=== PATIENT | female | born 1945 | race African-American/Black ===

== ENCOUNTER 2020-05-10 11:53 | Inpatient (IN) | payer MEDICARE, BC, SELFPAY ==
[2020-05-10] VITALS (18 sets, daily range): BP systolic 115–166; BP diastolic 51–76; PULSE 86–103; RESP 18–26; TEMP 36.4–36.8; O2SAT 92–100
--- NOTE | ~2020-05-10 | US_ITS ---
EXAMINATION: US abdomen complete DATE: 05/12/2020 16:05 INDICATION: Liver pathology. Ascites. TECHNIQUE: Multiple grayscale and Doppler ultrasound images of the abdomen were obtained. COMPARISON: None FINDINGS: The visualized portions of the head, body, and tail of the pancreas are normal. The liver i s normal without focal lesion. There is normal flow in main portal vein. The gallbladder is normal in size and contains gallstones. No gallbladder wall thickening or sonographic Urbina sign. The common duct is normal and measures 4 mm. The spleen is normal in size. The kidneys are normal in size. The i nferior vena cava is normal. Abdominal aorta is normal in caliber proximally. There is no ascites. Th ere is a right pleural effusion. IMPRESSION: 1. Cholelithiasis. No evidence of acute cholecystitis. 2. Right pleural effusion. Reviewed, dictated and finalized at location A. ULTING SALES EXECUTIVE
--- NOTE | ~2020-05-10 | XR_ITS ---
EXAMINATION: [id number] DATE: 05/13/2020 14:10 INDICATION: Right pleural effusion status post thoracentesis. TECHNIQUE: Frontal and lateral views of the chest were obtained. COMPARISON: Chest 2 views 05/11/2020 FINDINGS: There is a small right pleural effusion. There are airspace opacities in the lower lung zon es. No pneumothorax. There is mild scarring at left lung apex. Cardiomegaly is noted. IMPRESSION: 1. Small right pleural effusion with interval improvement. 2. Airspace opacities in the lower lung zones, consistent with atelectasis versus pneumonia. 3. Cardiomegaly. Reviewed, dictated and finalized at location A. OR ANALYTIC CONSULTANT IMPRESSION: 1. Small right pleural effusion with interval improvement. 2. Airspace opacities in the lower lung zones, consistent with atelectasis vers us pneumonia. 3. Cardiomegaly.
--- NOTE | ~2020-05-10 | US_ITS ---
EXAMINATION: US venous doppler [facility] DATE: 05/11/2020 11:11 INDICATION: Lower limb swelling TECHNIQUE: Grayscale ultrasound images without and with compression and Doppler ultrasound images of the bilateral lower extremity veins were obtained. COMPARISON: None. FINDINGS: The visualized portions of right common femoral vein, profunda (deep) femoral vein, femoral vein, pop liteal vein, posterior tibial veins, peroneal veins, gastrocnemius vein and greater saphenous vein ou tflow are patent. The visualized portions of left common femoral vein, profunda femoral vein, femoral vein, popliteal v ein, posterior tibial veins, peroneal veins, gastrocnemius vein and greater saphenous vein outflow ar e patent. IMPRESSION: 1. No deep venous thrombosis in either lower limb. Reviewed, dictated and finalized at location A. SORTER
--- NOTE | ~2020-05-10 | XR_ITS ---
EXAMINATION: XR chest 2V DATE: 05/11/2020 12:18 INDICATION: Cough, shortness of breath and wheezing TECHNIQUE: frontal and lateral views of the chest were obtained. COMPARISON: Chest radiograph dated 04/30/2018 FINDINGS: Opacity in the right mid to lower lung zone consistent with moderate sized pleural effusion and right basilar atelectasis and/or pneumonia. More subtle airspace opacity at the left lung base with obscur ation of the apex of the heart and left costophrenic angle. No pulmonary edema or pneumothorax. Cardi omegaly. Atherosclerotic aorta. Moderate degenerative skeletal changes in the spine and at both shoul ders. Surgical clips in the central abdomen. IMPRESSION: 1. Moderate-sized right pleural effusion with right basilar atelectasis and/or pneumonia. 2. Mild opacities at the lateral left lung base which could represent atelectasis, pneumonia, small l eft pleural effusion or some combination thereof. 3. Cardiomegaly. Reviewed, dictated and finalized at location A. HEALTH LPN IMPRESSION: 1. Moderate-sized right pleural effusion with right basilar atelectasis and/or pneumonia. 2. Mild opacities at the lateral left lung base which could represent atelectas is, pneumonia, small left pleural effusion or some combination thereof. 3. Cardiomegaly.
--- NOTE | ~2020-05-10 | US_ITS ---
EXAMINATION: US thoracentesis DATE: 05/13/2020 14:18 INDICATION: pleural effusion TECHNIQUE: The procedure and its risks, benefits, and alternatives were discussed with the patient. P otential risks discussed included bleeding, infection, and pneumothorax. The patient understood the r isks and agreed to proceed. The skin was prepped and draped in sterile fashion. 1% lidocaine was used for local anesthesia. Under ultrasound guidance, a 5 Fr catheter with trochar was advanced into the right pleural effusion. Fluid was aspirated. The catheter was removed, and a dressing was applied. Th ere were no immediate complications. FINDINGS: Ultrasound images demonstrate a right pleural effusion and the catheter within the fluid. IMPRESSION: 1. Successful ultrasound-guided thoracentesis yielding 850 mL of clear, yellow fluid. Reviewed, dictated and finalized at location A. BOILER OPERATOR
--- NOTE | ~2020-05-10 | CT_ITS ---
EXAMINATION: CT brain wo con DATE: 05/13/2020 10:28 INDICATION: Altered mental status. TECHNIQUE: Computed tomography (CT) of the head was performed without intravenous contrast. The mA wa s adjusted according to patient size. Iterative reconstruction technique was employed. The dose-lengt h product was 605.33 mGy-cm. COMPARISON: Head CT 01/23/2013 FINDINGS: There are scattered areas of low attenuation in the cerebral white matter. There is no intr acranial hemorrhage, acute infarction, or abnormal intracranial mass lesion. The ventricles are tae l in size. There are likely changes of at least right-sided ocular lens replacement surgery. There is mild mucosal thickening in right maxillary sinus. The mastoid air cells are normal. IMPRESSION: 1. Worsened mild nonspecific cerebral white matter disease, which likely represents chronic small ves janak ischemic disease. Reviewed, dictated and finalized at location A. TY SHERIFF LIEUTENANT IMPRESSION: 1. Worsened mild nonspecific cerebral white matter disease, which likely repres ents chronic small vessel ischemic disease.
--- NOTE | 2020-05-10 13:07 | PC.NURSE ---
Patient is a difficult stick, phlebotomy notified to come and obtain lab tests.
[2020-05-10 13:30] LABS: Mean Corpuscular HGB Conc 30.2 g/dl (32-36); Mean Corpuscular Hemoglobin 18.1 pg (26-34); Mean Corpuscular Volume 59.8 fl (80-100); Mean Platelet Volume 9.9 fl (7.4-10.4); Platelet Count Result 221 k/mm3 (150-375); Red Blood Count 2.49 M/mm3 (4.2-5.4); Red Cell Distribution Width 21.8 % (11.5-14.5); White Blood Count 5.3 K/mm3 (4.5-10.0)
[2020-05-10 13:31] LABS: Hematocrit 14.9 % (37.0-47.0); Hemoglobin 4.5 g/dL (12.0-15.0)
[2020-05-10 13:37] LABS: Alanine Aminotransferase 12 U/L (4-35); Albumin Level 3.2 g/dL (3.5-5.1); Alkaline Phosphatase 74 U/L (38-126); Anion Gap 5 mmol/L (8-16); Aspartate Amino Transferase 26 U/L (14-36); Bilirubin,Total 0.6 mg/dL (0.2-1.3); Blood Urea Nitrogen 45 mg/dL (7-17); Carbon Dioxide 19 mmol/L (22-30); Chloride 112 mmol/L (98-107); Estimated CRCL calculation 17 ml/min; Estimated Glomerular Filt Rate 28; Glucose 84 mg/dL (65-105); Sodium 136 mmol/L (137-145)
[2020-05-10 13:40] LABS: Immature Reticulocyte Fraction 22.5 % (3.0-15.9); Reticulocyte Hemoglobin Conten 15.7 pg (28.2-35.7); Reticulocyte Percent 2.09 % (0.7-4.3); Reticulocytes Absolute 0.05 B/L (32.2-175.7)
[2020-05-10 13:49] LABS: Lymphocytes Absolute Manual 0.79 K/mm3 (1.1-4.5); Monocytes Absolute Manual 0.15 K/mm3 (0.1-0.90); Monocytes Percent Manual 3 % (3-9); Neutrophils Percent Manual 82 % (46-73); Platelet Estimate Adequate (Adequate); Total Cells Counted 100
[2020-05-10 13:50] LABS: Anisocytosis 1+ (NORMAL); Hypochromasia 2+ (NORMAL); Microcytosis 1+ (NORMAL); Target Cells 2+ (NORMAL); Tear Drop Cells 1+ (NORMAL)
[2020-05-10 13:51] LABS: Macrocytosis 1+ (NORMAL); Ovalocytes 1+ (NORMAL)
--- NOTE | 2020-05-10 14:10 | ED.RECABL ---
HPI - Recheck/Abnormal Lab/Rx General Chief Complaint: Recheck/Abnormal Lab/Rx Stated Complaint: Needs Blood Transfusion Time Seen by Provider: 05/10/20 12:19 Source: patient and family Mode of arrival: ambulatory Limitations: no limitations History of Present Illness HPI narrative: 74-year-old female Presents to the ER stating that she had labs done by her primary care doctor last week and was called today and told to go to the hospital because she might need a blood transfusion She reports a long history of anemia She thinks she had a colonoscopy by Dr. Moreno a couple years ago which was not illuminating Current symptoms are generalized weakness which has been present for many weeks, a lot of diarrhea about 2 weeks ago which is now stopped but was never bloody or melanotic, easy fatigue and exertional dyspnea, and swelling in her feet Related Data Home Medications Medication Instructions Recorded Confirmed lisinopril-hydrochlorothiazide tablet 05/10/20 zolpidem 05/10/20 Allergies Allergy/AdvReac Type Severity Reaction Status Date / Time Penicillins Allergy Unknown Unknown Verified 05/10/20 12:04 Review of Systems Review of Systems: All systems reviewed & are unremarkable except as noted in HPI and below Constitutional: Constitutional: Denies chills, Reports fatigue, Denies fever(s), Denies headache(s) and Reports weakness Eyes: Eyes: Reports no additional eye complaints and Denies change in vision ENT: Denies headache(s), Denies epistaxis, Denies nasal congestion and Denies sore throat Cardiovascular: Cardiovascular: Denies chest pain, Denies leg edema, Denies palpitations and Denies dyspnea Respiratory: Respiratory: Denies cough, Reports dyspnea and Denies wheezing Gastrointestinal: Gastrointestinal: Denies abdominal pain, Reports diarrhea, Denies nausea and Denies vomiting Comments: No melena or hematochezia Genitourinary: Genitourinary: Denies hematuria, Denies urinary frequency and Denies dysuria Musculoskeletal: Musculoskeletal: Denies deformity, Denies arthralgias, Denies joint swelling, Denies muscle weakness and Denies numbness Integumentary/Breasts: Skin/Breast: Denies rash and Denies wounds Neurologic: Denies headache(s), Denies focal weakness, Denies numbness and Denies weakness Psychiatric: Psychiatric: Reports no additional psychiatric complaints Endocrine: Endocrine: Denies fatigue and Denies palpitations Hematologic/Lymphatic: Hematologic/Lymphatic: Denies easy bleeding and Denies easy bruising Allergic/Immunologic: Allergic/Immunologic: Denies wheezing PMFSH Social History Social History Second hand tobacco smoke exposure: No Alcohol intake: current Gender identity (if verbalized by the patient): Female Exam Const: General: no acute distress, well developed, alert and awake Orientation/consciousness: patient oriented x3 (alert) Other: Elderly, frail HENMT: Head: normocephalic and atraumatic Ears: external ears normal General nose exam: No nasal discharge present and no epistaxis Face and sinus: face symmetric Eyes: Conjunctivae: abnormal conjunctivae (Pale) Sclera: sclerae normal EOM: EOMs intact bilaterally Neck: Neck: normal visual inspection, supple and no JVD Chest: Chest palpation & inspection: deferred Resp: Effort & Inspection: normal respiratory effort Auscultation: clear to auscultation bilaterally, no rales, no rhonchi, no wheezes and other (BS =) Cardio: Rate: regular rate Rhythm: regular rhythm Heart sounds: no gallops and no murmurs GI: Inspection: normal to inspection GI Palp: Yes Soft to palpation and No Tenderness to palpation present (GI) Other: Soft, nontender, no masses Back/Spine/Pelvis: Thoracic/Lumbar Spine: thoracic and lumbar spine normal to inspection Skin: General skin exam: normal color and no rashes or lesions noted Neuro: General: patient oriented x3 (alert), moves all extremities and no focal motor deficits 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
--- NOTE | 2020-05-10 14:15 | PC.NURSE ---
Consent for blood transfusion form signed at this time.
[2020-05-10] MEDS: SODIUM CHLORIDE 0.9% IV 250 ML 30 ML IV CONT (14:42)
[2020-05-10] MEDS: TUBING, BLOOD PLUM PUMP TUBING 1 EACH XX (14:42)
--- NOTE | 2020-05-10 15:25 | ADMGEN ---
This patient, Alina Allen, was admitted to Medical Room 251-01. Patient/family oriented to hospital policies and general routines including ID bracelet, bed and alarms, visiting hours, pain management, procedures, bathroom and other care routines, personal items, smoking policy, room service/diet, and visiting hours. Information on how to activate the Rapid Response Team has been discussed. Patient/Family are encouraged to report perceived risks to care and to ask questions if they do not understand what they are told or what they should do.
[2020-05-10 16:19] LABS: Iron 12 ug/dL (37-170)
[2020-05-10 16:32] LABS: Percent Iron Saturation 3 % (20-50)
--- NOTE | 2020-05-10 16:57 | PM.IMHP ---
H&P: HPI History of Present Illness Date/Time: 05/10/20 16:57 Chief Complaint: low blood counts Narrative: Alina Allen is a 74 year old female who I have seen in the past. I saw her back in April 2018 when she was here with influenza pneumonia and anemia. The patient had a hemoglobin of 6.7 at that time and received a blood transfusion. The patient stated that she has chronic anemia for many years. She is also said that she has seen Dr. majano several times and that she was never told that she had a GI bleed. She does take a daily aspirin. She has quit taking naproxen since the last time that she was here. The patient has not noticed any dark stools or any blood in her stool. She is not vomiting. She is not nauseated. Patient has been feeling weak that is been going on for a while. She had diarrhea for about 2 weeks and it stopped recently but has not noticed any blood in her stool. She is easily fatigued and has exertional dyspnea and she has swelling in her feet. The patient stated that she recently went to her primary care doctor's office . She recently had some lab work. The patient was notified today from her primary care doctor's office that she needed to go to the emergency room and get a blood transfusion as her blood counts are low. She is hemodynamically stable. Her pulse ox was 94% respirations 24 pulse rate was 100 blood pressure 150/69. Her H&H was noted to be 4.5 and 14.9. Creatinine 2.1 she does have some edema to her lower extremities. She has seen Dr. stanley for peripheral vascular surgery in the past and has had procedures performed on both legs. Possibly bypass surgeries to her lower extremities. Blood transfusion has been ordered. Patient is being admitted for observation on the date of service of 05/10/2020 Review of Systems Review of Systems: All systems reviewed & are unremarkable except as noted in HPI and below Constitutional: Constitutional: Reports as per HPI and Reports no additional constitutional complaints Eyes: Eyes: Reports as per HPI and Reports no additional eye complaints ENT: Reports system reviewed and no additional complaints, except as documented and Reports Normal hearing present Cardiovascular: Cardiovascular: Reports no additional cardiovascular complaints Respiratory: Respiratory: Reports no additional respiratory complaints and Reports no additional respiratory complaints Gastrointestinal: Gastrointestinal: Reports as per HPI and Reports no additional gastrointestinal complaints Musculoskeletal: Musculoskeletal: Reports no additional musculoskeletal complaints Integumentary/Breasts: Skin/Breast: Reports system reviewed and no additional complaints, except as docu and Reports as per HPI Neurologic: Reports system reviewed and no additional complaints, except as documented, Reports as per HPI and Reports Normal hearing present Psychiatric: Psychiatric: Reports no additional psychiatric complaints and Reports as per HPI Endocrine: Endocrine: Reports no additional endocrine complaints Hematologic/Lymphatic: Hematologic/Lymphatic: Reports no additional hematologic/lymphatic complaints Allergic/Immunologic: Allergic/Immunologic: Reports no additional allergic/immunologic complaints [facility] Past Medical History Medical History (Updated 05/10/20 @ 17:11 by Valerie Katz NP) HTN (hypertension), malignant PVD (peripheral vascular disease) Surgical History Surgical History (Updated 05/10/20 @ 17:11 by Valerie Katz NP) H/O endovascular stent graft for abdominal aortic aneurysm Hx of aorto-femoral bypass Family History Family History Other Unknown family medical history Social History Social History (Updated 05/10/20 @ 17:12 by Valerie Katz NP) Social History: Patient is . She lives with her son. 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
[2020-05-10] MEDS: SODIUM CHLORIDE 0.9% IV 100 ML 30 ML (18:27)
[2020-05-10 19:15] LABS: Iron 12 ug/dL (37-170)
[2020-05-10 19:21] LABS: Lactate Dehydrogenase 470 U/L (313-618)
[2020-05-10 19:24] LABS: Percent Iron Saturation 3 % (20-50)
[2020-05-10 20:13] LABS: Vitamin B12 > 1000.0 pg/mL (239-931)
[2020-05-10] MEDS: SODIUM CHLORIDE 0.9% IV 1,000 ML 30 ML IV CONT (21:12)
[2020-05-10] MEDS: FAMOTIDINE 20 MG/2 ML VIAL IV PUSH (21:13)
[2020-05-10] MEDS: ZOLPIDEM TARTRATE (*CRX) 5 MG TABLET PO (21:13)
[2020-05-10] MEDS: ACETAMINOPHEN 325 MG TABLET 650 MG PO (21:13)
[2020-05-10] MEDS: FUROSEMIDE INJ 40 MG/4 ML VIAL 20 MG IV PUSH (21:37)
--- NOTE | 2020-05-10 21:59 | PC.NURSE ---
At 2125 Pt lying in bed with increased respirations. Resp rate is 32. Auscultated exp. wheezes. Pulse ox is 98% but pt is complaining of feeling very short of breath laying in bed. Pt is also complaining of flank pain. Notified Valerie Katz BUCKLE SORTER new orders received and being followed through. Will monitor pt closely. Bed exit alarm activated call light in reach.
[2020-05-10 23:38] LABS: Add Urine Microscopic? YES; Appearance Urine Clear (Clear); Bacteria Urine Trace /hpf; Bilirubin Urine Negative (Negative); Blood Urine Negative (Negative); Color Urine Yellow (Yellow); Glucose Urine UA Negative (Negative); Ketones Urine Negative (Negative); Leukocyte Esterase Ur Trace LEU/UL (Negative); Mucus Urine Rare /lpf; Nitrate Urine Negative (Negative); Protein Urine 1+ mg/dL (Negative); RBC Urine 0-2 /hpf (0-2); Specific Grav Ur 1.012 (1.001-1.035); Squamous Epithelial Cell Urine Many /hpf (Few); Urobilinogen Urine Negative mg/dL (<2.0)
[2020-05-10 23:49] LABS: Hematocrit 27.9 % (37.0-47.0); Hemoglobin 9.1 g/dL (12.0-15.0)
[2020-05-11] VITALS (9 sets, daily range): BP systolic 137–153; BP diastolic 53–65; PULSE 82–92; RESP 16–21; TEMP 36.4–36.7; O2SAT 94–100; BMI 23.1
[2020-05-11 06:27] LABS: Hematocrit 29.7 % (37.0-47.0); Hemoglobin 9.4 g/dL (12.0-15.0)
[2020-05-11 06:42] LABS: Lactate Dehydrogenase 520 U/L (313-618)
[2020-05-11 06:49] LABS: Transferrin 350 mg/dL (206-381)
[2020-05-11 07:36] LABS: Iron 27 ug/dL (37-170)
[2020-05-11 07:45] LABS: Percent Iron Saturation 7 % (20-50)
[2020-05-11 07:52] LABS: Folic Acid > 20.0 ng/mL (2.76->20); Vitamin B12 > 1000.0 pg/mL (239-931)
[2020-05-11] MEDS: hydroCHLOROthiazide 12.5 MG CAPSULE PO (08:10)
[2020-05-11] MEDS: FAMOTIDINE 20 MG/2 ML VIAL IV PUSH ×2 (08:10→22:02)
[2020-05-11] MEDS: lisinopriL 20 MG TABLET PO (08:10)
[2020-05-11 08:13] LABS: Ferritin 6.51 ng/mL (11.1-264)
[2020-05-11] MEDS: IRON SUCROSE COMPLEX 200 MG in SODIUM CHLORIDE 0.9% IV 50 ML 120 MG IVPB (09:20)
--- NOTE | 2020-05-11 11:17 | PCOTNOTE ---
Attempted OT evaluation [[id number]]. Patient refused any/all activity at this time due to being too comfortable in bed . Explained to the patient the importance of activity and therapy while she's here in the hospital. Patient continued to decline. Will continue to attempt as able.
--- NOTE | 2020-05-11 11:23 | PM.IMPN ---
Progress Note: A&P Assessment and Plan (1) Severe anemia: Code(s): D64.9 - Anemia, unspecified Status: Acute Assessment and Plan: Patient presents from PCP office due to low Hgb on outpatient labs. Hgb 4.5 on arrival. She received 2 units packed RBC 05/10. Hgb remains low but stable at 9.4 this morning. No evidence of acute bleeding at this time, obtain stool occult blood. Iron panel suggestive of iron deficiency anemia. Start IV Venofer today. Hematology consulted by ED provider, appreciate recommendations. Continue to monitor CBC daily and consider transfusion for Hgb less than 7. (2) PVD (peripheral vascular disease): Code(s): I73.9 - Peripheral vascular disease, unspecified Status: Chronic Assessment and Plan: Patient follows with Dr Carrillo for peripheral vascular surgeries. Per patient, last vascular stent placement in CANDE legs was October 2019, and she believes she saw him in the office last week. Feet and lower extremities with pitting edema. Venous dopplers this AM are negative for DVT in CANDE lower extremities. (3) Shortness of breath: Code(s): R06.02 - Shortness of breath Status: Chronic Assessment and Plan: Patient notes feeling short of breath for nearly 6 months, unchanged. Given her wheezing, shortness of breath - ordered chest XR. Given her concomitant leg swelling - ordered echocardiogram. She denies history of heart disease. Albuterol MDI as needed. (4) Hypertension: Qualifiers: Hypertension type: essential hypertension Qualified Code(s): I10 - Essential (primary) hypertension Code(s): I10 - Essential (primary) hypertension Status: Chronic Assessment and Plan: Continue lisinopril. Hold HCTZ due to renal function. BPs slightly elevated last 153/65 this AM. Monitor BP and adjust treatment as needed. (5) CKD (chronic kidney disease): Code(s): N18.9 - Chronic kidney disease, unspecified Status: Chronic Assessment and Plan: Cr is 2.1 on arrival. Her baseline renal function recently is unclear although she has a documented Cr 1.3 in 2019. Monitor renal function. Continue lisinopril for now. Hold HCTZ. Monitor renal function in AM. Subjective Date/time seen: 05/11/20 0900 Interval history: Ms. Allen is a 74yo F sent from PCP office for low H&H, admitted for profound anemia. She reports feeling weak and tired for months . She describes having one vascular stent put in each leg in October 2019, and around December 2019 began to feel short of breath. She describes feeling short of breath daily since December and her SOB today is at her baseline, not any better or any worse than her normal. She denies chest pain. When asked if she sleeps flat or propped on pillows, she replies I don't sleep . She reports CANDE leg swelling since her vascular procedure last year (several months), also not worse than her normal per patient. She reports using a cane and walker at home but is not able to get around well. She reports having diarrhea on and off for a couple weeks recently but this has stopped, last BM yesterday was normal per patient. She denies red or black appearing blood in stool. Denies nausea or vomiting. Denies rash or bruises. Review of Systems Review of Systems: All systems reviewed & are unremarkable except as noted in HPI and below Exam Narrative: Exam Narrative: General: Female resting comfortably semi-douglas's position in bed in no acute distress. HEENT: Normocephalic, EOMI, oral mucosa tacky. Cardiovascular: Rate and rhythm are regular. Respiratory: Diminished breath sounds and faint expiratory wheeze throughout all fleming. Respirations even and mildly labored. Tolerating room air. Abdomen: S
[2020-05-11] MEDS: ACETAMINOPHEN 325 MG TABLET 650 MG PO (11:43)
[2020-05-11] MEDS: ONDANSETRON INJ 4 MG/2 ML VIAL IV PUSH (11:49)
[2020-05-11] MEDS: polyethylene glycoL 3350 17 GM POWD.PACK PO (11:49)
--- NOTE | 2020-05-11 13:50 | PCPTNOTE ---
Orders received...patient refused OT this morning...this afternoon, patient declined multiple invitations to walk and/or sit in a chair...will see tomorrow as able
[2020-05-11] MEDS: FUROSEMIDE INJ 40 MG/4 ML VIAL 20 MG IV PUSH (17:34)
[2020-05-11 20:33] LABS: Anion Gap 6 mmol/L (8-16); Blood Urea Nitrogen 41 mg/dL (7-17); Calcium 7.7 mg/dL (8.4-10.2); Carbon Dioxide 22 mmol/L (22-30); Chloride 110 mmol/L (98-107); Estimated CRCL calculation 18 ml/min; Estimated Glomerular Filt Rate 31; Glucose 93 mg/dL (65-105); Magnesium 2.2 mg/dL (1.6-2.3); Potassium 4.1 mmol/L (3.4-5.0); Sodium 138 mmol/L (137-145)
[2020-05-11] MEDS: ZOLPIDEM TARTRATE (*CRX) 5 MG TABLET PO (22:02)
[2020-05-12] VITALS (9 sets, daily range): BP systolic 112–136; BP diastolic 47–64; PULSE 81–92; RESP 16–20; TEMP 36.4–36.9; O2SAT 92–98; BMI 23.1
--- NOTE | 2020-05-12 | ECHO_ITS ---
Patient Info Name: Alina Allen Age: 74 years : 1945 Gender: Female Ht: 62 in Wt: 126 lbs BSA: 1.59 m2 HR: 85 bpm BP: 113 / 53 mmHg Heart Rhythm: Sinus Rhythm Technical Quality: Good Exam Date: 05/12/2020 10:41 AM Exam Location: [facility] Patient Status: Inpatient Admit Date: 05/10/2020 Staff Ordering Physician: Samuel Chan MD Gun Examiner: Saurabh Alcantar RDCS Attending Provider: Asya Saini PA-C Referring Physician: Dustin FLOYD; Exam Type: CA echo doppler color flow Study Info Indications R06.02 - Shortness of breath Complete two-dimensional, color flow and Doppler transthoracic echocardiogram is performed. Strain analysis performed. History/Risk Factors Shortness of breath; HTN, anemia, CKD. Summary 1. Complete two-dimensional, color flow and Doppler transthoracic echocardiogram is performed. 2. Left ventricular chamber dimension is mildly enlarged. 3. Left ventricular systolic function is moderately reduced, estimated at 35-40%. 4. The left ventricular diastolic function is grade I diastolic dysfunction. 5. Biatrial dilation. 6. Mild Mitral, tricuspid and pulmonic regurgitation. Left Ventricle Left ventricular chamber dimension is mildly enlarged. Left ventricular systolic function is moderately reduced, estimated at 35-40%. There is moderate concentric increased left ventricular wall thickness. The left ventricular diastolic function is grade I diastolic dysfunction. Right Ventricle Right ventricular chamber dimension is normal. Left Atria Left atrial chamber dimension is moderately enlarged. Right Atria Right atrial chamber dimension is moderately enlarged. Aortic Valve The aortic valve is normal. Pulmonic Valve The pulmonic valve is normal. There is mild pulmonic regurgitation. Mitral Valve The mitral valve has normal leaflets. There is mild mitral valve regurgitation. Tricuspid Valve The tricuspid valve leaflets are normal. There is mild tricuspid valve regurgitation. Pericardium/Pleural The pericardium appears normal. Aorta The aortic root size at the sinus of Valsalva is normal. Left Ventricular Outflow Tract Name Value Normal LVOT 2D LVOT Diameter 1.7 cm LVOT Doppler LVOT Peak Gradient 4 mmHg LVOT Mean Gradient 2 mmHg LVOT VTI 16 cm LVOT VTI/AV VTI Ratio 0.7 LVOT Stroke Volume 38 ml LVOT CO 3.3 l/min LVOT CI 2.1 l/min/m2 Mitral Valve Name Value Normal MV Doppler MV Decel [place] 444 cm/s2 MV PHT 53 ms MV Area (PHT) 4.1 cm2 4.0-5.0 MV Diasto
[2020-05-12 05:59] LABS: Basophils Absolute Auto 0.1 K/mm3 (0.0-0.1); Basophils Percent Auto 0.8 % (0.2-1.2); Eosinophils Absolute Auto 0.5 K/mm3 (0-0.3); Eosinophils Percent Auto 4.9 % (0-4.4); Hematocrit 27.3 % (37.0-47.0); Hemoglobin 8.5 g/dL (12.0-15.0); Immature Granulocyte Absolute 0.13 K/mm3 (0.00-0.031); Immature Granulocyte Percent A 1.4 % (0-0.5); Immature Platelet Fraction Pct 3.8 % (0.9-11.2); Lymphocytes Absolute Auto 0.67 K/mm3 (0.9-3.2); Lymphocytes Percent Auto 7.3 % (18.3-44.2); Mean Corpuscular HGB Conc 31.1 g/dl (32-36); Mean Corpuscular Hemoglobin 21.9 pg (26-34); Mean Corpuscular Volume 70.4 fl (80-100); Mean Platelet Volume 9.4 fl (7.4-10.4); Monocytes Percent Auto 10.7 % (2.6-8.5); Neutrophils Absolute Auto 6.9 K/mm3 (1.3-6.7); Neutrophils Percent Auto 74.9 % (45.5-73.1); Nucleated Red Blood Cells Absolute Auto 0.1 K/mm3 (0.0-0.012); Platelet Count Result 233 k/mm3 (150-375); Red Blood Count 3.88 M/mm3 (4.2-5.4); Red Cell Distribution Width 27.9 % (11.5-14.5); White Blood Count 9.2 K/mm3 (4.5-10.0)
[2020-05-12 06:02] LABS: Alanine Aminotransferase 10 U/L (4-35); Albumin Level 2.7 g/dL (3.5-5.1); Alkaline Phosphatase 65 U/L (38-126); Anion Gap 3 mmol/L (8-16); Aspartate Amino Transferase 24 U/L (14-36); Bilirubin,Total 0.9 mg/dL (0.2-1.3); Blood Urea Nitrogen 40 mg/dL (7-17); Calcium 7.7 mg/dL (8.4-10.2); Carbon Dioxide 24 mmol/L (22-30); Chloride 110 mmol/L (98-107); Estimated CRCL calculation 18 ml/min; Estimated Glomerular Filt Rate 29; Glucose 71 mg/dL (65-105); Magnesium 2.2 mg/dL (1.6-2.3); Potassium 4.5 mmol/L (3.4-5.0); Sodium 137 mmol/L (137-145)
[2020-05-12] MEDS: FAMOTIDINE 20 MG/2 ML VIAL IV PUSH ×2 (08:44→20:53)
[2020-05-12] MEDS: lisinopriL 20 MG TABLET PO (08:44)
[2020-05-12] MEDS: IRON SUCROSE COMPLEX 200 MG in SODIUM CHLORIDE 0.9% IV 50 ML 120 MG IVPB (08:44)
--- NOTE | 2020-05-12 10:50 | P.PNIM_ITS ---
Progress Note: A&P Assessment and Plan (1) Severe anemia: Code(s): D64.9 - Anemia, unspecified Status: Acute Assessment and Plan: * Patient presents from PCP office due to low Hgb on outpatient labs. Hgb 4.5 on arrival. She received 2 units packed RBC 05/10. * Hgb remains low but stable at 8.5 this morning. No evidence of acute bleeding at this time, obtain stool occult blood. * Iron panel suggestive of iron deficiency anemia. 200mg IV venofer yesterday and today. Hematology consulted by ED provider, appreciate recommendations. * Continue to monitor CBC. (2) PVD (peripheral vascular disease): Code(s): I73.9 - Peripheral vascular disease, unspecified Status: Chronic Assessment and Plan: * Patient follows with Dr Carrillo for peripheral vascular surgeries. Per patient, last vascular stent placement in CANDE legs was October 2019, and she believes she saw him in the office last week. * Feet and lower extremities with pitting edema she reports have been like this x6 months. Venous dopplers this AM are negative for DVT in CANDE lower extremities. (3) Pleural effusion: Code(s): J90 - Pleural effusion, not elsewhere classified Status: Acute Assessment and Plan: * I suspect this is the likely cause for her shortness of breath. Chronicity is unclear since she has been short of breath x 6 months. Stable, not hypoxic. * CXR with moderate right pleural effusion, cardiomegaly. * Obtain echocardiogram today. Differential includes transudative from heart failure (no documented history of HF - awaiting echo), cirrhosis or other liver disease (obtain abdominal ultrasound today), or malignancy. Other po ssible differentials that seem less likely are trauma/hemothorax (no injury or trauma to suggest this), or infectious process (no fever, leukocytosis, cough). * Obtain abdominal ultrasound today to assess for any possible hepatic pathology, if unremarkable may consider diagnostic+therapeutic thoracentesis. * Has gotten 20mg IV Lasix x 2, monitor renal function closely. (4) Hypertension: Qualifiers: Hypertension type: essential hypertension Qualified Code(s): I10 - Essential (primary) hypertension Code(s): I10 - Essential (primary) hypertension Status: Chronic Assessment and Plan: * BPs stable last 113/53. Continue lisinopril. Hold HCTZ due to renal function. Monitor BP and adjust treatment as needed. (5) CKD (chronic kidney disease): Qualifiers: Chronic kidney disease stage 3 subtype: stage 3b (GFR 30-44) Chronic kidney disease stage: stage 3 (moderate) Qualified Code(s): N18.32 - Chronic kidney disease, stage 3b Code(s): N18.9 - Chronic kidney disease, unspecified Status: Chronic Assessment and Plan: * Cr is 2.1 on arrival. Her baseline renal function recently is unclear although she has a documented Cr 1.3 in 2019. * Monitor renal function. Continue lisinopril for now. Hold HCTZ. Monitor renal function in AM. (6) NSVT (nonsustained ventricular tachycardia): Code(s): I47.2 - Ventricular tachycardia Status: Acute Assessment and Plan: * Isolated event of 12-beat run of nonsustained arrhythmia on telemetry [facility] around 1830 yesterday. Patient was asymptomatic. * Covering attending consulted cardiology - appreciate recommendations. Echocardiogram pending.
--- NOTE | 2020-05-12 10:50 | PM.IMPN ---
Progress Note: A&P Assessment and Plan (1) Severe anemia: Code(s): D64.9 - Anemia, unspecified Status: Acute Assessment and Plan: Patient presents from PCP office due to low Hgb on outpatient labs. Hgb 4.5 on arrival. She received 2 units packed RBC 05/10. Hgb remains low but stable at 8.5 this morning. No evidence of acute bleeding at this time, obtain stool occult blood. Iron panel suggestive of iron deficiency anemia. 200mg IV venofer yesterday and today. Hematology consulted by ED provider, appreciate recommendations. Continue to monitor CBC. (2) PVD (peripheral vascular disease): Code(s): I73.9 - Peripheral vascular disease, unspecified Status: Chronic Assessment and Plan: Patient follows with Dr Carrillo for peripheral vascular surgeries. Per patient, last vascular stent placement in CANDE legs was October 2019, and she believes she saw him in the office last week. Feet and lower extremities with pitting edema she reports have been like this x6 months. Venous dopplers this AM are negative for DVT in CANDE lower extremities. (3) Pleural effusion: Code(s): J90 - Pleural effusion, not elsewhere classified Status: Acute Assessment and Plan: I suspect this is the likely cause for her shortness of breath. Chronicity is unclear since she has been short of breath x 6 months. Stable, not hypoxic. CXR with moderate right pleural effusion, cardiomegaly. Obtain echocardiogram today. Differential includes transudative from heart failure (no documented history of HF - awaiting echo), cirrhosis or other liver disease (obtain abdominal ultrasound today), or malignancy. Other possible differentials that seem less likely are trauma/hemothorax (no injury or trauma to suggest this), or infectious process (no fever, leukocytosis, cough). Obtain abdominal ultrasound today to assess for any possible hepatic pathology, if unremarkable may consider diagnostic+therapeutic thoracentesis. Has gotten 20mg IV Lasix x 2, monitor renal function closely. (4) Hypertension: Qualifiers: Hypertension type: essential hypertension Qualified Code(s): I10 - Essential (primary) hypertension Code(s): I10 - Essential (primary) hypertension Status: Chronic Assessment and Plan: BPs stable last 113/53. Continue lisinopril. Hold HCTZ due to renal function. Monitor BP and adjust treatment as needed. (5) CKD (chronic kidney disease): Qualifiers: Chronic kidney disease stage 3 subtype: stage 3b (GFR 30-44) Chronic kidney disease stage: stage 3 (moderate) Qualified Code(s): N18.32 - Chronic kidney disease, stage 3b Code(s): N18.9 - Chronic kidney disease, unspecified Status: Chronic Assessment and Plan: Cr is 2.1 on arrival. Her baseline renal function recently is unclear although she has a documented Cr 1.3 in 2019. Monitor renal function. Continue lisinopril for now. Hold HCTZ. Monitor renal function in AM. (6) NSVT (nonsustained ventricular tachycardia): Code(s): I47.2 - Ventricular tachycardia Status: Acute Assessment and Plan: Isolated event of 12-beat run of nonsustained arrhythmia on telemetry monitoring around 1830 yesterday. Patient was asymptomatic. Covering attending consulted cardiology - appreciate recommendations. Echocardiogram pending. Subjective Date/time seen: 05/12/20 10:00 Interval history: Ms. Allen is a 74yo F sent from PCP office for low H&H, admitted for profound anemia. She reports feeling weak and tired for months . She describes having one vascular stent put in each leg in October 2019, and around December 2019 began to feel short of breath. She describes feeling s
--- NOTE | 2020-05-12 13:21 | PCNSR ---
On 05/12/20, the student, Lesvia Dahl, provided care and completed [facility] documentation on this patient. I have reviewed the student's documentation and agree with the findings.
--- NOTE | 2020-05-12 13:59 | ECG_ITS ---
Measurements Intervals [place] Rate: 83 P: 58 HI: 120 QRS: 90 QRSD: 88 T: 89 QT: 346 QTc: 408 Interpretive Statements SINUS RHYTHM LOW QRS VOLTAGE IN LIMB LEADS ANTEROSEPTAL INFARCT, AGE INDETERMINATE BORDERLINE ST-T WAVE ABNORMALITY- INF/LAT LEADS BASELINE ARTIFACT- AVL, AVF ABNORMAL ECG Electronically Signed On 05-12-2020 14:25:55 [employer] TECHNICIAN by Gael Steward D.O.
--- NOTE | 2020-05-12 14:00 | PM.CNCAR ---
Assessment and Plan Additional Plan This is a 74-year-old lady with: Severe symptomatic microcytic anemia no overt evidence of bleeding and previous GI evaluation seems to have been unrevealing in this evaluation. In this setting she was placed on telemetry in the hospital and there was self-limited episode of a wide complex tachycardia noted yesterday afternoon. There does appear to be retrograde atrial activation on the telemetry strip indicating this is probably not ventricular tachycardia. She has never had a syncopal episode and has no other significant cardiac history. An echocardiogram has been ordered but has yet to be performed. At this point I will review the echocardiogram and provide further recommendations if necessary but I there is no need to initiate treatment of this asymptomatic arrhythmia at this time. Of course the principal efforts should be to try to identify the reason for this patient's profound anemia. Nico Leblanc MD [facility] History of Present Illness History of Present Illness Consult date/time: 05/12/20 14:00 Reason For Visit: severe anemia Narrative: This is a 74-year-old lady am seeing today at the request of the hospitalist for evaluation of arrhythmias noted on telemetry. She was admitted to the hospital on Tuesday after seeing her PCP in the office because of severe anemia. She apparently was there on a Tuesday for an appointment or least got lab test done and was found to be profoundly anemic and was directed to the emergency room. She has complaints of generalized weakness and some shortness of breath and had a hemoglobin of 4.5 with markedly microcytic indices. Apparently she is known to be chronic anemic with a hemoglobin that is in between 8 and 9 g and microcytic indices for a long time. She has had GI evaluations done according to the chart with no pathology that explains this being identified. I do not see that event marketing representative has seen her previously but they have been consulted during this hospitalization. The patient well upon the floor has been placed on telemetry, the reason that she is on telemetry is not specified in the chart. Yesterday at about 4:30 p.m. she while in sinus rhythm had a self-limited episode where there was a wide complex tachycardia identified persisted for about 2 seconds. There appears to be evidence of retrograde atrial activation although a 12 lead ECG of this was of course not performed as there is not a resting 12 lead in the chart for my review. She denies any history of cardiac problems in the past. She does have a longstanding history of cigarette smoking and has peripheral vascular disease on having undergone lower extremity revascularization last summer. This was performed at another hospital I do not have any of those details but she states that since then she feels like she is going downhill . The patient is on low-dose aspirin at home she is on no other anti-platelet or anticoagulation medications. She has noticed no bleeding no melena hematochezia hemoptysis hematemesis. She has denies any complaints of chest pain orthopnea PND edema or syncope. Review of Systems Constitutional: Constitutional: Reports lethargy and Reports weakness Eyes: Eyes: Reports no additional eye complaints ENT: Reports system reviewed and no additional complaints, except as documented Cardiovascular: Cardiovascular: Reports no additional cardiovascular complaints Respiratory: Respiratory: Reports dyspnea on exertion Gastrointestinal: Gastrointestinal: Reports no additional gastrointestinal complaints Musculoskeletal: Musculoskeletal: Reports no additional musculoskeletal complaints Neurologic: Reports system reviewed and no additional complaints, except as documented Hematologic/Lymphatic: Hematologic/Lymphatic: Reports no additional hematologic/lymphatic complaints Allergic/Immunologic: Allergic/Immunologic: Reports no additional allergic/immunologic complaints [facility]
--- NOTE | 2020-05-12 15:54 | WPDGICN ---
Assessment and Plan Assessment and plan (1) LINNETTE (iron deficiency anemia): Code(s): D50.9 - Iron deficiency anemia, unspecified Status: Acute Assessment and Plan: Patient with profound anemia. Is to have iron deficient indices. Patient has had recurrent GI evaluations in the past. Currently denies any obvious GI blood loss. I have offered to repeat colonoscopy an EGD however she refuses to pursue this at the present time. Agree with checking stool Hemoccult. Hematology consult would be of some benefit. Ultimately iron replacement as necessary as she has not been on iron replacement for quite some time. Would also recommend a small bowel capsule endoscopy to exclude any small bowel lesions. Previous small-bowel series has identified small bowel diverticular disease but no evidence of bleeding has been identified in this area. (2) Pleural effusion: Code(s): J90 - Pleural effusion, not elsewhere classified Status: Acute Assessment and Plan: Pleural effusion identified by scanning suggest that this may contribute to her current weakness. Will need to be followed with follow-up chest x-rays. (3) CKD (chronic kidney disease): Qualifiers: Chronic kidney disease stage: stage 3 (moderate) Chronic kidney disease stage 3 subtype: stage 3b (GFR 30-44) Qualified Code(s): N18.32 - Chronic kidney disease, stage 3b Code(s): N18.9 - Chronic kidney disease, unspecified Status: Chronic (4) PVD (peripheral vascular disease): Code(s): I73.9 - Peripheral vascular disease, unspecified Status: Chronic (5) History of colon polyps: Code(s): Z86.010 - Personal history of colonic polyps Status: Acute Assessment and Plan: Patient does have a history of colon polyps. Most recent colonoscopy 2019 did not see any recurrent polyps at that time. GI Consult Note Consult date/time: 05/12/20 15:54 HPI: Alina Allen is a 74 year old female I am asked to see for iron deficiency anemia. Patient presented to the hospital on referral from primary care service with profound anemia. Patient was found to have iron deficiency indices. Patient has had recurring iron deficiency since prior to 2013. She has undergone GI evaluation on numerous occasions. In the past has been found to have colon polyps although none were identified on last exam in 2019. A small gastric erosion was identified by EGD in 2019. Patient has had a small-bowel follow-through in the past which confirms small-bowel diverticula as well as colonic diverticulosis. In 2019 stool was Hemoccult positive. At the present time patient denies any obvious GI blood loss. Stool Hemoccult is pending at this time. Patient denies abdominal pain. She states her appetite is normal. Patient has had difficulties with peripheral vascular disease and has undergone vascular stenting recently. She feels somewhat weaker after this has been accomplished. She has had some cardiac dysrhythmias currently followed by cardiology service. Patient denies any as stated patient denies any obvious GI blood loss but also denies nose bleeds bruises or blood in her urine. Review of Systems Review of Systems: All systems reviewed & are unremarkable except as noted in HPI and below PMFSH Past Medical History Medical History Hypertension PVD (peripheral vascular disease) Surgical History Surgical History (Updated 05/10/20 @ 17:11 by Valerie Katz NP) H/O endovascular stent graft for abdominal aortic aneurysm Hx of aorto-femoral bypass Family History Family History Other Unknown family medical history Social History Social History (Updated 05/10/20 @ 17:12 by Valerie Katz NP) Social History: Patient is . She lives with her son. 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
--- NOTE | 2020-05-12 17:10 | PM.CNNEP ---
Assessment and Plan Assessment and plan (1) CKD (chronic kidney disease): Qualifiers: Chronic kidney disease stage: stage 3 (moderate) Chronic kidney disease stage 3 subtype: stage 3b (GFR 30-44) Qualified Code(s): N18.32 - Chronic kidney disease, stage 3b Code(s): N18.9 - Chronic kidney disease, unspecified Status: Chronic Assessment and Plan: Diogo has chronic kidney disease. Her creatinine was 1.3 2 years ago. This is probably related to her hypertension and probably vascular disease as well. She continues to smoke so it is not surprising that she might have progressed over the 2 years from a creatinine of 1.3 to a creatinine of 2.1 So this might just be chronic progression of her kidney disease or it could be acute kidney injury Will check serology immunofixation and a renal ultrasound (2) Acute kidney injury: Code(s): N17.9 - Acute kidney failure, unspecified Status: Acute Assessment and Plan: It is possible she has acute kidney injury. The patient does have severe anemia and so could have a prerenal component. It is unlikely that she has a glomerulonephritis. Interstitial nephritis is also unlikely because she has not been on any medicines as an outpatient. Will check urine electrolytes and eosinophils and a renal ultrasound (3) Severe anemia: Code(s): D64.9 - Anemia, unspecified Status: Acute Assessment and Plan: Hemoglobin is very low. GI has been consulted. The patient received blood transfusions. She is on a PPI (4) PVD (peripheral vascular disease): Code(s): I73.9 - Peripheral vascular disease, unspecified Status: Chronic Assessment and Plan: Patient has peripheral vascular disease documented in her lower extremities. She continues to smoke (5) Hypertension: Qualifiers: Hypertension type: essential hypertension Qualified Code(s): I10 - Essential (primary) hypertension Code(s): I10 - Essential (primary) hypertension Status: Chronic Assessment and Plan: Blood pressure has been somewhat variable with a systolic ranging from 113-166 She has not had any extremely low or extremely high measurements while here. (6) LINNETTE (iron deficiency anemia): Code(s): D50.9 - Iron deficiency anemia, unspecified Status: Acute Assessment and Plan: She has anemia. This is most likely due to GI blood loss. It is possible that renal insufficiency may be playing a role in decreased manufacture of red cells as well. Will check iron levels. She is getting iron supplements. History of Present Illness Reason for Consult Consult date: 05/12/20 Chief Complaint Chief complaint: severe anemia History of Present Illness Narrative: Diogo is a very pleasant 74-year-old lady who has hypertension, peripheral vascular disease status post stents in her femoral arteries twice in the last couple of years, GI bleeding, who came to the hospital because of low blood counts. She went to see Dr. Trejo she had weakness, exertional dyspnea, and swelling in her feet. There she had some blood work which showed that her creatinine was elevated and hemoglobin was low. The office called her and told her to go straight to the emergency room. Here the hemoglobin was only 4 and creatinine was 2.1. She was admitted and given IV fluids and transfusions. Her hemoglobin is better but her creatinine did not improve so renal consultation was requested. She said that she has never had any kidney problems before. No or the is that in April of 2018 her creatinine was 1.3. She does not have any bloody urine, foamy urine, kidney stones, or bladder infections. She does not have pain with urination. She does not take any nonsteroidal anti-inflammatory agents. She used to take those but in the last hospital stay she was told to stop them and she has not started taking them again. The patient is on the same medi
--- NOTE | 2020-05-12 17:37 | PDONCCN ---
HPI - Date of Consult Date/Time: 05/12/20 17:37 Requesting Physician: EDGAR Guerin Primary Care Provider: Tricia Trejo, - Consult Narrative Reason for consult: Severe anemia Narrative: Alina Allen is a 74 year old female with history of peripheral vascular disease status post stent placement came into the hospital with extreme tiredness and fatigue. According to the patient she has history of chronic anemia and had seen Dr. Moreno in the past. Her labs showed hemoglobin of 4.5 and creatinine of 2.1. She denies any previous history of Uy[place] disease. She denies any melena hematochezia. She denies any recent weight loss. He was complaining of bilateral lower extremity swelling. Patient also complain of dyspnea on exertion. Review of Systems - Review of Systems All systems reviewed & are unremarkable except as noted in HPI and bel - Neurologic Reports system reviewed and no additional complaints, except as documented, Reports hearing normal, Reports weakness, Denies headache(s), Denies focal weakness, Denies numbness [facility] Medical History: Medical History (Last Updated 05/12/20 @ 17:17 by Joshua Motley MD) Acute kidney injury Hypertension PVD (peripheral vascular disease) Surgical History: Surgical History (Last Reviewed 05/12/20 @ 17:16 by Joshua Motley MD) H/O endovascular stent graft for abdominal aortic aneurysm Hx of aorto-femoral bypass Family History: Family History (Last Reviewed 05/12/20 @ 17:16 by Joshua Motley MD) Other Unknown family medical history - Social History Social History: Social History (Last Reviewed 05/12/20 @ 17:16 by Joshua Motley MD) Gender Identity: Gender identity (if verbalized by the patient): Female Sexual Orientation: Sexual Orientation (if Verbalized by the Patient): Straight or Heterosexual Alcohol Use: Alcohol intake: former Drinks per week: 2 Substance Use: Substance use: never Substance use type: does not use Others: Spiritual care concerns: No Smoking Status: Smoking status: Current every day smoker Tobacco type: cigarettes Second hand tobacco smoke exposure: No Smoking Pack-years: Smoking packs per day: 0.5 Smoking cigarettes per day: 10.0 Years smoked: 60 Smoking pack-years: 30.00 Meds Home Medications Medication Instructions Recorded Confirmed Type aspirin [Adult Aspirin] 81 mg PO DAILY 05/10/20 05/10/20 History lisinopril-hydrochlorothiazide 1 tablet PO DAILY 05/10/20 05/10/20 History zolpidem 5 mg PO HS PRN 05/10/20 05/10/20 History Allergies Allergy/AdvReac Type Severity Reaction Status Date / Time Penicillins Allergy Unknown Unknown Verified 05/10/20 16:07 Results - Labs CBC & Chem 7: 05/12/20 05:03 05/12/20 05:03 Labs: Short CBC 05/12/20 Range/Units 05:03 WBC 9.2 (4.5-10.0) K/mm3 Hgb 8.5 L (12.0-15.0) g/dL Hct 27.3 L (37.0-47.0) % Plt Count 233 (150-375) k/mm3 BMP 05/11/20 05/12/20 20:12 05:03 Sodium 138 137 Potassium 4.1 4.5 Chloride 110 H 110 H Carbon Dioxide 22 24 BUN 41 H 40 H Creatinine 1.90 H 2.00 H Glucose 93 71 Calcium 7.7 L 7.7 L Liver Function 05/12/20 Range/Units 05:03 Total Bilirubin 0.9 (0.2-1.3) mg/dL AST 24 (14-36) U/L ALT 10 (4-35) U/L Alkaline Phosphatase 65 (38-126) U/L Albumin 2.7 L (3.5-5.1) g/dL Assessment and Plan - Additional Plan Microcytic anemia with normal WBC and platelet count. Patient denies any bleeding including melena hematochezia. She has seen Dr. Cross in Gastroenterology consultation the past. Other labs also shows renal insufficiency. She denies any previous history of kidney disease. Patient does have bilateral lower extremity edema. She has history of peripheral vascular disease. Labs reviewed that showed iron deficiency. Reticulocyte% is normal with normal LDH. C
[2020-05-12] MEDS: EPOETIN ALFA-EPBX 10,000 UNITS/ML VIAL 10000 UNITS SUB-Q (20:15)
[2020-05-13] VITALS (11 sets, daily range): BP systolic 130–169; BP diastolic 47–86; PULSE 84–100; RESP 18–20; TEMP 36.3–36.7; O2SAT 93–99
[2020-05-13 01:41] LABS: Total Protein Urine Random 22 mg/dL; Ur Ttl Prot Creatinine Ratio 0.12 mg/mg (0-0.20)
[2020-05-13 02:18] LABS: Sodium Urine Random 11 meq/L
[2020-05-13 03:21] LABS: IFOB Positive Control Positive; Immunochemical Fecal Occult Bl Positive (N)
[2020-05-13 08:21] LABS: Basophils Absolute Auto 0.1 K/mm3 (0.0-0.1); Basophils Percent Auto 0.7 % (0.2-1.2); Eosinophils Absolute Auto 0.4 K/mm3 (0-0.3); Eosinophils Percent Auto 4.4 % (0-4.4); Hematocrit 29.8 % (37.0-47.0); Immature Granulocyte Percent A 1.1 % (0-0.5); Immature Platelet Fraction Pct 3.4 % (0.9-11.2); Lymphocytes Absolute Auto 0.65 K/mm3 (0.9-3.2); Lymphocytes Percent Auto 7.1 % (18.3-44.2); Mean Corpuscular HGB Conc 30.2 g/dl (32-36); Mean Corpuscular Hemoglobin 21.8 pg (26-34); Mean Corpuscular Volume 72.3 fl (80-100); Mean Platelet Volume 8.8 fl (7.4-10.4); Monocytes Absolute Auto 0.9 K/mm3 (0.1-0.6); Monocytes Percent Auto 10.3 % (2.6-8.5); Neutrophils Percent Auto 76.4 % (45.5-73.1); Nucleated Red Blood Cells Absolute Auto 0.1 K/mm3 (0.0-0.012); Nucleated Red Blood Cells Perc 1.1 % (0.0-0.2); Platelet Count Result 257 k/mm3 (150-375); Red Blood Count 4.12 M/mm3 (4.2-5.4); Red Cell Distribution Width 28.9 % (11.5-14.5); White Blood Count 9.2 K/mm3 (4.5-10.0)
[2020-05-13 08:34] LABS: Alanine Aminotransferase 12 U/L (4-35); Albumin Level 3.4 g/dL (3.5-5.1); Alkaline Phosphatase 80 U/L (38-126); Amylase 63 U/L (30-110); Anion Gap 5 mmol/L (8-16); Anion Gap 6 mmol/L (8-16); Aspartate Amino Transferase 26 U/L (14-36); Bilirubin,Total 0.9 mg/dL (0.2-1.3); Blood Urea Nitrogen 38 mg/dL (7-17); Blood Urea Nitrogen 39 mg/dL (7-17); Calcium 8.3 mg/dL (8.4-10.2); Calcium 8.6 mg/dL (8.4-10.2); Carbon Dioxide 25 mmol/L (22-30); Carbon Dioxide 26 mmol/L (22-30); Chloride 109 mmol/L (98-107); Chloride 110 mmol/L (98-107); Creatine Kinase 61 U/L (30-135); Estimated CRCL calculation 15 ml/min; Estimated Glomerular Filt Rate 25; Glucose 79 mg/dL (65-105); Glucose 81 mg/dL (65-105); Magnesium 2.2 mg/dL (1.6-2.3); Sodium 140 mmol/L (137-145); Sodium 141 mmol/L (137-145)
--- NOTE | 2020-05-13 08:34 | PM.PNNEP ---
Progress Note: A&P Assessment and Plan (1) CKD (chronic kidney disease): Qualifiers: Chronic kidney disease stage: stage 3 (moderate) Chronic kidney disease stage 3 subtype: stage 3b (GFR 30-44) Qualified Code(s): N18.32 - Chronic kidney disease, stage 3b Code(s): N18.9 - Chronic kidney disease, unspecified Status: Chronic Assessment and Plan: Alina has chronic kidney disease. Her creatinine was 1.3 2 years ago. Renal ultrasound was done as part of an abdominal ultrasound and she has normal size kidneys. I asked them to comment on size cysts and hydro. I looked at the ultrasound itself at does not look like she had any major problems. Her urine shows some protein. The urinalysis is bland Serology and immunofixation are pending This is probably related to her hypertension and probably vascular disease as well. She continues to smoke so it is not surprising that she might have progressed over the 2 years from a creatinine of 1.3 to a creatinine of 2.1 So this might just be chronic progression of her kidney disease or it could be acute kidney injury (2) Acute kidney injury: Code(s): N17.9 - Acute kidney failure, unspecified Status: Acute Assessment and Plan: It is possible she has acute kidney injury. No acute changes on the ultrasound that I could see. Urine electrolytes show pre renal azotemia Echocardiogram looks okay. No heavy drinking history and liver enzymes are okay Perhaps she has high output heart failure due to her severe anemia UA is bland Urine eosinophils pending The patient does have severe anemia and so could have a prerenal component. It is unlikely that she has a glomerulonephritis. Interstitial nephritis is also unlikely because she has not been on any medicines as an outpatient. She refused blood draw this morning. She just let them draw the blood so her labs are pending. (3) Severe anemia: Code(s): D64.9 - Anemia, unspecified Status: Acute Assessment and Plan: Hemoglobin is very low. GI has been consulted. Colonoscopy scheduled for tomorrow per patient The patient received blood transfusions. She is on a PPI (4) PVD (peripheral vascular disease): Code(s): I73.9 - Peripheral vascular disease, unspecified Status: Chronic Assessment and Plan: Patient has peripheral vascular disease documented in her lower extremities. She continues to smoke She is hoping to quit (5) Hypertension: Qualifiers: Hypertension type: essential hypertension Qualified Code(s): I10 - Essential (primary) hypertension Code(s): I10 - Essential (primary) hypertension Status: Chronic Assessment and Plan: Blood pressure has been somewhat variable with a systolic ranging from 110 to 136 (6) LINNETTE (iron deficiency anemia): Code(s): D50.9 - Iron deficiency anemia, unspecified Status: Acute Assessment and Plan: She has anemia. This is most likely due to GI blood loss. It is possible that renal insufficiency may be playing a role in decreased manufacture of red cells as well. Iron levels are pending. She is getting iron supplements. Subjective Date/time seen: 05/13/20 08:34 Interval history: Alina feels better today. She is less wheezy. No chest pain or shortness of breath. Still some swelling Review of Systems Cardiovascular: Cardiovascular: Reports no additional cardiovascular complaints Respiratory: Respiratory: Reports no additional respiratory complaints Gastrointestinal: Gastrointestinal: Reports no additional gastrointestinal complaints Genitourinary: Genitourinary: Reports no additional female genitourinary complaints Exam Narrative: Exam Narrative: WDWN in NAD skin no rash head ncat lungs clear cor reg no rub abd BS+ nontender and soft ext 1+ bilateral edema. Objective Data Vital Signs Vital Signs: Vital Signs - 24 hr 05/12/20 12:
[2020-05-13 08:43] LABS: Complement C3 76 mg/dL (88-165); Partial Thromboplastin Time 36.3 SECONDS (22.3-36.8)
[2020-05-13 08:44] LABS: Iron 93 ug/dL (37-170)
[2020-05-13 08:46] LABS: Parathyroid Intact 111.3 pg/mL (7.5-53.5)
[2020-05-13] MEDS: lisinopriL 20 MG TABLET PO (08:50)
[2020-05-13] MEDS: FAMOTIDINE 20 MG/2 ML VIAL IV PUSH ×2 (08:50→21:00)
[2020-05-13] MEDS: IRON SUCROSE COMPLEX 200 MG in SODIUM CHLORIDE 0.9% IV 50 ML 120 MG IVPB (08:50)
[2020-05-13 08:56] LABS: Percent Iron Saturation 23 % (20-50)
--- NOTE | 2020-05-13 10:15 | PC.NURSE ---
Call to Dr. Hdz to add additional information to the abdominal ultrasound, measurement of the kidneys, status of hydronephrosis and if there are any masses or cysts. Per Dr. Hdz he will evaluate and add to the report.
--- NOTE | 2020-05-13 10:55 | WPDGIPROGNO ---
Progress Note: A&P Assessment and Plan (1) LINNETTE (iron deficiency anemia): Code(s): D50.9 - Iron deficiency anemia, unspecified Status: Acute Assessment and Plan: Patient with recurrent profound anemia. She continues to have occult blood in stool. Plan to repeat GI endoscopy. After this a small-bowel capsule study is encouraged. An agree with hematology evaluation. Patient does have a prior history of colon polyps. Had a small gastric erosion by endoscopy 2 years ago. Further recommendations will be given after endoscopy tomorrow. (2) Occult blood in stools: Code(s): R19.5 - Other fecal abnormalities Status: Acute (3) History of colon polyps: Code(s): Z86.010 - Personal history of colonic polyps Status: Acute Subjective Date/time seen: 05/13/20 10:55 Patient denies any obvious blood in her stools. Has had no bruising. No nose bleeds. No other source of blood loss. Patient feeling somewhat better after blood transfusion. Review of Systems Review of Systems: All systems reviewed & are unremarkable except as noted in HPI and below Exam Narrative: Exam Narrative: Physical exam reveals her to be alert. Vital signs stable. She is anicteric. Lungs are clear. Heart without murmur. Abdomen bowel sounds present soft nontender with no organomegaly. Objective Data Vital Signs Vital Signs: Vital Signs - 24 hr 05/12/20 12:00 05/12/20 14:00 05/12/20 16:00 Temperature 97.6 F Pulse Rate 81 86 84 Respiratory Rate 20 Blood Pressure 136/64 Pulse Oximetry 96 05/12/20 20:00 05/12/20 22:00 05/13/20 00:00 Temperature 98.5 F Pulse Rate 86 86 91 Respiratory Rate 20 Blood Pressure 112/47 L Pulse Oximetry 98 05/13/20 04:00 05/13/20 05:56 05/13/20 06:00 Temperature 98.0 F Pulse Rate 87 86 86 Respiratory Rate 20 Blood Pressure 130/47 L Pulse Oximetry 99 Intake/Output Intake/Output: Intake & Output 05/10/20 05/11/20 05/12/20 05/13/20 23:59 23:59 23:59 23:59 Intake Total 1070 2100 1220 60 Output Total 1250 900 470 Balance 1070 850 320 -410 Meds/Results Medications: Active Medications Generic Name Dose Route Start Last Admin Trade Name Freq PRN Reason Stop Dose Admin Acetaminophen 650 mg 05/11/20 11:22 05/11/20 11:43 Acetaminophen 325 Mg Tablet PO 650 mg Q4H PRN Administration Pain or Fever Albuterol 2 puff 05/11/20 11:22 Albuterol Sulfate (*Sp) Aerosol 1 Puff INHALATION Q6HRT PRN Shortness Of Breath Or Wheezing Epoetin Nathan-epbx 10,000 units 05/13/20 17:34 Epoetin Nathan-Epbx 10,000 Units/Ml Vial IV PUSH TUTHSA BRANDON Famotidine 20 mg 05/10/20 21:00 05/13/20 08:50 Famotidine 20 Mg/2 Ml Vial IV PUSH 20 mg Q12HR BRANDON Administration Hydrochlorothiazide 12.5 mg 05/11/20 09:00 05/11/20 08:10 Hydrochlorothiazide 12.5 Mg Capsule PO 12.5 mg QAM BRANDON Administration Iron Sucrose 200 mg/ Sodium 60 mls @ 120 mls/hr 05/11/20 09:00 05/13/20 09:20 Chloride IVPB Infused QAM BRANDON Infusion Lisinopril 20 mg 05/11/20 09:00 05/13/20 08:50 Lisinopril 20 Mg Tablet PO 20 mg QAM BRANDON Administration Ondansetron HCl 4 mg 05/11/20 11:23 05/11/20 11:49 Ondansetron Inj 4 Mg/2 Ml Vial IV PUSH 4 mg Q6H PRN Administration Nausea And Vomiting Polyethylene Glycol 17 gm 05/11/20 11:41 05/11/20 11:49 Polyethylene Glycol 3350 17 Gm Powd.Pack PO 17 gm QAM PRN Administration Constipation Zolpidem Tartrate 5 mg 05/10/20 16:50 05/11/20 22:02 Zolpidem Tartrate (*Crx) 5 Mg Tablet PO 5 mg HS PRN Administration Insomnia Radiology Results: ITS Impressions Venous Doppler Study 05/11/20 11:28 IMPRESSION: 1. No deep venous thrombosis in either lower limb. Chest X-Ray 05/11/20 12:19 IMPRESSION: 1. Moderate-sized right pleural effusion with right basilar atelectasis and/or pneumonia. 2. Mild opacities at the lateral left antoinette
--- NOTE | 2020-05-13 11:02 | PM.IMPN ---
Progress Note: A&P Assessment and Plan (1) Acute systolic heart failure: Code(s): I50.21 - Acute systolic (congestive) heart failure Status: Acute Assessment and Plan: Patient's echo shows an EF of 35-40% with significant leg swelling -I do believe a portion of her symptoms is CHF causing her leg swelling and possibly pleural effusion -her kidney dysfunction could be due to CHF? I am wondering if she would benefit from a trial of diuretics -her anemia likely worsened her heart failure -nephrology and cardiology on board, will await their recommendations -she is currently on lisinopril -she continues to have occasional PVCs and small runs of nonsustained V-tach. Consider beta-blockade, again deferred to cardiology since they are on board -may need ischemia evaluation the future if patient would want this worked up -could be the cause of her pleural effusion, await thoracentesis results (2) Severe anemia: Code(s): D64.9 - Anemia, unspecified Status: Acute Assessment and Plan: Patient presents from PCP office due to low Hgb on outpatient labs. Hgb 4.5 on arrival. She received 2 units packed RBC 05/10. -Hgb remains low but stable at 9.0 this morning. No evidence of acute bleeding at this time but stool Hemoccult is positive -Iron panel suggestive of iron deficiency anemia. Patient is receiving Venofer and small arms repairer has been consulted -consider GI evaluation (3) Acute on chronic renal failure: Code(s): N17.9 - Acute kidney failure, unspecified; N18.9 - Chronic kidney disease, unspecified Status: Acute Assessment and Plan: Cr on admission was 2.1 -Cr in 2019 was 1.3 -Pt on lisinopril -Home HCTZ has been held -Kidneys on u/s look okay, addendum has been added for further renal details -No infection on UA -Received lasix: 20mg 05/10/20 and 20mg 05/11/20 -Kidney function could be worsened due to CHF and anemia? -Nephrology on board, 24 hour urine has been ordered -PTH intact elevated (4) PVD (peripheral vascular disease): Code(s): I73.9 - Peripheral vascular disease, unspecified Status: Chronic Assessment and Plan: Patient follows with Dr Carrillo for peripheral vascular surgeries. Per patient, last vascular stent placement in CANDE legs was October 2019, and she believes she saw him in the office last week. -consider restarting aspirin after GI evaluation which may be tomorrow (5) Pleural effusion: Code(s): J90 - Pleural effusion, not elsewhere classified Status: Acute Assessment and Plan: Likely partially the cause of her shortness of breath. -Chronicity is unclear since she has been short of breath x 6 months. Stable, not hypoxic. -CXR with moderate right pleural effusion, cardiomegaly. -echo shows systolic dysfunction, see above -no ascites noted on the abdominal ultrasound -obtained thoracentesis, likely due to CHF? Occult cancer cannot be ruled out. Cytology will be evaluated as well (6) Hypertension: Qualifiers: Hypertension type: essential hypertension Qualified Code(s): I10 - Essential (primary) hypertension Code(s): I10 - Essential (primary) hypertension Status: Chronic Assessment and Plan: Last bp 130/47 -Continue lisinopril -Hold HCTZ due to renal function - Monitor BP and adjust treatment as needed. (7) NSVT (nonsustained ventricular tachycardia): Code(s): I47.2 - Ventricular tachycardia Status: Acute Assessment and Plan: Intermittent during her stay -See above -Consider BB since she has systolic HF -Isolated event of 12-beat run of nonsustained arrhythmia on telemetry monitoring around 1830 05/11/20. Patient was asymptomatic. -Cardiology consulted (8) Increased PTH level: Code(s): E34.9 - Endocrine disorder, unspecified Status: Acute Assessment and Plan: Corrected calcium 8.8 (normal) today -Will check Vit D levels -Could
--- NOTE | 2020-05-13 12:37 | PM.PNCARD ---
Progress Note: A&P Assessment and Plan (1) Cardiomyopathy: Code(s): I42.9 - Cardiomyopathy, unspecified Status: Acute Assessment and Plan: Add Toprol XL 25mg daily. Continue LILLIAN-I. discussed goals for optimizing medical therapy for support of her new diagnosis cardiomyopathy. Etiology unknown, EF 35-40% by echocardiogram personally reviewed and discussed with the patient. I explained the concern gross to ventricular arrhythmias, CHF, recommended medical therapy an additional evaluation to clarify etiology. (2) CHF (congestive heart failure): Code(s): I50.9 - Heart failure, unspecified Status: Acute Assessment and Plan: at least mild component of CHF given edema, chest x-ray in light of moderate LV dysfunction EF 35-40%. Etiology of cardiomyopathy is unknown at this time. Workup as above but patient is not in agreement with further testing At this time. Caution with diuresis given renal failure. I would favor discontinuation of hydrochlorothiazide for furosemide for volume control, however. Reassess renal function in a.m.. Patient is clearly quite ill with a rather complex clinical picture. prognosis is guarded. (3) NSVT (nonsustained ventricular tachycardia): Code(s): I47.2 - Ventricular tachycardia Status: Acute Assessment and Plan: Add Toprol XL 25mg daily. Discussed benefit with regards to reduction in ventricular arrhythmia risk and supportive cardiomyopathy. Monitor electrolytes and renal function closely. (4) Severe anemia: Code(s): D64.9 - Anemia, unspecified Status: Acute Assessment and Plan: Per primary service, GI. Agree with Hematology. This is the primary concern in needs to be addressed, clarified prior to additional ischemic workup particularly invasive if pursued. Patient was not in agreement to proceed with any further workup given her current state of mind and clinical status. We would not want to subject her to clinical scenario where she would require discontinuation of antiplatelet or anticoagulant therapy which may pose grave risk of or injury if ongoing or new concern for anemia/bleed. (5) Acute on chronic renal failure: Code(s): N17.9 - Acute kidney failure, unspecified; N18.9 - Chronic kidney disease, unspecified Status: Acute Assessment and Plan: Progressive since admission. need to minimize nephrotoxic agents. Given LV dysfunction LILLIAN-inhibitor therapy would be advised, however, caution given rising creatinine. (6) Hypertension: Qualifiers: Hypertension type: essential hypertension Qualified Code(s): I10 - Essential (primary) hypertension Code(s): I10 - Essential (primary) hypertension Status: Chronic Assessment and Plan: Remains hypertensive, suboptimally controlled. (7) Pleural effusion: Code(s): J90 - Pleural effusion, not elsewhere classified Status: Acute Assessment and Plan: planned thoracentesis today. Subjective Date/time seen: Date of service: 05/13/20 12:37 Follow-up for nonsustained VT, new diagnosis cardiomyopathy Patient very upset. She is not sure how she got into her current room, she states she does not know with the plan is, she is hungry and has need in 2 days she claims. She denies shortness of breath or chest pain. She states she wants to go home. She claims no is telling her anything. Patient very skeptical of any clarification at 0 provided particularly as to why I was there speaking with her despite careful clarification regarding her abnormal echocardiogram, heart function, and heart rhythm changes on monitor tech. She denies ongoing bleeding. She states she is tired and just wants to go home. She is apparently scheduled for thoracentesis today. Review of Systems Review of Systems: All systems reviewed & are unremarkable except as noted in HPI and below Constitutional: Constitutional: Reports as per
--- NOTE | 2020-05-13 13:34 | PCPTNOTE ---
The PT treatment was unable to be completed today. Patient is out of room for procedure. Will continue per Plan of Care frequency and duration.
--- NOTE | 2020-05-13 14:18 | PC.NURSE ---
Patient had a thoracentesis performed today and per ultrasound patient needs to remain NPO for another 2 hours. Bowel prep can't be started until 1400 due to patients NPO status.
[2020-05-13 14:40] LABS: pH Pleural Fluid 7.401 (7.210-7.500)
--- NOTE | 2020-05-13 14:59 | PC.NURSE ---
On 05/13/20, the student, [FAISAL DOLL ], provided care and completed [facility] documentation on this patient. I have reviewed the student's documentation and agree with the findings.
[2020-05-13 15:28] LABS: Appearance Pleural Fluid Hazy (Clear); Color Pleural Fluid Yellow (Colorless); Pleural fluid source Pleural fluid
[2020-05-13 15:29] LABS: Lymphocytes Pleural Fluid 55 %; Neutrophils Pleural Fluid 20 % (0-25)
[2020-05-13 15:30] LABS: Macrophages Pleural Fluid 17 %; Mesothelial Cells Pleural Flui 8 %
--- NOTE | 2020-05-13 15:38 | PC.NURSE ---
Call to RANJEET Hinton to inform her that lab called with the stat gram stain results from the thoracentesis. Per lab few/light WBC and no organisms seen.
[2020-05-13] MEDS: PEG (High)/E-LYTE SOLN 4,000 ML BTL 4000 ML PO (16:00)
[2020-05-14] VITALS (14 sets, daily range): BP systolic 135–174; BP diastolic 55–75; PULSE 74–93; RESP 13–21; TEMP 36.3–36.9; O2SAT 91–100
[2020-05-14 06:42] LABS: Hematocrit 33.1 % (37.0-47.0); Hemoglobin 9.8 g/dL (12.0-15.0); Immature Platelet Fraction Pct 2.9 % (0.9-11.2); Mean Corpuscular HGB Conc 29.6 g/dl (32-36); Mean Corpuscular Hemoglobin 21.7 pg (26-34); Mean Corpuscular Volume 73.2 fl (80-100); Mean Platelet Volume 8.9 fl (7.4-10.4); Platelet Count Result 189 k/mm3 (150-375); Red Blood Count 4.52 M/mm3 (4.2-5.4); Red Cell Distribution Width 30.3 % (11.5-14.5); White Blood Count 9.9 K/mm3 (4.5-10.0)
[2020-05-14 06:53] LABS: Albumin Level 3.1 g/dL (3.5-5.1); Anion Gap 6 mmol/L (8-16); Blood Urea Nitrogen 36 mg/dL (7-17); Calcium 8.4 mg/dL (8.4-10.2); Carbon Dioxide 21 mmol/L (22-30); Chloride 112 mmol/L (98-107); Estimated CRCL calculation 18 ml/min; Estimated Glomerular Filt Rate 31; Glucose 69 mg/dL (65-105); Magnesium 2.2 mg/dL (1.6-2.3); Phosphorus 3.8 mg/dL (2.5-4.5); Potassium 4.1 mmol/L (3.4-5.0); Sodium 139 mmol/L (137-145)
--- NOTE | 2020-05-14 07:38 | WPDANESEPPF ---
Anes - Initial Pre Proc Eval Procedure: Operation Date: 05/14/20 08:30 Proposed Procedures p Esophagogastroduodenoscopy & Colonoscopy - Maykel Moreno MD Date/Time: 05/14/20 07:38 Surgeon: Darlene Sommers PA-C Pre Op Diagnosis: severe anemia Patient Data Age: 74 Gender: F Height: 1.57 m Weight: 57.2 kg Last Vital Signs Temp 36.3 C L 05/14/20 07:26 Pulse 74 05/14/20 07:26 Resp 18 05/14/20 07:26 BP 173/74 H 05/14/20 07:26 Pulse Ox 100 05/14/20 07:26 Allergies Allergy/AdvReac Type Severity Reaction Status Date / Time Penicillins Allergy Unknown Unknown Verified 05/10/20 16:07 Home Medications Medication Instructions Recorded Confirmed Type aspirin [Adult Aspirin] 81 mg PO DAILY 05/10/20 05/10/20 History lisinopril-hydrochlorothiazide 1 tablet PO DAILY 05/10/20 05/10/20 History zolpidem 5 mg PO HS PRN 05/10/20 05/10/20 History Laboratory Tests 05/13/20 05/13/20 05/13/20 08:04 08:04 08:04 WBC RBC Hgb Hct MCV MCH MCHC RDW Plt Count MPV Immature Gran % (Auto) Neut % (Auto) Lymph % (Auto) [place] % (Auto) Eos % (Auto) Baso % (Auto) Lymph # (Auto) [place] # (Auto) Eos # (Auto) Baso # (Auto) Abs Immat Gran (auto) Absolute Neuts (auto) Absolute Nucleated RBC Nucleated RBC % % Immature Plt Fraction PT INR APTT Sodium Potassium Chloride Carbon Dioxide Anion Gap BUN Creatinine Estim Creat Clear Calc Estimated GFR Glucose Calcium Phosphorus Magnesium Iron 93 ug/dL ug/dL (37-170) TIBC 403 ug/dL ug/dL (261-462) % Saturation 23 % % (20-50) Total Bilirubin AST ALT Alkaline Phosphatase Total Creatine Kinase Total Protein Albumin Amylase Vitamin D 25-Hydroxy TSH (Reflex) 1.850 uIU/mL uIU/mL (0.465-4.68) PTH Intact Pleural Fluid Source Pleural Color Pleural Appearance Pleural pH Pleural RBC Pleural Nuc Cells Pleural Neutrophils Pleural Lymphocytes Pleural Macrophages Pleural Mesothelial Pleural Total Protein Pleural Albumin Pleural LDH Pleural Glucose Serum Immunofixation Pending KEISHA Screen Pending Complement C3 Complement C4 Tot Complement (CH50) Pending [place]/Lambda Ratio Free [place] Light Chains Free Lambda Light Chain 05/13/20 05/13/20 05/13/20 08:04 08:04 08:04 WBC RBC Hgb Hct MCV MCH MCHC RDW Plt Count MPV Immature Gran % (Auto) Neut % (Auto) Lymph % (Auto) [place] % (Auto) Eos % (Auto) Baso % (Auto) Lymph # (Auto) [place] # (Auto) Eos # (Auto) Baso # (Auto) Abs Immat Gran (auto) Absolute Neuts (auto) Absolute Nucleated RBC Nucleated RBC % % Immature Plt Fraction PT INR APTT Sodium Potassium Chloride Carbon Dioxide Anion Gap BUN Creatinine
[2020-05-14] MEDS: LACTATED RINGERS 1,000 ML 150 ML IV CONT (07:53)
[2020-05-14 08:05] LABS: Vitamin D 25 Hydroxy 62.1 ng/mL
[2020-05-14] MEDS: BENZOCAINE (*SP) 60 ML SPRAY CAN (HURRICAINE) 1 SPRAY MUCOUS MEM (08:53)
--- NOTE | 2020-05-14 10:12 | PCOTNOTE ---
Attempted to see Patient at this time this morning, Per RN , Patient just returned from having a colonoscopy, very drowsy right now. RN requested therapy attempt again at a later time. Will try back at a later time.
--- NOTE | 2020-05-14 10:42 | PM.PNCARD ---
Progress Note: A&P Additional Plan 74-year-old woman with: Profound microcytic anemia with hematology recommendation including iron supplementation and erythropoietin and endoscopic findings demonstrating multiple gastric AVMs according to the anesthesia notes. Patient with asymptomatic wide complex tachycardia prompting consultation couple of days ago. Started on beta-denae because left ventricular ejection fraction is [id number] reduced. At this point cardiac evaluation is planned at least during this hospitalization. The principal reason for her admission of course was profound anemia. Discharge any time is fine with Cardiology. I will direct my office to make appointments for her for follow-up of her reduced ejection fraction. Given her anemia she may or may not eventually be a candidate for invasive procedures. Nico Leblanc MD [facility] Subjective Date/time seen: 05/14/20 10:42 Interval history: Pt is a 74-year-old female here for anemia and kidney disease . Patient was found by echo to have somewhat reduced left ventricular systolic function and has been placed on beta-denae therapy as well as LILLIAN-inhibitor has been continued. She has no symptomatic evidence of decompensated heart failure. Patient underwent upper and lower endoscopy today. Final reports are pending on the chart. Looks like multiple gastric AVMs were identified. Not sure if this is the etiology of her anemia. Exam Narrative: Exam Narrative: General: Elderly Afro-[place] female, upset alert and orient x2 (name, at a hospital) well developed, no apparent distress, cooperative. Tearful at times, annoyed and quite defensive Head: atraumatic, normocephalic Eyes: EOM intact, sclerae anicteric, conjunctivae unremarkable Ears/Nose: external inspection of ears and nose were grossly normal Mouth/Throat: oral mucosa pink and moist Neck: supple, normal range of motion, no jugular venous distention or carotid bruits, thyroid nonpalpable, trachea midline. Cardiac: Regular rate and rhythm, normal S1-S2, no murmurs Lungs: Diminished breath sounds namrata R base no obvious rales or wheezes, or rhonchi. Abdomen: Soft, nontender, nondistended, positive bowel sounds throughout. No appreciable hepatosplenomegaly, no rebound guarding or rigidity noted. Abdominal aorta nonpalpable, no appreciable bruits. Extremities: 1+ pitting equal bilateral LE edema, no clubbing, and or cyanosis. Extremities warm and well perfused. Skin: Warm and dry without ecchymoses, rashes, and/or petechiae. Musculoskeletal: Muscle strength and tone intact throughout without obvious deformities. Vascular: Carotid upstrokes 2+ bilaterally, radial pulses 2+ bilaterally Neurologic: Cranial nerves 2-12 grossly intact, examination grossly nonfocal Pscyhiatric: As above, upset, defensive, dismissive/annoyed Const: General: confusion Orientation/consciousness: confusion Neuro: General: confusion Objective Data Vital Signs Vital Signs: Vital Signs - 24 hr 05/13/20 12:00 05/13/20 14:15 05/13/20 16:00 Temperature Pulse Rate 84 89 88 Respiratory Rate 18 Blood Pressure 169/86 H Pulse Oximetry 99 05/13/20 18:00 05/13/20 20:00 05/13/20 22:00 Temperature 36.7 C 36.3 C L Pulse Rate 92 90 88 Respiratory Rate 18 20 Blood Pressure 153/68 H 156/81 H Pulse Oximetry 93 99 05/14/20 00:00 05/14/20 04:00 05/14/20 06:00 Temperature 36.4 C Pulse Rate 91 85 82 Respiratory Rate 21 H Blood Pressure 146/55 H Pulse Oximetry 100 05/14/20 07:26 05/14/20 09:36 05/14/20 09:46 Temperature 36.3 C L Pulse Rate 74 83 83 Respiratory Rate 18 19 17 Blood Pressure 173/74 H 139/62 154/62 H Pulse Oximetry 100 100 91 05/14/20 09:56 Temperature Pulse Rate 88 Respiratory Rate 13 Blood Pressure 174/75 H Pulse Oximetry 96 Intake/Output Intake/Output: Intake & Output 05/11/20 05/12/20 05/13/20 05/14/20
--- NOTE | 2020-05-14 11:32 | PM.IMPN ---
Progress Note: A&P Assessment and Plan (1) Acute systolic heart failure: Code(s): I50.21 - Acute systolic (congestive) heart failure Status: Acute Assessment and Plan: Patient's echo shows an EF of 35-40% with significant leg swelling -I do believe a portion of her symptoms is CHF causing her leg swelling and possibly pleural effusion -her kidney dysfunction could be due to CHF? I am wondering if she would benefit from a trial of lasix but she looks better today so will defer to nephrology -her anemia likely worsened her heart failure -nephrology and cardiology on board -she is currently on lisinopril and metoprolol -may need ischemia evaluation outpatient in the future if patient would want this worked up. Cardiology is going to f/u with her outpt -could be the cause of her pleural effusion, await thoracentesis results (will take many days) (2) Severe anemia: Code(s): D64.9 - Anemia, unspecified Status: Acute Assessment and Plan: Patient presents from PCP office due to low Hgb on outpatient labs. Hgb 4.5 on arrival. She received 2 units packed RBC 05/10. -Hgb remains low but stable at 9.8 this morning. 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 They were cauterized -Iron panel suggestive of iron deficiency anemia. Patient received Venofer and now on oral iron (3) Acute on chronic renal failure: Code(s): N17.9 - Acute kidney failure, unspecified; N18.9 - Chronic kidney disease, unspecified Status: Acute Assessment and Plan: Cr on admission was 2.1 -Cr in 2019 was 1.3 -Pt on lisinopril -Home HCTZ has been held -Kidneys on u/s look okay, addendum has been added for further renal details -No infection on UA -Received lasix: 20mg 05/10/20 and 20mg 05/11/20 -Kidney function could be worsened due to CHF and anemia? -Nephrology on board, 24 hour urine has been ordered -PTH intact elevated (4) PVD (peripheral vascular disease): Code(s): I73.9 - Peripheral vascular disease, unspecified Status: Chronic Assessment and Plan: Patient follows with Dr Carrillo for peripheral vascular surgeries. Per patient, last vascular stent placement in [facility] was October 2019, and she believes she saw him in the office last week. -will restart aspirin once okay with nephrology and GI (5) Pleural effusion: Code(s): J90 - Pleural effusion, not elsewhere classified Status: Acute Assessment and Plan: Likely partially the cause of her shortness of breath. -Chronicity is unclear since she has been short of breath x 6 months. Stable, not hypoxic. -CXR with moderate right pleural effusion, cardiomegaly. -echo shows systolic dysfunction, see above -no ascites noted on the abdominal ultrasound -thoracentesis done and chest x-ray looks better. The specimen was clotted but shows yellow fluid. Cytology is negative for cancer and Gram stain is negative for organisms. Will await studies to do light's criteria. Likely will be due to heart failure (6) Hypertension: Qualifiers: Hypertension type: essential hypertension Qualified Code(s): I10 - Essential (primary) hypertension Code(s): I10 - Essential (primary) hypertension Status: Chronic Assessment and Plan: Last bp 174/75 which is higher than her normal and likely due to anesthesia -Continue lisinopril and metoprolol -Hold HCTZ due to renal function - Monitor BP and adjust treatment as needed. (7) NSVT (nonsustained ventricular tachycardia): Code(s): I47.2 - Ventricular tachycardia Status: Acute Assessment and Plan: Intermittent during her stay -See above -better on metoprolol -Isolated event of 12-beat run of nonsustained arrhythmia on telemetry monitoring around 1830 05/11/20. Patient was asymptomatic. -Cardiology consulted (8) Increased PTH level: Code(s): E34.9 - Endocrine disorder, unspecified Status:
[2020-05-14] MEDS: FAMOTIDINE 20 MG/2 ML VIAL IV PUSH (11:49)
[2020-05-14] MEDS: lisinopriL 20 MG TABLET PO (11:49)
[2020-05-14] MEDS: METOPROLOL SUCCINATE EXT REL 25 MG TABCR PO (11:50)
--- NOTE | 2020-05-14 12:27 | PC.NURSE ---
This nurse called Dr. Isaacs in regards to the patients IV Iron at this time. Per Dr. Isaacs okay to discontinue the IV Iron due to the patient continue losing IV access.
--- NOTE | 2020-05-14 17:19 | PM.PNNEP ---
Progress Note: A&P Assessment and Plan (1) CKD (chronic kidney disease): Qualifiers: Chronic kidney disease stage: stage 3 (moderate) Chronic kidney disease stage 3 subtype: stage 3b (GFR 30-44) Qualified Code(s): N18.32 - Chronic kidney disease, stage 3b Code(s): N18.9 - Chronic kidney disease, unspecified Status: Chronic Assessment and Plan: Alina has chronic kidney disease. Her creatinine was 1.3 2 years ago. Renal ultrasound shows no hydronephrosis, borderline kidney size, and 1 simple cyst. Her urine shows some protein. The urinalysis is bland Serology and immunofixation are pending This is probably related to her hypertension and probably vascular disease as well. She continues to smoke so it is not surprising that she might have progressed over the 2 years. Unclear how much of this is acute and how much is chronic. Her creatinine is down a little bit to 1.9. (2) Acute kidney injury: Code(s): N17.9 - Acute kidney failure, unspecified Status: Acute Assessment and Plan: It is possible she has acute kidney injury. No acute changes on the ultrasound that I could see. Urine electrolytes show pre renal azotemia Echocardiogram looks okay. No heavy drinking history and liver enzymes are okay Perhaps she has high output heart failure due to her severe anemia UA is bland Urine eosinophils pending The patient does have severe anemia and so could have a prerenal component. It is unlikely that she has a glomerulonephritis. Interstitial nephritis is also unlikely because she has not been on any medicines as an outpatient. Creatinine has improved a bit to 1.9 (3) Severe anemia: Code(s): D64.9 - Anemia, unspecified Status: Acute Assessment and Plan: Hemoglobin is very low. GI has been consulted. Colonoscopy scheduled for tomorrow per patient The patient received blood transfusions. She is on a PPI Hemoglobin 9.8 today. Patient is refusing EPO (4) PVD (peripheral vascular disease): Code(s): I73.9 - Peripheral vascular disease, unspecified Status: Chronic Assessment and Plan: Patient has peripheral vascular disease documented in her lower extremities. She continues to smoke She is hoping to quit (5) Hypertension: Qualifiers: Hypertension type: essential hypertension Qualified Code(s): I10 - Essential (primary) hypertension Code(s): I10 - Essential (primary) hypertension Status: Chronic Assessment and Plan: Blood pressure has been somewhat variable with a systolic ranging from 110 to 136 (6) LINNETTE (iron deficiency anemia): Code(s): D50.9 - Iron deficiency anemia, unspecified Status: Acute Assessment and Plan: She has anemia. This is most likely due to GI blood loss. It is possible that renal insufficiency may be playing a role in decreased manufacture of red cells as well. Iron levels show adequate stores. She is getting iron supplements. Subjective Date/time seen: 05/14/20 17:19 Interval history: Alina feels better today. She is less wheezy. No chest pain or shortness of breath. Still some swelling Exam Narrative: Exam Narrative: WDWN in NAD skin no rash or subcu nodules head ncat lungs clear bilaterally cor reg no rub abd BS+ nontender and soft ext 1+ bilateral edema. Objective Data Vital Signs Vital Signs: Vital Signs - 24 hr 05/13/20 18:00 05/13/20 20:00 05/13/20 22:00 Temperature 36.7 C 36.3 C L Pulse Rate 92 90 88 Respiratory Rate 18 20 Blood Pressure 153/68 H 156/81 H Pulse Oximetry 93 99 05/14/20 00:00 05/14/20 04:00 05/14/20 06:00 Temperature 36.4 C Pulse Rate 91 85 82 Respiratory Rate 21 H Blood Pressure 146/55 H Pulse Oximetry 100 05/14/20 07:26 05/14/20 09:36 05/14/20 09:46 Temperature 36.3 C L Pulse Rate 74 83 83 Respiratory Rate 18 19 17 Blood Pressure 173/74 H 139/62 154/62 H Pulse O
[2020-05-14] MEDS: FERROUS SULFATE 324 MG TABLET PO (17:24)
[2020-05-15] VITALS (13 sets, daily range): BP systolic 132–154; BP diastolic 52–93; PULSE 76–93; RESP 16–20; TEMP 36.4–37.1; O2SAT 98–100
--- NOTE | 2020-05-15 03:56 | PC.NURSE ---
24 hour urine collection start at 2/04 0000 with pt first urination.
[2020-05-15 05:54] LABS: Alanine Aminotransferase 11 U/L (4-35); Albumin Level 2.9 g/dL (3.5-5.1); Alkaline Phosphatase 70 U/L (38-126); Anion Gap 5 mmol/L (8-16); Aspartate Amino Transferase 25 U/L (14-36); Bilirubin,Total 0.8 mg/dL (0.2-1.3); Blood Urea Nitrogen 33 mg/dL (7-17); CRP 1.7 mg/dL (<1.0); Calcium 8.4 mg/dL (8.4-10.2); Carbon Dioxide 23 mmol/L (22-30); Chloride 111 mmol/L (98-107); Estimated CRCL calculation 18 ml/min; Estimated Glomerular Filt Rate 31; Glucose 90 mg/dL (65-105); Magnesium 2.2 mg/dL (1.6-2.3); Potassium 3.9 mmol/L (3.4-5.0); Sodium 139 mmol/L (137-145)
[2020-05-15 06:10] LABS: Hematocrit 29.4 % (37.0-47.0); Hemoglobin 8.9 g/dL (12.0-15.0); Immature Platelet Fraction Pct 3.2 % (0.9-11.2); Mean Corpuscular HGB Conc 30.3 g/dl (32-36); Mean Corpuscular Volume 72.6 fl (80-100); Mean Platelet Volume 9.3 fl (7.4-10.4); Platelet Count Result 185 k/mm3 (150-375); Red Blood Count 4.05 M/mm3 (4.2-5.4); Red Cell Distribution Width 31.2 % (11.5-14.5)
--- NOTE | 2020-05-15 08:42 | WPDGIPROGNO ---
Progress Note: A&P Assessment and Plan (1) Gastric AVM: Code(s): K31.819 - Angiodysplasia of stomach and duodenum without bleeding Status: Acute Assessment and Plan: Gastric and duodenal AVMs noted by endoscopy. This appears to be the etiology of recent GI blood loss and iron deficiency anemia. It is likely she may have additional AVMs in the distal small bowel. Continued iron replacement frequent monitoring of hemoglobin as an outpatient is encourage. Continued slow GI blood loss is not unusual with this condition. Follow-up EGD depending on follow-up labs in blood loss. (2) LINNETTE (iron deficiency anemia): Code(s): D50.9 - Iron deficiency anemia, unspecified Status: Acute Assessment and Plan: Iron replacement encourage. Initial oral iron advised. Follow-up CBC at intervals after discharge. (3) Occult blood in stools: Code(s): R19.5 - Other fecal abnormalities Status: Acute (4) History of colon polyps: Code(s): Z86.010 - Personal history of colonic polyps Status: Acute Assessment and Plan: No polyps identified by endoscopy yesterday. Follow-up colonoscopy in 5 years if medical condition allows. (5) PVD (peripheral vascular disease): Code(s): I73.9 - Peripheral vascular disease, unspecified Status: Chronic Subjective Date/time seen: 05/15/20 08:42 patient alert and comfortable this morning. Anxious to go home. She reports no abdominal pain. No obvious bleeding described. Review of Systems Review of Systems: All systems reviewed & are unremarkable except as noted in HPI and below Exam Narrative: Exam Narrative: Physical exam reveals patient to be alert. She is anicteric. Abdomen is soft bowel sounds are present nontender. No organomegaly evident. Objective Data Vital Signs Vital Signs: Vital Signs - 24 hr 05/14/20 09:36 05/14/20 09:46 05/14/20 09:56 Temperature Pulse Rate 83 83 88 Respiratory Rate 19 17 13 Blood Pressure 139/62 154/62 H 174/75 H Pulse Oximetry 100 91 96 05/14/20 11:50 05/14/20 12:00 05/14/20 14:00 Temperature 97.6 F Pulse Rate 87 93 76 Respiratory Rate 18 Blood Pressure 135/64 Pulse Oximetry 100 05/14/20 16:00 05/14/20 18:00 05/14/20 20:00 Temperature 98.2 F Pulse Rate 80 88 78 Respiratory Rate 16 Blood Pressure 161/66 H Pulse Oximetry 100 05/14/20 21:07 05/15/20 00:00 05/15/20 01:58 Temperature 98.4 F 98.6 F Pulse Rate 82 84 80 Respiratory Rate 16 16 Blood Pressure 156/61 H 148/60 H Pulse Oximetry 100 98 05/15/20 04:00 05/15/20 05:35 Temperature 98.5 F Pulse Rate 76 87 Respiratory Rate 16 Blood Pressure 132/52 L Pulse Oximetry 98 Intake/Output Intake/Output: Intake & Output 05/12/20 05/13/20 05/14/20 05/15/20 23:59 23:59 23:59 23:59 Intake Total 1220 460 600 100 Output Total 900 1720 450 300 Balance 320 -1260 150 -200 Meds/Results Medications: Active Medications Generic Name Dose Route Start Last Admin Trade Name Freq PRN Reason Stop Dose Admin Acetaminophen 650 mg 05/11/20 11:22 05/11/20 11:43 Acetaminophen 325 Mg Tablet PO 650 mg Q4H PRN Administration Pain or Fever Albuterol 2 puff 05/11/20 11:22 Albuterol Sulfate (*Sp) Aerosol 1 Puff INHALATION Q6HRT PRN Shortness Of Breath Or Wheezing Epoetin Nathan-epbx 10,000 units 05/13/20 14:15 05/13/20 17:08 Epoetin Nathan-Epbx 10,000 Units/Ml Vial SUB-Q Not Given [facility] [email or web address] [facility] Ferrous Sulfate 324 mg 05/14/20 17:00 05/14/20 17:24 Ferrous Sulfate 324 Mg Tablet PO 324 mg BIDWM BRANDON Administration Hydrochlorothiazide 12.5 mg 05/11/20 09:00 05/11/20 08:10 Hydrochlorothiazide 12.5 Mg Capsule PO 12.5 mg QAM BRANDON Administration Lisinopril 20 mg 05/11/20 09:00 05/14/20 11:49 Lisinopril 20 Mg Tablet PO 20 mg QAM BRANDON Administration Metoprolol Succinate 25 mg 05/14/20 09:00 05/14/20 11:50 Metoprolol Suc
[2020-05-15 08:51] LABS: Kappa\\Lambda Light Chains 1.33 (0.26-1.65); Lambda Light Chain 51.5 mg/L (5.7-26.3)
[2020-05-15] MEDS: lisinopriL 20 MG TABLET PO (09:26)
[2020-05-15] MEDS: EPOETIN ALFA-EPBX 10,000 UNITS/ML VIAL 10000 UNITS SUB-Q (09:26)
[2020-05-15] MEDS: METOPROLOL SUCCINATE EXT REL 25 MG TABCR PO (09:26)
[2020-05-15] MEDS: FERROUS SULFATE 324 MG TABLET PO ×2 (09:26→18:34)
[2020-05-15 11:38] LABS: Glucose Pleural Fluid 88 mg/dL; LDH Pleural Fluid 42 U/L; Total Protein Pleural Fluid <3.0 g/dL
--- NOTE | 2020-05-15 12:28 | PM.PNNEP ---
Progress Note: A&P Assessment and Plan (1) CKD (chronic kidney disease): Qualifiers: Chronic kidney disease stage: stage 3 (moderate) Chronic kidney disease stage 3 subtype: stage 3b (GFR 30-44) Qualified Code(s): N18.32 - Chronic kidney disease, stage 3b Code(s): N18.9 - Chronic kidney disease, unspecified Status: Chronic Assessment and Plan: Alina has chronic kidney disease. Her creatinine was 1.3 2 years ago. Renal ultrasound shows no hydronephrosis, borderline kidney size, and 1 simple cyst. Her urine shows some protein. The urinalysis is bland Serology and immunofixation are pending This is probably related to her hypertension and probably vascular disease as well. she seems to be settling in with a creatinine of 1.9. this may be her ckd baseline. (2) Acute kidney injury: Code(s): N17.9 - Acute kidney failure, unspecified Status: Acute Assessment and Plan: It is possible she has acute kidney injury. No acute changes on the ultrasound that I could see. Urine electrolytes show pre renal azotemia Echocardiogram looks okay. No heavy drinking history and liver enzymes are okay Perhaps she has high output heart failure due to her severe anemia UA is bland Urine eosinophils pending most likely due to high output chf and prerenal azotemia. this seems to have resolved. (3) Severe anemia: Code(s): D64.9 - Anemia, unspecified Status: Acute Assessment and Plan: Hemoglobin is very low. GI has been consulted. scopes done. EGD shoes AVMs. Colonoscopy shows no polyps. The patient received blood transfusions. She is on a PPI Hemoglobin 9.8 today. Patient is refusing EPO (4) PVD (peripheral vascular disease): Code(s): I73.9 - Peripheral vascular disease, unspecified Status: Chronic Assessment and Plan: Patient has peripheral vascular disease documented in her lower extremities. She continues to smoke She is hoping to quit (5) Hypertension: Qualifiers: Hypertension type: essential hypertension Qualified Code(s): I10 - Essential (primary) hypertension Code(s): I10 - Essential (primary) hypertension Status: Chronic Assessment and Plan: Blood pressure ranging 130 to 160. inc metoprolol (6) LINNETTE (iron deficiency anemia): Code(s): D50.9 - Iron deficiency anemia, unspecified Status: Acute Assessment and Plan: She has anemia. This is most likely due to GI blood loss. It is possible that renal insufficiency may be playing a role in decreased manufacture of red cells as well. Iron levels show adequate stores. She is getting iron supplements. Subjective Date/time seen: 05/15/20 12:28 Interval history: Alina feels better today. no sob or cp swelling is about the same. Exam Narrative: Exam Narrative: WDWN in NAD skin no rash or subcu nodules head ncat lungs clear bilaterally cor reg no rub abd BS+ nontender and soft ext 1+ bilateral edema. Objective Data Vital Signs Vital Signs: Vital Signs - 24 hr 05/14/20 14:00 05/14/20 16:00 05/14/20 18:00 Temperature 36.4 C 36.8 C Pulse Rate 76 80 88 Respiratory Rate 18 16 Blood Pressure 135/64 161/66 H Pulse Oximetry 100 100 05/14/20 20:00 05/14/20 21:07 05/15/20 00:00 Temperature 36.9 C Pulse Rate 78 82 84 Respiratory Rate 16 Blood Pressure 156/61 H Pulse Oximetry 100 05/15/20 01:58 05/15/20 04:00 05/15/20 05:35 Temperature 37.0 C 36.9 C Pulse Rate 80 76 87 Respiratory Rate 16 16 Blood Pressure 148/60 H 132/52 L Pulse Oximetry 98 98 05/15/20 09:26 05/15/20 10:00 Temperature 36.8 C Pulse Rate 90 85 Respiratory Rate 16 Blood Pressure 147/58 H Pulse Oximetry 100 Intake/Output Intake/Output: Intake & Output 05/12/20 05/13/20 05/14/20 05/15/20 23:59 23:59 23:59 23:59 Intake Total 1220 460 600 220 Output Total 900 1720 450 300 Balance 320 -126
--- NOTE | 2020-05-15 15:56 | PM.IMPN ---
Progress Note: A&P Assessment and Plan (1) Acute systolic heart failure: Code(s): I50.21 - Acute systolic (congestive) heart failure Status: Acute Assessment and Plan: Patient's echo shows an EF of 35-40% with significant leg swelling -I do believe a portion of her symptoms is CHF causing her leg swelling and possibly pleural effusion -her kidney dysfunction could be due to CHF? I am wondering if she would benefit from a trial of lasix but she looks better today so will defer to nephrology -her anemia likely worsened her heart failure -nephrology and cardiology on board -she is currently on lisinopril and metoprolol -may need ischemia evaluation outpatient in the future if patient would want this worked up. Cardiology is going to f/u with her outpt -could be the cause of her pleural effusion, await thoracentesis results (will take many days) (2) Severe anemia: Code(s): D64.9 - Anemia, unspecified Status: Acute Assessment and Plan: Patient presents from PCP office due to low Hgb on outpatient labs. Hgb 4.5 on arrival. She received 2 units packed RBC 05/10. -Hgb remains low but stable at 8.9 this morning. 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 They were cauterized -Iron panel suggestive of iron deficiency anemia. Patient received Venofer and now on oral iron (3) Acute on chronic renal failure: Code(s): N17.9 - Acute kidney failure, unspecified; N18.9 - Chronic kidney disease, unspecified Status: Acute Assessment and Plan: Cr on admission was 2.1 and now 1.9 -Cr in 2019 was 1.3 -Pt on lisinopril -Home HCTZ has been held -Kidneys on u/s look okay, addendum has been added for further renal details -No infection on UA -Received lasix: 20mg 05/10/20 and 20mg 05/11/20 -Kidney function could be worsened due to CHF and anemia? -Nephrology on board, 24 hour urine has been ordered and should be done around midnight -PTH intact elevated (4) PVD (peripheral vascular disease): Code(s): I73.9 - Peripheral vascular disease, unspecified Status: Chronic Assessment and Plan: Patient follows with Dr Carrillo for peripheral vascular surgeries. Per patient, last vascular stent placement in [facility] was October 2019, and she believes she saw him in the office last week. -will restart aspirin once okay with nephrology and GI (5) Pleural effusion: Code(s): J90 - Pleural effusion, not elsewhere classified Status: Acute Assessment and Plan: Likely partially the cause of her shortness of breath. -Chronicity is unclear since she has been short of breath x 6 months. Stable, not hypoxic. -CXR with moderate right pleural effusion, cardiomegaly. -echo shows systolic dysfunction, see above -no ascites noted on the abdominal ultrasound -thoracentesis done and chest x-ray looks better. The specimen was clotted but shows yellow fluid. Cytology is negative for cancer and Gram stain is negative for organisms. Will await studies to do light's criteria. Likely will be due to heart failure (6) Hypertension: Qualifiers: Hypertension type: essential hypertension Qualified Code(s): I10 - Essential (primary) hypertension Code(s): I10 - Essential (primary) hypertension Status: Chronic Assessment and Plan: Last bp 142/93 which is higher than her normal and likely due to anesthesia -Continue lisinopril and metoprolol -Hold HCTZ due to renal function - Monitor BP and adjust treatment as needed. (7) NSVT (nonsustained ventricular tachycardia): Code(s): I47.2 - Ventricular tachycardia Status: Acute Assessment and Plan: Intermittent during her stay -See above -better on metoprolol -Isolated event of 12-beat run of nonsustained arrhythmia on telemetry monitoring around 1830 05/11/20. Patient was asymptomatic. -Cardiology consulted (8) Increased PTH level: Code(s): E34.9 -
[2020-05-16] VITALS (7 sets, daily range): BP systolic 145–168; BP diastolic 61–70; PULSE 82–99; RESP 16; TEMP 36.5–36.8; O2SAT 98–100
[2020-05-16 05:15] LABS: Haptoglobin 157 mg/dL (43-212)
[2020-05-16] MEDS: METOPROLOL SUCCINATE EXT REL 50 MG TABCR PO (08:12)
[2020-05-16] MEDS: FERROUS SULFATE 324 MG TABLET PO (08:12)
[2020-05-16] MEDS: lisinopriL 20 MG TABLET PO (08:12)
[2020-05-16 08:18] LABS: Hematocrit 34.4 % (37.0-47.0); Immature Platelet Fraction Pct 5.2 % (0.9-11.2); Mean Corpuscular HGB Conc 29.1 g/dl (32-36); Mean Corpuscular Hemoglobin 21.8 pg (26-34); Mean Corpuscular Volume 75.1 fl (80-100); Platelet Count Result 136 k/mm3 (150-375); Red Blood Count 4.58 M/mm3 (4.2-5.4); Red Cell Distribution Width 32.9 % (11.5-14.5); White Blood Count 10.2 K/mm3 (4.5-10.0)
[2020-05-16 08:36] LABS: Anion Gap 7 mmol/L (8-16); Blood Urea Nitrogen 29 mg/dL (7-17); Calcium 8.7 mg/dL (8.4-10.2); Carbon Dioxide 23 mmol/L (22-30); Chloride 110 mmol/L (98-107); Estimated CRCL calculation 20 ml/min; Estimated Glomerular Filt Rate 36; Glucose 77 mg/dL (65-105); Potassium 3.8 mmol/L (3.4-5.0); Sodium 140 mmol/L (137-145)
--- NOTE | 2020-05-16 10:30 | PM.DS ---
DS: Admitting Diagnosis Admitting Diagnosis Admitting Diagnosis: Severe anemia DS: Discharge Diagnosis Discharge Diagnosis (1) Acute systolic heart failure: Code(s): I50.21 - Acute systolic (congestive) heart failure Status: Acute Assessment and Plan: Patient's echo shows an EF of 35-40% with significant leg swelling -pleural effusion appears to be transudative, likely due to CHF -spoke with Nephrology and decided on starting the patient on Lasix 40 mg b.i.d. -she needs a repeat BMP since she has chronic kidney disease. This will be done in 1 week and I have called her primary care physician and let her now. She will follow -her anemia likely worsened her heart failure -nephrology and cardiology saw the patient inpatient and will follow up outpt -she is currently on lisinopril, lasix and metoprolol -may need ischemia evaluation outpatient in the future if patient would want this worked up. Cardiology is going to f/u with her outpt (2) Severe anemia: Code(s): D64.9 - Anemia, unspecified Status: Acute Assessment and Plan: Patient presents from PCP office due to low Hgb on outpatient labs. Hgb 4.5 on arrival. She received 2 units packed RBC 05/10. -Hgb remains low but stable at 10.0 this morning. 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 They were cauterized -GI okay with restarting aspirin. Will check HH in one week -Iron panel suggestive of iron deficiency anemia. Patient received Venofer and now on oral iron (3) Acute on chronic renal failure: Code(s): N17.9 - Acute kidney failure, unspecified; N18.9 - Chronic kidney disease, unspecified Status: Acute Assessment and Plan: Cr on admission was 2.1 and now 1.7 -Cr in 2019 was 1.3 -Pt on lisinopril -Home HCTZ has been held -Kidneys on u/s look okay, addendum has been added for further renal details -No infection on UA -Kidney function could be worsened due to CHF and anemia but still has evidence of CKD -Nephrology on board, will follow outpt -PTH intact elevated (4) PVD (peripheral vascular disease): Code(s): I73.9 - Peripheral vascular disease, unspecified Status: Chronic Assessment and Plan: Patient follows with Dr Carrillo for peripheral vascular surgeries. Per patient, last vascular stent placement in [facility] was October 2019, and she believes she saw him in the office last week. -continue aspirin (5) Pleural effusion: Code(s): J90 - Pleural effusion, not elsewhere classified Status: Acute Assessment and Plan: Likely partially the cause of her shortness of breath. Her SOB has resolved -Chronicity is unclear since she has been short of breath x 6 months. Stable, not hypoxic. -CXR with moderate right pleural effusion, cardiomegaly. -echo shows systolic dysfunction, see above -no ascites noted on the abdominal ultrasound -thoracentesis done and chest x-ray looks better. The specimen was clotted but shows yellow fluid. Cytology is negative for cancer and Gram stain is negative for organisms. lights criteria shows transudate (6) Hypertension: Qualifiers: Hypertension type: essential hypertension Qualified Code(s): I10 - Essential (primary) hypertension Code(s): I10 - Essential (primary) hypertension Status: Chronic Assessment and Plan: Last bp 145/61 -Continue lisinopril, metoprolol and lasix -Hold HCTZ has been discontinued (7) NSVT (nonsustained ventricular tachycardia): Code(s): I47.2 - Ventricular tachycardia Status: Acute Assessment and Plan: Intermittent during her stay -See above -better on metoprolol (8) Increased PTH level: Code(s): E34.9 - Endocrine disorder, unspecified Status: Acute Assessment and Plan: Calcium 8.4 (normal) today -vitamin-D and phosphorus normal -likely due to renal failure, consider primary hyperparathyroidism. [place]
[2020-05-16 14:06] LABS: Complement Total CH50 56 U/mL (31-60)
--- NOTE | 2020-05-16 14:13 | PM.PNNEP ---
Progress Note: A&P Assessment and Plan (1) CKD (chronic kidney disease): Qualifiers: Chronic kidney disease stage: stage 3 (moderate) Chronic kidney disease stage 3 subtype: stage 3b (GFR 30-44) Qualified Code(s): N18.32 - Chronic kidney disease, stage 3b Code(s): N18.9 - Chronic kidney disease, unspecified Status: Chronic Assessment and Plan: Alina has chronic kidney disease. Her creatinine was 1.3 2 years ago. Renal ultrasound shows no hydronephrosis, borderline kidney size, and 1 simple cyst. Her urine shows some protein. The urinalysis is bland Serology and immunofixation are pending This is probably related to her hypertension and probably vascular disease as well. (2) Acute kidney injury: Code(s): N17.9 - Acute kidney failure, unspecified Status: Acute Assessment and Plan: It is possible she has acute kidney injury. No acute changes on the ultrasound that I could see. Urine electrolytes show pre renal azotemia Echocardiogram looks okay. No heavy drinking history and liver enzymes are okay Perhaps she has high output heart failure due to her severe anemia UA is bland Urine eosinophils negative most likely due to high output chf and prerenal azotemia this seems to have resolved. I think this is her new baseline. (3) Severe anemia: Code(s): D64.9 - Anemia, unspecified Status: Acute Assessment and Plan: Hemoglobin is very low. GI has been consulted. scopes done. EGD shoes AVMs. Colonoscopy shows no polyps. The patient received blood transfusions. She is on a PPI Hemoglobin 10 today. slowly improving on its own. I don't think she needs EPO after all. (4) PVD (peripheral vascular disease): Code(s): I73.9 - Peripheral vascular disease, unspecified Status: Chronic Assessment and Plan: Patient has peripheral vascular disease documented in her lower extremities. She continues to smoke She is hoping to quit (5) Hypertension: Qualifiers: Hypertension type: essential hypertension Qualified Code(s): I10 - Essential (primary) hypertension Code(s): I10 - Essential (primary) hypertension Status: Chronic Assessment and Plan: Blood pressure ranging 130 to 160. inc metoprolol (6) LINNETTE (iron deficiency anemia): Code(s): D50.9 - Iron deficiency anemia, unspecified Status: Acute Assessment and Plan: She has anemia. This is most likely due to GI blood loss. getting iron Subjective Date/time seen: 05/16/20 14:13 Interval history: Alina feels better today. no sob or cp swelling is about the same. she feels that it will take a long time to get rid of the swelling and doesn't want to wait on this for dischage. she wants to go home. Exam Narrative: Exam Narrative: WDWN in NAD skin no rash or subcu nodules head ncat lungs clear bilaterally cor reg no rub or gallop abd BS+ nontender and soft ext 1+ bilateral edema. Objective Data Vital Signs Vital Signs: Vital Signs - 24 hr 05/15/20 16:00 05/15/20 18:00 05/15/20 20:00 Temperature 36.4 C Pulse Rate 79 85 84 Respiratory Rate 16 Blood Pressure 148/59 H Pulse Oximetry 99 05/15/20 21:46 05/16/20 00:00 05/16/20 01:08 Temperature 37.1 C 36.7 C Pulse Rate 84 83 88 Respiratory Rate 16 16 Blood Pressure 154/73 H 168/70 H Pulse Oximetry 98 98 05/16/20 04:00 05/16/20 05:56 05/16/20 08:00 Temperature 36.8 C Pulse Rate 90 87 99 Respiratory Rate 16 Blood Pressure 158/70 H Pulse Oximetry 99 05/16/20 08:12 05/16/20 10:25 Temperature 36.5 C Pulse Rate 87 82 Respiratory Rate 16 Blood Pressure 145/61 H Pulse Oximetry 100 Intake/Output Intake/Output: Intake & Output 05/13/20 05/14/20 05/15/20 05/16/20 23:59 23:59 23:59 23:59 Intake Total 460 600 900 440 Output Total 1720 450 750 445 Balance -1260 150 150 -5 Meds/Results Radiology Re
[2020-05-18 19:28] LABS: Albumin Pleural Fluid 1.3 g/dL
[2020-05-21 09:41] LABS: Measured Kappa Chains 1.18
[2020-05-21 09:42] LABS: Measured Lambda Chains 0.51; Total Lambda Chains 2.55
[2020-05-21 09:43] LABS: Albumin Trace; Creat 24 Hr 0.57; Pro/Creat Ratio 274
== END 2020-05-16 11:13 | disposition home health service (06) | DRG 377 ==
LOC: ANHED 14:15 → ANH2MED 15:22
PROVIDERS: Internal Medicine; Internal Medicine Gastroenterology; Internal Medicine Hematology & Oncology; Internal Medicine Nephrology; Nurse Practitioner; Physician Assistant; Admitting Provider Family Medicine; Emergency Provider Emergency Medicine; PCP Family Medicine; Visit Provider Internal Medicine
PROC: 0DJ08ZZ Inspection of Upper Intestinal Tract, Via Natural or Artificial Opening Endoscopic (ICD-10-PCS; CPT 43235; principal; 2020-05-14 08:30)
DX: K31.811 Angiodysplasia of stomach and duodenum with bleeding (principal); I50.21 Acute systolic (congestive) heart failure; I47.2 Ventricular tachycardia; N17.9 Acute kidney failure, unspecified; I13.0 Hypertensive heart and chronic kidney disease with heart failure and stage 1 through stage 4 chronic kidney disease, or unspecified chronic kidney disease; I42.9 Cardiomyopathy, unspecified; J91.8 Pleural effusion in other conditions classified elsewhere; D62 Acute posthemorrhagic anemia; D50.9 Iron deficiency anemia, unspecified; N18.32 Chronic kidney disease, stage 3b; K57.30 Diverticulosis of large intestine without perforation or abscess without bleeding; K64.8 Other hemorrhoids; I73.9 Peripheral vascular disease, unspecified; F17.210 Nicotine dependence, cigarettes, uncomplicated; E34.9 Endocrine disorder, unspecified; Z79.82 Long term (current) use of aspirin; Z79.899 Other long term (current) drug therapy; Z88.0 Allergy status to penicillin; Z86.010 Personal history of colon polyps; Z95.828 Presence of other vascular implants and grafts
CPT/HCPCS: 32555; 36415; 36430; 70450; 71046; 76700; 80048; 80053; 80069; 80076; 81001; 82042; 82150; 82247; 82274; 82306; 82550; 82570; 82607; 82728; 82746; 82945; 83010; 83540; 83550; 83615; 83735; 83883; 83970; 83986; 84156; 84157; 84300; 84443; 84466; 85014; 85018; 85025; 85027; 85046; 85055; 85610; 85730; 85999; 86038; 86140; 86160; 86162; 86334; 86335; 86850; 86880; 86900; 86901; 86920; 87015; 87070; 87075; 87116; 87205; 87206; 88104; 88108; 88184; 88305; 89051; 93005; 93306; 93970; 96360; 96361; 96365; 96366; 96375; 96376; 97110; 97116; 97161; 97165; 97530; 99285; A9270; G0378; J1756; J1940; J2405; J2704; J7030; J7050; J7120; P9016; Q5106

== ENCOUNTER 2020-05-23 10:04 | Outpatient (NON) | payer BC, SELFPAY ==
[2020-05-23 10:52] LABS: Hematocrit 32.2 % (37.0-47.0); Hemoglobin 9.9 g/dL (12.0-15.0)
[2020-05-23 11:02] LABS: Anion Gap 5 mmol/L (8-16); Blood Urea Nitrogen 16 mg/dL (7-17); Calcium 8.1 mg/dL (8.4-10.2); Carbon Dioxide 25 mmol/L (22-30); Chloride 111 mmol/L (98-107); Estimated Glomerular Filt Rate 41; Glucose 61 mg/dL (65-105); Potassium 4.7 mmol/L (3.4-5.0); Sodium 141 mmol/L (137-145)
== END 2020-05-23 10:05 ==
PROVIDERS: PCP Family Medicine; Visit Provider Physician Assistant
DX: K31.819 Angiodysplasia of stomach and duodenum without bleeding (principal); N17.9 Acute kidney failure, unspecified; N18.9 Chronic kidney disease, unspecified
CPT/HCPCS: 80048; 85014; 85018

== ENCOUNTER 2020-06-06 09:39 | Outpatient (NON) | payer BC, SELFPAY ==
[2020-06-06 10:36] LABS: Basophils Absolute Auto 0.1 K/mm3 (0.0-0.1); Basophils Percent Auto 1.5 % (0.2-1.2); Eosinophils Absolute Auto 0.3 K/mm3 (0-0.3); Hematocrit 36.3 % (37.0-47.0); Hemoglobin 12.1 g/dL (12.0-15.0); Immature Granulocyte Absolute 0.01 K/mm3 (0.00-0.031); Immature Granulocyte Percent A 0.2 % (0-0.5); Immature Platelet Fraction Pct 2.7 % (0.9-11.2); Lymphocytes Absolute Auto 0.86 K/mm3 (0.9-3.2); Lymphocytes Percent Auto 18.7 % (18.3-44.2); Mean Corpuscular HGB Conc 33.3 g/dl (32-36); Mean Corpuscular Hemoglobin 24.5 pg (26-34); Mean Corpuscular Volume 73.5 fl (80-100); Monocytes Absolute Auto 0.5 K/mm3 (0.1-0.6); Monocytes Percent Auto 10.9 % (2.6-8.5); Neutrophils Absolute Auto 2.8 K/mm3 (1.3-6.7); Neutrophils Percent Auto 61.7 % (45.5-73.1); Platelet Count Result 168 k/mm3 (150-375); Red Blood Count 4.94 M/mm3 (4.2-5.4); Red Cell Distribution Width 27.5 % (11.5-14.5); White Blood Count 4.6 K/mm3 (4.5-10.0)
[2020-06-06 10:47] LABS: Anion Gap 5 mmol/L (8-16); Blood Urea Nitrogen 13 mg/dL (7-17); Calcium 8.3 mg/dL (8.4-10.2); Carbon Dioxide 26 mmol/L (22-30); Chloride 108 mmol/L (98-107); Estimated Glomerular Filt Rate 48; Glucose 72 mg/dL (65-105); Potassium 3.7 mmol/L (3.4-5.0); Sodium 139 mmol/L (137-145)
== END 2020-06-06 09:40 ==
PROVIDERS: PCP Family Medicine; Visit Provider Family Medicine
DX: K92.89 Other specified diseases of the digestive system (principal); N18.9 Chronic kidney disease, unspecified
CPT/HCPCS: 80048; 85025; 85055

== ENCOUNTER 2020-06-18 10:55 | Outpatient (CLI) | payer BC, SELFPAY | END 2020-06-18 10:56 | disposition home or self-care (01) | LOC: ANHCOVIDVC 10:56 | PROVIDERS: PCP Family Medicine | DX: Z23 Encounter for immunization (principal) | CPT/HCPCS: 0001A; 91300 ==

== ENCOUNTER 2020-07-09 10:54 | Outpatient (CLI) | payer BC, SELFPAY | END 2020-07-09 10:55 | disposition home or self-care (01) | LOC: ANHCOVIDVC 10:54 | PROVIDERS: PCP Family Medicine | DX: Z23 Encounter for immunization (principal) | CPT/HCPCS: 0002A; 91300 ==

== ENCOUNTER 2020-09-09 20:12 | Inpatient (IN) | payer MEDICARE, BC, SELFPAY ==
--- NOTE | ~2020-09-09 | XR_ITS ---
XR abdomen obstructive series DATE: 09/11/2020 17:39 INDICATION: Generalized abdominal pain. Nausea and vomiting. No bowel movement for the past 3 days. TECHNIQUE: Portable supine and upright AP views COMPARISON: 09/11/[address] abdomen pelvis FINDINGS: Extensive thoracic and abdominal aortic and bilateral renal artery and iliac arterial calci fications. Persistent nephrograms of the kidneys following [address] abdomen pelvis examina tion suggests renal failure versus prominent dehydration. Prominent left calcified uterine fibroid. No bowel obstruction or intraperitoneal free air is evident. There are bilateral lower lobe infiltrates and/or atelectasis with air bronchograms, mild right pleur al effusion. IMPRESSION: Persistent bilateral mammogram suggesting renal failure versus severe dehydration No evidence of bowel obstruction Bilateral lower lung infiltrate and/atelectasis with air bronchograms Mild right pleural effusion Reviewed, dictated and finalized at [facility]. Reviewed, dictated and finalized at [facility]. IMPRESSION: Persistent bilateral mammogram suggesting renal failure versus usman re dehydration No evidence of bowel obstruction Bilateral lower lung infiltrate and/atelectasis with air bronchograms Mild right pleural effusion
--- NOTE | ~2020-09-09 | CT_ITS ---
EXAMINATION: CT abdomen pelvis wo con DATE: 09/11/2020 11:19 INDICATION: Constipation. TECHNIQUE: Computed tomography (CT) of the abdomen and pelvis was performed without intravenous contr ast. Automated exposure control and iterative reconstruction technique were employed. The dose-length product was 285.34 mGy-cm. COMPARISON: Chest CT 09/09/2020 FINDINGS: The visualized portions of the lung bases demonstrate emphysema. There are groundglass and airspace opacities in right middle lobe and right lower lobe with volume loss. There is septal thicke swapna bilaterally. There are moderate-sized right and small left pleural effusions. Cardiomegaly is no андрей. There are coronary artery calcifications. No pericardial effusion. Calcifications in the liver a re consistent with old granulomatous disease. The spleen is normal. There are gallstones in the gallb ladder, which is normal in size. The pancreas and adrenal glands are normal. There are persistent con trast nephrograms, consistent with decreased renal function. There are calcified fibroids in the uter us. There is diverticulosis of the colon without evidence of diverticulitis. The appendix is normal. The stomach is distended. There are no pathologically enlarged lymph nodes. There is no free intraper itoneal fluid. There is calcified atherosclerosis of the aorta and many of the other arteries. There is a graft from abdominal aorta to the external iliac arteries. There is diffuse edema of the body wa ll and thighs. There is severe thoracic spondylosis and moderate lumbar spondylosis. IMPRESSION: 1. Diffuse lung disease, likely pulmonary edema superimposed on emphysema. 2. Moderate-sized right and small left pleural effusions. 3. Cardiomegaly. 4. Markedly distended stomach. Reviewed, dictated and finalized at [facility].
--- NOTE | ~2020-09-09 | NM_ITS ---
EXAMINATION: NM abdon stress w perfusion DATE: 09/12/2020 12:03 INDICATION: Cardiomyopathy TECHNIQUE: Rest images were obtained following intravenous administration of 9.51 mCi Tc99m tetrofosm in (Myoview). The patient was infused intravenously with Lexiscan (Regadenoson). Then, 29.8 mCi Tc99m tetrofosmin (Myoview) was administered intravenously, and stress images were obtained were obtained in supine position. Patient was unable to tolerate prone imaging. Data was reconstructed into short a xis and horizontal and vertical long axis SPECT images. Gated SPECT images were also obtained. COMPARISON: None. FINDINGS: Moderate-sized moderate severity reversible perfusion defect consistent with ischemia invol ving the mid inferior, basilar inferior and mid inferolateral segments. Small mild nonreversible perf usion defect consistent with infarct at the mid anterolateral segment. There is normal left ventricu lar chamber size, wall motion and ejection fraction. Left ventricular ejection fraction measures 55% . IMPRESSION: 1. Moderate-sized perfusion defect consistent with ischemia involving primarily the right cerebral ar silvia vascular distribution in the mid and basilar inferior and mid inferolateral segments. 2. Small mild nonreversible infarct in the mid anterolateral segment. 3. Left ventricular ejection fraction measuring 55%. Reviewed, dictated and finalized at [facility]. IMPRESSION: 1. Moderate-sized perfusion defect consistent with ischemia involving primarily the right cerebral artery vascular distribution in the mid and basilar inferio r and mid inferolateral segments. 2. Small mild nonreversible infarct in the mid anterolateral segment. 3. Left ventricular ejection fraction measuring 55%.
--- NOTE | ~2020-09-09 | XR_ITS ---
EXAMINATION: XR chest 1V portable DATE: 09/11/2020 09:16 INDICATION: Right pleural effusion TECHNIQUE: frontal view of the chest was obtained. COMPARISON: Chest radiograph dated 09/10/2020 FINDINGS: Bilateral diffuse lower lung predominant increased interstitial pattern consistent with mild pulmonar y edema. More dense opacities at the bilateral lung bases consistent with small bilateral pleural eff usions and associated atelectasis or pneumonia. No pneumothorax. Cardiomegaly. Atherosclerotic aorta. Surgical clips in the left upper lumbar paraspinal region. IMPRESSION: 1. Likely congestive heart failure with cardiomegaly, diffuse pulmonary edema and small bilateral ple ural effusions. 2. Opacities at the bilateral lung bases most likely associated atelectasis although pneumonia not ex cludable. Reviewed, dictated and finalized at [facility]. IMPRESSION: 1. Likely congestive heart failure with cardiomegaly, diffuse pulmonary edema a nd small bilateral pleural effusions. 2. Opacities at the bilateral lung bases most likely associated atelectasis alt davion pneumonia not excludable.
--- NOTE | ~2020-09-09 | XR_ITS ---
EXAMINATION: [id number]_[id number]_CR DATE: 09/10/2020 12:59 INDICATION: Right pleural effusion postthoracentesis TECHNIQUE: frontal view of the chest was obtained. COMPARISON: Chest radiograph dated 09/09/2020 FINDINGS: Opacities in the right mid to lower lung zone consistent with small to moderate-sized residual right pleural effusion and residual atelectasis in the right middle and lower lobes. Left lung remains missy r. Increased lucency and architectural distortion in the upper lung zones consistent with emphysema. No pneumothorax or left-sided pleural effusion. Cardiomegaly. Atherosclerotic aorta. IMPRESSION: 1. Decreased now small to moderate right pleural effusion post right thoracentesis with residual atel ectasis and/or pneumonia in the right middle and lower lobes. 2. Emphysema. 3. Cardiomegaly. Reviewed, dictated and finalized at [facility]. IMPRESSION: 1. Decreased now small to moderate right pleural effusion post right thoracente sis with residual atelectasis and/or pneumonia in the right middle and lower lo bes. 2. Emphysema. 3. Cardiomegaly.
--- NOTE | ~2020-09-09 | US_ITS ---
EXAMINATION: US thoracentesis DATE: 09/10/2020 13:02 INDICATION: Right pleural effusion TECHNIQUE: The procedure and its risks and benefits were discussed with the patient. Potential risks discussed included bleeding, infection, and pneumothorax. The patient understood the risks and agreed to proceed. The skin was prepped and draped in sterile fashion. 1% lidocaine was used for local anes thesia. Under ultrasound guidance, a 5 Fr catheter with trochar was advanced into the right pleural e ffusion. Fluid was aspirated. The catheter was removed, and a dressing was applied. There were no imm ediate complications. FINDINGS: Ultrasound images demonstrate a large right pleural effusion and the catheter within the fluid. IMPRESSION: 1. Successful ultrasound-guided thoracentesis yielding 1000 mL of clear yellow fluid. Reviewed, dictated and finalized at [facility].
--- NOTE | ~2020-09-09 | XR_ITS ---
XR chest 2V DATE: 09/09/2020 20:47 INDICATION: Shortness of breath. Congestive heart failure. Hypertension. TECHNIQUE: AP and lateral views COMPARISON: 05/11/2020 AP and lateral chest FINDINGS: There is a large right pleural effusion with compressive atelectasis of the right mid and l ower lung. There is minimal infiltrate or atelectasis in the left lower lung. There is cardiomegaly. There is thoracic aortic calcification. IMPRESSION: Increased large right pleural effusion since 05/11/2020 with associated compressive lung a telectasis Reviewed, dictated and finalized at [facility]. IMPRESSION: Increased large right pleural effusion since 05/11/2020 with associa андрей compressive lung atelectasis
--- NOTE | ~2020-09-09 | CT_ITS ---
EXAMINATION: CTA chest PE protocol DATE: 09/09/2020 23:04 INDICATION: Shortness of breath and elevated d-dimer TECHNIQUE: Computed tomography angiography (CTA) of the chest was performed with 100 mL Omnipaque-350 intravenous contrast timed to evaluate the pulmonary arteries. Coronal maximum intensity projection 3D-reconstructions were created by the technologist. Automated exposure control and iterative reconst ruction technique were employed. Exam dose: 163.21 mGy-cm total exam DLP. COMPARISON: 09/09/2020 2 view chest FINDINGS: There is diagnostic contrast enhancement of pulmonary stenosis of pulmonary embolism. No thoracic aortic aneurysm is evident. No hilar or mediastinal mass lesion or lymphadenopathy is jl dent. Cardiomegaly. No pericardial effusion. There is a very large right pleural effusion with prominent compressive right lower lobe and middle l obe atelectasis. There is mild infiltrate or atelectasis in the dependent left lower lobe. Prominent emphysematous changes of the lungs are noted. IMPRESSION: No evidence of pulmonary embolism Cardiomegaly Large right pleural effusion with associated prominent compressive atelectasis of the middle and righ t lower lobe intra-articular COPD Reviewed, dictated and finalized at [facility]. Reviewed, dictated and finalized at [facility]. IMPRESSION: No evidence of pulmonary embolism Cardiomegaly Large right pleural effusion with associated prominent compressive atelectasis of the middle and right lower lobe intra-articular COPD
[2020-09-09 20:17] VITALS: BP 167/97; PULSE 82; RESP 28; O2SAT 96
--- NOTE | 2020-09-09 20:23 | ECG_ITS ---
Measurements Intervals [place] Rate: 80 P: 46 SD: 149 QRS: 118 QRSD: 86 T: 116 QT: 380 QTc: 439 Interpretive Statements SINUS RHYTHM VENTRICULAR PREMATURE COMPLEX POSSIBLE LEFT ATRIAL ENLARGEMENT INCOMPLETE RIGHT BUNDLE BRANCH BLOCK DELAYED PRECORDIAL R/S TRANSITION BORDERLINE T WAVE ABNORMALITY- LAT/HIGH LAT LEADS BASELINE WANDER- II, III, AVR, AVL, AVF, V2 BORDERLINE ECG Electronically Signed On 09-10-2020 6:01:15 CDT by Gael Steward D.O.
[2020-09-09 21:08] VITALS: PULSE 80; O2SAT 96
--- NOTE | 2020-09-09 21:33 | ED.SOB ---
HPI - SOB/Dyspnea General Chief Complaint: Shortness of Breath/Dyspnea Stated Complaint: sob, anxious, nausea Time Seen by Provider: 09/09/20 21:11 Source: patient, EMS and RN notes reviewed Mode of arrival: EMS Limitations: no limitations History of Present Illness HPI Narrative: Patient is 74 years old -[place] female lives alone, brought to the emergency room by ambulance because of increased shortness of breath and weakness. History of shortness of breath but today is worse. Patient denies any fever, chills, nausea, vomiting, chest pain. History of congestive heart failure, anemia, CKD, peripheral vascular disorder, pleural effusion and hypertension. Patient is actively smoking, been vaccinated for COVID-19 months ago. Related Data Home Medications Medication Instructions Recorded Confirmed aspirin 81 mg PO DAILY 05/10/20 05/10/20 zolpidem 5 mg PO HS PRN 05/10/20 05/10/20 Allergies Allergy/AdvReac Type Severity Reaction Status Date / Time Penicillins Allergy Unknown Unknown Verified 05/10/20 16:07 Review of Systems Review of Systems: Narrative: CONSTITUTIONAL: Denies fever, chills, or sweats. EYES: Denies visual changes, redness, or discharge. ENT: Denies rhinorrhea, congestion, sore throat, or otalgia. CARDIOVASCULAR: Denies chest pain, palpitations, or edema. RESPIRATORY: Denies cough or dyspnea. GASTROINTESTINAL: Denies abdominal pain, nausea, vomiting, or diarrhea. GENITOURINARY: Denies dysuria or hematuria. SKIN: Denies rash or itching. MUSCULOSKELETAL: Denies back pain, joint pain, or myalgia. NEUROLOGIC: Denies headache, numbness, or weakness. PSYCHIATRIC: Denies anxiety or depression. [facility] Past Medical History Medical History Acute kidney injury Acute on chronic renal failure Cardiomyopathy CHF (congestive heart failure) 35-40% ef Hypertension Pleural effusion PVD (peripheral vascular disease) Severe anemia Surgical History Surgical History H/O endovascular stent graft for abdominal aortic aneurysm Hx of aorto-femoral bypass Family History Family History Other Unknown family medical history Social History Social History Social History: Patient is . She lives with her son. 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 She occasionally drinks a beer. Her son is a durable power criminal attorney and she is a full code. She does use any marijuana or illicit drugs. She does still continues to smoke about 5 or 6 cigarettes a day and she smoked for over 60 years. Smoking packs per day: 0.5 Smoking cigarettes per day: 10.0 Years smoked: 60 Smoking pack-years: 30.00 Smoking status: Current every day smoker Tobacco type: cigarettes Second hand tobacco smoke exposure: No Alcohol intake: former Drinks per week: 2 Substance use: never Substance use type: does not use Gender identity (if verbalized by the patient): Female Spiritual care concerns: No Exam Narrative: Exam Narrative: General appearance: Well-developed , emphysematous looking, malnourished Skin: 2+ edema lower extremity bilaterally up to the knees Head: Normocephalic, nontraumatic Eyes: Clear conjunctiva ENT: Oropharynx normal, ears normal, nose normal Neck: Supple, nontender Chest and respiratory: Marked diminution of air entry bilaterally, no wheezing or rhonchi Heart: Regular rate/rhythm Abdomen: Soft, nontender, no organomegaly, quiet bowel sounds Vascular: Normal peripheral pulses, normal capillary refill. Musculoskeletal: Normal range of motion, nontender back Neurologic: Alert and oriented ?3, POTTER [employer] CERAMIC ARTIST is normal as tested, no gross motor deficit
[2020-09-09 21:36] LABS: Basophils Percent Auto 0.5 % (0.2-1.2); Eosinophils Absolute Auto 0.1 K/mm3 (0-0.3); Eosinophils Percent Auto 1.9 % (0-4.4); Hematocrit 37.8 % (37.0-47.0); Hemoglobin 13.3 g/dL (12.0-15.0); Immature Granulocyte Absolute 0.03 K/mm3 (0.00-0.031); Immature Granulocyte Percent A 0.5 % (0-0.5); Immature Platelet Fraction Pct 3.5 % (0.9-11.2); Lymphocytes Absolute Auto 0.63 K/mm3 (0.9-3.2); Lymphocytes Percent Auto 10.6 % (18.3-44.2); Mean Corpuscular HGB Conc 35.2 g/dl (32-36); Mean Corpuscular Hemoglobin 28.7 pg (26-34); Mean Corpuscular Volume 81.6 fl (80-100); Mean Platelet Volume 9.4 fl (7.4-10.4); Monocytes Absolute Auto 0.3 K/mm3 (0.1-0.6); Monocytes Percent Auto 4.2 % (2.6-8.5); Neutrophils Absolute Auto 4.9 K/mm3 (1.3-6.7); Neutrophils Percent Auto 82.3 % (45.5-73.1); Platelet Count Result 162 k/mm3 (150-375); Red Blood Count 4.63 M/mm3 (4.2-5.4); Red Cell Distribution Width 16.2 % (11.5-14.5); White Blood Count 5.9 K/mm3 (4.5-10.0)
[2020-09-09 21:53] LABS: Anion Gap 5 mmol/L (8-16); Blood Urea Nitrogen 20 mg/dL (7-17); Calcium 8.7 mg/dL (8.4-10.2); Carbon Dioxide 32 mmol/L (22-30); Chloride 105 mmol/L (98-107); Estimated CRCL calculation 25 ml/min; Estimated Glomerular Filt Rate 44; Glucose 105 mg/dL (65-105); Potassium 4.1 mmol/L (3.4-5.0); Sodium 142 mmol/L (137-145)
[2020-09-09 21:54] LABS: Alveolar/Arterial O2 Gradient 61.7 mmHg; Base Excess ABG 0.8 mEq/l (+/-2.0); Fractional Inspired Oxygen 28 %; HCO3 ABG 28.5 mEq/l (22.0-26.0); Oxygen Content ABG 16.8 %vol (16.0-22.0); Oxygen Saturation ABG 91.4 % (95.0-100.0); PCO2 ABG 59.2 mmHg (35.0-45.0); PO2 ABG 68.1 mmHg (80.0-100.0); PO2 FiO2 Ratio Arterial Blood 2.43 %; Total Hemoglobin 13.4 g/dL (12.0-18.0)
[2020-09-09 21:55] LABS: Device NASAL CANNULA; Site Drawn RIGHT BRACHIAL
[2020-09-09 22:05] VITALS: BP 163/70; PULSE 66; RESP 18; O2SAT 95
[2020-09-09 22:05] LABS: NT Pro B Type Natriuretic Pept > 35000 pg/mL (5-100); Troponin I 0.027 ng/mL (0.000-0.034)
[2020-09-09 22:23] LABS: Prothrombin Time 13.7 Seconds (11.1-14.7)
[2020-09-09 22:24] LABS: Partial Thromboplastin Time 29.7 SECONDS (22.3-36.8)
[2020-09-09 22:40] LABS: D Dimer 4.23 ug/mL (<0.48)
[2020-09-09 23:05] LABS: Add Urine Microscopic? YES; Appearance Urine Cloudy (Clear); Bilirubin Urine Negative (Negative); Blood Urine 1+ (Negative); Color Urine Amber (Yellow); Glucose Urine UA Negative (Negative); Ketones Urine Negative (Negative); Leukocyte Esterase Ur Negative LEU/UL (Negative); Mucus Urine Rare /lpf; Nitrate Urine Negative (Negative); Protein Urine 3+ mg/dL (Negative); Specific Grav Ur 1.018 (1.001-1.035); Squamous Epithelial Cell Urine Few /hpf (Few)
[2020-09-10] VITALS (19 sets, daily range): BP systolic 134–182; BP diastolic 65–99; PULSE 72–93; RESP 16–30; TEMP 36.3–36.9; O2SAT 81–100; BMI 20.9
--- NOTE | 2020-09-10 | ECHO_ITS ---
Patient Info Name: Alina Allen Age: 74 years : 1945 Gender: Female Ht: 63 in Wt: 117 lbs BSA: 1.54 m2 HR: 78 bpm BP: 150 / 69 mmHg Technical Quality: Good Exam Date: 09/10/2020 4:02 PM Exam Location: [facility] Patient Status: Inpatient Admit Date: 09/10/2020 Staff Ordering Physician: Emigdio Grey MD Credit Support Counselor: Nely Barbosa RDCS Attending Provider: Prakash Nelson MD Referring Physician: Que ADHIKARI; Exam Type: CA echo doppler color flow Study Info Indications - chf Complete two-dimensional, color flow and Doppler transthoracic echocardiogram is performed. Summary 1. Complete two-dimensional, color flow and Doppler transthoracic echocardiogram is performed. 2. Left ventricular chamber dimension is moderately enlarged. 3. Left ventricular systolic function is severely reduced, estimated at 20-25%. 4. There is mildly increased left ventricular wall thickness. 5. The left ventricular diastolic function is grade I diastolic dysfunction. 6. E/e' 23.0 is elevated. 7. Right ventricular chamber dimension is normal. 8. Right ventricular systolic function is reduced. 9. Left atrial chamber dimension is severely enlarged. 10. Right atrial chamber dimension is mildly enlarged. 11. There is mild aortic valve sclerosis. 12. There is moderate mitral valve regurgitation. 13. There is moderate tricuspid valve regurgitation. 14. Mild pulmonary hypertension, estimated pulmonary arterial systolic pressure is 44 mmHg. 15. There is mild pulmonic regurgitation. Left Ventricle Left ventricular chamber dimension is moderately enlarged. Left ventricular systolic function is severely reduced, estimated at 20-25%. There is mildly increased left ventricular wall thickness. Left ventricular septal wall motion is normal. The left ventricular diastolic function is grade I diastolic dysfunction. E/e' 23.0 is elevated. Right Ventricle Right ventricular chamber dimension is normal. Right ventricular systolic function is reduced. Left Atria Left atrial chamber dimension is severely enlarged. Right Atria Right atrial chamber dimension is mildly enlarged. Atrial Septum Intact interatrial septum visualized by color flow imaging. Aortic Valve The aortic valve is trileaflet. There is mild aortic valve sclerosis. There is no aortic valve stenosis. There is no aortic valve regurgitation. Pulmonic Valve The pulmonic valve is normal. There is no pulmonic valve stenosis. There is mild pulmonic regurgitation. Mitral Valve The mitral valve has thickened leaflets. There is no mitral valve stenosis. There is moderate mitral valve regurgitation. Tricuspid Valve The tricuspid valve leaflets are normal. There is no significant tricuspid valve stenosis. There is moderate tricuspid valve regurgitation. Mild pulmonary hypertension, estimated pulmonary arterial systolic pressure is 44 mmHg. Pericardium/Pleural The pericardium appears normal. There is no pericardial effusion. Inferior Vena Cava Normal inferior vena cava with <50% collapse upon inspiration consistent with elevated right atrial pressure, 10 mmHg. Aorta The aortic root size at the sinus of Valsalva is normal. The prox ascending aorta size is normal. Left Ventricular Outflow Tract Name Value Normal
--- NOTE | 2020-09-10 01:40 | ADMGEN ---
This patient, Alina Allen, was admitted to [facility] Surg Room 312-01. Patient/family oriented to hospital policies and general routines including ID bracelet, bed and alarms, visiting hours, pain management, procedures, bathroom and other care routines, personal items, smoking policy, room service/diet, and visiting hours. Information on how to activate the Rapid Response Team has been discussed. Patient/Family are encouraged to report perceived risks to care and to ask questions if they do not understand what they are told or what they should do.
[2020-09-10] MEDS: ALBUTEROL SULFATE NEB 2.5 MG/0.5 ML INH 5 MG INHALATION ×4 (02:58→19:37)
[2020-09-10] MEDS: IPRATROPIUM BR 0.02% INH SOLN 0.5 MG/2.5 ML VIAL INHALATION ×4 (02:58→19:37)
[2020-09-10 04:05] LABS: Troponin I 0.018 ng/mL (0.000-0.034)
--- NOTE | 2020-09-10 06:56 | PM.IMHP ---
H&P: HPI History of Present Illness Date/Time: 09/10/20 06:56 Chief Complaint: shortness of breath Narrative: Patient is 74 years old -[place] female lives alone, brought to the emergency room by ambulance because of increased shortness of breath and weakness. History of shortness of breath chronically but today is worse. Patient denies any fever, chills, nausea, vomiting, chest pain. History of congestive heart failure, anemia, CKD, peripheral vascular disorder, pleural effusion and hypertension. Patient is actively smoking, been vaccinated for COVID-19 months ago. she is resistnat on staying in the hospital for further workup. she reports leg swelling bialterally Review of Systems Review of Systems: Narrative: - CONSTITUTIONAL: Denies weight loss, fever and chills. - HEENT: Denies changes in vision and hearing - RESPIRATORY: reprots SOB and cough. - CV: Denies palpitations and CP. - GI: Denies abdominal pain, nausea, vomiting and diarrhea. - : Denies dysuria and urinary frequency. - MSK: Denies myalgia and joint pain. - SKIN: Denies rash and pruritus. - NEUROLOGICAL: Denies headache and syncope. - PSYCHIATRIC: Denies recent changes in mood. Denies anxiety and depression. All systems reviewed & are unremarkable except as noted in HPI and below Constitutional: Constitutional: Reports fatigue and Reports weakness Neurologic: Reports weakness Endocrine: Endocrine: Reports fatigue PMFSH Past Medical History Medical History Acute kidney injury Acute on chronic renal failure Cardiomyopathy CHF (congestive heart failure) 35-40% ef Hypertension Pleural effusion PVD (peripheral vascular disease) Severe anemia Surgical History Surgical History H/O endovascular stent graft for abdominal aortic aneurysm Hx of aorto-femoral bypass Family History Family History Other Unknown family medical history Social History Social History Social History: Patient is . She lives with her son. 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 She occasionally drinks a beer. Her son is a durable power third officer and she is a full code. She does use any marijuana or illicit drugs. She does still continues to smoke about 5 or 6 cigarettes a day and she smoked for over 60 years. Smoking packs per day: 0.5 Smoking cigarettes per day: 10.0 Years smoked: 60 Smoking pack-years: 30.00 Smoking status: Never smoker Tobacco type: cigarettes Second hand tobacco smoke exposure: No Alcohol intake: never Drinks per week: 2 Substance use: never Substance use type: does not use Gender identity (if verbalized by the patient): Female Spiritual care concerns: No Meds Home Medications and Allergies Home Medications Medication Instructions Recorded Confirmed Type aspirin 81 mg PO DAILY 05/10/20 09/10/20 History zolpidem 5 mg PO HS PRN 05/10/20 09/10/20 History furosemide [Lasix] 40 mg PO DAILY #30 tablet 05/16/20 09/10/20 Rx lisinopril 20 mg PO DAILY #30 tablet 05/16/20 09/10/20 Rx metoprolol succinate 50 mg PO QAM #30 tablet 05/16/20 09/10/20 Rx potassium chloride 20 meq PO DAILY #30 tablet 05/16/20 09/10/20 Rx ferrous sulfate 325 mg PO BID 09/10/20 09/10/20 History loratadine [Claritin] 10 mg PO DAILY PRN 09/10/20 09/10/20 History Allergies Allergy/AdvReac Type Severity Reaction Status Date / Time Penicillins Allergy Unknown Unknown Verified 05/10/20 16:07 Vital Signs Vital Signs - 24 hr 09/09/20 20:17 09/09/20 21:08 09/09/20 22:05 Temperature Pulse Rate 82 80 66 Respiratory Rate 28 H 18 Blood Pressure 167/97 H 163/70 H Pulse Oximetry 96 96 95 09/10/20 01:25 09/10/20 01:55 09/10/20 02:02 Temperature 98.3 F 97.
[2020-09-10] MEDS: FERROUS SULFATE 324 MG TABLET PO ×2 (08:37→16:38)
[2020-09-10] MEDS: ASPIRIN 81 MG CHEWABLE TABLET PO (08:37)
[2020-09-10] MEDS: FUROSEMIDE INJ 40 MG/4 ML VIAL IV PUSH ×2 (08:37→16:38)
[2020-09-10] MEDS: lisinopriL 20 MG TABLET PO (08:38)
[2020-09-10] MEDS: METOPROLOL SUCCINATE EXT REL 50 MG TABCR PO (08:38)
[2020-09-10] MEDS: POTASSIUM CHLORIDE 20 MEQ TABLET.ER PO (08:38)
[2020-09-10 08:46] LABS: Hematocrit 38.5 % (37.0-47.0); Hemoglobin 13.1 g/dL (12.0-15.0); Immature Platelet Fraction Pct 2.6 % (0.9-11.2); Mean Corpuscular Hemoglobin 27.9 pg (26-34); Mean Corpuscular Volume 81.9 fl (80-100); Platelet Count Result 158 k/mm3 (150-375); Red Cell Distribution Width 16.3 % (11.5-14.5); White Blood Count 5.3 K/mm3 (4.5-10.0)
[2020-09-10 08:56] LABS: Alanine Aminotransferase 19 U/L (4-35); Albumin Level 3.2 g/dL (3.5-5.1); Alkaline Phosphatase 96 U/L (38-126); Anion Gap 8 mmol/L (8-16); Aspartate Amino Transferase 36 U/L (14-36); Bilirubin,Total 0.5 mg/dL (0.2-1.3); Blood Urea Nitrogen 22 mg/dL (7-17); Calcium 8.5 mg/dL (8.4-10.2); Carbon Dioxide 22 mmol/L (22-30); Chloride 107 mmol/L (98-107); Estimated CRCL calculation 26 ml/min; Estimated Glomerular Filt Rate 44; Glucose 142 mg/dL (65-105); Lactate Dehydrogenase 535 U/L (313-618); Magnesium 1.8 mg/dL (1.6-2.3); Potassium 4.7 mmol/L (3.4-5.0); Sodium 137 mmol/L (137-145)
--- NOTE | 2020-09-10 09:58 | PM.CNPUL ---
Assessment and Plan Assessment and plan (1) Pleural effusion: Code(s): J90 - Pleural effusion, not elsewhere classified Status: Acute Assessment and Plan: Patient with a history of a transudative right pleural effusion by thoracentesis on 05/13/2020. At that time she had and fusion approximately 1/2 way up the right hemithorax with a thoracentesis of 850 mL of clear yellow fluid removed and her chest x-ray showed only a small right pleural effusion post thoracentesis. Patient presents again on 09/09 with a right pleural effusion approximately 1/2 way up the right hemithorax. currently patient is symptomatic and I agree with thoracentesis and repeat studies to evaluate trans date verses exudative pleural effusion. At this time the patient has no infectious complaints and I agree with no antibiotics. I agree with as aggressive diuresis as tolerated by her cardiac and renal systems per the hospitalist and Cardiology teams. (2) COPD (chronic obstructive pulmonary disease): Qualifiers: COPD type: unspecified COPD Qualified Code(s): J44.9 - Chronic obstructive pulmonary disease, unspecified Code(s): J44.9 - Chronic obstructive pulmonary disease, unspecified Status: Acute Assessment and Plan: Patient with a history of moderate to severe apical predominant centrilobular emphysema on her CT scan from 09/09/2020 with a history of tobacco exposure. Patient states that she has quit 2 weeks ago. Patient denies any prior exacerbations and has not been wheezing during this hospitalization. I am not convinced this is a current COPD exacerbation. If patient remains symptomatic after her thoracentesis I will consider treating for an active COPD exacerbation. At this time I will continue albuterol 2.5 mg nebs Q 4 hours while awake and ipratropium 0.5 mg nebs q.4 hours while awake. I do not see need for inhaled corticosteroids or systemic corticosteroids at this time. Goal saturation 90-94% with nasal cannula oxygen. Wean as tolerated. Will follow with you. History of Present Illness History of Present Illness Consult date: 09/10/20 Reason for consult: pleural effusion Chief complaint: Large right pleural effusion, COPD exacerbation Narrative: 09/10 74-year-old woman with a history of cardiomyopathy with an EF of 35-40%, hypertension, PVD s/p stent to both legs on aspirin, COPD on no medications ( moderate to severe apical predominant centrilobular emphysema on CT scan from 09/09/2020) and a right-sided transudative pleural effusion status post thoracentesis on 05/13/2020 of 850 ml clear yellow fluid with negative cultures and gram stain with NOS, pH 7.40, glucose 88, LDH pleural 42/serum 520 with a ratio of 0.8, total protein pleural less than 3 /serum 7.0 with a ratio less than 0.42, white blood cell differential neutrophils 20%, lymphocytes 50%, macrophages 17% mesothelial cells 8% and negative cytology. Currently patient tells me she has 2 weeks of worsening cough, sinus congestion, wheezes and production of white phlegm. Patient states that over the last week she has developed some worsening shortness of breath. Patient denies fever, rigors or hemoptysis but does state that she has had a cold feeling. Patient is COVID vaccinated of couple of months ago and has no recent exposure to COVID. In ED WBC 5.9K, Cr 1.40, BNP > 08534, ABG on 2 L 7.30/59/68. CTA in ED demonstrated no PE, large R effusion, and moderate to severe apical predominant centrilobular emphysema. Treated with lasix 40 IV BID, albuterol anmd ipratroprium nebs. Patient smoked tobacco from age 17-2 weeks ago at 1/2 pack per day for total of 29 pack years. 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 Patient has had no COPD exacerbations in the last year. On a good day patient can walk 30 ft and does not stop for shortness of breath. Revi
[2020-09-10 10:01] LABS: Prothrombin Time 13.6 Seconds (11.1-14.7)
[2020-09-10 10:02] LABS: Partial Thromboplastin Time 28.8 SECONDS (22.3-36.8)
[2020-09-10] MEDS: ONDANSETRON INJ 4 MG/2 ML VIAL IV PUSH (11:17)
--- NOTE | 2020-09-10 12:54 | PM.IMPN ---
Progress Note: A&P Assessment and Plan (1) Pleural effusion: Code(s): J90 - Pleural effusion, not elsewhere classified Status: Acute Assessment and Plan: Patient presents with worsening shortness of breath. Chest XR and CTA chest demonstrated a very large right pleural effusion in the middle and right lower lobe. Underwent a US-guided thoracentesis which yielded 1L clear yellow fluid; pH 7.38. Will be sent for further analysis. She is s/p thoracentesis May 2020 she was felt to be transudative likely from her CHF. Again suspect CHF is the most likely cause. BNP > 35,000. Continue aggressive diuresis with IV Lasix and appreciate Cardiology input. Spironolactone added. Low-sodium diet. (2) COPD (chronic obstructive pulmonary disease): Qualifiers: COPD type: unspecified COPD Qualified Code(s): J44.9 - Chronic obstructive pulmonary disease, unspecified Code(s): J44.9 - Chronic obstructive pulmonary disease, unspecified Status: Chronic Assessment and Plan: Continue bronchodilator therapy with duo nebs. Appreciate pulmonology input. (3) CHF (congestive heart failure): Qualifiers: Heart failure chronicity: acute on chronic Heart failure type: combined systolic and diastolic Qualified Code(s): I50.43 - Acute on chronic combined systolic (congestive) and diastolic (congestive) heart failure Code(s): I50.9 - Heart failure, unspecified Status: Acute Assessment and Plan: Known EF 35-40% back in May 2020, repeat echocardiogram pending. Appreciate cardiology input. Noted Dr Grey's plan for increased diuresis with IV Lasix and added spironolactone, considering Entresto. Lexiscan inpatient v. outpatient follow up. (4) CKD (chronic kidney disease): Qualifiers: Chronic kidney disease stage: stage 3 (moderate) Chronic kidney disease stage 3 subtype: stage 3b (GFR 30-44) Qualified Code(s): N18.32 - Chronic kidney disease, stage 3b Code(s): N18.9 - Chronic kidney disease, unspecified Status: Chronic Assessment and Plan: Cr 1.4 at her baseline today. Monitor renal function and electrolytes daily with diuresis. (5) Hypertension: Qualifiers: Hypertension type: essential hypertension Qualified Code(s): I10 - Essential (primary) hypertension Code(s): I10 - Essential (primary) hypertension Status: Chronic Assessment and Plan: Blood pressures elevated, last 167/99 maintained on her home lisinopril. Cardiology added spironolactone. (6) PVD (peripheral vascular disease): Code(s): I73.9 - Peripheral vascular disease, unspecified Status: Chronic Assessment and Plan: With history of multiple vascular procedures last with lower extremity stent placement October 2019. Follows with Dr. Carrillo. (7) Anemia: Code(s): D64.9 - Anemia, unspecified Status: Resolved Assessment and Plan: History of severe anemia during her recent hospitalization with GI bleeding. No evidence of acute bleeding. Monitor CBC. Subjective Date/time seen: 09/10/20 1100 Interval history: Ms. Allen is a 74yo F admitted with large right pleural effusion. She reports shortness of breath but is in no respiratory distress. Denies chest pain. She is nauseous from being hungry, NPO for procedure. She feels weak. Exam Narrative: Exam Narrative: GENERAL: Female resting comfortably supine in bed in no acute distress. HEENT: Normocephalic, EOMI. Oral mucosa moist. HEART: Rate and rhythm regular. LUNGS: Diminished breath sounds CANDE, respirations even and nonlabored, tolerating room air. ABDOMEN: Soft, non-tender
--- NOTE | 2020-09-10 13:10 | PCOTNOTE ---
Attempted OT evaluation, per RN patient just returned from procedure and cannot get out of bed at this time. will follow and attempt at later time.
--- NOTE | 2020-09-10 13:14 | PM.CNCAR ---
Assessment and Plan Assessment and plan (1) CHF (congestive heart failure): Qualifiers: Heart failure type: combined systolic and diastolic Heart failure chronicity: acute on chronic Qualified Code(s): I50.43 - Acute on chronic combined systolic (congestive) and diastolic (congestive) heart failure Code(s): I50.9 - Heart failure, unspecified Status: Acute Assessment and Plan: Acute on chronic. Possibly ischemic. Will repeat a 2D echocardiogram with Doppler. Diuresis with 40 mg IV Lasix q.12 hours and will add spironolactone 25 mg daily. Will DC further potassium supplementation. Intake and output and daily weights. Continue lisinopril, metoprolol. If cost effective, consider transitioning to Entresto. She will need follow-up and I recommend a Lexiscan myocardial perfusion study either as an outpatient or inpatient (2) Cardiomyopathy: Code(s): I42.9 - Cardiomyopathy, unspecified Status: Acute Assessment and Plan: Possibly ischemic. Will repeat echocardiogram as above. (3) Pleural effusion: Code(s): J90 - Pleural effusion, not elsewhere classified Status: Acute Assessment and Plan: Status post thoracentesis (4) CKD (chronic kidney disease): Qualifiers: Chronic kidney disease stage: stage 3 (moderate) Chronic kidney disease stage 3 subtype: stage 3b (GFR 30-44) Qualified Code(s): N18.32 - Chronic kidney disease, stage 3b Code(s): N18.9 - Chronic kidney disease, unspecified Status: Chronic (5) Hypertension: Qualifiers: Hypertension type: essential hypertension Qualified Code(s): I10 - Essential (primary) hypertension Code(s): I10 - Essential (primary) hypertension Status: Chronic Assessment and Plan: Above goal (6) PVD (peripheral vascular disease): Code(s): I73.9 - Peripheral vascular disease, unspecified Status: Chronic Assessment and Plan: Followed by Dr. Carrillo. Continue anti-platelet agent. History of Present Illness History of Present Illness Consult date/time: 09/10/20 13:14 Requesting physician: Prakash Nelson MD Consult reason: congestive heart failure Reason For Visit: Large right pleural effusion, COPD exacerbation Narrative: Date of service 09/10/2020: History: Patient is a 74-year-old female who does have a history of cardiomyopathy. She has ejection fraction by echocardiogram of 35-40%. She also has chronic kidney disease. She was admitted to the hospital earlier this year because of severe anemia. She came back to the hospital yesterday because of shortness of breath. She has been more short of breath for the past week and she is dyspneic by doing almost any activity. She denies any chest pain. She has had worsening bilateral lower extremity swelling off and on x3 weeks also. She denies any paroxysmal nocturnal dyspnea, syncope, presyncope. No palpitations but does feel like she has to vomit with almost any food intake. She came to the hospital had a BNP of greater than 35,000 as well as large pleural effusions. She is breathing easier at this point and is anxious to go home Review of Systems Review of Systems: All systems reviewed & are unremarkable except as noted in HPI and below Constitutional: Constitutional: Denies weakness Eyes: Eyes: Denies blurry vision ENT: Reports Normal hearing present Cardiovascular: Cardiovascular: Denies chest pain, Reports pedal edema and Reports leg edema Respiratory: Respiratory: Reports dyspnea Gastrointestinal: Gastrointestinal: Denies abdominal pain and Reports vomiting Genitourinary: Genitourinary: Denies flank pain Musculoskeletal: Musculoskeletal: Denies neck pain Integumentary/Breasts: Skin/Breast: Denies dry skin Neurologic: Denies headache(s) and Denies numbness Psychiatric: Psychiatric: Denies anxiety and Denies confusion Endocrine: Endocrine: Denies fatigue and Denies flushing Hematolo
[2020-09-10 13:48] LABS: Appearance Pleural Fluid Clear (Clear); Color Pleural Fluid Yellow (Colorless); Pleural fluid source Pleural fluid
[2020-09-10 13:49] LABS: Lymphocytes Pleural Fluid 49 %; Macrophages Pleural Fluid 2 %; Mesothelial Cells Pleural Flui 3 %; Monocytes Pleural Fluid 10 %; Neutrophils Pleural Fluid 36 % (0-25)
[2020-09-10] MEDS: MORPHINE SULFATE (*CRX) 4 MG/ML INJ IV PUSH (19:53)
[2020-09-11] VITALS (17 sets, daily range): BP systolic 128–146; BP diastolic 42–78; PULSE 68–79; RESP 16–20; TEMP 36.2–36.6; O2SAT 91–100
[2020-09-11] MEDS: ALBUTEROL SULFATE NEB 2.5 MG/0.5 ML INH 5 MG INHALATION ×5 (01:51→20:28)
[2020-09-11] MEDS: IPRATROPIUM BR 0.02% INH SOLN 0.5 MG/2.5 ML VIAL INHALATION ×5 (01:51→20:29)
[2020-09-11] MEDS: MORPHINE SULFATE (*CRX) 4 MG/ML INJ IV PUSH (04:19)
[2020-09-11 06:03] LABS: Basophils Percent Auto 0.2 % (0.2-1.2); Eosinophils Percent Auto 0.3 % (0-4.4); Hematocrit 37.3 % (37.0-47.0); Hemoglobin 12.7 g/dL (12.0-15.0); Immature Granulocyte Absolute 0.03 K/mm3 (0.00-0.031); Immature Granulocyte Percent A 0.3 % (0-0.5); Lymphocytes Absolute Auto 0.58 K/mm3 (0.9-3.2); Mean Corpuscular Hemoglobin 28.1 pg (26-34); Mean Corpuscular Volume 82.5 fl (80-100); Monocytes Absolute Auto 0.9 K/mm3 (0.1-0.6); Monocytes Percent Auto 9.1 % (2.6-8.5); Neutrophils Absolute Auto 8.2 K/mm3 (1.3-6.7); Neutrophils Percent Auto 84.1 % (45.5-73.1); Platelet Count Result 154 k/mm3 (150-375); Red Blood Count 4.52 M/mm3 (4.2-5.4); Red Cell Distribution Width 15.7 % (11.5-14.5); White Blood Count 9.7 K/mm3 (4.5-10.0)
[2020-09-11 06:07] LABS: Alanine Aminotransferase 16 U/L (4-35); Albumin Level 3.1 g/dL (3.5-5.1); Alkaline Phosphatase 78 U/L (38-126); Anion Gap 8 mmol/L (8-16); Aspartate Amino Transferase 24 U/L (14-36); Bilirubin,Total 0.3 mg/dL (0.2-1.3); Blood Urea Nitrogen 28 mg/dL (7-17); Calcium 8.5 mg/dL (8.4-10.2); Carbon Dioxide 29 mmol/L (22-30); Chloride 103 mmol/L (98-107); Estimated CRCL calculation 15 ml/min; Estimated Glomerular Filt Rate 24; Glucose 98 mg/dL (65-105); Magnesium 1.8 mg/dL (1.6-2.3); Potassium 5.3 mmol/L (3.4-5.0); Sodium 140 mmol/L (137-145)
[2020-09-11] MEDS: FERROUS SULFATE 324 MG TABLET PO ×2 (08:20→17:14)
[2020-09-11] MEDS: ASPIRIN 81 MG CHEWABLE TABLET PO (08:20)
[2020-09-11] MEDS: FUROSEMIDE INJ 40 MG/4 ML VIAL IV PUSH (08:20)
[2020-09-11] MEDS: SPIRONOLACTONE 25 MG TABLET PO (08:20)
[2020-09-11] MEDS: lisinopriL 20 MG TABLET PO (08:20)
[2020-09-11] MEDS: METOPROLOL SUCCINATE EXT REL 50 MG TABCR PO (08:20)
--- NOTE | 2020-09-11 08:57 | PCPTNOTE ---
Attempted PT evaluation. Pt refusing at this time due to indigestion and fatigue. Agreeable to evaluation after lunch. Will follow. TOSHA TrianaT
--- NOTE | 2020-09-11 09:20 | PM.PNPUL ---
Progress Note: A&P Assessment and Plan (1) Pleural effusion: Code(s): J90 - Pleural effusion, not elsewhere classified Status: Acute Assessment and Plan: 09/10 Patient with a history of a transudative right pleural effusion by thoracentesis on 05/13/2020. At that time she had and fusion approximately 1/2 way up the right hemithorax with a thoracentesis of 850 mL of clear yellow fluid removed and her chest x-ray showed only a small right pleural effusion post thoracentesis. Patient presents again on 09/09 with a right pleural effusion approximately 1/2 way up the right hemithorax. currently patient is symptomatic and I agree with thoracentesis and repeat studies to evaluate trans date verses exudative pleural effusion. At this time the patient has no infectious complaints and I agree with no antibiotics. S/P 1000 ml clear yellow fluid with pH 7.38, Cell count with differential neutrophils 36%, lymphocytes 49% monocytes 10 macrophages 2% mesothelial cells 3%. G stain with white blood cells and no organisms seen. 09/11 I discussed the cytospin results with the pathologist who said that he noticed a cluster of cells that were suggestive of neoplasm. More definitive data will hopefully result from the cell block which should be back on 09/12/2020. Patient with constipation and will do CT abdomen and pelvis. To hold diuretics. (2) COPD (chronic obstructive pulmonary disease): Qualifiers: COPD type: unspecified COPD Qualified Code(s): J44.9 - Chronic obstructive pulmonary disease, unspecified Code(s): J44.9 - Chronic obstructive pulmonary disease, unspecified Status: Chronic Assessment and Plan: 09/10 Patient with a history of moderate to severe apical predominant centrilobular emphysema on her CT scan from 09/09/2020 with a history of tobacco exposure. Patient states that she has quit 2 weeks ago. Patient denies any prior exacerbations and has not been wheezing during this hospitalization. I am not convinced this is a current COPD exacerbation. If patient remains symptomatic after her thoracentesis I will consider treating for an active COPD exacerbation. At this time I will continue albuterol 2.5 mg nebs Q 4 hours while awake and ipratropium 0.5 mg nebs q.4 hours while awake. I do not see need for inhaled corticosteroids or systemic corticosteroids at this time. 09/11 Continue albuterol and ipratroprium Q4 while awake. Goal saturation 90-94% with nasal cannula oxygen. Wean as tolerated. Will follow with you. Subjective Date/time seen: 09/11/20 09:20 Interval history: 09/10 new consult for Large right pleural effusion, COPD exacerbation 74-year-old woman with a history of cardiomyopathy with an EF of 35-40%, hypertension, PVD s/p stent to both legs on aspirin, COPD on no medications ( moderate to severe apical predominant centrilobular emphysema on CT scan from 09/09/2020) and a right-sided transudative pleural effusion status post thoracentesis on 05/13/2020 of 850 ml clear yellow fluid with negative cultures and gram stain with NOS, pH 7.40, glucose 88, LDH pleural 42/serum 520 with a ratio of 0.8, total protein pleural less than 3 /serum 7.0 with a ratio less than 0.42, white blood cell differential neutrophils 20%, lymphocytes 50%, macrophages 17% mesothelial cells 8% and negative cytology. Currently patient tells me she has 2 weeks of worsening cough, sinus congestion, wheezes and production of white phlegm. Patient states that over the last week she has developed some worsening shortness of breath. Patient denies fever, rigors or hemoptysis but does state that she has had a cold feeling. Patient is COVID vaccinated of couple of months ago and has no recent exposure to COVID. In ED WBC 5.9K, Cr 1.40, BNP > 57587, ABG on 2 L 7.30/59/68. CTA in ED demonstrated no PE, large R effusion, and moderate to severe apical predominant centrilobular emphysema. Treated with lasix 40 IV BID, albuterol a
[2020-09-11] MEDS: MAGNESIUM OXIDE 200 MG TABLET PO (09:22)
--- NOTE | 2020-09-11 10:55 | PM.PNCARD ---
Progress Note: A&P Assessment and Plan (1) CHF (congestive heart failure): Qualifiers: Heart failure type: combined systolic and diastolic Heart failure chronicity: acute on chronic Qualified Code(s): I50.43 - Acute on chronic combined systolic (congestive) and diastolic (congestive) heart failure Code(s): I50.9 - Heart failure, unspecified Status: Acute Assessment and Plan: Acute on chronic. Possibly ischemic. EF has further declined. Unfortunately her renal function and potassium have worsened. Will hold her furosemide and spironolactone today. Lexiscan myocardial perfusion study in the morning. If cost effective, consider transitioning to Entresto. (2) Cardiomyopathy: Code(s): I42.9 - Cardiomyopathy, unspecified Status: Acute Assessment and Plan: Possibly ischemic. (3) Pleural effusion: Code(s): J90 - Pleural effusion, not elsewhere classified Status: Acute Assessment and Plan: Status post thoracentesis (4) CKD (chronic kidney disease): Qualifiers: Chronic kidney disease stage: stage 3 (moderate) Chronic kidney disease stage 3 subtype: stage 3b (GFR 30-44) Qualified Code(s): N18.32 - Chronic kidney disease, stage 3b Code(s): N18.9 - Chronic kidney disease, unspecified Status: Chronic Assessment and Plan: Worsening (5) Hypertension: Qualifiers: Hypertension type: essential hypertension Qualified Code(s): I10 - Essential (primary) hypertension Code(s): I10 - Essential (primary) hypertension Status: Chronic Assessment and Plan: Above goal (6) PVD (peripheral vascular disease): Code(s): I73.9 - Peripheral vascular disease, unspecified Status: Chronic Assessment and Plan: Followed by Dr. Carrillo. Continue anti-platelet agent. Subjective Date/time seen: 09/11/20 10:55 Interval history: 74-year-old woman with a history of cardiomyopathy with an EF of 35-40%, hypertension, PVD s/p stent to both legs on aspirin, COPD on no medications ( moderate to severe apical predominant centrilobular emphysema on CT scan from 09/09/2020) and a right-sided transudative pleural effusion status post thoracentesis on 05/13/2020 of 850 ml clear yellow fluid with negative cultures and gram stain with NOS, pH 7.40, glucose 88, LDH pleural 42/serum 520 with a ratio of 0.8, total protein pleural less than 3 /serum 7.0 with a ratio less than 0.42, white blood cell differential neutrophils 20%, lymphocytes 50%, macrophages 17% mesothelial cells 8% and negative cytology. Date of service 09/11/2020: EF has declined further. She denies any chest pain or shortness of breath. Swelling is still present but better DATA: Echo 09/10/20 Summary 1. Complete two-dimensional, color flow and Doppler transthoracic echocardiogram is performed. 2. Left ventricular chamber dimension is moderately enlarged. 3. Left ventricular systolic function is severely reduced, estimated at 20-25%. 4. There is mildly increased left ventricular wall thickness. 5. The left ventricular diastolic function is grade I diastolic dysfunction. 6. E/e' 23.0 is elevated. 7. Right ventricular chamber dimension is normal. 8. Right ventricular systolic function is reduced. 9. Left atrial chamber dimension is severely enlarged. 10. Right atrial chamber dimension is mildly enlarged. 11. There is mild aortic valve sclerosis. 12. There is moderate mitral valve regurgitation. 13. There is moderate tricuspid valve regurgitation. 14. Mild pulmonary hypertension, estimated pulmonary arterial systolic pressure is 44 mmHg. 15. There is mild pulmonic regurgitation. CTA 09/09/20 COMPARISON: 09/09/2020 2 view chest FINDINGS: There is diagnostic contrast enhancement of pulmonary stenosis of pulmonary embolism. No thoracic aortic
--- NOTE | 2020-09-11 12:00 | PM.IMPN ---
Progress Note: A&P Assessment and Plan (1) Pleural effusion: Code(s): J90 - Pleural effusion, not elsewhere classified Status: Acute Assessment and Plan: Patient presents with worsening shortness of breath. Chest XR and CTA chest demonstrated a very large right pleural effusion in the middle and right lower lobe. Underwent a US-guided thoracentesis 09/10 which yielded 1L clear yellow fluid; pH 7.38. Initial reports with a clump of cells suggestive of possible neoplasm awaiting further testing. Again suspect CHF is the most likely cause while awaiting further pleural fluid studies. BNP > 35,000. She has been getting IV Lasix now held due to renal function. Spironolactone added, held due to hyperkalemia. Low-sodium diet. (2) COPD (chronic obstructive pulmonary disease): Qualifiers: COPD type: unspecified COPD Qualified Code(s): J44.9 - Chronic obstructive pulmonary disease, unspecified Code(s): J44.9 - Chronic obstructive pulmonary disease, unspecified Status: Chronic Assessment and Plan: Continue bronchodilator therapy with duo nebs. Appreciate pulmonology input. (3) CHF (congestive heart failure): Qualifiers: Heart failure type: combined systolic and diastolic Heart failure chronicity: acute on chronic Qualified Code(s): I50.43 - Acute on chronic combined systolic (congestive) and diastolic (congestive) heart failure Code(s): I50.9 - Heart failure, unspecified Status: Acute Assessment and Plan: Known EF 35-40% back in May 2020, repeat echocardiogram now demonstrates further decline EF 20-25% Appreciate cardiology input. Noted Dr Grey's plan for Lexiscan in , considering Entresto. (4) CKD (chronic kidney disease): Qualifiers: Chronic kidney disease stage: stage 3 (moderate) Chronic kidney disease stage 3 subtype: stage 3b (GFR 30-44) Qualified Code(s): N18.32 - Chronic kidney disease, stage 3b Code(s): N18.9 - Chronic kidney disease, unspecified Status: Chronic Assessment and Plan: Cr elevated from 1.4 to 2.4 today with IV Lasix. Lasix and spironolactone held. Monitor renal function and electrolytes daily with diuresis. Mild hyperkalemia I suspect related to renal failure - repeat BMP this afternoon to monitor. (5) Hypertension: Qualifiers: Hypertension type: essential hypertension Qualified Code(s): I10 - Essential (primary) hypertension Code(s): I10 - Essential (primary) hypertension Status: Chronic Assessment and Plan: Blood pressure appropriate this morning. Lisinopril held due to renal failure. Monitor BP and adjust treatment as needed. (6) PVD (peripheral vascular disease): Code(s): I73.9 - Peripheral vascular disease, unspecified Status: Chronic Assessment and Plan: With history of multiple vascular procedures last with lower extremity stent placement October 2019. Follows with Dr. Carrillo. (7) Anemia: Code(s): D64.9 - Anemia, unspecified Status: Resolved Assessment and Plan: History of severe anemia during her recent hospitalization with GI bleeding. No evidence of acute bleeding. Monitor CBC. Subjective Date/time seen: 09/11/20 1145 Interval history: Ms. Allen is a 74yo F admitted with large right pleural effusion s/p thoracentesis yesterday. She reports her shortness of breath is improved after thoracentesis. She denies chest pain or palpitations. She reports she was mildly nauseous earlier without vomiting. Review of Systems Review of Systems: All systems reviewed & are unremarkable except as noted in HPI and below Exam Narr
[2020-09-11 13:28] LABS: Anion Gap 7 mmol/L (8-16); Blood Urea Nitrogen 30 mg/dL (7-17); Calcium 8.5 mg/dL (8.4-10.2); Carbon Dioxide 28 mmol/L (22-30); Chloride 103 mmol/L (98-107); Estimated CRCL calculation 15 ml/min; Estimated Glomerular Filt Rate 23; Glucose 85 mg/dL (65-105); Potassium 5.4 mmol/L (3.4-5.0); Sodium 138 mmol/L (137-145)
--- NOTE | 2020-09-11 14:18 | PCPTNOTE ---
Second attempt at PT evaluation. Pt states agreeable to PM evaluation when attempted this AM, however, up in chair for a few hours with OT and just got back into bed upon PT arrival. Pt states she's too fatigued to get back out of bed at this time. Will follow. Marianela Ogden, DPT
[2020-09-11] MEDS: ONDANSETRON INJ 4 MG/2 ML VIAL IV PUSH (17:10)
[2020-09-11] MEDS: BISACODYL 10 MG SUPPOSITORY RECTAL (18:22)
[2020-09-12] VITALS (14 sets, daily range): BP systolic 121–136; BP diastolic 52–65; PULSE 72–82; RESP 14–20; TEMP 36.1–37; O2SAT 83–100
[2020-09-12 06:36] LABS: Basophils Percent Auto 0.3 % (0.2-1.2); Eosinophils Absolute Auto 0.1 K/mm3 (0-0.3); Eosinophils Percent Auto 1.6 % (0-4.4); Hematocrit 34.8 % (37.0-47.0); Hemoglobin 12.1 g/dL (12.0-15.0); Immature Granulocyte Absolute 0.03 K/mm3 (0.00-0.031); Immature Granulocyte Percent A 0.5 % (0-0.5); Immature Platelet Fraction Pct 2.4 % (0.9-11.2); Lymphocytes Absolute Auto 0.38 K/mm3 (0.9-3.2); Lymphocytes Percent Auto 5.9 % (18.3-44.2); Mean Corpuscular HGB Conc 34.8 g/dl (32-36); Mean Corpuscular Volume 80.6 fl (80-100); Mean Platelet Volume 9.3 fl (7.4-10.4); Monocytes Absolute Auto 0.6 K/mm3 (0.1-0.6); Monocytes Percent Auto 8.6 % (2.6-8.5); Neutrophils Absolute Auto 5.3 K/mm3 (1.3-6.7); Neutrophils Percent Auto 83.1 % (45.5-73.1); Platelet Count Result 129 k/mm3 (150-375); Red Blood Count 4.32 M/mm3 (4.2-5.4); Red Cell Distribution Width 15.5 % (11.5-14.5); White Blood Count 6.4 K/mm3 (4.5-10.0)
[2020-09-12 06:48] LABS: Anion Gap 8 mmol/L (8-16); Blood Urea Nitrogen 36 mg/dL (7-17); Calcium 8.3 mg/dL (8.4-10.2); Carbon Dioxide 26 mmol/L (22-30); Chloride 102 mmol/L (98-107); Estimated CRCL calculation 12 ml/min; Estimated Glomerular Filt Rate 17; Glucose 86 mg/dL (65-105); Magnesium 1.9 mg/dL (1.6-2.3); Potassium 5.6 mmol/L (3.4-5.0); Sodium 136 mmol/L (137-145)
[2020-09-12] MEDS: IPRATROPIUM BR 0.02% INH SOLN 0.5 MG/2.5 ML VIAL INHALATION ×3 (07:19→19:54)
[2020-09-12] MEDS: ALBUTEROL SULFATE NEB 2.5 MG/0.5 ML INH 5 MG INHALATION (07:19)
--- NOTE | 2020-09-12 08:00 | EST_ITS ---
Patient Info Name: Alina Allen Age: 74 years : 1945 Gender: Female Ht: 63 in Wt: 117 lbs BSA: 1.54 m2 Exam Date: 09/12/2020 10:06 AM Exam Location: [facility] Stress Patient Status: Inpatient Admit Date: 09/10/2020 Staff Ordering Physician: Emigdio Grey MD Attending Provider: Asya Saini PA-C Exercise Technologist: Kiah Landis RDCS Exercise Physician: Emigdio Grey MD Exam Type: CA stress abdon w NM Study Info A regadenoson stress test was performed. Summary 1. Please correlate with nuclear medicine images, reported separately. 2. No abnormal ST-T wave changes with lexiscan. Protocol: Lexiscan Stress ECG Details Stage: REST Duration (min): 26 min : 25 sec HR (bpm): 73 SBP (mmHg): 145 DBP (mmHg): 74 Stage: REST Duration (min): 27 min : 49 sec HR (bpm): 74 SBP (mmHg): 145 DBP (mmHg): 74 Stage: STAGE 1 Duration (min): 0 min : 59 sec HR (bpm): 75 SBP (mmHg): 151 DBP (mmHg): 75 Stage: RECOVERY Duration (min): 1 min : 0 sec HR (bpm): 78 SBP (mmHg): 146 DBP (mmHg): 73 Stage: RECOVERY Duration (min): 2 min : 0 sec HR (bpm): 77 SBP (mmHg): 146 DBP (mmHg): 73 Stage: RECOVERY Duration (min): 3 min : 0 sec HR (bpm): 77 SBP (mmHg): 147 DBP (mmHg): 72 Stage: RECOVERY Duration (min): 3 min : 7 sec HR (bpm): 77 SBP (mmHg): 147 DBP (mmHg): 72 Rest HR: 74 bpm Peak HR: 78 bpm Rest Sys BP: 145 mmHg Peak Sys BP: 151 mmHg Max Pred HR: 145 bpm % Max Pred HR: 54 % Target HR: 123 bpm Max RPP: 11,778 bpm*mmHg Target HR Summary: Hemodynamic response to exercise was normal BP Response: Normal blood pressure response Termination Reason: Completed protocol Cardiac Symptoms: None Total Time: 1 min : 0 sec Rest Newton BP: 74 mmHg Peak Newton BP: 75 mmHg Total Dose: 0.4 mg Resting ECG Normal sinus rhythm. Right axis deviation. Low voltage. Nonspecific T-wave abnormality. Stress ECG No abnormal ST/T wave changes with exercise. Arrhythmias None. Report Signatures
[2020-09-12] MEDS: SODIUM CHLORIDE 0.9% IV 500 ML 100 ML IV CONT (08:53)
[2020-09-12] MEDS: METOPROLOL SUCCINATE EXT REL 50 MG TABCR PO (08:57)
--- NOTE | 2020-09-12 08:59 | PM.PNCARD ---
Progress Note: A&P Assessment and Plan (1) CHF (congestive heart failure): Qualifiers: Heart failure type: combined systolic and diastolic Heart failure chronicity: acute on chronic Qualified Code(s): I50.43 - Acute on chronic combined systolic (congestive) and diastolic (congestive) heart failure Code(s): I50.9 - Heart failure, unspecified Status: Acute Assessment and Plan: Acute on chronic. Possibly ischemic. EF has further declined. Unfortunately her renal function and potassium have worsened. Will hold her furosemide and spironolactone today. Lexiscan myocardial perfusion study this morning (2) Cardiomyopathy: Code(s): I42.9 - Cardiomyopathy, unspecified Status: Acute Assessment and Plan: Possibly ischemic. (3) Pleural effusion: Code(s): J90 - Pleural effusion, not elsewhere classified Status: Acute Assessment and Plan: Status post thoracentesis (4) CKD (chronic kidney disease): Qualifiers: Chronic kidney disease stage: stage 3 (moderate) Chronic kidney disease stage 3 subtype: stage 3b (GFR 30-44) Qualified Code(s): N18.32 - Chronic kidney disease, stage 3b Code(s): N18.9 - Chronic kidney disease, unspecified Status: Chronic Assessment and Plan: Acute and worsening: Will consult nephrology, Dr. Motley. Diuretics, spironolactone are on hold. Lisinopril also will be held. (5) Hypertension: Qualifiers: Hypertension type: essential hypertension Qualified Code(s): I10 - Essential (primary) hypertension Code(s): I10 - Essential (primary) hypertension Status: Chronic Assessment and Plan: At goal (6) PVD (peripheral vascular disease): Code(s): I73.9 - Peripheral vascular disease, unspecified Status: Chronic Assessment and Plan: Followed by Dr. Carrillo. Continue anti-platelet agent. Subjective Date/time seen: 09/12/20 08:59 Interval history: 74-year-old woman with a history of cardiomyopathy with an EF of 35-40%, hypertension, PVD s/p stent to both legs on aspirin, COPD on no medications ( moderate to severe apical predominant centrilobular emphysema on CT scan from 09/09/2020) and a right-sided transudative pleural effusion status post thoracentesis on 05/13/2020 of 850 ml clear yellow fluid with negative cultures and gram stain with NOS, pH 7.40, glucose 88, LDH pleural 42/serum 520 with a ratio of 0.8, total protein pleural less than 3 /serum 7.0 with a ratio less than 0.42, white blood cell differential neutrophils 20%, lymphocytes 50%, macrophages 17% mesothelial cells 8% and negative cytology. Date of service 09/12/2020: EF has declined further. Resting in bed without complaint. No chest pain or shortness of breath. Renal function is worse though. DATA: Echo 09/10/20 Summary 1. Complete two-dimensional, color flow and Doppler transthoracic echocardiogram is performed. 2. Left ventricular chamber dimension is moderately enlarged. 3. Left ventricular systolic function is severely reduced, estimated at 20-25%. 4. There is mildly increased left ventricular wall thickness. 5. The left ventricular diastolic function is grade I diastolic dysfunction. 6. E/e' 23.0 is elevated. 7. Right ventricular chamber dimension is normal. 8. Right ventricular systolic function is reduced. 9. Left atrial chamber dimension is severely enlarged. 10. Right atrial chamber dimension is mildly enlarged. 11. There is mild aortic valve sclerosis. 12. There is moderate mitral valve regurgitation. 13. There is moderate tricuspid valve regurgitation. 14. Mild pulmonary hypertension, estimated pulmonary arterial systolic pressure is 44 mmHg. 15. There is mild pulmonic regurgitation. CTA 09/09/20 COMPARISON: 09/09/2020 2 view chest FINDINGS: There is diagnostic contrast enhanc
--- NOTE | 2020-09-12 09:27 | PC.NURSE ---
Patient to [place] for abdon scan per wheelchair.
--- NOTE | 2020-09-12 10:38 | PM.PNPUL ---
Progress Note: A&P Assessment and Plan (1) Pleural effusion: Code(s): J90 - Pleural effusion, not elsewhere classified Status: Acute Assessment and Plan: 09/10 Patient with a history of a transudative right pleural effusion by thoracentesis on 05/13/2020. At that time she had and fusion approximately 1/2 way up the right hemithorax with a thoracentesis of 850 mL of clear yellow fluid removed and her chest x-ray showed only a small right pleural effusion post thoracentesis. Patient presents again on 09/09 with a right pleural effusion approximately 1/2 way up the right hemithorax. currently patient is symptomatic and I agree with thoracentesis and repeat studies to evaluate trans date verses exudative pleural effusion. At this time the patient has no infectious complaints and I agree with no antibiotics. S/P 1000 ml clear yellow fluid with pH 7.38, Cell count with differential neutrophils 36%, lymphocytes 49% monocytes 10 macrophages 2% mesothelial cells 3%. G stain with white blood cells and no organisms seen. 09/11 I discussed the cytospin results with the pathologist who said that he noticed a cluster of cells that were suggestive of neoplasm. More definitive data will hopefully result from the cell block which should be back on 09/12/2020. S/P CT abdomen and pelvis with lung congestion and centrilobular emphysema,moderate right and small left effusion, no obvious cancer. 09/12 Awaiting chemistries to determine transudate vs exudate. Awaiting pathology results on cell block. If cancer diagnosed will need oncology consult. If negative or inconclusive for cancer would perform another thoricentisis and repeat cytology studies. CT abd with lung congestion and bilateral effusions, needs aggressive diuresis but this is challenging as now with REGINA. (2) COPD (chronic obstructive pulmonary disease): Qualifiers: COPD type: unspecified COPD Qualified Code(s): J44.9 - Chronic obstructive pulmonary disease, unspecified Code(s): J44.9 - Chronic obstructive pulmonary disease, unspecified Status: Chronic Assessment and Plan: 09/10 Patient with a history of moderate to severe apical predominant centrilobular emphysema on her CT scan from 09/09/2020 with a history of tobacco exposure. Patient states that she has quit 2 weeks ago. Patient denies any prior exacerbations and has not been wheezing during this hospitalization. I am not convinced this is a current COPD exacerbation. If patient remains symptomatic after her thoracentesis I will consider treating for an active COPD exacerbation. At this time I will continue albuterol 2.5 mg nebs Q 4 hours while awake and ipratropium 0.5 mg nebs q.4 hours while awake. I do not see need for inhaled corticosteroids or systemic corticosteroids at this time. /3 Continue albuterol and ipratroprium Q4 while awake. Goal saturation 90-94% with nasal cannula oxygen. Wean as tolerated. / Stable on albuterol and ipratroprium Q 4 while awake and will decrease to Q 6 while awake. When ready for discharge would discharge on these pulmonary medications: Beta agonist and muscarinic antagonist that insurance will cover (Anoro Ellipta 62.5/25 at 1 puff Q day, stiolto respimat 2.5/2.5 at 1 puff BID, combivent respimat at 2 puffs Q 4 HR or separate albuterol and atrovent inhalers at 2 puffs Q 4 HR) Rescue albuterol 2 puffs Q 4 PRN Daytime oxygen per formal home O2 assessment on day of discharge Nighttime oxygen per an Apnea link prior to discharge. Discussed with Asya Saini. Will follow with you on 09/15, call with questions. Subjective Date/time seen: 09/12/20 10:38 Interval history: 09/10 new consult for Large right pleural effusion, COPD exacerbation 74-year-old woman with a history of cardiomyopathy with an EF of 35-40%, hypertension, PVD s/p stent to both legs on aspirin, COPD on no medications ( moderate to severe apical predominant centrilobular emphysema on CT sc
--- NOTE | 2020-09-12 11:46 | PC.NURSE ---
Patient returned from [place].
[2020-09-12] MEDS: MAGNESIUM OXIDE 200 MG TABLET PO ×2 (11:57→20:46)
[2020-09-12] MEDS: ASPIRIN 81 MG CHEWABLE TABLET PO (11:57)
[2020-09-12] MEDS: ALBUTEROL SULFATE NEB 2.5 MG/0.5 ML INH INHALATION ×2 (13:13→19:54)
--- NOTE | 2020-09-12 14:23 | PM.IMPN ---
Progress Note: A&P Assessment and Plan (1) Pleural effusion: Code(s): J90 - Pleural effusion, not elsewhere classified Status: Acute Assessment and Plan: Patient presents with worsening shortness of breath. Chest XR and CTA chest demonstrated a very large right pleural effusion in the middle and right lower lobe. Underwent a US-guided thoracentesis 09/10 which yielded 1L clear yellow fluid; pH 7.38. Again suspect CHF is the most likely cause while awaiting further pleural fluid studies. No malignant cells noted on cytology. BNP > 35,000. Therapy is limited given her renal function. She had been getting IV lasix and spironolactone, now held with rising Cr. (2) CHF (congestive heart failure): Qualifiers: Heart failure type: combined systolic and diastolic Heart failure chronicity: acute on chronic Qualified Code(s): I50.43 - Acute on chronic combined systolic (congestive) and diastolic (congestive) heart failure Code(s): I50.9 - Heart failure, unspecified Status: Acute Assessment and Plan: Known EF 35-40% back in May 2020, repeat echocardiogram now demonstrates further decline EF 20-2.5% Appreciate cardiology input. [place] with evidence of ischemia. Considering Entresto, lisinopril is held anyway due to renal function. (3) Acute on chronic renal failure: Qualifiers: Acute renal failure type: unspecified Chronic kidney disease stage: unspecified stage Qualified Code(s): N17.9 - Acute kidney failure, unspecified; N18.9 - Chronic kidney disease, unspecified Code(s): N17.9 - Acute kidney failure, unspecified; N18.9 - Chronic kidney disease, unspecified Status: Acute Assessment and Plan: Cr trending up with diuresis, also contrast exposure 09/09. IV Lasix and spironolactone held. Monitor renal function and electrolytes daily with diuresis. Gentle hydration with 500 mL NS today and monitor. Suspect medical renal disease from above. Cardiology consulted nephrology. Mild hyperkalemia I suspect related to renal failure - repeat BMP this afternoon to monitor still waiting on this to be drawn. (4) COPD (chronic obstructive pulmonary disease): Qualifiers: COPD type: unspecified COPD Qualified Code(s): J44.9 - Chronic obstructive pulmonary disease, unspecified Code(s): J44.9 - Chronic obstructive pulmonary disease, unspecified Status: Chronic Assessment and Plan: With prominent centrilobular emphysema noted on imaging. Continue bronchodilator therapy with duo nebs. Appreciate pulmonology input. No respiratory distress today. (5) Hypertension: Qualifiers: Hypertension type: essential hypertension Qualified Code(s): I10 - Essential (primary) hypertension Code(s): I10 - Essential (primary) hypertension Status: Chronic Assessment and Plan: Blood pressures reviewed, stable today last 136/65. Lisinopril held due to renal failure. Monitor BP and adjust treatment as needed. (6) PVD (peripheral vascular disease): Code(s): I73.9 - Peripheral vascular disease, unspecified Status: Chronic Assessment and Plan: With history of multiple vascular procedures last with lower extremity stent placement October 2019. Follows with Dr. Carrillo. (7) Anemia: Qualifiers: Anemia type: unspecified type Qualified Code(s): D64.9 - Anemia, unspecified Code(s): D64.9 - Anemia, unspecified Status: Resolved Assessment and Plan: History of severe anemia during her recent hospitalization with GI bleeding. H&H stable now. No evidence of acute bleeding. Monitor CBC. Subjective D
--- NOTE | 2020-09-12 15:17 | PM.CNNEP ---
Assessment and Plan Assessment and plan (1) REGINA (acute kidney injury): Code(s): N17.9 - Acute kidney failure, unspecified Status: Acute Assessment and Plan: abrupt decline noted on this admission creatinine 1.4 on admission -- up to 2.4/2.5 yesterday, and now 3.2mg/dl this AM suspect multifactorial etiology: - contrast exposure (CT chest PE protocol on 09/09/20 with rise in creatinine 48 hours later) - recent drop in EF/worsening cardiomyopathy - concurrent LILLIAN-I and diuretic use follow trend of labs -- suspect it will worsen before it gets better monitor volume status as she is at risk for volume overload (2) Stage 3b chronic kidney disease: Code(s): N18.32 - Chronic kidney disease, stage 3b Status: Chronic Assessment and Plan: creatinine has fluctuated to extremes but seems run around 1.4 - 1.9mg/dl in last year or so presumably due to HTN, vascular disease, CHF/cardiomyopathy and age (3) Hyperkalemia: Code(s): E87.5 - Hyperkalemia Status: Acute Assessment and Plan: due to #1 and previous LILLIAN-I + spironolactone use treat medically for now follow trend (4) Pleural effusion: Code(s): J90 - Pleural effusion, not elsewhere classified Status: Acute Assessment and Plan: s/p thoracentesis Pulmonary following follow-up on pleural fluid testing (5) Cardiomyopathy: Code(s): I42.9 - Cardiomyopathy, unspecified Status: Chronic Assessment and Plan: worsened by recent Echo (down to 20 - 25%) likely contributing to #1 Cardiology following LILLIAN-I and diuretics on hold due #1 candidate for dobutamine?? -- will defer to Cardiology (6) Hypertension: Qualifiers: Hypertension type: essential hypertension Qualified Code(s): I10 - Essential (primary) hypertension Code(s): I10 - Essential (primary) hypertension Status: Chronic Assessment and Plan: reasonable control at this time follow hemodynamics Long and extensive discussion (> 20 minutes) with patient regarding her worsening/declining kidney function with my concern that she is at risk for possible CUTTING PRESSMAN/dialysis. She appeared to voice understanding but remained more frustrated about issues related to frequent blood draws since she has poor veins. Will continue to follow. History of Present Illness Reason for Consult Consult date: 09/12/20 Reason for consult: acute renal failure (on chronic kidney disease) and hyperkalemia Chief Complaint Chief complaint: Large right pleural effusion, COPD exacerbation History of Present Illness Narrative: The patient is a 74-year-old female with a past medical history as outlined below who presented to [facility] Emergency room due to increased shortness of breath. According to the patient, she has noticed an increase in her shortness of breath over the last week in association with weakness. Initially the shortness of breath was very mild but then continued to worsen to the point where she is short of breath with any type of activity. She denies any complaints of chest pain but does admit that she has noticed worsening bilateral lower extremity swelling that has fluctuated on off for the last 2-3 weeks. She gave no history with regard to dizziness lightheadedness or palpitations but does admit that any type of oral intake seems to maker nauseated. For all these reasons, she presented to the emergency room. Workup and evaluation emergency room demonstrated the patient to be hemodynamically stable with routine blood test demonstrated a BNP greater than 35,000, as well as a CBC demonstrating her chronic anemia and chemistry showing her known chronic kidney disease. She had no critical electrolyte abnormalities and her kidney function was at baseline at that time. Her chest x-ray showed a very large pleural effusion and a subsequent CT scan of th
--- NOTE | 2020-09-12 15:17 | P.CONNP_ITS ---
Assessment and Plan Assessment and plan (1) REGINA (acute kidney injury): Code(s): N17.9 - Acute kidney failure, unspecified Status: Acute Assessment and Plan: * abrupt decline noted on this admission * creatinine 1.4 on admission -- up to 2.4/2.5 yesterday, and now 3.2mg/dl this AM * suspect multifactorial etiology: - contrast exposure (CT chest PE protocol on 09/09/20 with rise in creatinine 48 hours later) - recent drop in EF/worsening cardiomyopathy - concurrent LILLIAN-I and diuretic use * follow trend of labs -- suspect it will worsen before it gets better * monitor volume status as she is at risk for volume overload (2) Stage 3b chronic kidney disease: Code(s): N18.32 - Chronic kidney disease, stage 3b Status: Chronic Assessment and Plan: * creatinine has fluctuated to extremes but seems run around 1.4 - 1.9mg/dl in last year or so * presumably due to HTN, vascular disease, CHF/cardiomyopathy and age (3) Hyperkalemia: Code(s): E87.5 - Hyperkalemia Status: Acute Assessment and Plan: * due to #1 and previous LILLIAN-I + spironolactone use * treat medically for now * follow trend (4) Pleural effusion: Code(s): J90 - Pleural effusion, not elsewhere classified Status: Acute Assessment and Plan: * s/p thoracentesis * Pulmonary following * follow-up on pleural fluid testing (5) Cardiomyopathy: Code(s): I42.9 - Cardiomyopathy, unspecified Status: Chronic Assessment and Plan: * worsened by recent Echo (down to 20 - 25%) * likely contributing to #1 * Cardiology following * LILLIAN-I and diuretics on hold due #1 * candidate for dobutamine?? -- will defer to Cardiology (6) Hypertension: Qualifiers: Hypertension type: essential hypertension Qualified Code(s): I10 - Essential (primary) hypertension Code(s): I10 - Essential (primary) hypertension Status: Chronic Assessment and Plan: * reasonable control at this time * follow hemodynamics Long and extensive discussion (> 20 minutes) with patient regarding her worsening/declining kidney function with my concern that she is at risk for possible LEVER TENDER/dialysis. She appeared to voice understanding but remained more frustrated about issues related to frequent blood draws since she has poor veins. Will continue to follow. History of Present Illness Reason for Consult Consult date: 09/12/20 Reason for consult: acute renal failure (on chronic kidney disease) and hyperkalemia Chief Complaint Chief complaint: Large right pleural effusion, COPD exacerbation History of Present Illness Narrative: The patient is a 74-year-old female with a past medical history as outlined below who presented to [facility] Emergency room due to i ncreased shortness of breath. According to the patient, she has noticed an increase in her shortness of breath over the last week in association with weakness. Initially the shortness of breath was very mild but then continued to worsen to the point where she is short of breath with any type of activity. She denies any complaints of chest pain but does admit that she has noticed worsening bilateral lower extremity swelling that has fluctuated on off for the last 2-3 weeks. She gave no history with regard to dizziness lightheadedness or palpitations but does admit that any type of oral intake seems to maker nauseated. For all these reasons, she presented to the emergency room. Workup and evaluation emergency room demonstra
[2020-09-12] MEDS: FERROUS SULFATE 324 MG TABLET PO (16:57)
--- NOTE | 2020-09-12 17:53 | PC.NURSE ---
BMP ordered for 1300. assistant professor of radiology unable to draw. Nursing staff not notified. Another label remover came up at 1740 to attempt to draw. After a total of 4 sticks they were unable to obtain labs. assistant professor of radiology stated there was nobody else here to draw until 2100 or 2200.
[2020-09-12] MEDS: MELATONIN 3 MG TABLET PO (20:46)
[2020-09-12 21:56] LABS: Anion Gap 7 mmol/L (8-16); Blood Urea Nitrogen 41 mg/dL (7-17); Calcium 7.9 mg/dL (8.4-10.2); Carbon Dioxide 26 mmol/L (22-30); Chloride 102 mmol/L (98-107); Estimated CRCL calculation 10 ml/min; Estimated Glomerular Filt Rate 14; Glucose 104 mg/dL (65-105); Potassium 5.2 mmol/L (3.4-5.0); Sodium 135 mmol/L (137-145)
[2020-09-13] VITALS (12 sets, daily range): BP systolic 90–157; BP diastolic 54–69; PULSE 70–88; RESP 18–24; TEMP 36.5–36.8; O2SAT 90–96
[2020-09-13 00:27] LABS: Albumin Pleural Fluid 0.6 g/dL
[2020-09-13 06:39] LABS: Hematocrit 30.4 % (37.0-47.0); Hemoglobin 10.6 g/dL (12.0-15.0)
[2020-09-13 06:50] LABS: Anion Gap 5 mmol/L (8-16); Blood Urea Nitrogen 45 mg/dL (7-17); Calcium 7.8 mg/dL (8.4-10.2); Carbon Dioxide 29 mmol/L (22-30); Chloride 101 mmol/L (98-107); Estimated CRCL calculation 9 ml/min; Estimated Glomerular Filt Rate 13; Glucose 80 mg/dL (65-105); Magnesium 2.1 mg/dL (1.6-2.3); Potassium 5.6 mmol/L (3.4-5.0); Sodium 135 mmol/L (137-145)
[2020-09-13] MEDS: ALBUTEROL SULFATE NEB 2.5 MG/0.5 ML INH INHALATION ×3 (07:50→20:00)
[2020-09-13] MEDS: IPRATROPIUM BR 0.02% INH SOLN 0.5 MG/2.5 ML VIAL INHALATION ×3 (07:50→20:00)
--- NOTE | 2020-09-13 09:08 | PM.PNCARD ---
Progress Note: A&P Assessment and Plan (1) CHF (congestive heart failure): Qualifiers: Heart failure type: combined systolic and diastolic Heart failure chronicity: acute on chronic Qualified Code(s): I50.43 - Acute on chronic combined systolic (congestive) and diastolic (congestive) heart failure Code(s): I50.9 - Heart failure, unspecified Status: Acute Assessment and Plan: Acute on chronic. Possibly ischemic. EF has further declined. Unfortunately her renal function and potassium have worsened significantly. Cont to hold diuretics. (2) Cardiomyopathy: Code(s): I42.9 - Cardiomyopathy, unspecified Status: Acute Assessment and Plan: EF 20-25% by Echo, 55% by Oliva. Possibly ischemic as pt has reversible ischemia by Oliva. Reviewed with patient. Eventual cardiac catheterization but unable to do so presently because of her acute renal failure. In the meantime, treat for presumed CAD with aspirin, and metoprolol. Add statin, atorva 20 mg qd, check lipids. (3) Pleural effusion: Code(s): J90 - Pleural effusion, not elsewhere classified Status: Acute Assessment and Plan: Status post thoracentesis (4) CKD (chronic kidney disease): Qualifiers: Chronic kidney disease stage: stage 3 (moderate) Chronic kidney disease stage 3 subtype: stage 3b (GFR 30-44) Qualified Code(s): N18.32 - Chronic kidney disease, stage 3b Code(s): N18.9 - Chronic kidney disease, unspecified Status: Chronic Assessment and Plan: Acute and worsening. Diuretics, spironolactone and lisinopril are on hold. Odd to have such as sudden decline with not much diuresis. Dr. Mckeon evaluating. (5) Hypertension: Qualifiers: Hypertension type: essential hypertension Qualified Code(s): I10 - Essential (primary) hypertension Code(s): I10 - Essential (primary) hypertension Status: Chronic Assessment and Plan: At goal, with 1 low blood pressure noted today. (6) PVD (peripheral vascular disease): Code(s): I73.9 - Peripheral vascular disease, unspecified Status: Chronic Assessment and Plan: Followed by Dr. Carrillo. Continue anti-platelet agent. Subjective Date/time seen: 09/13/20 09:08 Interval history: 74-year-old woman with a history of cardiomyopathy with an EF of 35-40%, hypertension, PVD s/p stent to both legs on aspirin, COPD on no medications ( moderate to severe apical predominant centrilobular emphysema on CT scan from 09/09/2020) and a right-sided transudative pleural effusion status post thoracentesis on 05/13/2020 of 850 ml clear yellow fluid with negative cultures and gram stain with NOS, pH 7.40, glucose 88, LDH pleural 42/serum 520 with a ratio of 0.8, total protein pleural less than 3 /serum 7.0 with a ratio less than 0.42, white blood cell differential neutrophils 20%, lymphocytes 50%, macrophages 17% mesothelial cells 8% and negative cytology. 09/12/2020: EF has declined further. Resting in bed without complaint. No chest pain or shortness of breath. Renal function is worse though; diuretics held. Lexiscan ordered. Date of service 09/13/2020: Still on 2 L of oxygen intermittently. Blood pressure generally stable except for this morning went with 90/54. Hematocrit has decreased to 30. Renal function is worse, creatinine up to 4.1, despite having 1400 cc in yesterday, a 500 cc IV fluid bolus and diuretics held. Dr. Mckeon consulted yesterday as well. Abnormal Lexiscan as below showing reversible ischemia. Pt hasn't felt like getting out of bed, not SOB at rest, wants to know when she can go home. DATA: Lexiscan: IMPRESSION: 1. Moderate-sized perfusion defect consistent with ischemia involving primarily the right cerebral artery vascular distribution in the mid and basilar inferior and mid inferolateral segments. 2. Small mild nonreversible infarct
[2020-09-13] MEDS: FERROUS SULFATE 324 MG TABLET PO ×2 (09:46→17:21)
[2020-09-13] MEDS: METOPROLOL SUCCINATE EXT REL 50 MG TABCR PO (09:46)
[2020-09-13] MEDS: ASPIRIN 81 MG CHEWABLE TABLET PO (09:46)
[2020-09-13] MEDS: MAGNESIUM OXIDE 200 MG TABLET PO ×2 (09:46→20:18)
--- NOTE | 2020-09-13 10:21 | P.PNNP_ITS ---
Progress Note: A&P Assessment and Plan (1) REGINA (acute kidney injury): Code(s): N17.9 - Acute kidney failure, unspecified Status: Acute Assessment and Plan: * abrupt decline noted on this admission * creatinine continues to rise/deteriorate * suspect multifactorial etiology: - contrast exposure (CT chest PE protocol on 09/09/20 with rise in creatinine 48 hours later) - recent drop in EF/worsening cardiomyopathy - concurrent LILLIAN-I and diuretic use on admission * follow trend of labs -- suspect it will worsen before it gets better * monitor volume status as she is at risk for volume overload (2) Stage 3b chronic kidney disease: Code(s): N18.32 - Chronic kidney disease, stage 3b Status: Chronic Assessment and Plan: * creatinine has fluctuated to extremes but seems run around 1.4 - 1.9mg/dl in last year or so * presumably due to HTN, vascular disease, CHF/cardiomyopathy and age (3) Hyperkalemia: Code(s): E87.5 - Hyperkalemia Status: Acute Assessment and Plan: * due to #1 and previous LILLIAN-I + spironolactone use * treat medically for now * follow trend (4) Pleural effusion: Code(s): J90 - Pleural effusion, not elsewhere classified Status: Acute Assessment and Plan: * s/p thoracentesis * Pulmonary following * follow-up on pleural fluid testing (5) Cardiomyopathy: Code(s): I42.9 - Cardiomyopathy, unspecified Status: Chronic Assessment and Plan: * worsened by recent Echo (down to 20 - 25%) * likely contributing to #1 * Cardiology following * LILLIAN-I and diuretics on hold due #1 * candidate for dobutamine?? -- will defer to Cardiology (6) Hypertension: Qualifiers: Hypertension type: essential hypertension Qualified Code(s): I10 - Es sential (primary) hypertension Code(s): I10 - Essential (primary) hypertension Status: Chronic Assessment and Plan: * reasonable control at this time * follow hemodynamics Will continue to follow. Subjective Date/time seen: 09/13/20 10:21 No apparent distress on my visit with her; unfortunately, kidney function has continued to deteriorate although she is still making some urine; no complaints of worsening respiratory status/breathing (was on room air when seen); no other complaints voiced. Exam Narrative: Exam Narrative: General: Elderly AA female in NAD Heart: normal S1 and S2; no rub Lungs: bibasilar crackles on left base and decrease at right base Abdomen: soft, nontender, nondistended, positive bowel sounds Extremities: no cyanosis or clubbing; trace edema Skin: warm and dry Objective Data Vital Signs Vital Signs: Vital Signs Temp Pulse Resp BP Pulse Ox 09/13/20 09:46 70 09/13/20 08:05 73 18 09/13/20 08:00 70 18 96 09/13/20 07:53 72 18 96 09/13/20 06:00 36.5 C 88 18 90/54 L 96 09/12/20 22:00 37.0 C 76 18 128/52 L 100 09/12/20 20:13 82 18 09/12/20 20:00 94 09/12/20 19:55 77 18 83 L 09/12/20 14:00 36.2 C L 76 14 136/65 93 09/12/20 13:25 75 16 09/12/20 13:16 75 16 09/12/20 13:15 94 Intake/Output Intake/Output: Intake & Output 09/10/20 09/11/20 09/12/20 09/13/20 23:59 23:59
--- NOTE | 2020-09-13 10:21 | PM.PNNEP ---
Progress Note: A&P Assessment and Plan (1) REGINA (acute kidney injury): Code(s): N17.9 - Acute kidney failure, unspecified Status: Acute Assessment and Plan: abrupt decline noted on this admission creatinine continues to rise/deteriorate suspect multifactorial etiology: - contrast exposure (CT chest PE protocol on 09/09/20 with rise in creatinine 48 hours later) - recent drop in EF/worsening cardiomyopathy - concurrent LILLIAN-I and diuretic use on admission follow trend of labs -- suspect it will worsen before it gets better monitor volume status as she is at risk for volume overload (2) Stage 3b chronic kidney disease: Code(s): N18.32 - Chronic kidney disease, stage 3b Status: Chronic Assessment and Plan: creatinine has fluctuated to extremes but seems run around 1.4 - 1.9mg/dl in last year or so presumably due to HTN, vascular disease, CHF/cardiomyopathy and age (3) Hyperkalemia: Code(s): E87.5 - Hyperkalemia Status: Acute Assessment and Plan: due to #1 and previous LILLIAN-I + spironolactone use treat medically for now follow trend (4) Pleural effusion: Code(s): J90 - Pleural effusion, not elsewhere classified Status: Acute Assessment and Plan: s/p thoracentesis Pulmonary following follow-up on pleural fluid testing (5) Cardiomyopathy: Code(s): I42.9 - Cardiomyopathy, unspecified Status: Chronic Assessment and Plan: worsened by recent Echo (down to 20 - 25%) likely contributing to #1 Cardiology following LILLIAN-I and diuretics on hold due #1 candidate for dobutamine?? -- will defer to Cardiology (6) Hypertension: Qualifiers: Hypertension type: essential hypertension Qualified Code(s): I10 - Essential (primary) hypertension Code(s): I10 - Essential (primary) hypertension Status: Chronic Assessment and Plan: reasonable control at this time follow hemodynamics Will continue to follow. Subjective Date/time seen: 09/13/20 10:21 No apparent distress on my visit with her; unfortunately, kidney function has continued to deteriorate although she is still making some urine; no complaints of worsening respiratory status/breathing (was on room air when seen); no other complaints voiced. Exam Narrative: Exam Narrative: General: Elderly AA female in NAD Heart: normal S1 and S2; no rub Lungs: bibasilar crackles on left base and decrease at right base Abdomen: soft, nontender, nondistended, positive bowel sounds Extremities: no cyanosis or clubbing; trace edema Skin: warm and dry Objective Data Vital Signs Vital Signs: Vital Signs Temp Pulse Resp BP Pulse Ox 09/13/20 09:46 70 09/13/20 08:05 73 18 09/13/20 08:00 70 18 96 09/13/20 07:53 72 18 96 09/13/20 06:00 36.5 C 88 18 90/54 L 96 09/12/20 22:00 37.0 C 76 18 128/52 L 100 09/12/20 20:13 82 18 09/12/20 20:00 94 09/12/20 19:55 77 18 83 L 09/12/20 14:00 36.2 C L 76 14 136/65 93 09/12/20 13:25 75 16 09/12/20 13:16 75 16 09/12/20 13:15 94 Intake/Output Intake/Output: Intake & Output 09/10/20 09/11/20 09/12/20 09/13/20 23:59 23:59 23:59 23:59 Intake Total 3010 396 6145 990 Output Total 1600 400 400 Balance -373 425 9586 990 Meds/Results Medications: Active Medications Generic Name Dose Route Start Last Admin Trade Name Freq PRN Reason Stop Dose Admin Acetaminophen 650 mg 09/11/20 10:29 Acetaminophen 325 Mg Tablet PO Q4H PRN Pain Rated 5 or Less Hydrocodone Bitart/Acetaminophen 1 tab 09/11/20 10:28 Hydrocodone/Acetaminophen (*Crx) 5-325 Mg Tablet PO Q4H PRN Pain Rated 6 or Greater Albuterol 2.5 mg 09/12/20 14:00 09/13/20 07:50 Albuterol Sulfate Neb 2.5 Mg/0.5 Ml Inh INHALATION 2.5 mg TIDRT BRANDON Administration Aspirin 81 mg 09/10/20
--- NOTE | 2020-09-13 11:30 | PM.IMPN ---
Progress Note: A&P Assessment and Plan (1) Pleural effusion: Code(s): J90 - Pleural effusion, not elsewhere classified Status: Acute Assessment and Plan: Patient presents with worsening shortness of breath. Chest XR and CTA chest demonstrated a very large right pleural effusion in the middle and right lower lobe. Underwent a US-guided thoracentesis 09/10 which yielded 1L clear yellow fluid; pH 7.38. Again suspect CHF is the most likely cause while awaiting further pleural fluid studies. No malignant cells noted on cytology. BNP > 35,000. Therapy is limited given her renal function. She had been getting IV lasix and spironolactone, now held with worsening renal failure. (2) CHF (congestive heart failure): Qualifiers: Heart failure type: combined systolic and diastolic Heart failure chronicity: acute on chronic Qualified Code(s): I50.43 - Acute on chronic combined systolic (congestive) and diastolic (congestive) heart failure Code(s): I50.9 - Heart failure, unspecified Status: Acute Assessment and Plan: Known EF 35-40% back in May 2020, repeat echocardiogram now demonstrates further decline EF 20-2.5% Appreciate cardiology input. Lexiscan with evidence of ischemia. Considering Entresto, lisinopril is held anyway due to renal function. (3) Acute on chronic renal failure: Qualifiers: Acute renal failure type: unspecified Chronic kidney disease stage: unspecified stage Qualified Code(s): N17.9 - Acute kidney failure, unspecified; N18.9 - Chronic kidney disease, unspecified Code(s): N17.9 - Acute kidney failure, unspecified; N18.9 - Chronic kidney disease, unspecified Status: Acute Assessment and Plan: Cr trending up after initially treated with diuretics on arrival, also contrast exposure 09/09. IV Lasix and spironolactone held. Monitor renal function and electrolytes daily. Appreciate nephrology input. Hyperkalemia I suspect related to renal failure - monitor. (4) COPD (chronic obstructive pulmonary disease): Qualifiers: COPD type: unspecified COPD Qualified Code(s): J44.9 - Chronic obstructive pulmonary disease, unspecified Code(s): J44.9 - Chronic obstructive pulmonary disease, unspecified Status: Chronic Assessment and Plan: With prominent centrilobular emphysema noted on imaging. Continue bronchodilator therapy with duo nebs. Appreciate pulmonology input. No respiratory distress today. (5) Hypertension: Qualifiers: Hypertension type: essential hypertension Qualified Code(s): I10 - Essential (primary) hypertension Code(s): I10 - Essential (primary) hypertension Status: Chronic Assessment and Plan: Blood pressures reviewed, variable today; low this morning now 146/64. Lisinopril held due to renal failure. Monitor BP and adjust treatment as needed. (6) PVD (peripheral vascular disease): Code(s): I73.9 - Peripheral vascular disease, unspecified Status: Chronic Assessment and Plan: With history of multiple vascular procedures last with lower extremity stent placement October 2019. Follows with Dr. Carrillo. (7) Anemia: Qualifiers: Anemia type: unspecified type Qualified Code(s): D64.9 - Anemia, unspecified Code(s): D64.9 - Anemia, unspecified Status: Resolved Assessment and Plan: History of severe anemia during her recent hospitalization with GI bleeding. H&H trending down today. No evidence of acute bleeding. Monitor CBC. Subjective Date/time seen: 09/13/20 11:15 Interval history: Ms. Allen is a 74yo F admitted with large right pl
[2020-09-13] MEDS: BISACODYL 5 MG TABLET EC PO (12:58)
[2020-09-13] MEDS: polyethylene glycoL 3350 17 GM POWD.PACK PO ×2 (12:58→20:20)
--- NOTE | 2020-09-13 13:51 | PCOTNOTE ---
Attempted to see patient this pm, however patient declined stating, I was up all morning. I don't feel like it now.
[2020-09-13] MEDS: MELATONIN 3 MG TABLET PO (20:18)
--- NOTE | 2020-09-13 20:21 | PC.NURSE ---
gave pt her AM miralax due to the fact that todays got thrown out before she could drink it. She refused dulcolax a second time.
--- NOTE | 2020-09-13 22:06 | PC.NURSE ---
Patient satted 94% on RA when given 2100 meds. When [employer] went to do 2200 vitals patient was satting at 80-82% on RA and had just woken up. Threw pt on 2L to help her catch up and she was up to 94%. Once she was more awake and talking she blamed the machine for being broken and that she was breathing fine. I kept her on 1L and will continue to check in on her to ensure she is still above 90%.
[2020-09-14] VITALS (10 sets, daily range): BP systolic 154–176; BP diastolic 70–71; PULSE 73–100; RESP 18–22; TEMP 36.4–36.7; O2SAT 91–94
[2020-09-14 06:25] LABS: Hematocrit 32.1 % (37.0-47.0); Hemoglobin 11.5 g/dL (12.0-15.0)
[2020-09-14 06:36] LABS: Anion Gap 7 mmol/L (8-16); Blood Urea Nitrogen 51 mg/dL (7-17); Carbon Dioxide 25 mmol/L (22-30); Chloride 102 mmol/L (98-107); Cholesterol 149 mg/dL (0-200); Estimated CRCL calculation 8 ml/min; Estimated Glomerular Filt Rate 10; Glucose 88 mg/dL (65-105); Magnesium 2.3 mg/dL (1.6-2.3); Potassium 5.6 mmol/L (3.4-5.0); Sodium 134 mmol/L (137-145)
--- NOTE | 2020-09-14 08:31 | PCPTNOTE ---
Attempted therapy session, Pt was with OT. Will attempt again.
[2020-09-14] MEDS: FERROUS SULFATE 324 MG TABLET PO ×2 (09:51→17:12)
[2020-09-14] MEDS: METOPROLOL SUCCINATE EXT REL 50 MG TABCR PO (09:51)
[2020-09-14] MEDS: ASPIRIN 81 MG CHEWABLE TABLET PO (09:52)
[2020-09-14] MEDS: MAGNESIUM OXIDE 200 MG TABLET PO ×2 (09:52→21:01)
[2020-09-14] MEDS: ATORVASTATIN 20 MG TABLET PO (09:52)
--- NOTE | 2020-09-14 12:16 | PM.PNCARD ---
Progress Note: A&P Assessment and Plan (1) CHF (congestive heart failure): Qualifiers: Heart failure chronicity: acute on chronic Heart failure type: combined systolic and diastolic Qualified Code(s): I50.43 - Acute on chronic combined systolic (congestive) and diastolic (congestive) heart failure Code(s): I50.9 - Heart failure, unspecified Status: Acute Assessment and Plan: Acute on chronic CHF. EF has further declined. Unfortunately her renal function has worsened significantly. Cont to hold diuretics. Not needing any oxygen, only mildly volume overloaded at this point. Dobutamine if worsens? (2) Cardiomyopathy: Code(s): I42.9 - Cardiomyopathy, unspecified Status: Chronic Assessment and Plan: EF 20-25% by Echo (55% by Oliva). Possibly ischemic as pt has reversible ischemia by Oliva. Eventual cardiac catheterization but unable to do so presently because of her acute renal failure. In the meantime, treat for presumed CAD with aspirin, statin and metoprolol. Add low dose hydralazine plus nitrates for cardiomyopathy and CHF; blood pressure looks stable enough. (3) Pleural effusion: Code(s): J90 - Pleural effusion, not elsewhere classified Status: Acute Assessment and Plan: Status post thoracentesis, transudative, neg cytology. (4) CKD (chronic kidney disease): Qualifiers: Chronic kidney disease stage: stage 3 (moderate) Chronic kidney disease stage 3 subtype: stage 3b (GFR 30-44) Qualified Code(s): N18.32 - Chronic kidney disease, stage 3b Code(s): N18.9 - Chronic kidney disease, unspecified Status: Chronic Assessment and Plan: Acute renal failure, creat cont to rise. Diuretics, spironolactone and lisinopril are on hold. Dr. Mckeon suspect contrast load + diuretics + decreased cardiac output as etiologies. (5) Hypertension: Qualifiers: Hypertension type: essential hypertension Qualified Code(s): I10 - Essential (primary) hypertension Code(s): I10 - Essential (primary) hypertension Status: Chronic Assessment and Plan: Running high. (6) PVD (peripheral vascular disease): Code(s): I73.9 - Peripheral vascular disease, unspecified Status: Chronic Assessment and Plan: Followed by Dr. Carrillo. Continue anti-platelet agent. Subjective Date/time seen: 09/14/20 12:16 Interval history: 74-year-old woman with a history of cardiomyopathy with an EF of 35-40%, hypertension, PVD s/p stent to both legs on aspirin, COPD on no medications ( moderate to severe apical predominant centrilobular emphysema on CT scan from 09/09/2020) and a right-sided transudative pleural effusion status post thoracentesis on 05/13/2020 of 850 ml clear yellow fluid with negative cultures and gram stain. negative cytology. 09/12/2020: EF has declined further, 20-25% by Echo. Resting in bed without complaint. No chest pain or shortness of breath. Renal function is worse though; diuretics held. Lexiscan ordered. 09/13/2020: Still on 2 L of oxygen intermittently. Blood pressure generally stable except for this morning went with 90/54. Hematocrit has decreased to 30. Renal function is worse, creatinine up to 4.1, despite having 1400 cc in yesterday, a 500 cc IV fluid bolus and diuretics held. Dr. Mckeon consulted yesterday as well. Abnormal Lexiscan as below showing reversible inferolateral ischemia, EF 55%. Pt hasn't felt like getting out of bed, not SOB at rest, wants to know when she can go home. Date of service 09/14/2020: Just does not feel good today, no appetite. Tired, had trouble getting to sleep. No shortness of breath. Was up in a chair briefly. Review of Systems Constitutional: Constitutional: Reports fatigue and Reports weakness Eyes: Eyes: Reports no additional eye complaints ENT: Denies epistaxis Cardiovascul
--- NOTE | 2020-09-14 12:42 | PCPTNOTE ---
Patient refused treatment this session due to I'm just too tired. I didn't go to bed until 2:00AM and already worked with OT. I'm just too tired and need to rest. Will attempt therapy again.
--- NOTE | 2020-09-14 13:08 | PM.PNNEP ---
Progress Note: A&P Assessment and Plan (1) REGINA (acute kidney injury): Code(s): N17.9 - Acute kidney failure, unspecified Status: Acute Assessment and Plan: abrupt decline noted on this admission creatinine continues to rise/deteriorate suspect multifactorial etiology: - contrast exposure (CT chest PE protocol on 09/09/20 with rise in creatinine 48 hours later) - recent drop in EF/worsening cardiomyopathy - concurrent LILLIAN-I and diuretic use on admission follow trend of labs -- suspect it will worsen before it gets better monitor volume status as she is at risk for volume overload (2) Stage 3b chronic kidney disease: Code(s): N18.32 - Chronic kidney disease, stage 3b Status: Chronic Assessment and Plan: creatinine has fluctuated to extremes but seems run around 1.4 - 1.9mg/dl in last year or so presumably due to HTN, vascular disease, CHF/cardiomyopathy and age (3) Hyperkalemia: Code(s): E87.5 - Hyperkalemia Status: Acute Assessment and Plan: due to #1 and previous LILLIAN-I + spironolactone use treat medically for now follow trend (4) Pleural effusion: Code(s): J90 - Pleural effusion, not elsewhere classified Status: Acute Assessment and Plan: s/p thoracentesis Pulmonary following follow-up on pleural fluid testing (5) Cardiomyopathy: Code(s): I42.9 - Cardiomyopathy, unspecified Status: Chronic Assessment and Plan: worsened by recent Echo (down to 20 - 25%) likely contributing to #1 Cardiology following LILLIAN-I and diuretics on hold due #1 candidate for dobutamine?? -- will defer to Cardiology - this may help renal function by providing better blood flow to kidneys (6) Hypertension: Qualifiers: Hypertension type: essential hypertension Qualified Code(s): I10 - Essential (primary) hypertension Code(s): I10 - Essential (primary) hypertension Status: Chronic Assessment and Plan: reasonable control at this time follow hemodynamics Will continue to follow. Subjective Date/time seen: 09/14/20 13:08 States that she just does not feel very well today but unable to elaborate other that she notes that her appetite is poor (possible early uremic symptoms??); no other acute issues or complaints voiced; renal function continues to deteriorate as well. Exam Narrative: Exam Narrative: General: Elderly AA female in NAD Heart: normal S1 and S2; no rub Lungs: few crackles on left base and decrease at right base Abdomen: soft, nontender, nondistended, positive bowel sounds Extremities: no cyanosis or clubbing; trace edema Skin: warm and dry Objective Data Vital Signs Vital Signs: Vital Signs Temp Pulse Resp BP Pulse Ox 09/14/20 09:51 100 09/14/20 08:00 100 18 93 09/14/20 06:00 36.4 C 76 18 154/70 H 93 09/13/20 22:00 36.8 C 78 18 157/69 H 91 09/13/20 20:15 74 20 09/13/20 20:01 74 24 H 94 09/13/20 20:00 92 Intake/Output Intake/Output: Intake & Output 09/11/20 09/12/20 09/13/20 09/14/20 23:59 23:59 23:59 23:59 Intake Total 570 1430 1770 300 Output Total 400 400 20 Balance 170 1030 1750 300 Meds/Results Medications: Active Medications Generic Name Dose Route Start Last Admin Trade Name Freq PRN Reason Stop Dose Admin Acetaminophen 650 mg 09/11/20 10:29 Acetaminophen 325 Mg Tablet PO Q4H PRN Pain Rated 5 or Less Hydrocodone Bitart/Acetaminophen 1 tab 09/11/20 10:28 Hydrocodone/Acetaminophen (*Crx) 5-325 Mg Tablet PO Q4H PRN Pain Rated 6 or Greater Albuterol 2.5 mg 09/12/20 14:00 09/14/20 13:53 Albuterol Sulfate Neb 2.5 Mg/0.5 Ml Inh INHALATION 2.5 mg TIDRT BRANDON Administration Aspirin 81 mg 09/10/20 09:00 09/14/20 09:52 Aspirin 81 Mg Chewable Tablet PO 10/10/20 09:01 81 mg DAILY BRANDON Administration
--- NOTE | 2020-09-14 13:08 | P.PNNP_ITS ---
Progress Note: A&P Assessment and Plan (1) REGINA (acute kidney injury): Code(s): N17.9 - Acute kidney failure, unspecified Status: Acute Assessment and Plan: * abrupt decline noted on this admission * creatinine continues to rise/deteriorate * suspect multifactorial etiology: - contrast exposure (CT chest PE protocol on 09/09/20 with rise in creatinine 48 hours later) - recent drop in EF/worsening cardiomyopathy - concurrent LILLIAN-I and diuretic use on admission * follow trend of labs -- suspect it will worsen before it gets better * monitor volume status as she is at risk for volume overload (2) Stage 3b chronic kidney disease: Code(s): N18.32 - Chronic kidney disease, stage 3b Status: Chronic Assessment and Plan: * creatinine has fluctuated to extremes but seems run around 1.4 - 1.9mg/dl in last year or so * presumably due to HTN, vascular disease, CHF/cardiomyopathy and age (3) Hyperkalemia: Code(s): E87.5 - Hyperkalemia Status: Acute Assessment and Plan: * due to #1 and previous LILLIAN-I + spironolactone use * treat medically for now * follow trend (4) Pleural effusion: Code(s): J90 - Pleural effusion, not elsewhere classified Status: Acute Assessment and Plan: * s/p thoracentesis * Pulmonary following * follow-up on pleural fluid testing (5) Cardiomyopathy: Code(s): I42.9 - Cardiomyopathy, unspecified Status: Chronic Assessment and Plan: * worsened by recent Echo (down to 20 - 25%) * likely contributing to #1 * Cardiology following * LILLIAN-I and diuretics on hold due #1 * candidate for dobutamine?? -- will defer to Cardiology - this may help renal function by providing better blood flow to kidneys (6) Hypertension: Qualifiers: Hypertension type: essential hypertension Qualified Code(s): I10 - Essential (primary) hypertension Code(s): I10 - Essential (primary) hypertension Status: Chronic Assessment and Plan: * reasonable control at this time * follow hemodynamics Will continue to follow. Subjective Date/time seen: 09/14/20 13:08 States that she just does not feel very well today but unable to elaborate other that she notes that her appetite is poor (possible early uremic symptoms??); no other acute issues or complaints voiced; renal function continues to deteriorate as well. Exam Narrative: Exam Narrative: General: Elderly AA female in NAD Heart: normal S1 and S2; no rub Lungs: few crackles on left base and decrease at right base Abdomen: soft, nontender, nondistended, positive bowel sounds Extremities: no cyanosis or clubbing; trace edema Skin: warm and dry Objective Data Vital Signs Vital Signs: Vital Signs Temp Pulse Resp BP Pulse Ox 09/14/20 09:51 100 09/14/20 08:00 100 18 93 09/14/20 06:00 36.4 C 76 18 154/70 H 93 09/13/20 22:00 36.8 C 78 18 157/69 H 91 09/13/20 20:15 74 20 09/13/20 20:01 74 24 H 94 09/13/20 20:00 92 Intake/Output Intake/Output: Intake & Output 09/11/20 09/12/20 09/13/20 09/14/20 23:59 23:59 23:59 23:59 Intake Total 570 1430 1770 300 Output Total 400 400 20 Balance 170 1030 1750 300 Meds/Results
[2020-09-14] MEDS: ALBUTEROL SULFATE NEB 2.5 MG/0.5 ML INH INHALATION ×2 (13:53→19:36)
[2020-09-14] MEDS: IPRATROPIUM BR 0.02% INH SOLN 0.5 MG/2.5 ML VIAL INHALATION ×2 (13:53→19:36)
--- NOTE | 2020-09-14 14:09 | PCPTNOTE ---
Patient refused treatment this session due to being too tired today. Upon entering room, Pt stated Basil buckner, I'm just too tired today. I appreciate you coming back to check on me but I just can't this afternoon. Reassured Pt we are her to help improve in strength and endurance for returning home. Pt stated I know dudley, I just can't today. I will tomorrow. Will continue per POC.
--- NOTE | 2020-09-14 14:21 | PM.IMPN ---
Progress Note: A&P Assessment and Plan (1) Pleural effusion: Code(s): J90 - Pleural effusion, not elsewhere classified Status: Acute Assessment and Plan: Patient presents with worsening shortness of breath. Chest XR and CTA chest demonstrated a very large right pleural effusion in the middle and right lower lobe. Underwent a US-guided thoracentesis 09/10 which yielded 1L clear yellow fluid; pH 7.38. Again suspect CHF is the most likely cause while awaiting further pleural fluid studies. No malignant cells noted on cytology. BNP > 35,000. Therapy is limited given her worsening renal function. She initially received a few doses of IV lasix and spironolactone, now held with worsening renal failure. No respiratory distress or SOB. She is intermittently mildly hypoxic. (2) CHF (congestive heart failure): Qualifiers: Heart failure type: combined systolic and diastolic Heart failure chronicity: acute on chronic Qualified Code(s): I50.43 - Acute on chronic combined systolic (congestive) and diastolic (congestive) heart failure Code(s): I50.9 - Heart failure, unspecified Status: Acute Assessment and Plan: Known EF 35-40% back in May 2020, repeat echocardiogram now demonstrates further decline EF 20-25% (55% on Lexiscan). Appreciate cardiology input. Lexiscan with evidence of ischemia. Consideration of coronary disease, will benefit from cardiac cath eventually once renal function improves. Cardiology has initiated statin therapy, hydralazine, Imdur. (3) Acute on chronic renal failure: Qualifiers: Acute renal failure type: unspecified Chronic kidney disease stage: unspecified stage Qualified Code(s): N17.9 - Acute kidney failure, unspecified; N18.9 - Chronic kidney disease, unspecified Code(s): N17.9 - Acute kidney failure, unspecified; N18.9 - Chronic kidney disease, unspecified Status: Acute Assessment and Plan: Cr trending up after initially treated with diuretics on arrival, also contrast exposure 09/09, worsening EF. Diuretics held. Monitor renal function and electrolytes daily. Appreciate nephrology input. Hyperkalemia I suspect related to renal failure - continue to monitor. (4) COPD (chronic obstructive pulmonary disease): Qualifiers: COPD type: unspecified COPD Qualified Code(s): J44.9 - Chronic obstructive pulmonary disease, unspecified Code(s): J44.9 - Chronic obstructive pulmonary disease, unspecified Status: Chronic Assessment and Plan: With prominent centrilobular emphysema noted on imaging. Continue bronchodilator therapy with duo nebs. Appreciate pulmonology input. See Dr Magaña's progress note for plan of discharge medications. Plan for home oxygen evaluation day of discharge and Apnea Link to assess nocturnal O2 needs on the evening prior to discharge. (5) Hypertension: Qualifiers: Hypertension type: essential hypertension Qualified Code(s): I10 - Essential (primary) hypertension Code(s): I10 - Essential (primary) hypertension Status: Chronic Assessment and Plan: Blood pressures reviewed and are variable. Cardiology added hydralazine. Lisinopril and diuretics held. Monitor BP and adjust treatment as needed. (6) PVD (peripheral vascular disease): Code(s): I73.9 - Peripheral vascular disease, unspecified Status: Chronic Assessment and Plan: With history of multiple vascular procedures last with lower extremity stent placement October 2019. Follows with Dr. Carrillo. (7) Anemia: Qualifiers: Anemia type: unspecified type Qualified Code(s): D64.9 - Anemia, unspecified Code(s): D64.9 - Anemia
[2020-09-14] MEDS: hydrALAZINE 12.5 MG TABLET PO ×2 (14:25→21:01)
[2020-09-14] MEDS: MELATONIN 3 MG TABLET PO (21:01)
[2020-09-14] MEDS: HYDROcodone/acetaminophen (*CRX) 5-325 MG TABLET 1 TAB PO (21:05)
[2020-09-14 21:31] LABS: Glucose Pleural Fluid 161 mg/dL; LDH Pleural Fluid 29 U/L; Total Protein Pleural Fluid <3.0 g/dL
[2020-09-15] VITALS (14 sets, daily range): BP systolic 152–172; BP diastolic 62–71; PULSE 66–80; RESP 14–20; TEMP 36.2–36.6; O2SAT 91–98
[2020-09-15] MEDS: hydrALAZINE 12.5 MG TABLET PO ×3 (05:40→21:26)
[2020-09-15 05:58] LABS: Amylase, Pleural Fluid 23 U/L
[2020-09-15 06:24] LABS: Hematocrit 31.5 % (37.0-47.0); Hemoglobin 11.2 g/dL (12.0-15.0); Mean Corpuscular HGB Conc 35.6 g/dl (32-36); Mean Corpuscular Hemoglobin 28.1 pg (26-34); Mean Corpuscular Volume 78.9 fl (80-100); Mean Platelet Volume 9.3 fl (7.4-10.4); Platelet Count Result 137 k/mm3 (150-375); Red Blood Count 3.99 M/mm3 (4.2-5.4); Red Cell Distribution Width 15.3 % (11.5-14.5); White Blood Count 5.1 K/mm3 (4.5-10.0)
[2020-09-15 06:30] LABS: Anion Gap 6 mmol/L (8-16); Blood Urea Nitrogen 60 mg/dL (7-17); Carbon Dioxide 26 mmol/L (22-30); Chloride 101 mmol/L (98-107); Estimated CRCL calculation 8 ml/min; Estimated Glomerular Filt Rate 11; Glucose 74 mg/dL (65-105); Magnesium 2.4 mg/dL (1.6-2.3); Potassium 5.6 mmol/L (3.4-5.0); Sodium 133 mmol/L (137-145)
[2020-09-15] MEDS: IPRATROPIUM BR 0.02% INH SOLN 0.5 MG/2.5 ML VIAL INHALATION ×3 (07:40→20:28)
[2020-09-15] MEDS: ALBUTEROL SULFATE NEB 2.5 MG/0.5 ML INH INHALATION ×3 (07:40→20:28)
--- NOTE | 2020-09-15 08:10 | PM.PNPUL ---
Progress Note: A&P Assessment and Plan (1) Pleural effusion: Code(s): J90 - Pleural effusion, not elsewhere classified Status: Acute Assessment and Plan: 09/10 Patient with a history of a transudative right pleural effusion by thoracentesis on 05/13/2020. At that time she had and fusion approximately 1/2 way up the right hemithorax with a thoracentesis of 850 mL of clear yellow fluid removed and her chest x-ray showed only a small right pleural effusion post thoracentesis. Patient presents again on 09/09 with a right pleural effusion approximately 1/2 way up the right hemithorax. currently patient is symptomatic and I agree with thoracentesis and repeat studies to evaluate trans date verses exudative pleural effusion. At this time the patient has no infectious complaints and I agree with no antibiotics. S/P 1000 ml clear yellow fluid with pH 7.38, Cell count with differential neutrophils 36%, lymphocytes 49% monocytes 10 macrophages 2% mesothelial cells 3%. G stain with white blood cells and no organisms seen. 09/11 I discussed the cytospin results with the pathologist who said that he noticed a cluster of cells that were suggestive of neoplasm. More definitive data will hopefully result from the cell block which should be back on 09/12/2020. S/P CT abdomen and pelvis with lung congestion and centrilobular emphysema,moderate right and small left effusion, no obvious cancer. 09/12 Awaiting chemistries to determine transudate vs exudate. Awaiting pathology results on cell block. If cancer diagnosed will need oncology consult. If negative or inconclusive for cancer would perform another thoricentisis and repeat cytology studies. CT abd with lung congestion and bilateral effusions, needs aggressive diuresis but this is challenging as now with REGINA. 09/15 Breathing without difficulty, on 1 L NC with sats 98%, cell block with no evidence of malignancy. Pleural fluid Is transudative. The LDH is 29 with a serum of 535, ratio 0.05, total protein is less than 3.0 with a serum of 7.0, ratio less than 0.43. Cultures and sstains negative. For transudative pleural effusion needs diuresis, complicated by REGINA. If symptomatic or hypoxia worsens would perform repeat thoricentesis. (2) COPD (chronic obstructive pulmonary disease): Qualifiers: COPD type: unspecified COPD Qualified Code(s): J44.9 - Chronic obstructive pulmonary disease, unspecified Code(s): J44.9 - Chronic obstructive pulmonary disease, unspecified Status: Chronic Assessment and Plan: 09/10 Patient with a history of moderate to severe apical predominant centrilobular emphysema on her CT scan from 09/09/2020 with a history of tobacco exposure. Patient states that she has quit 2 weeks ago. Patient denies any prior exacerbations and has not been wheezing during this hospitalization. I am not convinced this is a current COPD exacerbation. If patient remains symptomatic after her thoracentesis I will consider treating for an active COPD exacerbation. At this time I will continue albuterol 2.5 mg nebs Q 4 hours while awake and ipratropium 0.5 mg nebs q.4 hours while awake. I do not see need for inhaled corticosteroids or systemic corticosteroids at this time. 09/11 Continue albuterol and ipratroprium Q4 while awake. Goal saturation 90-94% with nasal cannula oxygen. Wean as tolerated. 09/12 Stable on albuterol and ipratroprium Q 4 while awake and will decrease to Q 6 while awake. When ready for discharge would discharge on these pulmonary medications: Beta agonist and muscarinic antagonist that insurance will cover (Anoro Ellipta 62.5/25 at 1 puff Q day, stiolto respimat 2.5/2.5 at 1 puff BID, combivent respimat at 2 puffs Q 4 HR or separate albuterol and atrovent inhalers at 2 puffs Q 4 HR) Rescue albuterol 2 puffs Q 4 PRN Daytime oxygen per formal home O2 assessment on day of discharge Nighttime oxygen per an Apnea link prior to discharge. Will sign off
[2020-09-15] MEDS: ATORVASTATIN 20 MG TABLET PO (08:11)
[2020-09-15] MEDS: FERROUS SULFATE 324 MG TABLET PO ×2 (08:11→17:19)
[2020-09-15] MEDS: ASPIRIN 81 MG CHEWABLE TABLET PO (08:11)
[2020-09-15] MEDS: polyethylene glycoL 3350 17 GM POWD.PACK PO (08:12)
[2020-09-15] MEDS: ISOSORBIDE MONONITRATE 15 MG TAB.ER.24H PO (08:12)
[2020-09-15] MEDS: METOPROLOL SUCCINATE EXT REL 50 MG TABCR PO (08:12)
[2020-09-15] MEDS: MAGNESIUM OXIDE 200 MG TABLET PO ×2 (08:12→21:26)
--- NOTE | 2020-09-15 09:47 | PM.PNCARD ---
Progress Note: A&P Assessment and Plan (1) CHF (congestive heart failure): Qualifiers: Heart failure chronicity: acute on chronic Heart failure type: combined systolic and diastolic Qualified Code(s): I50.43 - Acute on chronic combined systolic (congestive) and diastolic (congestive) heart failure <AMBREEN Hickman - Last Filed: 09/15/20 15:56> Code(s): I50.9 - Heart failure, unspecified <AMBREEN Hickman - Last Filed: 09/15/20 15:56> Status: Acute <AMBREEN Hickman - Last Filed: 09/15/20 15:56> Assessment and Plan: Acute on chronic CHF. EF has further declined. Unfortunately her renal function has worsened significantly. Cont to hold diuretics. No oxygen requirement, moderate bilateral pedal edema. Will initiate low dose dobutamine <AMBREEN Hickman - Last Filed: 09/15/20 15:56> (2) Cardiomyopathy: Code(s): I42.9 - Cardiomyopathy, unspecified <AMBREEN Hickman - Last Filed: 09/15/20 15:56> Status: Chronic <AMBREEN Hickman - Last Filed: 09/15/20 15:56> Assessment and Plan: EF 20-25% by Echo (55% by Oliva). Possibly ischemic as pt has reversible ischemia by Oliva. Eventual cardiac catheterization but unable to do so presently because of her acute renal failure. In the meantime, treat for presumed CAD with aspirin, statin and metoprolol. Add low dose hydralazine plus nitrates for cardiomyopathy and CHF; blood pressure looks stable enough. <AMBREEN Hickman - Last Filed: 09/15/20 15:56> (3) Pleural effusion: Code(s): J90 - Pleural effusion, not elsewhere classified <AMBREEN Hickman - Last Filed: 09/15/20 15:56> Status: Acute <AMBREEN Hickman - Last Filed: 09/15/20 15:56> Assessment and Plan: Status post thoracentesis, transudative, neg cytology. <KEVIN HickmanC - Last Filed: 09/15/20 15:56> (4) CKD (chronic kidney disease): Qualifiers: Chronic kidney disease stage: stage 3 (moderate) Chronic kidney disease stage 3 subtype: stage 3b (GFR 30-44) Qualified Code(s): N18.32 - Chronic kidney disease, stage 3b <KEVIN HickmanC - Last Filed: 09/15/20 15:56> Code(s): N18.9 - Chronic kidney disease, unspecified <Aretha Araujo APN-C - Last Filed: 09/15/20 15:56> Status: Chronic <AMBREEN Hickman - Last Filed: 09/15/20 15:56> Assessment and Plan: Acute renal failure, creat cont to rise. Diuretics, spironolactone and lisinopril are on hold. Dr. Mckeon suspect contrast load + diuretics + decreased cardiac output as etiologies. <AMBREEN Hickman - Last Filed: 09/15/20 15:56> (5) Hypertension: Qualifiers: Hypertension type: essential hypertension Qualified Code(s): I10 - Essential (primary) hypertension <AMBREEN Hickman - Last Filed: 09/15/20 15:56> Code(s): I10 - Essential (primary) hypertension <KEVIN HickmanC - Last Filed: 09/15/20 15:56> Status: Chronic <AMBREEN Hickman - Last Filed: 09/15/20 15:56> Assessment and Plan: Running high. <Aretha Araujo APN-C - Last Filed: 09/15/20 15:56> (6) PVD (peripheral vascular disease): Code(s): I73.9 - Peripheral vascular disease, unspecified <Aretha Araujo APN-C - Last Filed: 09/15/20 15:56> Status: Chronic <AMBREEN Hickman - Last Filed: 09/15/20 15:56> Assessment and Plan: Followed by Dr. Carrillo. Continue anti-platelet agent. <Aretha Araujo APN-C - Last Filed: 09/15/20 15:56> Additional Plan Attending Addendum: Patient seen and examined personally at bedside. Agree with above documentation and plan of care as outlined. Patient feels tired, denies chest pain or new shortness of breath. Edema persists, leg sore due to tight swelling. New issues. Renal function appreciably improved. Discussed length initiation d
--- NOTE | 2020-09-15 13:12 | PCPTNOTE ---
Patient declined PT stating my body is just not up to it. I walked yesterday. PT will continue to follow per plan of care.
--- NOTE | 2020-09-15 13:18 | PM.IMPN ---
Progress Note: A&P Assessment and Plan (1) Pleural effusion: Code(s): J90 - Pleural effusion, not elsewhere classified Status: Acute Assessment and Plan: INTERVAL HISTORY Patient presents with worsening shortness of breath. Chest XR and CTA chest demonstrated a very large right pleural effusion in the middle and right lower lobe. Underwent a US-guided thoracentesis 09/10 which yielded 1L clear yellow fluid; pH 7.38. Again suspect CHF is the most likely cause while awaiting further pleural fluid studies. No malignant cells noted on cytology. BNP > 35,000. Therapy is limited given her worsening renal function. She initially received a few doses of IV lasix and spironolactone, now held with worsening renal failure. No respiratory distress or SOB. She is intermittently mildly hypoxic. (2) CHF (congestive heart failure): Qualifiers: Heart failure chronicity: acute on chronic Heart failure type: combined systolic and diastolic Qualified Code(s): I50.43 - Acute on chronic combined systolic (congestive) and diastolic (congestive) heart failure Code(s): I50.9 - Heart failure, unspecified Status: Acute Assessment and Plan: Known EF 35-40% back in May 2020, repeat echocardiogram now demonstrates further decline EF 20-25% (55% on Lexiscan). Appreciate cardiology input. Lexiscan with evidence of ischemia. Consideration of coronary disease, will benefit from cardiac cath eventually once renal function improves. Cardiology has initiated statin therapy, hydralazine, Imdur. (3) Acute on chronic renal failure: Qualifiers: Acute renal failure type: unspecified Chronic kidney disease stage: unspecified stage Qualified Code(s): N17.9 - Acute kidney failure, unspecified; N18.9 - Chronic kidney disease, unspecified Code(s): N17.9 - Acute kidney failure, unspecified; N18.9 - Chronic kidney disease, unspecified Status: Acute Assessment and Plan: Cr trending up after initially treated with diuretics on arrival, also contrast exposure 09/09, worsening EF. Diuretics held. Monitor renal function and electrolytes daily. Appreciate nephrology input. Hyperkalemia I suspect related to renal failure - continue to monitor. (4) COPD (chronic obstructive pulmonary disease): Qualifiers: COPD type: unspecified COPD Qualified Code(s): J44.9 - Chronic obstructive pulmonary disease, unspecified Code(s): J44.9 - Chronic obstructive pulmonary disease, unspecified Status: Chronic Assessment and Plan: With prominent centrilobular emphysema noted on imaging. Continue bronchodilator therapy with duo nebs. Appreciate pulmonology input. See Dr Magaña's progress note for plan of discharge medications. Plan for home oxygen evaluation day of discharge and Apnea Link to assess nocturnal O2 needs on the evening prior to discharge. (5) Hypertension: Qualifiers: Hypertension type: essential hypertension Qualified Code(s): I10 - Essential (primary) hypertension Code(s): I10 - Essential (primary) hypertension Status: Chronic Assessment and Plan: Blood pressures reviewed and are variable. Cardiology added hydralazine. Lisinopril and diuretics held. Monitor BP and adjust treatment as needed. (6) PVD (peripheral vascular disease): Code(s): I73.9 - Peripheral vascular disease, unspecified Status: Chronic Assessment and Plan: With history of multiple vascular procedures last with lower extremity stent placement October 2019. Follows with Dr. Carrillo. (7) Anemia: Qualifiers: Anemia type: unspecified type Qualified Code(s): D64.9 - Anemia, unspecified Code(
--- NOTE | 2020-09-15 16:43 | P.PNNP_ITS ---
Progress Note: A&P Assessment and Plan (1) REGINA (acute kidney injury): Code(s): N17.9 - Acute kidney failure, unspecified Status: Acute Assessment and Plan: * abrupt decline noted on this admission * creatinine continues to rise/deteriorate * suspect multifactorial etiology: - contrast exposure (CT chest PE protocol on 09/09/20 with rise in creatinine 48 hours later) - recent drop in EF/worsening cardiomyopathy - concurrent LILLIAN-I and diuretic use on admission * follow trend of labs -- suspect it will worsen before it gets better * monitor volume status as she is at risk for volume overload * with initiation of dobutamine gtt, this might help improve renal function (2) Stage 3b chronic kidney disease: Code(s): N18.32 - Chronic kidney disease, stage 3b Status: Chronic Assessment and Plan: * creatinine has fluctuated to extremes but seems run around 1.4 - 1.9mg/dl in last year or so * presumably due to HTN, vascular disease, CHF/cardiomyopathy and age (3) Hyperkalemia: Code(s): E87.5 - Hyperkalemia Status: Acute Assessment and Plan: * due to #1 and previous LILLIAN-I + spironolactone use * treat medically for now * follow trend (4) Pleural effusion: Code(s): J90 - Pleural effusion, not elsewhere classified Status: Acute Assessment and Plan: * s/p thoracentesis * Pulmonary following * pleural fluid testing indicative of transudative effusion (5) Cardiomyopathy: Code(s): I42.9 - Cardiomyopathy, unspecified Status: Chronic Assessment and Plan: * worsened by recent Echo (down to 20 - 25%) * likely contributing to #1 * Cardiology following * LILLIAN-I and diuretics on hold due #1 * to start dobutamine gtt (6) Hypertension: Qualifiers: Hypertension type: essential hypertension Qualified Code(s): I10 - Essential (primary) hypertension Code(s): I10 - Essential (primary) hypertension Status: Chronic Assessment and Plan: * reasonable control at this time * follow hemodynamics Will continue to follow. Subjective Date/time seen: 09/15/20 16:43 Given ongoing renal dysfunction with no improvement with conservative therapy, patient to be initiated on dobutamine gtt once appropriate bed availability; major complaint is that of fatigue; more frustrated that she has to stay in the hospital as would prefer to just go home. Exam Narrative: Exam Narrative: General: Elderly AA female in NAD Heart: normal S1 and S2; no rub Lungs: few crackles on left base and decrease at right base Abdomen: soft, nontender, nondistended, positive bowel sounds Extremities: no cyanosis or clubbing; trace edema Skin: warm and intaact Objective Data Vital Signs Vital Signs: Vital Signs Temp Pulse Resp BP Pulse Ox 09/15/20 14:50 76 20 09/15/20 14:38 80 20 09/15/20 13:16 36.5 C 74 14 168/62 H 98 09/15/20 08:12 78 09/15/20 07:50 78 20 09/15/20 07:41 66 20 92 09/15/20 07:30 91 09/15/20 05:36 36.2 C L 66 18 152/62 H 98 09/14/20 22:00 36.7 C 76 18 176/71 H 94 09/14/20 21:00 76 18 94 09/14/20 19:50 78 20 Intake/Output Intake/Output: Intake & Output 09/12/20 09/13/20 09/14/20 09/15/20
--- NOTE | 2020-09-15 16:43 | PM.PNNEP ---
Progress Note: A&P Assessment and Plan (1) REGINA (acute kidney injury): Code(s): N17.9 - Acute kidney failure, unspecified Status: Acute Assessment and Plan: abrupt decline noted on this admission creatinine continues to rise/deteriorate suspect multifactorial etiology: - contrast exposure (CT chest PE protocol on 09/09/20 with rise in creatinine 48 hours later) - recent drop in EF/worsening cardiomyopathy - concurrent LILLIAN-I and diuretic use on admission follow trend of labs -- suspect it will worsen before it gets better monitor volume status as she is at risk for volume overload with initiation of dobutamine gtt, this might help improve renal function (2) Stage 3b chronic kidney disease: Code(s): N18.32 - Chronic kidney disease, stage 3b Status: Chronic Assessment and Plan: creatinine has fluctuated to extremes but seems run around 1.4 - 1.9mg/dl in last year or so presumably due to HTN, vascular disease, CHF/cardiomyopathy and age (3) Hyperkalemia: Code(s): E87.5 - Hyperkalemia Status: Acute Assessment and Plan: due to #1 and previous LILLIAN-I + spironolactone use treat medically for now follow trend (4) Pleural effusion: Code(s): J90 - Pleural effusion, not elsewhere classified Status: Acute Assessment and Plan: s/p thoracentesis Pulmonary following pleural fluid testing indicative of transudative effusion (5) Cardiomyopathy: Code(s): I42.9 - Cardiomyopathy, unspecified Status: Chronic Assessment and Plan: worsened by recent Echo (down to 20 - 25%) likely contributing to #1 Cardiology following LILLIAN-I and diuretics on hold due #1 to start dobutamine gtt (6) Hypertension: Qualifiers: Hypertension type: essential hypertension Qualified Code(s): I10 - Essential (primary) hypertension Code(s): I10 - Essential (primary) hypertension Status: Chronic Assessment and Plan: reasonable control at this time follow hemodynamics Will continue to follow. Subjective Date/time seen: 09/15/20 16:43 Given ongoing renal dysfunction with no improvement with conservative therapy, patient to be initiated on dobutamine gtt once appropriate bed availability; major complaint is that of fatigue; more frustrated that she has to stay in the hospital as would prefer to just go home. Exam Narrative: Exam Narrative: General: Elderly AA female in NAD Heart: normal S1 and S2; no rub Lungs: few crackles on left base and decrease at right base Abdomen: soft, nontender, nondistended, positive bowel sounds Extremities: no cyanosis or clubbing; trace edema Skin: warm and intaact Objective Data Vital Signs Vital Signs: Vital Signs Temp Pulse Resp BP Pulse Ox 09/15/20 14:50 76 20 09/15/20 14:38 80 20 09/15/20 13:16 36.5 C 74 14 168/62 H 98 09/15/20 08:12 78 09/15/20 07:50 78 20 09/15/20 07:41 66 20 92 09/15/20 07:30 91 09/15/20 05:36 36.2 C L 66 18 152/62 H 98 09/14/20 22:00 36.7 C 76 18 176/71 H 94 09/14/20 21:00 76 18 94 09/14/20 19:50 78 20 Intake/Output Intake/Output: Intake & Output 09/12/20 09/13/20 09/14/20 09/15/20 23:59 23:59 23:59 23:59 Intake Total 1430 2503 335 6467 Output Total 400 20 50 75 Balance 1030 0317 080 8979 Meds/Results Medications: Active Medications Generic Name Dose Route Start Last Admin Trade Name Freq PRN Reason Stop Dose Admin Acetaminophen 650 mg 09/11/20 10:29 Acetaminophen 325 Mg Tablet PO Q4H PRN Pain Rated 5 or Less Hydrocodone Bitart/Acetaminophen 1 tab 09/11/20 10:28 09/14/20 21:05 Hydrocodone/Acetaminophen (*Crx) 5-325 Mg Tablet PO 1 tab Q4H PRN Administration Pain Rated 6 or Greater Albuterol 2.5 mg 09/12/20 14:00 09/15/20 14:38 Albuterol Sulfate Neb 2.5 Mg/0.5 Ml Inh INHALA
[2020-09-15] MEDS: MELATONIN 3 MG TABLET PO (21:26)
[2020-09-15] MEDS: DOBUTamine 250 MG/D5W 250 ML 250 MG/250 ML BAG 8.03 MG IV CONT (23:18)
[2020-09-15] MEDS: METOPROLOL SUCCINATE EXT REL 25 MG TABCR PO (23:28)
--- NOTE | 2020-09-15 23:29 | PC.NURSE ---
This patient, Alina Allen, was received from [[id number]] on 09/15/20 at 2255 for initiation of a dobutamine drip. Patient/family oriented to unit policies and routines
[2020-09-16] VITALS (27 sets, daily range): BP systolic 149–167; BP diastolic 56–73; PULSE 65–80; RESP 14–20; TEMP 35.5–36.7; O2SAT 90–98
[2020-09-16 05:33] LABS: Hemoglobin 10.6 g/dL (12.0-15.0); Mean Corpuscular HGB Conc 35.3 g/dl (32-36); Mean Corpuscular Hemoglobin 28.2 pg (26-34); Mean Corpuscular Volume 79.8 fl (80-100); Platelet Count Result 135 k/mm3 (150-375); Red Blood Count 3.76 M/mm3 (4.2-5.4); Red Cell Distribution Width 15.3 % (11.5-14.5); White Blood Count 5.1 K/mm3 (4.5-10.0)
[2020-09-16] MEDS: hydrALAZINE 12.5 MG TABLET PO ×3 (05:34→20:25)
[2020-09-16 05:45] LABS: Anion Gap 6 mmol/L (8-16); Blood Urea Nitrogen 62 mg/dL (7-17); Calcium 7.7 mg/dL (8.4-10.2); Carbon Dioxide 25 mmol/L (22-30); Chloride 102 mmol/L (98-107); Estimated CRCL calculation 8 ml/min; Estimated Glomerular Filt Rate 11; Glucose 72 mg/dL (65-105); Potassium 5.3 mmol/L (3.4-5.0); Sodium 133 mmol/L (137-145)
[2020-09-16] MEDS: ISOSORBIDE MONONITRATE 15 MG TAB.ER.24H PO (08:32)
[2020-09-16] MEDS: ATORVASTATIN 20 MG TABLET PO (08:32)
[2020-09-16] MEDS: MAGNESIUM OXIDE 200 MG TABLET PO ×2 (08:33→20:25)
[2020-09-16] MEDS: METOPROLOL SUCCINATE EXT REL 25 MG TABCR PO (08:33)
[2020-09-16] MEDS: FERROUS SULFATE 324 MG TABLET PO ×2 (08:33→17:12)
[2020-09-16] MEDS: ASPIRIN 81 MG CHEWABLE TABLET PO (08:33)
[2020-09-16] MEDS: EUCERIN CREAM 120 GM JAR 1 APPLIC TOPICAL (08:33)
[2020-09-16] MEDS: polyethylene glycoL 3350 17 GM POWD.PACK PO (08:34)
[2020-09-16] MEDS: ALBUTEROL SULFATE NEB 2.5 MG/0.5 ML INH INHALATION ×3 (10:29→22:34)
[2020-09-16] MEDS: IPRATROPIUM BR 0.02% INH SOLN 0.5 MG/2.5 ML VIAL INHALATION ×3 (10:29→22:35)
--- NOTE | 2020-09-16 10:29 | P.PNNP_ITS ---
Progress Note: A&P Assessment and Plan (1) REGINA (acute kidney injury): Code(s): N17.9 - Acute kidney failure, unspecified Status: Acute Assessment and Plan: * abrupt decline noted on this admission * creatinine about the same * suspect multifactorial etiology: - contrast exposure (CT chest PE protocol on 09/09/20 with rise in creatinine 48 hours later) - recent drop in EF/worsening cardiomyopathy - concurrent LILLIAN-I and diuretic use on admission * follow trend of labs and UOP * monitor volume status as she is at risk for volume overload * hopefully with initiation of dobutamine gtt, this might help improve renal function (just started last yesterday evening) (2) Stage 3b chronic kidney disease: Code(s): N18.32 - Chronic kidney disease, stage 3b Status: Chronic Assessment and Plan: * creatinine has fluctuated to extremes but seems run around 1.4 - 1.9mg/dl in last year or so * presumably due to HTN, vascular disease, CHF/cardiomyopathy and age (3) Hyperkalemia: Code(s): E87.5 - Hyperkalemia Status: Acute Assessment and Plan: * due to #1 and previous LILLIAN-I + spironolactone use * treat medically for now * follow trend (4) Pleural effusion: Code(s): J90 - Pleural effusion, not elsewhere classified Status: Acute Assessment and Plan: * s/p thoracentesis * Pulmonary following * pleural fluid testing indicative of transudative effusion (5) Cardiomyopathy: Code(s): I42.9 - Cardiomyopathy, unspecified Status: Chronic Assessment and Plan: * worsened by recent Echo (down to 20 - 25%) -- EF better on stress test? * likely contributing to #1 * Cardiology following * LILLIAN-I and diuretics on hold due #1 * on dobutamine gtt (6) Hypertension: Qualifiers: Hypertension type: essential hypertension Qualified Code(s): I10 - Essential (primary) hypertension Code(s): I10 - Essential (primary) hypertension Status: Chronic Assessment and Plan: * reasonable control at this time * follow hemodynamics Will continue to follow. Subjective Date/time seen: 09/16/20 10:29 Moved to IMU yesterday afternoon/evening for initiation of dobutamine gtt; feels about the same aand maybe slightly better in genreral; kidney function has not really improved all that much; no new issues or problems overnight or earlier this AM. Exam Narrative: Exam Narrative: General: Elderly AA female in NAD Heart: normal S1 and S2; no rub Lungs: few crackles on left base and decrease at right base Abdomen: soft, nontender, nondistended, positive bowel sounds Extremities: no cyanosis or clubbing; trace edema Skin: no rash or nodules Objective Data Vital Signs Vital Signs: Vital Signs Temp Pulse Resp BP Pulse Ox 09/16/20 08:36 70 09/16/20 08:33 69 09/16/20 08:00 36.6 C 72 14 153/56 H 96 09/16/20 06:00 72 09/16/20 04:00 36.7 C 80 20 167/59 H 97 09/16/20 02:00 73 09/16/20 00:00 76 97 09/15/20 23:28 75 09/15/20 23:18 36.6 C 75 18 172/71 H 97 09/15/20 23:17 172/71 H 09/15/20 22:00 36.6 C 78 20 172/71 H 94 09/15/20 20:40 78 18 09/15/20 20:30 76 20 96 09/15/20 14:50 76 20 09/15/20 14:38 80 20 09/15/20 13:16
--- NOTE | 2020-09-16 10:29 | PM.PNNEP ---
Progress Note: A&P Assessment and Plan (1) REGINA (acute kidney injury): Code(s): N17.9 - Acute kidney failure, unspecified Status: Acute Assessment and Plan: abrupt decline noted on this admission creatinine about the same suspect multifactorial etiology: - contrast exposure (CT chest PE protocol on 09/09/20 with rise in creatinine 48 hours later) - recent drop in EF/worsening cardiomyopathy - concurrent LILLIAN-I and diuretic use on admission follow trend of labs and UOP monitor volume status as she is at risk for volume overload hopefully with initiation of dobutamine gtt, this might help improve renal function (just started last yesterday evening) (2) Stage 3b chronic kidney disease: Code(s): N18.32 - Chronic kidney disease, stage 3b Status: Chronic Assessment and Plan: creatinine has fluctuated to extremes but seems run around 1.4 - 1.9mg/dl in last year or so presumably due to HTN, vascular disease, CHF/cardiomyopathy and age (3) Hyperkalemia: Code(s): E87.5 - Hyperkalemia Status: Acute Assessment and Plan: due to #1 and previous LILLIAN-I + spironolactone use treat medically for now follow trend (4) Pleural effusion: Code(s): J90 - Pleural effusion, not elsewhere classified Status: Acute Assessment and Plan: s/p thoracentesis Pulmonary following pleural fluid testing indicative of transudative effusion (5) Cardiomyopathy: Code(s): I42.9 - Cardiomyopathy, unspecified Status: Chronic Assessment and Plan: worsened by recent Echo (down to 20 - 25%) -- EF better on stress test? likely contributing to #1 Cardiology following LILLIAN-I and diuretics on hold due #1 on dobutamine gtt (6) Hypertension: Qualifiers: Hypertension type: essential hypertension Qualified Code(s): I10 - Essential (primary) hypertension Code(s): I10 - Essential (primary) hypertension Status: Chronic Assessment and Plan: reasonable control at this time follow hemodynamics Will continue to follow. Subjective Date/time seen: 09/16/20 10:29 Moved to IMU yesterday afternoon/evening for initiation of dobutamine gtt; feels about the same aand maybe slightly better in genreral; kidney function has not really improved all that much; no new issues or problems overnight or earlier this AM. Exam Narrative: Exam Narrative: General: Elderly AA female in NAD Heart: normal S1 and S2; no rub Lungs: few crackles on left base and decrease at right base Abdomen: soft, nontender, nondistended, positive bowel sounds Extremities: no cyanosis or clubbing; trace edema Skin: no rash or nodules Objective Data Vital Signs Vital Signs: Vital Signs Temp Pulse Resp BP Pulse Ox 09/16/20 08:36 70 09/16/20 08:33 69 09/16/20 08:00 36.6 C 72 14 153/56 H 96 09/16/20 06:00 72 09/16/20 04:00 36.7 C 80 20 167/59 H 97 09/16/20 02:00 73 09/16/20 00:00 76 97 09/15/20 23:28 75 09/15/20 23:18 36.6 C 75 18 172/71 H 97 09/15/20 23:17 172/71 H 09/15/20 22:00 36.6 C 78 20 172/71 H 94 09/15/20 20:40 78 18 09/15/20 20:30 76 20 96 09/15/20 14:50 76 20 09/15/20 14:38 80 20 09/15/20 13:16 36.5 C 74 14 168/62 H 98 Intake/Output Intake/Output: Intake & Output 09/13/20 09/14/20 09/15/20 09/16/20 23:59 23:59 23:59 23:59 Intake Total 5145 760 2129 340 Output Total 20 50 75 50 Balance 0757 101 7407 290 Meds/Results Medications: Active Medications Generic Name Dose Route Start Last Admin Trade Name Freq PRN Reason Stop Dose Admin Acetaminophen 650 mg 09/11/20 10:29 Acetaminophen 325 Mg Tablet PO Q4H PRN Pain Rated 5 or Less Hydrocodone Bitart/Acetaminophen 1 tab 09/11/20 10:28 09/14/20 21:05 Hydrocodone/Acetaminophen (*Crx) 5-325 Mg Tablet PO 1 tab Q4H P
--- NOTE | 2020-09-16 11:12 | PCPTNOTE ---
Patient refused treatment this session due to fatigue. Attempted to see patient at 11:08 for PT, however patient declined due to fatigue. Patient states that she is too tired and just can't do it today. Patient reports that she did therapy yesterday and wants to rest today. Despite offering supine exercises and educating patient on importance of therapy, patient continues to decline participation. Will attempt to see patient again per plan of care. María Chambers, MEDICAL SPECIALIST
--- NOTE | 2020-09-16 14:20 | P.PNIM_ITS ---
Progress Note: A&P Assessment and Plan (1) Pleural effusion: Code(s): J90 - Pleural effusion, not elsewhere classified Status: Acute Assessment and Plan: INTERVAL HISTORY * Patient presents with worsening shortness of breath. Chest XR and CTA chest demonstrated a very large right pleural effusion in the middle and right lower lobe. * Underwent a US-guided thoracentesis 09/10 which yielded 1L clear yellow fluid; pH 7.38. * Again suspect CHF is the most likely cause while awaiting further pleural fluid studies. No malignant cells noted on cytology. BNP > 35,000. * Therapy is limited given her worsening renal function. She initially received a few doses of IV lasix and spironolactone, now held with worsening renal failure. * No respiratory distress or SOB. She is intermittently mildly hypoxic. * Pt is transferred to IMU now on dobutamine (2) CHF (congestive heart failure): Qualifiers: Heart failure type: combined systolic and diastolic Heart failure chronicity: acute on chronic Qualified Code(s): I50.43 - Acute on chronic combined systolic (congestive) and diastolic (congestive) heart failure Code(s): I50.9 - Heart failure, unspecified Status: Acute Assessment and Plan: * Known EF 35-40% back in May 2020, repeat echocardiogram now demonstrates further decline EF 20-25% (55% on Lexiscan). * Appreciate cardiology input. Lexiscan with evidence of ischemia. Consideration of coronary disease, will benefit from cardiac cath eventually once renal function improves. Cardiology has initiated statin therapy, hydralazine, Imdur. * Pt is transferred to U now on dobutamine (3) Acute on chronic renal failure: Qualifiers: Acute renal failure type: unspecified Chronic kidney disease stage: unspecified stage Qualified Code(s): N17.9 - Acute kidney failure, unspecified; N18.9 - Chronic kidney disease, unspecified Code(s): N17.9 - Acute kidney failure, unspecified; N18.9 - Chronic kidney disease, unspecified Status: Acute Assessment and Plan: * Cr trending up after initially treated with diuretics on arrival, also contrast exposure 09/09, worsening EF. * Diuretics held. Monitor renal function and electrolytes daily. Appreciate nephrology input. * Hyperkalemia I suspect related to renal failure - continue to monitor. * Pt is transferred to IMU now on dobutamine (4) COPD (chronic obstructive pulmonary disease): Qualifiers: COPD type: unspecified COPD Qualified Code(s): J44.9 - Chronic obstructive pulmonary disease, unspecified Code(s): J44.9 - Chronic obstructive pulmonary disease, unspecified Status: Chronic Assessment and Plan: * With prominent centrilobular emphysema noted on imaging. Continue bronchodilator therapy with duo nebs. * Appreciate pulmonology input. See Dr Magaña's progress note for plan of discharge medications. Plan for home oxygen evaluation day of discharge and Apnea Link to assess nocturnal O2 needs on the evening prior to discharge. (5) Hypertension: Qualifiers: Hypertension type: essential hypertension Qualified Code(s): I10 - Essential (primary) hypertension Code(s): I10 - Essential (primary) hypertension Status: Chronic Assessment and Plan: * Blood pressures reviewed and are variable. Cardiology added hydralazine. Lisinopril and diuretics held. * Monitor BP and adjust treatment as needed.
--- NOTE | 2020-09-16 14:47 | PCOTNOTE ---
Attempted OT session with patient, but patient refused, stating she wasn't feeling up to it today.
[2020-09-16] MEDS: SODIUM POLYSTYRENE SULFONONATE 15 GM/60 ML BTL PO (15:38)
--- NOTE | 2020-09-16 16:40 | PM.PNCARD ---
Progress Note: A&P Assessment and Plan (1) CHF (congestive heart failure): Qualifiers: Heart failure chronicity: acute on chronic Heart failure type: combined systolic and diastolic Qualified Code(s): I50.43 - Acute on chronic combined systolic (congestive) and diastolic (congestive) heart failure <AMBREEN Hickman - Last Filed: 09/16/20 16:46> Code(s): I50.9 - Heart failure, unspecified <AMBREEN Hickman - Last Filed: 09/16/20 16:46> Status: Acute <AMBREEN Hickman - Last Filed: 09/16/20 16:46> Assessment and Plan: Acute on chronic CHF. EF has further declined. Unfortunately her renal function has worsened significantly. Cont to hold diuretics. No oxygen requirement, mild bilateral pedal edema. Continue dobutamine 2.5 mcg/kg/min <AMBREEN Hickman - Last Filed: 09/16/20 16:46> (2) Cardiomyopathy: Code(s): I42.9 - Cardiomyopathy, unspecified <AMBREEN Hickman - Last Filed: 09/16/20 16:46> Status: Chronic <AMBREEN Hickman - Last Filed: 09/16/20 16:46> Assessment and Plan: EF 20-25% by Echo (55% by Oliva). Possibly ischemic as pt has reversible ischemia by Oliva. Eventual cardiac catheterization but unable to do so presently because of her acute renal failure. In the meantime, treat for presumed CAD with aspirin, statin and metoprolol. Add low dose hydralazine plus nitrates for cardiomyopathy and CHF; blood pressure looks stable enough. <AMBREEN Hickman - Last Filed: 09/16/20 16:46> (3) Pleural effusion: Code(s): J90 - Pleural effusion, not elsewhere classified <AMBREEN Hickman - Last Filed: 09/16/20 16:46> Status: Acute <AMBREEN Hickman - Last Filed: 09/16/20 16:46> Assessment and Plan: Status post thoracentesis, transudative, neg cytology. <KEVIN HickmanC - Last Filed: 09/16/20 16:46> (4) CKD (chronic kidney disease): Qualifiers: Chronic kidney disease stage: stage 3 (moderate) Chronic kidney disease stage 3 subtype: stage 3b (GFR 30-44) Qualified Code(s): N18.32 - Chronic kidney disease, stage 3b <AMBREEN Hickman - Last Filed: 09/16/20 16:46> Code(s): N18.9 - Chronic kidney disease, unspecified <Aretha Araujo APN-C - Last Filed: 09/16/20 16:46> Status: Chronic <AMBREEN Hickman - Last Filed: 09/16/20 16:46> Assessment and Plan: Acute renal failure, creat cont to rise. Diuretics, spironolactone and lisinopril are on hold. Dr. Mckeon suspect contrast load + diuretics + decreased cardiac output as etiologies. <KEVIN HickmanC - Last Filed: 09/16/20 16:46> (5) Hypertension: Qualifiers: Hypertension type: essential hypertension Qualified Code(s): I10 - Essential (primary) hypertension <AMBREEN Hickman - Last Filed: 09/16/20 16:46> Code(s): I10 - Essential (primary) hypertension <KEVIN HickmanC - Last Filed: 09/16/20 16:46> Status: Chronic <AMBREEN Hickman - Last Filed: 09/16/20 16:46> Assessment and Plan: Running high. <Aretha Araujo APN-C - Last Filed: 09/16/20 16:46> (6) PVD (peripheral vascular disease): Code(s): I73.9 - Peripheral vascular disease, unspecified <KEVIN HickmanC - Last Filed: 09/16/20 16:46> Status: Chronic <AMBREEN Hickman - Last Filed: 09/16/20 16:46> Assessment and Plan: Followed by Dr. Carrillo. Continue anti-platelet agent. <Aretha Araujo, TWYLA-C - Last Filed: 09/16/20 16:46> Additional Plan Attending addendum: I have personally seen and examined patient at bedside. I agree with the above plan of care and documentation as outlined. Patient states she feels somewhat better. Legs are less tight she is no longer in pain. She denies shortness of breath or chest pain. No significant issues overnight, telemetry unremar
[2020-09-16] MEDS: MELATONIN 3 MG TABLET PO (20:25)
[2020-09-17] VITALS (20 sets, daily range): BP systolic 160–185; BP diastolic 54–77; PULSE 67–89; RESP 16–24; TEMP 36.1–36.7; O2SAT 92–99
[2020-09-17] MEDS: DOBUTamine 250 MG/D5W 250 ML 250 MG/250 ML BAG 8.03 MG IV CONT (04:53)
[2020-09-17] MEDS: hydrALAZINE 12.5 MG TABLET PO ×3 (04:54→21:40)
[2020-09-17 05:46] LABS: Anion Gap 5 mmol/L (8-16); Blood Urea Nitrogen 60 mg/dL (7-17); Calcium 8.3 mg/dL (8.4-10.2); Carbon Dioxide 26 mmol/L (22-30); Chloride 102 mmol/L (98-107); Estimated CRCL calculation 8 ml/min; Estimated Glomerular Filt Rate 12; Glucose 71 mg/dL (65-105); Potassium 5.2 mmol/L (3.4-5.0); Sodium 133 mmol/L (137-145)
[2020-09-17] MEDS: ATORVASTATIN 20 MG TABLET PO (08:29)
[2020-09-17] MEDS: MAGNESIUM OXIDE 200 MG TABLET PO ×2 (08:29→21:40)
[2020-09-17] MEDS: METOPROLOL SUCCINATE EXT REL 25 MG TABCR PO (08:29)
[2020-09-17] MEDS: ASPIRIN 81 MG CHEWABLE TABLET PO (08:29)
[2020-09-17] MEDS: polyethylene glycoL 3350 17 GM POWD.PACK PO (08:29)
[2020-09-17] MEDS: FERROUS SULFATE 324 MG TABLET PO ×2 (08:29→17:16)
[2020-09-17] MEDS: ISOSORBIDE MONONITRATE 15 MG TAB.ER.24H PO (08:29)
[2020-09-17] MEDS: IPRATROPIUM BR 0.02% INH SOLN 0.5 MG/2.5 ML VIAL INHALATION ×3 (08:48→19:38)
[2020-09-17] MEDS: ALBUTEROL SULFATE NEB 2.5 MG/0.5 ML INH INHALATION ×3 (08:48→19:38)
--- NOTE | 2020-09-17 10:59 | PCNWS ---
Weekly nutritional screen. Patient is tolerating current diet with adequate intake. No weight loss reported. No nutritional needs at this time.
[2020-09-17] MEDS: ACETAMINOPHEN 325 MG TABLET 650 MG PO (11:10)
--- NOTE | 2020-09-17 12:54 | PCNSR ---
On 09/17/20, the student, Lana Marrero, provided care and completed [facility] documentation on this patient. I have reviewed the student's documentation and agree with the findings.
--- NOTE | 2020-09-17 14:45 | PM.PNCARD ---
Progress Note: A&P Assessment and Plan (1) CHF (congestive heart failure): Qualifiers: Heart failure chronicity: acute on chronic Heart failure type: combined systolic and diastolic Qualified Code(s): I50.43 - Acute on chronic combined systolic (congestive) and diastolic (congestive) heart failure <AMBREEN Hickman - Last Filed: 09/17/20 14:55> Code(s): I50.9 - Heart failure, unspecified <AMBREEN Hickman - Last Filed: 09/17/20 14:55> Status: Acute <AMBREEN Hickman - Last Filed: 09/17/20 14:55> Assessment and Plan: Acute on chronic CHF. EF has further declined. Unfortunately her renal function has worsened significantly. Cont to hold diuretics. No oxygen requirement, mild bilateral pedal edema. Continue dobutamine 2.5 mcg/kg/min <AMBREEN Hickman - Last Filed: 09/17/20 14:55> (2) Cardiomyopathy: Code(s): I42.9 - Cardiomyopathy, unspecified <AMBREEN Hickman - Last Filed: 09/17/20 14:55> Status: Chronic <AMBREEN Hickman - Last Filed: 09/17/20 14:55> Assessment and Plan: EF 20-25% by Echo (55% by Oliva). Possibly ischemic as pt has reversible ischemia by Oliva. Eventual cardiac catheterization but unable to do so presently because of her acute renal failure. In the meantime, treat for presumed CAD with aspirin, statin and metoprolol. Add low dose hydralazine plus nitrates for cardiomyopathy and CHF; blood pressure looks stable enough. <AMBREEN Hickman - Last Filed: 09/17/20 14:55> (3) Pleural effusion: Code(s): J90 - Pleural effusion, not elsewhere classified <AMBREEN Hickman - Last Filed: 09/17/20 14:55> Status: Acute <AMBREEN Hickman - Last Filed: 09/17/20 14:55> Assessment and Plan: Status post thoracentesis, transudative, neg cytology. <AMBREEN Hickman - Last Filed: 09/17/20 14:55> (4) CKD (chronic kidney disease): Qualifiers: Chronic kidney disease stage: stage 3 (moderate) Chronic kidney disease stage 3 subtype: stage 3b (GFR 30-44) Qualified Code(s): N18.32 - Chronic kidney disease, stage 3b <AMBREEN Hickman - Last Filed: 09/17/20 14:55> Code(s): N18.9 - Chronic kidney disease, unspecified <KEVIN HickmanC - Last Filed: 09/17/20 14:55> Status: Chronic <AMBREEN Hickman - Last Filed: 09/17/20 14:55> Assessment and Plan: Acute renal failure, creat cont to rise. Diuretics, spironolactone and lisinopril are on hold. Dr. Mckeon suspect contrast load + diuretics + decreased cardiac output as etiologies. <AMBREEN Hickman - Last Filed: 09/17/20 14:55> (5) Hypertension: Qualifiers: Hypertension type: essential hypertension Qualified Code(s): I10 - Essential (primary) hypertension <AMBREEN Hickman - Last Filed: 09/17/20 14:55> Code(s): I10 - Essential (primary) hypertension <AMBREEN Hickman - Last Filed: 09/17/20 14:55> Status: Chronic <AMBREEN Hickman - Last Filed: 09/17/20 14:55> Assessment and Plan: Running high. <AMBREEN Hickman - Last Filed: 09/17/20 14:55> (6) PVD (peripheral vascular disease): Code(s): I73.9 - Peripheral vascular disease, unspecified <AMBREEN Hickman - Last Filed: 09/17/20 14:55> Status: Chronic <AMBREEN Hickman - Last Filed: 09/17/20 14:55> Assessment and Plan: Followed by Dr. Carrillo. Continue anti-platelet agent. <Aretha Araujo, TWYLA-C - Last Filed: 09/17/20 14:55> Additional Plan Attending addendum: I have personally seen and examined this patient at bedside. Agree with above documentation and plan of care as outlined. Patient feeling better overall. Denies shortness of breath, edema improving slowly. Requesting Vaseline for her legs. The dizziness or chest pain. No new issues overnight. Renal funct
--- NOTE | 2020-09-17 15:08 | PCPTNOTE ---
Patient declined PT this afternoon. Patient states she was up out of bed this morning. PT will continue to follow per plan of care.
--- NOTE | 2020-09-17 15:47 | P.PNNP_ITS ---
Progress Note: A&P Assessment and Plan (1) REGINA (acute kidney injury): Code(s): N17.9 - Acute kidney failure, unspecified Status: Acute Assessment and Plan: * abrupt decline noted on this admission * only marginal improvement in creatinine to date * suspect multifactorial etiology: - contrast exposure (CT chest PE protocol on 09/09/20 with rise in creatinine 48 hours later) - recent drop in EF/worsening cardiomyopathy - concurrent LILLIAN-I and diuretic use on admission * follow trend of labs and UOP * monitor volume status as she is at risk for volume overload * is dobutamine gtt helping??? (2) Stage 3b chronic kidney disease: Code(s): N18.32 - Chronic kidney disease, stage 3b Status: Chronic Assessment and Plan: * creatinine has fluctuated to extremes but seems run around 1.4 - 1.9mg/dl in last year or so * presumably due to HTN, vascular disease, CHF/cardiomyopathy and age (3) Hyperkalemia: Code(s): E87.5 - Hyperkalemia Status: Acute Assessment and Plan: * due to #1 and previous LILLIAN-I + spironolactone use * treat medically for now * follow trend (4) Pleural effusion: Code(s): J90 - Pleural effusion, not elsewhere classified Status: Acute Assessment and Plan: * s/p thoracentesis * Pulmonary following * pleural fluid testing indicative of transudative effusion (5) Cardiomyopathy: Code(s): I42.9 - Cardiomyopathy, unspecified Status: Chronic Assessment and Plan: * worsened by recent Echo (down to 20 - 25%) -- EF better on stress test? * likely contributing to #1 * Cardiology following * LILLIAN-I and diuretics on hold due #1 * on dobutamine gtt (6) Hypertension: Qualifiers: Hypertension type: essential hypertension Qualified Code(s): I10 - Essential (primary) hypertension Code(s): I10 - Essential (primary) hypertension Status: Chronic Assessment and Plan: * reasonable control at this time * follow hemodynamics Will continue to follow. Subjective Date/time seen: 09/17/20 15:47 States that she feels better overall although not much improvement in renal function despite dobutamine gtt; however, she states she have been ambulating more and seems to think she has more energy. Exam Narrative: Exam Narrative: General: Elderly AA female in NAD Heart: normal S1 and S2; no rub Lungs: few crackles on left base and decrease at right base Abdomen: soft, nontender, nondistended, positive bowel sounds Extremities: no cyanosis or clubbing; trace edema Skin: no rash or nodules Objective Data Vital Signs Vital Signs: Vital Signs Temp Pulse Resp BP Pulse Ox 09/17/20 15:03 76 16 09/17/20 14:54 76 16 09/17/20 12:00 36.4 C L 77 18 160/54 H 96 09/17/20 10:00 80 09/17/20 08:57 80 16 09/17/20 08:48 79 16 09/17/20 08:29 83 09/17/20 08:00 36.4 C L 79 24 H 177/74 H 94 09/17/20 06:00 77 09/17/20 04:53 89 09/17/20 04:00 36.6 C 74 20 176/65 H 97 09/17/20 02:00 74 09/17/20 00:43 67 16 09/17/20 00:00 77 98 09/16/20 23:45 36.5 C 77 18 167/68 H 98 09/16/20 22:37 92 09/16/20 22:36 70 16 09/16/20 22:00 75
--- NOTE | 2020-09-17 15:47 | PM.PNNEP ---
Progress Note: A&P Assessment and Plan (1) REGINA (acute kidney injury): Code(s): N17.9 - Acute kidney failure, unspecified Status: Acute Assessment and Plan: abrupt decline noted on this admission only marginal improvement in creatinine to date suspect multifactorial etiology: - contrast exposure (CT chest PE protocol on 09/09/20 with rise in creatinine 48 hours later) - recent drop in EF/worsening cardiomyopathy - concurrent LILLIAN-I and diuretic use on admission follow trend of labs and UOP monitor volume status as she is at risk for volume overload is dobutamine gtt helping??? (2) Stage 3b chronic kidney disease: Code(s): N18.32 - Chronic kidney disease, stage 3b Status: Chronic Assessment and Plan: creatinine has fluctuated to extremes but seems run around 1.4 - 1.9mg/dl in last year or so presumably due to HTN, vascular disease, CHF/cardiomyopathy and age (3) Hyperkalemia: Code(s): E87.5 - Hyperkalemia Status: Acute Assessment and Plan: due to #1 and previous LILLIAN-I + spironolactone use treat medically for now follow trend (4) Pleural effusion: Code(s): J90 - Pleural effusion, not elsewhere classified Status: Acute Assessment and Plan: s/p thoracentesis Pulmonary following pleural fluid testing indicative of transudative effusion (5) Cardiomyopathy: Code(s): I42.9 - Cardiomyopathy, unspecified Status: Chronic Assessment and Plan: worsened by recent Echo (down to 20 - 25%) -- EF better on stress test? likely contributing to #1 Cardiology following LILLIAN-I and diuretics on hold due #1 on dobutamine gtt (6) Hypertension: Qualifiers: Hypertension type: essential hypertension Qualified Code(s): I10 - Essential (primary) hypertension Code(s): I10 - Essential (primary) hypertension Status: Chronic Assessment and Plan: reasonable control at this time follow hemodynamics Will continue to follow. Subjective Date/time seen: 09/17/20 15:47 States that she feels better overall although not much improvement in renal function despite dobutamine gtt; however, she states she have been ambulating more and seems to think she has more energy. Exam Narrative: Exam Narrative: General: Elderly AA female in NAD Heart: normal S1 and S2; no rub Lungs: few crackles on left base and decrease at right base Abdomen: soft, nontender, nondistended, positive bowel sounds Extremities: no cyanosis or clubbing; trace edema Skin: no rash or nodules Objective Data Vital Signs Vital Signs: Vital Signs Temp Pulse Resp BP Pulse Ox 09/17/20 15:03 76 16 09/17/20 14:54 76 16 09/17/20 12:00 36.4 C L 77 18 160/54 H 96 09/17/20 10:00 80 09/17/20 08:57 80 16 09/17/20 08:48 79 16 09/17/20 08:29 83 09/17/20 08:00 36.4 C L 79 24 H 177/74 H 94 09/17/20 06:00 77 09/17/20 04:53 89 09/17/20 04:00 36.6 C 74 20 176/65 H 97 09/17/20 02:00 74 09/17/20 00:43 67 16 09/17/20 00:00 77 98 09/16/20 23:45 36.5 C 77 18 167/68 H 98 09/16/20 22:37 92 09/16/20 22:36 70 16 09/16/20 22:00 75 09/16/20 20:00 36.4 C 77 20 155/73 H 92 09/16/20 18:09 76 09/16/20 18:00 76 Intake/Output Intake/Output: Intake & Output 09/14/20 09/15/20 09/16/20 09/17/20 23:59 23:59 23:59 23:59 Intake Total 830 1490 1276.4 303.6 Output Total 50 75 1050 450 Balance 780 1415 226.4 -146.4 Meds/Results Medications: Active Medications Generic Name Dose Route Start Last Admin Trade Name Freq PRN Reason Stop Dose Admin Acetaminophen 650 mg 09/11/20 10:29 09/17/20 11:10 Acetaminophen 325 Mg Tablet PO 650 mg Q4H PRN Administration Pain Rated 5 or Less Hydrocodone Bitart/Acetaminophen 1 tab 09/11/20 10:28 09/14/20 21:05 Hydrocodone/A
[2020-09-17 16:35] LABS: Anion Gap 8 mmol/L (8-16); Blood Urea Nitrogen 57 mg/dL (7-17); Calcium 8.1 mg/dL (8.4-10.2); Carbon Dioxide 26 mmol/L (22-30); Chloride 101 mmol/L (98-107); Estimated CRCL calculation 9 ml/min; Estimated Glomerular Filt Rate 13; Glucose 81 mg/dL (65-105); Potassium 4.9 mmol/L (3.4-5.0); Sodium 135 mmol/L (137-145)
[2020-09-17] MEDS: MELATONIN 3 MG TABLET PO (21:40)
[2020-09-17] MEDS: DOCUSATE SODIUM 100 MG CAPSULE PO (21:40)
[2020-09-18] VITALS (20 sets, daily range): BP systolic 160–191; BP diastolic 70–79; PULSE 74–95; RESP 16–20; TEMP 36.1–36.6; O2SAT 92–97
[2020-09-18] MEDS: hydrALAZINE HCL 20 MG/ML VIAL 10 MG IV PUSH (00:10)
[2020-09-18 05:36] LABS: Hematocrit 30.3 % (37.0-47.0); Hemoglobin 10.9 g/dL (12.0-15.0); Mean Corpuscular Hemoglobin 28.4 pg (26-34); Mean Corpuscular Volume 78.9 fl (80-100); Mean Platelet Volume 9.7 fl (7.4-10.4); Platelet Count Result 138 k/mm3 (150-375); Red Blood Count 3.84 M/mm3 (4.2-5.4); Red Cell Distribution Width 15.4 % (11.5-14.5); White Blood Count 5.2 K/mm3 (4.5-10.0)
[2020-09-18 05:45] LABS: Anion Gap 6 mmol/L (8-16); Blood Urea Nitrogen 57 mg/dL (7-17); Calcium 8.3 mg/dL (8.4-10.2); Carbon Dioxide 26 mmol/L (22-30); Chloride 102 mmol/L (98-107); Estimated CRCL calculation 9 ml/min; Estimated Glomerular Filt Rate 12; Glucose 71 mg/dL (65-105); Potassium 4.8 mmol/L (3.4-5.0); Sodium 134 mmol/L (137-145)
[2020-09-18] MEDS: hydrALAZINE 12.5 MG TABLET PO (06:15)
[2020-09-18] MEDS: BISACODYL 5 MG TABLET EC PO (08:47)
[2020-09-18] MEDS: DOCUSATE SODIUM 100 MG CAPSULE PO ×2 (08:47→20:41)
[2020-09-18] MEDS: ISOSORBIDE MONONITRATE 15 MG TAB.ER.24H PO (08:48)
[2020-09-18] MEDS: ASPIRIN 81 MG CHEWABLE TABLET PO (08:48)
[2020-09-18] MEDS: ATORVASTATIN 20 MG TABLET PO (08:48)
[2020-09-18] MEDS: METOPROLOL SUCCINATE EXT REL 25 MG TABCR PO (08:48)
[2020-09-18] MEDS: MAGNESIUM OXIDE 200 MG TABLET PO ×2 (08:48→20:41)
[2020-09-18] MEDS: FERROUS SULFATE 324 MG TABLET PO ×2 (08:48→17:48)
[2020-09-18] MEDS: IPRATROPIUM BR 0.02% INH SOLN 0.5 MG/2.5 ML VIAL INHALATION ×3 (09:10→18:02)
[2020-09-18] MEDS: ALBUTEROL SULFATE NEB 2.5 MG/0.5 ML INH INHALATION ×3 (09:10→18:02)
[2020-09-18] MEDS: DOBUTamine 250 MG/D5W 250 ML 250 MG/250 ML BAG 8.03 MG IV CONT (12:35)
--- NOTE | 2020-09-18 14:09 | PM.PNCARD ---
Progress Note: A&P Assessment and Plan (1) CHF (congestive heart failure): Qualifiers: Heart failure chronicity: acute on chronic Heart failure type: combined systolic and diastolic Qualified Code(s): I50.43 - Acute on chronic combined systolic (congestive) and diastolic (congestive) heart failure <AMBREEN Hickman - Last Filed: 09/18/20 15:01> Code(s): I50.9 - Heart failure, unspecified <AMBREEN Hickman - Last Filed: 09/18/20 15:01> Status: Acute <AMBREEN Hickman - Last Filed: 09/18/20 15:01> Assessment and Plan: Acute on chronic CHF. EF has further declined. Unfortunately her renal function has worsened significantly. No oxygen requirement, mild bilateral pedal edema. On HEALTH SCIENCES PROGRAM COORDINATOR 2.5 mcg/kg/min - probably not providing much additional benefit at this point (SCR from 4.9 to 4.3 in 3 days). Nephrology agrees that maximum benefit from inotrope has probably been achieved. Will discontinue HEALTH SCIENCES PROGRAM COORDINATOR. <AMBREEN Hickman - Last Filed: 09/18/20 15:01> (2) Cardiomyopathy: Code(s): I42.9 - Cardiomyopathy, unspecified <AMBREEN Hickman - Last Filed: 09/18/20 15:01> Status: Chronic <AMBREEN Hickman - Last Filed: 09/18/20 15:01> Assessment and Plan: EF 20-25% by Echo (55% by Oliva). Possibly ischemic as pt has reversible ischemia by Oliva. Eventual cardiac catheterization but unable to do so presently because of her acute renal failure. In the meantime, treat for presumed CAD with aspirin, statin and metoprolol. Add low dose hydralazine plus nitrates for cardiomyopathy and CHF. <AMBREEN Hickman - Last Filed: 09/18/20 15:01> (3) Pleural effusion: Code(s): J90 - Pleural effusion, not elsewhere classified <AMBREEN Hickman - Last Filed: 09/18/20 15:01> Status: Acute <AMBREEN Hickman - Last Filed: 09/18/20 15:01> Assessment and Plan: Status post thoracentesis, transudative, neg cytology. <AMBREEN Hickman - Last Filed: 09/18/20 15:01> (4) CKD (chronic kidney disease): Qualifiers: Chronic kidney disease stage: stage 3 (moderate) Chronic kidney disease stage 3 subtype: stage 3b (GFR 30-44) Qualified Code(s): N18.32 - Chronic kidney disease, stage 3b <AMBREEN Hickman - Last Filed: 09/18/20 15:01> Code(s): N18.9 - Chronic kidney disease, unspecified <AMBREEN Hickman - Last Filed: 09/18/20 15:01> Status: Chronic <AMBREEN Hickman - Last Filed: 09/18/20 15:01> Assessment and Plan: Acute renal failure, creat cont to rise. Spironolactone and lisinopril are on hold. Dr. Mckeon suspect contrast load + diuretics + decreased cardiac output as etiologies. Spoke with Dr. Mckeon regarding restarting low dose diuretics at this time - he thought it reasonable to resume low dose furosemide. <AMBREEN Hickman - Last Filed: 09/18/20 15:01> (5) Hypertension: Qualifiers: Hypertension type: essential hypertension Qualified Code(s): I10 - Essential (primary) hypertension <AMBREEN Hickman - Last Filed: 09/18/20 15:01> Code(s): I10 - Essential (primary) hypertension <AMBREEN Hickman - Last Filed: 09/18/20 15:01> Status: Chronic <AMBREEN Hickman - Last Filed: 09/18/20 15:01> Assessment and Plan: Running high. Increase Imdue to 30mg daily, hydralazine 25mg q8 <AMBREEN Hickman - Last Filed: 09/18/20 15:01> (6) PVD (peripheral vascular disease): Code(s): I73.9 - Peripheral vascular disease, unspecified <AMBREEN Hickman - Last Filed: 09/18/20 15:01> Status: Chronic <AMBREEN Hickman - Last Filed: 09/18/20 15:01> Assessment and Plan: Followed by Dr. Carrillo. Continue anti-platelet agent. <AMBREEN Hickman - Last Filed: 09/18/20 15:01> Additional Plan Attending chepe Kumar
[2020-09-18] MEDS: hydrALAZINE HCL 25 MG TABLET PO ×2 (14:12→20:41)
--- NOTE | 2020-09-18 15:27 | PM.PNNEP ---
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/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 which I discussed with her (2) Stage 3b chronic kidney disease: Code(s): N18.32 - Chronic kidney disease, stage 3b Status: Chronic Assessment and Plan: creatinine has fluctuated to extremes but seems run around 1.4 - 1.9mg/dl in last year or so presumably due to HTN, vascular disease, CHF/cardiomyopathy and age (3) Hyperkalemia: Code(s): E87.5 - Hyperkalemia Status: Acute Assessment and Plan: due to #1 and previous LILLIAN-I + spironolactone use treat medically for now follow trend (4) Pleural effusion: Code(s): J90 - Pleural effusion, not elsewhere classified Status: Acute Assessment and Plan: s/p thoracentesis Pulmonary following pleural fluid testing indicative of transudative effusion (5) Cardiomyopathy: Code(s): I42.9 - Cardiomyopathy, unspecified Status: Chronic Assessment and Plan: worsened by recent Echo (down to 20 - 25%) -- EF better on stress test? likely contributing to #1 Cardiology following off dobutamine gtt agree with restart of diuretics and follow response (6) Hypertension: Qualifiers: Hypertension type: essential hypertension Qualified Code(s): I10 - Essential (primary) hypertension Code(s): I10 - Essential (primary) hypertension Status: Chronic Assessment and Plan: elevated at this time follow hemodynamics BP medication changes as noted by Cardiology Will continue to follow. Subjective Date/time seen: 09/18/20 15:27 Overall, she states she feels reasonably well; no complaints of shortness of breath and states she feels like she has more energy today; no real significant improvement in kidney function with dobutamine gtt so was discontinued not to long ago. Exam Narrative: Exam Narrative: General: Elderly AA female in NAD Heart: normal S1 and S2; no rub Lungs: decreased at bases Abdomen: soft, nontender, nondistended, positive bowel sounds Extremities: no cyanosis or clubbing; trace edema Skin: warm and dry Objective Data Vital Signs Vital Signs: Vital Signs Temp Pulse Resp BP Pulse Ox 09/18/20 14:13 87 180/70 H 09/18/20 14:00 78 09/18/20 13:33 78 18 09/18/20 13:24 74 16 09/18/20 12:35 83 09/18/20 12:00 36.2 C L 82 20 180/70 H 92 09/18/20 10:00 83 09/18/20 09:31 84 16 09/18/20 08:48 91 09/18/20 08:00 84 92 09/18/20 06:00 78 09/18/20 04:00 36.6 C 78 20 160/76 H 97 09/18/20 02:00 77 09/18/20 00:00 77 09/17/20 23:51 36.7 C 76 20 184/77 H 97 09/17/20 22:00 75 Intake/Output Intake/Output: Intake & Output 09/15/20 09/16/20 09/17/20 09/18/20 23:59 23:59 23:59 23:59 Intake Total 1490 1276.4 1398.6 1606.8 Output Total 75 3360 023 6736 Balance 1415 226.4 948.6 106.8 Meds/Results Medications: Active Medications Generic Name Dose Route Start Last Admin Trade Name Freq PRN Reason Stop Dose Admin Acetaminophen 650 mg 09/11/20 10:29 09/17/20 11:10 Acetaminophen 325 Mg Tablet PO 650 mg Q4H PRN Administration Pain Rated 5 or Less Hydrocodone Bitart/Acetaminophen 1 tab 09/11/20 10:28 09/14/20 21:05 Hydrocodone/Acetaminophen (*Crx) 5-325 Mg Tablet PO 1 tab Q4H PRN Admini
--- NOTE | 2020-09-18 15:27 | P.PNNP_ITS ---
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 TODDLER 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/dialysis which I discussed with her (2) Stage 3b chronic kidney disease: Code(s): N18.32 - Chronic kidney disease, stage 3b Status: Chronic Assessment and Plan: * creatinine has fluctuated to extremes but seems run around 1.4 - 1.9mg/dl in last year or so * presumably due to HTN, vascular disease, CHF/cardiomyopathy and age (3) Hyperkalemia: Code(s): E87.5 - Hyperkalemia Status: Acute Assessment and Plan: * due to #1 and previous LILLIAN-I + spironolactone use * treat medically for now * follow trend (4) Pleural effusion: Code(s): J90 - Pleural effusion, not elsewhere classified Status: Acute Assessment and Plan: * s/p thoracentesis * Pulmonary following * pleural fluid testing indicative of transudative effusion (5) Cardiomyopathy: Code(s): I42.9 - Cardiomyopathy, unspecified Status: Chronic Assessment and Plan: * worsened by recent Echo (down to 20 - 25%) -- EF better on stress test? * likely contributing to #1 * Cardiology following * off dobutamine gtt * agree with restart of diuretics and follow response (6) Hypertension: Qualifiers: Hypertension type: essential hypertension Qualified Code(s): I10 - Essential (primary) hypertension Code(s): I10 - Essential (primary) hypertension Status: Chronic Assessment and Plan: * elevated at this time * follow hemodynamics * BP medication changes as noted by Cardiology Will continue to follow. Subjective Date/time seen: 09/18/20 15:27 Overall, she states she feels reasonably well; no complaints of shortness of breath and states she feels like she has more energy today; no real significant improvement in kidney function with dobutamine gtt so was discontinued not to long ago. Exam Narrative: Exam Narrative: General: Elderly AA female in NAD Heart: normal S1 and S2; no rub Lungs: decreased at bases Abdomen: soft, nontender, nondistended, positive bowel sounds Extremities: no cyanosis or clubbing; trace edema Skin: warm and dry Objective Data Vital Signs Vital Signs: Vital Signs Temp Pulse Resp BP Pulse Ox 09/18/20 14:13 87 180/70 H 09/18/20 14:00 78 09/18/20 13:33 78 18 09/18/20 13:24 74 16 09/18/20 12:35 83 09/18/20 12:00 36.2 C L 82 20 180/70 H 92 09/18/20 10:00 83 09/18/20 09:31 84 16 09/18/20 08:48 91 09/18/20 08:00 84 92 09/18/20 06:00 78 09/18/20 04:00 36.6 C 78 20 160/76 H 97 09/18/20 02:00 77 09/18/20 00:00 77 09/17/20 23:51 36.7 C 76 20 184/77 H 97 09/17/20 22:00 75
--- NOTE | 2020-09-18 16:31 | PM.IMPN ---
Progress Note: A&P Assessment and Plan (1) Pleural effusion: Code(s): J90 - Pleural effusion, not elsewhere classified Status: Acute Assessment and Plan: INTERVAL HISTORY Patient presents with worsening shortness of breath. Chest XR and CTA chest demonstrated a very large right pleural effusion in the middle and right lower lobe. Underwent a US-guided thoracentesis 09/10 which yielded 1L clear yellow fluid; pH 7.38. Again suspect CHF is the most likely cause while awaiting further pleural fluid studies. No malignant cells noted on cytology. BNP > 35,000. Therapy is limited given her worsening renal function. She initially received a few doses of IV lasix and spironolactone, now held with worsening renal failure. No respiratory distress or SOB. She is intermittently mildly hypoxic. Pt is transferred to IMU now on dobutamine (2) CHF (congestive heart failure): Qualifiers: Heart failure type: combined systolic and diastolic Heart failure chronicity: acute on chronic Qualified Code(s): I50.43 - Acute on chronic combined systolic (congestive) and diastolic (congestive) heart failure Code(s): I50.9 - Heart failure, unspecified Status: Acute Assessment and Plan: Known EF 35-40% back in May 2020, repeat echocardiogram now demonstrates further decline EF 20-25% (55% on Lexiscan). Appreciate cardiology input. Lexiscan with evidence of ischemia. Consideration of coronary disease, will benefit from cardiac cath eventually once renal function improves. Cardiology has initiated statin therapy, hydralazine, Imdur. Pt is transferred to [facility] now on dobutamine (3) Acute on chronic renal failure: Qualifiers: Acute renal failure type: unspecified Chronic kidney disease stage: unspecified stage Qualified Code(s): N17.9 - Acute kidney failure, unspecified; N18.9 - Chronic kidney disease, unspecified Code(s): N17.9 - Acute kidney failure, unspecified; N18.9 - Chronic kidney disease, unspecified Status: Acute Assessment and Plan: Cr trending up after initially treated with diuretics on arrival, also contrast exposure 09/09, worsening EF. Diuretics held. Monitor renal function and electrolytes daily. Appreciate nephrology input. Hyperkalemia I suspect related to renal failure - continue to monitor. Pt is transferred to [facility] now on dobutamine (4) COPD (chronic obstructive pulmonary disease): Qualifiers: COPD type: unspecified COPD Qualified Code(s): J44.9 - Chronic obstructive pulmonary disease, unspecified Code(s): J44.9 - Chronic obstructive pulmonary disease, unspecified Status: Chronic Assessment and Plan: With prominent centrilobular emphysema noted on imaging. Continue bronchodilator therapy with duo nebs. Appreciate pulmonology input. See Dr Magaña's progress note for plan of discharge medications. Plan for home oxygen evaluation day of discharge and Apnea Link to assess nocturnal O2 needs on the evening prior to discharge. (5) Hypertension: Qualifiers: Hypertension type: essential hypertension Qualified Code(s): I10 - Essential (primary) hypertension Code(s): I10 - Essential (primary) hypertension Status: Chronic Assessment and Plan: Blood pressures reviewed and are variable. Cardiology added hydralazine. Lisinopril and diuretics held. Monitor BP and adjust treatment as needed. Pt is transferred to [facility] now on dobutamine (6) PVD (peripheral vascular disease): Code(s): I73.9 - Peripheral vascular disease, unspecified Status: Chronic Assessment and Plan: With history of multiple vascular procedures last with lower extremity stent placement October 2019. Follows with Dr. Bejarano
[2020-09-18] MEDS: MELATONIN 3 MG TABLET PO (20:41)
[2020-09-19] VITALS (19 sets, daily range): BP systolic 143–181; BP diastolic 59–78; PULSE 69–100; RESP 12–20; TEMP 36.1–36.6; O2SAT 92–98
[2020-09-19 05:40] LABS: Anion Gap 4 mmol/L (8-16); Blood Urea Nitrogen 54 mg/dL (7-17); Calcium 8.2 mg/dL (8.4-10.2); Carbon Dioxide 28 mmol/L (22-30); Chloride 102 mmol/L (98-107); Estimated CRCL calculation 10 ml/min; Estimated Glomerular Filt Rate 14; Glucose 68 mg/dL (65-105); Potassium 4.6 mmol/L (3.4-5.0); Sodium 134 mmol/L (137-145)
[2020-09-19] MEDS: hydrALAZINE HCL 25 MG TABLET PO ×3 (07:00→20:39)
[2020-09-19] MEDS: ALBUTEROL SULFATE NEB 2.5 MG/0.5 ML INH INHALATION ×3 (08:37→20:27)
[2020-09-19] MEDS: IPRATROPIUM BR 0.02% INH SOLN 0.5 MG/2.5 ML VIAL INHALATION ×3 (08:37→20:28)
[2020-09-19] MEDS: polyethylene glycoL 3350 17 GM POWD.PACK PO (11:27)
[2020-09-19] MEDS: FERROUS SULFATE 324 MG TABLET PO ×2 (11:28→17:38)
[2020-09-19] MEDS: ISOSORBIDE MONONITRATE 15 MG TAB.ER.24H 30 MG PO (11:28)
[2020-09-19] MEDS: ASPIRIN 81 MG CHEWABLE TABLET PO (11:28)
[2020-09-19] MEDS: DOCUSATE SODIUM 100 MG CAPSULE PO ×2 (11:29→20:39)
[2020-09-19] MEDS: METOPROLOL SUCCINATE EXT REL 25 MG TABCR PO (11:29)
[2020-09-19] MEDS: MAGNESIUM OXIDE 200 MG TABLET PO ×2 (11:29→20:39)
[2020-09-19] MEDS: ATORVASTATIN 20 MG TABLET PO (11:29)
--- NOTE | 2020-09-19 14:13 | P.PNNP_ITS ---
Progress Note: A&P Assessment and Plan (1) REGINA (acute kidney injury): Code(s): N17.9 - Acute kidney failure, unspecified Status: Acute Assessment and Plan: * Acute kidney injury. * She had contrast this admission ruling out pulmonary embolism. A subsequent CT show persistent nephrograms. So this is likely contrast nephropathy. * She also has a low ejection fraction (25%) and a positive Lexiscan which would give her chronic pre renal azotemia. * Her creatinine has started to improve a little bit. * She still has some swelling. (2) Stage 3b chronic kidney disease: Code(s): N18.32 - Chronic kidney disease, stage 3b Status: Chronic Assessment and Plan: * creatinine has fluctuated to extremes but seems run around 1.4 - 1.9mg/dl in last year or so * presumably due to HTN, vascular disease, CHF/cardiomyopathy and age (3) Hyperkalemia: Code(s): E87.5 - Hyperkalemia Status: Acute Assessment and Plan: * due to #1 and previous LILLIAN-I + spironolactone use * Potassium is okay now. * She is on a loop diuretic which helps. * She also was on spironolactone because of her very poor ejection fraction. Hopefully the loop diuretic will balance the spironolactone and keep her from developing hyperkalemia again. * Check another potassium tomorrow (4) Pleural effusion: Code(s): J90 - Pleural effusion, not elsewhere classified Status: Acute Assessment and Plan: * s/p thoracentesis * Pulmonary following * pleural fluid testing indicative of transudative effusion (5) Cardiomyopathy: Code(s): I42.9 - Cardiomyopathy, unspecified Status: Chronic Assessment and Plan: * worsened by recent Echo (down to 20 - 25%) -- EF better on stress test? * likely contributing to #1 * Cardiology following * off dobutamine gtt * agree with restart of diuretics and follow response * Follow creatinine as we gracee (6) Hypertension: Qualifiers: Hypertension type: essential hypertension Qualified Code(s): I10 - Essential (primary) hypertension Code(s): I10 - Essential (primary) hypertension Status: Chronic Assessment and Plan: * elevated at this time * follow hemodynamics * BP medication changes as noted by Cardiology Subjective Date/time seen: 09/19/20 14:13 Exam Narrative: Exam Narrative: General: Elderly AA female in NAD Heart: normal S1 and S2; no rub Lungs: decreased at bases Abdomen: soft, nontender, nondistended, positive bowel sounds Extremities: no cyanosis or clubbing; trace edema Skin: warm and dry Objective Data Vital Signs Vital Signs: Vital Signs - 24 hr 09/18/20 16:00 09/18/20 18:00 09/18/20 18:02 Temperature 36.6 C Pulse Rate 81 83 81 Respiratory Rate 20 16 Blood Pressure 170/76 H Pulse Oximetry 96 09/18/20 18:11 09/18/20 20:00 09/18/20 22:00 Temperature 36.1 C L Pulse Rate 83 95 87 Respiratory Rate 16 20 Blood Pressure 191/79 H Pulse Oximetry 96 09/19/20 00:00 09/19/20 02:00 09/19/20 04:00 Temperature 36.1 C L 36.1 C L Pulse Rate 96 84 86 Respiratory Rate 20 16 Blood Pressure 181/74 H 181/78 H Pulse Oximetry 94 98 09/19/20 06:00 09/19/20 08:00 09/19/20 08:38 T
--- NOTE | 2020-09-19 14:13 | PM.PNNEP ---
Progress Note: A&P Assessment and Plan (1) REGINA (acute kidney injury): Code(s): N17.9 - Acute kidney failure, unspecified Status: Acute Assessment and Plan: Acute kidney injury. She had contrast this admission ruling out pulmonary embolism. A subsequent CT show persistent nephrograms. So this is likely contrast nephropathy. She also has a low ejection fraction (25%) and a positive Lexiscan which would give her chronic pre renal azotemia. Her creatinine has started to improve a little bit. She still has some swelling. (2) Stage 3b chronic kidney disease: Code(s): N18.32 - Chronic kidney disease, stage 3b Status: Chronic Assessment and Plan: creatinine has fluctuated to extremes but seems run around 1.4 - 1.9mg/dl in last year or so presumably due to HTN, vascular disease, CHF/cardiomyopathy and age (3) Hyperkalemia: Code(s): E87.5 - Hyperkalemia Status: Acute Assessment and Plan: due to #1 and previous LILLIAN-I + spironolactone use Potassium is okay now. She is on a loop diuretic which helps. She also was on spironolactone because of her very poor ejection fraction. Hopefully the loop diuretic will balance the spironolactone and keep her from developing hyperkalemia again. Check another potassium tomorrow (4) Pleural effusion: Code(s): J90 - Pleural effusion, not elsewhere classified Status: Acute Assessment and Plan: s/p thoracentesis Pulmonary following pleural fluid testing indicative of transudative effusion (5) Cardiomyopathy: Code(s): I42.9 - Cardiomyopathy, unspecified Status: Chronic Assessment and Plan: worsened by recent Echo (down to 20 - 25%) -- EF better on stress test? likely contributing to #1 Cardiology following off dobutamine gtt agree with restart of diuretics and follow response Follow creatinine as we diurese (6) Hypertension: Qualifiers: Hypertension type: essential hypertension Qualified Code(s): I10 - Essential (primary) hypertension Code(s): I10 - Essential (primary) hypertension Status: Chronic Assessment and Plan: elevated at this time follow hemodynamics BP medication changes as noted by Cardiology Subjective Date/time seen: 09/19/20 14:13 Exam Narrative: Exam Narrative: General: Elderly AA female in NAD Heart: normal S1 and S2; no rub Lungs: decreased at bases Abdomen: soft, nontender, nondistended, positive bowel sounds Extremities: no cyanosis or clubbing; trace edema Skin: warm and dry Objective Data Vital Signs Vital Signs: Vital Signs - 24 hr 09/18/20 16:00 09/18/20 18:00 09/18/20 18:02 Temperature 36.6 C Pulse Rate 81 83 81 Respiratory Rate 20 16 Blood Pressure 170/76 H Pulse Oximetry 96 09/18/20 18:11 09/18/20 20:00 09/18/20 22:00 Temperature 36.1 C L Pulse Rate 83 95 87 Respiratory Rate 16 20 Blood Pressure 191/79 H Pulse Oximetry 96 09/19/20 00:00 09/19/20 02:00 09/19/20 04:00 Temperature 36.1 C L 36.1 C L Pulse Rate 96 84 86 Respiratory Rate 20 16 Blood Pressure 181/74 H 181/78 H Pulse Oximetry 94 98 09/19/20 06:00 09/19/20 08:00 09/19/20 08:38 Temperature 36.6 C Pulse Rate 90 82 80 Respiratory Rate 16 16 Blood Pressure 171/68 H Pulse Oximetry 92 09/19/20 08:46 09/19/20 10:00 09/19/20 11:29 Temperature Pulse Rate 83 91 85 Respiratory Rate 16 Blood Pressure Pulse Oximetry 09/19/20 12:00 09/19/20 14:00 Temperature 36.4 C L Pulse Rate 69 78 Respiratory Rate 18 Blood Pressure 149/65 H Pulse Oximetry 96 Intake/Output Intake/Output: Intake & Output 09/16/20 09/17/20 09/18/20 09/19/20 23:59 23:59 23:59 23:59 Intake Total 1276.4 1398.6 1606.8 740 Output Total 0067 851 3954 1250 Balance 226.4 948.6 106.8 -510 Meds/Results Medications: Active Medications Generic Name Dose Route Start Last Admin Trade Name F
[2020-09-19] MEDS: FUROSEMIDE INJ 40 MG/4 ML VIAL IV PUSH (14:16)
[2020-09-19] MEDS: EUCERIN CREAM 120 GM JAR 1 APPLIC TOPICAL (14:24)
--- NOTE | 2020-09-19 16:24 | P.PNIM_ITS ---
Progress Note: A&P Assessment and Plan (1) Pleural effusion: Code(s): J90 - Pleural effusion, not elsewhere classified Status: Acute Assessment and Plan: INTERVAL HISTORY * Patient presents with worsening shortness of breath. Chest XR and CTA chest demonstrated a very large right pleural effusion in the middle and right lower lobe. * Underwent a US-guided thoracentesis 09/10 which yielded 1L clear yellow fluid; pH 7.38. * Again suspect CHF is the most likely cause while awaiting further pleural fluid studies. No malignant cells noted on cytology. BNP > 35,000. * Therapy is limited given her worsening renal function. She initially received a few doses of IV lasix and spironolactone, now held with worsening renal failure. * No respiratory distress or SOB. She is intermittently mildly hypoxic. * off dobutamine (2) CHF (congestive heart failure): Qualifiers: Heart failure type: combined systolic and diastolic Heart failure chronicity: acute on chronic Qualified Code(s): I50.43 - Acute on chronic combined systolic (congestive) and diastolic (congestive) heart failure Code(s): I50.9 - Heart failure, unspecified Status: Acute Assessment and Plan: * Known EF 35-40% back in May 2020, repeat echocardiogram now demonstrates further decline EF 20-25% (55% on Lexiscan). * Appreciate cardiology input. Lexiscan with evidence of ischemia. Consideration of coronary disease, will benefit from cardiac cath eventually once renal function improves. Cardiology has initiated statin therapy, hydralazine, Imdur. * off dobutamine (3) Acute on chronic renal failure: Qualifiers: Acute renal failure type: unspecified Chronic kidney disease stage: unspecified stage Qualified Code(s): N17.9 - Acute kidney failure, unspecified; N18.9 - Chronic kidney disease, unspecified Code(s): N17.9 - Acute kidney failure, unspecified; N18.9 - Chronic kidney disease, unspecified Status: Acute Assessment and Plan: * Cr trending up after initially treated with diuretics on arrival, also contrast exposure 09/09, worsening EF. * Diuretics held. Monitor renal function and electrolytes daily. Appreciate nephrology input. * off dobutamine (4) COPD (chronic obstructive pulmonary disease): Qualifiers: COPD type: unspecified COPD Qualified Code(s): J44.9 - Chronic obstructive pulmonary disease, unspecified Code(s): J44.9 - Chronic obstructive pulmonary disease, unspecified Status: Chronic Assessment and Plan: * With prominent centrilobular emphysema noted on imaging. Continue bronchodilator therapy with duo nebs. * Appreciate pulmonology input. See Dr Magaña's progress note for plan of discharge medications. Plan for home oxygen evaluation day of discharge and Apnea Link to assess nocturnal O2 needs on the evening prior to discharge. (5) Hypertension: Qualifiers: Hypertension type: essential hypertension Qualified Code(s): I10 - Essential (primary) hypertension Code(s): I10 - Essential (primary) hypertension Status: Chronic Assessment and Plan: * Blood pressures reviewed and are variable. Cardiology added hydralazine. Lisinopril and diuretics held. * Monitor BP and adjust treatment as needed. * Pt is transferred to [facility] now on dobutamine (6) PVD (peripheral vascular disease): Code(
--- NOTE | 2020-09-19 16:24 | PM.IMPN ---
Progress Note: A&P Assessment and Plan (1) Pleural effusion: Code(s): J90 - Pleural effusion, not elsewhere classified Status: Acute Assessment and Plan: INTERVAL HISTORY Patient presents with worsening shortness of breath. Chest XR and CTA chest demonstrated a very large right pleural effusion in the middle and right lower lobe. Underwent a US-guided thoracentesis 09/10 which yielded 1L clear yellow fluid; pH 7.38. Again suspect CHF is the most likely cause while awaiting further pleural fluid studies. No malignant cells noted on cytology. BNP > 35,000. Therapy is limited given her worsening renal function. She initially received a few doses of IV lasix and spironolactone, now held with worsening renal failure. No respiratory distress or SOB. She is intermittently mildly hypoxic. off dobutamine (2) CHF (congestive heart failure): Qualifiers: Heart failure type: combined systolic and diastolic Heart failure chronicity: acute on chronic Qualified Code(s): I50.43 - Acute on chronic combined systolic (congestive) and diastolic (congestive) heart failure Code(s): I50.9 - Heart failure, unspecified Status: Acute Assessment and Plan: Known EF 35-40% back in May 2020, repeat echocardiogram now demonstrates further decline EF 20-25% (55% on Lexiscan). Appreciate cardiology input. Lexiscan with evidence of ischemia. Consideration of coronary disease, will benefit from cardiac cath eventually once renal function improves. Cardiology has initiated statin therapy, hydralazine, Imdur. off dobutamine (3) Acute on chronic renal failure: Qualifiers: Acute renal failure type: unspecified Chronic kidney disease stage: unspecified stage Qualified Code(s): N17.9 - Acute kidney failure, unspecified; N18.9 - Chronic kidney disease, unspecified Code(s): N17.9 - Acute kidney failure, unspecified; N18.9 - Chronic kidney disease, unspecified Status: Acute Assessment and Plan: Cr trending up after initially treated with diuretics on arrival, also contrast exposure 09/09, worsening EF. Diuretics held. Monitor renal function and electrolytes daily. Appreciate nephrology input. off dobutamine (4) COPD (chronic obstructive pulmonary disease): Qualifiers: COPD type: unspecified COPD Qualified Code(s): J44.9 - Chronic obstructive pulmonary disease, unspecified Code(s): J44.9 - Chronic obstructive pulmonary disease, unspecified Status: Chronic Assessment and Plan: With prominent centrilobular emphysema noted on imaging. Continue bronchodilator therapy with duo nebs. Appreciate pulmonology input. See Dr Magaña's progress note for plan of discharge medications. Plan for home oxygen evaluation day of discharge and Apnea Link to assess nocturnal O2 needs on the evening prior to discharge. (5) Hypertension: Qualifiers: Hypertension type: essential hypertension Qualified Code(s): I10 - Essential (primary) hypertension Code(s): I10 - Essential (primary) hypertension Status: Chronic Assessment and Plan: Blood pressures reviewed and are variable. Cardiology added hydralazine. Lisinopril and diuretics held. Monitor BP and adjust treatment as needed. Pt is transferred to [facility] now on dobutamine (6) PVD (peripheral vascular disease): Code(s): I73.9 - Peripheral vascular disease, unspecified Status: Chronic Assessment and Plan: With history of multiple vascular procedures last with lower extremity stent placement October 2019. Follows with Dr. Carrillo. (7) Anemia: Qualifiers: Anemia type: unspecified type Qualified Code(s): D64.9 - Anemia
--- NOTE | 2020-09-19 18:12 | PM.PNCARD ---
Progress Note: A&P Assessment and Plan (1) CHF (congestive heart failure): Qualifiers: Heart failure chronicity: acute on chronic Heart failure type: combined systolic and diastolic Qualified Code(s): I50.43 - Acute on chronic combined systolic (congestive) and diastolic (congestive) heart failure <AMBREEN Hickman - Last Filed: 09/19/20 18:20> Code(s): I50.9 - Heart failure, unspecified <AMBREEN Hickman - Last Filed: 09/19/20 18:20> Status: Acute <AMBREEN Hickman - Last Filed: 09/19/20 18:20> Assessment and Plan: Acute on chronic CHF. EF has further declined. Unfortunately her renal function has worsened significantly. No oxygen requirement, mild bilateral pedal edema. was [employer] 2.5 mcg/kg/min - probably not providing much additional benefit at this point (SCR from 4.9 to 4.3 in 3 days). Nephrology agrees that maximum benefit from inotrope has probably been achieved. Dobutamine discontinued. She remains hemodynamically stable. Life vest ordered. <AMBREEN Hickman - Last Filed: 09/19/20 18:20> (2) Cardiomyopathy: Code(s): I42.9 - Cardiomyopathy, unspecified <AMBREEN Hickman - Last Filed: 09/19/20 18:20> Status: Chronic <AMBREEN Hickman - Last Filed: 09/19/20 18:20> Assessment and Plan: EF 20-25% by Echo (55% by Oliva). Possibly ischemic as pt has reversible ischemia by Oliva. Eventual cardiac catheterization but unable to do so presently because of her acute renal failure. In the meantime, treat for presumed CAD with aspirin, statin and metoprolol. Add low dose hydralazine plus nitrates for cardiomyopathy and CHF. <AMBREEN Hickman - Last Filed: 09/19/20 18:20> (3) Pleural effusion: Code(s): J90 - Pleural effusion, not elsewhere classified <AMBREEN Hickman - Last Filed: 09/19/20 18:20> Status: Acute <AMBREEN Hickman - Last Filed: 09/19/20 18:20> Assessment and Plan: Status post thoracentesis, transudative, neg cytology. <AMBREEN Hickman - Last Filed: 09/19/20 18:20> (4) CKD (chronic kidney disease): Qualifiers: Chronic kidney disease stage: stage 3 (moderate) Chronic kidney disease stage 3 subtype: stage 3b (GFR 30-44) Qualified Code(s): N18.32 - Chronic kidney disease, stage 3b <AMBREEN Hickman - Last Filed: 09/19/20 18:20> Code(s): N18.9 - Chronic kidney disease, unspecified <AMBREEN Hickman - Last Filed: 09/19/20 18:20> Status: Chronic <AMBREEN Hickman - Last Filed: 09/19/20 18:20> Assessment and Plan: Acute renal failure, creat cont to rise. Spironolactone and lisinopril are on hold. Dr. Mckeon suspect contrast load + diuretics + decreased cardiac output as etiologies. Spoke with Dr. Mckeon regarding restarting low dose diuretics at this time - he thought it reasonable to resume low dose furosemide. <AMBREEN Hickman - Last Filed: 09/19/20 18:20> (5) Hypertension: Qualifiers: Hypertension type: essential hypertension Qualified Code(s): I10 - Essential (primary) hypertension <AMBREEN Hickman - Last Filed: 09/19/20 18:20> Code(s): I10 - Essential (primary) hypertension <AMBREEN Hickman - Last Filed: 09/19/20 18:20> Status: Chronic <AMBREEN Hickman - Last Filed: 09/19/20 18:20> Assessment and Plan: Improving. May need to advance hydralazine <AMBREEN Hickman - Last Filed: 09/19/20 18:20> (6) PVD (peripheral vascular disease): Code(s): I73.9 - Peripheral vascular disease, unspecified <AMBREEN Hickman - Last Filed: 09/19/20 18:20> Status: Chronic <AMBREEN Hickman - Last Filed: 09/19/20 18:20> Assessment and Plan: Followed by Dr. Carrillo. Continue anti-platelet agent. <AMBREEN Hickman - Last Filed: 09/19/20 18:20> Addition
[2020-09-19] MEDS: MELATONIN 3 MG TABLET PO (20:40)
[2020-09-20] VITALS (19 sets, daily range): BP systolic 123–189; BP diastolic 57–84; PULSE 77–94; RESP 14–20; TEMP 35.6–36.3; O2SAT 94–97
[2020-09-20] MEDS: hydrALAZINE HCL 25 MG TABLET PO ×2 (05:07→13:43)
[2020-09-20 05:23] LABS: Hematocrit 27.8 % (37.0-47.0); Mean Corpuscular Hemoglobin 28.2 pg (26-34); Mean Corpuscular Volume 78.5 fl (80-100); Mean Platelet Volume 8.6 fl (7.4-10.4); Platelet Count Result 128 k/mm3 (150-375); Red Blood Count 3.54 M/mm3 (4.2-5.4); Red Cell Distribution Width 15.6 % (11.5-14.5); White Blood Count 5.3 K/mm3 (4.5-10.0)
[2020-09-20 05:52] LABS: Albumin Level 2.7 g/dL (3.5-5.1); Anion Gap 4 mmol/L (8-16); Blood Urea Nitrogen 54 mg/dL (7-17); Calcium 8.1 mg/dL (8.4-10.2); Carbon Dioxide 28 mmol/L (22-30); Chloride 102 mmol/L (98-107); Estimated CRCL calculation 10 ml/min; Estimated Glomerular Filt Rate 14; Glucose 66 mg/dL (65-105); Phosphorus 4.5 mg/dL (2.5-4.5); Potassium 4.7 mmol/L (3.4-5.0); Sodium 134 mmol/L (137-145)
[2020-09-20] MEDS: METOPROLOL SUCCINATE EXT REL 25 MG TABCR PO (08:39)
[2020-09-20] MEDS: MAGNESIUM OXIDE 200 MG TABLET PO (08:40)
[2020-09-20] MEDS: FERROUS SULFATE 324 MG TABLET PO (08:40)
[2020-09-20] MEDS: DOCUSATE SODIUM 100 MG CAPSULE PO (08:40)
[2020-09-20] MEDS: ASPIRIN 81 MG CHEWABLE TABLET PO (08:40)
[2020-09-20] MEDS: ISOSORBIDE MONONITRATE 15 MG TAB.ER.24H 30 MG PO (08:40)
[2020-09-20] MEDS: ATORVASTATIN 20 MG TABLET PO (08:40)
[2020-09-20] MEDS: EUCERIN CREAM 120 GM JAR 1 APPLIC TOPICAL (08:41)
[2020-09-20] MEDS: FUROSEMIDE INJ 40 MG/4 ML VIAL IV PUSH (08:58)
[2020-09-20] MEDS: IPRATROPIUM BR 0.02% INH SOLN 0.5 MG/2.5 ML VIAL INHALATION ×2 (09:52→14:27)
[2020-09-20] MEDS: ALBUTEROL SULFATE NEB 2.5 MG/0.5 ML INH INHALATION ×2 (09:52→14:27)
--- NOTE | 2020-09-20 10:17 | PM.IMPN ---
Progress Note: A&P Assessment and Plan (1) Pleural effusion: Code(s): J90 - Pleural effusion, not elsewhere classified Status: Acute Assessment and Plan: Patient presents with worsening shortness of breath. Chest XR and CTA chest demonstrated a very large right pleural effusion in the middle and right lower lobe. Underwent a US-guided thoracentesis 09/10 which yielded 1L clear yellow fluid; pH 7.38. Suspect CHF is the most likely cause and chemistries on effusion are c/w CHF (2) CHF (congestive heart failure): Qualifiers: Heart failure type: combined systolic and diastolic Heart failure chronicity: acute on chronic Qualified Code(s): I50.43 - Acute on chronic combined systolic (congestive) and diastolic (congestive) heart failure Code(s): I50.9 - Heart failure, unspecified Status: Acute Assessment and Plan: Known EF 35-40% in May 2020, repeat echocardiogram now demonstrates further decline EF 20-25% (55% on Lexiscan). Appreciate cardiology input. Lexiscan with evidence of ischemia. Consideration of coronary disease, will benefit from cardiac cath eventually once renal function improves. Cardiology has initiated statin therapy, hydralazine, Imdur. off dobutamine Awaiting Life Vest (cardiology ordered) (3) Acute on chronic renal failure: Qualifiers: Acute renal failure type: unspecified Chronic kidney disease stage: unspecified stage Qualified Code(s): N17.9 - Acute kidney failure, unspecified; N18.9 - Chronic kidney disease, unspecified Code(s): N17.9 - Acute kidney failure, unspecified; N18.9 - Chronic kidney disease, unspecified Status: Acute Assessment and Plan: Cr trending up after initially treated with diuretics on arrival, also contrast exposure 09/09, worsening EF. Diuretics held. Monitor renal function and electrolytes daily. Appreciate nephrology input. off dobutamine 09/20 creatinine 3.7 (4) COPD (chronic obstructive pulmonary disease): Qualifiers: COPD type: unspecified COPD Qualified Code(s): J44.9 - Chronic obstructive pulmonary disease, unspecified Code(s): J44.9 - Chronic obstructive pulmonary disease, unspecified Status: Chronic Assessment and Plan: With prominent centrilobular emphysema noted on imaging. Continue bronchodilator therapy with duo nebs. Appreciate pulmonology input. See Dr Magaña's progress note for plan of discharge medications. Plan for home oxygen evaluation day of discharge and Apnea Link to assess nocturnal O2 needs on the evening prior to discharge. (5) Hypertension: Qualifiers: Hypertension type: essential hypertension Qualified Code(s): I10 - Essential (primary) hypertension Code(s): I10 - Essential (primary) hypertension Status: Chronic Assessment and Plan: Blood pressures reviewed and are variable. Cardiology added hydralazine. Lisinopril and diuretics held. Monitor BP and adjust treatment as needed. Pt is transferred to [facility] now on dobutamine (6) PVD (peripheral vascular disease): Code(s): I73.9 - Peripheral vascular disease, unspecified Status: Chronic Assessment and Plan: With history of multiple vascular procedures last with lower extremity stent placement October 2019. Follows with Dr. Carrillo. (7) Anemia: Qualifiers: Anemia type: unspecified type Qualified Code(s): D64.9 - Anemia, unspecified Code(s): D64.9 - Anemia, unspecified Status: Resolved Assessment and Plan: History of severe anemia during her recent hospitalization with GI bleeding. H&H fluctuating. No evidence of acute bleeding. Monitor CBC.
--- NOTE | 2020-09-20 11:04 | P.PNNP_ITS ---
Progress Note: A&P Assessment and Plan (1) REGINA (acute kidney injury): Code(s): N17.9 - Acute kidney failure, unspecified Status: Acute Assessment and Plan: * Acute kidney injury. * She had contrast this admission ruling out pulmonary embolism. A subsequent CT show persistent nephrograms. So this is likely contrast nephropathy. * She also has a low ejection fraction (25%) and a positive Lexiscan which would give her chronic pre renal azotemia. * Her creatinine has started to improve a little bit. * Her creatinine is down to 3.7. (2) Stage 3b chronic kidney disease: Code(s): N18.32 - Chronic kidney disease, stage 3b Status: Chronic Assessment and Plan: * creatinine has fluctuated to extremes but seems run around 1.4 - 1.9mg/dl in last year or so * presumably due to HTN, vascular disease, CHF/cardiomyopathy and age (3) Hyperkalemia: Code(s): E87.5 - Hyperkalemia Status: Acute Assessment and Plan: * due to #1 and previous LILLIAN-I + spironolactone use * She also was on spironolactone because of her very poor ejection fraction. Hopefully the loop diuretic will balance the spironolactone and keep her from developing hyperkalemia again. * Potassium stable. Will check daily while here (4) Pleural effusion: Code(s): J90 - Pleural effusion, not elsewhere classified Status: Acute Assessment and Plan: * s/p thoracentesis * Pulmonary following * pleural fluid testing indicative of transudative effusion (5) Cardiomyopathy: Code(s): I42.9 - Cardiomyopathy, unspecified Status: Chronic Assessment and Plan: * worsened by recent Echo (down to 20 - 25%) -- EF better on stress test? * likely contributing to #1 * Cardiology following * Follow creatinine as we diurese (6) Hypertension: Qualifiers: Hypertension type: essential hypertension Qualified Code(s): I10 - Essential (primary) hypertension Code(s): I10 - Essential (primary) hypertension Status: Chronic Assessment and Plan: * elevated at this time * follow hemodynamics * BP medication changes as noted by Cardiology Subjective Date/time seen: 09/20/20 11:04 Interval history: Patient is alert. Sitting at the side of the bed. Awaiting life vest. No chest pain or shortness of breath Exam Narrative: Exam Narrative: General: Elderly AA female in NAD Heart: normal S1 and S2; no rub Lungs: Rare crackles Abdomen: soft, nontender, nondistended, positive bowel sounds Extremities: no cyanosis or clubbing; trace edema Skin: No rash or subcu nodules Objective Data Vital Signs Vital Signs: Vital Signs - 24 hr 09/19/20 11:29 09/19/20 12:00 09/19/20 14:00 Temperature 36.4 C L Pulse Rate 85 69 78 Respiratory Rate 18 Blood Pressure 149/65 H Pulse Oximetry 96 09/19/20 14:56 09/19/20 15:04 09/19/20 16:00 Temperature 36.4 C Pulse Rate 84 80 85 Respiratory Rate 20 20 20 Blood Pressure 162/73 H Pulse Oximetry 92 09/19/20 18:00 09/19/20 20:00 09/19/20 20:28 Temperature 36.6 C Pulse Rate 80 86 77 Respiratory Rate 12 20 Blood Pressure 143/59 H Pulse Oximetry 92 09/19/20 20:36 09/19/20 22:00 09/20/20 00:00 Wilsey
--- NOTE | 2020-09-20 11:04 | PM.PNNEP ---
Progress Note: A&P Assessment and Plan (1) REGINA (acute kidney injury): Code(s): N17.9 - Acute kidney failure, unspecified Status: Acute Assessment and Plan: Acute kidney injury. She had contrast this admission ruling out pulmonary embolism. A subsequent CT show persistent nephrograms. So this is likely contrast nephropathy. She also has a low ejection fraction (25%) and a positive Lexiscan which would give her chronic pre renal azotemia. Her creatinine has started to improve a little bit. Her creatinine is down to 3.7. (2) Stage 3b chronic kidney disease: Code(s): N18.32 - Chronic kidney disease, stage 3b Status: Chronic Assessment and Plan: creatinine has fluctuated to extremes but seems run around 1.4 - 1.9mg/dl in last year or so presumably due to HTN, vascular disease, CHF/cardiomyopathy and age (3) Hyperkalemia: Code(s): E87.5 - Hyperkalemia Status: Acute Assessment and Plan: due to #1 and previous LILLIAN-I + spironolactone use She also was on spironolactone because of her very poor ejection fraction. Hopefully the loop diuretic will balance the spironolactone and keep her from developing hyperkalemia again. Potassium stable. Will check daily while here (4) Pleural effusion: Code(s): J90 - Pleural effusion, not elsewhere classified Status: Acute Assessment and Plan: s/p thoracentesis Pulmonary following pleural fluid testing indicative of transudative effusion (5) Cardiomyopathy: Code(s): I42.9 - Cardiomyopathy, unspecified Status: Chronic Assessment and Plan: worsened by recent Echo (down to 20 - 25%) -- EF better on stress test? likely contributing to #1 Cardiology following Follow creatinine as we gracee (6) Hypertension: Qualifiers: Hypertension type: essential hypertension Qualified Code(s): I10 - Essential (primary) hypertension Code(s): I10 - Essential (primary) hypertension Status: Chronic Assessment and Plan: elevated at this time follow hemodynamics BP medication changes as noted by Cardiology Subjective Date/time seen: 09/20/20 11:04 Interval history: Patient is alert. Sitting at the side of the bed. Awaiting life vest. No chest pain or shortness of breath Exam Narrative: Exam Narrative: General: Elderly AA female in NAD Heart: normal S1 and S2; no rub Lungs: Rare crackles Abdomen: soft, nontender, nondistended, positive bowel sounds Extremities: no cyanosis or clubbing; trace edema Skin: No rash or subcu nodules Objective Data Vital Signs Vital Signs: Vital Signs - 24 hr 09/19/20 11:29 09/19/20 12:00 09/19/20 14:00 Temperature 36.4 C L Pulse Rate 85 69 78 Respiratory Rate 18 Blood Pressure 149/65 H Pulse Oximetry 96 09/19/20 14:56 09/19/20 15:04 09/19/20 16:00 Temperature 36.4 C Pulse Rate 84 80 85 Respiratory Rate 20 20 20 Blood Pressure 162/73 H Pulse Oximetry 92 09/19/20 18:00 09/19/20 20:00 09/19/20 20:28 Temperature 36.6 C Pulse Rate 80 86 77 Respiratory Rate 12 20 Blood Pressure 143/59 H Pulse Oximetry 92 09/19/20 20:36 09/19/20 22:00 09/20/20 00:00 Temperature 36.3 C L Pulse Rate 81 78 85 Respiratory Rate 20 16 Blood Pressure 161/57 H Pulse Oximetry 97 09/20/20 02:00 09/20/20 04:00 09/20/20 06:00 Temperature 36.3 C L Pulse Rate 89 94 82 Respiratory Rate 14 Blood Pressure 123/84 Pulse Oximetry 97 09/20/20 08:29 09/20/20 08:39 09/20/20 09:50 Temperature 35.8 C L Pulse Rate 86 89 Respiratory Rate 20 Blood Pressure 189/74 H Pulse Oximetry 96 94 09/20/20 09:53 09/20/20 10:07 Temperature Pulse Rate 84 83 Respiratory Rate 18 18 Blood Pressure Pulse Oximetry Intake/Output Intake/Output: Intake & Output 09/17/20 09/18/20 09/19/20 09/20/20 23:59 23:59 23:59 23:59 Intake Total 1398.6 1606.8 1480 240 Output Tota
--- NOTE | 2020-09-20 11:40 | PC.NURSE ---
Called [employer]. Order is under review after Echo received at 11:15 am on Tuesday09/20/2020 showing updated EF results. Results should be ready by 13:00.
--- NOTE | 2020-09-20 11:51 | PM.PNCARD ---
Progress Note: A&P Assessment and Plan (1) CHF (congestive heart failure): Qualifiers: Heart failure type: combined systolic and diastolic Heart failure chronicity: acute on chronic Qualified Code(s): I50.43 - Acute on chronic combined systolic (congestive) and diastolic (congestive) heart failure Code(s): I50.9 - Heart failure, unspecified Status: Acute Assessment and Plan: Acute on chronic CHF. EF has further declined. Unfortunately her renal function has worsened significantly. No oxygen requirement, mild bilateral pedal edema. was HEEL BUFFER 2.5 mcg/kg/min - probably not providing much additional benefit at this point (SCR from 4.9 to 4.3 in 3 days). Nephrology agrees that maximum benefit from inotrope has probably been achieved. Dobutamine discontinued. She remains hemodynamically stable. Creatinine slightly improving. Life vest ordered. Awaiting LifeVest (2) Cardiomyopathy: Code(s): I42.9 - Cardiomyopathy, unspecified Status: Chronic Assessment and Plan: EF 20-25% by Echo (55% by [facility]). Possibly ischemic as pt has reversible ischemia by Oliva. Eventual cardiac catheterization but unable to do so presently because of her acute renal failure. In the meantime, treat for presumed CAD with aspirin, statin and metoprolol. Continue current heart failure regimen. (3) Pleural effusion: Code(s): J90 - Pleural effusion, not elsewhere classified Status: Acute Assessment and Plan: Status post thoracentesis, transudative, neg cytology. (4) CKD (chronic kidney disease): Qualifiers: Chronic kidney disease stage: stage 3 (moderate) Chronic kidney disease stage 3 subtype: stage 3b (GFR 30-44) Qualified Code(s): N18.32 - Chronic kidney disease, stage 3b Code(s): N18.9 - Chronic kidney disease, unspecified Status: Chronic Assessment and Plan: Acute renal failure, creat cont to rise. Spironolactone and lisinopril are on hold. Dr. Mckeon suspect contrast load + diuretics + decreased cardiac output as etiologies. Spoke with Dr. Mckeon regarding restarting low dose diuretics at this time - he thought it reasonable to resume low dose furosemide. DC IV furosemide since she is going home today. Furosemide 40 mg daily p.o. orally (5) Hypertension: Qualifiers: Hypertension type: essential hypertension Qualified Code(s): I10 - Essential (primary) hypertension Code(s): I10 - Essential (primary) hypertension Status: Chronic Assessment and Plan: Improving. May need to advance hydralazine (6) PVD (peripheral vascular disease): Code(s): I73.9 - Peripheral vascular disease, unspecified Status: Chronic Assessment and Plan: Followed by Dr. Carrillo. Continue anti-platelet agent. Subjective Date/time seen: 09/20/20 11:51 Interval history: Cardiology follow up for CHF Date of service 09/15/2020: Patient states she is feeling fatigued today. She states that she is unable to sleep well in the hospital. She has not been out of bed yet this morning but states that yesterday when she ambulated in her room she felt well and did not experience any shortness of breath with exertion. She denies shortness of breath at rest. She does endorse 2 pillow orthopnea. She is feeling frustrated that she is still in the hospital in wonders when she will be able to go home. Date of service 09/16/2020: Patient continues to feel fatigued. She does not have any cardiovascular complaints today including shortness of breath, chest pain, edema. She expresses that she is frustrated at the length of time she has been in the hospital and is eager to see if addition of the dobutamine will be helpful. Date of service 09/17/2020: Patient is feeling better today. She states that she is still feeling some tightness in her ankles but feels it is better today. She states that she has been up out of bed today and felt well a
--- NOTE | 2020-09-20 13:11 | PCPTNOTE ---
Pt declined PT today upon lengthy attempt to encourage pt to practice her walking since she is planning to go home later today. RN aware of pt's decline.
[2020-09-20] MEDS: FUROSEMIDE 40 MG TABLET PO (13:43)
--- NOTE | 2020-09-20 14:08 | PCOTNOTE ---
Attempted to see patient for OT, patient declined. Patient stated, I don't even know what I'm doing. GUSTAFSON offered assistance to patient to get dressed or cleaned up and ready for discharge. Patient declined all interventions. Will continue plan of care tomorrow if patient is still here.
--- NOTE | 2020-09-20 17:40 | PM.DS ---
DS: Admitting Diagnosis Admitting Diagnosis Admitting Diagnosis: Acute on chronic systolic congestive heart failure DS: Discharge Diagnosis Discharge Diagnosis (1) Pleural effusion: Code(s): J90 - Pleural effusion, not elsewhere classified Status: Acute Assessment and Plan: Patient presents with worsening shortness of breath. Chest XR and CTA chest demonstrated a very large right pleural effusion in the middle and right lower lobe. Underwent a US-guided thoracentesis 09/10 which yielded 1L clear yellow fluid; pH 7.38. Suspect CHF is the most likely cause and chemistries on effusion are c/w CHF (2) CHF (congestive heart failure): Qualifiers: Heart failure chronicity: acute on chronic Heart failure type: combined systolic and diastolic Qualified Code(s): I50.43 - Acute on chronic combined systolic (congestive) and diastolic (congestive) heart failure Code(s): I50.9 - Heart failure, unspecified Status: Acute Assessment and Plan: Known EF 35-40% in May 2020, repeat echocardiogram now demonstrates further decline EF 20-25% (55% on Lexiscan). Appreciate cardiology input. Lexiscan with evidence of ischemia. Consideration of coronary disease, will benefit from cardiac cath eventually once renal function improves. Cardiology has initiated statin therapy, hydralazine, Imdur. off dobutamine Awaiting Life Vest (cardiology ordered) (3) Acute on chronic renal failure: Qualifiers: Acute renal failure type: unspecified Chronic kidney disease stage: unspecified stage Qualified Code(s): N17.9 - Acute kidney failure, unspecified; N18.9 - Chronic kidney disease, unspecified Code(s): N17.9 - Acute kidney failure, unspecified; N18.9 - Chronic kidney disease, unspecified Status: Acute Assessment and Plan: Cr trending up after initially treated with diuretics on arrival, also contrast exposure 09/09, worsening EF. Diuretics held. Monitor renal function and electrolytes daily. Appreciate nephrology input. off dobutamine 09/20 creatinine 3.7 (4) COPD (chronic obstructive pulmonary disease): Qualifiers: COPD type: unspecified COPD Qualified Code(s): J44.9 - Chronic obstructive pulmonary disease, unspecified Code(s): J44.9 - Chronic obstructive pulmonary disease, unspecified Status: Chronic Assessment and Plan: With prominent centrilobular emphysema noted on imaging. Continue bronchodilator therapy with duo nebs. Appreciate pulmonology input. See Dr Magaña's progress note for plan of discharge medications. Plan for home oxygen evaluation day of discharge and Apnea Link to assess nocturnal O2 needs on the evening prior to discharge. (5) Hypertension: Qualifiers: Hypertension type: essential hypertension Qualified Code(s): I10 - Essential (primary) hypertension Code(s): I10 - Essential (primary) hypertension Status: Chronic Assessment and Plan: Blood pressures reviewed and are variable. Cardiology added hydralazine. Lisinopril and diuretics held. Monitor BP and adjust treatment as needed. Pt is transferred to [facility] now on dobutamine (6) PVD (peripheral vascular disease): Code(s): I73.9 - Peripheral vascular disease, unspecified Status: Chronic Assessment and Plan: With history of multiple vascular procedures last with lower extremity stent placement October 2019. Follows with Dr. Carrillo. (7) Anemia: Qualifiers: Anemia type: unspecified type Qualified Code(s): D64.9 - Anemia, unspecified Code(s): D64.9 - Anemia, unspecified Status: Resolved Assessment and Plan: History of severe anemia during her rec
--- NOTE | 2020-09-20 17:52 | PC.NURSE ---
Made multiple calls to Tejas at [employer]. Made sure all paperwork was received and being cleared by insurance. Patient is refusing to stay in the hospital and wanting to leave. Tejas said he will fit the patient with the life vest at her home. Notified Dr. Chan about the patient wanting to sign out AMA. Patient keeps leaving her room and is very anxious about going home. Spoke with patient regarding the importance of doctors advice to get a life vest and she still is refusing to stay in the hospital and called her son to come and pick her up. Son arrived in the unit to pick his mom up.
--- NOTE | 2020-09-20 18:51 | PC.NURSE ---
Spoke to patient and son about the importance of staying in the hospital while waiting for life vest. Patient stated she was not staying in the hospital and she was going home.
== END 2020-09-20 18:51 | disposition home health service (06) | DRG 291 ==
LOC: ANHED 09-10 00:20 → ANH3MEDSUR 09-10 09:01 → ANHIMU 09-22 12:49
PROVIDERS: Family Medicine; Internal Medicine Nephrology; Admitting Provider Internal Medicine; Emergency Provider Emergency Medicine; PCP Family Medicine; Visit Provider Physician Assistant
DX: I13.0 Hypertensive heart and chronic kidney disease with heart failure and stage 1 through stage 4 chronic kidney disease, or unspecified chronic kidney disease (principal); I50.43 Acute on chronic combined systolic (congestive) and diastolic (congestive) heart failure; J91.8 Pleural effusion in other conditions classified elsewhere; N17.9 Acute kidney failure, unspecified; N18.32 Chronic kidney disease, stage 3b; E87.5 Hyperkalemia; I42.9 Cardiomyopathy, unspecified; J43.2 Centrilobular emphysema; D64.9 Anemia, unspecified; I73.9 Peripheral vascular disease, unspecified; F17.210 Nicotine dependence, cigarettes, uncomplicated; Z95.828 Presence of other vascular implants and grafts; Z79.899 Other long term (current) drug therapy
CPT/HCPCS: 32555; 36415; 36600; 71045; 71046; 71275; 74019; 74176; 78452; 80048; 80053; 80069; 81001; 82042; 82150; 82465; 82805; 82945; 83615; 83735; 83880; 83986; 84157; 84311; 84478; 84484; 85014; 85018; 85025; 85027; 85055; 85380; 85610; 85730; 87015; 87070; 87075; 87086; 87102; 87116; 87205; 87206; 88104; 88108; 88305; 89051; 93005; 93017; 93306; 94640; 97110; 97116; 97161; 97165; 97530; 97535; 99285; A9270; A9502; J0360; J1250; J1940; J2270; J2405; J2785; J7040; Q9967

== ENCOUNTER 2021-01-09 12:47 | Inpatient (IN) | payer MEDICARE, BC, SELFPAY ==
[2021-01-09] VITALS (37 sets, daily range): BP systolic 168–212; BP diastolic 66–113; PULSE 78–96; RESP 18–26; TEMP 36.4; O2SAT 86–100; BMI 23.7
--- NOTE | ~2021-01-09 | XR_ITS ---
XR chest 1V portable DATE: 01/14/2021 12:10 INDICATION: Shortness of breath, pleural effusion TECHNIQUE: Portable supine AP view on 01/14/2021 at 1200 hours COMPARISON: 01/10/2021 postthoracentesis AP chest 01/09/2021 2 view chest FINDINGS: Moderately large right pleural effusion has reaccumulated since 01/10/2021 thoracentesis pro cedure. There is associated infiltrate/atelectasis in the right mid to lower lung. No pneumothorax is detected. There is cardiomegaly, pulmonary vascular congestion. There is pulmonary interstitial prominence incl uding Gregory B-lines suggesting pulmonary interstitial edema. No left pleural effusion is noted. There is extensive thoracic aortic calcification. Diffuse osteopenia. IMPRESSION: Moderately large right pleural effusion; no pneumothorax Cardiac megaly, congestive changes Aortic calcification Reviewed, dictated and finalized at location A.
--- NOTE | ~2021-01-09 | US_ITS ---
EXAMINATION: US thoracentesis DATE: 01/10/2021 15:42 INDICATION: Right pleural effusion TECHNIQUE: The procedure and its risks and benefits were discussed with the patient. Potential risks discussed included bleeding, infection, and pneumothorax. The patient understood the risks and agreed to proceed. The skin was prepared and draped in sterile fashion. 1% lidocaine was used for local ane sthesia. Under ultrasound guidance, a 5 Fr catheter with trochar was advanced into the right pleural effusion. Fluid was aspirated. The catheter was removed, and a dressing was applied. There were no im mediate complications. FINDINGS: Ultrasound images demonstrate a right pleural effusion and the catheter within the fluid. IMPRESSION: 1. Successful ultrasound-guided thoracentesis yielding 1000 mL of clear yellow fluid. Reviewed, dictated and finalized at location A.
--- NOTE | ~2021-01-09 | XR_ITS ---
XR chest 2V DATE: 01/09/2021 13:21 INDICATION: Shortness of breath. History of congestive heart failure. . TECHNIQUE: PA and lateral views COMPARISON: 09/11/2020 portable upright AP chest FINDINGS: There is opacification of the lower half of the right hemithorax, likely due to a combinati on of large right pleural effusion and compressive atelectasis. There is cardiomegaly. There is mild pulmonary vascular congestion. There is extensive thoracic and a bdominal aortic calcification. The right upper and the left lung appear clear. No left pleural effusion. No pneumothorax. Surgical clips overlying the upper abdomen. There is mild levoscoliosis and degenerative spurring of the thoracic spine. Diffuse osteopenia. IMPRESSION: Cardiomegaly, mild pulmonary vascular congestion, opacification of the lower half of the right hemithorax, likely due in large part to right pleural effusion, with associated compressive ate lectasis. Findings are consistent with congestive heart failure. The right-sided pneumonia or obstruc ting right endobronchial lesion are not excluded. Reviewed, dictated and finalized at location B. IMPRESSION: Cardiomegaly, mild pulmonary vascular congestion, opacification of the lower half of the right hemithorax, likely due in large part to right pleur al effusion, with associated compressive atelectasis. Findings are consistent w ith congestive heart failure. The right-sided pneumonia or obstructing right en dobronchial lesion are not excluded.
--- NOTE | ~2021-01-09 | XR_ITS ---
EXAMINATION: [id number] INDICATION: Right pleural effusion post thoracentesis TECHNIQUE: AP chest at 1532 hours COMPARISON: 01/09/2021 FINDINGS: There is interval decrease in size of a now small right pleural effusion postthoracentesis. No pneumothorax is identified. Cardiomegaly is noted. There are minimal opacities of the right lung base, likely atelectasis. Epigastric surgical clips are noted. IMPRESSION: 1. Interval decrease in size of now small right pleural effusion postthoracentesis. No pneumothorax. 2. Cardiomegaly. Reviewed, dictated and finalized at location A. IMPRESSION: 1. Interval decrease in size of now small right pleural effusion postthoracente sis. No pneumothorax. 2. Cardiomegaly.
--- NOTE | ~2021-01-09 | US_ITS ---
EXAMINATION: US venous doppler [facility] DATE: 01/10/2021 14:34 INDICATION: Bilateral lower limb edema TECHNIQUE: Cohen scale images without and with compression and Doppler images of the bilateral lower e xtremity veins were obtained. COMPARISON: 05/11/2020 FINDINGS: There is moderate bilateral lower limb edema. The right common femoral vein, profunda femoral vein, femoral vein, popliteal vein, peroneal trunk, p osterior tibial veins, and greater saphenous vein are patent. The left common femoral vein, profunda femoral vein, femoral vein, popliteal vein, peroneal trunk, po sterior tibial veins, and greater saphenous vein are patent. IMPRESSION: 1. Patent bilateral lower extremity veins. No evidence of deep venous thrombosis. Reviewed, dictated and finalized at location A. IMPRESSION: 1. Patent bilateral lower extremity veins. No evidence of deep venous thrombosi s.
--- NOTE | 2021-01-09 12:49 | ECG_ITS ---
Measurements Intervals [place] Rate: 90 P: 50 GA: 131 QRS: 116 QRSD: 91 T: 0 QT: 351 QTc: 430 Interpretive Statements SINUS RHYTHM VENTRICULAR PREMATURE COMPLEXES RIGHT AXIS DEVIATION POSSIBLE LEFT ATRIAL ENLARGEMENT INCOMPLETE RIGHT BUNDLE BRANCH BLOCK BORDERLINE T WAVE ABNORMALITY- ANT/INF LEADS BORDERLINE ECG Electronically Signed On 01-09-2021 13:04:11 CDT by Gael Steward D.O.
[2021-01-09 13:22] LABS: Basophils Percent Auto 0.7 % (0.2-1.2); Eosinophils Absolute Auto 0.2 K/mm3 (0-0.3); Eosinophils Percent Auto 2.5 % (0-4.4); Hematocrit 33.7 % (37.0-47.0); Hemoglobin 10.4 g/dL (12.0-15.0); Immature Granulocyte Absolute 0.05 K/mm3 (0.00-0.031); Immature Granulocyte Percent A 0.8 % (0-0.5); Lymphocytes Absolute Auto 0.42 K/mm3 (0.9-3.2); Mean Corpuscular HGB Conc 30.9 g/dl (32-36); Mean Corpuscular Volume 84.3 fl (80-100); Mean Platelet Volume 9.4 fl (7.4-10.4); Monocytes Absolute Auto 0.4 K/mm3 (0.1-0.6); Monocytes Percent Auto 6.9 % (2.6-8.5); Neutrophils Absolute Auto 4.9 K/mm3 (1.3-6.7); Neutrophils Percent Auto 82.1 % (45.5-73.1); Nucleated Red Blood Cells Perc 0.3 % (0.0-0.2); Platelet Count Result 237 k/mm3 (150-375); Red Cell Distribution Width 20.4 % (11.5-14.5)
[2021-01-09 13:30] LABS: Anion Gap 8 mmol/L (8-16); Blood Urea Nitrogen 30 mg/dL (7-17); Calcium 8.4 mg/dL (8.4-10.2); Carbon Dioxide 21 mmol/L (22-30); Chloride 112 mmol/L (98-107); Estimated CRCL calculation 19 ml/min; Estimated Glomerular Filt Rate 33; Glucose 131 mg/dL (65-110); Potassium 4.6 mmol/L (3.4-5.0); Sodium 141 mmol/L (137-145)
[2021-01-09 13:31] LABS: Prothrombin Time 13.2 Seconds (11.1-14.7)
--- NOTE | 2021-01-09 13:37 | ED.SOB ---
HPI - SOB/Dyspnea General Chief Complaint: Shortness of Breath/Dyspnea Stated Complaint: SHORT OF BREATH, HX CHF Time Seen by Provider: 01/09/21 13:34 Source: patient Mode of arrival: ambulatory Limitations: no limitations History of Present Illness HPI Narrative: Patient is a 75-year-old female who presents for evaluation of shortness of breath. Patient with a history of hypertension, congestive heart failure, estimated ejection fraction 35%, COPD. Patient states she has been feeling unwell over the past 72 hours with increasing shortness of breath. Patient denies any productive cough. No fever, chills, chest pain. Patient states that she has felt short of breath at rest and with exertion. She feels short of breath when she lays flat. She reports chronic bilateral lower extremity swelling which does not seem to improve with her medications. She denies any leg pain or calf pain. No redness or sores. No rash. She has been compliant with her medications. She does state that she often eats salty foods and this does seem to exacerbate her symptoms. Related Data Home Medications Medication Instructions Recorded Confirmed aspirin 81 mg PO DAILY 05/10/20 09/10/20 zolpidem 5 mg PO HS PRN 05/10/20 09/10/20 ferrous sulfate 325 mg PO BID 09/10/20 09/10/20 loratadine [Claritin] 10 mg PO DAILY PRN 09/10/20 09/10/20 Allergies Allergy/AdvReac Type Severity Reaction Status Date / Time Penicillins Allergy Unknown Unknown Verified 01/09/21 14:40 Review of Systems Review of Systems: CONSTITUTIONAL: Denies fever, chills, or sweats. EYES: Denies visual changes, redness, or discharge. ENT: Denies rhinorrhea, congestion, sore throat, or otalgia. CARDIOVASCULAR: Denies chest pain, palpitations, reports bilateral lower extremity edema RESPIRATORY: Denies cough, reports shortness of breath GASTROINTESTINAL: Denies abdominal pain, nausea, vomiting, or diarrhea. GENITOURINARY: Denies dysuria or hematuria. SKIN: Denies rash or itching. MUSCULOSKELETAL: Denies back pain, joint pain, or myalgia. NEUROLOGIC: Denies headache, numbness, or weakness. [facility] Past Medical History Medical History Acute kidney injury Acute on chronic renal failure Cardiomyopathy CHF (congestive heart failure) 35-40% ef Hypertension Pleural effusion PVD (peripheral vascular disease) Severe anemia Surgical History Surgical History H/O endovascular stent graft for abdominal aortic aneurysm Hx of aorto-femoral bypass Family History Family History Other Unknown family medical history Social History Social History Social History: Patient is . She lives with her son. 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 She occasionally drinks a beer. Her son is a durable power traffic law attorney and she is a full code. She does use any marijuana or illicit drugs. She does still continues to smoke about 5 or 6 cigarettes a day and she smoked for over 60 years. Smoking packs per day: 0.5 Smoking cigarettes per day: 10.0 Years smoked: 60 Smoking pack-years: 30.00 Smoking status: Never smoker Tobacco type: cigarettes Second hand tobacco smoke exposure: No Alcohol intake: never Drinks per week: 2 Substance use: never Substance use type: does not use Gender identity (if verbalized by the patient): Female Sexual Orientation (if Verbalized by the Patient): Straight or Heterosexual Spiritual care concerns: No Exam Narrative: GENERAL: Awake, alert, conversant HEAD: Normocephalic, atraumatic. EYES: PERRLA and EOMI. ENT: Nares clear, no rhinorrhea or epistaxis. Mucous membranes moist. NECK: Supple. CHEST: Mild tachypnea at the time of assessment, crackles in the bilateral lung fie
[2021-01-09 14:07] LABS: NT Pro B Type Natriuretic Pept 31300 pg/mL (5-100); Troponin I 0.042 ng/mL (0.000-0.034)
--- NOTE | 2021-01-09 14:30 | PM.IMHP ---
H&P: HPI History of Present Illness Date/Time: 01/09/21 14:30 Chief Complaint: Shortness of breath. Narrative: This is a very pleasant 75-year-old female with combined systolic and diastolic congestive heart failure with an ejection fraction of 20 to 25% on echocardiogram on 09/10/2020, presumed ischemic cardiomyopathy with a moderate sized moderate severity reversible defect and a small mild nonreversible infarct on Lexiscan stress on 09/12/2020, peripheral vascular disease status post aorto bi-iliac bypass graft with history of lower extremity stents, chronic kidney disease stage 3, hypertension, and emphysema who presented to the emergency department earlier today from Dr. Trejo's office for evaluation of shortness of breath. She is known to the hospitalist service with her last admission in September 2020 at which time she was admitted for CHF exacerbation with recurrent transudative right-sided pleural effusion. She was initially diuresed however furosemide was held after only a few doses due to a marked increase in her creatinine level. Ultimately she was on a dobutamine drip for several days with only mild improvement in her renal function though it has since returned to baseline. Repeat echocardiogram at that time showed a further decline in her ejection fraction from 35-40% to 20-25% and she was set up for a Life Vest though she only wore it for a month as it was causing irritation to her skin. It is my understanding that she has not followed up with [facility] since discharge. In any event, she reports increasing dyspnea on lesser and lesser exertion over the past several weeks in addition to marked edema up to the thighs. She has also had a mild non productive cough. Today she had an appoint with Dr. Trejo for evaluation of the above complaints and was referred to the emergency department where she was found to have recurrent right-sided pleural effusion as well as pulmonary vascular congestion on chest x-ray and she is being admitted in this setting. She denies fever, chills, sweats, sinus congestion, rhinorrhea, otalgia, odynophagia, chest pain, pleuritic pain, palpitations, orthopnea, PND, nausea, and vomiting. Review of Systems Review of Systems: Twelve systems were reviewed with pertinent positives and negatives as per HPI. She has had some mild lightheadedness the past couple of days but no syncope or near syncope. She denies sick contacts and exposure to COVID-19. Appetite has been good. No history of venous thromboembolism. She has not noticed a change in urine output. Reports compliance with her home medication. Except as documented, all other systems were reviewed and are negative. [facility] Past Medical History Medical History (Updated 01/09/21 @ 19:38 by Glenny Zamorano PA-C) Cardiomyopathy Presumed ischemic with moderately sized moderately severe reversible defect and small mild non reversible infarct on Lexiscan stress on 09/12/2020. Chronic anemia History of blood transfusion. Chronic kidney disease, stage 3b Baseline creatinine ranges between 1.4 and 1.90. Combined systolic and diastolic congestive heart failure Echocardiogram on 09/10/2020 showed severely reduced LV systolic function with an estimated EF of 20 to 25%, grade 1 diastolic dysfunction, reduced RV systolic function, and mild pulmonary hypertension with an estimated pulmonary arterial systolic pressure of 44 mmHg. COPD with emphysema Hypertension Peripheral arterial disease Severe anemia Surgical History Surgical History (Updated 01/09/21 @ 18:56 by Glenny Zamorano PA-C) History of colonoscopy History of colon polyps, internal hemorrhoids, and diverticulosis. History of esophagogastroduodenoscopy History of gastric erosions, gastric polyps, and duodenal AVMs. History of revascularization procedure of lower extremity (10/2019) Bilateral lower extremity stents per Dr. Carrillo. History of vascular surgery (06/12/13) Aorto bi-iliac bypass graft per Dr. Carrillo.
[2021-01-09] MEDS: FUROSEMIDE INJ 40 MG/4 ML VIAL IV PUSH (16:05)
--- NOTE | 2021-01-09 20:50 | ADMIMU ---
This patient, Alina Allen, was admitted to IMU status, and placed in Intensive Care Unit-8. Patient/family oriented to hospital policies and general routines including ID bracelet, bed and alarms, visiting hours, pain management, procedures, bathroom and other care routines, personal items, smoking policy, room service/diet, and visiting hours. Valuables list has been completed. Information on how to activate the Rapid Response Team has been discussed. Patient/Family are encouraged to report perceived risks to care and to ask questions if they do not understand what they are told or what they should do.
[2021-01-09 23:54] LABS: Troponin I 0.046 ng/mL (0.000-0.034)
[2021-01-10] VITALS (12 sets, daily range): BP systolic 128–197; BP diastolic 51–80; PULSE 72–95; RESP 16–22; TEMP 35.7–36.6; O2SAT 92–100
--- NOTE | 2021-01-10 02:44 | ECG_ITS ---
Measurements Intervals [place] Rate: 81 P: 28 TX: 134 QRS: 62 QRSD: 85 T: 81 QT: 377 QTc: 440 Interpretive Statements SINUS RHYTHM POSSIBLE LEFT ATRIAL ENLARGEMENT ANTEROSEPTAL INFARCT, AGE INDETERMINATE BORDERLINE T WAVE ABNORMALITY- INF/LAT LEADS ABNORMAL ECG Electronically Signed On 01-10-2021 8:42:30 CDT by Gael Steward D.O.
--- NOTE | 2021-01-10 06:08 | PM.CNCAR ---
Assessment and Plan Assessment and plan (1) Combined systolic and diastolic congestive heart failure: Code(s): I50.40 - Unspecified combined systolic (congestive) and diastolic (congestive) heart failure Status: Acute Assessment and Plan: Recurrent CHF; unclear of etiology of recurrence although patient is noncompliant with sodium restriction. States she is compliant with her medications. Overall her chest x-ray looks not as bad as on her previous admission. Furosemide 40 mg IV push b.i.d. Daily BMPs If the patient's renal function declines, as it did last time (after IV contrast) then we will add dobutamine Good blood pressure control is needed as well. Increase hydralazine Encouraged dietary compliance (2) Recurrent right pleural effusion: Code(s): J90 - Pleural effusion, not elsewhere classified Status: Acute Assessment and Plan: Unable to completely eradicate this right pleural effusion; had thoracentesis in May and again in September. Another thoracentesis has been ordered (3) Cardiomyopathy: Code(s): I42.9 - Cardiomyopathy, unspecified Status: Chronic Assessment and Plan: EF 40-46%, improved compared to Phyllis. Probably partly hypertensive cardiomyopathy and perhaps an ischemic cardiomyopathy says she has fixed and reversible defects on her Lexiscan. No angina Have not been able to proceed with cardiac catheterization because of chronic kidney disease and concerns of acute renal failure Continue to treat presumed CAD medically with aspirin and statin therapy. (4) Hypertension: Qualifiers: Hypertension type: essential hypertension Qualified Code(s): I10 - Essential (primary) hypertension Code(s): I10 - Essential (primary) hypertension Status: Chronic Assessment and Plan: Uncontrolled hypertension Increase hydralazine to 50 mg q.8 hours and titrate as blood pressure tolerates (5) Chronic kidney disease, stage 3b: Code(s): N18.32 - Chronic kidney disease, stage 3b Status: Acute Assessment and Plan: CKD stage IIIB Check BMP daily History of Present Illness History of Present Illness Consult date/time: 01/10/21 06:08 Requesting physician: Glenny Zamorano, PAGermaineC Consult reason: congestive heart failure Reason For Visit: CHF exacerbation Narrative: Alina Allen is a 75-year-old female who was admitted through the emergency room with congestive heart failure, for which we were asked for our advice and opinion by the hospitalists, in consultation. Ms. Tiffany was admitted in in May for CHF, severe anemia (Hb 4.5, AVMs cauterized) and CKD; she required thoracentesis for a right pleural effusion. She was again admitted in September for heart failure, and CKD. Her EF had dropped from 40% in May 2020 down to 25%. She had a thoracentesis of her right sided transudative effusion. She had ARF due to IV diuretics, poor cardiac output and IV contrast. She on dobutamine for a few days. A LifeVest placed but later the pt discontinued it as it was uncomfortable. She followed up once in our office in October, and did obtain and repeat echocardiogram in December showing her EF had improved to 40-46% (results below). She canceled her follow-up appointment and declined to reschedule. The patient was sent to the emergency room yesterday by Dr. Trejo with shortness of breath for 2-3 weeks, and mild orthopnea as well as worsening of her chronic lower extremity edema. She states that she has been compliant with medications but not low-sodium diet; she states she does not use excessive salt. No chest pain, pressure or tightness. Occasional lightheadedness while standing. She states she is compliant with her medications. She states she was told that she would only be here for a couple of days and she is not going to go through which she did in September with a lengthy hospital stay.
[2021-01-10 06:46] LABS: Hematocrit 29.9 % (37.0-47.0); Hemoglobin 9.5 g/dL (12.0-15.0); Mean Corpuscular HGB Conc 31.8 g/dl (32-36); Mean Corpuscular Hemoglobin 26.2 pg (26-34); Mean Corpuscular Volume 82.4 fl (80-100); Mean Platelet Volume 9.4 fl (7.4-10.4); Platelet Count Result 197 k/mm3 (150-375); Red Blood Count 3.63 M/mm3 (4.2-5.4); White Blood Count 6.8 K/mm3 (4.5-10.0)
[2021-01-10 07:03] LABS: Alanine Aminotransferase 14 U/L (4-35); Albumin Level 2.9 g/dL (3.5-5.1); Alkaline Phosphatase 95 U/L (38-126); Anion Gap 6 mmol/L (8-16); Aspartate Amino Transferase 25 U/L (14-36); Bilirubin,Total 0.3 mg/dL (0.2-1.3); Blood Urea Nitrogen 30 mg/dL (7-17); Calcium 8.1 mg/dL (8.4-10.2); Carbon Dioxide 23 mmol/L (22-30); Chloride 112 mmol/L (98-107); Estimated CRCL calculation 18 ml/min; Estimated Glomerular Filt Rate 33; Glucose 97 mg/dL (65-110); Phosphorus 5.5 mg/dL (2.5-4.5); Sodium 141 mmol/L (137-145)
[2021-01-10] MEDS: hydrALAZINE HCL 25 MG TABLET PO (08:11)
[2021-01-10] MEDS: FERROUS SULFATE 324 MG TABLET PO ×2 (08:11→17:15)
[2021-01-10] MEDS: ISOSORBIDE MONONITRATE 30 MG TAB.ER.24H PO (08:12)
[2021-01-10] MEDS: METOPROLOL SUCCINATE EXT REL 25 MG TABCR PO (08:12)
[2021-01-10] MEDS: ATORVASTATIN 20 MG TABLET PO (08:12)
[2021-01-10] MEDS: lisinopriL 20 MG TABLET PO (08:12)
[2021-01-10] MEDS: DOCUSATE SODIUM 100 MG CAPSULE PO (08:12)
[2021-01-10] MEDS: LORATADINE 10 MG TABLET PO (08:12)
[2021-01-10] MEDS: FUROSEMIDE INJ 40 MG/4 ML VIAL IV PUSH ×2 (08:13→17:15)
--- NOTE | 2021-01-10 11:28 | PC.NURSE ---
Patient transferred to [facility], report given and all belongings sent with patient
--- NOTE | 2021-01-10 13:42 | PM.IMPN ---
Progress Note: A&P Assessment and Plan (1) Acute exacerbation of congestive heart failure: Code(s): I50.9 - Heart failure, unspecified Status: Acute Assessment and Plan: Acute combined systolic and diastolic heart failure, patient's EF is 20-25% on echocardiogram done in September 2020. -continue Lasix 40 mg IV q.12 hours while monitoring renal function. As patient did have marked increase in creatinine with IV diuresis during her hospitalization in September 2020 ultimately requiring dobutamine for couple of days. -appreciate cardiology evaluation recommendation -control blood pressures -encouraged low-salt diet (2) Recurrent right pleural effusion: Code(s): J90 - Pleural effusion, not elsewhere classified Status: Acute Assessment and Plan: Previous effusions have been transudative, likely due to CHF. Therapeutic thoracentesis scheduled for today on 01/10/2021 (3) Chronic kidney disease, stage 3b: Code(s): N18.32 - Chronic kidney disease, stage 3b Status: Acute Assessment and Plan: Creatinine is back at baseline with creatinine of 1.80 today. Monitor closely while diuresing. -patient currently on diuresis, negative fluid balance since admission as she is diuresing well -monitor renal function closely (4) Chronic anemia: Code(s): D64.9 - Anemia, unspecified Status: Acute Assessment and Plan: Hemoglobin and hematocrit are stable on review of previous labs. (5) Hypertension: Qualifiers: Hypertension type: essential hypertension Qualified Code(s): I10 - Essential (primary) hypertension Code(s): I10 - Essential (primary) hypertension Status: Chronic Assessment and Plan: Blood pressures are not well controlled, as high as 212/84 in the emergency department. She did not take her medications yet today, however. Resume antihypertensives and monitor closely. (6) Cardiomyopathy: Code(s): I42.9 - Cardiomyopathy, unspecified Status: Chronic Assessment and Plan: Presumed ischemic cardiomyopathy with an EF of 20 to 25% on echo in September 2020. Patient stopped wearing her LifeVest after about a month due to skin irritation and back discomfort. -troponins are flat -significant elevation in BNP -to treat coronary artery disease medically -the following the patient (7) Abnormal chest x-ray: Code(s): R93.89 - Abnormal findings on diagnostic imaging of other specified body structures Status: Acute Assessment and Plan: In addition to cardiomegaly, pleural effusion, and pulmonary edema/congestion a right-sided pneumonia or obstructing right endobronchial lesion are not excluded. Her history does not suggest pneumonia, however. Follow-up chest x-ray when condition improves or even chest CT may be prudent for further evaluation. Additional Plan Code status: Full code This dictation may have been done utilizing a voice recognition system. Attempts have been made to correct errors. However, there may be uncorrected grammatical, spelling, and recognition errors present. Due to a high probability of clinically significant, life threatening deterioration, the patient required my highest level of preparedness to intervene emergently and I personally spent this critical care time directly and personally managing the patient. This critical care time included obtaining a history; examining the patient; pulse oximetry; ordering and review of studies; arranging urgent treatment with development of a management plan; evaluation of patient's response to treatment; frequent reassessment; and discussions with other providers. It was exclusive of separately billable procedures and treating other patients and teaching time. Please see Assessment and Plan section and the rest of the note for further information on patient assessment and treatment Subjective Date/time seen: 01/10/21 13:42 Interval history: 75-year-old
[2021-01-10] MEDS: hydrALAZINE HCL 50 MG TABLET PO (17:15)
[2021-01-10] MEDS: MELATONIN 3 MG TABLET PO (22:44)
[2021-01-11] VITALS (9 sets, daily range): BP systolic 120–160; BP diastolic 47–60; PULSE 69–82; RESP 16; TEMP 35.9–36.6; O2SAT 93–100
[2021-01-11 06:01] LABS: Anion Gap 6 mmol/L (8-16); Blood Urea Nitrogen 31 mg/dL (7-17); Calcium 7.8 mg/dL (8.4-10.2); Carbon Dioxide 21 mmol/L (22-30); Chloride 112 mmol/L (98-107); Estimated CRCL calculation 20 ml/min; Estimated Glomerular Filt Rate 38; Glucose 74 mg/dL (65-110); Potassium 4.4 mmol/L (3.4-5.0); Sodium 139 mmol/L (137-145)
[2021-01-11] MEDS: ASPIRIN 81 MG ENTERIC TABLET PO (08:15)
[2021-01-11] MEDS: hydrALAZINE HCL 50 MG TABLET PO ×3 (08:15→16:05)
[2021-01-11] MEDS: FERROUS SULFATE 324 MG TABLET PO ×2 (08:15→16:05)
[2021-01-11] MEDS: METOPROLOL SUCCINATE EXT REL 25 MG TABCR PO (08:16)
[2021-01-11] MEDS: ATORVASTATIN 20 MG TABLET PO (08:16)
[2021-01-11] MEDS: lisinopriL 20 MG TABLET PO (08:16)
[2021-01-11] MEDS: ISOSORBIDE MONONITRATE 30 MG TAB.ER.24H PO (08:16)
[2021-01-11] MEDS: ACETAMINOPHEN 325 MG TABLET 650 MG PO ×2 (08:18→22:03)
[2021-01-11] MEDS: FUROSEMIDE INJ 40 MG/4 ML VIAL IV PUSH ×2 (09:36→16:06)
[2021-01-11] MEDS: ENOXAPARIN 30 MG/0.3 ML SYRINGE SUB-Q (09:39)
--- NOTE | 2021-01-11 11:26 | PM.PNCARD ---
Progress Note: A&P Assessment and Plan (1) Combined systolic and diastolic congestive heart failure: Code(s): I50.40 - Unspecified combined systolic (congestive) and diastolic (congestive) heart failure Status: Acute Assessment and Plan: Recurrent CHF; patient is noncompliant with sodium restriction And her blood pressure is not well controlled. States she is compliant with her medications. Overall her chest x-ray looks not as bad as on her previous admission. Furosemide 40 mg IV push b.i.d. Daily BMPs Increased hydralazine Encouraged dietary compliance Improving. Likely another 1 or 2 days of IV diuretic, and on discharge may need a higher dose. (2) Recurrent right pleural effusion: Code(s): J90 - Pleural effusion, not elsewhere classified Status: Acute Assessment and Plan: Unable to completely eradicate this right pleural effusion; had thoracentesis in May, in September , and again on this admission. No evidence of malignancy. May need higher dose of furosemide on discharge. (3) Cardiomyopathy: Code(s): I42.9 - Cardiomyopathy, unspecified Status: Chronic Assessment and Plan: EF 40-46%, improved compared to September. Probably partly hypertensive cardiomyopathy and perhaps an ischemic cardiomyopathy. On Lexiscan she has fixed and reversible defects on her Lexiscan. No angina Have not been able to proceed with cardiac catheterization because of chronic kidney disease and concerns of acute renal failure Continue to treat presumed CAD medically with aspirin and statin therapy. (4) Hypertension: Qualifiers: Hypertension type: essential hypertension Qualified Code(s): I10 - Essential (primary) hypertension Code(s): I10 - Essential (primary) hypertension Status: Chronic Assessment and Plan: Uncontrolled hypertension Increased hydralazine to 50 mg q.8 hours and titrate as blood pressure tolerates (5) Chronic kidney disease, stage 3b: Code(s): N18.32 - Chronic kidney disease, stage 3b Status: Acute Assessment and Plan: CKD stage IIIB Stable despite IV diuretic Check BMP daily Subjective Date/time seen: 01/11/21 11:26 Interval history: Follow-up for acute on chronic systolic and diastolic heart failure. Recurrent pleural effusion status post thoracentesis 01/10/2021. Cardiomyopathy, presumably ischemic cardiomyopathy, EF 40-46%. Hypertension, and chronic kidney disease. Date of service 01/11/2021: I feel like I have improved a lot. Breathing and swelling are lot better. Underwent thoracentesis with removal of 1000 cc yesterday Good urine output and diuresis yesterday as well.. Review of Systems Constitutional: Constitutional: Denies difficulty sleeping and Denies fatigue Cardiovascular: Cardiovascular: Denies chest pain, Reports pedal edema, Reports leg edema and Denies palpitations Respiratory: Respiratory: Denies chest congestion, Reports dyspnea on exertion and Denies wheezing Gastrointestinal: Gastrointestinal: Denies abdominal pain Genitourinary: Genitourinary: Reports no additional female genitourinary complaints Integumentary/Breasts: Skin/Breast: Reports system reviewed and no additional complaints, except as docu Neurologic: Reports system reviewed and no additional complaints, except as documented Exam Const: General: comfortable and no acute distress HENMT: General nose exam: no epistaxis Eyes: EOM: EOMs intact bilaterally Neck: Neck: supple Resp: Effort & Inspection: normal respiratory effort Auscultation: rales ( Coarse rales about pen[facility] up bilaterally,) and diminished lung sounds ( diminished breath sounds in bases) Cardio: Rate: regular rate Rhythm: regular rhythm Heart sounds: no murmurs Skin: General skin exam: normal color Neuro: Cognition (Neuro): normal cognition Speech: normal speech Extrem: General: edema and pedal edema Other:
--- NOTE | 2021-01-11 13:54 | PM.IMPN ---
Progress Note: A&P Assessment and Plan (1) Acute exacerbation of congestive heart failure: Code(s): I50.9 - Heart failure, unspecified Status: Acute Assessment and Plan: Acute combined systolic and diastolic heart failure, patient's EF is 20-25% on echocardiogram done in September 2020. -continue Lasix 40 mg IV q.12 hours while monitoring renal function. As patient did have marked increase in creatinine with IV diuresis during her hospitalization in September 2020 ultimately requiring dobutamine for couple of days. -appreciate cardiology evaluation recommendation -control blood pressures -encouraged low-salt diet 01/11/21 13:54 01/11 Interval history: patient is 75-year-old female with history combined systolic diastolic dysfunction with ejection fraction of 20-25% presented with emergency depart with complaint of shortness of breath is found to have acute on chronic congestive heart failure patient is seen by remote medical coder and being diuresed Lasix 40 mg IV b.i.d. patient also has REGINA being monitor while diuresis, patient is feeling much better compared to when she arrived and wants to go home, patient has made substantial improvement however still needs diuresing to help with her breathing, will continue present managed will have a PT OT evaluate the patient, patient will benefit going into acute rehab, will continue to monitor and further recommendation to follow. (2) Recurrent right pleural effusion: Code(s): J90 - Pleural effusion, not elsewhere classified Status: Acute Assessment and Plan: Previous effusions have been transudative, likely due to CHF. Therapeutic thoracentesis scheduled for today on 01/10/2021 (3) Chronic kidney disease, stage 3b: Code(s): N18.32 - Chronic kidney disease, stage 3b Status: Acute Assessment and Plan: Creatinine is back at baseline with creatinine of 1.80 today. Monitor closely while diuresing. -patient currently on diuresis, negative fluid balance since admission as she is diuresing well -monitor renal function closely (4) Chronic anemia: Code(s): D64.9 - Anemia, unspecified Status: Acute Assessment and Plan: Hemoglobin and hematocrit are stable on review of previous labs. (5) Hypertension: Qualifiers: Hypertension type: essential hypertension Qualified Code(s): I10 - Essential (primary) hypertension Code(s): I10 - Essential (primary) hypertension Status: Chronic Assessment and Plan: Blood pressures are not well controlled, as high as 212/84 in the emergency department. She did not take her medications yet today, however. Resume antihypertensives and monitor closely. (6) Cardiomyopathy: Code(s): I42.9 - Cardiomyopathy, unspecified Status: Chronic Assessment and Plan: Presumed ischemic cardiomyopathy with an EF of 20 to 25% on echo in September 2020. Patient stopped wearing her LifeVest after about a month due to skin irritation and back discomfort. -troponins are flat -significant elevation in BNP -to treat coronary artery disease medically -the following the patient (7) Abnormal chest x-ray: Code(s): R93.89 - Abnormal findings on diagnostic imaging of other specified body structures Status: Acute Assessment and Plan: In addition to cardiomegaly, pleural effusion, and pulmonary edema/congestion a right-sided pneumonia or obstructing right endobronchial lesion are not excluded. Her history does not suggest pneumonia, however. Follow-up chest x-ray when condition improves or even chest CT may be prudent for further evaluation. Subjective Date/time seen: 01/11/21 13:54 01/11 Interval history:patient is 75-year-old female with history combined systolic diastolic dysfunction with ejection fraction of 20-25% presented with emergency depart with complaint of shortness of breath is found to have acute on chronic congestive hea
--- NOTE | 2021-01-11 14:35 | PCPTNOTE ---
Spent 10 minutes attempting to get pt to cooperate for PT eval without success. States she understands she needs to do it but doesn't feel she can participate right now.
[2021-01-11] MEDS: MELATONIN 3 MG TABLET PO (21:57)
[2021-01-12] VITALS (15 sets, daily range): BP systolic 137–177; BP diastolic 51–80; PULSE 63–91; RESP 16–18; TEMP 36.1–36.6; O2SAT 93–100
[2021-01-12 06:16] LABS: Albumin Level 2.8 g/dL (3.5-5.1); Anion Gap 6 mmol/L (8-16); Blood Urea Nitrogen 33 mg/dL (7-17); Calcium 7.8 mg/dL (8.4-10.2); Carbon Dioxide 24 mmol/L (22-30); Chloride 110 mmol/L (98-107); Estimated CRCL calculation 18 ml/min; Estimated Glomerular Filt Rate 33; Glucose 75 mg/dL (65-110); Magnesium 1.7 mg/dL (1.6-2.3); Phosphorus 5.1 mg/dL (2.5-4.5); Potassium 4.3 mmol/L (3.4-5.0); Sodium 140 mmol/L (137-145)
[2021-01-12] MEDS: hydrALAZINE HCL 50 MG TABLET PO ×3 (09:59→18:16)
[2021-01-12] MEDS: ASPIRIN 81 MG ENTERIC TABLET PO (09:59)
[2021-01-12] MEDS: ATORVASTATIN 20 MG TABLET PO (09:59)
[2021-01-12] MEDS: lisinopriL 20 MG TABLET PO (10:00)
[2021-01-12] MEDS: METOPROLOL SUCCINATE EXT REL 25 MG TABCR PO (10:00)
[2021-01-12] MEDS: ISOSORBIDE MONONITRATE 30 MG TAB.ER.24H PO (10:00)
[2021-01-12] MEDS: FERROUS SULFATE 324 MG TABLET PO ×2 (10:00→18:16)
[2021-01-12] MEDS: FUROSEMIDE INJ 40 MG/4 ML VIAL IV PUSH (10:00)
[2021-01-12] MEDS: ENOXAPARIN 30 MG/0.3 ML SYRINGE SUB-Q (10:01)
--- NOTE | 2021-01-12 10:38 | PM.PNCARD ---
Progress Note: A&P Assessment and Plan (1) Combined systolic and diastolic congestive heart failure: Code(s): I50.40 - Unspecified combined systolic (congestive) and diastolic (congestive) heart failure Status: Acute Assessment and Plan: Recurrent CHF; patient is noncompliant with sodium restriction And her blood pressure is not well controlled. States she is compliant with her medications. Overall her chest x-ray looks not as bad as on her previous admission. Shift from IV furosemide to 80mg p.o. b.i.d. Daily BMPs Increased hydralazine yesterday - BP better controlled Encouraged dietary compliance Improving. Diuresis for another day then perhaps discharge (2) Recurrent right pleural effusion: Code(s): J90 - Pleural effusion, not elsewhere classified Status: Acute Assessment and Plan: Unable to completely eradicate this right pleural effusion; had thoracentesis in May, in September , and again on this admission. No evidence of malignancy. May need higher dose of furosemide on discharge. (3) Cardiomyopathy: Code(s): I42.9 - Cardiomyopathy, unspecified Status: Chronic Assessment and Plan: EF 40-46%, improved compared to September. Probably partly hypertensive cardiomyopathy and perhaps an ischemic cardiomyopathy. On Lexiscan she has fixed and reversible defects. No angina Have not been able to proceed with cardiac catheterization because of chronic kidney disease and concerns of acute renal failure Continue to treat presumed CAD medically with aspirin and statin therapy. (4) Hypertension: Qualifiers: Hypertension type: essential hypertension Qualified Code(s): I10 - Essential (primary) hypertension Code(s): I10 - Essential (primary) hypertension Status: Chronic Assessment and Plan: Uncontrolled hypertension Increased hydralazine to 50 mg q.8 hours and titrate as blood pressure tolerates (5) Chronic kidney disease, stage 3b: Code(s): N18.32 - Chronic kidney disease, stage 3b Status: Acute Assessment and Plan: CKD stage IIIB Stable despite IV diuretic Check BMP daily Subjective Date/time seen: 01/12/21 10:38 Interval history: Follow-up for acute on chronic systolic and diastolic heart failure. Recurrent pleural effusion status post thoracentesis 01/10/2021. Cardiomyopathy, presumably ischemic cardiomyopathy, EF 40-46%. Hypertension, and chronic kidney disease. Date of service 01/11/2021: I feel like I have improved a lot. Breathing and swelling are lot better. Underwent thoracentesis with removal of 1000 cc yesterday Good urine output and diuresis yesterday as well.. Date of service 01/12/2021: Feeling well today. She is breathing comfortably on room air, no dyspnea on exertion. She still has some LE edema but it is mild. Review of Systems Constitutional: Constitutional: Denies difficulty sleeping, Denies fatigue and Denies weakness ENT: Denies epistaxis Cardiovascular: Cardiovascular: Denies chest pain, Reports pedal edema, Reports leg edema, Reports lightheadedness (When getting up she may get dizzy), Denies palpitations, Reports dyspnea and Reports dyspnea on exertion Respiratory: Respiratory: Denies chest congestion, Reports dyspnea, Reports dyspnea on exertion and Denies wheezing Gastrointestinal: Gastrointestinal: Denies abdominal pain, Denies hematochezia and Denies hematemesis Genitourinary: Genitourinary: Reports no additional female genitourinary complaints and Denies hematuria Musculoskeletal: Musculoskeletal: Reports no additional musculoskeletal complaints Integumentary/Breasts: Skin/Breast: Reports system reviewed and no additional complaints, except as docu and Denies rash Neurologic: Reports system reviewed and no additional complaints, except as documented and Denies weakness Psychiatric: Psychiatric: Reports no additional psychiatric complaints Endocrine
--- NOTE | 2021-01-12 14:40 | PM.IMPN ---
Progress Note: A&P Assessment and Plan (1) Acute exacerbation of congestive heart failure: Code(s): I50.9 - Heart failure, unspecified Status: Acute Assessment and Plan: Acute combined systolic and diastolic heart failure, patient's EF is 20-25% on echocardiogram done in September 2020. -continue Lasix 40 mg IV q.12 hours while monitoring renal function. As patient did have marked increase in creatinine with IV diuresis during her hospitalization in September 2020 ultimately requiring dobutamine for couple of days. -appreciate cardiology evaluation recommendation -control blood pressures -encouraged low-salt diet 01/12/21 14:40 01/11 Interval history: patient is 75-year-old female with history combined systolic diastolic dysfunction with ejection fraction of 20-25% presented with emergency depart with complaint of shortness of breath is found to have acute on chronic congestive heart failure patient is seen by database programmer analyst and being diuresed Lasix 40 mg IV b.i.d. patient also has REGINA being monitor while diuresis, patient is feeling much better compared to when she arrived and wants to go home, patient has made substantial improvement however still needs diuresing to help with her breathing, will continue present managed will have a PT OT evaluate the patient, patient will benefit going into acute rehab, will continue to monitor and further recommendation to follow. 01/12 Interval history:Patient with combined systolic diastolic dysfunction patient is being diuresed with IV Lasix 40 mg b.i.d. patient states feeling much better and wants to go home, rest with Cardiology started the patient on Lasix 80 mg p.o. b.i.d. and monitor patient overnight reassess in the morning and possibly discharge the patient home, will continue to monitor patient, will have a PT OT work with the patient further recommendation to follow. (2) Recurrent right pleural effusion: Code(s): J90 - Pleural effusion, not elsewhere classified Status: Acute Assessment and Plan: Previous effusions have been transudative, likely due to CHF. Therapeutic thoracentesis scheduled for today on 01/10/2021 (3) Chronic kidney disease, stage 3b: Code(s): N18.32 - Chronic kidney disease, stage 3b Status: Acute Assessment and Plan: Creatinine is back at baseline with creatinine of 1.80 today. Monitor closely while diuresing. -patient currently on diuresis, negative fluid balance since admission as she is diuresing well -monitor renal function closely (4) Chronic anemia: Code(s): D64.9 - Anemia, unspecified Status: Acute Assessment and Plan: Hemoglobin and hematocrit are stable on review of previous labs. (5) Hypertension: Qualifiers: Hypertension type: essential hypertension Qualified Code(s): I10 - Essential (primary) hypertension Code(s): I10 - Essential (primary) hypertension Status: Chronic Assessment and Plan: Blood pressures are not well controlled, as high as 212/84 in the emergency department. She did not take her medications yet today, however. Resume antihypertensives and monitor closely. (6) Cardiomyopathy: Code(s): I42.9 - Cardiomyopathy, unspecified Status: Chronic Assessment and Plan: Presumed ischemic cardiomyopathy with an EF of 20 to 25% on echo in September 2020. Patient stopped wearing her LifeVest after about a month due to skin irritation and back discomfort. -troponins are flat -significant elevation in BNP -to treat coronary artery disease medically -the following the patient (7) Abnormal chest x-ray: Code(s): R93.89 - Abnormal findings on diagnostic imaging of other specified body structures Status: Acute Assessment and Plan: In addition to cardiomegaly, pleural effusion, and pulmonary edema/congestion a right-sided pneumonia or obstructing right endobronchial lesion are not excluded. Her history does not
[2021-01-12] MEDS: FUROSEMIDE 80 MG TABLET PO (18:16)
[2021-01-12] MEDS: MELATONIN 3 MG TABLET PO (20:00)
[2021-01-12] MEDS: hydrALAZINE HCL 20 MG/ML VIAL 10 MG IV PUSH (20:07)
[2021-01-13] VITALS (11 sets, daily range): BP systolic 149–155; BP diastolic 46–57; PULSE 80–89; RESP 16–18; TEMP 36.4–37.1; O2SAT 92–98
[2021-01-13 05:59] LABS: Hematocrit 29.5 % (37.0-47.0); Hemoglobin 9.4 g/dL (12.0-15.0); Mean Corpuscular HGB Conc 31.9 g/dl (32-36); Mean Corpuscular Hemoglobin 25.8 pg (26-34); Mean Corpuscular Volume 80.8 fl (80-100); Mean Platelet Volume 8.4 fl (7.4-10.4); Platelet Count Result 142 k/mm3 (150-375); Red Blood Count 3.65 M/mm3 (4.2-5.4); Red Cell Distribution Width 17.3 % (11.5-14.5); White Blood Count 8.1 K/mm3 (4.5-10.0)
[2021-01-13 06:16] LABS: Albumin Level 2.8 g/dL (3.5-5.1); Anion Gap 6 mmol/L (8-16); Blood Urea Nitrogen 36 mg/dL (7-17); Carbon Dioxide 23 mmol/L (22-30); Chloride 108 mmol/L (98-107); Estimated CRCL calculation 19 ml/min; Estimated Glomerular Filt Rate 35; Glucose 85 mg/dL (65-110); Magnesium 1.6 mg/dL (1.6-2.3); Phosphorus 4.2 mg/dL (2.5-4.5); Potassium 4.1 mmol/L (3.4-5.0); Sodium 137 mmol/L (137-145)
--- NOTE | 2021-01-13 08:17 | PM.PNCARD ---
Progress Note: A&P Assessment and Plan (1) Combined systolic and diastolic congestive heart failure: Code(s): I50.40 - Unspecified combined systolic (congestive) and diastolic (congestive) heart failure Status: Acute Assessment and Plan: Recurrent CHF; patient is noncompliant with sodium restriction And her blood pressure is not well controlled. States she is compliant with her medications. Overall her chest x-ray looks not as bad as on her previous admission. Transitioned from IV to oral furosemide yesterday. Daily BMPs Increase hydralazine today - BP no ideally controlled currently Encouraged dietary compliance LE edema slightly worse today on exam. Will order LIUDMILA hose. Improving. Continue diuresis with 80 mg furosemide p.o. b.i.d. (2) Recurrent right pleural effusion: Code(s): J90 - Pleural effusion, not elsewhere classified Status: Acute Assessment and Plan: Unable to completely eradicate this right pleural effusion; had thoracentesis in May, in September , and again on this admission. No evidence of malignancy. May need higher dose of furosemide on discharge. (3) Cardiomyopathy: Code(s): I42.9 - Cardiomyopathy, unspecified Status: Chronic Assessment and Plan: EF 40-46%, improved compared to September. Probably partly hypertensive cardiomyopathy and perhaps an ischemic cardiomyopathy. On Lexiscan she has fixed and reversible defects. No angina Have not been able to proceed with cardiac catheterization because of chronic kidney disease and concerns of acute renal failure Continue to treat presumed CAD medically with aspirin and statin therapy. (4) Hypertension: Qualifiers: Hypertension type: essential hypertension Qualified Code(s): I10 - Essential (primary) hypertension Code(s): I10 - Essential (primary) hypertension Status: Chronic Assessment and Plan: Uncontrolled hypertension Increase hydralazine today to 75mg p.o. t.i.d (5) Chronic kidney disease, stage 3b: Code(s): N18.32 - Chronic kidney disease, stage 3b Status: Acute Assessment and Plan: CKD stage IIIB Stable Check BMP daily Subjective Date/time seen: 01/13/21 08:17 Interval history: Follow-up for acute on chronic systolic and diastolic heart failure. Recurrent pleural effusion status post thoracentesis 01/10/2021. Cardiomyopathy, presumably ischemic cardiomyopathy, EF 40-46%. Hypertension, and chronic kidney disease. Date of service 01/11/2021: I feel like I have improved a lot. Breathing and swelling are lot better. Underwent thoracentesis with removal of 1000 cc yesterday Good urine output and diuresis yesterday as well.. Date of service 01/12/2021: Feeling well today. She is breathing comfortably on room air, no dyspnea on exertion. She still has some LE edema but it is mild. Date of service 01/13/2021: Patient is not feeling very well this morning. She states that she thinks she ate something bad yesterday and has had abdominal pain all night. Not had any nausea or vomiting. Still making good urine. No shortness of breath, chest pain. She is very eager to go home but I told her that ideally I would like to keep her another day for diuresis. Review of Systems Constitutional: Constitutional: Denies difficulty sleeping, Denies fatigue and Denies weakness ENT: Denies epistaxis Cardiovascular: Cardiovascular: Denies chest pain, Reports pedal edema, Reports leg edema, Reports lightheadedness (When getting up she may get dizzy), Denies palpitations, Reports dyspnea and Reports dyspnea on exertion Respiratory: Respiratory: Denies chest congestion, Reports dyspnea, Reports dyspnea on exertion and Denies wheezing Gastrointestinal: Gastrointestinal: Denies abdominal pain, Denies hematochezia and Denies hematemesis Genitourinary: Genitourinary: Reports no additional female genitourinary complaints and Denies hematu
[2021-01-13] MEDS: hydrALAZINE HCL 25 MG TABLET 75 MG PO ×3 (09:48→19:11)
[2021-01-13] MEDS: FUROSEMIDE 80 MG TABLET PO ×2 (09:48→19:12)
[2021-01-13] MEDS: ISOSORBIDE MONONITRATE 30 MG TAB.ER.24H PO (09:49)
[2021-01-13] MEDS: FERROUS SULFATE 324 MG TABLET PO ×2 (09:49→19:11)
[2021-01-13] MEDS: ATORVASTATIN 20 MG TABLET PO (09:49)
[2021-01-13] MEDS: ENOXAPARIN 30 MG/0.3 ML SYRINGE SUB-Q (09:49)
[2021-01-13] MEDS: lisinopriL 20 MG TABLET PO (09:49)
[2021-01-13] MEDS: METOPROLOL SUCCINATE EXT REL 25 MG TABCR PO (09:49)
[2021-01-13] MEDS: ASPIRIN 81 MG ENTERIC TABLET PO (09:49)
--- NOTE | 2021-01-13 11:12 | PCPTNOTE ---
Attempted to see this patient 10/5 a.m. - pt stated that she wasn't up to doing PT. She is not feeling well this morning, thinks she ate something last night that isn't agreeing with her. Will try again later - either this pm or tomorrow.
--- NOTE | 2021-01-13 13:15 | PCPTNOTE ---
Tried to perform PT eval this p.m. - pt still not feeling up to it. Will try again tomorrow.
--- NOTE | 2021-01-13 15:03 | P.PNIM_ITS ---
Progress Note: A&P Assessment and Plan (1) Acute exacerbation of congestive heart failure: Code(s): I50.9 - Heart failure, unspecified Status: Acute Assessment and Plan: * Acute combined systolic and diastolic heart failure * EF is 20-25% on echocardiogram done in September 2020. * continue Lasix 40 mg IV q.12 hours, Lasix 80mg PO BID * trend labs, and renal function * appreciate cardiology evaluation recommendation * андрей peres * control blood pressures (2) Recurrent right pleural effusion: Code(s): J90 - Pleural effusion, not elsewhere classified Status: Acute Assessment and Plan: * Previous effusions have been transudative, likely due to CHF. * Therapeutic thoracentesis scheduled for today on 01/10/2021 * removed 1000ml of clear yellow fluid (3) Chronic kidney disease, stage 3b: Code(s): N18.32 - Chronic kidney disease, stage 3b Status: Acute Assessment and Plan: * Creatinine is back at baseline * creatinine of 1.70 today. * Continue to trend labs * negative fluid balance since admission (4) Chronic anemia: Code(s): D64.9 - Anemia, unspecified Status: Acute Assessment and Plan: * Hemoglobin and hematocrit are stable on review of previous labs. (5) Hypertension: Qualifiers: Hypertension type: essential hypertension Qualified Code(s): I10 - Essential (primary) hypertension Code(s): I10 - Essential (primary) hypertension Status: Chronic Assessment and Plan: * Current blood pressure 155/57 * Blood pressures are not well controlled, as high as 212/84 in the emergency department. * Resume home hydralazine 25mg PO Q8hr, lisinopril 20mg PO daily, metoprolol 25mg PO daily, imdur 30mg PO Daily * Trend blood pressures * Adjust medications as needed (6) Cardiomyopathy: Code(s): I42.9 - Cardiomyopathy, unspecified Status: Chronic Assessment and Plan: * Presumed ischemic cardiomyopathy with an EF of 20 to 25% on echo in September 2020. * stopped wearing her LifeVest after about a month due to skin irritation and back discomfort. * troponins are flat * significant elevation in BNP * treat coronary artery disease medically (7) Abnormal chest x-ray: Code(s): R93.89 - Abnormal findings on diagnostic imaging of other specified body structures Status: Acute Assessment and Plan: * cardiomegaly, pleural effusion, and pulmonary edema/congestion a right-sided pneumonia or obstructing right endobronchial lesion are not excluded. * history does not suggest pneumonia * Follow-up chest x-ray when condition improves or even chest CT may be prudent for further evaluation. Time Spent With Patient Time with patient: 25 - 35 minutes Subjective Date/time seen: 01/13/21 10:25 Interval history: Patient is a 75 year old female here for CHF exacerbation. Patient stated that she is doing well today. Her only complaint was that she was up all night with abdominal pain. She stated that she was given a stool softer that seemed to help and she has had two BM since then. She is ready to go home and stated that her son is there to help her when she needs anything. She also stated that she has been having a home health nurse come by as well. She denies chest pain, shortness of breath, weakness, fatigue, abdominal pain, fevers, sweats or chills. Cardiology would like one more day to evaluate further diuresis. She will probably get to go home tomorrow
--- NOTE | 2021-01-13 15:03 | PM.IMPN ---
Progress Note: A&P Assessment and Plan (1) Acute exacerbation of congestive heart failure: Code(s): I50.9 - Heart failure, unspecified Status: Acute Assessment and Plan: Acute combined systolic and diastolic heart failure EF is 20-25% on echocardiogram done in September 2020. continue Lasix 40 mg IV q.12 hours, Lasix 80mg PO BID trend labs, and renal function appreciate cardiology evaluation recommendation андрей hose control blood pressures (2) Recurrent right pleural effusion: Code(s): J90 - Pleural effusion, not elsewhere classified Status: Acute Assessment and Plan: Previous effusions have been transudative, likely due to CHF. Therapeutic thoracentesis scheduled for today on 01/10/2021 removed 1000ml of clear yellow fluid (3) Chronic kidney disease, stage 3b: Code(s): N18.32 - Chronic kidney disease, stage 3b Status: Acute Assessment and Plan: Creatinine is back at baseline creatinine of 1.70 today. Continue to trend labs negative fluid balance since admission (4) Chronic anemia: Code(s): D64.9 - Anemia, unspecified Status: Acute Assessment and Plan: Hemoglobin and hematocrit are stable on review of previous labs. (5) Hypertension: Qualifiers: Hypertension type: essential hypertension Qualified Code(s): I10 - Essential (primary) hypertension Code(s): I10 - Essential (primary) hypertension Status: Chronic Assessment and Plan: Current blood pressure 155/57 Blood pressures are not well controlled, as high as 212/84 in the emergency department. Resume home hydralazine 25mg PO Q8hr, lisinopril 20mg PO daily, metoprolol 25mg PO daily, imdur 30mg PO Daily Trend blood pressures Adjust medications as needed (6) Cardiomyopathy: Code(s): I42.9 - Cardiomyopathy, unspecified Status: Chronic Assessment and Plan: Presumed ischemic cardiomyopathy with an EF of 20 to 25% on echo in September 2020. stopped wearing her LifeVest after about a month due to skin irritation and back discomfort. troponins are flat significant elevation in BNP treat coronary artery disease medically (7) Abnormal chest x-ray: Code(s): R93.89 - Abnormal findings on diagnostic imaging of other specified body structures Status: Acute Assessment and Plan: cardiomegaly, pleural effusion, and pulmonary edema/congestion a right-sided pneumonia or obstructing right endobronchial lesion are not excluded. history does not suggest pneumonia Follow-up chest x-ray when condition improves or even chest CT may be prudent for further evaluation. Time Spent With Patient Time with patient: 25 - 35 minutes Subjective Date/time seen: 01/13/21 10:25 Interval history: Patient is a 75 year old female here for CHF exacerbation. Patient stated that she is doing well today. Her only complaint was that she was up all night with abdominal pain. She stated that she was given a stool softer that seemed to help and she has had two BM since then. She is ready to go home and stated that her son is there to help her when she needs anything. She also stated that she has been having a home health nurse come by as well. She denies chest pain, shortness of breath, weakness, fatigue, abdominal pain, fevers, sweats or chills. Cardiology would like one more day to evaluate further diuresis. She will probably get to go home tomorrow. Review of Systems Review of Systems: All systems reviewed & are unremarkable except as noted in HPI and below Exam Const: General: cooperative, healthy appearing, no acute distress, well developed, alert, awake, ill appearing and tired appearing Nutritional Appearance: well nourished Orientation/consciousness: oriented to person, oriented to place, oriented to time and patient oriented x3 Limitations: no limitations HENMT: Head: normal to inspection E
[2021-01-13] MEDS: MELATONIN 3 MG TABLET PO (21:15)
[2021-01-14] VITALS: PULSE 79
[2021-01-14 04:00] VITALS: PULSE 79
[2021-01-14 04:24] VITALS: BP 148/58; PULSE 80; RESP 17; TEMP 36.6; O2SAT 92
[2021-01-14 05:53] LABS: Hematocrit 26.5 % (37.0-47.0); Hemoglobin 8.7 g/dL (12.0-15.0); Mean Corpuscular HGB Conc 32.8 g/dl (32-36); Mean Corpuscular Volume 79.3 fl (80-100); Mean Platelet Volume 8.8 fl (7.4-10.4); Platelet Count Result 141 k/mm3 (150-375); Red Blood Count 3.34 M/mm3 (4.2-5.4); Red Cell Distribution Width 17.4 % (11.5-14.5); White Blood Count 6.5 K/mm3 (4.5-10.0)
[2021-01-14 06:15] LABS: Alanine Aminotransferase 12 U/L (4-35); Albumin Level 2.6 g/dL (3.5-5.1); Alkaline Phosphatase 73 U/L (38-126); Anion Gap 3 mmol/L (8-16); Aspartate Amino Transferase 25 U/L (14-36); Bilirubin,Total 0.3 mg/dL (0.2-1.3); Blood Urea Nitrogen 34 mg/dL (7-17); Calcium 7.9 mg/dL (8.4-10.2); Carbon Dioxide 27 mmol/L (22-30); Chloride 107 mmol/L (98-107); Estimated CRCL calculation 19 ml/min; Estimated Glomerular Filt Rate 35; Glucose 78 mg/dL (65-110); Magnesium 1.5 mg/dL (1.6-2.3); Phosphorus 4.3 mg/dL (2.5-4.5); Potassium 3.7 mmol/L (3.4-5.0); Sodium 137 mmol/L (137-145)
[2021-01-14] MEDS: hydrALAZINE HCL 25 MG TABLET 75 MG PO (07:59)
[2021-01-14 08:00] VITALS: PULSE 84; PULSE 94
[2021-01-14] MEDS: ISOSORBIDE MONONITRATE 30 MG TAB.ER.24H PO (08:00)
[2021-01-14] MEDS: ASPIRIN 81 MG ENTERIC TABLET PO (08:00)
[2021-01-14] MEDS: ATORVASTATIN 20 MG TABLET PO (08:00)
[2021-01-14] MEDS: FERROUS SULFATE 324 MG TABLET PO (08:00)
[2021-01-14] MEDS: METOPROLOL SUCCINATE EXT REL 25 MG TABCR PO (08:00)
[2021-01-14] MEDS: lisinopriL 20 MG TABLET PO (08:00)
[2021-01-14] MEDS: FUROSEMIDE 80 MG TABLET PO (08:01)
[2021-01-14] MEDS: ENOXAPARIN 30 MG/0.3 ML SYRINGE SUB-Q (08:01)
--- NOTE | 2021-01-14 10:17 | PM.PNCARD ---
Progress Note: A&P Assessment and Plan (1) Combined systolic and diastolic congestive heart failure: Code(s): I50.40 - Unspecified combined systolic (congestive) and diastolic (congestive) heart failure Status: Acute Assessment and Plan: Recurrent CHF; patient is noncompliant with sodium restriction And her blood pressure is not well controlled. States she is compliant with her medications. Overall her chest x-ray looks not as bad as on her previous admission. Transitioned from IV to oral furosemide yesterday. Daily BMPs Increase hydralazine today - BP no ideally controlled currently Encouraged dietary compliance LE edema slightly worse today on exam. Will order LIUDMILA hose. Improving. Continue diuresis with 80 mg furosemide p.o. but will change it to once daily upon discharge (2) Recurrent right pleural effusion: Code(s): J90 - Pleural effusion, not elsewhere classified Status: Acute Assessment and Plan: Unable to completely eradicate this right pleural effusion; had thoracentesis in May, in September , and again on this admission. No evidence of malignancy. May need higher dose of furosemide on discharge. (3) Cardiomyopathy: Code(s): I42.9 - Cardiomyopathy, unspecified Status: Chronic Assessment and Plan: EF 40-46%, improved compared to Phyllis. Probably partly hypertensive cardiomyopathy and perhaps an ischemic cardiomyopathy. On Lexiscan she has fixed and reversible defects. No angina Have not been able to proceed with cardiac catheterization because of chronic kidney disease and concerns of acute renal failure Continue to treat presumed CAD medically with aspirin and statin therapy. (4) Hypertension: Qualifiers: Hypertension type: essential hypertension Qualified Code(s): I10 - Essential (primary) hypertension Code(s): I10 - Essential (primary) hypertension Status: Chronic Assessment and Plan: Uncontrolled hypertension Increase hydralazine today to 75mg p.o. t.i.d (5) Chronic kidney disease, stage 3b: Code(s): N18.32 - Chronic kidney disease, stage 3b Status: Acute Assessment and Plan: CKD stage IIIB Stable Check BMP daily (6) Electrolyte imbalance: Code(s): E87.8 - Other disorders of electrolyte and fluid balance, not elsewhere classified Status: Acute Assessment and Plan: Magnesium is low. Will give 3 g IV magnesium as well as 20 mEq of p.o. potassium Subjective Date/time seen: 01/14/21 10:17 Interval history: Follow-up for acute on chronic systolic and diastolic heart failure. Recurrent pleural effusion status post thoracentesis 01/10/2021. Cardiomyopathy, presumably ischemic cardiomyopathy, EF 40-46%. Hypertension, and chronic kidney disease. Date of service 01/11/2021: I feel like I have improved a lot. Breathing and swelling are lot better. Underwent thoracentesis with removal of 1000 cc yesterday Good urine output and diuresis yesterday as well.. Date of service 01/12/2021: Feeling well today. She is breathing comfortably on room air, no dyspnea on exertion. She still has some LE edema but it is mild. Date of service 01/13/2021: Patient is not feeling very well this morning. She states that she thinks she ate something bad yesterday and has had abdominal pain all night. Not had any nausea or vomiting. Still making good urine. No shortness of breath, chest pain. She is very eager to go home but I told her that ideally I would like to keep her another day for diuresis. Date of service 01/14/2021: She was to go home. She denies any chest pain. Breathing is better. Swelling is better. Review of Systems Constitutional: Constitutional: Denies difficulty sleeping, Denies fatigue and Denies weakness ENT: Denies epistaxis Cardiovascular: Cardiovascular: Denies chest pain, Reports pedal edema, Reports leg edema, Reports lightheadedness (When ge
--- NOTE | 2021-01-14 11:33 | P.DS_ITS ---
DS: Admitting Diagnosis Discharge Date Date of service: 01/14/21 11:20 Admitting Diagnosis Acute exacerbation of CHF DS: Discharge Diagnosis Discharge Diagnosis (1) Acute exacerbation of congestive heart failure: Code(s): I50.9 - Heart failure, unspecified Status: Acute Assessment and Plan: * Acute combined systolic and diastolic heart failure * EF is 20-25% on echocardiogram done in September 2020. * continue Lasix 40 mg IV q.12 hours, Lasix 80mg PO BID * trend labs, and renal function * appreciate cardiology evaluation recommendation * андрей peres * control blood pressures Will discharge patient on 40mg Lasix PO BID (2) Recurrent right pleural effusion: Code(s): J90 - Pleural effusion, not elsewhere classified Status: Acute Assessment and Plan: * Previous effusions have been transudative, likely due to CHF. * Therapeutic thoracentesis scheduled for today on 01/10/2021 * removed 1000ml of clear yellow fluid (3) Chronic kidney disease, stage 3b: Code(s): N18.32 - Chronic kidney disease, stage 3b Status: Acute Assessment and Plan: * Creatinine is back at baseline * creatinine of 1.70 today. * Continue to trend labs * negative fluid balance since admission (4) Chronic anemia: Code(s): D64.9 - Anemia, unspecified Status: Acute Assessment and Plan: * Hemoglobin and hematocrit are stable on review of previous labs. (5) Hypertension: Qualifiers: Hypertension type: essential hypertension Qualified Code(s): I10 - Essential (primary) hypertension Code(s): I10 - Essential (primary) hypertension Status: Chronic Assessment and Plan: * Current blood pressure 148/58 * Blood pressures are not well controlled, as high as 212/84 in the emergency department. * Resume home hydralazine 25mg PO Q8hr, lisinopril 20mg PO daily, metoprolol 25mg PO daily, imdur 30mg PO Daily * Trend blood pressures * Adjust medications as needed (6) Cardiomyopathy: Code(s): I42.9 - Cardiomyopathy, unspecified Status: Chronic Assessment and Plan: * Presumed ischemic cardiomyopathy with an EF of 20 to 25% on echo in September 2020. * stopped wearing her LifeVest after about a month due to skin irritation and back discomfort. * troponins are flat * significant elevation in BNP * treat coronary artery disease medically (7) Abnormal chest x-ray: Code(s): R93.89 - Abnormal findings on diagnostic imaging of other specified body structures Status: Acute Assessment and Plan: * cardiomegaly, pleural effusion, and pulmonary edema/congestion a right-sided p neumonia or obstructing right endobronchial lesion are not excluded. * history does not suggest pneumonia * Follow-up chest x-ray when condition improves or even chest CT may be prudent for further evaluation. DS: Summary Hospital Course Hospital Course: Patient is a 75-year-old female with a past medical history of hypertension, congestive heart failure, COPD, and PAD who presented to the ED for evaluation of shortness of breath. It was noted back in September patient did have an echo done which found that she had a combined systolic and diastolic congestive heart failure with an ejection fraction of 20-25%. Patient was placed on IV Lasix 40 mg q.12 hours then to 80 mg p.o. b.i.d. and patient has been able to diurese a lot of extra fluid. Cardiology is also seen and followed the patient through th
--- NOTE | 2021-01-14 11:33 | PM.DS ---
DS: Admitting Diagnosis Discharge Date Date of service: 01/14/21 11:20 Admitting Diagnosis Acute exacerbation of CHF DS: Discharge Diagnosis Discharge Diagnosis (1) Acute exacerbation of congestive heart failure: Code(s): I50.9 - Heart failure, unspecified Status: Acute Assessment and Plan: Acute combined systolic and diastolic heart failure EF is 20-25% on echocardiogram done in September 2020. continue Lasix 40 mg IV q.12 hours, Lasix 80mg PO BID trend labs, and renal function appreciate cardiology evaluation recommendation андрей peres control blood pressures Will discharge patient on 40mg Lasix PO BID (2) Recurrent right pleural effusion: Code(s): J90 - Pleural effusion, not elsewhere classified Status: Acute Assessment and Plan: Previous effusions have been transudative, likely due to CHF. Therapeutic thoracentesis scheduled for today on 01/10/2021 removed 1000ml of clear yellow fluid (3) Chronic kidney disease, stage 3b: Code(s): N18.32 - Chronic kidney disease, stage 3b Status: Acute Assessment and Plan: Creatinine is back at baseline creatinine of 1.70 today. Continue to trend labs negative fluid balance since admission (4) Chronic anemia: Code(s): D64.9 - Anemia, unspecified Status: Acute Assessment and Plan: Hemoglobin and hematocrit are stable on review of previous labs. (5) Hypertension: Qualifiers: Hypertension type: essential hypertension Qualified Code(s): I10 - Essential (primary) hypertension Code(s): I10 - Essential (primary) hypertension Status: Chronic Assessment and Plan: Current blood pressure 148/58 Blood pressures are not well controlled, as high as 212/84 in the emergency department. Resume home hydralazine 25mg PO Q8hr, lisinopril 20mg PO daily, metoprolol 25mg PO daily, imdur 30mg PO Daily Trend blood pressures Adjust medications as needed (6) Cardiomyopathy: Code(s): I42.9 - Cardiomyopathy, unspecified Status: Chronic Assessment and Plan: Presumed ischemic cardiomyopathy with an EF of 20 to 25% on echo in September 2020. stopped wearing her LifeVest after about a month due to skin irritation and back discomfort. troponins are flat significant elevation in BNP treat coronary artery disease medically (7) Abnormal chest x-ray: Code(s): R93.89 - Abnormal findings on diagnostic imaging of other specified body structures Status: Acute Assessment and Plan: cardiomegaly, pleural effusion, and pulmonary edema/congestion a right-sided pneumonia or obstructing right endobronchial lesion are not excluded. history does not suggest pneumonia Follow-up chest x-ray when condition improves or even chest CT may be prudent for further evaluation. DS: Summary Hospital Course Hospital Course: Patient is a 75-year-old female with a past medical history of hypertension, congestive heart failure, COPD, and PAD who presented to the ED for evaluation of shortness of breath. It was noted back in September patient did have an echo done which found that she had a combined systolic and diastolic congestive heart failure with an ejection fraction of 20-25%. Patient was placed on IV Lasix 40 mg q.12 hours then to 80 mg p.o. b.i.d. and patient has been able to diurese a lot of extra fluid. Cardiology is also seen and followed the patient through this case. Patient was noted in the ED to have a blood pressure that was elevated in the 200 systolically. patient was given medications and her blood pressure returned to baseline. Patient was also noted to have a pleural effusion which was drained on 01/10/2021. They were able to remove a 1000 cc of clear yellow fluid. Patient was also noted to have an elevated creatinine which has returned back to her baseline of 1.7. Hemoglobin hematocrit were also closely follow throughout thi
[2021-01-14 12:00] VITALS: PULSE 79
--- NOTE | 2021-01-14 13:23 | PC.NURSE ---
pt was d/c on 01/14/21. Her IV was taken out so no IV magnesium was given. pt did not want to take other meds due to leaving in an hour or so. discharge papers were gone over in detail with the pt.
== END 2021-01-14 13:40 | disposition home health service (06) | DRG 291 ==
LOC: ANHED 15:28 → ANHIMU 18:17 → ANHICU 20:22 → ANH3MED 01-10 11:22
PROVIDERS: Internal Medicine Cardiovascular Disease; Nurse Practitioner; Physician Assistant; Admitting Provider Family Medicine; Emergency Provider Emergency Medicine; PCP Family Medicine; Visit Provider Internal Medicine
DX: I13.0 Hypertensive heart and chronic kidney disease with heart failure and stage 1 through stage 4 chronic kidney disease, or unspecified chronic kidney disease (principal); I50.43 Acute on chronic combined systolic (congestive) and diastolic (congestive) heart failure; J90 Pleural effusion, not elsewhere classified; N17.9 Acute kidney failure, unspecified; Z23 Encounter for immunization; N18.32 Chronic kidney disease, stage 3b; I43 Cardiomyopathy in diseases classified elsewhere; I25.5 Ischemic cardiomyopathy; I73.9 Peripheral vascular disease, unspecified; D63.1 Anemia in chronic kidney disease; J43.9 Emphysema, unspecified; E87.8 Other disorders of electrolyte and fluid balance, not elsewhere classified; Z87.891 Personal history of nicotine dependence; Z95.820 Peripheral vascular angioplasty status with implants and grafts; Z79.82 Long term (current) use of aspirin; Z91.11 Patient's noncompliance with dietary regimen
CPT/HCPCS: 32555; 36415; 71045; 71046; 80048; 80053; 80069; 83735; 83880; 84100; 84443; 84484; 85025; 85027; 85610; 85730; 90471; 90653; 93005; 93970; 96372; 96374; 96376; 97162; 97165; 99285; A9270; G0008; G0378; J0360; J1650; J1940

== ENCOUNTER 2021-03-25 11:04 | Outpatient (CLI) | payer BC, SELFPAY ==
[2021-03-25 11:48] LABS: Hematocrit 41.4 % (37.0-47.0); Hemoglobin 14.1 g/dL (12.0-15.0); Mean Corpuscular HGB Conc 34.1 g/dl (32-36); Mean Corpuscular Hemoglobin 26.9 pg (26-34); Mean Corpuscular Volume 78.9 fl (80-100); Mean Platelet Volume 8.4 fl (7.4-10.4); Platelet Count Result 181 k/mm3 (150-375); Red Blood Count 5.25 M/mm3 (4.2-5.4); Red Cell Distribution Width 18.3 % (11.5-14.5)
[2021-03-25 12:13] LABS: Albumin Level 3.5 g/dL (3.5-5.1); Anion Gap 11 mmol/L (8-16); Blood Urea Nitrogen 30 mg/dL (7-17); Calcium 8.4 mg/dL (8.4-10.2); Carbon Dioxide 22 mmol/L (22-30); Chloride 105 mmol/L (98-107); Estimated Glomerular Filt Rate 31; Glucose 82 mg/dL (65-110); Phosphorus 4.4 mg/dL (2.5-4.5); Potassium 4.1 mmol/L (3.4-5.0); Sodium 138 mmol/L (137-145)
[2021-03-25 13:22] LABS: Creatinine Urine 80.1 mg/dL
[2021-03-25 14:04] LABS: Total Protein Urine Random > 600 mg/dL
== END 2021-03-25 11:05 | disposition home or self-care (01) ==
LOC: ANHLAB 11:11
PROVIDERS: PCP Family Medicine; Visit Provider Internal Medicine Nephrology
DX: N18.32 Chronic kidney disease, stage 3b (principal); N17.9 Acute kidney failure, unspecified
CPT/HCPCS: 36415; 80069; 82570; 83970; 84156; 85027

== ENCOUNTER 2021-04-23 09:23 | Inpatient (IN) | payer MEDICARE, BC, SELFPAY ==
[2021-04-23] VITALS (41 sets, daily range): BP systolic 149–198; BP diastolic 62–114; PULSE 84–102; RESP 14–28; TEMP 36.4–37.4; O2SAT 70–100; BMI 22.1
--- NOTE | ~2021-04-23 | US_ITS ---
EXAMINATION: US venous doppler [facility] DATE: 04/24/2021 16:01 INDICATION: Lower limb edema. TECHNIQUE: Grayscale ultrasound images without and with compression and Doppler ultrasound images of the bilateral lower extremity veins were obtained. COMPARISON: Ultrasound 01/10/2021 FINDINGS: The visualized portions of right common femoral vein, profunda (deep) femoral vein, femoral vein, pop liteal vein, peroneal veins, posterior tibial veins, and greater saphenous vein outflow are patent. The visualized portions of left common femoral vein, profunda femoral vein, femoral vein, popliteal v ein, peroneal veins, posterior tibial veins, and greater saphenous vein outflow are patent. IMPRESSION: 1. No deep venous thrombosis. Reviewed, dictated and finalized at location B. CTOR OF VITAL STATISTICS
--- NOTE | ~2021-04-23 | XR_ITS ---
EXAMINATION: XR chest 2V EXAM DATE: 04/23/2021 10:54 INDICATION: SOBx2 weeks, cough. TECHNIQUE: Frontal and lateral projections of the chest obtained and reviewed. Comparison is made to prior examination from 01/14/2021. FINDINGS: Again there is moderate sized right pleural effusion with adjacent multisegmental atelecta sis. Indistinct bilateral reticulation, edema or pneumonia. Cardiomegaly. No pneumothorax. There are bony degenerative changes. There is aortic arteriosclerosis. IMPRESSION: 1. Cardiomegaly, bilateral ill-defined edema or pneumonia. 2. Moderate right pleural effusion, adjacent multisegmental atelectasis. Reviewed, dictated and finalized at location A. TRACK BETTING MANAGER
--- NOTE | ~2021-04-23 | XR_ITS ---
EXAMINATION: XR chest 2V EXAM DATE: 04/27/2021 14:55 INDICATION: Effusion . TECHNIQUE: Frontal and lateral projections of the chest obtained and reviewed. Comparison is made to prior examination from 04/23/2021. FINDINGS: There is cardiomegaly and pulmonary vascular congestion. There is moderate to large right pleural effusion with adjacent compressive atelectasis. Bibasilar pneumonia and/or edema. No pneumoth orax. There is aortic arteriosclerosis. There are bony degenerative changes. IMPRESSION: 1. Moderate to large right pleural effusion, adjacent atelectasis. 2. Cardiomegaly, congestion. 3. Moderate amount of bilateral pneumonia or edema. Reviewed, dictated and finalized at location G. GRINDER SET UP OPERATOR GEAR
--- NOTE | ~2021-04-23 | US_ITS ---
EXAMINATION: US thoracentesis DATE: 04/23/2021 15:17 INDICATION: Right pleural effusion TECHNIQUE: The procedure and its risks and benefits were discussed with the patient. Potential risks discussed included bleeding, infection, and pneumothorax. The patient understood the risks and agreed to proceed. The skin was prepped and draped in sterile fashion. 1% lidocaine was used for local anes thesia. Under ultrasound guidance, a 5 Fr catheter with trochar was advanced into the right pleural e ffusion. Fluid was aspirated. The catheter was removed, and a dressing was applied. There were no imm ediate complications. FINDINGS: Ultrasound images demonstrate a moderate-sized right pleural effusion and the catheter within the flu id. IMPRESSION: 1. Successful ultrasound-guided thoracentesis yielding 1000 mL of clear rashad-colored fluid. Reviewed, dictated and finalized at location A. TENANCE DEPARTMENT MANAGER IMPRESSION: 1. Successful ultrasound-guided thoracentesis yielding 1000 mL of clear rashad- colored fluid.
--- NOTE | ~2021-04-23 | XR_ITS ---
EXAMINATION: [id number] DATE: 04/23/2021 15:18 INDICATION: Right pleural effusion status post thoracentesis. TECHNIQUE: Frontal and lateral views of the chest were obtained. COMPARISON: Chest 2 views at 9:34 AM FINDINGS: There is a small right pleural effusion. There is a diffuse interstitial pattern in the maninder gs, consistent with mild pulmonary edema. No pneumothorax. Cardiomegaly is noted. There are surgical clips in the abdomen. IMPRESSION: 1. Small right pleural effusion with improvement status post thoracentesis. 2. Mild pulmonary edema. 3. Cardiomegaly. Reviewed, dictated and finalized at location B. DECKHAND
--- NOTE | 2021-04-23 09:30 | ECG_ITS ---
Measurements Intervals [place] Rate: 100 P: 83 MN: 115 QRS: 129 QRSD: 90 T: 65 QT: 355 QTc: 459 Interpretive Statements SINUS TACHYCARDIA WITH SHORT MN INTERVAL ATRIAL PREMATURE COMPLEX RIGHT AXIS DEVIATION POSSIBLE LEFT ATRIAL ENLARGEMENT ANTEROSEPTAL INFARCT, AGE INDETERMINATE BORDERLINE T WAVE ABNORMALITY- INFERIOR LEADS BASELINE WANDER- I, II, III, AVR, AVL, V2, V6 ABNORMAL ECG Electronically Signed On 04-23-2021 9:46:30 CHROME TANNING DRUM OPERATOR by Gael Steward D.O.
--- NOTE | 2021-04-23 09:53 | ED.SOB ---
HPI - SOB/Dyspnea General Chief Complaint: Shortness of Breath/Dyspnea Stated Complaint: shortness of breath Time Seen by Provider: 04/23/21 09:35 Source: patient Mode of arrival: ambulatory Limitations: no limitations History of Present Illness HPI Narrative: Patient is a 75-year-old female complaining of shortness of breath, worse with exertion accompanied by increasing bilateral lower extremity edema started 1 week ago. Patient's son states that her PCP ordered an x-ray yesterday and found fluid in her lungs and was told to go the emergency room. Patient has history of CHF, has had thoracentesis in the past due to pleural effusion. Related Data Home Medications Medication Instructions Recorded Confirmed aspirin 81 mg PO DAILY 05/10/20 01/09/21 zolpidem 5 mg PO HS PRN 05/10/20 01/09/21 ferrous sulfate 325 mg PO BID 09/10/20 01/09/21 loratadine [Claritin] 10 mg PO DAILY PRN 09/10/20 01/09/21 albuterol sulfate 2 puff INHALATION QID PRN 04/23/21 Allergies Allergy/AdvReac Type Severity Reaction Status Date / Time Penicillins Allergy Unknown Unknown Verified 04/23/21 09:43 Review of Systems Review of Systems: All systems reviewed & are unremarkable except as noted in HPI and below Constitutional: Constitutional: Denies body ache(s), Denies chills, Denies excessive sweating, Denies fatigue, Denies fever(s), Denies headache(s), Denies lethargy, Denies malaise, Denies weakness and Denies weight loss Eyes: Eyes: Denies blurry vision, Denies change in vision and Denies loss of vision ENT: Denies dizziness, Denies ear discharge, Denies headache(s), Denies lip swelling, Denies epistaxis, Denies nasal congestion, Denies neck pain, Denies throat swelling and Denies tongue swelling Cardiovascular: Cardiovascular: Denies chest pain, Denies chest pain at rest, Denies chest pain with activity, Denies diaphoresis, Denies rapid heart rate, Denies edema, Denies irregular heart rhythm, Denies lightheadedness and Denies palpitations Respiratory: Respiratory: Denies chest congestion and Denies hemoptysis Gastrointestinal: Gastrointestinal: Denies abdominal pain, Denies melena, Denies hematochezia, Denies diarrhea, Denies nausea, Denies vomiting and Denies hematemesis Musculoskeletal: Musculoskeletal: Denies abnormal gait, Denies deformity, Denies joint swelling, Denies limited range of motion, Denies neck pain and Denies numbness Neurologic: Denies Abnormal speech present, Denies abnormal gait, Denies confusion, Denies dizziness, Denies headache(s), Denies focal weakness, Denies loss of vision, Denies numbness, Denies Other visual disturbances, Denies Sensory deficit (Neuro) and Denies weakness Psychiatric: Psychiatric: Denies confusion, Denies depression, Denies auditory hallucinations, Denies homicidal ideation and Denies suicidal ideation Endocrine: Endocrine: Denies cold intolerance, Denies excessive sweating, Denies fatigue, Denies heat intolerance and Denies palpitations Hematologic/Lymphatic: Hematologic/Lymphatic: Denies easy bleeding and Denies easy bruising Allergic/Immunologic: Allergic/Immunologic: Denies lip swelling, Denies throat swelling and Denies tongue swelling PMFSH Past Medical History Medical History Cardiomyopathy Presumed ischemic with moderately sized moderately severe reversible defect and small mild non reversible infarct on Lexiscan stress on 09/12/2020. Chronic anemia History of blood transfusion. Chronic kidney disease, stage 3b Baseline creatinine ranges between 1.4 and 1.90. Combined systolic and diastolic congestive heart failure Echocardiogram on 09/10/2020 EF of 20 to 25%, grade 1 diastolic dysfunction, reduced RV systolic function. 12/2020 echo EF 40-46% with segmental wall motion abnormalities COPD with emphysema Hypertension Peripheral arterial disease Severe anemia Surgical History Surgical History (Reviewed 04/23/21 @ 09:56 by Jose Samayoa
[2021-04-23 09:54] LABS: Basophils Percent Auto 0.9 % (0.2-1.2); Eosinophils Absolute Auto 0.2 K/mm3 (0-0.3); Eosinophils Percent Auto 4.7 % (0-4.4); Hematocrit 45.5 % (37.0-47.0); Hemoglobin 15.2 g/dL (12.0-15.0); Immature Granulocyte Absolute 0.01 K/mm3 (0.00-0.031); Immature Granulocyte Percent A 0.2 % (0-0.5); Immature Platelet Fraction Pct 1.9 % (0.9-11.2); Lymphocytes Absolute Auto 0.43 K/mm3 (0.9-3.2); Lymphocytes Percent Auto 9.7 % (18.3-44.2); Mean Corpuscular HGB Conc 33.4 g/dl (32-36); Mean Corpuscular Volume 80.7 fl (80-100); Mean Platelet Volume 8.5 fl (7.4-10.4); Monocytes Absolute Auto 0.6 K/mm3 (0.1-0.6); Monocytes Percent Auto 13.1 % (2.6-8.5); Neutrophils Absolute Auto 3.2 K/mm3 (1.3-6.7); Neutrophils Percent Auto 71.4 % (45.5-73.1); Platelet Count Result 126 k/mm3 (150-375); Red Blood Count 5.64 M/mm3 (4.2-5.4); Red Cell Distribution Width 19.6 % (11.5-14.5); White Blood Count 4.4 K/mm3 (4.5-10.0)
[2021-04-23] MEDS: FUROSEMIDE INJ 40 MG/4 ML VIAL IV PUSH ×2 (09:59→20:33)
[2021-04-23 10:05] LABS: Alanine Aminotransferase 17 U/L (4-35); Albumin Level 3.7 g/dL (3.5-5.1); Alkaline Phosphatase 109 U/L (38-126); Anion Gap 6 mmol/L (8-16); Aspartate Amino Transferase 30 U/L (14-36); Bilirubin,Total 0.9 mg/dL (0.2-1.3); Blood Urea Nitrogen 31 mg/dL (7-17); Calcium 8.6 mg/dL (8.4-10.2); Carbon Dioxide 28 mmol/L (22-30); Chloride 105 mmol/L (98-107); Estimated CRCL calculation 18 ml/min; Estimated Glomerular Filt Rate 31; Glucose 101 mg/dL (65-110); Potassium 4.7 mmol/L (3.4-5.0); Sodium 139 mmol/L (137-145)
[2021-04-23 10:09] LABS: INR 1.1; Partial Thromboplastin Time 32.8 SECONDS (22.3-36.8)
[2021-04-23 10:26] LABS: NT Pro B Type Natriuretic Pept > 35000 pg/mL (5-100); Troponin I 0.047 ng/mL (0.000-0.034)
[2021-04-23] MEDS: ASPIRIN 81 MG CHEWABLE TABLET 324 MG PO (10:31)
[2021-04-23 14:32] LABS: SARS-CoV-2 RNA PCR Negative
[2021-04-23 15:13] LABS: Troponin I 0.039 ng/mL (0.000-0.034)
--- NOTE | 2021-04-23 16:32 | PM.IMHP ---
H&P: HPI History of Present Illness Date/Time: 04/23/21 16:32 this is a 75-year-old female patient who has a history of CHF came to the emergency room complaining of shortness of breath. The patient is currently on oxygen at 5 L per nasal cannula and she states that she typically is not on oxygen. After reviewing her notes the patient was given a life vest however the patient has been intolerant of the life vest and has not worn it. The patient also complained of having increased swelling to her lower extremities bilaterally that started approximately 1 week ago. The patient states that she takes 10 medications a day and does not appear to be helping her. The patient has had a moderate to large pleural effusion in the past and had a thoracentesis her last admission January of 2021. The patient was given IV Lasix in the emergency room as well as aspirin. Chest x-ray was read as cardiomegaly, bilateral ill-defined edema or pneumonia. Moderate right pleural effusion, adjacent multi segmental atelectasis. I did order a thoracentesis for the patient which was performed today annual that a 1000 mL of clear rashad colored fluid. Patient's chest x-ray was read as small right pleural effusion with improvement status post thoracentesis. According to her last echo on 09/10/2020 the patient was noted to have an ejection fraction of 20-25% with a grade 1 diastolic dysfunction. The patient is being admitted to observation status on the date of service of 04/23/2021. Chief Complaint: sob Review of Systems Review of Systems: All systems reviewed & are unremarkable except as noted in HPI and below Constitutional: Constitutional: Reports as per HPI and Reports no additional constitutional complaints Eyes: Eyes: Reports as per HPI and Reports no additional eye complaints ENT: Reports system reviewed and no additional complaints, except as documented and Reports Normal hearing present Cardiovascular: Cardiovascular: Reports no additional cardiovascular complaints Respiratory: Respiratory: Reports no additional respiratory complaints and Reports no additional respiratory complaints Gastrointestinal: Gastrointestinal: Reports as per HPI and Reports no additional gastrointestinal complaints Musculoskeletal: Musculoskeletal: Reports no additional musculoskeletal complaints Integumentary/Breasts: Skin/Breast: Reports system reviewed and no additional complaints, except as docu and Reports as per HPI Neurologic: Reports system reviewed and no additional complaints, except as documented, Reports as per HPI and Reports Normal hearing present Psychiatric: Psychiatric: Reports no additional psychiatric complaints and Reports as per HPI Endocrine: Endocrine: Reports no additional endocrine complaints Hematologic/Lymphatic: Hematologic/Lymphatic: Reports no additional hematologic/lymphatic complaints Allergic/Immunologic: Allergic/Immunologic: Reports no additional allergic/immunologic complaints [facility] Past Medical History Medical History (Updated 04/23/21 @ 16:53 by Valerie Katz NP) Cardiomyopathy Presumed ischemic with moderately sized moderately severe reversible defect and small mild non reversible infarct on Lexiscan stress on 09/12/2020. Chronic anemia History of blood transfusion. Chronic kidney disease, stage 3b Baseline creatinine ranges between 1.4 and 1.90. Combined systolic and diastolic congestive heart failure Echocardiogram on 09/10/2020 EF of 20 to 25%, grade 1 diastolic dysfunction, reduced RV systolic function. 12/2020 echo EF 40-46% with segmental wall motion abnormalities COPD with emphysema Hyperlipidemia Hypertension Peripheral arterial disease Severe anemia Surgical History Surgical History History of colonoscopy History of colon polyps, internal hemorrhoids, and diverticulosis. History of esophagogastroduodenoscopy History of gastric erosions, gastric polyps, and duo
[2021-04-23 16:35] LABS: Troponin I 0.038 ng/mL (0.000-0.034)
[2021-04-23] MEDS: hydrALAZINE HCL 20 MG/ML VIAL 10 MG IV PUSH (21:43)
[2021-04-23] MEDS: ACETAMINOPHEN 325 MG TABLET 650 MG PO (23:17)
[2021-04-24] VITALS (17 sets, daily range): BP systolic 139–179; BP diastolic 65–78; PULSE 72–96; RESP 16–22; TEMP 36.1–37.3; O2SAT 91–98
--- NOTE | 2021-04-24 | ECHO_ITS ---
Patient Info Name: Alina Allen Age: 75 years : 1945 Gender: Female Ht: 62 in Wt: 132 lbs BSA: 1.63 m2 HR: 82 bpm BP: 157 / 70 mmHg Technical Quality: Good Exam Date: 04/24/2021 8:18 AM Exam Location: [facility] Patient Status: Inpatient Admit Date: 04/23/2021 Staff Ordering Physician: Valerie Katz NP [employer] Operator: Nicholas Urbina RDCS, RT Attending Provider: Edita Villalpando M.A., MD Referring Physician: Sterling CAIN; Exam Type: CA echo doppler color flow Study Info Indications I50.9 - Heart failure, unspecified Complete two-dimensional, color flow and Doppler transthoracic echocardiogram is performed. Strain analysis performed. Summary 1. Complete two-dimensional, color flow and Doppler transthoracic echocardiogram is performed. 2. Left ventricular chamber dimension is mildly enlarged. 3. Left ventricular systolic function is severely reduced, estimated at 20-25%. 4. There is moderately increased left ventricular wall thickness. 5. The left ventricular diastolic function is grade I diastolic dysfunction. 6. E/e' 17 is elevated. 7. Global longitudinal strain is abnormal at -6.0%. 8. Right ventricular systolic function is severely reduced and with abnormal TAPSE 0.9 cm. 9. Right ventricular chamber dimension is mildly enlarged. 10. Left atrial chamber dimension is moderately enlarged. 11. Right atrial chamber dimension is moderately enlarged. 12. There is trace aortic valve regurgitation. 13. There is mild mitral valve regurgitation. 14. There is mild to moderate tricuspid valve regurgitation. 15. Mild pulmonary hypertension, estimated pulmonary arterial systolic pressure is 44 mmHg. 16. There is trace pulmonic regurgitation. Left Ventricle E/e' 17 is elevated. Global longitudinal strain is abnormal at -6.0%. Left ventricular chamber dimension is mildly enlarged. Left ventricular systolic function is severely reduced, estimated at 20-25%. There is moderately increased left ventricular wall thickness. The left ventricular diastolic function is grade I diastolic dysfunction. Right Ventricle Right ventricular systolic function is severely reduced and with abnormal TAPSE 0.9 cm. Right ventricular chamber dimension is mildly enlarged. Left Atria Left atrial chamber dimension is moderately enlarged. Right Atria Right atrial chamber dimension is moderately enlarged. Aortic Valve The aortic valve is trileaflet. There is no aortic valve stenosis. There is trace aortic valve regurgitation. Pulmonic Valve There is trace pulmonic regurgitation. Mitral Valve There is no mitral valve stenosis. There is mild mitral valve regurgitation. Tricuspid Valve There is mild to moderate tricuspid valve regurgitation. Mild pulmonary hypertension, estimated pulmonary arterial systolic pressure is 44 mmHg. Pericardium/Pleural There is no pericardial effusion. Inferior Vena Cava Normal inferior vena cava with >50% collapse upon inspiration consistent with normal right atrial pressure, 5 mmHg. Aorta The aortic root size at the sinus of Valsalva is normal. Left Ventricular Outflow Tract Name Value Normal LVOT 2D LVOT Diameter 1.9 cm LV
[2021-04-24] MEDS: MELATONIN 3 MG TABLET PO ×2 (01:18→22:02)
--- NOTE | 2021-04-24 01:47 | ADMGEN ---
This patient, Alina Allen, was admitted to IMU Room 205-02 at 1845. Patient/family oriented to hospital policies and general routines including ID bracelet, bed and alarms, visiting hours, pain management, procedures, bathroom and other care routines, personal items, smoking policy, room service/diet, and visiting hours. Information on how to activate the Rapid Response Team has been discussed. Patient/Family are encouraged to report perceived risks to care and to ask questions if they do not understand what they are told or what they should do.
[2021-04-24 05:29] LABS: Basophils Absolute Auto 0.1 K/mm3 (0.0-0.1); Basophils Percent Auto 1.1 % (0.2-1.2); Eosinophils Absolute Auto 0.3 K/mm3 (0-0.3); Eosinophils Percent Auto 5.3 % (0-4.4); Hematocrit 43.2 % (37.0-47.0); Hemoglobin 14.6 g/dL (12.0-15.0); Immature Granulocyte Absolute 0.02 K/mm3 (0.00-0.031); Immature Granulocyte Percent A 0.4 % (0-0.5); Lymphocytes Absolute Auto 0.48 K/mm3 (0.9-3.2); Lymphocytes Percent Auto 10.3 % (18.3-44.2); Mean Corpuscular HGB Conc 33.8 g/dl (32-36); Mean Corpuscular Hemoglobin 27.2 pg (26-34); Mean Corpuscular Volume 80.4 fl (80-100); Mean Platelet Volume 9.1 fl (7.4-10.4); Monocytes Absolute Auto 0.5 K/mm3 (0.1-0.6); Monocytes Percent Auto 9.8 % (2.6-8.5); Neutrophils Absolute Auto 3.4 K/mm3 (1.3-6.7); Neutrophils Percent Auto 73.1 % (45.5-73.1); Platelet Count Result 92 k/mm3 (150-375); Red Blood Count 5.37 M/mm3 (4.2-5.4); Red Cell Distribution Width 18.7 % (11.5-14.5); White Blood Count 4.7 K/mm3 (4.5-10.0)
[2021-04-24 05:40] LABS: Alanine Aminotransferase 15 U/L (4-35); Alkaline Phosphatase 91 U/L (38-126); Anion Gap 7 mmol/L (8-16); Aspartate Amino Transferase 28 U/L (14-36); Bilirubin,Total 0.7 mg/dL (0.2-1.3); Blood Urea Nitrogen 32 mg/dL (7-17); Calcium 8.2 mg/dL (8.4-10.2); Carbon Dioxide 23 mmol/L (22-30); Chloride 107 mmol/L (98-107); Estimated CRCL calculation 19 ml/min; Estimated Glomerular Filt Rate 33; Glucose 105 mg/dL (65-110); Lactate Dehydrogenase 570 U/L (313-618); Magnesium 1.9 mg/dL (1.6-2.3); Potassium 3.7 mmol/L (3.4-5.0); Sodium 137 mmol/L (137-145)
[2021-04-24 05:45] LABS: Lactic Acid Reflex 1.1 mmol/L (0.7-2.1)
[2021-04-24] MEDS: hydrALAZINE HCL 25 MG TABLET 75 MG PO ×3 (09:04→16:48)
[2021-04-24] MEDS: ASPIRIN 81 MG CHEWABLE TABLET PO (09:04)
[2021-04-24] MEDS: lisinopriL 20 MG TABLET 40 MG PO (09:05)
[2021-04-24] MEDS: ATORVASTATIN 20 MG TABLET PO (09:05)
[2021-04-24] MEDS: FUROSEMIDE INJ 40 MG/4 ML VIAL IV PUSH ×2 (09:05→16:48)
[2021-04-24] MEDS: ISOSORBIDE MONONITRATE 30 MG TAB.ER.24H PO (09:05)
[2021-04-24] MEDS: METOPROLOL SUCCINATE EXT REL 25 MG TABCR PO (09:06)
[2021-04-24] MEDS: ACETAMINOPHEN 325 MG TABLET 650 MG PO ×2 (09:14→22:07)
--- NOTE | 2021-04-24 11:20 | PM.IMPN ---
Progress Note: A&P Assessment and Plan (1) Acute exacerbation of CHF (congestive heart failure): Qualifiers: Heart failure type: unspecified Qualified Code(s): I50.9 - Heart failure, unspecified Code(s): I50.9 - Heart failure, unspecified Status: Acute Assessment and Plan: Associated with acute hypoxemic respiratory failure pulmonary edema and pleural effusion Continue with IV Lasix. Continue with metoprolol. The patient had a moderate pleural effusion. The patient did have a thoracentesis of a 1000 mL. Most likely secondary to her congestive heart failure. Echo showed ejection fraction 20% with pulmonary hypertension (2) Chronic kidney disease, stage 3b: Code(s): N18.32 - Chronic kidney disease, stage 3b Status: Acute Assessment and Plan: Continue to monitor. She is at her baseline. Monitor CMP daily (3) Chronic anemia: Code(s): D64.9 - Anemia, unspecified Status: Acute Assessment and Plan: Resolved (4) COPD with emphysema: Code(s): J43.9 - Emphysema, unspecified Status: Acute Assessment and Plan: Stable Continue with home inhalers. (5) Hypertension: Qualifiers: Hypertension type: essential hypertension Qualified Code(s): I10 - Essential (primary) hypertension Code(s): I10 - Essential (primary) hypertension Status: Chronic Assessment and Plan: Continue with lisinopril, metoprolol and hydralazine (6) Hyperlipidemia: Code(s): E78.5 - Hyperlipidemia, unspecified Status: Acute Assessment and Plan: Continue with atorvastatin (7) LINNETTE (iron deficiency anemia): Code(s): D50.9 - Iron deficiency anemia, unspecified Status: Acute Assessment and Plan: Stable Subjective Date/time seen: 04/24/21 11:20 Interval history: 75 years old female with past medical history of combined CHF COPD hyperlipidemia hypertension severe anemia chronic kidney disease stage 3 presented to the hospital with worsening shortness of breath chest x-ray was done showed pulmonary edema with pleural effusion patient has thoracentesis on 04/23/2021 with removal of 1 L of probably transudative fluid patient also has elevated troponin cardiology was consulted patient has lower extremity swelling Doppler of lower extremity was ordered Patient feels weak short of breath Patient denies fever headache chest pain I am seeing the patient for shortness of breath Exam Narrative: Alert Chest bilateral crackles Abdomen nontender nondistended CVS S1 + S2 Lower positive extremity edema Objective Data Vital Signs Vital Signs: Vital Signs - 24 hr 04/23/21 11:36 04/23/21 11:38 04/23/21 11:45 Temperature Pulse Rate Respiratory Rate Blood Pressure 185/94 H Pulse Oximetry 100 98 97 04/23/21 11:57 04/23/21 12:00 04/23/21 12:01 Temperature Pulse Rate 86 88 87 Respiratory Rate 21 H 20 14 Blood Pressure 181/96 H 162/114 H Pulse Oximetry 98 97 93 04/23/21 12:15 04/23/21 12:31 04/23/21 12:46 Temperature Pulse Rate 85 84 84 Respiratory Rate 15 25 H Blood Pressure Pulse Oximetry 98 99 100 04/23/21 13:02 04/23/21 13:15 04/23/21 13:30 Temperature Pulse Rate 87 85 85 Respiratory Rate 18 19 23 H Blood Pressure Pulse Oximetry 99 98 96 04/23/21 13:31 04/23/21 13:35 04/23/21 13:46 Temperature Pulse Rate 84 93 Respiratory Rate 15 22 H Blood Pressure 184/95 H Pulse Oximetry 96 98 96 04/23/21 14:00 04/23/21 14:01 04/23/21 14:15 Temperature Pulse Rate 87 86 87 Respiratory Rate 18 18 22 H Blood Pressure 189/98 H Pulse Oximetry 97 99 98 04/23/21 14:30 04/23/21 14:50 04/23/21 15:05 Temperature Pulse Rate 92 96 102 H Respiratory Rate 22 H 25 H 25 H Blood Pressure 198/112 H 186/112 H Pulse Oximetry 97 100 04/23/21 15:18 04/23/21 15:30 04/23/21 15:42 Temperature Pulse Rate 89 88 Respiratory Rate 17 25 H Blood P
[2021-04-24] MEDS: HEPARIN SODIUM 5,000 UNITS/ML VIAL 5000 UNITS SUB-Q ×2 (13:45→21:59)
[2021-04-24 14:34] LABS: Hematocrit 44.8 % (37.0-47.0); Hemoglobin 15.3 g/dL (12.0-15.0); Mean Corpuscular HGB Conc 34.2 g/dl (32-36); Mean Corpuscular Hemoglobin 27.3 pg (26-34); Mean Corpuscular Volume 79.9 fl (80-100); Mean Platelet Volume 8.8 fl (7.4-10.4); Platelet Count Result 101 k/mm3 (150-375); Red Blood Count 5.61 M/mm3 (4.2-5.4); White Blood Count 4.8 K/mm3 (4.5-10.0)
[2021-04-24] MEDS: DOCUSATE SODIUM 100 MG CAPSULE PO (23:20)
[2021-04-25] VITALS (16 sets, daily range): BP systolic 140–164; BP diastolic 57–83; PULSE 72–96; RESP 17–20; TEMP 36.3–36.9; O2SAT 83–95
[2021-04-25] MEDS: ISOSORBIDE MONONITRATE 30 MG TAB.ER.24H PO (09:24)
[2021-04-25] MEDS: METOPROLOL SUCCINATE EXT REL 25 MG TABCR PO (09:24)
[2021-04-25] MEDS: ATORVASTATIN 20 MG TABLET PO (09:24)
[2021-04-25] MEDS: FUROSEMIDE INJ 40 MG/4 ML VIAL IV PUSH ×2 (09:24→18:55)
[2021-04-25] MEDS: lisinopriL 20 MG TABLET 40 MG PO (09:25)
[2021-04-25] MEDS: hydrALAZINE HCL 25 MG TABLET 75 MG PO ×3 (09:25→18:55)
[2021-04-25] MEDS: ASPIRIN 81 MG CHEWABLE TABLET PO (09:25)
--- NOTE | 2021-04-25 09:41 | PM.IMPN ---
Progress Note: A&P Assessment and Plan (1) Acute exacerbation of CHF (congestive heart failure): Qualifiers: Heart failure type: unspecified Qualified Code(s): I50.9 - Heart failure, unspecified Code(s): I50.9 - Heart failure, unspecified Status: Acute Assessment and Plan: Associated with acute hypoxemic respiratory failure pulmonary edema and pleural effusion Continue with IV Lasix. Continue with metoprolol. The patient had a moderate pleural effusion. The patient did have a thoracentesis with removal of a 1000 mL. Most likely secondary to her congestive heart failure. Echo showed ejection fraction 20% with pulmonary hypertension Improved (2) Chronic kidney disease, stage 3b: Code(s): N18.32 - Chronic kidney disease, stage 3b Status: Acute Assessment and Plan: Continue to monitor. She is at her baseline. Monitor CMP daily (3) Chronic anemia: Code(s): D64.9 - Anemia, unspecified Status: Acute Assessment and Plan: Resolved (4) COPD with emphysema: Code(s): J43.9 - Emphysema, unspecified Status: Acute Assessment and Plan: Stable Continue with home inhalers. (5) Hypertension: Qualifiers: Hypertension type: essential hypertension Qualified Code(s): I10 - Essential (primary) hypertension Code(s): I10 - Essential (primary) hypertension Status: Chronic Assessment and Plan: Continue with lisinopril, metoprolol and hydralazine (6) Hyperlipidemia: Code(s): E78.5 - Hyperlipidemia, unspecified Status: Acute Assessment and Plan: Continue with atorvastatin (7) LINNETTE (iron deficiency anemia): Code(s): D50.9 - Iron deficiency anemia, unspecified Status: Acute Assessment and Plan: Stable Subjective Date/time seen: 04/25/21 09:41 Interval history: 75 years old female with past medical history of combined CHF COPD hyperlipidemia hypertension severe anemia chronic kidney disease stage 3 presented to the hospital with worsening shortness of breath chest x-ray was done showed pulmonary edema with pleural effusion patient has thoracentesis on 04/23/2021 with removal of 1 L of probably transudative fluid patient also has elevated troponin cardiology was consulted patient has lower extremity swelling Doppler of lower extremity was ordered was negative for DVT Patient feels weak short of breath still has lower extremity edema Patient denies fever headache chest pain I am seeing the patient for shortness of breath Exam Narrative: Alert Chest bilateral crackles Abdomen nontender nondistended CVS S1 + S2 Lower positive extremity edema Objective Data Vital Signs Vital Signs: Vital Signs - 24 hr 04/24/21 10:00 04/24/21 12:00 04/24/21 14:00 Temperature 96.9 F L Pulse Rate 92 77 79 Respiratory Rate 22 H Blood Pressure 139/69 Pulse Oximetry 94 04/24/21 16:00 04/24/21 18:00 04/24/21 20:00 Temperature 96.9 F L Pulse Rate 80 77 76 Respiratory Rate 20 Blood Pressure 153/76 H Pulse Oximetry 96 04/24/21 20:05 04/24/21 22:00 04/24/21 23:57 Temperature 97.4 F L 98.2 F Pulse Rate 80 72 73 Respiratory Rate 21 H 20 Blood Pressure 142/70 H 158/65 H Pulse Oximetry 91 94 04/25/21 00:00 04/25/21 02:00 04/25/21 03:52 Temperature 98.3 F Pulse Rate 74 73 76 Respiratory Rate 20 Blood Pressure 147/72 H Pulse Oximetry 95 04/25/21 04:00 04/25/21 06:00 04/25/21 08:00 Temperature 97.7 F Pulse Rate 76 82 79 Respiratory Rate 20 Blood Pressure 164/62 H Pulse Oximetry 83 L 04/25/21 09:24 Temperature Pulse Rate 80 Respiratory Rate Blood Pressure Pulse Oximetry Intake/Output Intake/Output: Intake & Output 04/22/21 04/23/21 04/24/21 04/25/21 23:59 23:59 23:59 23:59 Intake Total 1145 300 Output Total 1000 1450 550 Balance -1000 -305 -250 Meds/Results Medications: Active Medications Generic Name Dos
[2021-04-25 10:01] LABS: Eosinophils Absolute Auto 0.2 K/mm3 (0-0.3); Eosinophils Percent Auto 5.5 % (0-4.4); Hematocrit 49.4 % (37.0-47.0); Hemoglobin 16.5 g/dL (12.0-15.0); Immature Granulocyte Absolute 0.01 K/mm3 (0.00-0.031); Immature Granulocyte Percent A 0.2 % (0-0.5); Immature Platelet Fraction Pct 2.1 % (0.9-11.2); Lymphocytes Absolute Auto 0.67 K/mm3 (0.9-3.2); Lymphocytes Percent Auto 16.1 % (18.3-44.2); Mean Corpuscular HGB Conc 33.4 g/dl (32-36); Mean Corpuscular Hemoglobin 26.9 pg (26-34); Mean Corpuscular Volume 80.5 fl (80-100); Mean Platelet Volume 8.3 fl (7.4-10.4); Monocytes Absolute Auto 0.5 K/mm3 (0.1-0.6); Monocytes Percent Auto 10.8 % (2.6-8.5); Neutrophils Absolute Auto 2.8 K/mm3 (1.3-6.7); Neutrophils Percent Auto 66.4 % (45.5-73.1); Platelet Count Result 117 k/mm3 (150-375); Red Blood Count 6.14 M/mm3 (4.2-5.4); Red Cell Distribution Width 19.5 % (11.5-14.5); White Blood Count 4.2 K/mm3 (4.5-10.0)
[2021-04-25 10:13] LABS: Alanine Aminotransferase 16 U/L (4-35); Albumin Level 3.7 g/dL (3.5-5.1); Alkaline Phosphatase 104 U/L (38-126); Anion Gap 9 mmol/L (8-16); Aspartate Amino Transferase 31 U/L (14-36); Blood Urea Nitrogen 37 mg/dL (7-17); Calcium 8.6 mg/dL (8.4-10.2); Carbon Dioxide 26 mmol/L (22-30); Chloride 103 mmol/L (98-107); Estimated CRCL calculation 19 ml/min; Estimated Glomerular Filt Rate 33; Glucose 77 mg/dL (65-110); Potassium 4.3 mmol/L (3.4-5.0); Sodium 138 mmol/L (137-145)
[2021-04-25] MEDS: HEPARIN SODIUM 5,000 UNITS/ML VIAL 5000 UNITS SUB-Q ×2 (12:56→18:55)
--- NOTE | 2021-04-25 18:08 | PM.CNCAR ---
Assessment and Plan Assessment and plan (1) Acute on chronic combined systolic and diastolic CHF (congestive heart failure): Code(s): I50.43 - Acute on chronic combined systolic (congestive) and diastolic (congestive) heart failure Status: Acute Assessment and Plan: Admitted again with acute on chronic CHF. Patient recognizes symptoms but did not call for outpatient treatment. Apparently compliant with medications but is unhappy that she has to take so many medications. Blood pressure was poorly controlled on admission and has improved but still not at goal. She is diuresing and hopes to go home tomorrow but still has volume overload. Likely would benefit from another day or 2 of IV diuretics but the patient strongly desires to be discharged tomorrow. She does have room for improvement on her blood pressure and CHF medications; her hydralazine can be increased as can her isosorbide. We can switch her lisinopril to Entresto (if her insurance covers this). Jardiance or Farxiga (if covered by insurance) would be of benefit as well. Spironolactone can be an option as well if her renal function and potassium a followed closely. She likely will need a higher dose of diuretic on discharge.(She did have hyperkalemia when she had acute renal failure in September; her creatinine went up to 4.9 at the time.) However it is difficult to talk to Mrs. Allen about increasing medications as she is very unhappy with them. (2) Cardiomyopathy: Code(s): I42.9 - Cardiomyopathy, unspecified Status: Acute Assessment and Plan: Patient's ejection fraction has been up and down. She is at risk for sudden cardiac . She did wear LifeVest last summer but found it very uncomfortable. However she is aware that she is at risk for sudden cardiac . I have discussed the LifeVest and ICD implant to prevent sudden cardiac . She desires to have a LifeVest again. However she states that she, at this time, does not want an ICD. I have explained that the LifeVest is a bridge to ICD implant and she can not wear the LifeVest forever but she tells me ?1 step at a time. ? Thus I will order a Life Vest for her and we will discuss ICD implant in the outpatient setting. (3) Abnormal stress test: Code(s): R94.39 - Abnormal result of other cardiovascular function study Status: Acute Assessment and Plan: History of an abnormal stress test showing inferior wall ischemia. Suspected CAD. Never has had a cardiac catheterization because of concern she may develop acute renal failure with contrast exposure. No angina. Does take aspirin and atorvastatin for primary prevention. (4) Chronic kidney disease, stage 3b: Code(s): N18.32 - Chronic kidney disease, stage 3b Status: Acute Assessment and Plan: Stable despite IV diuresis. (5) Pleural effusion on right: Code(s): J90 - Pleural effusion, not elsewhere classified Status: Acute Assessment and Plan: Patient has recurrent right pleural effusion and has required 3 thoracenteses over the past year. Negative cytology in September. (6) Hypertension: Qualifiers: Hypertension type: essential hypertension Qualified Code(s): I10 - Essential (primary) hypertension Code(s): I10 - Essential (primary) hypertension Status: Chronic Assessment and Plan: Poorly controlled blood pressure. She is resigned to having high blood pressure since she has had her whole life. History of Present Illness History of Present Illness Consult date/time: 04/25/21 18:08 Requesting physician: Edita Villalpando M.A., MD Consult reason: congestive heart failure Reason For Visit: chf exacerbation,hypertensive urgency Narrative: Alina Allen is a 75-year-old female whom I was asked to see at the request of Dr. Villalpando for my advice and opinion
[2021-04-25] MEDS: MELATONIN 3 MG TABLET PO (21:48)
[2021-04-26] VITALS (19 sets, daily range): BP systolic 154–176; BP diastolic 68–85; PULSE 73–89; RESP 18–20; TEMP 35.9–36.9; O2SAT 83–99
--- NOTE | 2021-04-26 09:26 | PM.IMPN ---
Progress Note: A&P Assessment and Plan (1) Acute exacerbation of CHF (congestive heart failure): Qualifiers: Heart failure type: unspecified Qualified Code(s): I50.9 - Heart failure, unspecified Code(s): I50.9 - Heart failure, unspecified Status: Acute Assessment and Plan: Associated with acute hypoxemic respiratory failure pulmonary edema and pleural effusion DC IV Lasix started IV Bumex on 04/26/21. Continue with metoprolol. The patient had a moderate pleural effusion. The patient did have a thoracentesis with removal of a 1000 mL. Most likely secondary to her congestive heart failure. Echo showed ejection fraction 20% with pulmonary hypertension Plan for LifeVest on discharge possible AICD as outpatient and further ischemic workup as outpatient (2) Chronic kidney disease, stage 3b: Code(s): N18.32 - Chronic kidney disease, stage 3b Status: Acute Assessment and Plan: Continue to monitor. She is at her baseline. Monitor CMP daily (3) Chronic anemia: Code(s): D64.9 - Anemia, unspecified Status: Acute Assessment and Plan: Resolved (4) COPD with emphysema: Code(s): J43.9 - Emphysema, unspecified Status: Acute Assessment and Plan: Stable Continue with home inhalers. (5) Hypertension: Qualifiers: Hypertension type: essential hypertension Qualified Code(s): I10 - Essential (primary) hypertension Code(s): I10 - Essential (primary) hypertension Status: Chronic Assessment and Plan: Continue with lisinopril, metoprolol and hydralazine (6) Hyperlipidemia: Code(s): E78.5 - Hyperlipidemia, unspecified Status: Acute Assessment and Plan: Continue with atorvastatin (7) LINNETTE (iron deficiency anemia): Code(s): D50.9 - Iron deficiency anemia, unspecified Status: Acute Assessment and Plan: Stable Anticipate discharge in 2 days Subjective Date/time seen: 04/26/21 09:26 Interval history: 75 years old female with past medical history of combined CHF COPD hyperlipidemia hypertension severe anemia chronic kidney disease stage 3 presented to the hospital with worsening shortness of breath chest x-ray was done showed pulmonary edema with pleural effusion patient has thoracentesis on 04/23/2021 with removal of 1 L of probably transudative fluid patient also has elevated troponin cardiology was consulted patient has lower extremity swelling Doppler of lower extremity was ordered was negative for DVT Patient feels weak short of breath still has lower extremity edema DC Lasix started Bumex on 04/26/2021 Cardiology recommendation appreciated plan for cardiac MRI to rule out amyloidosis as outpatient Plan for LifeVest on discharge Patient need ischemic workup probably as outpatient Patient is noncompliant and she would like her blood pressure to be kept on the higher side Patient denies fever headache chest pain I am seeing the patient for shortness of breath Exam Narrative: Alert Chest bilateral crackles Abdomen nontender nondistended CVS S1 + S2 Lower positive extremity edema Objective Data Vital Signs Vital Signs: Vital Signs - 24 hr 04/25/21 10:00 04/25/21 12:00 04/25/21 14:00 Temperature 97.7 F Pulse Rate 82 73 77 Respiratory Rate 18 Blood Pressure 153/57 H Pulse Oximetry 87 L 04/25/21 16:00 04/25/21 18:00 04/25/21 20:00 Temperature 97.4 F L Pulse Rate 79 79 79 Respiratory Rate 18 Blood Pressure 140/71 Pulse Oximetry 91 04/25/21 20:10 04/25/21 22:00 04/25/21 23:05 Temperature 98.2 F 98.4 F Pulse Rate 76 73 76 Respiratory Rate 17 18 Blood Pressure 156/83 H 154/58 H Pulse Oximetry 91 91 04/26/21 00:00 04/26/21 02:00 04/26/21 03:05 Temperature 96.7 F L Pulse Rate 73 74 76 Respiratory Rate 20 Blood Pressure 174/68 H Pulse Oximetry 83 L 04/26/21 03:07 04/26/21 04:00 04/26/21 06:00 Temperature Pulse Rate 7
[2021-04-26] MEDS: ISOSORBIDE MONONITRATE 30 MG TAB.ER.24H PO (09:59)
[2021-04-26] MEDS: lisinopriL 20 MG TABLET 40 MG PO (09:59)
[2021-04-26] MEDS: hydrALAZINE HCL 25 MG TABLET 75 MG PO ×3 (10:00→17:24)
[2021-04-26] MEDS: ASPIRIN 81 MG CHEWABLE TABLET PO (10:00)
[2021-04-26] MEDS: METOPROLOL SUCCINATE EXT REL 25 MG TABCR PO (10:01)
[2021-04-26] MEDS: ATORVASTATIN 20 MG TABLET PO (10:02)
[2021-04-26] MEDS: HEPARIN SODIUM 5,000 UNITS/ML VIAL 5000 UNITS SUB-Q ×2 (10:02→17:24)
--- NOTE | 2021-04-26 11:50 | PM.PNCARD ---
Progress Note: A&P Assessment and Plan (1) Acute on chronic combined systolic and diastolic CHF (congestive heart failure): Code(s): I50.43 - Acute on chronic combined systolic (congestive) and diastolic (congestive) heart failure Status: Acute Assessment and Plan: Admitted again with acute on chronic CHF. Patient recognizes symptoms but did not call for outpatient treatment. Apparently compliant with medications but is unhappy that she has to take so many medications. Blood pressure was poorly controlled on admission and has improved but still not at goal. However it is difficult to talk to Mrs. Allen about increasing medications as she is very unhappy with them. She does have room for improvement on her blood pressure and CHF medications; her hydralazine can be increased as can her isosorbide. We can switch her lisinopril to Entresto (if her insurance covers this). Jardiance or Farxiga (if covered by insurance) would be of benefit as well. Spironolactone can be an option as well if her renal function and potassium a followed closely. She likely will need a higher dose of diuretic on discharge. (She did have hyperkalemia when she had acute renal failure in September; her creatinine went up to 4.9 at the time.) Pt receeptive to changing lisinopril to Entresto Pt receptive to adding Farxiga/Jardiance Diuretic changed to Bumex Hopes to be discharged tmr Reviewed signs and symptoms of CHF relapse and strongly encouraged patient to call when she gains weight, develops edema etc.. (2) Cardiomyopathy: Code(s): I42.9 - Cardiomyopathy, unspecified Status: Acute Assessment and Plan: Patient's ejection fraction has been up and down. She is at risk for sudden cardiac . She did wear LifeVest last summer but found it very uncomfortable. She desires to have a LifeVest again. I have reviewed that the LifeVest is a bridge to ICD implant and she is interested in pursuing an elective ICD implant. Thus I will order a Life Vest for her and pursue ICD implant in the outpatient setting. (3) Abnormal stress test: Code(s): R94.39 - Abnormal result of other cardiovascular function study Status: Acute Assessment and Plan: History of an abnormal stress test showing inferior wall ischemia. Suspected CAD. Never has had a cardiac catheterization because of concern she may develop acute renal failure with contrast exposure. No angina. Does take aspirin and atorvastatin for primary prevention. (4) Chronic kidney disease, stage 3b: Code(s): N18.32 - Chronic kidney disease, stage 3b Status: Acute Assessment and Plan: Stable despite IV diuresis. BMP in a.m. (5) Pleural effusion on right: Code(s): J90 - Pleural effusion, not elsewhere classified Status: Acute Assessment and Plan: Patient has recurrent right pleural effusion and has required 3 thoracenteses over the past year. Negative cytology in September. Increase diuretic therapy as OPT. (6) Hypertension: Qualifiers: Hypertension type: essential hypertension Qualified Code(s): I10 - Essential (primary) hypertension Code(s): I10 - Essential (primary) hypertension Status: Chronic Assessment and Plan: Poorly controlled blood pressure. She is resigned to having high blood pressure since she has had her whole life. Subjective Date/time seen: 04/26/21 11:50 Interval history: Follow-up for CHF and cardiomyopathy. EF 20-25%. Uncontrolled HTN. This is the patient's 3rd admission this year for CHF and recurrent left pleural effusion. Her blood pressures been poorly controlled and she is reluctant to increase her medications, feeling like she is taking too many already. Date of service 04/26/2021: Breathing is good. Legs still swollen. Urinating more than usual. Pt
[2021-04-26] MEDS: BUMETANIDE INJ 1 MG/4 ML VIAL IV PUSH (17:24)
[2021-04-26] MEDS: MELATONIN 3 MG TABLET PO (21:35)
[2021-04-27] VITALS (13 sets, daily range): BP systolic 152–169; BP diastolic 61–81; PULSE 74–83; RESP 18–22; TEMP 36.4–37.1; O2SAT 92–95
[2021-04-27 05:19] LABS: Anion Gap 7 mmol/L (8-16); Blood Urea Nitrogen 35 mg/dL (7-17); Calcium 8.3 mg/dL (8.4-10.2); Carbon Dioxide 28 mmol/L (22-30); Chloride 101 mmol/L (98-107); Estimated CRCL calculation 20 ml/min; Estimated Glomerular Filt Rate 35; Glucose 78 mg/dL (65-110); Potassium 3.9 mmol/L (3.4-5.0); Sodium 136 mmol/L (137-145)
[2021-04-27] MEDS: ATORVASTATIN 20 MG TABLET PO (08:54)
[2021-04-27] MEDS: ASPIRIN 81 MG CHEWABLE TABLET PO (08:54)
[2021-04-27] MEDS: EMPAGLIFLOZIN 10 MG TABLET PO (08:54)
[2021-04-27] MEDS: DOCUSATE SODIUM 100 MG CAPSULE PO (08:54)
[2021-04-27] MEDS: METOPROLOL SUCCINATE EXT REL 25 MG TABCR PO (08:54)
[2021-04-27] MEDS: HEPARIN SODIUM 5,000 UNITS/ML VIAL 5000 UNITS SUB-Q ×2 (08:55→16:59)
[2021-04-27] MEDS: hydrALAZINE HCL 25 MG TABLET 75 MG PO ×3 (08:55→16:58)
[2021-04-27] MEDS: ISOSORBIDE MONONITRATE 30 MG TAB.ER.24H PO (08:55)
[2021-04-27] MEDS: BUMETANIDE INJ 1 MG/4 ML VIAL IV PUSH ×3 (08:55→16:59)
--- NOTE | 2021-04-27 10:17 | PM.PNCARD ---
Progress Note: A&P Assessment and Plan (1) Acute on chronic combined systolic and diastolic CHF (congestive heart failure): Code(s): I50.43 - Acute on chronic combined systolic (congestive) and diastolic (congestive) heart failure Status: Acute Assessment and Plan: Admitted again with acute on chronic CHF. Patient recognizes symptoms but did not call for outpatient treatment. Apparently compliant with medications but is unhappy that she has to take so many medications. Blood pressure was poorly controlled on admission and has improved but still not at goal. However it is difficult to talk to Mrs. Allen about increasing medications as she is very unhappy with them. She does have room for improvement on her blood pressure and CHF medications; her hydralazine can be increased as can her isosorbide. We can switch her lisinopril to Entresto (if her insurance covers this). Jardiance or Farxiga (if covered by insurance) would be of benefit as well. Spironolactone can be an option as well if her renal function and potassium a followed closely. She likely will need a higher dose of diuretic on discharge. (She did have hyperkalemia when she had acute renal failure in September; her creatinine went up to 4.9 at the time.) Pt receptive to changing lisinopril to Entresto Pt receptive to adding Farxiga/Jardiance Diuretic changed to Bumex Will increase her metoprolol succinate to 50 mg daily Reviewed signs and symptoms of CHF relapse and strongly encouraged patient to call when she gains weight, develops edema etc.. Will repeat a chest x-ray today as her effusion is likely worse Will give her an extra dose of bumetanide 1 mg IV times 1 (2) Cardiomyopathy: Code(s): I42.9 - Cardiomyopathy, unspecified Status: Acute Assessment and Plan: Patient's ejection fraction has been up and down. She is at risk for sudden cardiac . She did wear LifeVest last summer but found it very uncomfortable. She desires to have a LifeVest again. I have reviewed that the LifeVest is a bridge to ICD implant and she is interested in pursuing an elective ICD implant. Anchors her to have further ischemic workup. Suspect will more ischemia but she does not want a catheterization (3) Abnormal stress test: Code(s): R94.39 - Abnormal result of other cardiovascular function study Status: Acute Assessment and Plan: History of an abnormal stress test showing inferior wall ischemia. Suspected CAD. Never has had a cardiac catheterization because of concern she may develop acute renal failure with contrast exposure. No angina. Does take aspirin and atorvastatin for primary prevention. (4) Chronic kidney disease, stage 3b: Code(s): N18.32 - Chronic kidney disease, stage 3b Status: Acute Assessment and Plan: Stable despite IV diuresis. BMP in a.m. (5) Pleural effusion on right: Code(s): J90 - Pleural effusion, not elsewhere classified Status: Acute Assessment and Plan: Patient has recurrent right pleural effusion and has required 3 thoracenteses over the past year. Negative cytology in September. Increase diuretic therapy as OPT. (6) Hypertension: Qualifiers: Hypertension type: essential hypertension Qualified Code(s): I10 - Essential (primary) hypertension Code(s): I10 - Essential (primary) hypertension Status: Chronic Assessment and Plan: Poorly controlled blood pressure. She is resigned to having high blood pressure since she has had her whole life. Subjective Date/time seen: 04/27/21 10:17 Interval history: Follow-up for CHF and cardiomyopathy. EF 20-25%. Uncontrolled HTN. This is the patient's 3rd admission this year for CHF and recurrent left pleural effusion. Her blood pressures been poorly controlled and she is reluctant t
--- NOTE | 2021-04-27 11:19 | PM.IMPN ---
Progress Note: A&P Assessment and Plan (1) Acute exacerbation of CHF (congestive heart failure): Qualifiers: Heart failure type: unspecified Qualified Code(s): I50.9 - Heart failure, unspecified Code(s): I50.9 - Heart failure, unspecified Status: Acute Assessment and Plan: Associated with acute hypoxemic respiratory failure pulmonary edema and pleural effusion DC IV Lasix started IV Bumex on 04/26/21 cardiology recommendation appreciated extra dose of Bumex on 04/27/2021 and repeat chest x-ray. Continue with metoprolol. The patient had a moderate pleural effusion. The patient did have a thoracentesis with removal of a 1000 mL. Most likely secondary to her congestive heart failure. Echo showed ejection fraction 20% with pulmonary hypertension Plan for LifeVest on discharge possible AICD as outpatient and further ischemic workup as outpatient (2) Chronic kidney disease, stage 3b: Code(s): N18.32 - Chronic kidney disease, stage 3b Status: Acute Assessment and Plan: Continue to monitor. She is at her baseline. Monitor CMP daily (3) Chronic anemia: Code(s): D64.9 - Anemia, unspecified Status: Acute Assessment and Plan: Resolved (4) COPD with emphysema: Code(s): J43.9 - Emphysema, unspecified Status: Acute Assessment and Plan: Stable Continue with home inhalers. (5) Hypertension: Qualifiers: Hypertension type: essential hypertension Qualified Code(s): I10 - Essential (primary) hypertension Code(s): I10 - Essential (primary) hypertension Status: Chronic Assessment and Plan: Continue with lisinopril, metoprolol and hydralazine (6) Hyperlipidemia: Code(s): E78.5 - Hyperlipidemia, unspecified Status: Acute Assessment and Plan: Continue with atorvastatin (7) LINNETTE (iron deficiency anemia): Code(s): D50.9 - Iron deficiency anemia, unspecified Status: Acute Assessment and Plan: Stable Anticipate discharge in 2 days Subjective Date/time seen: 04/27/21 11:19 Interval history: 75 years old female with past medical history of combined CHF COPD hyperlipidemia hypertension severe anemia chronic kidney disease stage 3 presented to the hospital with worsening shortness of breath chest x-ray was done showed pulmonary edema with pleural effusion patient has thoracentesis on 04/23/2021 with removal of 1 L of probably transudative fluid patient also has elevated troponin cardiology was consulted patient has lower extremity swelling Doppler of lower extremity was ordered was negative for DVT Patient feels weak short of breath still has lower extremity edema DC Lasix started Bumex on 04/26/2021 was given extra dose of Bumex on 04/27/2021 Cardiology recommendation appreciated plan for cardiac MRI to rule out amyloidosis as outpatient Plan for LifeVest on discharge Patient need ischemic workup probably as outpatient patient has concern over renal failure due to contrast exposure high she have history of chronic renal failure Patient is noncompliant and she would like her blood pressure to be kept on the higher side Plan to repeat chest x-ray today Patient denies fever headache chest pain I am seeing the patient for shortness of breath Exam Narrative: Alert Chest bilateral crackles better Abdomen nontender nondistended CVS S1 + S2 Lower positive extremity edema still have significant lower extremity edema Objective Data Vital Signs Vital Signs: Vital Signs - 24 hr 04/26/21 12:00 04/26/21 13:22 04/26/21 14:00 Temperature 97.7 F Pulse Rate 74 75 74 Respiratory Rate 20 Blood Pressure 160/73 H Pulse Oximetry 94 94 04/26/21 16:00 04/26/21 17:12 04/26/21 18:00 Temperature 98.2 F Pulse Rate 79 81 89 Respiratory Rate 20 Blood Pressure 159/68 H Pulse Oximetry 94 94 04/26/21 20:00 04/26/21 22:00 04/26/21 23:44 Temperature 98.4 F Pulse Rate 81 82 Resp
[2021-04-27] MEDS: ALBUMIN HUMAN 25% 25 GM/100 ML 100 ML IVPB (14:38)
--- NOTE | 2021-04-27 18:19 | PC.NURSE ---
Patient signed out AMA. Hospitalist notified. Patient departed per wheelchair with lifevest on. Respirations easy on room air. IV catheter removed intact. Lifevest education provided per Lifevest provider today. Patient denies questions on Lifevest use. Patient encouraged to stay until discharged. Notified that leaving AMA at this time may result in . Patient acknowledges the risks. Encouraged to follow up with primary care as soon as possible and encouraged to keep goodwill ambassador appointment. Patient denies questions/concerns.
--- NOTE | 2021-04-27 23:03 | PM.DS ---
DS: Admitting Diagnosis Discharge Date 04/27/21 Admitting Diagnosis Shortness of breath DS: Discharge Diagnosis Discharge Diagnosis (1) Acute exacerbation of CHF (congestive heart failure): Qualifiers: Heart failure type: unspecified Qualified Code(s): I50.9 - Heart failure, unspecified Code(s): I50.9 - Heart failure, unspecified Status: Acute Assessment and Plan: Associated with acute hypoxemic respiratory failure pulmonary edema and pleural effusion DC IV Lasix started IV Bumex on 04/26/21 cardiology recommendation appreciated extra dose of Bumex on 04/27/2021 and repeat chest x-ray. Continue with metoprolol. The patient had a moderate pleural effusion. The patient did have a thoracentesis with removal of a 1000 mL. Most likely secondary to her congestive heart failure. Echo showed ejection fraction 20% with pulmonary hypertension Plan for LifeVest on discharge possible AICD as outpatient and further ischemic workup as outpatient (2) Chronic kidney disease, stage 3b: Code(s): N18.32 - Chronic kidney disease, stage 3b Status: Acute Assessment and Plan: Continue to monitor. She is at her baseline. Monitor CMP daily (3) Chronic anemia: Code(s): D64.9 - Anemia, unspecified Status: Acute Assessment and Plan: Resolved (4) COPD with emphysema: Code(s): J43.9 - Emphysema, unspecified Status: Acute Assessment and Plan: Stable Continue with home inhalers. (5) Hypertension: Qualifiers: Hypertension type: essential hypertension Qualified Code(s): I10 - Essential (primary) hypertension Code(s): I10 - Essential (primary) hypertension Status: Chronic Assessment and Plan: Continue with lisinopril, metoprolol and hydralazine (6) Hyperlipidemia: Code(s): E78.5 - Hyperlipidemia, unspecified Status: Acute Assessment and Plan: Continue with atorvastatin (7) LINNETTE (iron deficiency anemia): Code(s): D50.9 - Iron deficiency anemia, unspecified Status: Acute Assessment and Plan: Stable Anticipate discharge in 2 days DS: Summary Hospital Course Hospital Course: Patient left AMA C discharge diagnosis for details Time Spent with Patient Time attestation: Total time spent providing and/or coordinating discharge services: Exam Narrative: Alert Chest bilateral crackles better Abdomen nontender nondistended CVS S1 + S2 Lower positive extremity edema still have significant lower extremity edema Discharge Plan Discharge Consulting providers: Jacquelin Yanes ; Valerie Katz ; Radu Nolen ; Emigdio Grey ; Jorge Cornejo ; Gael Steward ; Aníbal Hdz V. Patient Disposition: Left Against Medical Advice Discharge Instructions: Per Care Coordination. Patient to have [facility] RN for CHF teaching and PT/OT eval and treat. P: [phone] RN please fax discharge instructions to F: [phone] Patient Instructions: Antibiotic Form Stand Alone Forms: General Discharge Information Follow-up/Referrals: Aretha Araujo APN-C [Advanced Practice Nurse] - (Your appointment is on 05/27/21 at 11:00. Please arrive at 10:45. ) Discharge Medications: No Action zolpidem 5 mg tablet 5 mg PO HS PRN (Reason: Insomnia) RF: 0 aspirin 81 mg Tablet 81 mg PO DAILY RF: 0 atorvastatin 20 mg Tablet 20 mg PO DAILY Qty: 30 RF: 0 melatonin 3 mg Tablet 3 mg PO 2300 Qty: 30 RF: 0 metoprolol succinate [Toprol XL] 25 mg Tablet Extended Release 24 Hr 25 mg PO QAM Qty: 30 RF: 0 isosorbide mononitrate 30 mg tablet extended release 24 hr 30 mg PO DAILY Qty: 30 RF: 0 furosemide 40 mg Tablet 40 mg PO BID Qty: 60 RF: 0 hydralazine 25 mg Tablet 75 mg PO TIDWM Qty: 90 RF: 0 albuterol sulfate 90 mcg/actuation Hfa Aerosol Inhaler 2 puff INHALATION QID PRN (Reason: Dyspnea) RF: 0 lisinopril 20 mg tablet 40 mg PO DAILY
== END 2021-04-27 17:00 | disposition left against medical advice (07) | DRG 291 ==
LOC: ANHED 11:52 → ANHIMU 15:17
PROVIDERS: Internal Medicine Cardiovascular Disease; Nurse Practitioner; Admitting Provider Internal Medicine; Emergency Provider Emergency Medicine; PCP Family Medicine; Visit Provider Internal Medicine
DX: I13.0 Hypertensive heart and chronic kidney disease with heart failure and stage 1 through stage 4 chronic kidney disease, or unspecified chronic kidney disease (principal); I50.43 Acute on chronic combined systolic (congestive) and diastolic (congestive) heart failure; J90 Pleural effusion, not elsewhere classified; I16.0 Hypertensive urgency; N18.32 Chronic kidney disease, stage 3b; E78.5 Hyperlipidemia, unspecified; D50.9 Iron deficiency anemia, unspecified; J43.9 Emphysema, unspecified; I73.9 Peripheral vascular disease, unspecified; I25.10 Atherosclerotic heart disease of native coronary artery without angina pectoris; I25.5 Ischemic cardiomyopathy; Z87.891 Personal history of nicotine dependence; Z20.822 Contact with and (suspected) exposure to COVID-19
CPT/HCPCS: 32555; 36415; 71046; 80048; 80053; 82728; 83605; 83615; 83735; 83880; 84443; 84484; 85025; 85027; 85055; 85610; 85730; 93005; 93306; 93970; 96374; 96375; 96376; 99285; A9270; C9803; G0378; J0360; J1644; J1940; P9047; U0003; U0005

== ENCOUNTER 2022-05-16 13:47 | Emergency (ER) | payer BC, SELFPAY ==
--- NOTE | ~2022-05-16 | CT_ITS ---
Non-contrast CT scan of the Abdomen and Pelvis Clinical indication: Abdominal pain Technique: 5 mm axial scans were obtained through the abdomen and pelvis without intravenous or oral contrast. Dose reduction technique was used on this scan by utilizing automated exposure control and iterative reconstruction technique. The dose-length product (DLP) was 194.14 mGy-cm. COMPARISON: 09/11/2020 Findings: Images through the lung bases reveal [id number] right pleural effusion. There is pr obable moderate emphysema. Questionable nonobstructing renal stones versus renal vascular calcifications. The liver, spleen, pancreas, and adrenals appear normal. Calcified gallstones are present, with suspe cted mild gallbladder wall thickening. There is extensive atherosclerotic calcification of the upper abdominal aorta, the SMA, proximal renal arteries. Probable aortoiliac graft present. There is no evidence of bowel obstruction. Images through the pelvis were performed. There is small amount of pelvic ascites, nonspecific. Urina ry bladder unremarkable. Calcified fibroids are present. Impression: Cholelithiasis and suspected gallbladder wall thickening. Correlate for acute cholecystitis. Consider HIDA scan as indicated. [id number] right pleural effusion. Moderate emphysema. Extensive atherosclerotic calcification with probable aortoiliac graft present. Correlate with surgic al history. Small amount of pelvic ascites, nonspecific. Probable renal vascular calcifications versus nonobstructing renal stones. Reviewed, dictated and finalized at [facility]. 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 Correlate for acute c holecystitis. Consider HIDA scan as indicated. Livxg-bz-pulyqioh right pleural effusion. Moderate emphysema. Extensive atherosclerotic calcification with probable aortoiliac graft present. Correlate with surgical history. Small amount of pelvic ascites, nonspecific. Probable renal vascular calcifications versus nonobstructing renal stones.
[2022-05-16 14:12] VITALS: BP 161/46; PULSE 78; RESP 16; TEMP 36.6; O2SAT 100
[2022-05-16 16:52] LABS: Basophils Percent Auto 0.8 % (0.2-1.2); Eosinophils Absolute Auto 0.2 K/mm3 (0-0.3); Eosinophils Percent Auto 3.1 % (0-4.4); Hemoglobin 11.6 g/dL (12.0-15.0); Immature Granulocyte Absolute 0.05 K/mm3 (0.00-0.031); Lymphocytes Absolute Auto 0.53 K/mm3 (0.9-3.2); Lymphocytes Percent Auto 10.2 % (18.3-44.2); Mean Corpuscular HGB Conc 36.3 g/dl (32-36); Mean Corpuscular Hemoglobin 29.4 pg (26-34); Monocytes Absolute Auto 0.4 K/mm3 (0.1-0.6); Monocytes Percent Auto 8.4 % (2.6-8.5); Neutrophils Percent Auto 76.5 % (45.5-73.1); Platelet Count Result 133 k/mm3 (150-375); Red Blood Count 3.95 M/mm3 (4.2-5.4); Red Cell Distribution Width 15.8 % (11.5-14.5); White Blood Count 5.2 K/mm3 (4.5-10.0)
[2022-05-16 16:53] LABS: Appearance Urine Clear (Clear); Bilirubin Urine Negative (Negative); Blood Urine Trace-intact (Negative); Color Urine Yellow (Yellow); Glucose Urine UA Negative (Negative); Ketones Urine Negative (Negative); Leukocyte Esterase Ur Negative LEU/UL (Negative); Nitrate Urine Negative (Negative); Protein Urine 3+ mg/dL (Negative); pH Urine 8.5 (5.0-9.0)
[2022-05-16 16:58] LABS: Bacteria Urine Trace /hpf; Mucus Urine Rare /lpf; Squamous Epithelial Cell Urine Occasional /hpf (Few)
[2022-05-16 16:59] LABS: Add Urine Microscopic? YES
--- NOTE | 2022-05-16 17:03 | ED.NAVMDI ---
HPI - Nausea/Vomiting/Diarrhea General Chief complaint: Nausea/Vomiting/Diarrhea Stated complaint: vomiting x 2 hours Time Seen by Provider: 05/16/22 15:59 Source: patient, RN notes reviewed and old records reviewed Mode of arrival: wheelchair Limitations: no limitations History of Present Illness HPI Narrative: This is a 76 year old female with history of ESRD on dialysis, hypertension, and hyperlipidemia who presents for evaluation of vomiting and diarrhea. Patient states that she felt fine when she got up this morning. She was able to go do her daily shopping. She later developed nausea and vomiting. She also reports having lower abdominal pain. This pain was constant and it gradually worsened through out the day. She also reports having brown diarrhea. Her pain resolved on her arrival to ER. She denies fever or chills. She denies any urinary complaints. Her last dialysis was on Tuesday. [employer] Tender is Dr. Motley. Related Data Home Medications Medication Instructions Recorded Confirmed aspirin 81 mg tablet 81 mg PO DAILY 05/10/20 04/23/21 zolpidem 5 mg tablet 5 mg PO HS PRN Insomnia 05/10/20 04/23/21 albuterol sulfate 90 mcg/actuation 2 puff inhalation QID PRN Dyspnea 04/23/21 aerosol inhaler lisinopril 20 mg tablet 40 mg PO DAILY 04/23/21 04/23/21 Allergies Allergy/AdvReac Type Severity Reaction Status Date / Time Penicillins Allergy Unknown Unknown Verified 05/16/22 16:43 Review of Systems Constitutional: Constitutional: Denies weakness Cardiovascular: Cardiovascular: Denies syncope, Denies rapid heart rate, Denies irregular heart rhythm, Denies leg edema and Denies dyspnea Respiratory: Respiratory: Denies chest congestion, Denies hemoptysis, Denies excessive phlegm production and Denies dyspnea Gastrointestinal: Gastrointestinal: Reports abdominal pain, Denies hematochezia, Reports diarrhea, Reports nausea and Reports vomiting Genitourinary: Genitourinary: Denies hematuria and Denies dysuria Musculoskeletal: Musculoskeletal: Denies joint swelling, Denies loss of height and Denies muscle weakness Neurologic: Denies syncope, Denies focal weakness and Denies weakness PMFSH Past Medical History Medical History Cardiomyopathy Presumed ischemic with moderately sized moderately severe reversible defect and small mild non reversible infarct on Lexiscan stress on 09/12/2020. Chronic anemia History of blood transfusion. Chronic kidney disease, stage 3b Baseline creatinine ranges between 1.4 and 1.90. Combined systolic and diastolic congestive heart failure Echocardiogram on 09/10/2020 EF of 20 to 25%, grade 1 diastolic dysfunction, reduced RV systolic function. 12/2020 echo EF 40-46% with segmental wall motion abnormalities COPD with emphysema Hyperlipidemia Hypertension Peripheral arterial disease Severe anemia Surgical History Surgical History History of colonoscopy History of colon polyps, internal hemorrhoids, and diverticulosis. History of esophagogastroduodenoscopy History of gastric erosions, gastric polyps, and duodenal AVMs. History of revascularization procedure of lower extremity (10/2019) Bilateral lower extremity stents per Dr. Carrillo. History of vascular surgery (06/12/13) Aorto bi-iliac bypass graft per Dr. Carrillo. Family History Family History Mother Alzheimer disease Father Emphysema of lung Social History Social History Social History: and lives with her son. 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 Smoked up to a pack of cigarettes a day for nearly 60 years and quit in September 2020. Drinks a beer or two on social occasions. No illicit drug use. She designates her son, Dhaval Allen, as her surrogate dec
[2022-05-16 17:05] LABS: Anion Gap 5 mmol/L (8-16); Blood Urea Nitrogen 14 mg/dL (7-17); Carbon Dioxide 30 mmol/L (22-30); Chloride 102 mmol/L (98-107); Estimated CRCL calculation 12 ml/min; Potassium 3.7 mmol/L (3.4-5.0); Sodium 137 mmol/L (137-145)
[2022-05-16 17:06] LABS: Alanine Aminotransferase 32 U/L (6-35); Albumin Level 3.6 g/dL (3.5-5.1); Alkaline Phosphatase 170 U/L (38-126); Aspartate Amino Transferase 33 U/L (14-36); Calcium 8.3 mg/dL (8.4-10.2); Estimated Glomerular Filt Rate 21; Glucose 85 mg/dL (65-110); Lipase 158 U/L (23-300)
== END 2022-05-16 18:46 | disposition home or self-care (01) ==
PROVIDERS: Emergency Medicine; Emergency Provider General Practice; PCP Family Medicine
DX: K52.9 Noninfective gastroenteritis and colitis, unspecified (principal); I13.2 Hypertensive heart and chronic kidney disease with heart failure and with stage 5 chronic kidney disease, or end stage renal disease; N18.6 End stage renal disease; I50.40 Unspecified combined systolic (congestive) and diastolic (congestive) heart failure; D64.9 Anemia, unspecified; E78.5 Hyperlipidemia, unspecified; I42.9 Cardiomyopathy, unspecified; I73.9 Peripheral vascular disease, unspecified; J43.9 Emphysema, unspecified; Z99.2 Dependence on renal dialysis; Z87.891 Personal history of nicotine dependence; K80.20 Calculus of gallbladder without cholecystitis without obstruction
CPT/HCPCS: 36415; 74176; 80053; 81001; 83690; 85025; 99284

== ENCOUNTER 2022-12-07 16:56 | Observation (INO) | payer BC, SELFPAY ==
[2022-12-07] VITALS (7 sets, daily range): BP systolic 147–174; BP diastolic 50–94; PULSE 70–77; RESP 14–22; TEMP 36.6; O2SAT 94–100
--- NOTE | ~2022-12-07 | XR_ITS ---
EXAMINATION: XR chest 2V Exam Date/Time: 12/07/2022 17:50 CDT HISTORY: SHORT OF BREATH, COUGH Comparison: 04/27/2021. RESULT: Lines, tubes, and devices: Surgical clips over the mid upper abdomen. Coronary artery stents. Lungs and pleura: Trace left and mild right costophrenic angle blunting. Patchy subsegmental bibasil ar opacities Diffuse reticular opacities. No focal consolidation. Cardiomediastinal silhouette: Stable. Other: No acute osseous or upper abdominal finding. IMPRESSION: Mild interstitial edema. Small right and trace left pleural effusions. Bibasilar atelectasis. Infecti on is not excluded. Reviewed, dictated and finalized at location [facility]. IMPRESSION: Mild interstitial edema. Small right and trace left pleural effusions. Bibasila r atelectasis. Infection is not excluded.
--- NOTE | 2022-12-07 17:12 | ECG_ITS ---
Measurements Intervals [place] Rate: 62 P: 64 TX: 163 QRS: 59 QRSD: 76 T: 29 QT: 371 QTc: 380 Interpretive Statements SINUS RHYTHM WITH OCCASIONAL SUPRAVENTRICULAR PREMATURE COMPLEXES LOW QRS VOLTAGE IN PRECORDIAL LEADS [QRS DEFLECTION < 1.0 mV IN CHEST LEADS] ANTEROSEPTAL MYOCARDIAL INFARCTION , OF INDETERMINATE AGE [40+ ms Q WAVE IN V1-V4] NONSPECIFIC ST AND T-WAVE ABNORMALITY ABNORMAL ECG COMPARED TO ECG 04/23/2021 09:35:03 SINUS RHYTHM NOW PRESENT Electronically Signed On 12-08-2022 9:15:45 CDT by Emigdio Grey M.D.
[2022-12-07 17:59] LABS: Basophils Percent Auto 0.3 % (0.2-1.2); Eosinophils Absolute Auto 0.2 K/mm3 (0-0.3); Eosinophils Percent Auto 3.3 % (0-4.4); Hematocrit 23.5 % (37.0-47.0); Hemoglobin 8.6 g/dL (12.0-15.0); Immature Granulocyte Absolute 0.02 K/mm3 (0.00-0.031); Immature Granulocyte Percent A 0.3 % (0-0.5); Lymphocytes Absolute Auto 0.55 K/mm3 (0.9-3.2); Lymphocytes Percent Auto 8.6 % (18.3-44.2); Mean Corpuscular HGB Conc 36.6 g/dl (32-36); Mean Corpuscular Hemoglobin 29.4 pg (26-34); Mean Corpuscular Volume 80.2 fl (80-100); Mean Platelet Volume 9.4 fl (7.4-10.4); Monocytes Absolute Auto 0.4 K/mm3 (0.1-0.6); Monocytes Percent Auto 6.4 % (2.6-8.5); Neutrophils Absolute Auto 5.2 K/mm3 (1.3-6.7); Neutrophils Percent Auto 81.1 % (45.5-73.1); Platelet Count Result 132 k/mm3 (150-375); Red Blood Count 2.93 M/mm3 (4.2-5.4); Red Cell Distribution Width 16.9 % (11.5-14.5); White Blood Count 6.4 K/mm3 (4.5-10.0)
--- NOTE | 2022-12-07 18:00 | ED.SOB ---
HPI - SOB/Dyspnea General Chief Complaint: Shortness of Breath/Dyspnea Stated Complaint: SOB, missed dialysis Time Seen by Provider: 12/07/22 17:18 Source: patient and old records reviewed Mode of arrival: EMS Limitations: no limitations History of Present Illness HPI Narrative: Patient is a 76-year-old female, with PMH of ESRD, who presents to the ED via EMS with report of shortness of breath. Patient reports she has been increasingly short of breath over the last 2 days, worse today. She states shortness of breath is worse with laying flat and with exertion. She also reports feeling increasingly weak and having a cough, congestion, increased mucus over the last couple of days. She denies any known sick contacts. Denies any fever or sore throat. Denies chest pain. Denies lower extremity swelling. She did miss her dialysis appointment this morning due to feeling weak and short of breath. She receives dialysis Tuesdays, , Saturdays. Her department helper is Dr. Motley. Patient does also mention having abdominal discomfort and gas pains today. She ate chicken gizzards from [facility] today. Denies diarrhea, constipation, nausea, vomiting. Related Data Home Medications Medication Instructions Recorded Confirmed aspirin 81 mg tablet 81 mg PO DAILY 05/10/20 04/23/21 zolpidem 5 mg tablet 5 mg PO HS PRN Insomnia 05/10/20 04/23/21 albuterol sulfate 90 mcg/actuation 2 puff inhalation QID PRN Dyspnea 04/23/21 aerosol inhaler lisinopril 20 mg tablet 40 mg PO DAILY 04/23/21 04/23/21 Allergies Allergy/AdvReac Type Severity Reaction Status Date / Time Penicillins Allergy Unknown Unknown Verified 12/07/22 17:10 Review of Systems Review of Systems: CONSTITUTIONAL: Reports generalized weakness. Denies fever, chills, or sweats. ENT: See HPI. CARDIOVASCULAR: Denies chest pain, palpitations, or edema. RESPIRATORY: See HPI. GASTROINTESTINAL: See HPI. GENITOURINARY: Denies dysuria or hematuria. MUSCULOSKELETAL: Denies back pain, joint pain, or myalgia. All systems reviewed & are unremarkable except as noted in HPI and below PMFSH Past Medical History Medical History Cardiomyopathy Presumed ischemic with moderately sized moderately severe reversible defect and small mild non reversible infarct on Lexiscan stress on 09/12/2020. Chronic anemia History of blood transfusion. Chronic kidney disease, stage 3b Baseline creatinine ranges between 1.4 and 1.90. Combined systolic and diastolic congestive heart failure Echocardiogram on 09/10/2020 EF of 20 to 25%, grade 1 diastolic dysfunction, reduced RV systolic function. 12/2020 echo EF 40-46% with segmental wall motion abnormalities COPD with emphysema Hyperlipidemia Hypertension Peripheral arterial disease Severe anemia Surgical History Surgical History History of colonoscopy History of colon polyps, internal hemorrhoids, and diverticulosis. History of esophagogastroduodenoscopy History of gastric erosions, gastric polyps, and duodenal AVMs. History of revascularization procedure of lower extremity (10/2019) Bilateral lower extremity stents per Dr. Carrillo. History of vascular surgery (06/12/13) Aorto bi-iliac bypass graft per Dr. Carrillo. Family History Family History Mother Alzheimer disease Father Emphysema of lung Social History Social History Social History: and lives with her son. 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 Smoked up to a pack of cigarettes a day for nearly 60 years and quit in September 2020. Drinks a beer or two on social occasions. No illicit drug use. She designates her son, Dhaval Allen, as her surrogate decision maker. Code status: Full code. Smoking pa
[2022-12-07 18:08] LABS: Alanine Aminotransferase 30 U/L (6-35); Alkaline Phosphatase 90 U/L (38-126); Anion Gap 7 mmol/L (8-16); Aspartate Amino Transferase 65 U/L (14-36); Bilirubin,Total 0.9 mg/dL (0.2-1.3); Blood Urea Nitrogen 26 mg/dL (7-17); Calcium 7.5 mg/dL (8.4-10.2); Carbon Dioxide 25 mmol/L (22-30); Chloride 102 mmol/L (98-107); Estimated CRCL calculation 9 ml/min; Estimated Glomerular Filt Rate 15; Glucose 97 mg/dL (65-110); Potassium 3.3 mmol/L (3.4-5.0); Sodium 134 mmol/L (137-145)
[2022-12-07 18:13] LABS: INR 1.1; Partial Thromboplastin Time 35.4 SECONDS (22.3-36.8); Prothrombin Time 14.4 Seconds (11.1-14.7)
[2022-12-07 18:20] LABS: NT Pro B Type Natriuretic Pept 16100 pg/mL (19.9-100); Troponin I 0.033 ng/mL (0.000-0.034)
[2022-12-07 20:31] LABS: Influenza A QL RT-PCR Negative (Negative); Influenza B QL RT-PCR Negative (Negative); SARS-CoV-2 RNA PCR Negative (Negative)
[2022-12-08] VITALS (26 sets, daily range): BP systolic 100–161; BP diastolic 40–86; PULSE 56–81; RESP 12–20; TEMP 35.8–36.8; O2SAT 92–100; BMI 16.3
--- NOTE | 2022-12-08 00:20 | PM.IMHP ---
H&P: HPI History of Present Illness Date/Time: 12/07/22 23:47 Chief Complaint: Patient came to ER for evaluation due to shortness of breath Narrative: She is a very unfortunate lady with the CKD on hemodialysis. She does hemodialysis on Tuesdays and Saturdays. She was feeling weak and tired and so she did not go to hemodialysis today, her condition worsened and she came to the ER for evaluation. Workup were done which showed hypoxia with O2 sats in mid 80s and fluid overload. She was given oxygen which helped with her symptoms. Nephrology was consulted who recommended admission under observation status for close management and hemodialysis am. Review of Systems Review of Systems: All systems reviewed & are unremarkable except as noted in HPI and below PMFSH Past Medical History Medical History Cardiomyopathy Presumed ischemic with moderately sized moderately severe reversible defect and small mild non reversible infarct on Lexiscan stress on 09/12/2020. Chronic anemia History of blood transfusion. Chronic kidney disease, stage 3b Baseline creatinine ranges between 1.4 and 1.90. Combined systolic and diastolic congestive heart failure Echocardiogram on 09/10/2020 EF of 20 to 25%, grade 1 diastolic dysfunction, reduced RV systolic function. 12/2020 echo EF 40-46% with segmental wall motion abnormalities COPD with emphysema Hyperlipidemia Hypertension Peripheral arterial disease Severe anemia Surgical History Surgical History History of colonoscopy History of colon polyps, internal hemorrhoids, and diverticulosis. History of esophagogastroduodenoscopy History of gastric erosions, gastric polyps, and duodenal AVMs. History of revascularization procedure of lower extremity (10/2019) Bilateral lower extremity stents per Dr. Carrillo. History of vascular surgery (06/12/13) Aorto bi-iliac bypass graft per Dr. Carrillo. Family History Family History Mother Alzheimer disease Father Emphysema of lung Social History Social History Social History: and lives with her son. 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 Smoked up to a pack of cigarettes a day for nearly 60 years and quit in September 2020. Drinks a beer or two on social occasions. No illicit drug use. She designates her son, Dhaval Allen, as her surrogate decision maker. Code status: Full code. Smoking packs per day: 1 Smoking cigarettes per day: 20.0 Years smoked: 55 Smoking pack-years: 55.00 Smoking status: Never smoker Tobacco type: cigarettes Second hand tobacco smoke exposure: Yes Smoking end date: 09/09/20 Alcohol intake: never Substance use: never Substance use type: does not use Lack of Transportation: No Lack of Food: Never True Current Housing: I Have Housing Concerned About Future Housing: No Difficulty Paying Gas/Electric Bills: No Difficulty Paying for Meds: No Currently Unemployed: No Education: Bachelor's Degree Difficulty w/ Childcare or Family Care: No Spiritual care concerns: No Meds Home Medications and Allergies Home Medications Medication Instructions Recorded Confirmed Type aspirin 81 mg tablet 81 mg PO DAILY 05/10/20 12/08/22 History isosorbide mononitrate 30 mg 30 mg PO DAILY #30 tabs 09/20/20 12/08/22 Rx tablet,extended release 24 hr furosemide 40 mg tablet 40 mg PO BID #60 tabs 01/14/21 12/08/22 Rx acetaminophen 325 mg tablet 600 mg Q6-8H PRN Pain 12/08/22 12/08/22 History atorvastatin 20 mg tablet 80 mg PO HS 12/08/22 12/08/22 History carvedilol 12.5 mg tablet 12.5 mg PO BIDWM 12/08/22 12/08/22 History ergocalciferol (vitamin D2) 1,250 50,000 unit PO WEEKLY 12/08/22 12/08/22 Hist
--- NOTE | 2022-12-08 03:07 | ADMGEN ---
This patient, Alina Allen, was admitted to Medical Room 344-01. Patient/family oriented to hospital policies and general routines including ID bracelet, bed and alarms, visiting hours, pain management, procedures, bathroom and other care routines, personal items, smoking policy, room service/diet, and visiting hours. Information on how to activate the Rapid Response Team has been discussed. Patient/Family are encouraged to report perceived risks to care and to ask questions if they do not understand what they are told or what they should do.
[2022-12-08 07:16] LABS: Albumin Level 3.1 g/dL (3.5-5.1); Anion Gap 10 mmol/L (8-16); Blood Urea Nitrogen 30 mg/dL (7-17); Calcium 7.8 mg/dL (8.4-10.2); Carbon Dioxide 25 mmol/L (22-30); Chloride 102 mmol/L (98-107); Estimated CRCL calculation 8 ml/min; Estimated Glomerular Filt Rate 14; Glucose 100 mg/dL (65-110); Phosphorus 5.4 mg/dL (2.5-4.5); Potassium 3.4 mmol/L (3.4-5.0); Sodium 137 mmol/L (137-145)
[2022-12-08 08:01] LABS: Hepatitis B Surface Antigen Negative (Negative)
[2022-12-08 08:19] LABS: Hepatitis B Surface Anti Res Negative
[2022-12-08] MEDS: EPOETIN ALFA 10,000 UNITS/ML VIAL 10000 UNITS IV PUSH (10:30)
--- NOTE | 2022-12-08 12:20 | PM.CNNEP ---
Assessment and Plan Assessment and plan (1) End stage renal disease: Code(s): N18.6 - End stage renal disease Status: Chronic Assessment and Plan: HD today (since missed her treatment yesterday) HD tomorrow to get back on T/T/S dialysis schedule follow electrolytes, volume status, and clearance (2) Acute respiratory failure with hypoxia: Code(s): J96.01 - Acute respiratory failure with hypoxia Status: Acute Assessment and Plan: multifactorial etiology: mild fluid overload CHF COPD relative anemia deconditioning fluid removal with HD today and tomorrow wean supplemental oxygen as tolerated (3) Hypertension: Qualifiers: Hypertension type: essential hypertension Qualified Code(s): I10 - Essential (primary) hypertension Code(s): I10 - Essential (primary) hypertension Status: Chronic Assessment and Plan: reasonable control at this time continue home medications follow trend of hemoynics (4) Anemia: Qualifiers: Anemia type: unspecified type Qualified Code(s): D64.9 - Anemia, unspecified Code(s): D64.9 - Anemia, unspecified Status: Chronic Assessment and Plan: related to ESRD Epogen with HD follow trend of H/H (5) Hypokalemia: Code(s): E87.6 - Hypokalemia Status: Acute Assessment and Plan: likely related to diminished oral intake follow trend of K+ I am not opposed to discharge after dialysis if the patient is otherwise medically stable and her hypoxia has resolved. I will continue to follow patient with you while she remains hospitalized and make further recommendations as deemed necessary Thank you for allowing me to participate in the care of this patient. History of Present Illness Reason for Consult Consult date: 12/08/22 Reason for consult: end stage renal disease Chief Complaint Chief complaint: Acute Resp Failure with Hypoxia, ESRD on Dialysis History of Present Illness Narrative: The patient is a 76-year-old female with a past medical history as outlined below who presented to [facility] Emergency room due to complaints of shortness of breath. The patient reports that her shortness of breath seems to have occurred over the last few days and seems to be somewhat worse yesterday on the day of admission. She reports her shortness of breath seems to be worse when laying flat as well as with exertional activities. She also reports some generalized weakness in association with a cough, congestion, and increased mucus production. She denies any overt fevers, chills, nausea, vomiting or worsening lower extremity edema. She denies any chest pain, palpitations, dizziness, or lightheadedness as well as constipation or diarrhea. Given these constellation of symptoms, she presented to the emergency room for further assessment. Workup and evaluation emergency room demonstrated the patient to be hemodynamically stable and in no acute distress. Routine blood tests were done which demonstrated labs consistent with her known history of end-stage renal disease but without any critical electrolyte abnormalities as well as a CBC which was consistent with her previous baseline. Her EKG did not show any evidence of acute ischemia or ST changes and her baseline troponins were within the normal range. Her BNP was elevated but not to be unexpected given her known history of end-stage renal disease. She tested negative for coping 19 and influenza and her chest x-ray demonstrated mild interstitial edema, pleural effusions, and bibasilar atelectasis without any evidence of acute infiltrates. on arrival to the ER, she was already on 2 L of oxygen but I am unclear if she was hypoxic before this was applied by EMS. However, despite numerous attempts in the ER, the patient was persistently hypoxic whenever her oxygen was removed And particularly with ambulation. For
[2022-12-08] MEDS: TICAGRELOR 90 MG TABLET PO (13:15)
[2022-12-08] MEDS: FUROSEMIDE 40 MG TABLET PO (13:15)
[2022-12-08] MEDS: hydrALAZINE HCL 25 MG TABLET PO (13:16)
[2022-12-08] MEDS: ASPIRIN 81 MG ENTERIC TABLET PO (13:16)
[2022-12-08] MEDS: SACUBITRIL/VALSARTAN 24-26 MG TABLET 1 TAB PO (13:16)
[2022-12-08] MEDS: PANTOPRAZOLE 40 MG TABLET PO (13:16)
[2022-12-08] MEDS: carvediloL 12.5 MG TABLET PO (13:16)
[2022-12-08] MEDS: ISOSORBIDE MONONITRATE 30 MG TAB.ER.24H PO (13:16)
[2022-12-08] MEDS: NIFEdipine 30 MG TAB.ER.24 60 MG PO (13:16)
--- NOTE | 2022-12-08 14:45 | PM.DS ---
DS: Admitting Diagnosis Discharge Date 12/08/22 Admitting Diagnosis Missed dialysis, fluid overload, hypoxic DS: Discharge Diagnosis Discharge Diagnosis (1) ESRD on dialysis: Code(s): N18.6 - End stage renal disease; Z99.2 - Dependence on renal dialysis Status: Acute (2) Acute respiratory failure with hypoxia: Code(s): J96.01 - Acute respiratory failure with hypoxia Status: Acute (3) Hypokalemia: Code(s): E87.6 - Hypokalemia Status: Acute (4) Cardiomyopathy: Code(s): I42.9 - Cardiomyopathy, unspecified Status: Acute (5) Acute on chronic combined systolic and diastolic CHF (congestive heart failure): Code(s): I50.43 - Acute on chronic combined systolic (congestive) and diastolic (congestive) heart failure Status: Acute (6) Electrolyte imbalance: Code(s): E87.8 - Other disorders of electrolyte and fluid balance, not elsewhere classified Status: Acute (7) Anemia: Qualifiers: Anemia type: unspecified type Qualified Code(s): D64.9 - Anemia, unspecified Code(s): D64.9 - Anemia, unspecified Status: Resolved (8) COPD (chronic obstructive pulmonary disease): Qualifiers: COPD type: unspecified COPD Qualified Code(s): J44.9 - Chronic obstructive pulmonary disease, unspecified Code(s): J44.9 - Chronic obstructive pulmonary disease, unspecified Status: Chronic (9) Missed dialysis: Status: Acute DS: Summary Hospital Course Hospital Course: This is a 76-year-old female with a past medical history of end-stage renal disease on hemodialysis on Tuesday and Saturdays. She presents to the ED on 12/07/2022 due to feeling progressively weak and short of breath. She was found to have O2 saturations in the mid 80s as well as fluid overload. She was put on 1 L of O2. Chest x-ray showing mild interstitial edema with small right and trace left pleural effusions without sign of infection. Nephrology consulted and pt underwent dialysis and after dialysis is completed she was able to be weaned off oxygen. Patient feeling significantly better. Nephrology okay to discharge and patient's respiratory status is stable. Labs and vital signs are stable and she is medically cleared for discharge at this time. Recommend continuing regularly scheduled dialysis appointments at discharge. Time Spent with Patient Time attestation: Total time spent providing and/or coordinating discharge services: Exam Narrative: GENERAL: Comfortable, no acute distress HENMT: moist mucous membranes EYES: EOM intact b/l NECK: no lymphadenopathy RESPIRATORY: clear to auscultation CARDIO: RRR GI: soft, nontender, bowel sounds present SKIN: no rashes EXTREMITIES: no edema, redness or tenderness DS: Data Data Completed and Pending Labs on day of discharge: Labs from last 24 hours 12/08/22 12/07/22 12/07/22 06:56 19:34 17:53 WBC 6.4 RBC 2.93 L Hgb 8.6 L D Hct 23.5 L MCV 80.2 MCH 29.4 MCHC 36.6 H RDW 16.9 H Plt Count 132 L MPV 9.4 Immature Gran % (Auto) 0.3 Neut % (Auto) 81.1 H Lymph % (Auto) 8.6 L [place] % (Auto) 6.4 Eos % (Auto) 3.3 Baso % (Auto) 0.3 Lymph # (Auto) 0.55 L [place] # (Auto) 0.4 Eos # (Auto) 0.2 Baso # (Auto) 0.0 Abs Immat Gran (auto) 0.02 Absolute Neuts (auto) 5.2 Absolute Nucleated RBC 0.0 Nucleated RBC % 0.0 PT 14.4 INR 1.1 APTT 35.4 Sodium 137 134 L Potassium 3.4 3.3 L Chloride 102 102 Carbon Dioxide 25 25 Anion Gap 10 7 L BUN 30 H 26 H D Creatinine 3.70 H 3.50 H Estim Creat Clear Calc 8 9 Estimated GFR 14 L 15 L Glucose 100 97 Calcium 7.8 L 7.5 L Phosphorus 5.4 H Total Bilirubin 0.9 AST 65 H ALT 30 Alkaline Phosphatase 90 Troponin I 0.033 NT-Pro-B Natriuret Pep 32850 H Total Protein 6.0 L Albumin 3.1 L 3.0 L Hep Bs Antigen Negative H
== END 2022-12-08 16:30 | disposition home or self-care (01) ==
LOC: ANHED 17:24 → ANH3MED 12-08 03:08
PROVIDERS: Internal Medicine Nephrology; Student in an Organized Health Care Education/Training Program; Admitting Provider Family Medicine; Emergency Provider Physician Assistant; Visit Provider Hospitalist
DX: J96.01 Acute respiratory failure with hypoxia (principal); I12.0 Hypertensive chronic kidney disease with stage 5 chronic kidney disease or end stage renal disease; N18.6 End stage renal disease; Z99.2 Dependence on renal dialysis; D63.8 Anemia in other chronic diseases classified elsewhere; E87.6 Hypokalemia; Z20.822 Contact with and (suspected) exposure to COVID-19; I11.0 Hypertensive heart disease with heart failure; I50.43 Acute on chronic combined systolic (congestive) and diastolic (congestive) heart failure; I42.9 Cardiomyopathy, unspecified; E87.8 Other disorders of electrolyte and fluid balance, not elsewhere classified; J43.9 Emphysema, unspecified; R91.8 Other nonspecific abnormal finding of lung field; E78.5 Hyperlipidemia, unspecified; R94.31 Abnormal electrocardiogram [ECG] [EKG]; R79.89 Other specified abnormal findings of blood chemistry; I73.9 Peripheral vascular disease, unspecified; Z87.891 Personal history of nicotine dependence; Z79.82 Long term (current) use of aspirin; Z79.1 Long term (current) use of non-steroidal anti-inflammatories (NSAID); Z79.899 Other long term (current) drug therapy
CPT/HCPCS: 36415; 71046; 80053; 80069; 83880; 84484; 85025; 85610; 85730; 86706; 87340; 87636; 93005; 96374; 99285; A9270; G0257; G0378; Q4081

== ENCOUNTER 2023-04-07 07:06 | Emergency (ER) | payer BC, SELFPAY ==
--- NOTE | ~2023-04-07 | XR_ITS ---
EXAMINATION: XR chest 1V portable DATE: 04/07/2023 08:34 INDICATION: Syncope TECHNIQUE: frontal view of the chest was obtained. COMPARISON: Chest radiograph dated 12/07/[address] dated 09/09/2020 FINDINGS: Mild hyperexpansion of lungs consistent with mild emphysema better appreciated on prior CT. There is increased interstitial pattern in the lower lung zones suggesting mild pulmonary edema. Tiny right pl eural effusion. No pneumothorax. Cardiac likely with coronary artery stenting. Atherosclerotic aorta. IMPRESSION: 1. Likely congestive heart failure with cardiomegaly, mild pulmonary edema at the lung bases and tiny right pleural effusion. 2. Mild emphysema. Reviewed, dictated and finalized at location A. LE ROUNDER OPERATOR IMPRESSION: 1. Likely congestive heart failure with cardiomegaly, mild pulmonary edema at t he lung bases and tiny right pleural effusion. 2. Mild emphysema.
--- NOTE | ~2023-04-07 | XR_ITS ---
EXAMINATION: XR abdomen/kub 1V DATE: 04/07/2023 08:01 INDICATION: Syncope. TECHNIQUE: A supine view of the abdomen on 2 radiographs was obtained. COMPARISON: CT abdomen and pelvis 05/16/2022 FINDINGS: There are no dilated loops of bowel. There are surgical clips in the abdomen. Calcified js rine fibroids are noted. Cardiomegaly is noted. IMPRESSION: 1. Normal bowel gas pattern. 2. Cardiomegaly. Reviewed, dictated and finalized at location E. IUM CARD CANCELLATION CLERK
[2023-04-07 07:02] VITALS: BP 183/66; PULSE 65; RESP 15; TEMP 36.4; O2SAT 95
--- NOTE | 2023-04-07 07:11 | ECG_ITS ---
Measurements Intervals [place] Rate: 61 P: 71 NH: 165 QRS: 32 QRSD: 74 T: 21 QT: 401 QTc: 406 Interpretive Statements SINUS RHYTHM WITH SINUS ARRHYTHMIA LOW QRS VOLTAGE IN PRECORDIAL LEADS [QRS DEFLECTION < 1.0 mV IN CHEST LEADS] ANTEROSEPTAL MYOCARDIAL INFARCTION , OF INDETERMINATE AGE [40+ ms Q WAVE IN V1-V4] COMPARED TO ECG 12/07/2022 18:30:02 SINUS ARRHYTHMIA NOW PRESENT Electronically Signed On 04-07-2023 9:17:27 WAREHOUSE SHIFT SUPERVISOR by Pippa Espinoza M.D.
--- NOTE | 2023-04-07 07:25 | ED.DIZZY ---
HPI - Dizziness General Chief Complaint: Syncope Stated Complaint: syncope History of Present Illness HPI Narrative: 77-year-old female presenting to the emergency department from dialysis after having a syncopal episode. Patient states she is getting dialysis she had onset of nausea vomiting and diarrhea. Upon arrival to the emergency department patient denies any current complaints. Patient suspects that she got approximately 2 hours of dialysis completed prior to having to stop. Related Data Home Medications Medication Instructions Recorded Confirmed aspirin 81 mg tablet 81 mg PO DAILY 05/10/20 12/08/22 acetaminophen 325 mg tablet 600 mg Q6-8H PRN Pain 12/08/22 12/08/22 atorvastatin 20 mg tablet 80 mg PO HS 12/08/22 12/08/22 carvedilol 12.5 mg tablet 12.5 mg PO BIDWM 12/08/22 12/08/22 ergocalciferol (vitamin D2) 1,250 50,000 unit PO WEEKLY 12/08/22 12/08/22 mcg (50,000 unit) capsule hydralazine 25 mg tablet 25 mg PO TIDWM 12/08/22 12/08/22 melatonin 3 mg tablet 3 mg PO HS 12/08/22 12/08/22 nifedipine 60 mg tablet,extended 60 mg PO DAILY 12/08/22 12/08/22 release 24 hr omeprazole 40 mg capsule,delayed 40 mg PO DAILY 12/08/22 12/08/22 release oxybutynin chloride 5 mg tablet 5 mg PO HS 12/08/22 12/08/22 sacubitril 24 mg-valsartan 26 mg 1 tablet PO BID 12/08/22 12/08/22 tablet (Entresto) ticagrelor 90 mg tablet (Brilinta) 90 mg PO BID 12/08/22 12/08/22 trazodone 50 mg tablet 50 mg PO HS 12/08/22 12/08/22 Allergies Allergy/AdvReac Type Severity Reaction Status Date / Time Penicillins Allergy Unknown Unknown Verified 12/07/22 17:10 Review of Systems Review of Systems: All systems reviewed & are unremarkable except as noted in HPI and below PMFSH Past Medical History Medical History Cardiomyopathy Presumed ischemic with moderately sized moderately severe reversible defect and small mild non reversible infarct on Lexiscan stress on 09/12/2020. Chronic anemia History of blood transfusion. Chronic kidney disease, stage 3b Baseline creatinine ranges between 1.4 and 1.90. Combined systolic and diastolic congestive heart failure Echocardiogram on 09/10/2020 EF of 20 to 25%, grade 1 diastolic dysfunction, reduced RV systolic function. 12/2020 echo EF 40-46% with segmental wall motion abnormalities COPD with emphysema Hyperlipidemia Hypertension Peripheral arterial disease Severe anemia Surgical History Surgical History History of colonoscopy History of colon polyps, internal hemorrhoids, and diverticulosis. History of esophagogastroduodenoscopy History of gastric erosions, gastric polyps, and duodenal AVMs. History of revascularization procedure of lower extremity (10/2019) Bilateral lower extremity stents per Dr. Carrillo. History of vascular surgery (06/12/13) Aorto bi-iliac bypass graft per Dr. Carrillo. Family History Family History Mother Alzheimer disease Father Emphysema of lung Social History Social History Social History: and lives with her son. 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 Smoked up to a pack of cigarettes a day for nearly 60 years and quit in September 2020. Drinks a beer or two on social occasions. No illicit drug use. She designates her son, Dhaval Allen, as her surrogate decision maker. Code status: Full code. Smoking packs per day: 1 Smoking cigarettes per day: 20.0 Years smoked: 55 Smoking pack-years: 55.00 Smoking status: Never smoker Tobacco type: cigarettes Second hand tobacco smoke exposure: Yes Smoking end date: 09/09/20 Alcohol intake: never Substance use: never Substance use type: does not use Lack of Transportation: No Lack of Food: Never True Cur
[2023-04-07 07:53] LABS: Basophils Percent Auto 0.7 % (0.2-1.2); Eosinophils Absolute Auto 0.2 K/mm3 (0-0.3); Eosinophils Percent Auto 4.5 % (0-4.4); Hematocrit 24.4 % (37.0-47.0); Hemoglobin 8.8 g/dL (12.0-15.0); Immature Granulocyte Absolute 0.03 K/mm3 (0.00-0.031); Immature Granulocyte Percent A 0.7 % (0-0.5); Immature Platelet Fraction Pct 2.1 % (0.9-11.2); Lymphocytes Absolute Auto 0.61 K/mm3 (0.9-3.2); Lymphocytes Percent Auto 14.3 % (18.3-44.2); Mean Corpuscular HGB Conc 36.1 g/dl (32-36); Mean Corpuscular Hemoglobin 27.9 pg (26-34); Mean Corpuscular Volume 77.5 fl (80-100); Mean Platelet Volume 9.9 fl (7.4-10.4); Monocytes Absolute Auto 0.5 K/mm3 (0.1-0.6); Neutrophils Absolute Auto 2.9 K/mm3 (1.3-6.7); Neutrophils Percent Auto 67.8 % (45.5-73.1); Platelet Count Result 131 k/mm3 (150-375); Red Blood Count 3.15 M/mm3 (4.2-5.4); White Blood Count 4.3 K/mm3 (4.5-10.0)
[2023-04-07 08:04] LABS: Alanine Aminotransferase 25 U/L (6-35); Albumin Level 2.9 g/dL (3.5-5.1); Alkaline Phosphatase 81 U/L (38-126); Anion Gap 5 mmol/L (8-16); Aspartate Amino Transferase 28 U/L (14-36); Bilirubin,Total 0.7 mg/dL (0.2-1.3); Blood Urea Nitrogen 16 mg/dL (7-17); Calcium 7.8 mg/dL (8.4-10.2); Carbon Dioxide 29 mmol/L (22-30); Chloride 103 mmol/L (98-107); Estimated CRCL calculation 14 ml/min; Estimated Glomerular Filt Rate 28; Glucose 83 mg/dL (65-110); Magnesium 1.6 mg/dL (1.6-2.3); Potassium 3.6 mmol/L (3.4-5.0); Sodium 137 mmol/L (137-145)
[2023-04-07 08:26] VITALS: BP 186/64; PULSE 72; RESP 15; O2SAT 93
[2023-04-07 08:27] LABS: Influenza A QL RT-PCR Negative (Negative); Influenza B QL RT-PCR Negative (Negative); RSV RNA, RT-PCR Negative (Negative); SARS-CoV-2 RNA PCR Negative (Negative)
--- NOTE | 2023-04-07 09:23 | PC.NURSE ---
Pts son contacted by this RN. Pt requested son to be updated on plan of care.
[2023-04-07 10:00] VITALS: BP 208/71; PULSE 70; RESP 15; O2SAT 98
[2023-04-07 10:14] VITALS: BP 216/71; PULSE 67
[2023-04-07 10:16] VITALS: BP 203/84; PULSE 75
[2023-04-07 10:18] VITALS: BP 183/56; PULSE 67
== END 2023-04-07 10:47 | disposition home or self-care (01) ==
PROVIDERS: Emergency Provider Emergency Medicine
DX: R55 Syncope and collapse (principal); Z20.822 Contact with and (suspected) exposure to COVID-19; I13.0 Hypertensive heart and chronic kidney disease with heart failure and stage 1 through stage 4 chronic kidney disease, or unspecified chronic kidney disease; N18.32 Chronic kidney disease, stage 3b; I50.40 Unspecified combined systolic (congestive) and diastolic (congestive) heart failure; D64.9 Anemia, unspecified; I42.9 Cardiomyopathy, unspecified; I73.9 Peripheral vascular disease, unspecified; J43.9 Emphysema, unspecified; E78.5 Hyperlipidemia, unspecified; Z87.891 Personal history of nicotine dependence; Z79.82 Long term (current) use of aspirin; I51.7 Cardiomegaly; R94.31 Abnormal electrocardiogram [ECG] [EKG]
CPT/HCPCS: 36415; 71045; 74018; 80053; 83735; 84443; 85025; 85055; 85610; 85730; 87637; 93005; 99283

== ENCOUNTER 2023-05-04 07:39 | Outpatient (CLI) | payer BC, SELFPAY ==
--- NOTE | 2023-05-04 | ECHO_ITS ---
Patient Info Name: Alina Allen Age: 77 years : 1945 Gender: Female Ht: 62 in Wt: 102 lbs BSA: 1.42 m2 HR: 73 bpm BP: 160 / 80 mmHg Heart Rhythm: Sinus Rhythm Technical Quality: Good Exam Date: 05/04/2023 7:51 AM Exam Location: Echo Lab Patient Status: Outpatient Admit Date: 05/04/2023 Staff Ordering Physician: Se, Addie ESTES Attending Provider: Ana*Addie Referring Physician: Se RUBIN; Exam Type: CA echo doppler color flow Study Info Indications I50.9 - Heart failure, unspecified Complete two-dimensional, color flow and Doppler transthoracic echocardiogram is performed. Summary 1. Complete two-dimensional, color flow and Doppler transthoracic echocardiogram is performed. 2. Left ventricular chamber dimension is normal. 3. Left ventricular systolic function is hyperdynamic, estimated at >70%. 4. There is moderately increased left ventricular wall thickness. 5. The left ventricular diastolic function is grade I diastolic dysfunction. 6. The basal inferior wall, and basal inferoseptal are akinetic. 7. Left atrial chamber dimension is mildly enlarged. 8. The mitral valve has thickened leaflets. 9. There is mild to moderate mitral valve regurgitation. 10. There is mild to moderate tricuspid valve regurgitation. 11. Moderate pulmonary hypertension, estimated pulmonary arterial systolic pressure is 49 mmHg. Left Ventricle Left ventricular chamber dimension is normal. Left ventricular systolic function is hyperdynamic, estimated at >70%. There is moderately increased left ventricular wall thickness. The left ventricular diastolic function is grade I diastolic dysfunction. The basal inferior wall, and basal inferoseptal are akinetic. All other potts appear normal. Right Ventricle Right ventricular chamber dimension is normal. Right ventricular systolic function is normal. Left Atria Left atrial chamber dimension is mildly enlarged. Right Atria Right atrial chamber dimension is normal. Atrial Septum Intact interatrial septum visualized by color flow imaging. Aortic Valve The aortic valve is trileaflet. There is mild aortic valve sclerosis. There is no aortic valve stenosis. There is trace aortic valve regurgitation. Pulmonic Valve The pulmonic valve is normal. There is no pulmonic valve stenosis. There is trace pulmonic regurgitation. Mitral Valve The mitral valve has thickened leaflets. There is no mitral valve stenosis. There is mild to moderate mitral valve regurgitation. Tricuspid Valve The tricuspid valve leaflets are normal. There is no significant tricuspid valve stenosis. There is mild to moderate tricuspid valve regurgitation. Moderate pulmonary hypertension, estimated pulmonary arterial systolic pressure is 49 mmHg. Pericardium/Pleural The pericardium appears normal. There is no pericardial effusion. Inferior Vena Cava Normal inferior vena cava with >50% collapse upon inspiration consistent with normal right atrial pressure, 5 mmHg. Aorta The aortic root size at the sinus of Valsalva is normal. The prox ascending aorta size is normal. Left Ventricular Outflow Tract Name Value Normal LVOT 2D LVOT Diameter 1.9 cm LVOT Doppler
== END 2023-05-04 07:40 | disposition home or self-care (01) ==
LOC: ANHCARD 07:39
PROVIDERS: Visit Provider Nurse Practitioner Family
DX: I50.42 Chronic combined systolic (congestive) and diastolic (congestive) heart failure (principal); I25.5 Ischemic cardiomyopathy; I27.20 Pulmonary hypertension, unspecified; I07.1 Rheumatic tricuspid insufficiency; I34.0 Nonrheumatic mitral (valve) insufficiency
CPT/HCPCS: 93306

== ENCOUNTER 2023-09-04 07:46 | Inpatient (IN) | payer MEDICARE, BC, SELFPAY ==
[2023-09-04] VITALS (29 sets, daily range): BP systolic 166–236; BP diastolic 57–98; PULSE 70–91; RESP 18–25; TEMP 36.3–36.5; O2SAT 90–97; BMI 17.3
--- NOTE | ~2023-09-04 | XR_ITS ---
EXAMINATION: XR chest 2V DATE: 09/04/2023 08:10 INDICATION: Shortness of breath. TECHNIQUE: Frontal and lateral views of the chest were obtained. COMPARISON: Chest single view 04/07/2023 FINDINGS: There is a small right pleural effusion. There is a diffuse interstitial pattern, consisten t with mild pulmonary edema. There are airspace opacities at right lung base. No pneumothorax. Cardio megaly is noted. There are surgical clips in the abdomen. IMPRESSION: 1. Mild pulmonary edema. 2. Small right pleural effusion. 3. Airspace opacities at right lung base, consistent with atelectasis versus pneumonia. 4. Cardiomegaly. Reviewed, dictated and finalized at location E. IMPRESSION: 1. Mild pulmonary edema. 2. Small right pleural effusion. 3. Airspace opacities at right lung base, consistent with atelectasis versus pn eumonia. 4. Cardiomegaly.
--- NOTE | 2023-09-04 08:02 | ECG_ITS ---
SEE SCANNED COPY FOR CONFIRMED REPORT MTDD
[2023-09-04 08:19] LABS: Basophils Percent Auto 0.4 % (0.2-1.2); Eosinophils Absolute Auto 0.2 K/mm3 (0-0.3); Eosinophils Percent Auto 3.5 % (0-4.4); Hematocrit 29.6 % (37.0-47.0); Hemoglobin 10.4 g/dL (12.0-15.0); Immature Granulocyte Absolute 0.03 K/mm3 (0.00-0.031); Immature Granulocyte Percent A 0.4 % (0-0.5); Lymphocytes Absolute Auto 0.48 K/mm3 (0.9-3.2); Lymphocytes Percent Auto 6.9 % (18.3-44.2); Mean Corpuscular HGB Conc 35.1 g/dl (32-36); Mean Corpuscular Hemoglobin 28.4 pg (26-34); Mean Corpuscular Volume 80.9 fl (80-100); Mean Platelet Volume 9.3 fl (7.4-10.4); Monocytes Absolute Auto 0.5 K/mm3 (0.1-0.6); Monocytes Percent Auto 7.5 % (2.6-8.5); Neutrophils Absolute Auto 5.6 K/mm3 (1.3-6.7); Neutrophils Percent Auto 81.3 % (45.5-73.1); Platelet Count Result 149 k/mm3 (150-375); Red Blood Count 3.66 M/mm3 (4.2-5.4); Red Cell Distribution Width 17.5 % (11.5-14.5); White Blood Count 6.9 K/mm3 (4.5-10.0)
[2023-09-04 08:28] LABS: Alanine Aminotransferase 11 U/L (6-35); Albumin Level 3.3 g/dL (3.5-5.1); Alkaline Phosphatase 101 U/L (38-126); Anion Gap 4 mmol/L (4-12); Aspartate Amino Transferase 29 U/L (14-36); Bilirubin,Total 0.9 mg/dL (0.2-1.3); Blood Urea Nitrogen 22 mg/dL (7-17); Calcium 7.9 mg/dL (8.4-10.2); Carbon Dioxide 29 mmol/L (22-30); Chloride 105 mmol/L (98-107); Estimated CRCL calculation 9 ml/min; Estimated Glomerular Filt Rate 17; Glucose 86 mg/dL (65-110); Potassium 3.7 mmol/L (3.4-5.0); Sodium 138 mmol/L (137-145)
[2023-09-04 08:42] LABS: NT Pro B Type Natriuretic Pept 19200 pg/mL (19.9-100)
[2023-09-04 08:54] LABS: Influenza A QL RT-PCR Negative (Negative); Influenza B QL RT-PCR Negative (Negative); RSV RNA, RT-PCR Negative (Negative); SARS-CoV-2 RNA PCR Negative (Negative)
[2023-09-04] MEDS: FUROSEMIDE INJ 40 MG/4 ML VIAL IV PUSH (09:14)
--- NOTE | 2023-09-04 09:39 | ED.GENADULT ---
HPI - General Adult General Chief complaint: Shortness of Breath/Dyspnea Stated complaint: SOB Time Seen by Provider: 09/04/23 07:49 History of Present Illness HPI narrative: Patient is a 77-year-old female who presents to the emergency department this morning complaining of shortness of breath. Patient admits that she missed her hemodialysis session today, she normally goes every Tuesday, and Tuesday. Patient states that the nurse who was trying to access her dialysis site both her too hard and cause her a lot of pain so patient refused her dialysis session. Patient also admits that she did not take her blood pressure medication this morning. She is currently denying any sharp chest pain, denies any abdominal pain, any nausea or vomiting, and any fevers or chills. Patient admits to a cough productive of sputum within the last week. Denies any additional symptoms or concerns at this time. Related Data Home Medications Medication Instructions Recorded Confirmed aspirin 81 mg tablet 81 mg PO DAILY 05/10/20 12/08/22 acetaminophen 325 mg tablet 600 mg Q6-8H PRN Pain 12/08/22 12/08/22 atorvastatin 20 mg tablet 80 mg PO HS 12/08/22 12/08/22 carvedilol 12.5 mg tablet 12.5 mg PO BIDWM 12/08/22 12/08/22 ergocalciferol (vitamin D2) 1,250 50,000 unit PO WEEKLY 12/08/22 12/08/22 mcg (50,000 unit) capsule hydralazine 25 mg tablet 25 mg PO TIDWM 12/08/22 12/08/22 melatonin 3 mg tablet 3 mg PO HS 12/08/22 12/08/22 nifedipine 60 mg tablet,extended 60 mg PO DAILY 12/08/22 12/08/22 release 24 hr omeprazole 40 mg capsule,delayed 40 mg PO DAILY 12/08/22 12/08/22 release oxybutynin chloride 5 mg tablet 5 mg PO HS 12/08/22 12/08/22 sacubitril 24 mg-valsartan 26 mg 1 tablet PO BID 12/08/22 12/08/22 tablet (Entresto) ticagrelor 90 mg tablet (Brilinta) 90 mg PO BID 12/08/22 12/08/22 trazodone 50 mg tablet 50 mg PO HS 12/08/22 12/08/22 Allergies Allergy/AdvReac Type Severity Reaction Status Date / Time Penicillins Allergy Unknown Unknown Verified 09/04/23 09:15 Review of Systems Review of Systems: All systems are reviewed and are negative unless stated otherwise in the HPI. [facility] Past Medical History Medical History Cardiomyopathy Presumed ischemic with moderately sized moderately severe reversible defect and small mild non reversible infarct on Lexiscan stress on 09/12/2020. Chronic anemia History of blood transfusion. Chronic kidney disease, stage 3b Baseline creatinine ranges between 1.4 and 1.90. Combined systolic and diastolic congestive heart failure Echocardiogram on 09/10/2020 EF of 20 to 25%, grade 1 diastolic dysfunction, reduced RV systolic function. 12/2020 echo EF 40-46% with segmental wall motion abnormalities COPD with emphysema Hyperlipidemia Hypertension Peripheral arterial disease Severe anemia Surgical History Surgical History History of colonoscopy History of colon polyps, internal hemorrhoids, and diverticulosis. History of esophagogastroduodenoscopy History of gastric erosions, gastric polyps, and duodenal AVMs. History of revascularization procedure of lower extremity (10/2019) Bilateral lower extremity stents per Dr. Carrillo. History of vascular surgery (06/12/13) Aorto bi-iliac bypass graft per Dr. Carrillo. Family History Family History Mother Alzheimer disease Father Emphysema of lung Social History Social History Social History: and lives with her son. 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 Smoked up to a pack of cigarettes a day for nearly 60 years and quit in September 2020. Drinks a beer or two on social occasions. No illicit drug use. She designates her son, Dhaval Allen, as her surrogate decision ma
--- NOTE | 2023-09-04 09:40 | PC.NURSE ---
external catheter placed on patient
[2023-09-04] MEDS: LABETALOL HCL INJ 100 MG/20 ML VIAL 20 MG IV PUSH (09:49)
[2023-09-04] MEDS: LABETALOL HCL INJ 100 MG/20 ML VIAL 40 MG IV PUSH (10:13)
--- NOTE | 2023-09-04 10:17 | PM.CNNEP ---
Assessment and Plan Assessment and plan (1) End stage renal disease: Code(s): N18.6 - End stage renal disease Status: Chronic Assessment and Plan: patient was due for dialysis yesterday. Unfortunately unable to access the arm yesterday. Today the patient is short of breath. Likely she is not unstable. She is on low-flow oxygen by nasal cannula. however she is very hypertensive. Most likely the hypertension is driving her Pulmonary infiltrates because of the high afterload. She also has some rhonchi and increased expiratory phase which may be contributing to her shortness of breath. HD tomorrow . Restart the blood pressure medications to bring the blood pressure down (2) Hypertension: Qualifiers: Hypertension type: essential hypertension Qualified Code(s): I10 - Essential (primary) hypertension Code(s): I10 - Essential (primary) hypertension Status: Chronic Assessment and Plan: blood pressure is high in the emergency room. Restart home medications (3) Anemia: Qualifiers: Anemia type: unspecified type Qualified Code(s): D64.9 - Anemia, unspecified Code(s): D64.9 - Anemia, unspecified Status: Chronic Assessment and Plan: related to ESRD Epogen with HD as long as her blood pressure is okay hemoglobin 10.4 (4) CHF (congestive heart failure): Qualifiers: Heart failure chronicity: acute on chronic Heart failure type: combined systolic and diastolic Qualified Code(s): I50.43 - Acute on chronic combined systolic (congestive) and diastolic (congestive) heart failure Code(s): I50.9 - Heart failure, unspecified Status: Acute Assessment and Plan: will check an echocardiogram. Also check troponins and an EKG. (5) Shortness of breath: Code(s): R06.02 - Shortness of breath Status: Chronic Assessment and Plan: The patient has multiple reasons for being short of breath. Just skipping her dialysis alone would not be enough. She has done this frequently in the past because she travels to [place] some weekends and does not get her treatment on those says Saturdays. Today the patient's blood pressure is very high, increasing afterload and so probably contributing to some shortness of breath. The patient does have heart disease. We should check troponins and EKG. I ordered these. The patient has COPD and so could have an exacerbation as well. It seemed that the shortness of breath came after nausea and vomiting. Perhaps she did aspirate a little bit but just did not realize it. It would not take much to trigger a an exacerbation of her COPD. I asked the emergency room doctor to give her some inhalers. Volume could be an issue as well but I do not think is the major player. At this point will treat with inhalers, check an EKG and troponins and address that as needed. Will get the blood pressure down. Will do her dialysis tomorrow History of Present Illness Reason for Consult Consult date: 09/04/23 Chief Complaint Chief complaint: SOB History of Present Illness Narrative: Alina is a very pleasant 76-year-old lady who has multiple medical problems including end-stage renal disease on dialysis 3 times a week, severe hypertension requiring multiple medications, cardiomyopathy, anemia, renal osteodystrophy, COPD with emphysema, hyperlipidemia, peripheral arterial disease. The patient was in her usual state of health until Yesterday when she went in for dialysis. Apparently the nurse had trouble sticking her and so she left without dialysis. She went home the patient developed nausea and vomiting. She says that she did not aspirate anything. Then she developed shortness of breath later yesterday afternoon and was worse this morning. so she came to the ER. She did not take her blood pressure medications. In the ER her blood pressure was very high at 200. Her
[2023-09-04] MEDS: IPRATROPIUM 0.5 MG/ALBUTEROL SULFATE 2.5 MG AMPUL.NEB 3 ML INHALATION (10:47)
[2023-09-04 11:20] LABS: Troponin I 0.038 ng/mL (0.000-0.034)
--- NOTE | 2023-09-04 12:26 | WPDCNINT ---
Assessment and Plan Assessment and plan (1) Hypertensive emergency: Code(s): I16.1 - Hypertensive emergency Status: Acute Assessment and Plan: Patient presented with systolic blood pressure above 200. Likely secondary to missing her dialysis yesterday and not taking her medications today. Despite several IV pushes in the ER patient blood pressure remains high Start nicardipine infusion Resume meds in the form of Imdur hydralazine Coreg nifedipine Entresto Lasix IV given in the ER Patient will be dialyzed tomorrow morning as per Nephrology (2) Acute on chronic combined systolic and diastolic CHF (congestive heart failure): Code(s): I50.43 - Acute on chronic combined systolic (congestive) and diastolic (congestive) heart failure Status: Acute Assessment and Plan: Continue Imdur Entresto aspirin statin (3) Hypoxia: Code(s): R09.02 - Hypoxemia Status: Acute Assessment and Plan: Patient slightly hypoxic requiring 2 L nasal cannula. Chest x-ray shows pulmonary edema and small right pleural effusion She also has airspace opacity in right lung base which could be atelectasis versus pneumonia. She has normal WBC and is afebrile Blood cultures have been sent and she was given a dose of Levaquin I will check procalcitonin level. If low will hold further antibiotics PCR for COVID influenza and RSV was negative (4) Pulmonary edema: Code(s): J81.1 - Chronic pulmonary edema Status: Acute Assessment and Plan: See above (5) ESRD (end stage renal disease) on dialysis: Code(s): N18.6 - End stage renal disease; Z99.2 - Dependence on renal dialysis Status: Acute Assessment and Plan: Print Binding And Finishing Worker saw the patient and plan to dialyze tomorrow morning Plan DVT prophylaxis -SCDs Stress ulcer prophylaxis - Nutrition -renal diet Code Status - Full Code Case discussed with assistant professor of communication Dr. Motley Total Critical Care Time - 35 minutes Due to a high probability of clinically significant, life threatening deterioration, the patient required my highest level of preparedness to intervene emergently and I personally spent this critical care time directly and personally managing the patient. This critical care time included obtaining a history; examining the patient; pulse oximetry; ordering and review of studies; arranging urgent treatment with development of a management plan; evaluation of patient's response to treatment; frequent reassessment; and discussions with other providers. It was exclusive of separately billable procedures and treating other patients and teaching time. Please see Assessment and Plan section and the rest of the note for further information on patient assessment and treatment [employer] Consult Note Consult date: 09/04/23 Reason for consult: Uncontrolled hypertension HPI: Alina Allen is a 77 year old female with past medical history of multiple medical problems including end-stage renal disease on dialysis 3 times a week Tuesday, severe hypertension requiring multiple medications, cardiomyopathy, congestive heart failure, anemia, renal osteodystrophy, COPD with emphysema, hyperlipidemia, peripheral arterial disease presented to ER today with chief complaint of weakness. Patient missed her dialysis yesterday. She states she went to dialysis center but was having too much pain with a needle stick and requested nurse to stop and went home. Later in the evening she started feeling weak and short of breath. She had some cough which was associated with clear mucus which was not new for her. She also had 3 episodes of loose bowel movements also not new. She denies any fever chest pain abdominal pain nausea vomiting or diarrhea. She did feel dizzy but denies any blurring of vision headaches apart from that she denies any other complaints and all other systems were reviewed and were negative. Workup in the ER showed hemoglobin 1
--- NOTE | 2023-09-04 12:49 | PM.IMHP ---
H&P: HPI History of Present Illness Date/Time: 09/04/23 13:00 Chief Complaint: Shortness of breath. Narrative: This is a 77-year-old female with end stage renal disease on hemodialysis, hypertension, combined systolic and diastolic congestive heart failure (EF as low as 20-25% in 04/2021 with an EF of > 70% on echocardiogram in April 2023), peripheral vascular disease, chronic obstructive pulmonary disease, and anemia related to chronic kidney disease who presented to the emergency department for evaluation of shortness of breath. The patient provides the following history. She has dialysis on Tuesday, , and Tuesday and yesterday the nurse had difficulties accessing her so she left without treatment. When she got home she started to feel nauseated and reports having 1 episode of emesis. Later on in the day she felt short of breath which was worse this morning so she came in for evaluation. She had a bit of a cough last week but that has resolved. She denies fever, cold and flu symptoms, chest pain, pleuritic pain, syncope, near syncope, edema, calf pain, and headache. Of note, she did not take her medications this morning. In the ED: Blood pressure has been as high as 229/66. Labs were significant for a hemoglobin of 10.4, BUN 22, creatinine 3.20, potassium 3.7, proBNP 24888, troponin 0.038. Chest x-ray showed mild pulmonary edema and small right pleural effusion. She was given 40 mg IV furosemide and several doses of IV labetalol. Her blood pressures have remained over 200 systolic and she is being admitted to the ICU in this setting on a nicardipine drip. Review of Systems Review of Systems: 12 systems were reviewed and are negative except for as per HPI. [facility] Past Medical History Medical History (Updated 09/04/23 @ 13:25 by Glenny Zamorano PA-C) Cardiomyopathy Presumed ischemic with moderately sized moderately severe reversible defect and small mild non reversible infarct on Lexiscan stress on 09/12/2020. Chronic anemia History of blood transfusion. Combined systolic and diastolic congestive heart failure Echocardiogram on 09/10/2020 EF of 20 to 25%, grade 1 diastolic dysfunction, reduced RV systolic function. 12/2020 echo EF 40-46% with segmental wall motion abnormalities COPD with emphysema End-stage renal disease on hemodialysis Hyperlipidemia Hypertension Peripheral arterial disease Surgical History Surgical History History of colonoscopy History of colon polyps, internal hemorrhoids, and diverticulosis. History of esophagogastroduodenoscopy History of gastric erosions, gastric polyps, and duodenal AVMs. History of revascularization procedure of lower extremity (10/2019) Bilateral lower extremity stents per Dr. Carrillo. History of vascular surgery (06/12/13) Aorto bi-iliac bypass graft per Dr. Carrillo. Family History Family History Mother Alzheimer disease Father Emphysema of lung Social History Social History (Updated 09/04/23 @ 12:58 by Glenny Zamorano PA-C) Social History: Surrogate medical decision maker: Dhaval Allen, hay. Code status: Full code. Smoking packs per day: 1 Smoking cigarettes per day: 20.0 Years smoked: 55 Smoking pack-years: 55.00 Smoking status: Never smoker Tobacco type: cigarettes Second hand tobacco smoke exposure: Yes Smoking end date: 09/09/20 Alcohol intake: current Drinks per week: 1 Substance use: never Substance use type: does not use Do You Feel Safe in your Home?: Yes Lack of Transportation: No Lack of Food: Never True Current Housing: I Have Housing Concerned About Future Housing: No Difficulty Paying Gas/Electric Bills: No Difficulty Paying for Meds: No Currently Unemployed: No Education: Bachelor's Degree Difficulty w/ Childcare or Family Care: No Additional living arrangements comments: .
--- NOTE | 2023-09-04 12:59 | ADMGEN ---
This patient, Alina Allen, was admitted to Intensive Care Unit-5. Patient/family oriented to hospital policies and general routines including ID bracelet, bed and alarms, visiting hours, pain management, procedures, bathroom and other care routines, personal items, smoking policy, room service/diet, and visiting hours. Information on how to activate the Rapid Response Team has been discussed. Patient/Family are encouraged to report perceived risks to care and to ask questions if they do not understand what they are told or what they should do.
[2023-09-04 13:09] LABS: Procalcitonin 0.1 ng/mL
[2023-09-04] MEDS: levoFLOXacin 750 MG/D5W 150 ML 750 MG/150 ML BAG 100 MG IVPB (13:22)
[2023-09-04] MEDS: carvediloL 12.5 MG TABLET PO ×2 (13:33→20:22)
[2023-09-04] MEDS: NIFEdipine 30 MG TAB.ER.24 PO (13:33)
[2023-09-04] MEDS: ISOSORBIDE MONONITRATE 30 MG TAB.ER.24H PO (13:33)
[2023-09-04] MEDS: SACUBITRIL/VALSARTAN 24-26 MG TABLET 1 TAB PO ×2 (13:35→20:21)
[2023-09-04] MEDS: hydrALAZINE HCL 25 MG TABLET PO ×2 (13:35→17:01)
[2023-09-04] MEDS: niCARdipine 20 MG/200 ML 20 MG/200 ML BAG 50 MG IV CONT (13:49)
[2023-09-04] MEDS: diphenhydrAMINE HCl INJ 50 MG/ML VIAL 25 MG IV PUSH (14:07)
[2023-09-04 14:49] LABS: Troponin I 0.048 ng/mL (0.000-0.034)
[2023-09-04 15:05] LABS: MRSA (PCR) NOT DETECTED (NOT DETECTE)
[2023-09-04] MEDS: MELATONIN 3 MG TABLET PO (20:21)
[2023-09-04] MEDS: traZODone HCL 50 MG TABLET PO (20:21)
[2023-09-04] MEDS: ACETAMINOPHEN 325 MG TABLET 650 MG PO (20:21)
[2023-09-04] MEDS: TICAGRELOR 90 MG TABLET PO (20:21)
[2023-09-04] MEDS: SIMETHICONE 80 MG TAB.CHEW PO (23:25)
[2023-09-05] VITALS (24 sets, daily range): BP systolic 93–181; BP diastolic 50–89; PULSE 71–111; RESP 18–28; TEMP 36.3–37; O2SAT 23–100
[2023-09-05 05:10] LABS: Albumin Level 2.7 g/dL (3.5-5.1); Anion Gap 6 mmol/L (4-12); Blood Urea Nitrogen 25 mg/dL (7-17); Calcium 7.8 mg/dL (8.4-10.2); Carbon Dioxide 19 mmol/L (22-30); Chloride 109 mmol/L (98-107); Estimated CRCL calculation 11 ml/min; Estimated Glomerular Filt Rate 18; Glucose 80 mg/dL (65-110); Phosphorus 4.5 mg/dL (2.5-4.5); Potassium 3.7 mmol/L (3.4-5.0); Sodium 134 mmol/L (137-145)
[2023-09-05 05:22] LABS: Basophils Percent Auto 0.6 % (0.2-1.2); Eosinophils Absolute Auto 0.3 K/mm3 (0-0.3); Eosinophils Percent Auto 3.8 % (0-4.4); Hematocrit 31.1 % (37.0-47.0); Immature Granulocyte Absolute 0.03 K/mm3 (0.00-0.031); Immature Granulocyte Percent A 0.4 % (0-0.5); Lymphocytes Absolute Auto 0.74 K/mm3 (0.9-3.2); Lymphocytes Percent Auto 10.5 % (18.3-44.2); Mean Corpuscular HGB Conc 35.4 g/dl (32-36); Mean Corpuscular Hemoglobin 28.5 pg (26-34); Mean Corpuscular Volume 80.6 fl (80-100); Mean Platelet Volume 9.2 fl (7.4-10.4); Monocytes Absolute Auto 0.6 K/mm3 (0.1-0.6); Monocytes Percent Auto 8.6 % (2.6-8.5); Neutrophils Absolute Auto 5.4 K/mm3 (1.3-6.7); Neutrophils Percent Auto 76.1 % (45.5-73.1); Platelet Count Result 152 k/mm3 (150-375); Red Blood Count 3.86 M/mm3 (4.2-5.4); Red Cell Distribution Width 17.4 % (11.5-14.5); White Blood Count 7.1 K/mm3 (4.5-10.0)
[2023-09-05 05:30] LABS: Hepatitis B Surface Antigen Negative (Negative)
[2023-09-05 05:47] LABS: Hepatitis B Surface Anti Res Negative
--- NOTE | 2023-09-05 08:14 | WPDINTPN ---
Progress Note: A&P Assessment and Plan (1) Hypertensive emergency: Code(s): I16.1 - Hypertensive emergency Status: Acute Assessment and Plan: Patient presented with systolic blood pressure above 200. Likely secondary to missing her dialysis yesterday and not taking her medications today. Despite several IV pushes in the ER patient blood pressure remains high Patient was started on nicardipine infusion and home medication Imdur hydralazine Coreg nifedipine Entresto Lasix IV given in the ER Blood pressure has now improved and patient is off of nicardipine infusion She is also getting dialyzed this morning Monitor (2) Acute on chronic combined systolic and diastolic CHF (congestive heart failure): Code(s): I50.43 - Acute on chronic combined systolic (congestive) and diastolic (congestive) heart failure Status: Acute Assessment and Plan: Continue Imdur Entresto aspirin statin (3) Hypoxia: Code(s): R09.02 - Hypoxemia Status: Acute Assessment and Plan: Patient slightly hypoxic on presentation requiring 2 L nasal cannula. Chest x-ray shows pulmonary edema and small right pleural effusion She also had a airspace opacity in right lung base which is likely atelectasis versus pneumonia. She was given 1 dose of Levaquin empirically in the ER. She has normal WBC and is afebrile. Blood cultures have been sent Her procalcitonin level was low. Will hold further antibiotics PCR for COVID influenza and RSV was negative She is getting dialysis this morning to remove fluid and she is now on room air (4) Pulmonary edema: Code(s): J81.1 - Chronic pulmonary edema Status: Acute Assessment and Plan: See above (5) ESRD (end stage renal disease) on dialysis: Code(s): N18.6 - End stage renal disease; Z99.2 - Dependence on renal dialysis Status: Acute Assessment and Plan: Getting dialyzed this morning Plan DVT prophylaxis -SCDs Nutrition -renal diet Code Status - Full Code Case discussed with community development planner Dr. Motley Total Critical Care Time - 30 minutes Due to a high probability of clinically significant, life threatening deterioration, the patient required my highest level of preparedness to intervene emergently and I personally spent this critical care time directly and personally managing the patient. This critical care time included obtaining a history; examining the patient; pulse oximetry; ordering and review of studies; arranging urgent treatment with development of a management plan; evaluation of patient's response to treatment; frequent reassessment; and discussions with other providers. It was exclusive of separately billable procedures and treating other patients and teaching time. Please see Assessment and Plan section and the rest of the note for further information on patient assessment and treatment Subjective Date/time seen: 09/05/23 Overnight events reviewed. Afebrile Off nicardipine infusion. On room air She denies any complaints this morning and is currently on hemodialysis. She states she is ready to go home and would like to be discharged after dialysis. Patient denies fever, chest pain, shortness of breath, cough, nausea vomiting, abdominal pain,, diarrhea, headache or constipation. All other systems were reviewed and were negative Other Vitals acceptable Review of Systems Review of Systems: All systems reviewed & are unremarkable except as noted in HPI and below (HPI) Exam Narrative: General: Pt is alert awake and in NAD. Or frail female Lungs/Chest: Trachea central Clear BS B/L, bibasilar crackles Cardiac: RRR. Normal S1 S2. No murmurs Circulation: Pedal pulses are intact and symmetrical. Abdomen: Normal bowel sounds. Soft. NT. ND. Extremities: No clubbing, cyanosis or edema. Warm. AV graft in left forearm : Escobar in place Neurologic: Follows commands. Moves all 4 extremities PERRL AO x3 Skin: No Rash Objective
--- NOTE | 2023-09-05 11:00 | P.PNNP_ITS ---
Progress Note: A&P Assessment and Plan (1) End stage renal disease: Code(s): N18.6 - End stage renal disease Status: Chronic Assessment and Plan: * HD today * plan next HD tomorrow versus * respiratory status better at this time * follow electrolytes, volume status, and clearance (2) Hypertension: Qualifiers: Hypertension type: essential hypertension Qualified Code(s): I10 - Essential (primary) hypertension Code(s): I10 - Essential (primary) hypertension Status: Chronic Assessment and Plan: * weaned off nicardipine gtt * BP under reasonable control * back on home medications * follow trend of hemodynamics (3) Shortness of breath: Code(s): R06.02 - Shortness of breath Status: Chronic Assessment and Plan: * clinical improvement noted * multifactorial etiology: * missed HD session on Tuesday * HTN urgency * component of flash pulmonary edema * underlying COPD * fluid * continue current therapy (4) CHF (congestive heart failure): Qualifiers: Heart failure chronicity: acute on chronic Heart failure type: combined systolic and diastolic Qualified Code(s): I50.43 - Acute on chronic combined systolic (congestive) and diastolic (congestive) heart failure Code(s): I50.9 - Heart failure, unspecified Status: Acute Assessment and Plan: * trend of troponins noted * suspect partly related to pulmonary edema from severe HTN on presentation * Echo earlier this year noted * follow volume status (5) Anemia: Qualifiers: Anemia type: unspecified type Qualified Code(s): D64.9 - Anemia, unspecified Code(s): D64.9 - Anemia, unspecified Status: Chronic Assessment and Plan: * related to ESRD * Epogen with HD since BP doing better * follow trend of H/H Not opposed to discharge from renal perspective if otherwise medically stable -- she can go to her outpatient dialysis center tomorrow for her regularly scheduled dialysis treatment Will continue to follow. Subjective Date/time seen: 09/05/23 11:00 Interval history: Follow-up for end stage renal disease on hemodialysis. Chart reviewed -- assuming care from Dr. Motley; tolerating dialysis treatment at the time of my visit and almost done with session (seen on HD at 10:50AM); has been weaned off nicardipine gtt with relative stability in blood pressure; she is hoping to be discharged later today after dialysis; no other acute issues/complaints voiced. Exam Narrative: General: thin and somewhat frail female in NAD Heart: normal S1 and S2; no rub Lungs: clear anteriorly, decreased at bases Abdomen: soft, nontender, nondistended, positive bowel sounds Extremities: no cyanosis or clubbing; no edema Skin: warm and dry Objective Data Vital Signs Vital Signs: Vital Signs Temp Pulse Resp BP Pulse Ox O2 Del Method 09/05/23 10:56 71 93/58 L 09/05/23 10:45 96 111/56 L 09/05/23 10:30 88 143/62 H 09/05/23 10:15 88 113/60 09/05/23 10:00 85 122/62 09/05/23 09:45 93 117/89 09/05/23 09:30 94 136/61 09/05/23 09:15 91 145/61 H 09/05/23 09:00 77 136/68 09/05/23 08:45 97 113/64 09/05/23 08:00 97 18 97 Room Air
--- NOTE | 2023-09-05 11:00 | PM.PNNEP ---
Progress Note: A&P Assessment and Plan (1) End stage renal disease: Code(s): N18.6 - End stage renal disease Status: Chronic Assessment and Plan: HD today plan next HD tomorrow versus respiratory status better at this time follow electrolytes, volume status, and clearance (2) Hypertension: Qualifiers: Hypertension type: essential hypertension Qualified Code(s): I10 - Essential (primary) hypertension Code(s): I10 - Essential (primary) hypertension Status: Chronic Assessment and Plan: weaned off nicardipine gtt BP under reasonable control back on home medications follow trend of hemodynamics (3) Shortness of breath: Code(s): R06.02 - Shortness of breath Status: Chronic Assessment and Plan: clinical improvement noted multifactorial etiology: missed HD session on Tuesday HTN urgency component of flash pulmonary edema underlying COPD fluid continue current therapy (4) CHF (congestive heart failure): Qualifiers: Heart failure chronicity: acute on chronic Heart failure type: combined systolic and diastolic Qualified Code(s): I50.43 - Acute on chronic combined systolic (congestive) and diastolic (congestive) heart failure Code(s): I50.9 - Heart failure, unspecified Status: Acute Assessment and Plan: trend of troponins noted suspect partly related to pulmonary edema from severe HTN on presentation Echo earlier this year noted follow volume status (5) Anemia: Qualifiers: Anemia type: unspecified type Qualified Code(s): D64.9 - Anemia, unspecified Code(s): D64.9 - Anemia, unspecified Status: Chronic Assessment and Plan: related to ESRD Epogen with HD since BP doing better follow trend of H/H Not opposed to discharge from renal perspective if otherwise medically stable -- she can go to her outpatient dialysis center tomorrow for her regularly scheduled dialysis treatment Will continue to follow. Subjective Date/time seen: 09/05/23 11:00 Interval history: Follow-up for end stage renal disease on hemodialysis. Chart reviewed -- assuming care from Dr. Motley; tolerating dialysis treatment at the time of my visit and almost done with session (seen on HD at 10:50AM); has been weaned off nicardipine gtt with relative stability in blood pressure; she is hoping to be discharged later today after dialysis; no other acute issues/complaints voiced. Exam Narrative: General: thin and somewhat frail female in NAD Heart: normal S1 and S2; no rub Lungs: clear anteriorly, decreased at bases Abdomen: soft, nontender, nondistended, positive bowel sounds Extremities: no cyanosis or clubbing; no edema Skin: warm and dry Objective Data Vital Signs Vital Signs: Vital Signs Temp Pulse Resp BP Pulse Ox O2 Del Method 09/05/23 10:56 71 93/58 L 09/05/23 10:45 96 111/56 L 09/05/23 10:30 88 143/62 H 09/05/23 10:15 88 113/60 09/05/23 10:00 85 122/62 09/05/23 09:45 93 117/89 09/05/23 09:30 94 136/61 09/05/23 09:15 91 145/61 H 09/05/23 09:00 77 136/68 09/05/23 08:45 97 113/64 09/05/23 08:00 97 18 97 Room Air 09/05/23 08:00 86 18 144/64 H 23 L 09/05/23 08:00 86 09/05/23 08:06 97 Room Air 09/05/23 07:45 102 H 127/73 09/05/23 07:30 88 156/53 H 09/05/23 08:30 111 H 108/50 L 09/05/23 08:15 97 127/74 09/05/23 08:00 87 144/64 H 09/05/23 07:10 97.7 F 72 24 H 153/64 H 98 09/05/23 07:24 90 164/56 H 09/05/23 06:00 80 24 H 148/58 H 95 09/05/23 06:00 80 09/05/23 04:00 85 09/05/23 04:00 97.9 F 85 18 151/60 H 95 09/05/23 04:00 Room Air 09/05/23 02:00 82 23 H 159/77 H 93 09/05/23 02:00 82 09/05/23 00:00 97.7 F 78 21 H 181/62 H 94 09/05/23
[2023-09-05] MEDS: SACUBITRIL/VALSARTAN 24-26 MG TABLET 1 TAB PO (11:40)
[2023-09-05] MEDS: ATORVASTATIN 40 MG TABLET 80 MG PO (11:40)
[2023-09-05] MEDS: ASPIRIN 81 MG ENTERIC TABLET PO (11:40)
[2023-09-05] MEDS: ISOSORBIDE MONONITRATE 30 MG TAB.ER.24H PO (11:40)
[2023-09-05] MEDS: carvediloL 12.5 MG TABLET PO (11:41)
[2023-09-05] MEDS: hydrALAZINE HCL 25 MG TABLET PO (11:41)
[2023-09-05] MEDS: NIFEdipine 30 MG TAB.ER.24 PO (11:41)
[2023-09-05] MEDS: PANTOPRAZOLE 40 MG TABLET PO (11:41)
[2023-09-05] MEDS: TICAGRELOR 90 MG TABLET PO (11:41)
--- NOTE | 2023-09-05 12:49 | PM.DS ---
DS: Admitting Diagnosis Discharge Date 09/05/2023: Admitting Diagnosis (1) Hypertensive urgency: ?Code(s): I16.0 - Hypertensive urgency ?Status:?Acute (2) Elevated troponin: ?Code(s): R79.89 - Other specified abnormal findings of blood chemistry ?Status:?Acute (3) Combined systolic and diastolic congestive heart failure: ?Code(s): I50.40 - Unspecified combined systolic (congestive) and diastolic (congestive) heart failure ?Status:?Acute (4) Hypoxia: ?Code(s): R09.02 - Hypoxemia ?Status:?Acute (5) End-stage renal disease on hemodialysis: ?Code(s): N18.6 - End stage renal disease; Z99.2 - Dependence on renal dialysis ?Status:?Acute (6) Chronic anemia: ?Code(s): D64.9 - Anemia, unspecified ?Status:?Acute DS: Discharge Diagnosis Discharge Diagnosis (1) End-stage renal disease on hemodialysis: Code(s): N18.6 - End stage renal disease; Z99.2 - Dependence on renal dialysis Status: Acute (2) Elevated troponin: Code(s): R79.89 - Other specified abnormal findings of blood chemistry Status: Acute (3) Hypoxia: Code(s): R09.02 - Hypoxemia Status: Acute (4) Severe anemia: Code(s): D64.9 - Anemia, unspecified Status: Acute (5) PVD (peripheral vascular disease): Code(s): I73.9 - Peripheral vascular disease, unspecified Status: Chronic (6) Hypertension: Qualifiers: Hypertension type: essential hypertension Qualified Code(s): I10 - Essential (primary) hypertension Code(s): I10 - Essential (primary) hypertension Status: Chronic (7) NSVT (nonsustained ventricular tachycardia): Code(s): I47.2 - Ventricular tachycardia Status: Acute (8) LINNETTE (iron deficiency anemia): Code(s): D50.9 - Iron deficiency anemia, unspecified Status: Acute (9) Cardiomyopathy: Code(s): I42.9 - Cardiomyopathy, unspecified Status: Chronic (10) CHF (congestive heart failure): Qualifiers: Heart failure type: combined systolic and diastolic Heart failure chronicity: acute on chronic Qualified Code(s): I50.43 - Acute on chronic combined systolic (congestive) and diastolic (congestive) heart failure Code(s): I50.9 - Heart failure, unspecified Status: Acute (11) Gastric AVM: Code(s): K31.819 - Angiodysplasia of stomach and duodenum without bleeding Status: Acute (12) COPD (chronic obstructive pulmonary disease): Qualifiers: COPD type: unspecified COPD Qualified Code(s): J44.9 - Chronic obstructive pulmonary disease, unspecified Code(s): J44.9 - Chronic obstructive pulmonary disease, unspecified Status: Chronic (13) Anemia: Qualifiers: Anemia type: unspecified type Qualified Code(s): D64.9 - Anemia, unspecified Code(s): D64.9 - Anemia, unspecified Status: Chronic (14) Peripheral arterial disease: Code(s): I73.9 - Peripheral vascular disease, unspecified Status: Acute (15) Chronic anemia: Code(s): D64.9 - Anemia, unspecified Status: Acute (16) Hypertensive urgency: Code(s): I16.0 - Hypertensive urgency Status: Acute (17) Hyperlipidemia: Code(s): E78.5 - Hyperlipidemia, unspecified Status: Acute (18) Missed dialysis: Status: Acute (19) Acute hypoxic respiratory failure: Code(s): J96.01 - Acute respiratory failure with hypoxia Status: Acute DS: Summary Hospital Course Reason for hospitalization: Patient admitted for shortness of breath and uncontrolled blood pressure Hospital Course: H&P: HPI History of Present Illness Date/Time: 09/04/23? 13:00 Chief Complaint: Shortness of breath. Narrative: This is a 77-year-old female with end stage renal disease on hemodialysis, hypertension, combined systolic and diastolic congestive heart failure (EF as low as 20-25% in 04/2021 with an EF of > 70% on echoc
== END 2023-09-05 13:50 | disposition home or self-care (01) | DRG 291 ==
LOC: ANHED 10:19 → ANHICU 12:12
PROVIDERS: Internal Medicine; Internal Medicine Nephrology; Physician Assistant; Admitting Provider Internal Medicine; Emergency Provider Emergency Medicine; PCP Nurse Practitioner Family; Visit Provider Family Medicine
DX: I13.2 Hypertensive heart and chronic kidney disease with heart failure and with stage 5 chronic kidney disease, or end stage renal disease (principal); I50.43 Acute on chronic combined systolic (congestive) and diastolic (congestive) heart failure; N18.6 End stage renal disease; I16.1 Hypertensive emergency; J81.1 Chronic pulmonary edema; Z99.2 Dependence on renal dialysis; D63.1 Anemia in chronic kidney disease; E78.5 Hyperlipidemia, unspecified; I73.9 Peripheral vascular disease, unspecified; J43.9 Emphysema, unspecified; Z91.199 Patient's noncompliance with other medical treatment and regimen due to unspecified reason; Z20.822 Contact with and (suspected) exposure to COVID-19; Z79.82 Long term (current) use of aspirin
CPT/HCPCS: 36415; 71046; 80053; 80069; 83880; 84145; 84484; 85025; 86706; 87040; 87340; 87637; 87641; 93005; 94640; 96374; 96375; 96376; 99291; A9270; G0257; J1200; J1940; J1956; J2404; J7030

== ENCOUNTER 2023-09-29 20:24 | Emergency (ER) | payer MEDICARE, BC, SELFPAY ==
--- NOTE | ~2023-09-29 | XR_ITS ---
EXAMINATION: XR abdomen/kub 1V DATE: 09/29/2023 20:42 INDICATION: 2 days of constipation TECHNIQUE: A supine view of the abdomen on 2 radiographs was obtained. COMPARISON: 04/07/2023 FINDINGS: Large amount of stool in the descending and sigmoid colon with 7 cm ball of stool at the rectum. No d ilated gas-filled bowel to suggest obstruction. There is however prominent gaseous distention of the stomach. Couple calcified gallstones in the right abdomen. Calcified uterine fibroid in the left pelv is. Scattered atherosclerotic calcifications at aorta, iliac and bilateral renal arteries. Small righ t pleural effusion. Lumbar dextro scoliosis with mild spondylosis. IMPRESSION: 1. Large amount of distal colonic stool with 7 cm ball of stool at rectum consistent with constipatio n or fecal impaction. 2. Cholelithiasis. 2. Small right pleural effusion. Reviewed, dictated and finalized at location A. IMPRESSION: 1. Large amount of distal colonic stool with 7 cm ball of stool at rectum consi stent with constipation or fecal impaction. 2. Cholelithiasis. 2. Small right pleural effusion.
[2023-09-29 20:30] VITALS: BP 180/66; PULSE 87; RESP 20; TEMP 36.9; O2SAT 98
--- NOTE | 2023-09-29 20:50 | PC.NURSE ---
Pt wheeled to restroom in the waiting room . Pt verbalized I need to shit, I am shitting. Pt actively having BM with stool almeida in her underware.
--- NOTE | 2023-09-29 21:36 | PC.NURSE ---
Pt verbalized that she has had 2 bm while here so she is calling her son to come get her.
--- NOTE | 2023-09-29 22:14 | PC.NURSE ---
pt wheeled to intake desk and stated thank you very much, I am going home now.
== END 2023-09-29 22:41 | disposition left against medical advice (07) ==
LOC: ANHED 22:34
PROVIDERS: Emergency Provider Emergency Medicine; PCP Nurse Practitioner Family
DX: K59.00 Constipation, unspecified (principal)
CPT/HCPCS: 74018; 99199

== ENCOUNTER 2023-10-11 05:47 | Inpatient (IN) | payer MEDICARE, BC, SELFPAY ==
[2023-10-11] VITALS (37 sets, daily range): BP systolic 90–197; BP diastolic 35–76; PULSE 66–90; RESP 15–26; TEMP 36.3–37; O2SAT 94–100; BMI 20.4
--- NOTE | ~2023-10-11 | XR_ITS ---
Portable chest x-ray Comparison: 09/04/2023 Clinical History: Shortness of breath Findings: Small right pleural effusion present. There is extensive hazy bibasilar and perihilar airs pace disease. Cardiomediastinal silhouette is stable. Bones and soft tissues are unremarkable. Impression: Hazy bibasilar perihilar airspace disease, most likely presenting mild to moderate pulmonary edema. C orrelate clinically for infection. Small right pleural effusion. Reviewed, dictated and finalized at location . Impression: Hazy bibasilar perihilar airspace disease, most likely presenting mild to moder ate pulmonary edema. Correlate clinically for infection. Small right pleural effusion.
--- NOTE | ~2023-10-11 | XR_ITS ---
EXAMINATION: XR lumbar spine 2-3V DATE: 10/11/2023 16:01 INDICATION: Low back pain. TECHNIQUE: 3 views of lumbar spine were obtained. COMPARISON: Lumbar spine radiographs 02/01/2013 FINDINGS: There is 15 degrees dextroscoliosis of lumbar spine. There is 3 mm in anterolisthesis of L4 on L5. There is mildly decreased disc height at L3-L4 and L4-L5. There is multilevel facet joint ost eoarthritis, severe in the lower lumbar spine. There are surgical clips in the abdomen. There are gal lstones in the gallbladder. Calcified uterine fibroids are noted. IMPRESSION: 1. Mild lumbar spondylosis. 2. Lumbar dextroscoliosis. Reviewed, dictated and finalized at location A.
--- NOTE | ~2023-10-11 | XR_ITS ---
EXAMINATION: XR sacrum coccyx min 2V DATE: 10/11/2023 16:01 INDICATION: Sacrococcygeal pain. TECHNIQUE: 3 views of the sacrum and coccyx were obtained. COMPARISON: CT abdomen and pelvis 05/16/2022. FINDINGS: Bone alignment is normal. No fracture. There is mild osteoarthritis of the hips. There is m ild lumbar spondylosis. There are surgical clips in the abdomen. Calcified uterine fibroids are noted . IMPRESSION: 1. No fracture. Reviewed, dictated and finalized at location A. IMPRESSION: 1. No fracture.
--- NOTE | 2023-10-11 05:54 | ED.SOB ---
HPI - SOB/Dyspnea General Chief Complaint: Shortness of Breath/Dyspnea Stated Complaint: SOB, COUGH Time Seen by Provider: 10/11/23 05:52 History of Present Illness HPI Narrative: Patient is 77-year-old female history of ESRD on hemodialysis, CHF, cardiomyopathy, hypertension, CAD, COPD here with shortness of breath and cough. Patient states that this morning she got up to go to dialysis and started noticing an increased cough and shortness of breath. patient notes that the symptoms began this morning and she felt fairly normal when she went to bed last night. She denies history of COPD however it is documented in her chart. She denies any sick contacts, does not believe she has had a fever. She notes that she does dialysis Tuesday, , Tuesday, last dialysis run was Tuesday, this was a full dialysis run without any complications per patient. She denies chest pain. She does not normally use home oxygen but does note she required oxygen during a hospitalization about 1 month ago. Her applications specialist is Dr. Motley, she gets dialysis at [facility]. Related Data Home Medications Medication Instructions Recorded Confirmed aspirin 81 mg tablet 81 mg PO DAILY 05/10/20 10/11/23 atorvastatin 20 mg tablet 80 mg PO HS 12/08/22 10/11/23 carvedilol 12.5 mg tablet 12.5 mg PO BIDWM 12/08/22 10/11/23 hydralazine 25 mg tablet 25 mg PO BID 12/08/22 10/11/23 melatonin 3 mg tablet 3 mg PO HS 12/08/22 10/11/23 omeprazole 40 mg capsule,delayed 40 mg PO DAILY 12/08/22 10/11/23 release oxybutynin chloride 5 mg tablet 5 mg PO HS 12/08/22 10/11/23 trazodone 50 mg tablet 50 mg PO HS 12/08/22 10/11/23 lisinopril 20 mg tablet 20 mg PO DAILY 09/04/23 10/11/23 ergocalciferol (vitamin D2) 1,250 50,000 unit PO BID 10/11/23 10/11/23 mcg (50,000 unit) capsule nifedipine 30 mg tablet,extended 30 mg PO QTUTHSA 10/11/23 10/11/23 release ticagrelor 90 mg tablet (Brilinta) 90 mg PO BID 10/11/23 10/11/23 Allergies Allergy/AdvReac Type Severity Reaction Status Date / Time Penicillins Allergy Unknown Rash Verified 10/11/23 12:47 Review of Systems Review of Systems: All systems reviewed & are unremarkable except as noted in HPI and below [facility] Past Medical History Medical History (System 10/11/23 @ 08:34 by Jann Deng) Cardiomyopathy Presumed ischemic with moderately sized moderately severe reversible defect and small mild non reversible infarct on Lexiscan stress on 09/12/2020. Chronic anemia History of blood transfusion. Combined systolic and diastolic congestive heart failure Echocardiogram on 09/10/2020 EF of 20 to 25%, grade 1 diastolic dysfunction, reduced RV systolic function. 12/2020 echo EF 40-46% with segmental wall motion abnormalities COPD with emphysema End-stage renal disease on hemodialysis Hyperlipidemia Hypertension Peripheral arterial disease Surgical History Surgical History History of colonoscopy History of colon polyps, internal hemorrhoids, and diverticulosis. History of esophagogastroduodenoscopy History of gastric erosions, gastric polyps, and duodenal AVMs. History of revascularization procedure of lower extremity (10/2019) Bilateral lower extremity stents per Dr. Carrillo. History of vascular surgery (06/12/13) Aorto bi-iliac bypass graft per Dr. Carrillo. Family History Family History Mother Alzheimer disease Father Emphysema of lung Social History Social History (System 10/11/23 @ 08:34 by Jann Deng) Social History: Surrogate medical decision maker: Dhaval Allen, hay. Code status: Full code. Smoking packs per day: 1 Smoking cigarettes per day: 20.0 Years smoked: 55 Smoking pack-years: 55.00 Smoking status: Never smoker Second hand tobacco smoke exposure: Yes Alcohol intake: never Substance use: never Substance use type: does not use Do You Feel Safe in your Home?: Yes [place]
--- NOTE | 2023-10-11 05:59 | ECG_ITS ---
Test Date: 2023-10-11 05:55:32 Measurements Intervals [place] Rate: 75 P: 64 UT: 144 QRS: 79 QRSD: 81 T: 44 QT: 383 QTc: 430 Interpretive Statements SINUS RHYTHM WITH OCCASIONAL SUPRAVENTRICULAR PREMATURE COMPLEXES POSSIBLE LEFT ATRIAL ENLARGEMENT POSSIBLE LEFT VENTRICULAR HYPERTROPHY POSSIBLE SEPTAL MYOCARDIAL INFARCTION , OF INDETERMINATE AGE BORDERLINE ST-T WAVE ABNORMALITY- INFERIOR LEADS BASELINE ARTIFACT- II, III, AVL, AVF, V4-V6 ABNORMAL ECG No previous ECG available for comparison Electronically Signed On 10-11-2023 06:31:40 CDT by Gael Steward D.O.
[2023-10-11] MEDS: IPRATROPIUM 0.5 MG/ALBUTEROL SULFATE 2.5 MG AMPUL.NEB 3 ML (06:07)
[2023-10-11 06:08] LABS: Basophils Percent Auto 0.5 % (0.2-1.2); Eosinophils Absolute Auto 0.3 K/mm3 (0-0.3); Eosinophils Percent Auto 3.7 % (0-4.4); Hematocrit 28.1 % (37.0-47.0); Hemoglobin 9.7 g/dL (12.0-15.0); Immature Granulocyte Absolute 0.04 K/mm3 (0.00-0.031); Immature Granulocyte Percent A 0.5 % (0-0.5); Lymphocytes Absolute Auto 0.68 K/mm3 (0.9-3.2); Lymphocytes Percent Auto 8.4 % (18.3-44.2); Mean Corpuscular HGB Conc 34.5 g/dl (32-36); Mean Corpuscular Hemoglobin 29.4 pg (26-34); Mean Corpuscular Volume 85.2 fl (80-100); Mean Platelet Volume 9.1 fl (7.4-10.4); Monocytes Absolute Auto 0.5 K/mm3 (0.1-0.6); Monocytes Percent Auto 6.6 % (2.6-8.5); Neutrophils Absolute Auto 6.5 K/mm3 (1.3-6.7); Neutrophils Percent Auto 80.3 % (45.5-73.1); Platelet Count Result 135 k/mm3 (150-375); Red Cell Distribution Width 17.1 % (11.5-14.5); White Blood Count 8.1 K/mm3 (4.5-10.0)
[2023-10-11 06:14] LABS: Lactic Acid Reflex 1.1 mmol/L (0.7-2.0)
[2023-10-11 06:18] LABS: INR 1.1; Prothrombin Time 14.2 Seconds (11.1-14.7)
[2023-10-11 06:19] LABS: Partial Thromboplastin Time 28.5 Seconds (22.3-36.8)
[2023-10-11 06:27] LABS: Troponin I 0.032 ng/mL (0.000-0.034)
[2023-10-11] MEDS: methylPREDNISolone SOD SUCC 125 MG VIAL IV PUSH (06:27)
--- NOTE | 2023-10-11 06:31 | PC.NURSE ---
Informed pt of needing to give urine sample. This RN stated that if she is unable to give one, we would need to do a straight cath. Pt refused, stating that she is not going to let us do that. Pt given call light and advised to reach out when she feels the urge to urinate.
[2023-10-11] MEDS: ALBUTEROL SULFATE NEB 2.5 MG/3 ML INH 15 MG INHALATION (06:36)
[2023-10-11] MEDS: IPRATROPIUM BR 0.02% INH SOLN 0.5 MG/2.5 ML VIAL 1.5 MG INHALATION (06:37)
[2023-10-11 06:45] LABS: Alanine Aminotransferase 10 U/L (6-35); Albumin Level 3.3 g/dL (3.5-5.1); Alkaline Phosphatase 85 U/L (38-126); Anion Gap 7 mmol/L (4-12); Aspartate Amino Transferase 25 U/L (14-36); Blood Urea Nitrogen 23 mg/dL (7-17); CRP < 0.5 mg/dL (<1.0); Carbon Dioxide 27 mmol/L (22-30); Chloride 105 mmol/L (98-107); Estimated Glomerular Filt Rate 18; Glucose 143 mg/dL (65-110); Potassium 3.6 mmol/L (3.4-5.0); Sodium 139 mmol/L (137-145)
[2023-10-11 06:47] LABS: Influenza A QL RT-PCR Negative (Negative); Influenza B QL RT-PCR Negative (Negative); RSV RNA, RT-PCR Negative (Negative); SARS-CoV-2 RNA PCR Negative (Negative)
[2023-10-11] MEDS: levoFLOXacin 750 MG/D5W 150 ML 750 MG/150 ML BAG 100 MG IVPB (07:35)
[2023-10-11] MEDS: FUROSEMIDE INJ 40 MG/4 ML VIAL IV PUSH (07:35)
--- NOTE | 2023-10-11 07:52 | PC.NURSE ---
pt still unable to give urine sample, refuses cath.
--- NOTE | 2023-10-11 08:27 | PC.NURSE ---
Pt taken to dialysis at this time
[2023-10-11 08:33] LABS: Appearance Urine Clear (Clear); Bacteria Urine None Seen /hpf; Bilirubin Urine Negative (Negative); Blood Urine Negative (Negative); Color Urine Yellow (Yellow); Glucose Urine UA Negative (Negative); Ketones Urine Negative (Negative); Leukocyte Esterase Ur Negative LEU/UL (Negative); Need Manual Microscopic Reviewed; Nitrate Urine Negative (Negative); Non Pathogenic Casts 0-2; Protein Urine 3+ mg/dL (Negative); Specific Grav Ur 1.013 (1.001-1.035); Squamous Epithelial Cell Urine Occasional /hpf (Few); WBC Urine 0-5 /hpf (0-3)
[2023-10-11 08:36] LABS: Add Urine Microscopic? YES
[2023-10-11 08:58] LABS: Hepatitis B Surface Antigen Negative (Negative)
[2023-10-11 09:16] LABS: Hepatitis B Surface Anti Res Negative
--- NOTE | 2023-10-11 09:38 | PC.NURSE ---
Pt currently in dialysis, no 3 hr EKG obtained
--- NOTE | 2023-10-11 09:40 | PM.CNNEP ---
Assessment and Plan Assessment and plan (1) End stage renal disease: Code(s): N18.6 - End stage renal disease Status: Chronic Assessment and Plan: HD today continue T/T/S dialysis schedule while hospitalized follow electrolytes, volume status, and clearance (2) Acute respiratory failure with hypoxia: Code(s): J96.01 - Acute respiratory failure with hypoxia Status: Acute Assessment and Plan: multifactorial etiology: mild fluid overload/pulmonary edema CHF COPD exacerbation relative anemia pneumonia(?) deconditioning fluid removal with HD as tolerated COVID/RSV/influenza ruled out on antibiotics nebulizer treatments and steroids supplemental oxygen - wean as tolerated follow respirator status (3) Hypertension: Qualifiers: Hypertension type: essential hypertension Qualified Code(s): I10 - Essential (primary) hypertension Code(s): I10 - Essential (primary) hypertension Status: Chronic Assessment and Plan: better control at this element of hypertensive urgency (with flash pulmonary edema?) on admission continue home medications follow trend of hemodynaics (4) Anemia: Qualifiers: Anemia type: unspecified type Qualified Code(s): D64.9 - Anemia, unspecified Code(s): D64.9 - Anemia, unspecified Status: Chronic Assessment and Plan: related to ESRD Epogen with HD follow trend of H/H I will continue follow the patient with you while she remains hospitalized make further recommendations as deemed necessary. Thank you for allowing me to participate in the care this patient. Plan History of Present Illness Reason for Consult Consult date: 10/11/23 Reason for consult: end stage renal disease Chief Complaint Chief complaint: copd exacerbation,acute hypoxic respiratory failur History of Present Illness Narrative: The patient is a 77-year-old female with a past medical history as outlined below who presented to [facility] Emergency room due to complaints of shortness of breath or cough. The patient stated that she got up this morning to go to her scheduled dialysis treatment and noticed that she felt more short of breath at that time in association with increased cough. She reports that yesterday evening before she went to bed she felt fairly well from a respiratory perspective. He denies any fevers, chills, or any sick contacts as well. She denies any chest pain either. Given these constellation of symptoms, she presented to the emergency room for further assessment. Workup and evaluation emergency room demonstrated she was quite hypertensive on presentation in association with tachypnea and increased work of breathing. She was initiated on nebulizer treatments as well as IV steroids to the concerns for a possible COPD exacerbation given her history. Following her breathing treatment, she was less tachypneic and felt somewhat better and was able to converse more with the ER staff. Her chest x-ray demonstrated hazy bibasilar disease consistent with moderate pulmonary edema and routine blood work demonstrated a CBC with some worsening anemia but no evidence of her leukocytosis, normal troponin, and renal function consistent with her known history of end-stage renal disease without any critical electrolyte abnormalities. COVID, influenza, and RSV viral studies were negative. Given her suspected COPD exacerbation in conjunction with mild fluid overload, appropriate cultures were obtained and she was initiated on IV antibiotics and subsequently admitted to the hospital for further evaluation and therapy. Renal consultation was requested due to her end-stage renal disease. The patient normally dialyzes on a Tuesday, , Tuesday schedule under the care of Dr. Joshua Motley at [facility]. From a dialysis perspective, she usually does fairly well with relati
[2023-10-11 09:49] LABS: Troponin I 0.031 ng/mL (0.000-0.034)
--- NOTE | 2023-10-11 10:59 | PC.NURSE ---
dialysis nurse called down and states that pt is 10/10 pain and requesting pain medication. Called hospitalist and orders were placed for meds
[2023-10-11] MEDS: MORPHINE SULFATE (*CRX) 2 MG/ML INJ IV PUSH (11:19)
--- NOTE | 2023-10-11 12:39 | ADMGEN ---
This patient, Alina Allen, was admitted to 3 [facility] Surg Room 315-01. Patient/family oriented to hospital policies and general routines including ID bracelet, bed and alarms, visiting hours, pain management, procedures, bathroom and other care routines, personal items, smoking policy, room service/diet, and visiting hours. Information on how to activate the Rapid Response Team has been discussed. Patient/Family are encouraged to report perceived risks to care and to ask questions if they do not understand what they are told or what they should do.
[2023-10-11 13:50] LABS: Troponin I 0.022 ng/mL (0.000-0.034)
--- NOTE | 2023-10-11 14:59 | PM.IMHP ---
H&P: HPI History of Present Illness Date/Time: 10/11/23 14:59 Chief Complaint: shortness of breath Narrative: This is a 77-year-old female with end stage renal disease on hemodialysis, hypertension, combined systolic and diastolic congestive heart failure (EF as low as 20-25% in 04/2021 with an EF of > 70% on echocardiogram in April 2023), peripheral vascular disease, chronic obstructive pulmonary disease, and anemia related to chronic kidney disease who presented to the emergency department for evaluation of shortness of breath. The patient provides the following history. She felt fine when she went to bed last night however when she woke up to get ready for dialysis she was extremely short of breath and called 911. On EMS arrival the patient was reportedly grunting and had an SpO2 of 85% on room air. In the ED: She was afebrile on arrival with a blood pressure of 190/61 and an SpO2 of 100% on 2 L. labs were significant for a WBC count of 8.1, hemoglobin 9.7, BUN 23, creatinine 3.10, potassium 3.6. Respiratory panel was negative. Chest x-ray showed findings of [id number] pulmonary edema and small right pleural effusion. She received an hour long nebulizer and Solu-Medrol and reports feeling better thereafter. She is being admitted in this setting for further treatment and dialysis. since admission she complained of low back pain with no recent injury. Her breathing has improved significantly and was seen during dialysis. Review of Systems Review of Systems: - CONSTITUTIONAL: Denies weight loss, fever and chills. - HEENT: Denies changes in vision and hearing - RESPIRATORY: Reports SOB and cough. - CV: Denies palpitations and CP. - GI: Denies abdominal pain, nausea, vomiting and diarrhea. - : Denies dysuria and urinary frequency. - MSK: Denies myalgia and joint pain. complains of low back pain - SKIN: Denies rash and pruritus. - NEUROLOGICAL: Denies headache and syncope. - PSYCHIATRIC: Denies recent changes in mood. Denies anxiety and depression. [facility] Past Medical History Medical History (System 10/11/23 @ 08:34 by Jann Deng) Cardiomyopathy Presumed ischemic with moderately sized moderately severe reversible defect and small mild non reversible infarct on Lexiscan stress on 09/12/2020. Chronic anemia History of blood transfusion. Combined systolic and diastolic congestive heart failure Echocardiogram on 09/10/2020 EF of 20 to 25%, grade 1 diastolic dysfunction, reduced RV systolic function. 12/2020 echo EF 40-46% with segmental wall motion abnormalities COPD with emphysema End-stage renal disease on hemodialysis Hyperlipidemia Hypertension Peripheral arterial disease Surgical History Surgical History History of colonoscopy History of colon polyps, internal hemorrhoids, and diverticulosis. History of esophagogastroduodenoscopy History of gastric erosions, gastric polyps, and duodenal AVMs. History of revascularization procedure of lower extremity (10/2019) Bilateral lower extremity stents per Dr. Carrillo. History of vascular surgery (06/12/13) Aorto bi-iliac bypass graft per Dr. Carrillo. Family History Family History Mother Alzheimer disease Father Emphysema of lung Social History Social History (System 10/11/23 @ 08:34 by Jann Deng) Social History: Surrogate medical decision maker: Dhaval Allen, son. Code status: Full code. Smoking packs per day: 1 Smoking cigarettes per day: 20.0 Years smoked: 55 Smoking pack-years: 55.00 Smoking status: Never smoker Second hand tobacco smoke exposure: Yes Alcohol intake: current Drinks per week: 1 Substance use: never Substance use type: does not use Do You Feel Safe in your Home?: Yes Lack of Transportation: No Lack of Food: Never True Current Housing: I Have Housing Concerned About Future Housing:
[2023-10-11] MEDS: carvediloL 12.5 MG TABLET PO (17:28)
[2023-10-11] MEDS: methylPREDNISolone SOD SUCC 40 MG VIAL IV PUSH ×2 (17:28→22:52)
[2023-10-11] MEDS: hydrALAZINE HCL 25 MG TABLET PO ×2 (17:29→22:52)
[2023-10-11] MEDS: IPRATROPIUM 0.5 MG/ALBUTEROL SULFATE 2.5 MG AMPUL.NEB 3 ML INHALATION (20:20)
[2023-10-11] MEDS: MELATONIN 3 MG TABLET PO (21:13)
[2023-10-11] MEDS: TICAGRELOR 90 MG TABLET PO (21:14)
[2023-10-11] MEDS: ATORVASTATIN 40 MG TABLET 80 MG PO (21:14)
[2023-10-11] MEDS: HEPARIN SODIUM 5,000 UNITS/ML VIAL 5000 UNITS SUB-Q (21:14)
[2023-10-11] MEDS: traZODone HCL 50 MG TABLET PO (21:14)
[2023-10-11] MEDS: oxyBUTYnin CHLORIDE 5 MG TABLET PO (21:14)
[2023-10-12] VITALS (26 sets, daily range): BP systolic 164–242; BP diastolic 44–82; PULSE 73–95; RESP 16–24; TEMP 36.4–36.8; O2SAT 92–100; BMI 20.3
[2023-10-12] MEDS: MORPHINE SULFATE (*CRX) 2 MG/ML INJ IV PUSH (02:02)
[2023-10-12] MEDS: IPRATROPIUM 0.5 MG/ALBUTEROL SULFATE 2.5 MG AMPUL.NEB 3 ML INHALATION ×4 (02:22→19:42)
[2023-10-12] MEDS: hydrALAZINE HCL 20 MG/ML VIAL 10 MG IV PUSH (05:47)
[2023-10-12 06:26] LABS: Hematocrit 26.1 % (37.0-47.0); Hemoglobin 9.4 g/dL (12.0-15.0); Immature Granulocyte Absolute 0.03 K/mm3 (0.00-0.031); Immature Granulocyte Percent A 0.4 % (0-0.5); Lymphocytes Absolute Auto 0.34 K/mm3 (0.9-3.2); Lymphocytes Percent Auto 4.4 % (18.3-44.2); Mean Corpuscular Hemoglobin 29.7 pg (26-34); Mean Corpuscular Volume 82.6 fl (80-100); Mean Platelet Volume 9.9 fl (7.4-10.4); Monocytes Absolute Auto 0.3 K/mm3 (0.1-0.6); Monocytes Percent Auto 3.5 % (2.6-8.5); Neutrophils Percent Auto 91.7 % (45.5-73.1); Platelet Count Result 138 k/mm3 (150-375); Red Blood Count 3.16 M/mm3 (4.2-5.4); Red Cell Distribution Width 16.5 % (11.5-14.5); White Blood Count 7.7 K/mm3 (4.5-10.0)
[2023-10-12 06:42] LABS: Sodium 135 mmol/L (137-145)
[2023-10-12 06:43] LABS: Alanine Aminotransferase 10 U/L (6-35); Albumin Level 3.4 g/dL (3.5-5.1); Alkaline Phosphatase 89 U/L (38-126); Anion Gap 7 mmol/L (4-12); Aspartate Amino Transferase 22 U/L (14-36); Bilirubin,Total 0.7 mg/dL (0.2-1.3); Blood Urea Nitrogen 24 mg/dL (7-17); Calcium 8.6 mg/dL (8.4-10.2); Carbon Dioxide 23 mmol/L (22-30); Chloride 105 mmol/L (98-107); Estimated Glomerular Filt Rate 25; Glucose 129 mg/dL (65-110); Magnesium 1.8 mg/dL (1.6-2.3); Phosphorus 4.2 mg/dL (2.5-4.5); Potassium 3.9 mmol/L (3.4-5.0)
[2023-10-12] MEDS: hydrALAZINE HCL 20 MG/ML VIAL 5 MG IV PUSH ×2 (06:47→21:31)
[2023-10-12] MEDS: ISOSORBIDE MONONITRATE 30 MG TAB.ER.24H PO (08:03)
[2023-10-12] MEDS: HEPARIN SODIUM 5,000 UNITS/ML VIAL 5000 UNITS SUB-Q ×2 (08:04→20:33)
[2023-10-12] MEDS: TICAGRELOR 90 MG TABLET PO ×2 (08:04→20:33)
[2023-10-12] MEDS: hydrALAZINE HCL 25 MG TABLET PO ×2 (08:04→16:51)
[2023-10-12] MEDS: methylPREDNISolone SOD SUCC 40 MG VIAL IV PUSH ×2 (08:04→16:51)
[2023-10-12] MEDS: lisinopriL 20 MG TABLET PO (08:04)
[2023-10-12] MEDS: carvediloL 12.5 MG TABLET PO ×2 (08:04→16:51)
[2023-10-12] MEDS: PANTOPRAZOLE 40 MG TABLET PO (08:05)
[2023-10-12] MEDS: ASPIRIN 81 MG ENTERIC TABLET PO (08:05)
--- NOTE | 2023-10-12 12:38 | PM.PNNEP ---
Progress Note: A&P Assessment and Plan (1) End stage renal disease: Code(s): N18.6 - End stage renal disease Status: Chronic Assessment and Plan: HD tomorrow continue T/T/S dialysis schedule while hospitalized follow electrolytes, volume status, and clearance (2) Acute respiratory failure with hypoxia: Code(s): J96.01 - Acute respiratory failure with hypoxia Status: Acute Assessment and Plan: multifactorial etiology: mild fluid overload/pulmonary edema CHF COPD exacerbation relative anemia pneumonia(?) deconditioning fluid removal with HD as tolerated COVID/RSV/influenza ruled out on antibiotics nebulizer treatments and steroids supplemental oxygen - wean as tolerated follow respirator status (3) Hypertension: Qualifiers: Hypertension type: essential hypertension Qualified Code(s): I10 - Essential (primary) hypertension Code(s): I10 - Essential (primary) hypertension Status: Chronic Assessment and Plan: better control at this element of hypertensive urgency (with flash pulmonary edema?) on admission continue home medications follow trend of hemodynaics (4) Anemia: Qualifiers: Anemia type: unspecified type Qualified Code(s): D64.9 - Anemia, unspecified Code(s): D64.9 - Anemia, unspecified Status: Chronic Assessment and Plan: related to ESRD Epogen with HD follow trend of H/H Will continue to follow. Plan Subjective Date/time seen: 10/12/23 12:38 Interval history: Follow-up for end stage renal disease on hemodialysis. Tolerated dialysis treatment yesterday without any issues or problems; breathing/respiratory status seems to be doing better but still reports some shortness of breath, upper airway congestion, and intermittent wheezing; no apparent issues/events overnight or earlier this AM. Objective Data Vital Signs Vital Signs: Vital Signs Temp Pulse Resp BP Pulse Ox O2 Del Method O2 Flow Rate 10/12/23 12:02 79 10/12/23 09:35 167/44 H 10/12/23 08:45 73 20 10/12/23 08:27 78 20 10/12/23 08:27 92 Room Air 10/12/23 08:04 84 10/12/23 07:35 189/58 H 10/12/23 06:00 98.2 F 84 18 210/78 H 95 10/12/23 04:00 77 10/12/23 00:00 80 10/12/23 02:30 73 22 H 10/12/23 02:22 74 94 Room Air 10/11/23 22:05 94 Room Air 10/12/23 02:22 74 24 H 10/11/23 20:00 73 10/11/23 22:00 98.0 F 76 18 192/62 H 94 10/11/23 20:00 Room Air 10/11/23 20:34 74 20 10/11/23 20:34 72 99 Nasal Cannula 2 10/11/23 20:20 72 22 H 10/11/23 18:07 76 16 96 Nasal Cannula 2 Intake/Output Intake/Output: Intake & Output 10/09/23 10/10/23 10/11/23 10/12/23 23:59 23:59 23:59 23:59 Intake Total 630 500 Output Total 1322 Balance -692 500 Meds/Results Medications: Active Medications Generic Name Dose Route Start Last Admin Trade Name Freq PRN Reason Stop Dose Admin Albuterol/Ipratropium 3 ml 10/12/23 20:00 Ipratropium 0.5 Mg/Albuterol Sulfate 2.5 Mg Ampul.Neb 3 Ml INHALATION Q6HRT [facility] Aspirin 81 mg 10/12/23 09:00 10/12/23 08:05 Aspirin 81 Mg Enteric Tablet PO 81 mg QAM [facility] Administration Atorvastatin Calcium 80 mg 10/11/23 21:00 10/11/23 21:14 Atorvastatin 40 Mg Tablet PO 80 mg HS [facility] Administration Carvedilol 12.5 mg 10/11/23 17:00 10/12/23 16:51 Carvedilol 12.5 Mg Tablet PO 12.5 mg BIDWM [facility] Administration Ergocalciferol 50,000 units 10/15/23 09:00 Ergocalciferol 50,000 Units Capsule PO Sa@0900 [facility] Heparin Sodium (Porcine) 5,000 units 10/11/23 21:00 10/12/23 08:04 Heparin Sodium 5,000 Units/Ml Vial SUB-Q 5,000 units Q12HR [facility] Administration Hydralazine HCl 25 mg 10/11/23 17:00 10/12/23 16:51 Hydralazine Hcl 25 Mg Tablet PO 25 mg BI
--- NOTE | 2023-10-12 12:38 | P.PNNP_ITS ---
Progress Note: A&P Assessment and Plan (1) End stage renal disease: Code(s): N18.6 - End stage renal disease Status: Chronic Assessment and Plan: * HD tomorrow * continue T/T/S dialysis schedule while hospitalized * follow electrolytes, volume status, and clearance (2) Acute respiratory failure with hypoxia: Code(s): J96.01 - Acute respiratory failure with hypoxia Status: Acute Assessment and Plan: * multifactorial etiology: * mild fluid overload/pulmonary edema * CHF * COPD exacerbation * relative anemia * pneumonia(?) * deconditioning * fluid removal with HD as tolerated * COVID/RSV/influenza ruled out * on antibiotics * nebulizer treatments and steroids * supplemental oxygen - wean as tolerated * follow respirator status (3) Hypertension: Qualifiers: Hypertension type: essential hypertension Qualified Code(s): I10 - Essential (primary) hypertension Code(s): I10 - Essential (primary) hypertension Status: Chronic Assessment and Plan: * better control at this * element of hypertensive urgency (with flash pulmonary edema?) on admission * continue home medications * follow trend of hemodynaics (4) Anemia: Qualifiers: Anemia type: unspecified type Qualified Code(s): D64.9 - Anemia, unspecified Code(s): D64.9 - Anemia, unspecified Status: Chronic Assessment and Plan: * related to ESRD * Epogen with HD * follow trend of H/H Will continue to follow. Plan Subjective Date/time seen: 10/12/23 12:38 Interval history: Follow-up for end stage renal disease on hemodialysis. Tolerated dialysis treatment yesterday without any issues or problems; coleen athing/respiratory status seems to be doing better but still reports some shortness of breath, upper airway congestion, and intermittent wheezing; no apparent issues/events overnight or earlier this AM. Objective Data Vital Signs Vital Signs: Vital Signs Temp Pulse Resp BP Pulse Ox O2 Del Method O2 Flow Rate 10/12/23 12:02 79 10/12/23 09:35 167/44 H 10/12/23 08:45 73 20 10/12/23 08:27 78 20 10/12/23 08:27 92 Room Air 10/12/23 08:04 84 10/12/23 07:35 189/58 H 10/12/23 06:00 98.2 F 84 18 210/78 H 95 10/12/23 04:00 77 10/12/23 00:00 80 10/12/23 02:30 73 22 H 10/12/23 02:22 74 94 Room Air 10/11/23 22:05 94 Room Air 10/12/23 02:22 74 24 H 10/11/23 20:00 73 10/11/23 22:00 98.0 F 76 18 192/62 H 94 10/11/23 20:00 Room Air 10/11/23 20:34 74 20 10/11/23 20:34 72 99 Nasal Cannula 2 10/11/23 20:20 72 22 H 10/11/23 18:07 76 16 96 Nasal Cannula 2 Intake/Output Intake/Output: Intake & Output 10/09/23 10/10/23 10/11/23 10/12/23 23:59 23:59 23:59 23:59 Intake Total 630 500 Output Total 1322 Balance -692 500 Meds/Results Medications: Active Medications Generic Name Dose Route Start Last Admin Trade Name Freq PRN Reason Stop Dose Admin
--- NOTE | 2023-10-12 14:03 | PM.IMPN ---
Progress Note: A&P Assessment and Plan (1) Acute exacerbation of chronic obstructive pulmonary disease: Code(s): J44.1 - Chronic obstructive pulmonary disease with (acute) exacerbation Status: Acute (2) Acute hypoxic respiratory failure: Code(s): J96.01 - Acute respiratory failure with hypoxia Status: Acute Assessment and Plan: Shortness of breath likely combination pulmonary edema in COPD exacerbation. Improved with Solu Medrol and DuoNeb treatment which will be continued. Continue on Levaquin for antibiotic for COPD exacerbation Respiratory panel was negative. Chest x-ray showed findings of [id number] pulmonary edema and small right pleural effusion. She received an hour long nebulizer and Solu-Medrol and reports feeling better thereafter. continue breathing treatments and iv solumedrol today Order walk study today Plan Dc izabella after dialysis (3) ESRD (end stage renal disease) on dialysis: Code(s): N18.6 - End stage renal disease; Z99.2 - Dependence on renal dialysis Status: Acute Assessment and Plan: She is being admitted in this setting for further treatment and dialysis. Pt to have dialysis izabella AM amd Dc (4) PVD (peripheral vascular disease): Code(s): I73.9 - Peripheral vascular disease, unspecified Status: Chronic Assessment and Plan: ex smoker (5) Hypertension: Qualifiers: Hypertension type: essential hypertension Qualified Code(s): I10 - Essential (primary) hypertension Code(s): I10 - Essential (primary) hypertension Status: Chronic Assessment and Plan: chronic and stable (6) Cardiomyopathy: Code(s): I42.9 - Cardiomyopathy, unspecified Status: Chronic Assessment and Plan: stable (7) CHF (congestive heart failure): Qualifiers: Heart failure type: combined systolic and diastolic Heart failure chronicity: acute on chronic Qualified Code(s): I50.43 - Acute on chronic combined systolic (congestive) and diastolic (congestive) heart failure Code(s): I50.9 - Heart failure, unspecified Status: Acute Assessment and Plan: stable (8) Combined systolic and diastolic congestive heart failure: Code(s): I50.40 - Unspecified combined systolic (congestive) and diastolic (congestive) heart failure Status: Acute Assessment and Plan: stable (9) Hyperlipidemia: Code(s): E78.5 - Hyperlipidemia, unspecified Status: Acute Assessment and Plan: stable Plan Subjective Date/time seen: 10/12/23 14:03 Interval history: Pt feeling better mildly SOB and wheezy Review of Systems Review of Systems: SOB and wheezy Exam Narrative: GENERAL: Cachectic, well-nourished HEAD: Normocephalic, atraumatic. EYES: PERRLA and EOMI. ENT: Nares clear. Mucous membranes moist. NECK: Supple. CHEST: No respiratory distress coarse breath sound bilaterally diminished breath sound the basis HEART: Regular rate and rhythm. Normal peripheral pulses. ABDOMEN: Soft, nontender, nondistended. EXTREMITIES: Normal range of motion. No edema. Fistula present on LUE, strong thrill palpated. lower extremity edema 1+ SKIN: Warm, dry, no rash. NEURO: No focal deficits. Alert and oriented x3. PSYCH: Normal mood and affect. Objective Data Vital Signs Vital Signs: Vital Signs - 24 hr 10/11/23 17:28 10/11/23 16:00 10/11/23 18:07 Temperature Pulse Rate 76 81 76 Respiratory Rate 16 Blood Pressure Pulse Oximetry 96 Oxygen Delivery Nasal Cannula Oxygen Flow Rate 2 10/11/23 20:20 10/11/23 20:34 10/11/23 20:34 Temperature Pulse Rate 72 72 74 Respiratory Rate 22 H 20 Blood Pressure Pulse Oximetry 99 Oxygen Delivery Nasal Cannula Oxygen Flow Rate 2 10/11/23 20:00 10/11/23 22:00 10/11/23 20:00 Temperature 36.7 C Pulse Rate 76 73 Respiratory Rate 18 Blood Pressure 192/62 H Pulse
--- NOTE | 2023-10-12 14:45 | PCRCNOTE ---
HOME O2 EVAL COMPLETER. PATIENT DOES NOT REQUIRE HOME O2 AT THIS TIME. RN NOTIFIED.
[2023-10-12] MEDS: MELATONIN 3 MG TABLET PO (20:32)
[2023-10-12] MEDS: ATORVASTATIN 40 MG TABLET 80 MG PO (20:32)
[2023-10-12] MEDS: traZODone HCL 50 MG TABLET PO (20:33)
[2023-10-12] MEDS: oxyBUTYnin CHLORIDE 5 MG TABLET PO (20:33)
[2023-10-13] VITALS (30 sets, daily range): BP systolic 130–213; BP diastolic 58–92; PULSE 62–107; RESP 16–20; TEMP 36.1–37.1; O2SAT 91–96
[2023-10-13] MEDS: methylPREDNISolone SOD SUCC 40 MG VIAL IV PUSH ×2 (01:10→08:28)
[2023-10-13] MEDS: hydrALAZINE HCL 20 MG/ML VIAL 5 MG IV PUSH (01:41)
[2023-10-13] MEDS: IPRATROPIUM 0.5 MG/ALBUTEROL SULFATE 2.5 MG AMPUL.NEB 3 ML INHALATION ×2 (01:57→07:57)
[2023-10-13 06:55] LABS: Basophils Percent Auto 0.1 % (0.2-1.2); Hematocrit 27.1 % (37.0-47.0); Hemoglobin 9.5 g/dL (12.0-15.0); Immature Granulocyte Absolute 0.14 K/mm3 (0.00-0.031); Immature Granulocyte Percent A 1.1 % (0-0.5); Lymphocytes Absolute Auto 0.25 K/mm3 (0.9-3.2); Lymphocytes Percent Auto 1.9 % (18.3-44.2); Mean Corpuscular HGB Conc 35.1 g/dl (32-36); Mean Corpuscular Hemoglobin 29.1 pg (26-34); Mean Corpuscular Volume 82.9 fl (80-100); Mean Platelet Volume 9.5 fl (7.4-10.4); Monocytes Absolute Auto 0.3 K/mm3 (0.1-0.6); Monocytes Percent Auto 2.1 % (2.6-8.5); Neutrophils Absolute Auto 12.5 K/mm3 (1.3-6.7); Neutrophils Percent Auto 94.8 % (45.5-73.1); Platelet Count Result 153 k/mm3 (150-375); Red Blood Count 3.27 M/mm3 (4.2-5.4); Red Cell Distribution Width 16.5 % (11.5-14.5); White Blood Count 13.1 K/mm3 (4.5-10.0)
[2023-10-13 07:09] LABS: Alanine Aminotransferase 10 U/L (6-35); Albumin Level 3.4 g/dL (3.5-5.1); Alkaline Phosphatase 79 U/L (38-126); Anion Gap 9 mmol/L (4-12); Aspartate Amino Transferase 23 U/L (14-36); Bilirubin,Total 0.7 mg/dL (0.2-1.3); Blood Urea Nitrogen 45 mg/dL (7-17); Calcium 8.1 mg/dL (8.4-10.2); Carbon Dioxide 22 mmol/L (22-30); Chloride 105 mmol/L (98-107); Estimated Glomerular Filt Rate 18; Glucose 123 mg/dL (65-110); Magnesium 1.9 mg/dL (1.6-2.3); Phosphorus 4.8 mg/dL (2.5-4.5); Sodium 136 mmol/L (137-145)
--- NOTE | 2023-10-13 08:30 | PC.NURSE ---
Discussed with patient about her BP meds because dialysis is at 1300. Patient refused to take BP meds now,says see will take after dialysis.
[2023-10-13] MEDS: NIFEdipine 30 MG TAB.ER.24 PO (08:32)
--- NOTE | 2023-10-13 14:25 | P.PNNP_ITS ---
Progress Note: A&P Assessment and Plan (1) End stage renal disease: Code(s): N18.6 - End stage renal disease Status: Chronic Assessment and Plan: * HD today * continue T/T/S dialysis schedule while hospitalized * follow electrolytes, volume status, and clearance (2) Acute respiratory failure with hypoxia: Code(s): J96.01 - Acute respiratory failure with hypoxia Status: Acute Assessment and Plan: * multifactorial etiology: * mild fluid overload/pulmonary edema * CHF * COPD exacerbation * relative anemia * pneumonia(?) * deconditioning * fluid removal with HD as tolerated * COVID/RSV/influenza ruled out * on antibiotics * nebulizer treatments and steroids * supplemental oxygen - weaned off * follow respirator status (3) Hypertension: Qualifiers: Hypertension type: essential hypertension Qualified Code(s): I10 - Essential (primary) hypertension Code(s): I10 - Essential (primary) hypertension Status: Chronic Assessment and Plan: * better control at this * element of hypertensive urgency (with flash pulmonary edema?) on admission * continue home medications * follow trend of hemodynaics (4) Anemia: Qualifiers: Anemia type: unspecified type Qualified Code(s): D64.9 - Anemia, unspecified Code(s): D64.9 - Anemia, unspecified Status: Chronic Assessment and Plan: * related to ESRD * Epogen with HD * follow trend of H/H Will continue to follow. Plan Subjective Date/time seen: 10/13/23 14:25 Interval history: Follow-up for end stage renal disease on hemodialysis. Tolerating dialysis treatment at the time of my visit (seen on HD on 2:15PM); breathing/respiratory status has improved if not stabilized; off supplemental oxygen currently; no apparent distress noted; no other issues/events overnight or earlier this AM. Objective Data Vital Signs Vital Signs: Vital Signs Temp Pulse Resp BP Pulse Ox O2 Del Method 10/13/23 14:15 82 191/84 H 10/13/23 14:04 101 H 213/91 H 10/13/23 13:52 97.9 F 85 16 200/88 H 10/13/23 12:00 87 10/13/23 08:00 95 10/13/23 08:00 Room Air 10/13/23 08:07 81 18 10/13/23 07:57 91 Room Air 10/13/23 07:57 98 18 07/04/24 04:00 95 10/13/23 00:00 89 10/12/23 20:00 82 10/13/23 05:10 96.9 F L 97 20 174/92 H 96 10/13/23 02:08 80 18 10/13/23 01:58 79 18 10/12/23 19:54 87 20 10/13/23 01:45 196/80 H 10/12/23 22:20 224/72 H 10/12/23 20:30 98 F 80 16 242/74 H 97 10/12/23 22:40 190/82 H 10/12/23 19:44 85 20 10/12/23 19:44 94 Room Air 10/12/23 16:00 89 10/12/23 16:03 77 10/12/23 16:51 86 10/12/23 15:52 164/72 H Intake/Output Intake/Output: Intake & Output 10/10/23 10/11/23 10/12/23 10/13/23 23:59 23:59 23:59 23:59 Intake Total 630 500 640 Output Total 1322 Balance -692 500 640 Meds/Results Medications: Active Medications
--- NOTE | 2023-10-13 14:25 | PM.PNNEP ---
Progress Note: A&P Assessment and Plan (1) End stage renal disease: Code(s): N18.6 - End stage renal disease Status: Chronic Assessment and Plan: HD today continue T/T/S dialysis schedule while hospitalized follow electrolytes, volume status, and clearance (2) Acute respiratory failure with hypoxia: Code(s): J96.01 - Acute respiratory failure with hypoxia Status: Acute Assessment and Plan: multifactorial etiology: mild fluid overload/pulmonary edema CHF COPD exacerbation relative anemia pneumonia(?) deconditioning fluid removal with HD as tolerated COVID/RSV/influenza ruled out on antibiotics nebulizer treatments and steroids supplemental oxygen - weaned off follow respirator status (3) Hypertension: Qualifiers: Hypertension type: essential hypertension Qualified Code(s): I10 - Essential (primary) hypertension Code(s): I10 - Essential (primary) hypertension Status: Chronic Assessment and Plan: better control at this element of hypertensive urgency (with flash pulmonary edema?) on admission continue home medications follow trend of hemodynaics (4) Anemia: Qualifiers: Anemia type: unspecified type Qualified Code(s): D64.9 - Anemia, unspecified Code(s): D64.9 - Anemia, unspecified Status: Chronic Assessment and Plan: related to ESRD Epogen with HD follow trend of H/H Will continue to follow. Plan Subjective Date/time seen: 10/13/23 14:25 Interval history: Follow-up for end stage renal disease on hemodialysis. Tolerating dialysis treatment at the time of my visit (seen on HD on 2:15PM); breathing/respiratory status has improved if not stabilized; off supplemental oxygen currently; no apparent distress noted; no other issues/events overnight or earlier this AM. Objective Data Vital Signs Vital Signs: Vital Signs Temp Pulse Resp BP Pulse Ox O2 Del Method 10/13/23 14:15 82 191/84 H 10/13/23 14:04 101 H 213/91 H 10/13/23 13:52 97.9 F 85 16 200/88 H 10/13/23 12:00 87 10/13/23 08:00 95 10/13/23 08:00 Room Air 10/13/23 08:07 81 18 10/13/23 07:57 91 Room Air 10/13/23 07:57 98 18 10/13/23 04:00 95 10/13/23 00:00 89 10/12/23 20:00 82 10/13/23 05:10 96.9 F L 97 20 174/92 H 96 10/13/23 02:08 80 18 10/13/23 01:58 79 18 10/12/23 19:54 87 20 10/13/23 01:45 196/80 H 10/12/23 22:20 224/72 H 10/12/23 20:30 98 F 80 16 242/74 H 97 10/12/23 22:40 190/82 H 10/12/23 19:44 85 20 10/12/23 19:44 94 Room Air 10/12/23 16:00 89 10/12/23 16:03 77 10/12/23 16:51 86 10/12/23 15:52 164/72 H Intake/Output Intake/Output: Intake & Output 10/10/23 10/11/23 10/12/23 10/13/23 23:59 23:59 23:59 23:59 Intake Total 630 500 640 Output Total 1322 Balance -692 500 640 Meds/Results Medications: Active Medications Generic Name Dose Route Start Last Admin Trade Name Freq PRN Reason Stop Dose Admin Albuterol/Ipratropium 3 ml 10/12/23 20:00 10/13/23 13:35 Ipratropium 0.5 Mg/Albuterol Sulfate 2.5 Mg Ampul.Neb 3 Ml INHALATION Not Given Q6HRT [facility] Aspirin 81 mg 10/12/23 09:00 10/12/23 08:05 Aspirin 81 Mg Enteric Tablet PO 81 mg QAM [facility] Administration Atorvastatin Calcium 80 mg 10/11/23 21:00 10/12/23 20:32 Atorvastatin 40 Mg Tablet PO 80 mg HS [facility] Administration Carvedilol 12.5 mg 10/11/23 17:00 10/12/23 16:51 Carvedilol 12.5 Mg Tablet PO 12.5 mg BIDWM [facility] Administration Epoetin Nathan-epbx 10,000 units 10/13/23 20:00 Epoetin Nathan-Epbx 10,000 Units/Ml Vial IV PUSH 10/13/23 20:01 ONCE ONE Ergocalciferol 50,000 units 10/15/23 09:00 Ergocalciferol 50,000 Units Capsule PO Sa@0900 [facility] Heparin Sodium (Porcine) 5,000 units
--- NOTE | 2023-10-13 14:44 | PM.DS ---
DS: Admitting Diagnosis Discharge Date 10/13/2023 Admitting Diagnosis Acute on chronic respiratory failure with hypoxia/COPD/CHF/ESRD DS: Discharge Diagnosis Discharge Diagnosis (1) Acute exacerbation of chronic obstructive pulmonary disease: Code(s): J44.1 - Chronic obstructive pulmonary disease with (acute) exacerbation Status: Acute (2) Acute hypoxic respiratory failure: Code(s): J96.01 - Acute respiratory failure with hypoxia Status: Acute Assessment and Plan: Shortness of breath likely combination pulmonary edema in COPD exacerbation. Improved with Solu Medrol and DuoNeb treatment which will be continued. Continue on Levaquin for antibiotic for COPD exacerbation Respiratory panel was negative. Chest x-ray showed findings of [id number] pulmonary edema and small right pleural effusion. She received an hour long nebulizer and Solu-Medrol and reports feeling better thereafter. continue breathing treatments and iv solumedrol today Order walk study today Plan Dc izabella after dialysis (3) ESRD (end stage renal disease) on dialysis: Code(s): N18.6 - End stage renal disease; Z99.2 - Dependence on renal dialysis Status: Acute Assessment and Plan: She is being admitted in this setting for further treatment and dialysis. Pt to have dialysis izabella AM amd Dc (4) PVD (peripheral vascular disease): Code(s): I73.9 - Peripheral vascular disease, unspecified Status: Chronic Assessment and Plan: ex smoker (5) Hypertension: Qualifiers: Hypertension type: essential hypertension Qualified Code(s): I10 - Essential (primary) hypertension Code(s): I10 - Essential (primary) hypertension Status: Chronic Assessment and Plan: chronic and stable (6) Cardiomyopathy: Code(s): I42.9 - Cardiomyopathy, unspecified Status: Chronic Assessment and Plan: stable (7) CHF (congestive heart failure): Qualifiers: Heart failure chronicity: acute on chronic Heart failure type: combined systolic and diastolic Qualified Code(s): I50.43 - Acute on chronic combined systolic (congestive) and diastolic (congestive) heart failure Code(s): I50.9 - Heart failure, unspecified Status: Acute Assessment and Plan: stable (8) Combined systolic and diastolic congestive heart failure: Code(s): I50.40 - Unspecified combined systolic (congestive) and diastolic (congestive) heart failure Status: Acute Assessment and Plan: stable (9) Hyperlipidemia: Code(s): E78.5 - Hyperlipidemia, unspecified Status: Acute Assessment and Plan: stable Plan DS: Summary Hospital Course Reason for hospitalization: Acute on chronic respiratory failure with hypoxia/COPD/CHF/ESRD Hospital Course: Patient was a 77 year old female who had presented to the ED with complaints of SOB. Patient has a history of ESRD with hemodialysis, CHF, COPD, HTN, Combined HF. Patient reported she had woke the morning of admission with increased SOB when getting ready for her dialysis appointment and came to the ED. Upon arrival to the ED her SPo2 was reported 85% on room air after being placed on 2L supplemental oxygen she recovered with a SPO2 of 100%. Labs were unremarkable CXR showed mild-moderate pulmonary edema and small pleural effusion. Nephrology was consulted and patient was treated for mutifocal acute respiratory failure with hypoxia secondary to ESRD, COPD and chf. Patient was dialyzed x 2 during admission and started on prednisone, Levaquin, and Dounebs with overall improvement. 10/14/2023: DISCHARGED Patient with no complaints with no SOB and on RA. Patient was dialysis with no events and discharged back to home will have next hemodialysis Tuesday. Patient with overall improvement following fluid removal and therapy for COPD. Walk study completed no need for supplemental oxygen
[2023-10-13] MEDS: EPOETIN ALFA-EPBX 10,000 UNITS/ML VIAL 10000 UNITS IV PUSH (16:01)
[2023-10-13] MEDS: ONDANSETRON INJ 4 MG/2 ML VIAL IV PUSH (16:25)
[2023-10-13] MEDS: levoFLOXacin 500 MG TABLET PO (17:47)
[2023-10-13] MEDS: ASPIRIN 81 MG ENTERIC TABLET PO (17:47)
[2023-10-13] MEDS: TICAGRELOR 90 MG TABLET PO (17:47)
[2023-10-13] MEDS: PANTOPRAZOLE 40 MG TABLET PO (17:47)
[2023-10-13] MEDS: carvediloL 12.5 MG TABLET PO (17:48)
[2023-10-13] MEDS: ISOSORBIDE MONONITRATE 30 MG TAB.ER.24H PO (17:49)
[2023-10-13] MEDS: lisinopriL 20 MG TABLET PO (17:49)
[2023-10-13] MEDS: hydrALAZINE HCL 25 MG TABLET PO (17:49)
== END 2023-10-13 18:35 | disposition home health service (06) | DRG 190 ==
LOC: ANHED 07:26 → ANH3MEDSUR 08:09
PROVIDERS: Internal Medicine Nephrology; Admitting Provider Internal Medicine; Emergency Provider Student in an Organized Health Care Education/Training Program; PCP Nurse Practitioner Family; Visit Provider Nurse Practitioner Family
DX: J44.1 Chronic obstructive pulmonary disease with (acute) exacerbation (principal); I50.43 Acute on chronic combined systolic (congestive) and diastolic (congestive) heart failure; J96.01 Acute respiratory failure with hypoxia; N18.6 End stage renal disease; I13.2 Hypertensive heart and chronic kidney disease with heart failure and with stage 5 chronic kidney disease, or end stage renal disease; I42.9 Cardiomyopathy, unspecified; I25.10 Atherosclerotic heart disease of native coronary artery without angina pectoris; I73.9 Peripheral vascular disease, unspecified; J43.9 Emphysema, unspecified; D63.1 Anemia in chronic kidney disease; E78.5 Hyperlipidemia, unspecified; Z20.822 Contact with and (suspected) exposure to COVID-19; Z99.2 Dependence on renal dialysis; Z86.010 Personal history of colon polyps; Z79.82 Long term (current) use of aspirin
CPT/HCPCS: 36415; 71045; 72100; 72220; 80053; 81001; 83605; 83735; 84100; 84484; 85025; 85610; 85730; 86140; 86706; 87040; 87340; 87637; 93005; 94618; 94640; 96374; 97161; 97165; 99291; A9270; G0257; J0360; J1644; J1940; J1956; J2270; J2405; J2919; J7030; Q5105

== ENCOUNTER 2023-12-14 15:31 | Inpatient (IN) | payer MEDICARE, BC, SELFPAY ==
[2023-12-14] VITALS (61 sets, daily range): BP systolic 162–244; BP diastolic 63–99; PULSE 71–93; RESP 14–44; TEMP 36.4–36.8; O2SAT 93–100; BMI 19.1
--- NOTE | ~2023-12-14 | CT_ITS ---
EXAMINATION: CTA chest PE protocol DATE: 12/14/2023 18:20 INDICATION: Hypoxia. TECHNIQUE: Computed tomography angiography (CTA) of the chest was performed with 100 mL Omnipaque-350 intravenous contrast timed to evaluate the pulmonary arteries. Coronal maximum intensity projection 3D-reconstructions were created by the technologist. Automated exposure control and iterative reconst ruction technique were employed. The dose-length product was 151.07 mGy-cm. COMPARISON: Chest CT 09/09/2020 FINDINGS: There is moderate emphysema. There are moderate-sized right and small left pleural effusion s. There is dependent atelectasis bilaterally. There is septal thickening in the lungs, consistent wi th mild pulmonary edema. There is an aberrant right subclavian artery. There is calcified atheroscler osis of the aorta and many of the other arteries. Cardiomegaly is noted. No pericardial effusion. The re are coronary artery calcifications. The central pulmonary arteries are enlarged, consistent with p ulmonary arterial hypertension. There is no pulmonary embolus. There is severe thoracic spondylosis. IMPRESSION: 1. No pulmonary embolus. 2. Moderate emphysema. 3. Mild pulmonary edema. 4. Moderate-sized right and small left pleural effusions. Reviewed, dictated and finalized at location A.
--- NOTE | ~2023-12-14 | CT_ITS ---
EXAMINATION: CT brain wo con DATE: 12/14/2023 18:20 INDICATION: Headache. TECHNIQUE: Computed tomography (CT) of the head was performed without intravenous contrast. The mA wa s adjusted according to patient size. Iterative reconstruction technique was employed. The dose-lengt h product was 605.33 mGy-cm. COMPARISON: Head CT 05/13/2020 FINDINGS: There are scattered areas of low attenuation in the cerebral white matter. There is no intr acranial hemorrhage, acute infarction, or abnormal intracranial mass lesion. The ventricles are tae l in size. There is mild mucosal thickening in the paranasal sinuses. The mastoid air cells are tae l. There are likely changes of ocular lens replacement surgeries. IMPRESSION: 1. Worsened moderate nonspecific cerebral white matter disease, which likely represents chronic small vessel ischemic disease. Reviewed, dictated and finalized at location A. IMPRESSION: 1. Worsened moderate nonspecific cerebral white matter disease, which likely re presents chronic small vessel ischemic disease.
--- NOTE | ~2023-12-14 | XR_ITS ---
EXAMINATION: XR chest 1V portable DATE: 12/14/2023 16:24 INDICATION: Dyspnea. TECHNIQUE: A single frontal view of the chest was obtained. COMPARISON: Chest single view 10/11/2023 FINDINGS: There is a diffuse interstitial pattern in the lungs. There are airspace opacities at the l daniel bases. There are moderate-sized right and small left pleural effusions. No pneumothorax. Cardiome sunni is noted. There are surgical clips in the abdomen. IMPRESSION: 1. Diffuse lung disease with worsening at left lung base, likely mild pulmonary edema and basilar ate lectasis versus pneumonia. 2. Stable moderate-sized right and small left pleural effusions. 3. Cardiomegaly. Reviewed, dictated and finalized at location A. IMPRESSION: 1. Diffuse lung disease with worsening at left lung base, likely mild pulmonary edema and basilar atelectasis versus pneumonia. 2. Stable moderate-sized right and small left pleural effusions. 3. Cardiomegaly.
--- NOTE | 2023-12-14 15:52 | ECG_ITS ---
Test Date: 2023-12-14 16:50:20 Measurements Intervals [facility] Rate: 73 P: 53 MI: 125 QRS: 52 QRSD: 81 T: 46 QT: 411 QTc: 454 Interpretive Statements SINUS RHYTHM POSSIBLE LEFT ATRIAL ENLARGEMENT ANTEROSEPTAL INFARCT, AGE INDETERMINATE BORDERLINE ST-T WAVE ABNORMALITY- INFERIOR LEADS BASELINE ARTIFACT- I, II, III, AVR, AVL, AVF, V2, V4-V6 ABNORMAL ECG Compared to ECG 10/11/2023 05:55:32 No significant changes Electronically Signed On 12-14-2023 20:11:08 CDT by Gael Steward D.O.
--- NOTE | 2023-12-14 16:48 | ED.SOB ---
HPI - SOB/Dyspnea General Chief Complaint: Shortness of Breath/Dyspnea <Nica Edward PA-C - Last Filed: 12/14/23 19:41> Stated Complaint: SOB <Nica Edward PA-C - Last Filed: 12/14/23 19:41> Time Seen by Provider: 12/14/23 16:19 <Nica Edward PA-C - Last Filed: 12/14/23 19:41> History of Present Illness HPI Narrative: 77-year-old female with history of ESRD on Tuesday, , Tuesday dialysis schedule, CKD, LINNETTE, CHF, COPD , ischemic cardiomyopathy presents to the emergency department via EMS from home for shortness of breath. Patient states she has been feeling short of breath for approximately 1 week. She reports a productive cough. States she contacted EMS of shortness breath worsened. Upon EMS arrival she was found to be hypoxic and was started on 15 L non-rebreather. Upon her arrival to the ED she was weaned off of the non-rebreather and is now on 5 L nasal cannula. States she normally is not on O2. She reports lower extremity edema which has worsened over the past couple months. She states that she missed her dialysis appointment yesterday. Last run of dialysis was 4 days ago. She denies fever, chest pain, abdominal pain, N/ V/D. She is also reporting a headache. Denies vision changes, focal numbness or weakness. 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 Motley, she gets dialysis at [facility]. <Nica Edward PA-C - Last Filed: 12/14/23 19:41> Related Data Home Medications: Home Medications Medication Instructions Recorded Confirmed aspirin 81 mg tablet 81 mg PO DAILY 05/10/20 10/11/23 atorvastatin 20 mg tablet 80 mg PO HS 12/08/22 10/11/23 carvedilol 12.5 mg tablet 12.5 mg PO BIDWM 12/08/22 10/11/23 hydralazine 25 mg tablet 25 mg PO BID 12/08/22 10/11/23 melatonin 3 mg tablet 3 mg PO HS 12/08/22 10/11/23 omeprazole 40 mg capsule,delayed 40 mg PO DAILY 12/08/22 10/11/23 release oxybutynin chloride 5 mg tablet 5 mg PO HS 12/08/22 10/11/23 trazodone 50 mg tablet 50 mg PO HS 12/08/22 10/11/23 lisinopril 20 mg tablet 20 mg PO DAILY 09/04/23 10/11/23 ergocalciferol (vitamin D2) 1,250 50,000 unit PO BID 10/11/23 10/11/23 mcg (50,000 unit) capsule nifedipine 30 mg tablet,extended 30 mg PO QTUTHSA 10/11/23 10/11/23 release ticagrelor 90 mg tablet (Brilinta) 90 mg PO BID 10/11/23 10/11/23 <Nica Edward PA-C - Last Filed: 12/14/23 19:41> Allergies/Adverse Reactions: Allergies Allergy/AdvReac Type Severity Reaction Status Date / Time Penicillins Allergy Unknown Unknown,Ham Verified 12/14/23 16:56 h <Nica Edward PA-C - Last Filed: 12/14/23 19:41> Review of Systems Review of Systems: All systems reviewed & are unremarkable except as noted in HPI and below <Nica Edward PA-C - Last Filed: 12/14/23 19:41> [facility] Past Medical History Medical History: Medical History Cardiomyopathy Presumed ischemic with moderately sized moderately severe reversible defect and small mild non reversible infarct on Lexiscan stress on 09/12/2020. Chronic anemia History of blood transfusion. Combined systolic and diastolic congestive heart failure Echocardiogram on 09/10/2020 EF of 20 to 25%, grade 1 diastolic dysfunction, reduced RV systolic function. 12/2020 echo EF 40-46% with segmental wall motion abnormalities COPD with emphysema End-stage renal disease on hemodialysis Hyperlipidemia Hypertension Peripheral arterial disease <Nica Edward PA-C - Last Filed: 12/14/23 19:41> Surgical History Surgical History: Surgical History History of colonoscopy History of colon polyps, internal hemorrhoids, and diverticulosis. History of esophagogastroduodenoscopy History of gastric erosions, gastric polyps, and duodenal AVMs. History of revascularization procedure of lower extremity (10/2019) Bilateral lower extremity stents per Dr. Holman
[2023-12-14 16:51] LABS: Alveolar/Arterial O2 Gradient 160.2 mmHg; Fractional Inspired Oxygen 40 %; HCO3 ABG 24.5 mEq/l (22.0-26.0); Oxyhemoglobin 93.3 % THb (90.0-100.0); PCO2 ABG 39.1 mmHg (35.0-45.0); Total Hemoglobin 10.6 g/dL (12.0-18.0); pH ABG 7.414 (7.350-7.450)
[2023-12-14 16:52] LABS: Device NASAL CANNULA; Modified Allen's Test Pass; Site Drawn RIGHT RADIAL
[2023-12-14] MEDS: IPRATROPIUM 0.5 MG/ALBUTEROL SULFATE 2.5 MG AMPUL.NEB 3 ML INHALATION ×3 (16:52)
[2023-12-14 17:05] LABS: Basophils Percent Auto 0.4 % (0.2-1.2); Eosinophils Absolute Auto 0.2 K/mm3 (0-0.3); Eosinophils Percent Auto 2.1 % (0-4.4); Hematocrit 29.9 % (37.0-47.0); Hemoglobin 10.6 g/dL (12.0-15.0); Immature Granulocyte Absolute 0.04 K/mm3 (0.00-0.031); Immature Granulocyte Percent A 0.6 % (0-0.5); Lymphocytes Absolute Auto 0.28 K/mm3 (0.9-3.2); Lymphocytes Percent Auto 3.9 % (18.3-44.2); Mean Corpuscular HGB Conc 35.5 g/dl (32-36); Mean Corpuscular Hemoglobin 28.5 pg (26-34); Mean Corpuscular Volume 80.4 fl (80-100); Mean Platelet Volume 9.1 fl (7.4-10.4); Monocytes Absolute Auto 0.4 K/mm3 (0.1-0.6); Monocytes Percent Auto 5.9 % (2.6-8.5); Neutrophils Absolute Auto 6.3 K/mm3 (1.3-6.7); Neutrophils Percent Auto 87.1 % (45.5-73.1); Platelet Count Result 128 k/mm3 (150-375); Red Blood Count 3.72 M/mm3 (4.2-5.4); Red Cell Distribution Width 16.7 % (11.5-14.5); White Blood Count 7.3 K/mm3 (4.5-10.0)
[2023-12-14] MEDS: methylPREDNISolone SOD SUCC 125 MG VIAL IV PUSH (17:07)
[2023-12-14] MEDS: ACETAMINOPHEN 500 MG TABLET 1000 MG PO (17:12)
[2023-12-14] MEDS: NITROGLYCERIN OINTMENT 1 INCH DOSE TRANSDERM (17:12)
[2023-12-14 17:16] LABS: INR 1.2; Prothrombin Time 15.4 Seconds (11.1-14.7)
[2023-12-14 17:17] LABS: Partial Thromboplastin Time 25.2 Seconds (22.3-36.8)
[2023-12-14 17:21] LABS: Alanine Aminotransferase 12 U/L (6-35); Albumin Level 3.4 g/dL (3.5-5.1); Alkaline Phosphatase 90 U/L (38-126); Anion Gap 12 mmol/L (4-12); Aspartate Amino Transferase 40 U/L (14-36); Bilirubin,Total 1.2 mg/dL (0.2-1.3); Blood Urea Nitrogen 32 mg/dL (7-17); Calcium 7.7 mg/dL (8.4-10.2); Carbon Dioxide 22 mmol/L (22-30); Chloride 101 mmol/L (98-107); Estimated CRCL calculation 8 ml/min; Estimated Glomerular Filt Rate 14; Glucose 87 mg/dL (65-110); Magnesium 1.6 mg/dL (1.6-2.3); Sodium 135 mmol/L (137-145)
[2023-12-14 17:32] LABS: Troponin I 0.037 ng/mL (0.000-0.034)
[2023-12-14 17:41] LABS: Influenza A QL RT-PCR Negative (Negative); Influenza B QL RT-PCR Negative (Negative); RSV RNA, RT-PCR Negative (Negative); SARS-CoV-2 RNA PCR Negative (Negative)
[2023-12-14 17:47] LABS: NT Pro B Type Natriuretic Pept > 30000 pg/mL (19.9-100)
[2023-12-14] MEDS: hydrALAZINE HCL 20 MG/ML VIAL 10 MG IV PUSH (18:56)
[2023-12-14 19:03] LABS: Phosphorus 5.3 mg/dL (2.5-4.5)
[2023-12-14] MEDS: ONDANSETRON INJ 4 MG/2 ML VIAL IV PUSH (19:31)
[2023-12-14] MEDS: LORazepam INJ (*CRX) 2 MG/ML VIAL 0.5 MG IV PUSH (19:31)
--- NOTE | 2023-12-14 20:23 | PC.NURSE ---
this RN and phleb tech have made multiple attempts at blood cultures, patient has a fistula to the right arm making lab draws difficult. will start antibiotics as soon as cultures are obtained
[2023-12-14] MEDS: VANCOMYCIN 1,000 MG/NS 250 ML 1,000 MG/250 ML BAG 250 MG IVPB (21:34)
[2023-12-14 21:40] LABS: Lactic Acid Reflex 1.2 mmol/L (0.7-2.0)
--- NOTE | 2023-12-14 22:09 | ADMGEN ---
This patient, Alina Allen, was admitted to IMU Room 202-01. Patient/family oriented to hospital policies and general routines including ID bracelet, bed and alarms, visiting hours, pain management, procedures, bathroom and other care routines, personal items, smoking policy, room service/diet, and visiting hours. Information on how to activate the Rapid Response Team has been discussed. Patient/Family are encouraged to report perceived risks to care and to ask questions if they do not understand what they are told or what they should do.
[2023-12-14 22:37] LABS: MRSA (PCR) NOT DETECTED (NOT DETECTE)
[2023-12-14] MEDS: levoFLOXacin 750 MG/D5W 150 ML 750 MG/150 ML BAG 100 MG IVPB (22:46)
[2023-12-15] VITALS (47 sets, daily range): BP systolic 121–229; BP diastolic 53–107; PULSE 74–86; RESP 16–32; TEMP 36.2–37.1; O2SAT 91–99
--- NOTE | 2023-12-15 02:25 | PM.IMHP ---
H&P: HPI History of Present Illness Date/Time: 12/15/23 02:25 Chief Complaint: Shortness of breath Narrative: 77-year-old female with past medical history of end-stage renal disease on hemodialysis, essential hypertension, combined systolic and diastolic heart failure with EF, peripheral vascular disease, COPD and anemia who presented to the ER from home via EMS due to shortness of breath. The patient reports she did not feel well on Tuesday so did not goes to hemodialysis. Her last dialysis session was 4 days ago. She reports that she had been feeling short of breath for about a week and had a productive cough which is why she did not feel well enough to go to dialysis. EMS arrival at her home found her to be hypoxic on room air and she was placed on a non-rebreather. She usually does not wear home O2. In the ER she was weaned down to 5 L nasal cannula. She has been having increasing lower extremity swelling over the last couple of months. She has been having headache but denies any vision changes or localized weakness. Patient has chronically uncontrolled hypertension. Her baseline systolic blood pressures usually run in the 150s to 160s. When she arrived to the ER her blood pressures were in the 220s to 230s systolic. She received 1 in of nitro paste and IV hydralazine. Her blood pressures improved down to the 160s to 180s. After patient arrived to blood pressures gradually escalated back up into the 200s. Patient was not complaining of any headache g poor historian. She is adamant that no one had been in the room with her. That no in had saw her when she got to the floor. However the patient had 5 nurses in the room with her when she arrived to the floor. She is insistent that she has missing dialysis in the past but the patient is well known to the hospitalist service for readmissions for the exact same presentation and pattern. She reports that she still produces urine ?all the time? it is unclear when she had her last bowel movement. She denies any his difficult to get review of systems from the patient as she% is uncertain elements were facts. . She follows with Dr. Joshua Motley and goes to dialysis Tuesday at [facility]. Review of Systems Review of Systems: 12 systems were reviewed with pertinent positives and negatives per HPI. Except as documented in the HPI, all other systems were reviewed and are negative. [facility] Past Medical History Medical History (Updated 12/16/23 @ 11:37 by Kimberly Rodriguez DO) Cardiomyopathy Presumed ischemic with moderately sized moderately severe reversible defect and small mild non reversible infarct on Lexiscan stress on 09/12/2020. Chronic anemia History of blood transfusion. Combined systolic and diastolic congestive heart failure Echocardiogram on 09/10/2020 EF of 20 to 25%, grade 1 diastolic dysfunction, reduced RV systolic function. 12/2020 echo EF 40-46% with segmental wall motion abnormalities COPD with emphysema End-stage renal disease on hemodialysis Tuesday. Dialysis managed by Dr. Joshua Motley Gastric AVM Hyperlipidemia Hyperparathyroidism due to ESRD on dialysis Hypertension Peripheral arterial disease Surgical History Surgical History (Updated 12/16/23 @ 11:35 by Kimberly Rodriguez DO) History of colonoscopy History of colon polyps, internal hemorrhoids, and diverticulosis. History of esophagogastroduodenoscopy History of gastric erosions, gastric polyps, and duodenal AVMs. History of revascularization procedure of lower extremity (10/2019) Bilateral lower extremity stents per Dr. Carrillo. History of vascular surgery (06/12/13) Aorto bi-iliac bypass graft per Dr. Carrillo. Surgically constructed arteriovenous fistula Left upper arm Family History Family History Mother Alzheimer disease Father Emphysema of lung Social History Social History (Updated 12/16/23 @ 11:24 by
[2023-12-15] MEDS: NITROGLYCERIN OINTMENT 1 INCH DOSE TRANSDERM ×4 (02:58→18:24)
[2023-12-15] MEDS: hydrALAZINE HCL 20 MG/ML VIAL 10 MG IV PUSH (03:00)
[2023-12-15 05:15] LABS: Hematocrit 32.2 % (37.0-47.0); Mean Corpuscular HGB Conc 34.2 g/dl (32-36); Mean Corpuscular Hemoglobin 28.2 pg (26-34); Mean Corpuscular Volume 82.6 fl (80-100); Mean Platelet Volume 9.6 fl (7.4-10.4); Platelet Count Result 134 k/mm3 (150-375); Red Cell Distribution Width 16.6 % (11.5-14.5)
[2023-12-15 05:28] LABS: Estimated CRCL calculation 8 ml/min; Estimated Glomerular Filt Rate 14
[2023-12-15 05:29] LABS: Alanine Aminotransferase 11 U/L (6-35); Albumin Level 3.3 g/dL (3.5-5.1); Alkaline Phosphatase 88 U/L (38-126); Anion Gap 16 mmol/L (4-12); Aspartate Amino Transferase 29 U/L (14-36); Blood Urea Nitrogen 38 mg/dL (7-17); Calcium 7.6 mg/dL (8.4-10.2); Carbon Dioxide 19 mmol/L (22-30); Chloride 100 mmol/L (98-107); Estimated CRCL calculation 8 ml/min; Estimated Glomerular Filt Rate 14; Glucose 96 mg/dL (65-110); Potassium 4.6 mmol/L (3.4-5.0); Sodium 135 mmol/L (137-145)
[2023-12-15 05:50] LABS: Vancomycin Random < 5.0 ug/mL (10-20)
[2023-12-15 07:59] LABS: Hepatitis B Surface Antigen Negative (Negative)
[2023-12-15 08:17] LABS: Hepatitis B Surface Anti Res Negative
[2023-12-15] MEDS: hydrALAZINE HCL 25 MG TABLET PO ×2 (08:21→20:19)
[2023-12-15] MEDS: carvediloL 12.5 MG TABLET PO ×2 (08:21→18:23)
[2023-12-15] MEDS: PANTOPRAZOLE 40 MG TABLET PO ×2 (08:22→18:24)
[2023-12-15] MEDS: TICAGRELOR 90 MG TABLET PO ×2 (08:22→20:20)
[2023-12-15] MEDS: ASPIRIN 81 MG ENTERIC TABLET PO (08:22)
[2023-12-15] MEDS: ISOSORBIDE MONONITRATE 30 MG TAB.ER.24H PO (08:22)
--- NOTE | 2023-12-15 12:43 | PM.IMPN ---
Progress Note: A&P Assessment and Plan (1) Pulmonary edema: Qualifiers: Chronicity: acute Qualified Code(s): J81.0 - Acute pulmonary edema Code(s): J81.1 - Chronic pulmonary edema Status: Acute (2) ESRD on hemodialysis: Code(s): N18.6 - End stage renal disease; Z99.2 - Dependence on renal dialysis Status: Acute (3) Acute hypoxic respiratory failure: Code(s): J96.01 - Acute respiratory failure with hypoxia Status: Acute Plan Fluid overload with pulm edema ESRD needing dialysis Patient going on dialysis today nephrology on board Acute hypoxemic respiratory failure on 2 liters no oxygen at baseline continue monitor, continue dialysis hypertension Continue home meds and titrate with clinical course Combined systolic and diastolic CHF continue dialysis HLD continue home meds DVT prophylaxis on Sq heparin PT/OT patient requests home health services but staed she will decline placement Subjective Date/time seen: 12/15/23 12:43 Interval history: Comfortable at bedside Noted marked improvement since admission Exam Narrative: General: alert and comfortable Eyes: EOMI, PERRLA ENNT External ears normal, Neck is supple, no masses, Respiratory systems: Clear to auscultation Cardiovascular S1, S2, normal rhythm, no murmur, rub, or gallop; no thrill or palpable murmurs on palpation. Gastrointestinal: soft, non-tender, and non-distended abdomen with no masses; BS present Skin: no rash, lesions, ulcerations, subcutaneous nodules or induration Musculoskeletal: no abnormality and no tenderness, normal ROM Neurologic: Alert and oriented x3, non focal Mental Status Exam: normal affect Objective Data Vital Signs Vital Signs: Vital Signs - 24 hr 12/14/23 15:37 12/14/23 16:18 12/14/23 16:56 Temperature 98.2 F Pulse Rate 83 76 Respiratory Rate 14 20 Blood Pressure 225/77 H Pulse Oximetry 100 100 Oxygen Delivery Non-Rebreather Mask High Flow Nasal Cannula Oxygen Flow Rate 15 5 Fraction of Inspired Oxygen 12/14/23 17:37 12/14/23 18:40 12/14/23 18:47 Temperature Pulse Rate 71 84 86 Respiratory Rate 22 H 26 H Blood Pressure 162/94 H Pulse Oximetry 98 100 Oxygen Delivery BiPAP Oxygen Flow Rate Fraction of Inspired Oxygen 12/14/23 20:11 12/14/23 15:42 12/14/23 15:43 Temperature Pulse Rate 82 Respiratory Rate 18 Blood Pressure 224/78 H Pulse Oximetry 100 100 100 Oxygen Delivery BiPAP Oxygen Flow Rate Fraction of Inspired Oxygen 30 12/14/23 15:44 12/14/23 15:45 12/14/23 15:46 Temperature Pulse Rate 79 76 75 Respiratory Rate 21 H 20 23 H Blood Pressure 215/77 H 225/77 H Pulse Oximetry 100 100 Oxygen Delivery Oxygen Flow Rate Fraction of Inspired Oxygen 12/14/23 16:00 12/14/23 16:01 12/14/23 16:15 Temperature Pulse Rate 74 76 74 Respiratory Rate 22 H 24 H 21 H Blood Pressure 225/79 H Pulse Oximetry 100 100 98 Oxygen Delivery Oxygen Flow Rate Fraction of Inspired Oxygen 12/14/23 16:16 12/14/23 16:30 12/14/23 16:31 Temperature Pulse Rate 74 77 74 Respiratory Rate 17 25 H 23 H Blood Pressure 223/78 H 223/75 H Pulse Oximetry 100 100 Oxygen Delivery Oxygen Flow Rate Fraction of Inspired Oxygen 12/14/23 16:45 12/14/23 16:46 12/14/23 17:00 Temperature Pulse Rate 74 77 74 Respiratory Rate 21 H 24 H 21 H Blood Pressure 221/85 H Pulse Oximetry 99 100 Oxygen Delivery Oxygen Flow Rate Fraction of Inspired Oxygen 12/14/23 17:01 12/14/23 17:15 12/14/23 17:16 Temperature Pulse Rate 76 75 76 Respiratory Rate 23 H 21 H 21 H Blood Pressure 228/72 H 225/74 H Pulse Oximetry 100 100 100 Oxygen Delivery Oxygen Flow Rate Fraction of Inspired Oxygen 12/14/23 17:30 12/14/23 17:31 12/14/23 17:45 Temperature Pulse Rate 76 75 78 Respiratory Rate 23 H 23 H 23 H Blood Pressure
--- NOTE | 2023-12-15 14:20 | PM.CNNEP ---
Assessment and Plan Assessment and plan (1) End stage renal disease: Code(s): N18.6 - End stage renal disease Status: Chronic Assessment and Plan: HD today continue T/T/S dialysis schedule while hospitalized follow electrolytes, volume status, and clearance (2) Acute respiratory failure with hypoxia: Code(s): J96.01 - Acute respiratory failure with hypoxia Status: Acute Assessment and Plan: multifactorial etiology: fluid overload/pulmonary edema CHF COPD relative anemia deconditioning fluid removal with HD as tolerated COVID/RSV/influenza ruled out supplemental oxygen - wean as tolerated follow respirator status (3) Hypertension: Qualifiers: Hypertension type: essential hypertension Qualified Code(s): I10 - Essential (primary) hypertension Code(s): I10 - Essential (primary) hypertension Status: Chronic Assessment and Plan: better control at this element of hypertensive urgency (with flash pulmonary edema?) on admission continue home medications follow trend of hemodynaics (4) Anemia: Qualifiers: Anemia type: unspecified type Qualified Code(s): D64.9 - Anemia, unspecified Code(s): D64.9 - Anemia, unspecified Status: Chronic Assessment and Plan: related to ESRD Epogen with HD follow trend of H/H I will continue follow the patient with you while she remains hospitalized make further recommendations as deemed necessary. Thank you for allowing me to participate in the care this patient. History of Present Illness Reason for Consult Consult date: 12/15/23 Reason for consult: end stage renal disease Chief Complaint Chief complaint: Acute Hypoxic Respiratory Failure History of Present Illness Narrative: The patient is a 77-year-old female with a past medical history as outlined below who presented to [facility] Emergency room via EMS for complaints of shortness of breath. The patient has apparently not been feeling very well in general and missed her scheduled dialysis treatment on Tuesday , hence, her last dialysis treatment was approximately four days ago. She states that she has been feeling short of breath for about the last week in association with a productive cough and because of these ongoing symptoms, that is why she did not feel well enough to go to dialysis on Tuesday. As her shortness of breath progressively worsened, EMS was called for further assistance. On EMS arrival, she was found to be hypoxic on room air and had to be placed on a non-rebreather. She was subsequently transferred to the emergency room for further assessment. By the time of her arrival to the emergency room, she was able to be weaned down to 5 L of supplemental oxygen with relative stability in her oxygen saturations. She reported other symptoms including headaches and increased lower extremity swelling / edema. Her blood pressure was quite elevated in the emergency room at around 2:20 a.m. to 230 systolic and required an inch of nitro paste and IV hydralazine to get her blood pressure down to the 160s to 180 systolic. However, her blood pressure slowly increased back up to 200 systolic. Workup and evaluation demonstrated labs consistent with her known history of end-stage renal disease and a chest x-ray was significant for volume overload/pulmonary edema along with COPD changes. She was initiated on nebulizer treatments and ongoing oxygen support and was subsequently admitted to the hospital for further evaluation therapy. Renal consultation was requested due to her end-stage renal disease. The patient normally dialyzes on a Tuesday, , Tuesday schedule under the care of Dr. Joshua Motley at [facility]. From a dialysis perspective, she usually does fairly well with relative stability in her monthly labs and fluid/volume status. She reports compliance with dialysi
[2023-12-15] MEDS: AZITHROMYCIN 250 MG TABLET 500 MG PO (20:19)
[2023-12-15] MEDS: traZODone HCL 50 MG TABLET PO (20:20)
[2023-12-15] MEDS: ATORVASTATIN 40 MG TABLET PO (20:20)
[2023-12-15] MEDS: oxyBUTYnin CHLORIDE 5 MG TABLET PO (20:22)
[2023-12-15 20:53] LABS: Glucose Point of Care 141 mg/dl (65-105)
[2023-12-16] VITALS (17 sets, daily range): BP systolic 153–175; BP diastolic 45–57; PULSE 67–95; RESP 18–20; TEMP 36.3–36.6; O2SAT 92–100
[2023-12-16] MEDS: NITROGLYCERIN OINTMENT 1 INCH DOSE TRANSDERM ×3 (00:17→13:12)
[2023-12-16 05:55] LABS: Alanine Aminotransferase 9 U/L (6-35); Albumin Level 2.7 g/dL (3.5-5.1); Alkaline Phosphatase 71 U/L (38-126); Anion Gap 10 mmol/L (4-12); Aspartate Amino Transferase 22 U/L (14-36); Bilirubin,Total 0.7 mg/dL (0.2-1.3); Blood Urea Nitrogen 30 mg/dL (7-17); Calcium 6.8 mg/dL (8.4-10.2); Carbon Dioxide 21 mmol/L (22-30); Chloride 99 mmol/L (98-107); Estimated CRCL calculation 10 ml/min; Estimated Glomerular Filt Rate 17; Glucose 80 mg/dL (65-110); Magnesium 2.1 mg/dL (1.6-2.3); Potassium 4.2 mmol/L (3.4-5.0); Sodium 130 mmol/L (137-145)
[2023-12-16] MEDS: hydrALAZINE HCL 25 MG TABLET PO (06:29)
[2023-12-16 07:18] LABS: Basophils Percent Auto 0.1 % (0.2-1.2); Eosinophils Percent Auto 0.3 % (0-4.4); Hematocrit 30.3 % (37.0-47.0); Hemoglobin 10.6 g/dL (12.0-15.0); Immature Granulocyte Absolute 0.03 K/mm3 (0.00-0.031); Immature Granulocyte Percent A 0.3 % (0-0.5); Lymphocytes Absolute Auto 0.38 K/mm3 (0.9-3.2); Lymphocytes Percent Auto 4.2 % (18.3-44.2); Mean Corpuscular Hemoglobin 27.7 pg (26-34); Mean Corpuscular Volume 79.3 fl (80-100); Monocytes Absolute Auto 0.7 K/mm3 (0.1-0.6); Monocytes Percent Auto 7.4 % (2.6-8.5); Neutrophils Absolute Auto 7.9 K/mm3 (1.3-6.7); Neutrophils Percent Auto 87.7 % (45.5-73.1); Platelet Count Result 118 k/mm3 (150-375); Red Blood Count 3.82 M/mm3 (4.2-5.4); Red Cell Distribution Width 16.4 % (11.5-14.5)
[2023-12-16] MEDS: carvediloL 12.5 MG TABLET PO ×2 (09:44→16:57)
[2023-12-16] MEDS: PANTOPRAZOLE 40 MG TABLET PO ×2 (09:44→16:57)
[2023-12-16] MEDS: ASPIRIN 81 MG ENTERIC TABLET PO (09:44)
[2023-12-16] MEDS: ISOSORBIDE MONONITRATE 30 MG TAB.ER.24H PO (09:44)
[2023-12-16] MEDS: TICAGRELOR 90 MG TABLET PO (09:44)
[2023-12-16] MEDS: ACETAMINOPHEN 500 MG TABLET PO (09:45)
--- NOTE | 2023-12-16 10:45 | PM.PNNEP ---
Progress Note: A&P Assessment and Plan (1) End stage renal disease: Code(s): N18.6 - End stage renal disease Status: Chronic Assessment and Plan: HD tomorrow continue T/T/S dialysis schedule while hospitalized follow electrolytes, volume status, and clearance (2) Acute respiratory failure with hypoxia: Code(s): J96.01 - Acute respiratory failure with hypoxia Status: Acute Assessment and Plan: multifactorial etiology: fluid overload/pulmonary edema CHF COPD relative anemia deconditioning fluid removal with HD as tolerated COVID/RSV/influenza ruled out supplemental oxygen - weaning as tolerated follow respirator status (3) Hypertension: Qualifiers: Hypertension type: essential hypertension Qualified Code(s): I10 - Essential (primary) hypertension Code(s): I10 - Essential (primary) hypertension Status: Chronic Assessment and Plan: better control at this element of hypertensive urgency (with flash pulmonary edema?) on admission continue home medications follow trend of hemodynaics (4) Anemia: Qualifiers: Anemia type: unspecified type Qualified Code(s): D64.9 - Anemia, unspecified Code(s): D64.9 - Anemia, unspecified Status: Chronic Assessment and Plan: related to ESRD Epogen with HD follow trend of H/H Will continue to follow. Subjective Date/time seen: 12/16/23 10:45 Interval history: Folow-up for end stage renal disease on hemodialysis. Tolerated dialysis treatment yesterday afternoon without any issues or problems; her respiratory status has significantly improved at the time of my visit and supplemental oxygen is slowly being weaned by nursing; blood pressure readings are back to her baseline as well; no apparent distress noted. Exam Narrative: General: thin and somewhat frail female in NAD Heart: normal S1 and S2; no rub Lungs: clear anteriorly, decreased and coarse at bases Abdomen: soft, nontender, nondistended, positive bowel sounds Extremities: no cyanosis or clubbing; no edema Skin: warm and dry Objective Data Vital Signs Vital Signs: Vital Signs Temp Pulse Resp BP Pulse Ox O2 Del Method O2 Flow Rate 12/16/23 10:00 71 12/16/23 08:00 72 12/16/23 12:20 97.5 F L 67 20 153/45 H 100 12/16/23 09:44 74 12/16/23 09:04 92 Nasal Cannula 1 09/06/24 07:49 97.4 F L 73 18 156/46 H 96 12/16/23 06:00 70 12/16/23 04:00 67 18 97 Nasal Cannula 2 12/16/23 04:00 67 12/16/23 04:24 97.8 F 67 18 170/48 H 97 12/16/23 02:00 76 12/16/23 00:00 74 18 99 Nasal Cannula 2 12/16/23 00:00 74 12/16/23 00:14 97.7 F 74 18 175/57 H 99 12/15/23 22:00 78 12/15/23 20:00 78 18 94 Nasal Cannula 2 12/15/23 20:00 78 12/15/23 20:56 94 Nasal Cannula 2 12/15/23 20:15 97.9 F 80 18 197/62 H 97 12/15/23 18:16 98.5 F 83 18 179/107 H 95 12/15/23 18:23 83 12/15/23 18:00 80 12/15/23 17:30 76 158/73 H 12/15/23 17:15 82 153/67 H 12/15/23 17:38 97.5 F L 80 16 190/80 H 12/15/23 17:00 74 162/67 H 12/15/23 16:45 76 163/73 H 12/15/23 16:30 78 134/61 Intake/Output Intake/Output: Intake & Output 12/13/23 12/14/23 12/15/23 12/16/23 23:59 23:59 23:59 23:59 Intake Total 250 970 582 Output Total 2700 Balance 250 -1730 582 Meds/Results Medications: Active Medications Generic Name Dose Route Start Last Admin Trade Name Freq PRN Reason Stop Dose Admin Acetaminophen 500 mg 12/16/23 09:42 12/16/23 09:45 Acetaminophen 500 Mg Tablet PO 500 mg Q6H PRN Administration Mild Pain (1-3) or Fever Aspirin 81 mg 12/15/23 09:00 12/16/23 09:44 Aspirin 81 Mg Enteric Tablet PO 81 mg QAM BRANDON Administration Atorvastatin Calcium 40 mg
[2023-12-16] MEDS: lisinopriL 20 MG TABLET PO (13:12)
--- NOTE | 2023-12-16 15:00 | PM.DS ---
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 The patient reports she did not feel well on Tuesday so did not goes to hemodialysis. Her last dialysis session was 4 days ago. She reports that she had been feeling short of breath for about a week and had a productive cough which is why she did not feel well enough to go to dialysis. EMS arrival at her home found her to be hypoxic on room air and she was placed on a non-rebreather. She usually does not wear home O2. In the ER she was weaned down to 5 L nasal cannula. She has been having increasing lower extremity swelling over the last couple of months. She has been having headache but denies any vision changes or localized weakness. Patient has chronically uncontrolled hypertension. Her baseline systolic blood pressures usually run in the 150s to 160s. When she arrived to the ER her blood pressures were in the 220s to 230s systolic. She received 1 in of nitro paste and IV hydralazine. Her blood pressures improved down to the 160s to 180s. After patient arrived to blood pressures gradually escalated back up into the 200s. Patient was not complaining of any headache g poor historian. She is adamant that no one had been in the room with her. That no in had saw her when she got to the floor. However the patient had 5 nurses in the room with her when she arrived to the floor. She is insistent that she has missing dialysis in the past but the patient is well known to the hospitalist service for readmissions for the exact same presentation and pattern. She reports that she still produces urine ?all the time? it is unclear when she had her last bowel movement. She denies any his difficult to get review of systems from the patient as she% is uncertain elements were facts. patient underwent dialysis yesterday and symptoms has resolved, she is currently on room air. she is scheduled to continue her regular dialysis tomorrow. Assessment and Plan (1) Pulmonary edema: Qualifiers: Chronicity: acute Qualified Code(s): J81.0 - Acute pulmonary edema Code(s): J81.1 - Chronic pulmonary edema Status: Acute (2) ESRD on hemodialysis: Code(s): N18.6 - End stage renal disease; Z99.2 - Dependence on renal dialysis Status: Acute (3) Acute hypoxic respiratory failure: Code(s): J96.01 - Acute respiratory failure with hypoxia Status: Acute Plan Fluid overload with pulm edema ESRD needing dialysis Patient going on dialysis today nephrology on board Acute hypoxemic respiratory failure, resolved off oxygen no oxygen at baseline continue monitor, continue dialysis hypertension Continue home meds and titrate with clinical course Combined systolic and diastolic CHF continue dialysis and home meds HLD continue home meds F/u with PCP in 3-5 days F/u with nephrology as instructed Time Spent with Patient Time attestation: Total time spent providing and/or coordinating discharge services: DS: Data Data Completed and Pending Labs on day of discharge: Labs from last 24 hours 12/16/23 12/16/23 12/15/23 07:11 04:50 20:43 WBC 9.0 RBC 3.82 L Hgb 10.6 L Hct 30.3 L MCV 79.3 L MCH 27.7 MCHC 35.
--- NOTE | 2023-12-16 16:03 | PCRCNOTE ---
HOME O2 EVAL COMPLETE, NO REQUIREMENTS
== END 2023-12-16 17:30 | disposition home or self-care (01) | DRG 640 ==
LOC: ANHED 20:36 → ANHIMU 20:44
PROVIDERS: Emergency Medicine; Internal Medicine Nephrology; Admitting Provider Internal Medicine; Emergency Provider Physician Assistant; Visit Provider Internal Medicine
DX: E87.79 Other fluid overload (principal); J81.0 Acute pulmonary edema; J96.01 Acute respiratory failure with hypoxia; N18.6 End stage renal disease; I16.1 Hypertensive emergency; J44.1 Chronic obstructive pulmonary disease with (acute) exacerbation; I50.42 Chronic combined systolic (congestive) and diastolic (congestive) heart failure; I11.0 Hypertensive heart disease with heart failure; Z99.2 Dependence on renal dialysis; Z91.158 Patient's noncompliance with renal dialysis for other reason; R79.89 Other specified abnormal findings of blood chemistry; R41.3 Other amnesia; E78.5 Hyperlipidemia, unspecified; I73.9 Peripheral vascular disease, unspecified
CPT/HCPCS: 36415; 36600; 70450; 71045; 71275; 80053; 80202; 82565; 82805; 82948; 83605; 83735; 83880; 84100; 84484; 85025; 85027; 85610; 85730; 86706; 87040; 87077; 87340; 87637; 87641; 93005; 94002; 94618; 94640; 96365; 96367; 96374; 96375; 96376; 99285; A9270; G0257; G0378; J0360; J1956; J2060; J2405; J2919; J3370; J7030; Q9967

== ENCOUNTER 2024-02-11 10:34 | Emergency (ER) | payer MEDICARE, BC, SELFPAY ==
[2024-02-11] VITALS (15 sets, daily range): BP systolic 160–252; BP diastolic 44–88; PULSE 57–76; RESP 14–25; TEMP 36.4–36.6; O2SAT 98–100
--- NOTE | 2024-02-11 11:04 | ED_ITS ---
HPI - General Adult General Chief complaint: Recheck/Abnormal Lab/Rx Stated complaint: htn Time Seen by Provider: 02/11/24 11:04 Source: patient Mode of arrival: ambulatory Limitations: no limitations History of Present Illness HPI narrative: 78 years old female came to the ED by ambulance with elevated blood pressure above 200. Patient is telling me that at the dialysis center could not manage it. Patient is asymptomatic. Related Data Home Medications Medication Instructions Recorded Confirmed aspirin 81 mg tablet 81 mg PO DAILY 05/10/20 12/14/23 atorvastatin 20 mg tablet 40 mg PO HS 12/08/22 12/14/23 carvedilol 12.5 mg tablet 12.5 mg PO BIDWM 12/08/22 12/14/23 melatonin 3 mg tablet 3 mg PO HS PRN Sleep 12/08/22 12/14/23 omeprazole 40 mg capsule,delayed 40 mg PO DAILY 12/08/22 12/14/23 release oxybutynin chloride 5 mg tablet 5 mg PO HS 12/08/22 12/14/23 trazodone 50 mg tablet 50 mg PO HS 12/08/22 12/14/23 ergocalciferol (vitamin D2) 1,250 50,000 unit PO BID 10/11/23 12/14/23 mcg (50,000 unit) capsule ticagrelor 90 mg tablet (Brilinta) 90 mg PO BID 10/11/23 12/14/23 albuterol sulfate 90 mcg/actuation 2 puff inhalation Q6H PRN 12/14/23 12/14/23 aerosol inhaler Shortness Of Breath lisinopril 20 mg tablet 20 mg PO DAILY 12/15/23 12/15/23 nifedipine 30 mg tablet,extended 30 mg PO DIRECTED 12/15/23 12/15/23 release Allergies Allergy/AdvReac Type Severity Reaction Status Date / Time Penicillins Allergy Unknown Unknown,Ham Verified 12/14/23 16:56 h Review of Systems Review of Systems: All systems reviewed & are unremarkable except as noted in HPI and below PMFSH Past Medical History Medical History Cardiomyopathy Presumed ischemic with moderately sized moderately severe reversible defect and small mild non reversible infarct on Lexiscan stress on 09/12/2020. Chronic anemia History of blood transfusion. Combined systolic and diastolic congestive heart failure Echocardiogram on 09/10/2020 EF of 20 to 25%, grade 1 diastolic dysfunction, reduced RV systolic function. 12/2020 echo EF 40-46% with segmental wall motion abnormalities COPD with emphysema End-stage renal disease on hemodialysis Tuesday. Dialysis managed by Dr. Joshua Motley Gastric AVM Hyperlipidemia Hyperparathyroidism due to ESRD on dialysis Hypertension Peripheral arterial disease Surgical History Surgical History History of colonoscopy History of colon polyps, internal hemorrhoids, and diverticulosis. History of esophagogastroduodenoscopy History of gastric erosions, gastric polyps, and duodenal AVMs. History of revascularization procedure of lower extremity (10/2019) Bilateral lower extremity stents per Dr. Carrillo. History of vascular surgery (06/12/13) Aorto bi-iliac bypass graft per Dr. Carrillo. Surgically constructed arteriovenous fistula Left upper arm Family History Family History Mother Alzheimer disease Father Emphysema of lung Social History Social History Social History: Surrogate medical decision maker: Dhaval Allen, hay. Code status: Full code. Smoking packs per day: 1 Smoking cigarettes per day: 20.0 Years smoked: 55 Smoking pack-years: 55.00 Smoking status: Former smoker Second hand tobacco smoke exposure: Yes Alcohol intake: former Substance use: never Substance use type: does not use Do You Feel Safe in your Home?: Yes Lack of Transportation: No Lack of Food: Never True Current Housing: I Have Housing Concerned About Future Housing: No Difficulty Paying Gas/Electric Bills: No Difficulty Paying for Meds: No Currently Unemployed: No Education: Decline to Answer Difficulty w/ Childcare or Family Care: No Additional living arrangements comments: . Lives with her only son in [place]. Additional occupation/education comments: Retired from the [employer]. Spiritual care concerns: No Exam 2 Narrative: General appearance: Well-developed, well-nourished Skin: Normal color Head: Normocephalic, nontraumatic Eyes: Clear conjunctiva ENT: Oropharynx normal, ears normal, nose normal Neck: Supple, nontender Chest and respiratory: Airway patent, no respiratory distress, no accessory muscle use Heart: Regular rate/rhythm Abdomen: Soft, nontender, no organomegaly, quiet bowel sounds Vascular: Normal peripheral pulses, normal capillary refill. Neurologic: Alert and oriented ?3, Course Vital Signs Vital signs: Vital Signs Temperature 36.4 C 02/11/24 10:38 Pulse Rate 68 02/11/24 10:38 Respiratory Rate 18 02/11/24 10:38 Blood Pressure 219/70 H 02/11/24 10:38 Pulse Oximetry 100 02/11/24 10:38 Temperature 36.4 C 02/11/24 10:38 Pulse Rate 76 02/11/24 12:16 Respiratory Rate 25 H 02/11/24 12:16 Blood Pressure 186/88 H 02/11/24 13:10 Pulse Oximetry 100 02/11/24 12:16 Medical Decision Making MDM Narrative Medical decision making narrative: PATIENT CAME AFTER DIALYSIS WITH ELEVATED BLOOD PRESSURE AND ASYMPTOMATIC. ON ARRIVAL BLOOD PRESSURE WAS 219/70 HYDRALAZINE 20 MG IV ORDERED FOLLOWED BY 10 MG, CURRENT BLOOD PRESSURE AT THE TIME OF DISCHARGE 188 OVER 44 PATIENT TELL ME THAT NUMBER IS HER BASELINE. PATIENT WAS ADVISED TO CALL HER RN URGENT CARE FOR FURTHER EVALUATION Differential Diagnosis Differential Diagnosis: UNCONTROLLED HYPERTENSION Vital Signs Vital Signs: Vital Signs Temperature 36.4 C 02/11/24 10:38 Pulse Rate 68 02/11/24 10:38 Respiratory Rate 18 02/11/24 10:38 Blood Pressure 219/70 H 02/11/24 10:38 Pulse Oximetry 100 02/11/24 10:38 Temperature 36.4 C 02/11/24 10:38 Pulse Rate 76 02/11/24 12:16 Respiratory Rate 25 H 02/11/24 12:16 Blood Pressure 186/88 H 02/11/24 13:10 Pulse Oximetry 100 02/11/24 12:16 Critical Care Time Critical Care Time Critical Care Time: No Discharge Plan Discharge Clinical Impression: Hypertension, uncontrolled Patient Disposition: Home, Self-Care Condition: Improved Instructions: Chronic Hypertension (ED) Additional Instructions: RETURN IF SYMPTOMS ARE WORSENING , CALL YOUR RN URGENT CARE FOR APPOINTMENT, TAKE TYLENOL NEEDED FOR ACHES AND PAIN, CONTINUE HOME MEDICATIONS. Prescriptions: No Action aspirin 81 mg Tablet 81 mg PO DAILY isosorbide mononitrate 30 mg tablet extended release 24 hr 30 mg PO DAILY Qty: 30 0RF carvedilol 12.5 mg tablet 12.5 mg PO BIDWM trazodone 50 mg tablet 50 mg PO HS omeprazole 40 mg capsule,delayed release(DR/EC) 40 mg PO DAILY oxybutynin chloride 5 mg tablet 5 mg PO HS atorvastatin 20 mg tablet 40 mg PO HS melatonin 3 mg tablet 3 mg PO HS PRN (Reason: Sleep) ergocalciferol (vitamin D2) 1,250 mcg (50,000 unit) capsule 50,000 unit PO BID Brilinta 90 mg tablet 90 mg PO BID albuterol sulfate 90 mcg/actuation HFA aerosol inhaler 2 puff INHALATION Q6H PRN (Reason: Shortness Of Breath) lisinopril 20 mg tablet 20 mg PO DAILY nifedipine 30 mg tablet extended release 30 mg PO DIRECTED Follow-up/Referrals: UNKNOWN,DOCTOR [Primary Care Provider] -
[2024-02-11] MEDS: hydrALAZINE HCL 20 MG/ML VIAL IV PUSH (11:51)
[2024-02-11] MEDS: hydrALAZINE HCL 20 MG/ML VIAL 10 MG IV PUSH (13:03)
[2024-02-11] MEDS: ONDANSETRON INJ 4 MG/2 ML VIAL 8 MG IV PUSH (13:04)
== END 2024-02-11 14:30 | disposition home or self-care (01) ==
PROVIDERS: Emergency Provider Emergency Medicine
DX: I13.2 Hypertensive heart and chronic kidney disease with heart failure and with stage 5 chronic kidney disease, or end stage renal disease (principal); N18.6 End stage renal disease; I50.40 Unspecified combined systolic (congestive) and diastolic (congestive) heart failure; N25.81 Secondary hyperparathyroidism of renal origin; Z99.2 Dependence on renal dialysis; J43.9 Emphysema, unspecified; I73.9 Peripheral vascular disease, unspecified; I42.9 Cardiomyopathy, unspecified; E78.5 Hyperlipidemia, unspecified; D64.9 Anemia, unspecified; Z86.0100 Personal history of colon polyps, unspecified; Z87.891 Personal history of nicotine dependence; Z79.899 Other long term (current) drug therapy; Z79.82 Long term (current) use of aspirin
CPT/HCPCS: 96374; 96375; 96376; 99284; J0360; J2405

== ENCOUNTER 2024-03-10 06:48 | Observation (INO) | payer MEDICARE, BC, SELFPAY ==
[2024-03-10] VITALS (41 sets, daily range): BP systolic 117–231; BP diastolic 45–83; PULSE 35–84; RESP 11–22; TEMP 36.3–37; O2SAT 92–100; BMI 17.4
--- NOTE | ~2024-03-10 | XR_ITS ---
XR chest 1V portable DATE: 03/10/2024 08:22 INDICATION: Hypertension. Missed dialysis. TECHNIQUE: Portable upright AP chest on 03/10/2024 at 0820 hours COMPARISON: 12/14/2023 CTA chest 12/14/2023 portable AP chest FINDINGS: Cardiomegaly. There is extensive calcification of the aortic arch and descending thoracic a sue and the included proximal abdominal aorta. Mild bilateral pleural effusions, right greater than left. There is infiltrate and/or atelectasis at the lung bases, primarily on the right. The lungs are mildly hyperinflated consistent with COPD. Osteopenia. IMPRESSION: Cardiomegaly, mild pleural effusions, right greater than left Bilateral lower lung infiltrate and/or atelectasis, primarily on the right Reviewed, dictated and finalized at location A. [employer] MA[employer]GER
--- NOTE | 2024-03-10 08:08 | ECG_ITS ---
Test Date: 2024-03-10 08:55:37 Measurements Intervals [place] Rate: 60 P: 76 MD: 154 QRS: 82 QRSD: 87 T: 14 QT: 434 QTc: 436 Interpretive Statements SINUS RHYTHM POSSIBLE LEFT ATRIAL ENLARGEMENT CANNOT R/O SEPTAL INFARCT, AGE INDETERMINATE BORDERLINE ST-T WAVE ABNORMALITY- INF/LAT LEADS ABNORMAL ECG Compared to ECG 12/14/2023 16:50:20 NO SIGNIFICANT CHANGE Electronically Signed On 03-10-2024 13:59:19 POLYSOM TECH by Gael Steward D.O.
[2024-03-10] MEDS: lisinopriL 20 MG TABLET PO (08:29)
[2024-03-10] MEDS: hydrALAZINE HCL 20 MG/ML VIAL 10 MG IV PUSH ×2 (08:35→18:35)
[2024-03-10] MEDS: NIFEdipine 30 MG TAB.ER.24 PO (08:37)
[2024-03-10 08:46] LABS: Basophils Absolute Auto 0.1 K/mm3 (0.0-0.1); Basophils Percent Auto 1.1 % (0.2-1.2); Eosinophils Absolute Auto 0.5 K/mm3 (0-0.3); Eosinophils Percent Auto 9.5 % (0-4.4); Hemoglobin 10.7 g/dL (12.0-15.0); Immature Granulocyte Absolute 0.02 K/mm3 (0.00-0.031); Immature Granulocyte Percent A 0.4 % (0-0.5); Immature Platelet Fraction Pct 1.8 % (0.9-11.2); Lymphocytes Absolute Auto 0.61 K/mm3 (0.9-3.2); Lymphocytes Percent Auto 11.1 % (18.3-44.2); Mean Corpuscular HGB Conc 34.5 g/dl (32-36); Mean Corpuscular Volume 81.2 fl (80-100); Mean Platelet Volume 9.4 fl (7.4-10.4); Monocytes Absolute Auto 0.6 K/mm3 (0.1-0.6); Monocytes Percent Auto 10.7 % (2.6-8.5); Neutrophils Absolute Auto 3.7 K/mm3 (1.3-6.7); Neutrophils Percent Auto 67.2 % (45.5-73.1); Platelet Count Result 117 k/mm3 (150-375); Red Blood Count 3.82 M/mm3 (4.2-5.4); Red Cell Distribution Width 17.5 % (11.5-14.5); White Blood Count 5.5 K/mm3 (4.5-10.0)
[2024-03-10 09:00] LABS: Alanine Aminotransferase 21 U/L (6-35); Albumin Level 3.3 g/dL (3.5-5.1); Alkaline Phosphatase 83 U/L (38-126); Anion Gap 6 mmol/L (4-12); Aspartate Amino Transferase 47 U/L (14-36); Bilirubin,Total 0.6 mg/dL (0.2-1.3); Blood Urea Nitrogen 34 mg/dL (7-17); Calcium 8.1 mg/dL (8.4-10.2); Carbon Dioxide 25 mmol/L (22-30); Chloride 106 mmol/L (98-107); Estimated CRCL calculation 7 ml/min; Estimated Glomerular Filt Rate 14; Glucose 80 mg/dL (65-110); Potassium 4.2 mmol/L (3.4-5.0); Sodium 137 mmol/L (137-145)
[2024-03-10] MEDS: ISOSORBIDE MONONITRATE 20 MG TABLET PO (09:56)
[2024-03-10] MEDS: ISOSORBIDE MONONITRATE 10 MG TABLET PO (09:57)
[2024-03-10] MEDS: hydrALAZINE HCL 25 MG TABLET PO (09:57)
--- NOTE | 2024-03-10 10:49 | ED.GENADULT ---
HPI - General Adult General Chief complaint: Recheck/Abnormal Lab/Rx Stated complaint: htn per [facility] Time Seen by Provider: 03/10/24 06:54 History of Present Illness HPI narrative: This is a 78-year-old female sent her dialysis appointment for elevated blood pressures. patient typically does dialysis Tuesday, but with the holiday she last underwent dialysis on Tuesday. She went to dialysis this morning however her blood pressure was elevated with a systolic in the 260s. She received 2 doses of clonidine with no improvement. She was then sent to the ED by Dr. Motley. the patient has no physical complaints such as headache chest pain difficulty breathing or abdominal pain. She is quite irate about being sent to the ED. Related Data Home Medications Medication Instructions Recorded Confirmed aspirin 81 mg tablet 81 mg PO DAILY 05/10/20 12/14/23 atorvastatin 20 mg tablet 40 mg PO HS 12/08/22 12/14/23 carvedilol 12.5 mg tablet 12.5 mg PO BIDWM 12/08/22 12/14/23 melatonin 3 mg tablet 3 mg PO HS PRN Sleep 12/08/22 12/14/23 omeprazole 40 mg capsule,delayed 40 mg PO DAILY 12/08/22 12/14/23 release oxybutynin chloride 5 mg tablet 5 mg PO HS 12/08/22 12/14/23 trazodone 50 mg tablet 50 mg PO HS 12/08/22 12/14/23 ergocalciferol (vitamin D2) 1,250 50,000 unit PO BID 10/11/23 12/14/23 mcg (50,000 unit) capsule ticagrelor 90 mg tablet (Brilinta) 90 mg PO BID 10/11/23 12/14/23 albuterol sulfate 90 mcg/actuation 2 puff inhalation Q6H PRN 12/14/23 12/14/23 aerosol inhaler Shortness Of Breath lisinopril 20 mg tablet 20 mg PO DAILY 12/15/23 12/15/23 nifedipine 30 mg tablet,extended 30 mg PO DIRECTED 12/15/23 12/15/23 release Allergies Allergy/AdvReac Type Severity Reaction Status Date / Time Penicillins Allergy Unknown Unknown,Ham Verified 12/14/23 16:56 h [facility] Past Medical History Medical History Cardiomyopathy Presumed ischemic with moderately sized moderately severe reversible defect and small mild non reversible infarct on Lexiscan stress on 09/12/2020. Chronic anemia History of blood transfusion. Combined systolic and diastolic congestive heart failure Echocardiogram on 09/10/2020 EF of 20 to 25%, grade 1 diastolic dysfunction, reduced RV systolic function. 12/2020 echo EF 40-46% with segmental wall motion abnormalities COPD with emphysema End-stage renal disease on hemodialysis Tuesday. Dialysis managed by Dr. Joshua Motley Gastric AVM Hyperlipidemia Hyperparathyroidism due to ESRD on dialysis Hypertension Peripheral arterial disease Surgical History Surgical History History of colonoscopy History of colon polyps, internal hemorrhoids, and diverticulosis. History of esophagogastroduodenoscopy History of gastric erosions, gastric polyps, and duodenal AVMs. History of revascularization procedure of lower extremity (10/2019) Bilateral lower extremity stents per Dr. Carrillo. History of vascular surgery (06/12/13) Aorto bi-iliac bypass graft per Dr. Carrillo. Surgically constructed arteriovenous fistula Left upper arm Family History Family History Mother Alzheimer disease Father Emphysema of lung Social History Social History Social History: Surrogate medical decision maker: hay Lang. Code status: Full code. Smoking packs per day: 1 Smoking cigarettes per day: 20.0 Years smoked: 55 Smoking pack-years: 55.00 Smoking status: Former smoker Second hand tobacco smoke exposure: Yes Alcohol intake: former Substance use: never Substance use type: does not use Do You Feel Safe in your Home?: Yes Lack of Transportation: No Lack of Food: Never True Current Housing: I Have Housing Concerned About Future Housing: No Difficulty Paying Gas/Electric Bills: No Difficulty Paying for Meds: No Currently Unemployed: No Education: Decline to Answer Difficulty w/ Childcare or Family Care: No Additional living arrangements comments: . Lives with her only son in [place]. Additional occupation/education comments: Retired from the [employer]. Spiritual care concerns: No Exam Narrative: APPEARANCE: No apparent distress. Head: atraumatic. EYES: EOMI, NOSE: Atraumatic NECK: Trachea midline RESPIRATORY: No increased rate of breathing Clear to auscultation CARDIOVASCULAR: RRR, +2 pitting edema lower extremities ABDOMINAL: Non-distended soft nontender MUSCULOSKELETAl: No obvious deformities NEURO: Alert. Moving 4/4 extremities SKIN:: Warm, dry. Normal color PSYCHIATRIC: Normal affect Course Vital Signs Vital signs: Vital Signs Temperature 98.4 F 03/10/24 06:54 Pulse Rate 68 03/10/24 06:54 Respiratory Rate 18 03/10/24 06:54 Blood Pressure 159/83 H 03/10/24 06:54 Pulse Oximetry 99 03/10/24 06:54 Oxygen Delivery Room Air 03/10/24 06:54 Temperature 98.4 F 03/10/24 06:54 Pulse Rate 66 03/10/24 10:01 Respiratory Rate 12 03/10/24 10:01 Blood Pressure 208/69 H 03/10/24 10:01 Pulse Oximetry 96 03/10/24 10:01 Oxygen Delivery Room Air 03/10/24 06:54 Medical Decision Making MDM Narrative Medical decision making narrative: -Course: 78-year-old female sent from dialysis for elevated blood pressures. No other complaints like CP/INA. Patient has only taken her carvedilol this morning. She was given the rest of her home antihypertensive meds as well as IV hydralazine. Blood pressure did drop to around 200/60. This was discussed with Dr. Motley. Patient will be admitted to the hospital and he will dialyze her in-house. -DDX includes but is not limited to: Hypertension, malignant hypertension, medication noncompliance -Co-morbidities complicating care: hypertension, end-stage renal disease -Independent interpretation of studies: labs and imaging reviewed Independent EKG interpretation: Rhythm [sinus], Rate 60, [place] -[normal], NV -[normal], QRS [narrow], QTC [normal], T waves -[negative for concerning inversions], ST Segments - [Negative for concerning elevations] Final interpretations: [Normal Sinus Rhythm] -Discussion of Management/Consultants:Omar Motley -Shared decision making / Disposition:admitted. Vital Signs Vital Signs: Vital Signs Temperature 98.4 F 03/10/24 06:54 Pulse Rate 68 03/10/24 06:54 Respiratory Rate 18 03/10/24 06:54 Blood Pressure 159/83 H 03/10/24 06:54 Pulse Oximetry 99 03/10/24 06:54 Oxygen Delivery Room Air 03/10/24 06:54 Temperature 98.4 F 03/10/24 06:54 Pulse Rate 66 03/10/24 10:01 Respiratory Rate 12 03/10/24 10:01 Blood Pressure 208/69 H 03/10/24 10:01 Pulse Oximetry 96 03/10/24 10:01 Oxygen Delivery Room Air 03/10/24 06:54 Lab Data 03/10/24 08:37 03/10/24 08:37 Labs: Lab Results 03/10/24 Range/Units 08:37 WBC 5.5 (4.5-10.0) K/mm3 RBC 3.82 L (4.2-5.4) M/mm3 Hgb 10.7 L (12.0-15.0) g/dL Hct 31.0 L (37.0-47.0) % MCV 81.2 (80-100) fl MCH 28.0 (26-34) pg MCHC 34.5 (32-36) g/dl RDW 17.5 H (11.5-14.5) % Plt Count 117 L (150-375) k/mm3 MPV 9.4 (7.4-10.4) fl Immature Gran % (Auto) 0.4 (0-0.5) % Neut % (Auto) 67.2 (45.5-73.1) % Lymph % (Auto) 11.1 L (18.3-44.2) % [place] % (Auto) 10.7 H (2.6-8.5) % Eos % (Auto) 9.5 H (0-4.4) % Baso % (Auto) 1.1 (0.2-1.2) % Lymph # (Auto) 0.61 L (0.9-3.2) K/mm3 [place] # (Auto) 0.6 (0.1-0.6) K/mm3 Eos # (Auto) 0.5 H (0-0.3) K/mm3 Baso # (Auto) 0.1 (0.0-0.1) K/mm3 Abs Immat Gran (auto) 0.02 (0.00-0.031) K/mm3 Absolute Neuts (auto) 3.7 (1.3-6.7) K/mm3 Absolute Nucleated RBC 0.000 (0.0-0.012) K/mm3 Nucleated RBC % 0.0 (0.0-0.2) % % Immature Plt Fraction 1.8 (0.9-11.2) % Sodium 137 (137-145) mmol/L Potassium 4.2 (3.4-5.0) mmol/L Chloride 106 (98-107) mmol/L Carbon Dioxide 25 (22-30) mmol/L Anion Gap 6 (4-12) mmol/L BUN 34 H (7-17) mg/dL Creatinine 3.80 H (0.7-1.0) mg/dL Estim Creat Clear Calc 7 ml/min Estimated GFR 14 L (59 - ) Glucose 80 (65-110) mg/dL Calcium 8.1 L (8.4-10.2) mg/dL Total Bilirubin 0.6 (0.2-1.3) mg/dL AST 47 H (14-36) U/L ALT 21 (6-35) U/L Alkaline Phosphatase 83 (38-126) U/L Total Protein 6.0 L (6.3-8.2) g/dL Albumin 3.3 L (3.5-5.1) g/dL Discharge Plan Discharge Clinical Impression: Hypertension, Anemia in ESRD (end-stage renal disease) Patient Disposition: Still a Patient Condition: Stable Prescriptions: No Action aspirin 81 mg Tablet 81 mg PO DAILY isosorbide mononitrate 30 mg tablet extended release 24 hr 30 mg PO DAILY Qty: 30 0RF carvedilol 12.5 mg tablet 12.5 mg PO BIDWM trazodone 50 mg tablet 50 mg PO HS omeprazole 40 mg capsule,delayed release(DR/EC) 40 mg PO DAILY oxybutynin chloride 5 mg tablet 5 mg PO HS atorvastatin 20 mg tablet 40 mg PO HS melatonin 3 mg tablet 3 mg PO HS PRN (Reason: Sleep) ergocalciferol (vitamin D2) 1,250 mcg (50,000 unit) capsule 50,000 unit PO BID Brilinta 90 mg tablet 90 mg PO BID albuterol sulfate 90 mcg/actuation HFA aerosol inhaler 2 puff INHALATION Q6H PRN (Reason: Shortness Of Breath) lisinopril 20 mg tablet 20 mg PO DAILY nifedipine 30 mg tablet extended release 30 mg PO DIRECTED Follow-up/Referrals: UNKNOWN,DOCTOR [Primary Care Provider] -
--- NOTE | 2024-03-10 12:10 | P.HP_ITS ---
H&P: HPI History of Present Illness Date/Time: 03/10/24 12:10 Chief Complaint: Elevated blood pressure Narrative: This is a 78-year-old female sent by her dialysis unit due to elevated blood pressures. patient typically does dialysis Tuesday, but with the holiday she last underwent dialysis on Tuesday. She went to dialysis this morning however her blood pressure was elevated with a systolic in the 260s. She received 2 doses of clonidine with no improvement. She was then sent to the ED by Dr. Motley. Patient is annoyed that she is here and has not had dialysis yet. She is planned to be dialyzed later today as an inpatient. She denied any complaints of chest pain shortness of breath abdominal pain nausea vomiting weakness blurriness of her vision. Review of Systems Review of Systems: - CONSTITUTIONAL: Denies weight loss, fe goran and chills. - HEENT: Denies changes in vision and he aring - RESPIRATORY: Denies SOB and cough. - CV: Denies palpitations and CP. - GI: Denies abdominal pain, nausea, vom iting and diarrhea. - : Denies dysuria and urinary frequen cy. - MSK: Denies myalgia and joint pain. - SKIN: Denies rash and pruritus. - NEUROLOGICAL: Denies headache and sync ope. - PSYCHIATRIC: Denies recent changes in mood. Denies anxiety and depression. [facility] Past Medical History Medical History Cardiomyopathy Presumed ischemic with moderately sized moderately severe reversible defect and small mild non reversible infarct on Lexiscan stress on 09/12/2020. Chronic anemia History of blood transfusion. Combined systolic and diastolic congestive heart failure Echocardiogram on 09/10/2020 EF of 20 to 25%, grade 1 diastolic dysfunction, reduced RV systolic function. 12/2020 echo EF 40-46% with segmental wall motion abnormalities COPD with emphysema End-stage renal disease on hemodialysis Tuesday. Dialysis managed by Dr. Joshua Motley Gastric AVM Hyperlipidemia Hyperparathyroidism due to ESRD on dialysis Hypertension Peripheral arterial disease Surgical History Surgical History History of colonoscopy History of colon polyps, internal hemorrhoids, and diverticulosis. History of esophagogastroduodenoscopy History of gastric erosions, gastric polyps, and duodenal AVMs. History of revascularization procedure of lower extremity (10/2019) Bilateral lower extremity stents per Dr. Carrillo. History of vascular surgery (06/12/13) Aorto bi-iliac bypass graft per Dr. Carrillo. Surgically constructed arteriovenous fistula Left upper arm Family History Family History Mother Alzheimer disease Father Emphysema of lung Social History Social History Social History: Surrogate medical decision maker: Dhaval Allen, hay. Code status: Full code. Smoking packs per day: 1 Smoking cigarettes per day: 20.0 Years smoked: 55 Smoking pack-years: 55.00 Smoking status: Former smoker Second hand tobacco smoke exposure: Yes Alcohol intake: former Substance use: never Substance use type: does not use Do You Feel Safe in your Home?: Yes Lack of Transportation: No Lack of Food: Never True Current Housing: I Have Housing Concerned About Future Housing: No Difficulty Paying Gas/Electric Bills: No Difficulty Paying for Meds: No Currently Unemployed: No Education: Decline to Answer Difficulty w/ Childcare or Family Care: No Additional living arrangements comments: . Lives with her only son in [place]. Additional occupation/education comments: Retired from the [employer]. Spiritual care concerns: No Meds Home Medications and Allergies Home Medications Medication Instructions Recorded Confirmed Type aspirin 81 mg tablet 81 mg PO DAILY 05/10/20 12/14/23 History isosorbide mononitrate 30 mg 30 mg PO DAILY #30 tabs 09/20/20 12/14/23 Rx tablet,extended release 24 hr atorvastatin 20 mg tablet 40 mg PO HS 12/08/22 12/14/23 History carvedilol 12.5 mg tablet 12.5 mg PO BIDWM 12/08/22 12/14/23 History melatonin 3 mg tablet 3 mg PO HS PRN Sleep 12/08/22 12/14/23 History omeprazole 40 mg capsule,delayed 40 mg PO DAILY 12/08/22 12/14/23 History release oxybutynin chloride 5 mg tablet 5 mg PO HS 12/08/22 12/14/23 History trazodone 50 mg tablet 50 mg PO HS 12/08/22 12/14/23 History ergocalciferol (vitamin D2) 1,250 50,000 unit PO BID 10/11/23 12/14/23 History mcg (50,000 unit) capsule ticagrelor 90 mg tablet (Brilinta) 90 mg PO BID 10/11/23 12/14/23 History albuterol sulfate 90 mcg/actuation 2 puff inhalation Q6H PRN 12/14/23 12/14/23 History aerosol inhaler Shortness Of Breath lisinopril 20 mg tablet 20 mg PO DAILY 12/15/23 12/15/23 History nifedipine 30 mg tablet,extended 30 mg PO DIRECTED 12/15/23 12/15/23 History release Allergies Allergy/AdvReac Type Severity Reaction Status Date / Time Penicillins Allergy Unknown Unknown,Ham Verified 12/14/23 16:56 h Vital Signs Vital Signs - 24 hr 03/10/24 06:54 03/10/24 07:11 03/10/24 07:15 Temperature 98.4 F Pulse Rate 68 70 68 Respiratory Rate 18 18 19 Blood Pressure 159/83 H 228/70 H Pulse Oximetry 99 100 99 Oxygen Delivery Room Air 03/10/24 07:21 03/10/24 07:31 03/10/24 07:41 Temperature Pulse Rate 71 68 68 Respiratory Rate 14 13 12 Blood Pressure 231/72 H 226/69 H 225/69 H Pulse Oximetry 99 96 96 Oxygen Delivery 03/10/24 07:51 03/10/24 08:01 03/10/24 08:32 Temperature Pulse Rate 68 74 71 Respiratory Rate 13 13 18 Blood Pressure 225/64 H 227/78 H 213/78 H Pulse Oximetry 96 98 94 Oxygen Delivery 03/10/24 08:45 03/10/24 09:00 03/10/24 09:31 Temperature Pulse Rate 70 70 68 Respiratory Rate 22 H 17 17 Blood Pressure 219/61 H 222/61 H Pulse Oximetry 100 100 100 Oxygen Delivery 03/10/24 09:41 03/10/24 10:00 03/10/24 10:01 Temperature Pulse Rate 65 70 66 Respiratory Rate 17 11 L 12 Blood Pressure 213/65 H 208/69 H Pulse Oximetry 100 96 96 Oxygen Delivery 03/10/24 10:31 03/10/24 11:01 03/10/24 11:31 Temperature Pulse Rate 69 76 75 Respiratory Rate 15 18 16 Blood Pressure 204/64 H 192/59 H 186/65 H Pulse Oximetry 92 95 98 Oxygen Delivery Exam Narrative: APPEARANCE: No apparent distress. Head: atraumatic. Normal calf Filemon EYES: EOMI, NECK: Trachea midline RESPIRATORY: No increased rate of breathing Clear to auscultation CARDIOVASCULAR: RRR, +2 pitting edema lower extremities ABDOMINAL: Non-distended soft nontender MUSCULOSKELETAL: No obvious deformities NEURO: Alert. Moving 4/4 extremities SKIN:: Warm, dry. Normal color PSYCHIATRIC: Normal affect H&P: Results Labs Labs: Short CBC 03/10/24 Range/Units 08:37 WBC 5.5 (4.5-10.0) K/mm3 Hgb 10.7 L (12.0-15.0) g/dL Hct 31.0 L (37.0-47.0) % Plt Count 117 L (150-375) k/mm3 BMP 03/10/24 08:37 Sodium 137 Potassium 4.2 Chloride 106 Carbon Dioxide 25 BUN 34 H Creatinine 3.80 H Glucose 80 Calcium 8.1 L Liver Function 03/10/24 Range/Units 08:37 Total Bilirubin 0.6 (0.2-1.3) mg/dL AST 47 H (14-36) U/L ALT 21 (6-35) U/L Alkaline Phosphatase 83 (38-126) U/L Albumin 3.3 L (3.5-5.1) g/dL Assessment and Plan Assessment and plan (1) Hypertension: Qualifiers: Hypertension type: essential hypertension Qualified Code(s): I10 - Essential (primary) hypertension Code(s): I10 - Essential (primary) hypertension Status: Chronic (2) Cardiomyopathy: Code(s): I42.9 - Cardiomyopathy, unspecified Status: Chronic (3) CHF (congestive heart failure): Qualifiers: Heart failure type: combined systolic and diastolic Heart failure chronicity: acute on chronic Qualified Code(s): I50.43 - Acute on chronic combined systolic (congestive) and diastolic (congestive) heart failure Code(s): I50.9 - Heart failure, unspecified Status: Acute (4) COPD (chronic obstructive pulmonary disease): Qualifiers: COPD type: unspecified COPD Qualified Code(s): J44.9 - Chronic obstructive pulmonary disease, unspecified Code(s): J44.9 - Chronic obstructive pulmonary disease, unspecified Status: Chronic (5) Combined systolic and diastolic congestive heart failure: Code(s): I50.40 - Unspecified combined systolic (congestive) and diastolic (congestive) heart failure Status: Acute (6) Peripheral arterial disease: Code(s): I73.9 - Peripheral vascular disease, unspecified Status: Acute (7) COPD with emphysema: Code(s): J43.9 - Emphysema, unspecified Status: Acute (8) Chronic anemia: Code(s): D64.9 - Anemia, unspecified Status: Acute (9) Hyperlipidemia: Code(s): E78.5 - Hyperlipidemia, unspecified Status: Acute (10) Hypertensive urgency: Code(s): I16.0 - Hypertensive urgency Status: Acute (11) End-stage renal disease on hemodialysis: Code(s): N18.6 - End stage renal disease; Z99.2 - Dependence on renal dialysis Status: Acute Plan This is a 78-year-old female who was sent from dialysis for elevated blood pressure. She denied any other complaints likes chest pain or weakness or shortness of breath. Patient has only taken her carvedilol this morning. States she received rest of her home medications as well as IV hydralazine and clonidine. Patient's blood pressure did improve some however decision was made to admit to the hospital for control of her blood pressure. On arrival to the ED blood pressure was elevated with systolic in 200s. Laboratory workup revealed normal WBC of 5.5 hemoglobin of 10.7 creatinine of 3.8 electrolytes were unremarkable. EKG showed sinus rhythm with nonspecific ST-T changes. Chest x-ray showed cardiomegaly with mild pleural effusions right greater than left bilateral lower lung infiltrate and/or atelectasis primary on the right. Patient intermittently admitted for similar issue. Accelerated hypertension resume home medication which includes Imdur carvedilol 12.5 b.i.d. lisinopril 20 mg and nifedipine 30 mg. Will resume these medications and place on IV hydralazine p.r.n.. End-stage renal disease on hemodialysis Combined systolic and diastolic heart failure with EF as low as 20 25% in April 2021 with improvement more than 70% in April 2023 Peripheral vascular disease COPD Chronic anemia Hyperlipidemia DVT prophylaxis Code status full code Hospitalist MIPS Advance Care Plan I have confirmed that the patient's Advanced Care Plan is present, code status is documented, or surrogate decision maker is listed in patient medical record.: Yes Medication Reconciliation I have utilized all available resources to obtain, update and review the patients current medications (includes all prescriptions, OTC, herbals, cannabis, and nutritional supplements).: Yes
--- NOTE | 2024-03-10 12:15 | PC.NURSE ---
This patient, Alina Allen, was admitted to Medical Room 260-01. Patient/family oriented to hospital policies and general routines including ID bracelet, bed and alarms, visiting hours, pain management, procedures, bathroom and other care routines, personal items, smoking policy, room service/diet, and visiting hours. Information on how to activate the Rapid Response Team has been discussed. Patient/Family are encouraged to report perceived risks to care and to ask questions if they do not understand what they are told or what they should do.
--- NOTE | 2024-03-10 12:46 | P.CONNP_ITS ---
Assessment and Plan Assessment and plan (1) End-stage renal disease on hemodialysis: Code(s): N18.6 - End stage renal disease; Z99.2 - Dependence on renal dialysis Status: Acute Assessment and Plan: the patient has end-stage renal disease. She is on dialysis 3 times a week. She usually does show up. Her labs have been okay she says that she is eating well but she has been losing some weight. Some of this is because she has swelling in were taking this but some of this is that she is not eating very well. Her albumin level is a little bit low. We have been encouraging her to eat more food , especially protein. (2) Hypertension: Code(s): I10 - Essential (primary) hypertension Status: Acute Assessment and Plan: blood pressure is very high. She says that she has a list at home of what she is supposed to take. I am going to make up a for her that agrees with what BERT has and with what Tonja has. I told her nurse care stim that I was going to fax it up to them for her to take home. I did reiterate to the patient that she should take her nifedipine and her carvedilol before treatments on dialysis days. She knows that lisinopril should be given every day at the same time in the evening because this dialyzes off. Long discussion with the patient, [facility], and pharmacy. Discussions took more than 25minutes apart from clinical activity (3) Anemia in ESRD (end-stage renal disease): Code(s): N18.6 - End stage renal disease; D63.1 - Anemia in chronic kidney disease Status: Acute Assessment and Plan: hemoglobin is target. Cannot give MAXINE today because of her blood pressure (4) Volume overload: Code(s): E87.70 - Fluid overload, unspecified Status: Acute Assessment and Plan: the patient does have some fluid on. I will take extra fluid off today. (5) Renal osteodystrophy: Code(s): N25.0 - Renal osteodystrophy Status: Acute Assessment and Plan: Will check a renal panel tomorrow if she is still here. She keeps insisting that she is going to sign out AMA after dialysis today. I did talk her into at least staying for her dialysis today. History of Present Illness Reason for Consult Consult date: 03/10/24 Chief Complaint Chief complaint: HTN History of Present Illness Narrative: Alina is a very pleasant 78-year-old lady who has multiple medical problems including end-stage renal disease on dialysis 3 times a week, hypertension, ischemic cardiomyopathy although last echo showed normal LV function, anemia, CKD MBD, peripheral arterial disease, hyperlipidemia, gastric AVM, COPD with reversible airways disease. The patient has had troubles with her blood pressure lately. She was in the hospital last month with very high blood pressure. She was discharged on nifedipine. Over the last few weeks her blood pressures have intermittently been high however she was not taking her nifedipine before treatment. Finally a week or 2 ago the patient started taking nifedipine before treatments and her blood pressure came down and was acceptable. Today she came to dialysis and her blood pressure was 260. She did not take her nifedipine. The patient had 2 doses of clonidine but the blood pressure did not drop so they called 911 and had her brought over to the emergency room at [place]. Here the blood pressure was high still at 240. She was given her home medication and her blood pressure started to improve but still was over 200 so she was admitted to the floor. Her last blood pressure was 186. The patient is not having any chest pain or shortness of breath. she still does have some swelling. The patient is upset because she feels like she is not getting her medications. She says that she was never told that she was supposed to take her nifedipine before dialysis. However at the dialysis unit her blood pressure was high in till she started taking her nifedipine or at least that is what she said a week ago when her blood pressure was finally better. She also says that her pharmacy has been trying to get hold of me for 2 weeks and has been unable to do so. She told me that she was out of 2 or 3 medications she should not sure how many. With all that in mind I talked to the dialysis unit to reconcile what medicines they thought she was on. I also talked with the pharmacy to find out what that patient has been feeling. It turns out that the pharmacy said her last prescription for nifedipine was 30 once a day. So I changed this to 60 twice a day which is what she is supposed to be taking. the pharmacist said that she was feeling everything else that is on her list at [facility] except for Brilinta. She last filled this in January. This has been managed by Dr. Hong and they are going to call that doctor to see if she should still be on this. I asked the pharmacy to put on the nifedipine bottle that she should take this before dialysis. Review of Systems Constitutional: Constitutional: Reports no additional constitutional complaints Eyes: Eyes: Reports no additional eye complaints ENT: Reports system reviewed and no additional complaints, except as documented Cardiovascular: Cardiovascular: Reports no additional cardiovascular complaints Respiratory: Respiratory: Reports no additional respiratory complaints Gastrointestinal: Gastrointestinal: Reports no additional gastrointestinal complaints Genitourinary: Genitourinary: Reports no additional female genitourinary complaints Musculoskeletal: Musculoskeletal: Reports no additional musculoskeletal co mplaints Integumentary/Breasts: Skin/Breast: Reports system reviewed and no additional complaints, except as docu Neurologic: Reports system reviewed and no additional complaints, except as documented Psychiatric: Psychiatric: Reports no additional psychiatric complaints Endocrine: Endocrine: Reports no additional endocrine complaints [facility] Past Medical History Medical History Cardiomyopathy Presumed ischemic with moderately sized moderately severe reversible defect and small mild non reversible infarct on Lexiscan stress on 09/12/2020. Chronic anemia History of blood transfusion. Combined systolic and diastolic congestive heart failure Echocardiogram on 09/10/2020 EF of 20 to 25%, grade 1 diastolic dysfunction, reduced RV systolic function. 12/2020 echo EF 40-46% with segmental wall motion abnormalities COPD with emphysema End-stage renal disease on hemodialysis Tuesday. Dialysis managed by Dr. Joshua Motley Gastric AVM Hyperlipidemia Hyperparathyroidism due to ESRD on dialysis Hypertension Peripheral arterial disease Surgical History Surgical History History of colonoscopy History of colon polyps, internal hemorrhoids, and diverticulosis. History of esophagogastroduodenoscopy History of gastric erosions, gastric polyps, and duodenal AVMs. History of revascularization procedure of lower extremity (10/2019) Bilateral lower extremity stents per Dr. Carrillo. History of vascular surgery (06/12/13) Aorto bi-iliac bypass graft per Dr. Carrillo. Surgically constructed arteriovenous fistula Left upper arm Family History Family History Mother Alzheimer disease Father Emphysema of lung Social History Social History Social History: Surrogate medical decision maker: hay Lang. Code status: Full code. Smoking packs per day: 1 Smoking cigarettes per day: 20.0 Years smoked: 55 Smoking pack-years: 55.00 Smoking status: Former smoker Second hand tobacco smoke exposure: Yes Alcohol intake: never Substance use: never Substance use type: does not use Do You Feel Safe in your Home?: Yes Lack of Transportation: No Lack of Food: Never True Current Housing: I Have Housing Concerned About Future Housing: No Difficulty Paying Gas/Electric Bills: No Difficulty Paying for Meds: No Currently Unemployed: No Education: Associate Degree Difficulty w/ Childcare or Family Care: No Additional living arrangements comments: . Lives with her only son in [place]. Additional occupation/education comments: Retired from the [employer]. Spiritual care concerns: No Meds Home Medications and Allergies Home Medications Medication Instructions Recorded Confirmed Type aspirin 81 mg tablet 81 mg PO DAILY 05/10/20 03/10/24 History isosorbide mononitrate 30 mg 30 mg PO DAILY #30 tabs 09/20/20 03/10/24 Rx tablet,extended release 24 hr carvedilol 12.5 mg tablet 25 mg PO BIDWM 12/08/22 03/10/24 History melatonin 3 mg tablet 3 mg PO HS PRN Sleep 12/08/22 03/10/24 History omeprazole 40 mg capsule,delayed 40 mg PO DAILY 12/08/22 03/10/24 History release oxybutynin chloride 5 mg tablet 5 mg PO HS 12/08/22 03/10/24 History trazodone 50 mg tablet 50 mg PO HS 12/08/22 03/10/24 History ergocalciferol (vitamin D2) 1,250 50,000 unit PO BID 10/11/23 03/10/24 History mcg (50,000 unit) capsule ticagrelor 90 mg tablet (Brilinta) 90 mg PO BID 10/11/23 03/10/24 History albuterol sulfate 90 mcg/actuation 2 puff inhalation Q6H PRN 12/14/23 03/10/24 History aerosol inhaler Shortness Of Breath lisinopril 20 mg tablet 20 mg PO DAILY 12/15/23 03/10/24 History nifedipine 30 mg tablet,extended 30 mg PO DIRECTED 12/15/23 03/10/24 History release atorvastatin 80 mg tablet 80 mg PO HS 03/10/24 03/10/24 History Allergies Allergy/AdvReac Type Severity Reaction Status Date / Time Penicillins Allergy Unknown Unknown,Ham Verified 12/14/23 16:56 h Vital Signs Vital Signs - 24 hr 03/10/24 06:54 03/10/24 07:11 03/10/24 07:15 Temperature 98.4 F Pulse Rate 68 70 68 Respiratory Rate 18 18 19 Blood Pressure 159/83 H 228/70 H Pulse Oximetry 99 100 99 Oxygen Delivery Room Air 03/10/24 07:21 03/10/24 07:31 03/10/24 07:41 Temperature Pulse Rate 71 68 68 Respiratory Rate 14 13 12 Blood Pressure 231/72 H 226/69 H 225/69 H Pulse Oximetry 99 96 96 Oxygen Delivery 03/10/24 07:51 03/10/24 08:01 03/10/24 08:32 Temperature Pulse Rate 68 74 71 Respiratory Rate 13 13 18 Blood Pressure 225/64 H 227/78 H 213/78 H Pulse Oximetry 96 98 94 Oxygen Delivery 03/10/24 08:45 03/10/24 09:00 03/10/24 09:31 Temperature Pulse Rate 70 70 68 Respiratory Rate 22 H 17 17 Blood Pressure 219/61 H 222/61 H Pulse Oximetry 100 100 100 Oxygen Delivery 03/10/24 09:41 03/10/24 10:00 03/10/24 10:01 Temperature Pulse Rate 65 70 66 Respiratory Rate 17 11 L 12 Blood Pressure 213/65 H 208/69 H Pulse Oximetry 100 96 96 Oxygen Delivery 03/10/24 10:31 03/10/24 11:01 03/10/24 11:31 Temperature Pulse Rate 69 76 75 Respiratory Rate 15 18 16 Blood Pressure 204/64 H 192/59 H 186/65 H Pulse Oximetry 92 95 98 Oxygen Delivery Exam Narrative: Exam Narrative: Well developed well-nourished female in no acute distress Skin is warm and dry without rash Head normocephalic atraumatic Eyes normal sclerae and conjunctivae Mouth normal lips teeth and gums Neck no nodes no thyromegaly no carotid bruits Axillae no nodes Back no CVA tenderness Lungs symmetric and clear to auscultation and percussion Heart regular rate and rhythm without rub or gallop Abdomen bowel sounds positive soft nontender, no HSM, masses, or bruits. Extremities no cyanosis, clubbing, or edema Pulses 2+ equal in radial arteries Psychological not anxious or depressed Neuro alert and oriented x3 motor 5/5 cranial nerves 2-12 intact reflexes 2+ and equal in the biceps and patellar tendons cerebellar normal rapid alternating movements Results Lab Results 03/10/24 08:37 03/10/24 08:37 Lab results: Most recent lab results Calcium 8.1 mg/dL (8.4-10.2) L 03/10/24 08:37
[2024-03-10 14:51] LABS: Hepatitis B Surface Antigen Negative (Negative)
--- NOTE | 2024-03-10 15:00 | PC.NURSE ---
This RN noted patient's telemetry to be sinus kong in the 20s/30s and called food preparation supervisor. Patient currently in dialysis room. This RN went upstairs to evaluate patient and obtain vitals. production line operator stated that the patient had become very dizzy and nauseous. Dr. Motley called and notified of event and orders obtained. Hospitalist Dr. Nelson also notified and orders obtained. Patient currently running NSR in 70s.
[2024-03-10 15:09] LABS: Hepatitis B Surface Anti Res Negative
--- NOTE | 2024-03-10 18:44 | PC.NURSE ---
Patient requesting information regarding home health and [facility] to help with transportation to dialysis. Will speak with care coordination when they are back in AM.
[2024-03-10] MEDS: HEPARIN SODIUM 5,000 UNITS/ML VIAL 5000 UNITS SUB-Q (21:08)
[2024-03-10] MEDS: MELATONIN 3 MG TABLET PO (21:09)
[2024-03-10] MEDS: oxyBUTYnin CHLORIDE 5 MG TABLET PO (21:09)
[2024-03-10] MEDS: ATORVASTATIN 40 MG TABLET 80 MG PO (21:09)
[2024-03-10] MEDS: traZODone HCL 50 MG TABLET PO (21:09)
[2024-03-10] MEDS: ACETAMINOPHEN 325 MG TABLET 650 MG PO (23:08)
[2024-03-11] VITALS: PULSE 77
[2024-03-11 04:00] VITALS: PULSE 79; PULSE 82; RESP 18; TEMP 36.7; O2SAT 96
[2024-03-11 04:32] VITALS: BP 162/66; PULSE 79
[2024-03-11 05:51] LABS: Basophils Percent Auto 0.7 % (0.2-1.2); Eosinophils Absolute Auto 0.4 K/mm3 (0-0.3); Eosinophils Percent Auto 7.3 % (0-4.4); Hematocrit 28.2 % (37.0-47.0); Hemoglobin 10.4 g/dL (12.0-15.0); Immature Granulocyte Absolute 0.02 K/mm3 (0.00-0.031); Immature Granulocyte Percent A 0.4 % (0-0.5); Immature Platelet Fraction Pct 2.2 % (0.9-11.2); Lymphocytes Absolute Auto 0.53 K/mm3 (0.9-3.2); Lymphocytes Percent Auto 9.5 % (18.3-44.2); Mean Corpuscular HGB Conc 36.9 g/dl (32-36); Mean Corpuscular Hemoglobin 28.7 pg (26-34); Mean Corpuscular Volume 77.9 fl (80-100); Mean Platelet Volume 9.4 fl (7.4-10.4); Monocytes Absolute Auto 0.7 K/mm3 (0.1-0.6); Monocytes Percent Auto 13.1 % (2.6-8.5); Neutrophils Absolute Auto 3.9 K/mm3 (1.3-6.7); Platelet Count Result 123 k/mm3 (150-375); Red Blood Count 3.62 M/mm3 (4.2-5.4); Red Cell Distribution Width 17.3 % (11.5-14.5); White Blood Count 5.6 K/mm3 (4.5-10.0)
[2024-03-11 08:00] VITALS: PULSE 82
--- NOTE | 2024-03-11 08:22 | P.PNNP_ITS ---
Progress Note: A&P Assessment and Plan (1) End-stage renal disease on hemodialysis: Code(s): N18.6 - End stage renal disease; Z99.2 - Dependence on renal dialysis Status: Acute Assessment and Plan: the patient has end-stage renal disease. She is on dialysis 3 times a week. She usually does show up. Her labs have been okay yesterday patient had a bradycardic spell. Cardiology consult. Carvedilol st opped. Patient still has a little bit of swelling. This will need to come off as an outpatient. (2) Hypertension: Code(s): I10 - Essential (primary) hypertension Status: Acute Assessment and Plan: blood pressure Was very high on admission. It is unclear medicines she was actually all. She was getting nifedipine 30mg capsules from the pharmacy but was instructed to take 2 of them twice a day. She was doing this for a while may have forgotten that she needed to take it late as her blood pressure was much higher on Tuesday. She has a blood pressure cuff at home but does not use it. Yesterday the pharmacy change the nifedipine from 60 twice a day to 30 once a day because this is what she was getting as an outpatient. I wish the pharmacist had just called me so I could explain that but all that happened without me knowing. So currently she is listed at lisinopril 20 once a day and nifedipine 30 once a day and her blood pressure is probably going to skyrocket on this regimen. So I will increase the nifedipine to 60. The lisinopril has to be taken in the evening not in the morning because on dialysis days she has to take it after dialysis so we might as well have her take it every day at the same time because she is already having trouble following the directions so I am trying to simplify it as much as possible. She will get 60mg of nifedipine today at 9:00 a.m.. We can watch the blood pressure for the day. The patient still insists on going home today. She may sign out AMA but at least we will know whether the 60 of nifedipine is enough to control her blood pressure for today. She also says that she has 3 empty bottles at home. She says that she called the pharmacist about these however the pharmacist says that she is up-to-date with all of her medications. I asked her to bring these empty bottles to the dialysis unit on Tuesday to clarify this. I have written out a list of medications for her to take. long discussion with Dr. Nelson and with the patient. Time spent in discussions was 25minutes apart from clinical active (3) Anemia in ESRD (end-stage renal disease): Code(s): N18.6 - End stage renal disease; D63.1 - Anemia in chronic kidney disease Status: Acute Assessment and Plan: hemoglobin is target. Cannot give MAXINE today because of her blood pressure (4) Volume overload: Code(s): E87.70 - Fluid overload, unspecified Status: Acute Assessment and Plan: the patient does have some fluid on. I will take Fluid off in dialysis on dialysis days. (5) Renal osteodystrophy: Code(s): N25.0 - Renal osteodystrophy Status: Acute Assessment and Plan: Will follow this as an outpatient Subjective Date/time seen: 03/11/24 08:22 Interval history: Yesterday patient was in dialysis and developed low blood pressure and bradycardia. She also developed nausea and vomiting. It is not clear which came 1st because there was no monitor in the dialysis unit and the nurse on the floor note the bradycardia and ran upstairs found her to be nauseated already. Apparently she became dizzy 1st then became nauseated so I assume the low blood pressure caused all. patient is feeling much better today. she has not had bradycardia dialysis before this. Cardiology consult request Review of Systems Cardiovascular: Cardiovascular: Reports no additional cardiovascular complain ts Respiratory: Respiratory: Reports no additional respiratory complaints Gastrointestinal: Gastrointestinal: Reports no additional gastrointestinal complaints Genitourinary: Genitourinary: Reports no additional female genitourinary compl aints Exam Narrative: WDWN in NAD skin no rash head ncat lungs clear cor reg no rub abd BS+ nontender and soft ext 1+ bilateral edema. Objective Data Vital Signs Vital Signs: Vital Signs - 24 hr 03/10/24 08:32 03/10/24 08:45 03/10/24 09:00 Temperature Pulse Rate 71 70 70 Respiratory Rate 18 22 H 17 Blood Pressure 213/78 H 219/61 H Pulse Oximetry 94 100 100 Oxygen Delivery 03/10/24 09:31 03/10/24 09:41 03/10/24 10:00 Temperature Pulse Rate 68 65 70 Respiratory Rate 17 17 11 L Blood Pressure 222/61 H 213/65 H Pulse Oximetry 100 100 96 Oxygen Delivery 03/10/24 10:01 03/10/24 10:31 03/10/24 11:01 Temperature Pulse Rate 66 69 76 Respiratory Rate 12 15 18 Blood Pressure 208/69 H 204/64 H 192/59 H Pulse Oximetry 96 92 95 Oxygen Delivery 03/10/24 11:31 03/10/24 13:33 03/10/24 13:47 Temperature Pulse Rate 75 66 66 Respiratory Rate 16 18 Blood Pressure 186/65 H 181/60 H 173/65 H Pulse Oximetry 98 97 Oxygen Delivery 03/10/24 12:45 03/10/24 14:00 03/10/24 14:15 Temperature 97.3 F L Pulse Rate 67 68 84 Respiratory Rate 16 Blood Pressure 178/45 H 166/65 H 147/59 H Pulse Oximetry 94 Oxygen Delivery 03/10/24 14:30 03/10/24 14:45 03/10/24 15:15 Temperature Pulse Rate 81 69 76 Respiratory Rate Blood Pressure 117/54 L 164/66 H 139/60 Pulse Oximetry Oxygen Delivery 03/10/24 14:41 03/10/24 15:00 03/10/24 14:37 Temperature Pulse Rate 65 68 35 L Respiratory Rate Blood Pressure 125/57 L 155/62 H Pulse Oximetry Oxygen Delivery 03/10/24 12:45 03/10/24 15:30 03/10/24 15:45 Temperature Pulse Rate 75 76 Respiratory Rate Blood Pressure 154/59 H 149/69 H Pulse Oximetry Oxygen Delivery Room Air 03/10/24 16:00 03/10/24 16:15 03/10/24 16:00 Temperature Pulse Rate 73 77 78 Respiratory Rate Blood Pressure 136/57 L 123/58 L Pulse Oximetry Oxygen Delivery 03/10/24 16:30 03/10/24 17:36 03/10/24 16:45 Temperature Pulse Rate 72 75 76 Respiratory Rate 18 Blood Pressure 128/57 L 196/80 H 159/59 H Pulse Oximetry 100 Oxygen Delivery 03/10/24 16:50 03/10/24 18:11 03/10/24 19:58 Temperature 97.7 F 97.7 F Pulse Rate 68 83 75 Respiratory Rate 16 16 Blood Pressure 189/72 H 208/51 H 118/45 L Pulse Oximetry 94 92 Oxygen Delivery 03/10/24 20:00 03/10/24 20:00 03/10/24 23:33 Temperature 97.7 F Pulse Rate 75 78 77 Respiratory Rate 16 18 Blood Pressure 144/45 H Pulse Oximetry 92 92 Oxygen Delivery Room Air 03/11/24 00:00 03/11/24 04:00 03/11/24 04:32 Temperature 98.1 F Pulse Rate 77 82 79 Respiratory Rate 18 Blood Pressure 162/66 H Pulse Oximetry 96 Oxygen Delivery 03/11/24 04:00 Temperature Pulse Rate 79 Respiratory Rate Blood Pressure Pulse Oximetry Oxygen Delivery Intake/Output Intake/Output: Intake & Output 03/08/24 03/09/24 03/10/24 03/11/24 23:59 23:59 23:59 23:59 Intake Total 170 150 Output Total 1301 Balance -1131 150 Meds/Results Medications: Active Medications Generic Name Dose Route Start Last Admin Trade Name Freq PRN Reason Stop Dose Admin Acetaminophen 650 mg 03/10/24 22:44 03/10/24 23:08 Acetaminophen 325 Mg Tablet PO 650 mg Q6H PRN Administration Mild Pain (1-3) or Fever Albuterol 2 puff 03/10/24 12:38 Albuterol Sulfate (*Sp) Aerosol 1 Puff INHALATION Q6HRT PRN Shortness Of Breath Aspirin 81 mg 03/11/24 08:00 Aspirin 81 Mg Chewable Tablet PO DAILY@0800 [facility] Atorvastatin Calcium 80 mg 03/10/24 21:00 03/10/24 21:09 Atorvastatin 40 Mg Tablet PO 80 mg QHS [facility] Administration Carvedilol 25 mg 03/10/24 21:00 Carvedilol 25 Mg Tablet PO Q12HR [facility] Ergocalciferol 50,000 units 03/11/24 09:00 Ergocalciferol 50,000 Units Capsule PO WEEKLY [facility] Heparin Sodium (Porcine) 5,000 units 03/10/24 14:00 03/11/24 05:48 Heparin Sodium 5,000 Units/Ml Vial SUB-Q Not Given Q8HR [facility] Hydralazine HCl 10 mg 03/10/24 18:16 03/10/24 18:35 Hydralazine Hcl 20 Mg/Ml Vial IV PUSH 10 mg Q6HR PRN Administration For SBP > 160 Albumin Human 50 mls @ 999 mls/hr 03/10/24 11:13 Albutein IVPB 03/11/24 11:12 Q10M PRN HYPOTENSION Isosorbide Mononitrate 30 mg 03/11/24 09:00 Isosorbide Mononitrate 30 Mg Tab.Er.24h PO QAM [facility] Lidocaine/Prilocaine 1 each 03/10/24 12:45 03/10/24 17:55 Lidocaine/Prilocaine Cream 2.5-2.5% Tube TOPICAL Not Given TuThSa@0900 [facility] Lisinopril 20 mg 03/11/24 18:00 Lisinopril 20 Mg Tablet PO Q24H [facility] Melatonin 3 mg 03/10/24 12:43 03/10/24 21:09 Melatonin 3 Mg Tablet PO 3 mg HS PRN Administration insomnia Nifedipine 60 mg 03/11/24 09:00 Nifedipine 30 Mg Tab.Er.24 PO DAILY [facility] Oxybutynin Chloride 5 mg 03/10/24 21:00 03/10/24 21:09 Oxybutynin Chloride 5 Mg Tablet PO 5 mg HS [facility] Administration Pantoprazole Sodium 40 mg 03/11/24 09:00 Pantoprazole 40 Mg Tablet PO QAM [facility] Trazodone HCl 50 mg 03/10/24 21:00 03/10/24 21:09 Trazodone Hcl 50 Mg Tablet PO 50 mg HS [facility] Administration Radiology Results: ITS Impressions Chest X-Ray 03/10/24 08:22 IMPRESSION: Cardiomegaly, mild pleural effusions, right greater than left Bilateral lower lung infiltrate and/or atelectasis, primarily on the right Labs Labs: Laboratory Results - last 24 hr 03/10/24 03/10/24 03/10/24 08:37 13:40 13:42 WBC 5.5 RBC 3.82 L Hgb 10.7 L Hct 31.0 L MCV 81.2 MCH 28.0 MCHC 34.5 RDW 17.5 H Plt Count 117 L MPV 9.4 Immature Gran % (Auto) 0.4 Neut % (Auto) 67.2 Lymph % (Auto) 11.1 L [place] % (Auto) 10.7 H Eos % (Auto) 9.5 H Baso % (Auto) 1.1 Lymph # (Auto) 0.61 L [place] # (Auto) 0.6 Eos # (Auto) 0.5 H Baso # (Auto) 0.1 Abs Immat Gran (auto) 0.02 Absolute Neuts (auto) 3.7 Absolute Nucleated RBC 0.000 Nucleated RBC % 0.0 % Immature Plt Fraction 1.8 Sodium 137 Potassium 4.2 Chloride 106 Carbon Dioxide 25 Anion Gap 6 BUN 34 H Creatinine 3.80 H Estim Creat Clear Calc 7 Estimated GFR 14 L Glucose 80 Calcium 8.1 L Total Bilirubin 0.6 AST 47 H ALT 21 Alkaline Phosphatase 83 Total Protein 6.0 L Albumin 3.3 L TSH (Reflex) 2.390 Hep Bs Antigen Negative Hep Bs Antibody 03/10/24 03/11/24 13:43 05:28 WBC 5.6 RBC 3.62 L Hgb 10.4 L Hct 28.2 L MCV 77.9 L MCH 28.7 MCHC 36.9 H RDW 17.3 H Plt Count 123 L MPV 9.4 Immature Gran % (Auto) 0.4 Neut % (Auto) 69.0 Lymph % (Auto) 9.5 L [place] % (Auto) 13.1 H Eos % (Auto) 7.3 H Baso % (Auto) 0.7 Lymph # (Auto) 0.53 L [place] # (Auto) 0.7 H Eos # (Auto) 0.4 H Baso # (Auto) 0.0 Abs Immat Gran (auto) 0.02 Absolute Neuts (auto) 3.9 Absolute Nucleated RBC 0.000 Nucleated RBC % 0.0 % Immature Plt Fraction 2.2 Sodium Potassium Chloride Carbon Dioxide Anion Gap BUN Creatinine Estim Creat Clear Calc Estimated GFR Glucose Calcium Total Bilirubin AST ALT Alkaline Phosphatase Total Protein Albumin TSH (Reflex) Hep Bs Antigen Hep Bs Antibody Negative
--- NOTE | 2024-03-11 08:35 | PM.IMPN ---
Progress Note: A&P Assessment and Plan (1) Hypertensive urgency: Code(s): I16.0 - Hypertensive urgency Status: Acute Assessment and Plan: Was noted to have systolic blood pressure of 260 at her dialysis center and blood pressure did not improve with 2 doses of clonidine. She was sent to the hospital by Dr. Motley for further evaluation and inpatient dialysis. Blood pressures ranging 118/45 to 208/51 Continue hydralazine isosorbide, lisinopril, nifedipine (2) Hypertension: Qualifiers: Hypertension type: essential hypertension Qualified Code(s): I10 - Essential (primary) hypertension Code(s): I10 - Essential (primary) hypertension Status: Chronic Assessment and Plan: See above (3) CHF (congestive heart failure): Qualifiers: Heart failure type: combined systolic and diastolic Heart failure chronicity: acute on chronic Qualified Code(s): I50.43 - Acute on chronic combined systolic (congestive) and diastolic (congestive) heart failure Code(s): I50.9 - Heart failure, unspecified Status: Acute Assessment and Plan: Echo reviewed from 05/04/2023 showed normal LV systolic function with an estimated EF of greater than 70%, grade 1 diastolic dysfunction, moderate pulmonary hypertension. Moderate mitral and tricuspid regurgitation noted. She was noted to have a low ejection fraction back in 2020 and 2021 of 20-25%, since recovered. Cardiology consulted due to bradycardic and hypotensive episode in dialysis yesterday EKG on 03/10/2024 shown sinus rhythm with a heart rate of 60, QTC 436. (4) COPD (chronic obstructive pulmonary disease): Qualifiers: COPD type: unspecified COPD Qualified Code(s): J44.9 - Chronic obstructive pulmonary disease, unspecified Code(s): J44.9 - Chronic obstructive pulmonary disease, unspecified Status: Chronic Assessment and Plan: Continue albuterol rescue inhaler p.r.n. Former 1 pack per day smoker times 55 years (5) Chronic anemia: Code(s): D64.9 - Anemia, unspecified Status: Acute Assessment and Plan: Likely secondary to end-stage renal disease on dialysis Hemoglobin 10.4 Continue to trend (6) Hyperlipidemia: Code(s): E78.5 - Hyperlipidemia, unspecified Status: Acute Assessment and Plan: Continue aspirin and atorvastatin (7) End-stage renal disease on hemodialysis: Code(s): N18.6 - End stage renal disease; Z99.2 - Dependence on renal dialysis Status: Acute Assessment and Plan: Patient of Dr. Motley. She gets dialysis at [facility] on Tuesday Initial creatinine 3.80, EGFR 14, potassium 4.2 Avoid nephrotoxic medications Time Spent With Patient Time with patient: Greater than 35 minutes Subjective Date/time seen: 03/11/24 08:35 Interval history: Interval history: This is a 78-year-old female who presented to the hospital on 03/10/2024 from her dialysis center for elevated blood pressure readings per Dr. Motley. Patient was noted to have systolic blood pressure of 260 and received 2 doses of clonidine with no improvement at the dialysis center. Workup in the hospital included a chest x-ray which showed cardiomegaly with mild pleural effusion right greater than left, bilateral lower lung infiltrate and/or atelectasis mainly on the right side. Initial labs showed a normal white blood cell count of 5.5, hemoglobin 10.7, platelet count 117, creatinine 3.80, EGFR 14, potassium was 4.2, AST 47, TSH 2.390. Hepatitis-B antigen and antibody was negative. EKG showed sinus rhythm with left atrial enlargement with a rate of 60, QTC 436. Nephrology was consulted and patient was taken to dialysis. During dialysis she was noted to have low blood pressure and symptomatic bradycardia with nausea and vomiting. Last echo was reviewed from 05/04/2023 which shown a normal LV systolic function with an estimated EF of greater than 70%, grade 1 diastolic dysfunction, moderate pulmonary hypertension. Due to the bradycardia, cardiology was consulted. Subjective: Patient denies. Patient endorses. Labs and imaging reviewed. Review of Systems Review of Systems: All systems reviewed & are unremarkable except as noted in HPI and below Constitutional: Constitutional: Reports as per HPI and Reports no additional constitutional complaints Eyes: Eyes: Reports as per HPI and Reports no additional eye complaints ENT: Reports system reviewed and no additional complaints, except as documented and Reports as per HPI Cardiovascular: Cardiovascular: Reports as per HPI and Reports no additional cardiovascular complaints Respiratory: Respiratory: Reports as per HPI and Reports no additional respiratory complaints Gastrointestinal: Gastrointestinal: Reports as per HPI and Reports no additional gastrointestinal complaints Genitourinary: Genitourinary: Reports no additional female genitourinary complaints and Reports as per HPI Musculoskeletal: Musculoskeletal: Reports no additional musculoskeletal complaints and Reports as per HPI Integumentary/Breasts: Skin/Breast: Reports system reviewed and no additional complaints, except as docu and Reports as per HPI Neurologic: Reports system reviewed and no additional complaints, except as documented and Reports as per HPI Psychiatric: Psychiatric: Reports no additional psychiatric complaints and Reports as per HPI Exam Narrative: General: In no acute distress, well nourished Head: atraumatic, no encephalopathy Eyes: EOMI, PERRLA, sclera clear ENT: moist mucous membranes, nasal passages clear Neck: supple, no JVD, no adenopathy, trachea midline Cardiac: Normal S1 and S2. No murmur, gallops or friction rubs, peripheral pulses intact. Respiratory: Lungs clear to auscultation, no adventitious lung sounds Gastrointestinal: soft, non-distended, non-tender, normoactive bowel sounds. : voiding without difficulty. Extremities: moves all extremities well, no edema, good ROM, strength 5/5 Skin: clean, dry, intact. No wounds or lesions. Neuro: Alert and oriented x4, cranial nerves intact, no neuro deficits. Psych: normal mood, normal affect, interactive Objective Data Vital Signs Vital Signs: Vital Signs - 24 hr 03/10/24 08:45 03/10/24 09:00 03/10/24 09:31 Temperature Pulse Rate 70 70 68 Respiratory Rate 22 H 17 17 Blood Pressure 219/61 H 222/61 H Pulse Oximetry 100 100 100 Oxygen Delivery 03/10/24 09:41 03/10/24 10:00 03/10/24 10:01 Temperature Pulse Rate 65 70 66 Respiratory Rate 17 11 L 12 Blood Pressure 213/65 H 208/69 H Pulse Oximetry 100 96 96 Oxygen Delivery 03/10/24 10:31 03/10/24 11:01 03/10/24 11:31 Temperature Pulse Rate 69 76 75 Respiratory Rate 15 18 16 Blood Pressure 204/64 H 192/59 H 186/65 H Pulse Oximetry 92 95 98 Oxygen Delivery 03/10/24 13:33 03/10/24 13:47 03/10/24 12:45 Temperature 97.3 F L Pulse Rate 66 66 67 Respiratory Rate 18 16 Blood Pressure 181/60 H 173/65 H 178/45 H Pulse Oximetry 97 94 Oxygen Delivery 03/10/24 14:00 03/10/24 14:15 03/10/24 14:30 Temperature Pulse Rate 68 84 81 Respiratory Rate Blood Pressure 166/65 H 147/59 H 117/54 L Pulse Oximetry Oxygen Delivery 03/10/24 14:45 03/10/24 15:15 03/10/24 14:41 Temperature Pulse Rate 69 76 65 Respiratory Rate Blood Pressure 164/66 H 139/60 125/57 L Pulse Oximetry Oxygen Delivery 03/10/24 15:00 03/10/24 14:37 03/10/24 12:45 Temperature Pulse Rate 68 35 L Respiratory Rate Blood Pressure 155/62 H Pulse Oximetry Oxygen Delivery Room Air 03/10/24 15:30 03/10/24 15:45 03/10/24 16:00 Temperature Pulse Rate 75 76 73 Respiratory Rate Blood Pressure 154/59 H 149/69 H 136/57 L Pulse Oximetry Oxygen Delivery 03/10/24 16:15 03/10/24 16:00 03/10/24 16:30 Temperature Pulse Rate 77 78 72 Respiratory Rate Blood Pressure 123/58 L 128/57 L Pulse Oximetry Oxygen Delivery 03/10/24 17:36 03/10/24 16:45 03/10/24 16:50 Temperature Pulse Rate 75 76 68 Respiratory Rate 18 Blood Pressure 196/80 H 159/59 H 189/72 H Pulse Oximetry 100 Oxygen Delivery 03/10/24 18:11 03/10/24 19:58 03/10/24 20:00 Temperature 97.7 F 97.7 F Pulse Rate 83 75 75 Respiratory Rate 16 16 16 Blood Pressure 208/51 H 118/45 L Pulse Oximetry 94 92 92 Oxygen Delivery Room Air 03/10/24 20:00 03/10/24 23:33 03/11/24 00:00 Temperature 97.7 F Pulse Rate 78 77 77 Respiratory Rate 18 Blood Pressure 144/45 H Pulse Oximetry 92 Oxygen Delivery 03/11/24 04:00 03/11/24 04:32 03/11/24 04:00 Temperature 98.1 F Pulse Rate 82 79 79 Respiratory Rate 18 Blood Pressure 162/66 H Pulse Oximetry 96 Oxygen Delivery Intake/Output Intake/Output: Intake & Output 03/08/24 03/09/24 03/10/24 03/11/24 23:59 23:59 23:59 23:59 Intake Total 170 150 Output Total 1301 Balance -1131 150 Meds/Results Medications: Active Medications Generic Name Dose Route Start Last Admin Trade Name Freq PRN Reason Stop Dose Admin Acetaminophen 650 mg 03/10/24 22:44 03/10/24 23:08 Acetaminophen 325 Mg Tablet PO 650 mg Q6H PRN Administration Mild Pain (1-3) or Fever Albuterol 2 puff 03/10/24 12:38 Albuterol Sulfate (*Sp) Aerosol 1 Puff INHALATION Q6HRT PRN Shortness Of Breath Aspirin 81 mg 03/11/24 08:00 Aspirin 81 Mg Chewable Tablet PO DAILY@0800 [facility] Atorvastatin Calcium 80 mg 03/10/24 21:00 03/10/24 21:09 Atorvastatin 40 Mg Tablet PO 80 mg QHS BRANDON Administration Carvedilol 25 mg 03/10/24 21:00 Carvedilol 25 Mg Tablet PO Q12HR [facility] Ergocalciferol 50,000 units 03/11/24 09:00 Ergocalciferol 50,000 Units Capsule PO WEEKLY [facility] Heparin Sodium (Porcine) 5,000 units 03/10/24 14:00 03/11/24 05:48 Heparin Sodium 5,000 Units/Ml Vial SUB-Q Not Given Q8HR [facility] Hydralazine HCl 10 mg 03/10/24 18:16 03/10/24 18:35 Hydralazine Hcl 20 Mg/Ml Vial IV PUSH 10 mg Q6HR PRN Administration For SBP > 160 Albumin Human 50 mls @ 999 mls/hr 03/10/24 11:13 Albutein IVPB 03/11/24 11:12 Q10M PRN HYPOTENSION Isosorbide Mononitrate 30 mg 03/11/24 09:00 Isosorbide Mononitrate 30 Mg Tab.Er.24h PO QAM [facility] Lidocaine/Prilocaine 1 each 03/10/24 12:45 03/10/24 17:55 Lidocaine/Prilocaine Cream 2.5-2.5% Tube TOPICAL Not Given TuThSa@0900 [facility] Lisinopril 20 mg 03/11/24 18:00 Lisinopril 20 Mg Tablet PO Q24H [facility] Melatonin 3 mg 03/10/24 12:43 03/10/24 21:09 Melatonin 3 Mg Tablet PO 3 mg HS PRN Administration insomnia Nifedipine 60 mg 03/11/24 09:00 Nifedipine 30 Mg Tab.Er.24 PO DAILY [facility] Oxybutynin Chloride 5 mg 03/10/24 21:00 03/10/24 21:09 Oxybutynin Chloride 5 Mg Tablet PO 5 mg HS [facility] Administration Pantoprazole Sodium 40 mg 03/11/24 09:00 Pantoprazole 40 Mg Tablet PO QAM [facility] Trazodone HCl 50 mg 03/10/24 21:00 03/10/24 21:09 Trazodone Hcl 50 Mg Tablet PO 50 mg HS [facility] Administration Radiology Results: ITS Impressions Chest X-Ray 03/10/24 08:22 IMPRESSION: Cardiomegaly, mild pleural effusions, right greater than left Bilateral lower lung infiltrate and/or atelectasis, primarily on the right Labs Labs: Laboratory Results - last 24 hr 03/10/24 03/10/24 03/10/24 08:37 13:40 13:42 WBC 5.5 RBC 3.82 L Hgb 10.7 L Hct 31.0 L MCV 81.2 MCH 28.0 MCHC 34.5 RDW 17.5 H Plt Count 117 L MPV 9.4 Immature Gran % (Auto) 0.4 Neut % (Auto) 67.2 Lymph % (Auto) 11.1 L [place] % (Auto) 10.7 H Eos % (Auto) 9.5 H Baso % (Auto) 1.1 Lymph # (Auto) 0.61 L [place] # (Auto) 0.6 Eos # (Auto) 0.5 H Baso # (Auto) 0.1 Abs Immat Gran (auto) 0.02 Absolute Neuts (auto) 3.7 Absolute Nucleated RBC 0.000 Nucleated RBC % 0.0 % Immature Plt Fraction 1.8 Sodium 137 Potassium 4.2 Chloride 106 Carbon Dioxide 25 Anion Gap 6 BUN 34 H Creatinine 3.80 H Estim Creat Clear Calc 7 Estimated GFR 14 L Glucose 80 Calcium 8.1 L Total Bilirubin 0.6 AST 47 H ALT 21 Alkaline Phosphatase 83 Total Protein 6.0 L Albumin 3.3 L TSH (Reflex) 2.390 Hep Bs Antigen Negative Hep Bs Antibody 03/10/24 03/11/24 13:43 05:28 WBC 5.6 RBC 3.62 L Hgb 10.4 L Hct 28.2 L MCV 77.9 L MCH 28.7 MCHC 36.9 H RDW 17.3 H Plt Count 123 L MPV 9.4 Immature Gran % (Auto) 0.4 Neut % (Auto) 69.0 Lymph % (Auto) 9.5 L [place] % (Auto) 13.1 H Eos % (Auto) 7.3 H Baso % (Auto) 0.7 Lymph # (Auto) 0.53 L [place] # (Auto) 0.7 H Eos # (Auto) 0.4 H Baso # (Auto) 0.0 Abs Immat Gran (auto) 0.02 Absolute Neuts (auto) 3.9 Absolute Nucleated RBC 0.000 Nucleated RBC % 0.0 % Immature Plt Fraction 2.2 Sodium Potassium Chloride Carbon Dioxide Anion Gap BUN Creatinine Estim Creat Clear Calc Estimated GFR Glucose Calcium Total Bilirubin AST ALT Alkaline Phosphatase Total Protein Albumin TSH (Reflex) Hep Bs Antigen Hep Bs Antibody Negative Quality VTE Prophylaxis VTE prophylaxis: mechanical ordered
[2024-03-11 08:42] VITALS: BP 196/60; PULSE 90
[2024-03-11] MEDS: ASPIRIN 81 MG CHEWABLE TABLET PO (08:44)
[2024-03-11] MEDS: ISOSORBIDE MONONITRATE 30 MG TAB.ER.24H PO (08:45)
[2024-03-11] MEDS: NIFEdipine 30 MG TAB.ER.24 60 MG PO (08:46)
[2024-03-11] MEDS: PANTOPRAZOLE 40 MG TABLET PO (08:49)
[2024-03-11] MEDS: ERGOCALCIFEROL 50,000 UNITS CAPSULE 50000 UNITS PO (08:49)
[2024-03-11 09:34] LABS: Alanine Aminotransferase 21 U/L (6-35); Albumin Level 3.1 g/dL (3.5-5.1); Alkaline Phosphatase 90 U/L (38-126); Anion Gap 3 mmol/L (4-12); Aspartate Amino Transferase 39 U/L (14-36); Bilirubin,Total 0.6 mg/dL (0.2-1.3); Blood Urea Nitrogen 22 mg/dL (7-17); Calcium 8.3 mg/dL (8.4-10.2); Carbon Dioxide 36 mmol/L (22-30); Chloride 99 mmol/L (98-107); Estimated CRCL calculation 7 ml/min; Estimated Glomerular Filt Rate 19; Glucose 73 mg/dL (65-110); Potassium 4.2 mmol/L (3.4-5.0); Sodium 138 mmol/L (137-145)
--- NOTE | 2024-03-11 10:27 | P.DS_ITS ---
DS: Admitting Diagnosis Discharge Date 03/11/24 Admitting Diagnosis Hypertension CHF Cardiomyopathy Heart failure COPD Combined systolic and diastolic CHF PAD COPD with emphysema chronic anemia hyperlipidemia hypertensive urgency ESRD on HD DS: Summary Hospital Course Reason for hospitalization: Hypertension CHF Cardiomyopathy Heart failure COPD Combined systolic and diastolic CHF PAD COPD with emphysema chronic anemia hyperlipidemia hypertensive urgency ESRD on HD Hospital Course: This is a 78-year-old female who presented to the hospital on 03/10/2024 from her dialysis center for elevated blood pressure readings per Dr. Motley. Patient was noted to have systolic blood pressure of 260 and received 2 doses of clonidine with no improvement at the dialysis center. Workup in the hospital included a chest x-ray which showed cardiomegaly with mild pleural effusion right greater than left, bilateral lower lung infiltrate and/or atelectasis mainly on the right side. Initial labs showed a normal white blood cell count of 5.5, hemoglobin 10.7, platelet count 117, creatinine 3.80, EGFR 14, potassium was 4.2, AST 47, TSH 2.390. Hepatitis-B antigen and antibody was negative. EKG showed sinus rhythm with left atrial enlargement with a rate of 60, QTC 436. Nephrology was consulted and patient was taken to dialysis. During dialysis she was noted to have low blood pressure and symptomatic bradycardia with nausea and vomiting. Last echo was reviewed from 05/04/2023 which shown a normal LV systolic function with an estimated EF of greater than 70%, grade 1 diastolic dysfunction, moderate pulmonary hypertension. Due to the bradycardia, cardiology was consulted. Patient denies any fever, chills, nausea, vomiting, diarrhea, abdominal pain, chest pain, or shortness of breath. She appears upset and agitated to even be admitted. She states that she would not even be in this situation if they didn't put her on the wrong medication for her blood pressure. She states that no matter what she is leaving today. She will not stay an additional night. I called Dr. Motley and explained what the patient's wishes are and he agrees that she is stable for discharge at this time with a cardiology follow up at discharge alone with an Echo that can be done on an outpatient basis. I also spoke to Dr. El ( cardiology) who is recommending a heart monitor upon discharge which she can receive when she sees cardiology. Labs and imaging reviewed. VSS, she is afebrile, currently on room air. She will continue on Imdur, Lisinopril and nifedipine daily.. She will hold Coreg until she is seen and evaluated by manager primary for her symptomatic bradycardia while receiving HD. Patient is agreeable to plan and she is stable for discharge at this time. Final diagnosis: uncontrolled hypertension, symptomatic bradycardia, ESRD on dialysis Status at Discharge Cognitive/behavioral status at discharge: Alert and oriented x3 Functional status at discharge: independent ambulation Overall status at discharge: patient is progressing back to baseline Time Spent with Patient Time attestation: Total time spent providing and/or coordinating discharge services: Time spent: Greater than 30 minutes Exam Narrative: General: In no acute distress, malnourished Head: atraumatic, no encephalopathy Eyes: PERRLA, sclera clear ENT: moist mucous membranes, nasal passages clear Neck: supple, no JVD, no adenopathy, trachea midline Cardiac: Normal S1 and S2. NSR in the 80's No murmur, gallops or friction rubs, peripheral pulses intact. Respiratory: Lungs clear to auscultation, no adventitious lung sounds, currently on room air Gastrointestinal: soft, non-distended, non-tender, normoactive bowel sounds. : ESRD on HD -Sat at [facility] with dressing in place Extremities: moves all extremities well, no edema, good ROM, strength 5/5 Skin: clean, dry, intact. No wounds or lesions. Neuro: Alert and oriented x4, cranial nerves intact, no neuro deficits. Psych: agitated with having to be here at hospital DS: Data Data Completed and Pending Completed studies during hospitalization: Chest x-ray Pending studies at discharge: None Labs on day of discharge: Labs from last 24 hours 03/11/24 03/11/24 03/10/24 05:28 05:24 13:43 WBC 5.6 RBC 3.62 L Hgb 10.4 L Hct 28.2 L MCV 77.9 L MCH 28.7 MCHC 36.9 H RDW 17.3 H Plt Count 123 L MPV 9.4 Immature Gran % (Auto) 0.4 Neut % (Auto) 69.0 Lymph % (Auto) 9.5 L [place] % (Auto) 13.1 H Eos % (Auto) 7.3 H Baso % (Auto) 0.7 Lymph # (Auto) 0.53 L [place] # (Auto) 0.7 H Eos # (Auto) 0.4 H Baso # (Auto) 0.0 Abs Immat Gran (auto) 0.02 Absolute Neuts (auto) 3.9 Absolute Nucleated RBC 0.000 Nucleated RBC % 0.0 % Immature Plt Fraction 2.2 Sodium 138 Potassium 4.2 Chloride 99 Carbon Dioxide 36 H Anion Gap 3 L BUN 22 H D Creatinine 2.90 H Estim Creat Clear Calc 7 Estimated GFR 19 L Glucose 73 Calcium 8.3 L Total Bilirubin 0.6 AST 39 H ALT 21 Alkaline Phosphatase 90 Total Protein 6.0 L Albumin 3.1 L Renin Aldosterone Pending Vitamin B12 Pending Folate Pending TSH (Reflex) Hep Bs Antigen Hep Bs Antibody Negative 03/10/24 03/10/24 13:42 13:40 WBC RBC Hgb Hct MCV MCH MCHC RDW Plt Count MPV Immature Gran % (Auto) Neut % (Auto) Lymph % (Auto) Cors[place] % (Auto) Eos % (Auto) Baso % (Auto) Lymph # (Auto) [place] # (Auto) Eos # (Auto) Baso # (Auto) Abs Immat Gran (auto) Absolute Neuts (auto) Absolute Nucleated RBC Nucleated RBC % % Immature Plt Fraction Sodium Potassium Chloride Carbon Dioxide Anion Gap BUN Creatinine Estim Creat Clear Calc Estimated GFR Glucose Calcium Total Bilirubin AST ALT Alkaline Phosphatase Total Protein Albumin Renin Pending Aldosterone Vitamin B12 Folate TSH (Reflex) 2.390 Hep Bs Antigen Negative Hep Bs Antibody Procedures/Treatments: None Discharge Plan Discharge Attending physician on discharge: Prakash Nelson Consulting providers: Joshua Motley; Yevgeniy El Discharging Clinician: Rosita Disla Anticipated Discharge Date/Time: 03/11/24 10:12 Patient Disposition: Home, Self-Care Activity: as tolerated Diet: as tolerated and renal Discharge Instructions: * Get echocardiogram as an outpatient for your symptomatic bradycardia with dialysis yesterday. You can come back to [place] outpatient for this test. * Follow up with Dr. Espinoza ( Mechanical Test Engineer) in 2 weeks or after you have your echo. * Cardiology is recommending a heart monitor for outpatient. Call the office to have monitor set up outpatient. * Continue taking you Lisinopril, Isosorbide, and Nifedipine as previous * Hold Coreg until evaluated by Mechanical Test Engineer considering your symptomatic bradycardia (low heart rate) Patient Instructions: Antibiotic Form Patient Language: Slovak Stand Alone Forms: General Discharge Information Follow-up/Referrals: Pippa Espinoza MD [Physician] - 2 Weeks Discharge Medications: New nifedipine [Procardia XL] 30 mg Tablet Extended Release 24hr 60 mg PO DAILY Qty: 60 0RF Continued aspirin 81 mg Tablet 81 mg PO DAILY isosorbide mononitrate 30 mg tablet extended release 24 hr 30 mg PO DAILY Qty: 30 0RF trazodone 50 mg tablet 50 mg PO HS omeprazole 40 mg capsule,delayed release(DR/EC) 40 mg PO DAILY oxybutynin chloride 5 mg tablet 5 mg PO HS melatonin 3 mg tablet 3 mg PO HS PRN (Reason: Sleep) ergocalciferol (vitamin D2) 1,250 mcg (50,000 unit) capsule 50,000 unit PO BID Brilinta 90 mg tablet 90 mg PO BID Patient Comments: Patient stated that it is not re-fillable. albuterol sulfate 90 mcg/actuation HFA aerosol inhaler 2 puff INHALATION Q6H PRN (Reason: Shortness Of Breath) lisinopril 20 mg tablet 20 mg PO DAILY atorvastatin 80 mg tablet 80 mg PO HS Held carvedilol 25 mg tablet 25 mg PO BIDWM Hold Instructions: Resume on 04/11/24. Until evaluated by Mechanical Test Engineer. They will let you know if you need to restart this medication. Discontinued nifedipine 30 mg tablet extended release 30 mg PO DAILY Other Ambulatory Orders: [place] echo doppler color flow (Routine) Timeframe: 1 Week Location: Determined by Patient Ordered By: Rosita Disla Date of admission: 03/10/24 11:16 Primary Care Provider: Myron Moore Admitting Provider: Prakash Nelson Attending physician on admission: Rosita Disla Condition: Improved
[2024-03-11 10:40] LABS: Folic Acid 5.5 ng/mL (2.76->20)
== END 2024-03-11 13:00 | disposition home or self-care (01) ==
LOC: ANHED 10:58 → ANH2MED 11:48
PROVIDERS: Internal Medicine Nephrology; Admitting Provider Internal Medicine; Emergency Provider Emergency Medicine; Visit Provider Nurse Practitioner Acute Care
DX: I16.0 Hypertensive urgency (principal); E87.70 Fluid overload, unspecified; N25.0 Renal osteodystrophy; I13.2 Hypertensive heart and chronic kidney disease with heart failure and with stage 5 chronic kidney disease, or end stage renal disease; I42.9 Cardiomyopathy, unspecified; I50.40 Unspecified combined systolic (congestive) and diastolic (congestive) heart failure; D63.1 Anemia in chronic kidney disease; N18.6 End stage renal disease; Z99.2 Dependence on renal dialysis; J43.9 Emphysema, unspecified; E78.5 Hyperlipidemia, unspecified; K31.819 Angiodysplasia of stomach and duodenum without bleeding; N25.81 Secondary hyperparathyroidism of renal origin; I73.9 Peripheral vascular disease, unspecified; Z79.82 Long term (current) use of aspirin; Z79.01 Long term (current) use of anticoagulants; Z79.51 Long term (current) use of inhaled steroids; Z95.820 Peripheral vascular angioplasty status with implants and grafts; Z87.891 Personal history of nicotine dependence
CPT/HCPCS: 36415; 71045; 80053; 82088; 82607; 82746; 84244; 84443; 85025; 85055; 86706; 87340; 93005; 96374; 99285; A9270; G0257; G0378; J0360; J1644; J7030

== ENCOUNTER 2024-03-22 18:11 | Emergency (ER) | payer MEDICARE, BC, SELFPAY ==
[2024-03-22 18:19] VITALS: BP 221/73; PULSE 98; RESP 18; TEMP 37.1; O2SAT 97
[2024-03-22 19:42] VITALS: BP 206/87; PULSE 93; RESP 16; TEMP 36.6; O2SAT 94
[2024-03-22 21:18] VITALS: BP 233/102; PULSE 94; RESP 18; TEMP 36.6; O2SAT 96
[2024-03-22 23:12] VITALS: BP 240/102; PULSE 94; RESP 18; TEMP 37; O2SAT 94
[2024-03-23 00:16] VITALS: BP 244/82; PULSE 88; RESP 14; O2SAT 100
--- NOTE | 2024-03-23 00:19 | ED.RECABL ---
HPI - Recheck/Abnormal Lab/Rx General Chief Complaint: Recheck/Abnormal Lab/Rx <Elissa Garcia APRN - Last Filed: 03/23/24 17:09> Stated Complaint: HTN <Elissa Garcia APRN - Last Filed: 03/23/24 17:09> Time Seen by Provider: 03/23/24 00:03 <Elissa Garcia APRN - Last Filed: 03/23/24 17:09> History of Present Illness HPI narrative: Patient is a 78-year-old female who presents to the ER with elevated blood pressure. She denies any signs and symptoms associated with her elevated BP. Patient is well-known to this healthcare provider as she has come in and been treated for this same condition before. She reports she has been taking her medications as prescribed and would not even come into the ER had she not known her blood pressure reading. Patient just had blood work performed here on March 11 and gets her blood work checked at dialysis on Tuesdays, , Sundays. She reports my son thinks this is because of what I eat, but I am almost 79 years old and I am going to eat what I want. Patient reports her son made her come in today because he took her blood pressure at home and noticed it was elevated. She denies any headache, dizziness, weakness, one-sided with numbness /tingling. Patient reports Please do not poke me! I do not wanna have an IV again. She reports she had dialysis today and says my blood pressure was low but was so high that they refused to dialyze me today. They have done that to me before. <Elissa Garcia APRN - Last Filed: 03/23/24 17:09> Related Data Home Medications: Home Medications ?Medication ?Instructions ?Recorded ?Confirmed ?Last Taken ?Type aspirin 81 mg tablet 81 mg PO DAILY 05/10/20 03/10/24 09/03/23 History melatonin 3 mg tablet 3 mg PO HS PRN Sleep 12/08/22 03/10/24 09/03/23 History omeprazole 40 mg capsule,delayed 40 mg PO DAILY 12/08/22 03/10/24 1 Day Ago History release ~09/03/23 oxybutynin chloride 5 mg tablet 5 mg PO HS 12/08/22 03/10/24 09/03/23 History trazodone 50 mg tablet 50 mg PO HS 12/08/22 03/10/24 09/03/23 History ergocalciferol (vitamin D2) 1,250 50,000 unit PO BID 10/11/23 03/10/24 Unknown History mcg (50,000 unit) capsule ticagrelor 90 mg tablet (Brilinta) 90 mg PO BID 10/11/23 03/10/24 Unknown History albuterol sulfate 90 mcg/actuation 2 puff inhalation Q6H PRN 12/14/23 03/10/24 Unknown History aerosol inhaler Shortness Of Breath lisinopril 20 mg tablet 20 mg PO DAILY 12/15/23 03/10/24 12/14/23 History atorvastatin 80 mg tablet 80 mg PO HS 03/10/24 03/10/24 Unknown History carvedilol 25 mg tablet 25 mg PO BIDWM 03/10/24 03/10/24 Unknown History <Elissa Garcia APRN - Last Filed: 03/23/24 17:09> Allergies/Adverse Reactions: Allergies Allergy/AdvReac Type Severity Reaction Status Date / Time Penicillins Allergy Unknown Unknown,Ham Verified 12/14/23 16:56 h <Elissa Garcia APRN - Last Filed: 03/23/24 17:09> Review of Systems Review of Systems: All systems reviewed & are unremarkable except as noted in HPI and below <Elissa Garcia APRN - Last Filed: 03/23/24 17:09> [facility] Past Medical History Medical History: Medical History Hyperparathyroidism due to ESRD on dialysis End-stage renal disease on hemodialysis Tuesday. Dialysis managed by Dr. Joshua Motley Hyperlipidemia Chronic anemia History of blood transfusion. COPD with emphysema Peripheral arterial disease Combined systolic and diastolic congestive heart failure Echocardiogram on 09/10/2020 EF of 20 to 25%, grade 1 diastolic dysfunction, reduced RV systolic function. 12/2020 echo EF 40-46% with segmental wall motion abnormalities Gastric AVM Cardiomyopathy Presumed ischemic with moderately sized moderately severe reversible defect and small mild non reversible infarct on Lexiscan stress on 09/12/2020. Hypertension <Elissa Garcia APRN - Last Filed: 03/23/24 17:09> Surgical History Surgical History: Surgical History Surgically constructed arteriovenous fistula Left upper arm History of colonoscopy History of colon polyps, internal hemorrhoids, and diverticulosis. History of esophagogastroduodenoscopy History of gastric erosions, gastric polyps, and duodenal AVMs. History of revascularization procedure of lower extremity (10/2019) Bilateral lower extremity stents per Dr. Carrillo. History of vascular surgery (06/12/13) Aorto bi-iliac bypass graft per Dr. Carrillo. <Elissa Garcia APRN - Last Filed: 03/23/24 17:09> Family History Family History: Family History Mother Alzheimer disease Father Emphysema of lung <Elissa Garcia APRN - Last Filed: 03/23/24 17:09> Social History Social History: Social History Social History: Surrogate medical decision maker: Dhaval Allen, hay. Code status: Full code. Smoking packs per day: 1 Smoking cigarettes per day: 20.0 Years smoked: 55 Smoking pack-years: 55.00 Smoking status: Former smoker Second hand tobacco smoke exposure: Yes Alcohol intake: never Substance use: never Substance use type: does not use Do You Feel Safe in your Home?: Yes Lack of Transportation: No Lack of Food: Never True Current Housing: I Have Housing Concerned About Future Housing: No Difficulty Paying Gas/Electric Bills: No Difficulty Paying for Meds: No Currently Unemployed: No Education: Associate Degree Difficulty w/ Childcare or Family Care: No Additional living arrangements comments: . Lives with her only son in [place]. Additional occupation/education comments: Retired from the [employer]. Spiritual care concerns: No <Elissa Garcia APRN - Last Filed: 03/23/24 17:09> Exam Narrative: GENERAL: Well appearing, well-nourished, non-toxic, in no acute distress. HEAD: Normocephalic, atraumatic. NECK: Supple. No adenopathy, no masses. RESPIRATORY: Airway patent, respirations nonlabored. Clear to auscultation bilaterally, no rales, rhonchi, wheezing. CARDIOVASCULAR: Regular rate and rhythm without murmurs, rubs, or gallops. Peripheral pulses 2+ and equal bilaterally. ABDOMINAL: Soft, nontender, nondistended, no hepatosplenomegaly. Normoactive BS. MUSCULOSKELETAL: Moves all extremities. Strength/ROM intact without gross deformities. SKIN: Warm, dry, normal color. No rashes. NEURO: A&O X3. Speech clear. Cranial nerves II-XII grossly intact. No ataxic movements. PSYCHIATRIC: Appropriate mood and affect. Normal interaction. <Elissa Garcia APRN - Last Filed: 03/23/24 17:09> Course INSEMINATOR/PA Physician Supervision Patient's HPI, Exam, and MDM were reviewed and I agreed with the workup and disposition done in the emergency department by the MLP. I was available for consultation, but was not directly involved with patient's care nor did I evaluate the patient. <Bro Flores MD - Last Filed: 03/23/24 22:08> Vital Signs Vital signs: Vital Signs Temperature 37.1 C 03/22/24 18:19 Pulse Rate 98 03/22/24 18:19 Respiratory Rate 18 03/22/24 18:19 Blood Pressure 221/73 H 03/22/24 18:19 Pulse Oximetry 97 03/22/24 18:19 Temperature 37.0 C 03/22/24 23:12 Pulse Rate 78 03/23/24 03:38 Respiratory Rate 14 03/23/24 03:38 Blood Pressure 222/76 H 03/23/24 03:38 Pulse Oximetry 100 03/23/24 03:38 <Elissa Garcia APRN - Last Filed: 03/23/24 17:09> Vital Signs Temperature 37.1 C 03/22/24 18:19 Pulse Rate 98 03/22/24 18:19 Respiratory Rate 18 03/22/24 18:19 Blood Pressure 221/73 H 03/22/24 18:19 Pulse Oximetry 97 03/22/24 18:19 Temperature 37.0 C 03/22/24 23:12 Pulse Rate 78 03/23/24 03:38 Respiratory Rate 14 03/23/24 03:38 Blood Pressure 222/76 H 03/23/24 03:38 Pulse Oximetry 100 03/23/24 03:38 <Bro Flores MD - Last Filed: 03/23/24 22:08> MDM - Recheck/Abnormal Lab/Rx MDM Narrative Medical decision making narrative: Patient is a 78-year-old female who presents to the ER with elevated blood pressure. She denies any signs and symptoms associated with her elevated BP. Patient is well-known to this healthcare provider as she has come in and been treated for this same condition before. She reports she has been taking her medications as prescribed and would not even come into the ER had she not known her blood pressure reading. Patient just had blood work performed here on March 11 and gets her blood work checked at dialysis on Tuesdays, , Sundays. She reports my son thinks this is because of what I eat, but I am almost 79 years old and I am going to eat what I want. Patient reports her son made her come in today because he took her blood pressure at home and noticed it was elevated. She denies any headache, dizziness, weakness, one-sided with numbness /tingling. Patient reports Please do not poke me! I do not wanna have an IV again. She reports she had dialysis today and says my blood pressure was low but was so high that they refused to dialyze me today. They have done that to me before. Labs Ordered: Patient requesting none be ordered. Imaging Ordered: None necessary. Diagnosis: uncontrolled hypertension, asymptomatic hypertensive urgency Risks: HEART score 7 Patient Education/Shared MDM: Although patient's heart score is a 7, that number is unchanged from previous ER visits. 0120- Pt's blood pressure has not decreased since Hydralazine administration, so will give pt her regular BP home medications. Disposition/Plan: Patient's blood pressure continues to remain elevated in the 230s/70s, even after her home medication administration, along with hydralazine p.o. administration. She continues to be asymptomatic. Pt verbalizes understanding of her continued high blood pressure, but would like to be discharged home instead of being admitted to the hospital. She was advised to continue taking her home blood pressure medication regimen and follow-up with her laboratory development technician as soon as possible. Patient verbalized understanding and is in agreement for plan to discharge home. <Elissa Garcia APRN - Last Filed: 03/23/24 17:09> Differential Diagnosis Differential diagnosis: Likely other (asymptomatic hypertensive urgency, uncontrolled hypertension) <Elissa Garcia APRN - Last Filed: 03/23/24 17:09> Discharge Plan Discharge Clinical Impression: Asymptomatic hypertensive urgency, Uncontrolled hypertension <Elissa Garcia APRN - Last Filed: 03/23/24 17:09> Patient Disposition: Home, Self-Care <Elissa Garcia APRN - Last Filed: 03/23/24 17:09> Condition: Stable <Elissa Garcia APRN - Last Filed: 03/23/24 17:09> Instructions: Antibiotic Form <Elissa Garcia APRN - Last Filed: 03/23/24 17:09> Additional Instructions: Please return to the ER if you develop symptoms related to your high blood pressure including, headache, dizziness, mental status changes. Follow-up with primary care provider and your laboratory development technician in the next 1-2 days. Take all medications as prescribed. <Elissa Garcia APRN - Last Filed: 03/23/24 17:09> Patient Language: Maori <Elissa Garcia APRN - Last Filed: 03/23/24 17:09> Prescriptions: No Action aspirin 81 mg Tablet 81 mg PO DAILY isosorbide mononitrate 30 mg tablet extended release 24 hr 30 mg PO DAILY Qty: 30 0RF trazodone 50 mg tablet 50 mg PO HS omeprazole 40 mg capsule,delayed release(DR/EC) 40 mg PO DAILY oxybutynin chloride 5 mg tablet 5 mg PO HS melatonin 3 mg tablet 3 mg PO HS PRN (Reason: Sleep) ergocalciferol (vitamin D2) 1,250 mcg (50,000 unit) capsule 50,000 unit PO BID Brilinta 90 mg tablet 90 mg PO BID Patient Comments: Patient stated that it is not re-fillable. albuterol sulfate 90 mcg/actuation HFA aerosol inhaler 2 puff INHALATION Q6H PRN (Reason: Shortness Of Breath) lisinopril 20 mg tablet 20 mg PO DAILY atorvastatin 80 mg tablet 80 mg PO HS carvedilol 25 mg tablet 25 mg PO BIDWM nifedipine [Procardia XL] 30 mg Tablet Extended Release 24hr 60 mg PO DAILY Qty: 60 0RF <Elissa Garcia APRN - Last Filed: 03/23/24 17:09> Follow-up/Referrals: UNKNOWN,DOCTOR [Primary Care Provider] - <Elissa Garcia APRN - Last Filed: 03/23/24 17:09> Time of Disposition: 03:12 <Elissa Garcia APRN - Last Filed: 03/23/24 17:09> 03:12 <Bro Flores MD - Last Filed: 03/23/24 22:08>
--- NOTE | 2024-03-23 00:31 | ECG_ITS ---
Test Date: 2024-03-23 00:55:17 Measurements Intervals [place] Rate: 86 P: 71 CO: 154 QRS: 82 QRSD: 75 T: 63 QT: 379 QTc: 455 Interpretive Statements SINUS RHYTHM LEFT ATRIAL ENLARGEMENT [-0.15mV P-WAVE IN V1/V2] SEPTAL MYOCARDIAL INFARCTION , OF INDETERMINATE AGE [40+ ms Q WAVE IN V1/V2] MODERATE T-WAVE ABNORMALITY, CONSIDER LATERAL ISCHEMIA [-0.1+ mV T-WAVE IN I/aVL/V5/V6] Compared to ECG 03/10/2024 08:55:37 T-wave abnormality now present Myocardial infarct finding still present Electronically Signed On 03-23-2024 18:39:14 MATERIALS TECH by Minerva Chatman M.D.
[2024-03-23] MEDS: hydrALAZINE HCL 25 MG TABLET PO (00:54)
[2024-03-23 01:14] VITALS: BP 256/92; PULSE 102; RESP 20; O2SAT 93
[2024-03-23 01:16] VITALS: BP 249/86; PULSE 100; RESP 19; O2SAT 94
[2024-03-23 01:19] VITALS: BP 241/87; PULSE 100; RESP 15; O2SAT 91
[2024-03-23] MEDS: lisinopriL 20 MG TABLET PO (01:44)
[2024-03-23] MEDS: NIFEdipine 30 MG TAB.ER.24 60 MG PO (01:44)
[2024-03-23 03:38] VITALS: BP 222/76; PULSE 78; RESP 14; O2SAT 100
== END 2024-03-23 03:40 | disposition home or self-care (01) ==
PROVIDERS: Emergency Provider Registered Nurse
DX: I16.0 Hypertensive urgency (principal); I13.2 Hypertensive heart and chronic kidney disease with heart failure and with stage 5 chronic kidney disease, or end stage renal disease; N18.6 End stage renal disease; I50.40 Unspecified combined systolic (congestive) and diastolic (congestive) heart failure; Z99.2 Dependence on renal dialysis; I42.9 Cardiomyopathy, unspecified; J43.9 Emphysema, unspecified; D64.9 Anemia, unspecified; Z87.891 Personal history of nicotine dependence; R94.31 Abnormal electrocardiogram [ECG] [EKG]
CPT/HCPCS: 93005; 99283; A9270

== ENCOUNTER 2024-08-12 18:11 | Emergency (ER) | payer MEDICARE, BC, SELFPAY ==
--- NOTE | ~2024-08-12 | XR_ITS ---
EXAMINATION: XR chest 2V Exam Date/Time: 08/12/2024 19:58 CDT HISTORY: R arm pain, chest pain w/u Comparison: 03/10/2024. RESULT: Lines, tubes, and devices: Surgical clips over the upper abdomen. Lungs and pleura: Hyperinflation and diaphragm flattening. Streaky bibasilar opacities. Mild bilater al costophrenic angle blunting. Cardiomediastinal silhouette: Stable. Other: No acute osseous or upper abdominal finding. IMPRESSION: Small bilateral pleural effusions versus chronic pleural blunting. Streaky bibasilar opacities likely representing scar/atelectasis. Severe emphysematous change. Reviewed, dictated and finalized at location K. IMPRESSION: Small bilateral pleural effusions versus chronic pleural blunting. Streaky biba silar opacities likely representing scar/atelectasis. Severe emphysematous [place] ge.
[2024-08-12 18:10] VITALS: BP 150/65; PULSE 94; RESP 16; TEMP 36.8; O2SAT 100
[2024-08-12 18:47] VITALS: BP 169/65; PULSE 84; RESP 16; O2SAT 92
--- OUTSIDE RECORDS SUMMARY | 2024-08-12 19:04 | XMS_ITS | Encounter Summary ---
Author Organization [facility] Healthcare Address [address] [place] [address] Care Team Providers Care Airport Screener Name Role Phone Louisa Anderson MD Unavailable [phone] Juan Luis Fritz MD Unavailable [phone] Joshua Motley MD Unavailable [phone] Addie Moore NP Primary Care Provider [phone] Wily Tolbert RN Unavailable [phone] Encounter Details Date Type Department Care Team (Late st Contact Info) Description 08/01/2024 Results Follow-Up [facility] Primary Care at [address] [address] Addie Moore NP [address] [place] [address] [address] [place] [address] Social History Tobacco Use Types Packs/Day Years Used Date Smoking Tobacco: Former Cigarettes Q uit: 10/01/2020 Smokeless Tobacco: Never Alcohol Use Standard Drinks/Week Comments Yes 0 (1 standard drink = 0.6 oz pur e alcohol) [facility] Utilities Answer Date Recorded In the past 12 months has e electric, gas, oil, or water company threatened to shut off services in your home? No 04/20/2024 Social Connection and Isolat ion Panel [NHANES] Answer Date Recorded In a typical week, how many times do you talk on the phone with family, friends, or neighbors? More than three times a week 04/20/2024 How often do you get togethe r with friends or relatives? More than three times a week 04/20/2024 How often do you attend chur ch or sikhism services? Never 04/20/2024 Do you belong to any clubs o r organizations such as latter-day groups, unions, fraternal or athletic groups, or school groups? No 04/20/2024 How often do you attend meet ings of the clubs or organizations you belong to? Never 04/20/2024 Are you , , di vorced, , never , or living with a partner? 04/20/2024 AUDIT-C Answer Date Recorded Q1: How often do you have a drink containing alcohol? Never 05/19/2022 Q2: How many drinks containi ng alcohol do you have on a typical day when you are drinking? Patient does not drink Q3: How often do you have si x or more drinks on one occasion? Never 05/19/2022 Overall Financial Resource Strain (CARDIA) Answe r Date Recorded How hard is it for you to pa y for the very basics like food, housing, medical care, and heating? Not hard at all 04/20/2024 PHQ-2 Answer Date Recorded PHQ-2 Total Score (If total score is 3 or more points, staff should administer the PHQ-9) 0 05/02/2024 Hunger Vital Sign Answer Date Recorded Within the past 12 months, y ou worried that your food would run out before you got the money to buy more. Never true 04/20/19 25 Within the past 12 months, t he food you bought just didn't last and you didn't have money to get more. Never true 04/20/2024 PRAPARE - Transportation Answer Date Re corded In the past 12 months, has l ack of transportation kept you from medical appointments or from getting medications? No 04/11 In the past 12 months, has l ack of transportation kept you from meetings, work, or from getting things needed for daily living? No 04/20/2024 Housing Stability Vital Sign Answer Naif e Recorded In the last 12 months, was t here a time when you were not able to pay the mortgage or rent on time? No 04/20/2024 In the past 12 months, how m any times have you moved where you were living? 0 04/20/2024 At any time in the past 12 m [facility], were you homeless or living in a fdc (including now)? No 04/20/2024 Personal Safety Answer Date Recorded Getting School Help Needed Denies 04/13 Comments No Sex and Gender Information Value Date Recorded Sex Assigned at Not on file Legal Sex Female 8:21 AM CDT Gender Identity Not on file Sexual Orientation Not on file documented as of this encounter Miscellaneous Notes * Result Encounter Note - Bri Jacobo MA - 08/02/2024 3:46 PM CDT Faxed over to Dr. Motley documented in this encounter Plan of Treatment Not on file documented as of this encounter Visit Diagnoses Not on filedocumented in this encounter Care Teams Airport Screener Relationship Specialty Start Date End Date Addie Moore NP [address] [place] [address] PCP - General Family Medicine 04/14/23 Louisa Anderson MD [address] [place] [address] Consulting Physician Cardiovascular Disease 09/09/21 Juan Luis Fritz MD [address] [place] [address] Consulting Physician Nephrology 09/09/21 Joshua Motley MD [address] [place] [address] Referring Physician Nephrology 02/15/22 Wily Tolbert RN [address] [place] [address] [place] [address] Janitor Head 1/20/25 documented as of this encounter
--- OUTSIDE RECORDS SUMMARY | 2024-08-12 19:04 | XMS_ITS | Continuity of Care Document ---
Author Organization [facility] Address [address] [place] [address] [address] [place] [address] Phone Care Team Providers Care Career Development Facilitator Name Role Phone Zuniga OD, Maykel Unavailable Unavailable Procedures Procedure Date Eye Exam & Treatment Refraction Advance Directives Directive Yes / No Effective Date File Name No Information Encounters Encounter Description Practice Location Reason(s) For Visit Diagnoses Date Provider Providers Copied on Encounter [facility], [address] [place] [address] [address], [place], [place], [id number], [place] tel:[phone] [facility] No Information 6-200 7 Zuniga OD Maykel. [address] , [address], [place], [address], [place]. tel:[phone] Family History Family Member Type Diagnosis Age At Onset No Information Payers Payer name Insurance type Covered democrat ID Authoriza tion(s) BCBS [place] FEP BL [id number] Social History Type Description Quantity Date Captured [...]
--- OUTSIDE RECORDS SUMMARY | 2024-08-12 19:04 | XMS_ITS | CONTINUITY OF CARE DOCUMENT ---
Author Name jeremy luna Address Unknown Organization [facility] Address [address] [place] [address] Phone [phone] Care Team Providers Care Silviculture Teacher Name Role Phone Justin CABRERA, Louisa Menendez Unavailable DALJIT CABRERA, RUNDA Unavailable DALJIT CABRERA, RUNDA Unavailable PROBLEMS Condition Status Date Provider Notes Cardiology examination active Louisa chapa MD CHF - systolic active Louisa Anderson MD HTN essential active Louisa Anderson MD Leg edema active Louisa Anderson MD SARS-associated coronavirus active Louisa Anderson MD SNORING active Louisa Anderson MD End stage renal disease -on dialysis active Louisa Anderson MD CAD active Louisa Anderson MD ENCOUNTERS Date Type Provider Location Encounter Diag nosis - In-person encounter Office Visit Louisa Anderson MD [facility] CAD - In-person encounter Office Visit Louisa Anderson MD [facility] End stage renal disease -on dialysis - In-person encounter Office Visit Louisa Anderson MD [facility] Cardiology examinationCHF - systolicHTN essentialLeg edemaSARS-associated coronavirusSNORING VITAL SIGNS Date Observation Value Provider Body Mass Index (Ratio) 19.08 kg/m2 Jian Anderson MD blood pressure, diastolic 61 mm[Hg] Li nkLogic blood pressure, systolic 154 mm[Hg] Lucy kLogic blood pressure, diastolic 61 mm[Hg] Sa ra Mcmahan blood pressure, systolic 154 mm[Hg] Gay a Mcmahan respiratory rate E&M 16 /min Bettina Si ms oxygen saturation, oximetry 93 % Bettina Mcmahan pulse rate 69 /min Bettina Mcmahan weight E&M 101 [lb_av] Bettina Mcmahan blood pressure, cuff size regular Sa ra Mcmahan height E&M 61 [in_i] Bettina Mcmahan Body Mass Index (Ratio) 19.06 kg/m2 Jian Anderson MD blood pressure, cuff size regular Tr acy Lively blood pressure, diastolic 48 mm[Hg] Tr acy Lively blood pressure, systolic 101 mm[Hg] Tra cy Lively pulse rate 69 /min Morena Lively weight E&M 100.9 [lb_av] Morena Lively height E&M 61 [in_i] Morena Lively oxygen saturation, oximetry 97 % Morena Lively Body Mass Index (Ratio) 20.78 kg/m2 Andr ia Leah blood pressure, cuff size regular Ke rri Gruenenfelder blood pressure, diastolic 77 mm[Hg] Ke rri Gruenenfelder blood pressure, systolic 156 mm[Hg] Ker ri Gruenenfelder oxygen saturation, oximetry 85 % Nimo Kokinfelder respiratory rate E&M 14 /min Nimo G valentinaenenfelder pulse rate 88 /min Nimo Ashu marser weight E&M 110 [lb_av] Nimo Ashu er height E&M 61 [in_i] Nimo Tripathishaq marser ALLERGIES Allergy Name Onset Date Reaction Criticality Status PCN High Criticality active HISTORY OF MEDICATION USE Medication Status Instructions Dates Provider Indications Com ments Brilinta 90 mg tablet active Take 1 tablet by mouth twice a day LAST FILL TILL SEEN IN OFFICE Nimo Margaret Brilinta 90 mg tablet completed TAKE 1 TABLET BY MOUTH TWICE A DAY - Nimo Robles carvedilol 12.5 mg tablet active TAKE 1 TABLET BY MOUTH TWICE A DAY WITH MEALS Sheryl Louis atorvastatin 80 mg tablet active TAKE 1 TABLET BY MOUTH EVERY DAY AT NIGHT [facility] amlodipine 10 mg tablet active TAKE 1 TABLET BY MOUTH EVERY DAY Sheryl Louis pantoprazole 40 mg tablet,delayed release (DR/EC) active TAKE 1 TABLET BY MOUTH EVERY DAY Claudio Nelson MD Brilinta 90 mg tablet completed Take 1 tablet by mouth twice a day - [facility] Plavix 75 mg tablet completed TAKE 1 TABLET BY MOUTH EVERY DAY - Claudio Nelson MD Percocet 5-325 mg tablet active Take 1 tablet by mouth every eight hours as needed for pain Louisa Anderson MD melatonin 3 mg tablet active TAKE 1 TABLET BY MOUTH EVERYDAY AT BEDTIME Casandra Riggs Aspirin Low Dose 81 mg tablet,delayed release (DR/EC) active Take 1 tablet by mouth once a day Casandra Boyer'Rodney atorvastatin 20 mg tablet completed Take 1 tablet by mouth once a day - Sheryl Louis zolpidem 5 mg tablet active Take 1 tablet by mouth at bedtime Casandra Boyer'Rodney hydralazine 25 mg tablet active Take 1 tablet by mouth three times a day Casandra Boyer'Rodney calcitriol 0.25 mcg capsule active Take 1 capsule by mouth once a day Casandra O'Rodney ergocalciferol (vitamin D2) 1,250 mcg (50,000 unit) capsule active Take 1 capsule by mouth once a week Casandra O'Rodney losartan 25 mg tablet completed Take 1 tablet by mouth once a day - Casandra O'Rodney isosorbide mononitrate 30 mg tablet extended release 24 hr active Take 1 tablet by mouth once a day Casandra O'Rodney furosemide 40 mg tablet active Take 1 tablet by mouth twice a day Casandra O'Rodney Entresto 24-26 mg tablet active Take 1 tablet by mouth twice a day Marina Payne RN SOCIAL HISTORY Date Observation Value Provider social history reviewed E&M revi ewed - no changes required Louisa Anderson MD social history E&M S moking History: Senthil gilliland is a former smoker. Louisa Anderson MD smoking status Former smoker Louisa reina MD number of grandchildren Louisa Anderson MD social history reviewed E&M revjyoti ewed - no changes required Louisa Anderson MD social history E&M S moking History: Senthil gilliland is a former smoker. Louisa Anderson MD number of years as a smoker 50 a Nimo Robles smoking history, tot al pack/day 3/4 ppd Nimo Robles smoking, year quit 2020 Nimo olivarez cigarette use yes Nimo Velasco [facility] smoking status Former smoker Nimo bell INSURANCE PROVIDERS Payer name Policy type / Coverage type Dennard red republican ID [facility] Blue [facility] [id number] ADVANCE DIRECTIVES Name Date DISCUSSED - NO DECISION MADE TREATMENT PLAN Date Name Performer [id number],C, B P today: 154/61 P rior BP: 101/48 (09/23/2021) Her updated medication list for this problem includes: Aspirin Low Dose 81 Mg Tablet,delayed Release (/ec) (Aspirin) ..... Take 1 tablet by mouth once a day Hydralazine 25 Mg Tablet (Hydralazine) ..... Take 1 tablet by mouth three times a day Furosemide 40 Mg Tablet (Furosemide) ..... Take 1 tablet by mouth twice a day Louisa Anderson MD [id number],S,U nderwent complex PCI or RCA with Omar Sargent at [facility]. O n aspirin brillinta. Louisa Anderson MD [id number],S,E lectrolytes from dialysis report look good. K 3.5. Sees Dr. Tiesha Anderson MD [id number],C,C ONCLUSIONS: 1 . Normal left ventricular systolic function. Normal left ventricular size. Mild concentric left ventricular hypertrophy. There is E to A wave reversal consistent with impaired LV relaxation. E/E': 8.2 Left ventricular ejection fraction is measured at 55 %. 2 . Normal right ventricular size. Normal right ventricular systolic function. 3 . There is non-specific thickening of the mitral valve leaflets. Mild mitral valve regurgitation. 4 . Mildly thickened aortic valve leaflets. There is trace physiologic aortic valve regurgitation. 5 . There is mild tricuspid regurgitation. IVC is normal in size with normal respiratory response. Estimated peak pulmonary a rtery systolic pressure is 37.0 mmHg. 6 . Normal pulmonic valve velocities by Doppler. There is mild pulmonic regurgitation. Louisa Anderson MD [id number],C, L FEV was 50% on echo on 08/29/21 at [facility]. Will recheck echo since revascularzation H er updated medication list for this problem includes: B rilllinta 90 BID November 20, 2021 E cho most recent shows EF is up to 55%. Louisa Anderson MD [id number],C, S odium restriction and dialysis Louisa Anderson MD [id number],C, H as had multiple admissions has abnormal EKG consistent with prior anterior wall [place] will arrange for lexiscan stress R EMAINS ON DAPT WITH ASA BRILINTA FOR THE ALYSE STENTS WHICH WERE PLACED IN THE RCA 09/02/21 Louisa Anderson MD [id number],C,switched to a Dr Motley for HD Louisa Anderson MD [id number],C, Continue BP med rx currently on entresto, hydralyzine. W ill stop Losartan since she is currently on Entresto BP today: 101/48 P rior BP: 156/77 (05/05/2021) J une 2021 t olerating ientresto and has done well with her BP will contine Louisa Anderson MD [id number],S,See JOVANY Fritz on October 09 Louisa Anderson MD [id number],S, Continue BP med rx currently on entresto, hydralyzine. W ill stop Losartan since she is currently on Entresto BP today: 101/48 P rior BP: 156/77 (05/05/2021) Louisa Anderson MD [id number],S,L FEV was 50% on echo on 08/29/21 at [facility]. Will recheck echo since revascularzation H er updated medication list for this problem includes: B rilllinta 90 BID Aspirin Low Dose 81 Mg Tablet,delayed Release (dr/ec) (Aspirin) ..... Take 1 tablet by mouth once a day Isosorbide Mononitrate 30 Mg Tablet Extended Release 24 Hr (Isosorbide mononitrate) ..... Take 1 tablet by mouth once a day Furosemide 40 Mg Tablet (Furosemide) ..... Take 1 tablet by mouth twice a day Entresto 24-26 Mg Tablet (Sacubitril-valsartan) ..... Take 1 tablet by mouth twice a day Louisa Anderson MD [id number],C,H as had multiple admissions has abnormal EKG consistent with prior anterior wall [place] will arrange for lexiscan stress Louisa Anderson MD [id number],S,Sodium restri ction and diuretics Louisa Anderson MD [id number],C,Vaccinated Sa oscar Anderson MD [id number],C,E F 24% according to her son has a LifeVest. Sodium restriction reviewed. BPs need to be checked at home. She will need to have a cath done if not done already.. Will check echo for EF since she has been on meds will likely need a right and left heart cath prior to getting a defibrillator. Will use lifevest in the meantime. Louisa Anderson MD [id number],C, B P today: 156/77 C ontinue BP med rx currently on entresto, hydralyzine Louisa Anderson MD Cardiology: B P today: 154/61 P rior BP: 101/48 (09/23/2021) Her updated medication list for this problem includes: Aspirin Low Dose 81 Mg Tablet,delayed Release (/ec) (Aspirin) ..... Take 1 tablet by mouth once a day Hydralazine 25 Mg Tablet (Hydralazine) ..... Take 1 tablet by mouth three times a day Furosemide 40 Mg Tablet (Furosemide) ..... Take 1 tablet by mouth twice a day Louisa Anderson MD Cardiology:Underwent complex PCI or RCA with Omar Sargent at [facility]. O n aspirin brillinta. Louisa Anderson MD Cardiology:Electroly ingrid from dialysis report look good. K 3.5. Sees Dr. Tiesha Anderson MD Cardiology:CONCLUSIO NS: 1 . Normal left ventricular systolic function. Normal left ventricular size. Mild concentric left ventricular hypertrophy. There is E to A wave reversal consistent with impaired LV relaxation. E/E': 8.2 Left ventricular ejection fraction is measured at 55 %. 2 . Normal right ventricular size. Normal right ventricular systolic function. 3 . There is non-specific thickening of the mitral valve leaflets. Mild mitral valve regurgitation. 4 . Mildly thickened aortic valve leaflets. There is trace physiologic aortic valve regurgitation. 5 . There is mild tricuspid regurgitation. IVC is normal in size with normal respiratory response. Estimated peak pulmonary a rtery systolic pressure is 37.0 mmHg. 6 . Normal pulmonic valve velocities by Doppler. There is mild pulmonic regurgitation. Louisa Anderson MD Cardiology: L FEV was 50% on echo on 08/29/21 at [facility]. Will recheck echo since revascularzation H er updated medication list for this problem includes: B rilllinta 90 BID November 20, 2021 E cho most recent shows EF is up to 55%. Louisa Anderson MD Telehealth: S odium restriction and dialysis Louisa Anderson MD Telehealth: H as had multiple admissions has abnormal EKG consistent with prior anterior wall [place] will arrange for lexiscan stress R EMAINS ON DAPT WITH ASA BRILINTA FOR THE ALYSE STENTS WHICH WERE PLACED IN THE RCA 09/02/21 Louisa Anderson MD Telehealth:switched to a Dr Elisa fischer for HD Louisa Anderson MD Telehealth: Continue BP med rx currently on entresto, hydralyzine. W ill stop Losartan since she is currently on Entresto BP today: 101/48 P rior BP: 156/77 (05/05/2021) J [facility] 2021 t olerating ientresto and has done well with her BP will contine Louisa Anderson MD Cardiology:See JOVANY Fritz on October 09 Louisa Anderson MD Cardiology: Continue BP med rx currently on entresto, hydralyzine. W ill stop Losartan since she is currently on Entresto BP today: 101/48 P rior BP: 156/77 (05/05/2021) Louisa Anderson MD Cardiology:LFEV was 50% on echo on 08/29/21 at [facility]. Will recheck echo since revascularzation H er updated medication list for this problem includes: B rilllinta 90 BID Aspirin Low Dose 81 Mg Tablet,delayed Release (dr/ec) (Aspirin) ..... Take 1 tablet by mouth once a day Isosorbide Mononitrate 30 Mg Tablet Extended Release 24 Hr (Isosorbide mononitrate) ..... Take 1 tablet by mouth once a day Furosemide 40 Mg Tablet (Furosemide) ..... Take 1 tablet by mouth twice a day Entresto 24-26 Mg Tablet (Sacubitril-valsartan) ..... Take 1 tablet by mouth twice a day Louisa Anderson MD Cardiology:Has had m leticiale admissions has abnormal EKG consistent with prior anterior wall [place] will arrange for lexiscan stress Louisa Anderson MD Cardiology:Sodium restriction an d diuretics Louisa Anderson MD Cardiology:Vaccinated Louisa Anderson MD Cardiology:EF 24% ac cording to her son has a LifeVest. Sodium restriction reviewed. BPs need to be checked at home. She will need to have a cath done if not done already.. Will check echo for EF since she has been on meds will likely need a right and left heart cath prior to getting a defibrillator. Will use lifevest in the meantime. Louisa Anderson MD Cardiology: B P today: 156/77 C ontinue BP med rx currently on entresto, hydralyzine Louisa Anderson MD Date Name Complete Echo Cardiac Cath - L/R- [facility] IRON AND TOTAL IRON BINDING CAPACITY CBC (INCLUDES DIFF/P LT) HEMOGLOBIN A1c PROBNP, N TERMINAL TSH, free T4, total T3 LIPID PANEL COMPREHENSIVE METABO LIC PANEL, W/EGFR Sleep Study Home Stress Regadenoson Complete Echo HISTORY OF PROCEDURES Procedure Date Procedure Name Provider Procedure Notes S tatus EKG Louisa Anderson MD compl eted EKG Louisa Anderson MD compl eted
--- OUTSIDE RECORDS SUMMARY | 2024-08-12 19:04 | XMS_ITS ---
Author Organization [facility] [address] Address [address] [place] [address] Care Team Providers Care Toll Bridge Attendant Name Role Phone Louisa Anderson MD Unavailable Juan Luis Fritz MD Unavailable [phone] Joshua Motley MD Unavailable [phone] Addie Moore NP Primary Care Provider Wily Tolbert RN Unavailable [phone] Dialysis Access Sites Type Status Location Placement Date Removal Da te AV graft Active Left Forearm - Anterior 03/03/2022 Hemodialysis Cath Double 09/04/21 Tunneled catheter Right Internal Jugular Inactive Right Neck (side) - Anterior 09/04/2021 05/19/2022 Hemodialysis Cath Double Inactive Right N alex (side) - Anterior 08/28/2021 09/04/2021 Procedures Procedure Name Priority Date/Time Associated Diagnosis Comments XR CHEST PA LATERAL 2 VIEWS Schedule Routine, Read Routine (OP Routine) 07/30/2024 4:15 PM CDT Acute cough DIFFERENTIAL AUTO Routine 07/30/2024 4:0 3 PM CDT Acute cough CBC WITH AUTO DIFFERENTIAL Routine 07/30/2024 4:03 PM CDT Acute cough PRO B-TYPE NATRIURETIC PEPTIDE Routine 07/30/2024 4:03 PM CDT Chronic combined systolic and diastolic heart failure (HCC) HEPATITIS PANEL, ACUTE STAT 08/29/2021 2:30 PM CDT from Last 3 Months or Most Recently Relevant to Health Maintenance Allergies Active Allergy Reactions Criticality Noted Date Comments Penicillins Rash Medium 11/12/2018 Medications aspirin 81 mg enteric coated tabletIndicatio ns:prevention of thrombosis Take 1 tablet (81 mg total) by mouth daily before breakfast Active ergocalciferol (VITAMIN D) 50,000 unit capsuleIndicati ons:Vitamin D Deficiency Take 1 capsule (50,000 Units total) by mouth once a week Saturdays08/08/19 22 Active oxyBUTYnin (DITROPAN) 5 mg tablet Take 1 tablet (5 mg total) by mouth nightly 04/14/19 24 Active furosemide (LASIX) 40 mg tablet Take 1 tablet (40 mg total) by mouth 2 (two) times a day as needed (swelling) 04/14/19 24 Active lisinopriL (PRINIVIL,ZESTR IL) 20 mg tabletIndicatio ns:started by field appraiser Dr. Motley - 06/01. off entresto Take 1 tablet (20 mg total) by mouth daily 90 tablet 3 06/02/19 24 Active Additional Information Patient taking differently: 40 mgoral Daily, Indications: started by field appraiser Dr. Motley - 06/01. off entresto, Reported on 05/02/2024 ticagrelor (BRILINTA) 90 mg tablet Take 1 tablet (90 mg total) by mouth 2 (two) times a day 60 tablet 11 06/02/19 24 Active atorvastatin (LIPITOR) 80 mg tablet Take 1 tablet (80 mg total) by mouth nightly 90 tablet 3 07/13/19 24 Active isosorbide mononitrate ER (IMDUR) 30 mg 24 hr tabletIndicatio ns:prevention of anginal pain in coronary artery disease Take 1 tablet (30 mg total) by mouth daily before breakfast 90 tablet 3 07/13/19 24 Active NIFEdipine (NIFEdipine CC) 30 mg 24 hr tablet Daily prior to dialysis 90 tablet 1 07/13/19 24 Active Additional Information Patient taking differently: 60 mg, Daily prior to dialysis, Reported on 07/30/2024 carvediloL (COREG) 25 mg tablet Take 1 tablet (25 mg total) by mouth 2 (two) times a day with meals 11/11/19 24 Active inhalational spacing device spacer Use with albuterol inhaler every 4 hours as needed for shortness of breath 1 each 11/16/19 24 Active Additional Information Patient not taking.Reported on 07/30/2024 melatonin tablet TAKE 1 TABLET BY MOUTH NIGHTLY NEEDED FOR SLEEP 90 tablet 2 02/16/20 24 Active albuterol HFA (PROVENTIL HFA,VENTOLIN HFA,PROAIR HFA) 90 mcg/actuation inhaler INHALE 2 PUFFS BY MOUTH EVERY 6 HOURS NEEDED FOR SHORTNESS OF BREATH 8.5 each 1 05/12/19 25 Active traZODone (DESYREL) 50 mg tablet TAKE 1 TABLET BY MOUTH NIGHTLY AT BEDTIME 100 tablet 1 05/27/19 25 Active omeprazole (PriLOSEC) 40 mg capsule TAKE 1 CAPSULE BY MOUTH DAILY BEFORE BREAKFAST 100 capsule 1 05/27/19 25 Active losartan (COZAAR) 25 mg tablet Take 25 mg by mouth daily 2021 Discontinued Active Problems Problem Noted Date Diagnosed Date Medicare annual wellness visit, subsequent 05/02 Assessment & Plan (05/02/2024 9:21 AM REPRODUCER): -Recommended: Healthy diet. Avoiding junk food/fast food. -30 minutes of exercise most days of the week. Increase to 45 minutes for weight loss. Health Maintenance reviewed - updated pneumovax plan today. -Influenza vaccine every year- utd Recommend: - Topic Date Due DTaP/Tdap/Td Vaccine (1 - Tdap) Never done -F/u in 1 year for Annual PE or sooner if needed Assessment & Plan (05/02/2023 10:59 AM REPRODUCER): Patient Counseling: --Nutrition: Stressed importance of moderation in sodium/caffeine intake, saturated fat and cholesterol, caloric balance, sufficient intake of fresh fruits, vegetables, --Exercise: Stressed the importance of regular exercise. --Continue routine dental and vision visits --Immunizations reviewed and offered patient declines at this time -- Discussed benefits of screening colonoscopy.- starting at age 45-50: not indicated -- (females- mammograms offered if applicable/ needed., starting at age 40: not needed today) -Routine labs/ screenings I have reviewed the patient's labs. She brought limited lab results with her from her dialysis. Asked her to bring all lab results with her. I then ordered a lipid panel which I told her they would not do during dialysis.Significant abnormals are Kidney function abnormalities. Centrilobular emphysema 04/14/2023 Overview (04/14/2023): Stopped smoking 2 years ago. Seen on Ct 08/2021 Assessment & Plan (05/02/2024 9:29 AM REPRODUCER): Has albuterol inhaler to use prn. She doesn't use it. Assessment & Plan (11/16/2023 8:38 PM CDT): She was given an inhaler. I added an aerochamber to help her use it prn. I'm not sure if this would have helped her shortness of breath at the time, but she can keep it on hand. Assessment & Plan (10/31/2023 10:02 AM CDT): Stable today. She has not on any current inhalers. She would some sort of episode or exacerbation earlier this month where she ended up in [facility] for 2 days with a COPD exacerbation. She was treated with IV Solu-Medrol and nebulizers. She was given prednisone and Levaquin upon discharge but states that she read side effects and threw away 1 of the prescriptions. I think it was the prednisone but I am not sure. Assessment & Plan (04/14/2023 8:31 PM REPRODUCER): Not currently on any medications. Denies any difficulty with shortness of breath. Not currently a smoker. ESRD on dialysis 02/18/2022 Assessment & Plan (05/02/2024 9:26 AM REPRODUCER): Stable. Continues on dialysis 3 times weekly. Doing well today. States she has some bad days, but doing well Assessment & Plan (10/31/2023 10:01 AM CDT): Stable. Continues on dialysis 3 times weekly. I encouraged her to talk to her field appraiser about the increased swelling in her ankles as well. Assessment & Plan (05/02/2023 11:02 AM REPRODUCER): Continues on dialysis 3 times week. Patient is considering moving to [place]. She is aware she has to set up health care before moving. She is considering moving into assisted living up there. She is currently on a waiting list Assessment & Plan (04/14/2023 8:30 PM REPRODUCER): Currently on dialysis. Dr. Motley. 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 Stable. Blood pressure within normal limits today Assessment & Plan (10/31/2023 10:01 AM CDT): Blood pressure is well controlled today. Condition is stable at this time. She is having more edema in her lower ankles. We talked about the chronic condition of end-stage renal disease and heart failure. Assessment & Plan (07/13/2023 2:46 PM CDT): Blood pressure is looking well today. Confirmed that she needs to stay on all of her medications in order to keep her blood pressure down. I gave her a fresh list of her current blood pressure medications which include carvedilol 12.5 mg furosemide 40 mg b.i.d. p.r.n., hydralazine, isosorbide and lisinopril. Nifedipine prior to dialysis. I will see her back in October Assessment & Plan (06/05/2023 6:05 PM REPRODUCER): Continue all medications. Start lisinopril 20 mg once daily Assessment & Plan (05/02/2023 11:04 AM REPRODUCER): Blood pressure is improved today and is not hypotensive. Will continue current medication and continue to monitor. Assessment & Plan (04/14/2023 8:25 PM REPRODUCER): Apparently long history of hypertension. ON multiple antihypertensive medications and now on dialysis. However, she is also on entresto. Blood pressure is low today. Asymptomatic. Will try discontinuing nifedipine for the hypotension and keep her on all other medication, which we spend a considerable amount of time on reconciling and discussing. I asked her to also run this change by her field appraiser. Will be referring to cardiology as well Chronic combined systolic and diastolic heart fa ilure 10/15/2020 Assessment & Plan (05/02/2024 9:28 AM REPRODUCER): Improved. No signs of acute heart failure. Last echo 04/2023 with EF 72% Assessment & Plan (11/16/2023 8:38 PM CDT): I think she had some fluid overload which may have improved with dialysis, and thus her shortness of breath improved. Her field appraiser also increased her coreg to 25mg bid. I will see her back in April. She may call if any problems/concerns Assessment & Plan (10/31/2023 10:00 AM CDT): We discontinued Entresto in May due to hypotension and intolerance. And after an updated echocardiogram. She is currently on lisinopril 20 mg once daily. We will refer back to Cardiology for evaluation. I would place referral to [facility] back in April but did not see any follow-up or scheduling for that referral Assessment & Plan (06/05/2023 6:05 PM REPRODUCER): Improved. Discontinue Entresto. Start lisinopril 20 mg once daily. We discussed this with her in detail and why we are starting lisinopril and why it is important to stay on all of her other medications. Assessment & Plan (04/14/2023 8:27 PM REPRODUCER): Reviewed last heart cath and last echo done in 08/2021. Echo 08/30: Conclusions: LIMITED STUDY FOR ASSESSMENT OF LV FUNCTION. Normal left ventricular systolic function with no focal wall motion abnormalities. Mild concentric left ventricular hypertrophy. Reduced left ventricular cavity size. Ejection fraction is measured at 50-60 %. Will order repeat echo and refer to cardiology. Currently on entresto. Peripheral vascular disease 10/15/2020 Immunizations Immunization Administration Dates Next Due Covaxin Sars-cov-2 Vaccination 01/20/2021,2020,06/18/2020 Influenza, Quadrivalent, Hig h Dose, Preservative Free, Intrr 01/05/2023,12/23/2021 Influenza, Quadrivalent, Spl it, Intramuscular 01/13/2021 Influenza, Quadrivalent, Spl it, Preservative Free, Intramuscular 01/13/2021 Influenza, Trivalent, High D ose, Split, Preservative Free, Intramuscular 12/18/2023 Influenza, Unspecified 11/14/2012,11/07/2012 Pfizer SARS-CoV-2 Monovalent Vaccination (12+ Yrs) PURPLE 07/09/2020,06/18/2020 Pneumococcal Conjugate Pcv20 05/02/2024 Social History Tobacco Use Types Packs/Day Years Used Date Smoking Tobacco: Former Cigarettes Q uit: 10/01/2020 Smokeless Tobacco: Never Tobacco Cessation:Counseling Given: Not Answered Alcohol Use Standard Drinks/Week Comments Yes 0 (1 standard drink = 0.6 oz pur e alcohol) [employer] Utilities Answer Date Recorded In the past 12 months has [place], gas, oil, or water [employer] threatened to shut off services in your [...] often do you attend chur ch or jewish services? Never 04/20/2024 Do you belong to [...] any time in the past 12 m [facility], were you homeless or living in a prison (including now)? No 04/20/2024 Personal Safety Answer Date Recorded Getting School Help Needed Denies 04/13 Comments No Sex and Gender Information Value Date Recorded Sex Assigned at Not on file Legal Sex Female 8:21 AM CDT Gender Identity Not on file Sexual Orientation Not on file Last Filed Vital Signs Vital Sign Reading Time Taken Comments Blood Pressure 168/74 07/30/2024 3:38 PM CDT Pulse 105 07/30/2024 3:38 PM CDT Temperature 36.5 C (97.7 F) 07/30/2024 3:38 PM CDT Respiratory Rate 18 07/30/2024 3:38 PM CDT Oxygen Saturation 91% 07/30/2024 3:38 PM CDT Inhaled Oxygen Concentration - - Weight 44 kg (96 lb 14.4 oz) 07/30/2024 3:38 PM CDT Height 157.5 cm (5' 2 ) 07/30/2024 3:38 PM CDT Body Mass Index 17.72 07/30/2024 3:38 PM CDT Results * XR Chest Pa Lateral 2 Views (07/30/2024 4:15 PM CDT) Anatomical Region Laterality Modality Body, Chest N/A Digital Radiogra phy 07/31/2024 8:01 PM CDT Narrative 07/31/2024 8:08 PM CDT EXAM DESCRIPTION: XR CHEST PA LATERAL 2 VIEWS REASON FOR STUDY: Pt complains of cough x 1 week. No hx asthma,copd,cancer,heart disease. Former smoker, quit 4 years ago, smoked for 60 years 1 ppd TECHNIQUE: There are 2 radiographic view(s) of the chest. COMPARISON: X-rays 01/24/[address] 08/27/2021 FINDINGS: LUNGS: There is a background of moderate to severe emphysematous change similar to prior exams. Left lung is clear. Again seen is blunting of the right costophrenic angle favoring a mild right pleural effusion. There is adjacent hazy airspace opacity, increased in the interval, atelectasis or infiltrate. HEART/MEDIASTINUM: Senescent change of the aorta. Atherosclerotic change. Stable cardiomegaly. Surgical clips upper abdomen. Sutures. LINES/TUBES: None. BONES: Moderate spondylosis thoracic spine. IMPRESSION: Again seen is a mild right pleural effusion with adjacent airspace opacity, atelectasis or infiltrate. This has increased in the interval. Moderate to severe emphysematous change. Stable cardiomegaly. THIS IS AN ELECTRONICALLY VERIFIED FINAL REPORT 07/31/2024 8:08 PM - Electronically signed by Nico NEGRON T: Report ID: [id number] Reading Location: [id number] Procedure Note Nico Leyva MD - 07/31/2024 EXAM DESCRIPTION: XR CHEST PA LATERAL 2 VIEWS REASON FOR STUDY: Pt complains of cough x 1 week. No hx asthma,copd,cancer,heart disease.Former smoker, quit 4 years ago, smoked for 60 years 1 ppd TECHNIQUE: There are 2 radiographic view(s) of the chest. COMPARISON: X-rays 01/24/[address] 08/27/2021 FINDINGS: LUNGS: There is a background of moderate to severeemphysematous change similar to prior exams. Left lung is clear. Again seen isblunting of the right costophrenic angle favoring a mild right pleural effusion.There is adjacent hazy airspace opacity, increased in the interval, atelectasis or infiltrate. HEART/MEDIASTINUM: Senescent change of the aorta. Atheroscleroticchange. Stable cardiomegaly. Surgical clips upper abdomen. Sutures. LINES/TUBES: None. BONES: Moderate spondylosis thoracic spine. IMPRESSION: Again seen is a mild right pleural effusion with adjacent airspaceopacity, atelectasis or infiltrate. This has increased in the interval. Moderate to severe emphysematous change. Stable cardiomegaly. THIS IS AN ELECTRONICALLY VERIFIED FINAL REPORT 07/31/2024 8:08 PM - Electronically signed by Nico NEGRON T: Report ID: [id number] Reading Location: [place] [address] Addie Moore NP IMG XR PROCEDURES Final Resul t * Differential, auto (07/30/2024 4:03 PM CDT) Neutrophil abs 5.11 1.50 - 6.50 K/cumm Imm gran abs 0.03 0.00 - 0.10 K/cumm [facility] Lymphocyte abs 0.92 0.80 - 3.30 K/cumm [facility] Monocyte abs 0.69 0.20 - 0.80 K/cumm [facility] Eosinophil abs 0.43 0.00 - 0.50 K/cumm [facility] Basophil abs 0.06 0.00 - 0.10 K/cumm [facility] Neutrophil pct 70.7 % [facility] Comment: Interpretive Data Percent cell count reference ranges are not reported, since discordance with absolute values may lead to misinterpretation of CBC data. Current Interpretive Data was last revised on 2017. Imm gran pct 0.4 % [facility] Comment: Interpretive Data Percent cell count reference ranges are not reported, since discordance with absolute values may lead to misinterpretation of CBC data. Current Interpretive Data was last revised on 2017. Lymphocyte pct 12.7 % [facility] Comment: Interpretive Data Percent cell count reference ranges are not reported, since discordance with absolute values may lead to misinterpretation of CBC data. Current Interpretive Data was last revised on 2017. Monocyte pct 9.5 % [facility] Comment: Interpretive Data Percent cell count reference ranges are not reported, since discordance with absolute values may lead to misinterpretation of CBC data. Current Interpretive Data was last revised on 2017. Eosinophil pct 5.9 % [facility] Comment: Interpretive Data Percent cell count reference ranges are not reported, since discordance with absolute values may lead to misinterpretation of CBC data. Current Interpretive Data was last revised on 2017. Basophil pct 0.8 % [facility] Comment: Interpretive Data Percent cell count reference ranges are not reported, since discordance with absolute values may lead to misinterpretation of CBC data. Current Interpretive Data was last revised on 2017. Blood 07/30/2024 4:03 PM CDT 07/30/2024 9:13 PM CDT us Addie Moore NP LAB BLOOD ORDERABLES Final Re sult [facility] [id number] Department [place] [address] * (ABNORMAL) Pro B-type natriuretic peptide (07/30/2024 4:03 PM CDT) NT-proBNP 15,526(H) <=450 pg/mL Comment: Interpretive Comments: A. Dyspnea in Acute Care Setting All Ages: < 300 pg/ml, acute heart failure unlikely. < 50 yrs: 300 - 450 pg/ml, further investigation warranted. > 450 pg/ml, acute heart failure likely. 50 - 74 yrs: 300 - 900 pg/ml, further investigation warranted. > 900 pg/ml, acute heart failure likely . > or = 75 yrs: 450 - 1800 pg/ml, further investigation warranted. > 1800 pg/ml, acute heart failure likely. B. Non-acute Setting < 75 yrs < 125 pg/ml, rules out heart failure. > or = 125 pg/ml, further investigation warranted. > or = 75 yrs < 450 pg/ml, rules out heart failure. > or = 450 pg/ml, further investigation warranted. - Knowledge of each individual patient's NT-proBNP range may be more useful than using similar cut-points for every patient. Please note that marked elevations in NT-proBNP levels may be observed in state other than Left Ventricular Congestive Failure, including: acute coronary syndromes, right heart strain/failure (including pulmonary embolism and cor pulmonale), critical illness, renal failure, as well as advanced age. - References: 1. Tyrone MCINTYRE et.al. Eur Heart J. 2006:27:330-337. 2. Daisha RW, Jami AM. J. AM Darnell Cardiol: Cardiovasc Imag. 2009;2: 216- 225. Interpretive Data Last Revised Date: 2017. Blood 07/30/2024 4:03 PM CDT 07/30/2024 9:13 PM CDT Addie Moore NP LAB BLOOD ORDERABLES Final Re sult [facility] [id number] Department [place] [address] * (ABNORMAL) CBC with auto differential (07/30/2024 4:03 PM CDT) Pathologist [facility] WBC 7.24 3.80 - 9.90 K/cumm Hgb 13.9 11.9 - 15.5 g/dL [facility] Hct 40.6 35.6 - 45.5 % [facility] Plt 196 150 - 400 K/cumm [facility] MPV 9.3 9.1 - 12.3 fL [facility] RBC 5.01 3.90 - 5.20 M/cumm [facility] MCV 81.0(L) 81.3 - 96.4 fL [facility] MCH 27.7 27.1 - 33.3 pg [facility] MCHC 34.2 32.3 - 35.7 g/dL [facility] RDW CV 17.5(H) 11.1 - 14.9 % [facility] RDW SD 51.3(H) 35.7 - 48.1 fL [facility] NRBC abs 0.00 0.00 - 0.01 K/cumm [facility] Blood 07/30/2024 4:03 PM CDT 07/30/2024 9:13 PM CDT Addie Moore NP LAB BLOOD ORDERABLES Final Re sult [facility] [id number] [address] Department [place] [address] * Hepatitis panel, acute (08/29/2021 2:30 PM CDT) Hep A IgM Nonreactive Nonreactive [facility] Comment: Interpretive Data: If Hep A IgM Ab is reported as Equivocal, a new sample should be drawn in two weeks for testing. Current interpretive data was last revised on 19. Hep B core IgM Nonreactive Nonreactive [facility] Comment: Interpretive Data If HepB Core IgM Ab is reported as Equivocal, a new sample should be drawn in two weeks for testing. Current interpretive data was last revised on 19. Hep C Ab Nonreactive Nonreactive [facility] Comment: Interpretive Data Nonreactive: Antibodies to HCV not detected. Does NOT exclude the possibility of recent exposure to HCV. Equivocal: Equivocal for HCV antibodies. Supplemental molecular testing will be automatically performed to determine infection status in accordance with current CDC screening recommendations. Reactive: Positive for HCV antibodies. This may represent current or past HCV infection. Supplemental molecular testing will be automatically performed to determine current infection status in accordance with current CDC screening recommendations. Interpretive data was last revised on 2019. HepBsAg Nonreactive Nonreactive [facility] Blood 08/29/2021 2:30 PM CDT 08/29/2021 2:36 PM CDT us Juan Luis Fritz MD LAB MICROBIOLOGY - GENERAL ORD ERABLES Final Result [facility] [id number] [address] Department [place] [address] from Last 3 Months or Most Recently Relevant to Health Maintenance
--- OUTSIDE RECORDS SUMMARY | 2024-08-12 19:04 | XMS_ITS | Referral Summary ---
Author Organization [facility] [address] Address [address] [place] [address] Care Team Providers Care Newscast Director Name Role Phone Louisa Anderson MD Unavailable Juan Luis Fritz MD Unavailable Joshua Motley MD Unavailable [phone] Addie Moore [employer] Primary Care Provider Wily Tolbert RN Unavailable [phone] Encounters Date Type Department Care Team Description 08/01/2024 Results Follow-Up [facility] Primary Care at [address] [phone] Addie Moore NP 07/31/2024 Results Follow-Up [facility] Primary Care at [address] [phone] Addie Moore NP 07/30/2024 4:03 PM CDT - 07/30/2024 11:59 PM CDT Hospital Encounter [address] [address] Chronic combined systolic and diastolic heart failure (HCC); Acute cough Discharge Disposition: Discharge to home or self care 07/30/2024 4:20 PM CDT Ancillary Procedure [facility] Imaging at [address] [phone] Acute cough 07/30/2024 4:00 PM CDT Lab [facility] Outpatient Lab at [address] [phone] 07/30/2024 3:30 PM CDT Office Visit 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 Motley - 06/01. off entresto Take 1 tablet (20 mg total) by mouth daily 90 tablet 3 06/02/19 24 Active Additional Information Patient taking differently: 40 mgoral Daily, Indications: started by deicer tester Dr. Motley - 06/01. off entresto, Reported [...] 05/02 Assessment & Plan (05/02/2024 9:21 AM SENIOR DATASTAGE DEVELOPER): -Recommended: Healthy diet. Avoiding junk food/fast food. [...] needed Assessment & Plan (05/02/2023 10:59 AM SENIOR DATASTAGE DEVELOPER): Patient Counseling: --Nutrition: Stressed importance of moderation [...] 08/2021 Assessment & Plan (05/02/2024 9:29 AM SENIOR DATASTAGE DEVELOPER): Has albuterol inhaler to use prn. She [...] this month where she ended up in [facility] for 2 days with a COPD exacerbation. She was treated with IV Solu-Medrol and nebulizers. She was given prednisone and Levaquin upon discharge but states that she read side effects and threw away 1 of the prescriptions. I think it was the prednisone but I am not sure. Assessment & Plan (04/14/2023 8:31 PM SENIOR DATASTAGE DEVELOPER): Not currently on any medications. Denies any difficulty with shortness of breath. Not currently a smoker. ESRD on dialysis 02/18/2022 Assessment & Plan (05/02/2024 9:26 AM SENIOR DATASTAGE DEVELOPER): Stable. Continues on dialysis 3 times weekly. Doing well today. States she has some bad days, but doing well Assessment & Plan (10/31/2023 10:01 AM CDT): Stable. Continues on dialysis 3 times weekly. I encouraged her to talk to her deicer tester about the increased swelling in her ankles as well. Assessment & Plan (05/02/2023 11:02 AM SENIOR DATASTAGE DEVELOPER): Continues on dialysis 3 times week. Patient is considering moving to [place]. She is aware she has to set up health care before moving. She is considering moving into assisted living up there. She is currently on a waiting list Assessment & Plan (04/14/2023 8:30 PM SENIOR DATASTAGE DEVELOPER): Currently on dialysis. Dr. Motley. Hypertension due to end stage renal disease on d ialysis 02/11/2021 Assessment & Plan (05/02/2024 9:29 AM SENIOR DATASTAGE DEVELOPER): Managed by nephrology. Stable. Blood pressure within [...] October Assessment & Plan (06/05/2023 6:05 PM SENIOR DATASTAGE DEVELOPER): Continue all medications. Start lisinopril 20 mg once daily Assessment & Plan (05/02/2023 11:04 AM SENIOR DATASTAGE DEVELOPER): Blood pressure is improved today and is not hypotensive. Will continue current medication and continue to monitor. Assessment & Plan (04/14/2023 8:25 PM SENIOR DATASTAGE DEVELOPER): Apparently long history of hypertension. ON multiple antihypertensive medications and now on dialysis. However, she is also on entresto. Blood pressure is low today. Asymptomatic. Will try discontinuing nifedipine for the hypotension and keep her on all other medication, which we spend a considerable amount of time on reconciling and discussing. I asked her to also run this change by her deicer tester. Will be referring to cardiology as well Chronic combined systolic and diastolic heart fa ilure 10/15/2020 Assessment & Plan (05/02/2024 9:28 AM SENIOR DATASTAGE DEVELOPER): Improved. No signs of acute heart failure. Last echo 04/2023 with EF 72% Assessment & Plan (11/16/2023 8:38 PM CDT): I think she had some fluid overload which may have improved with dialysis, and thus her shortness of breath improved. Her deicer tester also increased her coreg to 25mg bid. [...] for evaluation. I would place referral to [facility] back in April but did not see any follow-up or scheduling for that referral Assessment & Plan (06/05/2023 6:05 PM SENIOR DATASTAGE DEVELOPER): Improved. Discontinue Entresto. Start lisinopril 20 mg once daily. We discussed this with her in detail and why we are starting lisinopril and why it is important to stay on all of her other medications. Assessment & Plan (04/14/2023 8:27 PM SENIOR DATASTAGE DEVELOPER): Reviewed last heart cath and last echo done in 08/2021. Echo 08/30: Conclusions: LIMITED STUDY FOR ASSESSMENT OF LV FUNCTION. Normal left ventricular systolic function with no focal wall motion abnormalities. Mild concentric left ventricular hypertrophy. Reduced left ventricular cavity size. Ejection fraction is measured at 50-60 %. Will order repeat echo and refer to cardiology. Currently on entresto. Peripheral vascular disease 10/15/2020 Resolved Problems Problem Noted Date Diagnosed Date Resolved Date Hospital discharge follow-up 03/20/2024 05/02/2024 Assessment & Plan (03/20/2024 7:31 AM SENIOR DATASTAGE DEVELOPER): Medication review done. Patient discharge instructions from [place] show her still on atorvastatin 80mg and brilinta 90mg. However, patient has a plain list printed from nephrology that do not include the atorvastatin and brilinta and she states she has been following that list and has not been taking the atrovastatin or the brilinta and she has been feeling well and doesn't want to change her medications. She asks me to reach out to Dr. Motley before she will add any more medications. Will try to reach Dr. Motley or his office , nephrology at [facility] to discuss med rec. Headache 04/27/2023 05/02/2024 Moderate malnutrition 09/03/20212023 Leg edema 05/05/2021 05/02/2024 Recurrent pleural effusion on right 02/11/2021 04/14/2023 Ischemic cardiomyopathy 10/15/202005/13 Assessment & Plan (05/02/2023 11:05 AM SENIOR DATASTAGE DEVELOPER): History of ischeic cardiomyopathy. We had ordered a repeat echocardiography at last office visit. She now has it scheduled at [place] Cardiovascular stress test abnormal 10/15/2020 05/02/2024 Chronic kidney disease 10/15/202004/14 Immunizations Immunization Administration Dates Next Due Covaxin [...] drink = 0.6 oz pur e alcohol) [facility] Informed Tradesities Answer Date Recorded In the past 12 months has [employer], [address], oil, or water [employer] threatened to shut off services in your [...] 04/20/2024 How often do you attend chur or quaker services? Never 04/20/2024 Do you belong to any clubs o r organizations such as lutheran groups, unions, fraternal or athletic groups, or [...] any time in the past 12 [facility], were you homeless or living in a jail (including now)? No 04/20/2024 Personal Safety Answer [...] Mass Index 17.72 07/30/2024 3:38 PM CDT Plan of Treatment Not on file Medical Devices Implanted Type Area Clerical Aide Teacher Device Identifier Shelf Expiration Date Model / Serial / Lot [employer] Exeter Intering 4-7mm 45cm 38cm Radial Support Stretch Line [id number] - [id number] - [id number] Implanted:Qty: 1 on 03/03/2022 by David Drummond MD at [facility] Graft Left: Arm Wl [employer] [id number] 05/11/2026 [id number] / [id number] / Description:AV fistula graft [employer] Synergy Xd Monorail 3mm 12mm 144cm Delivery System 1 Access Port [id number] - [id number] Implanted:Qty: 1 on 09/02/2021 by Claudio Nelson MD at [facility] Stent [employer] [id number] / / [employer] Synergy Xd 3.5mm 48mm System Coronary Stent Everolimus [id number] - [id number] Implanted:Qty: 1 on 09/02/2021 by Claudio Nelson MD at [facility] Stent [employer] [id number] / / Description:Mid RCA [employer] Synergy Xd Monorail 3mm 38mm 144cm Delivery System 1 Access Port [id number] - [id number] Implanted:Qty: 1 on 09/02/2021 by Claudio Nelson MD at [facility] Stent [employer] [id number] / / Description:Distal RCA betwe en stents [employer] Synergy Xd Monorail 3.5mm 12mm 144cm Delivery System 1 Access [id number] - [id number] Implanted:Qty: 1 on 09/02/2021 by Claudio Nelson MD at [facility] Stent [employer] [id number] / / [employer] Duramax Vascpak Safesheath D-Pro 15.5fr 24cm Kit Catheter [id number] - [id number] Implanted:Qty: 1 on 09/04/2021 at [facility] [employer] 09/09/2023 [id number] / / [id number] Procedures Procedure Name Priority Date/Time Associated Diagnosis [...] or Most Recently Relevant to Health Maintenance Results * XR Chest Pa Lateral 2 [...] signed by Nico NEGRON T: Report ID: [id number] Reading Location: [id number] Procedure Note Nico Leyva MD - 07/31/2024 [...] signed by Nico NEGRON T: Report ID: [id number] Reading Location: [id number] Addie Moore NP IMG XR PROCEDURES Final Resul t * Differential, auto (07/30/2024 4:03 PM CDT) Neutrophil abs 5.11 1.50 - 6.50 K/cumm Imm gran abs 0.03 0.00 - 0.10 K/cumm [facility] Lymphocyte abs 0.92 0.80 - 3.30 K[facility]cumm [facility] Monocyte abs 0.69 0.20 - 0.80 K/cumm [facility] Eosinophil abs 0.43 0.00 - 0.50 K/cumm [facility] Basophil abs 0.06 0.00 - 0.10 K/cumm [facility] Neutrophil pct 70.7 % [facility] Comment: Interpretive Data Percent cell count reference ranges are not reported, since discordance with absolute values may lead to misinterpretation of CBC data. Current Interpretive Data was last revised on 2017. Imm gran pct 0.4 % [facility] Comment: Interpretive Data Percent cell count reference ranges are not reported, since discordance with absolute values may lead to misinterpretation of CBC data. Current Interpretive Data was last revised on 2017. Lymphocyte pct 12.7 % [facility] Comment: Interpretive Data Percent cell count reference ranges are not reported, since discordance with absolute values may lead to misinterpretation of CBC data. Current Interpretive Data was last revised on 2017. Monocyte pct 9.5 % [facility] Comment: Interpretive Data Percent cell count reference ranges are not reported, since discordance with absolute values may lead to misinterpretation of CBC data. Current Interpretive Data was last revised on 2017. Eosinophil pct 5.9 % [facility] Comment: Interpretive Data Percent cell count reference ranges are not reported, since discordance with absolute values may lead to misinterpretation of CBC data. Current Interpretive Data was last revised on 2017. Basophil pct 0.8 % [facility] Comment: Interpretive Data Percent cell count reference ranges are not reported, since discordance with absolute values may lead to misinterpretation of CBC data. Current Interpretive Data was last revised on 2017. Blood 07/30/2024 4:03 PM CDT 07/30/2024 9:13 PM CDT Addie Moore NP LAB BLOOD ORDERABLES Final Re sult Performing Organization Address [facility] de Phone Number DOLORES BETH [phone] [address] Department [place] [address] * (ABNORMAL) Pro B-type natriuretic peptide (07/30/2024 [...] Heart J. 2006:27:330-337. 2. Daisha RW, Jami HARRISON. J. AM Darnell Cardiol: Cardiovasc Imag. 2009;2: 216- 225. Interpretive Data Last Revised Date: 2017. Blood 07/30/2024 4:03 PM CDT 07/30/2024 9:13 PM CDT Addie Moore NP LAB BLOOD ORDERABLES Final Re sult Performing Organization Address [facility] Co de Phone Number DOLORES BETH [phone] [address] Department [place] [address] * (ABNORMAL) CBC with auto differential (07/30/2024 4:03 PM CDT) [facility] WBC 7.24 3.80 - 9.90 K/cumm Hgb 13.9 11.9 - 15.5 g/dL [facility] Hct 40.6 35.6 - 45.5 % [facility] Plt 196 150 - 400 K/cumm [facility] MPV 9.3 9.1 - 12.3 fL [facility] RBC 5.01 3.90 - 5.20 M/cumm [facility] MCV 81.0(L) 81.3 - 96.4 fL [facility] MCH 27.7 27.1 - 33.3 pg [facility] MCHC 34.2 32.3 - 35.7 g/dL [facility] RDW CV 17.5(H) 11.1 - 14.9 % [facility] RDW SD 51.3(H) 35.7 - 48.1 fL [facility] NRBC abs 0.00 0.00 - 0.01 K/cumm [facility] Blood 07/30/2024 4:03 PM CDT 07/30/2024 9:13 PM CDT Addie Moore NP LAB BLOOD ORDERABLES Final Re sult DOLORES BETH [address] [address] Department of Laboratories [place], [place] [id number] * Hepatitis panel, acute (08/29/2021 2:30 PM CDT) [facility] Hep A IgM Nonreactive Nonreactive [facility] Comment: Interpretive Data: If Hep A IgM Ab is reported as Equivocal, a new sample should be drawn in two weeks for testing. Current interpretive data was last revised on 19. Hep B core IgM Nonreactive Nonreactive [facility] Comment: Interpretive Data If HepB Core IgM Ab is reported as Equivocal, a new sample should be drawn in two weeks for testing. Current interpretive data was last revised on 20. Hep C Ab Nonreactive Nonreactive [facility] Comment: Interpretive Data Nonreactive: Antibodies to HCV [...] revised on 2019. HepBsAg Nonreactive Nonreactive DOLORES Blood 08/29/2021 2:30 PM CDT 08/29/2021 2:36 PM CDT Juan Luis Fritz MD LAB MICROBIOLOGY - GENERAL ORD ERABLES Final Result DOLORES [phone] [address] Department [place] [address] from Last 3 Months or Most Recently Relevant to Health Maintenance Insurance [facility] [employer] MEDICARE [facility] [employer] Advance Directives For more information, please contact: [phone] * Full Code (Latest Code Status on File) Date Activated Date Inactivated Comments 05/19/2022 9:36 AM 05/20/2022 5:19 AM * Full Code Date Activated Date Inactivated Comments 08/25/2021 9:12 PM 09/09/2021 6:36 PM Healthcare Agents on File Name Relationship Healthcare Agent Relationshi p Communication Al Tiffany Mckeon Health Care Agent Care Teams Newscast Director Relationship Specialty Start Date End Date Addie Moore NP [address] [place] [address] PCP - General Family Medicine 04/14/23 Louisa Anderson MD [address] [place] [address] Consulting Physician Cardiovascular Disease 09/09/21 Juan Luis Fritz MD [address] [place] [address] Consulting Physician Nephrology 09/09/21 Joshua Motley MD [address] [place] [address] Referring Physician Nephrology 02/15/22 Wily Tolbert RN [address] [place] [address] [place] [address] Director Of Group Counseling Program 04/30/24
--- OUTSIDE RECORDS SUMMARY | 2024-08-12 19:04 | XMS_ITS | Clinical Summary ---
Author Organization [facility] [place] [address] Address [address] [place] [address] Care Team Providers Care Condenser Operator Name Role Phone Louisa Anderson MD Unavailable Juan Luis Fritz MD Unavailable [phone] Joshua Motley MD Unavailable [phone] Addie Moore NP Primary Care Provider [phone] Wily Tolbert RN Unavailable [phone] Allergies Active Allergy Reactions Criticality Noted Date [...] (PRINIVIL,ZESTR IL) 20 mg tabletIndicatio ns:started by workers compensation coordinator Dr. Motley - 06/01. off entresto Take 1 tablet (20 mg total) by mouth daily 90 tablet 3 06/02/19 24 Active Additional Information Patient taking differently: 40 mgoral Daily, Indications: started by workers compensation coordinator Dr. Motley - 06/01. off entresto, Reported [...] NEEDED FOR SHORTNESS OF BREATH 8.5 each 05/12/19 25 Active traZODone (DESYREL) 50 mg tablet TAKE 1 TABLET BY MOUTH NIGHTLY AT BEDTIME 100 tablet 05/27/19 25 Active omeprazole (PriLOSEC) 40 mg capsule TAKE 1 CAPSULE BY MOUTH DAILY BEFORE BREAKFAST 100 capsule 05/27/19 25 Active losartan (COZAAR) 25 mg tablet Take 25 mg by mouth daily 2021 Discontinued Active Problems Problem Noted Date Diagnosed Date Medicare annual wellness visit, subsequent 05/02 Assessment & Plan (05/02/2024 9:21 AM CIGARETTE MACHINE OPERATOR): -Recommended: Healthy diet. Avoiding junk food/fast food. [...] needed Assessment & Plan (05/02/2023 10:59 AM CIGARETTE MACHINE OPERATOR): Patient Counseling: --Nutrition: Stressed importance of moderation [...] 08/2021 Assessment & Plan (05/02/2024 9:29 AM CIGARETTE MACHINE OPERATOR): Has albuterol inhaler to use prn. She [...] this month where she ended up in [facility] for 2 days with a COPD exacerbation. She was treated with IV Solu-Medrol and nebulizers. She was given prednisone and Levaquin upon discharge but states that she read side effects and threw away 1 of the prescriptions. I think it was the prednisone but I am not sure. Assessment & Plan (04/14/2023 8:31 PM CIGARETTE MACHINE OPERATOR): Not currently on any medications. Denies any difficulty with shortness of breath. Not currently a smoker. ESRD on dialysis 02/18/2022 Assessment & Plan (05/02/2024 9:26 AM CIGARETTE MACHINE OPERATOR): Stable. Continues on dialysis 3 times weekly. Doing well today. States she has some bad days, but doing well Assessment & Plan (10/31/2023 10:01 AM CDT): Stable. Continues on dialysis 3 times weekly. I encouraged her to talk to her workers compensation coordinator about the increased swelling in her ankles as well. Assessment & Plan (05/02/2023 11:02 AM CIGARETTE MACHINE OPERATOR): Continues on dialysis 3 times week. Patient is considering moving to [place]. She is aware she has to set up health care before moving. She is considering moving into assisted living up there. She is currently on a waiting list Assessment & Plan (04/14/2023 8:30 PM CIGARETTE MACHINE OPERATOR): Currently on dialysis. Dr. Motley. 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 Stable. Blood pressure within [...] October Assessment & Plan (06/05/2023 6:05 PM CIGARETTE MACHINE OPERATOR): Continue all medications. Start lisinopril 20 mg once daily Assessment & Plan (05/02/2023 11:04 AM CIGARETTE MACHINE OPERATOR): Blood pressure is improved today and is not hypotensive. Will continue current medication and continue to monitor. Assessment & Plan (04/14/2023 8:25 PM CIGARETTE MACHINE OPERATOR): Apparently long history of hypertension. ON multiple antihypertensive medications and now on dialysis. However, she is also on entresto. Blood pressure is low today. Asymptomatic. Will try discontinuing nifedipine for the hypotension and keep her on all other medication, which we spend a considerable amount of time on reconciling and discussing. I asked her to also run this change by her workers compensation coordinator. 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 No signs of acute heart failure. Last echo 04/2023 with EF 72% Assessment & Plan (11/16/2023 8:38 PM CDT): I think she had some fluid overload which may have improved with dialysis, and thus her shortness of breath improved. Her workers compensation coordinator also increased her coreg to 25mg bid. [...] for evaluation. I would place referral to [facility] back in April but did not see any follow-up or scheduling for that referral Assessment & Plan (06/05/2023 6:05 PM CIGARETTE MACHINE OPERATOR): Improved. Discontinue Entresto. Start lisinopril 20 mg once daily. We discussed this with her in detail and why we are starting lisinopril and why it is important to stay on all of her other medications. Assessment & Plan (04/14/2023 8:27 PM CIGARETTE MACHINE OPERATOR): Reviewed last heart cath and last echo [...] 05/02/2024 Assessment & Plan (03/20/2024 7:31 AM CIGARETTE MACHINE OPERATOR): Medication review done. Patient discharge instructions from [facility] show her still on atorvastatin 80mg and [...] Motley or his office , nephrology at [facility] to discuss med rec. Headache 04/27/2023 05/02/2024 Moderate malnutrition 09/03/20212023 Leg edema 05/05/2021 05/02/2024 Recurrent pleural effusion on right 02/11/2021 04/14/2023 Ischemic cardiomyopathy 10/15/2020 02/2 05/2023 Assessment & Plan (05/02/2023 11:05 AM CIGARETTE MACHINE OPERATOR): History of ischeic cardiomyopathy. We had ordered a repeat echocardiography at last office visit. She now has it scheduled at [facility] Cardiovascular stress test abnormal 10/15/2020 05/02/2024 Chronic kidney disease 10/15/202004/14 Encounters Date Type Department Care Team Description 08/01/2024 Results Follow-Up [facility] Primary Care at [address] [address] Addie Moore NP 07/31/2024 Results Follow-Up [facility] Primary Care at [address] [address] Addie Moore NP 07/30/2024 4:20 PM CDT Ancillary Procedure [facility] Imaging at [address] [address] Acute cough 07/30/2024 4:03 PM CDT - 07/30/2024 11:59 PM CDT Hospital Encounter [place] [id number] Chronic combined systolic and diastolic heart failure (HCC); Acute cough Discharge Disposition: Discharge to home or self care 07/30/2024 4:00 PM CDT Lab [facility] Outpatient Lab at [address] [address] 07/30/2024 3:30 PM CDT Office Visit [facility] Primary Care at [address] [address] Addie Moore NP ESRD on dialysis (HCC) (Primary Dx); Hypertension due to end stage renal disease on dialysis (HCC); Chronic combined systolic and diastolic heart failure (HCC); Acute cough from Last 3 Months Immunizations Immunization Administration Dates Next Due Covaxin Sars-cov-2 Vaccination 01/20/2021,2020,06/18/2020 Influenza, Quadrivalent, Hig h Dose, Preservative Free, Intrr 01/05/2023,12/23/2021 Influenza, Quadrivalent, Spl it, Intramuscular 01/13/2021 Influenza, Quadrivalent, Spl it, Preservative Free, Intramuscular 01/13/2021 Influenza, Trivalent, High D ose, Split, Preservative Free, Intramuscular 12/18/2023 Influenza, Unspecified 11/14/2012,11/07/2012 Pfizer SARS-CoV-2 Monovalent Vaccination (12+ Yrs) PURPLE 07/09/2020,06/18/2020 Pneumococcal Conjugate Pcv20 05/02/2024 Surgical History Surgery Date Site/Laterality Comments ABDOMINAL AORTA STENT CENTRAL LINE PLACEMENT > 5 YEARS 08/28/2021 N/A TUNNELED LINE PLACEMENT > 5 YEARS 09/04/2021 N/A CARDIAC STENT PLACEMENT 08/09/2021 - 09/08/2021 REMOVE TUNNELED LINE 05/19/2022 Left Medical History Medical History Date Comments HTN (hypertension) Acute renal failure (ARF) COPD (chronic obstructive pulmonary disease) (HC C) CHF (congestive heart failure) (HCC) Hemodialysis patient stacey, zac , sat Recurrent pleural effusion on right 02/11/2021 Family History Medical History Relation Name Comments Alzheimer's disease Mother Relation Name Status Comments Father (Age 70's) Mother (Age 80's) Social History Tobacco Use Types Packs/Day Years Used Date Smoking Tobacco: Former Cigarettes Q uit: 10/01/2020 Smokeless Tobacco: Never Tobacco Cessation:Counseling Given: Not Answered Alcohol Use Standard Drinks/Week Comments Yes 0 (1 standard drink = 0.6 oz pur e alcohol) [facility] Utilities Answer Date Recorded In the past 12 months has th e [employer], oil, or water [employer] threatened to shut off services in your [...] week 04/20/2024 How often do you attend [facility] or christian services? Never 04/20/2024 Do you belong to any clubs o r organizations such as christian groups, unions, fraternal or athletic groups, or [...] any time in the past [address] [facility], were you homeless or living in a senior living (including now)? No 04/20/2024 Personal Safety Answer Date Recorded Getting School Help Needed Denies 04/13 Comments No Sex and Gender Information Value Date Recorded Sex Assigned at Not on file Legal Sex Female 8:21 AM CDT Gender Identity Not on file Sexual Orientation Not on file Obstetrics History Last Filed Vital Signs Vital Sign Reading [...] 07/30/2024 3:38 PM CDT Plan of Treatment Health Maintenance Due Date Last Done Comments DTaP/Tdap/Td Vaccine (1 - Tdap) 01/01/1957 Zoster Vaccine (1 of 2) 1994 Covid-19 Vaccine ( season) 2024 12/18/2023, 01/05/2023, 12/23/2021, Additional history exists Depression Screening 05/02/2025 05/02/2024, 11/16/2023, 10/31/2023, Additional history exists Fall Risk Assessment 05/02/2025 05/02/2024, 11/16/2023, 10/31/2023, Additional history exists Osteoporosis Screening-Bone Density Scan 05/02/2025 Postponed from 1944 (Patient declined, but will receive in the future) Well Visit 65+ 05/02/2025 05/02/2024, 04/27/2023 Hepatitis C Screening Completed 08/29/2021 Hepatitis B Screening Completed 09/04/2021 Influenza Vaccine Completed 12/18/2023, , 12/23/2021, Additional history exists Pneumococcal vaccine 65+ Completed 05/02/2024 Medical Devices Implanted Type Area Slicing Machine Operator Device Identifier Shelf Expiration Date Model / Serial / Lot Wl [employer] [place] Intering 4-7mm 45cm 38cm Radial Support Stretch Line [id number] - [id number] - [id number] Implanted:Qty: 1 on 03/03/2022 by David Drummond MD at [facility] Graft Left: Arm [employer] [id number] 05/11/2026 [id number] / [id number] / Description:AV fistula graft Register Scientific Indra Synergy Xd Monorail 3mm 12mm 144cm Delivery System 1 Access Port [id number] - [id number] Implanted:Qty: 1 on 09/02/2021 by Claudio Nelson MD at [facility] Stent Register [employer] Indra [id number] / / Register [employer] Indra Synergy Xd 3.5mm 48mm System Coronary Stent Everolimus [id number] - [id number] Implanted:Qty: 1 on 09/02/2021 by Claudoi Nelson MD at [facility] Stent [employer] Indra [id number] / / Description:Mid RCA Register [employer] Indra Synergy Xd Monorail 3mm 38mm 144cm Delivery System 1 Access Port [id number] - [id number] Implanted:Qty: 1 on 09/02/2021 by Claudio Nelson MD at [facility] Stent [employer] Indra [id number] / / Description:Distal RCA betwe en stents Register [employer] Indra Synergy Xd Monorail 3.5mm 12mm 144cm Delivery System 1 Access [id number] - [id number] Implanted:Qty: 1 on 09/02/2021 by Claudio Nelson MD at [facility] Stent Register [employer] Indra [id number] / / Angio Dynamics Duramax Vascpak Safesheath D-Pro 15.5fr 24cm Kit Catheter [id number] - [id number] Implanted:Qty: 1 on 09/04/2021 at [facility] Angio Dynamics 09/09/2023 [id number] / / [id number] Procedures Procedure Name Priority Date/Time Associated Diagnosis [...] signed by Nico NEGRON T: Report ID: [id number] Reading Location: [id number] Procedure Note Nico Leyva MD - 07/31/2024 [...] signed by Nico NEGRON T: Report ID: [id number] Reading Location: [id number] Addie Moore NP IMG XR PROCEDURES Final Resul t * Differential, auto (07/30/2024 4:03 PM CDT) Neutrophil abs 5.11 1.50 - 6.50 K/cumm Imm gran abs 0.03 0.00 - 0.10 K/cumm [facility] Lymphocyte abs 0.92 0.80 - 3.30 K/cumm [facility] Monocyte abs 0.69 0.20 - 0.80 K/cumm [facility] Eosinophil abs 0.43 0.00 - 0.50 K/cumm [facility] Basophil abs 0.06 0.00 - 0.10 K/cumm [facility] Neutrophil pct 70.7 % [facility] Comment: Interpretive Data Percent cell count reference ranges are not reported, since discordance with absolute values may lead to misinterpretation of CBC data. Current Interpretive Data was last revised on 2017. Imm gran pct 0.4 % [facility] Comment: Interpretive Data Percent cell count reference ranges are not reported, since discordance with absolute values may lead to misinterpretation of CBC data. Current Interpretive Data was last revised on 2017. Lymphocyte pct 12.7 % [facility] Comment: Interpretive Data Percent cell count reference ranges are not reported, since discordance with absolute values may lead to misinterpretation of CBC data. Current Interpretive Data was last revised on 2017. Monocyte pct 9.5 % [facility] Comment: Interpretive Data Percent cell count reference ranges are not reported, since discordance with absolute values may lead to misinterpretation of CBC data. Current Interpretive Data was last revised on 2017. Eosinophil pct 5.9 % [facility] Comment: Interpretive Data Percent cell count reference ranges are not reported, since discordance with absolute values may lead to misinterpretation of CBC data. Current Interpretive Data was last revised on 2017. Basophil pct 0.8 % [facility] Comment: Interpretive Data Percent cell count reference ranges are not reported, since discordance with absolute values may lead to misinterpretation of CBC data. Current Interpretive Data was last revised on 2017. Blood 07/30/2024 4:03 PM CDT 07/30/2024 9:13 PM CDT us Addie Moore NP LAB BLOOD ORDERABLES Final Re sult [facility] [address] Department [place] [address] * (ABNORMAL) Pro B-type natriuretic peptide (07/30/2024 [...] as advanced age. - References: 1. Tyrone JL et.al. Eur Heart J. 2006:27:330-337. 2. Daisha RW, Jami HARRISON. J. AM Darnell Cardiol: Cardiovasc Imag. 2009;2: 216- 225. Interpretive Data Last Revised Date: 2017. Blood 07/30/2024 4:03 PM CDT 07/30/2024 9:13 PM CDT us Addie Moore NP LAB BLOOD ORDERABLES Final Re sult [facility] [address] [address] [place] [address] * (ABNORMAL) CBC with auto differential (07/30/2024 4:03 PM CDT) Pathologist [facility] WBC 7.24 3.80 - 9.90 K/cumm Hgb 13.9 11.9 - 15.5 g/dL [facility] Hct 40.6 35.6 - 45.5 % [facility] Plt 196 150 - 400 K/cumm [facility] MPV 9.3 9.1 - 12.3 fL [facility] RBC 5.01 3.90 - 5.20 M/cumm [facility] MCV 81.0(L) 81.3 - 96.4 fL [facility] MCH 27.7 27.1 - 33.3 pg [facility] MCHC 34.2 32.3 - 35.7 g/dL [facility] RDW CV 17.5(H) 11.1 - 14.9 % [facility] RDW SD 51.3(H) 35.7 - 48.1 fL [facility] NRBC abs 0.00 0.00 - 0.01 K/cumm [facility] Blood 07/30/2024 4:03 PM CDT 07/30/2024 9:13 PM CDT Addie Moore NP LAB BLOOD ORDERABLES Final Re sult [facility] [address] [address] [place] [address] * Hepatitis panel, acute (08/29/2021 2:30 PM CDT) Hep A IgM Nonreactive Nonreactive [facility] Comment: Interpretive Data: If Hep A IgM Ab is reported as Equivocal, a new sample should be drawn in two weeks for testing. Current interpretive data was last revised on 19. Hep B core IgM Nonreactive Nonreactive [facility] Comment: Interpretive Data If HepB Core IgM Ab is reported as Equivocal, a new sample should be drawn in two weeks for testing. Current interpretive data was last revised on 19. Hep C Ab Nonreactive Nonreactive [facility] Comment: Interpretive Data Nonreactive: Antibodies to HCV [...] GENERAL ORD ERABLES Final Result [facility] [address] [address] [place] [address] from Last 3 Months or Most Recently Relevant to Health Maintenance Insurance [facility] MEDICARE MEDICARE [facility] FEDERAL MEDICARE [facility] FEDERAL MEDICARE Advance Directives For more information, please contact: [phone] * Full Code (Latest Code Status on File) Date Activated Date Inactivated Comments 05/19/2022 9:36 AM 05/20/2022 5:19 AM * Full Code Date Activated Date Inactivated Comments 08/25/2021 9:12 PM 09/09/2021 6:36 PM Healthcare Agents on File Name Relationship Healthcare Agent Relationsoh p Communication Al Tiffany Mckeon Health Care Agent Care Teams Condenser Operator Relationship Specialty Start Date End Date Addie Moore NP [address] [place] [address] PCP - General Family Medicine 04/14/23 Louisa Anderson MD [address] [place] [address] Consulting Physician Cardiovascular Disease 09/09/21 Juan Luis Fritz MD [address] [place] [address] Consulting Physician Nephrology 09/09/21 Joshua Motley MD [address] [place] [address] Referring Physician Nephrology 02/15/22 Wily Tolbert RN [address] [place] [address] [place] [address] It Network Architect 04/30/24
--- OUTSIDE RECORDS SUMMARY | 2024-08-12 19:04 | XMS_ITS | Encounter Summary ---
Author Organization [facility] Healthcare Address [address] [place] [address] Care Team Providers Care Helper Metal Hanging Name Role Phone Louisa Anderson MD Unavailable [phone] Juan Luis Fritz MD Unavailable [phone] Joshua Motley MD Unavailable [phone] Addie Moore NP Primary Care Provider [phone] Wily Tolbert RN Unavailable [phone] Encounter Details Date Type Department Care Team (Late st Contact Info) Description 07/31/2024 Results Follow-Up [facility] Primary Care at [address] [address] Addie Moore NP [address] [place] [address] [address] [place] [address] Social History Tobacco Use Types Packs/Day Years Used Date Smoking Tobacco: Former Cigarettes Q uit: 10/01/2020 Smokeless Tobacco: Never Alcohol Use Standard Drinks/Week Comments Yes 0 (1 standard drink = 0.6 oz pur e alcohol) [facility] Utilities Answer Date Recorded In the past [...] often do you attend chur ch or jain services? Never 04/20/2024 Do you belong to any clubs o r organizations such as sikh groups, unions, fraternal or athletic groups, or [...] any time in the past [address] [facility], were you homeless or living in a [facility]p (including now)? No 04/20/2024 Personal Safety Answer Date Recorded Getting School Help Needed Denies 04/13 Comments No Sex and Gender Information Value Date Recorded Sex Assigned at Not on file Legal Sex Female 8:21 AM CDT Gender Identity Not on file Sexual Orientation Not on file documented as of this encounter Plan of Treatment Not on file documented as of this encounter Visit Diagnoses Not on filedocumented in this encounter Care Teams Helper Metal Hanging Relationship Specialty Start Date End Date Addie Moore NP [address] [place] [address] PCP - General Family Medicine 04/14/23 Louisa Anderson MD [address] [place] [address] Consulting Physician Cardiovascular Disease 09/09/21 Juan Luis Fritz MD [address] [place] [address] Consulting Physician Nephrology 09/09/21 Joshua Motley MD [address] [place] [address] Referring Physician Nephrology 02/15/22 Wily Tolbert RN [address] [place] [address] [place] [address] Hide And Skin Classer 04/30/24 documented as of this encounter
--- OUTSIDE RECORDS SUMMARY | 2024-08-12 19:06 | XMS_ITS | Clinical Summary ---
Author Organization [facility] Address [facility] [place] [address] Care Team Providers Care Box Covering Machine Operator Name Role Phone None, Provider MD Primary Care Provider Unavaila ble Allergies No known active allergies Medications lisinopril 20 MG tablet Take 20 mg by mouth daily. Active Social History Tobacco Use Types Packs/Day Years Used Date Smoking Tobacco: Never Assessed Comments Unknown Sex and Gender Information Value Date Recorded Sex Assigned at Not on file Legal Sex Female 11:16 AM CDT Gender Identity Not on file Sexual Orientation Not on file Last Filed Vital Signs Vital Sign Reading Time Taken Comments Blood Pressure 128/50 11/03/2019 5:00 AM CDT Pulse 89 11/03/2019 5:00 AM CDT Temperature 36.8 C (98.3 F) 11/03/2019 5:00 AM CDT Respiratory Rate 18 11/03/2019 5:00 AM CDT Oxygen Saturation 100% 11/03/2019 5:00 AM CDT Inhaled Oxygen Concentration - - Weight 48.3 kg (106 lb 7.7 oz) 11/02/2019 10:12 AM CDT Height 157.5 cm (5' 2 ) 11/02/2019 10:12 AM CDT Body Mass Index 19.48 11/02/2019 10:12 AM CDT Plan of Treatment Health Maintenance Due Date Last Done Comments Hepatitis C 1963 DTaP, Tdap and Td Vaccines ( 1 - Tdap) 01[birth year]01/1965 Pneumococcal Vaccine: 50+ Ye ars (1 of 1 - PCV) 1994 Zoster Vaccines (1 of 2) 1994 Dexa Scan (General) 2009 RSV Immunization or 60+ Years (1 - 1-dose 75+ series) 01/01/2020 COVID-19 Vaccine (1 - 2024-2 5 season) 2023 Meningococcal B Vaccine Aged Out No l onger eligible based on patient's age to complete this topic Meningococcal Vaccine Aged Out No terri luann eligible based on patient's age to complete this topic RSV Immunizations Under 20 Months Aged Out No longer eligible based on patient's age to complete this topic Insurance [facility] Advance Directives * Full Code (Latest Code Status on File) Date Activated Date Inactivated Comments 11/02/2019 2:38 PM 11/03/2019 12:18 PM Care Teams Box Covering Machine Operator Relationship Specialty Start Date End Date None, Provider, PCP - General 11/02/19
--- OUTSIDE RECORDS SUMMARY | 2024-08-12 19:06 | XMS_ITS ---
Author Organization [facility] Lauri farias ([facility]) Address [facility]– [place] [address] [address] Care Team Providers Care Human Ge[employer] Faculty Member Name Role Phone Unavailable Unavailable Unavailable Allergies, Adverse Reactions, Alerts Allergy Name Allergy Type Status Severity Reaction(s) Onset Date Inactive Date Treating Clinician Comments Penicillins Allergy Active Moderate Allergy 2021-04 0 05:00: 00 Medications Ordered Medication Name Filled Medication Name Start Date Stop Date Current Medication? Ordering Clinician Indication Dosage Frequency Signature (SIG) Comments Components calcitriol 18 14:53: 06 Yes [id number] Number of Repeats Allowed: Frequency: Three times a week Mircera 17 14:56: 50 Yes [id number] Number of Repeats Allowed: Frequency: MAXINE dosing, every four weeks NIFEdipine ER 1- 14:14: 34 Yes Number of Repeats Allowed: Frequency: Two times a day Albuterol Sulfate HFA 2023-04 0-24 10:14: 11 Yes Number of Repeats Allowed: Frequency: Every six hours Acetaminoph en 530 18:42: 54 Yes Number of Repeats Allowed: Frequency: As needed Venofer 5- 19:48: 49 Yes [id number] Number of Repeats Allowed: Frequency: One time a weekDosesO rdered: Maintenanc e Dose 50 Milligram Route: Intravenou s Atorvastati n Calcium 4-03 05:00: 00 Yes Number of Repeats Allowed: Frequency: Once a day, at bedtime Brilinta 2- 11:44: 06 Yes Number of Repeats Allowed: Frequency: Two times a day Ergocalcife rol 1-06 13:00: 32 Yes Number of Repeats Allowed: Frequency: Every Tuesday Aspirin 81 1-06 12:58: 43 Yes Number of Repeats Allowed: Frequency: Every morning ONS [facility] Formulary 2022-04 06:00: 00 Yes [id number] Number of Repeats Allowed: Frequency: Every Dialysis Treatment traZODone HCl 10-30 13:14: 39 Yes Number of Repeats Allowed: Frequency: Once a day, at bedtime Oxybutynin Chloride 10-30 13:13: 40 Yes Number of Repeats Allowed: Frequency: Once a day, at bedtime Oxygen 10-28 12:34: 26 Yes [id number] Number of Repeats Allowed: Frequency: As needed ondansetron hydrochlori de 10-28 12:34: 14 Yes [id number] Number of Repeats Allowed: Frequency: Every 4 hours as needed Normal Saline Solution 0.9% NaCl 10-28 12:34: 03 Yes [id number] Number of Repeats Allowed: Frequency: As needed EpiPen 2-Karlos 10-28 12:33: 49 Yes [id number] Number of Repeats Allowed: Frequency: Every 4 hours as needed diphenhydra mine hydrochlori de 10-28 12:33: 37 Yes [id number] Number of Repeats Allowed: Frequency: Every 4 hours as needed diphenhydra mine hydrochlori de 10-28 12:33: 26 Yes [id number] Number of Repeats Allowed: Frequency: Every 4 hours as needed clonidine 10-28 12:33: 12 Yes [id number] Number of Repeats Allowed: Frequency: Every 4 hours as needed acetaminoph en 10-28 12:32: 54 Yes [id number] Number of Repeats Allowed: Frequency: Every 4 hours as needed Omeprazole 15 05:00: 00 Yes Number of Repeats Allowed: Frequency: One time a day Melatonin 09-12 05:00: 00 Yes Number of Repeats Allowed: Frequency: Once a day, at bedtime Isosorbide Mononitrate ER 09-12 05:00: 00 Yes Number of Repeats Allowed: Frequency: One time a day Problems This patient has no known problems. Procedures Procedure Date / Time Performed Performing Clinician Kathia kimber Details AV Graft 2022-03-01 06:00:00 Access Site Forearm (Left) Central Venous Catheter (CVC)2021-09-10 05:00:00 Access Site Chest (Right) Access Use End Date 2022-05-19 06:00:00 DIALYSIS TREATMENT INFORMATION Conventional Hemodialysis Date Type Treatment Start Date Treatment End Date Pre-Treatment Vitals Post-Treatment Vitals Weight Gain BFR DFR Actual UF Dialysis Access August 11, 2024 In-Ce nter Hemod ialys is Treat ment 2024-08-11 T10:22:49. 000Z 2024-08-11 T13:20:19. 000Z BP Sitting (Pre-Dialysis) 166/91 mmHg BP Sitting (Post-D ialysis ) 206/ 104 mmHg BP Standing (Pre-Dialysis) 180/88 mmHg BP Standing (P ost-Dialysis) 185/85 mmHg Sitting Heart Rate Pre-Dialysis 106 BPM Sitting Heart Rate Post-Dialysis 100 BPM Standing Heart Rate Pre-Dialysis 112 BPM Standing Heart Rate Post-Dialysis 98 BPM Temperature Pre-Dialysis 98 degF Temperature Post -Dialysis 96 degF August 09, 2024 In-Center Hemodialysis Treatment 2228-03-09D97:17:33.000Z 9803-56-83A43:18:23.000Z BP Sitting (Pre-Dialysis) 151/98 mmHg BP Sitting (Post-Dialysis) 150/61 mmHg Concurrent Access: falseAV Graft Forearm (Left) Arterial BP Standing (Pre-Dialysis) 162/67 mmHg BP Standing (P ost-Dialysis) 154/80 mmHg Sitting Heart Rate Pre-Dialysis 92 BPM Sitting Heart Rate Post-Dialysis 92 BPM Standing Heart Rate Pre-Dialysis 112 BPM Standing Heart Rate Post-Dialysis 103 BPM Temperature Pre-Dialysis 97.7 degF Temperature Post -Dialysis 98.1 degF August 07, 2024 In-Center Hemodialysis Treatment 7198-61-98K91:26:51.000Z 6611-75-56N14:20:36.000Z BP Sitting (Pre-Dialysis) 180/66 mmHg BP Sitting (Post-Dialysis) 164/71 mmHg Concurrent Access: falseAV Graft Forearm (Left) Arterial BP Standing (Pre-Dialysis) 166/70 mmHg Sitti ng Heart Rate Post-Dialysis 95 BPM Sitting Heart Rate Pre-Dialysis 85 BPM Temperatu re Post-Dialysis 98.2 degF Standing Heart Rate Pre-Dialysis 85 BPM Temperature Pre-Dialysis 98.1 degF August 04, 2024 In-Center Hemodialysis Treatment 3444-35-60U32:34:44.000Z 6855-24-89R55:20:59.000Z BP Sitting (Pre-Dialysis) 154/73 mmHg BP Sitting (Post-Dialysis) 150/71 mmHg Concurrent Access: falseAV Graft Forearm (Left) Arterial Sitting Heart Rate Pre-Dialysis 98 BPM BP Standing (Post-Dialysis) 141/68 mmHg Temperature Pre-Dialysis 98.1 degF Sitting Heart Ra te Post-Dialysis 97 BPM Standing Heart Rate Post-Rosalba lysis 95 BPM Temperature Post-Dialysis 98 degF August 02, 2024 In-Center Hemodialysis Treatment 0747-64-95D33:18:04.000Z 0132-18-62O65:18:29.000Z BP Sitting (Pre-Dialysis) 158/74 mmHg BP Sitting (Post-Dialysis) 165/75 mmHg Concurrent Access: falseAV Graft Forearm (Left) Arterial BP Standing (Pre-Dialysis) 170/76 mmHg BP Standing (P ost-Dialysis) 176/87 mmHg Sitting Heart Rate Pre-Dialysis 101 BPM Sitting Heart Rate Post-Dialysis 95 BPM Standing Heart Rate Pre-Dialysis 107 BPM Standing Heart Rate Post-Dialysis 96 BPM Temperature Pre-Dialysis 98.3 degF Temperature Post -Dialysis 97.9 degF July 31, 2024 In-Center Hemodialysis Treatment 9246-19-32C96:18:50.000Z 7859-71-46W56:18:50.000Z BP Sitting (Pre-Dialysis) 157/80 mmHg BP Sitting (Post-Dialysis) 173/69 mmHg Concurrent Access: falseAV Graft Forearm (Left) Arterial BP Standing (Pre-Dialysis) 155/76 mmHg BP Standing (P ost-Dialysis) 160/78 mmHg Sitting Heart Rate Pre-Dialysis 114 BPM Sitting Heart Rate Post-Dialysis 104 BPM Standing Heart Rate Pre-Dialysis 117 BPM Standing Heart Rate Post-Dialysis 103 BPM Temperature Pre-Dialysis 98.2 degF Temperature Post -Dialysis 97.8 degF July 28, 2024 In-Center Hemodialysis Treatment 9316-50-76T33:23:55.000Z 2582-10-04H97:19:45.000Z BP Sitting (Pre-Dialysis) 151/73 mmHg BP Sitting (Post-Dialysis) 165/71 mmHg Concurrent Access: falseAV Graft Forearm (Left) Arterial BP Standing (Pre-Dialysis) 144/61 mmHg Sitti ng Heart Rate Post-Dialysis 103 BPM Sitting Heart Rate Pre-Dialysis 96 BPM Temperatu re Post-Dialysis 97.3 degF Standing Heart Rate Pre-Dialysis 102 BPM Temperature Pre-Dialysis 98 degF July 26, 2024 In-Center Hemodialysis Treatment 9143-85-63A83:17:14.000Z 8128-16-82Z22:17:14.000Z BP Sitting (Pre-Dialysis) 155/74 mmHg BP Sitting (Post-Dialysis) 161/78 mmHg Concurrent Access: falseAV Graft Forearm (Left) Arterial BP Standing (Pre-Dialysis) 147/76 mmHg BP Standing (P ost-Dialysis) 149/77 mmHg Sitting Heart Rate Pre-Dialysis 108 BPM Sitting Heart Rate Post-Dialysis 98 BPM Standing Heart Rate Pre-Dialysis 109 BPM Standing Heart Rate Post-Dialysis 103 BPM Temperature Pre-Dialysis 97.9 degF Temperature Post -Dialysis 98 degF July 24, 2024 In-Center Hemodialysis Treatment 1858-36-69E60:19:20.000Z 3528-71-82W22:22:15.000Z BP Sitting (Pre-Dialysis) 159/75 mmHg BP Sitting (Post-Dialysis) 183/89 mmHg Concurrent Access: falseAV Graft Forearm (Left) Arterial BP Standing (Pre-Dialysis) 161/65 mmHg Sitti ng Heart Rate Post-Dialysis 98 BPM Sitting Heart Rate Pre-Dialysis 107 BPM Temperatu re Post-Dialysis 97.6 degF Standing Heart Rate Pre-Dialysis 111 BPM Temperature Pre-Dialysis 98.2 degF July 21, 2024 In-Center Hemodialysis Treatment 2708-16-35N22:24:00.000Z 9316-99-75G74:25:45.000Z BP Sitting (Pre-Dialysis) 177/87 mmHg Concurrent Access: falseAV Graft Forearm (Left) Arterial BP Standing (Pre-Dialysis) 173/77 mmHg Sitting Heart Rate Pre-Dialysis 101 BPM Standing Heart Rate Pre-Dialysis 107 BPM Temperature Pre-Dialysis 97.8 degF July 19, 2024 In-Center Hemodialysis Treatment 5682-92-94S01:19:48.000Z 1557-86-19C20:15:38.000Z BP Sitting (Pre-Dialysis) 161/70 mmHg BP Sitting (Post-Dialysis) 172/82 mmHg Concurrent Access: falseAV Graft Forearm (Left) Arterial BP Standing (Pre-Dialysis) 171/76 mmHg BP Standing (P ost-Dialysis) 158/77 mmHg Sitting Heart Rate Pre-Dialysis 86 BPM Sitting Heart Rate Post-Dialysis 92 BPM Standing Heart Rate Pre-Dialysis 90 BPM Standing Heart Rate Post-Dialysis 96 BPM Temperature Pre-Dialysis 97.7 degF Temperature Post -Dialysis 98.1 degF July 17, 2024 In-Center Hemodialysis Treatment 9294-35-09K24:24:00.000Z 5612-87-67M44:21:27.000Z BP Sitting (Pre-Dialysis) 145/61 mmHg BP Sitting (Post-Dialysis) 138/71 mmHg Concurrent Access: falseAV Graft Forearm (Left) Arterial BP Standing (Pre-Dialysis) 135/63 mmHg BP Standing (P ost-Dialysis) 147/54 mmHg Sitting Heart Rate Pre-Dialysis 91 BPM Sitting Heart Rate Post-Dialysis 92 BPM Standing Heart Rate Pre-Dialysis 107 BPM Standing Heart Rate Post-Dialysis 95 BPM Temperature Pre-Dialysis 97.6 degF Temperature Post -Dialysis 98.3 degF July 14, 2024 In-Center Hemodialysis Treatment 7825-19-62P99:14:46.000Z 1502-90-10V11:14:21.000Z BP Sitting (Pre-Dialysis) 141/76 mmHg BP Sitting (Post-Dialysis) 167/85 mmHg Concurrent Access: falseAV Graft Forearm (Left) Arterial BP Standing (Pre-Dialysis) 140/74 mmHg Sitti ng Heart Rate Post-Dialysis 88 BPM Sitting Heart Rate Pre-Dialysis 106 BPM Temperatu re Post-Dialysis 98.1 degF Standing Heart Rate Pre-Dialysis 109 BPM Temperature Pre-Dialysis 97.6 degF July 12, 2024 In-Center Hemodialysis Treatment 0473-16-03P55:16:00.000Z 0790-71-96P70:17:03.000Z BP Sitting (Pre-Dialysis) 149/77 mmHg BP Sitting (Post-Dialysis) 174/81 mmHg Concurrent Access: falseAV Graft Forearm (Left) Arterial BP Standing (Pre-Dialysis) 141/76 mmHg BP Standing (P ost-Dialysis) 157/76 mmHg Sitting Heart Rate Pre-Dialysis 102 BPM Sitting Heart Rate Post-Dialysis 94 BPM Standing Heart Rate Pre-Dialysis 108 BPM Standing Heart Rate Post-Dialysis 94 BPM Temperature Pre-Dialysis 97.9 degF Temperature Post -Dialysis 98.4 degF July 10, 2024 In-Center Hemodialysis Treatment 9769-32-13W09:25:00.000Z 8038-12-33Q93:23:41.000Z BP Sitting (Pre-Dialysis) 163/64 mmHg BP Sitting (Post-Dialysis) 159/74 mmHg Concurrent Access: falseAV Graft Forearm (Left) Arterial BP Standing (Pre-Dialysis) 189/95 mmHg BP Standing (P ost-Dialysis) 150/72 mmHg Sitting Heart Rate Pre-Dialysis 106 BPM Sitting Heart Rate Post-Dialysis 96 BPM Standing Heart Rate Pre-Dialysis 115 BPM Standing Heart Rate Post-Dialysis 98 BPM Temperature Pre-Dialysis 97.8 degF Temperature Post -Dialysis 98.2 degF July 07, 2024 In-Center Hemodialysis Treatment 3455-95-71E84:24:38.000Z 1995-52-82T85:16:43.000Z BP Sitting (Pre-Dialysis) 138/72 mmHg BP Sitting (Post-Dialysis) 170/81 mmHg Concurrent Access: falseAV Graft Forearm (Left) Arterial BP Standing (Pre-Dialysis) 141/73 mmHg BP Standing (P ost-Dialysis) 164/102 mmHg Sitting Heart Rate Pre-Dialysis 111 BPM Sitting Heart Rate Post-Dialysis 89 BPM Standing Heart Rate Pre-Dialysis 119 BPM Standing Heart Rate Post-Dialysis 99 BPM Temperature Pre-Dialysis 98.2 degF Temperature Post -Dialysis 98.2 degF July 05, 2024 In-Center Hemodialysis Treatment 1423-73-89K77:25:00.000Z 8786-56-92F94:25:24.000Z BP Sitting (Pre-Dialysis) 163/83 mmHg BP Sitting (Post-Dialysis) 154/90 mmHg Concurrent Access: falseAV Graft Forearm (Left) Arterial BP Standing (Pre-Dialysis) 159/73 mmHg BP Standing (P ost-Dialysis) 162/77 mmHg Sitting Heart Rate Pre-Dialysis 111 BPM Sitting Heart Rate Post-Dialysis 93 BPM Standing Heart Rate Pre-Dialysis 111 BPM Standing Heart Rate Post-Dialysis 98 BPM Temperature Pre-Dialysis 98.2 degF Temperature Post -Dialysis 98.5 degF July 03, 2024 In-Center Hemodialysis Treatment 8342-96-37F79:26:00.000Z 6922-52-85L19:20:42.000Z BP Sitting (Pre-Dialysis) 156/62 mmHg BP Sitting (Post-Dialysis) 145/74 mmHg Concurrent Access: falseAV Graft Forearm (Left) Arterial BP Standing (Pre-Dialysis) 153/76 mmHg Sitti ng Heart Rate Post-Dialysis 98 BPM Sitting Heart Rate Pre-Dialysis 103 BPM Temperatu re Post-Dialysis 98.4 degF Standing Heart Rate Pre-Dialysis 107 BPM Temperature Pre-Dialysis 98 degF June 30, 2024 In-Center Hemodialysis Treatment 2479-65-81A59:16:54.000Z 4231-26-22I64:12:19.000Z BP Sitting (Pre-Dialysis) 152/92 mmHg BP Sitting (Post-Dialysis) 166/78 mmHg Concurrent Access: falseAV Graft Forearm (Left) Arterial BP Standing (Pre-Dialysis) 164/83 mmHg BP Standing (P ost-Dialysis) 171/70 mmHg Sitting Heart Rate Pre-Dialysis 90 BPM Sitting Heart Rate Post-Dialysis 97 BPM Standing Heart Rate Pre-Dialysis 105 BPM Standing Heart Rate Post-Dialysis 93 BPM Temperature Pre-Dialysis 98.2 degF Temperature Post -Dialysis 98.3 degF June 28, 2024 In-Center Hemodialysis Treatment 8899-84-84M23:22:41.000Z 9068-56-12O17:22:16.000Z BP Sitting (Pre-Dialysis) 170/104 mmHg BP Sitting (Post-Dialysis) 177/95 mmHg Concurrent Access: falseAV Graft Forearm (Left) Arterial BP Standing (Pre-Dialysis) 179/80 mmHg BP Standing (P ost-Dialysis) 167/115 mmHg Sitting Heart Rate Pre-Dialysis 104 BPM Sitting Heart Rate Post-Dialysis 93 BPM Standing Heart Rate Pre-Dialysis 114 BPM Standing Heart Rate Post-Dialysis 94 BPM Temperature Pre-Dialysis 98 degF Temperature Post -Dialysis 97.8 degF June 26, 2024 In-Center Hemodialysis Treatment 2765-10-87Y24:18:00.000Z 3478-06-89B68:19:32.000Z BP Sitting (Pre-Dialysis) 136/68 mmHg BP Sitting (Post-Dialysis) 162/78 mmHg Concurrent Access: falseAV Graft Forearm (Left) Arterial BP Standing (Pre-Dialysis) 153/69 mmHg Sitti ng Heart Rate Post-Dialysis 94 BPM Sitting Heart Rate Pre-Dialysis 92 BPM Temperatu re Post-Dialysis 97.7 degF Standing Heart Rate Pre-Dialysis 102 BPM Temperature Pre-Dialysis 97.8 degF June 23, 2024 In-Center Hemodialysis Treatment 3250-30-16S86:28:00.000Z 5480-51-45W05:18:23.000Z BP Sitting (Pre-Dialysis) 142/70 mmHg BP Sitting (Post-Dialysis) 149/73 mmHg Concurrent Access: falseAV Graft Forearm (Left) Arterial BP Standing (Pre-Dialysis) 145/70 mmHg BP Standing (P ost-Dialysis) 158/73 mmHg Sitting Heart Rate Pre-Dialysis 115 BPM Sitting Heart Rate Post-Dialysis 97 BPM Standing Heart Rate Pre-Dialysis 116 BPM Standing Heart Rate Post-Dialysis 100 BPM Temperature Pre-Dialysis 98 degF Temperature Post -Dialysis 97.8 degF June 21, 2024 In-Center Hemodialysis Treatment 8524-20-34W74:19:34.000Z 8918-28-86E69:22:29.000Z BP Sitting (Pre-Dialysis) 156/88 mmHg BP Sitting (Post-Dialysis) 174/79 mmHg Concurrent Access: falseAV Graft Forearm (Left) Arterial BP Standing (Pre-Dialysis) 219/89 mmHg BP Standing (P ost-Dialysis) 186/80 mmHg Sitting Heart Rate Pre-Dialysis 99 BPM Sitting Heart Rate Post-Dialysis 97 BPM Standing Heart Rate Pre-Dialysis 111 BPM Standing Heart Rate Post-Dialysis 104 BPM Temperature Pre-Dialysis 97.2 degF Temperature Post -Dialysis 98.3 degF June 19, 2024 In-Center Hemodialysis Treatment 7379-40-04S57:28:05.000Z 1934-89-69G43:21:50.000Z BP Sitting (Pre-Dialysis) 152/73 mmHg BP Sitting (Post-Dialysis) 150/75 mmHg Concurrent Access: falseAV Graft Forearm (Left) Arterial BP Standing (Pre-Dialysis) 161/71 mmHg BP Standing (P ost-Dialysis) 155/56 mmHg Sitting Heart Rate Pre-Dialysis 112 BPM Sitting Heart Rate Post-Dialysis 99 BPM Standing Heart Rate Pre-Dialysis 119 BPM Standing Heart Rate Post-Dialysis 99 BPM Temperature Pre-Dialysis 97.3 degF Temperature Post -Dialysis 97.8 degF June 16, 2024 In-Center Hemodialysis Treatment 8984-70-85T10:22:00.000Z 4873-28-47G57:18:29.000Z BP Sitting (Pre-Dialysis) 122/65 mmHg BP Sitting (Post-Dialysis) 184/93 mmHg Concurrent Access: falseAV Graft Forearm (Left) Arterial BP Standing (Pre-Dialysis) 171/60 mmHg BP Standing (P ost-Dialysis) 178/73 mmHg Sitting Heart Rate Pre-Dialysis 85 BPM Sitting Heart Rate Post-Dialysis 90 BPM Standing Heart Rate Pre-Dialysis 108 BPM Standing Heart Rate Post-Dialysis 95 BPM Temperature Pre-Dialysis 98.1 degF Temperature Post -Dialysis 98 degF June 14, 2024 In-Center Hemodialysis Treatment 2038-84-17V81:28:00.000Z 8509-06-88W32:25:38.000Z BP Sitting (Pre-Dialysis) 154/81 mmHg BP Sitting (Post-Dialysis) 171/76 mmHg Concurrent Access: falseAV Graft Forearm (Left) Arterial BP Standing (Pre-Dialysis) 167/76 mmHg BP Standing (P ost-Dialysis) 172/89 mmHg Sitting Heart Rate Pre-Dialysis 108 BPM Sitting Heart Rate Post-Dialysis 91 BPM Standing Heart Rate Pre-Dialysis 113 BPM Standing Heart Rate Post-Dialysis 97 BPM Temperature Pre-Dialysis 98.2 degF Temperature Post -Dialysis 98 degF June 12, 2024 In-Center Hemodialysis Treatment 7796-11-20V80:33:27.000Z 7049-18-22S89:25:32.000Z BP Sitting (Pre-Dialysis) 169/90 mmHg BP Sitting (Post-Dialysis) 157/60 mmHg Concurrent Access: falseAV Graft Forearm (Left) Arterial BP Standing (Pre-Dialysis) 174/75 mmHg BP Standing (P ost-Dialysis) 137/64 mmHg Sitting Heart Rate Pre-Dialysis 107 BPM Sitting Heart Rate Post-Dialysis 94 BPM Standing Heart Rate Pre-Dialysis 110 BPM Standing Heart Rate Post-Dialysis 100 BPM Temperature Pre-Dialysis 98.3 degF Temperature Post -Dialysis 98 degF June 09, 2024 In-Center Hemodialysis Treatment 6389-77-45P85:25:00.000Z 3038-72-72V08:15:01.000Z BP Sitting (Pre-Dialysis) 133/100 mmHg BP Sitting (Post-Dialysis) 179/81 mmHg Concurrent Access: falseAV Graft Forearm (Left) Arterial BP Standing (Pre-Dialysis) 195/72 mmHg BP Standing (P ost-Dialysis) 198/85 mmHg Sitting Heart Rate Pre-Dialysis 88 BPM Sitting Heart Rate Post-Dialysis 91 BPM Standing Heart Rate Pre-Dialysis 96 BPM Standing Heart Rate Post-Dialysis 94 BPM Temperature Pre-Dialysis 98.3 degF Temperature Post -Dialysis 98.1 degF June 07, 2024 In-Center Hemodialysis Treatment 7212-97-09T67:15:53.000Z 7245-88-69N51:15:53.000Z BP Sitting (Pre-Dialysis) 176/79 mmHg BP Sitting (Post-Dialysis) 193/90 mmHg Concurrent Access: falseAV Graft Forearm (Left) Arterial BP Standing (Pre-Dialysis) 177/84 mmHg BP Standing (P ost-Dialysis) 188/87 mmHg Sitting Heart Rate Pre-Dialysis 108 BPM Sitting Heart Rate Post-Dialysis 92 BPM Standing Heart Rate Pre-Dialysis 110 BPM Standing Heart Rate Post-Dialysis 91 BPM Temperature Pre-Dialysis 98.3 degF Temperature Post -Dialysis 98 degF June 05, 2024 In-Center Hemodialysis Treatment 6468-93-77Q77:32:41.000Z 9598-48-56Q77:23:31.000Z BP Sitting (Pre-Dialysis) 163/76 mmHg BP Sitting (Post-Dialysis) 159/69 mmHg Concurrent Access: falseAV Graft Forearm (Left) Arterial BP Standing (Pre-Dialysis) 165/72 mmHg BP Standing (P ost-Dialysis) 154/68 mmHg Sitting Heart Rate Pre-Dialysis 109 BPM Sitting Heart Rate Post-Dialysis 97 BPM Standing Heart Rate Pre-Dialysis 112 BPM Standing Heart Rate Post-Dialysis 98 BPM Temperature Pre-Dialysis 97.4 degF Temperature Post -Dialysis 98.7 degF June 02, 2024 In-Center Hemodialysis Treatment 1119-30-76X95:28:00.000Z 1347-34-79C36:14:17.000Z BP Sitting (Pre-Dialysis) 142/53 mmHg BP Sitting (Post-Dialysis) 186/88 mmHg Concurrent Access: falseAV Graft Forearm (Left) Arterial BP Standing (Pre-Dialysis) 165/82 mmHg Sitti ng Heart Rate Post-Dialysis 101 BPM Sitting Heart Rate Pre-Dialysis 111 BPM Temperatu re Post-Dialysis 98.2 degF Standing Heart Rate Pre-Dialysis 115 BPM Temperature Pre-Dialysis 98.2 degF May 31, 2024 In-Center Hemodialysis Treatment 6647-75-30G26:28:32.000Z 0785-38-30Z22:42:17.000Z BP Sitting (Pre-Dialysis) 176/89 mmHg BP Sitting (Post-Dialysis) 134/80 mmHg Concurrent Access: falseAV Graft Forearm (Left) Arterial BP Standing (Pre-Dialysis) 160/78 mmHg BP Standing (P ost-Dialysis) 154/74 mmHg Sitting Heart Rate Pre-Dialysis 108 BPM Sitting Heart Rate Post-Dialysis 100 BPM Standing Heart Rate Pre-Dialysis 120 BPM Standing Heart Rate Post-Dialysis 103 BPM Temperature Pre-Dialysis 97.7 degF Temperature Post -Dialysis 97.9 degF May 29, 2024 In-Center Hemodialysis Treatment 5902-55-80W28:38:27.000Z 3601-24-37M78:22:37.000Z BP Sitting (Pre-Dialysis) 157/74 mmHg BP Sitting (Post-Dialysis) 137/66 mmHg Concurrent Access: falseAV Graft Forearm (Left) Arterial BP Standing (Pre-Dialysis) 161/75 mmHg BP Standing (P ost-Dialysis) 111/74 mmHg Sitting Heart Rate Pre-Dialysis 110 BPM Sitting Heart Rate Post-Dialysis 103 BPM Standing Heart Rate Pre-Dialysis 119 BPM Standing Heart Rate Post-Dialysis 88 BPM Temperature Pre-Dialysis 97.7 degF Temperature Post -Dialysis 97.6 degF May 26, 2024 In-Center Hemodialysis Treatment 6020-96-42Y87:29:58.000Z 5048-53-33H66:14:58.000Z BP Sitting (Pre-Dialysis) 191/93 mmHg BP Sitting (Post-Dialysis) 198/87 mmHg Concurrent Access: falseAV Graft Forearm (Left) Arterial BP Standing (Pre-Dialysis) 173/89 mmHg BP Standing (P ost-Dialysis) 192/88 mmHg Sitting Heart Rate Pre-Dialysis 112 BPM Sitting Heart Rate Post-Dialysis 91 BPM Standing Heart Rate Pre-Dialysis 114 BPM Standing Heart Rate Post-Dialysis 95 BPM Temperature Pre-Dialysis 98 degF Temperature Post -Dialysis 98.4 degF May 24, 2024 In-Center Hemodialysis Treatment 0503-29-96L57:14:00.000Z 1064-06-75S83:25:49.000Z BP Sitting (Pre-Dialysis) 158/71 mmHg BP Sitting (Post-Dialysis) 179/127 mmHg Concurrent Access: falseAV Graft Forearm (Left) Arterial BP Standing (Pre-Dialysis) 157/66 mmHg Sitti ng Heart Rate Post-Dialysis 98 BPM Sitting Heart Rate Pre-Dialysis 100 BPM Temperatu re Post-Dialysis 98.3 degF Standing Heart Rate Pre-Dialysis 103 BPM Temperature Pre-Dialysis 97.7 degF May 22, 2024 In-Center Hemodialysis Treatment 2635-44-65T65:26:00.000Z 3841-90-65F26:26:57.000Z BP Sitting (Pre-Dialysis) 178/85 mmHg BP Sitting (Post-Dialysis) 19/93 mmHg Concurrent Access: falseAV Graft Forearm (Left) Arterial BP Standing (Pre-Dialysis) 195/82 mmHg BP Standing (P ost-Dialysis) 187/84 mmHg Sitting Heart Rate Pre-Dialysis 115 BPM Sitting Heart Rate Post-Dialysis 100 BPM Standing Heart Rate Pre-Dialysis 118 BPM Standing Heart Rate Post-Dialysis 104 BPM Temperature Pre-Dialysis 98.4 degF Temperature Post -Dialysis 97.3 degF May 19, 2024 In-Center Hemodialysis Treatment 6145-99-23I54:20:00.000Z 7300-35-62H31:18:00.000Z BP Sitting (Pre-Dialysis) 145/77 mmHg BP Sitting (Post-Dialysis) 177/86 mmHg Concurrent Access: falseAV Graft Forearm (Left) Arterial BP Standing (Pre-Dialysis) 149/78 mmHg Sitti ng Heart Rate Post-Dialysis 95 BPM Sitting Heart Rate Pre-Dialysis 117 BPM Temperatu re Post-Dialysis 98.2 degF Standing Heart Rate Pre-Dialysis 118 BPM Temperature Pre-Dialysis 98 degF May 17, 2024 In-Center Hemodialysis Treatment 6235-22-51F09:34:00.000Z 6078-76-49O17:36:00.000Z BP Sitting (Pre-Dialysis) 180/78 mmHg BP Sitting (Post-Dialysis) 181/88 mmHg Concurrent Access: falseAV Graft Forearm (Left) Arterial BP Standing (Pre-Dialysis) 195/75 mmHg Sitting Heart Rate Post-Dialysis 101 BPM Sitting Heart Rate Pre-Dialysis 100 BPM Temperatu re Post-Dialysis 98 degF Standing Heart Rate Pre-Dialysis 103 BPM Temperature Pre-Dialysis 98 degF May 15, 2024 In-Center Hemodialysis Treatment 8754-06-10H01:18:00.000Z 5881-54-04T38:18:00.000Z BP Sitting (Pre-Dialysis) 188/74 mmHg BP Sitting (Post-Dialysis) 216/120 mmHg Concurrent Access: falseAV Graft Forearm (Left) Arterial BP Standing (Pre-Dialysis) 189/80 mmHg BP Standing (P ost-Dialysis) 187/62 mmHg Sitting Heart Rate Pre-Dialysis 118 BPM Sitting Heart Rate Post-Dialysis 66 BPM Standing Heart Rate Pre-Dialysis 120 BPM Standing Heart Rate Post-Dialysis 103 BPM Temperature Pre-Dialysis 98.2 degF Temperature Post -Dialysis 97.3 degF May 12, 2024 In-Center Hemodialysis Treatment 1091-72-55U95:32:00.000Z 6521-32-97N49:55:19.000Z BP Sitting (Pre-Dialysis) 152/80 mmHg BP Sitting (Post-Dialysis) 194/80 mmHg Concurrent Access: falseAV Graft Forearm (Left) Arterial BP Standing (Pre-Dialysis) 160/81 mmHg BP Standing (P ost-Dialysis) 183/89 mmHg Sitting Heart Rate Pre-Dialysis 105 BPM Sitting Heart Rate Post-Dialysis 107 BPM Standing Heart Rate Pre-Dialysis 110 BPM Standing Heart Rate Post-Dialysis 107 BPM Temperature Pre-Dialysis 98.2 degF Temperature Post -Dialysis 98 degF May 10, 2024 In-Center Hemodialysis Treatment [id number]:21:00.000Z [id number]:23:46.000Z BP Sitting (Pre-Dialysis) 149/70 mmHg BP Sitting (Post-Dialysis) 157/75 mmHg Concurrent Access: falseAV [employer] (Left) Arterial BP Standing (Pre-Dialysis) 146/70 mmHg Sitti ng Heart Rate Post-Dialysis 98 BPM Sitting Heart Rate Pre-Dialysis 102 BPM Temperatu re Post-Dialysis 98.1 degF Standing Heart Rate Pre-Dialysis 106 BPM Temperature Pre-Dialysis 98.2 degF May 08, 2024 In-Center Hemodialysis Treatment [id number]:15:00.000Z [id number]:22:15.000Z BP Sitting (Pre-Dialysis) 154/67 mmHg BP Sitting (Post-Dialysis) 179/80 mmHg Concurrent Access: falseAV [employer] (Left) Arterial BP Standing (Pre-Dialysis) 173/75 mmHg BP Standing (P ost-Dialysis) 175/80 mmHg Sitting Heart Rate Pre-Dialysis 101 BPM Sitting Heart Rate Post-Dialysis 90 BPM Standing Heart Rate Pre-Dialysis 108 BPM Standing Heart Rate Post-Dialysis 93 BPM Temperature Pre-Dialysis 98 degF Temperature Post -Dialysis 98.2 degF May 05, 2024 In-Center Hemodialysis Treatment [id number]:13:00.000Z [id number]:21:46.000Z BP Sitting (Pre-Dialysis) 135/62 mmHg BP Sitting (Post-Dialysis) 161/72 mmHg Concurrent Access: falseAV [employer] (Left) Arterial BP Standing (Pre-Dialysis) 140/58 mmHg BP Standing (P ost-Dialysis) 146/74 mmHg Sitting Heart Rate Pre-Dialysis 108 BPM Sitting Heart Rate Post-Dialysis 92 BPM Standing Heart Rate Pre-Dialysis 111 BPM Standing Heart Rate Post-Dialysis 96 BPM Temperature Pre-Dialysis 98.4 degF Temperature Post -Dialysis 98.2 degF May 03, 2024 In-Center Hemodialysis Treatment [id number]:21:10.000Z [id number]:21:10.000Z BP Sitting (Pre-Dialysis) 174/62 mmHg BP Sitting (Post-Dialysis) 196/77 mmHg Concurrent Access: falseAV [employer] (Left) Arterial BP Standing (Pre-Dialysis) 181/68 mmHg BP Standing (P ost-Dialysis) 177/73 mmHg Sitting Heart Rate Pre-Dialysis 105 BPM Sitting Heart Rate Post-Dialysis 93 BPM Standing Heart Rate Pre-Dialysis 105 BPM Standing Heart Rate Post-Dialysis 97 BPM Temperature Pre-Dialysis 97.9 degF Temperature Post -Dialysis 98.6 degF May 01, 2024 In-Center Hemodialysis Treatment [id number]:17:00.000Z [id number]:25:12.000Z BP Sitting (Pre-Dialysis) 189/87 mmHg BP Sitting (Post-Dialysis) 205/94 mmHg Concurrent Access: falseAV [employer] (Left) Arterial BP Standing (Pre-Dialysis) 194/84 mmHg BP Standing (P ost-Dialysis) 197/89 mmHg Sitting Heart Rate Pre-Dialysis 106 BPM Sitting Heart Rate Post-Dialysis 90 BPM Standing Heart Rate Pre-Dialysis 107 BPM Standing Heart Rate Post-Dialysis 91 BPM Temperature Pre-Dialysis 98 degF Temperature Post -Dialysis 98 degF April 28, 2024 In-Center Hemodialysis Treatment [id number]:16:49.000Z 8579-36-14L42:16:24.000Z BP Sitting (Pre-Dialysis) 182/79 mmHg BP Sitting (Post-Dialysis) 203/92 mmHg Concurrent Access: falseAV [employer] (Left) Arterial Sitting Heart Rate Pre-Dialysis 107 BPM BP Standi ng (Post-Dialysis) 209/102 mmHg Temperature Pre-Dialysis 98 degF Sitting Heart Ra te Post-Dialysis 92 BPM Standing Heart Rate Post-Rosalba lysis 96 BPM Temperature Post-Dialysis 97 .8 degF April 26, 2024 In-Center Hemodialysis Treatment [id number]:25:00.000Z 2354-68-55Y76:25:24.000Z BP Sitting (Pre-Dialysis) 145/73 mmHg BP Sitting (Post-Dialysis) 208/92 mmHg Concurrent Access: falseAV [employer] (Left) Arterial BP Standing (Pre-Dialysis) 139/77 mmHg Sitting Heart Rate Post-Dialysis 91 BPM Sitting Heart Rate Pre-Dialysis 103 BPM Temperatu re Post-Dialysis 98 degF Standing Heart Rate Pre-Dialysis 105 BPM Temperature Pre-Dialysis 98.2 degF April 24, 2024 In-Center Hemodialysis Treatment [id number]:18:00.000Z [id number]:23:41.000Z BP Sitting (Pre-Dialysis) 173/78 mmHg BP Sitting (Post-Dialysis) 187/85 mmHg Concurrent Access: falseAV [employer] (Left) Arterial BP Standing (Pre-Dialysis) 181/77 mmHg BP Standing (P ost-Dialysis) 172/83 mmHg Sitting Heart Rate Pre-Dialysis 103 BPM Sitting Heart Rate Post-Dialysis 83 BPM Standing Heart Rate Pre-Dialysis 104 BPM Standing Heart Rate Post-Dialysis 87 BPM Temperature Pre-Dialysis 97.9 degF Temperature Post -Dialysis 98.1 degF April 21, 2024 In-Center Hemodialysis Treatment [id number]:18:40.000Z 3429-73-87I83:19:05.000Z BP Sitting (Pre-Dialysis) 164/75 mmHg BP Sitting (Post-Dialysis) 211/89 mmHg Concurrent Access: falseAV [employer] (Left) Arterial BP Standing (Pre-Dialysis) 161/68 mmHg BP Standing (P ost-Dialysis) 204/88 mmHg Sitting Heart Rate Pre-Dialysis 101 BPM Sitting Heart Rate Post-Dialysis 91 BPM Standing Heart Rate Pre-Dialysis 105 BPM Standing Heart Rate Post-Dialysis 94 BPM Temperature Pre-Dialysis 97.8 degF Temperature Post -Dialysis 98 degF April 19, 2024 In-Center Hemodialysis Treatment [id number]:22:00.000Z [id number]:54:33.000Z BP Sitting (Pre-Dialysis) 141/70 mmHg BP Sitting (Post-Dialysis) 198/88 mmHg Concurrent Access: falseAV [employer] (Left) Arterial BP Standing (Pre-Dialysis) 145/69 mmHg Sitting Heart Rate Post-Dialysis 80 BPM Sitting Heart Rate Pre-Dialysis 83 BPM Temperatu re Post-Dialysis 98 degF Standing Heart Rate Pre-Dialysis 90 BPM Temperature Pre-Dialysis 98.1 degF April 17, 2024 In-Center Hemodialysis Treatment 5941-17-30Y13:26:00.000Z 4283-34-45I46:34:15.000Z BP Sitting (Pre-Dialysis) 138/66 mmHg BP Sitting (Post-Dialysis) 159/66 mmHg Concurrent Access: falseAV [employer] (Left) Arterial BP Standing (Pre-Dialysis) 141/60 mmHg BP Standing (P ost-Dialysis) 158/75 mmHg Sitting Heart Rate Pre-Dialysis 90 BPM Sitting Heart Rate Post-Dialysis 85 BPM Standing Heart Rate Pre-Dialysis 91 BPM Standing Heart Rate Post-Dialysis 83 BPM Temperature Pre-Dialysis 98.2 degF Temperature Post -Dialysis 98.2 degF April 14, 2024 In-Center Hemodialysis Treatment [id number]:17:31.000Z 2046-88-42E09:17:20.000Z BP Sitting (Pre-Dialysis) 193/83 mmHg BP Sitting (Post-Dialysis) 201/87 mmHg Concurrent Access: falseAV [employer] (Left) Arterial Sitting Heart Rate Pre-Dialysis 97 BPM Sitting H eart Rate Post-Dialysis 74 BPM Temperature Pre-Dialysis 98 degF Temperature Post -Dialysis 98 degF April 12, 2024 In-Center Hemodialysis Treatment [id number]:18:00.000Z 9225-43-80L70:20:44.000Z BP Sitting (Pre-Dialysis) 164/77 mmHg BP Sitting (Post-Dialysis) 173/75 mmHg Concurrent Access: falseAV [employer] (Left) Arterial Sitting Heart Rate Pre-Dialysis 97 BPM BP Standing (Post-Dialysis) 156/73 mmHg Temperature Pre-Dialysis 97.4 degF Sitting Heart Ra te Post-Dialysis 87 BPM Standing Heart Rate Post-Rosalba lysis 87 BPM Temperature Post-Dialysis 98 .4 degF April 09, 2024 In-Center Hemodialysis Treatment 2886-55-31S11:17:00.000Z [id number]:29:39.000Z BP Sitting (Pre-Dialysis) 121/51 mmHg BP Sitting (Post-Dialysis) 164/76 mmHg Concurrent Access: falseAV [employer] (Left) Arterial BP Standing (Pre-Dialysis) 130/62 mmHg BP Standing (P ost-Dialysis) 162/75 mmHg Sitting Heart Rate Pre-Dialysis 67 BPM Sitting Heart Rate Post-Dialysis 80 BPM Standing Heart Rate Pre-Dialysis 67 BPM Standing Heart Rate Post-Dialysis 78 BPM Temperature Pre-Dialysis 98 degF Temperature Post -Dialysis 98.1 degF April 07, 2024 In-Center Hemodialysis Treatment [id number]:28:00.000Z 1974-78-98I36:20:28.000Z BP Sitting (Pre-Dialysis) 190/85 mmHg BP Sitting (Post-Dialysis) 168/73 mmHg Concurrent Access: falseAV [employer] (Left) Arterial BP Standing (Pre-Dialysis) 190/88 mmHg Sitting Heart Rate Post-Dialysis 93 BPM Sitting Heart Rate Pre-Dialysis 100 BPM Temperatu re Post-Dialysis 98 degF Standing Heart Rate Pre-Dialysis 101 BPM Temperature Pre-Dialysis 97.4 degF April 05, 2024 In-Center Hemodialysis Treatment [id number]:22:54.000Z [id number]:22:29.000Z BP Sitting (Pre-Dialysis) 170/66 mmHg BP Sitting (Post-Dialysis) 198/90 mmHg Concurrent Access: falseAV [employer] (Left) Arterial BP Standing (Pre-Dialysis) 182/76 mmHg Sitti ng Heart Rate Post-Dialysis 90 BPM Sitting Heart Rate Pre-Dialysis 98 BPM Temperatu re Post-Dialysis 98.3 degF Standing Heart Rate Pre-Dialysis 106 BPM Temperature Pre-Dialysis 98.2 degF April 02, 2024 In-Center Hemodialysis Treatment [id number]:19:00.000Z 9836-66-07K91:20:54.000Z BP Sitting (Pre-Dialysis) 131/62 mmHg BP Sitting (Post-Dialysis) 143/63 mmHg Concurrent Access: falseAV [employer] (Left) Arterial BP Standing (Pre-Dialysis) 124/61 mmHg BP Standing (P ost-Dialysis) 145/59 mmHg Sitting Heart Rate Pre-Dialysis 96 BPM Sitting Heart Rate Post-Dialysis 82 BPM Standing Heart Rate Pre-Dialysis 101 BPM Standing Heart Rate Post-Dialysis 87 BPM Temperature Pre-Dialysis 98.1 degF Temperature Post -Dialysis 98.3 degF March 31, 2024 In-Center Hemodialysis Treatment [id number]:24:11.000Z [id number]:36:13.000Z BP Sitting (Pre-Dialysis) 225/94 mmHg BP Sitting (Post-Dialysis) 163/70 mmHg Concurrent Access: falseAV [employer] (Left) Arterial BP Standing (Pre-Dialysis) 213/97 mmHg BP Standing (P ost-Dialysis) 146/69 mmHg Sitting Heart Rate Pre-Dialysis 93 BPM Sitting Heart Rate Post-Dialysis 73 BPM Standing Heart Rate Pre-Dialysis 100 BPM Standing Heart Rate Post-Dialysis 73 BPM Temperature Pre-Dialysis 97.3 degF Temperature Post -Dialysis 98.1 degF March 29, 2024 In-Center Hemodialysis Treatment [id number]:26:12.000Z 5850-00-61C88:17:02.000Z BP Sitting (Pre-Dialysis) 178/72 mmHg BP Sitting (Post-Dialysis) 127/61 mmHg Concurrent Access: falseAV [employer] (Left) Arterial BP Standing (Pre-Dialysis) 177/74 mmHg BP Standing (P ost-Dialysis) 137/61 mmHg Sitting Heart Rate Pre-Dialysis 98 BPM Sitting Heart Rate Post-Dialysis 91 BPM Standing Heart Rate Pre-Dialysis 105 BPM Standing Heart Rate Post-Dialysis 93 BPM Temperature Pre-Dialysis 98.2 degF March 27, 2024 In-Center Hemodialysis Treatment [id number]:25:47.000Z 9719-58-00W49:21:37.000Z BP Sitting (Pre-Dialysis) 186/89 mmHg BP Sitting (Post-Dialysis) 174/78 mmHg Concurrent Access: falseAV G[employer] (Left) Arterial BP Standing (Pre-Dialysis) 186/82 mmHg BP Standing (P ost-Dialysis) 187/74 mmHg Sitting Heart Rate Pre-Dialysis 98 BPM Sitting Heart Rate Post-Dialysis 97 BPM Standing Heart Rate Pre-Dialysis 103 BPM Standing Heart Rate Post-Dialysis 100 BPM Temperature Pre-Dialysis 98.3 degF Temperature Post -Dialysis 97.9 degF March 24, 2024 In-Center Hemodialysis Treatment [id number]:26:22.000Z [id number]:15:00.000Z BP Sitting (Pre-Dialysis) 210/92 mmHg BP Sitting (Post-Dialysis) 208/92 mmHg Concurrent Access: falseAV G[employer] (Left) Arterial BP Standing (Pre-Dialysis) 191/91 mmHg BP Standing (P ost-Dialysis) 206/106 mmHg Sitting Heart Rate Pre-Dialysis 107 BPM Sitting Heart Rate Post-Dialysis 90 BPM Standing Heart Rate Pre-Dialysis 108 BPM Standing Heart Rate Post-Dialysis 90 BPM Temperature Pre-Dialysis 98.1 degF Temperature Post -Dialysis 98.1 degF March 22, 2024 In-Center Hemodialysis Treatment [id number]:26:31.000Z 7516-31-26R88:27:21.000Z BP Sitting (Pre-Dialysis) 192/85 mmHg BP Sitting (Post-Dialysis) 176/78 mmHg Concurrent Access: falseAV G[employer] (Left) Arterial BP Standing (Pre-Dialysis) 191/86 mmHg BP Standing (P ost-Dialysis) 150/73 mmHg Sitting Heart Rate Pre-Dialysis 94 BPM Sitting Heart Rate Post-Dialysis 88 BPM Standing Heart Rate Pre-Dialysis 97 BPM Standing Heart Rate Post-Dialysis 91 BPM Temperature Pre-Dialysis 97.9 degF Temperature Post -Dialysis 97.9 degF March 20, 2024 In-Center Hemodialysis Treatment [id number]:22:23.000Z [id number]:22:23.000Z BP Sitting (Pre-Dialysis) 136/81 mmHg BP Sitting (Post-Dialysis) 170/71 mmHg Concurrent Access: falseAV [employer] (Left) Arterial BP Standing (Pre-Dialysis) 149/62 mmHg Sitti ng Heart Rate Post-Dialysis 90 BPM Sitting Heart Rate Pre-Dialysis 88 BPM Temperatu re Post-Dialysis 97.9 degF Standing Heart Rate Pre-Dialysis 100 BPM Temperature Pre-Dialysis 97.6 degF March 17, 2024 In-Center Hemodialysis Treatment 4504-27-48B23:16:00.000Z [id number]:05:12.000Z BP Sitting (Pre-Dialysis) 169/77 mmHg BP Sitting (Post-Dialysis) 183/76 mmHg Concurrent Access: falseAV [employer] (Left) Arterial BP Standing (Pre-Dialysis) 175/75 mmHg BP Standing (P ost-Dialysis) 164/73 mmHg Sitting Heart Rate Pre-Dialysis 87 BPM Sitting Heart Rate Post-Dialysis 86 BPM Standing Heart Rate Pre-Dialysis 91 BPM Standing Heart Rate Post-Dialysis 81 BPM Temperature Pre-Dialysis 98.1 degF Temperature Post -Dialysis 98 degF March 15, 2024 In-Center Hemodialysis Treatment [id number]:30:00.000Z [id number]:38:39.000Z BP Sitting (Pre-Dialysis) 147/62 mmHg BP Sitting (Post-Dialysis) 153/68 mmHg Concurrent Access: falseAV [employer] (Left) Arterial BP Standing (Pre-Dialysis) 143/60 mmHg BP Standing (P ost-Dialysis) 169/67 mmHg Sitting Heart Rate Pre-Dialysis 82 BPM Sitting Heart Rate Post-Dialysis 78 BPM Standing Heart Rate Pre-Dialysis 87 BPM Standing Heart Rate Post-Dialysis 80 BPM Temperature Pre-Dialysis 98.3 degF Temperature Post -Dialysis 98 degF March 13, 2024 In-Center Hemodialysis Treatment [id number]:30:00.000Z 4625-21-56Z98:31:23.000Z BP Sitting (Pre-Dialysis) 143/71 mmHg BP Sitting (Post-Dialysis) 133/69 mmHg Concurrent Access: falseAV [employer] (Left) Arterial BP Standing (Pre-Dialysis) 137/58 mmHg BP Standing (P ost-Dialysis) 132/57 mmHg Sitting Heart Rate Pre-Dialysis 88 BPM Sitting Heart Rate Post-Dialysis 83 BPM Standing Heart Rate Pre-Dialysis 93 BPM Standing Heart Rate Post-Dialysis 86 BPM Temperature Pre-Dialysis 98.4 degF Temperature Post -Dialysis 98 degF March 10, 2024 In-Center Hemodialysis Treatment BP Sitting (Pre-Dialysis) 241/97 mmHg Concurrent Access: falseAV G[employer] (Left) Arterial Sitting Heart Rate Pre-Dialysis 75 BPM Temperature Pre-Dialysis 98.1 degF March 07, 2024 In-Center Hemodialysis Treatment [id number]:10:55.000Z 7539-08-88C63:11:45.000Z BP Sitting (Pre-Dialysis) 177/74 mmHg BP Sitting (Post-Dialysis) 212/73 mmHg Concurrent Access: falseAV [employer] (Left) Arterial BP Standing (Pre-Dialysis) 170/78 mmHg Sitting Heart Rate Post-Dialysis 72 BPM Sitting Heart Rate Pre-Dialysis 75 BPM Temperatu re Post-Dialysis 98 degF Standing Heart Rate Pre-Dialysis 76 BPM Temperature Pre-Dialysis 97.6 degF March 05, 2024 In-Center Hemodialysis Treatment [id number]:08:00.000Z 5218-72-93Q06:19:06.000Z BP Sitting (Pre-Dialysis) 126/60 mmHg BP Sitting (Post-Dialysis) 165/78 mmHg Concurrent Access: falseAV G[employer] (Left) Arterial BP Standing (Pre-Dialysis) 159/57 mmHg BP Standing (P ost-Dialysis) 161/64 mmHg Sitting Heart Rate Pre-Dialysis 68 BPM Sitting Heart Rate Post-Dialysis 74 BPM Standing Heart Rate Pre-Dialysis 69 BPM Standing Heart Rate Post-Dialysis 77 BPM Temperature Pre-Dialysis 98 degF Temperature Post -Dialysis 97.8 degF March 03, 2024 In-Center Hemodialysis Treatment 0925-17-39H71:00:08.000Z 7672-72-67W77:00:33.000Z BP Sitting (Pre-Dialysis) 155/53 mmHg BP Sitting (Post-Dialysis) 179/107 mmHg Concurrent Access: falseAV G[employer] (Left) Arterial BP Standing (Pre-Dialysis) 145/62 mmHg BP Standing (P ost-Dialysis) 178/81 mmHg Sitting Heart Rate Pre-Dialysis 72 BPM Sitting Heart Rate Post-Dialysis 77 BPM Standing Heart Rate Pre-Dialysis 77 BPM Standing Heart Rate Post-Dialysis 80 BPM Temperature Pre-Dialysis 98 degF Temperature Post -Dialysis 98 degF March 01, 2024 In-Center Hemodialysis Treatment [id number]:14:00.000Z [id number]:15:31.000Z BP Sitting (Pre-Dialysis) 149/70 mmHg BP Sitting (Post-Dialysis) 187/81 mmHg Concurrent Access: falseAV G[employer]arm (Left) Arterial BP Standing (Pre-Dialysis) 146/61 mmHg Sitting Heart Rate Post-Dialysis 76 BPM Sitting Heart Rate Pre-Dialysis 73 BPM Temperatu re Post-Dialysis 97 degF Standing Heart Rate Pre-Dialysis 77 BPM Temperature Pre-Dialysis 98.1 degF February 28, 2024 In-Center Hemodialysis Treatment [id number]:19:00.000Z 7388-93-15F49:20:30.000Z BP Sitting (Pre-Dialysis) 134/74 mmHg BP Sitting (Post-Dialysis) 200/81 mmHg Concurrent Access: falseAV G[employer] (Left) Arterial BP Standing (Pre-Dialysis) 134/61 mmHg Sitti ng Heart Rate Post-Dialysis 77 BPM Sitting Heart Rate Pre-Dialysis 64 BPM Temperatu re Post-Dialysis 97.3 degF Standing Heart Rate Pre-Dialysis 66 BPM Temperature Pre-Dialysis 97.4 degF February 25, 2024 In-Center Hemodialysis Treatment 1478-09-95T11:25:00.000Z 9835-54-64F82:26:23.000Z BP Sitting (Pre-Dialysis) 123/59 mmHg BP Sitting (Post-Dialysis) 164/99 mmHg Concurrent Access: falseAV G[employer] (Left) Arterial BP Standing (Pre-Dialysis) 130/62 mmHg BP Standing (P ost-Dialysis) 155/70 mmHg Sitting Heart Rate Pre-Dialysis 63 BPM Sitting Heart Rate Post-Dialysis 74 BPM Standing Heart Rate Pre-Dialysis 66 BPM Standing Heart Rate Post-Dialysis 75 BPM Temperature Pre-Dialysis 97.9 degF Temperature Post -Dialysis 98.3 degF February 23, 2024 In-Center Hemodialysis Treatment [id number]:14:45.000Z 8482-33-35S70:14:20.000Z BP Sitting (Pre-Dialysis) 143/62 mmHg BP Sitting (Post-Dialysis) 183/77 mmHg Concurrent Access: falseAV G[employer] (Left) Arterial BP Standing (Pre-Dialysis) 123/61 mmHg BP Standing (P ost-Dialysis) 167/73 mmHg Sitting Heart Rate Pre-Dialysis 65 BPM Sitting Heart Rate Post-Dialysis 79 BPM Standing Heart Rate Pre-Dialysis 68 BPM Standing Heart Rate Post-Dialysis 83 BPM Temperature Pre-Dialysis 98.2 degF Temperature Post -Dialysis 98.1 degF February 21, 2024 In-Center Hemodialysis Treatment 4375-01-21W61:04:00.000Z 8341-94-57E07:05:11.000Z BP Sitting (Pre-Dialysis) 174/71 mmHg BP Sitting (Post-Dialysis) 187/95 mmHg Concurrent Access: falseAV G[employer]arm (Left) Arterial BP Standing (Pre-Dialysis) 168/71 mmHg BP Standing (P ost-Dialysis) 192/91 mmHg Sitting Heart Rate Pre-Dialysis 77 BPM Sitting Heart Rate Post-Dialysis 75 BPM Standing Heart Rate Pre-Dialysis 82 BPM Standing Heart Rate Post-Dialysis 84 BPM Temperature Pre-Dialysis 98.2 degF February 18, 2024 In-Center Hemodialysis Treatment [id number]:07:02.000Z 6000-32-54Y00:04:32.000Z BP Sitting (Pre-Dialysis) 198/76 mmHg BP Sitting (Post-Dialysis) 180/88 mmHg Concurrent Access: falseAV G[employer]arm (Left) Arterial BP Standing (Pre-Dialysis) 189/76 mmHg BP Standing (P ost-Dialysis) 176/66 mmHg Sitting Heart Rate Pre-Dialysis 67 BPM Sitting Heart Rate Post-Dialysis 78 BPM Standing Heart Rate Pre-Dialysis 69 BPM Standing Heart Rate Post-Dialysis 70 BPM Temperature Pre-Dialysis 97.6 degF Temperature Post -Dialysis 98 degF February 16, 2024 In-Center Hemodialysis Treatment [id number]:25:07.000Z [id number]:29:17.000Z BP Sitting (Pre-Dialysis) 157/59 mmHg BP Sitting (Post-Dialysis) 195/86 mmHg Concurrent Access: falseAV G[employer] (Left) Arterial BP Standing (Pre-Dialysis) 139/77 mmHg BP Standing (P ost-Dialysis) 199/81 mmHg Sitting Heart Rate Pre-Dialysis 60 BPM Sitting Heart Rate Post-Dialysis 68 BPM Standing Heart Rate Pre-Dialysis 60 BPM Standing Heart Rate Post-Dialysis 70 BPM Temperature Pre-Dialysis 97.3 degF Temperature Post -Dialysis 97.6 degF February 14, 2024 In-Center Hemodialysis Treatment 3880-30-13M78:24:00.000Z 0620-30-06K38:25:47.000Z BP Sitting (Pre-Dialysis) 123/56 mmHg BP Sitting (Post-Dialysis) 168/64 mmHg Concurrent Access: falseAV G[employer]arm (Left) Arterial BP Standing (Pre-Dialysis) 102/41 mmHg BP Standing (P ost-Dialysis) 136/63 mmHg Sitting Heart Rate Pre-Dialysis 64 BPM Sitting Heart Rate Post-Dialysis 69 BPM Standing Heart Rate Pre-Dialysis 67 BPM Standing Heart Rate Post-Dialysis 70 BPM Temperature Pre-Dialysis 97.7 degF Temperature Post -Dialysis 97.9 degF February 11, 2024 In-Center Hemodialysis Treatment [id number]:13:28.000Z 6301-21-89N79:15:08.000Z BP Sitting (Pre-Dialysis) 209/98 mmHg BP Sitting (Post-Dialysis) 224/87 mmHg Concurrent Access: falseAV Graft Forearm (Left) Arterial BP Standing (Pre-Dialysis) 198/83 mmHg Sitting Heart Rate Post-Dialysis 68 BPM Sitting Heart Rate Pre-Dialysis 68 BPM Temperatu re Post-Dialysis 98 degF Standing Heart Rate Pre-Dialysis 72 BPM Temperature Pre-Dialysis 98 degF February 09, 2024 In-Center Hemodialysis Treatment [id number]:14:19.000Z 8292-41-98X12:15:09.000Z BP Sitting (Pre-Dialysis) 187/73 mmHg BP Sitting (Post-Dialysis) 191/79 mmHg Concurrent Access: falseAV Graft Forearm (Left) Arterial BP Standing (Pre-Dialysis) 172/55 mmHg BP Standing (P ost-Dialysis) 167/70 mmHg Sitting Heart Rate Pre-Dialysis 72 BPM Sitting Heart Rate Post-Dialysis 73 BPM Standing Heart Rate Pre-Dialysis 67 BPM Standing Heart Rate Post-Dialysis 70 BPM Temperature Pre-Dialysis 98 degF Temperature Post -Dialysis 97.7 degF February 07, 2024 In-Center Hemodialysis Treatment [id number]:20:00.000Z 9667-12-82M65:22:15.000Z BP Sitting (Pre-Dialysis) 176/61 mmHg BP Sitting (Post-Dialysis) 209/61 mmHg Concurrent Access: falseAV Graft Forearm (Left) Arterial BP Standing (Pre-Dialysis) 175/80 mmHg BP Standing (P ost-Dialysis) 207/73 mmHg Sitting Heart Rate Pre-Dialysis 60 BPM Sitting Heart Rate Post-Dialysis 63 BPM Standing Heart Rate Pre-Dialysis 63 BPM Standing Heart Rate Post-Dialysis 63 BPM Temperature Pre-Dialysis 97.4 degF Temperature Post -Dialysis 98 degF February 04, 2024 In-Center Hemodialysis Treatment 1003-60-60Z10:25:34.000Z 2297-50-48X25:30:59.000Z BP Sitting (Pre-Dialysis) 214/94 mmHg BP Sitting (Post-Dialysis) 184/82 mmHg Concurrent Access: falseAV Graft Forearm (Left) Arterial BP Standing (Pre-Dialysis) 239/85 mmHg BP Standing (P ost-Dialysis) 175/58 mmHg Sitting Heart Rate Pre-Dialysis 69 BPM Sitting Heart Rate Post-Dialysis 66 BPM Standing Heart Rate Pre-Dialysis 72 BPM Standing Heart Rate Post-Dialysis 68 BPM Temperature Pre-Dialysis 97.8 degF Temperature Post -Dialysis 97.9 degF February 02, 2024 In-Center Hemodialysis Treatment [id number]:08:40.000Z 5433-17-25A71:08:15.000Z BP Sitting (Pre-Dialysis) 124/54 mmHg BP Sitting (Post-Dialysis) 170/56 mmHg Concurrent Access: falseAV Graft [employer]arm (Left) Arterial BP Standing (Pre-Dialysis) 137/47 mmHg BP Standing (P ost-Dialysis) 163/67 mmHg Sitting Heart Rate Pre-Dialysis 59 BPM Sitting Heart Rate Post-Dialysis 65 BPM Standing Heart Rate Pre-Dialysis 61 BPM Standing Heart Rate Post-Dialysis 69 BPM Temperature Pre-Dialysis 97.8 degF Temperature Post -Dialysis 97.8 degF January 31, 2024 In-Center Hemodialysis Treatment [id number]:05:26.000Z [id number]:16:16.000Z BP Sitting (Pre-Dialysis) 209/82 mmHg BP Sitting (Post-Dialysis) 239/94 mmHg Concurrent Access: falseAV Graft Forearm (Left) Arterial Sitting Heart Rate Pre-Dialysis 68 BPM Sitting H eart Rate Post-Dialysis 69 BPM Temperature Pre-Dialysis 98.1 degF Temperature Post -Dialysis 98.4 degF January 28, 2024 In-Center Hemodialysis Treatment 1524-31-01G89:06:15.000Z 8734-71-91A13:06:15.000Z BP Sitting (Pre-Dialysis) 148/68 mmHg BP Sitting (Post-Dialysis) 145/53 mmHg Concurrent Access: falseAV Graft Forearm (Left) Arterial BP Standing (Pre-Dialysis) 149/57 mmHg BP Standing (P ost-Dialysis) 147/56 mmHg Sitting Heart Rate Pre-Dialysis 66 BPM Sitting Heart Rate Post-Dialysis 66 BPM Standing Heart Rate Pre-Dialysis 70 BPM Standing Heart Rate Post-Dialysis 64 BPM Temperature Pre-Dialysis 98.2 degF Temperature Post -Dialysis 98.2 degF January 26, 2024 In-Center Hemodialysis Treatment [id number]:23:00.000Z 9485-54-18Z81:21:33.000Z BP Sitting (Pre-Dialysis) 152/70 mmHg BP Sitting (Post-Dialysis) 147/61 mmHg Concurrent Access: falseAV Graft Forearm (Left) Arterial BP Standing (Pre-Dialysis) 161/72 mmHg BP Standing (P ost-Dialysis) 123/53 mmHg Sitting Heart Rate Pre-Dialysis 68 BPM Sitting Heart Rate Post-Dialysis 64 BPM Standing Heart Rate Pre-Dialysis 76 BPM Standing Heart Rate Post-Dialysis 67 BPM Temperature Pre-Dialysis 98.3 degF Temperature Post -Dialysis 97.9 degF January 24, 2024 In-Center Hemodialysis Treatment 1193-28-10A97:31:07.000Z 3783-42-92Y13:31:07.000Z BP Sitting (Pre-Dialysis) 157/63 mmHg BP Sitting (Post-Dialysis) 127/58 mmHg Concurrent Access: falseAV [employer] (Left) Arterial BP Standing (Pre-Dialysis) 148/56 mmHg BP Standing (P ost-Dialysis) 115/53 mmHg Sitting Heart Rate Pre-Dialysis 70 BPM Sitting Heart Rate Post-Dialysis 63 BPM Standing Heart Rate Pre-Dialysis 74 BPM Standing Heart Rate Post-Dialysis 67 BPM Temperature Pre-Dialysis 97.6 degF Temperature Post -Dialysis 97.6 degF January 21, 2024 In-Center Hemodialysis Treatment [id number]:08:37.000Z [id number]:09:02.000Z BP Sitting (Pre-Dialysis) 165/69 mmHg BP Sitting (Post-Dialysis) 134/68 mmHg Concurrent Access: falseAV [employer] (Left) Arterial BP Standing (Pre-Dialysis) 158/51 mmHg Sitting Heart Rate Post-Dialysis 61 BPM Sitting Heart Rate Pre-Dialysis 67 BPM Temperatu re Post-Dialysis 98 degF Standing Heart Rate Pre-Dialysis 72 BPM Temperature Pre-Dialysis 97.4 degF January 19, 2024 In-Center Hemodialysis Treatment [id number]:15:40.000Z 3905-49-12C21:16:05.000Z BP Sitting (Pre-Dialysis) 140/61 mmHg BP Sitting (Post-Dialysis) 141/55 mmHg Concurrent Access: falseAV [employer] (Left) Arterial BP Standing (Pre-Dialysis) 116/72 mmHg BP Standing (P ost-Dialysis) 136/60 mmHg Sitting Heart Rate Pre-Dialysis 61 BPM Sitting Heart Rate Post-Dialysis 61 BPM Standing Heart Rate Pre-Dialysis 64 BPM Standing Heart Rate Post-Dialysis 60 BPM Temperature Pre-Dialysis 97.2 degF Temperature Post -Dialysis 98 degF January 17, 2024 In-Center Hemodialysis Treatment [id number]:15:35.000Z 5726-53-92R14:15:35.000Z BP Sitting (Pre-Dialysis) 135/63 mmHg BP Sitting (Post-Dialysis) 130/66 mmHg Concurrent Access: falseAV [employer] (Left) Arterial BP Standing (Pre-Dialysis) 131/52 mmHg BP Standing (P ost-Dialysis) 118/53 mmHg Sitting Heart Rate Pre-Dialysis 69 BPM Sitting Heart Rate Post-Dialysis 67 BPM Standing Heart Rate Pre-Dialysis 70 BPM Standing Heart Rate Post-Dialysis 66 BPM Temperature Pre-Dialysis 98.6 degF Temperature Post -Dialysis 97.6 degF January 14, 2024 In-Center Hemodialysis Treatment [id number]:16:10.000Z 6982-52-61V88:18:15.000Z BP Sitting (Pre-Dialysis) 110/49 mmHg BP Sitting (Post-Dialysis) 111/51 mmHg Concurrent Access: falseAV [employer] (Left) Arterial Sitting Heart Rate Pre-Dialysis 56 BPM Sitting H eart Rate Post-Dialysis 58 BPM Temperature Pre-Dialysis 97.2 degF Temperature Post -Dialysis 97.6 degF January 12, 2024 In-Center Hemodialysis Treatment [id number]:12:00.000Z 6678-75-40R34:17:28.000Z BP Sitting (Pre-Dialysis) 129/59 mmHg BP Sitting (Post-Dialysis) 116/48 mmHg Concurrent Access: falseAV [employer] (Left) Arterial Sitting Heart Rate Pre-Dialysis 64 BPM Sitting H eart Rate Post-Dialysis 56 BPM Temperature Pre-Dialysis 98.3 degF Temperature Post -Dialysis 98 degF January 10, 2024 In-Center Hemodialysis Treatment [id number]:14:43.000Z 6134-39-88N93:14:18.000Z BP Sitting (Pre-Dialysis) 136/65 mmHg BP Sitting (Post-Dialysis) 109/56 mmHg Concurrent Access: falseAV [employer] (Left) Arterial BP Standing (Pre-Dialysis) 124/59 mmHg BP Standing (P ost-Dialysis) 101/51 mmHg Sitting Heart Rate Pre-Dialysis 63 BPM Sitting Heart Rate Post-Dialysis 57 BPM Standing Heart Rate Pre-Dialysis 69 BPM Standing Heart Rate Post-Dialysis 57 BPM Temperature Pre-Dialysis 98.2 degF Temperature Post -Dialysis 98 degF January 07, 2024 In-Center Hemodialysis Treatment 5492-28-45N50:01:08.000Z 9505-21-75R43:01:33.000Z BP Sitting (Pre-Dialysis) 145/54 mmHg BP Sitting (Post-Dialysis) 119/47 mmHg Concurrent Access: falseAV [employer] (Left) Arterial Sitting Heart Rate Pre-Dialysis 64 BPM Sitting H eart Rate Post-Dialysis 55 BPM Temperature Pre-Dialysis 98.2 degF Temperature Post -Dialysis 97.3 degF January 05, 2024 In-Center Hemodialysis Treatment [id number]:21:33.000Z 5575-49-04H00:21:08.000Z BP Sitting (Pre-Dialysis) 123/52 mmHg BP Sitting (Post-Dialysis) 120/58 mmHg Concurrent Access: falseAV [employer] (Left) Arterial Sitting Heart Rate Pre-Dialysis 64 BPM Sitting H eart Rate Post-Dialysis 56 BPM Temperature Pre-Dialysis 97.5 degF Temperature Post -Dialysis 98 degF January 03, 2024 In-Center Hemodialysis Treatment 0601-81-83M21:08:01.000Z 8970-79-00X07:08:01.000Z BP Sitting (Pre-Dialysis) 107/49 mmHg BP Sitting (Post-Dialysis) 115/59 mmHg Concurrent Access: falseAV [employer] (Left) Arterial BP Standing (Pre-Dialysis) 107/48 mmHg BP Standing (P ost-Dialysis) 116/48 mmHg Sitting Heart Rate Pre-Dialysis 64 BPM Sitting Heart Rate Post-Dialysis 56 BPM Standing Heart Rate Pre-Dialysis 58 BPM Standing Heart Rate Post-Dialysis 57 BPM Temperature Pre-Dialysis 98 degF Temperature Post -Dialysis 97.2 degF December 30, 2023 In-Center Hemodialysis Treatment [id number]:06:32.000Z 2415-04-31H96:09:52.000Z BP Sitting (Pre-Dialysis) 145/75 mmHg BP Sitting (Post-Dialysis) 118/54 mmHg Concurrent Access: falseAV [employer] (Left) Arterial BP Standing (Pre-Dialysis) 138/53 mmHg BP Standing (P ost-Dialysis) 142/45 mmHg Sitting Heart Rate Pre-Dialysis 74 BPM Sitting Heart Rate Post-Dialysis 65 BPM Standing Heart Rate Pre-Dialysis 74 BPM Standing Heart Rate Post-Dialysis 70 BPM Temperature Pre-Dialysis 98.2 degF Temperature Post -Dialysis 98.1 degF December 29, 2023 In-Center Hemodialysis Treatment 6739-21-07B36:21:00.000Z 4664-44-61T74:23:22.000Z BP Sitting (Pre-Dialysis) 136/53 mmHg BP Sitting (Post-Dialysis) 139/78 mmHg Concurrent Access: falseAV [employer] (Left) Arterial Sitting Heart Rate Pre-Dialysis 70 BPM BP Standing (Post-Dialysis) 147/65 mmHg Temperature Pre-Dialysis 97.3 degF Sitting Heart Ra te Post-Dialysis 66 BPM Standing Heart Rate Post-Rosalba lysis 67 BPM Temperature Post-Dialysis 98 .2 degF December 27, 2023 In-Center Hemodialysis Treatment 9301-76-57U05:15:04.000Z 0300-27-03W08:15:04.000Z BP Sitting (Pre-Dialysis) 145/54 mmHg BP Sitting (Post-Dialysis) 110/55 mmHg Concurrent Access: falseAV [employer] (Left) Arterial BP Standing (Pre-Dialysis) 142/65 mmHg BP Standing (P ost-Dialysis) 114/51 mmHg Sitting Heart Rate Pre-Dialysis 72 BPM Sitting Heart Rate Post-Dialysis 66 BPM Standing Heart Rate Pre-Dialysis 79 BPM Standing Heart Rate Post-Dialysis 58 BPM Temperature Pre-Dialysis 98.2 degF Temperature Post -Dialysis 97.6 degF December 24, 2023 In-Center Hemodialysis Treatment [id number]:07:31.000Z 1208-19-66M05:33:46.000Z BP Sitting (Pre-Dialysis) 152/55 mmHg BP Sitting (Post-Dialysis) 155/62 mmHg Concurrent Access: falseAV [employer] (Left) Arterial BP Standing (Pre-Dialysis) 148/62 mmHg BP Standing (P ost-Dialysis) 141/60 mmHg Sitting Heart Rate Pre-Dialysis 70 BPM Sitting Heart Rate Post-Dialysis 60 BPM Standing Heart Rate Pre-Dialysis 72 BPM Standing Heart Rate Post-Dialysis 80 BPM Temperature Pre-Dialysis 98.2 degF Temperature Post -Dialysis 97.6 degF December 22, 2023 In-Center Hemodialysis Treatment 2701-06-69M40:15:23.000Z 0442-90-61V28:15:23.000Z BP Sitting (Pre-Dialysis) 175/79 mmHg BP Sitting (Post-Dialysis) 127/57 mmHg Concurrent Access: falseAV [employer] (Left) Arterial BP Standing (Pre-Dialysis) 168/72 mmHg Sitting Heart Rate Post-Dialysis 59 BPM Sitting Heart Rate Pre-Dialysis 74 BPM Temperatu re Post-Dialysis 98 degF Standing Heart Rate Pre-Dialysis 74 BPM Temperature Pre-Dialysis 97.7 degF December 20, 2023 In-Center Hemodialysis Treatment 0253-90-89G48:28:00.000Z 0924-61-17L04:31:12.000Z BP Sitting (Pre-Dialysis) 196/74 mmHg BP Sitting (Post-Dialysis) 110/44 mmHg Concurrent Access: falseAV [employer] (Left) Arterial BP Standing (Pre-Dialysis) 195/77 mmHg Sitti ng Heart Rate Post-Dialysis 64 BPM Sitting Heart Rate Pre-Dialysis 75 BPM Temperatu re Post-Dialysis 97.8 degF Standing Heart Rate Pre-Dialysis 74 BPM Temperature Pre-Dialysis 97.9 degF December 17, 2023 In-Center Hemodialysis Treatment 6301-10-88V15:18:00.000Z 1773-45-15J12:18:03.000Z BP Sitting (Pre-Dialysis) 137/53 mmHg BP Sitting (Post-Dialysis) 125/64 mmHg Concurrent Access: falseAV [employer] (Left) Arterial BP Standing (Pre-Dialysis) 150/69 mmHg BP Standing (P ost-Dialysis) 121/55 mmHg Sitting Heart Rate Pre-Dialysis 62 BPM Sitting Heart Rate Post-Dialysis 64 BPM Standing Heart Rate Pre-Dialysis 66 BPM Standing Heart Rate Post-Dialysis 66 BPM Temperature Pre-Dialysis 97.9 degF Temperature Post -Dialysis 98 degF December 10, 2023 In-Center Hemodialysis Treatment 3330-06-72D42:24:00.000Z 5765-05-01C48:06:08.000Z BP Sitting (Pre-Dialysis) 238/92 mmHg BP Sitting (Post-Dialysis) 168/62 mmHg Concurrent Access: falseAV [employer] (Left) Arterial Sitting Heart Rate Pre-Dialysis 73 BPM BP Standing (Post-Dialysis) 171/70 mmHg Temperature Pre-Dialysis 98.2 degF Sitting Heart Ra te Post-Dialysis 69 BPM Standing Heart Rate Post-Rosalba lysis 67 BPM Temperature Post-Dialysis 98 .2 degF December 08, 2023 In-Center Hemodialysis Treatment 9935-93-04Z42:19:00.000Z 5473-31-13V63:19:36.000Z BP Sitting (Pre-Dialysis) 141/63 mmHg BP Sitting (Post-Dialysis) 148/60 mmHg Concurrent Access: falseAV [employer] (Left) Arterial BP Standing (Pre-Dialysis) 136/58 mmHg Sitti ng Heart Rate Post-Dialysis 69 BPM Sitting Heart Rate Pre-Dialysis 76 BPM Temperatu re Post-Dialysis 98.3 degF Standing Heart Rate Pre-Dialysis 76 BPM Temperature Pre-Dialysis 97.9 degF December 06, 2023 In-Center Hemodialysis Treatment 5639-37-44O80:19:13.000Z 5922-83-22J43:19:38.000Z BP Sitting (Pre-Dialysis) 151/61 mmHg BP Sitting (Post-Dialysis) 137/55 mmHg Concurrent Access: falseAV [employer] (Left) Arterial BP Standing (Pre-Dialysis) 149/65 mmHg BP Standing (P ost-Dialysis) 133/61 mmHg Sitting Heart Rate Pre-Dialysis 76 BPM Sitting Heart Rate Post-Dialysis 71 BPM Standing Heart Rate Pre-Dialysis 84 BPM Standing Heart Rate Post-Dialysis 70 BPM Temperature Pre-Dialysis 98 degF Temperature Post -Dialysis 97.2 degF December 01, 2023 In-Center Hemodialysis Treatment 3104-09-79G31:23:00.000Z 8614-36-75X58:23:14.000Z BP Sitting (Pre-Dialysis) 128/56 mmHg BP Sitting (Post-Dialysis) 133/56 mmHg Concurrent Access: falseAV [employer] (Left) Arterial BP Standing (Pre-Dialysis) 121/57 mmHg BP Standing (P ost-Dialysis) 135/58 mmHg Sitting Heart Rate Pre-Dialysis 71 BPM Sitting Heart Rate Post-Dialysis 67 BPM Standing Heart Rate Pre-Dialysis 71 BPM Standing Heart Rate Post-Dialysis 70 BPM Temperature Pre-Dialysis 96.5 degF Temperature Post -Dialysis 97.3 degF November 29, 2023 In-Center Hemodialysis Treatment 2670-95-77Y06:11:00.000Z 0787-23-55C45:24:22.000Z BP Sitting (Pre-Dialysis) 102/66 mmHg BP Sitting (Post-Dialysis) 117/53 mmHg Concurrent Access: falseAV [employer] (Left) Arterial BP Standing (Pre-Dialysis) 153/71 mmHg BP Standing (P ost-Dialysis) 114/55 mmHg Sitting Heart Rate Pre-Dialysis 86 BPM Sitting Heart Rate Post-Dialysis 64 BPM Standing Heart Rate Pre-Dialysis 70 BPM Standing Heart Rate Post-Dialysis 58 BPM Temperature Pre-Dialysis 97.4 degF November 26, 2023 In-Center Hemodialysis Treatment 6502-18-49L85:13:00.000Z 2615-25-56Q49:13:01.000Z BP Sitting (Pre-Dialysis) 141/75 mmHg BP Sitting (Post-Dialysis) 158/66 mmHg Concurrent Access: falseAV [employer] (Left) Arterial BP Standing (Pre-Dialysis) 158/113 mmHg BP Standing (P ost-Dialysis) 148/62 mmHg Sitting Heart Rate Pre-Dialysis 74 BPM Sitting Heart Rate Post-Dialysis 69 BPM Standing Heart Rate Pre-Dialysis 70 BPM Standing Heart Rate Post-Dialysis 69 BPM Temperature Pre-Dialysis 98.2 degF Temperature Post -Dialysis 98 degF November 24, 2023 In-Center Hemodialysis Treatment 0613-39-01P95:18:28.000Z 3921-07-65E85:20:08.000Z BP Sitting (Pre-Dialysis) 182/75 mmHg BP Sitting (Post-Dialysis) 148/52 mmHg Concurrent Access: falseAV [employer] (Left) Arterial BP Standing (Pre-Dialysis) 168/61 mmHg BP Standing (P ost-Dialysis) 112/69 mmHg Sitting Heart Rate Pre-Dialysis 67 BPM Sitting Heart Rate Post-Dialysis 57 BPM Standing Heart Rate Pre-Dialysis 66 BPM Standing Heart Rate Post-Dialysis 62 BPM Temperature Pre-Dialysis 97.6 degF Temperature Post -Dialysis 97.9 degF November 22, 2023 In-Center Hemodialysis Treatment [id number]:13:20.000Z 2836-14-06N62:13:20.000Z BP Sitting (Pre-Dialysis) 153/67 mmHg BP Sitting (Post-Dialysis) 117/52 mmHg Concurrent Access: falseAV [employer] (Left) Arterial BP Standing (Pre-Dialysis) 146/70 mmHg Sitti ng Heart Rate Post-Dialysis 70 BPM Sitting Heart Rate Pre-Dialysis 67 BPM Temperatu re Post-Dialysis 97.3 degF Standing Heart Rate Pre-Dialysis 73 BPM Temperature Pre-Dialysis 97.2 degF November 19, 2023 In-Center Hemodialysis Treatment 6882-48-18Q00:09:30.000Z 2764-53-12V18:09:30.000Z BP Sitting (Pre-Dialysis) 158/64 mmHg BP Sitting (Post-Dialysis) 121/49 mmHg Concurrent Access: falseAV [employer] (Left) Arterial BP Standing (Pre-Dialysis) 168/76 mmHg BP Standing (P ost-Dialysis) 133/54 mmHg Sitting Heart Rate Pre-Dialysis 73 BPM Sitting Heart Rate Post-Dialysis 67 BPM Standing Heart Rate Pre-Dialysis 79 BPM Standing Heart Rate Post-Dialysis 64 BPM Temperature Pre-Dialysis 98 degF Temperature Post -Dialysis 98.2 degF November 17, 2023 In-Center Hemodialysis Treatment 2789-04-78O88:18:57.000Z 0651-93-61P80:19:22.000Z BP Sitting (Pre-Dialysis) 132/53 mmHg BP Sitting (Post-Dialysis) 144/85 mmHg Concurrent Access: falseAV [employer] (Left) Arterial BP Standing (Pre-Dialysis) 137/65 mmHg BP Standing (P ost-Dialysis) 133/64 mmHg Sitting Heart Rate Pre-Dialysis 70 BPM Sitting Heart Rate Post-Dialysis 73 BPM Standing Heart Rate Pre-Dialysis 77 BPM Standing Heart Rate Post-Dialysis 70 BPM Temperature Pre-Dialysis 97.2 degF Temperature Post -Dialysis 97.6 degF November 15, 2023 In-Center Hemodialysis Treatment 5540-83-90A58:23:38.000Z 2202-83-08F70:24:03.000Z BP Sitting (Pre-Dialysis) 172/68 mmHg BP Sitting (Post-Dialysis) 130/55 mmHg Concurrent Access: falseAV [employer] (Left) Arterial BP Standing (Pre-Dialysis) 169/74 mmHg BP Standing (P ost-Dialysis) 119/51 mmHg Sitting Heart Rate Pre-Dialysis 69 BPM Sitting Heart Rate Post-Dialysis 66 BPM Standing Heart Rate Pre-Dialysis 72 BPM Standing Heart Rate Post-Dialysis 61 BPM Temperature Pre-Dialysis 97.9 degF Temperature Post -Dialysis 97.3 degF November 12, 2023 In-Center Hemodialysis Treatment [id number]:18:56.000Z 6605-46-54B85:18:56.000Z BP Sitting (Pre-Dialysis) 175/86 mmHg BP Sitting (Post-Dialysis) 146/58 mmHg Concurrent Access: falseAV [employer] (Left) Arterial BP Standing (Pre-Dialysis) 172/79 mmHg BP Standing (P ost-Dialysis) 113/64 mmHg Sitting Heart Rate Pre-Dialysis 74 BPM Sitting Heart Rate Post-Dialysis 67 BPM Standing Heart Rate Pre-Dialysis 74 BPM Standing Heart Rate Post-Dialysis 77 BPM Temperature Pre-Dialysis 98.1 degF Temperature Post -Dialysis 98 degF November 08, 2023 In-Center Hemodialysis Treatment 6960-77-80O21:19:18.000Z 0743-54-71Y13:18:53.000Z BP Sitting (Pre-Dialysis) 110/57 mmHg BP Sitting (Post-Dialysis) 162/56 mmHg Concurrent Access: falseAV [employer] (Left) Arterial BP Standing (Pre-Dialysis) 144/60 mmHg Sitti ng Heart Rate Post-Dialysis 70 BPM Sitting Heart Rate Pre-Dialysis 78 BPM Temperatu re Post-Dialysis 97.8 degF Standing Heart Rate Pre-Dialysis 81 BPM Temperature Pre-Dialysis 98 degF November 05, 2023 In-Center Hemodialysis Treatment 3191-71-18U01:19:00.000Z 3050-58-06P89:19:33.000Z BP Sitting (Pre-Dialysis) 136/93 mmHg BP Sitting (Post-Dialysis) 142/60 mmHg Concurrent Access: falseAV [employer] (Left) Arterial BP Standing (Pre-Dialysis) 140/69 mmHg BP Standing (P ost-Dialysis) 141/55 mmHg Sitting Heart Rate Pre-Dialysis 81 BPM Sitting Heart Rate Post-Dialysis 73 BPM Standing Heart Rate Pre-Dialysis 86 BPM Standing Heart Rate Post-Dialysis 73 BPM Temperature Pre-Dialysis 98 degF Temperature Post -Dialysis 96 degF November 03, 2023 In-Center Hemodialysis Treatment 0426-42-23A75:14:24.000Z 6714-26-19L02:13:59.000Z BP Sitting (Pre-Dialysis) 125/55 mmHg BP Sitting (Post-Dialysis) 149/67 mmHg Concurrent Access: falseAV [employer] (Left) Arterial BP Standing (Pre-Dialysis) 121/62 mmHg BP Standing (P ost-Dialysis) 119/57 mmHg Sitting Heart Rate Pre-Dialysis 75 BPM Sitting Heart Rate Post-Dialysis 77 BPM Standing Heart Rate Pre-Dialysis 80 BPM Standing Heart Rate Post-Dialysis 70 BPM Temperature Pre-Dialysis 97.3 degF Temperature Post -Dialysis 97.7 degF November 01, 2023 In-Center Hemodialysis Treatment 6062-42-56N68:15:00.000Z 0118-33-50Y51:15:15.000Z BP Sitting (Pre-Dialysis) 164/77 mmHg BP Sitting (Post-Dialysis) 124/49 mmHg Concurrent Access: falseAV [employer] (Left) Arterial BP Standing (Pre-Dialysis) 173/58 mmHg BP Standing (P ost-Dialysis) 126/63 mmHg Sitting Heart Rate Pre-Dialysis 76 BPM Sitting Heart Rate Post-Dialysis 68 BPM Standing Heart Rate Pre-Dialysis 78 BPM Standing Heart Rate Post-Dialysis 67 BPM Temperature Pre-Dialysis 97.6 degF Temperature Post -Dialysis 98.2 degF October 29, 2023 In-Center Hemodialysis Treatment 5891-13-15N28:17:32.000Z 2252-18-16U65:17:32.000Z BP Sitting (Pre-Dialysis) 160/61 mmHg BP Sitting (Post-Dialysis) 148/61 mmHg Concurrent Access: falseAV [employer] (Left) Arterial BP Standing (Pre-Dialysis) 145/71 mmHg Sitting Heart Rate Post-Dialysis 69 BPM Sitting Heart Rate Pre-Dialysis 74 BPM Temperatu re Post-Dialysis 97 degF Standing Heart Rate Pre-Dialysis 75 BPM Temperature Pre-Dialysis 98.2 degF October 27, 2023 In-Center Hemodialysis Treatment 5512-06-81E62:05:04.000Z 5506-24-16S65:09:14.000Z BP Sitting (Pre-Dialysis) 141/65 mmHg BP Sitting (Post-Dialysis) 110/49 mmHg Concurrent Access: falseAV [employer] (Left) Arterial BP Standing (Pre-Dialysis) 145/67 mmHg Sitti ng Heart Rate Post-Dialysis 69 BPM Sitting Heart Rate Pre-Dialysis 79 BPM Temperatu re Post-Dialysis 97.3 degF Standing Heart Rate Pre-Dialysis 82 BPM Temperature Pre-Dialysis 98.1 degF October 25, 2023 In-Center Hemodialysis Treatment 6338-42-03O14:12:00.000Z 1910-26-12T39:12:37.000Z BP Sitting (Pre-Dialysis) 175/56 mmHg BP Sitting (Post-Dialysis) 148/58 mmHg Concurrent Access: falseAV [employer] (Left) Arterial BP Standing (Pre-Dialysis) 152/68 mmHg BP Standing (P ost-Dialysis) 140/55 mmHg Sitting Heart Rate Pre-Dialysis 80 BPM Sitting Heart Rate Post-Dialysis 61 BPM Standing Heart Rate Pre-Dialysis 83 BPM Standing Heart Rate Post-Dialysis 71 BPM Temperature Pre-Dialysis 98.2 degF Temperature Post -Dialysis 98.7 degF October 22, 2023 In-Center Hemodialysis Treatment [id number]:23:30.000Z 0387-93-31Y49:28:38.000Z BP Sitting (Pre-Dialysis) 121/61 mmHg BP Sitting (Post-Dialysis) 120/58 mmHg Concurrent Access: falseAV [employer] (Left) Arterial BP Standing (Pre-Dialysis) 124/65 mmHg BP Standing (P ost-Dialysis) 133/53 mmHg Sitting Heart Rate Pre-Dialysis 70 BPM Sitting Heart Rate Post-Dialysis 65 BPM Standing Heart Rate Pre-Dialysis 77 BPM Standing Heart Rate Post-Dialysis 73 BPM Temperature Pre-Dialysis 97.6 degF Temperature Post -Dialysis 97.5 degF October 20, 2023 In-Center Hemodialysis Treatment [id number]:24:18.000Z 6727-78-82Z25:19:18.000Z BP Sitting (Pre-Dialysis) 119/60 mmHg BP Sitting (Post-Dialysis) 121/52 mmHg Concurrent Access: falseAV [employer] (Left) Arterial BP Standing (Pre-Dialysis) 112/55 mmHg BP Standing (P ost-Dialysis) 133/49 mmHg Sitting Heart Rate Pre-Dialysis 81 BPM Sitting Heart Rate Post-Dialysis 66 BPM Standing Heart Rate Pre-Dialysis 83 BPM Standing Heart Rate Post-Dialysis 69 BPM Temperature Pre-Dialysis 98.2 degF Temperature Post -Dialysis 98 degF October 18, 2023 In-Center Hemodialysis Treatment 0590-21-26R06:26:00.000Z 8745-14-33Z30:30:43.000Z BP Sitting (Pre-Dialysis) 137/50 mmHg BP Sitting (Post-Dialysis) 126/55 mmHg Concurrent Access: falseAV [employer] (Left) Arterial BP Standing (Pre-Dialysis) 100/51 mmHg BP Standing (P ost-Dialysis) 129/54 mmHg Sitting Heart Rate Pre-Dialysis 75 BPM Sitting Heart Rate Post-Dialysis 74 BPM Standing Heart Rate Pre-Dialysis 85 BPM Standing Heart Rate Post-Dialysis 71 BPM Temperature Pre-Dialysis 98 degF Temperature Post -Dialysis 96.8 degF October 15, 2023 In-Center Hemodialysis Treatment 5517-85-63O87:19:56.000Z 0687-31-83S49:32:51.000Z BP Sitting (Pre-Dialysis) 157/60 mmHg BP Sitting (Post-Dialysis) 121/70 mmHg Concurrent Access: falseAV [employer] (Left) Arterial Sitting Heart Rate Pre-Dialysis 72 BPM BP Standi ng (Post-Dialysis) 130/70 mmHg Temperature Pre-Dialysis 98 degF Sitting Heart Ra te Post-Dialysis 76 BPM Standing Heart Rate Post-Rosalba lysis 93 BPM Temperature Post-Dialysis 98 .2 degF October 08, 2023 In-Center Hemodialysis Treatment 1790-51-71S71:03:00.000Z 3029-80-23W16:05:12.000Z BP Sitting (Pre-Dialysis) 142/57 mmHg BP Sitting (Post-Dialysis) 131/58 mmHg Concurrent Access: falseAV [employer] (Left) Arterial BP Standing (Pre-Dialysis) 138/55 mmHg Sitti ng Heart Rate Post-Dialysis 62 BPM Sitting Heart Rate Pre-Dialysis 71 BPM Temperatu re Post-Dialysis 98.1 degF Standing Heart Rate Pre-Dialysis 79 BPM Temperature Pre-Dialysis 97.8 degF October 06, 2023 In-Center Hemodialysis Treatment 6844-55-04Y79:21:39.000Z 1334-35-64L63:23:19.000Z BP Sitting (Pre-Dialysis) 174/73 mmHg BP Sitting (Post-Dialysis) 142/77 mmHg Concurrent Access: falseAV [employer] (Left) Arterial BP Standing (Pre-Dialysis) 154/64 mmHg Sitti ng Heart Rate Post-Dialysis 62 BPM Sitting Heart Rate Pre-Dialysis 69 BPM Temperatu re Post-Dialysis 96.3 degF Standing Heart Rate Pre-Dialysis 71 BPM Temperature Pre-Dialysis 97.6 degF October 04, 2023 In-Center Hemodialysis Treatment 1599-70-51Y07:28:18.000Z 9951-10-73U86:28:43.000Z BP Sitting (Pre-Dialysis) 173/67 mmHg BP Sitting (Post-Dialysis) 149/56 mmHg Concurrent Access: falseAV [employer] (Left) Arterial BP Standing (Pre-Dialysis) 162/68 mmHg BP Standing (P ost-Dialysis) 134/65 mmHg Sitting Heart Rate Pre-Dialysis 79 BPM Sitting Heart Rate Post-Dialysis 73 BPM Standing Heart Rate Pre-Dialysis 80 BPM Standing Heart Rate Post-Dialysis 80 BPM Temperature Pre-Dialysis 98.1 degF Temperature Post -Dialysis 98.3 degF October 01, 2023 In-Center Hemodialysis Treatment [id number]:16:35.000Z 3349-50-68Q64:32:00.000Z BP Sitting (Pre-Dialysis) 137/81 mmHg BP Sitting (Post-Dialysis) 163/68 mmHg Concurrent Access: falseAV [employer] (Left) Arterial BP Standing (Pre-Dialysis) 122/53 mmHg BP Standing (P ost-Dialysis) 136/62 mmHg Sitting Heart Rate Pre-Dialysis 78 BPM Sitting Heart Rate Post-Dialysis 75 BPM Standing Heart Rate Pre-Dialysis 76 BPM Standing Heart Rate Post-Dialysis 75 BPM Temperature Pre-Dialysis 98 degF Temperature Post -Dialysis 97.6 degF September 27, 2023 In-Center Hemodialysis Treatment [id number]:22:00.000Z 8381-30-64S05:22:44.000Z BP Sitting (Pre-Dialysis) 149/63 mmHg BP Sitting (Post-Dialysis) 143/49 mmHg Concurrent Access: falseAV [employer] (Left) Arterial BP Standing (Pre-Dialysis) 155/77 mmHg BP Standing (P ost-Dialysis) 131/60 mmHg Sitting Heart Rate Pre-Dialysis 74 BPM Sitting Heart Rate Post-Dialysis 68 BPM Standing Heart Rate Pre-Dialysis 82 BPM Standing Heart Rate Post-Dialysis 68 BPM Temperature Pre-Dialysis 97.9 degF Temperature Post -Dialysis 98 degF September 24, 2023 In-Center Hemodialysis Treatment 2529-26-96L04:15:00.000Z 4408-36-36H11:14:31.000Z BP Sitting (Pre-Dialysis) 101/56 mmHg BP Sitting (Post-Dialysis) 109/62 mmHg Concurrent Access: falseAV G[employer] (Left) Arterial BP Standing (Pre-Dialysis) 120/60 mmHg BP Standing (P ost-Dialysis) 101/53 mmHg Sitting Heart Rate Pre-Dialysis 70 BPM Sitting Heart Rate Post-Dialysis 63 BPM Standing Heart Rate Pre-Dialysis 67 BPM Standing Heart Rate Post-Dialysis 68 BPM Temperature Pre-Dialysis 97.7 degF Temperature Post -Dialysis 98.2 degF September 22, 2023 In-Center Hemodialysis Treatment [id number]:08:00.000Z 2989-07-25I17:11:01.000Z BP Sitting (Pre-Dialysis) 138/63 mmHg BP Sitting (Post-Dialysis) 108/56 mmHg Concurrent Access: falseAV G[employer]arm (Left) Arterial BP Standing (Pre-Dialysis) 132/57 mmHg BP Standing (P ost-Dialysis) 107/49 mmHg Sitting Heart Rate Pre-Dialysis 79 BPM Sitting Heart Rate Post-Dialysis 63 BPM Standing Heart Rate Pre-Dialysis 75 BPM Standing Heart Rate Post-Dialysis 68 BPM Temperature Pre-Dialysis 98.4 degF Temperature Post -Dialysis 97.5 degF September 20, 2023 In-Center Hemodialysis Treatment 6201-12-32H76:18:44.000Z 3941-29-28I90:19:59.000Z BP Sitting (Pre-Dialysis) 132/57 mmHg BP Sitting (Post-Dialysis) 106/54 mmHg Concurrent Access: falseAV G[employer]arm (Left) Arterial BP Standing (Pre-Dialysis) 125/55 mmHg BP Standing (P ost-Dialysis) 99/50 mmHg Sitting Heart Rate Pre-Dialysis 71 BPM Sitting Heart Rate Post-Dialysis 63 BPM Standing Heart Rate Pre-Dialysis 77 BPM Standing Heart Rate Post-Dialysis 66 BPM Temperature Pre-Dialysis 98.4 degF Temperature Post -Dialysis 98.1 degF September 17, 2023 In-Center Hemodialysis Treatment [id number]:12:22.000Z [id number]:12:22.000Z BP Sitting (Pre-Dialysis) 158/63 mmHg BP Sitting (Post-Dialysis) 139/75 mmHg Concurrent Access: falseAV Graft Forearm (Left) Arterial BP Standing (Pre-Dialysis) 123/65 mmHg BP Standing (P ost-Dialysis) 124/62 mmHg Sitting Heart Rate Pre-Dialysis 71 BPM Sitting Heart Rate Post-Dialysis 73 BPM Standing Heart Rate Pre-Dialysis 74 BPM Standing Heart Rate Post-Dialysis 71 BPM Temperature Pre-Dialysis 98.2 degF Temperature Post -Dialysis 97.5 degF September 15, 2023 In-Center Hemodialysis Treatment 350 mL/min 600 mL/min Concurrent Access: false September 13, 2023 In-Center Hemodialysis Treatment 20 24 -0 6- 04 T1 0: 20 :3 8. 00 0Z 20 24 -0 6- 04 T1 3: 23 :0 8. 00 0Z BP Sitting (Pre-Dial ysis) 134/57 mmHg BP Sitting (Post-Rosalba lysis) 121/55 mmHg Concurrent Access: falseAV Graft Forearm (Left) Arterial BP Standing (Pre-Dialysis) 121/52 mmHg BP Standing (P ost-Dialysis) 113/51 mmHg Sitting Heart Rate Pre-Dialysis 82 BPM Sitting Heart Rate Post-Dialysis 72 BPM Standing Heart Rate Pre-Dialysis 82 BPM Standing Heart Rate Post-Dialysis 79 BPM Temperature Pre-Dialysis 98.2 degF Temperature Post -Dialysis 98 degF September 10, 2023 In-Center Hemodialysis Treatment 2048-17-08E56:10:16.000Z 3771-43-27P19:10:41.000Z BP Sitting (Pre-Dialysis) 143/59 mmHg BP Sitting (Post-Dialysis) 126/96 mmHg Concurrent Access: falseAV Graft Forearm (Left) Arterial BP Standing (Pre-Dialysis) 130/69 mmHg BP Standing (P ost-Dialysis) 149/60 mmHg Sitting Heart Rate Pre-Dialysis 74 BPM Sitting Heart Rate Post-Dialysis 80 BPM Standing Heart Rate Pre-Dialysis 82 BPM Standing Heart Rate Post-Dialysis 77 BPM Temperature Pre-Dialysis 98.2 degF Temperature Post -Dialysis 98.2 degF September 08, 2023 In-Center Hemodialysis Treatment [id number]:30:00.000Z 0300-30-70F67:35:49.000Z BP Sitting (Pre-Dialysis) 137/61 mmHg BP Sitting (Post-Dialysis) 113/45 mmHg Concurrent Access: falseAV Graft Forearm (Left) Arterial BP Standing (Pre-Dialysis) 157/72 mmHg Sitti ng Heart Rate Post-Dialysis 75 BPM Sitting Heart Rate Pre-Dialysis 75 BPM Temperatu re Post-Dialysis 97.4 degF Standing Heart Rate Pre-Dialysis 72 BPM Temperature Pre-Dialysis 97.3 degF September 06, 2023 In-Center Hemodialysis Treatment [id number]:11:00.000Z 1862-08-20V07:29:18.000Z BP Sitting (Pre-Dialysis) 131/55 mmHg BP Sitting (Post-Dialysis) 153/60 mmHg Concurrent Access: falseAV Graft Forearm (Left) Arterial BP Standing (Pre-Dialysis) 135/54 mmHg BP Standing (P ost-Dialysis) 138/61 mmHg Sitting Heart Rate Pre-Dialysis 75 BPM Sitting Heart Rate Post-Dialysis 75 BPM Standing Heart Rate Pre-Dialysis 85 BPM Standing Heart Rate Post-Dialysis 89 BPM Temperature Pre-Dialysis 98.3 degF September 01, 2023 In-Center Hemodialysis Treatment [id number]:13:17.000Z 2580-16-38R69:13:17.000Z BP Sitting (Pre-Dialysis) 145/65 mmHg BP Sitting (Post-Dialysis) 147/65 mmHg Concurrent Access: falseAV Graft Forearm (Left) Arterial BP Standing (Pre-Dialysis) 128/68 mmHg BP Standing (P ost-Dialysis) 137/58 mmHg Sitting Heart Rate Pre-Dialysis 73 BPM Sitting Heart Rate Post-Dialysis 72 BPM Standing Heart Rate Pre-Dialysis 83 BPM Standing Heart Rate Post-Dialysis 73 BPM Temperature Pre-Dialysis 98 degF Temperature Post -Dialysis 98.2 degF August 30, 2023 In-Center Hemodialysis Treatment [id number]:19:00.000Z 4902-22-14W85:18:00.000Z BP Sitting (Pre-Dialysis) 165/69 mmHg BP Sitting (Post-Dialysis) 137/55 mmHg Concurrent Access: falseAV Graft Forearm (Left) Arterial BP Standing (Pre-Dialysis) 156/71 mmHg BP Standing (P ost-Dialysis) 123/48 mmHg Sitting Heart Rate Pre-Dialysis 78 BPM Sitting Heart Rate Post-Dialysis 67 BPM Standing Heart Rate Pre-Dialysis 78 BPM Standing Heart Rate Post-Dialysis 69 BPM Temperature Pre-Dialysis 98.2 degF Temperature Post -Dialysis 98.3 degF August 27, 2023 In-Center Hemodialysis Treatment [id number]:14:00.000Z 0679-35-61D25:14:25.000Z BP Sitting (Pre-Dialysis) 160/74 mmHg BP Sitting (Post-Dialysis) 135/49 mmHg Concurrent Access: falseAV Graft Forearm (Left) Arterial BP Standing (Pre-Dialysis) 165/73 mmHg BP Standing (P ost-Dialysis) 134/64 mmHg Sitting Heart Rate Pre-Dialysis 81 BPM Sitting Heart Rate Post-Dialysis 74 BPM Standing Heart Rate Pre-Dialysis 82 BPM Standing Heart Rate Post-Dialysis 76 BPM Temperature Pre-Dialysis 98.3 degF Temperature Post -Dialysis 97.4 degF August 25, 2023 In-Center Hemodialysis Treatment [id number]:18:25.000Z [id number]:18:25.000Z BP Sitting (Pre-Dialysis) 190/79 mmHg BP Sitting (Post-Dialysis) 122/55 mmHg Concurrent Access: falseAV Graft Forearm (Left) Arterial BP Standing (Pre-Dialysis) 178/78 mmHg BP Standing (P ost-Dialysis) 117/53 mmHg Sitting Heart Rate Pre-Dialysis 78 BPM Sitting Heart Rate Post-Dialysis 69 BPM Standing Heart Rate Pre-Dialysis 79 BPM Standing Heart Rate Post-Dialysis 73 BPM Temperature Pre-Dialysis 98.4 degF Temperature Post -Dialysis 98.1 degF August 23, 2023 In-Center Hemodialysis Treatment [id number]:12:52.000Z 6784-58-54D96:12:00.000Z BP Sitting (Pre-Dialysis) 173/64 mmHg BP Sitting (Post-Dialysis) 126/57 mmHg Concurrent Access: falseAV Graft Forearm (Left) Arterial BP Standing (Pre-Dialysis) 188/76 mmHg BP Standing (P ost-Dialysis) 128/53 mmHg Sitting Heart Rate Pre-Dialysis 77 BPM Sitting Heart Rate Post-Dialysis 81 BPM Standing Heart Rate Pre-Dialysis 83 BPM Standing Heart Rate Post-Dialysis 79 BPM Temperature Pre-Dialysis 98.2 degF Temperature Post -Dialysis 98 degF August 18, 2023 In-Center Hemodialysis Treatment [id number]:27:00.000Z [id number]:27:49.000Z BP Sitting (Pre-Dialysis) 142/55 mmHg BP Sitting (Post-Dialysis) 122/48 mmHg Concurrent Access: falseAV Graft Forearm (Left) Arterial BP Standing (Pre-Dialysis) 123/52 mmHg BP Standing (P ost-Dialysis) 122/53 mmHg Sitting Heart Rate Pre-Dialysis 68 BPM Sitting Heart Rate Post-Dialysis 60 BPM Standing Heart Rate Pre-Dialysis 67 BPM Standing Heart Rate Post-Dialysis 67 BPM Temperature Pre-Dialysis 97.7 degF Temperature Post -Dialysis 97.3 degF August 16, 2023 In-Center Hemodialysis Treatment [id number]:17:00.000Z [id number]:17:53.000Z BP Sitting (Pre-Dialysis) 139/60 mmHg BP Sitting (Post-Dialysis) 123/69 mmHg Concurrent Access: falseAV Graft Forearm (Left) Arterial BP Standing (Pre-Dialysis) 136/49 mmHg BP Standing (P ost-Dialysis) 123/53 mmHg Sitting Heart Rate Pre-Dialysis 66 BPM Sitting Heart Rate Post-Dialysis 62 BPM Standing Heart Rate Pre-Dialysis 69 BPM Standing Heart Rate Post-Dialysis 65 BPM Temperature Pre-Dialysis 97.5 degF Temperature Post -Dialysis 97.6 degF August 13, 2023 In-Center Hemodialysis Treatment 8135-45-15V39:21:00.000Z [id number]:21:22.000Z BP Sitting (Pre-Dialysis) 167/94 mmHg BP Sitting (Post-Dialysis) 147/85 mmHg Concurrent Access: falseAV Graft Forearm (Left) Arterial BP Standing (Pre-Dialysis) 162/72 mmHg BP Standing (P ost-Dialysis) 130/59 mmHg Sitting Heart Rate Pre-Dialysis 75 BPM Sitting Heart Rate Post-Dialysis 67 BPM Standing Heart Rate Pre-Dialysis 81 BPM Standing Heart Rate Post-Dialysis 69 BPM Temperature Pre-Dialysis 97.8 degF August 11, 2023 In-Center Hemodialysis Treatment [id number]:13:00.000Z 5513-36-15J78:13:50.000Z BP Sitting (Pre-Dialysis) 126/53 mmHg BP Sitting (Post-Dialysis) 119/66 mmHg Concurrent Access: falseAV Graft Forearm (Left) Arterial BP Standing (Pre-Dialysis) 148/67 mmHg Sitti ng Heart Rate Post-Dialysis 87 BPM Sitting Heart Rate Pre-Dialysis 68 BPM Temperatu re Post-Dialysis 98.5 degF Standing Heart Rate Pre-Dialysis 77 BPM Temperature Pre-Dialysis 97.9 degF August 09, 2023 In-Center Hemodialysis Treatment 9061-08-42Y39:14:00.000Z 0512-57-70F92:15:03.000Z BP Sitting (Pre-Dialysis) 134/62 mmHg BP Sitting (Post-Dialysis) 152/69 mmHg Concurrent Access: falseAV Graft Forearm (Left) Arterial BP Standing (Pre-Dialysis) 125/61 mmHg BP Standing (P ost-Dialysis) 154/60 mmHg Sitting Heart Rate Pre-Dialysis 65 BPM Sitting Heart Rate Post-Dialysis 73 BPM Standing Heart Rate Pre-Dialysis 79 BPM Standing Heart Rate Post-Dialysis 78 BPM Temperature Pre-Dialysis 98 degF Temperature Post -Dialysis 98.3 degF August 04, 2023 In-Center Hemodialysis Treatment 3046-29-22Y55:14:00.000Z 1962-68-04V48:25:56.000Z BP Sitting (Pre-Dialysis) 154/65 mmHg BP Sitting (Post-Dialysis) 170/66 mmHg Concurrent Access: falseAV Graft Forearm (Left) Arterial BP Standing (Pre-Dialysis) 164/69 mmHg BP Standing (P ost-Dialysis) 163/69 mmHg Sitting Heart Rate Pre-Dialysis 80 BPM Sitting Heart Rate Post-Dialysis 74 BPM Standing Heart Rate Pre-Dialysis 87 BPM Standing Heart Rate Post-Dialysis 75 BPM Temperature Pre-Dialysis 97 degF Temperature Post -Dialysis 98.4 degF August 02, 2023 In-Center Hemodialysis Treatment 0337-53-56R12:22:00.000Z 7057-94-76O69:22:33.000Z BP Sitting (Pre-Dialysis) 143/65 mmHg BP Sitting (Post-Dialysis) 148/57 mmHg Concurrent Access: falseAV Graft Forearm (Left) Arterial BP Standing (Pre-Dialysis) 133/64 mmHg BP Standing (P ost-Dialysis) 142/69 mmHg Sitting Heart Rate Pre-Dialysis 76 BPM Sitting Heart Rate Post-Dialysis 65 BPM Standing Heart Rate Pre-Dialysis 75 BPM Standing Heart Rate Post-Dialysis 72 BPM Temperature Pre-Dialysis 97.7 degF Temperature Post -Dialysis 98.2 degF July 30, 2023 In-Center Hemodialysis Treatment [id number]:11:00.000Z 1275-91-43F48:11:49.000Z BP Sitting (Pre-Dialysis) 187/77 mmHg BP Sitting (Post-Dialysis) 163/71 mmHg Concurrent Access: falseAV Graft Forearm (Left) Arterial BP Standing (Pre-Dialysis) 174/81 mmHg BP Standing (P ost-Dialysis) 154/71 mmHg Sitting Heart Rate Pre-Dialysis 75 BPM Sitting Heart Rate Post-Dialysis 77 BPM Standing Heart Rate Pre-Dialysis 79 BPM Standing Heart Rate Post-Dialysis 72 BPM Temperature Pre-Dialysis 98.3 degF Temperature Post -Dialysis 98.5 degF July 28, 2023 In-Center Hemodialysis Treatment [id number]:14:15.000Z 6254-31-28U22:21:20.000Z BP Sitting (Pre-Dialysis) 138/59 mmHg BP Sitting (Post-Dialysis) 170/67 mmHg Concurrent Access: falseAV Graft Forearm (Left) Arterial BP Standing (Pre-Dialysis) 137/63 mmHg Sitti ng Heart Rate Post-Dialysis 73 BPM Sitting Heart Rate Pre-Dialysis 76 BPM Temperatu re Post-Dialysis 97.9 degF Standing Heart Rate Pre-Dialysis 82 BPM Temperature Pre-Dialysis 97.3 degF July 26, 2023 In-Center Hemodialysis Treatment [id number]:16:23.000Z [id number]:18:53.000Z BP Sitting (Pre-Dialysis) 177/76 mmHg BP Sitting (Post-Dialysis) 144/59 mmHg Concurrent Access: falseAV Graft Forearm (Left) Arterial BP Standing (Pre-Dialysis) 184/74 mmHg Sitti ng Heart Rate Post-Dialysis 68 BPM Sitting Heart Rate Pre-Dialysis 77 BPM Temperatu re Post-Dialysis 98.3 degF Standing Heart Rate Pre-Dialysis 86 BPM Temperature Pre-Dialysis 97.7 degF July 23, 2023 In-Center Hemodialysis Treatment 1763-73-63J79:13:13.000Z 9917-33-08C81:21:08.000Z BP Sitting (Pre-Dialysis) 142/64 mmHg BP Sitting (Post-Dialysis) 153/67 mmHg Concurrent Access: falseAV Graft Forearm (Left) Arterial BP Standing (Pre-Dialysis) 142/61 mmHg BP Standing (P ost-Dialysis) 150/70 mmHg Sitting Heart Rate Pre-Dialysis 76 BPM Sitting Heart Rate Post-Dialysis 74 BPM Standing Heart Rate Pre-Dialysis 81 BPM Standing Heart Rate Post-Dialysis 77 BPM Temperature Pre-Dialysis 98.2 degF Temperature Post -Dialysis 98.4 degF July 21, 2023 In-Center Hemodialysis Treatment [id number]:21:30.000Z 8829-55-93D32:21:05.000Z BP Sitting (Pre-Dialysis) 146/67 mmHg BP Sitting (Post-Dialysis) 138/59 mmHg Concurrent Access: falseAV Graft Forearm (Left) Arterial BP Standing (Pre-Dialysis) 135/65 mmHg BP Standing (P ost-Dialysis) 125/58 mmHg Sitting Heart Rate Pre-Dialysis 77 BPM Sitting Heart Rate Post-Dialysis 70 BPM Standing Heart Rate Pre-Dialysis 79 BPM Standing Heart Rate Post-Dialysis 71 BPM Temperature Pre-Dialysis 98.1 degF Temperature Post -Dialysis 97.9 degF July 19, 2023 In-Center Hemodialysis Treatment 0834-74-10D13:21:33.000Z 2771-81-27L18:21:00.000Z BP Sitting (Pre-Dialysis) 184/75 mmHg BP Sitting (Post-Dialysis) 152/73 mmHg Concurrent Access: falseAV Graft Forearm (Left) Arterial BP Standing (Pre-Dialysis) 167/70 mmHg BP Standing (P ost-Dialysis) 131/60 mmHg Sitting Heart Rate Pre-Dialysis 71 BPM Sitting Heart Rate Post-Dialysis 64 BPM Standing Heart Rate Pre-Dialysis 74 BPM Standing Heart Rate Post-Dialysis 71 BPM Temperature Pre-Dialysis 98.5 degF Temperature Post -Dialysis 97.9 degF July 16, 2023 In-Center Hemodialysis Treatment [id number]:18:14.000Z 9940-87-04G86:28:39.000Z BP Sitting (Pre-Dialysis) 116/52 mmHg BP Sitting (Post-Dialysis) 156/67 mmHg Concurrent Access: falseAV Graft Forearm (Left) Arterial BP Standing (Pre-Dialysis) 113/56 mmHg BP Standing (P ost-Dialysis) 148/64 mmHg Sitting Heart Rate Pre-Dialysis 73 BPM Sitting Heart Rate Post-Dialysis 66 BPM Standing Heart Rate Pre-Dialysis 76 BPM Standing Heart Rate Post-Dialysis 68 BPM Temperature Pre-Dialysis 98 degF Temperature Post -Dialysis 98 degF July 14, 2023 In-Center Hemodialysis Treatment [id number]:17:36.000Z [id number]:18:26.000Z BP Sitting (Pre-Dialysis) 156/74 mmHg BP Sitting (Post-Dialysis) 142/68 mmHg Concurrent Access: falseAV Graft Forearm (Left) Arterial BP Standing (Pre-Dialysis) 142/65 mmHg BP Standing (P ost-Dialysis) 129/50 mmHg Sitting Heart Rate Pre-Dialysis 82 BPM Sitting Heart Rate Post-Dialysis 73 BPM Standing Heart Rate Pre-Dialysis 85 BPM Standing Heart Rate Post-Dialysis 78 BPM Temperature Pre-Dialysis 98.1 degF Temperature Post -Dialysis 98.1 degF July 12, 2023 In-Center Hemodialysis Treatment [id number]:20:00.000Z 8405-10-58K26:20:00.000Z BP Sitting (Pre-Dialysis) 115/46 mmHg BP Sitting (Post-Dialysis) 135/67 mmHg Concurrent Access: falseAV Graft Forearm (Left) Arterial BP Standing (Pre-Dialysis) 127/56 mmHg BP Standing (P ost-Dialysis) 127/55 mmHg Sitting Heart Rate Pre-Dialysis 72 BPM Sitting Heart Rate Post-Dialysis 67 BPM Standing Heart Rate Pre-Dialysis 84 BPM Standing Heart Rate Post-Dialysis 70 BPM Temperature Pre-Dialysis 98.1 degF Temperature Post -Dialysis 98.1 degF July 09, 2023 In-Center Hemodialysis Treatment [id number]:18:00.000Z 4081-21-70O11:29:15.000Z BP Sitting (Pre-Dialysis) 149/76 mmHg BP Sitting (Post-Dialysis) 124/53 mmHg Concurrent Access: falseAV Graft Forearm (Left) Arterial BP Standing (Pre-Dialysis) 154/70 mmHg Sitti ng Heart Rate Post-Dialysis 70 BPM Sitting Heart Rate Pre-Dialysis 72 BPM Temperatu re Post-Dialysis 98.2 degF Standing Heart Rate Pre-Dialysis 78 BPM Temperature Pre-Dialysis 97.5 degF July 07, 2023 In-Center Hemodialysis Treatment [id number]:20:00.000Z 1053-69-21Q10:22:14.000Z BP Sitting (Pre-Dialysis) 115/52 mmHg BP Sitting (Post-Dialysis) 139/64 mmHg Concurrent Access: falseAV Graft Forearm (Left) Arterial BP Standing (Pre-Dialysis) 121/58 mmHg Sitti ng Heart Rate Post-Dialysis 72 BPM Sitting Heart Rate Pre-Dialysis 70 BPM Temperatu re Post-Dialysis 97.2 degF Standing Heart Rate Pre-Dialysis 76 BPM Temperature Pre-Dialysis 97.6 degF July 02, 2023 In-Center Hemodialysis Treatment [id number]:15:00.000Z [id number]:21:14.000Z BP Sitting (Pre-Dialysis) 129/63 mmHg BP Sitting (Post-Dialysis) 157/64 mmHg Concurrent Access: falseAV Graft Forearm (Left) Arterial BP Standing (Pre-Dialysis) 109/61 mmHg BP Standing (P ost-Dialysis) 138/59 mmHg Sitting Heart Rate Pre-Dialysis 80 BPM Sitting Heart Rate Post-Dialysis 75 BPM Standing Heart Rate Pre-Dialysis 85 BPM Standing Heart Rate Post-Dialysis 75 BPM Temperature Pre-Dialysis 97.9 degF Temperature Post -Dialysis 97.5 degF June 30, 2023 In-Center Hemodialysis Treatment [id number]:13:00.000Z 3773-70-07P19:13:41.000Z BP Sitting (Pre-Dialysis) 163/78 mmHg BP Sitting (Post-Dialysis) 136/66 mmHg Concurrent Access: falseAV Graft Forearm (Left) Arterial BP Standing (Pre-Dialysis) 152/74 mmHg BP Standing (P ost-Dialysis) 144/63 mmHg Sitting Heart Rate Pre-Dialysis 69 BPM Sitting Heart Rate Post-Dialysis 73 BPM Standing Heart Rate Pre-Dialysis 84 BPM Standing Heart Rate Post-Dialysis 76 BPM Temperature Pre-Dialysis 97.6 degF Temperature Post -Dialysis 98 degF June 28, 2023 In-Center Hemodialysis Treatment [id number]:21:59.000Z 7453-23-01T44:22:24.000Z BP Sitting (Pre-Dialysis) 117/65 mmHg BP Sitting (Post-Dialysis) 137/57 mmHg Concurrent Access: falseAV Graft Forearm (Left) Arterial BP Standing (Pre-Dialysis) 124/56 mmHg BP Standing (P ost-Dialysis) 139/61 mmHg Sitting Heart Rate Pre-Dialysis 76 BPM Sitting Heart Rate Post-Dialysis 70 BPM Standing Heart Rate Pre-Dialysis 75 BPM Standing Heart Rate Post-Dialysis 72 BPM Temperature Pre-Dialysis 98.3 degF Temperature Post -Dialysis 98 degF June 25, 2023 In-Center Hemodialysis Treatment [id number]:14:46.000Z [id number]:14:21.000Z BP Sitting (Pre-Dialysis) 157/70 mmHg BP Sitting (Post-Dialysis) 136/68 mmHg Concurrent Access: falseAV Graft Forearm (Left) Arterial BP Standing (Pre-Dialysis) 140/65 mmHg BP Standing (P ost-Dialysis) 128/54 mmHg Sitting Heart Rate Pre-Dialysis 79 BPM Sitting Heart Rate Post-Dialysis 75 BPM Standing Heart Rate Pre-Dialysis 87 BPM Standing Heart Rate Post-Dialysis 76 BPM Temperature Pre-Dialysis 98.2 degF Temperature Post -Dialysis 97.9 degF June 23, 2023 In-Center Hemodialysis Treatment [id number]:18:23.000Z 2429-02-03K51:20:03.000Z BP Sitting (Pre-Dialysis) 118/64 mmHg BP Sitting (Post-Dialysis) 133/60 mmHg Concurrent Access: falseAV Graft Forearm (Left) Arterial BP Standing (Pre-Dialysis) 110/52 mmHg Sitti ng Heart Rate Post-Dialysis 74 BPM Sitting Heart Rate Pre-Dialysis 81 BPM Temperatu re Post-Dialysis 97.9 degF Standing Heart Rate Pre-Dialysis 86 BPM Temperature Pre-Dialysis 97.9 degF June 21, 2023 In-Center Hemodialysis Treatment [id number]:16:54.000Z 9972-46-28G16:16:54.000Z BP Sitting (Pre-Dialysis) 129/61 mmHg BP Sitting (Post-Dialysis) 146/59 mmHg Concurrent Access: falseAV Graft Forearm (Left) Arterial BP Standing (Pre-Dialysis) 120/55 mmHg BP Standing (P ost-Dialysis) 127/51 mmHg Sitting Heart Rate Pre-Dialysis 85 BPM Sitting Heart Rate Post-Dialysis 77 BPM Standing Heart Rate Pre-Dialysis 91 BPM Standing Heart Rate Post-Dialysis 81 BPM Temperature Pre-Dialysis 98.1 degF Temperature Post -Dialysis 98.7 degF June 18, 2023 In-Center Hemodialysis Treatment [id number]:19:01.000Z [id number]:20:16.000Z BP Sitting (Pre-Dialysis) 130/54 mmHg BP Sitting (Post-Dialysis) 154/64 mmHg Concurrent Access: falseAV Graft Forearm (Left) Arterial BP Standing (Pre-Dialysis) 104/58 mmHg BP Standing (P ost-Dialysis) 133/55 mmHg Sitting Heart Rate Pre-Dialysis 76 BPM Sitting Heart Rate Post-Dialysis 77 BPM Standing Heart Rate Pre-Dialysis 84 BPM Standing Heart Rate Post-Dialysis 75 BPM Temperature Pre-Dialysis 97.3 degF Temperature Post -Dialysis 98.2 degF June 16, 2023 In-Center Hemodialysis Treatment [id number]:15:03.000Z [id number]:14:30.000Z BP Sitting (Pre-Dialysis) 149/83 mmHg BP Sitting (Post-Dialysis) 145/52 mmHg Concurrent Access: falseAV Graft Forearm (Left) Arterial BP Standing (Pre-Dialysis) 150/71 mmHg BP Standing (P ost-Dialysis) 131/67 mmHg Sitting Heart Rate Pre-Dialysis 79 BPM Sitting Heart Rate Post-Dialysis 71 BPM Standing Heart Rate Pre-Dialysis 78 BPM Standing Heart Rate Post-Dialysis 76 BPM Temperature Pre-Dialysis 97.9 degF Temperature Post -Dialysis 98.6 degF June 14, 2023 In-Center Hemodialysis Treatment [id number]:14:00.000Z [id number]:14:32.000Z BP Sitting (Pre-Dialysis) 138/59 mmHg BP Sitting (Post-Dialysis) 133/66 mmHg Concurrent Access: falseAV Graft Forearm (Left) Arterial BP Standing (Pre-Dialysis) 135/62 mmHg BP Standing (P ost-Dialysis) 133/59 mmHg Sitting Heart Rate Pre-Dialysis 81 BPM Sitting Heart Rate Post-Dialysis 67 BPM Standing Heart Rate Pre-Dialysis 81 BPM Standing Heart Rate Post-Dialysis 71 BPM Temperature Pre-Dialysis 97.3 degF Temperature Post -Dialysis 97.9 degF June 11, 2023 In-Center Hemodialysis Treatment [id number]:14:41.000Z [id number]:14:41.000Z BP Sitting (Pre-Dialysis) 202/85 mmHg BP Sitting (Post-Dialysis) 208/89 mmHg Concurrent Access: falseAV Graft Forearm (Left) Arterial BP Standing (Pre-Dialysis) 197/82 mmHg BP Standing (P ost-Dialysis) 196/84 mmHg Sitting Heart Rate Pre-Dialysis 72 BPM Sitting Heart Rate Post-Dialysis 64 BPM Standing Heart Rate Pre-Dialysis 74 BPM Standing Heart Rate Post-Dialysis 70 BPM Temperature Pre-Dialysis 97.2 degF Temperature Post -Dialysis 97.2 degF June 09, 2023 In-Center Hemodialysis Treatment [id number]:16:34.000Z [id number]:46:34.000Z BP Sitting (Pre-Dialysis) 172/81 mmHg BP Sitting (Post-Dialysis) 157/71 mmHg Concurrent Access: falseAV Graft Forearm (Left) Arterial BP Standing (Pre-Dialysis) 191/76 mmHg BP Standing (P ost-Dialysis) 165/71 mmHg Sitting Heart Rate Pre-Dialysis 65 BPM Sitting Heart Rate Post-Dialysis 58 BPM Standing Heart Rate Pre-Dialysis 69 BPM Standing Heart Rate Post-Dialysis 73 BPM Temperature Pre-Dialysis 98 degF Temperature Post -Dialysis 98 degF June 07, 2023 In-Center Hemodialysis Treatment [id number]:16:25.000Z [id number]:17:15.000Z BP Sitting (Pre-Dialysis) 194/89 mmHg BP Sitting (Post-Dialysis) 211/87 mmHg Concurrent Access: falseAV Graft Forearm (Left) Arterial BP Standing (Pre-Dialysis) 197/86 mmHg Sitti ng Heart Rate Post-Dialysis 71 BPM Sitting Heart Rate Pre-Dialysis 69 BPM Temperatu re Post-Dialysis 98.2 degF Standing Heart Rate Pre-Dialysis 75 BPM Temperature Pre-Dialysis 98.2 degF June 04, 2023 In-Center Hemodialysis Treatment 4722-58-07F32:22:15.000Z 3768-80-47C06:28:05.000Z BP Sitting (Pre-Dialysis) 153/74 mmHg BP Sitting (Post-Dialysis) 147/69 mmHg Concurrent Access: falseAV Graft Forearm (Left) Arterial BP Standing (Pre-Dialysis) 150/80 mmHg BP Standing (P ost-Dialysis) 175/74 mmHg Sitting Heart Rate Pre-Dialysis 73 BPM Sitting Heart Rate Post-Dialysis 73 BPM Standing Heart Rate Pre-Dialysis 74 BPM Standing Heart Rate Post-Dialysis 74 BPM Temperature Pre-Dialysis 97.2 degF Temperature Post -Dialysis 97.6 degF June 02, 2023 In-Center Hemodialysis Treatment 5494-00-12J05:11:24.000Z 7606-19-20Q77:14:19.000Z BP Sitting (Pre-Dialysis) 191/78 mmHg BP Sitting (Post-Dialysis) 190/64 mmHg Concurrent Access: falseAV Graft Forearm (Left) Arterial BP Standing (Pre-Dialysis) 177/74 mmHg Sitti ng Heart Rate Post-Dialysis 78 BPM Sitting Heart Rate Pre-Dialysis 82 BPM Temperatu re Post-Dialysis 98.1 degF Standing Heart Rate Pre-Dialysis 85 BPM Temperature Pre-Dialysis 98.4 degF May 31, 2023 In-Center Hemodialysis Treatment [id number]:22:00.000Z 0892-60-55Z38:26:43.000Z BP Sitting (Pre-Dialysis) 208/102 mmHg BP Sitting (Post-Dialysis) 163/85 mmHg Concurrent Access: falseAV Graft Forearm (Left) Arterial BP Standing (Pre-Dialysis) 206/94 mmHg Sitti ng Heart Rate Post-Dialysis 71 BPM Sitting Heart Rate Pre-Dialysis 86 BPM Temperatu re Post-Dialysis 97.6 degF Standing Heart Rate Pre-Dialysis 91 BPM Temperature Pre-Dialysis 98 degF May 26, 2023 In-Center Hemodialysis Treatment [id number]:24:22.000Z 9166-36-10W11:24:22.000Z BP Sitting (Pre-Dialysis) 181/74 mmHg BP Sitting (Post-Dialysis) 200/77 mmHg Concurrent Access: falseAV Graft Forearm (Left) Arterial BP Standing (Pre-Dialysis) 153/68 mmHg BP Standing (P ost-Dialysis) 188/91 mmHg Sitting Heart Rate Pre-Dialysis 70 BPM Sitting Heart Rate Post-Dialysis 71 BPM Standing Heart Rate Pre-Dialysis 74 BPM Standing Heart Rate Post-Dialysis 75 BPM Temperature Pre-Dialysis 98.3 degF Temperature Post -Dialysis 97.3 degF May 24, 2023 In-Center Hemodialysis Treatment [id number]:18:35.000Z [id number]:20:15.000Z BP Sitting (Pre-Dialysis) 162/78 mmHg BP Sitting (Post-Dialysis) 185/80 mmHg Concurrent Access: falseAV Graft Forearm (Left) Arterial BP Standing (Pre-Dialysis) 158/75 mmHg BP Standing (P ost-Dialysis) 153/63 mmHg Sitting Heart Rate Pre-Dialysis 75 BPM Sitting Heart Rate Post-Dialysis 68 BPM Standing Heart Rate Pre-Dialysis 80 BPM Standing Heart Rate Post-Dialysis 74 BPM Temperature Pre-Dialysis 98.1 degF Temperature Post -Dialysis 97.6 degF May 21, 2023 In-Center Hemodialysis Treatment [id number]:15:44.000Z [id number]:15:44.000Z BP Sitting (Pre-Dialysis) 54/61 mmHg BP Sitting (Post-Dialysis) 175/63 mmHg Concurrent Access: falseAV Graft Forearm (Left) Arterial BP Standing (Pre-Dialysis) 136/78 mmHg BP Standing (P ost-Dialysis) 161/66 mmHg Sitting Heart Rate Pre-Dialysis 66 BPM Sitting Heart Rate Post-Dialysis 70 BPM Standing Heart Rate Pre-Dialysis 78 BPM Standing Heart Rate Post-Dialysis 76 BPM Temperature Pre-Dialysis 98 degF Temperature Post -Dialysis 98.4 degF May 19, 2023 In-Center Hemodialysis Treatment 2092-11-06K04:23:07.000Z [id number]:23:32.000Z BP Sitting (Pre-Dialysis) 148/80 mmHg BP Sitting (Post-Dialysis) 189/88 mmHg Concurrent Access: falseAV Graft Forearm (Left) Arterial BP Standing (Pre-Dialysis) 178/86 mmHg BP Standing (P ost-Dialysis) 177/89 mmHg Sitting Heart Rate Pre-Dialysis 71 BPM Sitting Heart Rate Post-Dialysis 79 BPM Standing Heart Rate Pre-Dialysis 85 BPM Standing Heart Rate Post-Dialysis 92 BPM Temperature Pre-Dialysis 97.6 degF Temperature Post -Dialysis 97.7 degF May 17, 2023 Additional Day Of Dialysis Treatment [id number]:22:17.000Z [id number]:22:17.000Z BP Sitting (Pre-Dialysis) 173/79 mmHg BP Sitting (Post-Dialysis) 193/83 mmHg Concurrent Access: falseAV Graft Forearm (Left) Arterial BP Standing (Pre-Dialysis) 164/72 mmHg Sitti ng Heart Rate Post-Dialysis 71 BPM Sitting Heart Rate Pre-Dialysis 78 BPM Temperatu re Post-Dialysis 98.1 degF Standing Heart Rate Pre-Dialysis 86 BPM Temperature Pre-Dialysis 97.7 degF May 16, 2023 In-Center Hemodialysis Treatment [id number]:45:00.000Z 8905-18-55B68:46:36.000Z BP Sitting (Pre-Dialysis) 198/94 mmHg BP Sitting (Post-Dialysis) 195/82 mmHg Concurrent Access: falseAV Graft Forearm (Left) Arterial BP Standing (Pre-Dialysis) 198/88 mmHg Sitti ng Heart Rate Post-Dialysis 76 BPM Sitting Heart Rate Pre-Dialysis 82 BPM Temperatu re Post-Dialysis 97.3 degF Standing Heart Rate Pre-Dialysis 91 BPM Temperature Pre-Dialysis 97.2 degF May 10, 2023 In-Center Hemodialysis Treatment [id number]:12:00.000Z 5083-18-26V46:12:36.000Z BP Sitting (Pre-Dialysis) 181/82 mmHg BP Sitting (Post-Dialysis) 193/76 mmHg Concurrent Access: falseAV Graft Forearm (Left) Arterial BP Standing (Pre-Dialysis) 190/90 mmHg BP Standing (P ost-Dialysis) 158/64 mmHg Sitting Heart Rate Pre-Dialysis 86 BPM Sitting Heart Rate Post-Dialysis 72 BPM Standing Heart Rate Pre-Dialysis 89 BPM Standing Heart Rate Post-Dialysis 72 BPM Temperature Pre-Dialysis 97.3 degF Temperature Post -Dialysis 97.6 degF May 07, 2023 In-Center Hemodialysis Treatment [id number]:08:51.000Z [id number]:08:49.000Z BP Sitting (Pre-Dialysis) 171/72 mmHg BP Sitting (Post-Dialysis) 196/61 mmHg Concurrent Access: falseAV Graft Forearm (Left) Arterial BP Standing (Pre-Dialysis) 185/83 mmHg BP Standing (P ost-Dialysis) 200/83 mmHg Sitting Heart Rate Pre-Dialysis 76 BPM Sitting Heart Rate Post-Dialysis 70 BPM Standing Heart Rate Pre-Dialysis 84 BPM Standing Heart Rate Post-Dialysis 73 BPM Temperature Pre-Dialysis 98 degF Temperature Post -Dialysis 98.1 degF May 05, 2023 In-Center Hemodialysis Treatment [id number]:22:23.000Z [id number]:29:53.000Z BP Sitting (Pre-Dialysis) 173/74 mmHg BP Sitting (Post-Dialysis) 196/74 mmHg Concurrent Access: falseAV Graft Forearm (Left) Arterial BP Standing (Pre-Dialysis) 175/73 mmHg BP Standing (P ost-Dialysis) 178/81 mmHg Sitting Heart Rate Pre-Dialysis 75 BPM Sitting Heart Rate Post-Dialysis 69 BPM Standing Heart Rate Pre-Dialysis 78 BPM Standing Heart Rate Post-Dialysis 69 BPM Temperature Pre-Dialysis 98.3 degF May 03, 2023 In-Center Hemodialysis Treatment [id number]:14:00.000Z 7510-98-06V03:19:22.000Z BP Sitting (Pre-Dialysis) 176/74 mmHg BP Sitting (Post-Dialysis) 196/78 mmHg Concurrent Access: falseAV Graft Forearm (Left) Arterial BP Standing (Pre-Dialysis) 143/72 mmHg BP Standing (P ost-Dialysis) 183/81 mmHg Sitting Heart Rate Pre-Dialysis 73 BPM Sitting Heart Rate Post-Dialysis 74 BPM Standing Heart Rate Pre-Dialysis 73 BPM Standing Heart Rate Post-Dialysis 78 BPM Temperature Pre-Dialysis 98.3 degF Temperature Post -Dialysis 97.3 degF April 30, 2023 In-Center Hemodialysis Treatment [id number]:23:20.000Z [id number]:37:55.000Z BP Sitting (Pre-Dialysis) 182/81 mmHg BP Sitting (Post-Dialysis) 208/83 mmHg Concurrent Access: falseAV Graft Forearm (Left) Arterial BP Standing (Pre-Dialysis) 181/82 mmHg BP Standing (P ost-Dialysis) 197/83 mmHg Sitting Heart Rate Pre-Dialysis 75 BPM Sitting Heart Rate Post-Dialysis 74 BPM Standing Heart Rate Pre-Dialysis 77 BPM Standing Heart Rate Post-Dialysis 77 BPM Temperature Pre-Dialysis 97 degF Temperature Post -Dialysis 97.6 degF April 28, 2023 In-Center Hemodialysis Treatment [id number]:18:31.000Z [id number]:30:11.000Z BP Sitting (Pre-Dialysis) 169/72 mmHg BP Sitting (Post-Dialysis) 175/68 mmHg Concurrent Access: falseAV Graft Forearm (Left) Arterial BP Standing (Pre-Dialysis) 152/45 mmHg BP Standing (P ost-Dialysis) 185/74 mmHg Sitting Heart Rate Pre-Dialysis 80 BPM Sitting Heart Rate Post-Dialysis 74 BPM Standing Heart Rate Pre-Dialysis 81 BPM Standing Heart Rate Post-Dialysis 74 BPM Temperature Pre-Dialysis 97.3 degF Temperature Post -Dialysis 97.6 degF April 26, 2023 In-Center Hemodialysis Treatment [id number]:07:11.000Z [id number]:07:11.000Z BP Sitting (Pre-Dialysis) 168/88 mmHg BP Sitting (Post-Dialysis) 194/67 mmHg Concurrent Access: falseAV Graft Forearm (Left) Arterial BP Standing (Pre-Dialysis) 166/73 mmHg Sitti ng Heart Rate Post-Dialysis 76 BPM Sitting Heart Rate Pre-Dialysis 79 BPM Temperatu re Post-Dialysis 98.1 degF Standing Heart Rate Pre-Dialysis 80 BPM Temperature Pre-Dialysis 97.5 degF April 21, 2023 In-Center Hemodialysis Treatment [id number]:15:05.000Z 1903-94-90B26:27:35.000Z BP Sitting (Pre-Dialysis) 141/56 mmHg BP Sitting (Post-Dialysis) 195/86 mmHg Concurrent Access: falseAV Graft Forearm (Left) Arterial BP Standing (Pre-Dialysis) 120/68 mmHg BP Standing (P ost-Dialysis) 191/74 mmHg Sitting Heart Rate Pre-Dialysis 81 BPM Sitting Heart Rate Post-Dialysis 75 BPM Standing Heart Rate Pre-Dialysis 87 BPM Standing Heart Rate Post-Dialysis 74 BPM Temperature Pre-Dialysis 98.4 degF Temperature Post -Dialysis 98.4 degF April 19, 2023 In-Center Hemodialysis Treatment [id number]:16:14.000Z [id number]:16:14.000Z BP Sitting (Pre-Dialysis) 171/75 mmHg BP Sitting (Post-Dialysis) 213/82 mmHg Concurrent Access: falseAV Graft Forearm (Left) Arterial BP Standing (Pre-Dialysis) 156/69 mmHg BP Standing (P ost-Dialysis) 169/71 mmHg Sitting Heart Rate Pre-Dialysis 78 BPM Sitting Heart Rate Post-Dialysis 76 BPM Standing Heart Rate Pre-Dialysis 84 BPM Standing Heart Rate Post-Dialysis 76 BPM Temperature Pre-Dialysis 98.1 degF Temperature Post -Dialysis 97.5 degF April 16, 2023 In-Center Hemodialysis Treatment [id number]:13:11.000Z [id number]:14:01.000Z BP Sitting (Pre-Dialysis) 172/80 mmHg BP Sitting (Post-Dialysis) 198/62 mmHg Concurrent Access: falseAV Graft Forearm (Left) Arterial BP Standing (Pre-Dialysis) 140/86 mmHg BP Standing (P ost-Dialysis) 183/76 mmHg Sitting Heart Rate Pre-Dialysis 74 BPM Sitting Heart Rate Post-Dialysis 73 BPM Standing Heart Rate Pre-Dialysis 83 BPM Standing Heart Rate Post-Dialysis 75 BPM Temperature Pre-Dialysis 98.2 degF Temperature Post -Dialysis 98.2 degF April 14, 2023 In-Center Hemodialysis Treatment [id number]:15:00.000Z [id number]:15:51.000Z BP Sitting (Pre-Dialysis) 167/77 mmHg BP Sitting (Post-Dialysis) 212/75 mmHg Concurrent Access: falseAV Graft Forearm (Left) Arterial BP Standing (Pre-Dialysis) 150/65 mmHg BP Standing (P ost-Dialysis) 192/82 mmHg Sitting Heart Rate Pre-Dialysis 76 BPM Sitting Heart Rate Post-Dialysis 79 BPM Standing Heart Rate Pre-Dialysis 84 BPM Standing Heart Rate Post-Dialysis 81 BPM Temperature Pre-Dialysis 98 degF Temperature Post -Dialysis 97.9 degF April 12, 2023 In-Center Hemodialysis Treatment [id number]:09:00.000Z [id number]:16:28.000Z BP Sitting (Pre-Dialysis) 137/65 mmHg BP Sitting (Post-Dialysis) 175/70 mmHg Concurrent Access: falseAV Graft Forearm (Left) Arterial BP Standing (Pre-Dialysis) 117/56 mmHg BP Standing (P ost-Dialysis) 173/87 mmHg Sitting Heart Rate Pre-Dialysis 77 BPM Sitting Heart Rate Post-Dialysis 82 BPM Standing Heart Rate Pre-Dialysis 82 BPM Standing Heart Rate Post-Dialysis 98 BPM Temperature Pre-Dialysis 97.4 degF Temperature Post -Dialysis 98.3 degF April 09, 2023 In-Center Hemodialysis Treatment [id number]:15:50.000Z [id number]:16:40.000Z BP Sitting (Pre-Dialysis) 163/78 mmHg BP Sitting (Post-Dialysis) 188/51 mmHg Concurrent Access: falseAV Graft Forearm (Left) Arterial BP Standing (Pre-Dialysis) 158/80 mmHg BP Standing (P ost-Dialysis) 208/85 mmHg Sitting Heart Rate Pre-Dialysis 81 BPM Sitting Heart Rate Post-Dialysis 77 BPM Standing Heart Rate Pre-Dialysis 90 BPM Standing Heart Rate Post-Dialysis 79 BPM Temperature Pre-Dialysis 97.6 degF Temperature Post -Dialysis 97.2 degF April 07, 2023 In-Center Hemodialysis Treatment [id number]:25:32.000Z [id number]:34:17.000Z BP Sitting (Pre-Dialysis) 169/78 mmHg BP Sitting (Post-Dialysis) 192/75 mmHg Concurrent Access: falseAV Graft Forearm (Left) Arterial BP Standing (Pre-Dialysis) 166/72 mmHg Sitti ng Heart Rate Post-Dialysis 69 BPM Sitting Heart Rate Pre-Dialysis 74 BPM Temperatu re Post-Dialysis 97.1 degF Standing Heart Rate Pre-Dialysis 78 BPM Temperature Pre-Dialysis 97.6 degF April 05, 2023 In-Center Hemodialysis Treatment [id number]:16:55.000Z [id number]:19:00.000Z BP Sitting (Pre-Dialysis) 161/74 mmHg BP Sitting (Post-Dialysis) 179/76 mmHg Concurrent Access: falseAV Graft Forearm (Left) Arterial BP Standing (Pre-Dialysis) 146/57 mmHg BP Standing (P ost-Dialysis) 145/65 mmHg Sitting Heart Rate Pre-Dialysis 68 BPM Sitting Heart Rate Post-Dialysis 77 BPM Standing Heart Rate Pre-Dialysis 83 BPM Standing Heart Rate Post-Dialysis 80 BPM Temperature Pre-Dialysis 98.3 degF Temperature Post -Dialysis 98.1 degF April 02, 2023 In-Center Hemodialysis Treatment [id number]:16:27.000Z 5332-41-88Y04:16:52.000Z BP Sitting (Pre-Dialysis) 174/80 mmHg BP Sitting (Post-Dialysis) 184/89 mmHg Concurrent Access: falseAV Graft Forearm (Left) Arterial BP Standing (Pre-Dialysis) 164/77 mmHg BP Standing (P ost-Dialysis) 157/73 mmHg Sitting Heart Rate Pre-Dialysis 79 BPM Sitting Heart Rate Post-Dialysis 77 BPM Standing Heart Rate Pre-Dialysis 91 BPM Standing Heart Rate Post-Dialysis 84 BPM Temperature Pre-Dialysis 98.4 degF Temperature Post -Dialysis 97.6 degF March 31, 2023 In-Center Hemodialysis Treatment [id number]:19:00.000Z 0896-29-82Q49:21:00.000Z BP Sitting (Pre-Dialysis) 115/57 mmHg BP Sitting (Post-Dialysis) 109/47 mmHg Concurrent Access: falseAV Graft Forearm (Left) Arterial BP Standing (Pre-Dialysis) 103/46 mmHg Sitti ng Heart Rate Post-Dialysis 69 BPM Sitting Heart Rate Pre-Dialysis 76 BPM Temperatu re Post-Dialysis 98.4 degF Standing Heart Rate Pre-Dialysis 83 BPM Temperature Pre-Dialysis 97.6 degF March 29, 2023 In-Center Hemodialysis Treatment [id number]:18:16.000Z 7793-10-10U71:18:41.000Z BP Sitting (Pre-Dialysis) 147/70 mmHg BP Sitting (Post-Dialysis) 148/66 mmHg Concurrent Access: falseAV Graft Forearm (Left) Arterial BP Standing (Pre-Dialysis) 139/66 mmHg BP Standing (P ost-Dialysis) 145/58 mmHg Sitting Heart Rate Pre-Dialysis 76 BPM Sitting Heart Rate Post-Dialysis 81 BPM Standing Heart Rate Pre-Dialysis 79 BPM Standing Heart Rate Post-Dialysis 82 BPM Temperature Pre-Dialysis 97.5 degF Temperature Post -Dialysis 98.6 degF March 26, 2023 In-Center Hemodialysis Treatment [id number]:15:29.000Z 6095-40-27P40:15:04.000Z BP Sitting (Pre-Dialysis) 111/52 mmHg BP Sitting (Post-Dialysis) 141/61 mmHg Concurrent Access: falseAV Graft Forearm (Left) Arterial BP Standing (Pre-Dialysis) 97/52 mmHg Sitti ng Heart Rate Post-Dialysis 71 BPM Sitting Heart Rate Pre-Dialysis 64 BPM Temperatu re Post-Dialysis 98.2 degF Standing Heart Rate Pre-Dialysis 73 BPM Temperature Pre-Dialysis 98.6 degF March 24, 2023 In-Center Hemodialysis Treatment [id number]:15:00.000Z [id number]:17:32.000Z BP Sitting (Pre-Dialysis) 125/52 mmHg BP Sitting (Post-Dialysis) 171/72 mmHg Concurrent Access: falseAV Graft Forearm (Left) Arterial BP Standing (Pre-Dialysis) 111/47 mmHg BP Standing (P ost-Dialysis) 144/59 mmHg Sitting Heart Rate Pre-Dialysis 73 BPM Sitting Heart Rate Post-Dialysis 79 BPM Standing Heart Rate Pre-Dialysis 87 BPM Standing Heart Rate Post-Dialysis 78 BPM Temperature Pre-Dialysis 98 degF Temperature Post -Dialysis 97.9 degF March 22, 2023 In-Center Hemodialysis Treatment [id number]:31:00.000Z 3508-27-63H01:30:32.000Z BP Sitting (Pre-Dialysis) 101/77 mmHg BP Sitting (Post-Dialysis) 118/57 mmHg Concurrent Access: falseAV Graft Forearm (Left) Arterial BP Standing (Pre-Dialysis) 100/51 mmHg Sitti ng Heart Rate Post-Dialysis 74 BPM Sitting Heart Rate Pre-Dialysis 58 BPM Temperatu re Post-Dialysis 98.2 degF Standing Heart Rate Pre-Dialysis 80 BPM Temperature Pre-Dialysis 97.9 degF March 19, 2023 In-Center Hemodialysis Treatment [id number]:20:00.000Z [id number]:23:22.000Z BP Sitting (Pre-Dialysis) 111/46 mmHg BP Sitting (Post-Dialysis) 164/69 mmHg Concurrent Access: falseAV Graft Forearm (Left) Arterial BP Standing (Pre-Dialysis) 107/46 mmHg BP Standing (P ost-Dialysis) 147/61 mmHg Sitting Heart Rate Pre-Dialysis 77 BPM Sitting Heart Rate Post-Dialysis 83 BPM Standing Heart Rate Pre-Dialysis 87 BPM Standing Heart Rate Post-Dialysis 86 BPM Temperature Pre-Dialysis 97.4 degF Temperature Post -Dialysis 97.3 degF March 17, 2023 In-Center Hemodialysis Treatment [id number]:13:00.000Z 6066-26-93R75:34:07.000Z BP Sitting (Pre-Dialysis) 117/55 mmHg BP Sitting (Post-Dialysis) 121/59 mmHg Concurrent Access: falseAV Graft Forearm (Left) Arterial BP Standing (Pre-Dialysis) 106/54 mmHg BP Standing (P ost-Dialysis) 123/52 mmHg Sitting Heart Rate Pre-Dialysis 74 BPM Sitting Heart Rate Post-Dialysis 77 BPM Standing Heart Rate Pre-Dialysis 77 BPM Standing Heart Rate Post-Dialysis 78 BPM Temperature Pre-Dialysis 98 degF Temperature Post -Dialysis 97.3 degF March 15, 2023 In-Center Hemodialysis Treatment [id number]:17:55.000Z 7444-87-78Z44:20:00.000Z BP Sitting (Pre-Dialysis) 122/58 mmHg BP Sitting (Post-Dialysis) 143/65 mmHg Concurrent Access: falseAV Graft Forearm (Left) Arterial Sitting Heart Rate Pre-Dialysis 73 BPM BP Standing (Post-Dialysis) 143/72 mmHg Temperature Pre-Dialysis 97.8 degF Sitting Heart Ra te Post-Dialysis 71 BPM Standing Heart Rate Post-Rosalba lysis 76 BPM Temperature Post-Dialysis 97 .3 degF March 12, 2023 In-Center Hemodialysis Treatment [id number]:17:14.000Z 5412-41-97D64:16:49.000Z BP Sitting (Pre-Dialysis) 107/53 mmHg BP Sitting (Post-Dialysis) 118/51 mmHg Concurrent Access: falseAV Graft Forearm (Left) Arterial BP Standing (Pre-Dialysis) 98/48 mmHg BP Standing (P ost-Dialysis) 116/51 mmHg Sitting Heart Rate Pre-Dialysis 78 BPM Sitting Heart Rate Post-Dialysis 79 BPM Standing Heart Rate Pre-Dialysis 83 BPM Standing Heart Rate Post-Dialysis 81 BPM Temperature Pre-Dialysis 98.3 degF Temperature Post -Dialysis 97.7 degF March 10, 2023 In-Center Hemodialysis Treatment [id number]:23:16.000Z 2430-62-91W19:23:41.000Z BP Sitting (Pre-Dialysis) 127/61 mmHg BP Sitting (Post-Dialysis) 153/59 mmHg Concurrent Access: falseAV Graft Forearm (Left) Arterial BP Standing (Pre-Dialysis) 115/49 mmHg Sitti ng Heart Rate Post-Dialysis 81 BPM Sitting Heart Rate Pre-Dialysis 78 BPM Temperatu re Post-Dialysis 98.5 degF Standing Heart Rate Pre-Dialysis 82 BPM Temperature Pre-Dialysis 97.8 degF March 08, 2023 In-Center Hemodialysis Treatment [id number]:30:47.000Z 9791-63-15V67:41:37.000Z BP Sitting (Pre-Dialysis) 142/63 mmHg BP Sitting (Post-Dialysis) 174/75 mmHg Concurrent Access: falseAV Graft Forearm (Left) Arterial BP Standing (Pre-Dialysis) 145/63 mmHg BP Standing (P ost-Dialysis) 149/69 mmHg Sitting Heart Rate Pre-Dialysis 76 BPM Sitting Heart Rate Post-Dialysis 78 BPM Standing Heart Rate Pre-Dialysis 79 BPM Standing Heart Rate Post-Dialysis 81 BPM Temperature Pre-Dialysis 98 degF Temperature Post -Dialysis 98.2 degF March 05, 2023 In-Center Hemodialysis Treatment [id number]:20:00.000Z 1662-35-54V01:24:54.000Z BP Sitting (Pre-Dialysis) 117/47 mmHg BP Sitting (Post-Dialysis) 155/79 mmHg Concurrent Access: falseAV Graft Forearm (Left) Arterial BP Standing (Pre-Dialysis) 100/56 mmHg BP Standing (P ost-Dialysis) 138/63 mmHg Sitting Heart Rate Pre-Dialysis 73 BPM Sitting Heart Rate Post-Dialysis 75 BPM Standing Heart Rate Pre-Dialysis 81 BPM Standing Heart Rate Post-Dialysis 82 BPM Temperature Pre-Dialysis 97.2 degF Temperature Post -Dialysis 98.1 degF March 02, 2023 In-Center Hemodialysis Treatment [id number]:17:00.000Z 6351-48-80R48:25:20.000Z BP Sitting (Pre-Dialysis) 113/43 mmHg BP Sitting (Post-Dialysis) 139/64 mmHg Concurrent Access: falseAV Graft Forearm (Left) Arterial BP Standing (Pre-Dialysis) 108/54 mmHg BP Standing (P ost-Dialysis) 125/59 mmHg Sitting Heart Rate Pre-Dialysis 69 BPM Sitting Heart Rate Post-Dialysis 70 BPM Standing Heart Rate Pre-Dialysis 75 BPM Standing Heart Rate Post-Dialysis 76 BPM Temperature Pre-Dialysis 97.7 degF Temperature Post -Dialysis 97.7 degF February 28, 2023 In-Center Hemodialysis Treatment 6301-05-61T56:19:06.000Z 1244-71-05T76:19:06.000Z BP Sitting (Pre-Dialysis) 11/57 mmHg BP Sitting (Post-Dialysis) 167/68 mmHg Concurrent Access: falseAV Graft Forearm (Left) Arterial BP Standing (Pre-Dialysis) 112/56 mmHg BP Standing (P ost-Dialysis) 131/68 mmHg Sitting Heart Rate Pre-Dialysis 78 BPM Sitting Heart Rate Post-Dialysis 73 BPM Standing Heart Rate Pre-Dialysis 79 BPM Standing Heart Rate Post-Dialysis 72 BPM Temperature Pre-Dialysis 97.9 degF Temperature Post -Dialysis 98.7 degF February 24, 2023 In-Center Hemodialysis Treatment [id number]:15:00.000Z [id number]:14:17.000Z BP Sitting (Pre-Dialysis) 120/61 mmHg BP Sitting (Post-Dialysis) 165/62 mmHg Concurrent Access: falseAV Graft Forearm (Left) Arterial BP Standing (Pre-Dialysis) 121/59 mmHg BP Standing (P ost-Dialysis) 149/60 mmHg Sitting Heart Rate Pre-Dialysis 71 BPM Sitting Heart Rate Post-Dialysis 72 BPM Standing Heart Rate Pre-Dialysis 74 BPM Standing Heart Rate Post-Dialysis 75 BPM Temperature Pre-Dialysis 98.2 degF Temperature Post -Dialysis 98.6 degF February 22, 2023 In-Center Hemodialysis Treatment [id number]:00:00.000Z 3722-65-53G59:02:39.000Z BP Sitting (Pre-Dialysis) 156/70 mmHg BP Sitting (Post-Dialysis) 185/80 mmHg Concurrent Access: falseAV Graft Forearm (Left) Arterial BP Standing (Pre-Dialysis) 152/61 mmHg BP Standing (P ost-Dialysis) 133/61 mmHg Sitting Heart Rate Pre-Dialysis 82 BPM Sitting Heart Rate Post-Dialysis 74 BPM Standing Heart Rate Pre-Dialysis 84 BPM Standing Heart Rate Post-Dialysis 79 BPM Temperature Pre-Dialysis 97.2 degF Temperature Post -Dialysis 98.2 degF February 17, 2023 In-Center Hemodialysis Treatment [id number]:54:00.000Z 6811-42-83P61:13:00.000Z BP Sitting (Pre-Dialysis) 113/48 mmHg BP Sitting (Post-Dialysis) 115/44 mmHg Concurrent Access: falseAV Graft Forearm (Left) Arterial BP Standing (Pre-Dialysis) 96/48 mmHg BP Standing (P ost-Dialysis) 118/52 mmHg Sitting Heart Rate Pre-Dialysis 75 BPM Sitting Heart Rate Post-Dialysis 72 BPM Standing Heart Rate Pre-Dialysis 79 BPM Standing Heart Rate Post-Dialysis 75 BPM Temperature Pre-Dialysis 98.3 degF Temperature Post -Dialysis 97.9 degF February 15, 2023 In-Center Hemodialysis Treatment 4588-75-26E20:14:19.000Z 8672-78-02R96:15:09.000Z BP Sitting (Pre-Dialysis) 171/70 mmHg BP Sitting (Post-Dialysis) 216/86 mmHg Concurrent Access: falseAV Graft Forearm (Left) Arterial BP Standing (Pre-Dialysis) 167/75 mmHg BP Standing (P ost-Dialysis) 204/72 mmHg Sitting Heart Rate Pre-Dialysis 78 BPM Sitting Heart Rate Post-Dialysis 76 BPM Standing Heart Rate Pre-Dialysis 81 BPM Standing Heart Rate Post-Dialysis 80 BPM Temperature Pre-Dialysis 98.2 degF Temperature Post -Dialysis 97.9 degF February 12, 2023 In-Center Hemodialysis Treatment [id number]:11:15.000Z 4415-73-91C31:11:15.000Z BP Sitting (Pre-Dialysis) 122/60 mmHg BP Sitting (Post-Dialysis) 142/67 mmHg Concurrent Access: falseAV Graft Forearm (Left) Arterial BP Standing (Pre-Dialysis) 113/55 mmHg BP Standing (P ost-Dialysis) 135/67 mmHg Sitting Heart Rate Pre-Dialysis 75 BPM Sitting Heart Rate Post-Dialysis 77 BPM Standing Heart Rate Pre-Dialysis 84 BPM Standing Heart Rate Post-Dialysis 80 BPM Temperature Pre-Dialysis 97.8 degF Temperature Post -Dialysis 97.4 degF February 08, 2023 In-Center Hemodialysis Treatment 8076-80-73T75:03:43.000Z 9052-08-12M40:03:43.000Z BP Sitting (Pre-Dialysis) 106/51 mmHg BP Sitting (Post-Dialysis) 137/67 mmHg Concurrent Access: falseAV Graft Forearm (Left) Arterial BP Standing (Pre-Dialysis) 94/55 mmHg BP Standing (P ost-Dialysis) 130/59 mmHg Sitting Heart Rate Pre-Dialysis 64 BPM Sitting Heart Rate Post-Dialysis 73 BPM Standing Heart Rate Pre-Dialysis 71 BPM Standing Heart Rate Post-Dialysis 77 BPM Temperature Pre-Dialysis 97.3 degF Temperature Post -Dialysis 98.2 degF February 05, 2023 In-Center Hemodialysis Treatment 2613-55-05B78:15:00.000Z 3080-13-01C62:00:10.000Z BP Sitting (Pre-Dialysis) 114/59 mmHg BP Sitting (Post-Dialysis) 152/62 mmHg Concurrent Access: falseAV Graft Forearm (Left) Arterial BP Standing (Pre-Dialysis) 123/59 mmHg BP Standing (P ost-Dialysis) 131/64 mmHg Sitting Heart Rate Pre-Dialysis 67 BPM Sitting Heart Rate Post-Dialysis 66 BPM Standing Heart Rate Pre-Dialysis 75 BPM Standing Heart Rate Post-Dialysis 73 BPM Temperature Pre-Dialysis 97.4 degF Temperature Post -Dialysis 98.4 degF February 03, 2023 In-Center Hemodialysis Treatment [id number]:27:00.000Z 1982-51-83F61:26:37.000Z BP Sitting (Pre-Dialysis) 118/61 mmHg BP Sitting (Post-Dialysis) 118/52 mmHg Concurrent Access: falseAV Graft Forearm (Left) Arterial BP Standing (Pre-Dialysis) 130/62 mmHg BP Standing (P ost-Dialysis) 110/55 mmHg Sitting Heart Rate Pre-Dialysis 74 BPM Sitting Heart Rate Post-Dialysis 51 BPM Standing Heart Rate Pre-Dialysis 70 BPM Standing Heart Rate Post-Dialysis 71 BPM Temperature Pre-Dialysis 97.9 degF Temperature Post -Dialysis 97.3 degF February 01, 2023 In-Center Hemodialysis Treatment [id number]:22:00.000Z 6385-65-16C15:25:25.000Z BP Sitting (Pre-Dialysis) 120/64 mmHg BP Sitting (Post-Dialysis) 158/73 mmHg Concurrent Access: falseAV Graft Forearm (Left) Arterial BP Standing (Pre-Dialysis) 115/48 mmHg BP Standing (P ost-Dialysis) 143/67 mmHg Sitting Heart Rate Pre-Dialysis 71 BPM Sitting Heart Rate Post-Dialysis 79 BPM Standing Heart Rate Pre-Dialysis 76 BPM Standing Heart Rate Post-Dialysis 82 BPM Temperature Pre-Dialysis 97.9 degF Temperature Post -Dialysis 97.3 degF January 29, 2023 In-Center Hemodialysis Treatment 5727-89-27A54:06:00.000Z 5113-43-58G81:05:58.000Z BP Sitting (Pre-Dialysis) 99/52 mmHg BP Sitting (Post-Dialysis) 148/61 mmHg Concurrent Access: falseAV Graft Forearm (Left) Arterial BP Standing (Pre-Dialysis) 101/51 mmHg BP Standing (P ost-Dialysis) 153/66 mmHg Sitting Heart Rate Pre-Dialysis 75 BPM Sitting Heart Rate Post-Dialysis 76 BPM Standing Heart Rate Pre-Dialysis 78 BPM Standing Heart Rate Post-Dialysis 77 BPM Temperature Pre-Dialysis 97.5 degF Temperature Post -Dialysis 97.8 degF January 27, 2023 In-Center Hemodialysis Treatment 5790-59-94Y16:12:00.000Z 6182-01-68P49:26:45.000Z BP Sitting (Pre-Dialysis) 129/56 mmHg BP Sitting (Post-Dialysis) 140/57 mmHg Concurrent Access: falseAV Graft Forearm (Left) Arterial BP Standing (Pre-Dialysis) 15/58 mmHg BP Standing (P ost-Dialysis) 124/52 mmHg Sitting Heart Rate Pre-Dialysis 73 BPM Sitting Heart Rate Post-Dialysis 70 BPM Standing Heart Rate Pre-Dialysis 77 BPM Standing Heart Rate Post-Dialysis 71 BPM Temperature Pre-Dialysis 97.7 degF Temperature Post -Dialysis 98 degF January 25, 2023 In-Center Hemodialysis Treatment [id number]:13:48.000Z 6327-47-03C29:13:36.000Z BP Sitting (Pre-Dialysis) 129/55 mmHg BP Sitting (Post-Dialysis) 139/61 mmHg Concurrent Access: falseAV Graft Forearm (Left) Arterial BP Standing (Pre-Dialysis) 111/50 mmHg BP Standing (P ost-Dialysis) 119/58 mmHg Sitting Heart Rate Pre-Dialysis 75 BPM Sitting Heart Rate Post-Dialysis 70 BPM Standing Heart Rate Pre-Dialysis 83 BPM Standing Heart Rate Post-Dialysis 77 BPM Temperature Pre-Dialysis 97.4 degF Temperature Post -Dialysis 98.7 degF January 22, 2023 In-Center Hemodialysis Treatment [id number]:10:00.000Z [id number]:17:55.000Z BP Sitting (Pre-Dialysis) 145/72 mmHg BP Sitting (Post-Dialysis) 195/78 mmHg Concurrent Access: falseAV Graft Forearm (Left) Arterial BP Standing (Pre-Dialysis) 138/73 mmHg BP Standing (P ost-Dialysis) 159/58 mmHg Sitting Heart Rate Pre-Dialysis 76 BPM Sitting Heart Rate Post-Dialysis 77 BPM Standing Heart Rate Pre-Dialysis 80 BPM Standing Heart Rate Post-Dialysis 76 BPM Temperature Pre-Dialysis 98.2 degF Temperature Post -Dialysis 98.4 degF January 20, 2023 In-Center Hemodialysis Treatment [id number]:08:08.000Z [id number]:07:43.000Z BP Sitting (Pre-Dialysis) 108/53 mmHg BP Sitting (Post-Dialysis) 132/54 mmHg Concurrent Access: falseAV Graft Forearm (Left) Arterial BP Standing (Pre-Dialysis) 97/49 mmHg BP Standing (P ost-Dialysis) 122/52 mmHg Sitting Heart Rate Pre-Dialysis 69 BPM Sitting Heart Rate Post-Dialysis 71 BPM Standing Heart Rate Pre-Dialysis 71 BPM Standing Heart Rate Post-Dialysis 66 BPM Temperature Pre-Dialysis 97.9 degF Temperature Post -Dialysis 97.9 degF January 18, 2023 In-Center Hemodialysis Treatment [id number]:14:00.000Z [id number]:12:55.000Z BP Sitting (Pre-Dialysis) 145/58 mmHg BP Sitting (Post-Dialysis) 179/71 mmHg Concurrent Access: falseAV Graft Forearm (Left) Arterial BP Standing (Pre-Dialysis) 131/63 mmHg BP Standing (P ost-Dialysis) 161/96 mmHg Sitting Heart Rate Pre-Dialysis 74 BPM Sitting Heart Rate Post-Dialysis 77 BPM Standing Heart Rate Pre-Dialysis 77 BPM Standing Heart Rate Post-Dialysis 85 BPM Temperature Pre-Dialysis 98.3 degF Temperature Post -Dialysis 97.9 degF January 13, 2023 In-Center Hemodialysis Treatment [id number]:07:46.000Z [id number]:08:36.000Z BP Sitting (Pre-Dialysis) 134/57 mmHg BP Sitting (Post-Dialysis) 138/66 mmHg Concurrent Access: falseAV Graft Forearm (Left) Arterial BP Standing (Pre-Dialysis) 106/59 mmHg BP Standing (P ost-Dialysis) 133/57 mmHg Sitting Heart Rate Pre-Dialysis 80 BPM Sitting Heart Rate Post-Dialysis 72 BPM Standing Heart Rate Pre-Dialysis 85 BPM Standing Heart Rate Post-Dialysis 78 BPM Temperature Pre-Dialysis 98.2 degF Temperature Post -Dialysis 97.6 degF January 11, 2023 In-Center Hemodialysis Treatment [id number]:20:00.000Z [id number]:19:23.000Z BP Sitting (Pre-Dialysis) 137/50 mmHg BP Sitting (Post-Dialysis) 192/73 mmHg Concurrent Access: falseAV Graft [employer]arm (Left) Arterial BP Standing (Pre-Dialysis) 133/50 mmHg BP Standing (P ost-Dialysis) 175/79 mmHg Sitting Heart Rate Pre-Dialysis 72 BPM Sitting Heart Rate Post-Dialysis 67 BPM Standing Heart Rate Pre-Dialysis 74 BPM Standing Heart Rate Post-Dialysis 71 BPM Temperature Pre-Dialysis 98 degF Temperature Post -Dialysis 98.2 degF January 08, 2023 In-Center Hemodialysis Treatment [id number]:10:00.000Z [id number]:10:11.000Z BP Sitting (Pre-Dialysis) 121/61 mmHg BP Sitting (Post-Dialysis) 154/102 mmHg Concurrent Access: falseAV G[employer] (Left) Arterial BP Standing (Pre-Dialysis) 121/60 mmHg Sitti ng Heart Rate Post-Dialysis 61 BPM Sitting Heart Rate Pre-Dialysis 77 BPM Temperatu re Post-Dialysis 98.2 degF Standing Heart Rate Pre-Dialysis 82 BPM Temperature Pre-Dialysis 97.8 degF January 06, 2023 In-Center Hemodialysis Treatment [id number]:24:00.000Z [id number]:23:45.000Z BP Sitting (Pre-Dialysis) 126/70 mmHg BP Sitting (Post-Dialysis) 172/73 mmHg Concurrent Access: falseAV G[employer] (Left) Arterial BP Standing (Pre-Dialysis) 139/62 mmHg Sitti ng Heart Rate Post-Dialysis 65 BPM Sitting Heart Rate Pre-Dialysis 71 BPM Temperatu re Post-Dialysis 97.2 degF Standing Heart Rate Pre-Dialysis 76 BPM Temperature Pre-Dialysis 98.2 degF January 04, 2023 In-Center Hemodialysis Treatment [id number]:22:00.000Z 6399-04-42E28:09:26.000Z BP Sitting (Pre-Dialysis) 150/72 mmHg BP Sitting (Post-Dialysis) 177/73 mmHg Concurrent Access: falseAV G[employer] (Left) Arterial BP Standing (Pre-Dialysis) 145/70 mmHg BP Standing (P ost-Dialysis) 156/74 mmHg Sitting Heart Rate Pre-Dialysis 84 BPM Sitting Heart Rate Post-Dialysis 156 BPM Standing Heart Rate Pre-Dialysis 89 BPM Standing Heart Rate Post-Dialysis 81 BPM Temperature Pre-Dialysis 98.3 degF Temperature Post -Dialysis 97.3 degF January 01, 2023 In-Center Hemodialysis Treatment [id number]:15:00.000Z [id number]:18:06.000Z BP Sitting (Pre-Dialysis) 103/54 mmHg BP Sitting (Post-Dialysis) 129/60 mmHg Concurrent Access: falseAV G[employer]arm (Left) Arterial BP Standing (Pre-Dialysis) 98/53 mmHg BP Standing (P ost-Dialysis) 129/57 mmHg Sitting Heart Rate Pre-Dialysis 75 BPM Sitting Heart Rate Post-Dialysis 76 BPM Standing Heart Rate Pre-Dialysis 78 BPM Standing Heart Rate Post-Dialysis 73 BPM Temperature Pre-Dialysis 98.1 degF Temperature Post -Dialysis 97.3 degF December 30, 2022 In-Center Hemodialysis Treatment [id number]:13:00.000Z [id number]:11:24.000Z BP Sitting (Pre-Dialysis) 131/51 mmHg BP Sitting (Post-Dialysis) 117/57 mmHg Concurrent Access: falseAV G[employer] (Left) Arterial BP Standing (Pre-Dialysis) 123/52 mmHg Sitti ng Heart Rate Post-Dialysis 65 BPM Sitting Heart Rate Pre-Dialysis 73 BPM Temperatu re Post-Dialysis 97.7 degF Standing Heart Rate Pre-Dialysis 80 BPM Temperature Pre-Dialysis 97.9 degF December 28, 2022 In-Center Hemodialysis Treatment [id number]:15:00.000Z [id number]:21:50.000Z BP Sitting (Pre-Dialysis) 144/59 mmHg BP Sitting (Post-Dialysis) 187/71 mmHg Concurrent Access: falseAV G[employer]arm (Left) Arterial BP Standing (Pre-Dialysis) 137/63 mmHg Sitti ng Heart Rate Post-Dialysis 73 BPM Sitting Heart Rate Pre-Dialysis 76 BPM Temperatu re Post-Dialysis 97.1 degF Standing Heart Rate Pre-Dialysis 77 BPM Temperature Pre-Dialysis 97.3 degF December 25, 2022 In-Center Hemodialysis Treatment [id number]:06:00.000Z [id number]:05:35.000Z BP Sitting (Pre-Dialysis) 132/68 mmHg BP Sitting (Post-Dialysis) 155/81 mmHg Concurrent Access: falseAV G[employer] (Left) Arterial BP Standing (Pre-Dialysis) 132/67 mmHg Sitti ng Heart Rate Post-Dialysis 73 BPM Sitting Heart Rate Pre-Dialysis 74 BPM Temperatu re Post-Dialysis 98.2 degF Standing Heart Rate Pre-Dialysis 73 BPM Temperature Pre-Dialysis 98.6 degF December 23, 2022 In-Center Hemodialysis Treatment [id number]:22:00.000Z 1819-76-97P36:24:31.000Z BP Sitting (Pre-Dialysis) 100/55 mmHg BP Sitting (Post-Dialysis) 137/43 mmHg Concurrent Access: falseAV G[employer] (Left) Arterial BP Standing (Pre-Dialysis) 97/47 mmHg BP Standing (P ost-Dialysis) 134/60 mmHg Sitting Heart Rate Pre-Dialysis 63 BPM Sitting Heart Rate Post-Dialysis 64 BPM Standing Heart Rate Pre-Dialysis 71 BPM Standing Heart Rate Post-Dialysis 67 BPM Temperature Pre-Dialysis 97.9 degF Temperature Post -Dialysis 96.2 degF December 21, 2022 In-Center Hemodialysis Treatment [id number]:13:00.000Z [id number]:13:00.000Z BP Sitting (Pre-Dialysis) 111/54 mmHg BP Sitting (Post-Dialysis) 158/53 mmHg Concurrent Access: falseAV G[employer] (Left) Arterial BP Standing (Pre-Dialysis) 113/59 mmHg Sitting Heart Rate Post-Dialysis 64 BPM Sitting Heart Rate Pre-Dialysis 67 BPM Temperatu re Post-Dialysis 98 degF Standing Heart Rate Pre-Dialysis 75 BPM Temperature Pre-Dialysis 97.3 degF December 18, 2022 In-Center Hemodialysis Treatment [id number]:07:38.000Z [id number]:08:28.000Z BP Sitting (Pre-Dialysis) 116/56 mmHg BP Sitting (Post-Dialysis) 138/54 mmHg Concurrent Access: falseAV G[employer] (Left) Arterial BP Standing (Pre-Dialysis) 113/56 mmHg BP Standing (P ost-Dialysis) 134/60 mmHg Sitting Heart Rate Pre-Dialysis 65 BPM Sitting Heart Rate Post-Dialysis 75 BPM Standing Heart Rate Pre-Dialysis 72 BPM Standing Heart Rate Post-Dialysis 83 BPM Temperature Pre-Dialysis 97.4 degF Temperature Post -Dialysis 98.2 degF December 16, 2022 In-Center Hemodialysis Treatment [id number]:08:34.000Z [id number]:08:59.000Z BP Sitting (Pre-Dialysis) 151/59 mmHg BP Sitting (Post-Dialysis) 136/57 mmHg Concurrent Access: falseAV G[employer] (Left) Arterial BP Standing (Pre-Dialysis) 132/56 mmHg BP Standing (P ost-Dialysis) 127/57 mmHg Sitting Heart Rate Pre-Dialysis 78 BPM Sitting Heart Rate Post-Dialysis 63 BPM Standing Heart Rate Pre-Dialysis 83 BPM Standing Heart Rate Post-Dialysis 71 BPM Temperature Pre-Dialysis 98.1 degF Temperature Post -Dialysis 98 degF December 14, 2022 In-Center Hemodialysis Treatment [id number]:07:51.000Z [id number]:07:26.000Z BP Sitting (Pre-Dialysis) 107/49 mmHg BP Sitting (Post-Dialysis) 149/73 mmHg Concurrent Access: falseAV G[employer] (Left) Arterial BP Standing (Pre-Dialysis) 104/60 mmHg BP Standing (P ost-Dialysis) 142/54 mmHg Sitting Heart Rate Pre-Dialysis 65 BPM Sitting Heart Rate Post-Dialysis 58 BPM Standing Heart Rate Pre-Dialysis 74 BPM Standing Heart Rate Post-Dialysis 70 BPM Temperature Pre-Dialysis 98.1 degF Temperature Post -Dialysis 97.9 degF December 11, 2022 In-Center Hemodialysis Treatment [id number]:17:24.000Z [id number]:16:34.000Z BP Sitting (Pre-Dialysis) 135/59 mmHg BP Sitting (Post-Dialysis) 124/76 mmHg Concurrent Access: falseAV Graft [employer]arm (Left) Arterial BP Standing (Pre-Dialysis) 106/57 mmHg BP Standing (P ost-Dialysis) 118/48 mmHg Sitting Heart Rate Pre-Dialysis 66 BPM Sitting Heart Rate Post-Dialysis 60 BPM Standing Heart Rate Pre-Dialysis 64 BPM Standing Heart Rate Post-Dialysis 67 BPM Temperature Pre-Dialysis 97.8 degF Temperature Post -Dialysis 97.8 degF December 09, 2022 In-Center Hemodialysis Treatment [id number]:07:12.000Z [id number]:06:47.000Z BP Sitting (Pre-Dialysis) 118/66 mmHg BP Sitting (Post-Dialysis) 160/52 mmHg Concurrent Access: falseAV Graft Forearm (Left) Arterial BP Standing (Pre-Dialysis) 124/48 mmHg Sitti ng Heart Rate Post-Dialysis 69 BPM Sitting Heart Rate Pre-Dialysis 74 BPM Temperatu re Post-Dialysis 97.4 degF Standing Heart Rate Pre-Dialysis 77 BPM Temperature Pre-Dialysis 98.1 degF December 04, 2022 In-Center Hemodialysis Treatment [id number]:09:05.000Z [id number]:09:05.000Z BP Sitting (Pre-Dialysis) 114/53 mmHg BP Sitting (Post-Dialysis) 138/84 mmHg Concurrent Access: falseAV G[employer] (Left) Arterial BP Standing (Pre-Dialysis) 123/52 mmHg BP Standing (P ost-Dialysis) 143/60 mmHg Sitting Heart Rate Pre-Dialysis 65 BPM Sitting Heart Rate Post-Dialysis 68 BPM Standing Heart Rate Pre-Dialysis 74 BPM Standing Heart Rate Post-Dialysis 70 BPM Temperature Pre-Dialysis 98.4 degF Temperature Post -Dialysis 98.2 degF December 02, 2022 In-Center Hemodialysis Treatment 2609-20-28Y94:05:11.000Z [id number]:06:26.000Z BP Sitting (Pre-Dialysis) 127/51 mmHg BP Sitting (Post-Dialysis) 129/57 mmHg Concurrent Access: falseAV Graft [employer]arm (Left) Arterial BP Standing (Pre-Dialysis) 113/53 mmHg BP Standing (P ost-Dialysis) 110/54 mmHg Sitting Heart Rate Pre-Dialysis 68 BPM Sitting Heart Rate Post-Dialysis 65 BPM Standing Heart Rate Pre-Dialysis 72 BPM Standing Heart Rate Post-Dialysis 75 BPM Temperature Pre-Dialysis 98.3 degF Temperature Post -Dialysis 98 degF November 30, 2022 In-Center Hemodialysis Treatment [id number]:15:00.000Z 3557-09-39N59:13:38.000Z BP Sitting (Pre-Dialysis) 157/58 mmHg BP Sitting (Post-Dialysis) 178/62 mmHg Concurrent Access: falseAV G[employer] (Left) Arterial BP Standing (Pre-Dialysis) 143/47 mmHg BP Standing (P ost-Dialysis) 172/72 mmHg Sitting Heart Rate Pre-Dialysis 80 BPM Sitting Heart Rate Post-Dialysis 77 BPM Standing Heart Rate Pre-Dialysis 85 BPM Standing Heart Rate Post-Dialysis 80 BPM Temperature Pre-Dialysis 98.6 degF Temperature Post -Dialysis 98.4 degF November 27, 2022 In-Center Hemodialysis Treatment [id number]:19:00.000Z [id number]:17:50.000Z BP Sitting (Pre-Dialysis) 134/54 mmHg BP Sitting (Post-Dialysis) 156/67 mmHg Concurrent Access: falseAV Graft [employer] (Left) Arterial BP Standing (Pre-Dialysis) 131/60 mmHg BP Standing (P ost-Dialysis) 144/65 mmHg Sitting Heart Rate Pre-Dialysis 75 BPM Sitting Heart Rate Post-Dialysis 69 BPM Standing Heart Rate Pre-Dialysis 77 BPM Standing Heart Rate Post-Dialysis 71 BPM Temperature Pre-Dialysis 98.4 degF Temperature Post -Dialysis 98.1 degF November 25, 2022 In-Center Hemodialysis Treatment [id number]:24:49.000Z [id number]:24:24.000Z BP Sitting (Pre-Dialysis) 120/56 mmHg BP Sitting (Post-Dialysis) 157/74 mmHg Concurrent Access: falseAV G[employer] (Left) Arterial BP Standing (Pre-Dialysis) 127/54 mmHg BP Standing (P ost-Dialysis) 140/61 mmHg Sitting Heart Rate Pre-Dialysis 65 BPM Sitting Heart Rate Post-Dialysis 67 BPM Standing Heart Rate Pre-Dialysis 71 BPM Standing Heart Rate Post-Dialysis 71 BPM Temperature Pre-Dialysis 98.2 degF Temperature Post -Dialysis 98.2 degF November 23, 2022 In-Center Hemodialysis Treatment [id number]:13:00.000Z [id number]:13:35.000Z BP Sitting (Pre-Dialysis) 135/51 mmHg BP Sitting (Post-Dialysis) 162/64 mmHg Concurrent Access: falseAV G[employer] (Left) Arterial BP Standing (Pre-Dialysis) 118/76 mmHg BP Standing (P ost-Dialysis) 159/64 mmHg Sitting Heart Rate Pre-Dialysis 72 BPM Sitting Heart Rate Post-Dialysis 68 BPM Standing Heart Rate Pre-Dialysis 80 BPM Standing Heart Rate Post-Dialysis 72 BPM Temperature Pre-Dialysis 98 degF Temperature Post -Dialysis 98.1 degF November 20, 2022 In-Center Hemodialysis Treatment [id number]:14:31.000Z [id number]:16:11.000Z BP Sitting (Pre-Dialysis) 124/45 mmHg BP Sitting (Post-Dialysis) 126/45 mmHg Concurrent Access: falseAV G[employer] (Left) Arterial BP Standing (Pre-Dialysis) 111/53 mmHg Sitti ng Heart Rate Post-Dialysis 69 BPM Sitting Heart Rate Pre-Dialysis 69 BPM Temperatu re Post-Dialysis 98.1 degF Standing Heart Rate Pre-Dialysis 71 BPM Temperature Pre-Dialysis 97.7 degF November 18, 2022 In-Center Hemodialysis Treatment 2072-28-26T79:21:00.000Z [id number]:21:15.000Z BP Sitting (Pre-Dialysis) 133/54 mmHg BP Sitting (Post-Dialysis) 164/71 mmHg Concurrent Access: falseAV G[employer] (Left) Arterial BP Standing (Pre-Dialysis) 130/58 mmHg BP Standing (P ost-Dialysis) 160/58 mmHg Sitting Heart Rate Pre-Dialysis 70 BPM Sitting Heart Rate Post-Dialysis 69 BPM Standing Heart Rate Pre-Dialysis 75 BPM Standing Heart Rate Post-Dialysis 76 BPM Temperature Pre-Dialysis 98 degF Temperature Post -Dialysis 98.1 degF November 16, 2022 In-Center Hemodialysis Treatment [id number]:16:35.000Z 8378-30-97S78:16:10.000Z BP Sitting (Pre-Dialysis) 146/64 mmHg BP Sitting (Post-Dialysis) 169/67 mmHg Concurrent Access: falseAV G[employer] (Left) Arterial BP Standing (Pre-Dialysis) 149/65 mmHg BP Standing (P ost-Dialysis) 164/59 mmHg Sitting Heart Rate Pre-Dialysis 79 BPM Sitting Heart Rate Post-Dialysis 78 BPM Standing Heart Rate Pre-Dialysis 83 BPM Standing Heart Rate Post-Dialysis 78 BPM Temperature Pre-Dialysis 97.6 degF Temperature Post -Dialysis 97.9 degF November 13, 2022 In-Center Hemodialysis Treatment [id number]:17:56.000Z [id number]:17:56.000Z BP Sitting (Pre-Dialysis) 122/57 mmHg BP Sitting (Post-Dialysis) 151/67 mmHg Concurrent Access: falseAV Graft Forearm (Left) Arterial BP Standing (Pre-Dialysis) 122/57 mmHg BP Standing (P ost-Dialysis) 135/58 mmHg Sitting Heart Rate Pre-Dialysis 78 BPM Sitting Heart Rate Post-Dialysis 72 BPM Standing Heart Rate Pre-Dialysis 78 BPM Standing Heart Rate Post-Dialysis 68 BPM Temperature Pre-Dialysis 97.6 degF Temperature Post -Dialysis 98 degF November 11, 2022 In-Center Hemodialysis Treatment [id number]:16:27.000Z 5963-52-15Q22:16:52.000Z BP Sitting (Pre-Dialysis) 128/63 mmHg BP Sitting (Post-Dialysis) 158/58 mmHg Concurrent Access: falseAV Graft Forearm (Left) Arterial BP Standing (Pre-Dialysis) 110/57 mmHg BP Standing (P ost-Dialysis) 160/63 mmHg Sitting Heart Rate Pre-Dialysis 73 BPM Sitting Heart Rate Post-Dialysis 74 BPM Standing Heart Rate Pre-Dialysis 76 BPM Standing Heart Rate Post-Dialysis 73 BPM Temperature Pre-Dialysis 98.1 degF Temperature Post -Dialysis 98.2 degF November 09, 2022 In-Center Hemodialysis Treatment 0519-17-28G22:12:12.000Z [id number]:20:57.000Z BP Sitting (Pre-Dialysis) 124/59 mmHg BP Sitting (Post-Dialysis) 156/48 mmHg Concurrent Access: falseAV Graft Forearm (Left) Arterial BP Standing (Pre-Dialysis) 116/55 mmHg BP Standing (P ost-Dialysis) 140/59 mmHg Sitting Heart Rate Pre-Dialysis 71 BPM Sitting Heart Rate Post-Dialysis 70 BPM Standing Heart Rate Pre-Dialysis 72 BPM Standing Heart Rate Post-Dialysis 71 BPM Temperature Pre-Dialysis 98.2 degF Temperature Post -Dialysis 98.6 degF November 06, 2022 In-Center Hemodialysis Treatment [id number]:14:00.000Z 0721-55-01Z53:28:10.000Z BP Sitting (Pre-Dialysis) 122/58 mmHg BP Sitting (Post-Dialysis) 140/62 mmHg Concurrent Access: falseAV Graft Forearm (Left) Arterial BP Standing (Pre-Dialysis) 113/53 mmHg BP Standing (P ost-Dialysis) 146/64 mmHg Sitting Heart Rate Pre-Dialysis 68 BPM Sitting Heart Rate Post-Dialysis 69 BPM Standing Heart Rate Pre-Dialysis 76 BPM Standing Heart Rate Post-Dialysis 72 BPM Temperature Pre-Dialysis 98.3 degF Temperature Post -Dialysis 98.2 degF November 04, 2022 In-Center Hemodialysis Treatment [id number]:15:20.000Z [id number]:15:20.000Z BP Sitting (Pre-Dialysis) 120/58 mmHg BP Sitting (Post-Dialysis) 143/65 mmHg Concurrent Access: falseAV Graft Forearm (Left) Arterial BP Standing (Pre-Dialysis) 122/54 mmHg BP Standing (P ost-Dialysis) 130/65 mmHg Sitting Heart Rate Pre-Dialysis 70 BPM Sitting Heart Rate Post-Dialysis 70 BPM Standing Heart Rate Pre-Dialysis 78 BPM Standing Heart Rate Post-Dialysis 77 BPM Temperature Pre-Dialysis 98 degF Temperature Post -Dialysis 98.4 degF November 02, 2022 In-Center Hemodialysis Treatment [id number]:20:00.000Z [id number]:33:43.000Z BP Sitting (Pre-Dialysis) 137/60 mmHg BP Sitting (Post-Dialysis) 161/85 mmHg Concurrent Access: falseAV Graft Forearm (Left) Arterial BP Standing (Pre-Dialysis) 127/57 mmHg BP Standing (P ost-Dialysis) 161/62 mmHg Sitting Heart Rate Pre-Dialysis 70 BPM Sitting Heart Rate Post-Dialysis 79 BPM Standing Heart Rate Pre-Dialysis 82 BPM Standing Heart Rate Post-Dialysis 73 BPM Temperature Pre-Dialysis 97.8 degF Temperature Post -Dialysis 98.2 degF October 30, 2022 In-Center Hemodialysis Treatment [id number]:20:30.000Z 9973-41-70K19:20:30.000Z BP Sitting (Pre-Dialysis) 120/52 mmHg BP Sitting (Post-Dialysis) 110/45 mmHg Concurrent Access: falseAV Graft Forearm (Left) Arterial BP Standing (Pre-Dialysis) 115/54 mmHg BP Standing (P ost-Dialysis) 112/51 mmHg Sitting Heart Rate Pre-Dialysis 75 BPM Sitting Heart Rate Post-Dialysis 70 BPM Standing Heart Rate Pre-Dialysis 76 BPM Standing Heart Rate Post-Dialysis 73 BPM Temperature Pre-Dialysis 98 degF Temperature Post -Dialysis 97.1 degF October 28, 2022 In-Center Hemodialysis Treatment [id number]:27:00.000Z 2216-07-48H90:03:21.000Z BP Sitting (Pre-Dialysis) 135/54 mmHg BP Sitting (Post-Dialysis) 156/71 mmHg Concurrent Access: falseAV Graft Forearm (Left) Arterial BP Standing (Pre-Dialysis) 115/52 mmHg BP Standing (P ost-Dialysis) 156/71 mmHg Sitting Heart Rate Pre-Dialysis 64 BPM Sitting Heart Rate Post-Dialysis 68 BPM Standing Heart Rate Pre-Dialysis 76 BPM Standing Heart Rate Post-Dialysis 68 BPM Temperature Pre-Dialysis 98 degF Temperature Post -Dialysis 98.1 degF October 26, 2022 In-Center Hemodialysis Treatment [id number]:16:00.000Z [id number]:16:34.000Z BP Sitting (Pre-Dialysis) 126/51 mmHg BP Sitting (Post-Dialysis) 152/59 mmHg Concurrent Access: falseAV Graft Forearm (Left) Arterial BP Standing (Pre-Dialysis) 126/51 mmHg BP Standing (P ost-Dialysis) 152/73 mmHg Sitting Heart Rate Pre-Dialysis 75 BPM Sitting Heart Rate Post-Dialysis 60 BPM Standing Heart Rate Pre-Dialysis 75 BPM Standing Heart Rate Post-Dialysis 63 BPM Temperature Pre-Dialysis 96.5 degF Temperature Post -Dialysis 98.1 degF October 23, 2022 In-Center Hemodialysis Treatment [id number]:25:00.000Z [id number]:23:32.000Z BP Sitting (Pre-Dialysis) 148/62 mmHg BP Sitting (Post-Dialysis) 148/46 mmHg Concurrent Access: falseAV Graft Forearm (Left) Arterial BP Standing (Pre-Dialysis) 152/61 mmHg BP Standing (P ost-Dialysis) 154/66 mmHg Sitting Heart Rate Pre-Dialysis 69 BPM Sitting Heart Rate Post-Dialysis 64 BPM Standing Heart Rate Pre-Dialysis 79 BPM Standing Heart Rate Post-Dialysis 70 BPM Temperature Pre-Dialysis 98.7 degF Temperature Post -Dialysis 98.3 degF October 21, 2022 In-Center Hemodialysis Treatment 4218-19-24B12:20:00.000Z [id number]:22:26.000Z BP Sitting (Pre-Dialysis) 152/86 mmHg BP Sitting (Post-Dialysis) 166/77 mmHg Concurrent Access: falseAV Graft Forearm (Left) Arterial BP Standing (Pre-Dialysis) 144/50 mmHg BP Standing (P ost-Dialysis) 152/71 mmHg Sitting Heart Rate Pre-Dialysis 79 BPM Sitting Heart Rate Post-Dialysis 66 BPM Standing Heart Rate Pre-Dialysis 75 BPM Standing Heart Rate Post-Dialysis 62 BPM Temperature Pre-Dialysis 98.1 degF Temperature Post -Dialysis 98.2 degF October 19, 2022 In-Center Hemodialysis Treatment [id number]:17:00.000Z [id number]:14:43.000Z BP Sitting (Pre-Dialysis) 161/59 mmHg BP Sitting (Post-Dialysis) 181/91 mmHg Concurrent Access: falseAV Graft Forearm (Left) Arterial BP Standing (Pre-Dialysis) 171/68 mmHg BP Standing (P ost-Dialysis) 192/67 mmHg Sitting Heart Rate Pre-Dialysis 72 BPM Sitting Heart Rate Post-Dialysis 63 BPM Standing Heart Rate Pre-Dialysis 74 BPM Standing Heart Rate Post-Dialysis 68 BPM Temperature Pre-Dialysis 98.2 degF October 14, 2022 In-Center Hemodialysis Treatment [id number]:17:00.000Z [id number]:17:47.000Z BP Sitting (Pre-Dialysis) 143/69 mmHg BP Sitting (Post-Dialysis) 174/91 mmHg Concurrent Access: falseAV Graft Forearm (Left) Arterial BP Standing (Pre-Dialysis) 159/75 mmHg BP Standing (P ost-Dialysis) 148/63 mmHg Sitting Heart Rate Pre-Dialysis 71 BPM Sitting Heart Rate Post-Dialysis 67 BPM Standing Heart Rate Pre-Dialysis 80 BPM Standing Heart Rate Post-Dialysis 77 BPM Temperature Pre-Dialysis 97.9 degF Temperature Post -Dialysis 97.3 degF October 12, 2022 In-Center Hemodialysis Treatment [id number]:15:00.000Z [id number]:16:37.000Z BP Sitting (Pre-Dialysis) 158/83 mmHg BP Sitting (Post-Dialysis) 172/69 mmHg Concurrent Access: falseAV Graft Forearm (Left) Arterial BP Standing (Pre-Dialysis) 166/72 mmHg BP Standing (P ost-Dialysis) 161/86 mmHg Sitting Heart Rate Pre-Dialysis 74 BPM Sitting Heart Rate Post-Dialysis 66 BPM Standing Heart Rate Pre-Dialysis 90 BPM Standing Heart Rate Post-Dialysis 72 BPM Temperature Pre-Dialysis 98.2 degF Temperature Post -Dialysis 98.4 degF October 07, 2022 In-Center Hemodialysis Treatment [id number]:18:04.000Z 0570-04-30V43:15:59.000Z BP Sitting (Pre-Dialysis) 157/59 mmHg BP Sitting (Post-Dialysis) 146/56 mmHg Concurrent Access: falseAV Graft Forearm (Left) Arterial BP Standing (Pre-Dialysis) 147/71 mmHg BP Standing (P ost-Dialysis) 132/60 mmHg Sitting Heart Rate Pre-Dialysis 71 BPM Sitting Heart Rate Post-Dialysis 63 BPM Standing Heart Rate Pre-Dialysis 81 BPM Standing Heart Rate Post-Dialysis 73 BPM Temperature Pre-Dialysis 98 degF Temperature Post -Dialysis 98 degF October 05, 2022 In-Center Hemodialysis Treatment 4023-09-71C77:19:00.000Z [id number]:09:59.000Z BP Sitting (Pre-Dialysis) 146/62 mmHg BP Sitting (Post-Dialysis) 177/76 mmHg Concurrent Access: falseAV Graft Forearm (Left) Arterial BP Standing (Pre-Dialysis) 140/61 mmHg BP Standing (P ost-Dialysis) 161/65 mmHg Sitting Heart Rate Pre-Dialysis 70 BPM Sitting Heart Rate Post-Dialysis 67 BPM Standing Heart Rate Pre-Dialysis 76 BPM Standing Heart Rate Post-Dialysis 76 BPM Temperature Pre-Dialysis 97.6 degF Temperature Post -Dialysis 98.2 degF October 02, 2022 In-Center Hemodialysis Treatment [id number]:16:12.000Z [id number]:16:12.000Z BP Sitting (Pre-Dialysis) 150/58 mmHg BP Sitting (Post-Dialysis) 171/77 mmHg Concurrent Access: falseAV Graft Forearm (Left) Arterial BP Standing (Pre-Dialysis) 134/61 mmHg BP Standing (P ost-Dialysis) 179/86 mmHg Sitting Heart Rate Pre-Dialysis 75 BPM Sitting Heart Rate Post-Dialysis 69 BPM Standing Heart Rate Pre-Dialysis 77 BPM Standing Heart Rate Post-Dialysis 76 BPM Temperature Pre-Dialysis 97.8 degF Temperature Post -Dialysis 97 degF September 30, 2022 In-Center Hemodialysis Treatment [id number]:15:00.000Z [id number]:20:51.000Z BP Sitting (Pre-Dialysis) 155/57 mmHg BP Sitting (Post-Dialysis) 173/74 mmHg Concurrent Access: falseAV Graft Forearm (Left) Arterial BP Standing (Pre-Dialysis) 123/63 mmHg BP Standing (P ost-Dialysis) 161/71 mmHg Sitting Heart Rate Pre-Dialysis 70 BPM Sitting Heart Rate Post-Dialysis 71 BPM Standing Heart Rate Pre-Dialysis 75 BPM Standing Heart Rate Post-Dialysis 75 BPM Temperature Pre-Dialysis 98 degF Temperature Post -Dialysis 98 degF September 28, 2022 In-Center Hemodialysis Treatment [id number]:29:04.000Z [id number]:21:34.000Z BP Sitting (Pre-Dialysis) 158/65 mmHg BP Sitting (Post-Dialysis) 165/68 mmHg Concurrent Access: falseAV Graft Forearm (Left) Arterial BP Standing (Pre-Dialysis) 170/73 mmHg BP Standing (P ost-Dialysis) 140/71 mmHg Sitting Heart Rate Pre-Dialysis 71 BPM Sitting Heart Rate Post-Dialysis 67 BPM Standing Heart Rate Pre-Dialysis 75 BPM Standing Heart Rate Post-Dialysis 76 BPM Temperature Pre-Dialysis 97.5 degF Temperature Post -Dialysis 98 degF September 25, 2022 In-Center Hemodialysis Treatment [id number]:17:00.000Z [id number]:21:53.000Z BP Sitting (Pre-Dialysis) 160/63 mmHg BP Sitting (Post-Dialysis) 170/71 mmHg Concurrent Access: falseAV Graft Forearm (Left) Arterial BP Standing (Pre-Dialysis) 159/59 mmHg BP Standing (P ost-Dialysis) 170/71 mmHg Sitting Heart Rate Pre-Dialysis 73 BPM Sitting Heart Rate Post-Dialysis 66 BPM Standing Heart Rate Pre-Dialysis 74 BPM Standing Heart Rate Post-Dialysis 66 BPM Temperature Pre-Dialysis 97.4 degF Temperature Post -Dialysis 98.2 degF September 23, 2022 In-Center Hemodialysis Treatment [id number]:20:48.000Z [id number]:20:48.000Z BP Sitting (Pre-Dialysis) 150/60 mmHg BP Sitting (Post-Dialysis) 157/60 mmHg Concurrent Access: falseAV Graft Forearm (Left) Arterial BP Standing (Pre-Dialysis) 144/61 mmHg BP Standing (P ost-Dialysis) 162/67 mmHg Sitting Heart Rate Pre-Dialysis 68 BPM Sitting Heart Rate Post-Dialysis 73 BPM Standing Heart Rate Pre-Dialysis 73 BPM Standing Heart Rate Post-Dialysis 71 BPM Temperature Pre-Dialysis 97.7 degF Temperature Post -Dialysis 97.6 degF September 21, 2022 In-Center Hemodialysis Treatment [id number]:19:33.000Z [id number]:19:58.000Z BP Sitting (Pre-Dialysis) 128/88 mmHg BP Sitting (Post-Dialysis) 171/66 mmHg Concurrent Access: falseAV Graft Forearm (Left) Arterial BP Standing (Pre-Dialysis) 150/66 mmHg BP Standing (P ost-Dialysis) 162/68 mmHg Sitting Heart Rate Pre-Dialysis 75 BPM Sitting Heart Rate Post-Dialysis 65 BPM Standing Heart Rate Pre-Dialysis 77 BPM Standing Heart Rate Post-Dialysis 74 BPM Temperature Pre-Dialysis 97.4 degF Temperature Post -Dialysis 97.8 degF September 18, 2022 In-Center Hemodialysis Treatment [id number]:13:00.000Z [id number]:13:43.000Z BP Sitting (Pre-Dialysis) 156/67 mmHg BP Sitting (Post-Dialysis) 176/73 mmHg Concurrent Access: falseAV Graft Forearm (Left) Arterial BP Standing (Pre-Dialysis) 126/59 mmHg BP Standing (P ost-Dialysis) 157/68 mmHg Sitting Heart Rate Pre-Dialysis 67 BPM Sitting Heart Rate Post-Dialysis 60 BPM Standing Heart Rate Pre-Dialysis 67 BPM Standing Heart Rate Post-Dialysis 67 BPM Temperature Pre-Dialysis 97.6 degF Temperature Post -Dialysis 97.9 degF September 16, 2022 In-Center Hemodialysis Treatment [id number]:16:00.000Z 6785-41-44O41:23:05.000Z BP Sitting (Pre-Dialysis) 146/63 mmHg BP Sitting (Post-Dialysis) 183/82 mmHg Concurrent Access: falseAV Graft Forearm (Left) Arterial BP Standing (Pre-Dialysis) 134/72 mmHg BP Standing (P ost-Dialysis) 161/70 mmHg Sitting Heart Rate Pre-Dialysis 68 BPM Sitting Heart Rate Post-Dialysis 68 BPM Standing Heart Rate Pre-Dialysis 72 BPM Standing Heart Rate Post-Dialysis 70 BPM Temperature Pre-Dialysis 97.3 degF Temperature Post -Dialysis 97.6 degF September 14, 2022 In-Center Hemodialysis Treatment [id number]:23:00.000Z 5548-08-90U40:32:57.000Z BP Sitting (Pre-Dialysis) 158/66 mmHg BP Sitting (Post-Dialysis) 135/45 mmHg Concurrent Access: falseAV Graft Forearm (Left) Arterial BP Standing (Pre-Dialysis) 142/63 mmHg Sitting Heart Rate Post-Dialysis 64 BPM Sitting Heart Rate Pre-Dialysis 63 BPM Temperatu re Post-Dialysis 98 degF Standing Heart Rate Pre-Dialysis 77 BPM Temperature Pre-Dialysis 98.2 degF September 11, 2022 In-Center Hemodialysis Treatment [id number]:22:44.000Z 1154-25-50E57:22:44.000Z BP Sitting (Pre-Dialysis) 146/61 mmHg BP Sitting (Post-Dialysis) 173/62 mmHg Concurrent Access: falseAV Graft Forearm (Left) Arterial BP Standing (Pre-Dialysis) 138/63 mmHg BP Standing (P ost-Dialysis) 144/70 mmHg Sitting Heart Rate Pre-Dialysis 67 BPM Sitting Heart Rate Post-Dialysis 66 BPM Standing Heart Rate Pre-Dialysis 73 BPM Standing Heart Rate Post-Dialysis 67 BPM Temperature Pre-Dialysis 97.7 degF Temperature Post -Dialysis 98.1 degF September 07, 2022 In-Center Hemodialysis Treatment [id number]:21:00.000Z 5576-28-89V60:22:23.000Z BP Sitting (Pre-Dialysis) 163/65 mmHg BP Sitting (Post-Dialysis) 185/77 mmHg Concurrent Access: falseAV Graft Forearm (Left) Arterial BP Standing (Pre-Dialysis) 161/71 mmHg BP Standing (P ost-Dialysis) 204/90 mmHg Sitting Heart Rate Pre-Dialysis 68 BPM Sitting Heart Rate Post-Dialysis 73 BPM Standing Heart Rate Pre-Dialysis 71 BPM Standing Heart Rate Post-Dialysis 73 BPM Temperature Pre-Dialysis 98.2 degF Temperature Post -Dialysis 98 degF September 04, 2022 In-Center Hemodialysis Treatment [id number]:19:41.000Z 6404-43-86Y33:21:46.000Z BP Sitting (Pre-Dialysis) 157/69 mmHg BP Sitting (Post-Dialysis) 176/70 mmHg Concurrent Access: falseAV Graft Forearm (Left) Arterial BP Standing (Pre-Dialysis) 144/54 mmHg BP Standing (P ost-Dialysis) 158/74 mmHg Sitting Heart Rate Pre-Dialysis 70 BPM Sitting Heart Rate Post-Dialysis 68 BPM Standing Heart Rate Pre-Dialysis 70 BPM Standing Heart Rate Post-Dialysis 71 BPM Temperature Pre-Dialysis 97.6 degF Temperature Post -Dialysis 97.3 degF September 02, 2022 In-Center Hemodialysis Treatment [id number]:22:45.000Z 5559-89-86W47:40:15.000Z BP Sitting (Pre-Dialysis) 158/63 mmHg BP Sitting (Post-Dialysis) 164/67 mmHg Concurrent Access: falseAV Graft Forearm (Left) Arterial BP Standing (Pre-Dialysis) 154/66 mmHg BP Standing (P ost-Dialysis) 163/66 mmHg Sitting Heart Rate Pre-Dialysis 66 BPM Sitting Heart Rate Post-Dialysis 63 BPM Standing Heart Rate Pre-Dialysis 71 BPM Standing Heart Rate Post-Dialysis 66 BPM Temperature Pre-Dialysis 97.9 degF Temperature Post -Dialysis 98.6 degF August 31, 2022 In-Center Hemodialysis Treatment [id number]:25:11.000Z [id number]:23:31.000Z BP Sitting (Pre-Dialysis) 166/57 mmHg BP Sitting (Post-Dialysis) 173/82 mmHg Concurrent Access: falseAV Graft Forearm (Left) Arterial BP Standing (Pre-Dialysis) 176/74 mmHg BP Standing (P ost-Dialysis) 157/67 mmHg Sitting Heart Rate Pre-Dialysis 69 BPM Sitting Heart Rate Post-Dialysis 65 BPM Standing Heart Rate Pre-Dialysis 75 BPM Standing Heart Rate Post-Dialysis 66 BPM Temperature Pre-Dialysis 97.8 degF Temperature Post -Dialysis 98 degF August 28, 2022 In-Center Hemodialysis Treatment [id number]:19:37.000Z 2663-11-43J68:19:37.000Z BP Sitting (Pre-Dialysis) 173/70 mmHg BP Sitting (Post-Dialysis) 175/74 mmHg Concurrent Access: falseAV Graft Forearm (Left) Arterial BP Standing (Pre-Dialysis) 154/70 mmHg BP Standing (P ost-Dialysis) 181/72 mmHg Sitting Heart Rate Pre-Dialysis 69 BPM Sitting Heart Rate Post-Dialysis 67 BPM Standing Heart Rate Pre-Dialysis 70 BPM Standing Heart Rate Post-Dialysis 68 BPM Temperature Pre-Dialysis 98.2 degF Temperature Post -Dialysis 98 degF August 24, 2022 In-Center Hemodialysis Treatment [id number]:24:00.000Z [id number]:25:52.000Z BP Sitting (Pre-Dialysis) 161/74 mmHg BP Sitting (Post-Dialysis) 185/84 mmHg Concurrent Access: falseAV Graft Forearm (Left) Arterial BP Standing (Pre-Dialysis) 164/71 mmHg BP Standing (P ost-Dialysis) 193/86 mmHg Sitting Heart Rate Pre-Dialysis 74 BPM Sitting Heart Rate Post-Dialysis 68 BPM Standing Heart Rate Pre-Dialysis 74 BPM Standing Heart Rate Post-Dialysis 74 BPM Temperature Pre-Dialysis 98.4 degF Temperature Post -Dialysis 97.8 degF August 21, 2022 In-Center Hemodialysis Treatment [id number]:22:00.000Z 5101-54-35K63:24:06.000Z BP Sitting (Pre-Dialysis) 172/75 mmHg BP Sitting (Post-Dialysis) 185/84 mmHg Concurrent Access: falseAV Graft Forearm (Left) Arterial BP Standing (Pre-Dialysis) 174/76 mmHg BP Standing (P ost-Dialysis) 186/97 mmHg Sitting Heart Rate Pre-Dialysis 74 BPM Sitting Heart Rate Post-Dialysis 75 BPM Standing Heart Rate Pre-Dialysis 78 BPM Standing Heart Rate Post-Dialysis 85 BPM Temperature Pre-Dialysis 97.6 degF Temperature Post -Dialysis 97.5 degF August 19, 2022 In-Center Hemodialysis Treatment [id number]:31:00.000Z 2579-37-10C56:23:00.000Z BP Sitting (Pre-Dialysis) 157/55 mmHg BP Sitting (Post-Dialysis) 210/74 mmHg Concurrent Access: falseAV Graft Forearm (Left) Arterial BP Standing (Pre-Dialysis) 160/76 mmHg Sitti ng Heart Rate Post-Dialysis 71 BPM Sitting Heart Rate Pre-Dialysis 72 BPM Temperatu re Post-Dialysis 97.9 degF Standing Heart Rate Pre-Dialysis 70 BPM Temperature Pre-Dialysis 98.4 degF August 17, 2022 In-Center Hemodialysis Treatment [id number]:16:33.000Z [id number]:24:28.000Z BP Sitting (Pre-Dialysis) 180/74 mmHg BP Sitting (Post-Dialysis) 190/74 mmHg Concurrent Access: falseAV Graft Forearm (Left) Arterial BP Standing (Pre-Dialysis) 173/71 mmHg BP Standing (P ost-Dialysis) 176/75 mmHg Sitting Heart Rate Pre-Dialysis 75 BPM Sitting Heart Rate Post-Dialysis 68 BPM Standing Heart Rate Pre-Dialysis 78 BPM Standing Heart Rate Post-Dialysis 73 BPM Temperature Pre-Dialysis 98 degF Temperature Post -Dialysis 98.3 degF August 14, 2022 In-Center Hemodialysis Treatment 2357-53-29U18:31:52.000Z 8441-04-40Z37:31:27.000Z BP Sitting (Pre-Dialysis) 164/67 mmHg BP Sitting (Post-Dialysis) 194/81 mmHg Concurrent Access: falseAV Graft Forearm (Left) Arterial BP Standing (Pre-Dialysis) 155/66 mmHg BP Standing (P ost-Dialysis) 151/71 mmHg Sitting Heart Rate Pre-Dialysis 76 BPM Sitting Heart Rate Post-Dialysis 75 BPM Standing Heart Rate Pre-Dialysis 79 BPM Standing Heart Rate Post-Dialysis 78 BPM Temperature Pre-Dialysis 97.3 degF Temperature Post -Dialysis 98.2 degF August 12, 2022 In-Center Hemodialysis Treatment 8350-03-66C23:43:00.000Z [id number]:43:43.000Z BP Sitting (Pre-Dialysis) 177/77 mmHg BP Sitting (Post-Dialysis) 195/78 mmHg Concurrent Access: falseAV Graft Forearm (Left) Arterial BP Standing (Pre-Dialysis) 166/78 mmHg BP Standing (P ost-Dialysis) 172/73 mmHg Sitting Heart Rate Pre-Dialysis 67 BPM Sitting Heart Rate Post-Dialysis 65 BPM Standing Heart Rate Pre-Dialysis 69 BPM Standing Heart Rate Post-Dialysis 67 BPM Temperature Pre-Dialysis 97.6 degF Temperature Post -Dialysis 97.6 degF August 10, 2022 In-Center Hemodialysis Treatment [id number]:38:17.000Z 5522-24-48T19:39:16.000Z BP Sitting (Pre-Dialysis) 145/70 mmHg BP Sitting (Post-Dialysis) 177/75 mmHg Concurrent Access: falseAV Graft Forearm (Left) Arterial BP Standing (Pre-Dialysis) 157/67 mmHg BP Standing (P ost-Dialysis) 174/72 mmHg Sitting Heart Rate Pre-Dialysis 69 BPM Sitting Heart Rate Post-Dialysis 71 BPM Standing Heart Rate Pre-Dialysis 75 BPM Standing Heart Rate Post-Dialysis 72 BPM Temperature Pre-Dialysis 97.6 degF Temperature Post -Dialysis 97.6 degF August 07, 2022 In-Center Hemodialysis Treatment [id number]:43:54.000Z 3097-45-37G10:57:39.000Z BP Sitting (Pre-Dialysis) 174/69 mmHg BP Sitting (Post-Dialysis) 173/91 mmHg Concurrent Access: falseAV Graft Forearm (Left) Arterial BP Standing (Pre-Dialysis) 166/72 mmHg BP Standing (P ost-Dialysis) 152/78 mmHg Sitting Heart Rate Pre-Dialysis 70 BPM Sitting Heart Rate Post-Dialysis 72 BPM Standing Heart Rate Pre-Dialysis 73 BPM Standing Heart Rate Post-Dialysis 74 BPM Temperature Pre-Dialysis 97.6 degF Temperature Post -Dialysis 97.6 degF August 05, 2022 In-Center Hemodialysis Treatment [id number]:39:00.000Z 4188-71-15W21:30:00.000Z BP Sitting (Pre-Dialysis) 150/63 mmHg BP Sitting (Post-Dialysis) 154/67 mmHg Concurrent Access: falseAV Graft Forearm (Left) Arterial BP Standing (Pre-Dialysis) 151/75 mmHg Sitti ng Heart Rate Post-Dialysis 67 BPM Sitting Heart Rate Pre-Dialysis 72 BPM Temperatu re Post-Dialysis 98.1 degF Standing Heart Rate Pre-Dialysis 78 BPM Temperature Pre-Dialysis 97.8 degF August 03, 2022 In-Center Hemodialysis Treatment [id number]:50:00.000Z 5613-92-99C25:48:00.000Z BP Sitting (Pre-Dialysis) 175/84 mmHg BP Sitting (Post-Dialysis) 174/59 mmHg Concurrent Access: falseAV Graft Forearm (Left) Arterial BP Standing (Pre-Dialysis) 162/69 mmHg Sitti ng Heart Rate Post-Dialysis 66 BPM Sitting Heart Rate Pre-Dialysis 71 BPM Temperatu re Post-Dialysis 98.2 degF Standing Heart Rate Pre-Dialysis 68 BPM Temperature Pre-Dialysis 97.4 degF July 31, 2022 In-Center Hemodialysis Treatment 4276-29-29F64:33:00.000Z [id number]:34:47.000Z BP Sitting (Pre-Dialysis) 142/70 mmHg BP Sitting (Post-Dialysis) 158/71 mmHg Concurrent Access: falseAV Graft Forearm (Left) Arterial BP Standing (Pre-Dialysis) 143/64 mmHg BP Standing (P ost-Dialysis) 159/63 mmHg Sitting Heart Rate Pre-Dialysis 67 BPM Sitting Heart Rate Post-Dialysis 60 BPM Standing Heart Rate Pre-Dialysis 74 BPM Standing Heart Rate Post-Dialysis 73 BPM Temperature Pre-Dialysis 98 degF Temperature Post -Dialysis 97.9 degF July 29, 2022 In-Center Hemodialysis Treatment [id number]:52:08.000Z [id number]:52:08.000Z BP Sitting (Pre-Dialysis) 159/65 mmHg BP Sitting (Post-Dialysis) 156/95 mmHg Concurrent Access: falseAV Graft Forearm (Left) Arterial BP Standing (Pre-Dialysis) 154/71 mmHg BP Standing (P ost-Dialysis) 150/67 mmHg Sitting Heart Rate Pre-Dialysis 63 BPM Sitting Heart Rate Post-Dialysis 73 BPM Standing Heart Rate Pre-Dialysis 68 BPM Standing Heart Rate Post-Dialysis 75 BPM Temperature Pre-Dialysis 97.7 degF Temperature Post -Dialysis 97.2 degF July 27, 2022 In-Center Hemodialysis Treatment 3520-03-29X19:34:00.000Z [id number]:34:00.000Z BP Sitting (Pre-Dialysis) 153/78 mmHg BP Sitting (Post-Dialysis) 157/89 mmHg Concurrent Access: falseAV Graft Forearm (Left) Arterial BP Standing (Pre-Dialysis) 164/75 mmHg Sitti ng Heart Rate Post-Dialysis 75 BPM Sitting Heart Rate Pre-Dialysis 84 BPM Temperatu re Post-Dialysis 98.1 degF Standing Heart Rate Pre-Dialysis 79 BPM Temperature Pre-Dialysis 97.3 degF July 22, 2022 In-Center Hemodialysis Treatment [id number]:32:00.000Z 6957-54-00T91:48:08.000Z BP Sitting (Pre-Dialysis) 171/70 mmHg BP Sitting (Post-Dialysis) 198/83 mmHg Concurrent Access: falseAV Graft Forearm (Left) Arterial BP Standing (Pre-Dialysis) 175/77 mmHg BP Standing (P ost-Dialysis) 195/89 mmHg Sitting Heart Rate Pre-Dialysis 75 BPM Sitting Heart Rate Post-Dialysis 68 BPM Standing Heart Rate Pre-Dialysis 77 BPM Standing Heart Rate Post-Dialysis 73 BPM Temperature Pre-Dialysis 97.3 degF Temperature Post -Dialysis 97.2 degF July 20, 2022 In-Center Hemodialysis Treatment [id number]:33:00.000Z 9258-89-00W88:33:45.000Z BP Sitting (Pre-Dialysis) 177/70 mmHg BP Sitting (Post-Dialysis) 15/91 mmHg Concurrent Access: falseAV Graft Forearm (Left) Arterial BP Standing (Pre-Dialysis) 165/70 mmHg BP Standing (P ost-Dialysis) 160/72 mmHg Sitting Heart Rate Pre-Dialysis 81 BPM Sitting Heart Rate Post-Dialysis 70 BPM Standing Heart Rate Pre-Dialysis 82 BPM Standing Heart Rate Post-Dialysis 75 BPM Temperature Pre-Dialysis 97.5 degF Temperature Post -Dialysis 98 degF July 17, 2022 In-Center Hemodialysis Treatment [id number]:35:45.000Z 0589-13-28A55:35:20.000Z BP Sitting (Pre-Dialysis) 140/65 mmHg BP Sitting (Post-Dialysis) 169/68 mmHg Concurrent Access: falseAV Graft Forearm (Left) Arterial BP Standing (Pre-Dialysis) 149/61 mmHg BP Standing (P ost-Dialysis) 173/82 mmHg Sitting Heart Rate Pre-Dialysis 70 BPM Sitting Heart Rate Post-Dialysis 74 BPM Standing Heart Rate Pre-Dialysis 76 BPM Standing Heart Rate Post-Dialysis 70 BPM Temperature Pre-Dialysis 97.7 degF Temperature Post -Dialysis 98.3 degF July 15, 2022 In-Center Hemodialysis Treatment 1728-03-80V00:51:00.000Z 5370-20-00R53:50:42.000Z BP Sitting (Pre-Dialysis) 167/68 mmHg BP Sitting (Post-Dialysis) 181/73 mmHg Concurrent Access: falseAV Graft Forearm (Left) Arterial BP Standing (Pre-Dialysis) 165/69 mmHg BP Standing (P ost-Dialysis) 161/58 mmHg Sitting Heart Rate Pre-Dialysis 71 BPM Sitting Heart Rate Post-Dialysis 69 BPM Standing Heart Rate Pre-Dialysis 76 BPM Standing Heart Rate Post-Dialysis 72 BPM Temperature Pre-Dialysis 97.9 degF Temperature Post -Dialysis 97.7 degF July 13, 2022 In-Center Hemodialysis Treatment [id number]:49:23.000Z 1146-98-46L63:49:23.000Z BP Sitting (Pre-Dialysis) 167/78 mmHg BP Sitting (Post-Dialysis) 187/78 mmHg Concurrent Access: falseAV Graft Forearm (Left) Arterial BP Standing (Pre-Dialysis) 150/70 mmHg Sitti ng Heart Rate Post-Dialysis 66 BPM Sitting Heart Rate Pre-Dialysis 71 BPM Temperatu re Post-Dialysis 97.7 degF Standing Heart Rate Pre-Dialysis 71 BPM Temperature Pre-Dialysis 97.2 degF July 10, 2022 In-Center Hemodialysis Treatment 7579-20-03Z18:47:00.000Z 5594-78-28A70:48:37.000Z BP Sitting (Pre-Dialysis) 163/72 mmHg BP Sitting (Post-Dialysis) 172/80 mmHg Concurrent Access: falseAV Graft Forearm (Left) Arterial BP Standing (Pre-Dialysis) 155/66 mmHg Sitti ng Heart Rate Post-Dialysis 72 BPM Sitting Heart Rate Pre-Dialysis 73 BPM Temperatu re Post-Dialysis 97.6 degF Standing Heart Rate Pre-Dialysis 76 BPM Temperature Pre-Dialysis 97.6 degF July 08, 2022 In-Center Hemodialysis Treatment 0425-57-44W44:00:00.000Z 1325-16-04Z03:41:06.000Z BP Sitting (Pre-Dialysis) 156/68 mmHg BP Sitting (Post-Dialysis) 176/68 mmHg Concurrent Access: falseAV Graft Forearm (Left) Arterial BP Standing (Pre-Dialysis) 164/66 mmHg BP Standing (P ost-Dialysis) 152/64 mmHg Sitting Heart Rate Pre-Dialysis 67 BPM Sitting Heart Rate Post-Dialysis 71 BPM Standing Heart Rate Pre-Dialysis 74 BPM Standing Heart Rate Post-Dialysis 72 BPM Temperature Pre-Dialysis 97.3 degF Temperature Post -Dialysis 98 degF July 06, 2022 In-Center Hemodialysis Treatment 350 mL/min 600 mL/min Concurrent Access: false July 03, 2022 In-Center Hemodialysis Treatment 20 23 -0 - 25 T1 0: 36 :0 0. 00 0Z 20 23 -0 - 25 T1 3: 49 :2 5. 00 0Z BP Sitting (Pre-Dial ysis) 158/69 mmHg BP Sitting (Post-Rosalba lysis) 173/64 mmHg Concurrent Access: falseAV Graft Forearm (Left) Arterial BP Standing (Pre-Dialysis) 147/69 mmHg BP Standing (P ost-Dialysis) 167/76 mmHg Sitting Heart Rate Pre-Dialysis 75 BPM Sitting Heart Rate Post-Dialysis 71 BPM Standing Heart Rate Pre-Dialysis 74 BPM Standing Heart Rate Post-Dialysis 77 BPM Temperature Pre-Dialysis 97.4 degF Temperature Post -Dialysis 98.3 degF July 01, 2022 In-Center Hemodialysis Treatment 7879-12-12F73:50:00.000Z [id number]:56:56.000Z BP Sitting (Pre-Dialysis) 155/78 mmHg BP Sitting (Post-Dialysis) 167/83 mmHg Concurrent Access: falseAV Graft Forearm (Left) Arterial BP Standing (Pre-Dialysis) 165/74 mmHg BP Standing (P ost-Dialysis) 164/71 mmHg Sitting Heart Rate Pre-Dialysis 70 BPM Sitting Heart Rate Post-Dialysis 69 BPM Standing Heart Rate Pre-Dialysis 65 BPM Standing Heart Rate Post-Dialysis 74 BPM Temperature Pre-Dialysis 97.5 degF Temperature Post -Dialysis 97.8 degF June 29, 2022 In-Center Hemodialysis Treatment 6960-57-57U24:41:00.000Z 9598-97-41K56:37:41.000Z BP Sitting (Pre-Dialysis) 172/68 mmHg BP Sitting (Post-Dialysis) 177/61 mmHg Concurrent Access: falseAV Graft Forearm (Left) Arterial BP Standing (Pre-Dialysis) 152/59 mmHg Sitti ng Heart Rate Post-Dialysis 74 BPM Sitting Heart Rate Pre-Dialysis 72 BPM Temperatu re Post-Dialysis 97.8 degF Standing Heart Rate Pre-Dialysis 78 BPM Temperature Pre-Dialysis 97.3 degF June 26, 2022 In-Center Hemodialysis Treatment [id number]:47:55.000Z 7303-99-75P48:13:45.000Z BP Sitting (Pre-Dialysis) 156/72 mmHg BP Sitting (Post-Dialysis) 154/63 mmHg Concurrent Access: falseAV Graft Forearm (Left) Arterial BP Standing (Pre-Dialysis) 142/68 mmHg BP Standing (P ost-Dialysis) 159/70 mmHg Sitting Heart Rate Pre-Dialysis 75 BPM Sitting Heart Rate Post-Dialysis 69 BPM Standing Heart Rate Pre-Dialysis 79 BPM Standing Heart Rate Post-Dialysis 70 BPM Temperature Pre-Dialysis 97.3 degF Temperature Post -Dialysis 97.3 degF June 24, 2022 In-Center Hemodialysis Treatment [id number]:18:00.000Z 4010-69-81V26:12:00.000Z BP Sitting (Pre-Dialysis) 162/71 mmHg BP Sitting (Post-Dialysis) 145/75 mmHg Concurrent Access: falseAV Graft Forearm (Left) Arterial BP Standing (Pre-Dialysis) 153/70 mmHg BP Standing (P ost-Dialysis) 168/75 mmHg Sitting Heart Rate Pre-Dialysis 67 BPM Sitting Heart Rate Post-Dialysis 70 BPM Standing Heart Rate Pre-Dialysis 76 BPM Standing Heart Rate Post-Dialysis 78 BPM Temperature Pre-Dialysis 97.3 degF Temperature Post -Dialysis 97.6 degF June 22, 2022 In-Center Hemodialysis Treatment 5490-91-01A53:32:00.000Z 4178-41-30X44:33:49.000Z BP Sitting (Pre-Dialysis) 157/72 mmHg BP Sitting (Post-Dialysis) 177/76 mmHg Concurrent Access: falseAV Graft Forearm (Left) Arterial BP Standing (Pre-Dialysis) 166/69 mmHg BP Standing (P ost-Dialysis) 172/72 mmHg Sitting Heart Rate Pre-Dialysis 78 BPM Sitting Heart Rate Post-Dialysis 70 BPM Standing Heart Rate Pre-Dialysis 80 BPM Standing Heart Rate Post-Dialysis 80 BPM Temperature Pre-Dialysis 97.2 degF June 19, 2022 In-Center Hemodialysis Treatment 8627-23-25Q43:46:00.000Z 7166-26-54S05:38:58.000Z BP Sitting (Pre-Dialysis) 164/76 mmHg BP Sitting (Post-Dialysis) 164/78 mmHg Concurrent Access: falseAV Graft Forearm (Left) Arterial BP Standing (Pre-Dialysis) 162/66 mmHg BP Standing (P ost-Dialysis) 167/71 mmHg Sitting Heart Rate Pre-Dialysis 74 BPM Sitting Heart Rate Post-Dialysis 71 BPM Standing Heart Rate Pre-Dialysis 76 BPM Standing Heart Rate Post-Dialysis 74 BPM Temperature Pre-Dialysis 97.6 degF Temperature Post -Dialysis 98 degF June 17, 2022 In-Center Hemodialysis Treatment 5320-24-77T30:44:00.000Z 3118-89-17S20:47:36.000Z BP Sitting (Pre-Dialysis) 156/63 mmHg BP Sitting (Post-Dialysis) 166/70 mmHg Concurrent Access: falseAV Graft Forearm (Left) Arterial BP Standing (Pre-Dialysis) 151/94 mmHg BP Standing (P ost-Dialysis) 167/67 mmHg Sitting Heart Rate Pre-Dialysis 73 BPM Sitting Heart Rate Post-Dialysis 81 BPM Standing Heart Rate Pre-Dialysis 89 BPM Standing Heart Rate Post-Dialysis 76 BPM Temperature Pre-Dialysis 97.4 degF Temperature Post -Dialysis 97.5 degF June 15, 2022 In-Center Hemodialysis Treatment 4250-94-97J40:47:00.000Z 2673-16-46K61:48:08.000Z BP Sitting (Pre-Dialysis) 154/60 mmHg BP Sitting (Post-Dialysis) 167/76 mmHg Concurrent Access: falseAV Graft Forearm (Left) Arterial BP Standing (Pre-Dialysis) 154/68 mmHg BP Standing (P ost-Dialysis) 190/68 mmHg Sitting Heart Rate Pre-Dialysis 71 BPM Sitting Heart Rate Post-Dialysis 70 BPM Standing Heart Rate Pre-Dialysis 75 BPM Standing Heart Rate Post-Dialysis 73 BPM Temperature Pre-Dialysis 97.2 degF Temperature Post -Dialysis 97.9 degF June 12, 2022 In-Center Hemodialysis Treatment 1946-47-08Q51:53:52.000Z 2833-15-91D37:54:42.000Z BP Sitting (Pre-Dialysis) 188/74 mmHg BP Sitting (Post-Dialysis) 163/60 mmHg Concurrent Access: falseAV Graft Forearm (Left) Arterial Sitting Heart Rate Pre-Dialysis 67 BPM BP Standing (Post-Dialysis) 166/66 mmHg Temperature Pre-Dialysis 97.6 degF Sitting Heart Ra te Post-Dialysis 70 BPM Standing Heart Rate Post-Rosalba lysis 76 BPM Temperature Post-Dialysis 97 .9 degF June 10, 2022 In-Center Hemodialysis Treatment [id number]:48:00.000Z 3106-69-80Z56:40:46.000Z BP Sitting (Pre-Dialysis) 149/61 mmHg BP Sitting (Post-Dialysis) 151/88 mmHg Concurrent Access: falseAV Graft Forearm (Left) Arterial BP Standing (Pre-Dialysis) 144/65 mmHg BP Standing (P ost-Dialysis) 165/66 mmHg Sitting Heart Rate Pre-Dialysis 73 BPM Sitting Heart Rate Post-Dialysis 66 BPM Standing Heart Rate Pre-Dialysis 67 BPM Standing Heart Rate Post-Dialysis 78 BPM Temperature Pre-Dialysis 97.6 degF Temperature Post -Dialysis 98.2 degF June 08, 2022 In-Center Hemodialysis Treatment [id number]:44:00.000Z [id number]:47:10.000Z BP Sitting (Pre-Dialysis) 163/61 mmHg BP Sitting (Post-Dialysis) 173/74 mmHg Concurrent Access: falseAV Graft Forearm (Left) Arterial BP Standing (Pre-Dialysis) 162/69 mmHg BP Standing (P ost-Dialysis) 167/77 mmHg Sitting Heart Rate Pre-Dialysis 76 BPM Sitting Heart Rate Post-Dialysis 70 BPM Standing Heart Rate Pre-Dialysis 82 BPM Standing Heart Rate Post-Dialysis 76 BPM Temperature Pre-Dialysis 97.7 degF Temperature Post -Dialysis 98 degF June 05, 2022 In-Center Hemodialysis Treatment [id number]:43:00.000Z [id number]:17:03.000Z BP Sitting (Pre-Dialysis) 159/63 mmHg BP Sitting (Post-Dialysis) 168/59 mmHg Concurrent Access: falseAV Graft Forearm (Left) Arterial BP Standing (Pre-Dialysis) 156/64 mmHg BP Standing (P ost-Dialysis) 170/64 mmHg Sitting Heart Rate Pre-Dialysis 73 BPM Sitting Heart Rate Post-Dialysis 75 BPM Standing Heart Rate Pre-Dialysis 78 BPM Standing Heart Rate Post-Dialysis 74 BPM Temperature Pre-Dialysis 97.6 degF Temperature Post -Dialysis 97.2 degF June 03, 2022 In-Center Hemodialysis Treatment [id number]:55:00.000Z [id number]:58:29.000Z BP Sitting (Pre-Dialysis) 141/64 mmHg BP Sitting (Post-Dialysis) 178/68 mmHg Concurrent Access: falseAV Graft Forearm (Left) Arterial BP Standing (Pre-Dialysis) 157/72 mmHg BP Standing (P ost-Dialysis) 161/53 mmHg Sitting Heart Rate Pre-Dialysis 77 BPM Sitting Heart Rate Post-Dialysis 78 BPM Standing Heart Rate Pre-Dialysis 83 BPM Standing Heart Rate Post-Dialysis 78 BPM Temperature Pre-Dialysis 96.5 degF Temperature Post -Dialysis 98.4 degF June 01, 2022 In-Center Hemodialysis Treatment [id number]:44:00.000Z [id number]:47:42.000Z BP Sitting (Pre-Dialysis) 156/51 mmHg BP Sitting (Post-Dialysis) 161/71 mmHg Concurrent Access: falseAV Graft Forearm (Left) Arterial BP Standing (Pre-Dialysis) 129/60 mmHg BP Standing (P ost-Dialysis) 152/56 mmHg Sitting Heart Rate Pre-Dialysis 69 BPM Sitting Heart Rate Post-Dialysis 68 BPM Standing Heart Rate Pre-Dialysis 71 BPM Standing Heart Rate Post-Dialysis 74 BPM Temperature Pre-Dialysis 97.3 degF Temperature Post -Dialysis 98 degF May 27, 2022 In-Center Hemodialysis Treatment [id number]:50:17.000Z [id number]:50:17.000Z BP Sitting (Pre-Dialysis) 140/63 mmHg BP Sitting (Post-Dialysis) 179/59 mmHg Concurrent Access: falseAV Graft Forearm (Left) Arterial BP Standing (Pre-Dialysis) 145/53 mmHg BP Standing (P ost-Dialysis) 152/56 mmHg Sitting Heart Rate Pre-Dialysis 73 BPM Sitting Heart Rate Post-Dialysis 70 BPM Standing Heart Rate Pre-Dialysis 73 BPM Standing Heart Rate Post-Dialysis 71 BPM Temperature Pre-Dialysis 97.6 degF Temperature Post -Dialysis 98.4 degF May 25, 2022 In-Center Hemodialysis Treatment [id number]:59:00.000Z [id number]:01:32.000Z BP Sitting (Pre-Dialysis) 148/66 mmHg BP Sitting (Post-Dialysis) 162/76 mmHg Concurrent Access: falseAV Graft Forearm (Left) Arterial BP Standing (Pre-Dialysis) 142/58 mmHg BP Standing (P ost-Dialysis) 154/74 mmHg Sitting Heart Rate Pre-Dialysis 68 BPM Sitting Heart Rate Post-Dialysis 66 BPM Standing Heart Rate Pre-Dialysis 73 BPM Standing Heart Rate Post-Dialysis 68 BPM Temperature Pre-Dialysis 97.3 degF Temperature Post -Dialysis 98.6 degF May 22, 2022 In-Center Hemodialysis Treatment [id number]:48:00.000Z [id number]:46:50.000Z BP Sitting (Pre-Dialysis) 141/56 mmHg BP Sitting (Post-Dialysis) 163/69 mmHg Concurrent Access: falseAV Graft Forearm (Left) Arterial BP Standing (Pre-Dialysis) 128/79 mmHg BP Standing (P ost-Dialysis) 150/58 mmHg Sitting Heart Rate Pre-Dialysis 73 BPM Sitting Heart Rate Post-Dialysis 65 BPM Standing Heart Rate Pre-Dialysis 72 BPM Standing Heart Rate Post-Dialysis 70 BPM Temperature Pre-Dialysis 97.8 degF Temperature Post -Dialysis 97.5 degF May 20, 2022 In-Center Hemodialysis Treatment [id number]:47:00.000Z [id number]:46:47.000Z BP Sitting (Pre-Dialysis) 145/54 mmHg BP Sitting (Post-Dialysis) 168/68 mmHg Concurrent Access: falseAV Graft Forearm (Left) Arterial BP Standing (Pre-Dialysis) 136/58 mmHg BP Standing (P ost-Dialysis) 165/69 mmHg Sitting Heart Rate Pre-Dialysis 69 BPM Sitting Heart Rate Post-Dialysis 69 BPM Standing Heart Rate Pre-Dialysis 70 BPM Standing Heart Rate Post-Dialysis 69 BPM Temperature Pre-Dialysis 98 degF Temperature Post -Dialysis 98 degF May 18, 2022 In-Center Hemodialysis Treatment 400 mL/min 600 mL/min Concurrent Access: false May 15, 2022 In-Center Hemodialysis Treatment 20 23 -0 2- 04 T1 1: 56 :0 0. 00 0Z 2 0 2 3 - 0 2 - 0 4 T 1 4 : 5 8 : 2 9 . 0 0 0 Z BP Sitting (Pre-Rosalba lysis) 154/6 4 mmHg BP Sitting (Post-Di alysis) 154/7 2 mmHg Concurrent Access: falseAV Graft Forearm (Left) ArterialCentral Venous Catheter (CVC) Chest (Right) Venous BP Standing (Pre-Dialysis) 154/55 mmHg BP Standing (P ost-Dialysis) 135/63 mmHg Sitting Heart Rate Pre-Dialysis 68 BPM Sitting Heart Rate Post-Dialysis 63 BPM Standing Heart Rate Pre-Dialysis 72 BPM Standing Heart Rate Post-Dialysis 68 BPM Temperature Pre-Dialysis 97.3 degF Temperature Post -Dialysis 97.3 degF May 13, 2022 In-Center Hemodialysis Treatment [id number]:44:00.000Z [id number]:45:38.000Z BP Sitting (Pre-Dialysis) 155/70 mmHg BP Sitting (Post-Dialysis) 162/72 mmHg Concurrent Access: falseAV Graft Forearm (Left) ArterialCentral Venous Catheter (CVC) Chest (Right) Venous BP Standing (Pre-Dialysis) 143/64 mmHg BP Standing (P ost-Dialysis) 152/72 mmHg Sitting Heart Rate Pre-Dialysis 75 BPM Sitting Heart Rate Post-Dialysis 67 BPM Standing Heart Rate Pre-Dialysis 71 BPM Standing Heart Rate Post-Dialysis 69 BPM Temperature Pre-Dialysis 97.3 degF Temperature Post -Dialysis 97.8 degF May 11, 2022 In-Center Hemodialysis Treatment [id number]:47:00.000Z [id number]:26:28.000Z BP Sitting (Pre-Dialysis) 166/60 mmHg BP Sitting (Post-Dialysis) 148/79 mmHg Concurrent Access: falseAV Graft Forearm (Left) ArterialCentral Venous Catheter (CVC) Chest (Right) Venous BP Standing (Pre-Dialysis) 147/63 mmHg BP Standing (P ost-Dialysis) 154/59 mmHg Sitting Heart Rate Pre-Dialysis 68 BPM Sitting Heart Rate Post-Dialysis 71 BPM Standing Heart Rate Pre-Dialysis 73 BPM Standing Heart Rate Post-Dialysis 72 BPM Temperature Pre-Dialysis 97.3 degF Temperature Post -Dialysis 97.8 degF May 08, 2022 In-Center Hemodialysis Treatment 0418-09-55R73:51:53.000Z [id number]:51:53.000Z BP Sitting (Pre-Dialysis) 149/51 mmHg BP Sitting (Post-Dialysis) 169/70 mmHg Concurrent Access: falseAV Graft Forearm (Left) ArterialCentral Venous Catheter (CVC) Chest (Right) Venous BP Standing (Pre-Dialysis) 133/65 mmHg BP Standing (P ost-Dialysis) 157/66 mmHg Sitting Heart Rate Pre-Dialysis 69 BPM Sitting Heart Rate Post-Dialysis 74 BPM Standing Heart Rate Pre-Dialysis 71 BPM Standing Heart Rate Post-Dialysis 75 BPM Temperature Pre-Dialysis 97.2 degF Temperature Post -Dialysis 98.2 degF May 06, 2022 In-Center Hemodialysis Treatment [id number]:50:00.000Z [id number]:58:31.000Z BP Sitting (Pre-Dialysis) 151/69 mmHg BP Sitting (Post-Dialysis) 159/55 mmHg Concurrent Access: falseCentral Venous Catheter (CVC) Chest (Right) ArterialAV Graft Forearm (Left) Venous BP Standing (Pre-Dialysis) 163/62 mmHg BP Standing (P ost-Dialysis) 166/71 mmHg Sitting Heart Rate Pre-Dialysis 83 BPM Sitting Heart Rate Post-Dialysis 76 BPM Standing Heart Rate Pre-Dialysis 82 BPM Standing Heart Rate Post-Dialysis 77 BPM Temperature Pre-Dialysis 97.6 degF Temperature Post -Dialysis 97.6 degF May 04, 2022 In-Center Hemodialysis Treatment [id number]:45:00.000Z [id number]:47:40.000Z BP Sitting (Pre-Dialysis) 155/68 mmHg BP Sitting (Post-Dialysis) 166/65 mmHg Concurrent Access: falseCentral Venous Catheter (CVC) Chest (Right) ArterialAV Graft Forearm (Left) Venous BP Standing (Pre-Dialysis) 139/65 mmHg BP Standing (P ost-Dialysis) 153/66 mmHg Sitting Heart Rate Pre-Dialysis 70 BPM Sitting Heart Rate Post-Dialysis 72 BPM Standing Heart Rate Pre-Dialysis 72 BPM Standing Heart Rate Post-Dialysis 77 BPM Temperature Pre-Dialysis 98.2 degF Temperature Post -Dialysis 97.3 degF May 01, 2022 In-Center Hemodialysis Treatment [id number]:49:00.000Z [id number]:51:14.000Z BP Sitting (Pre-Dialysis) 127/57 mmHg BP Sitting (Post-Dialysis) 156/53 mmHg Concurrent Access: falseCentral Venous Catheter (CVC) Chest (Right) ArterialAV Graft Forearm (Left) Venous BP Standing (Pre-Dialysis) 124/61 mmHg BP Standing (P ost-Dialysis) 140/59 mmHg Sitting Heart Rate Pre-Dialysis 68 BPM Sitting Heart Rate Post-Dialysis 70 BPM Standing Heart Rate Pre-Dialysis 68 BPM Standing Heart Rate Post-Dialysis 71 BPM Temperature Pre-Dialysis 97.3 degF Temperature Post -Dialysis 97.3 degF April 29, 2022 In-Center Hemodialysis Treatment [id number]:42:00.000Z [id number]:45:00.000Z BP Sitting (Pre-Dialysis) 154/69 mmHg BP Sitting (Post-Dialysis) 149/67 mmHg Concurrent Access: falseCentral Venous Catheter (CVC) Chest (Right) ArterialAV Graft Forearm (Left) Venous BP Standing (Pre-Dialysis) 145/67 mmHg BP Standing (P ost-Dialysis) 161/69 mmHg Sitting Heart Rate Pre-Dialysis 76 BPM Sitting Heart Rate Post-Dialysis 70 BPM Standing Heart Rate Pre-Dialysis 72 BPM Standing Heart Rate Post-Dialysis 78 BPM Temperature Pre-Dialysis 97.4 degF Temperature Post -Dialysis 97.6 degF April 27, 2022 In-Center Hemodialysis Treatment [id number]:38:00.000Z [id number]:42:05.000Z BP Sitting (Pre-Dialysis) 154/69 mmHg BP Sitting (Post-Dialysis) 162/60 mmHg Concurrent Access: falseCentral Venous Catheter (CVC) Chest (Right) ArterialAV Graft Forearm (Left) Venous BP Standing (Pre-Dialysis) 141/45 mmHg BP Standing (P ost-Dialysis) 152/53 mmHg Sitting Heart Rate Pre-Dialysis 68 BPM Sitting Heart Rate Post-Dialysis 62 BPM Standing Heart Rate Pre-Dialysis 72 BPM Standing Heart Rate Post-Dialysis 68 BPM Temperature Pre-Dialysis 97.2 degF Temperature Post -Dialysis 98 degF April 24, 2022 In-Center Hemodialysis Treatment [id number]:06:00.000Z [id number]:09:30.000Z BP Sitting (Pre-Dialysis) 156/68 mmHg BP Sitting (Post-Dialysis) 168/80 mmHg Concurrent Access: falseCentral Venous Catheter (CVC) Chest (Right) ArterialAV Graft Forearm (Left) Venous BP Standing (Pre-Dialysis) 145/61 mmHg BP Standing (P ost-Dialysis) 171/82 mmHg Sitting Heart Rate Pre-Dialysis 71 BPM Sitting Heart Rate Post-Dialysis 69 BPM Standing Heart Rate Pre-Dialysis 71 BPM Standing Heart Rate Post-Dialysis 66 BPM Temperature Pre-Dialysis 97.3 degF Temperature Post -Dialysis 98.1 degF April 22, 2022 In-Center Hemodialysis Treatment [id number]:03:00.000Z [id number]:12:58.000Z BP Sitting (Pre-Dialysis) 154/57 mmHg BP Sitting (Post-Dialysis) 151/54 mmHg Concurrent Access: falseCentral Venous Catheter (CVC) Chest (Right) ArterialAV Graft Forearm (Left) Venous BP Standing (Pre-Dialysis) 141/67 mmHg BP Standing (P ost-Dialysis) 145/62 mmHg Sitting Heart Rate Pre-Dialysis 75 BPM Sitting Heart Rate Post-Dialysis 70 BPM Temperature Pre-Dialysis 98.1 degF Standin g Heart Rate Post-Dialysis 72 BPM Temperature Post-Dialysis 97 .2 degF April 20, 2022 In-Center Hemodialysis Treatment [id number]:11:00.000Z [id number]:14:57.000Z BP Sitting (Pre-Dialysis) 156/61 mmHg BP Sitting (Post-Dialysis) 140/72 mmHg Concurrent Access: falseCentral Venous Catheter (CVC) Chest (Right) ArterialAV Graft Forearm (Left) Venous BP Standing (Pre-Dialysis) 147/60 mmHg BP Standing (P ost-Dialysis) 161/63 mmHg Sitting Heart Rate Pre-Dialysis 80 BPM Sitting Heart Rate Post-Dialysis 69 BPM Standing Heart Rate Pre-Dialysis 79 BPM Standing Heart Rate Post-Dialysis 78 BPM Temperature Pre-Dialysis 97.5 degF Temperature Post -Dialysis 97.6 degF April 17, 2022 In-Center Hemodialysis Treatment [id number]:01:36.000Z [id number]:18:41.000Z BP Sitting (Pre-Dialysis) 141/67 mmHg BP Sitting (Post-Dialysis) 166/69 mmHg Concurrent Access: falseCentral Venous Catheter (CVC) Chest (Right) ArterialAV Graft Forearm (Left) Venous BP Standing (Pre-Dialysis) 140/64 mmHg BP Standing (P ost-Dialysis) 161/67 mmHg Sitting Heart Rate Pre-Dialysis 74 BPM Sitting Heart Rate Post-Dialysis 66 BPM Standing Heart Rate Pre-Dialysis 78 BPM Standing Heart Rate Post-Dialysis 71 BPM Temperature Pre-Dialysis 97.6 degF Temperature Post -Dialysis 97.4 degF April 15, 2022 In-Center Hemodialysis Treatment [id number]:04:00.000Z [id number]:04:54.000Z BP Sitting (Pre-Dialysis) 165/64 mmHg BP Sitting (Post-Dialysis) 173/62 mmHg Concurrent Access: falseCentral Venous Catheter (CVC) Chest (Right) ArterialAV Graft Forearm (Left) Venous BP Standing (Pre-Dialysis) 158/68 mmHg BP Standing (P ost-Dialysis) 163/56 mmHg Sitting Heart Rate Pre-Dialysis 73 BPM Sitting Heart Rate Post-Dialysis 71 BPM Standing Heart Rate Pre-Dialysis 79 BPM Standing Heart Rate Post-Dialysis 75 BPM Temperature Pre-Dialysis 97 degF Temperature Post -Dialysis 98.1 degF April 13, 2022 In-Center Hemodialysis Treatment [id number]:07:00.000Z [id number]:10:13.000Z BP Sitting (Pre-Dialysis) 143/67 mmHg BP Sitting (Post-Dialysis) 164/75 mmHg Concurrent Access: falseCentral Venous Catheter (CVC) Chest (Right) ArterialAV Graft Forearm (Left) Venous BP Standing (Pre-Dialysis) 127/57 mmHg BP Standing (P ost-Dialysis) 165/64 mmHg Sitting Heart Rate Pre-Dialysis 76 BPM Sitting Heart Rate Post-Dialysis 76 BPM Standing Heart Rate Pre-Dialysis 79 BPM Standing Heart Rate Post-Dialysis 81 BPM Temperature Pre-Dialysis 97.6 degF Temperature Post -Dialysis 96.3 degF April 10, 2022 In-Center Hemodialysis Treatment [id number]:58:00.000Z [id number]:07:14.000Z BP Sitting (Pre-Dialysis) 148/71 mmHg BP Sitting (Post-Dialysis) 168/62 mmHg Concurrent Access: falseCentral Venous Catheter (CVC) Chest (Right) ArterialAV Graft Forearm (Left) Venous BP Standing (Pre-Dialysis) 139/66 mmHg BP Standing (P ost-Dialysis) 165/74 mmHg Sitting Heart Rate Pre-Dialysis 78 BPM Sitting Heart Rate Post-Dialysis 76 BPM Standing Heart Rate Pre-Dialysis 81 BPM Standing Heart Rate Post-Dialysis 79 BPM Temperature Pre-Dialysis 97.9 degF Temperature Post -Dialysis 97.7 degF April 08, 2022 In-Center Hemodialysis Treatment [id number]:16:00.000Z [id number]:16:39.000Z BP Sitting (Pre-Dialysis) 150/63 mmHg BP Sitting (Post-Dialysis) 164/75 mmHg Concurrent Access: falseCentral Venous Catheter (CVC) Chest (Right) ArterialAV Graft Forearm (Left) Venous Sitting Heart Rate Pre-Dialysis 74 BPM BP Standing (Post-Dialysis) 140/60 mmHg Temperature Pre-Dialysis 98.1 degF Sitting Heart Ra te Post-Dialysis 60 BPM Standing Heart Rate Post-Rosalba lysis 60 BPM Temperature Post-Dialysis 97 .8 degF April 06, 2022 In-Center Hemodialysis Treatment [id number]:08:00.000Z [id number]:08:10.000Z BP Sitting (Pre-Dialysis) 146/88 mmHg BP Sitting (Post-Dialysis) 164/67 mmHg Concurrent Access: falseCentral Venous Catheter (CVC) Chest (Right) ArterialAV Graft Forearm (Left) Venous BP Standing (Pre-Dialysis) 137/67 mmHg BP Standing (P ost-Dialysis) 170/83 mmHg Sitting Heart Rate Pre-Dialysis 70 BPM Sitting Heart Rate Post-Dialysis 69 BPM Standing Heart Rate Pre-Dialysis 71 BPM Standing Heart Rate Post-Dialysis 74 BPM Temperature Pre-Dialysis 96.7 degF Temperature Post -Dialysis 97.3 degF April 01, 2022 In-Center Hemodialysis Treatment [id number]:02:00.000Z [id number]:04:38.000Z BP Sitting (Pre-Dialysis) 150/74 mmHg BP Sitting (Post-Dialysis) 154/53 mmHg Concurrent Access: falseCentral Venous Catheter (CVC) Chest (Right) ArterialAV Graft Forearm (Left) Venous BP Standing (Pre-Dialysis) 147/65 mmHg BP Standing (P ost-Dialysis) 135/51 mmHg Sitting Heart Rate Pre-Dialysis 71 BPM Sitting Heart Rate Post-Dialysis 66 BPM Standing Heart Rate Pre-Dialysis 77 BPM Standing Heart Rate Post-Dialysis 73 BPM Temperature Pre-Dialysis 97.3 degF Temperature Post -Dialysis 97.3 degF March 29, 2022 In-Center Hemodialysis Treatment [id number]:10:00.000Z [id number]:12:44.000Z BP Sitting (Pre-Dialysis) 153/72 mmHg BP Sitting (Post-Dialysis) 166/69 mmHg Concurrent Access: falseCentral Venous Catheter (CVC) Chest (Right) ArterialAV Graft Forearm (Left) Venous BP Standing (Pre-Dialysis) 160/64 mmHg BP Standing (P ost-Dialysis) 162/72 mmHg Sitting Heart Rate Pre-Dialysis 65 BPM Sitting Heart Rate Post-Dialysis 78 BPM Standing Heart Rate Pre-Dialysis 70 BPM Standing Heart Rate Post-Dialysis 82 BPM Temperature Pre-Dialysis 98.2 degF Temperature Post -Dialysis 97.7 degF March 27, 2022 In-Center Hemodialysis Treatment [id number]:50:00.000Z [id number]:51:40.000Z BP Sitting (Pre-Dialysis) 138/77 mmHg BP Sitting (Post-Dialysis) 166/66 mmHg Concurrent Access: falseCentral Venous Catheter (CVC) Chest (Right) ArterialAV Graft Forearm (Left) Venous BP Standing (Pre-Dialysis) 156/66 mmHg BP Standing (P ost-Dialysis) 148/69 mmHg Sitting Heart Rate Pre-Dialysis 80 BPM Sitting Heart Rate Post-Dialysis 69 BPM Standing Heart Rate Pre-Dialysis 81 BPM Standing Heart Rate Post-Dialysis 77 BPM Temperature Pre-Dialysis 97.2 degF Temperature Post -Dialysis 98.2 degF March 25, 2022 In-Center Hemodialysis Treatment [id number]:05:00.000Z [id number]:04:24.000Z BP Sitting (Pre-Dialysis) 158/61 mmHg BP Sitting (Post-Dialysis) 168/70 mmHg Concurrent Access: falseCentral Venous Catheter (CVC) Chest (Right) ArterialAV Graft Forearm (Left) Venous BP Standing (Pre-Dialysis) 163/77 mmHg BP Standing (P ost-Dialysis) 177/75 mmHg Sitting Heart Rate Pre-Dialysis 81 BPM Sitting Heart Rate Post-Dialysis 76 BPM Standing Heart Rate Pre-Dialysis 86 BPM Standing Heart Rate Post-Dialysis 82 BPM Temperature Pre-Dialysis 97.3 degF Temperature Post -Dialysis 97.5 degF March 23, 2022 In-Center Hemodialysis Treatment [id number]:16:00.000Z [id number]:01:00.000Z BP Sitting (Pre-Dialysis) 164/73 mmHg BP Sitting (Post-Dialysis) 156/66 mmHg Concurrent Access: falseCentral Venous Catheter (CVC) Chest (Right) ArterialAV Graft Forearm (Left) Venous BP Standing (Pre-Dialysis) 126/65 mmHg BP Standing (P ost-Dialysis) 157/66 mmHg Sitting Heart Rate Pre-Dialysis 77 BPM Sitting Heart Rate Post-Dialysis 79 BPM Standing Heart Rate Pre-Dialysis 79 BPM Standing Heart Rate Post-Dialysis 79 BPM Temperature Pre-Dialysis 97.3 degF Temperature Post -Dialysis 97.8 degF DIALYSIS ORDER Dialysis Procedure Orders Type of Dialysis Procedure Order Order Date/Time Observations In-Center Hemodialysis Treatment June 102024 Target Weight 43 kg Dialysate Flow Rate 600 mL/min Blood Flow Rate 350 mL/min Treatment Time 180 min(total) Max UF Rate 13 mL/kg/hr Base Sodium Dialysate Base Sodium 138 mE q/L dialysate_temp 37 C BiCarb Dialysate BiCarbonate 38 meq/L Access Concurrent No Arterial Access AV Graft (Forearm (L eft)) Venous Access AV Graft (Forearm (L eft)) Arterial Needle Display YEISON SCOTT, 16 G x 1 , SHARP , TWIN Venous Needle YEISON SCOTT, 16G x 1 , SHARP , TWIN Dialyzer Nipro Elisio 15H 126 4 [email or web address] Dialysate Bath Potassium Potassium 2 mEq /L Dialysate Bath Calcium Calcium 2.5 mEq/L Results Adequacy Description Draw Date Result/Unit Status Ref Range Result Comments Residual kt/v 2024-07-21 00:40:40 F DIALYZER FLOW-QD 2024-07-21 00:40:40 600 mL/min F VT (KT/V TX VOL) 2024-07-21 00:40:40 31.3 L F PATIENT AGE 2024-07-21 00:40:40 78 Years F spKt/V 2024-07-21 00:40:40 1.48 F URR% 2024-07-21 00:40:40 73 % F TBW (Mccoy) 2024-07-21 00:40:40 25.29 Liters F WEIGHT - PRE DAY 1 2024-07-21 00:40:40 43.9 kg F TOTAL HOURS/WEEK DIALYSIS 2024-07-21 00:40:40 8 hrs F stdKt/V (DIAL) 2024-07-21 00:40:40 N/A F stdKT/V Total 2024-07-21 00:40:40 N/A F CURRENT KRU 2024-07-21 00:40:40 F WEIGHT - POST DAY 1 2024-07-21 00:40:40 42.8 kg F AMPUTATE FACTOR 2024-07-21 00:40:40 0 F LENGTH OF DIALYSIS 2024-07-21 00:40:40 177 min F VM (KT/V MEAN VOL) 2024-07-21 00:40:40 29.2 F nPCR 2024-07-21 00:40:40 0.65 G/KG/D F Total Kt/V 2024-07-21 00:40:40 1.48 F eKt/V 2024-07-21 00:40:40 1.23 F WEIGHT (KG) 2024-07-21 00:40:40 43 kg F KT/V PRESCRIBED 2024-07-21 00:40:40 2.18 F BSA TORO 2024-07-21 00:40:40 1.39 sq m F Dialyzer VERONIKA 2024-07-21 00:40:40 1264 Calc F PRESCRIBED DAYS/WEEK 2024-07-21 00:40:40 3 Day/Wk F BLOOD FLOW-QWB 2024-07-21 00:40:40 349 F HEIGHT IN INCHES 2024-07-21 00:40:40 62 Inches F Std Renal KT/V 2024-07-21 00:40:40 N/A F Urea nitrogen [Mass/volume] in Serum or Plasma 2024-07-21 00:39:14 30 mg/dL F 9.0-23.0 Urea nitrogen [Mass/volume] in Serum or Plasma --post dialysis 2024-07-20 19:15:17 8 mg/dL F 9.0-23.0 Creatinine [Mass/volume] in Serum or Plasma 2024-06-29 15:09:18 4.95 mg/dL F 0.5-1.1 URR% 2024-06-15 15:36:23 78 % F TBW (Mccoy) 2024-06-15 15:36:23 25.27 Liters F HEIGHT IN INCHES 2024-06-15 15:36:23 62 Inches F Std Renal KT/V 2024-06-15 15:36:23 N/A F WEIGHT - POST DAY 1 2024-06-15 15:36:23 42.7 kg F Residual kt/v 2024-06-15 15:36:23 F Total Kt/V 2024-06-15 15:36:23 1.73 F spKt/V 2024-06-15 15:36:23 1.73 F VM (KT/V MEAN VOL) 2024-06-15 15:36:23 28.5 F WEIGHT (KG) 2024-06-15 15:36:23 43 kg F PATIENT AGE 2024-06-15 15:36:23 78 Years F stdKT/V Total 2024-06-15 15:36:23 N/A F nPCR 2024-06-15 15:36:23 0.8 G/KG/D F Dialyzer VERONIKA 2024-06-15 15:36:23 1264 Calc F PRESCRIBED DAYS/WEEK 2024-06-15 15:36:23 3 Day/Wk F KT/V PRESCRIBED 2024-06-15 15:36:23 2.14 F BLOOD FLOW-QWB 2024-06-15 15:36:23 328 F CURRENT KRU 2024-06-15 15:36:23 F AMPUTATE FACTOR 2024-06-15 15:36:23 0 F BSA TORO 2024-06-15 15:36:23 1.39 sq m F eKt/V 2024-06-15 15:36:23 1.42 F LENGTH OF DIALYSIS 2024-06-15 15:36:23 173 min F VT (KT/V TX VOL) 2024-06-15 15:36:23 25.3 L F TOTAL HOURS/WEEK DIALYSIS 2024-06-15 15:36:23 8 hrs F stdKt/V (DIAL) 2024-06-15 15:36:23 N/A F DIALYZER FLOW-QD 2024-06-15 15:36:23 600 mL/min F WEIGHT - PRE DAY 1 2024-06-15 15:36:23 44.2 kg F Urea nitrogen [Mass/volume] in Serum or Plasma 2024-06-15 15:34:20 36 mg/dL F 9.0-23.0 Urea nitrogen [Mass/volume] in Serum or Plasma --post dialysis 2024-06-15 15:16:17 8 mg/dL F 9.0-23.0 Creatinine [Mass/volume] in Serum or Plasma 2024-06-01 18:20:15 4.88 mg/dL F 0.5-1.1 TOTAL HOURS/WEEK DIALYSIS 2024-05-18 15:50:30 8 hrs F stdKT/V Total 2024-05-18 15:50:30 N/A F Std Renal KT/V 2024-05-18 15:50:30 N/A F stdKt/V (DIAL) 2024-05-18 15:50:30 N/A F WEIGHT - PRE DAY 1 2024-05-18 15:50:30 43.2 kg F CURRENT KRU 2024-05-18 15:50:30 F BSA TORO 2024-05-18 15:50:30 1.39 sq m F Total Kt/V 2024-05-18 15:50:30 1.34 F HEIGHT IN INCHES 2024-05-18 15:50:30 62 Inches F AMPUTATE FACTOR 2024-05-18 15:50:30 0 F LENGTH OF DIALYSIS 2024-05-18 15:50:30 122 min F WEIGHT - POST DAY 1 2024-05-18 15:50:30 43 kg F KT/V PRESCRIBED 2024-05-18 15:50:30 1.51 F PATIENT AGE 2024-05-18 15:50:30 78 Years F DIALYZER FLOW-QD 2024-05-18 15:50:30 600 mL/min F URR% 2024-05-18 15:50:30 72 % F nPCR 2024-05-18 15:50:30 0.64 G/KG/D F BLOOD FLOW-QWB 2024-05-18 15:50:30 350 F spKt/V 2024-05-18 15:50:30 1.34 F Residual kt/v 2024-05-18 15:50:30 F VT (KT/V TX VOL) 2024-05-18 15:50:30 23.8 L F WEIGHT (KG) 2024-05-18 15:50:30 43 kg F eKt/V 2024-05-18 15:50:30 1.04 F VM (KT/V MEAN VOL) 2024-05-18 15:50:30 29.6 F Dialyzer VERONIKA 2024-05-18 15:50:30 1264 Calc F PRESCRIBED DAYS/WEEK 2024-05-18 15:50:30 3 Day/Wk F TBW (Mccoy) 2024-05-18 15:50:30 25.34 Liters F Urea nitrogen [Mass/volume] in Serum or Plasma --post dialysis 2024-05-18 15:48:25 9 mg/dL F 9.0-23.0 Urea nitrogen [Mass/volume] in Serum or Plasma 2024-05-18 14:55:22 32 mg/dL F 9.0-23.0 Creatinine [Mass/volume] in Serum or Plasma 2024-05-04 18:18:23 3.88 mg/dL F 0.5-1.1 Creatinine [Mass/volume] in Serum or Plasma 2024-03-31 00:17:17 3.91 mg/dL F 0.5-1.1 Creatinine [Mass/volume] in Serum or Plasma 2024-03-02 18:15:16 3.99 mg/dL F 0.5-1.1 Creatinine [Mass/volume] in Serum or Plasma 2024-02-03 15:18:15 3.96 mg/dL F 0.5-1.1 Creatinine [Mass/volume] in Serum or Plasma 2023-12-30 13:00:25 3.43 mg/dL F 0.5-1.1 Creatinine [Mass/volume] in Serum or Plasma 2023-12-02 14:08:14 3.18 mg/dL F 0.5-1.1 Creatinine [Mass/volume] in Serum or Plasma 2023-10-28 17:32:54 2.86 mg/dL F 0.5-1.1 Creatinine [Mass/volume] in Serum or Plasma 2023-09-02 14:38:30 2.67 mg/dL F 0.5-1.1 Creatinine [Mass/volume] in Serum or Plasma 2023-07-29 15:49:50 2.55 mg/dL F 0.5-1.1 Creatinine [Mass/volume] in Serum or Plasma 2023-07-01 15:29:29 2.7 mg/dL F 0.5-1.1 Creatinine [Mass/volume] in Serum or Plasma 2023-06-03 15:06:56 2.71 mg/dL F 0.5-1.1 Creatinine [Mass/volume] in Serum or Plasma 2023-04-29 16:36:15 2.52 mg/dL F 0.5-1.1 Creatinine [Mass/volume] in Serum or Plasma 2023-04-01 15:26:33 3.01 mg/dL F 0.5-1.1 Creatinine [Mass/volume] in Serum or Plasma 2023-02-25 15:29:30 3.49 mg/dL F 0.5-1.1 Creatinine [Mass/volume] in Serum or Plasma 2023-01-28 14:15:31 3.23 mg/dL F 0.5-1.1 Creatinine [Mass/volume] in Serum or Plasma 2022 17:26:37 2.95 mg/dL F 0.5-1.1 Creatinine [Mass/volume] in Serum or Plasma 2022-12-03 13:29:33 3.12 mg/dL F 0.5-1.1 Creatinine [Mass/volume] in Serum or Plasma 2022-10-29 15:38:20 3.53 mg/dL F 0.5-1.1 Creatinine [Mass/volume] in Serum or Plasma 2022-10-01 17:23:13 3.59 mg/dL F 0.5-1.1 Creatinine [Mass/volume] in Serum or Plasma 2022-09-01 17:28:11 3.42 mg/dL F 0.5-1.1 Creatinine [Mass/volume] in Serum or Plasma 2022-07-30 15:10:15 3.04 mg/dL F 0.5-1.1 Creatinine [Mass/volume] in Serum or Plasma 2022-07-02 18:33:16 2.63 mg/dL F 0.5-1.1 Creatinine [Mass/volume] in Serum or Plasma 2022-06-04 15:10:00 2.89 mg/dL F 0.5-1.1 Creatinine [Mass/volume] in Serum or Plasma 2022-04-30 18:55:46 3.46 mg/dL F 0.5-1.1 Creatinine [Mass/volume] in Serum or Plasma 2022-04-06 08:06:05 F Canceled - Specimen not received 5 days past draw date Anemia Description Draw Date Result/Unit Status Ref Range Result Comments HCT CALC HGBX3 2024-07-20 17:20:55 35.1 % F 37.0-47.0 Hemoglobin [Mass/volume] in Blood 2024-07-20 17:20:16 11.7 g/dL F 12.0-16.0 HCT CALC HGBX3 2024-06-29 17:18:11 33.3 % F 37.0-47.0 Erythrocyte distribution width [Ratio] by Automated count 2024-06-29 17:17:18 19.4 % F 11.0-15.0 Hemoglobin [Mass/volume] in Blood 2024-06-29 17:17:18 11.1 g/dL F 12.0-16.0 Platelets [#/volume] in Blood by Automated count 2024-06-29 17:17:18 141 x 10^3 cells/uL F 140.0-450.0 MCH [Entitic mass] by Automated count 2024-06-29 17:17:18 28.8 pg F 25.9-34.2 MCHC [Mass/volume] by Automated count 2024-06-29 17:17:18 35 g/dL F 29.6-35.3 Erythrocytes [#/volume] in Blood by Automated count 2024-06-29 17:17:18 3.86 x 10^6 cells/uL F 3.85-5.2 Hematocrit [Volume Fraction] of Blood by Automated count 2024-06-29 17:17:18 31.8 % F 37.0-47.0 MCV [Entitic volume] by Automated count 2024-06-29 17:17:18 82.4 fL F 80.0-100.0 HCT CALC HGBX3 2024-06-15 15:45:29 34.8 % F 37.0-47.0 Hemoglobin [Mass/volume] in Blood 2024-06-15 15:44:14 11.6 g/dL F 12.0-16.0 HCT CALC HGBX3 2024-06-08 14:37:17 36.3 % F 37.0-47.0 Hemoglobin [Mass/volume] in Blood 2024-06-08 14:36:17 12.1 g/dL F 12.0-16.0 IRON SATURATION 2024-06-02 08:10:17 24 % F 16.0-46.0 TIBC 2024-06-02 08:10:17 199 ug/dL F 250.0-425.0 Iron [Mass/volume] in Serum or Plasma 2024-06-02 07:10:23 47 ug/dL F 50.0-170.0 Iron binding capacity.unsaturated [Mass/volume] in Serum or Plasma 2024-06-02 07:10:23 152 ug/dL F 80.0-375.0 Ferritin [Mass/volume] in Serum or Plasma 2024-06-02 06:35:37 750 ng/mL F 10.0-291.0 HCT CALC HGBX3 2024-06-01 20:30:55 37.2 % F 37.0-47.0 Erythrocyte distribution width [Ratio] by Automated count 2024-06-01 20:30:09 17.2 % F 11.0-15.0 Hemoglobin [Mass/volume] in Blood 2024-06-01 20:30:09 12.4 g/dL F 12.0-16.0 Platelets [#/volume] in Blood by Automated count 2024-06-01 20:30:09 166 x 10^3 cells/uL F 140.0-450.0 MCH [Entitic mass] by Automated count 2024-06-01 20:30:09 28.1 pg F 25.9-34.2 MCHC [Mass/volume] by Automated count 2024-06-01 20:30:09 33.3 g/dL F 29.6-35.3 Hematocrit [Volume Fraction] of Blood by Automated count 2024-06-01 20:30:09 37.3 % F 37.0-47.0 Erythrocytes [#/volume] in Blood by Automated count 2024-06-01 20:30:09 4.42 x 10^6 cells/uL F 3.85-5.2 MCV [Entitic volume] by Automated count 2024-06-01 20:30:09 84.4 fL F 80.0-100.0 HCT CALC HGBX3 2024-05-18 17:23:49 33.3 % F 37.0-47.0 Hemoglobin [Mass/volume] in Blood 2024-05-18 17:18:32 11.1 g/dL F 12.0-16.0 HCT CALC HGBX3 2024-05-04 19:34:16 33.9 % F 37.0-47.0 Hemoglobin [Mass/volume] in Blood 2024-05-04 19:33:14 11.3 g/dL F 12.0-16.0 Erythrocyte distribution width [Ratio] by Automated count 2024-05-04 19:33:14 19.5 % F 11.0-15.0 Platelets [#/volume] in Blood by Automated count 2024-05-04 19:33:14 189 x 10^3 cells/uL F 140.0-450.0 MCH [Entitic mass] by Automated count 2024-05-04 19:33:14 28.2 pg F 25.9-34.2 MCHC [Mass/volume] by Automated count 2024-05-04 19:33:14 33.7 g/dL F 29.6-35.3 Hematocrit [Volume Fraction] of Blood by Automated count 2024-05-04 19:33:14 33.7 % F 37.0-47.0 Erythrocytes [#/volume] in Blood by Automated count 2024-05-04 19:33:14 4.02 x 10^6 cells/uL F 3.85-5.2 MCV [Entitic volume] by Automated count 2024-05-04 19:33:14 83.8 fL F 80.0-100.0 HCT CALC HGBX3 2024-03-30 17:03:22 30.3 % F 37.0-47.0 Platelets [#/volume] in Blood by Automated count 2024-03-30 17:02:16 192 x 10^3 cells/uL F 140.0-450.0 Hematocrit [Volume Fraction] of Blood by Automated count 2024-03-30 17:02:16 30.4 % F 37.0-47.0 Erythrocyte distribution width [Ratio] by Automated count 2024-03-30 17:02:14 18.7 % F 11.0-15.0 Hemoglobin [Mass/volume] in Blood 2024-03-30 17:02:14 10.1 g/dL F 12.0-16.0 MCH [Entitic mass] by Automated count 2024-03-30 17:02:14 28 pg F 25.9-34.2 MCHC [Mass/volume] by Automated count 2024-03-30 17:02:14 33.1 g/dL F 29.6-35.3 Erythrocytes [#/volume] in Blood by Automated count 2024-03-30 17:02:14 3.6 x 10'6 cells/uL F 3.85-5.2 MCV [Entitic volume] by Automated count 2024-03-30 17:02:14 84.6 fL F 80.0-100.0 Ferritin [Mass/volume] in Serum or Plasma 2024-03-03 08:21:53 688 ng/mL F 10.0-291.0 IRON SATURATION 2024-03-03 04:56:27 35 % F 16.0-46.0 TIBC 2024-03-03 04:56:27 189 ug/dL F 250.0-425.0 Iron [Mass/volume] in Serum or Plasma 2024-03-03 04:51:26 66 ug/dL F 50.0-170.0 Iron binding capacity.unsaturated [Mass/volume] in Serum or Plasma 2024-03-03 04:51:26 123 ug/dL F 80.0-375.0 HCT CALC HGBX3 2024-03-02 23:01:58 29.7 % F 37.0-47.0 Erythrocyte distribution width [Ratio] by Automated count 2024-03-02 23:01:16 17.8 % F 11.0-15.0 Hemoglobin [Mass/volume] in Blood 2024-03-02 23:01:14 9.9 g/dL F 12.0-16.0 Platelets [#/volume] in Blood by Automated count 2024-03-02 23:01:14 132 x 10^3 cells/uL F 140.0-450.0 MCH [Entitic mass] by Automated count 2024-03-02 23:01:14 27.1 pg F 25.9-34.2 MCHC [Mass/volume] by Automated count 2024-03-02 23:01:14 33.1 g/dL F 29.6-35.3 Erythrocytes [#/volume] in Blood by Automated count 2024-03-02 23:01:14 3.67 x 10'6 cells/uL F 3.85-5.2 Hematocrit [Volume Fraction] of Blood by Automated count 2024-03-02 23:01:14 30 % F 37.0-47.0 MCV [Entitic volume] by Automated count 2024-03-02 23:01:14 81.9 fL F 80.0-100.0 HCT CALC HGBX3 2024-02-03 23:54:14 30 % F 37.0-47.0 Erythrocyte distribution width [Ratio] by Automated count 2024-02-03 23:53:10 17.8 % F 11.0-15.0 Hemoglobin [Mass/volume] in Blood 2024-02-03 23:53:10 10 g/dL F 12.0-16.0 Platelets [#/volume] in Blood by Automated count 2024-02-03 23:53:10 139 x 10^3 cells/uL F 140.0-450.0 MCH [Entitic mass] by Automated count 2024-02-03 23:53:10 27.8 pg F 25.9-34.2 MCHC [Mass/volume] by Automated count 2024-02-03 23:53:10 32.8 g/dL F 29.6-35.3 Erythrocytes [#/volume] in Blood by Automated count 2024-02-03 23:53:10 3.59 x 10'6 cells/uL F 3.85-5.2 Hematocrit [Volume Fraction] of Blood by Automated count 2024-02-03 23:53:10 30.4 % F 37.0-47.0 MCV [Entitic volume] by Automated count 2024-02-03 23:53:10 84.6 fL F 80.0-100.0 HCT CALC HGBX3 2023-12-30 13:01:02 29.1 % F 37.0-47.0 Erythrocyte distribution width [Ratio] by Automated count 2023-12-30 13:00:23 18.4 % F 11.0-15.0 Platelets [#/volume] in Blood by Automated count 2023-12-30 13:00:23 116 x 10^3 cells/uL F 140.0-450.0 Hemoglobin [Mass/volume] in Blood 2023-12-30 13:00:22 9.7 g/dL F 12.0-16.0 MCH [Entitic mass] by Automated count 2023-12-30 13:00:22 27.7 pg F 25.9-34.2 MCHC [Mass/volume] by Automated count 2023-12-30 13:00:22 33.2 g/dL F 29.6-35.3 Erythrocytes [#/volume] in Blood by Automated count 2023-12-30 13:00:22 3.49 x 10'6 cells/uL F 3.85-5.2 Hematocrit [Volume Fraction] of Blood by Automated count 2023-12-30 13:00:22 29.1 % F 37.0-47.0 MCV [Entitic volume] by Automated count 2023-12-30 13:00:22 83.3 fL F 80.0-100.0 Ferritin [Mass/volume] in Serum or Plasma 2023-12-03 02:17:35 457 ng/mL F 10.0-291.0 IRON SATURATION 2023-12-02 18:23:06 22 % F 16.0-46.0 TIBC 2023-12-02 18:23:06 196 ug/dL F 250.0-425.0 Iron [Mass/volume] in Serum or Plasma 2023-12-02 18:22:53 44 ug/dL F 50.0-170.0 Iron binding capacity.unsaturated [Mass/volume] in Serum or Plasma 2023-12-02 18:22:53 152 ug/dL F 80.0-375.0 HCT CALC HGBX3 2023-12-02 14:12:56 33.3 % F 37.0-47.0 Erythrocyte distribution width [Ratio] by Automated count 2023-12-02 14:12:40 17.5 % F 11.0-15.0 Hemoglobin [Mass/volume] in Blood 2023-12-02 14:12:40 11.1 g/dL F 12.0-16.0 Platelets [#/volume] in Blood by Automated count 2023-12-02 14:12:40 115 x 10^3 cells/uL F 140.0-450.0 MCHC [Mass/volume] by Automated count 2023-12-02 14:12:40 33.5 g/dL F 29.6-35.3 Erythrocytes [#/volume] in Blood by Automated count 2023-12-02 14:12:40 3.88 x 10'6 cells/uL F 3.85-5.2 Hematocrit [Volume Fraction] of Blood by Automated count 2023-12-02 14:12:40 33.1 % F 37.0-47.0 MCV [Entitic volume] by Automated count 2023-12-02 14:12:40 85.4 fL F 80.0-100.0 MCH [Entitic mass] by Automated count 2023-12-02 14:12:39 28.6 pg F 25.9-34.2 HCT CALC HGBX3 2023-10-28 17:55:20 30.9 % F 37.0-47.0 Erythrocyte distribution width [Ratio] by Automated count 2023-10-28 17:55:03 17.6 % F 11.0-15.0 Hemoglobin [Mass/volume] in Blood 2023-10-28 17:55:03 10.3 g/dL F 12.0-16.0 Platelets [#/volume] in Blood by Automated count 2023-10-28 17:55:03 132 x 10^3 cells/uL F 140.0-450.0 MCH [Entitic mass] by Automated count 2023-10-28 17:55:03 29.8 pg F 25.9-34.2 MCHC [Mass/volume] by Automated count 2023-10-28 17:55:03 33.9 g/dL F 29.6-35.3 Erythrocytes [#/volume] in Blood by Automated count 2023-10-28 17:55:03 3.48 x 10'6 cells/uL F 3.85-5.2 Hematocrit [Volume Fraction] of Blood by Automated count 2023-10-28 17:55:03 30.5 % F 37.0-47.0 MCV [Entitic volume] by Automated count 2023-10-28 17:55:03 87.9 fL F 80.0-100.0 IRON SATURATION 2023-09-03 04:19:37 28 % F 16.0-46.0 TIBC 2023-09-03 04:19:37 173 ug/dL F 250.0-425.0 Iron [Mass/volume] in Serum or Plasma 2023-09-03 04:17:36 48 ug/dL F 50.0-170.0 Iron binding capacity.unsaturated [Mass/volume] in Serum or Plasma 2023-09-03 04:17:36 125 ug/dL F 80.0-375.0 HCT CALC HGBX3 2023-09-02 18:15:56 31.8 % F 37.0-47.0 MCV [Entitic volume] by Automated count 2023-09-02 18:15:45 86.7 fL F 80.0-100.0 Erythrocyte distribution width [Ratio] by Automated count 2023-09-02 18:15:43 18.5 % F 11.0-15.0 Hemoglobin [Mass/volume] in Blood 2023-09-02 18:15:43 10.6 g/dL F 12.0-16.0 Platelets [#/volume] in Blood by Automated count 2023-09-02 18:15:43 192 x 10^3 cells/uL F 140.0-450.0 MCH [Entitic mass] by Automated count 2023-09-02 18:15:43 29.5 pg F 25.9-34.2 Erythrocytes [#/volume] in Blood by Automated count 2023-09-02 18:15:43 3.59 x 10'6 cells/uL F 3.85-5.2 Hematocrit [Volume Fraction] of Blood by Automated count 2023-09-02 18:15:43 31.1 % F 37.0-47.0 MCHC [Mass/volume] by Automated count 2023-09-02 18:15:41 34 g/dL F 29.6-35.3 Ferritin [Mass/volume] in Serum or Plasma 2023-09-02 17:30:38 620 ng/mL F 10.0-291.0 HCT CALC HGBX3 2023-07-29 16:15:52 31.8 % F 37.0-47.0 Hemoglobin [Mass/volume] in Blood 2023-07-29 16:15:42 10.6 g/dL F 12.0-16.0 Platelets [#/volume] in Blood by Automated count 2023-07-29 16:15:42 152 x 10^3 cells/uL F 140.0-450.0 MCH [Entitic mass] by Automated count 2023-07-29 16:15:42 29.4 pg F 25.9-34.2 MCHC [Mass/volume] by Automated count 2023-07-29 16:15:42 35.2 g/dL F 29.6-35.3 Erythrocytes [#/volume] in Blood by Automated count 2023-07-29 16:15:42 3.6 x 10'6 cells/uL F 3.85-5.2 Hematocrit [Volume Fraction] of Blood by Automated count 2023-07-29 16:15:42 30.1 % F 37.0-47.0 MCV [Entitic volume] by Automated count 2023-07-29 16:15:42 83.7 fL F 80.0-100.0 Erythrocyte distribution width [Ratio] by Automated count 2023-07-29 16:15:39 16.4 % F 11.0-15.0 HCT CALC HGBX3 2023-07-01 21:26:34 32.1 % F 37.0-47.0 Erythrocyte distribution width [Ratio] by Automated count 2023-07-01 21:26:25 16.1 % F 11.0-15.0 Hemoglobin [Mass/volume] in Blood 2023-07-01 21:26:25 10.7 g/dL F 12.0-16.0 Platelets [#/volume] in Blood by Automated count 2023-07-01 21:26:25 134 x 10^3 cells/uL F 140.0-450.0 MCHC [Mass/volume] by Automated count 2023-07-01 21:26:25 34.7 g/dL F 29.6-35.3 MCH [Entitic mass] by Automated count 2023-07-01 21:26:25 29.6 pg F 25.9-34.2 Erythrocytes [#/volume] in Blood by Automated count 2023-07-01 21:26:25 3.61 x 10'6 cells/uL F 3.85-5.2 Hematocrit [Volume Fraction] of Blood by Automated count 2023-07-01 21:26:25 30.7 % F 37.0-47.0 MCV [Entitic volume] by Automated count 2023-07-01 21:26:25 85.2 fL F 80.0-100.0 IRON SATURATION 2023-06-03 23:39:03 19 % F 16.0-46.0 TIBC 2023-06-03 23:39:03 200 ug/dL F 250.0-425.0 Iron [Mass/volume] in Serum or Plasma 2023-06-03 23:38:56 38 ug/dL F 50.0-170.0 Iron binding capacity.unsaturated [Mass/volume] in Serum or Plasma 2023-06-03 23:38:56 162 ug/dL F 80.0-375.0 Ferritin [Mass/volume] in Serum or Plasma 2023-06-03 20:22:52 584 ng/mL F 10.0-291.0 HCT CALC HGBX3 2023-06-03 15:07:12 32.1 % F 37.0-47.0 Erythrocyte distribution width [Ratio] by Automated count 2023-06-03 15:06:59 17.5 % F 11.0-15.0 Hemoglobin [Mass/volume] in Blood 2023-06-03 15:06:59 10.7 g/dL F 12.0-16.0 Platelets [#/volume] in Blood by Automated count 2023-06-03 15:06:59 164 x 10^3 cells/uL F 140.0-450.0 MCH [Entitic mass] by Automated count 2023-06-03 15:06:59 31.2 pg F 25.9-34.2 MCHC [Mass/volume] by Automated count 2023-06-03 15:06:59 35.9 g/dL F 29.6-35.3 Erythrocytes [#/volume] in Blood by Automated count 2023-06-03 15:06:59 3.42 x 10'6 cells/uL F 3.85-5.2 Hematocrit [Volume Fraction] of Blood by Automated count 2023-06-03 15:06:59 29.8 % F 37.0-47.0 MCV [Entitic volume] by Automated count 2023-06-03 15:06:59 87 fL F 80.0-100.0 HCT CALC HGBX3 2023-04-30 05:58:46 29.7 % F 37.0-47.0 Erythrocyte distribution width [Ratio] by Automated count 2023-04-30 05:58:35 18.6 % F 11.0-15.0 Hemoglobin [Mass/volume] in Blood 2023-04-30 05:58:35 9.9 g/dL F 12.0-16.0 Platelets [#/volume] in Blood by Automated count 2023-04-30 05:58:35 154 x 10^3 cells/uL F 140.0-450.0 MCH [Entitic mass] by Automated count 2023-04-30 05:58:35 30.1 pg F 25.9-34.2 MCHC [Mass/volume] by Automated count 2023-04-30 05:58:35 35.4 g/dL F 29.6-35.3 Erythrocytes [#/volume] in Blood by Automated count 2023-04-30 05:58:35 3.29 x 10'6 cells/uL F 3.85-5.2 Hematocrit [Volume Fraction] of Blood by Automated count 2023-04-30 05:58:35 28 % F 37.0-47.0 MCV [Entitic volume] by Automated count 2023-04-30 05:58:35 85.2 fL F 80.0-100.0 IRON SATURATION 2023-04-29 21:09:48 37 % F 16.0-46.0 TIBC 2023-04-29 21:09:48 184 ug/dL F 250.0-425.0 Iron [Mass/volume] in Serum or Plasma 2023-04-29 21:09:04 68 ug/dL F 50.0-170.0 Iron binding capacity.unsaturated [Mass/volume] in Serum or Plasma 2023-04-29 21:09:04 116 ug/dL F 80.0-375.0 Ferritin [Mass/volume] in Serum or Plasma 2023-04-29 19:49:34 426 ng/mL F 10.0-291.0 IRON SATURATION 2023-04-02 05:42:59 51 % F 16.0-46.0 TIBC 2023-04-02 05:42:59 178 ug/dL F 250.0-425.0 Iron [Mass/volume] in Serum or Plasma 2023-04-02 05:41:25 90 ug/dL F 50.0-170.0 Iron binding capacity.unsaturated [Mass/volume] in Serum or Plasma 2023-04-02 05:41:25 88 ug/dL F 80.0-375.0 HCT CALC HGBX3 2023-04-01 22:01:56 30.6 % F 37.0-47.0 Erythrocyte distribution width [Ratio] by Automated count 2023-04-01 22:01:30 17.9 % F 11.0-15.0 Hemoglobin [Mass/volume] in Blood 2023-04-01 22:01:30 10.2 g/dL F 12.0-16.0 Platelets [#/volume] in Blood by Automated count 2023-04-01 22:01:30 136 x 10^3 cells/uL F 140.0-450.0 MCH [Entitic mass] by Automated count 2023-04-01 22:01:30 28.1 pg F 25.9-34.2 MCHC [Mass/volume] by Automated count 2023-04-01 22:01:30 34.5 g/dL F 29.6-35.3 Erythrocytes [#/volume] in Blood by Automated count 2023-04-01 22:01:30 3.62 x 10'6 cells/uL F 3.85-5.2 Hematocrit [Volume Fraction] of Blood by Automated count 2023-04-01 22:01:30 29.5 % F 37.0-47.0 MCV [Entitic volume] by Automated count 2023-04-01 22:01:30 81.5 fL F 80.0-100.0 Ferritin [Mass/volume] in Serum or Plasma 2023-04-01 15:33:29 518 ng/mL F 10.0-291.0 HCT CALC HGBX3 2023-03-10 16:26:31 31.2 % F 37.0-47.0 Hemoglobin [Mass/volume] in Blood 2023-03-10 16:25:26 10.4 g/dL F 12.0-16.0 Reticulocytes/100 erythrocytes in Blood by Automated count 2023-03-10 16:25:26 1.69 % F 0.7-2.5 IRON SATURATION 2023-02-26 05:19:08 52 % F 16.0-46.0 TIBC 2023-02-26 05:19:08 161 ug/dL F 250.0-425.0 Iron [Mass/volume] in Serum or Plasma 2023-02-26 05:15:04 84 ug/dL F 50.0-170.0 Iron binding capacity.unsaturated [Mass/volume] in Serum or Plasma 2023-02-26 05:15:04 77 ug/dL F 80.0-375.0 Ferritin [Mass/volume] in Serum or Plasma 2023-02-26 03:16:22 568 ng/mL F 10.0-291.0 HCT CALC HGBX3 2023-02-25 19:46:03 33.3 % F 37.0-47.0 Erythrocyte distribution width [Ratio] by Automated count 2023-02-25 19:45:27 17.4 % F 11.0-15.0 Hemoglobin [Mass/volume] in Blood 2023-02-25 19:45:27 11.1 g/dL F 12.0-16.0 Platelets [#/volume] in Blood by Automated count 2023-02-25 19:45:27 141 x 10^3 cells/uL F 140.0-450.0 MCH [Entitic mass] by Automated count 2023-02-25 19:45:27 28.2 pg F 25.9-34.2 MCHC [Mass/volume] by Automated count 2023-02-25 19:45:27 35 g/dL F 29.6-35.3 Erythrocytes [#/volume] in Blood by Automated count 2023-02-25 19:45:27 3.93 x 10'6 cells/uL F 3.85-5.2 Hematocrit [Volume Fraction] of Blood by Automated count 2023-02-25 19:45:27 31.7 % F 37.0-47.0 MCV [Entitic volume] by Automated count 2023-02-25 19:45:27 80.6 fL F 80.0-100.0 HCT CALC HGBX3 2023-01-28 14:06:33 33 % F 37.0-47.0 Hemoglobin [Mass/volume] in Blood 2023-01-28 14:06:31 11 g/dL F 12.0-16.0 Platelets [#/volume] in Blood by Automated count 2023-01-28 14:06:31 134 x 10^3 cells/uL F 140.0-450.0 MCH [Entitic mass] by Automated count 2023-01-28 14:06:31 29 pg F 25.9-34.2 MCHC [Mass/volume] by Automated count 2023-01-28 14:06:31 34.5 g/dL F 29.6-35.3 Erythrocytes [#/volume] in Blood by Automated count 2023-01-28 14:06:31 3.8 x 10'6 cells/uL F 3.85-5.2 Erythrocyte distribution width [Ratio] by Automated count 2023-01-28 14:06:30 16.7 % F 11.0-15.0 Hematocrit [Volume Fraction] of Blood by Automated count 2023-01-28 14:06:30 32 % F 37.0-47.0 MCV [Entitic volume] by Automated count 2023-01-28 14:06:30 84.1 fL F 80.0-100.0 HCT CALC HGBX3 2022 15:11:22 34.2 % F 37.0-47.0 Hemoglobin [Mass/volume] in Blood 2022 15:10:33 11.4 g/dL F 12.0-16.0 MCH [Entitic mass] by Automated count 2022 15:10:33 29.3 pg F 25.9-34.2 MCHC [Mass/volume] by Automated count 2022 15:10:33 34.3 g/dL F 29.6-35.3 Erythrocytes [#/volume] in Blood by Automated count 2022 15:10:33 3.89 x 10'6 cells/uL F 3.85-5.2 Hematocrit [Volume Fraction] of Blood by Automated count 2022 15:10:33 33.2 % F 37.0-47.0 MCV [Entitic volume] by Automated count 2022 15:10:33 85.4 fL F 80.0-100.0 Erythrocyte distribution width [Ratio] by Automated count 2022 15:10:32 18 % F 11.0-15.0 Platelets [#/volume] in Blood by Automated count 2022 15:10:32 159 x 10^3 cells/uL F 140.0-450.0 IRON SATURATION 2022-12-04 04:36:07 32 % F 16.0-46.0 TIBC 2022-12-04 04:36:07 179 ug/dL F 250.0-425.0 Iron [Mass/volume] in Serum or Plasma 2022-12-04 04:35:10 58 ug/dL F 50.0-170.0 Iron binding capacity.unsaturated [Mass/volume] in Serum or Plasma 2022-12-04 04:35:10 121 ug/dL F 80.0-375.0 Ferritin [Mass/volume] in Serum or Plasma 2022-12-03 15:03:08 416 ng/mL F 10.0-291.0 HCT CALC HGBX3 2022-12-03 14:50:57 27 % F 37.0-47.0 Hemoglobin [Mass/volume] in Blood 2022-12-03 14:50:37 9 g/dL F 12.0-16.0 Platelets [#/volume] in Blood by Automated count 2022-12-03 14:50:37 147 x 10^3 cells/uL F 140.0-450.0 Hematocrit [Volume Fraction] of Blood by Automated count 2022-12-03 14:50:37 25.7 % F 37.0-47.0 Erythrocytes [#/volume] in Blood by Automated count 2022-12-03 14:50:36 3.12 x 10'6 cells/uL F 3.85-5.2 MCV [Entitic volume] by Automated count 2022-12-03 14:50:36 82.3 fL F 80.0-100.0 Erythrocyte distribution width [Ratio] by Automated count 2022-12-03 14:50:36 18.6 % F 11.0-15.0 MCH [Entitic mass] by Automated count 2022-12-03 14:50:36 29 pg F 25.9-34.2 MCHC [Mass/volume] by Automated count 2022-12-03 14:50:36 35.2 g/dL F 29.6-35.3 HCT CALC HGBX3 2022-10-29 15:20:21 28.8 % F 37.0-47.0 Erythrocyte distribution width [Ratio] by Automated count 2022-10-29 15:19:18 17.2 % F 11.0-15.0 Hemoglobin [Mass/volume] in Blood 2022-10-29 15:19:18 9.6 g/dL F 12.0-16.0 Platelets [#/volume] in Blood by Automated count 2022-10-29 15:19:18 134 x 10^3 cells/uL F 140.0-450.0 MCHC [Mass/volume] by Automated count 2022-10-29 15:19:18 35 g/dL F 29.6-35.3 MCH [Entitic mass] by Automated count 2022-10-29 15:19:18 27.7 pg F 25.9-34.2 Erythrocytes [#/volume] in Blood by Automated count 2022-10-29 15:19:18 3.47 x 10'6 cells/uL F 3.85-5.2 Hematocrit [Volume Fraction] of Blood by Automated count 2022-10-29 15:19:18 27.5 % F 37.0-47.0 MCV [Entitic volume] by Automated count 2022-10-29 15:19:18 79.2 fL F 80.0-100.0 IRON SATURATION 2022-10-02 01:51:49 50 % F 16.0-46.0 TIBC 2022-10-02 01:51:49 205 ug/dL F 250.0-425.0 Iron [Mass/volume] in Serum or Plasma 2022-10-02 01:46:23 103 ug/dL F 50.0-170.0 Iron binding capacity.unsaturated [Mass/volume] in Serum or Plasma 2022-10-02 01:46:23 102 ug/dL F 80.0-375.0 Ferritin [Mass/volume] in Serum or Plasma 2022-10-01 17:04:20 403 ng/mL F 10.0-291.0 HCT CALC HGBX3 2022-10-01 15:37:09 36.9 % F 37.0-47.0 Erythrocyte distribution width [Ratio] by Automated count 2022-10-01 15:36:17 16.6 % F 11.0-15.0 Platelets [#/volume] in Blood by Automated count 2022-10-01 15:36:17 141 x 10^3 cells/uL F 140.0-450.0 MCH [Entitic mass] by Automated count 2022-10-01 15:36:17 28.7 pg F 25.9-34.2 MCHC [Mass/volume] by Automated count 2022-10-01 15:36:17 34.6 g/dL F 29.6-35.3 Erythrocytes [#/volume] in Blood by Automated count 2022-10-01 15:36:17 4.3 x 10'6 cells/uL F 3.85-5.2 Hematocrit [Volume Fraction] of Blood by Automated count 2022-10-01 15:36:17 35.7 % F 37.0-47.0 MCV [Entitic volume] by Automated count 2022-10-01 15:36:17 83 fL F 80.0-100.0 Hemoglobin [Mass/volume] in Blood 2022-10-01 15:36:15 12.3 g/dL F 12.0-16.0 IRON SATURATION 2022-09-02 03:59:32 52 % F 16.0-46.0 TIBC 2022-09-02 03:59:32 201 ug/dL F 250.0-425.0 Iron [Mass/volume] in Serum or Plasma 2022-09-02 03:57:30 105 ug/dL F 50.0-170.0 Iron binding capacity.unsaturated [Mass/volume] in Serum or Plasma 2022-09-02 03:57:30 96 ug/dL F 80.0-375.0 HCT CALC HGBX3 2022-09-01 17:30:58 35.7 % F 37.0-47.0 Erythrocyte distribution width [Ratio] by Automated count 2022-09-01 17:30:11 16.4 % F 11.0-15.0 Hemoglobin [Mass/volume] in Blood 2022-09-01 17:30:11 11.9 g/dL F 12.0-16.0 Platelets [#/volume] in Blood by Automated count 2022-09-01 17:30:11 163 x 10^3 cells/uL F 150.0-400.0 MCH [Entitic mass] by Automated count 2022-09-01 17:30:11 29 pg F 27.0-31.0 MCHC [Mass/volume] by Automated count 2022-09-01 17:30:11 34.9 g/dL F 32.0-36.0 Hematocrit [Volume Fraction] of Blood by Automated count 2022-09-01 17:30:11 34 % F 37.0-47.0 Erythrocytes [#/volume] in Blood by Automated count 2022-09-01 17:30:11 4.09 x 10'6 cells/uL F 4.2-5.4 MCV [Entitic volume] by Automated count 2022-09-01 17:30:11 83 fL F 80.0-100.0 Ferritin [Mass/volume] in Serum or Plasma 2022-09-01 17:26:12 387 ng/mL F 10.0-291.0 HCT CALC HGBX3 2022-07-30 16:43:35 33.6 % F 37.0-47.0 Erythrocyte distribution width [Ratio] by Automated count 2022-07-30 16:43:22 17.2 % F 11.0-15.0 Hemoglobin [Mass/volume] in Blood 2022-07-30 16:43:22 11.2 g/dL F 12.0-16.0 Platelets [#/volume] in Blood by Automated count 2022-07-30 16:43:22 130 x 10^3 cells/uL F 150.0-400.0 MCH [Entitic mass] by Automated count 2022-07-30 16:43:22 28.4 pg F 27.0-31.0 MCHC [Mass/volume] by Automated count 2022-07-30 16:43:22 34.2 g/dL F 32.0-36.0 Hematocrit [Volume Fraction] of Blood by Automated count 2022-07-30 16:43:22 32.8 % F 37.0-47.0 Erythrocytes [#/volume] in Blood by Automated count 2022-07-30 16:43:22 3.95 x 10'6 cells/uL F 4.2-5.4 MCV [Entitic volume] by Automated count 2022-07-30 16:43:22 83.1 fL F 80.0-100.0 HCT CALC HGBX3 2022-07-02 19:24:23 33 % F 37.0-47.0 Erythrocyte distribution width [Ratio] by Automated count 2022-07-02 19:23:18 16.9 % F 11.0-15.0 Hemoglobin [Mass/volume] in Blood 2022-07-02 19:23:18 11 g/dL F 12.0-16.0 Platelets [#/volume] in Blood by Automated count 2022-07-02 19:23:18 156 x 10^3 cells/uL F 150.0-400.0 MCH [Entitic mass] by Automated count 2022-07-02 19:23:18 29.1 pg F 27.0-31.0 MCHC [Mass/volume] by Automated count 2022-07-02 19:23:18 35.5 g/dL F 32.0-36.0 Hematocrit [Volume Fraction] of Blood by Automated count 2022-07-02 19:23:18 30.9 % F 37.0-47.0 Erythrocytes [#/volume] in Blood by Automated count 2022-07-02 19:23:18 3.77 x 10'6 cells/uL F 4.2-5.4 MCV [Entitic volume] by Automated count 2022-07-02 19:23:18 82 fL F 80.0-100.0 Iron [Mass/volume] in Serum or Plasma 2022-06-05 06:48:47 68 ug/dL F 50.0-170.0 IRON SATURATION 2022-06-05 06:48:36 34 % F 16.0-46.0 TIBC 2022-06-05 06:48:36 198 ug/dL F 250.0-425.0 Iron binding capacity.unsaturated [Mass/volume] in Serum or Plasma 2022-06-05 06:45:54 130 ug/dL F 80.0-375.0 Ferritin [Mass/volume] in Serum or Plasma 2022-06-04 16:16:51 407 ng/mL F 10.0-291.0 HCT CALC HGBX3 2022-06-04 15:55:03 32.7 % F 37.0-47.0 Erythrocyte distribution width [Ratio] by Automated count 2022-06-04 15:54:53 16.5 % F 11.0-15.0 Hemoglobin [Mass/volume] in Blood 2022-06-04 15:54:53 10.9 g/dL F 12.0-16.0 Platelets [#/volume] in Blood by Automated count 2022-06-04 15:54:53 159 x 10^3 cells/uL F 150.0-400.0 MCH [Entitic mass] by Automated count 2022-06-04 15:54:53 28.8 pg F 27.0-31.0 MCHC [Mass/volume] by Automated count 2022-06-04 15:54:53 34.4 g/dL F 32.0-36.0 Hematocrit [Volume Fraction] of Blood by Automated count 2022-06-04 15:54:53 31.7 % F 37.0-47.0 Erythrocytes [#/volume] in Blood by Automated count 2022-06-04 15:54:53 3.78 x 10'6 cells/uL F 4.2-5.4 MCV [Entitic volume] by Automated count 2022-06-04 15:54:53 83.8 fL F 80.0-100.0 HCT CALC HGBX3 2022-04-30 20:38:49 30.9 % F 37.0-47.0 Erythrocyte distribution width [Ratio] by Automated count 2022-04-30 20:38:10 16 % F 11.0-15.0 Hemoglobin [Mass/volume] in Blood 2022-04-30 20:38:10 10.3 g/dL F 12.0-16.0 Platelets [#/volume] in Blood by Automated count 2022-04-30 20:38:10 167 x 10^3 cells/uL F 150.0-400.0 MCH [Entitic mass] by Automated count 2022-04-30 20:38:10 29.8 pg F 27.0-31.0 MCHC [Mass/volume] by Automated count 2022-04-30 20:38:10 35.5 g/dL F 32.0-36.0 Hematocrit [Volume Fraction] of Blood by Automated count 2022-04-30 20:38:10 29.1 % F 37.0-47.0 Erythrocytes [#/volume] in Blood by Automated count 2022-04-30 20:38:10 3.47 x 10'6 cells/uL F 4.2-5.4 MCV [Entitic volume] by Automated count 2022-04-30 20:38:10 83.9 fL F 80.0-100.0 HCT CALC HGBX3 2022-04-06 08:33:47 F Canceled - Specimen not received 5 days past draw date Hemoglobin [Mass/volume] in Blood 2022-04-06 08:06:05 F Canceled - Specimen not received 5 days past draw date Hematocrit [Volume Fraction] of Blood by Automated count 2022-04-06 08:06:05 F Canceled - Specimen not received 5 days past draw date Erythrocyte distribution width [Ratio] by Automated count 2022-04-06 08:06:05 F Canceled - Specimen not received 5 days past draw date Platelets [#/volume] in Blood by Automated count 2022-04-06 08:06:05 F Canceled - Specimen not received 5 days past draw date MCH [Entitic mass] by Automated count 2022-04-06 08:06:05 F Canceled - Specimen not received 5 days past draw date Erythrocytes [#/volume] in Blood by Automated count 2022-04-06 08:06:05 F Canceled - Specimen not received 5 days past draw date MCHC [Mass/volume] by Automated count 2022-04-06 08:06:05 F Canceled - Specimen not received 5 days past draw date MCV [Entitic volume] by Automated count 2022-04-06 08:06:05 F Canceled - Specimen not received 5 days past draw date FluidBP Description Draw Date Result/Unit Status Ref Range Result Comments Sodium [Moles/volume] in Serum or Plasma 2024-06-30 00:03:24 140 mEq/L F 132.0-146.0 Sodium [Moles/volume] in Serum or Plasma 2024-06-02 07:10:07 138 mEq/L F 132.0-146.0 Sodium [Moles/volume] in Serum or Plasma 2024-05-05 06:09:40 138 mEq/L F 132.0-146.0 Sodium [Moles/volume] in Serum or Plasma 2024-03-31 05:32:56 137 mEq/L F 132.0-146.0 Sodium [Moles/volume] in Serum or Plasma 2024-03-03 04:51:24 138 mEq/L F 132.0-146.0 Sodium [Moles/volume] in Serum or Plasma 2024-02-03 20:20:53 137 mEq/L F 132.0-146.0 Sodium [Moles/volume] in Serum or Plasma 2023-12-30 17:48:06 141 mEq/L F 132.0-146.0 Sodium [Moles/volume] in Serum or Plasma 2023-12-02 18:22:53 140 mEq/L F 132.0-146.0 Sodium [Moles/volume] in Serum or Plasma 2023-10-29 05:27:13 139 mEq/L F 132.0-146.0 Sodium [Moles/volume] in Serum or Plasma 2023-09-03 04:17:34 138 mEq/L F 132.0-146.0 Sodium [Moles/volume] in Serum or Plasma 2023-07-30 02:38:28 140 mEq/L F 132.0-146.0 Sodium [Moles/volume] in Serum or Plasma 2023-07-02 02:00:35 138 mEq/L F 132.0-146.0 Sodium [Moles/volume] in Serum or Plasma 2023-06-03 23:38:56 141 mEq/L F 132.0-146.0 Sodium [Moles/volume] in Serum or Plasma 2023-04-29 21:09:04 140 mEq/L F 132.0-146.0 Sodium [Moles/volume] in Serum or Plasma 2023-04-02 05:41:25 136 mEq/L F 132.0-146.0 Sodium [Moles/volume] in Serum or Plasma 2023-02-25 15:29:30 134 mEq/L F 132.0-146.0 Sodium [Moles/volume] in Serum or Plasma 2023-01-28 14:15:31 136 mEq/L F 132.0-146.0 Sodium [Moles/volume] in Serum or Plasma 2022 17:26:37 136 mEq/L F 132.0-146.0 Sodium [Moles/volume] in Serum or Plasma 2022-12-03 13:29:33 136 mEq/L F 132.0-146.0 Sodium [Moles/volume] in Serum or Plasma 2022-10-29 15:38:20 138 mEq/L F 132.0-146.0 Sodium [Moles/volume] in Serum or Plasma 2022-10-01 17:23:13 137 mEq/L F 132.0-146.0 Sodium [Moles/volume] in Serum or Plasma 2022-09-01 17:28:11 137 mEq/L F 132.0-146.0 Sodium [Moles/volume] in Serum or Plasma 2022-07-30 15:10:15 137 mEq/L F 132.0-146.0 Sodium [Moles/volume] in Serum or Plasma 2022-07-02 18:33:16 139 mEq/L F 132.0-146.0 Sodium [Moles/volume] in Serum or Plasma 2022-06-04 15:10:00 137 mEq/L F 132.0-146.0 Sodium [Moles/volume] in Serum or Plasma 2022-04-30 18:55:46 140 mEq/L F 132.0-146.0 Sodium [Moles/volume] in Serum or Plasma 2022-04-06 08:06:05 F Canceled - Specimen not received 5 days past draw date General Description Draw Date Result/Unit Status Ref Range Result Comments Chloride [Moles/volume] in Serum or Plasma 2024-06-30 00:03:24 104 mEq/L F 99.0-109.0 Aspartate aminotransferase [Enzymatic activity/volume] in Serum or Plasma 2024-06-29 15:09:18 21 U/L F 0.0-33.0 Alanine aminotransferase [Enzymatic activity/volume] in Serum or Plasma 2024-06-29 15:09:18 11 U/L F 10.0-49.0 Chloride [Moles/volume] in Serum or Plasma 2024-06-02 07:10:07 101 mEq/L F 99.0-109.0 Aspartate aminotransferase [Enzymatic activity/volume] in Serum or Plasma 2024-06-01 18:20:15 26 U/L F 0.0-33.0 Alanine aminotransferase [Enzymatic activity/volume] in Serum or Plasma 2024-06-01 18:20:15 15 U/L F 10.0-49.0 Chloride [Moles/volume] in Serum or Plasma 2024-05-05 06:09:40 101 mEq/L F 99.0-109.0 Aspartate aminotransferase [Enzymatic activity/volume] in Serum or Plasma 2024-05-04 18:18:23 23 U/L F 0.0-33.0 Alanine aminotransferase [Enzymatic activity/volume] in Serum or Plasma 2024-05-04 18:18:23 11 U/L F 10.0-49.0 Chloride [Moles/volume] in Serum or Plasma 2024-03-31 05:32:56 101 mEq/L F 99.0-109.0 Aspartate aminotransferase [Enzymatic activity/volume] in Serum or Plasma 2024-03-31 00:17:17 24 U/L F 0.0-33.0 Alanine aminotransferase [Enzymatic activity/volume] in Serum or Plasma 2024-03-31 00:17:17 11 U/L F 10.0-49.0 Chloride [Moles/volume] in Serum or Plasma 2024-03-03 04:51:24 103 mEq/L F 99.0-109.0 Aluminum [Mass/volume] in Serum or Plasma 2024-03-02 19:11:06 10 ug/L F 0.0-9.0 Aspartate aminotransferase [Enzymatic activity/volume] in Serum or Plasma 2024-03-02 18:15:16 26 U/L F 0.0-33.0 Alanine aminotransferase [Enzymatic activity/volume] in Serum or Plasma 2024-03-02 18:15:16 10 U/L F 10.0-49.0 Chloride [Moles/volume] in Serum or Plasma 2024-02-03 20:20:53 100 mEq/L F 99.0-109.0 Aspartate aminotransferase [Enzymatic activity/volume] in Serum or Plasma 2024-02-03 15:18:15 17 U/L F 0.0-33.0 Alanine aminotransferase [Enzymatic activity/volume] in Serum or Plasma 2024-02-03 15:18:15 9 U/L F 10.0-49.0 Chloride [Moles/volume] in Serum or Plasma 2023-12-30 17:48:06 105 mEq/L F 99.0-109.0 Aspartate aminotransferase [Enzymatic activity/volume] in Serum or Plasma 2023-12-30 13:00:25 19 U/L F 0.0-33.0 Alanine aminotransferase [Enzymatic activity/volume] in Serum or Plasma 2023-12-30 13:00:25 9 U/L F 10.0-49.0 Chloride [Moles/volume] in Serum or Plasma 2023-12-02 18:22:53 106 mEq/L F 99.0-109.0 Aspartate aminotransferase [Enzymatic activity/volume] in Serum or Plasma 2023-12-02 14:08:14 20 U/L F 0.0-33.0 Alanine aminotransferase [Enzymatic activity/volume] in Serum or Plasma 2023-12-02 14:08:14 11 U/L F 10.0-49.0 Chloride [Moles/volume] in Serum or Plasma 2023-10-29 05:27:13 105 mEq/L F 99.0-109.0 Aspartate aminotransferase [Enzymatic activity/volume] in Serum or Plasma 2023-10-28 17:32:54 19 U/L F 0.0-33.0 Alanine aminotransferase [Enzymatic activity/volume] in Serum or Plasma 2023-10-28 17:32:54 10 U/L F 10.0-49.0 Chloride [Moles/volume] in Serum or Plasma 2023-09-03 04:17:34 105 mEq/L F 99.0-109.0 Aspartate aminotransferase [Enzymatic activity/volume] in Serum or Plasma 2023-09-02 14:38:30 22 U/L F 0.0-33.0 Alanine aminotransferase [Enzymatic activity/volume] in Serum or Plasma 2023-09-02 14:38:30 9 U/L F 10.0-49.0 Chloride [Moles/volume] in Serum or Plasma 2023-07-30 02:38:28 103 mEq/L F 99.0-109.0 Aspartate aminotransferase [Enzymatic activity/volume] in Serum or Plasma 2023-07-29 15:49:50 28 U/L F 0.0-33.0 Alanine aminotransferase [Enzymatic activity/volume] in Serum or Plasma 2023-07-29 15:49:50 15 U/L F 10.0-49.0 Chloride [Moles/volume] in Serum or Plasma 2023-07-02 02:00:35 104 mEq/L F 99.0-109.0 Aspartate aminotransferase [Enzymatic activity/volume] in Serum or Plasma 2023-07-01 15:29:29 22 U/L F 0.0-33.0 Alanine aminotransferase [Enzymatic activity/volume] in Serum or Plasma 2023-07-01 15:29:29 12 U/L F 10.0-49.0 Chloride [Moles/volume] in Serum or Plasma 2023-06-03 23:38:56 109 mEq/L F 99.0-109.0 Aspartate aminotransferase [Enzymatic activity/volume] in Serum or Plasma 2023-06-03 15:06:56 20 U/L F 0.0-33.0 Alanine aminotransferase [Enzymatic activity/volume] in Serum or Plasma 2023-06-03 15:06:56 13 U/L F 10.0-49.0 Chloride [Moles/volume] in Serum or Plasma 2023-04-29 21:09:04 107 mEq/L F 99.0-109.0 Aspartate aminotransferase [Enzymatic activity/volume] in Serum or Plasma 2023-04-29 16:36:15 19 U/L F 0.0-33.0 Alanine aminotransferase [Enzymatic activity/volume] in Serum or Plasma 2023-04-29 16:36:15 9 U/L F 10.0-49.0 Chloride [Moles/volume] in Serum or Plasma 2023-04-02 05:41:25 102 mEq/L F 99.0-109.0 Aspartate aminotransferase [Enzymatic activity/volume] in Serum or Plasma 2023-04-01 15:26:33 41 U/L F 0.0-33.0 Alanine aminotransferase [Enzymatic activity/volume] in Serum or Plasma 2023-04-01 15:26:33 41 U/L F 10.0-49.0 Aluminum [Mass/volume] in Serum or Plasma 2023-02-25 19:29:22 10 ug/L F 0.0-9.0 Aspartate aminotransferase [Enzymatic activity/volume] in Serum or Plasma 2023-02-25 15:29:30 256 U/L F 0.0-33.0 Alanine aminotransferase [Enzymatic activity/volume] in Serum or Plasma 2023-02-25 15:29:30 162 U/L F 10.0-49.0 Chloride [Moles/volume] in Serum or Plasma 2023-02-25 15:29:30 98 mEq/L F 99.0-109.0 Aspartate aminotransferase [Enzymatic activity/volume] in Serum or Plasma 2023-01-28 14:15:31 119 U/L F 0.0-33.0 Alanine aminotransferase [Enzymatic activity/volume] in Serum or Plasma 2023-01-28 14:15:31 83 U/L F 10.0-49.0 Chloride [Moles/volume] in Serum or Plasma 2023-01-28 14:15:31 104 mEq/L F 99.0-109.0 Aspartate aminotransferase [Enzymatic activity/volume] in Serum or Plasma 2022 17:26:37 42 U/L F 0.0-33.0 Alanine aminotransferase [Enzymatic activity/volume] in Serum or Plasma 2022 17:26:37 26 U/L F 10.0-49.0 Chloride [Moles/volume] in Serum or Plasma 2022 17:26:37 101 mEq/L F 99.0-109.0 Chloride [Moles/volume] in Serum or Plasma 2022-12-03 13:29:33 101 mEq/L F 99.0-109.0 Aspartate aminotransferase [Enzymatic activity/volume] in Serum or Plasma 2022-12-03 13:29:33 52 U/L F 0.0-33.0 Alanine aminotransferase [Enzymatic activity/volume] in Serum or Plasma 2022-12-03 13:29:33 25 U/L F 10.0-49.0 Aspartate aminotransferase [Enzymatic activity/volume] in Serum or Plasma 2022-10-29 15:38:20 20 U/L F 0.0-33.0 Alanine aminotransferase [Enzymatic activity/volume] in Serum or Plasma 2022-10-29 15:38:20 12 U/L F 10.0-49.0 Chloride [Moles/volume] in Serum or Plasma 2022-10-29 15:38:20 103 mEq/L F 99.0-109.0 Chloride [Moles/volume] in Serum or Plasma 2022-10-01 17:23:14 102 mEq/L F 99.0-109.0 Aspartate aminotransferase [Enzymatic activity/volume] in Serum or Plasma 2022-10-01 17:23:13 20 U/L F 0.0-33.0 Alanine aminotransferase [Enzymatic activity/volume] in Serum or Plasma 2022-10-01 17:23:13 12 U/L F 10.0-49.0 Aspartate aminotransferase [Enzymatic activity/volume] in Serum or Plasma 2022-09-01 17:28:11 25 U/L F 0.0-33.0 Alanine aminotransferase [Enzymatic activity/volume] in Serum or Plasma 2022-09-01 17:28:11 15 U/L F 10.0-49.0 Chloride [Moles/volume] in Serum or Plasma 2022-09-01 17:28:11 106 mEq/L F 99.0-109.0 Aspartate aminotransferase [Enzymatic activity/volume] in Serum or Plasma 2022-07-30 15:10:15 21 U/L F 0.0-33.0 Alanine aminotransferase [Enzymatic activity/volume] in Serum or Plasma 2022-07-30 15:10:15 10 U/L F 10.0-49.0 Chloride [Moles/volume] in Serum or Plasma 2022-07-30 15:10:15 104 mEq/L F 99.0-109.0 Aspartate aminotransferase [Enzymatic activity/volume] in Serum or Plasma 2022-07-02 18:33:16 23 U/L F 0.0-33.0 Alanine aminotransferase [Enzymatic activity/volume] in Serum or Plasma 2022-07-02 18:33:16 13 U/L F 10.0-49.0 Chloride [Moles/volume] in Serum or Plasma 2022-07-02 18:33:16 105 mEq/L F 99.0-109.0 Aspartate aminotransferase [Enzymatic activity/volume] in Serum or Plasma 2022-06-04 15:10:00 34 U/L F 0.0-33.0 Alanine aminotransferase [Enzymatic activity/volume] in Serum or Plasma 2022-06-04 15:10:00 18 U/L F 10.0-49.0 Chloride [Moles/volume] in Serum or Plasma 2022-06-04 15:10:00 104 mEq/L F 99.0-109.0 Aspartate aminotransferase [Enzymatic activity/volume] in Serum or Plasma 2022-04-30 18:55:46 22 U/L F 0.0-33.0 Alanine aminotransferase [Enzymatic activity/volume] in Serum or Plasma 2022-04-30 18:55:46 10 U/L F 10.0-49.0 Chloride [Moles/volume] in Serum or Plasma 2022-04-30 18:55:46 105 mEq/L F 99.0-109.0 Aspartate aminotransferase [Enzymatic activity/volume] in Serum or Plasma 2022-04-06 08:06:05 F Canceled - Specimen not received 5 days past draw date Alanine aminotransferase [Enzymatic activity/volume] in Serum or Plasma 2022-04-06 08:06:05 F Canceled - Specimen not received 5 days past draw date Chloride [Moles/volume] in Serum or Plasma 2022-04-06 08:06:05 F Canceled - Specimen not received 5 days past draw date InfectionVaccination Description Draw Date Result/Unit Status Ref Range Result Comments Basophils/100 leukocytes in Blood by Automated count 2024-06-29 17:17:18 2 % F Neutrophils/100 leukocytes in Blood by Automated count 2024-06-29 17:17:18 64.3 % F Eosinophils/100 leukocytes in Blood by Automated count 2024-06-29 17:17:18 7.8 % F Monocytes/100 leukocytes in Blood by Automated count 2024-06-29 17:17:18 9.4 % F Monocytes [#/volume] in Blood by Automated count 2024-06-29 17:17:18 448 Cells/uL F 0.0-1100.0 Lymphocytes/100 leukocytes in Blood by Automated count 2024-06-29 17:17:18 16.5 % F Basophils [#/volume] in Blood by Automated count 2024-06-29 17:17:18 95 Cells/uL F 0.0-400.0 Eosinophils [#/volume] in Blood by Automated count 2024-06-29 17:17:18 372 Cells/uL F 0.0-700.0 Neutrophils [#/volume] in Blood by Automated count 2024-06-29 17:17:18 3067 Cells/uL F 2000.0-8800.0 Leukocytes [#/volume] in Blood by Automated count 2024-06-29 17:17:18 4.8 x 10^3 cells/uL F 4.0-11.0 Lymphocytes [#/volume] in Blood by Automated count 2024-06-29 17:17:18 787 Cells/uL F 620.0-3660.0 Eosinophils/100 leukocytes in Blood by Automated count 2024-06-01 20:30:09 8.5 % F Basophils/100 leukocytes in Blood by Automated count 2024-06-01 20:30:09 1.2 % F Monocytes/100 leukocytes in Blood by Automated count 2024-06-01 20:30:09 8.6 % F Neutrophils/100 leukocytes in Blood by Automated count 2024-06-01 20:30:09 69.4 % F Lymphocytes/100 leukocytes in Blood by Automated count 2024-06-01 20:30:09 12.4 % F Monocytes [#/volume] in Blood by Automated count 2024-06-01 20:30:09 588 Cells/uL F 0.0-1100.0 Basophils [#/volume] in Blood by Automated count 2024-06-01 20:30:09 82 Cells/uL F 0.0-400.0 Eosinophils [#/volume] in Blood by Automated count 2024-06-01 20:30:09 581 Cells/uL F 0.0-700.0 Neutrophils [#/volume] in Blood by Automated count 2024-06-01 20:30:09 4747 Cells/uL F 2000.0-8800.0 Leukocytes [#/volume] in Blood by Automated count 2024-06-01 20:30:09 6.8 x 10^3 cells/uL F 4.0-11.0 Lymphocytes [#/volume] in Blood by Automated count 2024-06-01 20:30:09 848 Cells/uL F 620.0-3660.0 Lymphocytes/100 leukocytes in Blood by Automated count 2024-05-04 19:33:14 16 % F Basophils/100 leukocytes in Blood by Automated count 2024-05-04 19:33:14 2.5 % F Eosinophils/100 leukocytes in Blood by Automated count 2024-05-04 19:33:14 11.6 % F Monocytes/100 leukocytes in Blood by Automated count 2024-05-04 19:33:14 11.6 % F Neutrophils/100 leukocytes in Blood by Automated count 2024-05-04 19:33:14 58.4 % F Monocytes [#/volume] in Blood by Automated count 2024-05-04 19:33:14 476 Cells/uL F 0.0-1100.0 Eosinophils [#/volume] in Blood by Automated count 2024-05-04 19:33:14 476 Cells/uL F 0.0-700.0 Basophils [#/volume] in Blood by Automated count 2024-05-04 19:33:14 102 Cells/uL F 0.0-400.0 Neutrophils [#/volume] in Blood by Automated count 2024-05-04 19:33:14 2394 Cells/uL F 2000.0-8800.0 Leukocytes [#/volume] in Blood by Automated count 2024-05-04 19:33:14 4.1 x 10^3 cells/uL F 4.0-11.0 Lymphocytes [#/volume] in Blood by Automated count 2024-05-04 19:33:14 656 Cells/uL F 620.0-3660.0 Monocytes/100 leukocytes in Blood by Automated count 2024-03-30 17:02:16 7.6 % F Eosinophils/100 leukocytes in Blood by Automated count 2024-03-30 17:02:16 10.5 % F Basophils/100 leukocytes in Blood by Automated count 2024-03-30 17:02:16 1.4 % F Neutrophils/100 leukocytes in Blood by Automated count 2024-03-30 17:02:16 70.9 % F Lymphocytes/100 leukocytes in Blood by Automated count 2024-03-30 17:02:14 9.5 % F Monocytes [#/volume] in Blood by Automated count 2024-03-30 17:02:14 483 Cells/uL F 0.0-1100.0 Basophils [#/volume] in Blood by Automated count 2024-03-30 17:02:14 89 Cells/uL F 0.0-400.0 Eosinophils [#/volume] in Blood by Automated count 2024-03-30 17:02:14 667 Cells/uL F 0.0-700.0 Neutrophils [#/volume] in Blood by Automated count 2024-03-30 17:02:14 4502 Cells/uL F 2000.0-8800.0 Leukocytes [#/volume] in Blood by Automated count 2024-03-30 17:02:14 6.4 x 10^3 cells/uL F 4.0-11.0 Lymphocytes [#/volume] in Blood by Automated count 2024-03-30 17:02:14 603 Cells/uL F 620.0-3660.0 Neutrophils/100 leukocytes in Blood by Automated count 2024-03-02 23:01:14 67.6 % F Basophils/100 leukocytes in Blood by Automated count 2024-03-02 23:01:14 1.6 % F Monocytes/100 leukocytes in Blood by Automated count 2024-03-02 23:01:14 8.1 % F Lymphocytes/100 leukocytes in Blood by Automated count 2024-03-02 23:01:14 14.4 % F Eosinophils/100 leukocytes in Blood by Automated count 2024-03-02 23:01:14 8.3 % F Monocytes [#/volume] in Blood by Automated count 2024-03-02 23:01:14 349 Cells/uL F 0.0-1100.0 Basophils [#/volume] in Blood by Automated count 2024-03-02 23:01:14 69 Cells/uL F 0.0-400.0 Eosinophils [#/volume] in Blood by Automated count 2024-03-02 23:01:14 358 Cells/uL F 0.0-700.0 Neutrophils [#/volume] in Blood by Automated count 2024-03-02 23:01:14 2914 Cells/uL F 2000.0-8800.0 Leukocytes [#/volume] in Blood by Automated count 2024-03-02 23:01:14 4.3 x 10^3 cells/uL F 4.0-11.0 Lymphocytes [#/volume] in Blood by Automated count 2024-03-02 23:01:14 621 Cells/uL F 620.0-3660.0 Basophils/100 leukocytes in Blood by Automated count 2024-02-03 23:53:10 1.1 % F Monocytes/100 leukocytes in Blood by Automated count 2024-02-03 23:53:10 9.2 % F Neutrophils/100 leukocytes in Blood by Automated count 2024-02-03 23:53:10 71 % F Eosinophils/100 leukocytes in Blood by Automated count 2024-02-03 23:53:10 6 % F Monocytes [#/volume] in Blood by Automated count 2024-02-03 23:53:10 405 Cells/uL F 0.0-1100.0 Lymphocytes/100 leukocytes in Blood by Automated count 2024-02-03 23:53:10 12.6 % F Basophils [#/volume] in Blood by Automated count 2024-02-03 23:53:10 48 Cells/uL F 0.0-400.0 Eosinophils [#/volume] in Blood by Automated count 2024-02-03 23:53:10 264 Cells/uL F 0.0-700.0 Neutrophils [#/volume] in Blood by Automated count 2024-02-03 23:53:10 3124 Cells/uL F 2000.0-8800.0 Leukocytes [#/volume] in Blood by Automated count 2024-02-03 23:53:10 4.4 x 10^3 cells/uL F 4.0-11.0 Lymphocytes [#/volume] in Blood by Automated count 2024-02-03 23:53:10 554 Cells/uL F 620.0-3660.0 Neutrophils/100 leukocytes in Blood by Automated count 2023-12-30 13:00:23 77.6 % F Monocytes/100 leukocytes in Blood by Automated count 2023-12-30 13:00:23 6.4 % F Lymphocytes/100 leukocytes in Blood by Automated count 2023-12-30 13:00:23 11.3 % F Basophils [#/volume] in Blood by Automated count 2023-12-30 13:00:23 12 Cell/uL F 0.0-400.0 Lymphocytes [#/volume] in Blood by Automated count 2023-12-30 13:00:23 705 Cell/uL F 620.0-3660.0 Eosinophils/100 leukocytes in Blood by Automated count 2023-12-30 13:00:22 4.5 % F Basophils/100 leukocytes in Blood by Automated count 2023-12-30 13:00:22 0.2 % F Monocytes [#/volume] in Blood by Automated count 2023-12-30 13:00:22 399 Cell/uL F 0.0-1100.0 Eosinophils [#/volume] in Blood by Automated count 2023-12-30 13:00:22 281 Cell/uL F 0.0-700.0 Neutrophils [#/volume] in Blood by Automated count 2023-12-30 13:00:22 4842 Cell/uL F 2000.0-8800.0 Leukocytes [#/volume] in Blood by Automated count 2023-12-30 13:00:22 6.2 x 10^3 cells/uL F 4.0-11.0 Lymphocytes/100 leukocytes in Blood by Automated count 2023-12-02 14:12:40 11.7 % F Monocytes [#/volume] in Blood by Automated count 2023-12-02 14:12:40 411 Cell/uL F 0.0-1100.0 Eosinophils [#/volume] in Blood by Automated count 2023-12-02 14:12:40 417 Cell/uL F 0.0-700.0 Leukocytes [#/volume] in Blood by Automated count 2023-12-02 14:12:40 6 x 10^3 cells/uL F 4.0-11.0 Lymphocytes [#/volume] in Blood by Automated count 2023-12-02 14:12:40 708 Cell/uL F 620.0-3660.0 Monocytes/100 leukocytes in Blood by Automated count 2023-12-02 14:12:39 6.8 % F Basophils/100 leukocytes in Blood by Automated count 2023-12-02 14:12:39 0.3 % F Neutrophils/100 leukocytes in Blood by Automated count 2023-12-02 14:12:39 74.3 % F Eosinophils/100 leukocytes in Blood by Automated count 2023-12-02 14:12:39 6.9 % F Basophils [#/volume] in Blood by Automated count 2023-12-02 14:12:39 18 Cell/uL F 0.0-400.0 Neutrophils [#/volume] in Blood by Automated count 2023-12-02 14:12:39 4495 Cell/uL F 2000.0-8800.0 Basophils/100 leukocytes in Blood by Automated count 2023-10-28 17:55:05 0.3 % F Lymphocytes [#/volume] in Blood by Automated count 2023-10-28 17:55:05 736 Cell/uL F 620.0-3660.0 Monocytes/100 leukocytes in Blood by Automated count 2023-10-28 17:55:03 6.2 % F Neutrophils/100 leukocytes in Blood by Automated count 2023-10-28 17:55:03 79.3 % F Eosinophils/100 leukocytes in Blood by Automated count 2023-10-28 17:55:03 3.4 % F Monocytes [#/volume] in Blood by Automated count 2023-10-28 17:55:03 418 Cell/uL F 0.0-1100.0 Lymphocytes/100 leukocytes in Blood by Automated count 2023-10-28 17:55:03 10.9 % F Basophils [#/volume] in Blood by Automated count 2023-10-28 17:55:03 20 Cell/uL F 0.0-400.0 Eosinophils [#/volume] in Blood by Automated count 2023-10-28 17:55:03 230 Cell/uL F 0.0-700.0 Neutrophils [#/volume] in Blood by Automated count 2023-10-28 17:55:03 5353 Cell/uL F 2000.0-8800.0 Leukocytes [#/volume] in Blood by Automated count 2023-10-28 17:55:03 6.8 x 10^3 cells/uL F 4.0-11.0 Monocytes/100 leukocytes in Blood by Automated count 2023-09-02 18:15:43 6 % F Neutrophils/100 leukocytes in Blood by Automated count 2023-09-02 18:15:43 80.8 % F Lymphocytes/100 leukocytes in Blood by Automated count 2023-09-02 18:15:43 8.4 % F Eosinophils/100 leukocytes in Blood by Automated count 2023-09-02 18:15:43 4.2 % F Monocytes [#/volume] in Blood by Automated count 2023-09-02 18:15:43 500 Cell/uL F 0.0-1100.0 Eosinophils [#/volume] in Blood by Automated count 2023-09-02 18:15:43 350 Cell/uL F 0.0-700.0 Basophils [#/volume] in Blood by Automated count 2023-09-02 18:15:43 42 Cell/uL F 0.0-400.0 Neutrophils [#/volume] in Blood by Automated count 2023-09-02 18:15:43 6731 Cell/uL F 2000.0-8800.0 Leukocytes [#/volume] in Blood by Automated count 2023-09-02 18:15:43 8.3 x 10^3 cells/uL F 4.0-11.0 Lymphocytes [#/volume] in Blood by Automated count 2023-09-02 18:15:43 700 Cell/uL F 620.0-3660.0 Basophils/100 leukocytes in Blood by Automated count 2023-09-02 18:15:41 0.5 % F Lymphocytes/100 leukocytes in Blood by Automated count 2023-07-29 16:15:42 13 % F Basophils/100 leukocytes in Blood by Automated count 2023-07-29 16:15:42 0.4 % F Neutrophils/100 leukocytes in Blood by Automated count 2023-07-29 16:15:42 70.7 % F Eosinophils/100 leukocytes in Blood by Automated count 2023-07-29 16:15:42 7.7 % F Monocytes/100 leukocytes in Blood by Automated count 2023-07-29 16:15:42 8.2 % F Monocytes [#/volume] in Blood by Automated count 2023-07-29 16:15:42 519 Cell/uL F 0.0-1100.0 Eosinophils [#/volume] in Blood by Automated count 2023-07-29 16:15:42 487 Cell/uL F 0.0-700.0 Basophils [#/volume] in Blood by Automated count 2023-07-29 16:15:42 25 Cell/uL F 0.0-400.0 Neutrophils [#/volume] in Blood by Automated count 2023-07-29 16:15:42 4475 Cell/uL F 2000.0-8800.0 Leukocytes [#/volume] in Blood by Automated count 2023-07-29 16:15:39 6.3 x 10^3 cells/uL F 4.0-11.0 Lymphocytes [#/volume] in Blood by Automated count 2023-07-29 16:15:39 823 Cell/uL F 620.0-3660.0 Monocytes/100 leukocytes in Blood by Automated count 2023-07-01 21:26:25 5.7 % F Lymphocytes/100 leukocytes in Blood by Automated count 2023-07-01 21:26:25 13.1 % F Eosinophils/100 leukocytes in Blood by Automated count 2023-07-01 21:26:25 5.4 % F Basophils/100 leukocytes in Blood by Automated count 2023-07-01 21:26:25 0.9 % F Neutrophils/100 leukocytes in Blood by Automated count 2023-07-01 21:26:25 75 % F Monocytes [#/volume] in Blood by Automated count 2023-07-01 21:26:25 355 Cell/uL F 0.0-1100.0 Eosinophils [#/volume] in Blood by Automated count 2023-07-01 21:26:25 336 Cell/uL F 0.0-700.0 Basophils [#/volume] in Blood by Automated count 2023-07-01 21:26:25 56 Cell/uL F 0.0-400.0 Neutrophils [#/volume] in Blood by Automated count 2023-07-01 21:26:25 4672 Cell/uL F 2000.0-8800.0 Leukocytes [#/volume] in Blood by Automated count 2023-07-01 21:26:25 6.2 x 10^3 cells/uL F 4.0-11.0 Lymphocytes [#/volume] in Blood by Automated count 2023-07-01 21:26:25 816 Cell/uL F 620.0-3660.0 Eosinophils/100 leukocytes in Blood by Automated count 2023-06-03 15:07:01 5.6 % F Neutrophils/100 leukocytes in Blood by Automated count 2023-06-03 15:06:59 73.2 % F Monocytes/100 leukocytes in Blood by Automated count 2023-06-03 15:06:59 8.7 % F Leukocytes [#/volume] in Blood by Automated count 2023-06-03 15:06:59 5.9 x 10^3 cells/uL F 4.0-11.0 Lymphocytes [#/volume] in Blood by Automated count 2023-06-03 15:06:59 671 Cell/uL F 620.0-3660.0 Basophils/100 leukocytes in Blood by Automated count 2023-06-03 15:06:56 1.1 % F Lymphocytes/100 leukocytes in Blood by Automated count 2023-06-03 15:06:56 11.4 % F Monocytes [#/volume] in Blood by Automated count 2023-06-03 15:06:56 512 Cell/uL F 0.0-1100.0 Basophils [#/volume] in Blood by Automated count 2023-06-03 15:06:56 65 Cell/uL F 0.0-400.0 Eosinophils [#/volume] in Blood by Automated count 2023-06-03 15:06:56 330 Cell/uL F 0.0-700.0 Neutrophils [#/volume] in Blood by Automated count 2023-06-03 15:06:56 4311 Cell/uL F 2000.0-8800.0 Basophils/100 leukocytes in Blood by Automated count 2023-04-30 05:58:35 2.6 % F Monocytes/100 leukocytes in Blood by Automated count 2023-04-30 05:58:35 9.5 % F Eosinophils/100 leukocytes in Blood by Automated count 2023-04-30 05:58:35 10.2 % F Neutrophils/100 leukocytes in Blood by Automated count 2023-04-30 05:58:35 57.3 % F Lymphocytes/100 leukocytes in Blood by Automated count 2023-04-30 05:58:35 20.3 % F Monocytes [#/volume] in Blood by Automated count 2023-04-30 05:58:35 208 Cell/uL F 0.0-1100.0 Basophils [#/volume] in Blood by Automated count 2023-04-30 05:58:35 57 Cell/uL F 0.0-400.0 Eosinophils [#/volume] in Blood by Automated count 2023-04-30 05:58:35 223 Cell/uL F 0.0-700.0 Neutrophils [#/volume] in Blood by Automated count 2023-04-30 05:58:35 1255 Cell/uL F 2000.0-8800.0 Leukocytes [#/volume] in Blood by Automated count 2023-04-30 05:58:35 2.2 x 10^3 cells/uL F 4.0-11.0 Lymphocytes [#/volume] in Blood by Automated count 2023-04-30 05:58:35 445 Cell/uL F 620.0-3660.0 Eosinophils/100 leukocytes in Blood by Automated count 2023-04-01 22:01:30 4.5 % F Monocytes/100 leukocytes in Blood by Automated count 2023-04-01 22:01:30 5.5 % F Neutrophils/100 leukocytes in Blood by Automated count 2023-04-01 22:01:30 75.3 % F Basophils/100 leukocytes in Blood by Automated count 2023-04-01 22:01:30 0.4 % F Lymphocytes/100 leukocytes in Blood by Automated count 2023-04-01 22:01:30 14.3 % F Monocytes [#/volume] in Blood by Automated count 2023-04-01 22:01:30 339 Cell/uL F 0.0-1100.0 Basophils [#/volume] in Blood by Automated count 2023-04-01 22:01:30 25 Cell/uL F 0.0-400.0 Eosinophils [#/volume] in Blood by Automated count 2023-04-01 22:01:30 277 Cell/uL F 0.0-700.0 Neutrophils [#/volume] in Blood by Automated count 2023-04-01 22:01:30 4638 Cell/uL F 2000.0-8800.0 Leukocytes [#/volume] in Blood by Automated count 2023-04-01 22:01:30 6.2 x 10^3 cells/uL F 4.0-11.0 Lymphocytes [#/volume] in Blood by Automated count 2023-04-01 22:01:30 881 Cell/uL F 620.0-3660.0 Monocytes/100 leukocytes in Blood by Automated count 2023-02-25 19:45:27 7.7 % F Basophils/100 leukocytes in Blood by Automated count 2023-02-25 19:45:27 0.4 % F Eosinophils/100 leukocytes in Blood by Automated count 2023-02-25 19:45:27 7.9 % F Neutrophils/100 leukocytes in Blood by Automated count 2023-02-25 19:45:27 68.2 % F Lymphocytes/100 leukocytes in Blood by Automated count 2023-02-25 19:45:27 15.9 % F Monocytes [#/volume] in Blood by Automated count 2023-02-25 19:45:27 374 Cell/uL F 0.0-1100.0 Basophils [#/volume] in Blood by Automated count 2023-02-25 19:45:27 19 Cell/uL F 0.0-400.0 Eosinophils [#/volume] in Blood by Automated count 2023-02-25 19:45:27 384 Cell/uL F 0.0-700.0 Neutrophils [#/volume] in Blood by Automated count 2023-02-25 19:45:27 3315 Cell/uL F 2000.0-8800.0 Leukocytes [#/volume] in Blood by Automated count 2023-02-25 19:45:27 4.9 x 10^3 cells/uL F 4.0-11.0 Lymphocytes [#/volume] in Blood by Automated count 2023-02-25 19:45:27 773 Cell/uL F 620.0-3660.0 Lymphocytes/100 leukocytes in Blood by Automated count 2023-01-28 14:06:31 16.3 % F Eosinophils/100 leukocytes in Blood by Automated count 2023-01-28 14:06:31 9.1 % F Neutrophils/100 leukocytes in Blood by Automated count 2023-01-28 14:06:31 66.9 % F Monocytes/100 leukocytes in Blood by Automated count 2023-01-28 14:06:31 7.4 % F Monocytes [#/volume] in Blood by Automated count 2023-01-28 14:06:31 363 Cell/uL F 0.0-1100.0 Eosinophils [#/volume] in Blood by Automated count 2023-01-28 14:06:31 447 Cell/uL F 0.0-700.0 Basophils [#/volume] in Blood by Automated count 2023-01-28 14:06:31 15 Cell/uL F 0.0-400.0 Neutrophils [#/volume] in Blood by Automated count 2023-01-28 14:06:31 3285 Cell/uL F 2000.0-8800.0 Leukocytes [#/volume] in Blood by Automated count 2023-01-28 14:06:31 4.9 x 10^3 cells/uL F 4.0-11.0 Basophils/100 leukocytes in Blood by Automated count 2023-01-28 14:06:30 0.3 % F Lymphocytes [#/volume] in Blood by Automated count 2023-01-28 14:06:30 800 Cell/uL F 620.0-3660.0 Lymphocytes/100 leukocytes in Blood by Automated count 2022 15:10:33 11.5 % F Basophils/100 leukocytes in Blood by Automated count 2022 15:10:33 0.2 % F Eosinophils/100 leukocytes in Blood by Automated count 2022 15:10:33 6.4 % F Monocytes [#/volume] in Blood by Automated count 2022 15:10:33 407 Cell/uL F 0.0-1100.0 Basophils [#/volume] in Blood by Automated count 2022 15:10:33 12 Cell/uL F 0.0-400.0 Eosinophils [#/volume] in Blood by Automated count 2022 15:10:33 383 Cell/uL F 0.0-700.0 Neutrophils [#/volume] in Blood by Automated count 2022 15:10:33 4504 Cell/uL F 2000.0-8800.0 Lymphocytes [#/volume] in Blood by Automated count 2022 15:10:33 689 Cell/uL F 620.0-3660.0 Neutrophils/100 leukocytes in Blood by Automated count 2022 15:10:32 75.2 % F Monocytes/100 leukocytes in Blood by Automated count 2022 15:10:32 6.8 % F Leukocytes [#/volume] in Blood by Automated count 2022 15:10:32 6 x 10^3 cells/uL F 4.0-11.0 Lymphocytes [#/volume] in Blood by Automated count 2022-12-03 14:50:37 725 Cell/uL F 620.0-3660.0 Eosinophils/100 leukocytes in Blood by Automated count 2022-12-03 14:50:37 6.9 % F Neutrophils/100 leukocytes in Blood by Automated count 2022-12-03 14:50:37 69.8 % F Monocytes/100 leukocytes in Blood by Automated count 2022-12-03 14:50:37 8.8 % F Lymphocytes/100 leukocytes in Blood by Automated count 2022-12-03 14:50:37 14.1 % F Leukocytes [#/volume] in Blood by Automated count 2022-12-03 14:50:36 5.1 x 10^3 cells/uL F 4.0-11.0 Basophils/100 leukocytes in Blood by Automated count 2022-12-03 14:50:36 0.5 % F Monocytes [#/volume] in Blood by Automated count 2022-12-03 14:50:36 452 Cell/uL F 0.0-1100.0 Basophils [#/volume] in Blood by Automated count 2022-12-03 14:50:36 26 Cell/uL F 0.0-400.0 Eosinophils [#/volume] in Blood by Automated count 2022-12-03 14:50:36 355 Cell/uL F 0.0-700.0 Neutrophils [#/volume] in Blood by Automated count 2022-12-03 14:50:36 3588 Cell/uL F 2000.0-8800.0 Neutrophils/100 leukocytes in Blood by Automated count 2022-10-29 15:19:18 69.8 % F Eosinophils/100 leukocytes in Blood by Automated count 2022-10-29 15:19:18 8.1 % F Lymphocytes/100 leukocytes in Blood by Automated count 2022-10-29 15:19:18 12.3 % F Monocytes/100 leukocytes in Blood by Automated count 2022-10-29 15:19:18 8.7 % F Basophils/100 leukocytes in Blood by Automated count 2022-10-29 15:19:18 1.1 % F Monocytes [#/volume] in Blood by Automated count 2022-10-29 15:19:18 499 Cell/uL F 0.0-1100.0 Basophils [#/volume] in Blood by Automated count 2022-10-29 15:19:18 63 Cell/uL F 0.0-400.0 Eosinophils [#/volume] in Blood by Automated count 2022-10-29 15:19:18 464 Cell/uL F 0.0-700.0 Neutrophils [#/volume] in Blood by Automated count 2022-10-29 15:19:18 4000 Cell/uL F 2000.0-8800.0 Leukocytes [#/volume] in Blood by Automated count 2022-10-29 15:19:18 5.7 x 10^3 cells/uL F 4.0-11.0 Lymphocytes [#/volume] in Blood by Automated count 2022-10-29 15:19:18 705 Cell/uL F 620.0-3660.0 Lymphocytes/100 leukocytes in Blood by Automated count 2022-10-01 15:36:17 15.6 % F Leukocytes [#/volume] in Blood by Automated count 2022-10-01 15:36:17 5.5 x 10^3 cells/uL F 4.0-11.0 Lymphocytes [#/volume] in Blood by Automated count 2022-10-01 15:36:17 864 Cell/uL F 620.0-3660.0 Monocytes/100 leukocytes in Blood by Automated count 2022-10-01 15:36:15 8.5 % F Basophils/100 leukocytes in Blood by Automated count 2022-10-01 15:36:15 0.4 % F Neutrophils/100 leukocytes in Blood by Automated count 2022-10-01 15:36:15 67.5 % F Eosinophils/100 leukocytes in Blood by Automated count 2022-10-01 15:36:15 8 % F Monocytes [#/volume] in Blood by Automated count 2022-10-01 15:36:15 471 Cell/uL F 0.0-1100.0 Basophils [#/volume] in Blood by Automated count 2022-10-01 15:36:15 22 Cell/uL F 0.0-400.0 Eosinophils [#/volume] in Blood by Automated count 2022-10-01 15:36:15 443 Cell/uL F 0.0-700.0 Neutrophils [#/volume] in Blood by Automated count 2022-10-01 15:36:15 3740 Cell/uL F 2000.0-8800.0 Monocytes/100 leukocytes in Blood by Automated count 2022-09-01 17:30:11 7.4 % F Basophils/100 leukocytes in Blood by Automated count 2022-09-01 17:30:11 0.8 % F Neutrophils/100 leukocytes in Blood by Automated count 2022-09-01 17:30:11 69.8 % F Eosinophils/100 leukocytes in Blood by Automated count 2022-09-01 17:30:11 7.8 % F Lymphocytes/100 leukocytes in Blood by Automated count 2022-09-01 17:30:11 14.2 % F Monocytes [#/volume] in Blood by Automated count 2022-09-01 17:30:11 485.44 Cell/uL F 0.0-1100.0 Basophils [#/volume] in Blood by Automated count 2022-09-01 17:30:11 52.48 Cell/uL F 0.0-400.0 Eosinophils [#/volume] in Blood by Automated count 2022-09-01 17:30:11 511.68 Cell/uL F 0.0-700.0 Lymphocytes [#/volume] in Blood by Automated count 2022-09-01 17:30:11 931.52 Cell/uL F 1100.0-4800.0 Neutrophils [#/volume] in Blood by Automated count 2022-09-01 17:30:11 4578.88 Cell/uL F 2000.0-8800.0 Leukocytes [#/volume] in Blood by Automated count 2022-09-01 17:30:11 6.6 x 10^3 cells/uL F 4.5-11.0 Monocytes/100 leukocytes in Blood by Automated count 2022-07-30 16:43:22 9.4 % F Eosinophils/100 leukocytes in Blood by Automated count 2022-07-30 16:43:22 8.9 % F Lymphocytes/100 leukocytes in Blood by Automated count 2022-07-30 16:43:22 18.2 % F Basophils/100 leukocytes in Blood by Automated count 2022-07-30 16:43:22 1 % F Neutrophils/100 leukocytes in Blood by Automated count 2022-07-30 16:43:22 62.5 % F Basophils [#/volume] in Blood by Automated count 2022-07-30 16:43:22 52 Cell/uL F 0.0-400.0 Monocytes [#/volume] in Blood by Automated count 2022-07-30 16:43:22 488.8 Cell/uL F 0.0-1100.0 Eosinophils [#/volume] in Blood by Automated count 2022-07-30 16:43:22 462.8 Cell/uL F 0.0-700.0 Lymphocytes [#/volume] in Blood by Automated count 2022-07-30 16:43:22 946.4 Cell/uL F 1100.0-4800.0 Neutrophils [#/volume] in Blood by Automated count 2022-07-30 16:43:22 3250 Cell/uL F 2000.0-8800.0 Leukocytes [#/volume] in Blood by Automated count 2022-07-30 16:43:22 5.2 x 10^3 cells/uL F 4.5-11.0 Neutrophils/100 leukocytes in Blood by Automated count 2022-07-02 19:23:18 67.9 % F Eosinophils/100 leukocytes in Blood by Automated count 2022-07-02 19:23:18 7.2 % F Monocytes/100 leukocytes in Blood by Automated count 2022-07-02 19:23:18 9.4 % F Lymphocytes/100 leukocytes in Blood by Automated count 2022-07-02 19:23:18 15.3 % F Basophils/100 leukocytes in Blood by Automated count 2022-07-02 19:23:18 0.2 % F Monocytes [#/volume] in Blood by Automated count 2022-07-02 19:23:18 494.44 Cell/uL F 0.0-1100.0 Eosinophils [#/volume] in Blood by Automated count 2022-07-02 19:23:18 378.72 Cell/uL F 0.0-700.0 Basophils [#/volume] in Blood by Automated count 2022-07-02 19:23:18 10.52 Cell/uL F 0.0-400.0 Lymphocytes [#/volume] in Blood by Automated count 2022-07-02 19:23:18 804.78 Cell/uL F 1100.0-4800.0 Neutrophils [#/volume] in Blood by Automated count 2022-07-02 19:23:18 3571.54 Cell/uL F 2000.0-8800.0 Leukocytes [#/volume] in Blood by Automated count 2022-07-02 19:23:18 5.3 x 10^3 cells/uL F 4.5-11.0 Neutrophils/100 leukocytes in Blood by Automated count 2022-06-04 15:54:53 75.1 % F Lymphocytes/100 leukocytes in Blood by Automated count 2022-06-04 15:54:53 9.9 % F Basophils/100 leukocytes in Blood by Automated count 2022-06-04 15:54:53 1 % F Eosinophils/100 leukocytes in Blood by Automated count 2022-06-04 15:54:53 6.8 % F Monocytes [#/volume] in Blood by Automated count 2022-06-04 15:54:53 486.18 Cell/uL F 0.0-1100.0 Monocytes/100 leukocytes in Blood by Automated count 2022-06-04 15:54:53 7.3 % F Basophils [#/volume] in Blood by Automated count 2022-06-04 15:54:53 66.6 Cell/uL F 0.0-400.0 Eosinophils [#/volume] in Blood by Automated count 2022-06-04 15:54:53 452.88 Cell/uL F 0.0-700.0 Lymphocytes [#/volume] in Blood by Automated count 2022-06-04 15:54:53 659.34 Cell/uL F 1100.0-4800.0 Neutrophils [#/volume] in Blood by Automated count 2022-06-04 15:54:53 5001.66 Cell/uL F 2000.0-8800.0 Leukocytes [#/volume] in Blood by Automated count 2022-06-04 15:54:53 6.7 x 10^3 cells/uL F 4.5-11.0 Lymphocytes/100 leukocytes in Blood by Automated count 2022-04-30 20:38:10 20 % F Eosinophils/100 leukocytes in Blood by Automated count 2022-04-30 20:38:10 9.2 % F Neutrophils/100 leukocytes in Blood by Automated count 2022-04-30 20:38:10 56 % F Basophils/100 leukocytes in Blood by Automated count 2022-04-30 20:38:10 2.1 % F Monocytes/100 leukocytes in Blood by Automated count 2022-04-30 20:38:10 12.7 % F Basophils [#/volume] in Blood by Automated count 2022-04-30 20:38:10 77.07 Cell/uL F 0.0-400.0 Eosinophils [#/volume] in Blood by Automated count 2022-04-30 20:38:10 337.64 Cell/uL F 0.0-700.0 Monocytes [#/volume] in Blood by Automated count 2022-04-30 20:38:10 466.09 Cell/uL F 0.0-1100.0 Lymphocytes [#/volume] in Blood by Automated count 2022-04-30 20:38:10 734 Cell/uL F 1100.0-4800.0 Neutrophils [#/volume] in Blood by Automated count 2022-04-30 20:38:10 2055.2 Cell/uL F 2000.0-8800.0 Leukocytes [#/volume] in Blood by Automated count 2022-04-30 20:38:10 3.7 x 10^3 cells/uL F 4.5-11.0 Eosinophils/100 leukocytes in Blood by Automated count 2022-04-06 08:06:05 F Canceled - Specimen not received 5 days past draw date Monocytes/100 leukocytes in Blood by Automated count 2022-04-06 08:06:05 F Canceled - Specimen not received 5 days past draw date Neutrophils/100 leukocytes in Blood by Automated count 2022-04-06 08:06:05 F Canceled - Specimen not received 5 days past draw date Monocytes [#/volume] in Blood by Automated count 2022-04-06 08:06:05 F Canceled - Specimen not received 5 days past draw date Basophils/100 leukocytes in Blood by Automated count 2022-04-06 08:06:05 F Canceled - Specimen not received 5 days past draw date Eosinophils [#/volume] in Blood by Automated count 2022-04-06 08:06:05 F Canceled - Specimen not received 5 days past draw date Basophils [#/volume] in Blood by Automated count 2022-04-06 08:06:05 F Canceled - Specimen not received 5 days past draw date Neutrophils [#/volume] in Blood by Automated count 2022-04-06 08:06:05 F Canceled - Specimen not received 5 days past draw date Lymphocytes [#/volume] in Blood by Automated count 2022-04-06 08:06:05 F Canceled - Specimen not received 5 days past draw date Leukocytes [#/volume] in Blood by Automated count 2022-04-06 08:06:05 F Canceled - Specimen not received 5 days past draw date Lymphocytes/100 leukocytes in Blood by Automated count 2022-04-06 08:06:05 F Canceled - Specimen not received 5 days past draw date MineralBone Disorder Description Draw Date Result/Unit Status Ref Range Result Comments Parathyrin.intact [Mass/volume] in Serum or Plasma 2024-08-08 15:59:17 F This test utiliz es Biotin (Vitamin B7) as one of it's reagents. Testing may be interfered with in patients consuming Biotin supplements. Please factor this when reviewing results. METHODOLOGY: SIEMENSReference range changed as of April. CA CORRECTED 2024-07-21 07:11:51 8.3 mg/dL F CA*PO4 CORRCTD 2024-07-21 07:10:16 36.7 Calc F 21.0-53.0 CA/PHOS PRODUCT 2024-07-21 07:10:16 35.6 Calc F 21.0-53.0 Phosphate [Mass/volume] in Serum or Plasma 2024-07-21 06:48:39 4.4 mg/dL F 2.4-5.1 Calcium [Mass/volume] in Serum or Plasma 2024-07-21 06:48:02 8.1 mg/dL F 8.7-10.4 Alkaline phosphatase [Enzymatic activity/volume] in Serum or Plasma 2024-06-29 15:09:18 100 U/L F 46.0-116.0 CA CORRECTED 2024-06-15 20:59:04 8.2 mg/dL F CA/PHOS PRODUCT 2024-06-15 20:57:38 43.2 Calc F 21.0-53.0 CA*PO4 CORRCTD 2024-06-15 20:57:38 44.5 Calc F 21.0-53.0 Phosphate [Mass/volume] in Serum or Plasma 2024-06-15 19:41:50 5.4 mg/dL F 2.4-5.1 Calcium [Mass/volume] in Serum or Plasma 2024-06-15 19:41:50 8 mg/dL F 8.7-10.4 Parathyrin.intact [Mass/volume] in Serum or Plasma 2024-06-15 17:20:26 304 pg/mL F 18.0-80.0 Alkaline phosphatase [Enzymatic activity/volume] in Serum or Plasma 2024-06-01 18:20:15 112 U/L F 46.0-116.0 CA CORRECTED 2024-05-18 23:17:24 8.4 mg/dL F CA*PO4 CORRCTD 2024-05-18 23:15:16 43.6 Calc F 21.0-53.0 CA/PHOS PRODUCT 2024-05-18 23:15:16 41.1 Calc F 21.0-53.0 Phosphate [Mass/volume] in Serum or Plasma 2024-05-18 21:15:47 5.2 mg/dL F 2.4-5.1 Calcium [Mass/volume] in Serum or Plasma 2024-05-18 21:15:47 7.9 mg/dL F 8.7-10.4 Parathyrin.intact [Mass/volume] in Serum or Plasma 2024-05-18 18:01:22 332 pg/mL F 18.0-80.0 Alkaline phosphatase [Enzymatic activity/volume] in Serum or Plasma 2024-05-04 18:18:23 115 U/L F 46.0-116.0 Alkaline phosphatase [Enzymatic activity/volume] in Serum or Plasma 2024-03-31 00:17:17 98 U/L F 46.0-116.0 Alkaline phosphatase [Enzymatic activity/volume] in Serum or Plasma 2024-03-02 18:15:16 91 U/L F 46.0-116.0 Alkaline phosphatase [Enzymatic activity/volume] in Serum or Plasma 2024-02-03 15:18:15 95 U/L F 46.0-116.0 CA CORRECTED 2023-12-30 17:52:40 8.3 mg/dL F Calcium [Mass/volume] in Serum or Plasma 2023-12-30 17:48:06 7.7 mg/dL F 8.7-10.4 Alkaline phosphatase [Enzymatic activity/volume] in Serum or Plasma 2023-12-30 13:00:25 93 U/L F 46.0-116.0 Alkaline phosphatase [Enzymatic activity/volume] in Serum or Plasma 2023-12-02 14:08:14 90 U/L F 46.0-116.0 Alkaline phosphatase [Enzymatic activity/volume] in Serum or Plasma 2023-10-28 17:32:54 100 U/L F 46.0-116.0 Alkaline phosphatase [Enzymatic activity/volume] in Serum or Plasma 2023-09-02 14:38:30 96 U/L F 46.0-116.0 Alkaline phosphatase [Enzymatic activity/volume] in Serum or Plasma 2023-07-29 15:49:50 102 U/L F 46.0-116.0 Alkaline phosphatase [Enzymatic activity/volume] in Serum or Plasma 2023-07-01 15:29:29 112 U/L F 46.0-116.0 Alkaline phosphatase [Enzymatic activity/volume] in Serum or Plasma 2023-06-03 15:06:59 116 U/L F 46.0-116.0 Alkaline phosphatase [Enzymatic activity/volume] in Serum or Plasma 2023-04-29 16:36:15 92 U/L F 46.0-116.0 Alkaline phosphatase [Enzymatic activity/volume] in Serum or Plasma 2023-04-01 15:26:33 74 U/L F 46.0-116.0 CA CORRECTED 2023-03-10 04:59:52 8.5 mg/dL F Calcium [Mass/volume] in Serum or Plasma 2023-03-10 04:55:01 7.5 mg/dL F 8.7-10.4 Parathyrin.intact [Mass/volume] in Serum or Plasma 2023-02-26 03:16:22 260 pg/mL F 18.0-80.0 Alkaline phosphatase [Enzymatic activity/volume] in Serum or Plasma 2023-02-25 15:29:30 99 U/L F 46.0-116.0 Alkaline phosphatase [Enzymatic activity/volume] in Serum or Plasma 2023-01-28 14:15:31 127 U/L F 46.0-116.0 Alkaline phosphatase [Enzymatic activity/volume] in Serum or Plasma 2022 17:26:37 97 U/L F 46.0-116.0 Alkaline phosphatase [Enzymatic activity/volume] in Serum or Plasma 2022-12-03 13:29:33 101 U/L F 46.0-116.0 Alkaline phosphatase [Enzymatic activity/volume] in Serum or Plasma 2022-10-29 15:38:20 115 U/L F 46.0-116.0 Alkaline phosphatase [Enzymatic activity/volume] in Serum or Plasma 2022-10-01 17:23:13 129 U/L F 46.0-116.0 Alkaline phosphatase [Enzymatic activity/volume] in Serum or Plasma 2022-09-01 17:28:11 143 U/L F 46.0-116.0 Alkaline phosphatase [Enzymatic activity/volume] in Serum or Plasma 2022-07-30 15:10:15 124 U/L F 46.0-116.0 Alkaline phosphatase [Enzymatic activity/volume] in Serum or Plasma 2022-07-02 18:33:16 120 U/L F 46.0-116.0 Alkaline phosphatase [Enzymatic activity/volume] in Serum or Plasma 2022-06-04 15:10:00 120 U/L F 46.0-116.0 Alkaline phosphatase [Enzymatic activity/volume] in Serum or Plasma 2022-04-30 18:55:46 113 U/L F 46.0-116.0 Alkaline phosphatase [Enzymatic activity/volume] in Serum or Plasma 2022-04-06 08:06:05 F Canceled - Speci men not received 5 days past draw date Nutrition Description Draw Date Result/Unit Status Ref Range Result Comments Potassium [Moles/volume] in Serum or Plasma 2024-06-30 00:03:24 4.3 mEq/L F 3.5-5.5 A/G RATIO 2024-06-29 15:10:19 1.5 Calc F 1.0-2.5 GLOBULIN 2024-06-29 15:10:19 2.5 g/dL F 0.9-5.0 Lactate dehydrogenase [Enzymatic activity/volume] in Serum or Plasma 2024-06-29 15:09:18 235 U/L F 120.0-246.0 Bicarbonate [Moles/volume] in Serum or Plasma 2024-06-29 15:09:18 26 mEq/L F 20.0-31.0 Albumin [Mass/volume] in Serum or Plasma by Bromocresol green (BCG) dye binding method 2024-06-29 15:09:18 3.7 g/dL F 3.4-4.8 Protein [Mass/volume] in Serum or Plasma 2024-06-29 15:09:18 6.2 g/dL F 5.7-8.2 Glucose [Mass/volume] in Serum or Plasma 2024-06-29 15:09:18 79 mg/dL F 70.0-99.0 Potassium [Moles/volume] in Serum or Plasma 2024-06-02 07:10:07 4.3 mEq/L F 3.5-5.5 GLOBULIN 2024-06-01 18:21:15 2.8 g/dL F 0.9-5.0 A/G RATIO 2024-06-01 18:21:15 1.3 Calc F 1.0-2.5 Lactate dehydrogenase [Enzymatic activity/volume] in Serum or Plasma 2024-06-01 18:20:15 275 U/L F 120.0-246.0 Bicarbonate [Moles/volume] in Serum or Plasma 2024-06-01 18:20:15 26 mEq/L F 20.0-31.0 Albumin [Mass/volume] in Serum or Plasma by Bromocresol green (BCG) dye binding method 2024-06-01 18:20:15 3.7 g/dL F 3.4-4.8 Protein [Mass/volume] in Serum or Plasma 2024-06-01 18:20:15 6.5 g/dL F 5.7-8.2 Glucose [Mass/volume] in Serum or Plasma 2024-06-01 18:20:15 83 mg/dL F 70.0-99.0 Potassium [Moles/volume] in Serum or Plasma 2024-05-05 06:09:40 4.2 mEq/L F 3.5-5.5 A/G RATIO 2024-05-04 18:19:24 1.3 Calc F 1.0-2.5 GLOBULIN 2024-05-04 18:19:24 2.7 g/dL F 0.9-5.0 Lactate dehydrogenase [Enzymatic activity/volume] in Serum or Plasma 2024-05-04 18:18:23 255 U/L F 120.0-246.0 Bicarbonate [Moles/volume] in Serum or Plasma 2024-05-04 18:18:23 27 mEq/L F 20.0-31.0 Albumin [Mass/volume] in Serum or Plasma by Bromocresol green (BCG) dye binding method 2024-05-04 18:18:23 3.4 g/dL F 3.4-4.8 Protein [Mass/volume] in Serum or Plasma 2024-05-04 18:18:23 6.1 g/dL F 5.7-8.2 Glucose [Mass/volume] in Serum or Plasma 2024-05-04 18:18:23 87 mg/dL F 70.0-99.0 Potassium [Moles/volume] in Serum or Plasma 2024-03-31 05:32:56 5 mEq/L F 3.5-5.5 GLOBULIN 2024-03-31 00:18:21 2.5 g/dL F 0.9-5.0 A/G RATIO 2024-03-31 00:18:21 1.4 Calc F 1.0-2.5 Lactate dehydrogenase [Enzymatic activity/volume] in Serum or Plasma 2024-03-31 00:17:17 263 U/L F 120.0-246.0 Bicarbonate [Moles/volume] in Serum or Plasma 2024-03-31 00:17:17 25 mEq/L F 20.0-31.0 Albumin [Mass/volume] in Serum or Plasma by Bromocresol green (BCG) dye binding method 2024-03-31 00:17:17 3.6 g/dL F 3.4-4.8 Protein [Mass/volume] in Serum or Plasma 2024-03-31 00:17:17 6.1 g/dL F 5.7-8.2 Glucose [Mass/volume] in Serum or Plasma 2024-03-31 00:17:17 83 mg/dL F 70.0-99.0 Potassium [Moles/volume] in Serum or Plasma 2024-03-03 04:51:24 3.9 mEq/L F 3.5-5.5 GLOBULIN 2024-03-02 18:15:59 2.3 g/dL F 0.9-5.0 A/G RATIO 2024-03-02 18:15:59 1.4 Calc F 1.0-2.5 Lactate dehydrogenase [Enzymatic activity/volume] in Serum or Plasma 2024-03-02 18:15:16 214 U/L F 120.0-246.0 Bicarbonate [Moles/volume] in Serum or Plasma 2024-03-02 18:15:16 26 mEq/L F 20.0-31.0 Albumin [Mass/volume] in Serum or Plasma by Bromocresol green (BCG) dye binding method 2024-03-02 18:15:16 3.3 g/dL F 3.4-4.8 Protein [Mass/volume] in Serum or Plasma 2024-03-02 18:15:16 5.6 g/dL F 5.7-8.2 Glucose [Mass/volume] in Serum or Plasma 2024-03-02 18:15:16 80 mg/dL F 70.0-99.0 Potassium [Moles/volume] in Serum or Plasma 2024-02-03 20:20:53 3.8 mEq/L F 3.5-5.5 GLOBULIN 2024-02-03 15:19:02 2.4 g/dL F 0.9-5.0 A/G RATIO 2024-02-03 15:19:02 1.4 Calc F 1.0-2.5 Lactate dehydrogenase [Enzymatic activity/volume] in Serum or Plasma 2024-02-03 15:18:15 224 U/L F 120.0-246.0 Bicarbonate [Moles/volume] in Serum or Plasma 2024-02-03 15:18:15 27 mEq/L F 20.0-31.0 Albumin [Mass/volume] in Serum or Plasma by Bromocresol green (BCG) dye binding method 2024-02-03 15:18:15 3.3 g/dL F 3.4-4.8 Protein [Mass/volume] in Serum or Plasma 2024-02-03 15:18:15 5.7 g/dL F 5.7-8.2 Glucose [Mass/volume] in Serum or Plasma 2024-02-03 15:18:15 87 mg/dL F 70.0-99.0 Potassium [Moles/volume] in Serum or Plasma 2023-12-30 17:48:06 3.3 mEq/L F 3.5-5.5 GLOBULIN 2023-12-30 13:01:02 2.4 g/dL F 0.9-5.0 A/G RATIO 2023-12-30 13:01:02 1.4 Calc F 1.0-2.5 Lactate dehydrogenase [Enzymatic activity/volume] in Serum or Plasma 2023-12-30 13:00:25 266 U/L F 120.0-246.0 Bicarbonate [Moles/volume] in Serum or Plasma 2023-12-30 13:00:25 27 mEq/L F 20.0-31.0 Albumin [Mass/volume] in Serum or Plasma by Bromocresol green (BCG) dye binding method 2023-12-30 13:00:25 3.3 g/dL F 3.4-4.8 Protein [Mass/volume] in Serum or Plasma 2023-12-30 13:00:25 5.7 g/dL F 5.7-8.2 Glucose [Mass/volume] in Serum or Plasma 2023-12-30 13:00:25 85 mg/dL F 70.0-99.0 Potassium [Moles/volume] in Serum or Plasma 2023-12-02 18:22:53 3.4 mEq/L F 3.5-5.5 A/G RATIO 2023-12-02 14:08:21 1.5 Calc F 1.0-2.5 GLOBULIN 2023-12-02 14:08:21 2.2 g/dL F 0.9-5.0 Lactate dehydrogenase [Enzymatic activity/volume] in Serum or Plasma 2023-12-02 14:08:17 263 U/L F 120.0-246.0 Bicarbonate [Moles/volume] in Serum or Plasma 2023-12-02 14:08:14 27 mEq/L F 20.0-31.0 Albumin [Mass/volume] in Serum or Plasma by Bromocresol green (BCG) dye binding method 2023-12-02 14:08:14 3.4 g/dL F 3.4-4.8 Protein [Mass/volume] in Serum or Plasma 2023-12-02 14:08:14 5.6 g/dL F 5.7-8.2 Glucose [Mass/volume] in Serum or Plasma 2023-12-02 14:08:14 83 mg/dL F 70.0-99.0 Potassium [Moles/volume] in Serum or Plasma 2023-10-29 05:27:13 3.6 mEq/L F 3.5-5.5 GLOBULIN 2023-10-28 17:33:56 2.2 g/dL F 0.9-5.0 A/G RATIO 2023-10-28 17:33:56 1.4 Calc F 1.0-2.5 Lactate dehydrogenase [Enzymatic activity/volume] in Serum or Plasma 2023-10-28 17:32:54 228 U/L F 120.0-246.0 Bicarbonate [Moles/volume] in Serum or Plasma 2023-10-28 17:32:54 27 mEq/L F 20.0-31.0 Albumin [Mass/volume] in Serum or Plasma by Bromocresol green (BCG) dye binding method 2023-10-28 17:32:54 3.1 g/dL F 3.4-4.8 Protein [Mass/volume] in Serum or Plasma 2023-10-28 17:32:54 5.3 g/dL F 5.7-8.2 Glucose [Mass/volume] in Serum or Plasma 2023-10-28 17:32:54 83 mg/dL F 70.0-99.0 Potassium [Moles/volume] in Serum or Plasma 2023-09-03 04:17:34 3.6 mEq/L F 3.5-5.5 GLOBULIN 2023-09-02 14:38:49 2.4 g/dL F 0.9-5.0 A/G RATIO 2023-09-02 14:38:49 1.3 Calc F 1.0-2.5 Lactate dehydrogenase [Enzymatic activity/volume] in Serum or Plasma 2023-09-02 14:38:30 229 U/L F 120.0-246.0 Bicarbonate [Moles/volume] in Serum or Plasma 2023-09-02 14:38:30 24 mEq/L F 20.0-31.0 Albumin [Mass/volume] in Serum or Plasma by Bromocresol green (BCG) dye binding method 2023-09-02 14:38:30 3.2 g/dL F 3.4-4.8 Protein [Mass/volume] in Serum or Plasma 2023-09-02 14:38:30 5.6 g/dL F 5.7-8.2 Glucose [Mass/volume] in Serum or Plasma 2023-09-02 14:38:30 79 mg/dL F 70.0-99.0 Potassium [Moles/volume] in Serum or Plasma 2023-07-30 02:38:28 3.6 mEq/L F 3.5-5.5 GLOBULIN 2023-07-29 15:50:40 2.6 g/dL F 0.9-5.0 A/G RATIO 2023-07-29 15:50:40 1.3 Calc F 1.0-2.5 Lactate dehydrogenase [Enzymatic activity/volume] in Serum or Plasma 2023-07-29 15:49:50 233 U/L F 120.0-246.0 Bicarbonate [Moles/volume] in Serum or Plasma 2023-07-29 15:49:50 28 mEq/L F 20.0-31.0 Albumin [Mass/volume] in Serum or Plasma by Bromocresol green (BCG) dye binding method 2023-07-29 15:49:50 3.3 g/dL F 3.4-4.8 Protein [Mass/volume] in Serum or Plasma 2023-07-29 15:49:50 5.9 g/dL F 5.7-8.2 Glucose [Mass/volume] in Serum or Plasma 2023-07-29 15:49:50 78 mg/dL F 70.0-99.0 Potassium [Moles/volume] in Serum or Plasma 2023-07-02 02:00:35 3.8 mEq/L F 3.5-5.5 GLOBULIN 2023-07-01 15:29:58 2.6 g/dL F 0.9-5.0 A/G RATIO 2023-07-01 15:29:58 1.3 Calc F 1.0-2.5 Lactate dehydrogenase [Enzymatic activity/volume] in Serum or Plasma 2023-07-01 15:29:29 192 U/L F 120.0-246.0 Bicarbonate [Moles/volume] in Serum or Plasma 2023-07-01 15:29:29 25 mEq/L F 20.0-31.0 Albumin [Mass/volume] in Serum or Plasma by Bromocresol green (BCG) dye binding method 2023-07-01 15:29:29 3.4 g/dL F 3.4-4.8 Protein [Mass/volume] in Serum or Plasma 2023-07-01 15:29:29 6 g/dL F 5.7-8.2 Glucose [Mass/volume] in Serum or Plasma 2023-07-01 15:29:29 92 mg/dL F 70.0-99.0 Potassium [Moles/volume] in Serum or Plasma 2023-06-03 23:38:56 4.8 mEq/L F 3.5-5.5 GLOBULIN 2023-06-03 15:07:12 2.6 g/dL F 0.9-5.0 A/G RATIO 2023-06-03 15:07:12 1.3 Calc F 1.0-2.5 Bicarbonate [Moles/volume] in Serum or Plasma 2023-06-03 15:06:59 24 mEq/L F 20.0-31.0 Glucose [Mass/volume] in Serum or Plasma 2023-06-03 15:06:59 87 mg/dL F 70.0-99.0 Lactate dehydrogenase [Enzymatic activity/volume] in Serum or Plasma 2023-06-03 15:06:56 197 U/L F 120.0-246.0 Albumin [Mass/volume] in Serum or Plasma by Bromocresol green (BCG) dye binding method 2023-06-03 15:06:56 3.3 g/dL F 3.4-4.8 Protein [Mass/volume] in Serum or Plasma 2023-06-03 15:06:56 5.9 g/dL F 5.7-8.2 Potassium [Moles/volume] in Serum or Plasma 2023-04-29 21:09:04 4.2 mEq/L F 3.5-5.5 GLOBULIN 2023-04-29 16:37:05 2.8 g/dL F 0.9-5.0 A/G RATIO 2023-04-29 16:37:05 1.1 Calc F 1.0-2.5 Lactate dehydrogenase [Enzymatic activity/volume] in Serum or Plasma 2023-04-29 16:36:15 198 U/L F 120.0-246.0 Bicarbonate [Moles/volume] in Serum or Plasma 2023-04-29 16:36:15 25 mEq/L F 20.0-31.0 Albumin [Mass/volume] in Serum or Plasma by Bromocresol green (BCG) dye binding method 2023-04-29 16:36:15 3.2 g/dL F 3.4-4.8 Protein [Mass/volume] in Serum or Plasma 2023-04-29 16:36:15 6 g/dL F 5.7-8.2 Glucose [Mass/volume] in Serum or Plasma 2023-04-29 16:36:15 88 mg/dL F 70.0-99.0 Potassium [Moles/volume] in Serum or Plasma 2023-04-02 05:41:25 3.9 mEq/L F 3.5-5.5 GLOBULIN 2023-04-01 15:27:24 2.6 g/dL F 0.9-5.0 A/G RATIO 2023-04-01 15:27:24 1 Calc F 1.0-2.5 Lactate dehydrogenase [Enzymatic activity/volume] in Serum or Plasma 2023-04-01 15:26:33 306 U/L F 120.0-246.0 Bicarbonate [Moles/volume] in Serum or Plasma 2023-04-01 15:26:33 26 mEq/L F 20.0-31.0 Albumin [Mass/volume] in Serum or Plasma by Bromocresol green (BCG) dye binding method 2023-04-01 15:26:33 2.7 g/dL F 3.4-4.8 Protein [Mass/volume] in Serum or Plasma 2023-04-01 15:26:33 5.3 g/dL F 5.7-8.2 Glucose [Mass/volume] in Serum or Plasma 2023-04-01 15:26:33 77 mg/dL F 70.0-99.0 Lactate dehydrogenase [Enzymatic activity/volume] in Serum or Plasma 2023-03-09 17:03:31 477 U/L F 120.0-246.0 GLOBULIN 2023-02-25 15:29:42 2.4 g/dL F 0.9-5.0 A/G RATIO 2023-02-25 15:29:42 1.2 Calc F 1.0-2.5 Lactate dehydrogenase [Enzymatic activity/volume] in Serum or Plasma 2023-02-25 15:29:30 535 U/L F 120.0-246.0 Bicarbonate [Moles/volume] in Serum or Plasma 2023-02-25 15:29:30 29 mEq/L F 20.0-31.0 Albumin [Mass/volume] in Serum or Plasma by Bromocresol green (BCG) dye binding method 2023-02-25 15:29:30 2.8 g/dL F 3.4-4.8 Potassium [Moles/volume] in Serum or Plasma 2023-02-25 15:29:30 3.8 mEq/L F 3.5-5.5 Protein [Mass/volume] in Serum or Plasma 2023-02-25 15:29:30 5.2 g/dL F 5.7-8.2 Glucose [Mass/volume] in Serum or Plasma 2023-02-25 15:29:30 74 mg/dL F 70.0-99.0 GLOBULIN 2023-01-28 14:15:36 2.9 g/dL F 0.9-5.0 A/G RATIO 2023-01-28 14:15:36 1.1 Calc F 1.0-2.5 Lactate dehydrogenase [Enzymatic activity/volume] in Serum or Plasma 2023-01-28 14:15:31 273 U/L F 120.0-246.0 Bicarbonate [Moles/volume] in Serum or Plasma 2023-01-28 14:15:31 24 mEq/L F 20.0-31.0 Albumin [Mass/volume] in Serum or Plasma by Bromocresol green (BCG) dye binding method 2023-01-28 14:15:31 3.2 g/dL F 3.4-4.8 Potassium [Moles/volume] in Serum or Plasma 2023-01-28 14:15:31 4.2 mEq/L F 3.5-5.5 Protein [Mass/volume] in Serum or Plasma 2023-01-28 14:15:31 6.1 g/dL F 5.7-8.2 Glucose [Mass/volume] in Serum or Plasma 2023-01-28 14:15:31 79 mg/dL F 70.0-99.0 GLOBULIN 2022 17:27:16 2.7 g/dL F 0.9-5.0 A/G RATIO 2022 17:27:16 1.2 Calc F 1.0-2.5 Lactate dehydrogenase [Enzymatic activity/volume] in Serum or Plasma 2022 17:26:37 241 U/L F 120.0-246.0 Bicarbonate [Moles/volume] in Serum or Plasma 2022 17:26:37 26 mEq/L F 20.0-31.0 Albumin [Mass/volume] in Serum or Plasma by Bromocresol green (BCG) dye binding method 2022 17:26:37 3.2 g/dL F 3.4-4.8 Potassium [Moles/volume] in Serum or Plasma 2022 17:26:37 3.6 mEq/L F 3.5-5.5 Protein [Mass/volume] in Serum or Plasma 2022 17:26:37 5.9 g/dL F 5.7-8.2 Glucose [Mass/volume] in Serum or Plasma 2022 17:26:37 89 mg/dL F 70.0-99.0 GLOBULIN 2022-12-03 13:29:48 2.5 g/dL F 0.9-5.0 A/G RATIO 2022-12-03 13:29:48 1.3 Calc F 1.0-2.5 Protein [Mass/volume] in Serum or Plasma 2022-12-03 13:29:33 5.8 g/dL F 5.7-8.2 Glucose [Mass/volume] in Serum or Plasma 2022-12-03 13:29:33 90 mg/dL F 70.0-99.0 Lactate dehydrogenase [Enzymatic activity/volume] in Serum or Plasma 2022-12-03 13:29:33 238 U/L F 120.0-246.0 Bicarbonate [Moles/volume] in Serum or Plasma 2022-12-03 13:29:33 26 mEq/L F 20.0-31.0 Albumin [Mass/volume] in Serum or Plasma by Bromocresol green (BCG) dye binding method 2022-12-03 13:29:33 3.3 g/dL F 3.4-4.8 Potassium [Moles/volume] in Serum or Plasma 2022-12-03 13:29:33 3.5 mEq/L F 3.5-5.5 GLOBULIN 2022-10-29 15:38:33 2.5 g/dL F 0.9-5.0 A/G RATIO 2022-10-29 15:38:33 1.4 Calc F 1.0-2.5 Lactate dehydrogenase [Enzymatic activity/volume] in Serum or Plasma 2022-10-29 15:38:20 200 U/L F 120.0-246.0 Bicarbonate [Moles/volume] in Serum or Plasma 2022-10-29 15:38:20 25 mEq/L F 20.0-31.0 Albumin [Mass/volume] in Serum or Plasma by Bromocresol green (BCG) dye binding method 2022-10-29 15:38:20 3.6 g/dL F 3.4-4.8 Potassium [Moles/volume] in Serum or Plasma 2022-10-29 15:38:20 3.7 mEq/L F 3.5-5.5 Protein [Mass/volume] in Serum or Plasma 2022-10-29 15:38:20 6.1 g/dL F 5.7-8.2 Glucose [Mass/volume] in Serum or Plasma 2022-10-29 15:38:20 97 mg/dL F 70.0-99.0 GLOBULIN 2022-10-01 17:24:14 2.6 g/dL F 0.9-5.0 A/G RATIO 2022-10-01 17:24:14 1.4 Calc F 1.0-2.5 Potassium [Moles/volume] in Serum or Plasma 2022-10-01 17:23:14 4.5 mEq/L F 3.5-5.5 Lactate dehydrogenase [Enzymatic activity/volume] in Serum or Plasma 2022-10-01 17:23:13 187 U/L F 120.0-246.0 Bicarbonate [Moles/volume] in Serum or Plasma 2022-10-01 17:23:13 25 mEq/L F 20.0-31.0 Albumin [Mass/volume] in Serum or Plasma by Bromocresol green (BCG) dye binding method 2022-10-01 17:23:13 3.6 g/dL F 3.4-4.8 Protein [Mass/volume] in Serum or Plasma 2022-10-01 17:23:13 6.2 g/dL F 5.7-8.2 Glucose [Mass/volume] in Serum or Plasma 2022-10-01 17:23:13 110 mg/dL F 70.0-99.0 A/G RATIO 2022-09-01 17:28:23 1.4 Calc F 1.0-2.5 GLOBULIN 2022-09-01 17:28:23 2.5 g/dL F 0.9-5.0 Lactate dehydrogenase [Enzymatic activity/volume] in Serum or Plasma 2022-09-01 17:28:11 178 U/L F 120.0-246.0 Bicarbonate [Moles/volume] in Serum or Plasma 2022-09-01 17:28:11 24 mEq/L F 20.0-31.0 Albumin [Mass/volume] in Serum or Plasma by Bromocresol green (BCG) dye binding method 2022-09-01 17:28:11 3.6 g/dL F 3.4-4.8 Potassium [Moles/volume] in Serum or Plasma 2022-09-01 17:28:11 4.4 mEq/L F 3.5-5.5 Protein [Mass/volume] in Serum or Plasma 2022-09-01 17:28:11 6.1 g/dL F 5.7-8.2 Glucose [Mass/volume] in Serum or Plasma 2022-09-01 17:28:11 103 mg/dL F 70.0-99.0 GLOBULIN 2022-07-30 15:10:55 2.7 g/dL F 0.9-5.0 A/G RATIO 2022-07-30 15:10:55 1.3 Calc F 1.0-2.5 Lactate dehydrogenase [Enzymatic activity/volume] in Serum or Plasma 2022-07-30 15:10:15 227 U/L F 120.0-246.0 Bicarbonate [Moles/volume] in Serum or Plasma 2022-07-30 15:10:15 27 mEq/L F 20.0-31.0 Albumin [Mass/volume] in Serum or Plasma by Bromocresol green (BCG) dye binding method 2022-07-30 15:10:15 3.6 g/dL F 3.4-4.8 Potassium [Moles/volume] in Serum or Plasma 2022-07-30 15:10:15 4.2 mEq/L F 3.5-5.5 Protein [Mass/volume] in Serum or Plasma 2022-07-30 15:10:15 6.3 g/dL F 5.7-8.2 Glucose [Mass/volume] in Serum or Plasma 2022-07-30 15:10:15 81 mg/dL F 70.0-99.0 GLOBULIN 2022-07-02 18:34:15 2.6 g/dL F 0.9-5.0 A/G RATIO 2022-07-02 18:34:15 1.3 Calc F 1.0-2.5 Lactate dehydrogenase [Enzymatic activity/volume] in Serum or Plasma 2022-07-02 18:33:16 219 U/L F 120.0-246.0 Bicarbonate [Moles/volume] in Serum or Plasma 2022-07-02 18:33:16 27 mEq/L F 20.0-31.0 Albumin [Mass/volume] in Serum or Plasma by Bromocresol green (BCG) dye binding method 2022-07-02 18:33:16 3.4 g/dL F 3.4-4.8 Potassium [Moles/volume] in Serum or Plasma 2022-07-02 18:33:16 3.7 mEq/L F 3.5-5.5 Protein [Mass/volume] in Serum or Plasma 2022-07-02 18:33:16 6 g/dL F 5.7-8.2 Glucose [Mass/volume] in Serum or Plasma 2022-07-02 18:33:16 79 mg/dL F 70.0-99.0 GLOBULIN 2022-06-04 15:10:30 2.9 g/dL F 0.9-5.0 A/G RATIO 2022-06-04 15:10:30 1.2 Calc F 1.0-2.5 Lactate dehydrogenase [Enzymatic activity/volume] in Serum or Plasma 2022-06-04 15:10:00 255 U/L F 120.0-246.0 Bicarbonate [Moles/volume] in Serum or Plasma 2022-06-04 15:10:00 25 mEq/L F 20.0-31.0 Albumin [Mass/volume] in Serum or Plasma by Bromocresol green (BCG) dye binding method 2022-06-04 15:10:00 3.6 g/dL F 3.4-4.8 Potassium [Moles/volume] in Serum or Plasma 2022-06-04 15:10:00 4 mEq/L F 3.5-5.5 Glucose [Mass/volume] in Serum or Plasma 2022-06-04 15:10:00 96 mg/dL F 70.0-99.0 Protein [Mass/volume] in Serum or Plasma 2022-06-04 15:10:00 6.5 g/dL F 5.7-8.2 GLOBULIN 2022-04-30 18:56:47 2.6 g/dL F 0.9-5.0 A/G RATIO 2022-04-30 18:56:47 1.4 Calc F 1.0-2.5 Lactate dehydrogenase [Enzymatic activity/volume] in Serum or Plasma 2022-04-30 18:55:46 229 U/L F 120.0-246.0 Bicarbonate [Moles/volume] in Serum or Plasma 2022-04-30 18:55:46 27 mEq/L F 20.0-31.0 Albumin [Mass/volume] in Serum or Plasma by Bromocresol green (BCG) dye binding method 2022-04-30 18:55:46 3.6 g/dL F 3.4-4.8 Potassium [Moles/volume] in Serum or Plasma 2022-04-30 18:55:46 3.8 mEq/L F 3.5-5.5 Glucose [Mass/volume] in Serum or Plasma 2022-04-30 18:55:46 80 mg/dL F 70.0-99.0 Protein [Mass/volume] in Serum or Plasma 2022-04-30 18:55:46 6.2 g/dL F 5.7-8.2 GLOBULIN 2022-04-06 08:33:47 F Canceled - Specimen not received 5 days past draw date A/G RATIO 2022-04-06 08:33:47 F Canceled - Specimen not received 5 days past draw date Glucose [Mass/volume] in Serum or Plasma 2022-04-06 08:06:05 F Canceled - Specimen not received 5 days past draw date Bicarbonate [Moles/volume] in Serum or Plasma 2022-04-06 08:06:05 F Canceled - Specimen not received 5 days past draw date Albumin [Mass/volume] in Serum or Plasma by Bromocresol green (BCG) dye binding method 2022-04-06 08:06:05 F Canceled - Specimen not received 5 days past draw date Potassium [Moles/volume] in Serum or Plasma 2022-04-06 08:06:05 F Canceled - Specimen not received 5 days past draw date Protein [Mass/volume] in Serum or Plasma 2022-04-06 08:06:05 F Canceled - Specimen not received 5 days past draw date Lactate dehydrogenase [Enzymatic activity/volume] in Serum or Plasma 2022-04-06 08:06:05 F Canceled - Specimen not received 5 days past draw date Encounters No encounter information to report Immunizations Ordered Immunization Name Filled Immunization Name Date Status Comments Refusal Reason Pneumococcal conjugate PCV20, polysaccharide [id number] conjugate, adjuvant, PF 2024-05-02 06:00:00 Influenza Vaccination 2024-02-07 05:00:00 TST-PPD intradermal 2023-11-29 11:11:28 Covid-19 Vaccination 2023-01-05 05:00:00 Influenza Vaccination 2023-01-05 05:00:00 TST-PPD intradermal 2022-11-16 11:55:00 Influenza Vaccination 2021-12-23 05:00:00 Plan of Treatment Planned Activity Provider Planned Date Details Commen ts Diagnostic Test Pending Joshua Motley 2022-03-21 06:00:00 Sodium [Moles/volume] in Serum or Plasma [code = 2951-2] Diagnostic Test Pending Joshua Motley 2022-03-21 06:00:00 Albumin [Mass/volume] in Serum or Plasma by Bromocresol green (BCG) dye binding method [code = 93181-9] Future Scheduled Test Joshua Motley 2024-08-15 05:00:00 Albumin [Mass/volume] in Serum or Plasma by Bromocresol green (BCG) dye binding method [code = 14734-0] Diagnostic Test Pending Joshua Motley 2023-01-09 05:00:00 Alanine aminotransferase [Enzymatic activity/volume] in Serum or Plasma [code = 1742-6] Diagnostic Test Pending Joshua Motley 2022-03-22 07:32:27 Parathyrin.intact [Mass/volume] in Serum or Plasma [code = 2731-8] Diagnostic Test Pending Joshua Motley 2022-03-21 06:00:00 Glucose [Mass/volume] in Serum or Plasma [code = 2345-7] Diagnostic Test Pending Joshua Motley 2024-06-24 05:00:00 Hemoglobin [Mass/volume] in Blood [code = 718-7] Diagnostic Test Pending Joshua Martínez Tiesha 2022-04-11 06:00:00 Aluminum [Mass/volume] in Serum or Plasma [code = 5574-9] Diagnostic Test Pending Joshua Mauricio Nixon 2022-03-21 06:00:00 Creatinine [Mass/volume] in Serum or Plasma [code = 2160-0] Diagnostic Test Pending Joshua Mauricio Nixon 2023-05-12 07:18:00 Ferritin [Mass/volume] in Serum or Plasma [code = 2276-4] [facility] 14:41:58 In-Center Hemodialysis Treatment [code = XOG663] Diet [facility] 2022 Diet Calorie 30 kcal/kg Fluid Value 1000 mL/d Phosphorus Value 700 mg/d Potassium Value 2000 mg/d Protein Value 1.2 gm/kg Sodium Value 2000 mg/d Calculated Weight 50 kg dietary_diet_modification Calories Incre ased for Weight Gain;
--- OUTSIDE RECORDS SUMMARY | 2024-08-12 19:06 | XMS_ITS | Continuity of Care Document ---
Author Organization [facility] Address [address] [place] [address] Phone Care Team Providers Care Corporate Law Specialist Name Role Phone Kaden Brown MD Unavailable Unavailabl e Allergies, Adverse Reactions, Alerts Substance Reaction Status Criticality PENICILLIN Unknown Active No Information Medications Medication Instructions Dosage Effective Dates (start - stop) Status Comments atorvastatin 40 mg tablet - Active carvedilol 12.5 mg tablet - Active omeprazole 40 mg capsule,delayed release - Active trazodone 50 mg tablet - Act edi oxybutynin chloride 5 mg tablet TAKE 1 TABLET BY MOUTH EVERYDAY AT BEDTIME - Active melatonin 3 mg tablet TAKE 1 TABLET BY MOUTH NIGHTLY NEEDED FOR SLEEP - Active isosorbide mononitrate ER 30 mg tablet,extended release 24 hr - Active lisinopril 20 mg tablet TAKE 1 TABLET BY MOUTH DAILY - Active ergocalciferol (vitamin D2) 1,250 mcg (50,000 unit) capsule - Active lidocaine-prilocaine 2.5 %-2.5 % topical cream APPLY TO ACCESS SITE 30 TO 45 MINUTES BEFORE TREATMENT - Active nifedipine ER 30 mg tablet,extended release TAKE 1 TABLET BY MOUTH DAILY BEFORE DIALYSIS TREATMENT - Active Brilinta 90 mg tablet TAKE 1 TABLET BY MOUTH 2 TIMES A DAY. - Active hydralazine 25 mg tablet TAKE 1 TABLET BY MOUTH THREE TIMES A DAY - Active nifedipine ER 60 mg tablet,extended release 24 hr - Active Procedures Procedure Date To Be Coded MOD SED BY OR SUP BY PHYSICIAN INTRO CATH DIALYSIS CIRCUIT To Be Coded Intro cath dialysis circuit Mod sed same phys/qhp 5/>yrs Intro cath dialysis circuit Mod sed same phys/qhp 5/>yrs Advance Directives Directive Yes / No Effective Date File Name No Information Encounters Encounter Description Practice Location Reason(s) For Visit Diagnoses Date Provider Providers Copied on Encounter [facility], [address], [place], [id number], tel:[phone] [facility] 5 Kevin Alfonso . [address] [place] [address], [id number] , . tel:[phone] Referring Provider: Joshua Rushing, [address] [place] [address], [id number]. tel:[phone] [facility], [address] [place] [address], [id number], tel:[phone] [facility] Compression of VeinEnd stage renal disease 4 Montes Jayshree. [address] [place] [address], [id number] , [place]. tel:[phone] Referring Provider: Joshua Rushing, [address] [place] [address], [id number]. tel:[phone] [facility], [address] [place] [address], [id number], tel:[phone] [facility] End stage renal diseaseCompression of Vein 4 Montes Jayshree. [address] [place] [address], [id number] , [place]. tel:[phone] Referring Provider: Joshua Rushing, [address] [place] [address], [id number]. tel:[phone] [facility], [address] [place] [address], [id number], tel:[phone] [facility] No Information 4 Montes Jayshree. [address] [place] [address], [id number] , [place]. tel:[phone] As per patient privacy policy some of the clinical information may not be visible. Family History Family Member Type Diagnosis Age At Onset No Information Payers Payer name Insurance type Covered alliance party ID Authortere mcknight(s) Medicare [facility] [id number] [employer] [place] Fep BL [id number] Social History Type Description Quantity Date Captured Comments Alcohol Use Details No Caffeine Use Details Unknown Tobacco Use Status No Information Smoking Status Former smoker Sex Female Gender Identity Female Vital Signs Date / Time: Height Weight BMI Pulse Rate Blood Pressure Temperature Respiratory Rate Body Surface Area Head Circumference Head Circ. Percentile Wt./Nii. Percentile BMI percentile Pulse Ox Inhaled Ox 10:50 AM 94 /min 218/85 mm[Hg] 98.80 F 16 /min Chief Complaint And Reason For Visit No Information Reason For Referral Reason For Referral No Information Plan Of Treatment Date Type Action Status Appointment HORACIO PERES// IWONA TAYLOR 12 MON TH F/U BOOKED Future Order: Radiology Order Up per Body Flouroscopy ([id number]), Ordered on: Ordered History Of Present Illness Encounter Date Complaint History Of Prese nt Illness No Information Functional Status Date Functional Assessmen t No Information Instructions Date Instruction Additional Infor mation No Information Assessments Type Assessment Date No Information Patient Care Teams Name Effective Dates (start - stop) Status Members No Information
--- OUTSIDE RECORDS SUMMARY | 2024-08-12 19:06 | XMS_ITS | Clinical Summary ---
Author Organization [facility] Address [address], [place] [address] Phone Care Team Providers Care Chocolate Finisher Name Role Phone Tricia Trejo MD Primary Care Provider [phone] Allergies Active Allergy Reactions Criticality Noted Date Comments Penicillins Rash Medium 11/12/2018 Medications aspirin ([facility]) 81 MG EC tablet aspirin 81 mg tablet,delay ed release Take 1 tablet every day by oral route. 05/28/2020 Active atorvastatin (LIPITOR) 20 MG tablet Take 20 mg by mouth 1 (one) time each day 10/20/2020 Active ferrous sulfate 325 (65 Fe) MG tablet Take 1 tablet by mouth 2 (two) times a day with meals 09/07/2020 Active hydrALAZINE (APRESOLINE) 25 MG tablet TAKE 1 TABLET 3 TIMES A DAY BY ORAL ROUTE. 10/02/2020 Active isosorbide mononitrate (IMDUR) 30 MG 24 hr tablet Take 30 mg by mouth 1 (one) time each day 10/20/2020 Active zolpidem (AMBIEN) 5 MG tablet Take 5 mg by mouth 1 (one) time each day 10/21/2020 Active lisinopril (PRINIVIL) 40 MG tablet Take 1 tablet (40 mg total) by mouth 1 (one) time each day 90 tablet 3 11/24/2020 Active Active Problems Problem Noted Date Diagnosed Date Carotid artery stenosis 11/20/2020 Essential hypertension 11/20/2020 Cardiovascular stress test abnormal 10/15/2020 Chronic kidney disease, Stage V 10/15/2020 Peripheral vascular disease 10/15/2020 Immunizations Immunization Administration Dates Next Due Influenza, Injectable, Quadrivalent 01/13/2021 Social History Tobacco Use Types Packs/Day Years Used Date Smoking Tobacco: Never Assessed Comments Unknown Sex and Gender Information Value Date Recorded Sex Assigned at Not on file Legal Sex Female 8:25 AM MDT Gender Identity Not on file Sexual Orientation Not on file Last Filed Vital Signs Vital Sign Reading Time Taken Comments Blood Pressure 158/80 11/24/2020 11:53 AM CDT Pulse 96 11/24/2020 11:53 AM CDT Temperature 36.4 C (97.6 F) 11/24/2020 11:53 AM CDT Respiratory Rate - - Oxygen Saturation - - Inhaled Oxygen Concentration - - Weight 46.3 kg (102 lb) 11/24/2020 11:53 AM CDT Height 160 cm (5' 3 ) 11/24/2020 11:53 AM CDT Body Mass Index 18.07 11/24/2020 11:53 AM CDT Plan of Treatment Health Maintenance Due Date Last Done Comments Pneumococcal PPSV23/PCV13 65 + Years / Low and Medium Risk (1 of 4 - PCV) 1994 Influenza Vaccine (Season Ended) [address] [place] [address] Care Teams Chocolate Finisher Relationship Specialty Start Date End Date Tricia Trejo MD [address] [place] [address] [address] [place] [address] PCP - General Family Medicine 10/14/20
--- NOTE | 2024-08-12 19:28 | ECG_ITS ---
Test Date: 2024-08-12 19:50:27 Measurements Intervals [place] Rate: 82 P: 21 KS: 96 QRS: 65 QRSD: 79 T: 64 QT: 410 QTc: 480 Interpretive Statements SINUS RHYTHM WITH SHORT [place] INTERVAL NONSPECIFIC T-WAVE ABNORMALITY Electronically Signed On 08-13-2024 06:53:49 CDT by Minerva Chatman M.D.
--- NOTE | 2024-08-12 19:57 | ED_ITS ---
HPI - General Adult General Chief complaint: Unspecified Stated complaint: dizzy, R arm numbness Time Seen by Provider: 08/12/24 18:38 Source: patient Mode of arrival: EMS Limitations: no limitations History of Present Illness HPI narrative: Patient is a 78 y/o female, with PMH of ESRD on HD T//S, COPD, CHF, who presents to the ED via EMS with report of R arm pain. Patient reports she developed pain throughout her right arm last night. States it is an intermittent pain diffusely throughout the arm, feels like an aching/tooth ache. Denies pain being worse with movement. Tried taking aspirin at home without improvement. She states her arm feels somewhat tingly. Denies numbness. Denies chest pain or shortness of breath. Denies any fall or injury. Patient did receive her normal dialysis treatment yesterday. Related Data Home Medications ?Medication ?Instructions ?Recorded ?Confirmed ?Last Taken ?Type aspirin 81 mg tablet 81 mg PO DAILY 05/10/20 03/10/24 09/03/23 History melatonin 3 mg tablet 3 mg PO HS PRN Sleep 12/08/22 03/10/24 09/03/23 History omeprazole 40 mg capsule,delayed 40 mg PO DAILY 12/08/22 03/10/24 1 Day Ago History release ~09/03/23 oxybutynin chloride 5 mg tablet 5 mg PO HS 12/08/22 03/10/24 09/03/23 History trazodone 50 mg tablet 50 mg PO HS 12/08/22 03/10/24 09/03/23 History ergocalciferol (vitamin D2) 1,250 50,000 unit PO BID 10/11/23 03/10/24 Unknown History mcg (50,000 unit) capsule ticagrelor 90 mg tablet (Brilinta) 90 mg PO BID 10/11/23 03/10/24 Unknown History albuterol sulfate 90 mcg/actuation 2 puff inhalation Q6H PRN 12/14/23 03/10/24 Unknown History aerosol inhaler Shortness Of Breath lisinopril 20 mg tablet 20 mg PO DAILY 12/15/23 03/10/24 12/14/23 History atorvastatin 80 mg tablet 80 mg PO HS 03/10/24 03/10/24 Unknown History carvedilol 25 mg tablet 25 mg PO BIDWM 03/10/24 03/10/24 Unknown History Allergies Allergy/AdvReac Type Severity Reaction Status Date / Time Penicillins Allergy Unknown Unknown,[place] Verified 08/12/24 18:25 h Review of Systems 2 Review of Systems: All systems reviewed & are unremarkable except as noted in HPI. All systems reviewed & are unremarkable except as noted in HPI and below [facility] Past Medical History Medical History Hyperparathyroidism due to ESRD on dialysis End-stage renal disease on hemodialysis Tuesday. Dialysis managed by Dr. Joshua Motley Hyperlipidemia Chronic anemia History of blood transfusion. COPD with emphysema Peripheral arterial disease Combined systolic and diastolic congestive heart failure Echocardiogram on 09/10/2020 EF of 20 to 25%, grade 1 diastolic dysfunction, reduced RV systolic function. 12/2020 echo EF 40-46% with segmental wall motion abnormalities Gastric AVM Cardiomyopathy Presumed ischemic with moderately sized moderately severe reversible defect and small mild non reversible infarct on Lexiscan stress on 09/12/2020. Hypertension Surgical History Surgical History Surgically constructed arteriovenous fistula Left upper arm History of colonoscopy History of colon polyps, internal hemorrhoids, and diverticulosis. History of esophagogastroduodenoscopy History of gastric erosions, gastric polyps, and duodenal AVMs. History of revascularization procedure of lower extremity (10/2019) Bilateral lower extremity stents per Dr. Carrillo. History of vascular surgery (06/12/13) Aorto bi-iliac bypass graft per Dr. Carrillo. Family History Family History Mother Alzheimer disease Father Emphysema of lung Social History Social History Social History: Surrogate medical decision maker: Dhaval Allen, hay. Code status: Full code. Smoking packs per day: 1 Smoking cigarettes per day: 20.0 Years smoked: 55 Smoking pack-years: 55.00 Smoking status: Former smoker Second hand tobacco smoke exposure: Yes Alcohol intake: never Substance use: never Substance use type: does not use Do You Feel Safe in your Home?: Yes Lack of Transportation: No Lack of Food: Never True Current Housing: I Have Housing Concerned About Future Housing: No Difficulty Paying Gas/Electric Bills: No Difficulty Paying for Meds: No Currently Unemployed: No Education: Associate Degree Difficulty w/ Childcare or Family Care: No Additional living arrangements comments: . Lives with her only son in [place]. Additional occupation/education comments: Retired from the [employer]. Spiritual care concerns: No Exam 2 Narrative: GENERAL: Elderly, chronically ill-appearing, thin, non-toxic, in no acute distress. HEAD: Normocephalic, atraumatic. RESPIRATORY: Airway patent, respirations nonlabored. Clear to auscultation bilaterally, no rales, rhonchi, wheezing. CARDIOVASCULAR: Regular rate and rhythm without murmurs, rubs, or gallops. Radial pulses intact. MUSCULOSKELETAL: Moves all extremities. No gross deformities. Normal ROM of RUE. No swelling throughout extremity. Sensation intact throughout extremity. No appreciable reproducible bony tenderness throughout RUE. SKIN: Warm, dry, normal color. NEURO: A&O X3. Speech clear. Cranial nerves II-XII grossly intact. Steady gait. No ataxic movements. PSYCHIATRIC: Appropriate mood and affect. Normal interaction. Course Vital Signs Vital signs: Vital Signs Temperature 98.3 F 08/12/24 18:10 Pulse Rate 94 08/12/24 18:10 Respiratory Rate 16 08/12/24 18:10 Blood Pressure 150/65 H 08/12/24 18:10 Pulse Oximetry 100 08/12/24 18:10 Oxygen Delivery Room Air 08/12/24 18:10 Temperature 98.3 F 08/12/24 18:10 Pulse Rate 97 08/12/24 22:16 Respiratory Rate 17 08/12/24 22:16 Blood Pressure 182/68 H 08/12/24 22:16 Pulse Oximetry 97 08/12/24 22:16 Oxygen Delivery Room Air 08/12/24 18:10 Medical Decision Making MDM Narrative Medical decision making narrative: Patient presented to ED with right arm pain/achiness. Began last night, persistent throughout the day today. Did receive full dialysis treatment yesterday. Vital signs are stable upon arrival. Patient is in no acute distress. She appears neurovascularly intact. No reproducible tenderness on exam. No features to suggest DVT on exam. Cardiac workup was obtained. EKG with some nonspecific ST changes, no concerning ischemic changes. Baseline troponin did result elevated at 0.045. Patient has history of end-stage renal disease on hemodialysis. She has had similarly elevated troponin levels in the past, but has also had normal troponin levels. Unclear whether troponin elevation today kidney failure versus atypical presentation of coronary disease with right arm pain. Discussed this with patient. She was given Tylenol and Flexeril in the ED. On re-evaluation, she does report that pain is improved. I discussed admission for further cardiac evaluation, however patient immediately adamantly declined admission. Discussed awaiting for 3 hour troponin to determine if troponin levels are increasing or remaining flat. Patient also declined this. States she would like to be discharged at this time. Advised if she would like to leave the facility, she would need to sign out against medical advice as I am not able to complete the workup. She is agreeable to this. She would like to sign out against medical advice. She does not wish for any further workup. She is alert oriented x4, her own decision maker, of sound mind, capable of making her own decisions. Paperwork was signed. Patient was advised of the risks of leaving AMA, including , disability, [place], cardiac arrest. Patient voiced understanding of risks and would still like to leave the facility. She was given return precautions and advised she can return to the ED at any time to resume evaluation. Patient left the facility in stable condition. Medical Records Medical records reviewed: Yes I reviewed the external patient's medical records. Vital Signs Vital Signs: Vital Signs Temperature 98.3 F 08/12/24 18:10 Pulse Rate 94 08/12/24 18:10 Respiratory Rate 16 08/12/24 18:10 Blood Pressure 150/65 H 08/12/24 18:10 Pulse Oximetry 100 08/12/24 18:10 Oxygen Delivery Room Air 08/12/24 18:10 Temperature 98.3 F 08/12/24 18:10 Pulse Rate 97 08/12/24 22:16 Respiratory Rate 17 08/12/24 22:16 Blood Pressure 182/68 H 08/12/24 22:16 Pulse Oximetry 97 08/12/24 22:16 Oxygen Delivery Room Air 08/12/24 18:10 Lab Data Lab results reviewed: Yes I reviewed the patient's lab results. 08/12/24 20:58 08/12/24 20:58 Labs: Lab Results 05/04/25 Range/Units 20:58 WBC 10.9 H (4.5-10.0) K/mm3 RBC 4.34 (4.2-5.4) M/mm3 Hgb 12.0 (12.0-15.0) g/dL Hct 34.8 L (37.0-47.0) % MCV 80.2 (80-100) fl MCH 27.6 (26-34) pg MCHC 34.5 (32-36) g/dl RDW 17.2 H (11.5-14.5) % Plt Count 175 (150-375) k/mm3 MPV 8.8 (7.4-10.4) fl Immature Gran % (Auto) 0.4 (0-0.5) % Neut % (Auto) 78.7 H (45.5-73.1) % Lymph % (Auto) 7.9 L (18.3-44.2) % [place] % (Auto) 9.9 H (2.6-8.5) % Eos % (Auto) 2.6 (0-4.4) % Baso % (Auto) 0.5 (0.2-1.2) % Lymph # (Auto) 0.86 L (0.9-3.2) K/mm3 [place] # (Auto) 1.1 H (0.1-0.6) K/mm3 Eos # (Auto) 0.3 (0-0.3) K/mm3 Baso # (Auto) 0.1 (0.0-0.1) K/mm3 Abs Immat Gran (auto) 0.04 H (0.00-0.031) K/mm3 Absolute Neuts (auto) 8.6 H (1.3-6.7) K/mm3 Absolute Nucleated RBC 0.000 (0.0-0.012) K/mm3 Nucleated RBC % 0.0 (0.0-0.2) % PT 13.1 (11.1-14.7) Seconds INR 1.0 APTT 30.2 (22.3-36.8) Seconds Sodium 137 (137-145) mmol/L Potassium 3.9 (3.4-5.0) mmol/L Chloride 99 (98-107) mmol/L Carbon Dioxide 26 (22-30) mmol/L Anion Gap 12 (4-12) mmol/L BUN 33 H D (7-17) mg/dL Creatinine 4.53 H (0.7-1.0) mg/dL Estim Creat Clear Calc 7 ml/min Estimated GFR 9 L (59 - ) Glucose 89 (65-110) mg/dL Calcium 8.4 (8.4-10.2) mg/dL Total Bilirubin 0.6 (0.2-1.3) mg/dL AST 25 (14-36) U/L ALT 13 (6-35) U/L Alkaline Phosphatase 145 H (38-126) U/L Troponin I 0.045 H* (0.000-0.034) ng/mL Total Protein 8.0 (6.3-8.2) g/dL Albumin 4.3 (3.5-5.1) g/dL Imaging Data Attestation: I personally reviewed and interpreted this imaging study as follows: Radiologist's impression: ITS Impressions Chest X-Ray 08/12/24 20:31 IMPRESSION: Small bilateral pleural effusions versus chronic pleural blunting. Streaky bibasilar opacities likely representing scar/atelectasis. Severe emphysematous change. ECG Data EKG #1: Attestation: I personally reviewed and interpreted this ECG as follows: ECG completion date: 08/12/24 ECG completion time: 19:50 EKG Interpretation: normal rate (82), sinus rhythm, non-specific ST changes and other (short [place]) Discharge Plan Discharge Clinical Impression: Diffuse pain in right upper extremity, ESRD on hemodialysis, Elevated troponin Patient Disposition: Left Against Medical Advice Condition: Guarded Prognosis Instructions: Chest Pain (ED), High Troponin Levels (ED) Additional Instructions: It was recommended that you stay in the hospital for further cardiac workup. You are leaving against medical advice. Follow-up closely with your primary care doctor. You may return at any time to resume evaluation. Patient Language: Persian Prescriptions: No Action aspirin 81 mg Tablet 81 mg PO DAILY isosorbide mononitrate 30 mg tablet extended release 24 hr 30 mg PO DAILY Qty: 30 0RF trazodone 50 mg tablet 50 mg PO HS omeprazole 40 mg capsule,delayed release(DR/EC) 40 mg PO DAILY oxybutynin chloride 5 mg tablet 5 mg PO HS melatonin 3 mg tablet 3 mg PO HS PRN (Reason: Sleep) ergocalciferol (vitamin D2) 1,250 mcg (50,000 unit) capsule 50,000 unit PO BID Brilinta 90 mg tablet 90 mg PO BID Patient Comments: Patient stated that it is not re-fillable. albuterol sulfate 90 mcg/actuation HFA aerosol inhaler 2 puff INHALATION Q6H PRN (Reason: Shortness Of Breath) lisinopril 20 mg tablet 20 mg PO DAILY atorvastatin 80 mg tablet 80 mg PO HS carvedilol 25 mg tablet 25 mg PO BIDWM nifedipine [Procardia XL] 30 mg Tablet Extended Release 24hr 60 mg PO DAILY Qty: 60 0RF Follow-up/Referrals: Teresa,ENEDELIA BatesP [Primary Care Provider] -
[2024-08-12] MEDS: ACETAMINOPHEN 500 MG TABLET 1000 MG PO (20:06)
[2024-08-12] MEDS: CYCLOBENZAPRINE HCL 5 MG TABLET PO (20:06)
[2024-08-12 21:06] LABS: Basophils Absolute Auto 0.1 K/mm3 (0.0-0.1); Basophils Percent Auto 0.5 % (0.2-1.2); Eosinophils Absolute Auto 0.3 K/mm3 (0-0.3); Eosinophils Percent Auto 2.6 % (0-4.4); Hematocrit 34.8 % (37.0-47.0); Immature Granulocyte Absolute 0.04 K/mm3 (0.00-0.031); Immature Granulocyte Percent A 0.4 % (0-0.5); Lymphocytes Absolute Auto 0.86 K/mm3 (0.9-3.2); Lymphocytes Percent Auto 7.9 % (18.3-44.2); Mean Corpuscular HGB Conc 34.5 g/dl (32-36); Mean Corpuscular Hemoglobin 27.6 pg (26-34); Mean Corpuscular Volume 80.2 fl (80-100); Mean Platelet Volume 8.8 fl (7.4-10.4); Monocytes Absolute Auto 1.1 K/mm3 (0.1-0.6); Monocytes Percent Auto 9.9 % (2.6-8.5); Neutrophils Absolute Auto 8.6 K/mm3 (1.3-6.7); Neutrophils Percent Auto 78.7 % (45.5-73.1); Platelet Count Result 175 k/mm3 (150-375); Red Blood Count 4.34 M/mm3 (4.2-5.4); Red Cell Distribution Width 17.2 % (11.5-14.5); White Blood Count 10.9 K/mm3 (4.5-10.0)
[2024-08-12 21:18] LABS: Alanine Aminotransferase 13 U/L (6-35); Albumin Level 4.3 g/dL (3.5-5.1); Alkaline Phosphatase 145 U/L (38-126); Anion Gap 12 mmol/L (4-12); Aspartate Amino Transferase 25 U/L (14-36); Bilirubin,Total 0.6 mg/dL (0.2-1.3); Blood Urea Nitrogen 33 mg/dL (7-17); Calcium 8.4 mg/dL (8.4-10.2); Carbon Dioxide 26 mmol/L (22-30); Chloride 99 mmol/L (98-107); Estimated CRCL calculation 7 ml/min; Estimated Glomerular Filt Rate 9; Glucose 89 mg/dL (65-110); Potassium 3.9 mmol/L (3.4-5.0); Sodium 137 mmol/L (137-145)
[2024-08-12 21:19] LABS: Partial Thromboplastin Time 30.2 Seconds (22.3-36.8); Prothrombin Time 13.1 Seconds (11.1-14.7)
[2024-08-12 21:32] LABS: Troponin I 0.045 ng/mL (0.000-0.034)
[2024-08-12 21:35] VITALS: BP 194/72; PULSE 97; RESP 16; O2SAT 97
[2024-08-12 22:16] VITALS: BP 182/68; PULSE 97; RESP 17; O2SAT 97
== END 2024-08-12 22:17 | disposition left against medical advice (07) ==
PROVIDERS: Emergency Provider Physician Assistant; PCP Nurse Practitioner Family
DX: M79.601 Pain in right arm (principal); R79.89 Other specified abnormal findings of blood chemistry; I13.2 Hypertensive heart and chronic kidney disease with heart failure and with stage 5 chronic kidney disease, or end stage renal disease; N18.6 End stage renal disease; I50.40 Unspecified combined systolic (congestive) and diastolic (congestive) heart failure; Z87.891 Personal history of nicotine dependence
CPT/HCPCS: 36415; 71046; 80053; 84484; 85025; 85610; 85730; 93005; 99284; A9270

== ENCOUNTER 2024-08-17 02:09 | Emergency (ER) | payer MEDICARE, BC, SELFPAY ==
--- OUTSIDE RECORDS SUMMARY | 2024-08-17 02:11 | XMS_ITS | Continuity of Care Document ---
Author Organization [facility] Address [address] [place] [address] [address] [place] [address] Phone Care Team Providers Care Workers Compensation Administrator Name Role Phone Zuniga OD, Maykel Unavailable Unavailable Procedures Procedure Date Eye Exam & Treatment Refraction Advance Directives Directive Yes / No Effective Date File Name No Information Encounters Encounter Description Practice Location Reason(s) For Visit Diagnoses Date Provider Providers Copied on Encounter [facility], [address] [place] [address] [address], [place], [place], [id number], [place] tel:[phone] [facility] No Information 6-200 7 Zuniga OD Maykel. [address] , [address], [place], [address], [place]. tel:[phone] Family History Family Member Type Diagnosis Age At Onset No Information Payers Payer name Insurance type Covered green party ID Authoriza tion(s) [employer] [place] FEP BL [id number] Social History Type Description Quantity Date Captured [...]
--- OUTSIDE RECORDS SUMMARY | 2024-08-17 02:11 | XMS_ITS | Clinical Summary ---
Author Organization [facility] [address] Address [address] [place] [address] Care Team Providers Care Manager Cardiac Cath Name Role Phone Louisa Anderson MD Unavailable Juan Luis Fritz MD Unavailable [phone] Joshua Motley MD Unavailable [phone] Addie Moore NP Primary Care Provider [phone] Wily Tolbert RN Unavailable [phone] Allergies Active Allergy Reactions Criticality Noted Date [...] (PRINIVIL,ZESTR IL) 20 mg tabletIndicatio ns:started by helper driver Dr. Motley - 06/01. off entresto Take 1 tablet (20 mg total) by mouth daily 90 tablet 3 06/02/19 24 Active Additional Information Patient taking differently: 40 mgoral Daily, Indications: started by helper driver Dr. Motley - 06/01. off entresto, Reported [...] mg, Daily prior to dialysis, Reported on 08/15/2024 carvediloL (COREG) 25 mg tablet Take 1 tablet (25 mg total) by mouth 2 (two) times a day with meals 11/11/19 24 Active inhalational spacing device spacer Use with albuterol inhaler every 4 hours as needed for shortness of breath 1 each 11/16/19 24 Active melatonin tablet TAKE 1 TABLET BY MOUTH [...] Active Problems Problem Noted Date Diagnosed Date Hospital discharge follow-up 08/15/2024 Assessment & Plan (08/15/2024 9:29 AM CDT): Doing well today. No further symptoms. We're calling [place] for ER records. No medication changes. Follow up as scheduled. Medicare annual wellness visit, subsequent 05/02 Assessment & Plan (05/02/2024 9:21 AM AIR VALVE MECHANIC): -Recommended: Healthy diet. Avoiding junk food/fast food. [...] needed Assessment & Plan (05/02/2023 10:59 AM AIR VALVE MECHANIC): Patient Counseling: --Nutrition: Stressed importance of moderation [...] 08/2021 Assessment & Plan (05/02/2024 9:29 AM AIR VALVE MECHANIC): Has albuterol inhaler to use prn. She [...] this month where she ended up in [facility] for 2 days with a COPD exacerbation. She was treated with IV Solu-Medrol and nebulizers. She was given prednisone and Levaquin upon discharge but states that she read side effects and threw away 1 of the prescriptions. I think it was the prednisone but I am not sure. Assessment & Plan (04/14/2023 8:31 PM AIR VALVE MECHANIC): Not currently on any medications. Denies any difficulty with shortness of breath. Not currently a smoker. ESRD on dialysis 02/18/2022 Assessment & Plan (05/02/2024 9:26 AM AIR VALVE MECHANIC): Stable. Continues on dialysis 3 times weekly. Doing well today. States she has some bad days, but doing well Assessment & Plan (10/31/2023 10:01 AM CDT): Stable. Continues on dialysis 3 times weekly. I encouraged her to talk to her helper driver about the increased swelling in her ankles as well. Assessment & Plan (05/02/2023 11:02 AM AIR VALVE MECHANIC): Continues on dialysis 3 times week. Patient is considering moving to [place]. She is aware she has to set up health care before moving. She is considering moving into assisted living up there. She is currently on a waiting list Assessment & Plan (04/14/2023 8:30 PM AIR VALVE MECHANIC): Currently on dialysis. Dr. Motley. 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 Stable. Blood pressure within [...] October Assessment & Plan (06/05/2023 6:05 PM AIR VALVE MECHANIC): Continue all medications. Start lisinopril 20 mg once daily Assessment & Plan (05/02/2023 11:04 AM AIR VALVE MECHANIC): Blood pressure is improved today and is not hypotensive. Will continue current medication and continue to monitor. Assessment & Plan (04/14/2023 8:25 PM AIR VALVE MECHANIC): Apparently long history of hypertension. ON multiple antihypertensive medications and now on dialysis. However, she is also on entresto. Blood pressure is low today. Asymptomatic. Will try discontinuing nifedipine for the hypotension and keep her on all other medication, which we spend a considerable amount of time on reconciling and discussing. I asked her to also run this change by her helper driver. Will be referring to cardiology as well Chronic combined systolic and diastolic heart fa ilure 10/15/2020 Assessment & Plan (05/02/2024 9:28 AM AIR VALVE MECHANIC): Improved. No signs of acute heart failure. Last echo 04/2023 with EF 72% Assessment & Plan (11/16/2023 8:38 PM CDT): I think she had some fluid overload which may have improved with dialysis, and thus her shortness of breath improved. Her helper driver also increased her coreg to 25mg bid. [...] for evaluation. I would place referral to [facility] back in April but did not see any follow-up or scheduling for that referral Assessment & Plan (06/05/2023 6:05 PM AIR VALVE MECHANIC): Improved. Discontinue Entresto. Start lisinopril 20 mg once daily. We discussed this with her in detail and why we are starting lisinopril and why it is important to stay on all of her other medications. Assessment & Plan (04/14/2023 8:27 PM AIR VALVE MECHANIC): Reviewed last heart cath and last echo [...] 05/02/2024 Assessment & Plan (03/20/2024 7:31 AM AIR VALVE MECHANIC): Medication review done. Patient discharge instructions from [place] show her still on atorvastatin 80mg and [...] Motley or his office , nephrology at [facility] to discuss med rec. Headache 04/27/2023 05/02/2024 Moderate malnutrition 09/03/20212023 Leg edema 05/05/2021 05/02/2024 Recurrent pleural effusion on right 02/11/2021 04/14/2023 Ischemic cardiomyopathy 10/15/202005/13 Assessment & Plan (05/02/2023 11:05 AM AIR VALVE MECHANIC): History of ischeic cardiomyopathy. We had ordered a repeat echocardiography at last office visit. She now has it scheduled at [place] Cardiovascular stress test abnormal 10/15/2020 05/02/2024 Chronic kidney disease 10/15/202004/14 Encounters Date Type Department Care Team Description 08/15/2024 9:00 AM CDT Office Visit [facility] at [address] [phone] Addie Moore NP Hospital discharge follow-up (Primary Dx) 08/13/2024 Telephone [facility] at [address] [phone] Addie Moore NP Appointment Request 08/01/2024 Results Follow-Up [facility] at [address] [phone] Addie Moore NP 07/31/2024 Results Follow-Up [facility] at [address] [phone] Addie Moore NP 07/30/2024 4:20 PM CDT Ancillary Procedure [facility] Imaging at [address] [phone] Acute cough 07/30/2024 4:03 PM CDT - 07/30/2024 11:59 PM CDT Hospital Encounter [address] [address] Chronic combined systolic and diastolic heart failure (HCC); Acute cough Discharge Disposition: Discharge to home or self care 07/30/2024 4:00 PM CDT Lab [facility] Outpatient Lab at [address] [phone] 07/30/2024 3:30 PM CDT Office Visit [facility] at [address] [phone] Addie Moore NP ESRD on dialysis (HCC) (Primary Dx); Hypertension due to end stage renal disease on dialysis (HCC); Chronic combined systolic and diastolic heart failure (HCC); Acute cough from Last 3 Months Immunizations Immunization Administration Dates Next Due COVID-19 MRNA (MODERNA) .5 M L (50 MCG) VACCINE (12 YEARS AND UP) 01/05/2023 Covaxin Sars-cov-2 Vaccination 01/20/2021,2020,06/18/2020 Influenza, Quadrivalent, Hig h Dose, Preservative Free, Intrr 01/05/2023,12/23/2021 Influenza, Quadrivalent, Spl it, Intramuscular 01/13/2021 Influenza, Quadrivalent, Spl it, Preservative Free, Intramuscular 01/13/2021 Influenza, Trivalent, High D ose, Split, Preservative Free, Intramuscular 12/18/2023 Influenza, Unspecified 02/07/2024,2022,12/23/2021,11/14,11/07/2012 PPD TEST 11/29/2023,11/16/2022 Pfizer SARS-CoV-2 Monovalent Vaccination (12+ Yrs) PURPLE [...] drink = 0.6 oz pur e alcohol) [facility] Utilities Answer Date Recorded In the past 12 months has e Actions, gas, oil, or water [employer] threatened to shut off services in your [...] often do you attend chur ch or zoroastrianism services? Never 04/20/2024 Do you belong to any clubs o r organizations such as evangelical groups, unions, fraternal or athletic groups, or [...] points, staff should administer the PHQ-9) 0 08/15/2024 Hunger Vital Sign Answer Date Recorded Within [...] any time in the past 12 m ont, were you homeless or living in a [place] health care facility (including now)? No 04/20/2024 Personal Safety Answer Date Recorded Getting School Help Needed Denies 04/13 Comments No Sex and Gender Information Value Date Recorded Sex Assigned at Not on file Legal Sex Female 8:21 AM CDT Gender Identity Not on file Sexual Orientation Not on file Obstetrics History Last Filed Vital Signs Vital Sign Reading Time Taken Comments Blood Pressure 140/76 08/15/2024 9:08 AM CDT Pulse 97 08/15/2024 9:08 AM CDT Temperature 36.7 C (98 F) 08/15/2024 9:08 AM CDT Respiratory Rate 18 08/15/2024 9:08 AM CDT Oxygen Saturation 91% 08/15/2024 9:08 AM CDT Inhaled Oxygen Concentration - - Weight 42.8 kg (94 lb 4.8 oz) 08/15/2024 9:08 AM CDT Height 157.5 cm (5' 2 ) 08/15/2024 9:08 AM CDT Body Mass Index 17.25 08/15/2024 9:08 AM CDT Plan of Treatment Health Maintenance Due Date Last Done Comments DTaP/Tdap/Td Vaccine (1 - Tdap) 01/01/1957 Zoster Vaccine (1 of 2) 1994 Covid-19 Vaccine ( season) 2024 12/18/2023, 01/05/2023, 01/05/2023, Additional history exists Fall Risk Assessment 05/02/2025 05/02/2024, 11/16/2023, 10/31/2023, Additional history exists Osteoporosis Screening-Bone Density Scan 05/02/2025 Postponed from 1944 (Patient declined, but will receive in the future) Well Visit 65+ 05/02/2025 05/02/2024, 04/27/2023 Depression Screening 08/15/2025 08/15/2024, 05/02/2024, 11/16/2023, Additional history exists Hepatitis C Screening Completed 08/29/2021 Hepatitis B Screening Completed 09/04/2021 Influenza Vaccine Completed 02/07/2024, , 01/05/2023, Additional history exists Pneumococcal vaccine 65+ Completed 05/02/2024 Medical Devices Implanted Type Area Motion Picture Commentator Device Identifier Shelf Expiration Date Model / Serial / Lot Wl [employer] Henderson Intering 4-7mm 45cm 38cm Radial Support Stretch Line [id number] - [id number] - [id number] Implanted:Qty: 1 on 03/03/2022 by David Drummond MD at [facility] Graft Left: Arm W[employer] [id number] 05/11/2026 [id number] / [id number] / Description:AV fistula graft [employer] Synergy Xd Monorail 3mm 12mm 144cm Delivery System 1 Access Port [id number] - [id number] Implanted:Qty: 1 on 09/02/2021 by Claudio Nelson MD at [employer] [id number] / / [employer] Synergy Xd 3.5mm 48mm System Coronary Stent Everol[employer] [id number] - [id number] Implanted:Qty: 1 on 09/02/2021 by Claudio Nelson MD at [employer] [id number] / / Description:Mid RCA [employer] Synergy Xd Monorail 3mm 38mm 144cm Delivery System 1 Access Port [id number] - [id number] Implanted:Qty: 1 on 09/02/2021 by Claudio Nelson MD at [employer] [id number] / / Description:Distal RCA betwe en stents [employer] Synergy Xd Monorail 3.5mm 12mm 144cm Delivery System 1 Access [id number] - [id number] Implanted:Qty: 1 on 09/02/2021 by Claudio Nelson MD at [employer] [id number] / / [employer] Dur[employer] Vascpak Safesheath D-Pro 15.5fr 24cm Kit Catheter [id number] - [id number] Implanted:Qty: 1 on 09/04/2021 at [employer] 09/09/2023 [id number] / / [id number] Procedures Procedure Name Priority Date/Time Associated Diagnosis [...] 8:08 PM - Electronically signed by Nico Leyva M.D. MJ T: Report ID: [id number] Reading Location: [place] [address] Procedure Note Nico Leyva MD - 07/31/2024 [...] 8:08 PM - Electronically signed by Nico Leyva M.D. MJ T: Report ID: [id number] Reading Location: [place] [address] Addie Moore LICENSED MARRIAGE AND FAMILY THERAPIST IMG XR PROCEDURES Final Resul t * Differential, auto (07/30/2024 4:03 PM CDT) Neutrophil abs 5.11 1.50 - 6.50 K/cumm Imm gran abs 0.03 0.00 - 0.10 K/cumm [facility] Lymphocyte abs 0.92 0.80 - 3.30 K/cumm [facility] Monocyte abs 0.69 0.20 - 0.80 K/cumm [facility] Eosinophil abs 0.43 0.00 - 0.50 K/cumm [facility] Basophil abs 0.06 0.00 - 0.10 K/cumm [facility] Neutrophil pct 70.7 % [facility] Comment: Interpretive Data Percent cell count reference ranges are not reported, since discordance with absolute values may lead to misinterpretation of CBC data. Current Interpretive Data was last revised on 2017. Imm gran pct 0.4 % [facility] Comment: Interpretive Data Percent cell count reference ranges are not reported, since discordance with absolute values may lead to misinterpretation of CBC data. Current Interpretive Data was last revised on 2017. Lymphocyte pct 12.7 % [facility] Comment: Interpretive Data Percent cell count reference ranges are not reported, since discordance with absolute values may lead to misinterpretation of CBC data. Current Interpretive Data was last revised on 2017. Monocyte pct 9.5 % [facility] Comment: Interpretive Data Percent cell count reference ranges are not reported, since discordance with absolute values may lead to misinterpretation of CBC data. Current Interpretive Data was last revised on 2017. Eosinophil pct 5.9 % [facility] Comment: Interpretive Data Percent cell count reference ranges are not reported, since discordance with absolute values may lead to misinterpretation of CBC data. Current Interpretive Data was last revised on 2017. Basophil pct 0.8 % [facility] Comment: Interpretive Data Percent cell count reference ranges are not reported, since discordance with absolute values may lead to misinterpretation of CBC data. Current Interpretive Data was last revised on 2017. Blood 07/30/2024 4:03 PM CDT 07/30/2024 9:13 PM CDT us Addie Moore NP LAB BLOOD ORDERABLES Final Re sult [facility] [address] Department [place] [address] * (ABNORMAL) Pro B-type natriuretic peptide (07/30/2024 [...] ORDERABLES Final Re sult Performing Organization Address [facility] Co de Phone Number [facility] [address] [place] [address] * (ABNORMAL) CBC with auto differential (07/30/2024 4:03 PM CDT) WBC 7.24 3.80 - 9.90 K/cumm Hgb 13.9 11.9 - 15.5 g/dL [facility] Hct 40.6 35.6 - 45.5 % [facility] Plt 196 150 - 400 K/cumm [facility] MPV 9.3 9.1 - 12.3 fL [facility] RBC 5.01 3.90 - 5.20 M/cumm [facility] MCV 81.0(L) 81.3 - 96.4 fL [facility] MCH 27.7 27.1 - 33.3 pg [facility] MCHC 34.2 32.3 - 35.7 g/dL [facility] RDW CV 17.5(H) 11.1 - 14.9 % [facility] RDW SD 51.3(H) 35.7 - 48.1 fL [facility] NRBC abs 0.00 0.00 - 0.01 K/cumm [facility] Blood 07/30/2024 4:03 PM CDT 07/30/2024 9:13 PM CDT Addie Moore NP LAB BLOOD ORDERABLES Final Re sult Performing Organization Address [facility]/ZIP Co de Phone Number [facility] [address] [place] [address] * Hepatitis panel, acute (08/29/2021 2:30 PM CDT) Hep A IgM Nonreactive Nonreactive [facility] Comment: Interpretive Data: If Hep A IgM Ab is reported as Equivocal, a new sample should be drawn in two weeks for testing. Current interpretive data was last revised on 19. Hep B core IgM Nonreactive Nonreactive [facility] Comment: Interpretive Data If HepB Core IgM Ab is reported as Equivocal, a new sample should be drawn in two weeks for testing. Current interpretive data was last revised on 19. Hep C Ab Nonreactive Nonreactive [facility] Comment: Interpretive Data Nonreactive: Antibodies to [...] last revised on 2019. HepBsAg Nonreactive Nonreactive [facility] Blood 08/29/2021 2:30 PM CDT 08/29/2021 2:36 PM CDT Juan Luis Firtz MD LAB MICROBIOLOGY - GENERAL ORD ERABLES Final Result [facility] [address] Department [place] [address] from Last 3 Months or Most Recently Relevant to Health Maintenance Insurance [facility] FEDERAL MEDICARE MEDICARE [facility] MEDICARE [facility] FEDERAL MEDICARE Advance Directives For more information, please contact: [phone] * Full Code (Latest Code Status on File) Date Activated Date Inactivated Comments 05/19/2022 9:36 AM 05/20/2022 5:19 AM * Full Code Date Activated Date Inactivated Comments 08/25/2021 9:12 PM 09/09/2021 6:36 PM Healthcare Agents on File Name Relationship Healthcare Agent [facility] Communication Al Tiffany [facility] Health Care Agent Care Teams Manager Cardiac Cath Relationship Specialty Start Date End Date Addie Moore NP [address] [place] [address] PCP - General Family Medicine 04/14/23 Louisa Anderson MD [address] [place] [address] Consulting Physician Cardiovascular Disease 09/09/21 Juan Luis Fritz MD [address] [place] [address] Consulting Physician Nephrology 09/09/21 Joshua Motley MD [address] [place] [address] Referring Physician Nephrology 02/15/22 Wily Tolbert RN [address] [place] [address] [address] [place] [address] [employer] 04/30/24
--- OUTSIDE RECORDS SUMMARY | 2024-08-17 02:11 | XMS_ITS | Referral Summary ---
Author Organization [facility] [place] [address] Address [address] [place] [address] Care Team Providers Care Producer Arborist Manager Name Role Phone Louisa Anderson MD Unavailable Juan Luis Fritz MD Unavailable [phone] Joshua Motley MD Unavailable [phone] Addie Moore NP Primary Care Provider Wily Tolbert RN Unavailable [phone] Encounters Date Type Department Care Team Description 08/15/2024 9:00 AM CDT Office Visit [facility] Primary Care at [address] [phone] Addie Moore NP Hospital discharge follow-up (Primary Dx) 08/13/2024 Telephone [facility] Primary Care at [address] [address] Addie Moore NP Appointment Request 08/01/2024 Results Follow-Up [facility] Primary Care at [address] [address] Addie Moore NP 07/31/2024 Results Follow-Up [facility] Primary Care at [address] [address] Addie Moore NP 07/30/2024 4:03 PM CDT - 07/30/2024 11:59 PM [place] [address] Chronic combined systolic and diastolic heart failure (HCC); Acute cough Discharge Disposition: Discharge to home or self care 07/30/2024 4:20 PM CDT Ancillary Procedure [facility] Imaging at [address] [phone] Acute cough 07/30/2024 4:00 PM CDT Lab [facility] Outpatient Lab at [address] [phone] 07/30/2024 3:30 PM CDT Office Visit [facility] Primary Care at [address] [phone] Addie Moore NP ESRD on dialysis ([facility]) (Primary Dx); Hypertension due to end stage [...] (PRINIVIL,ZESTR [place]) 20 mg tabletIndicatio ns:started by bend sorter Dr. Motley 06/01. off entresto Take 1 tablet (20 mg total) by mouth daily 90 tablet 3 06/02/19 24 Active Additional Information Patient taking differently: 40 mgoral Daily, Indications: started by bend sorter Dr. Tiesha Herron 06/01. off entresto, Reported on 05/02/2024 ticagrelor [...] well today. No further symptoms. We're calling [facility] for ER records. No medication changes. Follow up as scheduled. Medicare annual wellness visit, subsequent 05/02 Assessment & Plan (05/02/2024 9:21 AM DEPARTMENTAL BUYER): -Recommended: Healthy diet. Avoiding junk food/fast food. [...] needed Assessment & Plan (05/02/2023 10:59 AM DEPARTMENTAL BUYER): Patient Counseling: --Nutrition: Stressed importance of moderation [...] 08/2021 Assessment & Plan (05/02/2024 9:29 AM DEPARTMENTAL BUYER): Has albuterol inhaler to use prn. She [...] this month where she ended up in [facility] for 2 days with a COPD exacerbation. She was treated with IV Solu-Medrol and nebulizers. She was given prednisone and Levaquin upon discharge but states that she read side effects and threw away 1 of the prescriptions. I think it was the prednisone but I am not sure. Assessment & Plan (04/14/2023 8:31 PM DEPARTMENTAL BUYER): Not currently on any medications. Denies any difficulty with shortness of breath. Not currently a smoker. ESRD on dialysis 02/18/2022 Assessment & Plan (05/02/2024 9:26 AM DEPARTMENTAL BUYER): Stable. Continues on dialysis 3 times weekly. Doing well today. States she has some bad days, but doing well Assessment & Plan (10/31/2023 10:01 AM CDT): Stable. Continues on dialysis 3 times weekly. I encouraged her to talk to her bend sorter about the increased swelling in her ankles as well. Assessment & Plan (05/02/2023 11:02 AM DEPARTMENTAL BUYER): Continues on dialysis 3 times week. Patient is considering moving to [place]. She is aware she has to set up health care before moving. She is considering moving into assisted living up there. She is currently on a waiting list Assessment & Plan (04/14/2023 8:30 PM DEPARTMENTAL BUYER): Currently on dialysis. Dr. Motley. 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 Stable. Blood pressure within [...] October Assessment & Plan (06/05/2023 6:05 PM DEPARTMENTAL BUYER): Continue all medications. Start lisinopril 20 mg once daily Assessment & Plan (05/02/2023 11:04 AM DEPARTMENTAL BUYER): Blood pressure is improved today and is not hypotensive. Will continue current medication and continue to monitor. Assessment & Plan (04/14/2023 8:25 PM DEPARTMENTAL BUYER): Apparently long history of hypertension. ON multiple antihypertensive medications and now on dialysis. However, she is also on entresto. Blood pressure is low today. Asymptomatic. Will try discontinuing nifedipine for the hypotension and keep her on all other medication, which we spend a considerable amount of time on reconciling and discussing. I asked her to also run this change by her bend sorter. Will be referring to cardiology as well Chronic combined systolic and diastolic heart fa ilure 10/15/2020 Assessment & Plan (05/02/2024 9:28 AM DEPARTMENTAL BUYER): Improved. No signs of acute heart failure. Last echo 04/2023 with EF 72% Assessment & Plan (11/16/2023 8:38 PM CDT): I think she had some fluid overload which may have improved with dialysis, and thus her shortness of breath improved. Her bend sorter also increased her coreg to 25mg bid. [...] for evaluation. I would place referral to [facility] back in April but did not see any follow-up or scheduling for that referral Assessment & Plan (06/05/2023 6:05 PM DEPARTMENTAL BUYER): Improved. Discontinue Entresto. Start lisinopril 20 mg once daily. We discussed this with her in detail and why we are starting lisinopril and why it is important to stay on all of her other medications. Assessment & Plan (04/14/2023 8:27 PM DEPARTMENTAL BUYER): Reviewed last heart cath and last echo [...] 05/02/2024 Assessment & Plan (03/20/2024 7:31 AM DEPARTMENTAL BUYER): Medication review done. Patient discharge instructions from [facility] show her still on atorvastatin 80mg and [...] Motley or his office , nephrology at [facility] to discuss med rec. Headache 04/27/2023 05/02/2024 Moderate malnutrition 09/03/20212023 Leg edema 05/05/2021 05/02/2024 Recurrent pleural effusion on right 02/11/2021 04/14/2023 Ischemic cardiomyopathy 10/15/2020 02/05/2023 Assessment & Plan (05/02/2023 11:05 AM DEPARTMENTAL BUYER): History of ischeic cardiomyopathy. We had ordered a repeat echocardiography at last office visit. She now has it scheduled at [facility] Cardiovascular stress test abnormal 10/15/2020 05/02/2024 Chronic kidney disease 10/15/202004/14 Immunizations Immunization Administration Dates Next Due COVID-19 [...] drink = 0.6 oz pur e alcohol) [facility] [email or web address] Answer Date Recorded In the past 12 months has e Sim[employer], gas, oil, or water [employer] threatened to shut off services in your [...] often do you attend chur ch or mandaeism services? Never 04/20/2024 Do you belong to any clubs o r organizations such as denominational groups, unions, fraternal or athletic groups, or [...] any time in the past 12 m [facility], were you homeless or living in a fci (including now)? No 04/20/2024 Personal Safety Answer [...] 08/15/2024 9:08 AM CDT Plan of Treatment Not on file Medical Devices Implanted Type Area Oil Bay Technician Device Identifier Shelf Expiration Date Model / Serial / Lot Wl [employer] [place] Intering 4-7mm 45cm 38cm Radial Support Stretch Line [id number] - [id number] - [id number] Implanted:Qty: 1 on 03/03/2022 by David Drummond MD at [facility] Graft Left: Arm Wl [employer] [id number] 05/11/2026 [id number] / [id number] / Description:AV fistula graft [employer] Indra Synergy Xd Monorail 3mm 12mm 144cm Delivery System 1 Access Port [id number] - [id number] Implanted:Qty: 1 on 09/02/2021 by Claudio eNlson MD at [facility] Stent [employer] Idnra [id number] / / [employer] Indra Synergy Xd 3.5mm 48mm System Coronary Stent Everolimus [id number] - [id number] Implanted:Qty: 1 on 09/02/2021 by Claudio Nelson MD at [facility] Stent [employer] Indra [id number] / / Description:Mid RCA [employer] Indra Synergy Xd Monorail 3mm 38mm 144cm Delivery System 1 Access Port [id number] - [id number] Implanted:Qty: 1 on 09/02/2021 by Claudio Nelson MD at [facility] Stent [employer] Indra [id number] / / Description:Distal RCA betwe en stents [employer] Indra Synergy Xd Monorail 3.5mm 12mm 144cm Delivery System 1 Access [id number] - [id number] Implanted:Qty: 1 on 09/02/2021 by Claudio Nelson MD at [facility] Stent [employer] Indra [id number] / / Angio Dynamics Duramax Vascpak Safesheath D-Pro 15.5fr 24cm Kit Catheter [id number] - [id number] Implanted:Qty: 1 on 09/04/2021 at [facility] Ang[employer] Dynamics 09/09/2023 [id number] / / [id number] Procedures Procedure Name Priority Date/Time Associated Diagnosis [...] Nico Leyva M.D. MJ T: Report ID: [id number] Reading Location: [id number] Procedure Note Nico Leyva MD - 07/31/2024 [...] Nico Leyva M.D. MJ T: Report ID: [id number] Reading Location: [place] [address] Addie Moore NP IMG XR PROCEDURES Final [...] abs 0.06 0.00 - 0.10 K/cumm [facility] Neutrophil pct 70.7 % [facility] Comment: Interpretive [...] revised on 2017. Lymphocyte pct 12.7 % [facility] Comment: Interpretive Data Percent cell count reference ranges are not reported, since discordance with absolute values may lead to misinterpretation of CBC data. Current Interpretive Data was last revised on 2017. Monocyte pct 9.5 % [facility] Comment: Interpretive Data Percent cell count reference ranges are not reported, since discordance with absolute values may lead to misinterpretation of CBC data. Current Interpretive Data was last revised on 2017. Eosinophil pct 5.9 % [facility] Comment: Interpretive Data Percent cell count reference ranges are not reported, since discordance with absolute values may lead to misinterpretation of CBC data. Current Interpretive Data was last revised on 2017. Basophil pct 0.8 % [facility] Comment: Interpretive Data Percent cell count reference ranges are not reported, since discordance with absolute values may lead to misinterpretation of CBC data. Current Interpretive Data was last revised on 2017. Blood 07/30/2024 4:03 PM CDT 07/30/2024 9:13 PM CDT Addie Moore NP LAB BLOOD ORDERABLES Final Re sult [facility] [address] Department of Laboratories [place] [id number] * (ABNORMAL) Pro B-type natriuretic peptide (07/30/2024 [...] et.al. Eur Heart J. 2006:27:330-337. 2. Daisha COLEMAN, Jami HARRISON. J. AM Darnell Cardiol: Cardiovasc Imag. 2009;2: 216- 225. Interpretive Data Last Revised Date: 2017. Blood 07/30/2024 4:03 PM CDT 07/30/2024 9:13 PM CDT Addie Moore NP LAB BLOOD ORDERABLES Final Re sult [facility] [address] [address] Department [place] [address] * (ABNORMAL) CBC with auto differential (07/30/2024 4:03 PM CDT) WBC 7.24 3.80 - 9.90 K/cumm Hgb 13.9 11.9 - 15.5 g/dL [facility] CH Hct 40.6 35.6 - 45.5 % [facility] Plt 196 150 - 400 K/cumm [facility] MPV 9.3 9.1 - 12.3 fL [facility] RBC 5.01 3.90 - 5.20 M/cumm [facility] CH MCV 81.0(L) 81.3 - 96.4 fL [facility] CH MCH 27.7 27.1 - 33.3 pg [facility] MCHC 34.2 32.3 - 35.7 g/dL [facility] CH RDW CV 17.5(H) 11.1 - 14.9 % [facility] CH RDW SD 51.3(H) 35.7 - 48.1 fL [facility] CH NRBC abs 0.00 0.00 - 0.01 K/cumm [facility] CH Blood 07/30/2024 4:03 PM CDT 07/30/2024 9:13 PM CDT Addie Moore NP LAB BLOOD ORDERABLES Final Re sult Performing Organization Address [facility]/ZIP Co de Phone Number [facility] [place] [address] Department [place] [employer] [address] * Hepatitis panel, acute (08/29/2021 2:30 PM CDT) Hep A IgM Nonreactive Nonreactive [facility] Comment: Interpretive Data: If Hep A IgM Ab is reported as Equivocal, a new sample should be drawn in two weeks for testing. Current interpretive data was last revised on 19. Hep B core IgM Nonreactive Nonreactive [facility] Comment: Interpretive Data If HepB Core IgM Ab is reported as Equivocal, a new sample should be drawn in two weeks for testing. Current interpretive data was last revised on 19. Hep C Ab Nonreactive Nonreactive [facility] Comment: Interpretive Data Nonreactive: Antibodies to [...] last revised on 2019. HepBsAg Nonreactive Nonreactive [facility] Blood 08/29/2021 2:30 PM CDT 08/29/2021 2:36 PM CDT Juan Luis Fritz MD LAB MICROBIOLOGY - GENERAL ORD ERABLES Final Result Performing Organization Address City/[facility]/ZIP Co de Phone Number [facility] [place] [address] Department [place] [place] [address] from Last 3 Months or Most Recently Relevant to Health Maintenance Insurance [facility] FEDERAL MEDICARE MEDICARE [facility] FEDERAL MEDICARE [facility] FEDERAL MEDICARE Advance Directives For more information, please contact: [phone] * Full Code (Latest Code Status on File) Date Activated Date Inactivated Comments 05/19/2022 9:36 AM 05/20/2022 5:19 AM * Full Code Date Activated Date Inactivated Comments 08/25/2021 9:12 PM 09/09/2021 6:36 PM Healthcare Agents on File Name Relationship Healthcare Agent Frank ortiz Communication Al Tiffany Mckeon Health Care Agent Care Teams Producer Arborist Manager Relationship Specialty Start Date End Date Addie Moore NP [address] [place] [address] PCP - General Family Medicine 04/14/23 Louisa Anderson MD [address] [place] [address] Consulting Physician Cardiovascular Disease 09/09/21 Juan Luis Fritz MD [address] [place] [address] Consulting Physician Nephrology 09/09/21 Joshua Motley MD [address] [place] [address] Referring Physician Nephrology 02/15/22 Wily Tolbert RN [address] [place] [address] [address]ANGE [address] [place] [id number] Fruit Coordinator 04/30/24
--- OUTSIDE RECORDS SUMMARY | 2024-08-17 02:11 | XMS_ITS | CONTINUITY OF CARE DOCUMENT ---
Author Name jeremy luna Address Unknown Organization [facility] Address [address] [place] [address] Phone [phone] Care Team Providers Care Residential Roofer Helper Name Role Phone Justin CABRERA, Louisa Menendez Unavailable [phone] DALJIT CABRERA, RUNDA Unavailable DALJIT CABRERA, RUNDA Unavailable [phone] PROBLEMS Condition Status Date Provider Notes Cardiology [...] In-person encounter Office Visit Louisa Anderson MD [facility] CAD - In-person encounter Office Visit Louisa Anderson MD [facility] End stage renal disease -on dialysis - In-person encounter Office Visit Louisa Anderson MD [facility] Cardiology examinationCHF - systolicHTN essentialLeg edemaSARS-associated [...] TABLET BY MOUTH EVERY DAY AT NIGHT [facility] amlodipine 10 mg tablet active TAKE 1 TABLET BY MOUTH EVERY DAY Sheryl Louis pantoprazole 40 mg tablet,delayed release (DR/EC) active TAKE 1 TABLET BY MOUTH EVERY DAY Claudio Nelson MD Brilinta 90 mg tablet completed Take 1 tablet by mouth twice a day - [facility] Plavix 75 mg tablet completed TAKE 1 [...] Nimo olivarez cigarette use yes Nimo Velasco [facility] smoking status Former smoker Nimo bell [employer] Payer name Policy type / Coverage type [place] red republican ID [facility] [id number] ADVANCE DIRECTIVES Name Date DISCUSSED - NO DECISION MADE TREATMENT PLAN Date Name Performer [id number],C, B P today: 154/61 P rior BP: [...] mouth twice a day Louisa Anderson MD [id number],S,U nderwent complex PCI or RCA with Omar Sargent at [facility]. O n aspirin brillinta. Louisa Anderson MD [id number],S,E lectrolytes from dialysis report look good. K 3.5. Sees Dr. Tiesha Anderson MD [id number],C,C ONCLUSIONS: 1 . Normal left ventricular systolic [...] is mild pulmonic regurgitation. Louisa Anderson MD [id number],C, L FEV was 50% on echo on 08/29/21 at [facility]. Will recheck echo since revascularzation H er updated medication list for this problem includes: B rilllinta 90 BID November 20, 2021 E cho most recent shows EF is up to 55%. Louisa Anderson MD [id number],C, S odium restriction and dialysis Louisa Anderson MD [id number],C, H as had multiple admissions has abnormal EKG consistent with prior anterior wall [place] will arrange for lexiscan stress R EMAINS ON DAPT WITH ASA BRILINTA FOR THE ALYSE STENTS WHICH WERE PLACED IN THE RCA 09/02/21 Louisa Anderson MD [id number],C,switched to a Dr Motley for HD Louisa Anderson MD [id number],C, Continue BP med rx currently on entresto, hydralyzine. W ill stop Losartan since she is currently on Entresto BP today: 101/48 P rior BP: 156/77 (05/05/2021) J une 2021 t olerating ientresto and has done well with her BP will contine Louisa Andersno MD [id number],S,See JOVANY Fritz on October 09 Louisa Anderson MD [id number],S, Continue BP med rx currently on entresto, hydralyzine. W ill stop Losartan since she is currently on Entresto BP today: 101/48 P rior BP: 156/77 (05/05/2021) Louisa Anderson MD [id number],S,L FEV was 50% on echo on 08/29/21 at [facility]. Will recheck echo since revascularzation H er [...] mouth twice a day Louisa Anderson MD [id number],C,H as had multiple admissions has abnormal EKG consistent with prior anterior wall [place] will arrange for lexiscan stress Louisa Anderson MD [id number],S,Sodium restri ction and diuretics Louisa Anderson MD [id number],C,Vaccinated Sa oscar Anderson MD [id number],C,E F 24% according to her son has [...] lifevest in the meantime. Louisa Anderson MD [id number],C, B P today: 156/77 C ontinue BP [...] PCI or RCA with Omar Sargent at [facility]. O n aspirin brillinta. Louisa Anderson MD [...] abnormal EKG consistent with prior anterior wall [place] will arrange for lexiscan stress R EMAINS [...] 101/48 P rior BP: 156/77 (05/05/2021) J [facility] 2021 t olerating ientresto and has done [...] abnormal EKG consistent with prior anterior wall [place] will arrange for lexiscan stress Louisa Anderson [...]
--- OUTSIDE RECORDS SUMMARY | 2024-08-17 02:11 | XMS_ITS | Encounter Summary ---
Author Organization [facility] Address [address] [place] [address] Care Team Providers Care Phone Engineer Name Role Phone Louisa Anderson MD Unavailable [phone] Juan Luis Fritz MD Unavailable [phone] Joshua Motley MD Unavailable [phone] Addie Moore NP Primary Care Provider [phone] Wily Tolbert RN Unavailable [phone] Encounter Details Date Type Department Care Team (Late st Contact Info) Description 07/31/2024 Results Follow-Up [facility] Primary Care at [address] [address] Addie Moore NP [address] [place] [address] [address] [place] [address] Social History Tobacco Use Types Packs/Day Years Used Date Smoking Tobacco: Former Cigarettes Q uit: 10/01/2020 Smokeless Tobacco: Never Alcohol Use Standard Drinks/Week Comments Yes 0 (1 standard drink = 0.6 oz pur e alcohol) [facility] Utilities Answer Date Recorded In the [...] often do you attend chur ch or presybeterian services? Never 04/20/2024 Do you belong to any clubs o r organizations such as congregation groups, unions, fraternal or athletic groups, or [...] any time in the past 12 m [facility], were you homeless or living in a detention (including now)? No 04/20/2024 Personal Safety Answer [...] on filedocumented in this encounter Care Teams Phone Engineer Relationship Specialty Start Date End Date Addie Moore NP [address] [place] [address] PCP - General Family Medicine 04/14/23 Louisa Anderson MD [address] [place] [address] Consulting Physician Cardiovascular Disease 09/09/21 Juan Luis Fritz MD [address] [place] [address] Consulting Physician Nephrology 09/09/21 Joshua Motley MD [address] [place] [address] Referring Physician Nephrology 02/15/22 Wily Tolbert RN [address] [place] [address] [place] [address] Money Room Supervisor 04/30/24 documented as of this encounter
--- OUTSIDE RECORDS SUMMARY | 2024-08-17 02:11 | XMS_ITS ---
Author Organization [facility] [address] Address [address] [place] [address] Care Team Providers Care Food Counter Attendant Name Role Phone Louisa Anderson MD Unavailable Juan Luis Fritz MD Unavailable [phone] Joshua Motley MD Unavailable [phone] Addie Moore NP Primary Care Provider [phone] Wily Tolbert RN Unavailable Dialysis Access Sites Type Status Location Placement [...] (PRIN[place]) 20 mg tabletIndicatio ns:started by plant maintenance technician Dr. Motley - 06/01. off entresto Take 1 tablet (20 mg total) by mouth daily 90 tablet 3 06/02/19 24 Active Additional Information Patient taking differently: 40 mgoral Daily, Indications: started by plant maintenance technician Dr. Motley - 06/01. off entresto, Reported [...] 05/02 Assessment & Plan (05/02/2024 9:21 AM ADMINISTRATIVE RESIDENT): -Recommended: Healthy diet. Avoiding junk food/fast food. [...] needed Assessment & Plan (05/02/2023 10:59 AM ADMINISTRATIVE RESIDENT): Patient Counseling: --Nutrition: Stressed importance of moderation [...] 08/2021 Assessment & Plan (05/02/2024 9:29 AM ADMINISTRATIVE RESIDENT): Has albuterol inhaler to use prn. She [...] this month where she ended up in [facility] for 2 days with a COPD exacerbation. She was treated with IV Solu-Medrol and nebulizers. She was given prednisone and Levaquin upon discharge but states that she read side effects and threw away 1 of the prescriptions. I think it was the prednisone but I am not sure. Assessment & Plan (04/14/2023 8:31 PM ADMINISTRATIVE RESIDENT): Not currently on any medications. Denies any difficulty with shortness of breath. Not currently a smoker. ESRD on dialysis 02/18/2022 Assessment & Plan (05/02/2024 9:26 AM ADMINISTRATIVE RESIDENT): Stable. Continues on dialysis 3 times weekly. Doing well today. States she has some bad days, but doing well Assessment & Plan (10/31/2023 10:01 AM CDT): Stable. Continues on dialysis 3 times weekly. I encouraged her to talk to her plant maintenance technician about the increased swelling in her ankles as well. Assessment & Plan (05/02/2023 11:02 AM ADMINISTRATIVE RESIDENT): Continues on dialysis 3 times week. Patient is considering moving to [place]. She is aware she has to set up health care before moving. She is considering moving into assisted living up there. She is currently on a waiting list Assessment & Plan (04/14/2023 8:30 PM ADMINISTRATIVE RESIDENT): Currently on dialysis. Dr. Motley. 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 Stable. Blood pressure within [...] October Assessment & Plan (06/05/2023 6:05 PM ADMINISTRATIVE RESIDENT): Continue all medications. Start lisinopril 20 mg once daily Assessment & Plan (05/02/2023 11:04 AM ADMINISTRATIVE RESIDENT): Blood pressure is improved today and is not hypotensive. Will continue current medication and continue to monitor. Assessment & Plan (04/14/2023 8:25 PM ADMINISTRATIVE RESIDENT): Apparently long history of hypertension. ON multiple antihypertensive medications and now on dialysis. However, she is also on entresto. Blood pressure is low today. Asymptomatic. Will try discontinuing nifedipine for the hypotension and keep her on all other medication, which we spend a considerable amount of time on reconciling and discussing. I asked her to also run this change by her plant maintenance technician. Will be referring to cardiology as well Chronic combined systolic and diastolic heart fa ilure 10/15/2020 Assessment & Plan (05/02/2024 9:28 AM ADMINISTRATIVE RESIDENT): Improved. No signs of acute heart failure. Last echo 04/2023 with EF 72% Assessment & Plan (11/16/2023 8:38 PM CDT): I think she had some fluid overload which may have improved with dialysis, and thus her shortness of breath improved. Her plant maintenance technician also increased her coreg to 25mg bid. [...] for evaluation. I would place referral to [facility] back in April but did not see any follow-up or scheduling for that referral Assessment & Plan (06/05/2023 6:05 PM ADMINISTRATIVE RESIDENT): Improved. Discontinue Entresto. Start lisinopril 20 mg once daily. We discussed this with her in detail and why we are starting lisinopril and why it is important to stay on all of her other medications. Assessment & Plan (04/14/2023 8:27 PM ADMINISTRATIVE RESIDENT): Reviewed last heart cath and last echo [...] 10/15/2020 Immunizations Immunization Administration Dates Next Due COVID-19 [...] 0.6 oz pur e alcohol) [facility] [employer] Answer Date Recorded In the past 12 months has [employer], gas, oil, or water [employer] threatened to shut off services in your [...] any clubs o r organizations such as shinto groups, unions, fraternal or athletic groups, or [...] any time in the past 12 m [facility], were you homeless or living in a long term (including now)? No 04/20/2024 Personal Safety Answer [...] Mass Index 17.25 08/15/2024 9:08 AM CDT Results * XR Chest Pa Lateral [...] signed by Nico NEGRON T: Report ID: [id number] Reading Location: [id number] Procedure Note Nico Leyva MD - 07/31/2024 [...] 07/31/2024 8:08 PM - Electronically signed by Ncio NEGRON T: Report ID: [id number] Reading Location: [id number] Addie A. Moore BUSINESS SUPPORT MANAGER IMG XR PROCEDURES Final Resul t * [...] revised on 2017. Basophil pct 0.8 % C[facility]ER Comment: Interpretive Data Percent cell count reference ranges are not reported, since discordance with absolute values may lead to misinterpretation of CBC data. Current Interpretive Data was last revised on 2017. Blood 07/30/2024 4:03 PM CDT 07/30/2024 9:13 PM CDT Addie Moore NP LAB BLOOD ORDERABLES Final Re sult [facility] [address] [address] Department [place] [address] * (ABNORMAL) Pro B-type natriuretic peptide (07/30/2024 [...] ORDERABLES Final Re sult Performing Organization Address [facility] [address] [facility] Co de Phone Number [facility] [address] [address] Department [place] [address] * (ABNORMAL) CBC with auto differential (07/30/2024 4:03 PM CDT) Pathologist [facility] WBC 7.24 3.80 - 9.90 K/cumm Hgb 13.9 11.9 - 15.5 g/dL [facility] Hct 40.6 35.6 - 45.5 % [facility] Plt 196 150 - 400 K/cumm [facility] MPV 9.3 9.1 - 12.3 fL [facility] RBC 5.01 3.90 - 5.20 M/cumm [facility] MCV 81.0(L) 81.3 - 96.4 fL [facility] MCH 27.7 27.1 - 33.3 pg [facility] MCHC 34.2 32.3 - 35.7 g/dL [facility] RDW CV 17.5(H) 11.1 - 14.9 % [facility] RDW SD 51.3(H) 35.7 - 48.1 fL [facility] NRBC abs 0.00 0.00 - 0.01 K/cumm [facility] Blood 07/30/2024 4:03 PM CDT 07/30/2024 9:13 PM CDT Addie Moore NP LAB BLOOD ORDERABLES Final Re sult Performing Organization Address [facility] [address]/[facility] Co de Phone Number [facility]OLORES B[facility] [address] [address] Department [place] [address] * Hepatitis panel, acute (08/29/2021 2:30 PM CDT) Pathologist [facility] Hep A IgM Nonreactive Nonreactive [facility] Comment: Interpretive Data: If Hep A IgM Ab is reported as Equivocal, a new sample should be drawn in two weeks for testing. Current interpretive data was last revised on 19. Hep B core IgM Nonreactive Nonreactive [facility] Comment: Interpretive Data If HepB Core IgM Ab is reported as Equivocal, a new sample should be drawn in two weeks for testing. Current interpretive data was last revised on 19. Hep C Ab Nonreactive Nonreactive [facility] Comment: Interpretive Data Nonreactive: Antibodies to HCV [...] GENERAL ORD ERABLES Final Result [facility] [address] [address] Department of Laboratories [place], [place] [id number] from Last 3 Months or Most Recently Relevant to Health Maintenance
--- OUTSIDE RECORDS SUMMARY | 2024-08-17 02:11 | XMS_ITS | Encounter Summary ---
Author Organization [facility] Healthcare Address [address] [place] [address] Care Team Providers Care Manager In Home Name Role Phone Louisa Anderson MD Unavailable [phone] Juan Luis Fritz MD Unavailable [phone] Joshua Motley MD Unavailable [phone] Adide Moore NP Primary Care Provider [phone] Wily oTlbert RN Unavailable [phone] Encounter Details Date Type Department Care Team (Late st Contact Info) Description 08/01/2024 Results Follow-Up [facility] Medical Group Primary Care at [address] [address] Addie Moore NP [address] [place] [address] [address] [place] [address] Social History Tobacco Use Types Packs/Day Years Used Date Smoking Tobacco: Former Cigarettes Q uit: 10/01/2020 Smokeless Tobacco: Never Alcohol Use Standard Drinks/Week Comments Yes 0 (1 standard drink = 0.6 oz pur e alcohol) [facility] Utilities Answer Date Recorded In the past [...] often do you attend chur ch or congregational services? Never 04/20/2024 Do you belong to any clubs o r organizations such as jew groups, unions, fraternal or athletic groups, or [...] any time in the past 12 m [facility], were you homeless or living in a custodial (including now)? No 04/20/2024 Personal Safety Answer [...] on filedocumented in this encounter Care Teams Manager In Home Relationship Specialty Start Date End Date Addie Moore NP [address] [place] [address] PCP - General Family Medicine 04/14/23 Louisa Anderson MD [address] [place] [address] Consulting Physician Cardiovascular Disease 09/09/21 Juan Luis Fritz MD [address] [place] [address] Consulting Physician Nephrology 09/09/21 Joshua Motley MD [address] [place] [address] Referring Physician Nephrology 02/15/22 Wily Tolbert RN [address] [place] [address] [place] [address] Blacktop Paver Operator 1/20/25 documented as of this encounter
--- OUTSIDE RECORDS SUMMARY | 2024-08-17 02:13 | XMS_ITS | Clinical Summary ---
Author Organization [facility] Address [address] [address] Phone Care Team Providers Care Stone Driller Name Role Phone Tricia Trejo MD Primary Care Provider Allergies Active Allergy Reactions Criticality Noted Date [...] 1994 Influenza Vaccine (Season Ended) [address] [place] [address] [place] [address] Care Teams Stone Driller Relationship Specialty Start Date End Date Tricia Trejo MD [address] [place] [address] [address] [place] [address] PCP - General Family Medicine 10/14/20
--- OUTSIDE RECORDS SUMMARY | 2024-08-17 02:13 | XMS_ITS | Encounter Summary ---
Author Organization [facility] Healthcare Address [address] [place] [address] Care Team Providers Care Professional Architect Name Role Phone Louisa Anderson MD Unavailable [phone] Juan Luis Fritz MD Unavailable [phone] Joshua Motley MD Unavailable [phone] Addie Moore NP Primary Care Provider [phone] Wily Tolbert RN Unavailable [phone] Reason for Visit * Reason Onset Date Comments Appointment Request 08/13/2024 Encounter Details Date Type Department Care Team (Late st Contact Info) Description 08/13/2024 Telephone [facility] Medical Group Primary Care at [address] [address] Addie Moore NP [address] [place] [address] Appointment Request Social History Tobacco Use Types Packs/Day Years Used Date Smoking Tobacco: Former Cigarettes Q uit: 10/01/2020 Smokeless Tobacco: Never Alcohol Use Standard Drinks/Week Comments Yes 0 (1 standard drink = 0.6 oz pur e alcohol) [facility] Utilities Answer Date Recorded In the past 12 months has [employer], gas, oil, or water company [...] often do you attend chur ch or catholic services? Never 04/20/2024 Do you belong to any clubs o r organizations such as quaker groups, unions, fraternal or athletic groups, or [...] any time in the past 12 m [facility], were you homeless or living in a senior care (including now)? No 04/20/2024 Personal Safety Answer Date Recorded Getting School Help Needed Denies 04/13 Comments No Sex and Gender Information Value Date Recorded Sex Assigned at Not on file Legal Sex Female 8:21 AM CDT Gender Identity Not on file Sexual Orientation Not on file documented as of this encounter Miscellaneous Notes * Telephone Encounter - Tara Eckert MA - 08/13/2024 10:23 AM CDT Appointment Request What visit type does the patient need? Visit Type: Established Patient What is the reason for the visit? ER Follow up What is the reason we were unable to schedule the appointment? Current appointment availability didnot meet patient's need. First available is not until August 27 If applicable, were all members of the patient's PCP care team offered (e.g., nurse practioner(s), physician academic affairs assistant(s)) ? Yes Additional Comments: ER Follow up Rt Solis arm pain 08/12/24 Does message need to be routed? Yes-Action Needed documented in this encounter Plan of Treatment Not on file documented as of this encounter Visit Diagnoses Not on filedocumented in this encounter Care Teams Professional Architect Relationship Specialty Start Date End Date Addie Moore NP [address] [place] [address] PCP - General Family Medicine 04/14/23 Louisa Anderson MD [address] [place] [address] Consulting Physician Cardiovascular Disease 09/09/21 Juan Luis Fritz MD [address] [place] [address] Consulting Physician Nephrology 09/09/21 Joshua Motley MD [address] [place] [address] Referring Physician Nephrology 02/15/22 Wily Tolbert RN [address] [place] [address] [address] [place] [address] Publicity Writer 04/30/24 documented as of this encounter
--- OUTSIDE RECORDS SUMMARY | 2024-08-17 02:13 | XMS_ITS | Continuity of Care Document ---
Author Organization [facility] Address [address] [place] [address] Phone Care Team Providers Care Marketing Director Assisted Living Name Role Phone Kaden Brown MD Unavailable [...] 24 hr - Active Procedures Procedure Date E/M NON BILLABLE EVENT To Be Coded E/M NON BILLABLE EVENT MOD SED BY OR SUP BY PHYSICIAN INTRO CATH DIALYSIS CIRCUIT To Be Coded Intro cath dialysis circuit Mod sed same phys/qhp 5/>yrs Intro cath dialysis circuit Mod sed same phys/qhp 5/>yrs Advance Directives Directive Yes / No Effective Date File Name No Information Encounters Encounter Description Practice Location Reason(s) For Visit Diagnoses Date Provider Providers Copied on Encounter [facility], [address] [place] [address], [id number], tel:[phone] [facility] 5 Kevin Alfonso . [address] [place] [address], [id number] , . tel:[phone] Referring Provider: Joshua Rushing, [address] [place] [address], [id number]. tel:[phone] [facility], [address] [place] [address], [id number], tel:[phone] [facility] 5 Kevin Alfonso . [address] [place] [address], [id number] , . tel:[phone] Referring Provider: Joshua Rushing, [address] [place] [address], [id number]. tel:[phone] [facility], [address] [place] [address], [id number], tel:[phone] [facility] Compression of VeinEnd stage renal disease 4 Simon Martell. [address] [place] [address], [id number] , . tel:[phone] Referring Provider: Joshua Rushing, [address] [place] [address], [id number]. tel:[phone] [facility], [address] [place] [address], [id number], tel:[phone] [facility] End stage renal diseaseCompression of Vein 4 Simon Jayshree. [address] [place], [place], [id number] , [place]. tel:[phone] Referring Provider: Joshua Rushing, [address] [facility], [place], [address]. tel:[phone] [facility], [address] [place], [place], [id number], [place] tel:[phone] [facility] No Information 4 Simon Jayshree. [address] [place], [place], [id number] , [place]. tel:[phone] As per patient privacy policy some of the clinical information may not be visible. Family History Family Member Type Diagnosis Age At Onset No Information Payers Payer name Insurance type Covered democrat ID Authoriza tise(s) Medicare [facility] [id number] [employer] [place] Fep BL [id number] Social History Type Description Quantity Date Captured Comments Sex Female Smoking Status No Information Gender Identity Female Chief Complaint And Reason For Visit No Information Reason For Referral Reason For Referral No Information Plan Of Treatment Date Type Action Status Future Order: Radiology Order Up per Body Flouroscopy ([id number]), Ordered on: Ordered History Of Present Illness Encounter Date Complaint History Of Prese nt Illness No Information Functional Status Date Functional Assessmen t No Information Instructions Date Instruction Additional Infor mation No Information Assessments Type Assessment Date No Information Patient Care Teams Name Effective Dates (start - stop) Status Members No Information
--- OUTSIDE RECORDS SUMMARY | 2024-08-17 02:13 | XMS_ITS | Clinical Summary ---
Author Organization [facility] Address [facility] [place] [address] Care Team Providers Care Trademark Affixer Name Role Phone None, Provider MD Primary [...] patient's age to complete this topic Insurance [facility] Advance Directives * Full Code (Latest Code Status on File) Date Activated Date Inactivated Comments 11/02/2019 2:38 PM 11/03/2019 12:18 PM Care Teams Trademark Affixer Relationship Specialty Start Date End Date None, Provider, PCP - General 11/02/19
[2024-08-17 02:24] VITALS: BP 144/102; PULSE 103; RESP 14; TEMP 36.9; O2SAT 96
--- OUTSIDE RECORDS SUMMARY | 2024-08-17 02:33 | XMS_ITS | Referral Summary ---
Author Organization [facility] [address] Address [address] [place] [address] Care Team Providers Care Cage Maker Machine Name Role Phone Louisa Anderson MD Unavailable Juan Luis Fritz MD Unavailable [phone] Joshua Motley MD Unavailable [phone] Addie Moore NP Primary Care Provider [phone] Wily Tolbert RN Unavailable [phone] Encounters Date Type Department Care Team Description 08/15/2024 9:00 AM CDT Office Visit [facility] Medical Group Primary Care at [address] [phone] Addie Moore NP Hospital discharge follow-up (Primary Dx) 08/13/2024 Telephone [facility] Medical Group Primary Care at [address] [address] Addie Moore NP Appointment Request 08/01/2024 Results Follow-Up [facility] Medical Group Primary Care at [address] [address] Addie Moore NP 07/31/2024 Results Follow-Up [facility] Medical Group Primary Care at [address] [address] Addie Moore NP 07/30/2024 4:03 PM CDT - 07/30/2024 11:59 [place] [address] Chronic combined systolic and diastolic heart failure (HCC); Acute cough Discharge Disposition: Discharge to home or self care 07/30/2024 4:20 PM CDT Ancillary Procedure [facility] Imaging at [address] [phone] Acute cough 07/30/2024 4:00 PM CDT Lab [facility] Group Outpatient Lab at [address] [id number] 07/30/2024 3:30 PM CDT Office Visit [facility] Primary Care at [address] [phone] Addie Moore NP ESRD on dialysis ([facility]) (Primary Dx); Hypertension due to end [...] (PRINIVIL,ZESTR [place]) 20 mg tabletIndicatio ns:started by bladder cleaner Dr. Motley 06/01. off entresto Take 1 tablet (20 mg total) by mouth daily 90 tablet 3 06/02/19 24 Active Additional Information Patient taking differently: 40 mgoral Daily, Indications: started by bladder cleaner Dr. Tiesah Herron 06/01. off entresto, Reported on 05/02/2024 [...] 05/02 Assessment & Plan (05/02/2024 9:21 AM PROP ATTENDANT): -Recommended: Healthy diet. Avoiding junk food/fast food. [...] needed Assessment & Plan (05/02/2023 10:59 AM PROP ATTENDANT): Patient Counseling: --Nutrition: Stressed importance of moderation [...] 08/2021 Assessment & Plan (05/02/2024 9:29 AM PROP ATTENDANT): Has albuterol inhaler to use prn. She [...] this month where she ended up in [facility] for 2 days with a COPD exacerbation. She was treated with IV Solu-Medrol and nebulizers. She was given prednisone and Levaquin upon discharge but states that she read side effects and threw away 1 of the prescriptions. I think it was the prednisone but I am not sure. Assessment & Plan (04/14/2023 8:31 PM PROP ATTENDANT): Not currently on any medications. Denies any difficulty with shortness of breath. Not currently a smoker. ESRD on dialysis 02/18/2022 Assessment & Plan (05/02/2024 9:26 AM PROP ATTENDANT): Stable. Continues on dialysis 3 times weekly. Doing well today. States she has some bad days, but doing well Assessment & Plan (10/31/2023 10:01 AM CDT): Stable. Continues on dialysis 3 times weekly. I encouraged her to talk to her bladder cleaner about the increased swelling in her ankles as well. Assessment & Plan (05/02/2023 11:02 AM PROP ATTENDANT): Continues on dialysis 3 times week. Patient is considering moving to [place]. She is aware she has to set up health care before moving. She is considering moving into assisted living up there. She is currently on a waiting list Assessment & Plan (04/14/2023 8:30 PM PROP ATTENDANT): Currently on dialysis. Dr. Motley. 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 Stable. Blood pressure within [...] October Assessment & Plan (06/05/2023 6:05 PM PROP ATTENDANT): Continue all medications. Start lisinopril 20 mg once daily Assessment & Plan (05/02/2023 11:04 AM PROP ATTENDANT): Blood pressure is improved today and is not hypotensive. Will continue current medication and continue to monitor. Assessment & Plan (04/14/2023 8:25 PM PROP ATTENDANT): Apparently long history of hypertension. ON multiple antihypertensive medications and now on dialysis. However, she is also on entresto. Blood pressure is low today. Asymptomatic. Will try discontinuing nifedipine for the hypotension and keep her on all other medication, which we spend a considerable amount of time on reconciling and discussing. I asked her to also run this change by her bladder cleaner. Will be referring to cardiology as well Chronic combined systolic and diastolic heart fa ilure 10/15/2020 Assessment & Plan (05/02/2024 9:28 AM PROP ATTENDANT): Improved. No signs of acute heart failure. Last echo 04/2023 with EF 72% Assessment & Plan (11/16/2023 8:38 PM CDT): I think she had some fluid overload which may have improved with dialysis, and thus her shortness of breath improved. Her bladder cleaner also increased her coreg to 25mg bid. [...] for evaluation. I would place referral to [facility] back in April but did not see any follow-up or scheduling for that referral Assessment & Plan (06/05/2023 6:05 PM PROP ATTENDANT): Improved. Discontinue Entresto. Start lisinopril 20 mg once daily. We discussed this with her in detail and why we are starting lisinopril and why it is important to stay on all of her other medications. Assessment & Plan (04/14/2023 8:27 PM PROP ATTENDANT): Reviewed last heart cath and last echo [...] 05/02/2024 Assessment & Plan (03/20/2024 7:31 AM PROP ATTENDANT): Medication review done. Patient discharge instructions from [facility] show her still on atorvastatin 80mg and [...] Motley or his office , nephrology at [facility] to discuss med rec. Headache 04/27/2023 05/02/2024 Moderate malnutrition 09/03/20212023 Leg edema 05/05/2021 05/02/2024 Recurrent pleural effusion on right 02/11/2021 04/14/2023 Ischemic cardiomyopathy 10/15/2020 02/05/2023 Assessment & Plan (05/02/2023 11:05 AM PROP ATTENDANT): History of ischeic cardiomyopathy. We had ordered a repeat echocardiography at last office visit. She now has it scheduled at [facility] Cardiovascular stress test abnormal 10/15/2020 05/02/2024 Chronic [...] drink = 0.6 oz pur e alcohol) [facility] Parallelsities Answer Date Recorded In the past 12 months has e [employer], gas, oil, or water [employer] threatened to shut off services in your [...] often do you attend chur ch or alevism services? Never 04/20/2024 Do you belong to any clubs o r organizations such as jewish groups, unions, fraternal or athletic groups, or [...] any time in the past 12 m [facility], were you homeless or living [...] on file Medical Devices Implanted Type Area Ironworker Apprentice Device Identifier Shelf Expiration Date Model / Serial / Lot [employer] Intering 4-7mm 45cm 38cm Radial Support Stretch Line [id number] - [id number] - [id number] Implanted:Qty: 1 on 03/03/2022 by Dvaid Drummond MD at [facility] Graft Left: Arm W[employer] [id number] 05/11/2026 [id number] / [id number] / Description:AV fistula graft [employer] Synergy Xd Monorail 3mm 12mm 144cm Delivery System 1 Access Port [id number] - [id number] Implanted:Qty: 1 on 09/02/2021 by Claudio Nelson MD at [facility] Stent [employer]ra [id number] / / [employer] Synergy Xd 3.5mm 48mm System Coronary Stent Everolimus [id number] - [id number] Implanted:Qty: 1 on 09/02/2021 by Claudio Nelson MD at [facility] Stent [employer] [id number] / / Description:Mid RCA [employer] Synergy Xd Monorail 3mm 38mm 144cm Delivery System 1 Access Port [id number] - [id number] Implanted:Qty: 1 on 09/02/2021 by Claudio Nelson MD at [facility] Stent [employer] [id number] / / Description:Distal RCA betwe en stents [employer] Synergy Xd Monorail 3.5mm 12mm 144cm Delivery System 1 Access [id number] - [id number] Implanted:Qty: 1 on 09/02/2021 by Claudio Nelson MD at [facility] Stent [employer] Indra [id number] / / [employer] Dur[employer] Vascpak Safesheath D-Pro 15.5fr 24cm Kit Catheter [id number] - [id number] Implanted:Qty: 1 on 09/04/2021 at [facility] [employer] 09/09/2023 [id number] / / [id number] Procedures Procedure Name Priority Date/Time Associated Diagnosis [...] Nico Leyva M.D. MJ T: Report ID: [id number] Reading Location: [id number] Procedure Note Nico Leyva MD - 07/31/2024 [...] Nico Leyva M.D. MJ T: Report ID: [id number] Reading Location: [place] [address] Addie Moore NP IMG XR PROCEDURES Final [...] revised on 2017. Lymphocyte pct 12.7 % [facility] Comment: Interpretive Data Percent cell count reference [...] LAB BLOOD ORDERABLES Final Re sult DOLORES [address] Perlita Gonzalez Department of Laboratories [place] [id number] * (ABNORMAL) Pro B-type natriuretic peptide (07/30/2024 [...] NP LAB BLOOD ORDERABLES Final Re sult [facility] [address] Perlita Gonzalez Department [place] [address] * (ABNORMAL) CBC with auto differential (07/30/2024 [...] ORDERABLES Final Re sult Performing Organization Address [facility] [place] [facility]/ZIP Co de Phone Number DOLORES BETH [address] [address] Department [place] [address] * Hepatitis panel, acute (08/29/2021 2:30 PM CDT) Hep A IgM Nonreactive Nonreactive [facility] Comment: Interpretive Data: If Hep A IgM Ab is reported as Equivocal, a new sample should be drawn in two weeks for testing. Current interpretive data was last revised on 19. Hep B core IgM Nonreactive Nonreactive [facility] Comment: Interpretive Data If HepB Core IgM Ab is reported as Equivocal, a new sample should be drawn in two weeks for testing. Current interpretive data was last revised on 19. Hep C Ab Nonreactive Nonreactive [facility] Comment: Interpretive Data Nonreactive: Antibodies to [...] last revised on 2019. HepBsAg Nonreactive Nonreactive [facility] Blood 08/29/2021 2:30 PM CDT 08/29/2021 2:36 PM CDT Juan Luis Fritz MD LAB MICROBIOLOGY - GENERAL ORD ERABLES Final Result Performing Organization Address City/[facility] [place] [facility]/ZIP Co de Phone Number [facility]OLORES BETH [address] [address] Department [place] [address] from Last 3 Months or Most Recently Relevant to Health Maintenance Insurance [facility] FEDERAL MEDICARE MEDICARE [facility] FEDERAL MEDICARE [facility] Address: [address] [place] [address] MEDICARE Advance Directives For more information, please contact: [phone] * Full Code (Latest Code Status on File) Date Activated Date Inactivated Comments 05/19/2022 9:36 AM 05/20/2022 5:19 AM * Full Code Date Activated Date Inactivated Comments 08/25/2021 9:12 PM 09/09/2021 6:36 PM Healthcare Agents on File Name Relationship Healthcare Agent Frank ortiz Communication Al Tiffany Mckeon Health Care Agent Care Teams Cage Maker Machine Relationship Specialty Start Date End Date Addie Moore NP [address] [place] [address] PCP - General Family Medicine 04/14/23 Louisa Anderson MD [address] [place] [address] Consulting Physician Cardiovascular Disease 09/09/21 Juan Luis Fritz MD [address] [place] [address] Consulting Physician Nephrology 09/09/21 Joshua Motley MD [address] [place] [address] Referring Physician Nephrology 02/15/22 Wily Tolbert RN [address] [place] [address] [address] [place] [address] Computer Hardware Designer 04/30/24
--- OUTSIDE RECORDS SUMMARY | 2024-08-17 02:33 | XMS_ITS | Encounter Summary ---
Author Organization [facility] Healthcare Address [address] [place] [address] Care Team Providers Care Customer Service Associate Name Role Phone Louisa Anderson MD Unavailable [phone] Juan Luis Fritz MD Unavailable [phone] Joshua Motley MD Unavailable [phone] Addie Moore NP Primary Care Provider [phone] Wily Tolbert RN Unavailable [phone] Encounter Details Date Type Department Care Team (Late st Contact Info) Description 08/01/2024 Results Follow-Up [facility] Medical Group Primary Care at [address] [phone] Addie Moore NP [address] [place] [address] [address] [place] [address] Social History Tobacco Use Types Packs/Day Years Used Date Smoking Tobacco: Former Cigarettes Q uit: 10/01/2020 Smokeless Tobacco: Never Alcohol Use Standard Drinks/Week Comments Yes 0 (1 standard drink = 0.6 oz pur e alcohol) [facility] Utilities Answer Date Recorded In the past [...] often do you attend chur ch or spiritism services? Never 04/20/2024 Do you belong to [...] any time in the past 12 m [facility], were you homeless or living in a long-term (including now)? No 04/20/2024 Personal Safety Answer [...] on filedocumented in this encounter Care Teams Customer Service Associate Relationship Specialty Start Date End Date Addie Moore NP [address] [place] [address] PCP - General Family Medicine 04/14/23 Louisa Anderson MD [address] [place] [address] Consulting Physician Cardiovascular Disease 09/09/21 Juan Luis Fritz MD [address] [place] [address] Consulting Physician Nephrology 09/09/21 Joshua Motley MD [address] [place] [address] Referring Physician Nephrology 02/15/22 Wily Tolbert RN [address] [place] [address] [place] [address] Electrician Third 1/20/25 documented as of this encounter
--- OUTSIDE RECORDS SUMMARY | 2024-08-17 02:33 | XMS_ITS | Encounter Summary ---
Author Organization [facility] Healthcare Address [address] [place] [address] Care Team Providers Care Scorekeeper Name Role Phone Louisa Anderson MD Unavailable [phone] Juan Luis Fritz MD Unavailable [phone] Joshua Motley MD Unavailable [phone] Addie Moore NP Primary Care Provider [phone] Wily Tolbert RN Unavailable [phone] Encounter Details Date Type Department Care Team (Late st Contact Info) Description 07/31/2024 Results Follow-Up [facility] Medical Group Primary Care at [address] [address] Addie Moore NP [address] [place] [address] [address] [place] [address] Social History Tobacco Use Types Packs/Day Years Used Date Smoking Tobacco: Former Cigarettes Q uit: 10/01/2020 Smokeless Tobacco: Never Alcohol Use Standard Drinks/Week Comments Yes 0 (1 standard drink = 0.6 oz pur e alcohol) [facility] Utilities Answer Date Recorded In [...] often do you attend chur ch or druze services? Never 04/20/2024 Do you belong to any clubs o r organizations such as taoist groups, unions, fraternal or athletic groups, or [...] any time in the past 12 m [facility], were you homeless or living in a nursing home (including now)? No 04/20/2024 Personal Safety Answer [...] on filedocumented in this encounter Care Teams Scorekeeper Relationship Specialty Start Date End Date Addie Moore NP [address] [place] [address] PCP - General Family Medicine 04/14/23 Louisa Anderson MD [address] [place] [address] Consulting Physician Cardiovascular Disease 09/09/21 Juan Luis Fritz MD [address] [place] [address] Consulting Physician Nephrology 09/09/21 Joshua Motley MD [address] [place] [address] Referring Physician Nephrology 02/15/22 Wily Tolbert RN [address] [place] [address] [place] [address] Business Systems Lead 04/30/24 documented as of this encounter
--- OUTSIDE RECORDS SUMMARY | 2024-08-17 02:33 | XMS_ITS | Clinical Summary ---
Author Organization [facility] [address] Address [address] [place] [address] Care Team Providers Care Vp Care Management Name Role Phone Louisa Anderson MD Unavailable Juan Luis Fritz MD Unavailable [phone] Joshua Motley MD Unavailable [phone] Addie Moore NP Primary Care Provider Wily Tolbert RN Unavailable [phone] Allergies Active Allergy Reactions Criticality Noted Date [...] (PRINIVIL,ZESTR [place]) 20 mg tabletIndicatio ns:started by university president Dr. Motley - 06/01. off entresto Take 1 tablet (20 mg total) by mouth daily 90 tablet 3 06/02/19 24 Active Additional Information Patient taking differently: 40 mgoral Daily, Indications: started by university president Dr. Motley - 06/01. off entresto, Reported [...] well today. No further symptoms. We're calling [facility] for ER records. No medication changes. Follow up as scheduled. Medicare annual wellness visit, subsequent 05/02 Assessment & Plan (05/02/2024 9:21 AM FELLED SEAM OPERATOR): -Recommended: Healthy diet. Avoiding junk food/fast [...] needed Assessment & Plan (05/02/2023 10:59 AM FELLED SEAM OPERATOR): Patient Counseling: --Nutrition: Stressed importance of [...] 08/2021 Assessment & Plan (05/02/2024 9:29 AM FELLED SEAM OPERATOR): Has albuterol inhaler to use prn. [...] this month where she ended up in [facility] for 2 days with a COPD exacerbation. She was treated with IV Solu-Medrol and nebulizers. She was given prednisone and Levaquin upon discharge but states that she read side effects and threw away 1 of the prescriptions. I think it was the prednisone but I am not sure. Assessment & Plan (04/14/2023 8:31 PM FELLED SEAM OPERATOR): Not currently on any medications. Denies any difficulty with shortness of breath. Not currently a smoker. ESRD on dialysis 02/18/2022 Assessment & Plan (05/02/2024 9:26 AM FELLED SEAM OPERATOR): Stable. Continues on dialysis 3 times weekly. Doing well today. States she has some bad days, but doing well Assessment & Plan (10/31/2023 10:01 AM CDT): Stable. Continues on dialysis 3 times weekly. I encouraged her to talk to her university president about the increased swelling in her ankles as well. Assessment & Plan (05/02/2023 11:02 AM FELLED SEAM OPERATOR): Continues on dialysis 3 times week. Patient is considering moving to [place]. She is aware she has to set up health care before moving. She is considering moving into assisted living up there. She is currently on a waiting list Assessment & Plan (04/14/2023 8:30 PM FELLED SEAM OPERATOR): Currently on dialysis. Dr. Motley. 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 Stable. Blood pressure [...] October Assessment & Plan (06/05/2023 6:05 PM FELLED SEAM OPERATOR): Continue all medications. Start lisinopril 20 mg once daily Assessment & Plan (05/02/2023 11:04 AM FELLED SEAM OPERATOR): Blood pressure is improved today and is not hypotensive. Will continue current medication and continue to monitor. Assessment & Plan (04/14/2023 8:25 PM FELLED SEAM OPERATOR): Apparently long history of hypertension. ON multiple antihypertensive medications and now on dialysis. However, she is also on entresto. Blood pressure is low today. Asymptomatic. Will try discontinuing nifedipine for the hypotension and keep her on all other medication, which we spend a considerable amount of time on reconciling and discussing. I asked her to also run this change by her university president. Will be referring to cardiology as well Chronic combined systolic and diastolic heart fa ilure 10/15/2020 Assessment & Plan (05/02/2024 9:28 AM FELLED SEAM OPERATOR): Improved. No signs of acute heart failure. Last echo 04/2023 with EF 72% Assessment & Plan (11/16/2023 8:38 PM CDT): I think she had some fluid overload which may have improved with dialysis, and thus her shortness of breath improved. Her university president also increased her coreg to 25mg bid. [...] for evaluation. I would place referral to [facility] back in April but did not see any follow-up or scheduling for that referral Assessment & Plan (06/05/2023 6:05 PM FELLED SEAM OPERATOR): Improved. Discontinue Entresto. Start lisinopril 20 mg once daily. We discussed this with her in detail and why we are starting lisinopril and why it is important to stay on all of her other medications. Assessment & Plan (04/14/2023 8:27 PM FELLED SEAM OPERATOR): Reviewed last heart cath and last [...] 05/02/2024 Assessment & Plan (03/20/2024 7:31 AM FELLED SEAM OPERATOR): Medication review done. Patient discharge instructions from [facility] show her still on atorvastatin 80mg and [...] 10/15/202005/13 Assessment & Plan (05/02/2023 11:05 AM FELLED SEAM OPERATOR): History of ischeic cardiomyopathy. We had ordered a repeat echocardiography at last office visit. She now has it scheduled at [facility] Cardiovascular stress test abnormal 10/15/2020 05/02/2024 Chronic kidney disease 10/15/202004/14 Encounters Date Type Department Care Team Description 08/15/2024 9:00 AM CDT Office Visit [facility] Primary Care at [address] [phone] Addie Moore NP Hospital discharge follow-up (Primary Dx) 08/13/2024 Telephone [facility] Primary Care at [address] [phone] Addie Moore NP Appointment Request 08/01/2024 Results Follow-Up [facility] Primary Care at [address] [phone] Addie Moore NP 07/31/2024 Results Follow-Up [facility] Primary Care at [address] [phone] Addie Moore NP 07/30/2024 4:20 PM CDT Ancillary Procedure [facility] Imaging at [address] [phone] Acute cough 07/30/2024 4:03 PM CDT - 07/30/2024 11:59 PM CDT Hospital Encounter [address] [address] Chronic combined systolic and diastolic heart failure (HCC); Acute cough Discharge Disposition: Discharge to home or self care 07/30/2024 4:00 PM CDT Lab [facility] Outpatient Lab at [address] [phone] 07/30/2024 3:30 PM CDT Office Visit [facility] Primary Care at [address] [phone] Addie Moore NP ESRD on dialysis (HCC) [...] drink = 0.6 oz pur e alcohol) [facility] Utilities Answer Date Recorded In the past 12 months has e Talk[employer], gas, oil, or water happin! threatened to shut off services in your [...] often do you attend chur ch or jainism services? Never 04/20/2024 Do you belong to any clubs o r organizations such as muslim groups, unions, fraternal or athletic groups, or [...] were you homeless or living in a half-way (including now)? No 04/20/2024 Personal Safety Answer [...] Completed 05/02/2024 Medical Devices Implanted Type Area Construction Accountant Device Identifier Shelf Expiration Date Model / Serial / Lot [employer]l [employer] Broomfield Intering 4-7mm 45cm 38cm Radial Support Stretch Line [id number] - [id number] - [id number] Implanted:Qty: 1 on 03/03/2022 by David Drummond MD at [facility] Graft Left: Arm [employer] [id number] 05/11/2026 [id number] / [id number] / Description:AV fistula graft [employer] Synergy Xd Monorail 3mm 12mm 144cm Delivery System 1 Access Port [id number] - [id number] Implanted:Qty: 1 on 09/02/2021 by Claudio Nelson MD at [facility] Stent [employer] Indra [id number] / / [employer] Synergy Xd 3.5mm 48mm System Coronary Stent Everolimus [id number] - [id number] Implanted:Qty: 1 on 09/02/2021 by Claudio Nelson MD at [facility] Stent [employer] [id number] / / Description:Mid RCA [employer] Synergy Xd Monorail 3mm 38mm 144cm Delivery System 1 Access Port [id number] - [id number] Implanted:Qty: 1 on 09/02/2021 by Claudio Nelson MD at [facility] Stent [employer]ra [id number] / / Description:Distal RCA betwe en stents [employer] Synergy Xd Monorail 3.5mm 12mm 144cm Delivery System 1 Access [id number] - [id number] Implanted:Qty: 1 on 09/02/2021 by Claudio Nelson MD at [facility] Stent [employer] Indra [id number] / / Ang[employer] Dur[employer] Vascpak Safesheath D-Pro 15.5fr 24cm Kit Catheter [id number] - [id number] Implanted:Qty: 1 on 09/04/2021 at [facility] [employer] 09/09/2023 [id number] / / [id number] Procedures Procedure Name Priority Date/Time Associated Diagnosis [...] Nico Leyva M.D. MJ T: Report ID: [id number] Reading Location: [place] [address] Procedure Note Nico Leyva MD - 07/31/2024 [...] Nico Leyva M.D. MJ T: Report ID: [id number] Reading Location: [place] [address] Addie Moore MASTER CONTROL OPERATOR IMG XR PROCEDURES Final Resul t * [...] BLOOD ORDERABLES Final Re sult DOLORES B[facility] [address] Department [place] [address] * (ABNORMAL) Pro B-type natriuretic peptide (07/30/2024 [...] ORDERABLES Final Re sult Performing Organization Address [facility] Co de Phone Number DOLORES BETH [address] [place] [address] * (ABNORMAL) CBC with auto differential (07/30/2024 4:03 PM CDT) WBC 7.24 3.80 - 9.90 K/cumm Hgb 13.9 11.9 - 15.5 g/dL [facility] Hct 40.6 35.6 - 45.5 % [facility] Plt 196 150 - 400 K/cumm [facility] MPV 9.3 9.1 - 12.3 fL [facility] RBC 5.01 3.90 - 5.20 M/cumm [facility] MCV 81.0(L) 81.3 - 96.4 fL [facility] MCH 27.7 27.1 - 33.3 pg [facility] MCHC 34.2 32.3 - 35.7 g/dL [facility] RDW CV 17.5(H) 11.1 - 14.9 % [facility] RDW SD 51.3(H) 35.7 - 48.1 fL [facility] NRBC abs 0.00 0.00 - 0.01 K/cumm [facility] Blood 07/30/2024 4:03 PM CDT 07/30/2024 9:13 PM CDT Addie Moore NP LAB BLOOD ORDERABLES Final Re sult Performing Organization Address [facility]/ZIP Co de Phone Number DOLORES BETH [address] [place] [address] * Hepatitis panel, acute (08/29/2021 2:30 PM CDT) Hep A IgM Nonreactive Nonreactive [facility] Comment: Interpretive Data: If Hep A IgM Ab is reported as Equivocal, a new sample should be drawn in two weeks for testing. Current interpretive data was last revised on 19. Hep B core IgM Nonreactive Nonreactive [facility] Comment: Interpretive Data If HepB Core IgM Ab is reported as Equivocal, a new sample should be drawn in two weeks for testing. Current interpretive data was last revised on 19. Hep C Ab Nonreactive Nonreactive [facility] Comment: Interpretive Data Nonreactive: Antibodies to HCV [...] last revised on 2019. HepBsAg Nonreactive Nonreactive [facility] Blood 08/29/2021 2:30 PM CDT 08/29/2021 2:36 PM CDT Juan Luis Fritz MD LAB MICROBIOLOGY - GENERAL ORD ERABLES Final Result [facility] [address] Department [place] [address] from Last 3 Months or Most Recently Relevant to Health Maintenance Insurance [facility] FEDERAL MEDICARE MEDICARE [facility] MEDICARE [facility] FEDERAL MEDICARE Advance Directives For more information, please contact: [phone] * Full Code (Latest Code Status on File) Date Activated Date Inactivated Comments 05/19/2022 9:36 AM 05/20/2022 5:19 AM * Full Code Date Activated Date Inactivated Comments 08/25/2021 9:12 PM 09/09/2021 6:36 PM Healthcare Agents on File Name Relationship Healthcare Agent [facility] Communication Al Tiffany [facility] Health Care Agent Care Teams Vp Care Management Relationship Specialty Start Date End Date Addie Moore NP [address] [place] [address] PCP - General Family Medicine 04/14/23 Louisa Anderson MD [address] [place] [address] Consulting Physician Cardiovascular Disease 09/09/21 Juan Luis Fritz MD [address] [facility] [place] [address] Consulting Physician Nephrology 09/09/21 Joshua Motley MD [address] [place] [address] Referring Physician Nephrology 02/15/22 Wily Tolbert RN [address] [place] [address] DR LANGE [address] [place] [id number] District Loss Prevention Manager 04/30/24
--- OUTSIDE RECORDS SUMMARY | 2024-08-17 02:33 | XMS_ITS | CONTINUITY OF CARE DOCUMENT ---
Author Name jeremy luna Address Unknown Organization [facility] Address [address] [place] [address] Phone [phone] Care Team Providers Care Deputy Chief Counsel Name Role Phone Justin CABRERA, Louisa Menendez [...] In-person encounter Office Visit Louisa Anderson MD [facility] CAD - In-person encounter Office Visit Louisa Anderson MD [facility] End stage renal disease -on dialysis - In-person encounter Office Visit Louisa Anderson MD [place] Cardiology examinationCHF - systolicHTN essentialLeg edemaSARS-associated [...] Ashu er height E&M 61 [in_i] Nimo Tripatihshaq marser ALLERGIES Allergy Name Onset Date Reaction [...] TABLET BY MOUTH EVERY DAY AT NIGHT [facility] amlodipine 10 mg tablet active TAKE 1 TABLET BY MOUTH EVERY DAY Sheryl Louis pantoprazole 40 mg tablet,delayed release (DR/EC) active TAKE 1 TABLET BY MOUTH EVERY DAY Claudio Nelson MD Brilinta 90 mg tablet completed Take 1 tablet by mouth twice a day - [facility] Plavix 75 mg tablet completed TAKE 1 [...] by mouth three times a day Casandra Byoer'Rodney calcitriol 0.25 mcg capsule active Take 1 [...] Nimo olivarez cigarette use yes Nimo Velasco [facility] smoking status Former smoker Nimo bell [employer] Payer name Policy type / Coverage type [place] [employer] party ID [facility] Blue [facility] [id number] ADVANCE DIRECTIVES Name Date DISCUSSED - NO DECISION MADE TREATMENT PLAN Date Name Performer [id number],C, B P today: 154/61 P rior BP: [...] mouth twice a day Louisa Anderson MD [id number],S,U nderwent complex PCI or RCA with Omar Sargent at [facility]. O n aspirin brillinta. Louisa Anderson MD [id number],S,E lectrolytes from dialysis report look good. K 3.5. Sees Dr. Tiesha Anderson MD [id number],C,C ONCLUSIONS: 1 . Normal left ventricular systolic [...] is mild pulmonic regurgitation. Louisa Anderson MD [id number],C, L FEV was 50% on echo on 08/29/21 at [facility]. Will recheck echo since revascularzation H er updated medication list for this problem includes: B rilllinta 90 BID November 20, 2021 E cho most recent shows EF is up to 55%. Louisa Anderson MD [id number],C, S odium restriction and dialysis Louisa Anderson MD [id number],C, H as had multiple admissions has abnormal EKG consistent with prior anterior wall MS will arrange for lexiscan stress R EMAINS ON DAPT WITH ASA BRILINTA FOR THE ALYSE STENTS WHICH WERE PLACED IN THE RCA 09/02/21 Louisa Anderson MD [id number],C,switched to a Dr Motley for HD Louisa Anderson MD [id number],C, Continue BP med rx currently on entresto, hydralyzine. W ill stop Losartan since she is currently on Entresto BP today: 101/48 P rior BP: 156/77 (05/05/2021) J une 2021 t olerating ientresto and has done well with her BP will contine Louisa Anderson MD [id number],S,See JOVANY Fritz on October 09 Louisa Anderson MD [id number],S, Continue BP med rx currently on entresto, hydralyzine. W ill stop Losartan since she is currently on Entresto BP today: 101/48 P rior BP: 156/77 (05/05/2021) Louisa Anderson MD [id number],S,L FEV was 50% on echo on 08/29/21 at [facility]. Will recheck echo since revascularzation H er [...] mouth twice a day Louisa Anderson MD [id number],C,H as had multiple admissions has abnormal EKG consistent with prior anterior wall MS will arrange for lexiscan stress Louisa Anderson MD [id number],S,Sodium restri ction and diuretics Louisa Anderson MD [id number],C,Vaccinated Sa oscar Anderson MD [id number],C,E F 24% according to her son has [...] lifevest in the meantime. Louisa Anderson MD [id number],C, B P today: 156/77 C ontinue BP [...] PCI or RCA with Omar Sargent at [facility]. O n aspirin brillinta. Louisa Anderson MD [...] abnormal EKG consistent with prior anterior wall MS will arrange for lexiscan stress R EMAINS [...] P rior BP: 156/77 (05/05/2021) J [facility] 2021 t olerating ientresto and has done [...] abnormal EKG consistent with prior anterior wall MS will arrange for lexiscan stress Louisa Anderson [...]
--- OUTSIDE RECORDS SUMMARY | 2024-08-17 02:33 | XMS_ITS ---
Author Organization [facility] [address] Address [address] [place] [address] Care Team Providers Care Mixer Slagman Name Role Phone Louisa Anderson MD Unavailable [phone] Juan Luis Fritz MD Unavailable [phone] Joshua Motley MD Unavailable [phone] Addie Moore NP Primary Care Provider [phone] Wily Tolbert RN Unavailable [phone] Dialysis Access Sites Type Status Location Placement [...] (PRIN[place]) 20 mg tabletIndicatio ns:started by airport traffic controller Dr. Motley - 06/01. off entresto Take 1 tablet (20 mg total) by mouth daily 90 tablet 3 06/02/19 24 Active Additional Information Patient taking differently: 40 mgoral Daily, Indications: started by airport traffic controller Dr. Motley - 06/01. off entresto, Reported [...] 05/02 Assessment & Plan (05/02/2024 9:21 AM FISCAL ANALYST): -Recommended: Healthy diet. Avoiding junk food/fast food. [...] needed Assessment & Plan (05/02/2023 10:59 AM FISCAL ANALYST): Patient Counseling: --Nutrition: Stressed importance of moderation [...] 08/2021 Assessment & Plan (05/02/2024 9:29 AM FISCAL ANALYST): Has albuterol inhaler to use prn. She [...] this month where she ended up in [facility] for 2 days with a COPD exacerbation. She was treated with IV Solu-Medrol and nebulizers. She was given prednisone and Levaquin upon discharge but states that she read side effects and threw away 1 of the prescriptions. I think it was the prednisone but I am not sure. Assessment & Plan (04/14/2023 8:31 PM FISCAL ANALYST): Not currently on any medications. Denies any difficulty with shortness of breath. Not currently a smoker. ESRD on dialysis 02/18/2022 Assessment & Plan (05/02/2024 9:26 AM FISCAL ANALYST): Stable. Continues on dialysis 3 times weekly. Doing well today. States she has some bad days, but doing well Assessment & Plan (10/31/2023 10:01 AM CDT): Stable. Continues on dialysis 3 times weekly. I encouraged her to talk to her airport traffic controller about the increased swelling in her ankles as well. Assessment & Plan (05/02/2023 11:02 AM FISCAL ANALYST): Continues on dialysis 3 times week. Patient is considering moving to [place]. She is aware she has to set up health care before moving. She is considering moving into assisted living up there. She is currently on a waiting list Assessment & Plan (04/14/2023 8:30 PM FISCAL ANALYST): Currently on dialysis. Dr. Motley. Hypertension due to end stage renal disease on d ialysis 02/11/2021 Assessment & Plan (05/02/2024 9:29 AM FISCAL ANALYST): Managed by nephrology. Stable. Blood pressure within [...] October Assessment & Plan (06/05/2023 6:05 PM FISCAL ANALYST): Continue all medications. Start lisinopril 20 mg once daily Assessment & Plan (05/02/2023 11:04 AM FISCAL ANALYST): Blood pressure is improved today and is not hypotensive. Will continue current medication and continue to monitor. Assessment & Plan (04/14/2023 8:25 PM FISCAL ANALYST): Apparently long history of hypertension. ON multiple antihypertensive medications and now on dialysis. However, she is also on entresto. Blood pressure is low today. Asymptomatic. Will try discontinuing nifedipine for the hypotension and keep her on all other medication, which we spend a considerable amount of time on reconciling and discussing. I asked her to also run this change by her airport traffic controller. Will be referring to cardiology as well Chronic combined systolic and diastolic heart fa ilure 10/15/2020 Assessment & Plan (05/02/2024 9:28 AM FISCAL ANALYST): Improved. No signs of acute heart failure. Last echo 04/2023 with EF 72% Assessment & Plan (11/16/2023 8:38 PM CDT): I think she had some fluid overload which may have improved with dialysis, and thus her shortness of breath improved. Her airport traffic controller also increased her coreg to 25mg bid. [...] for evaluation. I would place referral to [facility] back in April but did not see any follow-up or scheduling for that referral Assessment & Plan (06/05/2023 6:05 PM FISCAL ANALYST): Improved. Discontinue Entresto. Start lisinopril 20 mg once daily. We discussed this with her in detail and why we are starting lisinopril and why it is important to stay on all of her other medications. Assessment & Plan (04/14/2023 8:27 PM FISCAL ANALYST): Reviewed last heart cath and last echo [...] drink = 0.6 oz pur e alcohol) [facility] [employer] Answer Date Recorded In the past 12 months has [employer], gas, oil, or water [employer] threatened to shut off services in your [...] often do you attend chur ch or worship services? Never 04/20/2024 Do you belong to any clubs o r organizations such as zoroastrian groups, unions, fraternal or athletic groups, or [...] any time in the past 12 m [facility], were you homeless or living in a group home (including now)? No 04/20/2024 Personal Safety [...] signed by Nico NEGRON T: Report ID: [id number] Reading Location: [id number] Procedure Note Ncio Leyva MD - 07/31/2024 EXAM DESCRIPTION: XR [...] signed by Nico NEGRON T: Report ID: [id number] Reading Location: [id number] Addie A. Moore MECHANIC FOREMAN IMG XR PROCEDURES Final Resul t * [...] BLOOD ORDERABLES Final Re sult DOLORES BETH [address] Department [place] [address] * (ABNORMAL) Pro B-type natriuretic peptide (07/30/2024 [...] 2. Daisha RW, Jami AM. J. AM Adrnell Cardiol: Cardiovasc Imag. 2009;2: 216- 225. Interpretive Data Last Revised Date: 2017. Blood 07/30/2024 4:03 PM CDT 07/30/2024 9:13 PM CDT Addie Moore NP LAB BLOOD ORDERABLES Final Re sult Performing Organization Address [facility] Co de Phone Number DOLORES BETH [address] Department [place] [address] * (ABNORMAL) CBC with auto differential (07/30/2024 4:03 PM CDT) Pathologist [facility] WBC 7.24 3.80 - 9.90 K/cumm Hgb 13.9 11.9 - 15.5 g/dL [facility] Hct 40.6 35.6 - 45.5 % [facility] Plt 196 150 - 400 K/cumm [facility] MPV 9.3 9.1 - 12.3 fL [facility] RBC 5.01 3.90 - 5.20 M/cumm [facility] MCV 81.0(L) 81.3 - 96.4 fL [facility] MCH 27.7 27.1 - 33.3 pg [facility] MCHC 34.2 32.3 - 35.7 g/dL [facility] RDW CV 17.5(H) 11.1 - 14.9 % [facility] RDW SD 51.3(H) 35.7 - 48.1 fL [facility] NRBC abs 0.00 0.00 - 0.01 K/cumm [facility] Blood 07/30/2024 4:03 PM CDT 07/30/2024 9:13 PM CDT Addie Moore NP LAB BLOOD ORDERABLES Final Re sult Performing Organization Address [facility] Co de Phone Number DOLORES BETH [address] Department [place] [address] * Hepatitis panel, acute (08/29/2021 2:30 PM CDT) Pathologist [facility] Hep A IgM Nonreactive Nonreactive [facility] Comment: Interpretive Data: If Hep A IgM Ab is reported as Equivocal, a new sample should be drawn in two weeks for testing. Current interpretive data was last revised on 19. Hep B core IgM Nonreactive Nonreactive [facility] Comment: Interpretive Data If HepB Core [...] GENERAL ORD ERABLES Final Result [facility]OLOR[facility] BETH [address] [address] Department of Laboratories [place], [place] [id number] from Last 3 Months or Most Recently Relevant to Health Maintenance
--- OUTSIDE RECORDS SUMMARY | 2024-08-17 02:35 | XMS_ITS | Continuity of Care Document ---
Author Organization [facility] Address [address] [place] [address] Phone Care Team Providers Care Computer Support Technician Name Role Phone Kaden Brown MD Unavailable [...] Diagnoses Date Provider Providers Copied on Encounter [facility], [address] [place] [address], [id number], tel:[phone] [facility] 5 Kevin Alfonso . [address] [place] [address], [id number] , . tel:[phone] Referring Provider: Joshua Rushing, [address] [place] [address], [id number]. tel:[phone] [facility], [address] [place] [address], [id number], tel:[phone] [facility] 5 Kevin Alfonso . [address] [place] [address], [id number] , . tel:[phone] Referring Provider: Joshua Rushing, [address] [place] [address], [id number]. tel:[phone] [facility], [address] [place] [address], [id number], tel:[phone] [facility] Compression of VeinEnd stage renal disease 4 Simon Martell. [address] [place] [address], [id number] , . tel:[phone] Referring Provider: Joshua Rushing, [address] [place] [address], [id number]. tel:[phone] [facility], [address] [place] [address], [id number], tel:[phone] [facility] End stage renal diseaseCompression of Vein 4 Simon Jayshree. [address] [place], [place], [id number] , [place]. [phone] Referring Provider: Joshua Rushing, [address] [facility], [place], [address]. tel:[phone] [facility], [address] [place], [place], [id number], [place] tel:[phone] [facility] No Information 4 Simon Jayshree. [address] [place], [place], [id number] , [place]. [phone] As per patient privacy policy some of the clinical information may not be visible. Family History Family Member Type Diagnosis Age At Onset No Information Payers Payer name Insurance type Covered alliance party ID Authoriza tise(s) Medicare [facility] [id number] [employer] [place] Fep BL [id number] Social History Type Description Quantity Date Captured Comments Sex Female Smoking Status No Information Gender Identity Female Chief Complaint And Reason For Visit No Information Reason For Referral Reason For Referral No Information Plan Of Treatment Date Type Action Status Future Order: Radiology Order Up per Body Flouroscopy ([id number]), Ordered on: Ordered History Of Present Illness Encounter Date Complaint History Of Prese nt Illness No Information Functional Status Date Functional Assessmen t No Information Instructions Date Instruction Additional Infor mation No Information Assessments Type Assessment Date No Information Patient Care Teams Name Effective Dates (start - stop) Status Members No Information
--- OUTSIDE RECORDS SUMMARY | 2024-08-17 02:35 | XMS_ITS | Clinical Summary ---
Author Organization [facility] Address [facility] [place] [address] Care Team Providers Care Risk Consulting Treasury Director Name Role Phone None, Provider MD Primary [...] patient's age to complete this topic Insurance [facility] Advance Directives * Full Code (Latest Code Status on File) Date Activated Date Inactivated Comments 11/02/2019 2:38 PM 11/03/2019 12:18 PM Care Teams Risk Consulting Treasury Director Relationship Specialty Start Date End Date None, Provider, PCP - General 11/02/19
--- OUTSIDE RECORDS SUMMARY | 2024-08-17 02:35 | XMS_ITS | Encounter Summary ---
Author Organization [facility] Address [address] [place] [address] Care Team Providers Care Mountain Services Manager Name Role Phone Louisa Anderson MD Unavailable [phone] Juan Luis Fritz MD Unavailable [phone] Joshua Motley MD Unavailable [phone] Addie Moore NP Primary Care Provider [phone] Wily Tolbert RN Unavailable [phone] Reason for Visit * Reason Onset Date Comments Appointment Request 08/13/2024 Encounter Details Date Type Department Care Team (Late st Contact Info) Description 08/13/2024 Telephone [facility] Medical Group Primary Care at [address] [address] Addie Moore NP [address] [place] [address] Appointment Request Social History Tobacco Use Types Packs/Day Years Used Date Smoking Tobacco: Former Cigarettes Q uit: 10/01/2020 Smokeless Tobacco: Never Alcohol Use Standard Drinks/Week Comments Yes 0 (1 standard drink = 0.6 oz pur e alcohol) [facility] Utilities Answer Date Recorded In the past 12 months has [email or web address] e electric, gas, oil, or water company [...] often do you attend chur ch or baptism services? Never 04/20/2024 Do you belong to any clubs o r organizations such as anabaptism groups, unions, fraternal or athletic groups, or [...] any time in the past 12 m [facility], were you homeless or living in [...] care team offered (e.g., nurse practioner(s), physician clinical trial assistant(s)) ? Yes Additional Comments: ER Follow up [facility] arm pain 08/12/24 Does message need to be routed? Yes-Action Needed documented in this encounter Plan of Treatment Not on file documented as of this encounter Visit Diagnoses Not on filedocumented in this encounter Care Teams Mountain Services Manager Relationship Specialty Start Date End Date Addie Moore NP [address] [place] [address] PCP - General Family Medicine 04/14/23 Louisa Anderson MD [address] [place] [address] Consulting Physician Cardiovascular Disease 09/09/21 Juan Luis Fritz MD [address] [place] [address] Consulting Physician Nephrology 09/09/21 Joshua Motley MD [address] [place] [address] Referring Physician Nephrology 02/15/22 Wily Tolbert RN [address] [place] [address] [address] [place] [address] Child Therapist 04/30/24 documented as of this encounter
--- OUTSIDE RECORDS SUMMARY | 2024-08-17 02:35 | XMS_ITS | Continuity of Care Document ---
Author Organization [facility] Address [address] [place] [address] [address] [place] [address] Phone Care Team Providers Care Assistant Cross Country Coach Name Role Phone Zuniga OD, Maykel Unavailable Unavailable Procedures Procedure Date Eye Exam & Treatment Refraction Advance Directives Directive Yes / No Effective Date File Name No Information Encounters Encounter Description Practice Location Reason(s) For Visit Diagnoses Date Provider Providers Copied on Encounter [facility], [address] [place] [address] [address], [place], [place], [id number], [place] tel:[phone] [facility] No Information 6[address] Zuniga OD Maykel. [address] , [address], [place], [address], [place]. tel:[phone] Family History Family Member Type Diagnosis Age At Onset No Information Payers Payer name Insurance type Covered constitution party ID Authoriza tion(s) [place] FEP BL [id number] Social History Type Description Quantity Date Captured [...]
--- OUTSIDE RECORDS SUMMARY | 2024-08-17 02:35 | XMS_ITS | Clinical Summary ---
Author Organization [facility] Address [address], [place] [address] Phone Care Team Providers Care Machinist Name Role Phone Tricia Trejo MD Primary Care Provider [phone] Allergies Active Allergy Reactions Criticality Noted Date [...] 1994 Influenza Vaccine (Season Ended) [address] [place] [address] [place] [address] Care Teams Machinist Relationship Specialty Start Date End Date Tricia Trejo MD [address] [place] [address] [address] [place] [address] PCP - General Family Medicine 10/14/20
[2024-08-17 02:42] VITALS: BP 143/58; PULSE 96; RESP 14; O2SAT 95
[2024-08-17 03:20] LABS: Influenza A QL RT-PCR Negative (Negative); Influenza B QL RT-PCR Negative (Negative); RSV RNA, RT-PCR Negative (Negative); SARS-CoV-2 RNA PCR Negative (Negative)
--- NOTE | 2024-08-17 03:28 | ED.URI ---
HPI - URI/Sore Throat General Chief Complaint: Upper Respiratory Infection Stated Complaint: uri Time Seen by Provider: 08/17/24 02:22 Source: patient Limitations: no limitations History of Present Illness HPI Narrative: 78-year-old with a history of ESRD on hemodialysis here with the complaints cold, congestion for past 3-4 days the patient states that there were several people at the dialysis center over had COVID and she is concerned that she may be having COVID. She denies having any fever or shortness of breath. Related Data Home Medications ?Medication ?Instructions ?Recorded ?Confirmed ?Last Taken ?Type aspirin 81 mg tablet 81 mg PO DAILY 05/10/20 03/10/24 09/03/23 History melatonin 3 mg tablet 3 mg PO HS PRN Sleep 12/08/22 03/10/24 09/03/23 History omeprazole 40 mg capsule,delayed 40 mg PO DAILY 12/08/22 03/10/24 1 Day Ago History release ~09/03/23 oxybutynin chloride 5 mg tablet 5 mg PO HS 12/08/22 03/10/24 09/03/23 History trazodone 50 mg tablet 50 mg PO HS 12/08/22 03/10/24 09/03/23 History ergocalciferol (vitamin D2) 1,250 50,000 unit PO BID 10/11/23 03/10/24 Unknown History mcg (50,000 unit) capsule ticagrelor 90 mg tablet (Brilinta) 90 mg PO BID 10/11/23 03/10/24 Unknown History albuterol sulfate 90 mcg/actuation 2 puff inhalation Q6H PRN 12/14/23 03/10/24 Unknown History aerosol inhaler Shortness Of Breath lisinopril 20 mg tablet 20 mg PO DAILY 12/15/23 03/10/24 12/14/23 History atorvastatin 80 mg tablet 80 mg PO HS 03/10/24 03/10/24 Unknown History carvedilol 25 mg tablet 25 mg PO BIDWM 03/10/24 03/10/24 Unknown History Allergies Allergy/AdvReac Type Severity Reaction Status Date / Time Penicillins Allergy Unknown Unknown,Ham Verified 08/17/24 02:10 h Review of Systems Review of Systems: All systems reviewed & are unremarkable except as noted in HPI and below Constitutional: Constitutional: Reports no additional constitutional complaints Eyes: Eyes: Reports no additional eye complaints ENT: Reports system reviewed and no additional complaints, except as documented Cardiovascular: Cardiovascular: Reports no additional cardiovascular complaints Respiratory: Respiratory: Reports as per HPI Gastrointestinal: Gastrointestinal: Reports no additional gastrointestinal complaints Musculoskeletal: Musculoskeletal: Reports no additional musculoskeletal complaints Neurologic: Reports system reviewed and no additional complaints, except as documented Psychiatric: Psychiatric: Reports no additional psychiatric complaints [facility] Past Medical History Medical History Hyperparathyroidism due to ESRD on dialysis End-stage renal disease on hemodialysis Tuesday. Dialysis managed by Dr. Joshua Motley Hyperlipidemia Chronic anemia History of blood transfusion. COPD with emphysema Peripheral arterial disease Combined systolic and diastolic congestive heart failure Echocardiogram on 09/10/2020 EF of 20 to 25%, grade 1 diastolic dysfunction, reduced RV systolic function. 12/2020 echo EF 40-46% with segmental wall motion abnormalities Gastric AVM Cardiomyopathy Presumed ischemic with moderately sized moderately severe reversible defect and small mild non reversible infarct on Lexiscan stress on 09/12/2020. Hypertension Surgical History Surgical History Surgically constructed arteriovenous fistula Left upper arm History of colonoscopy History of colon polyps, internal hemorrhoids, and diverticulosis. History of esophagogastroduodenoscopy History of gastric erosions, gastric polyps, and duodenal AVMs. History of revascularization procedure of lower extremity (10/2019) Bilateral lower extremity stents per Dr. Carrillo. History of vascular surgery (06/12/13) Aorto bi-iliac bypass graft per Dr. Carrillo. Family History Family History Mother Alzheimer disease Father Emphysema of lung Social History Social History Social History: Surrogate medical decision maker: hay Lang. Code status: Full code. Smoking packs per day: 1 Smoking cigarettes per day: 20.0 Years smoked: 55 Smoking pack-years: 55.00 Smoking status: Former smoker Second hand tobacco smoke exposure: Yes Alcohol intake: never Substance use: never Substance use type: does not use Do You Feel Safe in your Home?: Yes Lack of Transportation: No Lack of Food: Never True Current Housing: I Have Housing Concerned About Future Housing: No Difficulty Paying Gas/Electric Bills: No Difficulty Paying for Meds: No Currently Unemployed: No Education: Associate Degree Difficulty w/ Childcare or Family Care: No Additional living arrangements comments: . Lives with her only son in [place]. Additional occupation/education comments: Retired from the [employer]. Spiritual care concerns: No Exam Narrative: GENERAL: Well-appearing, well-nourished, and in no acute distress. HEAD: Normocephalic, atraumatic. EYES: PERRLA and EOMI. ENT: Nares clear, no rhinorrhea or epistaxis. Mucous membranes moist. NECK: Supple. CHEST: Clear to auscultation. No respiratory distress. HEART: Regular rate and rhythm. No murmur heard. Normal peripheral pulses. ABDOMEN: Soft, nontender, nondistended, normal active bowel sounds. EXTREMITIES: Normal range of motion. No edema. SKIN: Warm, dry, no rash. NEURO: No focal deficits. Alert and oriented x3. PSYCH: Normal mood and affect. Course Vital Signs Vital signs: Vital Signs Temperature 36.9 C 08/17/24 02:24 Pulse Rate 103 H 08/17/24 02:24 Respiratory Rate 14 08/17/24 02:24 Blood Pressure 144/102 H 08/17/24 02:24 Pulse Oximetry 96 08/17/24 02:24 Oxygen Delivery Room Air 08/17/24 02:24 Temperature 36.9 C 08/17/24 02:24 Pulse Rate 96 08/17/24 02:42 Respiratory Rate 14 08/17/24 02:42 Blood Pressure 143/58 H 08/17/24 02:42 Pulse Oximetry 95 08/17/24 02:42 Oxygen Delivery Room Air 08/17/24 02:42 MDM - URI/Sore Throat Medical Records Attestation: I reviewed the patient's medical records. Lab Data Attestation: I reviewed the patient's lab results. Labs: Lab Results 08/17/24 Range/Units 02:40 Influenza A (RT-PCR) Negative (Negative) Influenza B (RT-PCR) Negative (Negative) RSV (RT-PCR) Negative (Negative) SARS-CoV-2 RNA (RT-PCR) Negative (Negative) Discharge Plan Discharge Clinical Impression: Acute viral syndrome Patient Disposition: Home Condition: Stable Instructions: Viral Syndrome (ED) Patient Language: Chilean Prescriptions: No Action aspirin 81 mg Tablet 81 mg PO DAILY isosorbide mononitrate 30 mg tablet extended release 24 hr 30 mg PO DAILY Qty: 30 0RF trazodone 50 mg tablet 50 mg PO HS omeprazole 40 mg capsule,delayed release(DR/EC) 40 mg PO DAILY oxybutynin chloride 5 mg tablet 5 mg PO HS melatonin 3 mg tablet 3 mg PO HS PRN (Reason: Sleep) ergocalciferol (vitamin D2) 1,250 mcg (50,000 unit) capsule 50,000 unit PO BID Brilinta 90 mg tablet 90 mg PO BID Patient Comments: Patient stated that it is not re-fillable. albuterol sulfate 90 mcg/actuation HFA aerosol inhaler 2 puff INHALATION Q6H PRN (Reason: Shortness Of Breath) lisinopril 20 mg tablet 20 mg PO DAILY atorvastatin 80 mg tablet 80 mg PO HS carvedilol 25 mg tablet 25 mg PO BIDWM nifedipine [Procardia XL] 30 mg Tablet Extended Release 24hr 60 mg PO DAILY Qty: 60 0RF Follow-up/Referrals: Teresa,MEERA Bates [Primary Care Provider] - Time of Disposition: 03:30
== END 2024-08-17 04:05 | disposition home or self-care (01) ==
PROVIDERS: Emergency Provider Family Medicine; PCP Nurse Practitioner Family
DX: B34.9 Viral infection, unspecified (principal); N18.6 End stage renal disease; Z99.2 Dependence on renal dialysis; Z79.82 Long term (current) use of aspirin; N25.81 Secondary hyperparathyroidism of renal origin; E78.5 Hyperlipidemia, unspecified; I50.40 Unspecified combined systolic (congestive) and diastolic (congestive) heart failure; I13.2 Hypertensive heart and chronic kidney disease with heart failure and with stage 5 chronic kidney disease, or end stage renal disease; Z87.891 Personal history of nicotine dependence; Z20.822 Contact with and (suspected) exposure to COVID-19
CPT/HCPCS: 87637; 99283

== ENCOUNTER 2024-08-20 21:12 | Inpatient (IN) | payer MEDICARE, BC, SELFPAY ==
--- NOTE | ~2024-08-20 | XR_ITS ---
EXAMINATION: XR chest 1V portable Exam Date/Time: 08/20/2024 22:05 CDT HISTORY: Weakness Comparison: 08/12/2024. RESULT: Lines, tubes, and devices: Upper abdominal surgical clips. Lungs and pleura: No focal consolidation or pneumothorax. Mild right costophrenic angle blunting. Li corin bibasilar scar/atelectasis. Emphysematous change. Cardiomediastinal silhouette: Stable. Other: No acute osseous or upper abdominal finding. IMPRESSION: Persistent small right pleural effusion. Reviewed, dictated and finalized at location K.
--- OUTSIDE RECORDS SUMMARY | 2024-08-20 21:14 | XMS_ITS | CONTINUITY OF CARE DOCUMENT ---
Author Name jeremy luna Address Unknown Organization [facility] Address [address] [address] [place] [address] Phone [phone] Care Team Providers Care Gui Developer Name Role Phone Justin CABRERA, Louisa Menendez [...] In-person encounter Office Visit Louisa Anderson MD [place] [facility] CAD - In-person encounter Office Visit Louisa Anderson MD [place] [facility] End stage renal disease -on dialysis - In-person encounter Office Visit Louisa Anderson MD [place] [facility] Cardiology examinationCHF - systolicHTN essentialLeg edemaSARS-associated [...] Ashu er height E&M 61 [in_i] Nimo Tripathihsaq marser ALLERGIES Allergy Name Onset Date Reaction [...] TABLET BY MOUTH EVERY DAY AT NIGHT [facility] amlodipine 10 mg tablet active TAKE 1 TABLET BY MOUTH EVERY DAY Sheryl Louis pantoprazole 40 mg tablet,delayed release (DR/EC) active TAKE 1 TABLET BY MOUTH EVERY DAY Claudio Nelson MD Brilinta 90 mg tablet completed Take 1 tablet by mouth twice a day - [facility] Plavix 75 mg tablet completed TAKE [...] tablet by mouth once a day Casandra Boyer'Rodnye atorvastatin 20 mg tablet completed Take 1 [...] Nimo olivarez cigarette use yes Nimo Velasco [facility] smoking status Former smoker Nimo bell [employer] Payer name Policy type / Coverage type [place] [employer] party ID [facility] Blue [facility] [id number] ADVANCE DIRECTIVES Name Date DISCUSSED - NO DECISION MADE TREATMENT PLAN Date Name Performer [id number],C, B P today: 154/61 P rior BP: [...] mouth twice a day Louisa Anderson MD [id number],S,U nderwent complex PCI or RCA with Omar Sargent at [facility]. O n aspirin brillinta. Louisa Anderson MD [id number],S,E lectrolytes from dialysis report look good. K 3.5. Sees Dr. Tiesha Anderson MD [id number],C,C ONCLUSIONS: 1 . Normal left ventricular systolic [...] is mild pulmonic regurgitation. Louisa Anderson MD [id number],C, L FEV was 50% on echo on 08/29/21 at [facility]. Will recheck echo since revascularzation H er updated medication list for this problem includes: B rilllinta 90 BID November 20, 2021 E cho most recent shows EF is up to 55%. Louisa Anderson MD [id number],C, S odium restriction and dialysis Louisa Anderson MD [id number],C, H as had multiple admissions has abnormal EKG consistent with prior anterior wall DE will arrange for lexiscan stress R EMAINS ON DAPT WITH ASA BRILINTA FOR THE ALYSE STENTS WHICH WERE PLACED IN THE RCA 09/02/21 Louisa Anderson MD [id number],C,switched to a Dr Motley for HD Louisa Anderson MD [id number],C, Continue BP med rx currently on entresto, hydralyzine. W ill stop Losartan since she is currently on Entresto BP today: 101/48 P rior BP: 156/77 (05/05/2021) J une 2021 t olerating ientresto and has done well with her BP will contine Louisa Anderson MD [id number],S,See JOVANY Fritz on October 09 Louisa Anderson MD [id number],S, Continue BP med rx currently on entresto, hydralyzine. W ill stop Losartan since she is currently on Entresto BP today: 101/48 P rior BP: 156/77 (05/05/2021) Louisa Anderson MD [id number],S,L FEV was 50% on echo on 08/29/21 at [facility]. Will recheck echo since revascularzation H [...] mouth twice a day Louisa Anderson MD [id number],C,H as had multiple admissions has abnormal EKG consistent with prior anterior wall DE will arrange for lexiscan stress Louisa Anderson MD [id number],S,Sodium restri ction and diuretics Louisa Anderson MD [id number],C,Vaccinated Sa oscar Anderson MD [id number],C,E F 24% according to her son has [...] lifevest in the meantime. Louisa Anderson MD [id number],C, B P today: 156/77 C ontinue BP [...] PCI or RCA with Omar Sargent at [facility]. O n aspirin brillinta. Louisa Anderson [...] abnormal EKG consistent with prior anterior wall DE will arrange for lexiscan stress R EMAINS [...] 101/48 P rior BP: 156/77 (05/05/2021) J [facility] 2021 t olerating ientresto and [...] abnormal EKG consistent with prior anterior wall DE will arrange for lexiscan stress Louisa Anderson [...]
--- OUTSIDE RECORDS SUMMARY | 2024-08-20 21:14 | XMS_ITS | Encounter Summary ---
Author Organization [facility] Address [address] [place] [address] Care Team Providers Care Guest Experience Representative Name Role Phone Louisa Anderson MD Unavailable [phone] Juan Luis Fritz MD Unavailable [phone] Joshua Motley MD Unavailable [phone] Addie Moore NP Primary Care Provider [phone] Wily Tolbert RN Unavailable [phone] Encounter Details Date Type Department Care Team (Late st Contact Info) Description 08/01/2024 Results Follow-Up [facility] Primary Care at [address] [address] Addie Moore NP [address] [place] [address] [address] [place] [address] Social History Tobacco Use Types Packs/Day Years Used Date Smoking Tobacco: Former Cigarettes Q uit: 10/01/2020 Smokeless Tobacco: Never Alcohol Use Standard Drinks/Week Comments Yes 0 (1 standard drink = 0.6 oz pur e alcohol) [facility] Utilities Answer Date Recorded In the [...] often do you attend chur ch or christianity services? Never 04/20/2024 Do you belong to any clubs o r organizations such as hinduism groups, unions, fraternal or athletic groups, or [...] any time in the past 12 m [facility], were you homeless or living in a mcfp (including now)? No 04/20/2024 Personal Safety Answer [...] on filedocumented in this encounter Care Teams Guest Experience Representative Relationship Specialty Start Date End Date Addie Moore NP [address] [place] [address] PCP - General Family Medicine 04/14/23 Louisa Anderson MD [address] [place] [address] Consulting Physician Cardiovascular Disease 09/09/21 Juan Luis Fritz MD [address] [place] [address] Consulting Physician Nephrology 09/09/21 Joshua Motley MD [address] [place] [address] Referring Physician Nephrology 02/15/22 Wily Tolbert RN [address] [place] [address] [place] [address] Tar Boiler 1/20/25 documented as of this encounter
--- OUTSIDE RECORDS SUMMARY | 2024-08-20 21:14 | XMS_ITS ---
Author Organization [facility] [address] Address [address] [place] [address] Care Team Providers Care Prop Maker Name Role Phone Louisa Anderson MD Unavailable Juan Luis Fritz MD Unavailable [phone] Joshua Motley MD Unavailable [phone] Addie Moore NP Primary Care Provider [phone] Wily Tolbert RN Unavailable [phone] Dialysis Access Sites Type Status Location Placement [...] (PRINIVIL,[place]) 20 mg tabletIndicatio ns:started by back strip machine operator Dr. Motley - 06/01. off entresto Take 1 tablet (20 mg total) by mouth daily 90 tablet 3 06/02/19 24 Active Additional Information Patient taking differently: 40 mgoral Daily, Indications: started by back strip machine operator Dr. Motley - 06/01. off entresto, Reported [...] 05/02 Assessment & Plan (05/02/2024 9:21 AM SANDER MACHINE): -Recommended: Healthy diet. Avoiding junk food/fast food. [...] needed Assessment & Plan (05/02/2023 10:59 AM SANDER MACHINE): Patient Counseling: --Nutrition: Stressed importance of moderation [...] 08/2021 Assessment & Plan (05/02/2024 9:29 AM SANDER MACHINE): Has albuterol inhaler to use prn. She [...] this month where she ended up in [facility] for 2 days with a COPD exacerbation. She was treated with IV Solu-Medrol and nebulizers. She was given prednisone and Levaquin upon discharge but states that she read side effects and threw away 1 of the prescriptions. I think it was the prednisone but I am not sure. Assessment & Plan (04/14/2023 8:31 PM SANDER MACHINE): Not currently on any medications. Denies any difficulty with shortness of breath. Not currently a smoker. ESRD on dialysis 02/18/2022 Assessment & Plan (05/02/2024 9:26 AM SANDER MACHINE): Stable. Continues on dialysis 3 times weekly. Doing well today. States she has some bad days, but doing well Assessment & Plan (10/31/2023 10:01 AM CDT): Stable. Continues on dialysis 3 times weekly. I encouraged her to talk to her back strip machine operator about the increased swelling in her ankles as well. Assessment & Plan (05/02/2023 11:02 AM SANDER MACHINE): Continues on dialysis 3 times week. Patient is considering moving to [place]. She is aware she has to set up health care before moving. She is considering moving into assisted living up there. She is currently on a waiting list Assessment & Plan (04/14/2023 8:30 PM SANDER MACHINE): Currently on dialysis. Dr. Motley. 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 Stable. Blood pressure within [...] October Assessment & Plan (06/05/2023 6:05 PM SANDER MACHINE): Continue all medications. Start lisinopril 20 mg once daily Assessment & Plan (05/02/2023 11:04 AM SANDER MACHINE): Blood pressure is improved today and is not hypotensive. Will continue current medication and continue to monitor. Assessment & Plan (04/14/2023 8:25 PM SANDER MACHINE): Apparently long history of hypertension. ON multiple antihypertensive medications and now on dialysis. However, she is also on entresto. Blood pressure is low today. Asymptomatic. Will try discontinuing nifedipine for the hypotension and keep her on all other medication, which we spend a considerable amount of time on reconciling and discussing. I asked her to also run this change by her back strip machine operator. Will be referring to cardiology as well Chronic combined systolic and diastolic heart fa ilure 10/15/2020 Assessment & Plan (05/02/2024 9:28 AM SANDER MACHINE): Improved. No signs of acute heart failure. Last echo 04/2023 with EF 72% Assessment & Plan (11/16/2023 8:38 PM CDT): I think she had some fluid overload which may have improved with dialysis, and thus her shortness of breath improved. Her back strip machine operator also increased her coreg to 25mg bid. [...] for evaluation. I would place referral to [facility] back in April but did not see any follow-up or scheduling for that referral Assessment & Plan (06/05/2023 6:05 PM SANDER MACHINE): Improved. Discontinue Entresto. Start lisinopril 20 mg once daily. We discussed this with her in detail and why we are starting lisinopril and why it is important to stay on all of her other medications. Assessment & Plan (04/14/2023 8:27 PM SANDER MACHINE): Reviewed last heart cath and last echo [...] drink = 0.6 oz pur e alcohol) [facility] ARXities Answer Date Recorded In the past 12 months has [employer], gas, oil, or water [employer] threatened to shut off services in your [...] often do you attend chur ch or islam services? Never 04/20/2024 Do you belong to any clubs o r organizations such as hoahaoism groups, unions, fraternal or athletic groups, or [...] any time in the past 12 m [facility], were you homeless or living in a assisted (including now)? No 04/20/2024 Personal Safety Answer [...] signed by Nico NEGRON T: Report ID: [id number] Reading Location: [id number] Procedure Note Nico Leyva MD - 07/31/2024 [...] signed by Nico NEGRON T: Report ID: [id number] Reading Location: [id number] Addie A. Moore BELLPERSON IMG XR PROCEDURES Final Resul t * [...] BLOOD ORDERABLES Final Re sult DOLORES BETH [address] [place] [address] * (ABNORMAL) Pro B-type natriuretic peptide (07/30/2024 [...] ORDERABLES Final Re sult Performing Organization Address [facility] Co de Phone Number DOLORES BETH [address] [place] [address] * (ABNORMAL) CBC with auto differential (07/30/2024 4:03 PM CDT) Pathologist [facility] WBC 7.24 3.80 - 9.90 K/cumm Hgb 13.9 11.9 - 15.5 g/dL [facility] Hct 40.6 35.6 - 45.5 % [facility] Plt 196 150 - 400 K/cumm [facility] MPV 9.3 9.1 - 12.3 fL [facility] RBC 5.01 3.90 - 5.20 M/cumm [facility] MCV 81.0(L) 81.3 - 96.4 fL [facility] MCH 27.7 27.1 - 33.3 pg [facility] MCHC 34.2 32.3 - 35.7 g/dL [facility] RDW CV 17.5(H) 11.1 - 14.9 % [facility] RDW SD 51.3(H) 35.7 - 48.1 fL [facility] NRBC abs 0.00 0.00 - 0.01 K/cumm [facility] Blood 07/30/2024 4:03 PM CDT 07/30/2024 9:13 PM CDT Addie Moore NP LAB BLOOD ORDERABLES Final Re sult Performing Organization Address [facility] Co de Phone Number DOLORES BETH [address] [place] [address] * Hepatitis panel, acute (08/29/2021 2:30 PM CDT) Pathologist [facility] Hep A IgM Nonreactive Nonreactive [facility] Comment: Interpretive Data: If Hep A IgM Ab is reported as Equivocal, a new sample should be drawn in two weeks for testing. Current interpretive data was last revised on 19. Hep B core IgM Nonreactive Nonreactive [facility] Comment: Interpretive Data If HepB Core [...] GENERAL ORD ERABLES Final Result DOLORES BETH [address] Department of Laboratories [place], [place] [id number] from Last 3 Months or Most Recently Relevant to Health Maintenance
--- OUTSIDE RECORDS SUMMARY | 2024-08-20 21:14 | XMS_ITS | Referral Summary ---
Author Organization [facility] [address] Address [address] [place] [address] Care Team Providers Care Shoe Clerk Name Role Phone Louisa Anderson MD Unavailable Juan Luis Fritz MD Unavailable [phone] Joshua Motley MD Unavailable [phone] Addie Moore NP Primary Care Provider [phone] Wily Tolbert RN Unavailable [phone] Encounters Date Type Department Care Team Description 08/20/2024 Nurse Triage [facility] Primary Care at [address] [address] Addie Moore NP 08/15/2024 9:00 AM CDT Office Visit [facility] Primary Care at [address] [address] Addie Moore NP Hospital discharge follow-up (Primary Dx) 08/13/2024 Telephone [facility] Primary Care at [address] [address] Addie Moore NP Appointment Request 08/01/2024 Results Follow-Up [facility] at [address] [address] Addie Moore NP 07/31/2024 Results Follow-Up [facility] at [address] [address] Addie Moore NP 07/30/2024 4:03 PM CDT - 07/30/2024 11:59 PM CDT Hospital Encounter [address] [address] Chronic combined systolic and diastolic heart failure (HCC); Acute cough Discharge Disposition: Discharge to home or self care 07/30/2024 4:20 PM CDT Ancillary Procedure [facility] at [address] [address] Acute cough 07/30/2024 4:00 PM CDT Lab [facility] at [address] [address] 07/30/2024 3:30 PM CDT Office Visit [facility] at [address] [address] Addie Moore NP ESRD on dialysis (HCC) [...] needed (swelling) 04/14/19 24 Active lisinopriL (PRINIVIL,ZESTR WI) 20 mg tabletIndicatio ns:started by velvet steamer Dr. Motley - 06/01. off entresto Take 1 tablet (20 mg total) by mouth daily 90 tablet 3 06/02/19 24 Active Additional Information Patient taking differently: 40 mgoral Daily, Indications: started by velvet steamer Dr. Motley - 06/01. off entresto, Reported [...] 05/02 Assessment & Plan (05/02/2024 9:21 AM SURVEILLANCE AGENT): -Recommended: Healthy diet. Avoiding junk food/fast food. [...] needed Assessment & Plan (05/02/2023 10:59 AM SURVEILLANCE AGENT): Patient Counseling: --Nutrition: Stressed importance of moderation [...] 08/2021 Assessment & Plan (05/02/2024 9:29 AM SURVEILLANCE AGENT): Has albuterol inhaler to use prn. She [...] this month where she ended up in [facility] for 2 days with a COPD exacerbation. She was treated with IV Solu-Medrol and nebulizers. She was given prednisone and Levaquin upon discharge but states that she read side effects and threw away 1 of the prescriptions. I think it was the prednisone but I am not sure. Assessment & Plan (04/14/2023 8:31 PM SURVEILLANCE AGENT): Not currently on any medications. Denies any difficulty with shortness of breath. Not currently a smoker. ESRD on dialysis 02/18/2022 Assessment & Plan (05/02/2024 9:26 AM SURVEILLANCE AGENT): Stable. Continues on dialysis 3 times weekly. Doing well today. States she has some bad days, but doing well Assessment & Plan (10/31/2023 10:01 AM CDT): Stable. Continues on dialysis 3 times weekly. I encouraged her to talk to her velvet steamer about the increased swelling in her ankles as well. Assessment & Plan (05/02/2023 11:02 AM SURVEILLANCE AGENT): Continues on dialysis 3 times week. Patient is considering moving to [place]. She is aware she has to set up health care before moving. She is considering moving into assisted living up there. She is currently on a waiting list Assessment & Plan (04/14/2023 8:30 PM SURVEILLANCE AGENT): Currently on dialysis. Dr. Motley. Hypertension due to end stage renal disease on d ialysis 02/11/2021 Assessment & Plan (05/02/2024 9:29 AM SURVEILLANCE AGENT): Managed by nephrology. Stable. Blood pressure within [...] October Assessment & Plan (06/05/2023 6:05 PM SURVEILLANCE AGENT): Continue all medications. Start lisinopril 20 mg once daily Assessment & Plan (05/02/2023 11:04 AM SURVEILLANCE AGENT): Blood pressure is improved today and is not hypotensive. Will continue current medication and continue to monitor. Assessment & Plan (04/14/2023 8:25 PM SURVEILLANCE AGENT): Apparently long history of hypertension. ON multiple antihypertensive medications and now on dialysis. However, she is also on entresto. Blood pressure is low today. Asymptomatic. Will try discontinuing nifedipine for the hypotension and keep her on all other medication, which we spend a considerable amount of time on reconciling and discussing. I asked her to also run this change by her velvet steamer. Will be referring to cardiology as well Chronic combined systolic and diastolic heart fa ilure 10/15/2020 Assessment & Plan (05/02/2024 9:28 AM SURVEILLANCE AGENT): Improved. No signs of acute heart failure. Last echo 04/2023 with EF 72% Assessment & Plan (11/16/2023 8:38 PM CDT): I think she had some fluid overload which may have improved with dialysis, and thus her shortness of breath improved. Her velvet steamer also increased her coreg to 25mg bid. [...] for evaluation. I would place referral to [facility] back in April but did not see any follow-up or scheduling for that referral Assessment & Plan (06/05/2023 6:05 PM SURVEILLANCE AGENT): Improved. Discontinue Entresto. Start lisinopril 20 mg once daily. We discussed this with her in detail and why we are starting lisinopril and why it is important to stay on all of her other medications. Assessment & Plan (04/14/2023 8:27 PM SURVEILLANCE AGENT): Reviewed last heart cath and last echo [...] 05/02/2024 Assessment & Plan (03/20/2024 7:31 AM SURVEILLANCE AGENT): Medication review done. Patient discharge instructions from [facility] show her still on atorvastatin 80mg and [...] Motley or his office , nephrology at [facility] to discuss med rec. Headache 04/27/2023 05/02/2024 Moderate malnutrition 09/03/20212023 Leg edema 05/05/2021 05/02/2024 Recurrent pleural effusion on right 02/11/2021 04/14/2023 Ischemic cardiomyopathy 10/15/2020 02/2 05/2023 Assessment & Plan (05/02/2023 11:05 AM SURVEILLANCE AGENT): History of ischeic cardiomyopathy. We had ordered a repeat echocardiography at last office visit. She now has it scheduled at [place] [facility] stress test abnormal 10/15/2020 05/02/2024 Chronic [...] drink = 0.6 oz pur e alcohol) [facility] Utilities Answer Date Recorded In the past 12 months has [employer] gas, oil, or water [employer] threatened to shut off services in your [...] often do you attend chur ch or faith services? Never 04/20/2024 Do you belong to any clubs o r organizations such as advent groups, unions, fraternal or athletic groups, or [...] any time in the past 12 m [facility], were you homeless or living in [...] on file Medical Devices Implanted Type Area Poured Pipe Maker Device Identifier Shelf Expiration Date Model / Serial / Lot [employer] [place] Intering 4-7mm 45cm 38cm Radial Support Stretch Line [id number] - [id number] - [id number] Implanted:Qty: 1 on 03/03/2022 by David Drummond MD at [facility] Graft Left: Arm W[employer] [id number] 05/11/2026 [id number] / [id number] / Description:AV fistula graft [employer] Ind[employer] Synergy Xd Monorail 3mm 12mm 144cm Delivery System 1 Access Port [id number] - [id number] Implanted:Qty: 1 on 09/02/2021 by Claudio Nelson MD at [facility] Stent [employer] Indra [id number] / / [employer] Synergy Xd 3.5mm 48mm System Coronary Stent Everol[employer] [id number] - [id number] Implanted:Qty: 1 on 09/02/2021 by Claudio Nelson MD at [facility] Stent [employer] Indra [id number] / / Description:Mid RCA [employer] Ind[employer] Synergy Xd Monorail 3mm 38mm 144cm Delivery System 1 Access Port [id number] - [id number] Implanted:Qty: 1 on 09/02/2021 by Claudio Nelson MD at [facility] Stent [employer] Indra [id number] / / Description:Distal RCA betwe en stents [employer] Synergy Xd Monorail 3.5mm 12mm 144cm Delivery System 1 Access [id number] - [id number] Implanted:Qty: 1 on 09/02/2021 by Claudio Nelson MD at [facility] Stent [employer] Indra [id number] / / [employer] Vascpak Safesheath D-Pro 15.5fr 24cm Kit Catheter [id number] - [id number] Implanted:Qty: 1 on 09/04/2021 at [facility] [employer] 09/09/2023 [id number] / / [id number] Procedures Procedure Name Priority Date/Time Associated Diagnosis [...] signed by Nico NEGRON T: Report ID: [id number] Reading Location: [id number] Procedure Note Nico Leyva MD - 07/31/2024 [...] Nico Leyva M.D. MJ T: Report ID: [id number] Reading Location: [place] [address] Addie Moore PERSONALIZED LIVING MANAGER NURSE IMG XR PROCEDURES Final Resul t * [...] revised on 2017. Lymphocyte pct 12.7 % [facility] Comment: Interpretive Data Percent cell count reference ranges are not reported, since discordance with absolute values may lead to misinterpretation of CBC data. Current Interpretive Data was last revised on 2017. Monocyte pct 9.5 % [facility] Comment: Interpretive Data Percent cell count reference ranges are not reported, since discordance with absolute values may lead to misinterpretation of CBC data. Current Interpretive Data was last revised on 2017. Eosinophil pct 5.9 % [facility] Comment: Interpretive Data Percent cell count reference ranges are not reported, since discordance with absolute values may lead to misinterpretation of CBC data. Current Interpretive Data was last revised on 2017. Basophil pct 0.8 % [facility] Comment: Interpretive Data Percent cell count reference ranges are not reported, since discordance with absolute values may lead to misinterpretation of CBC data. Current Interpretive Data was last revised on 2017. Blood 07/30/2024 4:03 PM CDT 07/30/2024 9:13 PM CDT Addie Moore NP LAB BLOOD ORDERABLES Final Re sult [facility] [address] Department [place] [address] * (ABNORMAL) Pro B-type natriuretic peptide (07/30/2024 [...] NP LAB BLOOD ORDERABLES Final Re sult [facility] [address] [place] [address] * (ABNORMAL) CBC with auto differential (07/30/2024 4:03 PM CDT) WBC 7.24 3.80 - 9.90 K/cumm Hgb 13.9 11.9 - 15.5 g/dL [facility] Hct 40.6 35.6 - 45.5 % [facility] Plt 196 150 - 400 K/cumm [facility] MPV 9.3 9.1 - 12.3 fL [facility] RBC 5.01 3.90 - 5.20 M/cumm [facility] MCV 81.0(L) 81.3 - 96.4 fL [facility] MCH 27.7 27.1 - 33.3 pg [facility] MCHC 34.2 32.3 - 35.7 g/dL [facility] RDW CV 17.5(H) 11.1 - 14.9 % [facility] RDW SD 51.3(H) 35.7 - 48.1 fL [facility] NRBC abs 0.00 0.00 - 0.01 K/cumm [facility] Blood 07/30/2024 4:03 PM CDT 07/30/2024 9:13 PM CDT Addie Moore NP LAB BLOOD ORDERABLES Final Re sult Performing Organization Address City/[facility]/ZIP Co de Phone Number [facility] [address] [address] * Hepatitis panel, acute (08/29/2021 2:30 PM CDT) Hep A IgM Nonreactive Nonreactive [facility] [...] on 19. Hep C Ab Nonreactive Nonreactive [facility] Comment: Interpretive Data Nonreactive: Antibodies to [...] last revised on 2019. HepBsAg Nonreactive Nonreactive [facility] Blood 08/29/2021 2:30 PM CDT 08/29/2021 2:36 PM CDT Juan Luis Fritz MD LAB MICROBIOLOGY - GENERAL ORD ERABLES Final Result Performing Organization Address City/[facility]/ZIP Co de Phone Number [facility] [address] Department [employer] [place], [place] [phone] from Last 3 Months or Most Recently Relevant to Health Maintenance Insurance [facility] FEDERAL MEDICARE MEDICARE [facility] FEDERAL MEDICARE [facility] MEDICARE Advance Directives For more information, please contact: [phone] * Full Code (Latest Code Status on File) Date Activated Date Inactivated Comments 05/19/2022 9:36 AM 05/20/2022 5:19 AM * Full Code Date Activated Date Inactivated Comments 08/25/2021 9:12 PM 09/09/2021 6:36 PM Healthcare Agents on File Name Relationship Healthcare Agent [facility] Communication Al Tiffany Son Health Care Agent Care Teams Shoe Clerk Relationship Specialty Start Date End Date Addie Moore NP [address] [place] [address] PCP - General Family Medicine 04/14/23 [id number]|2024-08-21 02:43:08|2024-08-21 02:43:08|PC.NURSE||||"This RN spoke with pts son and updated about pt POC"
--- OUTSIDE RECORDS SUMMARY | 2024-08-20 21:14 | XMS_ITS | Clinical Summary ---
Author Organization [facility] [address] Address [address] [place] [address] Care Team Providers Care Health Type Technician Name Role Phone Louisa Anderson MD Unavailable Juan Luis Fritz MD Unavailable [phone] Joshua Motley MD Unavailable [phone] Addie Moore NP Primary Care Provider Wily Tolbert RN Unavailable [phone] Allergies Active Allergy Reactions Criticality Noted Date [...] (PRINIVIL,ZESTR [place]) 20 mg tabletIndicatio ns:started by kinesiotherapist Dr. Motley - 06/01. off entresto Take 1 tablet (20 mg total) by mouth daily 90 tablet 3 06/02/19 24 Active Additional Information Patient taking differently: 40 mgoral Daily, Indications: started by kinesiotherapist Dr. Motley - 06/01. off entresto, Reported [...] well today. No further symptoms. We're calling [facility] for ER records. No medication changes. Follow up as scheduled. Medicare annual wellness visit, subsequent 05/02 Assessment & Plan (05/02/2024 9:21 AM SUPERVISOR WATERPROOFING): -Recommended: Healthy diet. Avoiding junk food/fast food. [...] needed Assessment & Plan (05/02/2023 10:59 AM SUPERVISOR WATERPROOFING): Patient Counseling: --Nutrition: Stressed importance of moderation [...] 08/2021 Assessment & Plan (05/02/2024 9:29 AM SUPERVISOR WATERPROOFING): Has albuterol inhaler to use prn. She [...] this month where she ended up in [facility] for 2 days with a COPD exacerbation. She was treated with IV Solu-Medrol and nebulizers. She was given prednisone and Levaquin upon discharge but states that she read side effects and threw away 1 of the prescriptions. I think it was the prednisone but I am not sure. Assessment & Plan (04/14/2023 8:31 PM SUPERVISOR WATERPROOFING): Not currently on any medications. Denies any difficulty with shortness of breath. Not currently a smoker. ESRD on dialysis 02/18/2022 Assessment & Plan (05/02/2024 9:26 AM SUPERVISOR WATERPROOFING): Stable. Continues on dialysis 3 times weekly. Doing well today. States she has some bad days, but doing well Assessment & Plan (10/31/2023 10:01 AM CDT): Stable. Continues on dialysis 3 times weekly. I encouraged her to talk to her kinesiotherapist about the increased swelling in her ankles as well. Assessment & Plan (05/02/2023 11:02 AM SUPERVISOR WATERPROOFING): Continues on dialysis 3 times week. Patient is considering moving to [place]. She is aware she has to set up health care before moving. She is considering moving into assisted living up there. She is currently on a waiting list Assessment & Plan (04/14/2023 8:30 PM SUPERVISOR WATERPROOFING): Currently on dialysis. Dr. Motley. 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 Stable. Blood pressure within [...] October Assessment & Plan (06/05/2023 6:05 PM SUPERVISOR WATERPROOFING): Continue all medications. Start lisinopril 20 mg once daily Assessment & Plan (05/02/2023 11:04 AM SUPERVISOR WATERPROOFING): Blood pressure is improved today and is not hypotensive. Will continue current medication and continue to monitor. Assessment & Plan (04/14/2023 8:25 PM SUPERVISOR WATERPROOFING): Apparently long history of hypertension. ON multiple antihypertensive medications and now on dialysis. However, she is also on entresto. Blood pressure is low today. Asymptomatic. Will try discontinuing nifedipine for the hypotension and keep her on all other medication, which we spend a considerable amount of time on reconciling and discussing. I asked her to also run this change by her kinesiotherapist. Will be referring to cardiology as well Chronic combined systolic and diastolic heart fa ilure 10/15/2020 Assessment & Plan (05/02/2024 9:28 AM SUPERVISOR WATERPROOFING): Improved. No signs of acute heart failure. Last echo 04/2023 with EF 72% Assessment & Plan (11/16/2023 8:38 PM CDT): I think she had some fluid overload which may have improved with dialysis, and thus her shortness of breath improved. Her kinesiotherapist also increased her coreg to 25mg bid. [...] for evaluation. I would place referral to [facility] back in April but did not see any follow-up or scheduling for that referral Assessment & Plan (06/05/2023 6:05 PM SUPERVISOR WATERPROOFING): Improved. Discontinue Entresto. Start lisinopril 20 mg once daily. We discussed this with her in detail and why we are starting lisinopril and why it is important to stay on all of her other medications. Assessment & Plan (04/14/2023 8:27 PM SUPERVISOR WATERPROOFING): Reviewed last heart cath and last echo [...] 05/02/2024 Assessment & Plan (03/20/2024 7:31 AM SUPERVISOR WATERPROOFING): Medication review done. Patient discharge instructions from [facility] show her still on atorvastatin 80mg and [...] Motley or his office , nephrology at [facility] to discuss med rec. Headache 04/27/2023 05/02/2024 Moderate malnutrition 09/03/20212023 Leg edema 05/05/2021 05/02/2024 Recurrent pleural effusion on right 02/11/2021 04/14/2023 Ischemic cardiomyopathy 10/15/202005/13 Assessment & Plan (05/02/2023 11:05 AM SUPERVISOR WATERPROOFING): History of ischeic cardiomyopathy. We had ordered a repeat echocardiography at last office visit. She now has it scheduled at [facility] Cardiovascular stress test abnormal 10/15/2020 05/02/2024 Chronic kidney disease 10/15/202004/14 Encounters Date Type Department Care Team Description 08/20/2024 Nurse Triage [facility] Primary Care at [address] [address] Addie Moore NP 08/15/2024 9:00 AM CDT Office Visit [facility] Primary Care at [address] [address] Addie Moore NP Hospital discharge follow-up (Primary Dx) 08/13/2024 Telephone [facility] Primary Care at [address] [address] Addie Moore NP Appointment Request 08/01/2024 Results Follow-Up [facility] Primary Care at [address] [address] Addie Moore NP 07/31/2024 Results Follow-Up [facility] Primary Care at [address] [address] Addie Moore NP 07/30/2024 4:20 PM CDT Ancillary Procedure [facility] Imaging at [address] [address] Acute cough 07/30/2024 4:03 PM CDT - 07/30/2024 11:59 PM CDT Hospital Encounter [address] [address] Chronic combined systolic and diastolic heart failure (HCC); Acute cough Discharge Disposition: Discharge to home or self care 07/30/2024 4:00 PM CDT Lab [facility] Outpatient Lab at [address] [address] 07/30/2024 3:30 PM CDT Office Visit [facility] Primary Care at [address] [address] Addie Moore NP ESRD on [...] CHF (congestive heart failure) (HCC) Hemodialysis patient zac ibarra sat Recurrent pleural effusion on right 02/11/2021 [...] drink = 0.6 oz pur e alcohol) [facility] Utilities Answer Date Recorded In the past 12 months has th e electric, gas, oil, or water company [...] often do you attend chur ch or temple services? Never 04/20/2024 Do you belong to [...] time in the past 12 m [facility], were you homeless or living in [...] Vaccine (1 of 2) 1994 Covid-19 Vaccine (2023- season) 2024 12/18/2023, 01/05/2023, 01/05/2023, Additional history [...] Completed 05/02/2024 Medical Devices Implanted Type Area Charge Lpn Device Identifier Shelf Expiration Date Model / Serial / Lot [employer] Udall Intering 4-7mm 45cm 38cm Radial Support Stretch Line [id number] - [id number] - [id number] Implanted:Qty: 1 on 03/03/2022 by David Drummond MD at [facility] Graft Left: Arm [employer] [id number] 05/11/2026 [id number] / [id number] / Description:AV fistula graft [employer] Synergy Xd Monorail 3mm 12mm 144cm Delivery System 1 Access Port [id number] - [id number] Implanted:Qty: 1 on 09/02/2021 by Claudio Nelson MD at [facility] Stent [employer] [id number] / / [employer] Synergy Xd 3.5mm 48mm System Coronary Stent Everolimus [id number] - [id number] Implanted:Qty: 1 on 09/02/2021 by Claudio Nelson MD at [facility] Stent [employer] [id number] / / Description:Mid RCA [employer] Synergy Xd Monorail 3mm 38mm 144cm Delivery System 1 Access Port [id number] - [id number] Implanted:Qty: 1 on 09/02/2021 by Claudio Nelson MD at [facility] Stent [employer] [id number] / / Description:Distal RCA betwe en stents [employer] Synergy Xd Monorail 3.5mm 12mm 144cm Delivery System 1 Access [id number] - [id number] Implanted:Qty: 1 on 09/02/2021 by Claudio Nelson MD at [facility] Stent [employer] [id number] / / [employer] Vascpak Safesheath D-Pro 15.5fr 24cm Kit Catheter [id number] - [id number] Implanted:Qty: 1 on 09/04/2021 at [facility] [employer] 09/09/2023 [id number] / / [id number] Procedures Procedure Name Priority Date/Time Associated Diagnosis [...] Nico Leyva M.D. MJ T: Report ID: [id number] Reading Location: [place] [address] Procedure Note Nico Leyva MD - 07/31/2024 [...] Nico Leyva M.D. MJ T: Report ID: [id number] Reading Location: [place] [address] Addie Moore [facility] IM[facility] XR PROCEDURES Final Resul t * Differential, auto (07/30/2024 4:03 PM CDT) Neutrophil abs 5.11 1.50 - 6.50 K/cumm Imm gran abs 0.03 0.00 - 0.10 K/cumm [facility] Lymphocyte abs 0.92 0.80 - 3.30 K/cumm CERNER Monocyte abs 0.69 0.20 - 0.80 K/cumm [facility] Eosinophil abs 0.43 0.00 - 0.50 K/cumm [facility] Basophil abs 0.06 0.00 - 0.10 K/cumm C[facility]ER Neutrophil pct 70.7 % [facility] Comment: Interpretive Data Percent cell count reference ranges are not reported, since discordance with absolute values may lead to misinterpretation of CBC data. Current Interpretive Data was last revised on 2017. Imm gran pct 0.4 % [facility] Comment: Interpretive Data Percent cell [...] revised on 2017. Monocyte pct 9.5 % [facility] Comment: Interpretive Data Percent cell count reference ranges are not reported, since discordance with absolute values may lead to misinterpretation of CBC data. Current Interpretive Data was last revised on 2017. Eosinophil pct 5.9 % [facility] Comment: Interpretive Data Percent [...] LAB BLOOD ORDERABLES Final Re sult [facility] [address] [address] Department [place] [address] * (ABNORMAL) Pro B-type natriuretic peptide (07/30/2024 [...] NP LAB BLOOD ORDERABLES [facility] [address] [address] Department [place] [address] * (ABNORMAL) CBC with auto differential (07/30/2024 4:03 PM CDT) WBC 7.24 3.80 - 9.90 K/cumm Hgb 13.9 11.9 - 15.5 g/dL [facility] Hct 40.6 35.6 - 45.5 % [facility] Plt 196 150 - 400 K/cumm [facility] MPV 9.3 9.1 - 12.3 fL [facility] RBC 5.01 3.90 - 5.20 M/cumm [facility] MCV 81.0(L) 81.3 - 96.4 fL [facility] MCH 27.7 27.1 - 33.3 pg [facility] MCHC 34.2 32.3 - 35.7 g/dL [facility] RDW CV 17.5(H) 11.1 - 14.9 % [facility] RDW SD 51.3(H) 35.7 - 48.1 fL [facility] NRBC abs 0.00 0.00 - 0.01 K/cumm [facility] Blood 07/30/2024 4:03 PM CDT 07/30/2024 9:13 PM CDT Addie Moore NP LAB BLOOD ORDERABLES Final Re sult Performing Organization Address City/[facility]/ZIP Co de Phone Number [facility] [address] [place] [address] * Hepatitis panel, acute (08/29/2021 2:30 PM CDT) Hep A IgM Nonreactive Nonreactive [facility] Comment: Interpretive Data: If Hep A IgM Ab is reported as Equivocal, a new sample should be drawn in two weeks for testing. Current interpretive data was last revised on 19. Hep B core IgM Nonreactive Nonreactive [facility] Comment: Interpretive Data If HepB Core IgM Ab is reported as Equivocal, a new sample should be drawn in two weeks for testing. Current interpretive data was last revised on 19. Hep C Ab Nonreactive Nonreactive [facility] Comment: Interpretive Data Nonreactive: Antibodies [...] last revised on 2019. HepBsAg Nonreactive Nonreactive [facility] Blood 08/29/2021 2:30 PM CDT 08/29/2021 2:36 PM CDT Juan Luis Fritz MD LAB MICROBIOLOGY - GENERAL ORD ERABLES Final Result [facility] [address] [place] [address] from Last 3 Months or Most Recently Relevant to Health Maintenance Insurance BS FEDERAL MEDICARE MEDICARE [facility] Member Subscriber Plan / Payer (Ef fective 2000-Present) Name:Alina Allen Relation to Subscriber:Self Name:Alina Allen Payer ID:[id number] (NAIC) Group ID:[id number] Type:[employer] Address: [address] [facility] [id number]|2024-08-21 00:32:13|2024-08-21 00:32:13|ED.GENADULT||||"HPI - General Adult General Chief complaint: Nausea/Vomiting/Diarrhea Stated complaint: vomiting Time Seen by Provider: 05/12/25 21:32 History of Present Illness HPI narrative: This is an 88-year-old female history of CHF, COPD, ESRD on hemodialysis TTS presenting nausea vomiting x2 days. Associated symptoms include weakness chills and decreased oral intake. Patient seen emergency department 08/17 for URI symptoms was discharged home. At that time her COVID was negative. Denies any fevers chest pain difficulty breathing abdominal pain or urinary symptoms. Last underwent dialysis on Tuesday and went to full session. Publications Manager - Dr. Motley. Related Data Home Medications Medication Instructions Recorded Confirmed Last Taken Type aspirin 81 mg tablet 81 mg PO DAILY 05/10/20 03/10/24 09/03/23 History melatonin 3 mg tablet 3 mg PO HS PRN Sleep 12/08/22 03/10/24 09/03/23 History omeprazole 40 mg capsule,delayed 40 mg PO DAILY 12/08/22 03/10/24 1 Day Ago History release ~09/03/23 oxybutynin chloride 5 mg tablet 5 mg PO HS 12/08/22 03/10/24 09/03/23 History trazodone 50 mg tablet 50 mg PO HS 12/08/22 03/10/24 09/03/23 History ergocalciferol (vitamin D2) 1,250 50,000 unit PO BID 10/11/23 03/10/24 Unknown History mcg (50,000 unit) capsule ticagrelor 90 mg tablet (Brilinta) 90 mg PO BID 10/11/23 03/10/24 Unknown History albuterol sulfate 90 mcg/actuation 2 puff inhalation Q6H PRN 12/14/23 03/10/24 Unknown History aerosol inhaler Shortness Of Breath lisinopril 20 mg tablet 20 mg PO DAILY 12/15/23 03/10/24 12/14/23 History atorvastatin 80 mg tablet 80 mg PO HS 03/10/24 03/10/24 Unknown History carvedilol 25 mg tablet 25 mg PO BIDWM 03/10/24 03/10/24 Unknown History Allergies Allergy/AdvReac Type Severity Reaction Status Date / Time Penicillins Allergy Unknown Unknown,Ham Verified 08/20/24 21:12 h PMFSH Past Medical History Medical History Hyperparathyroidism due to ESRD on dialysis End-stage renal disease on hemodialysis Tuesday. Dialysis managed by Dr. Joshua Motley Hyperlipidemia Chronic anemia History of blood transfusion. COPD with emphysema Peripheral arterial disease Combined systolic and diastolic congestive heart failure Echocardiogram on 09/10/2020 EF of 20 to 25%, grade 1 diastolic dysfunction, reduced RV systolic function. 12/2020 echo EF 40-46% with segmental wall motion abnormalities Gastric AVM Cardiomyopathy Presumed ischemic with moderately sized moderately severe reversible defect and small mild non reversible infarct on Lexiscan stress on 09/12/2020. Hypertension Surgical History Surgical History Surgically constructed arteriovenous fistula Left upper arm History of colonoscopy History of colon polyps, internal hemorrhoids, and diverticulosis. History of esophagogastroduodenoscopy History of gastric erosions, gastric polyps, and duodenal AVMs. History of revascularization procedure of lower extremity (10/2019) Bilateral lower extremity stents per Dr. Carrillo. History of vascular surgery (06/12/13) Aorto bi-iliac bypass graft per Dr. Carrillo. Family History Family History Mother Alzheimer disease Father Emphysema of lung Social History Social History Social History: Surrogate medical decision maker: hay Lang. Code status: Full code. Smoking packs per day: 1 Smoking cigarettes per day: 20.0 Years smoked: 55 Smoking pack-years: 55.00 Smoking status: Former smoker Second hand tobacco smoke exposure: Yes Alcohol intake: never Substance use: never Substance use type: does not use Do You Feel Safe in your Home?: Yes Lack of Transportation: No Lack of Food: Never True Current Housing: I Have Housing Concerned About Future Housing: No Difficulty Paying Gas/Electric Bills: No Difficulty Paying for Meds: No Currently Unemployed: No Education: Associate Degree Difficulty w/ Childcare or Family Care: No Additional living arrangements comments: . Lives with her only son in [place]. Additional occupation/education comments: Retired from the [employer]. Spiritual care concerns: No Exam Narrative: APPEARANCE: No apparent distress. Head: atraumatic. EYES: EOMI, NOSE: Atraumatic NECK: Trachea midline RESPIRATORY: No increased rate of breathing CARDIOVASCULAR: RRR, no peripheral edema ABDOMINAL: Non-distended soft nontender MUSCULOSKELETAl: No obvious deformities NEURO: Alert. Moving 4/4 extremities SKIN:: Warm, dry. Normal color PSYCHIATRIC: Normal affect Course Vital Signs Vital signs: Vital Signs Temperature 98.2 F 08/20/24 21:31 Pulse Rate 90 08/20/24 21:31 Respiratory Rate 16 08/20/24 21:31 Blood Pressure 165/65 H 08/20/24 21:31 Pulse Oximetry 95 08/20/24 21:31 Temperature 98.2 F 08/20/24 21:31 Pulse Rate 90 08/20/24 22:55 Respiratory Rate 20 08/20/24 22:55 Blood Pressure 182/86 H 08/20/24 22:55 Pulse Oximetry 100 08/20/24 22:55 Oxygen Delivery Nasal Cannula 08/20/24 22:55 Oxygen Flow Rate 2 08/20/24 22:55 Medical Decision Making [facility] Narrative Medical decision making narrative: -Course: 78-year-old female presenting with 6 days of viral syndrome. Lungs are clear to auscultation. no evidence of fluid overload. Patient is positive for COVID-19. Chest x-ray shows a persistent right-sided pleural effusion but no focal infiltrate. Laboratory studies redemonstrated her end-stage renal disease but no other significant findings. Patient is maintaining her oxygen saturation at rest but when ambulating dips down into the low 80s. Placed on 2 L supplemental oxygen. Given dexamethasone for hypoxic respiratory failure in the setting COVID-19. URI symptoms have been going on for approximately 6-7 days. Patient will be admitted the hospital for further management for COVID-19 and hypoxic respiratory failure. -DDX includes but is not limited to: COVID 19, pneumonia, sepsis, UTI, dehydration -Co-morbidities complicating care: CHF, COPD, end-stage renal disease Independent EKG interpretation: Rhythm [sinus], Rate 89 [place] -[normal], AL -[76], QRS [narrow], QTC [457], T waves -[negative for concerning inversions], ST Segments - [Negative for concerning elevations] Final interpretations: [Normal Sinus Rhythm] Vital Signs Vital Signs: Vital Signs Temperature 98.2 F 08/20/24 21:31 Pulse Rate 90 08/20/24 21:31 Respiratory Rate 16 08/20/24 21:31 Blood Pressure 165/65 H 08/20/24 21:31 Pulse Oximetry 95 08/20/24 21:31 Temperature 98.2 F 08/20/24 21:31 Pulse Rate 90 08/20/24 22:55 Respiratory Rate 20 08/20/24 22:55 Blood Pressure 182/86 H 08/20/24 22:55 Pulse Oximetry 100 08/20/24 22:55 Oxygen Delivery Nasal Cannula 08/20/24 22:55 Oxygen Flow Rate 2 08/20/24 22:55 Lab Data 08/20/24 22:24 08/20/24 22:24 Labs: Lab Results 08/20/24 Range/Units 22:24 WBC 8.2 (4.5-10.0) K/mm3 RBC 4.48 (4.2-5.4) M/mm3 Hgb 12.0 (12.0-15.0) g/dL Hct 35.3 L (37.0-47.0) % MCV 78.8 L (80-100) fl MCH 26.8 (26-34) pg MCHC 34.0 (32-36) g/dl RDW 16.4 H (11.5-14.5) % Plt Count 201 (150-375) k/mm3 MPV 9.1 (7.4-10.4) fl Immature Gran % (Auto) 0.5 (0-0.5) % Neut % (Auto) 79.3 H (45.5-73.1) % Lymph % (Auto) 6.2 L (18.3-44.2) % [place] % (Auto) 13.8 H (2.6-8.5) % Eos % (Auto) 0.0 (0-4.4) % Baso % (Auto) 0.2 (0.2-1.2) % Lymph # (Auto) 0.51 L (0.9-3.2) K/mm3 [place] # (Auto) 1.1 H (0.1-0.6) K/mm3 Eos # (Auto) 0.0 (0-0.3) K/mm3 Baso # (Auto) 0.0 (0.0-0.1) K/mm3 Abs Immat Gran (auto) 0.04 H (0.00-0.031) K/mm3 Absolute Neuts (auto) 6.5 (1.3-6.7) K/mm3 Absolute Nucleated RBC 0.000 (0.0-0.012) K/mm3 Band Neutrophils % Not Reportable Nucleated RBC % 0.0 (0.0-0.2) % Platelet Estimate Adequate (Adequate) % Immature Plt Fraction 1.4 (0.9-11.2) % Anisocytosis 1+ Target Cells 1+ Schistocytes None seen PT 13.0 (11.1-14.7) Seconds INR 1.0 APTT 31.9 (22.3-36.8) Seconds Sodium 133 L (137-145) mmol/L Potassium 4.3 (3.4-5.0) mmol/L Chloride 96 L (98-107) mmol/L Carbon Dioxide 18 L (22-30) mmol/L Anion Gap 19 H (4-12) mmol/L BUN 64 H D (7-17) mg/dL Creatinine 6.89 H (0.7-1.0) mg/dL Estim Creat Clear Calc 5 ml/min Estimated GFR 6 L (59 - ) Glucose 76 (65-110) mg/dL Lactic Acid 1.1 (0.7-2.0) mmol/L Calcium 7.2 L (8.4-10.2) mg/dL Magnesium 1.7 (1.6-2.3) mg/dL Total Bilirubin 0.8 (0.2-1.3) mg/dL AST 50 H (14-36) U/L ALT 16 (6-35) U/L Alkaline Phosphatase 143 H (38-126) U/L Total Protein 7.0 (6.3-8.2) g/dL Albumin 3.9 (3.5-5.1) g/dL Lipase 305 H (23-300) U/L Influenza A (RT-PCR) Negative (Negative) Influenza B (RT-PCR) Negative (Negative) RSV (RT-PCR) Negative (Negative) SARS-CoV-2 RNA (RT-PCR) Positive A (Negative) Discharge Plan Discharge Clinical Impression: COVID, Hypoxic respiratory failure Patient Disposition: Still a Patient Condition: Stable Patient Language: [place] Prescriptions: No Action aspirin 81 mg Tablet 81 mg PO DAILY isosorbide mononitrate 30 mg tablet extended release 24 hr 30 mg PO DAILY Qty: 30 0RF trazodone 50 mg tablet 50 mg PO HS omeprazole 40 mg capsule,delayed release(DR/EC) 40 mg PO DAILY oxybutynin chloride 5 mg tablet 5 mg PO HS melatonin 3 mg tablet 3 mg PO HS PRN (Reason: Sleep) ergocalciferol (vitamin D2) 1,250 mcg (50,000 unit) capsule 50,000 unit PO BID Brilinta 90 mg tablet 90 mg PO BID Patient Comments: Patient stated that it is not re-fillable. albuterol sulfate 90 mcg/actuation HFA aerosol inhaler 2 puff INHALATION Q6H PRN (Reason: Shortness Of Breath) lisinopril 20 mg tablet 20 mg PO DAILY atorvastatin 80 mg tablet 80 mg PO HS carvedilol 25 mg tablet 25 mg PO BIDWM nifedipine [Procardia XL] 30 mg Tablet Extended Release 24hr 60 mg PO DAILY Qty: 60 0RF Follow-up/Referrals: Se,ENEDELIA BatesP [Primary Care Provider] - "
--- OUTSIDE RECORDS SUMMARY | 2024-08-20 21:14 | XMS_ITS | Encounter Summary ---
Author Organization [facility] Healthcare Address [address] [place] [address] Care Team Providers Care Kettle Loader Name Role Phone Louisa Anderson MD Unavailable [phone] Juan Luis Fritz MD Unavailable [phone] Joshua Motley MD Unavailable [phone] Addie Moore NP Primary Care Provider [phone] Wily Tolbert RN Unavailable [phone] Encounter Details Date Type Department Care Team (Late st Contact Info) Description 07/31/2024 Results Follow-Up [facility] Medical Group Primary Care at [address] [address] Addie Moore NP [address] [place] [address] [address] [place] [address] Social History Tobacco Use Types Packs/Day Years Used Date Smoking Tobacco: Former Cigarettes Q uit: 10/01/2020 Smokeless Tobacco: Never Alcohol Use Standard Drinks/Week Comments Yes 0 (1 standard drink = 0.6 oz pur e alcohol) [facility] Utilities Answer Date Recorded In [...] often do you attend chur ch or oriental orthodox services? Never 04/20/2024 Do you belong to [...] any time in the past 12 m [facility], were you homeless or living in a skilled nursing (including now)? No 04/20/2024 Personal Safety Answer [...] on filedocumented in this encounter Care Teams Kettle Loader Relationship Specialty Start Date End Date Addie Moore NP [address] [place] [address] PCP - General Family Medicine 04/14/23 Louisa Anderson MD [address] [place] [address] Consulting Physician Cardiovascular Disease 09/09/21 Juan Luis Fritz MD [address] [place] [address] Consulting Physician Nephrology 09/09/21 Joshua Motley MD [address] [place] [address] Referring Physician Nephrology 02/15/22 Wily Tolbert RN [address] [place] [address] [place] [address] Healthcare Applications Analyst 04/30/24 documented as of this encounter
--- OUTSIDE RECORDS SUMMARY | 2024-08-20 21:16 | XMS_ITS | Encounter Summary ---
Author Organization [facility] Healthcare Address [address] [place] [address] Care Team Providers Care Search Lead Name Role Phone Louisa Anderson MD Unavailable [phone] Juan Luis Fritz MD Unavailable [phone] Joshua Motley MD Unavailable [phone] Addie Moore NP Primary Care Provider [phone] Wily Tolbert RN Unavailable [phone] Reason for Visit * Reason Onset Date Comments Appointment Request 08/13/2024 Encounter Details Date Type Department Care Team (Late st Contact Info) Description 08/13/2024 Telephone [facility] Medical Group Primary Care at [address] [address] Addie Moore NP [address] [address] Appointment Request Social History Tobacco Use Types Packs/Day Years Used Date Smoking Tobacco: Former Cigarettes Q uit: 10/01/2020 Smokeless Tobacco: Never Alcohol Use Standard Drinks/Week Comments Yes 0 (1 standard drink = 0.6 oz pur e alcohol) [facility] Utilities Answer Date Recorded In the past 12 months has [employer] electric, gas, oil, or water company [...] time in the past 12 m [facility], were you homeless or living [...] care team offered (e.g., nurse practioner(s), physician research program assistant(s)) ? Yes Additional Comments: ER Follow up [facility] arm pain 08/12/24 Does message need to be routed? Yes-Action Needed documented in this encounter Plan of Treatment Not on file documented as of this encounter Visit Diagnoses Not on filedocumented in this encounter Care Teams Search Lead Relationship Specialty Start Date End Date Addie Moore NP [address] [place] [address] PCP - General Family Medicine 04/14/23 Louisa Anderson MD [address] [place] [address] Consulting Physician Cardiovascular Disease 09/09/21 Juan Luis Fritz MD [address] [place] [address] Consulting Physician Nephrology 09/09/21 Joshua Motley MD [address] [place] [address] Referring Physician Nephrology 02/15/22 Wily Tolbert RN [address] [place] [address] [address] [place] [address] Political Aide 04/30/24 documented as of this encounter
--- OUTSIDE RECORDS SUMMARY | 2024-08-20 21:16 | XMS_ITS | Encounter Summary ---
Author Organization [facility] Healthcare Address [address] [place] [address] Care Team Providers Care Straightening Press Operator Helper Name Role Phone Louisa Anderson MD Unavailable [phone] Juan Luis Fritz MD Unavailable [phone] oJshua Motley MD Unavailable [phone] Addie Moore NP Primary Care Provider [phone] Wily Tolbert RN Unavailable [phone] Reason for Visit * Reason Onset Date Comments Cough 08/20/2024 Encounter Details Date Type Department Care Team (Late st Contact Info) Description 08/20/2024 Nurse Triage [facility] Medical Group Primary Care at [address] [address] Addie Moore NP [address] [place] [address] Social History Tobacco Use Types Packs/Day Years Used Date Smoking Tobacco: Former Cigarettes Q uit: 10/01/2020 Smokeless Tobacco: Never Alcohol Use Standard Drinks/Week Comments Yes 0 (1 standard drink = 0.6 oz pur e alcohol) [facility] Utilities Answer Date Recorded In the [...] often do you attend chur ch or shinto services? Never 04/20/2024 Do you belong to any clubs o r organizations such as scientologist groups, unions, fraternal or athletic groups, or [...] any time in the past 12 m [facility], were you homeless or living in [...] encounter Miscellaneous Notes * Telephone Encounter - Chelsey Cruz RN - 08/20/2024 1:53 PM CDT Patient called with C/O cough for the past 4 days. Denies fever, chest pain or SOB. She is alert and speaking in complete sentences. Denies headache, dizziness or sinus congestion. Appt scheduled tomorrow with CATHY Moore. Care Advice Given: Sip on warm fluids, suck on cough drops Educated patient to call back if worsens, new symptoms develop or has further questions/concerns Reason for Disposition Patient wants to be seen Protocols used: [id number] * Telephone Encounter - Chelsey Cruz RN - 08/20/2024 1:49 PM CDT Regarding: cough ----- Message from Jocelyn Snell sent at 08/20/2024 1:30 PM CDT ----- Symptom Based Call Chief Complaint(s): cough Duration: 4 days What type of symptom(s) is the patient experiencing? Non-Emergent. Is this a new or reoccurring symptom(s)? new What have you tried to help your symptom(s)? unknown Why was appointment not scheduled? Appointment availability did not meet the patient's need. Additional Comments: Patient wanted to schedule with Addie Moore only. Her only symptom she noted is a cough with some mucous. Does message need to be routed? Yes-Action Needed documented in this encounter Plan of Treatment Not on file documented as of this encounter Visit Diagnoses Not on filedocumented in this encounter Care Teams Straightening Press Operator Helper Relationship Specialty Start Date End Date Addie Moore NP [address] [place] [address] PCP - General Family Medicine 04/14/23 Louisa Anderson MD [address] [place] [address] Consulting Physician Cardiovascular Disease 09/09/21 Juan Luis Fritz MD [address] [place] [address] Consulting Physician Nephrology 09/09/21 Joshua Motley MD [address] [place] [address] Referring Physician Nephrology 02/15/22 Wily Tolbert RN [address] [place] [address] [place] [address] Enrollment Coordinator 04/30/24 documented as of this encounter
--- OUTSIDE RECORDS SUMMARY | 2024-08-20 21:16 | XMS_ITS | Clinical Summary ---
Author Organization [facility] Address [facility] [place] [address] Care Team Providers Care Pediatric Physician Assistant Name Role Phone None, Provider MD Primary [...] patient's age to complete this topic Insurance [facility] Advance Directives * Full Code (Latest Code Status on File) Date Activated Date Inactivated Comments 11/02/2019 2:38 PM 11/03/2019 12:18 PM Care Teams Pediatric Physician Assistant Relationship Specialty Start Date End Date None, Provider, PCP - General 11/02/19
--- OUTSIDE RECORDS SUMMARY | 2024-08-20 21:16 | XMS_ITS | Clinical Summary ---
Author Organization [facility] Address [address], [place] [address] Phone Care Team Providers Care Field Consultant Name Role Phone Tricia Trejo MD Primary Care Provider [phone] Allergies Active Allergy Reactions Criticality Noted Date [...] 1994 Influenza Vaccine (Season Ended) [address] [place] [address] [address] Care Teams Field Consultant Relationship Specialty Start Date End Date Tricia Trejo MD [address] [place] [address] [address] [place] [address] PCP - General Family Medicine 10/14/20
[2024-08-20 21:31] VITALS: BP 165/65; PULSE 90; RESP 16; TEMP 36.8; O2SAT 95
--- OUTSIDE RECORDS SUMMARY | 2024-08-20 21:40 | XMS_ITS | Encounter Summary ---
Author Organization [facility] Healthcare Address [address] [place] [address] Care Team Providers Care Automobile Engine Assembler Name Role Phone Louisa Anderson MD Unavailable [phone] Juan Luis Fritz MD Unavailable [phone] Joshua Motley MD Unavailable [phone] Addie Moore NP Primary Care Provider [phone] Wily Tolbert RN Unavailable [phone] Encounter Details Date Type Department Care Team (Late st Contact Info) Description 08/01/2024 Results Follow-Up [facility] Medical Group Primary Care at [address] [address] Addie Moore NP [address] [place] [address] [address] [place] [address] Social History Tobacco Use Types Packs/Day Years Used Date Smoking Tobacco: Former Cigarettes Q uit: 10/01/2020 Smokeless Tobacco: Never Alcohol Use Standard Drinks/Week Comments Yes 0 (1 standard drink = 0.6 oz pur e alcohol) [facility] Utilities Answer Date Recorded In the [...] often do you attend chur ch or cheondoism services? Never 04/20/2024 Do you belong to [...] any time in the past 12 m [facility], were you homeless or living [...] on filedocumented in this encounter Care Teams Automobile Engine Assembler Relationship Specialty Start Date End Date Addie Moore NP [address] [place] [address] PCP - General Family Medicine 04/14/23 Louisa Anderson MD [address] [place] [address] Consulting Physician Cardiovascular Disease 09/09/21 Juan Luis Fritz MD [address] [place] [address] Consulting Physician Nephrology 09/09/21 Joshua Motley MD [address] [place] [address] Referring Physician Nephrology 02/15/22 Wily Tolbert RN [address] [place] [address] [place] [address] Shoe Packer 1/20/25 documented as of this encounter
--- OUTSIDE RECORDS SUMMARY | 2024-08-20 21:40 | XMS_ITS | Referral Summary ---
Author Organization [facility] [address] Address [address] [place] [address] Care Team Providers Care Powder Line Repairer Name Role Phone Louisa Anderson MD Unavailable Juan Luis Fritz MD Unavailable [phone] Joshua Motley MD Unavailable [phone] Addie Moore NP Primary Care Provider [phone] Wily Tolbert RN Unavailable [phone] Encounters Date Type Department Care Team Description 08/20/2024 Nurse Triage [facility] Primary Care at [address] [address] Addie Moore NP 08/15/2024 9:00 AM CDT Office Visit [facility] Primary Care at [address] [phone] Addie Moore NP Hospital discharge follow-up (Primary Dx) 08/13/2024 Telephone [facility] Primary Care at [address] [address] Addie Moore NP Appointment Request 08/01/2024 Results Follow-Up [facility] Primary Care at [address] [phone] Addie Moore NP 07/31/2024 Results Follow-Up [facility] Primary Care at [address] [address] Addie Moore NP 07/30/2024 4:03 PM CDT - 07/30/2024 11:59 PM CDT Hospital Encounter [address] [address] Chronic combined systolic and diastolic heart failure (HCC); Acute cough Discharge Disposition: Discharge to home or self care 07/30/2024 4:20 PM CDT Ancillary Procedure [facility] Imaging at [address] [address] Acute cough 07/30/2024 4:00 PM CDT Lab [facility] at [address] [address] 07/30/2024 3:30 PM CDT Office Visit [facility] Primary Care at [address] [address] Addie Moore NP ESRD on dialysis (HCC) [...] needed (swelling) 04/14/19 24 Active lisinopriL (PRINIVIL,ZESTR NH) 20 mg tabletIndicatio ns:started by jitterbug operator Dr. Motley - 06/01. off entresto Take 1 tablet (20 mg total) by mouth daily 90 tablet 3 06/02/19 24 Active Additional Information Patient taking differently: 40 mgoral Daily, Indications: started by jitterbug operator Dr. Motley - 06/01. off entresto, [...] 05/02 Assessment & Plan (05/02/2024 9:21 AM DIRECTOR OF PHARMACY): -Recommended: Healthy diet. Avoiding junk food/fast food. [...] needed Assessment & Plan (05/02/2023 10:59 AM DIRECTOR OF PHARMACY): Patient Counseling: --Nutrition: Stressed importance of moderation [...] 08/2021 Assessment & Plan (05/02/2024 9:29 AM DIRECTOR OF PHARMACY): Has albuterol inhaler to use prn. She [...] this month where she ended up in [facility] for 2 days with a COPD exacerbation. She was treated with IV Solu-Medrol and nebulizers. She was given prednisone and Levaquin upon discharge but states that she read side effects and threw away 1 of the prescriptions. I think it was the prednisone but I am not sure. Assessment & Plan (04/14/2023 8:31 PM DIRECTOR OF PHARMACY): Not currently on any medications. Denies any difficulty with shortness of breath. Not currently a smoker. ESRD on dialysis 02/18/2022 Assessment & Plan (05/02/2024 9:26 AM DIRECTOR OF PHARMACY): Stable. Continues on dialysis 3 times weekly. Doing well today. States she has some bad days, but doing well Assessment & Plan (10/31/2023 10:01 AM CDT): Stable. Continues on dialysis 3 times weekly. I encouraged her to talk to her jitterbug operator about the increased swelling in her ankles as well. Assessment & Plan (05/02/2023 11:02 AM DIRECTOR OF PHARMACY): Continues on dialysis 3 times week. Patient is considering moving to [place]. She is aware she has to set up health care before moving. She is considering moving into assisted living up there. She is currently on a waiting list Assessment & Plan (04/14/2023 8:30 PM DIRECTOR OF PHARMACY): Currently on dialysis. Dr. Motley. 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 Stable. Blood pressure within [...] October Assessment & Plan (06/05/2023 6:05 PM DIRECTOR OF PHARMACY): Continue all medications. Start lisinopril 20 mg once daily Assessment & Plan (05/02/2023 11:04 AM DIRECTOR OF PHARMACY): Blood pressure is improved today and is not hypotensive. Will continue current medication and continue to monitor. Assessment & Plan (04/14/2023 8:25 PM DIRECTOR OF PHARMACY): Apparently long history of hypertension. ON multiple antihypertensive medications and now on dialysis. However, she is also on entresto. Blood pressure is low today. Asymptomatic. Will try discontinuing nifedipine for the hypotension and keep her on all other medication, which we spend a considerable amount of time on reconciling and discussing. I asked her to also run this change by her jitterbug operator. Will be referring to cardiology as well Chronic combined systolic and diastolic heart fa ilure 10/15/2020 Assessment & Plan (05/02/2024 9:28 AM DIRECTOR OF PHARMACY): Improved. No signs of acute heart failure. Last echo 04/2023 with EF 72% Assessment & Plan (11/16/2023 8:38 PM CDT): I think she had some fluid overload which may have improved with dialysis, and thus her shortness of breath improved. Her jitterbug operator also increased her coreg to 25mg [...] for evaluation. I would place referral to [facility] back in April but did not see any follow-up or scheduling for that referral Assessment & Plan (06/05/2023 6:05 PM DIRECTOR OF PHARMACY): Improved. Discontinue Entresto. Start lisinopril 20 mg once daily. We discussed this with her in detail and why we are starting lisinopril and why it is important to stay on all of her other medications. Assessment & Plan (04/14/2023 8:27 PM DIRECTOR OF PHARMACY): Reviewed last heart cath and last echo [...] 05/02/2024 Assessment & Plan (03/20/2024 7:31 AM DIRECTOR OF PHARMACY): Medication review done. Patient discharge instructions from [...] Motley or his office , nephrology at [facility] to discuss med rec. Headache 04/27/2023 05/02/2024 Moderate malnutrition 09/03/20212023 Leg edema 05/05/2021 05/02/2024 Recurrent pleural effusion on right 02/11/2021 04/14/2023 Ischemic cardiomyopathy 10/15/2020 02/2 05/2023 Assessment & Plan (05/02/2023 11:05 AM DIRECTOR OF PHARMACY): History of ischeic cardiomyopathy. We had ordered a repeat echocardiography at last office visit. She now has it scheduled at [facility] Cardiovascular stress test abnormal 10/15/2020 05/02/2024 Chronic [...] = 0.6 oz pur e alcohol) [facility] Utilities Answer Date Recorded In the past 12 months has [employer] gas, oil, or water [employer] threatened to shut off services in your [...] often do you attend chur ch or advent services? Never 04/20/2024 Do you belong to [...] time in the past 12 m [facility], were you homeless or living in a [...] on file Medical Devices Implanted Type Area Network Cabler Device Identifier Shelf Expiration Date Model / Serial / Lot Wl [employer] Winthrop Intering 4-7mm 45cm 38cm Radial Support Stretch Line [id number] - [id number] - [id number] Implanted:Qty: 1 on 03/03/2022 by David Drummond MD at [facility] Graft Left: Arm [employer] [id number] 05/11/2026 [id number] / [id number] / Description:AV fistula graft [employer] Indra Synergy Xd Monorail 3mm 12mm 144cm Delivery System 1 Access Port [id number] - [id number] Implanted:Qty: 1 on 09/02/2021 by Claudio Nelson MD at [facility] Stent [employer] Indra [id number] / / [employer] Synergy Xd 3.5mm 48mm System Coronary Stent Everolimus [id number] - [id number] Implanted:Qty: 1 on 09/02/2021 by Claudio Nelson MD at [facility] Stent [employer] Ind[employer] [id number] / / Description:Mid RCA [employer] Ind[employer] Synergy Xd Monorail 3mm 38mm 144cm Delivery System 1 Access Port [id number] - [id number] Implanted:Qty: 1 on 09/02/2021 by Claudio Nelson MD at [facility] Stent [employer] Ind[employer] [id number] / / Description:Distal RCA betwe en stents [employer] Synergy Xd Monorail 3.5mm 12mm 144cm Delivery System 1 Access [id number] - [id number] Implanted:Qty: 1 on 09/02/2021 by Claudio Nelson MD at [facility] Stent [employer] Indra [id number] / / Ang[employer] Duramax Vascpak Safesheath D-Pro 15.5fr 24cm Kit Catheter [id number] - [id number] Implanted:Qty: 1 on 09/04/2021 at [facility] [employer] 09/09/2023 [id number] / / [id number] Procedures Procedure Name Priority Date/Time Associated Diagnosis [...] signed by Nico NEGRON T: Report ID: [id number] Reading Location: [id number] Procedure Note Nico Leyva MD - 07/31/2024 [...] Nico Leyva M.D. MJ T: Report ID: [id number] Reading Location: [place] [address] Addie Moore MANAGER PRACTICE IMG XR PROCEDURES Final Resul t * [...] revised on 2017. Lymphocyte pct 12.7 % [facility] Comment: Interpretive Data Percent cell count [...] revised on 2017. Eosinophil pct 5.9 % [facility] Comment: Interpretive Data Percent cell count reference ranges are not reported, since discordance with absolute values may lead to misinterpretation of CBC data. Current Interpretive Data was last revised on 2017. Basophil pct 0.8 % [facility] Comment: Interpretive Data Percent cell count reference ranges are not reported, since discordance with absolute values may lead to misinterpretation of CBC data. Current Interpretive Data was last revised on 2017. Blood 07/30/2024 4:03 PM CDT 07/30/2024 9:13 PM CDT Addie Moore NP LAB BLOOD ORDERABLES Final Re sult [facility] [address] Department [place] [address] * (ABNORMAL) Pro B-type natriuretic peptide (07/30/2024 [...] NP LAB BLOOD ORDERABLES Final Re sult [facility] [address] [place] [address] * (ABNORMAL) CBC with auto [...] RDW SD 51.3(H) 35.7 - 48.[address] [facility] NRBC abs 0.00 0.00 - 0.01 K/cumm [facility] Blood 07/30/2024 4:03 PM CDT 07/30/2024 9:13 PM CDT Addie Moore NP LAB BLOOD ORDERABLES Final Re sult Performing Organization Address City/[facility]/ZIP Co de Phone Number [facility] [address] [address] * Hepatitis panel, acute (08/29/2021 2:30 PM CDT) Hep A IgM Nonreactive Nonreactive [facility] Comment: Interpretive Data: If Hep A IgM Ab is reported as Equivocal, a new sample should be drawn in two weeks for testing. Current interpretive data was last revised on 19. Hep B core IgM Nonreactive Nonreactive [facility] Comment: Interpretive Data If HepB Core IgM Ab is reported as Equivocal, a new sample should be drawn in two weeks for testing. Current interpretive data was last revised on 19. Hep C Ab Nonreactive Nonreactive [facility] Comment: Interpretive Data Nonreactive: Antibodies [...] last revised on 2019. HepBsAg Nonreactive Nonreactive [facility] Blood 08/29/2021 2:30 PM CDT 08/29/2021 2:36 PM CDT Juan Luis Fritz MD LAB MICROBIOLOGY - GENERAL ORD ERABLES Final Result Performing Organization Address City/[facility]/ZIP Co de Phone Number [facility] [address] Department [employer] [place], [place] [id number] from Last 3 Months or Most Recently Relevant to Health Maintenance Insurance [facility] FEDERAL MEDICARE MEDICARE [facility] FEDERAL MEDICARE [facility] MEDICARE Advance Directives For more information, please contact: [phone] * Full Code (Latest Code Status on File) Date Activated Date Inactivated Comments 05/19/2022 9:36 AM 05/20/2022 5:19 AM * Full Code Date Activated Date Inactivated Comments 08/25/2021 9:12 PM 09/09/2021 6:36 PM Healthcare Agents on File Name Relationship Healthcare Agent [facility] Communication Al Tiffany Son Health Care Agent Care Teams Powder Line Repairer Relationship Specialty Start Date End Date Addie Moore NP [address] [place] [address] PCP - General Family Medicine 04/14/23 [id number]|2024-08-20 21:40:00|2024-08-20 21:40:00|XMS_ITS|ALEJANDRO LUNA|External Medical Summaries|[phone]|" Clinical Summary Created on: August 20, 2024 Alina Allen : 1945 Sex: Female Author Organization [facility] [address] [facility] [address] Address [address] [place] [address] Care Team Providers Care Powder Line Repairer Name Role Phone Louisa Anderson MD Unavailable Juan Luis Fritz MD Unavailable [phone] Joshua Motley MD Unavailable [phone] Addie Moore NP Primary Care Provider [phone] Wily Tolbert RN Unavailable Allergies Active Allergy Reactions Criticality Noted Date [...] (PRINIVIL,ZESTR [place]) 20 mg tabletIndicatio ns:started by jitterbug operator Dr. Motley - 06/01. off entresto Take 1 tablet (20 mg total) by mouth daily 90 tablet 3 06/02/19 24 Active Additional Information Patient taking differently: 40 mgoral Daily, Indications: started by jitterbug operator Dr. Motley - 06/01. off entresto, [...] well today. No further symptoms. We're calling [facility] for ER records. No medication changes. Follow up as scheduled. Medicare annual wellness visit, subsequent 05/02 Assessment & Plan (05/02/2024 9:21 AM DIRECTOR OF PHARMACY): -Recommended: Healthy diet. Avoiding junk food/fast food. [...] needed Assessment & Plan (05/02/2023 10:59 AM DIRECTOR OF PHARMACY): Patient Counseling: --Nutrition: Stressed importance of moderation [...] 08/2021 Assessment & Plan (05/02/2024 9:29 AM DIRECTOR OF PHARMACY): Has albuterol inhaler to use prn. She [...] this month where she ended up in [facility] for 2 days with a COPD exacerbation. She was treated with IV Solu-Medrol and nebulizers. She was given prednisone and Levaquin upon discharge but states that she read side effects and threw away 1 of the prescriptions. I think it was the prednisone but I am not sure. Assessment & Plan (04/14/2023 8:31 PM DIRECTOR OF PHARMACY): Not currently on any medications. Denies any difficulty with shortness of breath. Not currently a smoker. ESRD on dialysis 02/18/2022 Assessment & Plan (05/02/2024 9:26 AM DIRECTOR OF PHARMACY): Stable. Continues on dialysis 3 times weekly. Doing well today. States she has some bad days, but doing well Assessment & Plan (10/31/2023 10:01 AM CDT): Stable. Continues on dialysis 3 times weekly. I encouraged her to talk to her jitterbug operator about the increased swelling in her ankles as well. Assessment & Plan (05/02/2023 11:02 AM DIRECTOR OF PHARMACY): Continues on dialysis 3 times week. Patient is considering moving to [place]. She is aware she has to set up health care before moving. She is considering moving into assisted living up there. She is currently on a waiting list Assessment & Plan (04/14/2023 8:30 PM DIRECTOR OF PHARMACY): Currently on dialysis. Dr. Motley. 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 Stable. Blood pressure within [...] October Assessment & Plan (06/05/2023 6:05 PM DIRECTOR OF PHARMACY): Continue all medications. Start lisinopril 20 mg once daily Assessment & Plan (05/02/2023 11:04 AM DIRECTOR OF PHARMACY): Blood pressure is improved today and is not hypotensive. Will continue current medication and continue to monitor. Assessment & Plan (04/14/2023 8:25 PM DIRECTOR OF PHARMACY): Apparently long history of hypertension. ON multiple antihypertensive medications and now on dialysis. However, she is also on entresto. Blood pressure is low today. Asymptomatic. Will try discontinuing nifedipine for the hypotension and keep her on all other medication, which we spend a considerable amount of time on reconciling and discussing. I asked her to also run this change by her jitterbug operator. Will be referring to cardiology as well Chronic combined systolic and diastolic heart fa ilure 10/15/2020 Assessment & Plan (05/02/2024 9:28 AM DIRECTOR OF PHARMACY): Improved. No signs of acute heart failure. Last echo 04/2023 with EF 72% Assessment & Plan (11/16/2023 8:38 PM CDT): I think she had some fluid overload which may have improved with dialysis, and thus her shortness of breath improved. Her jitterbug operator also increased her coreg to 25mg [...] for evaluation. I would place referral to [facility] back in April but did not see any follow-up or scheduling for that referral Assessment & Plan (06/05/2023 6:05 PM DIRECTOR OF PHARMACY): Improved. Discontinue Entresto. Start lisinopril 20 mg once daily. We discussed this with her in detail and why we are starting lisinopril and why it is important to stay on all of her other medications. Assessment & Plan (04/14/2023 8:27 PM DIRECTOR OF PHARMACY): Reviewed last heart cath and last echo [...] 05/02/2024 Assessment & Plan (03/20/2024 7:31 AM DIRECTOR OF PHARMACY): Medication review done. Patient discharge instructions from [facility] show her still on atorvastatin 80mg and [...] Motley or his office , nephrology at [facility] to discuss med rec. Headache 04/27/2023 05/02/2024 Moderate malnutrition 09/03/20212023 Leg edema 05/05/2021 05/02/2024 Recurrent pleural effusion on right 02/11/2021 04/14/2023 Ischemic cardiomyopathy 10/15/202005/13 Assessment & Plan (05/02/2023 11:05 AM DIRECTOR OF PHARMACY): History of ischeic cardiomyopathy. We had ordered a repeat echocardiography at last office visit. She now has it scheduled at [facility] Cardiovascular stress test abnormal 10/15/2020 05/02/2024 Chronic kidney disease 10/15/202004/14 Encounters Date Type Department Care Team Description 08/20/2024 Nurse Triage [facility] Primary Care at [address] [phone] Addie Moore NP 08/15/2024 9:00 AM CDT Office Visit [facility] at [address] [phone] Addie Moore NP Hospital discharge follow-up (Primary Dx) 08/13/2024 Telephone [facility] Primary Care at [address] [phone] Addie Moore NP Appointment Request 08/01/2024 Results Follow-Up [facility] Primary Care at [address] [phone] Addie Moore NP 07/31/2024 Results Follow-Up [facility] Primary Care at [address] [phone] Addie Moore NP 07/30/2024 4:20 PM CDT Ancillary Procedure [facility] at [address] [phone] Acute cough 07/30/2024 4:03 PM CDT - 07/30/2024 11:59 PM CDT Hospital Encounter [address] [address] Chronic combined systolic and diastolic heart failure (HCC); Acute cough Discharge Disposition: Discharge to home or self care 07/30/2024 4:00 PM CDT Lab [facility] at [address] [phone] 07/30/2024 3:30 PM CDT Office Visit [facility] Primary Care at [address] [phone] Addie Moore NP ESRD on dialysis (HCC) [...] = 0.6 oz pur e alcohol) [facility] Utilities Answer Date Recorded In the past [...] often do you attend chur ch or advent services? Never 04/20/2024 Do you belong to [...] time in the past 12 m [facility], were you homeless or living in a [...] Completed 05/02/2024 Medical Devices Implanted Type Area Network Cabler Device Identifier Shelf Expiration Date Model / Serial / Lot [employer] Intering 4-7mm 45cm 38cm Radial Support Stretch Line [id number] - [id number] - [id number] Implanted:Qty: 1 on 03/03/2022 by David Drummond MD at [facility] Graft Left: Arm [employer] [id number] 05/11/2026 [id number] / Description:AV fistula graft [employer] Ind[employer] Synergy Xd Monorail 3mm 12mm 144cm Delivery System 1 Access Port [id number] - [id number] Implanted:Qty: 1 on 09/02/2021 by Claudio Nelson MD at [facility] Stent [employer] [id number] / / [employer] Synergy Xd 3.5mm 48mm System Coronary Stent Everolimus [id number] - [id number] Implanted:Qty: 1 on 09/02/2021 by Claudio Nelson MD at [facility] Stent [employer] [id number] / / Description:Mid RCA [employer] Synergy Xd Monorail 3mm 38mm 144cm Delivery System 1 Access Port [id number] - [id number] Implanted:Qty: 1 on 09/02/2021 by Claudio Nelson MD at [facility] Stent [employer] [id number] / / Description:Distal RCA betwe en stents [employer] Synergy Xd Monorail 3.5mm 12mm 144cm Delivery System 1 Access [id number] - [id number] Implanted:Qty: 1 on 09/02/2021 by Claudio Nelson MD at [facility] Stent [employer] [id number] / / [employer] Dur[employer] Vascpak Safesheath D-Pro 15.5fr 24cm Kit Catheter [id number] - [id number] Implanted:Qty: 1 on 09/04/2021 at [facility] [employer] 09/09/2023 [id number] / / [id number] Procedures Procedure Name Priority Date/Time Associated Diagnosis [...] signed by Nico NEGRON T: Report ID: [id number] Reading Location: [id number] Procedure Note Nico Leyva MD - 07/31/2024 [...] Nico Leyva M.D. MJ T: Report ID: [id number] Reading Location: [place] [address] Addie Moore NP IMG XR PROCEDURES Final [...] [facility] Neutrophil pct 70.7 % [facility] Comment: Interpretive Data Percent cell count reference ranges are not reported, since discordance with absolute values may lead to misinterpretation of CBC data. Current Interpretive Data was last revised on 2017. Imm gran pct 0.4 % [facility] Comment: Interpretive Data Percent cell count [...] revised on 2017. Monocyte pct 9.5 % [facility] Comment: Interpretive Data Percent cell count [...] revised on 2017. Basophil pct 0.8 % [facility] Comment: Interpretive Data Percent cell count reference ranges are not reported, since discordance with absolute values may lead to misinterpretation of CBC data. Current Interpretive Data was last revised on 2017. Blood 07/30/2024 4:03 PM CDT 07/30/2024 9:13 PM CDT Addie Moore NP LAB BLOOD ORDERABLES Final Re sult [facility] [address] Department [place] [address] * (ABNORMAL) Pro B-type natriuretic peptide (07/30/2024 [...] NP LAB BLOOD ORDERABLES Final Re sult [facility] [address] [place] [address] * (ABNORMAL) CBC with auto differential (07/30/2024 4:03 PM CDT) Pathologist [facility] WBC 7.24 3.80 - 9.90 K/cumm Hgb 13.9 11.9 - 15.5 g/dL [facility] Hct 40.6 35.6 - 45.5 % [facility] Plt 196 150 - 400 K/cumm [facility] MPV 9.3 9.1 - 12.[address] [facility] RBC 5.01 3.90 - 5.20 M/cumm [facility] MCV 81.0(L) 81.3 - 96.4 fL [facility] MCH 27.7 27.1 - 33.3 pg [facility] MCHC 34.2 32.3 - 35.7 g/dL [facility] RDW CV 17.5(H) 11.1 - 14.9 % [facility] RDW SD 51.3(H) 35.7 - 48.1 fL [facility] NRBC abs 0.00 0.00 - 0.01 K/cumm [facility] Blood 07/30/2024 4:03 PM CDT 07/30/2024 9:13 PM CDT Addie Moore NP LAB BLOOD ORDERABLES Final Re sult [facility] [address] Department [place] [address] * Hepatitis panel, acute (08/29/2021 2:30 PM CDT) Hep A IgM Nonreactive Nonreactive [facility] Comment: Interpretive Data: If Hep A IgM Ab is reported as Equivocal, a new sample should be drawn in two weeks for testing. Current interpretive data was last revised on 19. Hep B core IgM Nonreactive Nonreactive [facility] Comment: Interpretive Data If HepB Core IgM Ab is reported as Equivocal, a new sample should be drawn in two weeks for testing. Current interpretive data was last revised on 19. Hep C Ab Nonreactive Nonreactive [facility] [facility] Comment: Interpretive Data Nonreactive: Antibodies [...] last revised on 2019. HepBsAg Nonreactive Nonreactive [facility] Blood 08/29/2021 2:30 PM CDT 08/29/2021 2:36 PM CDT Juan Luis Fritz MD LAB MICROBIOLOGY - GENERAL ORD ERABLES Final Result DOLORES [id number] [facility] Department [place] [address] from Last 3 Months or Most Recently Relevant to Health Maintenance Insurance [facility] FED[facility]AL MEDICARE MEDICARE [facility] Member Subscriber Plan / Payer (Ef fective 2000-Present) Name:Alina Allen Relation to Subscriber:Self Name:Alina Allen Payer ID:[id number] ([facility]) Group ID:[id number] Type:CHRISTIANO COX Address: [facility] [address] Belen Moreira
--- OUTSIDE RECORDS SUMMARY | 2024-08-20 21:40 | XMS_ITS | CONTINUITY OF CARE DOCUMENT ---
Author Name jeremy luna Address Unknown Organization [facility] Address [address] [facility] [address] [place] [address] Phone [phone] Care Team Providers Care Beef Cattle Specialist Name Role Phone Justin CABRERA, Louisa Menendez [...] In-person encounter Office Visit Louisa Anderson MD [facility] CAD - In-person encounter Office Visit Louisa Anderson MD [facility] End stage renal disease -on dialysis - In-person encounter Office Visit Louisa Anderson MD [facility] Cardiology examinationCHF - systolicHTN essentialLeg edemaSARS-associated [...] Body Mass Index (Ratio) 19.06 kg/m2 Jian nAderson MD blood pressure, cuff size regular Tr acy Lively blood pressure, diastolic 48 mm[Hg] Tr acy Lively blood pressure, systolic 101 mm[Hg] Tra cy Lively pulse rate 69 /min Morena Lively weight E&M 100.9 [lb_av] Morena Lively height E&M 61 [in_i] Morena Lively oxygen saturation, oximetry 97 % Mornea Lively Body Mass Index (Ratio) 20.78 kg/m2 [...] TABLET BY MOUTH EVERY DAY AT NIGHT [facility] amlodipine 10 mg tablet active TAKE 1 TABLET BY MOUTH EVERY DAY Sheryl Louis pantoprazole 40 mg tablet,delayed release (DR/EC) active TAKE 1 TABLET BY MOUTH EVERY DAY Claudio Nelson MD Brilinta 90 mg tablet completed Take 1 tablet by mouth twice a day - [facility] Plavix 75 mg tablet completed TAKE 1 [...] ppd Nimo Robles smoking, year quit 2020 iNmo olivarez cigarette use yes Nimo Velasco [facility] smoking status Former smoker Nimo bell INSURANCE PROVIDERS Payer name Policy type / Coverage type Clyde red republican ID [facility] [id number] ADVANCE DIRECTIVES Name Date DISCUSSED - NO DECISION MADE TREATMENT PLAN Date Name Performer [id number],C, B P today: 154/61 P rior BP: [...] mouth twice a day Louisa Anderson MD [id number],S,U nderwent complex PCI or RCA with Omar Sargent at [facility]. O n aspirin brillinta. Louisa Anderson MD [id number],S,E lectrolytes from dialysis report look good. K 3.5. Sees Dr. Tiesha Anderson MD [id number],C,C ONCLUSIONS: 1 . Normal left ventricular systolic [...] is mild pulmonic regurgitation. Louisa Anderson MD [id number],C, L FEV was 50% on echo on 08/29/21 at [facility]. Will recheck echo since revascularzation H er updated medication list for this problem includes: B rilllinta 90 BID November 20, 2021 E cho most recent shows EF is up to 55%. Louisa Anderson MD [id number],C, S odium restriction and dialysis Louisa Anderson MD [id number],C, H as had multiple admissions has abnormal EKG consistent with prior anterior wall TX will arrange for lexiscan stress R EMAINS ON DAPT WITH ASA BRILINTA FOR THE ALYSE STENTS WHICH WERE PLACED IN THE RCA 09/02/21 Louisa Anderson MD [id number],C,switched to a Dr Motley for HD Louisa Anderson MD [id number],C, Continue BP med rx currently on entresto, hydralyzine. W ill stop Losartan since she is currently on Entresto BP today: 101/48 P rior BP: 156/77 (05/05/2021) J une 2021 t olerating ientresto and has done well with her BP will contine Louisa Anderson MD [id number],S,See JOVANY Fritz on October 09 Louisa Anderson MD [id number],S, Continue BP med rx currently on entresto, hydralyzine. W ill stop Losartan since she is currently on Entresto BP today: 101/48 P rior BP: 156/77 (05/05/2021) Louisa Anderson MD [id number],S,L FEV was 50% on echo on 08/29/21 at [facility]. Will recheck echo since revascularzation H [...] mouth twice a day Louisa Anderson MD [id number],C,H as had multiple admissions has abnormal EKG consistent with prior anterior wall TX will arrange for lexiscan stress Louisa Anderson MD [id number],S,Sodium restri ction and diuretics Louisa Anderson MD [id number],C,Vaccinated Sa oscar Adnerson MD [id number],C,E F 24% according to her son has [...] lifevest in the meantime. Louisa Anderson MD [id number],C, B P today: 156/77 C ontinue BP [...] PCI or RCA with Omar Sargent at [facility]. O n aspirin brillinta. Louisa Anderson [...] abnormal EKG consistent with prior anterior wall TX will arrange for lexiscan stress R EMAINS [...] 101/48 P rior BP: 156/77 (05/05/2021) J [facility] 2021 t olerating ientresto and has done [...] abnormal EKG consistent with prior anterior wall TX will arrange for lexiscan stress Louisa Anderson [...]
--- OUTSIDE RECORDS SUMMARY | 2024-08-20 21:40 | XMS_ITS | Encounter Summary ---
Author Organization [facility] Healthcare Address [address] [place] [address] Care Team Providers Care Outside Property Agent Name Role Phone Louisa Anderson MD Unavailable [phone] Juan Luis Fritz MD Unavailable [phone] Joshua Motley MD Unavailable [phone] Addie Moore NP Primary Care Provider [phone] Wily Tolbert RN Unavailable [phone] Encounter Details Date Type Department Care Team (Late st Contact Info) Description 07/31/2024 Results Follow-Up [facility] Medical Group Primary Care at [address] [address] Addie Moore NP [address] [place] [address] [address] [place] [address] Social History Tobacco Use Types Packs/Day Years Used Date Smoking Tobacco: Former Cigarettes Q uit: 10/01/2020 Smokeless Tobacco: Never Alcohol Use Standard Drinks/Week Comments Yes 0 (1 standard drink = 0.6 oz pur e alcohol) [facility] Utilities Answer Date Recorded In the [...] often do you attend chur ch or buddhism services? Never 04/20/2024 Do you belong to any clubs o r organizations such as amish groups, unions, fraternal or athletic groups, or [...] any time in the past 12 m [facility], were you homeless or living in a [...] on filedocumented in this encounter Care Teams Outside Property Agent Relationship Specialty Start Date End Date Addie Moore NP [address] [place] [address] PCP - General Family Medicine 04/14/23 Louisa Anderson MD [address] [place] [address] Consulting Physician Cardiovascular Disease 09/09/21 Juan Luis Fritz MD [address] [place] [address] Consulting Physician Nephrology 09/09/21 Joshua Motley MD [address] [place] [address] Referring Physician Nephrology 02/15/22 Wily Tolbert RN [address] [place] [address] [place] [address] Maintenance Controller 04/30/24 documented as of this encounter
--- OUTSIDE RECORDS SUMMARY | 2024-08-20 21:40 | XMS_ITS ---
Author Organization [facility] [address] Address [address] [place] [address] Care Team Providers Care Title I Math Tutor Name Role Phone Louisa Anderson MD Unavailable Juan Luis Fritz MD Unavailable Joshua Motley MD Unavailable [phone] Addie Moore NP Primary Care Provider Wily Tolbert RN Unavailable [phone] Dialysis Access Sites Type Status Location Placement [...] (PRINIV[place]) 20 mg tabletIndicatio ns:started by can repairer Dr. Motley - 06/01. off entresto Take 1 tablet (20 mg total) by mouth daily 90 tablet 3 06/02/19 24 Active Additional Information Patient taking differently: 40 mgoral Daily, Indications: started by can repairer Dr. Motley - 06/01. off entresto, Reported [...] 05/02 Assessment & Plan (05/02/2024 9:21 AM MASH PREPARATORY OPERATOR): -Recommended: Healthy diet. Avoiding junk food/fast [...] needed Assessment & Plan (05/02/2023 10:59 AM MASH PREPARATORY OPERATOR): Patient Counseling: --Nutrition: Stressed importance of [...] 08/2021 Assessment & Plan (05/02/2024 9:29 AM MASH PREPARATORY OPERATOR): Has albuterol inhaler to use prn. [...] this month where she ended up in [facility] for 2 days with a COPD exacerbation. She was treated with IV Solu-Medrol and nebulizers. She was given prednisone and Levaquin upon discharge but states that she read side effects and threw away 1 of the prescriptions. I think it was the prednisone but I am not sure. Assessment & Plan (04/14/2023 8:31 PM MASH PREPARATORY OPERATOR): Not currently on any medications. Denies any difficulty with shortness of breath. Not currently a smoker. ESRD on dialysis 02/18/2022 Assessment & Plan (05/02/2024 9:26 AM MASH PREPARATORY OPERATOR): Stable. Continues on dialysis 3 times weekly. Doing well today. States she has some bad days, but doing well Assessment & Plan (10/31/2023 10:01 AM CDT): Stable. Continues on dialysis 3 times weekly. I encouraged her to talk to her can repairer about the increased swelling in her ankles as well. Assessment & Plan (05/02/2023 11:02 AM MASH PREPARATORY OPERATOR): Continues on dialysis 3 times week. Patient is considering moving to [place]. She is aware she has to set up health care before moving. She is considering moving into assisted living up there. She is currently on a waiting list Assessment & Plan (04/14/2023 8:30 PM MASH PREPARATORY OPERATOR): Currently on dialysis. Dr. Motley. 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 Stable. Blood pressure [...] October Assessment & Plan (06/05/2023 6:05 PM MASH PREPARATORY OPERATOR): Continue all medications. Start lisinopril 20 mg once daily Assessment & Plan (05/02/2023 11:04 AM MASH PREPARATORY OPERATOR): Blood pressure is improved today and is not hypotensive. Will continue current medication and continue to monitor. Assessment & Plan (04/14/2023 8:25 PM MASH PREPARATORY OPERATOR): Apparently long history of hypertension. ON multiple antihypertensive medications and now on dialysis. However, she is also on entresto. Blood pressure is low today. Asymptomatic. Will try discontinuing nifedipine for the hypotension and keep her on all other medication, which we spend a considerable amount of time on reconciling and discussing. I asked her to also run this change by her can repairer. Will be referring to cardiology as well Chronic combined systolic and diastolic heart fa ilure 10/15/2020 Assessment & Plan (05/02/2024 9:28 AM MASH PREPARATORY OPERATOR): Improved. No signs of acute heart failure. Last echo 04/2023 with EF 72% Assessment & Plan (11/16/2023 8:38 PM CDT): I think she had some fluid overload which may have improved with dialysis, and thus her shortness of breath improved. Her can repairer also increased her coreg to 25mg bid. [...] for evaluation. I would place referral to [facility] back in April but did not see any follow-up or scheduling for that referral Assessment & Plan (06/05/2023 6:05 PM MASH PREPARATORY OPERATOR): Improved. Discontinue Entresto. Start lisinopril 20 mg once daily. We discussed this with her in detail and why we are starting lisinopril and why it is important to stay on all of her other medications. Assessment & Plan (04/14/2023 8:27 PM MASH PREPARATORY OPERATOR): Reviewed last heart cath and last [...] drink = 0.6 oz pur e alcohol) [facility] [employer] Answer Date Recorded In the past 12 months has [employer], gas, oil, or water [employer] threatened to shut off services in your [...] any clubs o r organizations such as adventism groups, unions, fraternal or athletic groups, or [...] any time in the past 12 m [facility], were you homeless or living in a halfway (including now)? No 04/20/2024 Personal Safety Answer [...] signed by Nico NEGRON T: Report ID: [id number] Reading Location: [id number] Procedure Note Nico Leyva MD - 07/31/2024 [...] signed by Nico NEGRON T: Report ID: [id number] Reading Location: [id number] Addie A. Moore INTERLACER IMG XR PROCEDURES Final Resul t * [...] BLOOD ORDERABLES Final Re sult DOLORES BETH [address] [place] [address] * (ABNORMAL) Pro B-type natriuretic peptide (07/30/2024 [...] ORDERABLES Final Re sult Performing Organization Address [facility] Co de Phone Number DOLORES BETH [address] [place] [address] * (ABNORMAL) CBC with auto differential (07/30/2024 [...] ORDERABLES Final Re sult Performing Organization Address [facility] Co de Phone Number DOLORES BETH [address] [place] [address] * Hepatitis panel, acute (08/29/2021 2:30 PM CDT) Pathologist [facility] Hep A IgM Nonreactive Nonreactive [place] [...] GENERAL ORD ERABLES Final Result DOLORES BETH [address] Department of Laboratories [place], [place] [id number] from Last 3 Months or Most Recently Relevant to Health Maintenance
--- OUTSIDE RECORDS SUMMARY | 2024-08-20 21:42 | XMS_ITS | Clinical Summary ---
Author Organization [facility] Address [address], [place] [address] Phone Care Team Providers Care Cloth Presser Name Role Phone Tricia Trejo MD Primary Care Provider [phone] Allergies Active Allergy Reactions Criticality Noted Date [...] 1994 Influenza Vaccine (Season Ended) [address] [place] [place] [address] Care Teams Cloth Presser Relationship Specialty Start Date End Date Tricia Trejo MD [address] [place] [address] [address] [place] [address] PCP - General Family Medicine 10/14/20
--- OUTSIDE RECORDS SUMMARY | 2024-08-20 21:42 | XMS_ITS | Encounter Summary ---
Author Organization [facility] Healthcare Address [address] [place] [address] Care Team Providers Care Finished Metal Repairer Name Role Phone Louisa Anderson MD Unavailable [phone] Juan Luis Fritz MD Unavailable [phone] Joshua Motley MD Unavailable [phone] Addie Moore NP Primary Care Provider [phone] Wily oTlbert RN Unavailable [phone] Reason for Visit * Reason Onset Date Comments Cough 08/20/2024 Encounter Details Date Type Department Care Team (Late st Contact Info) Description 08/20/2024 Nurse Triage [facility] Medical Group Primary Care at [address] [address] Addie Moore NP [address] [place] [address] Social History Tobacco Use Types Packs/Day Years Used Date Smoking Tobacco: Former Cigarettes Q uit: 10/01/2020 Smokeless Tobacco: Never Alcohol Use Standard Drinks/Week Comments Yes 0 (1 standard drink = 0.6 oz pur e alcohol) [facility] Utilities Answer Date Recorded In the [...] often do you attend chur ch or congregation services? Never 04/20/2024 Do you belong to any clubs o r organizations such as holiness groups, unions, fraternal or athletic groups, or [...] any time in the past 12 m [facility], were you homeless or [...] Patient wants to be seen Protocols used: [id number] * Telephone Encounter - Chelsey Cruz RN [...] on filedocumented in this encounter Care Teams Finished Metal Repairer Relationship Specialty Start Date End Date Addie Moore NP [address] [place] [address] PCP - General Family Medicine 04/14/23 Louisa Anderson MD [address] [place] [address] Consulting Physician Cardiovascular Disease 09/09/21 Juan Luis Fritz MD [address] [place] [address] Consulting Physician Nephrology 09/09/21 Joshua Motley MD [address] [place] [address] Referring Physician Nephrology 02/15/22 Wily Tolbert RN [address] [place] [address] [place] [address] Associate Programmer Analyst 04/30/24 documented as of this encounter
--- OUTSIDE RECORDS SUMMARY | 2024-08-20 21:42 | XMS_ITS | Clinical Summary ---
Author Organization [facility] Address [facility] [place] [address] Care Team Providers Care Casino Beverage Server Name Role Phone None, Provider MD Primary [...] patient's age to complete this topic Insurance [facility] Advance Directives * Full Code (Latest Code Status on File) Date Activated Date Inactivated Comments 11/02/2019 2:38 PM 11/03/2019 12:18 PM Care Teams Casino Beverage Server Relationship Specialty Start Date End Date None, Provider, PCP - General 11/02/19
--- OUTSIDE RECORDS SUMMARY | 2024-08-20 21:42 | XMS_ITS | Encounter Summary ---
Author Organization [facility] Healthcare Address [address] [place] [address] Care Team Providers Care Forensic Psychiatrist Name Role Phone Louisa Anderson MD Unavailable [phone] Juan Luis Fritz MD Unavailable [phone] Joshua Motley MD Unavailable [phone] Addie Moore NP Primary Care Provider [phone] Wily Tolbert RN Unavailable [phone] Reason for Visit * Reason Onset Date Comments Appointment Request 08/13/2024 Encounter Details Date Type Department Care Team (Late st Contact Info) Description 08/13/2024 Telephone [facility] Medical Group Primary Care at [address] [address] Addie Moore NP [address] [place] [address] Appointment Request Social History Tobacco Use Types Packs/Day Years Used Date Smoking Tobacco: Former Cigarettes Q uit: 10/01/2020 Smokeless Tobacco: Never Alcohol Use Standard Drinks/Week Comments Yes 0 (1 standard drink = 0.6 oz pur e alcohol) [facility] Utilities Answer Date Recorded In the past 12 months has [employer] electric, gas, oil, or water company [...] often do you attend chur ch or restorationism services? Never 04/20/2024 Do you belong to [...] any time in the past 12 m [facility], were you homeless or living in a retirement (including now)? No 04/20/2024 Personal Safety Answer [...] care team offered (e.g., nurse practioner(s), physician registered nurse first assistant(s)) ? Yes Additional Comments: ER Follow up [facility] arm pain 08/12/24 Does message need to be routed? Yes-Action Needed documented in this encounter Plan of Treatment Not on file documented as of this encounter Visit Diagnoses Not on filedocumented in this encounter Care Teams Forensic Psychiatrist Relationship Specialty Start Date End Date Addie Moore NP [address] [place] [address] PCP - General Family Medicine 04/14/23 Louisa Anderson MD [address] [place] [address] Consulting Physician Cardiovascular Disease 09/09/21 Juan Luis Fritz MD [address] [place] [address] Consulting Physician Nephrology 09/09/21 Joshua Motley MD [address] [place] [address] Referring Physician Nephrology 02/15/22 Wily Tolbert RN [address] [place] [address] [address] [place] [address] Gleason Operator 04/30/24 documented as of this encounter
[2024-08-20 21:43] VITALS: O2SAT 90
--- NOTE | 2024-08-20 21:47 | ECG_ITS ---
Test Date: 2024-08-20 22:22:14 Measurements Intervals Mcconnell Rate: 89 P: 19 MD: 76 QRS: 4 QRSD: 81 T: -4 QT: 375 QTc: 457 Interpretive Statements SINUS RHYTHM WITH SHORT MD INTERVAL POSSIBLE ANTERIOR MYOCARDIAL INFARCTION , OF INDETERMINATE AGE [30 ms Q WAVE IN V3/V4, OR R < 0.2 mV IN V4] Compared to ECG 08/12/2024 19:50:27 NO SIGNIFICANT CHANGES Electronically Signed On 08-21-2024 14:56:33 CDT by Pippa Espinoza M.D.
[2024-08-20 22:35] LABS: Basophils Percent Auto 0.2 % (0.2-1.2); Hematocrit 35.3 % (37.0-47.0); Immature Granulocyte Absolute 0.04 K/mm3 (0.00-0.031); Immature Granulocyte Percent A 0.5 % (0-0.5); Immature Platelet Fraction Pct 1.4 % (0.9-11.2); Lymphocytes Absolute Auto 0.51 K/mm3 (0.9-3.2); Lymphocytes Percent Auto 6.2 % (18.3-44.2); Mean Corpuscular Hemoglobin 26.8 pg (26-34); Mean Corpuscular Volume 78.8 fl (80-100); Mean Platelet Volume 9.1 fl (7.4-10.4); Monocytes Absolute Auto 1.1 K/mm3 (0.1-0.6); Monocytes Percent Auto 13.8 % (2.6-8.5); Neutrophils Absolute Auto 6.5 K/mm3 (1.3-6.7); Neutrophils Percent Auto 79.3 % (45.5-73.1); Platelet Count Result 201 k/mm3 (150-375); Red Blood Count 4.48 M/mm3 (4.2-5.4); Red Cell Distribution Width 16.4 % (11.5-14.5); White Blood Count 8.2 K/mm3 (4.5-10.0)
[2024-08-20 22:44] LABS: Partial Thromboplastin Time 31.9 Seconds (22.3-36.8)
[2024-08-20 22:45] LABS: Lactic Acid Reflex 1.1 mmol/L (0.7-2.0)
[2024-08-20 22:46] LABS: Alanine Aminotransferase 16 U/L (6-35); Albumin Level 3.9 g/dL (3.5-5.1); Alkaline Phosphatase 143 U/L (38-126); Anion Gap 19 mmol/L (4-12); Aspartate Amino Transferase 50 U/L (14-36); Bilirubin,Total 0.8 mg/dL (0.2-1.3); Blood Urea Nitrogen 64 mg/dL (7-17); Calcium 7.2 mg/dL (8.4-10.2); Carbon Dioxide 18 mmol/L (22-30); Chloride 96 mmol/L (98-107); Estimated CRCL calculation 5 ml/min; Estimated Glomerular Filt Rate 6; Glucose 76 mg/dL (65-110); Lipase 305 U/L (23-300); Magnesium 1.7 mg/dL (1.6-2.3); Potassium 4.3 mmol/L (3.4-5.0); Sodium 133 mmol/L (137-145)
[2024-08-20 22:50] VITALS: O2SAT 85
[2024-08-20 22:55] VITALS: BP 182/86; PULSE 90; RESP 20; O2SAT 100
[2024-08-20 23:09] LABS: Anisocytosis 1+; Platelet Estimate Adequate (Adequate); Schistocytes None Seen; Target Cells 1+
--- NOTE | 2024-08-20 23:20 | PC.NURSE ---
This tech assisted pt to restroom by wheelchair and when pt laid down in stretcher, the pulse ox was reapplied to pt. Pt's pulse ox dropped to 86% on RA. ED physician notified and pt was put on 2L via nasal cannula.
[2024-08-20 23:29] LABS: Influenza A QL RT-PCR Negative (Negative); Influenza B QL RT-PCR Negative (Negative); RSV RNA, RT-PCR Negative (Negative); SARS-CoV-2 RNA PCR Positive (Negative)
[2024-08-21] VITALS (30 sets, daily range): BP systolic 167–239; BP diastolic 68–107; PULSE 80–109; RESP 16–24; TEMP 36.8–39.3; O2SAT 92–100; BMI 17.4
--- NOTE | 2024-08-21 00:32 | ED_ITS ---
HPI - General Adult General Chief complaint: Nausea/Vomiting/Diarrhea Stated complaint: vomiting Time Seen by Provider: 08/20/24 21:32 History of Present Illness HPI narrative: This is an 88-year-old female history of CHF, COPD, ESRD on hemodialysis TTS presenting nausea vomiting x2 days. Associated symptoms include weakness chills and decreased oral intake. Patient seen emergency department 08/17 for URI symptoms was discharged home. At that time her COVID was negative. Denies any fevers chest pain difficulty breathing abdominal pain or urinary symptoms. Last underwent dialysis on Tuesday and went to full session. [employer] - Dr. Motley. Related Data Home Medications Medication Instructions Recorded Confirmed Last Taken Type aspirin 81 mg tablet 81 mg PO DAILY 05/10/20 03/10/24 09/03/23 History melatonin 3 mg tablet 3 mg PO HS PRN Sleep 12/08/22 03/10/24 09/03/23 History omeprazole 40 mg capsule,delayed 40 mg PO DAILY 12/08/22 03/10/24 1 Day Ago History release ~09/03/23 oxybutynin chloride 5 mg tablet 5 mg PO HS 12/08/22 03/10/24 09/03/23 History trazodone 50 mg tablet 50 mg PO HS 12/08/22 03/10/24 09/03/23 History ergocalciferol (vitamin D2) 1,250 50,000 unit PO BID 10/11/23 03/10/24 Unknown History mcg (50,000 unit) capsule ticagrelor 90 mg tablet (Brilinta) 90 mg PO BID 10/11/23 03/10/24 Unknown History albuterol sulfate 90 mcg/actuation 2 puff inhalation Q6H PRN 12/14/23 03/10/24 Unknown History aerosol inhaler Shortness Of Breath lisinopril 20 mg tablet 20 mg PO DAILY 12/15/23 03/10/24 12/14/23 History atorvastatin 80 mg tablet 80 mg PO HS 03/10/24 03/10/24 Unknown History carvedilol 25 mg tablet 25 mg PO BIDWM 03/10/24 03/10/24 Unknown History Allergies Allergy/AdvReac Type Severity Reaction Status Date / Time Penicillins Allergy Unknown Unknown,Ham Verified 08/20/24 21:12 h [facility] Past Medical History Medical History Hyperparathyroidism due to ESRD on dialysis End-stage renal disease on hemodialysis Tuesday. Dialysis managed by Dr. Joshua Motley Hyperlipidemia Chronic anemia History of blood transfusion. COPD with emphysema Peripheral arterial disease Combined systolic and diastolic congestive heart failure Echocardiogram on 09/10/2020 EF of 20 to 25%, grade 1 diastolic dysfunction, reduced RV systolic function. 12/2020 echo EF 40-46% with segmental wall motion abnormalities Gastric AVM Cardiomyopathy Presumed ischemic with moderately sized moderately severe reversible defect and small mild non reversible infarct on Lexiscan stress on 09/12/2020. Hypertension Surgical History Surgical History Surgically constructed arteriovenous fistula Left upper arm History of colonoscopy History of colon polyps, internal hemorrhoids, and diverticulosis. History of esophagogastroduodenoscopy History of gastric erosions, gastric polyps, and duodenal AVMs. History of revascularization procedure of lower extremity (10/2019) Bilateral lower extremity stents per Dr. Carrillo. History of vascular surgery (06/12/13) Aorto bi-iliac bypass graft per Dr. Carrillo. Family History Family History Mother Alzheimer disease Father Emphysema of lung Social History Social History Social History: Surrogate medical decision maker: Dhaval Allen, hay. Code status: Full code. Smoking packs per day: 1 Smoking cigarettes per day: 20.0 Years smoked: 55 Smoking pack-years: 55.00 Smoking status: Former smoker Second hand tobacco smoke exposure: Yes Alcohol intake: never Substance use: never Substance use type: does not use Do You Feel Safe in your Home?: Yes Lack of Transportation: No Lack of Food: Never True Current Housing: I Have Housing Concerned About Future Housing: No Difficulty Paying Gas/Electric Bills: No Difficulty Paying for Meds: No Currently Unemployed: No Education: Associate Degree Difficulty w/ Childcare or Family Care: No Additional living arrangements comments: . Lives with her only son in [place]. Additional occupation/education comments: Retired from the [employer]. Spiritual care concerns: No Exam 2 Narrative: APPEARANCE: No apparent distress. Head: atraumatic. EYES: EOMI, NOSE: Atraumatic NECK: Trachea midline RESPIRATORY: No increased rate of breathing CARDIOVASCULAR: RRR, no peripheral edema ABDOMINAL: Non-distended soft nontender MUSCULOSKELETAl: No obvious deformities NEURO: Alert. Moving 4/4 extremities SKIN:: Warm, dry. Normal color PSYCHIATRIC: Normal affect Course Vital Signs Vital signs: Vital Signs Temperature 98.2 F 08/20/24 21:31 Pulse Rate 90 08/20/24 21:31 Respiratory Rate 16 08/20/24 21:31 Blood Pressure 165/65 H 08/20/24 21:31 Pulse Oximetry 95 08/20/24 21:31 Temperature 98.2 F 08/20/24 21:31 Pulse Rate 90 08/20/24 22:55 Respiratory Rate 20 08/20/24 22:55 Blood Pressure 182/86 H 08/20/24 22:55 Pulse Oximetry 100 08/20/24 22:55 Oxygen Delivery Nasal Cannula 08/20/24 22:55 Oxygen Flow Rate 2 08/20/24 22:55 Medical Decision Making [facility] Narrative Medical decision making narrative: -Course: 78-year-old female presenting with 6 days of viral syndrome. Lungs are clear to auscultation. no evidence of fluid overload. Patient is positive for COVID-19. Chest x-ray shows a persistent right-sided pleural effusion but no focal infiltrate. Laboratory studies redemonstrated her end-stage renal disease but no other significant findings. Patient is maintaining her oxygen saturation at rest but when ambulating dips down into the low 80s. Placed on 2 L supplemental oxygen. Given dexamethasone for hypoxic respiratory failure in the setting COVID-19. URI symptoms have been going on for approximately 6-7 days. Patient will be admitted the hospital for further management for COVID-19 and hypoxic respiratory failure. -DDX includes but is not limited to: COVID 19, pneumonia, sepsis, UTI, dehydration -Co-morbidities complicating care: CHF, COPD, end-stage renal disease Independent EKG interpretation: Rhythm [sinus], Rate 89 [place] -[normal], SD -[76], QRS [narrow], QTC [457], T waves -[negative for concerning inversions], ST Segments - [Negative for concerning elevations] Final interpretations: [Normal Sinus Rhythm] Vital Signs Vital Signs: Vital Signs Temperature 98.2 F 08/20/24 21:31 Pulse Rate 90 08/20/24 21:31 Respiratory Rate 16 08/20/24 21:31 Blood Pressure 165/65 H 08/20/24 21:31 Pulse Oximetry 95 08/20/24 21:31 Temperature 98.2 F 08/20/24 21:31 Pulse Rate 90 08/20/24 22:55 Respiratory Rate 20 08/20/24 22:55 Blood Pressure 182/86 H 08/20/24 22:55 Pulse Oximetry 100 08/20/24 22:55 Oxygen Delivery Nasal Cannula 08/20/24 22:55 Oxygen Flow Rate 2 08/20/24 22:55 Lab Data 08/20/24 22:24 08/20/24 22:24 Labs: Lab Results 08/20/24 Range/Units 22:24 WBC 8.2 (4.5-10.0) K/mm3 RBC 4.48 (4.2-5.4) M/mm3 Hgb 12.0 (12.0-15.0) g/dL Hct 35.3 L (37.0-47.0) % MCV 78.8 L (80-100) fl MCH 26.8 (26-34) pg MCHC 34.0 (32-36) g/dl RDW 16.4 H (11.5-14.5) % Plt Count 201 (150-375) k/mm3 MPV 9.1 (7.4-10.4) fl Immature Gran % (Auto) 0.5 (0-0.5) % Neut % (Auto) 79.3 H (45.5-73.1) % Lymph % (Auto) 6.2 L (18.3-44.2) % [place] % (Auto) 13.8 H (2.6-8.5) % Eos % (Auto) 0.0 (0-4.4) % Baso % (Auto) 0.2 (0.2-1.2) % Lymph # (Auto) 0.51 L (0.9-3.2) K/mm3 [place] # (Auto) 1.1 H (0.1-0.6) K/mm3 Eos # (Auto) 0.0 (0-0.3) K/mm3 Baso # (Auto) 0.0 (0.0-0.1) K/mm3 Abs Immat Gran (auto) 0.04 H (0.00-0.031) K/mm3 Absolute Neuts (auto) 6.5 (1.3-6.7) K/mm3 Absolute Nucleated RBC 0.000 (0.0-0.012) K/mm3 Band Neutrophils % Not Reportable Nucleated RBC % 0.0 (0.0-0.2) % Platelet Estimate Adequate (Adequate) % Immature Plt Fraction 1.4 (0.9-11.2) % Anisocytosis 1+ Target Cells 1+ Schistocytes None seen PT 13.0 (11.1-14.7) Seconds INR 1.0 APTT 31.9 (22.3-36.8) Seconds Sodium 133 L (137-145) mmol/L Potassium 4.3 (3.4-5.0) mmol/L Chloride 96 L (98-107) mmol/L Carbon Dioxide 18 L (22-30) mmol/L Anion Gap 19 H (4-12) mmol/L BUN 64 H D (7-17) mg/dL Creatinine 6.89 H (0.7-1.0) mg/dL Estim Creat Clear Calc 5 ml/min Estimated GFR 6 L (59 - ) Glucose 76 (65-110) mg/dL Lactic Acid 1.1 (0.7-2.0) mmol/L Calcium 7.2 L (8.4-10.2) mg/dL Magnesium 1.7 (1.6-2.3) mg/dL Total Bilirubin 0.8 (0.2-1.3) mg/dL AST 50 H (14-36) U/L ALT 16 (6-35) U/L Alkaline Phosphatase 143 H (38-126) U/L Total Protein 7.0 (6.3-8.2) g/dL Albumin 3.9 (3.5-5.1) g/dL Lipase 305 H (23-300) U/L Influenza A (RT-PCR) Negative (Negative) Influenza B (RT-PCR) Negative (Negative) RSV (RT-PCR) Negative (Negative) SARS-CoV-2 RNA (RT-PCR) Positive A (Negative) Discharge Plan Discharge Clinical Impression: COVID, Hypoxic respiratory failure Patient Disposition: Still a Patient Condition: Stable Patient Language: Pashto Prescriptions: No Action aspirin 81 mg Tablet 81 mg PO DAILY isosorbide mononitrate 30 mg tablet extended release 24 hr 30 mg PO DAILY Qty: 30 0RF trazodone 50 mg tablet 50 mg PO HS omeprazole 40 mg capsule,delayed release(DR/EC) 40 mg PO DAILY oxybutynin chloride 5 mg tablet 5 mg PO HS melatonin 3 mg tablet 3 mg PO HS PRN (Reason: Sleep) ergocalciferol (vitamin D2) 1,250 mcg (50,000 unit) capsule 50,000 unit PO BID Brilinta 90 mg tablet 90 mg PO BID Patient Comments: Patient stated that it is not re-fillable. albuterol sulfate 90 mcg/actuation HFA aerosol inhaler 2 puff INHALATION Q6H PRN (Reason: Shortness Of Breath) lisinopril 20 mg tablet 20 mg PO DAILY atorvastatin 80 mg tablet 80 mg PO HS carvedilol 25 mg tablet 25 mg PO BIDWM nifedipine [Procardia XL] 30 mg Tablet Extended Release 24hr 60 mg PO DAILY Qty: 60 0RF Follow-up/Referrals: Teresa,Addie Flanagan [employer] [Primary Care Provider] -
--- NOTE | 2024-08-21 00:56 | P.HP_ITS ---
H&P: HPI History of Present Illness Date/Time: 08/21/24 00:56 Chief Complaint: Shortness of breath Narrative: An 88-year-old female with a past medical history of CHF, COPD, and end-stage renal disease on hemodialysis (Tuesday, , Tuesday) presented with mainly cough associated with nausea and vomiting for 2 days. Patient reports her son was ill 2 days ago and visited the ED and was positive for COVID. Pertinent ED labs: WBC 8.2, hemoglobin 12, hematocrit 35.3, platelet 201, sodium 133, potassium 4.3, BUN 64, creatinine 6.8 UA pending Chest x-ray: Persistent small right pleural effusion. The patient is admitted due to COVID. The patient is currently on a 2 L nasal cannula. The patient does not use oxygen at baseline. Started on remdesivir and dexamethasone. Patient reports she follows up with Dr. Motley. Denies any diabetes and reports an unknown reason for dialysis. Review of Systems Review of Systems: All systems reviewed & are unremarkable except as noted in HPI and below PMFSH Past Medical History Medical History Hyperparathyroidism due to ESRD on dialysis End-stage renal disease on hemodialysis Tuesday. Dialysis managed by Dr. Joshua Motley Hyperlipidemia Chronic anemia History of blood transfusion. COPD with emphysema Peripheral arterial disease Combined systolic and diastolic congestive heart failure Echocardiogram on 09/10/2020 EF of 20 to 25%, grade 1 diastolic dysfunction, reduced RV systolic function. 12/2020 echo EF 40-46% with segmental wall motion abnormalities Gastric AVM Cardiomyopathy Presumed ischemic with moderately sized moderately severe reversible defect and small mild non reversible infarct on Lexiscan stress on 09/12/2020. Hypertension Surgical History Surgical History Surgically constructed arteriovenous fistula Left upper arm History of colonoscopy History of colon polyps, internal hemorrhoids, and diverticulosis. History of esophagogastroduodenoscopy History of gastric erosions, gastric polyps, and duodenal AVMs. History of revascularization procedure of lower extremity (10/2019) Bilateral lower extremity stents per Dr. Carrillo. History of vascular surgery (06/12/13) Aorto bi-iliac bypass graft per Dr. Carrillo. Family History Family History Mother Alzheimer disease Father Emphysema of lung Social History Social History Social History: Surrogate medical decision maker: hay Lang. Code status: Full code. Smoking packs per day: 1 Smoking cigarettes per day: 20.0 Years smoked: 55 Smoking pack-years: 55.00 Smoking status: Former smoker Second hand tobacco smoke exposure: Yes Alcohol intake: former Substance use: never Substance use type: does not use Do You Feel Safe in your Home?: Yes Lack of Transportation: No Lack of Food: Never True Current Housing: I Have Housing Concerned About Future Housing: No Difficulty Paying Gas/Electric Bills: No Difficulty Paying for Meds: No Currently Unemployed: No Education: Bachelor's Degree Difficulty w/ Childcare or Family Care: No Additional living arrangements comments: . Lives with her only son in [place]. Additional occupation/education comments: Retired from the [employer]. Spiritual care concerns: No Meds Home Medications and Allergies Home Medications Medication Instructions Recorded Confirmed Type aspirin 81 mg tablet 81 mg PO DAILY 05/10/20 08/21/24 History isosorbide mononitrate 30 mg 30 mg PO DAILY #30 tabs 09/20/20 08/21/24 Rx tablet,extended release 24 hr melatonin 3 mg tablet 3 mg PO HS PRN Sleep 12/08/22 08/21/24 History omeprazole 40 mg capsule,delayed 40 mg PO DAILY 12/08/22 08/21/24 History release oxybutynin chloride 5 mg tablet 5 mg PO HS 12/08/22 08/21/24 History trazodone 50 mg tablet 50 mg PO HS 12/08/22 08/21/24 History ergocalciferol (vitamin D2) 1,250 50,000 unit PO BID 10/11/23 08/21/24 History mcg (50,000 unit) capsule atorvastatin 80 mg tablet 80 mg PO HS 03/10/24 08/21/24 History carvedilol 25 mg tablet 25 mg PO BIDWM 03/10/24 08/21/24 History lisinopril 40 mg tablet 40 mg PO DAILY 08/21/24 08/21/24 History nifedipine 60 mg tablet,extended 60 mg PO Q12H 08/21/24 08/21/24 History release Allergies Allergy/AdvReac Type Severity Reaction Status Date / Time Penicillins Allergy Unknown Unknown,Ham Verified 08/20/24 21:12 h Vital Signs Vital Signs - 24 hr 08/20/24 21:31 08/20/24 21:43 08/20/24 22:50 Temperature 98.2 F Pulse Rate 90 Respiratory Rate 16 Blood Pressure 165/65 H Pulse Oximetry 95 90 85 L Oxygen Delivery Room Air Room Air Oxygen Flow Rate 08/20/24 22:55 08/20/24 22:55 Temperature Pulse Rate 90 Respiratory Rate 20 Blood Pressure 182/86 H Pulse Oximetry 100 100 Oxygen Delivery Nasal Cannula Oxygen Flow Rate 2 Exam Narrative: APPEARANCE: No apparent distress. Head: atraumatic. EYES: EOMI, NOSE: Atraumatic NECK: Trachea midline RESPIRATORY: No increased rate of breathing CARDIOVASCULAR: RRR, no peripheral edema ABDOMINAL: Non-distended soft nontender MUSCULOSKELETAl: No obvious deformities NEURO: Alert. Moving 4/4 extremities SKIN:: Warm, dry. Normal color PSYCHIATRIC: Normal affect H&P: Results Labs Labs: Short CBC 08/20/24 Range/Units 22:24 WBC 8.2 (4.5-10.0) K/mm3 Hgb 12.0 (12.0-15.0) g/dL Hct 35.3 L (37.0-47.0) % Plt Count 201 (150-375) k/mm3 BMP 08/20/24 22:24 Sodium 133 L Potassium 4.3 Chloride 96 L Carbon Dioxide 18 L BUN 64 H D Creatinine 6.89 H Glucose 76 Calcium 7.2 L Liver Function 08/20/24 Range/Units 22:24 Total Bilirubin 0.8 (0.2-1.3) mg/dL AST 50 H (14-36) U/L ALT 16 (6-35) U/L Alkaline Phosphatase 143 H (38-126) U/L Albumin 3.9 (3.5-5.1) g/dL Assessment and Plan Assessment and plan (1) Hypertension: Code(s): I10 - Essential (primary) hypertension Status: Acute (2) End stage renal disease: Code(s): N18.6 - End stage renal disease Status: Chronic (3) ESRD on dialysis: Code(s): N18.6 - End stage renal disease; Z99.2 - Dependence on renal dialysis Status: Acute Plan COVID positive on admission Patient was started on remdesivir given new oxygen requirement, added Decadron Contact, droplet precautions DuoNeb scheduled q.6 Tylenol as needed for fever, body aches Incentive spirometer NVD Started Zofran Stool studies C diff ordered ESRD on dialysis Consulted nephrology Dialysis Tuesday, and Tuesday DVT prophylaxis: Heparin 5000 units subQ GI prophylaxis: Protonix 40 mg IV q.d. Hospitalist [facility] Advance Care Plan I have confirmed that the patient's Advanced Care Plan is present, code status is documented, or surrogate decision maker is listed in patient medical record.: Yes Medication Reconciliation I have utilized all available resources to obtain, update and review the patients current medications (includes all prescriptions, OTC, herbals, c annabis, and nutritional supplements).: Yes
[2024-08-21 02:09] LABS: Add Urine Microscopic? YES; Appearance Urine Cloudy (Clear); Bacteria Urine 2+ /hpf; Bilirubin Urine Negative (Negative); Blood Urine Trace (Negative); Budding Yeast Urine Present /hpf; Color Urine Dark Yellow (Yellow); Glucose Urine UA Negative (Negative); Ketones Urine Trace mg/dL (Negative); Leukocyte Esterase Ur 1+ LEU/UL (Negative); Mucus Urine Present /lpf; Need Manual Microscopic Reviewed; Nitrate Urine Negative (Negative); Non Pathogenic Casts 0-2; Protein Urine 3+ mg/dL (Negative); RBC Urine 0-2 /hpf (0-2); Specific Grav Ur 1.017 (1.001-1.035); Squamous Epithelial Cell Urine Moderate /hpf (Few); Urobilinogen Urine 0.2 mg/dL (<2.0)
[2024-08-21] MEDS: IPRATROPIUM 0.5 MG/ALBUTEROL SULFATE 2.5 MG AMPUL.NEB 3 ML INHALATION ×2 (02:48→09:25)
[2024-08-21] MEDS: dexAMETHasone SOD PHOS INJ 10 MG/ML 1 ML VIAL IV PUSH (03:05)
[2024-08-21] MEDS: REMDESIVIR 200 MG/NS 250 ML 200 MG/250 ML BAG 250 MG IVPB (03:05)
[2024-08-21] MEDS: LACTATED RINGERS 1,000 ML 100 ML IV CONT (05:30)
[2024-08-21 05:34] LABS: MRSA (PCR) NOT DETECTED (NOT DETECTE)
[2024-08-21] MEDS: PANTOPRAZOLE SODIUM IV 40 MG VIAL IV PUSH (08:25)
[2024-08-21] MEDS: guaiFENesin 12 HR 600 MG TABCR 1200 MG PO (08:27)
[2024-08-21] MEDS: HEPARIN SODIUM 5,000 UNITS/ML VIAL 5000 UNITS SUB-Q (08:32)
--- NOTE | 2024-08-21 09:43 | PM.EVENT ---
Event Note Event Note Event Note: Patient is a 78-year-old female who was admitted earlier this evening for acute respiratory failure with hypoxia secondary to COVID-19 infection. she was seen and assessed by previous provider followed up with patient today nephrology consulted plan for dialysis as patient has end-stage renal disease and scheduled Tuesday, Tuesday, Fridays. Patient had been started on remdesivir as well as dexamethasone due to acute respiratory failure with hypoxia. I also initiated patient on IV Rocephin UA was suspicious for possible urinary tract infection. after reviewing over patient's medications I did discontinue her home lisinopril due to her renal disease and added hydralazine t.i.d. 50 mg patient was hypertensive present on arrival with BP as high as 191/71. Patient was evaluated while in Dialysis still hypertensive with BP 237/107 noted ordered now dose of 20mg IV hydralazine. I explained to the patient about discontinuing her Lisinopril with her ESRD and continued her Procardia 6o mg Q12 adn PO hydralazine she stated she will just return to taking what she was at home. Patient was also made aware of temperature of 102 likely secondary to COVID gave acetomorphine. Patient continues to state she is going home after dialysis I have mad her her aware of the potential outcomes of living AMA including stroke, heart attack, respiratory failure, and even she states she still plans to sign herself out AMA.
[2024-08-21 10:01] LABS: Hematocrit 31.4 % (37.0-47.0); Hemoglobin 11.1 g/dL (12.0-15.0); Mean Corpuscular HGB Conc 35.4 g/dl (32-36); Mean Corpuscular Hemoglobin 27.2 pg (26-34); Mean Platelet Volume 8.9 fl (7.4-10.4); Platelet Count Result 178 k/mm3 (150-375); Red Blood Count 4.08 M/mm3 (4.2-5.4); Red Cell Distribution Width 16.2 % (11.5-14.5); White Blood Count 7.1 K/mm3 (4.5-10.0)
[2024-08-21 10:18] LABS: Alanine Aminotransferase 15 U/L (6-35); Albumin Level 3.4 g/dL (3.5-5.1); Alkaline Phosphatase 115 U/L (38-126); Anion Gap 18 mmol/L (4-12); Aspartate Amino Transferase 42 U/L (14-36); Bilirubin,Total 0.5 mg/dL (0.2-1.3); Blood Urea Nitrogen 70 mg/dL (7-17); Calcium 6.5 mg/dL (8.4-10.2); Carbon Dioxide 15 mmol/L (22-30); Chloride 99 mmol/L (98-107); Estimated CRCL calculation 4 ml/min; Estimated Glomerular Filt Rate 6; Glucose 220 mg/dL (65-110); Potassium 4.2 mmol/L (3.4-5.0); Sodium 132 mmol/L (137-145)
[2024-08-21 10:29] LABS: Hepatitis B Surface Antigen Negative (Negative)
[2024-08-21] MEDS: NIFEdipine 30 MG TAB.ER.24 60 MG PO (10:44)
[2024-08-21] MEDS: dexAMETHasone 2 MG TABLET 6 MG PO (10:45)
[2024-08-21] MEDS: ASPIRIN 81 MG ENTERIC TABLET PO (10:45)
[2024-08-21] MEDS: ISOSORBIDE MONONITRATE 30 MG TAB.ER.24H PO (10:45)
[2024-08-21 10:47] LABS: Hepatitis B Surface Anti Res Negative
--- NOTE | 2024-08-21 13:40 | P.CONNP_ITS ---
Assessment and Plan Assessment and plan (1) End stage renal disease: Code(s): N18.6 - End stage renal disease Status: Chronic Assessment and Plan: * HD today * continue T/T/S dialysis schedule while hospitalized * follow electrolytes, volume status, and clearance (2) Acute respiratory failure with hypoxia: Code(s): J96.01 - Acute respiratory failure with hypoxia Status: Acute Assessment and Plan: * presumably secondary to COVID infection * no evidence of:fluid overload/pulmonary edema/CHF * COPD could be playing a role as well * supplemental oxygen - wean as tolerated * follow respirator status (3) COVID: Code(s): U07.1 - COVID-19 Status: Acute Assessment and Plan: * positivity noted in ER/admission * initiated on remdesivir and steroids * contact and droplet precautions * nebulizer treatments as scheduled * Tylenol as needed for fever, body aches * follow respiratory status (4) Nausea & vomiting: Code(s): R11.2 - Nausea with vomiting, unspecified Status: Acute Assessment and Plan: * noted on presentation * on anti-emetics * follow clinical symptoms (5) Hypertension: Qualifiers: Hypertension type: essential hypertension Qualified Code(s): I10 - Essential (primary) hypertension Code(s): I10 - Essential (primary) hypertension Status: Chronic Assessment and Plan: * poor control at baseline * continue home medications * add PRN IV hydralazine * follow trend of hemodynamics (6) Anemia: Qualifiers: Anemia type: unspecified type Qualified Code(s): D64.9 - Anemia, unspecified Code(s): D64.9 - Anemia, unspecified Status: Chronic Assessment and Plan: * related to ESRD * Epogen with HD - hold since Hgb > 10 * follow trend of H/H I will continue follow the patient with you while she remains hospitalized make further recommendations as deemed necessary. Thank you for allowing me to participate in the care this patient. L History of Present Illness Reason for Consult Consult date: 08/21/24 Reason for consult: end stage renal disease Chief Complaint Chief complaint: COVID History of Present Illness Narrative: The patient is a 78-year-old female with a past medical history as outlined below who presented to [facility] Emergency room for nausea and vomiting. She states the nausea and vomiting has been going on for the past few days if not longer and has been associated with poor oral intake as well as generalized weakness and subjective chills. It should be noted the patient was seen in the ER at [facility] few days ago for upper respiratory infection symptoms and testing at that time was unremarkable and she was subsequently discharged home with supportive therapy. However, given the symptoms as mentioned, she presented to the ER for further assessment. Workup and evaluation emergency room demonstrated the patient be hemodynamically stable if not hypertensive. Her oxygen saturations were stable at rest but with ambulation dropped into low 80s percentile range she was placed on 2 L of supplemental oxygen due to this finding. Her chest x-ray showed a persistent right-sided pleural effusion but no focal infiltrates in her laboratory findings were unremarkable other than the fact they did represent her known history of end-stage renal disease. Viral testing for influenza and RSV were negative however she was found to be COVID positive. Given her hypoxia, she was initiated on steroids as well as remdesivir. Her urinalysis was somewhat suggestive of a urinary tract infection as well. Given these constellation of symptoms and findings, she was admitted to the hospital for further evaluation and therapy. Renal consultation was requested due to her end-stage renal disease. The patient normally dialyzes on a Tuesday, , Tuesday schedule under the care of Dr. Joshua Motley at [facility]. From a dialysis perspective, she usually does fairly well with relative stability in her monthly labs and fluid/volume status. She reports compliance with dialysis treatments for the most part and her last dialysis treatment was on Tuesday (08/18/2024) although she did and her treatment about half an hour early. She is due for dialysis today. Currently, at the time my evaluation, she is receiving dialysis and appears to be in no acute distress (she was seen on dialysis at 1:30PM). Review of Systems 2 Review of Systems: As per HPI. [facility] Past Medical History Medical History (Updated 08/22/24 @ 08:50 by Cristine Grajeda, MORENA) Hypertensive cardiomegaly Hyperparathyroidism due to ESRD on dialysis End-stage renal disease on hemodialysis Tuesday. Dialysis managed by Dr. Joshua Motley Hyperlipidemia Chronic anemia History of blood transfusion. COPD with emphysema Peripheral arterial disease Combined systolic and diastolic congestive heart failure Echocardiogram on 09/10/2020 EF of 20 to 25%, grade 1 diastolic dysfunction, reduced RV systolic function. 12/2020 echo EF 40-46% with segmental wall motion abnormalities Gastric AVM Cardiomyopathy Presumed ischemic with moderately sized moderately severe reversible defect and small mild non reversible infarct on Lexiscan stress on 09/12/2020. Hypertension Surgical History Surgical History Surgically constructed arteriovenous fistula Left upper arm History of colonoscopy History of colon polyps, internal hemorrhoids, and diverticulosis. History of esophagogastroduodenoscopy History of gastric erosions, gastric polyps, and duodenal AVMs. History of revascularization procedure of lower extremity (10/2019) Bilateral lower extremity stents per Dr. Carrillo. History of vascular surgery (06/12/13) Aorto bi-iliac bypass graft per Dr. Carrillo. Family History Family History Mother Alzheimer disease Father Emphysema of lung Social History Social History Social History: Surrogate medical decision maker: Dhaval Allen, hay. Code status: Full code. Smoking packs per day: 1 Smoking cigarettes per day: 20.0 Years smoked: 55 Smoking pack-years: 55.00 Smoking status: Former smoker Second hand tobacco smoke exposure: Yes Alcohol intake: former Substance use: never Substance use type: does not use Do You Feel Safe in your Home?: Yes Lack of Transportation: No Lack of Food: Never True Current Housing: I Have Housing Concerned About Future Housing: No Difficulty Paying Gas/Electric Bills: No Difficulty Paying for Meds: No Currently Unemployed: No Education: Bachelor's Degree Difficulty w/ Childcare or Family Care: No Additional living arrangements comments: . Lives with her only son in [place]. Additional occupation/education comments: Retired from the [employer]. Spiritual care concerns: No Meds Home Medications and Allergies Home Medications Medication Instructions Recorded Confirmed Type aspirin 81 mg tablet 81 mg PO DAILY 05/10/20 08/21/24 History isosorbide mononitrate 30 mg 30 mg PO DAILY #30 tabs 09/20/20 08/21/24 Rx tablet,extended release 24 hr melatonin 3 mg tablet 3 mg PO HS PRN Sleep 12/08/22 08/21/24 History omeprazole 40 mg capsule,delayed 40 mg PO DAILY 12/08/22 08/21/24 History release oxybutynin chloride 5 mg tablet 5 mg PO HS 12/08/22 08/21/24 History trazodone 50 mg tablet 50 mg PO HS 12/08/22 08/21/24 History ergocalciferol (vitamin D2) 1,250 50,000 unit PO BID 10/11/23 08/21/24 History mcg (50,000 unit) capsule atorvastatin 80 mg tablet 80 mg PO HS 03/10/24 08/21/24 History carvedilol 25 mg tablet 25 mg PO BIDWM 03/10/24 08/21/24 History lisinopril 40 mg tablet 40 mg PO DAILY 08/21/24 08/21/24 History nifedipine 60 mg tablet,extended 60 mg PO Q12H 08/21/24 08/21/24 History release Allergies Allergy/AdvReac Type Severity Reaction Status Date / Time Penicillins Allergy Unknown Unknown,Ham Verified 08/20/24 21:12 h Vital Signs Vital Signs Temp Pulse Resp BP Pulse Ox O2 Del Method O2 Flow Rate 08/21/24 13:30 98 236/107 H 08/21/24 13:15 94 227/90 H 08/21/24 13:12 95 224/93 H 08/21/24 13:05 102.7 F H 95 22 H 224/92 H 98 08/21/24 12:00 107 H 08/21/24 09:26 83 20 08/21/24 09:10 84 16 95 Nasal Cannula 1 08/21/24 08:32 88 08/21/24 08:32 88 18 100 Nasal Cannula 1 08/21/24 08:27 98.7 F 86 18 184/104 H 100 08/21/24 04:44 Nasal Cannula 2 08/21/24 04:00 99 08/21/24 02:57 80 20 08/21/24 02:49 98.2 F 96 18 190/85 H 100 08/21/24 02:43 99 22 H 167/88 H 92 08/21/24 02:30 99 22 H 167/88 H 92 08/21/24 00:55 90 22 H 191/71 H 100 08/20/24 22:55 100 Nasal Cannula 2 08/20/24 22:55 90 20 182/86 H 100 08/20/24 22:50 85 L Room Air 08/20/24 21:43 90 Room Air 08/20/24 21:31 98.2 F 90 16 165/65 H 95 Exam 2 Narrative: GENERAL APPEARANCE: elderly female in no acute distress HEENT: normocephalic, atraumatic, normal conjunctiva and sclera, nares patient NECK: no lymphadenopathy, thyromegaly, or JVD MOUTH: normal lips, teeth, and gums CARDIOVASCULAR: RRR, normal S1 and S2, no rub RESPIRATORY: clear anteriorly, decreased at bases ABDOMEN: soft, nontender, nondistended, positive bowel sounds present EXTREMITIES: no evidence of cyanosis, clubbing, or edema NEUROLOGICAL: alert and oriented x 3; CN II - XII intact bilaterally; no focal deficits noted Results Lab Results 08/21/24 09:50 08/21/24 09:50 Lab results: Most recent lab results Calcium 6.5 mg/dL (8.4-10.2) L 08/21/24 09:50 Magnesium 1.7 mg/dL (1.6-2.3) 08/20/24 22:24
--- NOTE | 2024-08-21 13:45 | PCPTNOTE ---
Attempted PT evaluation, pt at dialysis. Will follow.
[2024-08-21] MEDS: ACETAMINOPHEN 325 MG TABLET 650 MG PO (13:58)
[2024-08-21] MEDS: hydrALAZINE HCL 20 MG/ML VIAL IV PUSH (14:00)
--- NOTE | 2024-08-21 15:55 | PCRCNOTE ---
Window of time for administration has passed. See next scheduled administration.
--- NOTE | 2024-08-22 08:49 | P.DS_ITS ---
DS: Admitting Diagnosis Discharge Date 08/21/24 Admitting Diagnosis Acute respiratory failure with hypoxia secondary to COVID-19/ ESRD/ hypertensive urgency DS: Discharge Diagnosis Discharge Diagnosis (1) Hypertension: Code(s): I10 - Essential (primary) hypertension Status: Acute (2) End stage renal disease: Code(s): N18.6 - End stage renal disease Status: Chronic (3) ESRD on dialysis: Code(s): N18.6 - End stage renal disease; Z99.2 - Dependence on renal dialysis Status: Acute (4) Hypertensive emergency: Code(s): I16.1 - Hypertensive emergency Status: Acute Plan COVID positive on admission Patient was started on remdesivir given new oxygen requirement, added Decadron Contact, droplet precautions DuoNeb scheduled q.6 Tylenol as needed for fever, body aches Incentive spirometer NVD Started Zofran Stool studies C diff ordered ESRD on dialysis Consulted nephrology Dialysis Tuesday, and Tuesday hypertensive urgency: IV hydralazine resume patient's Procardia DS: Summary Hospital Course Reason for hospitalization: acute respiratory failure with hypoxia secondary to COVID-19/ ESRD/ hypertensive emergency Hospital Course: Admission: An 88-year-old female with a past medical history of CHF, COPD, and end-stage renal disease on hemodialysis (Tuesday, , Tuesday) presented with mainly cough associated with nausea and vomiting for 2 days. Patient reports her son was ill 2 days ago and visited the ED and was positive for COVID. Pertinent ED labs: WBC 8.2, hemoglobin 12, hematocrit 35.3, platelet 201, sodium 133, potassium 4.3, BUN 64, creatinine 6.8 UA pending Chest x-ray: Persistent small right pleural effusion. The patient is admitted due to COVID. The patient is currently on a 2 L nasal cannula. The patient does not use oxygen at baseline. Started on remdesivir and dexamethasone. Patient reports she follows up with Dr. Motley. Denies any diabetes and reports an unknown reason for dialysis. Hospital course: Patient is a 78-year-old female who was admitted earlier this evening for acute respiratory failure with hypoxia secondary to COVID-19 infection. she was seen and assessed by previous provider followed up with patient today nephrology consulted plan for dialysis as patient has end-stage renal disease and scheduled Tuesday, Tuesday, Fridays. Patient had been started on remdesivir as well as dexamethasone due to acute respiratory failure with hypoxia. I also initiated patient on IV Rocephin UA was suspicious for possible urinary tract infection. after reviewing over patient's medications I did discontinue her home lisinopril due to her renal disease and added hydralazine t.i.d. 50 mg patient was hypertensive present on arrival with BP as high as 191/71. Patient was evaluated while in Dialysis still hypertensive with BP 237/107 noted ordered now dose of 20mg IV hydralazine. I explained to the patient about discontinuing her Lisinopril with her ESRD and continued her Procardia 6o mg Q12 adn PO hydralazine she stated she will just return to taking what she was at home. Patient was also made aware of temperature of 102 likely secondary to COVID gave acetomorphine. Patient continues to state she is going home after dialysis I have mad her her aware of the potential outcomes of leaving AMA including stroke, heart attack, respiratory failure, and even she states she still plans to sign herself out AMA. following the completion of her dialysis patient signed herself out AMA continued to be educated on the concerns of her blood pressure and hypertensive emergency urged her to take her medications as prescribed at home. Status at Discharge Functional status at discharge: uses cane/walker Overall status at discharge: other Time Spent with Patient Time attestation: Total time spent providing and/or coordinating discharge services: Time spent: Greater than 30 minutes Exam Narrative: APPEARANCE: No apparent distress. Head: atraumatic. EYES: EOMI, NOSE: Atraumatic NECK: Trachea midline RESPIRATORY: No increased rate of breathing CARDIOVASCULAR: RRR, no peripheral edema ABDOMINAL: Non-distended soft nontender MUSCULOSKELETAl: No obvious deformities NEURO: Alert. Moving 4/4 extremities SKIN:: Warm, dry. Normal color PSYCHIATRIC: Normal affect DS: Data Data Completed and Pending Labs on day of discharge: Labs from last 24 hours 08/21/24 08/20/24 09:50 22:24 WBC 7.1 RBC 4.08 L Hgb 11.1 L Hct 31.4 L MCV 77.0 L MCH 27.2 MCHC 35.4 RDW 16.2 H Plt Count 178 MPV 8.9 Sodium 132 L Potassium 4.2 Chloride 99 Carbon Dioxide 15 L Anion Gap 18 H BUN 70 H Creatinine 6.54 H Estim Creat Clear Calc 4 Estimated GFR 6 L Glucose 220 H Calcium 6.5 L Total Bilirubin 0.5 AST 42 H ALT 15 Alkaline Phosphatase 115 Total Protein 6.0 L Albumin 3.4 L Hep Bs Antigen Negative Hep Bs Antibody Negative Discharge Plan Discharge Attending physician on discharge: Angie Merrill Consulting providers: Cristine Grajeda; Rodolfo Mckeon Discharging Clinician: Cristine Grajeda Patient Disposition: Left Against Medical Advice Patient Language: Serbian Discharge Medications: No Action aspirin 81 mg Tablet 81 mg PO DAILY isosorbide mononitrate 30 mg tablet extended release 24 hr 30 mg PO DAILY Qty: 30 0RF trazodone 50 mg tablet 50 mg PO HS omeprazole 40 mg capsule,delayed release(DR/EC) 40 mg PO DAILY oxybutynin chloride 5 mg tablet 5 mg PO HS melatonin 3 mg tablet 3 mg PO HS PRN (Reason: Sleep) ergocalciferol (vitamin D2) 1,250 mcg (50,000 unit) capsule 50,000 unit PO BID atorvastatin 80 mg tablet 80 mg PO HS carvedilol 25 mg tablet 25 mg PO BIDWM lisinopril 40 mg tablet 40 mg PO DAILY nifedipine 60 mg tablet extended release 60 mg PO Q12H Date of admission: 08/21/24 00:57 Primary Care Provider: SeAddie Admitting Provider: Giorgio Zhou Attending physician on admission: Giorgio Zhou Condition: Unstable Hospitalist MIPS Heart Failure (Exclusion) Patient has history of Heart Transplant or Left Ventricular Assistive Device?: No IF YES, STOP HERE Heart Failure (Qualifier) Patient has current or prior documentation of LVEF less than or equal to 40%, or mod/servere depressed LVSF?: No IF NO, STOP HERE
== END 2024-08-21 17:55 | disposition left against medical advice (07) | DRG 177 ==
LOC: ANHED 08-21 00:55 → ANH2MED 08-21 08:23
PROVIDERS: Internal Medicine Nephrology; Admitting Provider General Practice; Emergency Provider Emergency Medicine; PCP Nurse Practitioner Family; Visit Provider Nurse Practitioner Family
DX: U07.1 COVID-19 (principal); J96.01 Acute respiratory failure with hypoxia; N18.6 End stage renal disease; I13.2 Hypertensive heart and chronic kidney disease with heart failure and with stage 5 chronic kidney disease, or end stage renal disease; I50.42 Chronic combined systolic (congestive) and diastolic (congestive) heart failure; I16.0 Hypertensive urgency; D63.1 Anemia in chronic kidney disease; E78.5 Hyperlipidemia, unspecified; I73.9 Peripheral vascular disease, unspecified; J44.9 Chronic obstructive pulmonary disease, unspecified; J43.9 Emphysema, unspecified; R30.0 Dysuria; Z79.82 Long term (current) use of aspirin; Z88.0 Allergy status to penicillin; Z99.2 Dependence on renal dialysis; Z87.891 Personal history of nicotine dependence
CPT/HCPCS: 36415; 71045; 80053; 81001; 83605; 83690; 83735; 85025; 85027; 85055; 85610; 85730; 86706; 87086; 87340; 87637; 87641; 93005; 94640; 96374; 99285; A9270; G0257; J0248; J0360; J0696; J1100; J1644; J2470; J7030; J7120; J8540

== ENCOUNTER 2024-10-02 01:15 | Inpatient (IN) | payer MEDICARE, BC, SELFPAY ==
[2024-10-02] VITALS (42 sets, daily range): BP systolic 130–254; BP diastolic 51–94; PULSE 75–106; RESP 13–35; TEMP 36.3–37; O2SAT 80–100; BMI 19.5
--- NOTE | 2024-10-02 | ECHO_ITS ---
Patient Info Name: Alina Allen Age: 78 years : 1945 Gender: Female Ht: 60 in Wt: 100 lbs BSA: 1.38 m2 HR: 86 bpm BP: 135 / 52 mmHg Technical Quality: Good Exam Date: 10/02/2024 3:15 PM Patient Status: I Admit Date: 10/02/2024 Exam Type: CA echo doppler color flow Complete two-dimensional, color flow and Doppler transthoracic echocardiogram is performed. Staff Referring Physician: Rodolfo Mckeon Inclusion Special Educator: Sherry Chua Attending Provider: Kimberly Rodriguez DO Summary 1. Complete two-dimensional, color flow and Doppler transthoracic echocardiogram is performed. 2. There is normal biventricular size and systolic function. 3. 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 4. There is severe concentric left ventricular hypertrophy. Consider outpatient evaluation for amyloidosis. Left Ventricle The left ventricle is normal in size and systolic function. There is severe concentric left ventricular hypertrophy. The left ventricular ejection fraction is visually estimated to be 60-65%. Right Ventricle The right ventricle is normal in size and systolic function. Left Atria The left atrium is dilated. Right Atria The right atrium is dilated. Atrial Septum The atrial septum visually appears intact. Aortic Valve The aortic valve is trileaflet and opens well. There is no aortic regurgitation. Pulmonic Valve The pulmonic valve is grossly normal. There is trace pulmonic valve regurgitation. Mitral Valve The mitral valve leaflets are restricted and sclerotic with features suggestive of rheumatic heart disease. There is no mitral stenosis. There is mild mitral regurgitation. Tricuspid Valve The tricuspid valve is normal. There is mild tricuspid regurgitation. Pericardium/Pleural Pericardium is normal in appearance with no evidence for significant pericardial effusion. Inferior Vena Cava Normal inferior vena cava with >50% collapse upon inspiration consistent with normal right atrial pressure, 3 mmHg. Aorta The aortic root at the level of the sinus of Valsalva measures 2.7 cm in diameter. Left Ventricular Outflow Tract Name Value Normal LVOT 2D LVOT Diameter 1.7 cm LVOT Doppler LVOT Peak Velocity 150 cm/s LVOT Peak Gradient 9 mmHg LVOT Mean Gradient 4 mmHg LVOT VTI 29 cm LVOT Stroke Volume 63 ml LVOT CO 5.4 l/min LVOT CI 3.9 l/min/m2 Pulmonic Valve Name Value Normal RVOT Doppler RVOT Peak Velocity 81 cm/s RVOT Peak Gradient 3 mmHg PV Doppler PV Peak Velocity 110 cm/s PV Peak Gradient 5 mmHg Mitral Valve Name Value Normal MV Diastolic Function MV E Peak Velocity 70 cm/s MV A Peak Velocity 118 cm/s MV E/A 0.6 MV Decel Time (PW) 279 ms MV Annular TDI MV E/e' (Septal) 11.9 MV E/e' (Lateral) 10.1 MV E/e' (Average) 11.0 Tricuspid Valve Name Value Normal TV Regurgitation Doppler TR Peak Velocity 379 cm/s TR Peak Gradient 56 mmHg Estimated PAP/RSVP RA Pressure 3 mmHg <=5 PA Systolic Pressure 61 mmHg <36 RV Systolic Pressure 61 mmHg <36 Aortic Valve Name Value Normal AV Doppler AV Peak Velocity 151 cm/s AV Peak Gradient 9 mmHg AV Area (Cont Eq Tavon) 2.1 cm2 AV DI (Tavon) 0.99 AV Regurgitation 2D LVOT Area 2.2 cm2 Ventricles Name Value Normal LV Dimensions 2D/MM IVS Diastolic Thickness (2D) 1.8 cm 0.6-1.0 LVID Diastole (2D) 3.1 cm 3.8-5.2 LVIW Diastolic Thickness (2D) 1.8 cm 0.6-0.9 LVID Systole (2D) 2.1 cm 2.2-3.5 LVOT Diameter 1.7 cm LV Mass (2D Cubed) 224.53 g 67.00-162.00 LV Mass Index (2D Cubed) 162 g/m2 43-95 Relative Wall Thickness (2D) 1.16 <=0.42 LV Fractional Shortening/Ejection Fraction 2D/MM LV Fractional Shortening (2D) 33 % 27-45 LV EF (2D Teichholz) 63 % LV Diastolic Volume (4C MOD) 85 ml LV EF (4C MOD) 64 % LV Diastolic Volume (2C MOD) 84 ml LV EF (2C MOD) 57 % LV Diastolic Volume (BP MOD) 87 ml 46-106 LV Diastolic Volume Index (BP MOD) 63 ml/m2 29-61 LV Systolic Volume (BP MOD) 36 ml 14-42 LV Systolic Volume Index (BP MOD) 26 ml/m2 8-24 LV EF (BP MOD) 59 % 54-74 LV Diastolic Length (4C) 8.3 cm LV Systolic Length (4C) 7.2 cm LV Stroke Volume (4C MOD) 54 ml Atria Name Value Normal LA Dimensions LA Volume (4C A-L) 57 ml RA Dimensions RA Systolic Major [place] Length (4C) 4.9 cm 2.2-2.8 RA Area (4C) 14.5 cm2 <=18.0 Report Signatures
--- NOTE | ~2024-10-02 | XR_ITS ---
CHEST RADIOGRAPH CLINICAL HISTORY: SOB . COMPARISON: 10/02/2024 (approximately 20 hours earlier) and dating back to 08/20/2024 TECHNIQUE: Single portable view of the chest. FINDINGS Cardiomediastinal silhouette remains enlarged with interval development of prominence of the bilatera l pulmonary arteries.. Increased bilateral pleural effusions, left greater than right compared with most recent examination. Increased interstitial markings are identified bilaterally, findings suggesting moderate pulmonary va scular congestion. No focal infiltrate is appreciated. IMPRESSION: Findings suggesting worsening congestive failure, an interval change from previous examination perfor med 20 hours earlier. Reviewed, dictated and finalized at location A. IMPRESSION: Findings suggesting worsening congestive failure, an interval change from previ ous examination performed 20 hours earlier.
--- NOTE | ~2024-10-02 | XR_ITS ---
Portable chest x-ray Comparison: 08/20/2024 Clinical History: Shortness of breath Findings: Small right pleural effusion and minimal left pleural effusion are present. There is minim al bibasilar pulmonary edema/atelectasis. Probable underlying COPD. Cardiomediastinal silhouette is stable. Bones and soft tissues are unremarkable. Impression: Small right pleural effusion and minimal left pleural effusion. Minimal bibasilar pulmonary edema. Underlying COPD. Stable cardiomegaly. Reviewed, dictated and finalized at location M. Impression: Small right pleural effusion and minimal left pleural effusion. Minimal bibasilar pulmonary edema. Underlying COPD. Stable cardiomegaly.
--- NOTE | 2024-10-02 01:21 | ECG_ITS ---
Test Date: 2024-10-02 01:23:05 Measurements Intervals Hanna Rate: 109 P: 62 [place]: 160 QRS: 83 QRSD: 78 T: 20 QT: 341 QTc: 461 Interpretive Statements SINUS TACHYCARDIA LEFT ATRIAL ENLARGEMENT CANNOT R/O SEPTAL INFARCT, AGE INDETERMINATE BORDERLINE ST-T WAVE ABNORMALITY- INFERIOR LEADS BASELINE WANDER- V4-V6 ABNORMAL ECG Compared to ECG 08/20/2024 22:22:14 HEART RATE HAS INCREASED Electronically Signed On 10-02-2024 06:23:14 CDT by Gael Steward D.O.
--- NOTE | 2024-10-02 01:24 | ED.GENADULT ---
HPI - General Adult General Chief complaint: Shortness of Breath/Dyspnea Stated complaint: DIFFICULTY IN BREATHING/MISSED DIALYSIS Time Seen by Provider: 10/02/24 01:22 History of Present Illness HPI narrative: 78-year-old female with chronic kidney disease on dialysis presents to the emergency department for evaluation for worsening lower extremity swelling and increased shortness of breath. Patient states that she does dialysis on Tuesdays and Saturdays and reports she missed dialysis on Tuesday. Patient called EMS due to worsening shortness of breath and patient was found to be 80% on room air. Related Data Home Medications ?Medication ?Instructions ?Recorded ?Confirmed ?Last Taken ?Type aspirin 81 mg tablet 81 mg PO DAILY 05/10/20 08/21/24 09/03/23 History melatonin 3 mg tablet 3 mg PO HS PRN Sleep 12/08/22 08/21/24 09/03/23 History omeprazole 40 mg capsule,delayed 40 mg PO DAILY 12/08/22 08/21/24 1 Day Ago History release ~09/03/23 oxybutynin chloride 5 mg tablet 5 mg PO HS 12/08/22 08/21/24 09/03/23 History trazodone 50 mg tablet 50 mg PO HS 12/08/22 08/21/24 09/03/23 History ergocalciferol (vitamin D2) 1,250 50,000 unit PO BID 10/11/23 08/21/24 Unknown History mcg (50,000 unit) capsule atorvastatin 80 mg tablet 80 mg PO HS 03/10/24 08/21/24 Unknown History carvedilol 25 mg tablet 25 mg PO BIDWM 03/10/24 08/21/24 Unknown History lisinopril 40 mg tablet 40 mg PO DAILY 08/21/24 08/21/24 Unknown History nifedipine 60 mg tablet,extended 60 mg PO Q12H 08/21/24 08/21/24 Unknown History release Allergies Allergy/AdvReac Type Severity Reaction Status Date / Time Penicillins Allergy Unknown Unknown,Ham Verified 10/02/24 01:27 h Review of Systems Review of Systems: All systems reviewed & are unremarkable except as noted in HPI and below PMFSH Past Medical History Medical History (Updated 10/02/24 @ 03:21 by Richard Bailey MD) Hypertensive cardiomegaly Hyperparathyroidism due to ESRD on dialysis End-stage renal disease on hemodialysis Tuesday. Dialysis managed by Dr. Joshua Motley Hyperlipidemia Chronic anemia History of blood transfusion. COPD with emphysema Peripheral arterial disease Combined systolic and diastolic congestive heart failure Echocardiogram on 09/10/2020 EF of 20 to 25%, grade 1 diastolic dysfunction, reduced RV systolic function. 12/2020 echo EF 40-46% with segmental wall motion abnormalities Gastric AVM Cardiomyopathy Presumed ischemic with moderately sized moderately severe reversible defect and small mild non reversible infarct on Lexiscan stress on 09/12/2020. Hypertension Surgical History Surgical History Surgically constructed arteriovenous fistula Left upper arm History of colonoscopy History of colon polyps, internal hemorrhoids, and diverticulosis. History of esophagogastroduodenoscopy History of gastric erosions, gastric polyps, and duodenal AVMs. History of revascularization procedure of lower extremity (10/2019) Bilateral lower extremity stents per Dr. Carrillo. History of vascular surgery (06/12/13) Aorto bi-iliac bypass graft per Dr. Carrillo. Family History Family History Mother Alzheimer disease Father Emphysema of lung Social History Social History Social History: Surrogate medical decision maker: Dhaval Allen, hay. Code status: Full code. Smoking packs per day: 1 Smoking cigarettes per day: 20.0 Years smoked: 55 Smoking pack-years: 55.00 Smoking status: Former smoker Second hand tobacco smoke exposure: Yes Alcohol intake: former Substance use: never Substance use type: does not use Do You Feel Safe in your Home?: Yes Lack of Transportation: No Lack of Food: Never True Current Housing: I Have Housing Concerned About Future Housing: No Difficulty Paying Gas/Electric Bills: No Difficulty Paying for Meds: No Currently Unemployed: No Education: Bachelor's Degree Difficulty w/ Childcare or Family Care: No Additional living arrangements comments: . Lives with her only son in [place]. Additional occupation/education comments: Retired from the [employer]. Spiritual care concerns: No Exam Narrative: APPEARANCE: Well appearing, no pain, no distress, well-nourished. HEAD: normocephalic, atraumatic. EYES: PERRLA/EOMI, conjunctivae clear. NOSE: Normal no drainage EARS:TMS clear with good light reflex. THROAT: Pharynx clear, no exudate. NECK: Supple. No adenopathy, no masses. RESPIRATORY: Airway patent, respirations nonlabored. Clear to auscultation bilaterally, no rales, rhonchi, wheezing. CARDIOVASCULAR: Regular rate and rhythm without murmurs rubs or gallops. ABDOMINAL: Soft, nontender, nondistended, normal bowel sounds MUSCULOSKELETAL: +3 pitting NEURO: Alert. Cranial nerves II through XII intact. Good gait. Good coordination SKIN: Warm, dry. Normal Color Course Vital Signs Vital signs: Vital Signs Temperature 97.8 F 10/02/24 01:20 Pulse Rate 106 H 10/02/24 01:20 Respiratory Rate 25 H 10/02/24 01:20 Blood Pressure 223/85 H 10/02/24 01:20 Pulse Oximetry 100 10/02/24 01:20 Oxygen Delivery Room Air 10/02/24 01:20 Temperature 97.8 F 10/02/24 01:20 Pulse Rate 102 H 10/02/24 03:16 Respiratory Rate 20 10/02/24 03:16 Blood Pressure 212/82 H 10/02/24 03:16 Pulse Oximetry 100 10/02/24 03:16 Oxygen Delivery Nasal Cannula 10/02/24 02:32 Oxygen Flow Rate 2 10/02/24 02:32 Fraction of Inspired Oxygen 28 10/02/24 02:32 Medical Decision Making [facility] Narrative Medical decision making narrative: 78-year-old female presents emergency department for evaluation for hypertension and hypoxia. Patient was initially trialed on BiPAP and patient prefer to be on nasal cannula. Patient had initially been on 6 L of oxygen when she 1st arrived we did do approximately 1 hour of BiPAP and she was treated with IV Lasix. Patient was also treated with 10 mg of hydralazine, patient did tolerate 2 L of oxygen by nasal cannula after stopping the BiPAP. Patient was started on p.o. clonidine in addition to 1 in of nitropaste. Case was discussed with hospitalist patient was accepted for admission for dialysis. Nephrology was paged Differential Diagnosis Differential Diagnosis: Hyperkalemia, hypomagnesemia, fluid overload, pneumonia, CHF, noncompliance Vital Signs Vital Signs: Vital Signs Temperature 97.8 F 10/02/24 01:20 Pulse Rate 106 H 10/02/24 01:20 Respiratory Rate 25 H 10/02/24 01:20 Blood Pressure 223/85 H 10/02/24 01:20 Pulse Oximetry 100 10/02/24 01:20 Oxygen Delivery Room Air 10/02/24 01:20 Temperature 97.8 F 10/02/24 01:20 Pulse Rate 102 H 10/02/24 03:16 Respiratory Rate 20 10/02/24 03:16 Blood Pressure 212/82 H 10/02/24 03:16 Pulse Oximetry 100 10/02/24 03:16 Oxygen Delivery Nasal Cannula 10/02/24 02:32 Oxygen Flow Rate 2 10/02/24 02:32 Fraction of Inspired Oxygen 28 10/02/24 02:32 Lab Data Lab results reviewed: Yes I reviewed the patient's lab results. 10/02/24 01:45 10/02/24 01:45 Labs: Lab Results 10/02/24 10/02/24 Range/Units 01:32 01:45 WBC 8.9 (4.5-10.0) K/mm3 RBC 3.63 L (4.2-5.4) M/mm3 Hgb 9.9 L (12.0-15.0) g/dL Hct 28.8 L (37.0-47.0) % MCV 79.3 L (80-100) fl MCH 27.3 (26-34) pg MCHC 34.4 (32-36) g/dl RDW 18.9 H (11.5-14.5) % Plt Count 123 L (150-375) k/mm3 MPV 8.3 (7.4-10.4) fl Immature Gran % (Auto) 0.9 H (0-0.5) % Neut % (Auto) 77.8 H (45.5-73.1) % Lymph % (Auto) 10.0 L (18.3-44.2) % [place] % (Auto) 7.8 (2.6-8.5) % Eos % (Auto) 2.9 (0-4.4) % Baso % (Auto) 0.6 (0.2-1.2) % Lymph # (Auto) 0.89 L (0.9-3.2) K/mm3 [place] # (Auto) 0.7 H (0.1-0.6) K/mm3 Eos # (Auto) 0.3 (0-0.3) K/mm3 Baso # (Auto) 0.1 (0.0-0.1) K/mm3 Abs Immat Gran (auto) 0.08 H (0.00-0.031) K/mm3 Absolute Neuts (auto) 6.9 H (1.3-6.7) K/mm3 Absolute Nucleated RBC 0.000 (0.0-0.012) K/mm3 Nucleated RBC % 0.0 (0.0-0.2) % Methemoglobin 0.2 (0-1.5) %THb Expiratory Pressure Pending Inspiratory Pressure Pending Sodium 139 (137-145) mmol/L Potassium 4.4 (3.4-5.0) mmol/L Chloride 106 (98-107) mmol/L Carbon Dioxide 21 L (22-30) mmol/L Anion Gap 12 (4-12) mmol/L BUN 55 H D (7-17) mg/dL Creatinine 5.68 H (0.7-1.0) mg/dL Estim Creat Clear Calc 6 ml/min Estimated GFR 7 L (59 - ) Glucose 84 (65-110) mg/dL Calcium 8.1 L (8.4-10.2) mg/dL Magnesium 1.4 L (1.6-2.3) mg/dL Total Bilirubin 0.4 (0.2-1.3) mg/dL AST 85 H (14-36) U/L ALT 29 (6-35) U/L Alkaline Phosphatase 132 H (38-126) U/L Total Protein 7.1 (6.3-8.2) g/dL Albumin 3.7 (3.5-5.1) g/dL ABG Data ABG results: 10/02/24 01:32 Puncture Site Right radial ABG pH 7.361 ABG pCO2 33.9 L ABG pO2 113.3 H ABG PO2/FiO2 Ratio 3.78 ABG HCO3 18.8 L ABG O2 Saturation 98.0 ABG O2 Content 14.0 L ABG Base Excess -5.9 A-a Gradient 60.8 Oxyhemoglobin 95.6 Carboxyhemoglobin 1.6 Reduced Hemoglobin 2.6 Total Hemoglobin 10.3 L O2 Delivery Device Bipap O2 Liters/Min Not Reportable FiO2 30 Discharge Plan Discharge Clinical Impression: Fluid overload, Hypoxia Patient Disposition: Still a Patient Condition: Serious
[2024-10-02 01:38] LABS: Alveolar/Arterial O2 Gradient 60.8 mmHg; Base Excess ABG -5.9 mEq/l (+/-2.0); Carboxyhemoglobin 1.6 % THb (0-2.0); Fractional Inspired Oxygen 30 %; HCO3 ABG 18.8 mEq/l (22.0-26.0); Methemoglobin ABG 0.2 %THb (0-1.5); Oxyhemoglobin 95.6 % THb (90.0-100.0); PCO2 ABG 33.9 mmHg (35.0-45.0); PO2 ABG 113.3 mmHg (80.0-100.0); PO2 FiO2 Ratio Arterial Blood 3.78 %; Reduced Hemoglobin 2.6 %THb (0-5.0); Total Hemoglobin 10.3 g/dL (12.0-18.0); pH ABG 7.361 (7.350-7.450)
[2024-10-02 01:39] LABS: Modified Allen's Test Pass; Site Drawn RIGHT RADIAL
[2024-10-02 01:40] LABS: Device BIPAP
[2024-10-02 01:41] LABS: Expiratory Pressure 6 cmH2O; Inspiratory Pressure 12 cmH2O
[2024-10-02 01:56] LABS: Basophils Absolute Auto 0.1 K/mm3 (0.0-0.1); Basophils Percent Auto 0.6 % (0.2-1.2); Eosinophils Absolute Auto 0.3 K/mm3 (0-0.3); Eosinophils Percent Auto 2.9 % (0-4.4); Hematocrit 28.8 % (37.0-47.0); Hemoglobin 9.9 g/dL (12.0-15.0); Immature Granulocyte Absolute 0.08 K/mm3 (0.00-0.031); Immature Granulocyte Percent A 0.9 % (0-0.5); Lymphocytes Absolute Auto 0.89 K/mm3 (0.9-3.2); Mean Corpuscular HGB Conc 34.4 g/dl (32-36); Mean Corpuscular Hemoglobin 27.3 pg (26-34); Mean Corpuscular Volume 79.3 fl (80-100); Mean Platelet Volume 8.3 fl (7.4-10.4); Monocytes Absolute Auto 0.7 K/mm3 (0.1-0.6); Monocytes Percent Auto 7.8 % (2.6-8.5); Neutrophils Absolute Auto 6.9 K/mm3 (1.3-6.7); Neutrophils Percent Auto 77.8 % (45.5-73.1); Platelet Count Result 123 k/mm3 (150-375); Red Blood Count 3.63 M/mm3 (4.2-5.4); Red Cell Distribution Width 18.9 % (11.5-14.5); White Blood Count 8.9 K/mm3 (4.5-10.0)
[2024-10-02] MEDS: hydrALAZINE HCL 20 MG/ML VIAL 10 MG IV PUSH (01:57)
[2024-10-02] MEDS: FUROSEMIDE INJ 40 MG/4 ML VIAL IV PUSH (01:57)
[2024-10-02 02:00] LABS: Alanine Aminotransferase 29 U/L (6-35); Albumin Level 3.7 g/dL (3.5-5.1); Alkaline Phosphatase 132 U/L (38-126); Anion Gap 12 mmol/L (4-12); Aspartate Amino Transferase 85 U/L (14-36); Bilirubin,Total 0.4 mg/dL (0.2-1.3); Blood Urea Nitrogen 55 mg/dL (7-17); Calcium 8.1 mg/dL (8.4-10.2); Carbon Dioxide 21 mmol/L (22-30); Chloride 106 mmol/L (98-107); Estimated CRCL calculation 6 ml/min; Estimated Glomerular Filt Rate 7; Glucose 84 mg/dL (65-110); Magnesium 1.4 mg/dL (1.6-2.3); Potassium 4.4 mmol/L (3.4-5.0); Sodium 139 mmol/L (137-145); Total Protein 7.1 g/dL (6.3-8.2)
[2024-10-02] MEDS: NITROGLYCERIN OINTMENT 1 INCH DOSE TRANSDERM (03:03)
[2024-10-02] MEDS: cloNIDine HCL 0.1 MG TABLET PO (03:03)
--- NOTE | 2024-10-02 03:57 | ADMGEN ---
This patient, Alina Allen, was admitted to IMU Room 213-01. Patient/family oriented to hospital policies and general routines including ID bracelet, bed and alarms, visiting hours, pain management, procedures, bathroom and other care routines, personal items, smoking policy, room service/diet, and visiting hours. Information on how to activate the Rapid Response Team has been discussed. Patient/Family are encouraged to report perceived risks to care and to ask questions if they do not understand what they are told or what they should do.
[2024-10-02] MEDS: LABETALOL HCL INJ 100 MG/20 ML VIAL 20 MG IV PUSH (05:33)
[2024-10-02 05:44] LABS: MRSA (PCR) NOT DETECTED (NOT DETECTE)
[2024-10-02 07:03] LABS: Hepatitis B Surface Antigen Negative (Negative)
[2024-10-02 07:20] LABS: Hepatitis B Surface Anti Res Negative
--- NOTE | 2024-10-02 08:52 | PC.NURSE ---
Call light alarm going off as patient took off BIPAP herself. States Get this damn thing off of me to transfill technician. This RN went into the room to assess the patient. She is perfectly pleasant with a funny sense of humor. She is refusing to wear BIPAP at this time. 2L/NC placed on patient at this time. Tolerates well. No acute distress noted. Heart rate remains with in normal rate at this time.
--- NOTE | 2024-10-02 09:10 | PC.NURSE ---
Unable to reach hospitalist (Dr Merrill) at this time related to patient high blood pressure. Dialysis nurse states that blood pressure is 226 systolic. This RN called residential collections for blood pressure medications. Order received at this time (see eMAR). Dr Mckeon suggests restarting home medications at this time as well.
[2024-10-02] MEDS: hydrALAZINE HCL 20 MG/ML VIAL IV PUSH (09:19)
[2024-10-02] MEDS: lisinopriL 20 MG TABLET 40 MG PO (10:19)
[2024-10-02] MEDS: NIFEdipine 30 MG TAB.ER.24 60 MG PO ×2 (10:19→20:04)
[2024-10-02] MEDS: ISOSORBIDE MONONITRATE 30 MG TAB.ER.24H PO (10:19)
--- NOTE | 2024-10-02 10:30 | P.CONNP_ITS ---
Assessment and Plan Assessment and plan (1) End stage renal disease: Code(s): N18.6 - End stage renal disease Status: Chronic Assessment and Plan: * HD today * continue T/T/S dialysis schedule while hospitalized * follow electrolytes, volume status, and clearance (2) Acute hypoxic respiratory failure: Code(s): J96.01 - Acute respiratory failure with hypoxia Status: Acute Assessment and Plan: * suspect multifactorial: * hypertensive urgency * mild pulmonary edema (CXR with small right pleural effusion and minimal left pleural effusion + minimal bibasilar pulmonary edema) * COPD * CHF * noncompliance (missed HD treatment on Tuesday) * check viral testing for influenza/RSV/COVID * BiPAP PRN (weaned off currently) * supplemental oxygen - wean as tolerated (3) Hypertension: Code(s): I10 - Essential (primary) hypertension Status: Chronic Assessment and Plan: * poor BP control at baseline * extremely elevated on admission and at this time * restarted on home medications * PRN IV hydralazine as needed * follow trend of hemodynamics (4) Volume overload: Code(s): E87.70 - Fluid overload, unspecified Status: Acute Assessment and Plan: * as noted by presentation: * fluid/edema on CXR * increased lower extremity edema * missed HD treatment on Tuesday * fluid removal as tolerated to achieve euvolemia * may need to consider dry ultrafiltration session tomorrow... (5) Anemia: Qualifiers: Anemia type: unspecified type Qualified Code(s): D64.9 - Anemia, unspecified Code(s): D64.9 - Anemia, unspecified Status: Chronic Assessment and Plan: * related to ESRD * Epogen with HD - hold given issues with hypertension * follow trend of H/H (6) COPD (chronic obstructive pulmonary disease): Qualifiers: COPD type: unspecified COPD Qualified Code(s): J44.9 - Chronic obstructive pulmonary disease, unspecified Code(s): J44.9 - Chronic obstructive pulmonary disease, unspecified Status: Chronic Assessment and Plan: * nebulizer treatments PRN I will continue follow the patient with you while she remains hospitalized make further recommendations as deemed necessary. Thank you for allowing me to participate in the care this patient. L History of Present Illness Reason for Consult Consult date: 10/02/24 Reason for consult: end stage renal disease Chief Complaint Chief complaint: Fluid overload, Hypertensive urgency, Hypoxia History of Present Illness Narrative: The patient is a 78-year-old female with a past medical history as outlined below who presented to [facility] Emergency room for shortness of breath. She states that she woke up earlier this morning with worsening shortness of breath. Unfortunately, her shortness of breath rapidly deteriorated to the point where she called 911 and EMS was summoned to her home. Per EMS, she was found to be hypoxic with oxygen saturations of 80% on room air in association with increased lower extremity swelling/edema. Supplemental oxygen was applied and she was subsequently transported to the emergency room for further assessment. Workup and evaluation emergency room demonstrated the patient be quite hypertensive in the greater than 200 systolic range in association with hypoxia. She was initially on 6 L of oxygen when she 1st arrived and she was transitioned to BiPAP due to her hypoxia and respiratory distress. She was given a combination of IV hydralazine and IV Lasix which improved her respiratory status to the point of being weaned off BiPAP and placed on supplemental oxygen down to 2 L. her blood pressure remained elevated and so she received 1 in of nitro paste as well as oral clonidine as well. Laboratory testing demonstrated labs consistent with her known history of end-stage renal disease with relative stability in her electrolytes and a H&H close to goal. Her chest x-ray demonstrated minimal bibasilar pulmonary edema and small bilateral pleural effusions. Upon further questioning, she admitted that she missed her last dialysis treatment on Tuesday. She was subsequently admitted to the hospital for further evaluation and therapy. Renal consultation was requested due to her end-stage renal disease. The patient normally dialyzes on a Tuesday, , Tuesday schedule under the care of Dr. Joshua Motley at [facility]. From a dialysis perspective, she usually does fairly well with relative stability in her monthly labs and fluid/volume status. However, she admits that she missed her scheduled dialysis treatment on Tuesday as she was at a town traveling to [place] to visit with friends. Her last dialysis treatment was on September. She is due for dialysis today. Currently, at the time my evaluation, she is receiving dialysis and appears to be in no acute distress (she was seen on dialysis at 10:20AM). Review of Systems 2 Review of Systems: As per HPI. [facility] Past Medical History Medical History (Updated 10/03/24 @ 01:24 by Rodolfo Mckeon MD) Hypertensive cardiomegaly Hyperparathyroidism due to ESRD on dialysis End-stage renal disease on hemodialysis Tuesday. Dialysis managed by Dr. oJshua Motley Hyperlipidemia Chronic anemia History of blood transfusion. COPD with emphysema Peripheral arterial disease Combined systolic and diastolic congestive heart failure Echocardiogram on 09/10/2020 EF of 20 to 25%, grade 1 diastolic dysfunction, reduced RV systolic function. 12/2020 echo EF 40-46% with segmental wall motion abnormalities Gastric AVM Cardiomyopathy Presumed ischemic with moderately sized moderately severe reversible defect and small mild non reversible infarct on Lexiscan stress on 09/12/2020. Hypertension Surgical History Surgical History Surgically constructed arteriovenous fistula Left upper arm History of colonoscopy History of colon polyps, internal hemorrhoids, and diverticulosis. History of esophagogastroduodenoscopy History of gastric erosions, gastric polyps, and duodenal AVMs. History of revascularization procedure of lower extremity (10/2019) Bilateral lower extremity stents per Dr. Carrillo. History of vascular surgery (06/12/13) Aorto bi-iliac bypass graft per Dr. Carrillo. Family History Family History Mother Alzheimer disease Father Emphysema of lung Social History Social History Social History: Surrogate medical decision maker: Dhaval Allen, hay. Code status: Full code. Smoking packs per day: 1 Smoking cigarettes per day: 20.0 Years smoked: 53 Smoking pack-years: 53.00 Smoking status: Former smoker Tobacco type: cigarettes Second hand tobacco smoke exposure: Yes Alcohol intake: never Substance use: never Substance use type: does not use Do You Feel Safe in your Home?: Yes Lack of Transportation: No Lack of Food: Never True Current Housing: I Have Housing Concerned About Future Housing: No Difficulty Paying Gas/Electric Bills: No Difficulty Paying for Meds: No Currently Unemployed: No Education: Associate Degree Difficulty w/ Childcare or Family Care: No Additional living arrangements comments: . Lives with her only son in [place]. Additional occupation/education comments: Retired from the [employer]. Spiritual care concerns: No Meds Home Medications and Allergies Home Medications ?Medication ?Instructions ?Recorded ?Confirmed ?Type aspirin 81 mg tablet 81 mg PO DAILY 05/10/20 10/02/24 History isosorbide mononitrate 30 mg 30 mg PO DAILY #30 tabs 09/20/20 10/02/24 Rx tablet,extended release 24 hr melatonin 3 mg tablet 3 mg PO HS PRN Sleep 12/08/22 10/02/24 History omeprazole 40 mg capsule,delayed 40 mg PO DAILY 12/08/22 10/02/24 History release oxybutynin chloride 5 mg tablet 5 mg PO HS 12/08/22 10/02/24 History trazodone 50 mg tablet 50 mg PO HS 12/08/22 10/02/24 History ergocalciferol (vitamin D2) 1,250 50,000 unit PO BID 10/11/23 10/02/24 History mcg (50,000 unit) capsule atorvastatin 80 mg tablet 80 mg PO HS 03/10/24 10/02/24 History carvedilol 25 mg tablet 25 mg PO BIDWM 03/10/24 10/02/24 History lisinopril 40 mg tablet 40 mg PO DAILY 08/21/24 10/02/24 History nifedipine 60 mg tablet,extended 60 mg PO Q12H 08/21/24 10/02/24 History release Allergies Allergy/AdvReac Type Severity Reaction Status Date / Time Penicillins Allergy Unknown Unknown,Ham Verified 10/02/24 04:25 h Vital Signs Vital Signs Temp Pulse Resp BP Pulse Ox O2 Del Method O2 Flow Rate 10/02/24 10:30 90 199/77 H 10/02/24 10:15 89 207/76 H 10/02/24 10:00 94 208/67 H 10/02/24 09:45 95 192/73 H 10/02/24 09:30 97 202/75 H 10/02/24 09:15 93 223/88 H 10/02/24 09:00 90 226/87 H 10/02/24 08:45 92 218/91 H 10/02/24 08:30 91 231/94 H 10/02/24 08:15 90 227/91 H 10/02/24 08:00 97.8 F 88 16 205/68 H 100 10/02/24 08:00 90 16 100 Nasal Cannula 2 10/02/24 08:00 90 10/02/24 07:57 2 10/02/24 07:57 88 202/81 H 10/02/24 07:41 97.5 F L 88 16 211/85 H 100 10/02/24 06:00 89 10/02/24 05:41 102 H 35 H 99 BiPAP 10/02/24 05:33 101 H 10/02/24 05:30 211/67 H 10/02/24 05:16 254/86 H 10/02/24 04:00 98 10/02/24 04:00 100 Nasal Cannula 2 10/02/24 03:45 97.8 F 97 17 216/76 H 100 10/02/24 03:16 102 H 20 212/82 H 100 10/02/24 02:32 100 Nasal Cannula 2 10/02/24 02:22 100 BiPAP 10/02/24 02:22 80 L Room Air 10/02/24 01:26 30 H 100 BiPAP 10/02/24 01:20 97.8 F 106 H 25 H 223/85 H 100 Room Air Exam 2 Narrative: GENERAL APPEARANCE: elderly female in no acute distress HEENT: normocephalic, atraumatic, normal conjunctiva and sclera, nares patient NECK: no lymphadenopathy, thyromegaly, or JVD MOUTH: normal lips, teeth, and gums CARDIOVASCULAR: RRR, normal S1 and S2, no rub RESPIRATORY: coarse breath sounds noted; decreased at bases ABDOMEN: soft, nontender, nondistended, positive bowel sounds present EXTREMITIES: no evidence of cyanosis, clubbing, 1 - 2+ edema NEUROLOGICAL: alert and oriented x 3; CN II - XII intact bilaterally; no focal deficits noted Results Lab Results 10/02/24 01:45 10/02/24 01:45 Lab results: Most recent lab results ABG pH 7.361 (7.350-7.450) 10/02/24 01:32 ABG pCO2 33.9 mmHg (35.0-45.0) L 10/02/24 01:32 ABG pO2 113.3 mmHg (80.0-100.0) H 10/02/24 01:32 ABG HCO3 18.8 mEq/l (22.0-26.0) L 10/02/24 01:32 ABG O2 Saturation 98.0 % (95.0-100.0) 10/02/24 01:32 Calcium 8.1 mg/dL (8.4-10.2) L 10/02/24 01:45 Magnesium 1.4 mg/dL (1.6-2.3) L 10/02/24 01:45
[2024-10-02 12:58] LABS: Influenza A QL RT-PCR Negative (Negative); Influenza B QL RT-PCR Negative (Negative); RSV RNA, RT-PCR Negative (Negative); SARS-CoV-2 RNA PCR Negative (Negative)
--- NOTE | 2024-10-02 16:22 | PM.IMHP ---
H&P: HPI History of Present Illness Date/Time: 10/02/24 16:22 Chief Complaint: SOB and leg swelling Narrative: 78-year-old female past medical history of CHF, COPD, end-stage renal disease on dialysis, presented to the account of shortness of breath and leg swelling. Patient reported she missed her dialysis on Tuesday and distension O2 sat leg swelling try which check ago when she came back he states yesterday having shortness of breath which prompted her to present to the ER for proper positioning care. Denies any chest pain no vomiting, no diarrhea, no abdominal focal symptoms no headaches. Reported otherwise she is adherent to her medications. Your evaluation notable for pulse rate 106, respiratory 25, blood pressure 223/85, saturating % on room air. Review of Systems Review of Systems: All other systems reviewed and negative except as noted in the history above. [facility], LAT[facility] Past Medical History Medical History (Updated 10/02/24 @ 11:20 by Rodolfo Mckeon MD) Hypertensive cardiomegaly Hyperparathyroidism due to ESRD on dialysis End-stage renal disease on hemodialysis Tuesday. Dialysis managed by Dr. Joshua Motley Hyperlipidemia Chronic anemia History of blood transfusion. COPD with emphysema Peripheral arterial disease Combined systolic and diastolic congestive heart failure Echocardiogram on 09/10/2020 EF of 20 to 25%, grade 1 diastolic dysfunction, reduced RV systolic function. 12/2020 echo EF 40-46% with segmental wall motion abnormalities Gastric AVM Cardiomyopathy Presumed ischemic with moderately sized moderately severe reversible defect and small mild non reversible infarct on Lexiscan stress on 09/12/2020. Hypertension Surgical History Surgical History Surgically constructed arteriovenous fistula Left upper arm History of colonoscopy History of colon polyps, internal hemorrhoids, and diverticulosis. History of esophagogastroduodenoscopy History of gastric erosions, gastric polyps, and duodenal AVMs. History of revascularization procedure of lower extremity (10/2019) Bilateral lower extremity stents per Dr. Carrillo. History of vascular surgery (06/12/13) Aorto bi-iliac bypass graft per Dr. Carrillo. Family History Family History Mother Alzheimer disease Father Emphysema of lung Social History Social History Social History: Surrogate medical decision maker: hay Lang. Code status: Full code. Smoking packs per day: 1 Smoking cigarettes per day: 20.0 Years smoked: 53 Smoking pack-years: 53.00 Smoking status: Former smoker Tobacco type: cigarettes Second hand tobacco smoke exposure: Yes Alcohol intake: never Substance use: never Substance use type: does not use Do You Feel Safe in your Home?: Yes Lack of Transportation: No Lack of Food: Never True Current Housing: I Have Housing Concerned About Future Housing: No Difficulty Paying Gas/Electric Bills: No Difficulty Paying for Meds: No Currently Unemployed: No Education: Associate Degree Difficulty w/ Childcare or Family Care: No Additional living arrangements comments: . Lives with her only son in [place]. Additional occupation/education comments: Retired from the [employer]. Spiritual care concerns: No Meds Home Medications and Allergies Home Medications ?Medication ?Instructions ?Recorded ?Confirmed ?Type aspirin 81 mg tablet 81 mg PO DAILY 05/10/20 10/02/24 History isosorbide mononitrate 30 mg 30 mg PO DAILY #30 tabs 09/20/20 10/02/24 Rx tablet,extended release 24 hr melatonin 3 mg tablet 3 mg PO HS PRN Sleep 12/08/22 10/02/24 History omeprazole 40 mg capsule,delayed 40 mg PO DAILY 12/08/22 10/02/24 History release oxybutynin chloride 5 mg tablet 5 mg PO HS 12/08/22 10/02/24 History trazodone 50 mg tablet 50 mg PO HS 12/08/22 10/02/24 History ergocalciferol (vitamin D2) 1,250 50,000 unit PO BID 10/11/23 10/02/24 History mcg (50,000 unit) capsule atorvastatin 80 mg tablet 80 mg PO HS 03/10/24 10/02/24 History carvedilol 25 mg tablet 25 mg PO BIDWM 03/10/24 10/02/24 History lisinopril 40 mg tablet 40 mg PO DAILY 08/21/24 10/02/24 History nifedipine 60 mg tablet,extended 60 mg PO Q12H 08/21/24 10/02/24 History release Allergies Allergy/AdvReac Type Severity Reaction Status Date / Time Penicillins Allergy Unknown Unknown,Ham Verified 10/02/24 04:25 h Vital Signs Vital Signs - 24 hr 10/02/24 01:20 10/02/24 01:26 10/02/24 02:22 Temperature 97.8 F Pulse Rate 106 H Respiratory Rate 25 H 30 H Blood Pressure 223/85 H Pulse Oximetry 100 100 80 L Oxygen Delivery Room Air BiPAP Room Air Oxygen Flow Rate Fraction of Inspired Oxygen 10/02/24 02:22 10/02/24 02:32 10/02/24 03:16 Temperature Pulse Rate 102 H Respiratory Rate 20 Blood Pressure 212/82 H Pulse Oximetry 100 100 100 Oxygen Delivery BiPAP Nasal Cannula Oxygen Flow Rate 2 Fraction of Inspired Oxygen 10/02/24 03:45 10/02/24 04:00 10/02/24 04:00 Temperature 97.8 F Pulse Rate 97 98 Respiratory Rate 17 Blood Pressure 216/76 H Pulse Oximetry 100 100 Oxygen Delivery Nasal Cannula Oxygen Flow Rate 2 Fraction of Inspired Oxygen 10/02/24 05:16 10/02/24 05:30 10/02/24 05:33 Temperature Pulse Rate 101 H Respiratory Rate Blood Pressure 254/86 H 211/67 H Pulse Oximetry Oxygen Delivery Oxygen Flow Rate Fraction of Inspired Oxygen 10/02/24 05:41 10/02/24 06:00 10/02/24 07:41 Temperature 97.5 F L Pulse Rate 102 H 89 88 Respiratory Rate 35 H 16 Blood Pressure 211/85 H Pulse Oximetry 99 100 Oxygen Delivery BiPAP Oxygen Flow Rate Fraction of Inspired Oxygen 10/02/24 07:57 10/02/24 07:57 10/02/24 08:00 Temperature Pulse Rate 88 90 Respiratory Rate Blood Pressure 202/81 H Pulse Oximetry Oxygen Delivery Oxygen Flow Rate 3 Fraction of Inspired Oxygen 10/02/24 08:00 10/02/24 08:00 10/02/24 08:15 Temperature 97.8 F Pulse Rate 90 88 90 Respiratory Rate 16 16 Blood Pressure 205/68 H 227/91 H Pulse Oximetry 100 100 Oxygen Delivery Nasal Cannula Oxygen Flow Rate 2 Fraction of Inspired Oxygen 10/02/24 08:30 10/02/24 08:45 10/02/24 09:00 Temperature Pulse Rate 91 92 90 Respiratory Rate Blood Pressure 231/94 H 218/91 H 226/87 H Pulse Oximetry Oxygen Delivery Oxygen Flow Rate Fraction of Inspired Oxygen 10/02/24 09:15 10/02/24 09:30 10/02/24 09:45 Temperature Pulse Rate 93 97 95 Respiratory Rate Blood Pressure 223/88 H 202/75 H 192/73 H Pulse Oximetry Oxygen Delivery Oxygen Flow Rate Fraction of Inspired Oxygen 10/02/24 10:00 10/02/24 10:15 10/02/24 10:30 Temperature Pulse Rate 94 89 90 Respiratory Rate Blood Pressure 208/67 H 207/76 H 199/77 H Pulse Oximetry Oxygen Delivery Oxygen Flow Rate Fraction of Inspired Oxygen 10/02/24 10:45 10/02/24 11:00 10/02/24 11:15 Temperature Pulse Rate 86 86 84 Respiratory Rate Blood Pressure 216/80 H 213/72 H 202/73 H Pulse Oximetry Oxygen Delivery Oxygen Flow Rate Fraction of Inspired Oxygen 10/02/24 11:28 10/02/24 11:34 10/02/24 12:00 Temperature 97.3 F L 97.4 F L Pulse Rate 93 95 91 Respiratory Rate 20 16 Blood Pressure 191/77 H 208/81 H 179/51 H Pulse Oximetry 100 100 Oxygen Delivery Oxygen Flow Rate Fraction of Inspired Oxygen 10/02/24 12:00 10/02/24 12:00 10/02/24 14:22 Temperature Pulse Rate 93 93 95 Respiratory Rate 17 17 Blood Pressure 135/52 L Pulse Oximetry 97 97 Oxygen Delivery Nasal Cannula Oxygen Flow Rate 2 Fraction of Inspired Oxygen 28 Exam Narrative: General: alert and comfortable Eyes: EOMI, PERRLA ENNT External ears normal, Neck is supple, no masses, Respiratory systems: Clear to auscultation Cardiovascular S1, S2, normal rhythm, no murmur, rub, or gallop; no thrill or palpable murmurs on palpation. Gastrointestinal: soft, non-tender, and non-distended abdomen with no masses; BS present Skin: no rash, lesions, ulcerations, subcutaneous nodules or induration Musculoskeletal: no abnormality and no tenderness, normal ROM Neurologic: Alert and oriented x3, non focal Mental Status Exam: normal affect H&P: Results Labs Labs: Short CBC 10/02/24 Range/Units 01:45 WBC 8.9 (4.5-10.0) K/mm3 Hgb 9.9 L (12.0-15.0) g/dL Hct 28.8 L (37.0-47.0) % Plt Count 123 L (150-375) k/mm3 BMP 10/02/24 01:45 Sodium 139 Potassium 4.4 Chloride 106 Carbon Dioxide 21 L BUN 55 H D Creatinine 5.68 H Glucose 84 Calcium 8.1 L Liver Function 10/02/24 Range/Units 01:45 Total Bilirubin 0.4 (0.2-1.3) mg/dL AST 85 H (14-36) U/L ALT 29 (6-35) U/L Alkaline Phosphatase 132 H (38-126) U/L Albumin 3.7 (3.5-5.1) g/dL Assessment and Plan Assessment and plan (1) Acute exacerbation of CHF (congestive heart failure): Code(s): I50.9 - Heart failure, unspecified Status: Acute Plan Fluid overload from CHF and missing dialysis. Continue dialysis, Nephrology following. Hypertensive urgency Blood pressure on admission was 223/85 On nitro patch, continue home medications. Blood pressure improved to 135/52 monitor COPD Continue bronchodilator ERSD on dialysis as above DVT prophylaxis subQ Lovenox Full code Surrogate decision maker is hay varner Hospitalist [facility] Advance Care Plan I have confirmed that the patient's Advanced Care Plan is present, code status is documented, or surrogate decision maker is listed in patient medical record.: Yes Medication Reconciliation I have utilized all available resources to obtain, update and review the patients current medications (includes all prescriptions, OTC, herbals, cannabis, and nutritional supplements).: Yes
[2024-10-02] MEDS: carvediloL 25 MG TABLET PO (17:50)
[2024-10-02] MEDS: traZODone HCL 50 MG TABLET PO (20:04)
[2024-10-02] MEDS: oxyBUTYnin CHLORIDE 5 MG TABLET PO (20:04)
[2024-10-02] MEDS: ATORVASTATIN 40 MG TABLET 80 MG PO (20:04)
[2024-10-02] MEDS: MELATONIN 3 MG TABLET PO (20:04)
[2024-10-03] VITALS (23 sets, daily range): BP systolic 117–152; BP diastolic 47–102; PULSE 64–86; RESP 14–20; TEMP 36.2–36.8; O2SAT 94–96
[2024-10-03 04:34] LABS: Basophils Percent Auto 0.7 % (0.2-1.2); Eosinophils Absolute Auto 0.3 K/mm3 (0-0.3); Eosinophils Percent Auto 5.1 % (0-4.4); Hematocrit 26.1 % (37.0-47.0); Immature Granulocyte Absolute 0.04 K/mm3 (0.00-0.031); Immature Granulocyte Percent A 0.7 % (0-0.5); Lymphocytes Absolute Auto 0.74 K/mm3 (0.9-3.2); Lymphocytes Percent Auto 13.9 % (18.3-44.2); Mean Corpuscular HGB Conc 34.5 g/dl (32-36); Mean Corpuscular Hemoglobin 27.5 pg (26-34); Mean Corpuscular Volume 79.8 fl (80-100); Mean Platelet Volume 8.6 fl (7.4-10.4); Monocytes Absolute Auto 0.5 K/mm3 (0.1-0.6); Monocytes Percent Auto 9.7 % (2.6-8.5); Neutrophils Absolute Auto 3.7 K/mm3 (1.3-6.7); Neutrophils Percent Auto 69.9 % (45.5-73.1); Platelet Count Result 106 k/mm3 (150-375); Red Blood Count 3.27 M/mm3 (4.2-5.4); Red Cell Distribution Width 19.2 % (11.5-14.5); White Blood Count 5.3 K/mm3 (4.5-10.0)
[2024-10-03 05:12] LABS: Alanine Aminotransferase 18 U/L (6-35); Alkaline Phosphatase 92 U/L (38-126); Anion Gap 5 mmol/L (4-12); Aspartate Amino Transferase 31 U/L (14-36); Bilirubin,Total 0.4 mg/dL (0.2-1.3); Blood Urea Nitrogen 33 mg/dL (7-17); Calcium 7.9 mg/dL (8.4-10.2); Carbon Dioxide 30 mmol/L (22-30); Chloride 102 mmol/L (98-107); Estimated CRCL calculation 8 ml/min; Estimated Glomerular Filt Rate 12; Glucose 80 mg/dL (65-110); Magnesium 1.6 mg/dL (1.6-2.3); Phosphorus 3.3 mg/dL (2.5-4.5); Potassium 4.1 mmol/L (3.4-5.0); Sodium 137 mmol/L (137-145); Total Protein 5.9 g/dL (6.3-8.2)
[2024-10-03] MEDS: lisinopriL 20 MG TABLET 40 MG PO (09:31)
[2024-10-03] MEDS: PANTOPRAZOLE 40 MG TABLET PO (09:31)
[2024-10-03] MEDS: ASPIRIN 81 MG CHEWABLE TABLET PO (09:31)
[2024-10-03] MEDS: NIFEdipine 30 MG TAB.ER.24 60 MG PO (09:31)
[2024-10-03] MEDS: carvediloL 25 MG TABLET PO (09:32)
[2024-10-03] MEDS: ISOSORBIDE MONONITRATE 30 MG TAB.ER.24H PO (09:32)
[2024-10-03] MEDS: EPOETIN ALFA-EPBX 10,000 UNITS/ML VIAL 10000 UNITS IV PUSH (10:36)
--- NOTE | 2024-10-03 11:23 | P.PNNP_ITS ---
Progress Note: A&P Assessment and Plan (1) End stage renal disease: Code(s): N18.6 - End stage renal disease Status: Chronic Assessment and Plan: * HD tomorrow * continue T/T/S dialysis schedule while hospitalized * follow electrolytes, volume status, and clearance (2) Acute hypoxic respiratory failure: Code(s): J96.01 - Acute respiratory failure with hypoxia Status: Acute Assessment and Plan: * resolved * suspect multifactorial: * hypertensive urgency * mild pulmonary edema (CXR with small right pleural effusion and minimal left pleural effusion + minimal bibasilar pulmonary edema) * COPD * CHF * noncompliance (missed HD treatment on Tuesday) * viral testing for influenza/RSV/COVID negative * BiPAP PRN (weaned off currently) * supplemental oxygen - weaned off (3) Hypertension: Code(s): I10 - Essential (primary) hypertension Status: Chronic Assessment and Plan: * significant improvement * poor BP control at baseline * extremely elevated on admission * restarted on home medications * PRN IV hydralazine as needed * follow trend of hemodynamics (4) Volume overload: Code(s): E87.70 - Fluid overload, unspecified Status: Acute Assessment and Plan: * clinically better * as noted by presentation: * fluid/edema on CXR * increased lower extremity edema * missed HD treatment on Tuesday * fluid removal as tolerated to achieve euvolemia * dry ultrafiltration session today for further fluid removal based on recent CXR (5) Anemia: Qualifiers: Anemia type: unspecified type Qualified Code(s): D64.9 - Anemia, unspecified Code(s): D64.9 - Anemia, unspecified Status: Chronic Assessment and Plan: * related to ESRD * Epogen with HD * follow trend of H/H (6) COPD (chronic obstructive pulmonary disease): Qualifiers: COPD type: unspecified COPD Qualified Code(s): J44.9 - Chronic obstructive pulmonary disease, unspecified Code(s): J44.9 - Chronic obstructive pulmonary disease, unspecified Status: Chronic Assessment and Plan: * nebulizer treatments PRN Not opposed to discharge from renal perspective if otherwise medically stable. Will continue to follow. L Subjective Date/time seen: 10/03/24 11:23 Interval history: Follow-up for end stage renal disease on hemodialysis. Transferred to ICU yesterday afternoon due to concerns for possible need of IV drip/medication to control blood pressure but by the time of her arrival to the ICU, her blood pressure had stabilized with oral medications; tolerated dialysis yesterday without issue but fluid removal was limited due to cramping; tolerating dry ultrafiltration at the time of my visit (seen on DUF at 11:10AM); asking me about possible discharge today. Exam 2 Narrative: General: thin and somewhat frail female in NAD Heart: normal S1 and S2; no rub Lungs: clear anteriorly, decreased and coarse at bases Abdomen: soft, nontender, nondistended, positive bowel sounds Extremities: no cyanosis or clubbing; no edema Skin: warm and dry Objective Data Vital Signs Vital Signs: Vital Signs Temp Pulse Resp BP Pulse Ox O2 Del Method O2 Flow Rate 10/03/24 11:15 68 138/59 L 10/03/24 11:00 69 133/56 L 10/03/24 10:45 73 146/57 H 10/03/24 10:30 75 147/60 H 10/03/24 10:15 81 146/63 H 10/03/24 10:10 77 135/102 H 10/03/24 09:48 97.9 F 81 18 152/58 H 10/03/24 09:33 86 146/83 H 10/03/24 09:32 84 10/03/24 08:50 95 Nasal Cannula 1 10/03/24 08:00 80 10/03/24 08:00 97.4 F L 81 20 146/47 H 10/03/24 06:00 75 10/03/24 05:22 72 20 94 Nasal Cannula 1 10/03/24 04:00 98.2 F 73 20 130/50 L 10/03/24 04:00 72 10/03/24 04:00 72 14 94 Nasal Cannula 2 10/03/24 01:25 76 20 96 Nasal Cannula 1 10/03/24 00:00 76 10/03/24 00:00 75 20 143/71 H 10/02/24 23:37 75 14 94 Nasal Cannula 2 10/02/24 22:00 79 10/02/24 20:00 88 10/02/24 20:00 97.8 F 82 20 143/56 H 10/02/24 19:59 88 22 H 94 Nasal Cannula 2 10/02/24 19:58 88 20 97 Nasal Cannula 1 10/02/24 18:00 96 10/02/24 17:50 103 H 10/02/24 16:00 94 Nasal Cannula 2 10/02/24 16:00 95 10/02/24 16:00 97 13 94 Nasal Cannula 2 10/02/24 16:00 96 20 130/61 98 10/02/24 14:22 95 17 135/52 L 97 10/02/24 14:00 80 Intake/Output Intake/Output: Intake & Output 09/30/24 10/01/24 10/02/24 10/03/24 23:59 23:59 23:59 23:59 Intake Total 840 656 Output Total 1400 1500 Balance -560 -844 Meds/Results Medications: Active Medications Generic Name Dose Route Start Last Admin Trade Name Freq PRN Reason Stop Dose Admin Aspirin 81 mg 10/03/24 08:00 10/03/24 09:31 Aspirin 81 Mg Chewable Tablet PO 81 mg DAILY@0800 [facility] Administration Atorvastatin Calcium 80 mg 10/02/24 21:00 10/02/24 20:04 Atorvastatin 40 Mg Tablet PO 80 mg HS BRANDON Administration Carvedilol 25 mg 10/02/24 17:00 10/03/24 09:32 Carvedilol 25 Mg Tablet PO 25 mg BIDWM BRANDON Administration Epoetin Nathan-epbx 10,000 units 10/03/24 18:18 10/03/24 10:36 Epoetin Nathan-Epbx 10,000 Units/Ml Vial IV PUSH 10/03/24 18:19 10,000 units ONCE ONE Administration Ergocalciferol 1,250 mcg 10/02/24 17:00 Ergocalciferol (Vitamin D2) 1,250 Mcg (50,000 Units) Capsule PO BID [facility] Heparin Sodium (Porcine) 5,000 units 10/03/24 09:00 10/03/24 09:32 Heparin Sodium 5,000 Units/Ml Vial SUB-Q Not Given Q12HR [facility] Albumin Human 50 mls @ 999 mls/hr 10/02/24 05:57 Albutein IVPB 11/01/24 05:56 Q10M PRN HYPOTENSION Isosorbide Mononitrate 30 mg 10/02/24 09:40 10/03/24 09:32 Isosorbide Mononitrate 30 Mg Tab.Er.24h PO 30 mg DAILY BRANDON Administration Lisinopril 40 mg 10/02/24 09:35 10/03/24 09:31 Lisinopril 20 Mg Tablet PO 40 mg QAM BRANDON Administration Melatonin 3 mg 10/02/24 09:37 10/02/24 20:04 Melatonin 3 Mg Tablet PO 3 mg HS PRN Administration Sleep Miscellaneous Information 0 each 10/02/24 00:01 Ergocalciferol (Vitamin D2) 1,250 Mcg (50,000 Units) Capsule- Please Clarify Bid Direction XX 11/01/24 00:00 CLARIFY BRANDON Nifedipine 60 mg 10/02/24 09:40 10/03/24 09:31 Nifedipine 30 Mg Tab.Er.24 PO 60 mg Q12HR BRANDON Administration Oxybutynin Chloride 5 mg 10/02/24 21:00 10/02/24 20:04 Oxybutynin Chloride 5 Mg Tablet PO 5 mg HS BRANDON Administration Pantoprazole Sodium 40 mg 10/03/24 10:10 10/03/24 09:31 Pantoprazole 40 Mg Tablet PO 40 mg Q12HR BRANDON Administration Perflutren Lipid Microsphere 0 ml 10/02/24 14:12 Perflutren Lipid Microspheres 1.5 Ml Vial Diluted To 10 Ml Total Volume IV PUSH 10/05/24 14:12 ONCE PRN adequate visualization Protocol Trazodone HCl 50 mg 10/02/24 21:00 10/02/24 20:04 Trazodone Hcl 50 Mg Tablet PO 50 mg HS BRANDON Administration Radiology Results: ITS Impressions Chest X-Ray 10/02/24 22:34 IMPRESSION: Findings suggesting worsening congestive failure, an interval change from previous examination performed 20 hours earlier. Labs Labs: Laboratory Tests 10/03/24 04:27 10/03/24 04:27 Calcium 7.9 L Phosphorus 3.3 Magnesium 1.6 Total Bilirubin 0.4 AST 31 ALT 18 Alkaline Phosphatase 92 Total Protein 5.9 L Albumin 3.0 L Microbiology 10/02/24 04:25 Blood Blood Culture - Preliminary 10/02/24 04:25 Blood Blood Culture - Preliminary
--- NOTE | 2024-10-03 11:24 | P.CDI_ITS ---
CDI Query Clarification Request 1) Please clarify if the fluid overload was noncardiogenic in nature and type of CHF. The medical chart reflects the followin-year-old female with chronic kidney disease on dialysis presents to the emergency department for evaluation for worsening lower extremity swelling and increased shortness of breath. Patient states that she does dialysis on Tuesdays and Saturdays and reports she missed dialysis on Tuesday. Patient called EMS due to worsening shortness of breath and patient was found to be 80% on room air. (1) Acute exacerbation of CHF (congestive heart failure): Code(s): I50.9 - Heart failure, unspecified Status: Acute Plan Fluid overload from CHF and missing dialysis. Continue dialysis, Nephrology following. Nephrology documented: (1) End stage renal disease: Code(s): N18.6 - End stage renal disease Status: Chronic Assessment and Plan: * HD today * continue T/T/S dialysis schedule while hospitalized * follow electrolytes, volume status, and clearance (2) Acute hypoxic respiratory failure: Code(s): J96.01 - Acute respiratory failure with hypoxia Status: Acute Assessment and Plan: * suspect multifactorial: * hypertensive urgency * mild pulmonary edema (CXR with small right pleural effusion and minimal left pleural effusion + minimal bibasilar pulmonary edema) * COPD * CHF * noncompliance (missed HD treatment on Tuesday) * check viral testing for influenza/RSV/COVID * BiPAP PRN (weaned off currently) * supplemental oxygen - wean as tolerated (3) Hypertension: Code(s): I10 - Essential (primary) hypertension Status: Chronic Assessment and Plan: * poor BP control at baseline * extremely elevated on admission and at this time * restarted on home medications * PRN IV hydralazine as needed * follow trend of hemodynamics (4) Volume overload: Code(s): E87.70 - Fluid overload, unspecified Status: Acute Assessment and Plan: * as noted by presentation: * fluid/edema on CXR * increased lower extremity edema * missed HD treatment on Tuesday * fluid removal as tolerated to achieve euvolemia * may need to consider dry ultrafiltration session tomorrow... (5) Anemia: Qualifiers: Anemia type: unspecified type Qualified Code(s): D64.9 - Anemia, unspecified Code(s): D64.9 - Anemia, unspecified Status: Chronic Assessment and Plan: * related to ESRD * Epogen with HD - hold given issues with hypertension * follow trend of H/H (6) COPD (chronic obstructive pulmonary disease): Qualifiers: COPD type: unspecified COPD Qualified Code(s): J44.9 - Chronic obstructive pulmonary disease, unspecified Code(s): J44.9 - Chronic obstructive pulmonary disease, unspecified Status: Chronic Assessment and Plan: * nebulizer treatments PRN 10/02 CXR: Impression: Small right pleural effusion and minimal left pleural effusion. Minimal bibasilar pulmonary edema. Underlying COPD. Stable cardiomegaly 10/02 CXR: IMPRESSION: Findings suggesting worsening congestive failure, an interval change from previous examination performed 20 hours earlier. <Lana Zhu RN - Last Filed: 10/03/24 11:41> Clarified Diagnosis Clarified Diagnosis: Fluid overload non cardiogenic in nature <Angie Merrill MD - Last Filed: 10/03/24 12:56>
--- NOTE | 2024-10-03 11:24 | WPDCDIQUERY2 ---
CDI Query Clarification Request 1) Please clarify if the fluid overload was noncardiogenic in nature and type of CHF. The medical chart reflects the followin-year-old female with chronic kidney disease on dialysis presents to the emergency department for evaluation for worsening lower extremity swelling and increased shortness of breath. Patient states that she does dialysis on Tuesdays and Saturdays and reports she missed dialysis on Tuesday. Patient called EMS due to worsening shortness of breath and patient was found to be 80% on room air. (1) Acute exacerbation of CHF (congestive heart failure): Code(s): I50.9 - Heart failure, unspecified Status: Acute Plan Fluid overload from CHF and missing dialysis. Continue dialysis, Nephrology following. Nephrology documented: (1) End stage renal disease: Code(s): N18.6 - End stage renal disease Status: Chronic Assessment and Plan: HD today continue T/T/S dialysis schedule while hospitalized follow electrolytes, volume status, and clearance (2) Acute hypoxic respiratory failure: Code(s): J96.01 - Acute respiratory failure with hypoxia Status: Acute Assessment and Plan: suspect multifactorial: hypertensive urgency mild pulmonary edema (CXR with small right pleural effusion and minimal left pleural effusion + minimal bibasilar pulmonary edema) COPD CHF noncompliance (missed HD treatment on Tuesday) check viral testing for influenza/RSV/COVID BiPAP PRN (weaned off currently) supplemental oxygen - wean as tolerated (3) Hypertension: Code(s): I10 - Essential (primary) hypertension Status: Chronic Assessment and Plan: poor BP control at baseline extremely elevated on admission and at this time restarted on home medications PRN IV hydralazine as needed follow trend of hemodynamics (4) Volume overload: Code(s): E87.70 - Fluid overload, unspecified Status: Acute Assessment and Plan: as noted by presentation: fluid/edema on CXR increased lower extremity edema missed HD treatment on Tuesday fluid removal as tolerated to achieve euvolemia may need to consider dry ultrafiltration session tomorrow... (5) Anemia: Qualifiers: Anemia type: unspecified type Qualified Code(s): D64.9 - Anemia, unspecified Code(s): D64.9 - Anemia, unspecified Status: Chronic Assessment and Plan: related to ESRD Epogen with HD - hold given issues with hypertension follow trend of H/H (6) COPD (chronic obstructive pulmonary disease): Qualifiers: COPD type: unspecified COPD Qualified Code(s): J44.9 - Chronic obstructive pulmonary disease, unspecified Code(s): J44.9 - Chronic obstructive pulmonary disease, unspecified Status: Chronic Assessment and Plan: nebulizer treatments PRN 10/02 CXR: Impression: Small right pleural effusion and minimal left pleural effusion. Minimal bibasilar pulmonary edema. Underlying COPD. Stable cardiomegaly 10/02 CXR: IMPRESSION: Findings suggesting worsening congestive failure, an interval change from previous examination performed 20 hours earlier. <Lana Zhu RN - Last Filed: 10/03/24 11:41> Clarified Diagnosis Clarified Diagnosis: Fluid overload non cardiogenic in nature <Angie Merrill MD - Last Filed: 10/03/24 12:56>
--- NOTE | 2024-10-03 12:39 | PM.IMPN ---
Progress Note: A&P Assessment and Plan (1) End-stage renal disease on hemodialysis: Code(s): N18.6 - End stage renal disease; Z99.2 - Dependence on renal dialysis Status: Acute Assessment and Plan: ESRD on HD (Opal,Eliezer, Sat) Missed HD on 09/27 and presented to the ED on 10/02 with SOB, HTN Received HD on 10/02 with improvement in symptoms Dialysis again today 10/03 (2) Hypertensive urgency: Code(s): I16.0 - Hypertensive urgency Status: Acute Assessment and Plan: Hypertensive HTN due to missed dialysis pt started on home meds and with dialysis blood pressures much improved (3) Fluid overload: Code(s): E87.70 - Fluid overload, unspecified Status: Acute Assessment and Plan: likely secondary to above much improved (4) Hypoxic respiratory failure: Code(s): J96.91 - Respiratory failure, unspecified with hypoxia Status: Acute Assessment and Plan: due to volume overload, due to missed HD improved after dialysis now on 1 L O2 via NC Plan on dialysis as above DVT prophylaxis subQ Heparin Full code Surrogate decision maker is hay varner Subjective Date/time seen: 10/03/24 12:39 Interval history: Chief complaint fluid overload, hypertensive urgency, hypoxia Patient being seen hospitalist group 09/02: Patient is an IMU patient in the ICU, being seen for the hospitalist group. Hemodynamically stable, on 1 L oxygen via nasal cannula with adequate O2 sats. Patient denies any shortness of breath, chest pain, abdominal pain, nausea vomiting at this time. States she feels much better. Guarded dialysis done yesterday. Blood pressure is much stable and improved Review of Systems Review of Systems: All other systems reviewed and negative except as noted in the history above. Exam Narrative: General: alert and comfortable Eyes: EOMI, PERRLA ENNT External ears normal, Neck is supple, no masses, Respiratory systems: Clear to auscultation Cardiovascular S1, S2, normal rhythm, no murmur, rub, or gallop; no thrill or palpable murmurs on palpation. Gastrointestinal: soft, non-tender, and non-distended abdomen with no masses; BS present Skin: no rash, lesions, ulcerations, subcutaneous nodules or induration Musculoskeletal: no abnormality and no tenderness, normal ROM Neurologic: Alert and oriented x3, non focal Mental Status Exam: normal affect Objective Data Vital Signs Vital Signs: Vital Signs - 24 hr 10/02/24 14:00 10/02/24 14:22 10/02/24 16:00 Temperature Pulse Rate 80 95 96 Respiratory Rate 17 20 Blood Pressure 135/52 L 130/61 Pulse Oximetry 97 98 Oxygen Delivery Oxygen Flow Rate Fraction of Inspired Oxygen 10/02/24 16:00 10/02/24 16:00 10/02/24 16:00 Temperature Pulse Rate 97 95 Respiratory Rate 13 Blood Pressure Pulse Oximetry 94 94 Oxygen Delivery Nasal Cannula Nasal Cannula Oxygen Flow Rate 2 2 Fraction of Inspired Oxygen 10/02/24 17:50 10/02/24 18:00 10/02/24 19:58 Temperature Pulse Rate 103 H 96 88 Respiratory Rate 20 Blood Pressure Pulse Oximetry 97 Oxygen Delivery Nasal Cannula Oxygen Flow Rate 1 Fraction of Inspired Oxygen 10/02/24 19:59 10/02/24 20:00 10/02/24 20:00 Temperature 97.8 F Pulse Rate 88 82 88 Respiratory Rate 22 H 20 Blood Pressure 143/56 H Pulse Oximetry 94 Oxygen Delivery Nasal Cannula Oxygen Flow Rate 2 Fraction of Inspired Oxygen 10/02/24 22:00 10/02/24 23:37 10/03/24 00:00 Temperature Pulse Rate 79 75 75 Respiratory Rate 14 20 Blood Pressure 143/71 H Pulse Oximetry 94 Oxygen Delivery Nasal Cannula Oxygen Flow Rate 2 Fraction of Inspired Oxygen 10/03/24 00:00 10/03/24 01:25 10/03/24 04:00 Temperature Pulse Rate 76 76 72 Respiratory Rate 20 14 Blood Pressure Pulse Oximetry 96 94 Oxygen Delivery Nasal Cannula Nasal Cannula Oxygen Flow Rate 1 2 Fraction of Inspired Oxygen 10/03/24 04:00 10/03/24 04:00 10/03/24 05:22 Temperature 98.2 F Pulse Rate 72 73 72 Respiratory Rate 20 20 Blood Pressure 130/50 L Pulse Oximetry 94 Oxygen Delivery Nasal Cannula Oxygen Flow Rate 1 Fraction of Inspired Oxygen 10/03/24 06:00 10/03/24 08:00 10/03/24 08:00 Temperature 97.4 F L Pulse Rate 75 81 80 Respiratory Rate 20 Blood Pressure 146/47 H Pulse Oximetry Oxygen Delivery Oxygen Flow Rate Fraction of Inspired Oxygen 10/03/24 08:50 10/03/24 09:32 10/03/24 09:33 Temperature Pulse Rate 84 86 Respiratory Rate Blood Pressure 146/83 H Pulse Oximetry 95 Oxygen Delivery Nasal Cannula Oxygen Flow Rate 1 Fraction of Inspired Oxygen 10/03/24 09:48 10/03/24 10:10 10/03/24 10:15 Temperature 97.9 F Pulse Rate 81 77 81 Respiratory Rate 18 Blood Pressure 152/58 H 135/102 H 146/63 H Pulse Oximetry Oxygen Delivery Oxygen Flow Rate Fraction of Inspired Oxygen Intake/Output Intake/Output: Intake & Output 09/30/24 10/01/24 10/02/24 10/03/24 23:59 23:59 23:59 23:59 Intake Total 840 656 Output Total 1400 Balance -560 656 Meds/Results Medications: Active Medications Generic Name Dose Route Start Last Admin Trade Name Freq PRN Reason Stop Dose Admin Aspirin 81 mg 10/03/24 08:00 10/03/24 09:31 Aspirin 81 Mg Chewable Tablet PO 81 mg DAILY@0800 [facility] Administration Atorvastatin Calcium 80 mg 10/02/24 21:00 10/02/24 20:04 Atorvastatin 40 Mg Tablet PO 80 mg HS [facility] Administration Carvedilol 25 mg 10/02/24 17:00 10/03/24 09:32 Carvedilol 25 Mg Tablet PO 25 mg BIDWM BRANDON Administration Epoetin Nathan-epbx 10,000 units 10/03/24 18:18 10/03/24 10:36 Epoetin Nathan-Epbx 10,000 Units/Ml Vial IV PUSH 10/03/24 18:19 10,000 units ONCE ONE Administration Ergocalciferol 1,250 mcg 10/02/24 17:00 Ergocalciferol (Vitamin D2) 1,250 Mcg (50,000 Units) Capsule PO BID [facility] Heparin Sodium (Porcine) 5,000 units 10/03/24 09:00 10/03/24 09:32 Heparin Sodium 5,000 Units/Ml Vial SUB-Q Not Given Q12HR [facility] Albumin Human 50 mls @ 999 mls/hr 10/02/24 05:57 Albutein IVPB 11/01/24 05:56 Q10M PRN HYPOTENSION Isosorbide Mononitrate 30 mg 10/02/24 09:40 10/03/24 09:32 Isosorbide Mononitrate 30 Mg Tab.Er.24h PO 30 mg DAILY [facility] Administration Lisinopril 40 mg 06/24/25 09:35 10/03/24 09:31 Lisinopril 20 Mg Tablet PO 40 mg QAM [facility] Administration Melatonin 3 mg 10/02/24 09:37 10/02/24 20:04 Melatonin 3 Mg Tablet PO 3 mg HS PRN Administration Sleep Miscellaneous Information 0 each 10/02/24 00:01 Ergocalciferol (Vitamin D2) 1,250 Mcg (50,000 Units) Capsule- Please Clarify Bid Direction XX 11/01/24 00:00 CLARIFY [facility] Nifedipine 60 mg 10/02/24 09:40 10/03/24 09:31 Nifedipine 30 Mg Tab.Er.24 PO 60 mg Q12HR [facility] Administration Oxybutynin Chloride 5 mg 10/02/24 21:00 10/02/24 20:04 Oxybutynin Chloride 5 Mg Tablet PO 5 mg HS [facility] Administration Pantoprazole Sodium 40 mg 10/03/24 10:10 10/03/24 09:31 Pantoprazole 40 Mg Tablet PO 40 mg Q12HR [facility] Administration Perflutren Lipid Microsphere 0 ml 10/02/24 14:12 Perflutren Lipid Microspheres 1.5 Ml Vial Diluted To 10 Ml Total Volume IV PUSH 10/05/24 14:12 ONCE PRN adequate visualization Protocol Trazodone HCl 50 mg 10/02/24 21:00 10/02/24 20:04 Trazodone Hcl 50 Mg Tablet PO 50 mg HS [facility] Administration Radiology Results: ITS Impressions Chest X-Ray 10/02/24 22:34 IMPRESSION: Findings suggesting worsening congestive failure, an interval change from previous examination performed 20 hours earlier. Labs Labs: Laboratory Results - last 24 hr 10/02/24 10/02/24 10/03/24 01:32 12:16 04:27 WBC 5.3 RBC 3.27 L Hgb 9.0 L Hct 26.1 L MCV 79.8 L MCH 27.5 MCHC 34.5 RDW 19.2 H Plt Count 106 L MPV 8.6 Immature Gran % (Auto) 0.7 H Neut % (Auto) 69.9 Lymph % (Auto) 13.9 L [place] % (Auto) 9.7 H Eos % (Auto) 5.1 H Baso % (Auto) 0.7 Lymph # (Auto) 0.74 L [place] # (Auto) 0.5 Eos # (Auto) 0.3 Baso # (Auto) 0.0 Abs Immat Gran (auto) 0.04 H Absolute Neuts (auto) 3.7 Absolute Nucleated RBC 0.000 Nucleated RBC % 0.0 Expiratory Pressure 6 Inspiratory Pressure 12 Sodium 137 Potassium 4.1 Chloride 102 Carbon Dioxide 30 Anion Gap 5 BUN 33 H D Creatinine 3.60 H Estim Creat Clear Calc 8 Estimated GFR 12 L Glucose 80 Calcium 7.9 L Phosphorus 3.3 Magnesium 1.6 Total Bilirubin 0.4 AST 31 ALT 18 Alkaline Phosphatase 92 Total Protein 5.9 L Albumin 3.0 L Influenza A (RT-PCR) Negative Influenza B (RT-PCR) Negative RSV (RT-PCR) Negative SARS-CoV-2 RNA (RT-PCR) Negative
--- NOTE | 2024-10-03 14:07 | P.DS_ITS ---
DS: Admitting Diagnosis Discharge Date 10/03/24 Admitting Diagnosis SOB DS: Discharge Diagnosis Discharge Diagnosis (1) Missed dialysis: Status: Acute (2) Acute hypoxic respiratory failure: Code(s): J96.01 - Acute respiratory failure with hypoxia Status: Acute DS: Summary Hospital Course Hospital Course: 78-year-old female past medical history of CHF, COPD, end-stage renal disease on dialysis, presented to the account of shortness of breath and leg swelling. Patient reported she missed her dialysis on Tuesday and distension O2 sat leg swelling try which check ago when she came back he states yesterday having shortness of breath which prompted her to present to the ER for proper positioning care. Denies any chest pain no vomiting, no diarrhea, no abdominal focal symptoms no headaches. Reported otherwise she is adherent to her medications. Your evaluation notable for pulse rate 106, respiratory 25, blood pressure 223/85, saturating % on room air. Patient was initially on oxygen, nephrology was consulted and she underwent dialysis and eventually transitioned to room air. Blood pressure downtrended to normal on her home medication regimen. Even after dialysis today blood pressure continued to be within normal range. BP 133/57. Continue home medications F/u with PCP in 3-5 days F/u with Nephrology as instructed Patient encouraged not to miss her dialysis Time Spent with Patient Time attestation: Total time spent providing and/or coordinating discharge services: DS: Data Data Completed and Pending Labs on day of discharge: Labs from last 24 hours 10/03/24 10/02/24 04:27 01:32 WBC 5.3 RBC 3.27 L Hgb 9.0 L Hct 26.1 L MCV 79.8 L MCH 27.5 MCHC 34.5 RDW 19.2 H Plt Count 106 L MPV 8.6 Immature Gran % (Auto) 0.7 H Neut % (Auto) 69.9 Lymph % (Auto) 13.9 L [place] % (Auto) 9.7 H Eos % (Auto) 5.1 H Baso % (Auto) 0.7 Lymph # (Auto) 0.74 L [place] # (Auto) 0.5 Eos # (Auto) 0.3 Baso # (Auto) 0.0 Abs Immat Gran (auto) 0.04 H Absolute Neuts (auto) 3.7 Absolute Nucleated RBC 0.000 Nucleated RBC % 0.0 Expiratory Pressure 6 Inspiratory Pressure 12 Sodium 137 Potassium 4.1 Chloride 102 Carbon Dioxide 30 Anion Gap 5 BUN 33 H D Creatinine 3.60 H Estim Creat Clear Calc 8 Estimated GFR 12 L Glucose 80 Calcium 7.9 L Phosphorus 3.3 Magnesium 1.6 Total Bilirubin 0.4 AST 31 ALT 18 Alkaline Phosphatase 92 Total Protein 5.9 L Albumin 3.0 L Preliminary micro results at discharge 10/02/24 04:25 Blood Culture - Preliminary Blood 10/02/24 04:25 Blood Culture - Preliminary Blood Discharge Plan Discharge Attending physician on discharge: Angie Merrill Consulting providers: Rodolfo Mckeon Discharging Clinician: Angie Merrill Anticipated Discharge Date/Time: 10/03/24 14:05 Patient Disposition: Home Activity: as tolerated Diet: as tolerated and heart healthy Patient Instructions: Antibiotic Form, Heart Failure (DC) Patient Language: Malaysian Stand Alone Forms: General Discharge Information Follow-up/Referrals: Rodolfo Mckeon MD [Physician] - (F/u with nephrology as instructed) Se,MEERA Bates [Primary Care Provider] - (F/u with PCP in 3-5 days ) Discharge Medications: Continued aspirin 81 mg Tablet 81 mg PO DAILY isosorbide mononitrate 30 mg tablet extended release 24 hr 30 mg PO DAILY Qty: 30 0RF trazodone 50 mg tablet 50 mg PO HS omeprazole 40 mg capsule,delayed release(DR/EC) 40 mg PO DAILY oxybutynin chloride 5 mg tablet 5 mg PO HS melatonin 3 mg tablet 3 mg PO HS PRN (Reason: Sleep) ergocalciferol (vitamin D2) 1,250 mcg (50,000 unit) capsule 50,000 unit PO BID atorvastatin 80 mg tablet 80 mg PO HS carvedilol 25 mg tablet 25 mg PO BIDWM lisinopril 40 mg tablet 40 mg PO DAILY nifedipine 60 mg tablet extended release 60 mg PO Q12H Date of admission: 10/02/24 10:53 Primary Care Provider: TeresaAddie Admitting Provider: Kimberly Rodriguez Attending physician on admission: Kimberly Rodriguez Condition: Serious
== END 2024-10-03 17:28 | disposition home or self-care (01) | DRG 640 ==
LOC: ANHED 03:05 → ANHIMU 03:13 → ANHICU 10-03 14:06 → ANHIMU 10-04 13:54
PROVIDERS: Internal Medicine Nephrology; Admitting Provider Internal Medicine; Emergency Provider Emergency Medicine; PCP Nurse Practitioner Family; Visit Provider Internal Medicine
DX: E87.79 Other fluid overload (principal); J96.01 Acute respiratory failure with hypoxia; N18.6 End stage renal disease; I50.42 Chronic combined systolic (congestive) and diastolic (congestive) heart failure; I13.2 Hypertensive heart and chronic kidney disease with heart failure and with stage 5 chronic kidney disease, or end stage renal disease; I42.9 Cardiomyopathy, unspecified; I16.0 Hypertensive urgency; Z91.158 Patient's noncompliance with renal dialysis for other reason; E78.5 Hyperlipidemia, unspecified; D63.1 Anemia in chronic kidney disease; I73.9 Peripheral vascular disease, unspecified; J44.9 Chronic obstructive pulmonary disease, unspecified; E21.3 Hyperparathyroidism, unspecified; K55.20 Angiodysplasia of colon without hemorrhage; Z99.2 Dependence on renal dialysis; Z87.891 Personal history of nicotine dependence
CPT/HCPCS: 36415; 36600; 71045; 80053; 82375; 82805; 83050; 83735; 84100; 85018; 85025; 86706; 87040; 87340; 87637; 87641; 93005; 93306; 94002; 96374; 96375; 96376; 99285; A9270; G0257; G0378; J0360; J1938; J7030; Q5105

== ENCOUNTER 2025-01-23 19:30 | Inpatient (IN) | payer MEDICARE, BC, SELFPAY ==
[2025-01-23] VITALS (18 sets, daily range): BP systolic 113–143; BP diastolic 45–58; PULSE 74–88; RESP 12–30; TEMP 36.5; O2SAT 85–97
--- NOTE | ~2025-01-23 | XR_ITS ---
EXAMINATION: XR abdomen/kub 1V, 01/24/2025 16:14 CDT HISTORY: severe abdominal pain COMPARISON: No comparisons available. Technique: 3 view. Findings: Bowel gas pattern unremarkable. No obstruction. No free air. No abnormal calcifications No acute osseous abnormality. Impression: 1. No acute abnormality. Reviewed, dictated and finalized at location P. Impression: 1. No acute abnormality.
--- NOTE | ~2025-01-23 | US_ITS ---
EXAMINATION: US thoracentesis DATE: 01/24/2025 12:43 INDICATION: Moderate-sized right pleural effusion. TECHNIQUE: The procedure and its risks and benefits were discussed with the patient. Potential risks discussed included bleeding, infection, and pneumothorax. The patient understood the risks and agreed to proceed. The skin was prepped and draped in sterile fashion. 1% lidocaine was used for local anes thesia. Under ultrasound guidance, a 5 Fr catheter with trochar was advanced into the right pleural effusion. Fluid was aspirated. The catheter was removed, and a dressing was applied. There were no immediate complications. FINDINGS: Ultrasound images demonstrate a small right pleural effusion and the catheter within the fluid. IMPRESSION: 1. Successful ultrasound-guided thoracentesis yielding 1000 mL of clear rashad- colored fluid. Reviewed, dictated and finalized at location A.
--- NOTE | ~2025-01-23 | XR_ITS ---
Examination: XR chest 1V portable Clinical History: Shortness of breath Comparison: 10/02/2024 Technique: Portable AP Findings: Cardiomegaly. Hyperinflation. Right pleural effusion and basilar opacity. No acute bony abnormality. IMPRESSION: 1. Right pleural effusion with basilar atelectasis and/or airspace disease. 2. Emphysema with probable COPD. Reviewed, dictated and finalized at location R.
--- NOTE | ~2025-01-23 | CT_ITS ---
EXAMINATION: CT abdomen pelvis wo con DATE: 01/26/2025 04:34 INDICATION: Anemia. TECHNIQUE: Computed tomography (CT) of the abdomen and pelvis was performed without intravenous contrast. Automated exposure control and iterative reconstruction technique were employed. The dose-length product was 179.67 mGy-cm. COMPARISON: CT abdomen and pelvis 05/16/2022 FINDINGS: The visualized portions of the lung bases demonstrate emphysema and mild atelectasis. There is a small right pleural effusion. Cardiomegaly is noted. There are coronary artery calcifications. No pericardial effusion. There is periportal edema in the liver. The spleen is normal. There are gallstones in the gallbladder, which is normal in size. Gallbladder wall thickening is noted. There are widespread arterial calcifications. 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 The pancreas, adrenal glands, and kidneys are normal. There are calcified fibroids in the uterus. There are no dilated loops of bowel. The appendix is normal. There are no pathologically enlarged lymph nodes. There is no free int raperitoneal fluid. There is edema of the intra-abdominal fat and body wall fat. There is mild lumbar spondylosis and severe thoracic spondylosis. IMPRESSION: 1. Small right pleural effusion. 2. Emphysema. 3. Cholelithiasis. Gallbladder wall thickening may be secondary to interstitial edema. Reviewed, dictated and finalized at location E.
--- NOTE | ~2025-01-23 | CT_ITS ---
EXAMINATION:CT diagnostic chest wo con DATE: 01/24/2025 00:35 INDICATION: Shortness of breath. TECHNIQUE: Computed tomography (CT) of the chest was performed without intravenous contrast. Automated exposure control and iterative reconstruction technique were employed. The dose-length product (DLP) was 135.74 mGy-cm. COMPARISON: Chest CT 12/14/2023 FINDINGS: There is moderate emphysema. There are moderate-sized right and small left pleural effusions. There is dependent atelectasis bilaterally. There is an aberrant right subclavian artery. There are widespread arterial calcifications. Cardiomegaly is noted. There are coronary artery calcifications. No pericardial effusion. There is severe cervical and thoracic spondylosis. IMPRESSION: 1. Moderate-sized right and small left pleural effusions. 2. Moderate emphysema. Reviewed, dictated and finalized at location E.
--- NOTE | ~2025-01-23 | XR_ITS ---
Examination: XR chest 1V portable Clinical History: COPD/pleural effusions Comparison: X-ray 01/24/2025 Technique: Portable AP Findings: Cardiomegaly. Small right pleural effusion. Diffusely increased interstitial markings. Hyperinflation. No pneumothorax. No acute bony abnormality. IMPRESSION: 1. No significant change. 2. Possible interstitial pulmonary edema or pneumonitis. 3. Emphysema. 4. Small right pleural effusion. Reviewed, dictated and finalized at location R.
--- NOTE | ~2025-01-23 | XR_ITS ---
EXAMINATION: [id number] DATE: 01/24/2025 12:28 INDICATION: Status post right thoracentesis TECHNIQUE: frontal view of the chest was obtained. COMPARISON: Chest radiograph dated 01/23/2025 FINDINGS: Interval decrease in size of a now very small right pleural effusion with persistent blunting at the right costophrenic angle. There is also a small left pleural effusion similar with blunting at the costophrenic angle. Hyperexpansion lungs consistent with emphysema better appreciated on prior CT. Again seen is diffuse mild increased interstitial pattern which can be seen with mild pulmonary edema. Cardiomegaly. Atherosclerotic aorta. Surgical clips in the left epigastric region. IMPRESSION: 1. Very small bilateral pleural effusions decreased on the right post right thoracentesis. No pneumothorax. 2. Hyperexpansion lungs with persistent mild diffuse increased initial pattern consistent with emphysema superimposed mild pulmonary edema. 3. Cardiomegaly. Reviewed, dictated and finalized at location A. IMPRESSION: 1. Very small bilateral pleural effusions decreased on the right post right tho racentesis. No pneumothorax. 2. Hyperexpansion lungs with persistent mild diffuse increased initial pattern consistent with emphysema superimposed mild pulmonary edema. 3. Cardiomegaly.
[2025-01-24] VITALS (49 sets, daily range): BP systolic 103–230; BP diastolic 40–93; PULSE 77–113; RESP 15–24; TEMP 36–37.6; O2SAT 86–100; BMI 14.4
[2025-01-24 01:00] LABS: Immature Granulocyte Percent A 0.7 % (0-0.5); Lymphocytes Absolute Auto 0.59 K/mm3 (0.9-3.2); Mean Corpuscular HGB Conc 34.6 g/dl (32-36); Mean Corpuscular Hemoglobin 29.1 pg (26-34); Mean Corpuscular Volume 84.1 fl (80-100); Nucleated Red Blood Cells Absolute Auto 0.000 K/mm3 (0.0-0.012); Nucleated Red Blood Cells Perc 0.0 % (0.0-0.2); Platelet Count Result 115 k/mm3 (150-375); Red Blood Count 2.20 M/mm3 (4.2-5.4); White Blood Count 6.0 K/mm3 (4.5-10.0)
[2025-01-24 01:01] LABS: Hematocrit 18.5 % (37.0-47.0); Hemoglobin 6.4 g/dL (12.0-15.0)
--- NOTE | 2025-01-24 01:06 | ED.GENADULT ---
HPI - General Adult General Chief complaint: Shortness of Breath/Dyspnea Stated complaint: resolved SOB Time Seen by Provider: 01/23/25 23:15 History of Present Illness HPI narrative: Patient 79-year-old female who presents emergency department with chief complaint of shortness of breath. Patient reports she has end-stage renal disease on dialysis Tuesday reports that this evening she started getting short of breath used her inhaler and reports that her breathing is doing much better at this time the patient does report that she has felt kind of weak and run down Related Data Home Medications ?Medication ?Instructions ?Recorded ?Confirmed ?Last Taken ?Type aspirin 81 mg tablet 81 mg PO DAILY 05/10/20 10/02/24 10/01/24 History melatonin 3 mg tablet 3 mg PO HS PRN Sleep 12/08/22 10/02/24 10/01/24 History omeprazole 40 mg capsule,delayed 40 mg PO DAILY 12/08/22 10/02/24 10/01/24 History release oxybutynin chloride 5 mg tablet 5 mg PO HS 12/08/22 10/02/24 10/01/24 History trazodone 50 mg tablet 50 mg PO HS 12/08/22 10/02/24 10/01/24 History ergocalciferol (vitamin D2) 1,250 50,000 unit PO BID 10/11/23 10/02/24 10/01/24 History mcg (50,000 unit) capsule atorvastatin 80 mg tablet 80 mg PO HS 03/10/24 10/02/24 10/01/24 History carvedilol 25 mg tablet 25 mg PO BIDWM 03/10/24 10/02/24 Unknown History lisinopril 40 mg tablet 40 mg PO DAILY 08/21/24 10/02/24 10/01/24 History nifedipine 60 mg tablet,extended 60 mg PO Q12H 08/21/24 10/02/24 10/01/24 History release Allergies Allergy/AdvReac Type Severity Reaction Status Date / Time Penicillins Allergy Unknown Unknown,Ham Verified 10/02/24 04:25 h Review of Systems Review of Systems: A 10 system review of systems was completed on the patient and is negative except for what is stated in the HPI. Nursing and ancillary documentation was reviewed. [facility] Past Medical History Medical History Hypertensive cardiomegaly Hyperparathyroidism due to ESRD on dialysis End-stage renal disease on hemodialysis Tuesday. Dialysis managed by Dr. Joshua Motley Hyperlipidemia Chronic anemia History of blood transfusion. COPD with emphysema Peripheral arterial disease Combined systolic and diastolic congestive heart failure Echocardiogram on 09/10/2020 EF of 20 to 25%, grade 1 diastolic dysfunction, reduced RV systolic function. 12/2020 echo EF 40-46% with segmental wall motion abnormalities Gastric AVM Cardiomyopathy Presumed ischemic with moderately sized moderately severe reversible defect and small mild non reversible infarct on Lexiscan stress on 09/12/2020. Hypertension Surgical History Surgical History Surgically constructed arteriovenous fistula Left upper arm History of colonoscopy History of colon polyps, internal hemorrhoids, and diverticulosis. History of esophagogastroduodenoscopy History of gastric erosions, gastric polyps, and duodenal AVMs. History of revascularization procedure of lower extremity (10/2019) Bilateral lower extremity stents per Dr. Carrillo. History of vascular surgery (06/12/13) Aorto bi-iliac bypass graft per Dr. Carrillo. Family History Family History Mother Alzheimer disease Father Emphysema of lung Social History Social History Social History: Surrogate medical decision maker: hay Lang. Code status: Full code. Smoking packs per day: 1 Smoking cigarettes per day: 20.0 Years smoked: 53 Smoking pack-years: 53.00 Smoking status: Former smoker Tobacco type: cigarettes Second hand tobacco smoke exposure: Yes Alcohol intake: never Substance use: never Substance use type: does not use Do You Feel Safe in your Home?: Yes Lack of Transportation: No Lack of Food: Never True Current Housing: I Have Housing Concerned About Future Housing: No Difficulty Paying Gas/Electric Bills: No Difficulty Paying for Meds: No Currently Unemployed: No Education: Associate Degree Difficulty w/ Childcare or Family Care: No Additional living arrangements comments: . Lives with her only son in [place]. Additional occupation/education comments: Retired from the [employer]. Spiritual care concerns: No Exam Narrative: GENERAL: Well-appearing, well-nourished, and in no acute distress. HEAD: Normocephalic, atraumatic. EYES: PERRLA and EOMI. ENT: Nares clear, no rhinorrhea or epistaxis. Mucous membranes moist. NECK: Supple. CHEST: Clear to auscultation. No respiratory distress. HEART: Regular rate and rhythm. No murmur heard. Normal peripheral pulses. ABDOMEN: Soft, nontender, nondistended, normal active bowel sounds. EXTREMITIES: Normal range of motion. No edema. Av graft present in left forearm with palpable thrill SKIN: Warm, dry, no rash. NEURO: No focal deficits. Alert and oriented x3. PSYCH: Normal mood and affect. Course Vital Signs Vital signs: Vital Signs Temperature 36.5 C 01/23/25 20:07 Pulse Rate 87 01/23/25 20:07 Respiratory Rate 20 01/23/25 20:07 Blood Pressure 113/46 L 01/23/25 20:07 Pulse Oximetry 97 01/23/25 20:07 Oxygen Delivery Room Air 01/23/25 20:07 Temperature 36.5 C 01/23/25 20:07 Pulse Rate 81 01/24/25 02:01 Respiratory Rate 16 01/24/25 01:31 Blood Pressure 149/52 H 01/24/25 01:31 Pulse Oximetry 100 01/24/25 01:42 Oxygen Delivery Nasal Cannula 01/24/25 01:42 Oxygen Flow Rate 2 01/24/25 01:42 Medical Decision Making [facility] Narrative Medical decision making narrative: Chest x-ray showed evidence of pleural effusion laboratory studies were obtained that showed hemoglobin of 6.4 Due to this the patient will be admitted for observation will be given a unit of packed red blood cells and also thoracentesis will be ordered Vital Signs Vital Signs: Vital Signs Temperature 36.5 C 01/23/25 20:07 Pulse Rate 87 01/23/25 20:07 Respiratory Rate 20 01/23/25 20:07 Blood Pressure 113/46 L 01/23/25 20:07 Pulse Oximetry 97 01/23/25 20:07 Oxygen Delivery Room Air 01/23/25 20:07 Temperature 36.5 C 01/23/25 20:07 Pulse Rate 81 01/24/25 02:01 Respiratory Rate 16 01/24/25 01:31 Blood Pressure 149/52 H 01/24/25 01:31 Pulse Oximetry 100 01/24/25 01:42 Oxygen Delivery Nasal Cannula 01/24/25 01:42 Oxygen Flow Rate 2 01/24/25 01:42 Lab Data 01/24/25 00:54 01/24/25 00:54 Labs: Lab Results 01/24/25 01/24/25 Range/Units 00:54 01:59 WBC 6.0 (4.5-10.0) K/mm3 RBC 2.20 L (4.2-5.4) M/mm3 Hgb 6.4 L* (12.0-15.0) g/dL Hct 18.5 L* (37.0-47.0) % MCV 84.1 (80-100) fl MCH 29.1 (26-34) pg MCHC 34.6 (32-36) g/dl RDW 18.2 H (11.5-14.5) % Plt Count 115 L (150-375) k/mm3 MPV 8.5 (7.4-10.4) fl Immature Gran % (Auto) 0.7 H (0-0.5) % Neut % (Auto) 77.1 H (45.5-73.1) % Lymph % (Auto) 9.8 L (18.3-44.2) % Vance % (Auto) 9.6 H (2.6-8.5) % Eos % (Auto) 1.8 (0-4.4) % Baso % (Auto) 1.0 (0.2-1.2) % Lymph # (Auto) 0.59 L (0.9-3.2) K/mm3 Vance # (Auto) 0.6 (0.1-0.6) K/mm3 Eos # (Auto) 0.1 (0-0.3) K/mm3 Baso # (Auto) 0.1 (0.0-0.1) K/mm3 Abs Immat Gran (auto) 0.04 H (0.00-0.031) K/mm3 Absolute Neuts (auto) 4.7 (1.3-6.7) K/mm3 Absolute Nucleated RBC 0.000 (0.0-0.012) K/mm3 Nucleated RBC % 0.0 (0.0-0.2) % Sodium 132 L (137-145) mmol/L Potassium 3.7 (3.4-5.0) mmol/L Chloride 96 L (98-107) mmol/L Carbon Dioxide 29 (22-30) mmol/L Anion Gap 7 (4-12) mmol/L BUN 63 H D (7-17) mg/dL Creatinine 4.12 H (0.7-1.0) mg/dL Estim Creat Clear Calc 6 ml/min Estimated GFR 10 L (59 - ) Glucose 79 (65-110) mg/dL Calcium 8.1 L (8.4-10.2) mg/dL Total Bilirubin 0.2 (0.2-1.3) mg/dL AST 24 (14-36) U/L ALT 9 (6-35) U/L Alkaline Phosphatase 80 (38-126) U/L Troponin I 0.049 H* (0.000-0.034) ng/mL Total Protein 6.3 (6.3-8.2) g/dL Albumin 3.2 L (3.5-5.1) g/dL Blood Type Pending Antibody Screen Pending Discharge Plan Discharge Clinical Impression: Shortness of breath, Pleural effusion, Acute anemia, End stage renal disease Patient Disposition: Still a Patient Condition: Stable Patient Language: Bruneian Prescriptions: No Action aspirin 81 mg Tablet 81 mg PO DAILY isosorbide mononitrate 30 mg tablet extended release 24 hr 30 mg PO DAILY Qty: 30 0RF trazodone 50 mg tablet 50 mg PO HS omeprazole 40 mg capsule,delayed release(DR/EC) 40 mg PO DAILY oxybutynin chloride 5 mg tablet 5 mg PO HS melatonin 3 mg tablet 3 mg PO HS PRN (Reason: Sleep) ergocalciferol (vitamin D2) 1,250 mcg (50,000 unit) capsule 50,000 unit PO BID atorvastatin 80 mg tablet 80 mg PO HS carvedilol 25 mg tablet 25 mg PO BIDWM lisinopril 40 mg tablet 40 mg PO DAILY nifedipine 60 mg tablet extended release 60 mg PO Q12H Follow-up/Referrals: Teresa,MEERA Bates [Primary Care Provider, Unknown] Time of Disposition: 02:31
[2025-01-24 01:12] LABS: Alanine Aminotransferase 9 U/L (6-35); Albumin Level 3.2 g/dL (3.5-5.1); Alkaline Phosphatase 80 U/L (38-126); Anion Gap 7 mmol/L (4-12); Aspartate Amino Transferase 24 U/L (14-36); Bilirubin,Total 0.2 mg/dL (0.2-1.3); Blood Urea Nitrogen 63 mg/dL (7-17); Calcium 8.1 mg/dL (8.4-10.2); Carbon Dioxide 29 mmol/L (22-30); Chloride 96 mmol/L (98-107); Estimated CRCL calculation 6 ml/min; Estimated Glomerular Filt Rate 10; Glucose 79 mg/dL (65-110); Potassium 3.7 mmol/L (3.4-5.0); Sodium 132 mmol/L (137-145); Total Protein 6.3 g/dL (6.3-8.2)
[2025-01-24 01:41] LABS: Troponin I 0.049 ng/mL (0.000-0.034)
--- NOTE | 2025-01-24 02:00 | ECG_ITS ---
Test Date: 2025-01-24 02:08:36 Measurements Intervals [place] Rate: 80 P: 0 MT: 0 QRS: 24 QRSD: 80 T: 78 QT: 406 QTc: 469 Interpretive Statements SINUS RHYTHM WITH ATRIAL AND VENTRICULAR PREMATURE COMPLEXES CONSIDER ANTERIOR INFARCT, AGE INDETERMINATE NONSPECIFIC ST-T WAVE ABNORMALITY- ANTEROLAT/HIGH LAT LEADS ABNORMAL ECG Compared to ECG 10/02/2024 01:23:05 HEART RATE HAS DECREASED Electronically Signed On 01-24-2025 07:52:21 CDT by Gael Steward D.O.
[2025-01-24] MEDS: TUBING, BLOOD SET 1 EACH XX (05:04)
[2025-01-24] MEDS: SODIUM CHLORIDE 0.9% IV 250 ML 30 ML IV CONT (05:04)
--- NOTE | 2025-01-24 05:17 | PC.NURSE ---
This RN spoke with pts Dialysis facility and updated about pts admission
[2025-01-24 06:33] LABS: Hematocrit 24.9 % (37.0-47.0); Hemoglobin 8.4 g/dL (12.0-15.0)
--- NOTE | 2025-01-24 07:31 | PC.NURSE ---
BSR completed with Trisha ORNELAS
[2025-01-24 08:19] LABS: Platelet Count Result 125 k/mm3 (150-375)
[2025-01-24 08:24] LABS: INR 1.0; Partial Thromboplastin Time 32.5 Seconds (22.3-36.8); Prothrombin Time 13.2 Seconds (11.1-14.7)
--- NOTE | 2025-01-24 12:45 | ADMGEN ---
This patient, Alina Allen, was admitted to [facility] Surg Room 330-02. Patient/family oriented to hospital policies and general routines including ID bracelet, bed and alarms, visiting hours, pain management, procedures, bathroom and other care routines, personal items, smoking policy, room service/diet, and visiting hours. Information on how to activate the Rapid Response Team has been discussed. Patient/Family are encouraged to report perceived risks to care and to ask questions if they do not understand what they are told or what they should do.
[2025-01-24] MEDS: LIDOCAINE/PRILOCAINE CREAM 2.5-2.5% TUBE 1 EACH TOPICAL (13:18)
[2025-01-24 13:44] LABS: Appearance Pleural Fluid Hazy (Clear); Color Pleural Fluid Yellow (Colorless); Lymphocytes Pleural Fluid 34 %; Macrophages Pleural Fluid 8 %; Mesothelial Cells Pleural Flui 36 %; Monocytes Pleural Fluid 19 %; Neutrophils Pleural Fluid 2 % (0-25); Nucleated Cell Pleural Fluid 401 /uL (0-1000); Other Cells Pleural Fluid 1 %
--- NOTE | 2025-01-24 14:10 | P.CONNP_ITS ---
Assessment and Plan Assessment and plan (1) End stage renal disease: Code(s): N18.6 - End stage renal disease Status: Chronic Assessment and Plan: * HD today * continue T/T/S dialysis schedule while hospitalized * follow electrolytes, volume status, and clearance (2) Acute hypoxic respiratory failure: Code(s): J96.01 - Acute respiratory failure with hypoxia Status: Acute Assessment and Plan: * as noted on presentation * suspect multifactorial: * hypertensive urgency * pleural effusions * anemia * COPD * CHF * supplemental oxygen as needed * continue therapy as outlined (3) Anemia: Qualifiers: Anemia type: unspecified type Qualified Code(s): D64.9 - Anemia, unspecified Code(s): D64.9 - Anemia, unspecified Status: Chronic Assessment and Plan: * partly related to ESRD * anemia studies noted * adequate iron stores * Epogen with HD * PRBC transfusion per protocol * 1 unit on admission (01/24) * follow trend of H/H (4) Volume overload: Code(s): E87.70 - Fluid overload, unspecified Status: Acute Assessment and Plan: * improvement noted * as noted by presentation: * fluid/pleural effusion on CXR and CT scan * hypoxia * s/p right thoracentesis earlier today (01/24) * 1000cc removed * last Echo (10/02/24) noted: * left ventricular ejection fraction is visually estimated to be 60 - 65% * severe concentric left ventricular hypertrophy * right ventricle is normal in size and systolic function * no aortic regurgitation * mild mitral regurgitation * mild tricuspid regurgitation * continue fluid removal with HD as tolerated in an effort to achieve euvolemia * follow volume status (5) Hypertension: Code(s): I10 - Essential (primary) hypertension Status: Chronic Assessment and Plan: * quite elevated at this time * poor BP control at baseline * restart home medications * PRN IV medications if needed * follow trend of hemodynamics (6) COPD (chronic obstructive pulmonary disease): Qualifiers: COPD type: unspecified COPD Qualified Code(s): J44.9 - Chronic obstructive pulmonary disease, unspecified Code(s): J44.9 - Chronic obstructive pulmonary disease, unspecified Status: Chronic Assessment and Plan: * no evidence of exacerbation * use nebulizer treatments PRN * supplemental oxygen - wean as tolerated I will continue to follow the patient with you while she remains hospitalized and make further recommendations as deemed necessary. Thank you for allowing me to participate in the care of this patient. L History of Present Illness Reason for Consult Consult date: 01/24/25 Reason for consult: end stage renal disease Chief Complaint Chief complaint: Shorntess of breath, Anemia end-stage renal diseas History of Present Illness Narrative: The patient is a 79-year-old female with a past medical history as outlined below who presented to [facility] Emergency room for shortness of breath. Apparently, yesterday evening prior to presentation to the ER, the patient had acute worsening of her baseline shortness of breath. The patient used her home inhalers with some improvement in her shortness of breath but given her known and complex history of COPD and issues related to volume overload, her son called 911 for further assessment. On arrival by EMS, her shortness of breath had improved significantly but she is was feeling quite fatigued and weak and run down. She was subsequently transferred to the emergency room for further assessment. Workup and evaluation emergency room demonstrated the patient to be hemodynamically stable but still having complaints of shortness of breath. Supplemental oxygen was applied for comfort although her oxygen saturations appear to be relatively stable on presentation to the ER. Routine blood work demonstrated white blood cell count of 6.0, hemoglobin 6.4, hematocrit 18.5, platelet count of 115, sodium 132, potassium 3.7, bicarb 29, BUN 63, creatinine 4.12, glucose 79, calcium 8.1, normal LFTs, mildly elevated troponin 0.049, and albumin of 3.2. Her chest x-ray showed a right pleural effusion with by a basilar atelectasis and/or airspace disease as well as emphysema with probable COPD. A subsequent CT scan of the chest demonstrated moderate sized right and small left pleural effusions in association with moderate emphysema. Given these constellation of symptoms, laboratory findings, and imaging studies, the patient was subsequently admitted to the hospital for further evaluation and therapy. Since her admission, she tolerated a packed red blood cell transfusion and just recently had a right-sided thoracentesis with approximately 1 L of fluid removed with this procedure. She appears to have tolerated these interventions reasonably well. Renal consultation was requested due to her end-stage renal disease. The patient normally dialyzes on a Tuesday, , Tuesday schedule under the care of Dr. Joshua Motley at [place]. From a dialysis perspective, she usually does fairly well with relative stability in her monthly labs and fluid/volume status. her respiratory status is sometimes complicated by her known history of emphysema/COPD in association with development of pleural effusions and mild volume overload much as on this presentation to the hospital as well. Her last dialysis treatment was on 01/22/2025. Currently, at the time my evaluation, she is receiving dialysis and appears to be in no acute distress (she was seen on dialysis at 2:00PM). Review of Systems 2 Review of Systems: As per HPI. [facility] Past Medical History Medical History Hypertensive cardiomegaly Hyperparathyroidism due to ESRD on dialysis End-stage renal disease on hemodialysis Tuesday. Dialysis managed by Dr. Joshua Motley Hyperlipidemia Chronic anemia History of blood transfusion. COPD with emphysema Peripheral arterial disease Combined systolic and diastolic congestive heart failure Echocardiogram on 09/10/2020 EF of 20 to 25%, grade 1 diastolic dysfunction, reduced RV systolic function. 12/2020 echo EF 40-46% with segmental wall motion abnormalities Gastric AVM Cardiomyopathy Presumed ischemic with moderately sized moderately severe reversible defect and small mild non reversible infarct on Lexiscan stress on 09/12/2020. Hypertension Surgical History Surgical History Surgically constructed arteriovenous fistula Left upper arm History of colonoscopy History of colon polyps, internal hemorrhoids, and diverticulosis. History of esophagogastroduodenoscopy History of gastric erosions, gastric polyps, and duodenal AVMs. History of revascularization procedure of lower extremity (10/2019) Bilateral lower extremity stents per Dr. Carrillo. History of vascular surgery (06/12/13) Aorto bi-iliac bypass graft per Dr. Carrillo. Family History Family History Mother Alzheimer disease Father Emphysema of lung Social History Social History Social History: Surrogate medical decision maker: hay Lang. Code status: Full code. Smoking packs per day: 0.5 Smoking cigarettes per day: 10.0 Years smoked: 53 Smoking pack-years: 26.50 Smoking status: Former smoker Tobacco type: cigarettes Second hand tobacco smoke exposure: Yes Smoking end date: 09/20/74 Alcohol intake: never Substance use: never Substance use type: does not use Do You Feel Safe in your Home?: Yes Lack of Transportation: No Lack of Food: Never True Current Housing: I Have Housing Concerned About Future Housing: No Difficulty Paying Gas/Electric Bills: No Difficulty Paying for Meds: No Currently Unemployed: No Education: Associate Degree Difficulty w/ Childcare or Family Care: No Additional living arrangements comments: . Lives with her only son in [place]. Additional occupation/education comments: Retired from the [employer]. Spiritual care concerns: No Meds Home Medications and Allergies Home Medications ?Medication ?Instructions ?Recorded ?Confirmed ?Type aspirin 81 mg tablet 81 mg PO DAILY 05/10/2001/09 History isosorbide mononitrate 30 mg 30 mg PO DAILY #30 tabs 0 09/20/20 01/24/25 Rx tablet,extended release 24 hr melatonin 3 mg tablet 3 mg PO HS PRN Sleep 3 01/24/25 History omeprazole 40 mg capsule,delayed 40 mg PO DAILY 01/24/25 History release oxybutynin chloride 5 mg tablet 5 mg PO HS 12/08/22 History trazodone 50 mg tablet 50 mg PO HS 12/08/22 5 History ergocalciferol (vitamin D2) 1,250 50,000 unit PO BID 0 10/11/23 01/24/25 History mcg (50,000 unit) capsule atorvastatin 80 mg tablet 80 mg PO HS 03/10/24 5 History carvedilol 25 mg tablet 25 mg PO BIDWM 03/10/2401/09 History lisinopril 40 mg tablet 40 mg PO DAILY 08/21/2401/09 History nifedipine 60 mg tablet,extended 60 mg PO Q12H 5 01/24/25 History release Allergies Allergy/AdvReac Type Severity Reaction Status Date / Time Penicillins Allergy Unknown Unknown,Ham Verified 01/24/25 13:12 h Vital Signs Vital Signs Temp Pulse Resp BP Pulse Ox O2 Del Method O2 Flow Rate 01/24/25 14:15 86 230/80 H 01/24/25 14:00 87 225/80 H 01/24/25 13:38 83 216/72 H 01/24/25 13:30 2 01/24/25 13:30 98.3 F 81 18 215/71 H 95 01/24/25 10:45 78 17 99 01/24/25 10:01 80 18 219/76 H 01/24/25 09:01 82 15 229/68 H 01/24/25 08:01 80 16 210/77 H 98 01/24/25 08:00 80 17 100 01/24/25 07:30 82 18 100 01/24/25 07:15 81 18 99 01/24/25 06:45 80 16 194/63 H 98 01/24/25 06:02 98.3 F 83 21 H 194/63 H 98 01/24/25 06:01 81 22 H 194/63 H 01/24/25 06:00 81 16 01/24/25 05:45 80 18 01/24/25 05:40 79 18 01/24/25 05:02 98.2 F 83 20 177/55 H 99 01/24/25 04:44 82 15 162/60 H 98 01/24/25 04:44 98.3 F 83 17 162/60 H 99 01/24/25 04:00 85 18 170/61 H 98 01/24/25 03:30 82 16 167/63 H 99 01/24/25 03:00 82 20 165/64 H 100 01/24/25 02:45 83 20 99 01/24/25 02:39 80 17 170/75 H 97 01/24/25 02:18 81 22 H 164/79 H 98 01/24/25 02:01 81 01/24/25 01:42 100 Nasal Cannula 2 01/24/25 01:42 86 L Room Air 01/24/25 01:31 81 16 149/52 H 100 01/24/25 01:30 81 18 100 01/24/25 01:16 77 16 152/52 H 100 01/24/25 01:15 80 15 100 01/24/25 01:10 80 18 144/57 H 99 01/24/25 01:00 78 17 89 L 01/24/25 00:45 83 23 H 01/24/25 00:18 84 24 H 93 01/24/25 00:00 84 21 H 93 01/23/25 23:46 86 19 133/54 L 92 01/23/25 23:45 12 01/23/25 23:31 87 18 128/58 L 93 01/23/25 23:30 86 22 H 96 01/23/25 23:18 88 21 H 94 01/23/25 23:09 86 23 H 88 L 01/23/25 22:55 22 H 96 01/23/25 22:32 80 20 143/51 H 93 01/23/25 22:30 78 24 H 93 01/23/25 22:04 81 20 94 01/23/25 21:52 75 22 H 135/54 L 93 Room Air 01/23/25 21:48 81 21 H 97 01/23/25 21:47 74 30 H 135/54 L 95 01/23/25 21:32 75 20 136/45 L 01/23/25 21:30 77 26 H 93 01/23/25 21:26 75 23 H 126/49 L 85 L 01/23/25 21:24 96 01/23/25 20:07 97.7 F 87 20 113/46 L 97 Room Air Exam 2 Narrative: GENERAL APPEARANCE: thin, frail, and elderly female in no acute distress HEENT: normocephalic, atraumatic, normal conjunctiva and sclera, nares patient NECK: no lymphadenopathy, thyromegaly, or JVD MOUTH: normal lips, teeth, and gums CARDIOVASCULAR: RRR, normal S1 and S2, no rub RESPIRATORY: coarse breath sounds noted; decreased at bases ABDOMEN: soft, nontender, nondistended, positive bowel sounds present EXTREMITIES: no evidence of cyanosis, clubbing, trace edema NEUROLOGICAL: alert and oriented x 3; CN II - XII intact bilaterally; no focal deficits noted Results Lab Results 01/26/25 06:23 01/26/25 06:23 Lab results: Most recent lab results Calcium 8.1 mg/dL (8.4-10.2) L 01/24/25 00:54
[2025-01-24 14:17] LABS: Hepatitis B Surface Antigen Negative (Negative)
--- NOTE | 2025-01-24 14:26 | PM.IMHP ---
H&P: HPI History of Present Illness Date/Time: 01/24/25 14:26 Chief Complaint: Shortness of Breath/Dyspnea Narrative: ER-HPI narrative: Patient 79-year-old female who presents emergency department with chief complaint of shortness of breath. Patient reports she has end-stage renal disease on dialysis Tuesday reports that this evening she started getting short of breath used her inhaler and reports that her breathing is doing much better at this time the patient does report that she has felt kind of weak and run down Patient did have dialysis on Tuesday as scheduled and on Tuesday evening developed shortness of breath she denies any associate symptoms of cough or URI symptoms, to further evaluate patient had Ct scan of the chest which showed b/l pleural effusions, and ER has ordered thoracentesis, will follow up, patient will be seen by her legal arbitrator, will have dialysis. upon arrival to ER patient hgb was low and patient was given 1 unit PRBD, there is no complaints of any bleeding, most likely 2/2 to ESRD and possible cause of her shortness of breatth, will follow up and monitor, will have PT/OT evaluate the patient and further recommendation to follow. Review of Systems Review of Systems: A 10 system review of systems was completed on the patient and is negative except for what is stated in the HPI. Nursing and ancillary documentation was reviewed. [facility] Past Medical History Medical History Hypertensive cardiomegaly Hyperparathyroidism due to ESRD on dialysis End-stage renal disease on hemodialysis Tuesday. Dialysis managed by Dr. Joshua Motley Hyperlipidemia Chronic anemia History of blood transfusion. COPD with emphysema Peripheral arterial disease Combined systolic and diastolic congestive heart failure Echocardiogram on 09/10/2020 EF of 20 to 25%, grade 1 diastolic dysfunction, reduced RV systolic function. 12/2020 echo EF 40-46% with segmental wall motion abnormalities Gastric AVM Cardiomyopathy Presumed ischemic with moderately sized moderately severe reversible defect and small mild non reversible infarct on Lexiscan stress on 09/12/2020. Hypertension Surgical History Surgical History Surgically constructed arteriovenous fistula Left upper arm History of colonoscopy History of colon polyps, internal hemorrhoids, and diverticulosis. History of esophagogastroduodenoscopy History of gastric erosions, gastric polyps, and duodenal AVMs. History of revascularization procedure of lower extremity (10/2019) Bilateral lower extremity stents per Dr. Carrillo. History of vascular surgery (06/12/13) Aorto bi-iliac bypass graft per Dr. Carrillo. Family History Family History Mother Alzheimer disease Father Emphysema of lung Social History Social History Social History: Surrogate medical decision maker: Dhaval Allen, hay. Code status: Full code. Smoking packs per day: 0.5 Smoking cigarettes per day: 10.0 Years smoked: 53 Smoking pack-years: 26.50 Smoking status: Former smoker Tobacco type: cigarettes Second hand tobacco smoke exposure: Yes Smoking end date: 09/20/74 Alcohol intake: never Substance use: never Substance use type: does not use Do You Feel Safe in your Home?: Yes Lack of Transportation: No Lack of Food: Never True Current Housing: I Have Housing Concerned About Future Housing: No Difficulty Paying Gas/Electric Bills: No Difficulty Paying for Meds: No Currently Unemployed: No Education: Associate Degree Difficulty w/ Childcare or Family Care: No Additional living arrangements comments: . Lives with her only son in [place]. Additional occupation/education comments: Retired from the [employer]. Spiritual care concerns: No Meds Home Medications and Allergies Home Medications ?Medication ?Instructions ?Recorded ?Confirmed ?Type aspirin 81 mg tablet 81 mg PO DAILY 05/10/20 01/24/25 History isosorbide mononitrate 30 mg 30 mg PO DAILY #30 tabs 09/20/20 01/24/25 Rx tablet,extended release 24 hr melatonin 3 mg tablet 3 mg PO HS PRN Sleep 12/08/22 01/24/25 History omeprazole 40 mg capsule,delayed 40 mg PO DAILY 12/08/22 01/24/25 History release oxybutynin chloride 5 mg tablet 5 mg PO HS 12/08/22 01/24/25 History trazodone 50 mg tablet 50 mg PO HS 12/08/22 01/24/25 History ergocalciferol (vitamin D2) 1,250 50,000 unit PO BID 10/11/23 01/24/25 History mcg (50,000 unit) capsule atorvastatin 80 mg tablet 80 mg PO HS 03/10/24 01/24/25 History carvedilol 25 mg tablet 25 mg PO BIDWM 03/10/24 01/24/25 History lisinopril 40 mg tablet 40 mg PO DAILY 08/21/24 01/24/25 History nifedipine 60 mg tablet,extended 60 mg PO Q12H 08/21/24 01/24/25 History release Allergies Allergy/AdvReac Type Severity Reaction Status Date / Time Penicillins Allergy Unknown Unknown,Ham Verified 01/24/25 13:12 h Vital Signs Vital Signs - 24 hr 01/23/25 20:07 01/23/25 21:24 01/23/25 21:26 Temperature 36.5 C Pulse Rate 87 75 Respiratory Rate 20 23 H Blood Pressure 113/46 L 126/49 L Pulse Oximetry 97 96 85 L Oxygen Delivery Room Air Oxygen Flow Rate 01/23/25 21:30 01/23/25 21:32 01/23/25 21:47 Temperature Pulse Rate 77 75 74 Respiratory Rate 26 H 20 30 H Blood Pressure 136/45 L 135/54 L Pulse Oximetry 93 95 Oxygen Delivery Oxygen Flow Rate 01/23/25 21:48 01/23/25 21:52 01/23/25 22:04 Temperature Pulse Rate 81 75 81 Respiratory Rate 21 H 22 H 20 Blood Pressure 135/54 L Pulse Oximetry 97 93 94 Oxygen Delivery Room Air Oxygen Flow Rate 01/23/25 22:30 01/23/25 22:32 01/23/25 22:55 Temperature Pulse Rate 78 80 Respiratory Rate 24 H 20 22 H Blood Pressure 143/51 H Pulse Oximetry 93 93 96 Oxygen Delivery Oxygen Flow Rate 01/23/25 23:09 01/23/25 23:18 01/23/25 23:30 Temperature Pulse Rate 86 88 86 Respiratory Rate 23 H 21 H 22 H Blood Pressure Pulse Oximetry 88 L 94 96 Oxygen Delivery Oxygen Flow Rate 01/23/25 23:31 01/23/25 23:45 01/23/25 23:46 Temperature Pulse Rate 87 86 Respiratory Rate 18 12 19 Blood Pressure 128/58 L 133/54 L Pulse Oximetry 93 92 Oxygen Delivery Oxygen Flow Rate 01/24/25 00:00 01/24/25 00:18 01/24/25 00:45 Temperature Pulse Rate 84 84 83 Respiratory Rate 21 H 24 H 23 H Blood Pressure Pulse Oximetry 93 93 Oxygen Delivery Oxygen Flow Rate 01/24/25 01:00 01/24/25 01:10 01/24/25 01:15 Temperature Pulse Rate 78 80 80 Respiratory Rate 17 18 15 Blood Pressure 144/57 H Pulse Oximetry 89 L 99 100 Oxygen Delivery Oxygen Flow Rate 01/24/25 01:16 01/24/25 01:30 01/24/25 01:31 Temperature Pulse Rate 77 81 81 Respiratory Rate 16 18 16 Blood Pressure 152/52 H 149/52 H Pulse Oximetry 100 100 100 Oxygen Delivery Oxygen Flow Rate 01/24/25 01:42 01/24/25 01:42 01/24/25 02:01 Temperature Pulse Rate 81 Respiratory Rate Blood Pressure Pulse Oximetry 86 L 100 Oxygen Delivery Room Air Nasal Cannula Oxygen Flow Rate 2 01/24/25 02:18 01/24/25 02:39 01/24/25 02:45 Temperature Pulse Rate 81 80 83 Respiratory Rate 22 H 17 20 Blood Pressure 164/79 H 170/75 H Pulse Oximetry 98 97 99 Oxygen Delivery Oxygen Flow Rate 01/24/25 03:00 01/24/25 03:30 01/24/25 04:00 Temperature Pulse Rate 82 82 85 Respiratory Rate 20 16 18 Blood Pressure 165/64 H 167/63 H 170/61 H Pulse Oximetry 100 99 98 Oxygen Delivery Oxygen Flow Rate 01/24/25 04:44 01/24/25 04:44 01/24/25 05:02 Temperature 36.8 C 36.8 C Pulse Rate 83 82 83 Respiratory Rate 17 15 20 Blood Pressure 162/60 H 162/60 H 177/55 H Pulse Oximetry 99 98 99 Oxygen Delivery Oxygen Flow Rate 01/24/25 05:40 01/24/25 05:45 01/24/25 06:00 Temperature Pulse Rate 79 80 81 Respiratory Rate 18 18 16 Blood Pressure Pulse Oximetry Oxygen Delivery Oxygen Flow Rate 01/24/25 06:01 01/24/25 06:02 01/24/25 06:45 Temperature 36.8 C Pulse Rate 81 83 80 Respiratory Rate 22 H 21 H 16 Blood Pressure 194/63 H 194/63 H 194/63 H Pulse Oximetry 98 98 Oxygen Delivery Oxygen Flow Rate 01/24/25 07:15 01/24/25 07:30 01/24/25 08:00 Temperature Pulse Rate 81 82 80 Respiratory Rate 18 18 17 Blood Pressure Pulse Oximetry 99 100 100 Oxygen Delivery Oxygen Flow Rate 01/24/25 08:01 01/24/25 09:01 01/24/25 10:01 Temperature Pulse Rate 80 82 80 Respiratory Rate 16 15 18 Blood Pressure 210/77 H 229/68 H 219/76 H Pulse Oximetry 98 Oxygen Delivery Oxygen Flow Rate 01/24/25 10:45 01/24/25 13:30 01/24/25 13:30 Temperature 36.8 C Pulse Rate 78 81 Respiratory Rate 17 18 Blood Pressure 215/71 H Pulse Oximetry 99 95 Oxygen Delivery Oxygen Flow Rate 2 01/24/25 13:38 01/24/25 14:00 01/24/25 14:15 Temperature Pulse Rate 83 87 86 Respiratory Rate Blood Pressure 216/72 H 225/80 H 230/80 H Pulse Oximetry Oxygen Delivery Oxygen Flow Rate Exam Narrative: Patient is comfortable, NAD HEENT: eyes are clear and none icteric LUNGS:CTA HEART: RR S1S2 ABD: BS+, Soft and nontender Lower extremities: no edema SKIN: nonjaundiced Neuro: grossly intact. H&P: Results Labs Labs: Short CBC 01/24/25 01/24/25 01/24/25 Range/Units 00:54 06:26 06:28 WBC 6.0 (4.5-10.0) K/mm3 Hgb 6.4 L* 8.4 L (12.0-15.0) g/dL Hct 18.5 L* 24.9 L (37.0-47.0) % Plt Count 115 L 125 L (150-375) k/mm3 BMP 01/24/25 00:54 Sodium 132 L Potassium 3.7 Chloride 96 L Carbon Dioxide 29 BUN 63 H D Creatinine 4.12 H Glucose 79 Calcium 8.1 L Cardiac Enzymes 01/24/25 Range/Units 00:54 Troponin I 0.049 H* (0.000-0.034) ng/mL Liver Function 01/24/25 Range/Units 00:54 Total Bilirubin 0.2 (0.2-1.3) mg/dL AST 24 (14-36) U/L ALT 9 (6-35) U/L Alkaline Phosphatase 80 (38-126) U/L Albumin 3.2 L (3.5-5.1) g/dL Assessment and Plan Assessment and plan (1) Hypertension: Code(s): I10 - Essential (primary) hypertension Status: Chronic (2) ESRD on hemodialysis: Code(s): N18.6 - End stage renal disease; Z99.2 - Dependence on renal dialysis Status: Acute (3) ESRD (end stage renal disease) on dialysis: Code(s): N18.6 - End stage renal disease; Z99.2 - Dependence on renal dialysis Status: Acute (4) Volume overload: Code(s): E87.70 - Fluid overload, unspecified Status: Acute (5) Anemia in ESRD (end-stage renal disease): Code(s): N18.6 - End stage renal disease; D63.1 - Anemia in chronic kidney disease Status: Acute Plan Patient did have dialysis on Tuesday as scheduled and on Tuesday evening developed shortness of breath she denies any associate symptoms of cough or URI symptoms, to further evaluate patient had Ct scan of the chest which showed b/l pleural effusions, and ER has ordered thoracentesis, will follow up, patient will be seen by her legal arbitrator, will have dialysis. upon arrival to ER patient hgb was low and patient was given 1 unit PRBD, there is no complaints of any bleeding, most likely 2/2 to ESRD and possible cause of her shortness of breatth, will follow up and monitor, will have PT/OT evaluate the patient and further recommendation to follow. Quality VTE Prophylaxis VTE prophylaxis: mechanical ordered Hospitalist MIPS Advance Care Plan The patient's Advanced Care plan is not present because:: Patient doesn't want to name surrogate or provider advance care plan Medication Reconciliation The patient is not eligible for med reconciliation; the patient is in a emergent medical situation where delaying treatment would jeopardize the patients health.: Yes
[2025-01-24 14:34] LABS: Hepatitis B Surface Anti Res Negative
[2025-01-24] MEDS: EPOETIN ALFA-EPBX 10,000 UNITS/ML VIAL 10000 UNITS IV PUSH (15:24)
[2025-01-24] MEDS: SODIUM CHLORIDE 0.9% IV 1,000 ML 999 ML IV CONT (15:26)
[2025-01-24] MEDS: ONDANSETRON INJ 4 MG/2 ML VIAL IV PUSH (16:03)
[2025-01-24] MEDS: PANTOPRAZOLE 40 MG TABLET PO (20:23)
[2025-01-24] MEDS: ATORVASTATIN 40 MG TABLET 80 MG PO (20:23)
[2025-01-24] MEDS: ACETAMINOPHEN 325 MG TABLET 650 MG PO (20:23)
[2025-01-24 23:48] LABS: Hematocrit 21.6 % (37.0-47.0); Hemoglobin 7.5 g/dL (12.0-15.0)
[2025-01-25] VITALS (16 sets, daily range): BP systolic 100–184; BP diastolic 34–64; PULSE 51–95; RESP 16–18; TEMP 36–37.3; O2SAT 94–100; BMI 13.4
--- NOTE | 2025-01-25 00:20 | PC.NURSE ---
Called Valerie Katz [facility] regarding pts BP 184/64 and HGB result of 7.5 New orders for Q6H H&H and 12.5 mg Coreg PO NOW.
[2025-01-25 07:43] LABS: Hematocrit 19.6 % (37.0-47.0); Hemoglobin 6.6 g/dL (12.0-15.0)
--- NOTE | 2025-01-25 08:36 | PC.NURSE ---
Critical lab result called to provider. Orders received.
[2025-01-25] MEDS: HYDROcodone/acetaminophen (*CRX) 5-325 MG TABLET 1 TAB PO (09:28)
[2025-01-25] MEDS: SODIUM CHLORIDE 0.9% IV 250 ML 30 ML IV CONT (09:28)
[2025-01-25] MEDS: PANTOPRAZOLE 40 MG TABLET PO ×2 (09:29→20:28)
[2025-01-25] MEDS: ISOSORBIDE MONONITRATE 30 MG TAB.ER.24H PO (09:29)
[2025-01-25] MEDS: ASPIRIN 81 MG ENTERIC TABLET PO (09:29)
[2025-01-25 10:35] LABS: MRSA (PCR) NOT DETECTED (NOT DETECTE)
--- NOTE | 2025-01-25 12:39 | P.PNNP_ITS ---
Progress Note: A&P Assessment and Plan (1) End stage renal disease: Code(s): N18.6 - End stage renal disease Status: Chronic Assessment and Plan: * HD tomorrow * continue T/T/S dialysis schedule while hospitalized * follow electrolytes, volume status, and clearance (2) Acute hypoxic respiratory failure: Code(s): J96.01 - Acute respiratory failure with hypoxia Status: Acute Assessment and Plan: * slow improvement * suspect multifactorial: * hypertensive urgency * pleural effusions * anemia * COPD * CHF * supplemental oxygen as needed * continue therapy as outlined (3) Anemia: Qualifiers: Anemia type: unspecified type Qualified Code(s): D64.9 - Anemia, unspecified Code(s): D64.9 - Anemia, unspecified Status: Chronic Assessment and Plan: * partly related to ESRD * anemia studies noted * adequate iron stores * Epogen with HD * PRBC transfusion per protocol * 1 unit on admission (01/24) * 1 unit today (01/25) * follow trend of H/H (4) Volume overload: Code(s): E87.70 - Fluid overload, unspecified Status: Acute Assessment and Plan: * clinically better * as noted by presentation: * fluid/pleural effusiuobs on CXR * hypoxia * s/p right thoracentesis today (01/24) * 1000cc removed * last Echo (10/02/24) noted: * left ventricular ejection fraction is visually estimated to be 60 - 65% * severe concentric left ventricular hypertrophy * right ventricle is normal in size and systolic function * no aortic regurgitation * mild mitral regurgitation * mild tricuspid regurgitation * continue fluid removal with HD as tolerated in an effort to achieve euvolemia * follow volume status (5) Hypertension: Code(s): I10 - Essential (primary) hypertension Status: Chronic Assessment and Plan: * significant improvement * poor BP control at baseline * extremely elevated on admission * restarted on home medications * PRN IV medications if needed * follow trend of hemodynamics (6) COPD (chronic obstructive pulmonary disease): Qualifiers: COPD type: unspecified COPD Qualified Code(s): J44.9 - Chronic obstructive pulmonary disease, unspecified Code(s): J44.9 - Chronic obstructive pulmonary disease, unspecified Status: Chronic Assessment and Plan: * use nebulizer treatments PRN * supplemental oxygen - wean as tolerated Will continue to follow. Subjective Date/time seen: 01/25/25 12:39 Interval history: Follow-up for end stage renal disease on hemodialysis. Dialysis treatment ended about an hour early as patient inadvertently dislodged her dialysis needles from her AV access due to pain; PRBC transfusion today again due to low H/H by AM labs; respiratory status/breathing seems to be doing better at the time of my visit. Exam Narrative: General: thin and somewhat frail female in NAD Heart: normal S1 and S2; no rub Lungs: coarse breath sounds; decreased at bases Abdomen: soft, nontender, nondistended, positive bowel sounds Extremities: no cyanosis or clubbing; no edema Skin: warm and dry Objective Data Vital Signs Vital Signs: Vital Signs Temp Pulse Resp BP Pulse Ox O2 Del Method O2 Flow Rate 01/25/25 12:31 96.8 F L 55 L 16 107/35 L 100 01/25/25 12:00 56 L 01/25/25 11:31 98 F 58 L 18 108/34 L 96 01/25/25 11:16 98.3 F 60 18 114/40 L 100 01/25/25 11:09 98.3 F 61 18 114/40 L 100 01/25/25 08:00 56 L 01/25/25 08:00 99 Nasal Cannula 2 01/25/25 06:00 99.2 F 75 18 128/50 L 100 01/25/25 04:00 77 01/25/25 00:50 95 01/25/25 00:43 184/64 H 01/25/25 00:35 95 16 184/64 H 100 01/25/25 00:00 92 01/24/25 20:00 84 01/24/25 20:00 95 Nasal Cannula 2 Intake/Output Intake/Output: Intake & Output 01/22/25 01/23/25 01/24/25 01/25/25 23:59 23:59 23:59 23:59 Intake Total 550 1580 Output Total 1779 150 Balance -1229 1430 Meds/Results Medications: Active Medications Generic Name Dose Route Start Last Admin Trade Name Freq PRN Reason Stop Dose Admin Acetaminophen 650 mg 01/24/25 02:28 01/24/25 20:23 Acetaminophen 325 Mg Tablet PO 650 mg Q4H PRN Administration Mild Pain (1-3) or Fever Hydrocodone Bitart/Acetaminophen 1 tab 01/24/25 15:33 01/25/25 09:28 Hydrocodone/Acetaminophen (*Crx) 5-325 Mg Tablet PO 1 tab Q8H PRN Administration Pain Rated 4-6 Aspirin 81 mg 01/24/25 09:00 01/25/25 09:29 Aspirin 81 Mg Enteric Tablet PO 81 mg DAILY BRANDON Administration Atorvastatin Calcium 80 mg 01/24/25 21:00 01/24/25 20:23 Atorvastatin 40 Mg Tablet PO 80 mg HS BRANDON Administration Carvedilol 25 mg 01/24/25 08:00 01/25/25 17:32 Carvedilol 25 Mg Tablet PO Not Given BIDWM BRANDON Ergocalciferol 1,250 mcg 01/24/25 17:00 Ergocalciferol (Vitamin D2) 1,250 Mcg (50,000 Units) Capsule PO BID BRANDON Isosorbide Mononitrate 30 mg 01/24/25 09:00 01/25/25 09:29 Isosorbide Mononitrate 30 Mg Tab.Er.24h PO 30 mg DAILY BRANDON Administration Lidocaine/Prilocaine 1 each 01/24/25 12:56 Lidocaine/Prilocaine Cream 2.5-2.5% Tube TOPICAL WITH DIALYSIS PRN for dialysis Protocol Lisinopril 40 mg 01/24/25 09:00 01/25/25 09:29 Lisinopril 20 Mg Tablet PO 40 mg DAILY BRANDON Administration Melatonin 3 mg 01/24/25 09:23 Melatonin 3 Mg Tablet PO HS PRN Sleep Miscellaneous Information 0 each 01/24/25 00:01 01/25/25 00:08 Please Clarify Vitamin D Dose/Frequency- This Dose Is Given Once Weekly. XX 02/23/25 00:00 Not Given CLARIFY BRANDON Nifedipine 60 mg 01/24/25 09:00 01/25/25 09:29 Nifedipine 30 Mg Tab.Er.24 PO 60 mg Q12HR BRANDON Administration Ondansetron HCl 4 mg 01/24/25 15:33 01/24/25 16:03 Ondansetron Inj 4 Mg/2 Ml Vial IV PUSH 4 mg Q6H PRN Administration Nausea And Vomiting Oxybutynin Chloride 5 mg 01/24/25 21:00 01/24/25 20:23 Oxybutynin Chloride 5 Mg Tablet PO 5 mg HS BRANDON Administration Pantoprazole Sodium 40 mg 01/24/25 09:00 01/25/25 09:29 Pantoprazole 40 Mg Tablet PO 40 mg Q12HR BRANDON Administration Trazodone HCl 50 mg 01/24/25 21:00 01/24/25 20:24 Trazodone Hcl 50 Mg Tablet PO 50 mg HS BRANDON Administration Radiology Results: ITS Impressions Chest CT 01/24/25 08:11 IMPRESSION: 1. Moderate-sized right and small left pleural effusions. 2. Moderate emphysema. Chest X-Ray 01/24/25 12:39 IMPRESSION: 1. Very small bilateral pleural effusions decreased on the right post right thoracentesis. No pneumothorax. 2. Hyperexpansion lungs with persistent mild diffuse increased initial pattern consistent with emphysema superimposed mild pulmonary edema. 3. Cardiomegaly. Thoracentesis Ultrasound 01/24/25 13:02 IMPRESSION: 1. Successful ultrasound-guided thoracentesis yielding 1000 mL of clear rashad- colored fluid. Abdomen X-Ray 01/24/25 16:39 Impression: 1. No acute abnormality. Labs Labs: Laboratory Tests 01/24/25 01/25/25 00:54 07:22 Hgb 6.6 L* Hct 19.6 L* Sodium 132 L Potassium 3.7 Chloride 96 L Carbon Dioxide 29 BUN 63 H D Creatinine 4.12 H Estimated GFR 10 L Glucose 79 Calcium 8.1 L Total Bilirubin 0.2 AST 24 ALT 9 Alkaline Phosphatase 80 Total Protein 6.3 Albumin 3.2 L Microbiology 01/24/25 12:10 Pleural Fluid AFB Specimen Processing - Final 01/24/25 12:10 Pleural Fluid Acid Fast Bacilli Smear - Final 01/24/25 12:10 Pleural Fluid Acid Fast Bacilli Culture - Preliminary
[2025-01-25 13:09] LABS: Albumin, Body Fluid 1.5 g/dL (Not Estab.); Glucose, Body Fluid 75 mg/dL (.)
--- NOTE | 2025-01-25 15:34 | P.PNIM_ITS ---
Progress Note: A&P Assessment and Plan (1) Hypertension: Code(s): I10 - Essential (primary) hypertension Status: Chronic (2) ESRD on hemodialysis: Code(s): N18.6 - End stage renal disease; Z99.2 - Dependence on renal dialysis Status: Acute (3) ESRD (end stage renal disease) on dialysis: Code(s): N18.6 - End stage renal disease; Z99.2 - Dependence on renal dialysis Status: Acute (4) Volume overload: Code(s): E87.70 - Fluid overload, unspecified Status: Acute (5) Anemia in ESRD (end-stage renal disease): Code(s): N18.6 - End stage renal disease; D63.1 - Anemia in chronic kidney disease Status: Acute Plan 79-year-old female who presented to the ED with shortness of breath. Associated generalized weakness. On ED evaluation her vitals were stable. Laboratory studies showed WBC of 6 hemoglobin of 6.4 platelet count a 115. Chem panel showed sodium 132 potassium 3.7 chloride 96 bicarbonate 29 BUN 63 creatinine 4.1 blood glucose of 79. Troponin was 0.049 LFTs were normal. Patient received 1 unit of packed red blood cells with improvement in her hemoglobin. She has underlying end-stage renal disease on dialysis Tuesday. CT scan of the chest showed bilateral pleural effusion. She underwent thoracentesis on 01/24/2025 with removal of 1000 mL of clear rashda colored fluid Nephrology has been consulted for inpatient hemodialysis and underwent hemodialysis 01/24/2025. Hemoglobin drops down to 6.6 again. Transfuse 1 unit of PRBC. Already on Protonix b.i.d. No signs of bleeding noted. 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 Patient feels better. Getting transfusion today. No dark stool. No Abdominal pain. Breathing has improved. Review of Systems Review of Systems: All systems reviewed & are unremarkable except as noted in HPI and below Exam Narrative: Patient is comfortable, NAD HEENT: eyes are clear and none icteric LUNGS:CTA HEART: RR S1S2 ABD: BS+, Soft and nontender Lower extremities: no edema SKIN: nonjaundiced Neuro: grossly intact. Objective Data Vital Signs Vital Signs: Vital Signs - 24 hr 01/24/25 15:39 01/24/25 16:09 01/24/25 16:33 Temperature 98.2 F Pulse Rate 91 87 Respiratory Rate 22 H Blood Pressure 126/84 103/81 Pulse Oximetry 94 94 Oxygen Delivery Nasal Cannula Oxygen Flow Rate 2 01/24/25 17:30 01/24/25 18:00 01/24/25 19:47 Temperature 96.8 F L 97.1 F L Pulse Rate 82 82 87 Respiratory Rate 18 16 Blood Pressure 123/40 L 170/60 H Pulse Oximetry 100 100 Oxygen Delivery Oxygen Flow Rate 01/24/25 20:00 01/24/25 20:00 01/25/25 00:00 Temperature Pulse Rate 84 92 Respiratory Rate Blood Pressure Pulse Oximetry 95 Oxygen Delivery Nasal Cannula Oxygen Flow Rate 2 01/25/25 00:35 01/25/25 00:43 01/25/25 00:50 Temperature Pulse Rate 95 95 Respiratory Rate 16 Blood Pressure 184/64 H 184/64 H Pulse Oximetry 100 Oxygen Delivery Oxygen Flow Rate 01/25/25 04:00 01/25/25 06:00 01/25/25 08:00 Temperature 99.2 F Pulse Rate 77 75 Respiratory Rate 18 Blood Pressure 128/50 L Pulse Oximetry 100 99 Oxygen Delivery Nasal Cannula Oxygen Flow Rate 2 01/25/25 08:00 01/25/25 11:09 01/25/25 11:16 Temperature 98.3 F 98.3 F Pulse Rate 56 L 61 60 Respiratory Rate 18 18 Blood Pressure 114/40 L 114/40 L Pulse Oximetry 100 100 Oxygen Delivery Oxygen Flow Rate 01/25/25 11:31 01/25/25 12:31 01/25/25 12:31 Temperature 98 F 98.2 F 96.8 F L Pulse Rate 58 L 56 L 55 L Respiratory Rate 18 18 16 Blood Pressure 108/34 L 110/38 L 107/35 L Pulse Oximetry 96 99 100 Oxygen Delivery Oxygen Flow Rate 01/25/25 13:31 01/25/25 14:31 Temperature 97.3 F L 97.0 F L Pulse Rate 58 L 51 L Respiratory Rate 16 16 Blood Pressure 109/35 L 100/43 L Pulse Oximetry 100 100 Oxygen Delivery Oxygen Flow Rate Intake/Output Intake/Output: Intake & Output 01/22/25 01/23/25 01/24/25 01/25/25 23:59 23:59 23:59 23:59 Intake Total 550 1180 Output Total 1779 150 Balance -1229 1030 Meds/Results Medications: Active Medications Generic Name Dose Route Start Last Admin Trade Name Freq PRN Reason Stop Dose Admin Acetaminophen 650 mg 01/24/25 02:28 01/24/25 20:23 Acetaminophen 325 Mg Tablet PO 650 mg Q4H PRN Administration Mild Pain (1-3) or Fever Hydrocodone Bitart/Acetaminophen 1 tab 01/24/25 15:33 01/25/25 09:28 Hydrocodone/Acetaminophen (*Crx) 5-325 Mg Tablet PO 1 tab Q8H PRN Administration Pain Rated 4-6 Aspirin 81 mg 01/24/25 09:00 01/25/25 09:29 Aspirin 81 Mg Enteric Tablet PO 81 mg DAILY BRANDON Administration Atorvastatin Calcium 80 mg 01/24/25 21:00 01/24/25 20:23 Atorvastatin 40 Mg Tablet PO 80 mg HS BRANDON Administration Carvedilol 25 mg 01/24/25 08:00 01/25/25 09:30 Carvedilol 25 Mg Tablet PO 25 mg BIDWM BRANDON Administration Ergocalciferol 1,250 mcg 01/24/25 17:00 Ergocalciferol (Vitamin D2) 1,250 Mcg (50,000 Units) Capsule PO BID BRANDON Sodium Chloride 250 mls @ 30 mls/hr 01/25/25 07:56 01/25/25 09:28 Normal Saline Iv IV CONT 01/25/25 16:15 30 mls/hr .Q8H20M STA Administration Isosorbide Mononitrate 30 mg 01/24/25 09:00 01/25/25 09:29 Isosorbide Mononitrate 30 Mg Tab.Er.24h PO 30 mg DAILY BRANDON Administration Lidocaine/Prilocaine 1 each 01/24/25 12:56 Lidocaine/Prilocaine Cream 2.5-2.5% Tube TOPICAL WITH DIALYSIS PRN for dialysis Protocol Lisinopril 40 mg 01/24/25 09:00 01/25/25 09:29 Lisinopril 20 Mg Tablet PO 40 mg DAILY BRANDON Administration Melatonin 3 mg 01/24/25 09:23 Melatonin 3 Mg Tablet PO HS PRN Sleep Miscellaneous Information 0 each 01/24/25 00:01 01/25/25 00:08 Please Clarify Vitamin D Dose/Frequency- This Dose Is Given Once Weekly. XX 02/23/25 00:00 Not Given CLARIFY BRANDON Nifedipine 60 mg 01/24/25 09:00 01/25/25 09:29 Nifedipine 30 Mg Tab.Er.24 PO 60 mg Q12HR BRANDON Administration Ondansetron HCl 4 mg 01/24/25 15:33 01/24/25 16:03 Ondansetron Inj 4 Mg/2 Ml Vial IV PUSH 4 mg Q6H PRN Administration Nausea And Vomiting Oxybutynin Chloride 5 mg 01/24/25 21:00 01/24/25 20:23 Oxybutynin Chloride 5 Mg Tablet PO 5 mg HS BRANDON Administration Pantoprazole Sodium 40 mg 01/24/25 09:00 01/25/25 09:29 Pantoprazole 40 Mg Tablet PO 40 mg Q12HR BRANDON Administration Trazodone HCl 50 mg 01/24/25 21:00 01/24/25 20:24 Trazodone Hcl 50 Mg Tablet PO 50 mg HS BRANDON Administration Radiology Results: ITS Impressions Chest CT 01/24/25 08:11 IMPRESSION: 1. Moderate-sized right and small left pleural effusions. 2. Moderate emphysema. Chest X-Ray 01/24/25 12:39 IMPRESSION: 1. Very small bilateral pleural effusions decreased on the right post right th oracentesis. No pneumothorax. 2. Hyperexpansion lungs with persistent mild diffuse increased initial pattern consistent with emphysema superimposed mild pulmonary edema. 3. Cardiomegaly. Thoracentesis Ultrasound 01/24/25 13:02 IMPRESSION: 1. Successful ultrasound-guided thoracentesis yielding 1000 mL of clear rashad- colored fluid. Abdomen X-Ray 01/24/25 16:39 Impression: 1. No acute abnormality. Labs Labs: Laboratory Results - last 24 hr 01/24/25 01/24/25 01/24/25 01:59 12:10 23:41 Hgb 7.5 L Hct 21.6 L Fluid Glucose 75 Fluid Total Protein 2.4 Fluid Albumin 1.5 Fluid Amylase 34 Nasal MRSA (PCR) Blood Type A Positive Antibody Screen Negative Crossmatch See Detail 01/25/25 01/25/25 07:22 08:10 Hgb 6.6 L* Hct 19.6 L* Fluid Glucose Fluid Total Protein Fluid Albumin Fluid Amylase Nasal MRSA (PCR) Not detected Blood Type Antibody Screen Crossmatch
[2025-01-25 17:34] LABS: Hematocrit 26.0 % (37.0-47.0); Hemoglobin 9.0 g/dL (12.0-15.0)
[2025-01-25 17:39] LABS: Immature Reticulocyte Fraction 22.5 % (3.0-15.9); Reticulocyte Hemoglobin Conten 28.4 pg (28.2-36.6); Reticulocytes Absolute 0.10 10^6/uL (0.02-0.10)
[2025-01-25 18:18] LABS: Iron 46 ug/dL (37-170)
[2025-01-25 18:27] LABS: Percent Iron Saturation 25 % (20-50)
[2025-01-25 18:49] LABS: Vitamin B12 834.0 pg/mL (239-931)
[2025-01-25] MEDS: ATORVASTATIN 40 MG TABLET 80 MG PO (20:27)
[2025-01-25 20:32] LABS: Ferritin 1120.00 ng/mL (11.1-264)
[2025-01-25 23:30] LABS: Hematocrit 23.9 % (37.0-47.0); Hemoglobin 8.5 g/dL (12.0-15.0)
[2025-01-26] VITALS (29 sets, daily range): BP systolic 79–121; BP diastolic 36–54; PULSE 50–666; RESP 16; TEMP 36.3–37; O2SAT 96–100
[2025-01-26 06:38] LABS: Hematocrit 24.5 % (37.0-47.0); Hemoglobin 8.5 g/dL (12.0-15.0)
[2025-01-26] MEDS: LIDOCAINE/PRILOCAINE CREAM 2.5-2.5% TUBE 1 EACH TOPICAL (07:51)
[2025-01-26 08:55] LABS: Albumin Level 2.9 g/dL (3.5-5.1); Blood Urea Nitrogen 54 mg/dL (7-17); Calcium 7.2 mg/dL (8.4-10.2); Carbon Dioxide 30 mmol/L (22-30); Chloride 93 mmol/L (98-107); Estimated CRCL calculation 5 ml/min; Estimated Glomerular Filt Rate 9; Glucose 122 mg/dL (65-110); Potassium 4.5 mmol/L (3.4-5.0)
[2025-01-26 09:04] LABS: Anion Gap 7 mmol/L (4-12); Sodium 130 mmol/L (137-145)
[2025-01-26] MEDS: EPOETIN ALFA-EPBX 20,000 UNITS/ML VIAL 20000 UNITS IV PUSH (09:42)
--- NOTE | 2025-01-26 10:01 | P.PNNP_ITS ---
Progress Note: A&P Assessment and Plan (1) End stage renal disease: Code(s): N18.6 - End stage renal disease Status: Chronic Assessment and Plan: * HD today * continue T/T/S dialysis schedule while hospitalized * follow electrolytes, volume status, and clearance (2) Acute hypoxic respiratory failure: Code(s): J96.01 - Acute respiratory failure with hypoxia Status: Acute Assessment and Plan: * slow improvement * suspect multifactorial: * hypertensive urgency * pleural effusions * anemia * COPD * CHF * supplemental oxygen as needed * continue therapy as outlined (3) Anemia: Qualifiers: Anemia type: unspecified type Qualified Code(s): D64.9 - Anemia, unspecified Code(s): D64.9 - Anemia, unspecified Status: Chronic Assessment and Plan: * partly related to ESRD * anemia studies noted * adequate iron stores * Epogen with HD * PRBC transfusion per protocol * 1 unit on admission (01/24) * 1 unit on 01/25 * r/o GI loss * follow trend of H/H (4) Volume overload: Code(s): E87.70 - Fluid overload, unspecified Status: Acute Assessment and Plan: * clinically better * as noted by presentation: * fluid/pleural effusiuobs on CXR * hypoxia * s/p right thoracentesis today (01/24) * 1000cc removed * last Echo (10/02/24) noted: * left ventricular ejection fraction is visually estimated to be 60 - 65% * severe concentric left ventricular hypertrophy * right ventricle is normal in size and systolic function * no aortic regurgitation * mild mitral regurgitation * mild tricuspid regurgitation * continue fluid removal with HD as tolerated in an effort to achieve euvolemia * follow volume status (5) Hypertension: Code(s): I10 - Essential (primary) hypertension Status: Chronic Assessment and Plan: * significant improvement * poor BP control at baseline * extremely elevated on admission * restarted on home medications * PRN IV medications if needed * follow trend of hemodynamics (6) COPD (chronic obstructive pulmonary disease): Qualifiers: COPD type: unspecified COPD Qualified Code(s): J44.9 - Chronic obstructive pulmonary disease, unspecified Code(s): J44.9 - Chronic obstructive pulmonary disease, unspecified Status: Chronic Assessment and Plan: * use nebulizer treatments PRN * supplemental oxygen - wean as tolerated Will continue to follow. L Subjective Date/time seen: 01/26/25 10:01 Interval history: Follow-up for end stage renal disease on hemodialysis. Tolerating dialysis treatment at the time of my visit (seen on HD at 9:50am) although relative hypotension noted limiting fluid removal; tolerated PRBC transfusion yesterday with improvement/appropriate incrementation in H/H; major complaint is that of fatigue/weakness when seen; no other events overnight. Exam 2 Narrative: General: thin and somewhat frail female in NAD Heart: normal S1 and S2; no rub Lungs: coarse breath sounds; decreased at bases Abdomen: soft, nontender, nondistended, positive bowel sounds Extremities: no cyanosis or clubbing; no edema Skin: no rash Objective Data Vital Signs Vital Signs: Vital Signs Temp Pulse Resp BP Pulse Ox O2 Del Method O2 Flow Rate 01/26/25 10:00 55 L 98/42 L 01/26/25 09:45 55 L 93/42 L 01/26/25 09:30 54 L 93/43 L 01/26/25 09:15 54 L 87/40 L 01/26/25 09:00 52 L 90/40 L 01/26/25 08:45 53 L 90/41 L 01/26/25 08:33 50 L 79/38 L 01/26/25 08:20 2 01/26/25 08:20 97.8 F 50 L 16 84/43 L 96 01/26/25 08:00 54 L 01/26/25 04:46 97.8 F 51 L 16 97 01/26/25 04:45 98/42 L 01/26/25 04:00 51 L 01/26/25 00:00 51 L 01/25/25 20:00 54 L 01/25/25 20:00 98.2 F 52 L 18 102/48 L 96 01/25/25 20:00 94 Nasal Cannula 2 01/25/25 16:00 52 L 01/25/25 14:31 97.0 F L 51 L 16 100/43 L 100 Intake/Output Intake/Output: Intake & Output 01/23/25 01/24/25 01/25/25 01/26/25 23:59 23:59 23:59 23:59 Intake Total 550 1580 240 Output Total 3611 786 0128 Balance -1229 1430 -760 Meds/Results Medications: Active Medications Generic Name Dose Route Start Last Admin Trade Name Freq PRN Reason Stop Dose Admin Acetaminophen 650 mg 01/24/25 02:28 01/24/25 20:23 Acetaminophen 325 Mg Tablet PO 650 mg Q4H PRN Administration Mild Pain (1-3) or Fever Hydrocodone Bitart/Acetaminophen 1 tab 01/24/25 15:33 01/25/25 09:28 Hydrocodone/Acetaminophen (*Crx) 5-325 Mg Tablet PO 1 tab Q8H PRN Administration Pain Rated 4-6 Aspirin 81 mg 01/24/25 09:00 01/25/25 09:29 Aspirin 81 Mg Enteric Tablet PO 81 mg DAILY BRANDON Administration Atorvastatin Calcium 80 mg 01/24/25 21:00 01/25/25 20:27 Atorvastatin 40 Mg Tablet PO 80 mg HS BRANDON Administration Carvedilol 25 mg 01/24/25 08:00 01/25/25 17:32 Carvedilol 25 Mg Tablet PO Not Given BIDWM [facility]ENDING [facility] TO [facility] Ergocalciferol 1,250 mcg 01/24/25 17:00 Ergocalciferol (Vitamin D2) 1,250 Mcg (50,000 Units) Capsule PO BID BRANDON Folic Acid 1 mg 01/27/25 09:00 Folic Acid 1 Mg Tablet PO DAILY PENDING SALE TO [facility] Isosorbide Mononitrate 30 mg 01/24/25 09:00 01/25/25 09:29 Isosorbide Mononitrate 30 Mg Tab.Er.24h PO 30 mg DAILY BRANDON Administration Lidocaine/Prilocaine 1 each 01/24/25 12:56 01/26/25 07:51 Lidocaine/Prilocaine Cream 2.5-2.5% Tube TOPICAL 1 each WITH DIALYSIS PRN Administration for dialysis Protocol Lisinopril 40 mg 01/24/25 09:00 01/25/25 09:29 Lisinopril 20 Mg Tablet PO 40 mg DAILY BRANDON Administration Melatonin 3 mg 01/24/25 09:23 Melatonin 3 Mg Tablet PO HS PRN Sleep Miscellaneous Information 0 each 01/24/25 00:01 01/26/25 03:38 Please Clarify Vitamin D Dose/Frequency- This Dose Is Given Once Weekly. XX 02/23/25 00:00 Not Given CLARIFY BRANDON Nifedipine 60 mg 01/24/25 09:00 01/25/25 20:28 Nifedipine 30 Mg Tab.Er.24 PO 60 mg Q12HR BRANDON Administration Ondansetron HCl 4 mg 01/24/25 15:33 01/24/25 16:03 Ondansetron Inj 4 Mg/2 Ml Vial IV PUSH 4 mg Q6H PRN Administration Nausea And Vomiting Oxybutynin Chloride 5 mg 01/24/25 21:00 01/25/25 20:28 Oxybutynin Chloride 5 Mg Tablet PO 5 mg HS BRANDON Administration Pantoprazole Sodium 40 mg 01/24/25 09:00 01/25/25 20:28 Pantoprazole 40 Mg Tablet PO 40 mg Q12HR BRANDON Administration Trazodone HCl 50 mg 01/24/25 21:00 01/25/25 20:28 Trazodone Hcl 50 Mg Tablet PO 50 mg HS BRANDON Administration Radiology Results: ITS Impressions Chest CT 01/24/25 08:11 IMPRESSION: 1. Moderate-sized right and small left pleural effusions. 2. Moderate emphysema. Thoracentesis Ultrasound 01/24/25 13:02 IMPRESSION: 1. Successful ultrasound-guided thoracentesis yielding 1000 mL of clear rashad- colored fluid. Abdomen X-Ray 01/24/25 16:39 Impression: 1. No acute abnormality. Abdomen/Pelvis CT 01/26/25 07:13 IMPRESSION: 1. Small right pleural effusion. 2. Emphysema. 3. Cholelithiasis. Gallbladder wall thickening may be secondary to interstitial edema. Chest X-Ray 01/26/25 09:33 IMPRESSION: 1. No significant change. 2. Possible interstitial pulmonary edema or pneumonitis. 3. Emphysema. 4. Small right pleural effusion. Labs Labs: Laboratory Tests 01/26/25 06:23 01/26/25 06:23 Calcium 7.2 L Phosphorus 5.5 H Albumin 2.9 L Microbiology 01/24/25 12:10 Pleural Fluid AFB Specimen Processing - Final 01/24/25 12:10 Pleural Fluid Acid Fast Bacilli Smear - Final 01/24/25 12:10 Pleural Fluid Acid Fast Bacilli Culture - Preliminary
--- NOTE | 2025-01-26 12:43 | PC.NURSE ---
Pt returned from dialyisis and wants to sleep. Refused meds and lunch.
--- NOTE | 2025-01-26 13:25 | P.PNIM_ITS ---
Progress Note: A&P Assessment and Plan (1) Hypertension: Code(s): I10 - Essential (primary) hypertension Status: Chronic (2) ESRD on hemodialysis: Code(s): N18.6 - End stage renal disease; Z99.2 - Dependence on renal dialysis Status: Acute (3) ESRD (end stage renal disease) on dialysis: Code(s): N18.6 - End stage renal disease; Z99.2 - Dependence on renal dialysis Status: Acute (4) Volume overload: Code(s): E87.70 - Fluid overload, unspecified Status: Acute (5) Anemia in ESRD (end-stage renal disease): Code(s): N18.6 - End stage renal disease; D63.1 - Anemia in chronic kidney disease Status: Acute Plan 79-year-old female who presented to the ED with shortness of breath. Associated generalized weakness. On ED evaluation her vitals were stable. Laboratory studies showed WBC of 6 hemoglobin of 6.4 platelet count a 115. Chem panel showed sodium 132 potassium 3.7 chloride 96 bicarbonate 29 BUN 63 creatinine 4.1 blood glucose of 79. Troponin was 0.049 LFTs were normal. Patient received 1 unit of packed red blood cells with improvement in her hemoglobin. She has underlying end-stage renal disease on dialysis Tuesday. CT scan of the chest showed bilateral pleural effusion. She underwent thoracentesis on 01/24/2025 with removal of 1000 mL of clear rashad colored fluid Nephrology has been consulted for inpatient hemodialysis and underwent hemodialysis 01/24/2025. Hemoglobin drops down to 6.6 again 01/25/2025 status post another transfusion of 1 unit of PRBC. Already on Protonix b.i.d. No signs of bleeding noted. She did have of bleed during dialysis through her dialysis access which could contribute to some anemia. Will continue to monitor for now. 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 Stool occult blood has been ordered pending collection. If test positive will consult GI. Continue on Protonix. Iron profile the obtained is after transfusion so likely unreliable. Will check Solu goal transferrin receptor to rule out iron deficiency anemia. 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 Seen during dialysis. Feels tired. Labs reviewed. No new complaints. Review of Systems Review of Systems: All systems reviewed & are unremarkable except as noted in HPI and below Exam Narrative: Patient is comfortable, NAD HEENT: eyes are clear and none icteric LUNGS:CTA HEART: RR S1S2 ABD: BS+, Soft and nontender Lower extremities: no edema SKIN: nonjaundiced Neuro: grossly intact. Objective Data Vital Signs Vital Signs: Vital Signs - 24 hr 01/25/25 13:31 01/25/25 14:31 01/25/25 16:00 Temperature 97.3 F L 97.0 F L Pulse Rate 58 L 51 L 52 L Respiratory Rate 16 16 Blood Pressure 109/35 L 100/43 L Pulse Oximetry 100 100 Oxygen Delivery Oxygen Flow Rate 01/25/25 20:00 01/25/25 20:00 01/25/25 20:00 Temperature 98.2 F Pulse Rate 52 L 54 L Respiratory Rate 18 Blood Pressure 102/48 L Pulse Oximetry 94 96 Oxygen Delivery Nasal Cannula Oxygen Flow Rate 2 01/26/25 00:00 01/26/25 04:00 01/26/25 04:45 Temperature Pulse Rate 51 L 51 L Respiratory Rate Blood Pressure 98/42 L Pulse Oximetry Oxygen Delivery Oxygen Flow Rate 01/26/25 04:46 01/26/25 08:00 01/26/25 08:20 Temperature 97.8 F 97.8 F Pulse Rate 51 L 54 L 50 L Respiratory Rate 16 16 Blood Pressure 84/43 L Pulse Oximetry 97 96 Oxygen Delivery Oxygen Flow Rate 01/26/25 08:20 01/26/25 08:33 01/26/25 08:45 Temperature Pulse Rate 50 L 53 L Respiratory Rate Blood Pressure 79/38 L 90/41 L Pulse Oximetry Oxygen Delivery Oxygen Flow Rate 2 01/26/25 09:00 01/26/25 09:15 01/26/25 09:30 Temperature Pulse Rate 52 L 54 L 54 L Respiratory Rate Blood Pressure 90/40 L 87/40 L 93/43 L Pulse Oximetry Oxygen Delivery Oxygen Flow Rate 01/26/25 09:45 01/26/25 10:00 01/26/25 10:15 Temperature Pulse Rate 55 L 55 L 57 L Respiratory Rate Blood Pressure 93/42 L 98/42 L 97/47 L Pulse Oximetry Oxygen Delivery Oxygen Flow Rate 01/26/25 10:36 01/26/25 10:45 01/26/25 11:00 Temperature Pulse Rate 60 60 59 L Respiratory Rate Blood Pressure 105/36 L 110/44 L 101/41 L Pulse Oximetry Oxygen Delivery Oxygen Flow Rate 01/26/25 11:15 01/26/25 11:30 01/26/25 11:45 Temperature Pulse Rate 59 L 60 59 L Respiratory Rate Blood Pressure 100/42 L 98/40 L 100/41 L Pulse Oximetry Oxygen Delivery Oxygen Flow Rate 01/26/25 12:00 01/26/25 12:04 01/26/25 12:10 Temperature 97.4 F L Pulse Rate 666 H 67 67 Respiratory Rate 16 Blood Pressure 105/40 L 121/47 L Pulse Oximetry 98 Oxygen Delivery Oxygen Flow Rate 01/26/25 12:33 Temperature Pulse Rate Respiratory Rate Blood Pressure Pulse Oximetry 97 Oxygen Delivery Nasal Cannula Oxygen Flow Rate 2 Intake/Output Intake/Output: Intake & Output 01/23/25 01/24/25 01/25/25 01/26/25 23:59 23:59 23:59 23:59 Intake Total 550 1580 240 Output Total 2591 182 7110 Balance -1229 1430 -760 Meds/Results Medications: Active Medications Generic Name Dose Route Start Last Admin Trade Name Freq PRN Reason Stop Dose Admin Acetaminophen 650 mg 01/24/25 02:28 01/24/25 20:23 Acetaminophen 325 Mg Tablet PO 650 mg Q4H PRN Administration Mild Pain (1-3) or Fever Hydrocodone Bitart/Acetaminophen 1 tab 01/24/25 15:33 01/25/25 09:28 Hydrocodone/Acetaminophen (*Crx) 5-325 Mg Tablet PO 1 tab Q8H PRN Administration Pain Rated 4-6 Aspirin 81 mg 01/24/25 09:00 01/25/25 09:29 Aspirin 81 Mg Enteric Tablet PO 81 mg DAILY BRANDON Administration Atorvastatin Calcium 80 mg 01/24/25 21:00 01/25/25 20:27 Atorvastatin 40 Mg Tablet PO 80 mg HS BRANDON Administration Carvedilol 25 mg 01/24/25 08:00 01/25/25 17:32 Carvedilol 25 Mg Tablet PO Not Given BIDWM BRANDON Ergocalciferol 1,250 mcg 01/24/25 17:00 Ergocalciferol (Vitamin D2) 1,250 Mcg (50,000 Units) Capsule PO BID BRANDON Isosorbide Mononitrate 30 mg 01/24/25 09:00 01/25/25 09:29 Isosorbide Mononitrate 30 Mg Tab.Er.24h PO 30 mg DAILY BRANDON Administration Lidocaine/Prilocaine 1 each 01/24/25 12:56 01/26/25 07:51 Lidocaine/Prilocaine Cream 2.5-2.5% Tube TOPICAL 1 each WITH DIALYSIS PRN Administration for dialysis Protocol Lisinopril 40 mg 01/24/25 09:00 01/25/25 09:29 Lisinopril 20 Mg Tablet PO 40 mg DAILY BRANDON Administration Melatonin 3 mg 01/24/25 09:23 Melatonin 3 Mg Tablet PO HS PRN Sleep Miscellaneous Information 0 each 01/24/25 00:01 01/26/25 03:38 Please Clarify Vitamin D Dose/Frequency- This Dose Is Given Once Weekly. XX 02/23/25 00:00 Not Given CLARIFY BRANDON Nifedipine 60 mg 01/24/25 09:00 01/25/25 20:28 Nifedipine 30 Mg Tab.Er.24 PO 60 mg Q12HR BRANDON Administration Ondansetron HCl 4 mg 01/24/25 15:33 01/24/25 16:03 Ondansetron Inj 4 Mg/2 Ml Vial IV PUSH 4 mg Q6H PRN Administration Nausea And Vomiting Oxybutynin Chloride 5 mg 01/24/25 21:00 01/25/25 20:28 Oxybutynin Chloride 5 Mg Tablet PO 5 mg HS BRANDON Administration Pantoprazole Sodium 40 mg 01/24/25 09:00 01/25/25 20:28 Pantoprazole 40 Mg Tablet PO 40 mg Q12HR BRANDON Administration Trazodone HCl 50 mg 01/24/25 21:00 01/25/25 20:28 Trazodone Hcl 50 Mg Tablet PO 50 mg HS BRANDON Administration Radiology Results: ITS Impressions Chest CT 01/24/25 08:11 IMPRESSION: 1. Moderate-sized right and small left pleural effusions. 2. Moderate emphysema. Thoracentesis Ultrasound 01/24/25 13:02 IMPRESSION: 1. Successful ultrasound-guided thoracentesis yielding 1000 mL of clear rashad- colored fluid. Abdomen X-Ray 01/24/25 16:39 Impression: 1. No acute abnormality. Abdomen/Pelvis CT 01/26/25 07:13 IMPRESSION: 1. Small right pleural effusion. 2. Emphysema. 3. Cholelithiasis. Gallbladder wall thickening may be secondary to interstitial edema. Chest X-Ray 01/26/25 09:33 IMPRESSION: 1. No significant change. 2. Possible interstitial pulmonary edema or pneumonitis. 3. Emphysema. 4. Small right pleural effusion. Labs Labs: Laboratory Results - last 24 hr 01/24/25 01/25/25 01/25/25 01:59 16:59 23:23 Hgb 9.0 L 8.5 L Hct 26.0 L 23.9 L Absolute Retic 0.10 Percent Retic 3.23 Immature Retic Fraction 22.5 H Retic Hgb Content 28.4 Sodium Potassium Chloride Carbon Dioxide Anion Gap BUN Creatinine Estim Creat Clear Calc Estimated GFR Glucose Calcium Phosphorus Iron 46 TIBC 182 L % Saturation 25 Ferritin 1120.00 H Lactate Dehydrogenase 250 H Albumin Vitamin B12 834.0 Folate 2.7 L Crossmatch See Detail 01/26/25 06:23 Hgb 8.5 L Hct 24.5 L Absolute Retic Percent Retic Immature Retic Fraction Retic Hgb Content Sodium 130 L Potassium 4.5 Chloride 93 L Carbon Dioxide 30 Anion Gap 7 BUN 54 H Creatinine 4.58 H Estim Creat Clear Calc 5 Estimated GFR 9 L Glucose 122 H Calcium 7.2 L Phosphorus 5.5 H Iron TIBC % Saturation Ferritin Lactate Dehydrogenase Albumin 2.9 L Vitamin B12 Folate Crossmatch
[2025-01-26] MEDS: ATORVASTATIN 40 MG TABLET 80 MG PO (21:35)
[2025-01-26] MEDS: ACETAMINOPHEN 325 MG TABLET 650 MG PO (21:36)
[2025-01-26] MEDS: PANTOPRAZOLE 40 MG TABLET PO (21:36)
[2025-01-27] VITALS: PULSE 69
[2025-01-27 04:00] VITALS: PULSE 72
[2025-01-27 05:19] VITALS: BP 118/40; PULSE 67; RESP 16; TEMP 36.6; O2SAT 100
[2025-01-27 08:00] VITALS: PULSE 68
[2025-01-27 08:15] LABS: Hematocrit 24.8 % (37.0-47.0); Hemoglobin 8.4 g/dL (12.0-15.0); Immature Granulocyte Percent A 0.7 % (0-0.5); Lymphocytes Absolute Auto 0.51 K/mm3 (0.9-3.2); Mean Corpuscular HGB Conc 33.9 g/dl (32-36); Mean Corpuscular Hemoglobin 29.1 pg (26-34); Mean Corpuscular Volume 85.8 fl (80-100); Nucleated Red Blood Cells Absolute Auto 0.020 K/mm3 (0.0-0.012); Nucleated Red Blood Cells Perc 0.2 % (0.0-0.2); Platelet Count Result 135 k/mm3 (150-375); Red Blood Count 2.89 M/mm3 (4.2-5.4); White Blood Count 8.5 K/mm3 (4.5-10.0)
[2025-01-27 08:40] LABS: Alanine Aminotransferase 14 U/L (6-35); Albumin Level 2.8 g/dL (3.5-5.1); Alkaline Phosphatase 70 U/L (38-126); Anion Gap 4 mmol/L (4-12); Aspartate Amino Transferase 33 U/L (14-36); Bilirubin,Total 0.4 mg/dL (0.2-1.3); Blood Urea Nitrogen 21 mg/dL (7-17); Calcium 7.4 mg/dL (8.4-10.2); Carbon Dioxide 36 mmol/L (22-30); Chloride 92 mmol/L (98-107); Estimated CRCL calculation 8 ml/min; Estimated Glomerular Filt Rate 16; Glucose 82 mg/dL (65-110); Magnesium 1.7 mg/dL (1.6-2.3); Potassium 4.0 mmol/L (3.4-5.0); Sodium 132 mmol/L (137-145); Total Protein 5.5 g/dL (6.3-8.2)
[2025-01-27] MEDS: FOLIC ACID 1 MG TABLET PO (09:33)
[2025-01-27 09:34] VITALS: PULSE 67
[2025-01-27] MEDS: ISOSORBIDE MONONITRATE 30 MG TAB.ER.24H PO (09:34)
[2025-01-27] MEDS: PANTOPRAZOLE 40 MG TABLET PO (09:34)
[2025-01-27] MEDS: ASPIRIN 81 MG ENTERIC TABLET PO (09:34)
[2025-01-27 12:00] VITALS: PULSE 62
--- NOTE | 2025-01-27 12:18 | PM.DS ---
DS: Admitting Diagnosis Discharge Date 01/27/2025 Admitting Diagnosis Shortness of breath DS: Discharge Diagnosis Discharge Diagnosis (1) Hypertension: Code(s): I10 - Essential (primary) hypertension Status: Chronic (2) ESRD on hemodialysis: Code(s): N18.6 - End stage renal disease; Z99.2 - Dependence on renal dialysis Status: Acute (3) ESRD (end stage renal disease) on dialysis: Code(s): N18.6 - End stage renal disease; Z99.2 - Dependence on renal dialysis Status: Acute (4) Volume overload: Code(s): E87.70 - Fluid overload, unspecified Status: Acute (5) Anemia in ESRD (end-stage renal disease): Code(s): N18.6 - End stage renal disease; D63.1 - Anemia in chronic kidney disease Status: Acute DS: Summary Hospital Course Hospital Course: 79-year-old female who presented to the ED with shortness of breath. Associated generalized weakness. On ED evaluation her vitals were stable. Laboratory studies showed WBC of 6 hemoglobin of 6.4 platelet count a 115. Chem panel showed sodium 132 potassium 3.7 chloride 96 bicarbonate 29 BUN 63 creatinine 4.1 blood glucose of 79. Troponin was 0.049 LFTs were normal. Patient received 1 unit of packed red blood cells with improvement in her hemoglobin. She has underlying end-stage renal disease on dialysis Tuesday. CT scan of the chest showed bilateral pleural effusion. She underwent thoracentesis on 01/24/2025 with removal of 1000 mL of clear rashad colored fluid Nephrology has been consulted for inpatient hemodialysis and underwent hemodialysis 01/24/2025. Hemoglobin drops down to 6.6 again 01/25/2025 status post another transfusion of 1 unit of PRBC. Already on Protonix b.i.d. No signs of bleeding noted. She did have of bleed during dialysis through her dialysis access which could contribute to some anemia. Will continue to monitor for now and remains stable. 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 Stool occult blood has been ordered pending collection. If test positive need to follow-up with GI. Will Continue on Protonix. Iron profile the obtained is after transfusion so likely unreliable. Will check Soluble transferrin receptor to rule out iron deficiency anemia. Low folate to which will be replaced LDH mildly elevated at 250 reticulocyte count is to abnormally normal indicating marrow hypo proliferation. Her hemoglobin remains stable with no further drop and hence will be discharged to home to follow-up with GI as an outpatient basis. 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 DS: Data Data Completed and Pending Labs on day of discharge: Labs from last 24 hours 01/27/25 01/26/25 08:03 06:19 WBC 8.5 RBC 2.89 L Hgb 8.4 L Hct 24.8 L MCV 85.8 MCH 29.1 MCHC 33.9 RDW 16.0 H Plt Count 135 L MPV 9.3 Immature Gran % (Auto) 0.7 H Neut % (Auto) 81.7 H Lymph % (Auto) 6.0 L [place] % (Auto) 8.5 Eos % (Auto) 2.7 Baso % (Auto) 0.4 Lymph # (Auto) 0.51 L [place] # (Auto) 0.7 H Eos # (Auto) 0.2 Baso # (Auto) 0.0 Abs Immat Gran (auto) 0.06 H Absolute Neuts (auto) 7.0 H Absolute Nucleated RBC 0.020 H Nucleated RBC % 0.2 Sodium 132 L Potassium 4.0 Chloride 92 L Carbon Dioxide 36 H Anion Gap 4 BUN 21 H D Creatinine 2.87 H Estim Creat Clear Calc 8 Estimated GFR 16 L Glucose 82 Calcium 7.4 L Magnesium 1.7 Deandra Transferrin Receptr Pending Total Bilirubin 0.4 AST 33 ALT 14 Alkaline Phosphatase 70 Total Protein 5.5 L Albumin 2.8 L Preliminary micro results at discharge 01/24/25 12:10 Acid Fast Bacilli Culture - Preliminary Pleural Fluid Imaging Radiologist's impression: ITS Impressions Chest X-Ray 01/24/25 05:18 IMPRESSION: 1. Right pleural effusion with basilar atelectasis and/or airspace disease. 2. Emphysema with probable COPD. Chest CT 01/24/25 08:11 IMPRESSION: 1. Moderate-sized right and small left pleural effusions. 2. Moderate emphysema. Chest X-Ray 01/24/25 12:39 IMPRESSION: 1. Very small bilateral pleural effusions decreased on the right post right thoracentesis. No pneumothorax. 2. Hyperexpansion lungs with persistent mild diffuse increased initial pattern consistent with emphysema superimposed mild pulmonary edema. 3. Cardiomegaly. Thoracentesis Ultrasound 01/24/25 13:02 IMPRESSION: 1. Successful ultrasound-guided thoracentesis yielding 1000 mL of clear rashad-colored fluid. Abdomen X-Ray 01/24/25 16:39 Impression: 1. No acute abnormality. Abdomen/Pelvis CT 01/26/25 07:13 IMPRESSION: 1. Small right pleural effusion. 2. Emphysema. 3. Cholelithiasis. Gallbladder wall thickening may be secondary to interstitial edema. Chest X-Ray 01/26/25 09:33 IMPRESSION: 1. No significant change. 2. Possible interstitial pulmonary edema or pneumonitis. 3. Emphysema. 4. Small right pleural effusion. Discharge Plan Discharge Attending physician on discharge: Prakash Nelson Consulting providers: Rodolfo Mckeon Discharging Clinician: Prakash Nelson Anticipated Discharge Date/Time: 01/27/25 12:21 Patient Disposition: Home Activity: as tolerated Diet: heart healthy and renal Patient Instructions: Antibiotic Form Patient Language: [place]alander Stand Alone Forms: General Discharge Information Follow-up/Referrals: Jose Rahman MD [Physician, Gastroenterology] - 2 Weeks Teresa,MEERA Bates [Primary Care Provider, Unknown] - 1 Week Discharge Medications: New folic acid 1 mg Tablet 1 mg PO DAILY Qty: 30 0RF Continued aspirin 81 mg Tablet 81 mg PO DAILY isosorbide mononitrate 30 mg tablet extended release 24 hr 30 mg PO DAILY Qty: 30 0RF trazodone 50 mg tablet 50 mg PO HS omeprazole 40 mg capsule,delayed release(DR/EC) 40 mg PO DAILY oxybutynin chloride 5 mg tablet 5 mg PO HS melatonin 3 mg tablet 3 mg PO HS PRN (Reason: Sleep) ergocalciferol (vitamin D2) 1,250 mcg (50,000 unit) capsule 50,000 unit PO BID atorvastatin 80 mg tablet 80 mg PO HS carvedilol 25 mg tablet 25 mg PO BIDWM lisinopril 40 mg tablet 40 mg PO DAILY nifedipine 60 mg tablet extended release 60 mg PO Q12H Date of admission: 01/25/25 08:56 Primary Care Provider: Teresa,Addie Flanagan Admitting Provider: Simone Moore Attending physician on admission: Simone Moore Condition: Stable
--- NOTE | 2025-01-29 06:41 | P.CDI_ITS ---
CDI Query Clarification Request BMI: 14.8 Nutritional Diagnostic Statement: Please refer to the comprehensive nutrition assessment for further information. If you agree with diagnosis of Severe protein calorie malnutrition related to chronic end stage renal disease, as evidenced by weight loss -27%/4 months; intakes <75% needs >1 month; severe muscle wasting and fat loss Please specify severity if known: * Mild * Moderate * Severe * Other/Unknown <Lana Zhu RN - Last Filed: 01/29/25 06:42> Provider Comments Severe protein calorie malnutrition <Prakash Nelson MD - Last Filed: 01/29/25 08:18>
== END 2025-01-27 13:15 | disposition home or self-care (01) | DRG 291 ==
LOC: ANHED 01-24 02:31 → ANH3MEDSUR 01-24 02:45
PROVIDERS: Internal Medicine Nephrology; Nurse Practitioner; Admitting Provider Family Medicine; Emergency Provider Emergency Medicine; PCP Nurse Practitioner Family; Visit Provider Internal Medicine
DX: I13.2 Hypertensive heart and chronic kidney disease with heart failure and with stage 5 chronic kidney disease, or end stage renal disease (principal); E43 Unspecified severe protein-calorie malnutrition; N18.6 End stage renal disease; J96.01 Acute respiratory failure with hypoxia; Z68.1 Body mass index [BMI] 19.9 or less, adult; J90 Pleural effusion, not elsewhere classified; I50.42 Chronic combined systolic (congestive) and diastolic (congestive) heart failure; D63.1 Anemia in chronic kidney disease; E78.5 Hyperlipidemia, unspecified; I43 Cardiomyopathy in diseases classified elsewhere; I73.9 Peripheral vascular disease, unspecified; J43.9 Emphysema, unspecified; Z99.2 Dependence on renal dialysis; Z79.82 Long term (current) use of aspirin; Z88.0 Allergy status to penicillin; Z87.891 Personal history of nicotine dependence
CPT/HCPCS: 32555; 36415; 36430; 71045; 71250; 74018; 74176; 80053; 80069; 82042; 82150; 82607; 82728; 82746; 82945; 83540; 83550; 83615; 83735; 83986; 84157; 84238; 84484; 85014; 85018; 85025; 85046; 85049; 85610; 85730; 86706; 86850; 86900; 86901; 86923; 87340; 87641; 89051; 93005; 96361; 96374; 96375; 99285; A9270; G0257; G0378; J2405; J7030; J7050; P9016; P9047; Q5105

== ENCOUNTER 2025-02-19 16:42 | Emergency (ER) | payer MEDICARE, BC, SELFPAY ==
[2025-02-19 16:34] VITALS: BP 169/51; PULSE 92; RESP 20; TEMP 37.1; O2SAT 96
--- NOTE | 2025-02-19 16:55 | ECG_ITS ---
Test Date: 2025-02-19 16:49:23 Measurements Intervals [place] Rate: 90 P: 64 MD: 153 QRS: 37 QRSD: 77 T: 83 QT: 372 QTc: 457 Interpretive Statements SINUS RHYTHM POSSIBLE LEFT ATRIAL ENLARGEMENT [-0.1mV P-WAVE IN V1/V2] ST DEVIATION AND MODERATE T-WAVE ABNORMALITY, CONSIDER LATERAL ISCHEMIA [-0.1+ mV T-WAVE IN I/aVL/V5/V6] Electronically Signed On 02-19-2025 18:02:30 ENGINEER BYPRODUCT by Minerva Chatman M.D.
--- NOTE | 2025-02-19 17:04 | ED.WEAKNESS ---
HPI - Weakness General Chief complaint: Weakness Stated complaint: weakness, SOB Time Seen by Provider: 02/19/25 16:52 History of Present Illness HPI Narrative: Pt sent to ER for generalized weakness after dialysis. Pt has no complaints now. Pt denies fever or CP or SOB. Per family she felt weak and dizzy after dialysis and called her doctor who recommended she be seen. Pt has anemia and is due for transfusion tomorrow. Related Data Home Medications ?Medication ?Instructions ?Recorded ?Confirmed ?Last Taken ?Type aspirin 81 mg tablet 81 mg PO DAILY 05/10/20 01/24/25 01/23/25 History melatonin 3 mg tablet 3 mg PO HS PRN Sleep 12/08/22 01/24/25 10/01/24 History omeprazole 40 mg capsule,delayed 40 mg PO DAILY 12/08/22 01/24/25 01/23/25 History release oxybutynin chloride 5 mg tablet 5 mg PO HS 12/08/22 01/24/25 01/23/25 History trazodone 50 mg tablet 50 mg PO HS 12/08/22 01/24/25 01/23/25 History ergocalciferol (vitamin D2) 1,250 50,000 unit PO BID 10/11/23 01/24/25 01/23/25 History mcg (50,000 unit) capsule atorvastatin 80 mg tablet 80 mg PO HS 03/10/24 01/24/25 01/23/25 History carvedilol 25 mg tablet 25 mg PO BIDWM 03/10/24 01/24/25 01/23/25 History lisinopril 40 mg tablet 40 mg PO DAILY 08/21/24 01/24/25 01/23/25 History nifedipine 60 mg tablet,extended 60 mg PO Q12H 08/21/24 01/24/25 01/23/25 History release Allergies Allergy/AdvReac Type Severity Reaction Status Date / Time Penicillins Allergy Unknown Unknown,Ham Verified 01/24/25 13:12 h Review of Systems Review of Systems: All systems reviewed & are unremarkable except as noted in HPI and below PMFSH Past Medical History Medical History Hypertensive cardiomegaly Hyperparathyroidism due to ESRD on dialysis End-stage renal disease on hemodialysis Tuesday. Dialysis managed by Dr. Joshua Motley Hyperlipidemia Chronic anemia History of blood transfusion. COPD with emphysema Peripheral arterial disease Combined systolic and diastolic congestive heart failure Echocardiogram on 09/10/2020 EF of 20 to 25%, grade 1 diastolic dysfunction, reduced RV systolic function. 12/2020 echo EF 40-46% with segmental wall motion abnormalities Gastric AVM Cardiomyopathy Presumed ischemic with moderately sized moderately severe reversible defect and small mild non reversible infarct on Lexiscan stress on 09/12/2020. Hypertension Surgical History Surgical History Surgically constructed arteriovenous fistula Left upper arm History of colonoscopy History of colon polyps, internal hemorrhoids, and diverticulosis. History of esophagogastroduodenoscopy History of gastric erosions, gastric polyps, and duodenal AVMs. History of revascularization procedure of lower extremity (10/2019) Bilateral lower extremity stents per Dr. Carrillo. History of vascular surgery (06/12/13) Aorto bi-iliac bypass graft per Dr. Carrillo. Family History Family History Mother Alzheimer disease Father Emphysema of lung Social History Social History Social History: Surrogate medical decision maker: Dhaval Allen, hay. Code status: Full code. Smoking packs per day: 0.5 Smoking cigarettes per day: 10.0 Years smoked: 53 Smoking pack-years: 26.50 Tobacco type: cigarettes Second hand tobacco smoke exposure: Yes Smoking end date: 09/20/74 Alcohol intake: never Substance use: never Substance use type: does not use Do You Feel Safe in your Home?: Yes Lack of Transportation: No Lack of Food: Never True Current Housing: I Have Housing Concerned About Future Housing: No Difficulty Paying Gas/Electric Bills: No Difficulty Paying for Meds: No Currently Unemployed: No Education: Associate Degree Difficulty w/ Childcare or Family Care: No Additional living arrangements comments: . Lives with her only son in [place]. Additional occupation/education comments: Retired from the [employer]. Spiritual care concerns: No Exam Const: General: healthy appearing and no acute distress Nutritional Appearance: well nourished Orientation/consciousness: patient oriented x3 Limitations: no limitations Eyes: Pupils: Equal, round and reactive pupils present EOM: EOMs intact bilaterally Neck: Neck: normal visual inspection Chest: Chest palpation & inspection: normal inspection of the chest Resp: Effort & Inspection: normal respiratory effort Auscultation: clear to auscultation bilaterally Cardio: Rate: regular rate Rhythm: regular rhythm Heart sounds: Murmur heart sound present systolic GI: GI Palp: Yes Soft to palpation Auscultation: normal bowel sounds Skin: General skin exam: normal color Rashes: no rashes Neuro: General: patient oriented x3, moves all extremities, no meningeal signs and no focal motor deficits Cranial nerves: Yes Nystagmus not present Speech: normal speech Extrem: General: normal to inspection and no clubbing, cyanosis or edema Psych: Mental Status: mental status grossly normal Affect: normal affect Attitude: cooperative Course Vital Signs Vital signs: Vital Signs Temperature 98.8 F 02/19/25 16:34 Pulse Rate 92 02/19/25 16:34 Respiratory Rate 20 02/19/25 16:34 Blood Pressure 169/51 H 02/19/25 16:34 Pulse Oximetry 96 02/19/25 16:34 Oxygen Delivery Room Air 02/19/25 16:34 Temperature 98.8 F 02/19/25 16:34 Pulse Rate 92 02/19/25 16:34 Respiratory Rate 20 02/19/25 16:34 Blood Pressure 169/51 H 02/19/25 16:34 Pulse Oximetry 96 02/19/25 16:34 Oxygen Delivery Room Air 02/19/25 16:34 MDM - Weakness MDM Narrative Medical decision making narrative: Pt initally not wanting any testing but family concerned so pt agreed to some lab work and ekg. ekg has some lateral changes and hb is 5.3 down from 6 earlier today. Offered pt admission to hospital but patient does not want to stay. She wants to get transfusion tomorrow as scheduled. Pt will return if any CP or SOB or black or bloody stools and will get transfusion in am as scheduled. Will have pt sign ama. Pt is alert and oriented and understands risks and capable of making inhformed decision Differential Diagnosis Differential diagnosis: Likely anemia, hypoglycemia, dehydration and other (electrolyte abnormality) Lab Data Attestation: I reviewed the patient's lab results. 02/19/25 18:02 02/19/25 18:02 Labs: Lab Results 02/19/25 Range/Units 18:02 WBC 6.9 (4.5-10.0) K/mm3 RBC 1.84 L (4.2-5.4) M/mm3 Hgb 5.3 L* (12.0-15.0) g/dL Hct 16.0 L* (37.0-47.0) % MCV 87.0 (80-100) fl MCH 28.8 (26-34) pg MCHC 33.1 (32-36) g/dl RDW 17.9 H (11.5-14.5) % Plt Count 122 L (150-375) k/mm3 MPV 8.5 (7.4-10.4) fl Immature Gran % (Auto) 0.4 (0-0.5) % Neut % (Auto) 83.1 H (45.5-73.1) % Lymph % (Auto) 6.2 L (18.3-44.2) % [place] % (Auto) 7.7 (2.6-8.5) % Eos % (Auto) 2.3 (0-4.4) % Baso % (Auto) 0.3 (0.2-1.2) % Lymph # (Auto) 0.43 L (0.9-3.2) K/mm3 [place] # (Auto) 0.5 (0.1-0.6) K/mm3 Eos # (Auto) 0.2 (0-0.3) K/mm3 Baso # (Auto) 0.0 (0.0-0.1) K/mm3 Abs Immat Gran (auto) 0.03 (0.00-0.031) K/mm3 Absolute Neuts (auto) 5.7 (1.3-6.7) K/mm3 Absolute Nucleated RBC 0.000 (0.0-0.012) K/mm3 Nucleated RBC % 0.0 (0.0-0.2) % Sodium 134 L (137-145) mmol/L Potassium 4.2 (3.4-5.0) mmol/L Chloride 98 (98-107) mmol/L Carbon Dioxide 30 (22-30) mmol/L Anion Gap 6 (4-12) mmol/L BUN 36 H D (7-17) mg/dL Creatinine 2.97 H (0.7-1.0) mg/dL Estim Creat Clear Calc Not Reportable Estimated GFR 15 L (59 - ) Glucose 79 (65-110) mg/dL Calcium 7.8 L (8.4-10.2) mg/dL Magnesium 1.7 (1.6-2.3) mg/dL Total Bilirubin 0.3 (0.2-1.3) mg/dL AST 25 (14-36) U/L ALT 11 (6-35) U/L Alkaline Phosphatase 81 (38-126) U/L Total Protein 6.0 L (6.3-8.2) g/dL Albumin 3.1 L (3.5-5.1) g/dL ECG Data EKG #1: Attestation: I personally reviewed and interpreted this ECG as follows: Interpretation: nsr rate 90 st depression t wave inversion lateral leads (new from prior) Discharge Plan Discharge Clinical Impression: End stage renal disease, Anemia, ST segment changes on electrocardiogram Patient Disposition: Left Against Medical Advice Condition: Stable Instructions: Chronic Kidney Disease (ED), Anemia (ED) Patient Language: Salvadorean Prescriptions: No Action aspirin 81 mg Tablet 81 mg PO DAILY isosorbide mononitrate 30 mg tablet extended release 24 hr 30 mg PO DAILY Qty: 30 0RF trazodone 50 mg tablet 50 mg PO HS omeprazole 40 mg capsule,delayed release(DR/EC) 40 mg PO DAILY oxybutynin chloride 5 mg tablet 5 mg PO HS melatonin 3 mg tablet 3 mg PO HS PRN (Reason: Sleep) ergocalciferol (vitamin D2) 1,250 mcg (50,000 unit) capsule 50,000 unit PO BID atorvastatin 80 mg tablet 80 mg PO HS carvedilol 25 mg tablet 25 mg PO BIDWM lisinopril 40 mg tablet 40 mg PO DAILY nifedipine 60 mg tablet extended release 60 mg PO Q12H folic acid 1 mg Tablet 1 mg PO DAILY Qty: 30 0RF Follow-up/Referrals: Se,MEERA Bates [Primary Care Provider, Unknown]
[2025-02-19 18:09] LABS: Immature Granulocyte Percent A 0.4 % (0-0.5); Lymphocytes Absolute Auto 0.43 K/mm3 (0.9-3.2); Mean Corpuscular HGB Conc 33.1 g/dl (32-36); Mean Corpuscular Hemoglobin 28.8 pg (26-34); Mean Corpuscular Volume 87.0 fl (80-100); Nucleated Red Blood Cells Absolute Auto 0.000 K/mm3 (0.0-0.012); Nucleated Red Blood Cells Perc 0.0 % (0.0-0.2); Platelet Count Result 122 k/mm3 (150-375); Red Blood Count 1.84 M/mm3 (4.2-5.4); White Blood Count 6.9 K/mm3 (4.5-10.0)
[2025-02-19 18:13] LABS: Hemoglobin 5.3 g/dL (12.0-15.0)
[2025-02-19 18:14] LABS: Hematocrit 16.0 % (37.0-47.0)
[2025-02-19 18:26] LABS: Alanine Aminotransferase 11 U/L (6-35); Albumin Level 3.1 g/dL (3.5-5.1); Alkaline Phosphatase 81 U/L (38-126); Anion Gap 6 mmol/L (4-12); Aspartate Amino Transferase 25 U/L (14-36); Bilirubin,Total 0.3 mg/dL (0.2-1.3); Blood Urea Nitrogen 36 mg/dL (7-17); Calcium 7.8 mg/dL (8.4-10.2); Carbon Dioxide 30 mmol/L (22-30); Chloride 98 mmol/L (98-107); Estimated Glomerular Filt Rate 15; Glucose 79 mg/dL (65-110); Magnesium 1.7 mg/dL (1.6-2.3); Potassium 4.2 mmol/L (3.4-5.0); Sodium 134 mmol/L (137-145); Total Protein 6.0 g/dL (6.3-8.2)
== END 2025-02-19 19:06 | disposition left against medical advice (07) ==
PROVIDERS: Emergency Provider Emergency Medicine; PCP Nurse Practitioner Family
DX: D64.9 Anemia, unspecified (principal); I13.2 Hypertensive heart and chronic kidney disease with heart failure and with stage 5 chronic kidney disease, or end stage renal disease; I50.40 Unspecified combined systolic (congestive) and diastolic (congestive) heart failure; R94.31 Abnormal electrocardiogram [ECG] [EKG]; N18.6 End stage renal disease; Z99.2 Dependence on renal dialysis; N25.81 Secondary hyperparathyroidism of renal origin; J43.9 Emphysema, unspecified; I73.9 Peripheral vascular disease, unspecified; E78.5 Hyperlipidemia, unspecified; Z86.0100 Personal history of colon polyps, unspecified; Z87.891 Personal history of nicotine dependence
CPT/HCPCS: 36415; 80053; 83735; 85025; 93005; 99283

== ENCOUNTER 2025-02-20 07:36 | Inpatient (IN) | payer MEDICARE, BC, SELFPAY ==
--- OUTSIDE RECORDS SUMMARY | 2006-08-04 07:46 | XMS_ITS | Continuity of Care Document ---
Author Organization [facility] Address [address] [place] [address] [address] [place] [address] Phone Care Team Providers Care Doctor Of Medicine Name Role Phone Zuniga OD, Maykel Unavailable Unavailable Procedures Procedure Date Eye Exam & Treatment Refraction Advance Directives Directive Yes / No Effective Date File Name No Information Encounters Encounter Description Practice Location Reason(s) For Visit Diagnoses Date Provider Providers Copied on Encounter [facility], [address] [place] [address] [address], [place], [place], [id number], [place] tel:[phone] [facility], [place] No Information [phone] Zuniga OD Maykel. [address] , [address], [place], [address], [place]. tel:[phone] Family History Family Member Type Diagnosis Age At Onset No Information Payers Payer name Insurance type Covered libertarian ID Authoriza tion(s) [place] BL [id number] Social History Type Description Quantity Date Captured Comments Sex Female Smoking Status No Information Chief Complaint And Reason For Visit No Information Reason For Referral Reason For Referral No Information History Of Present Illness Encounter Date Complaint History Of Prese nt Illness No Information Functional Status Date Functional Assessmen t No Information Instructions Date Instruction Additional Infor mation No Information Assessments Type Assessment Date No Information Patient Care Teams Name Effective Dates (start - stop) Status Members No Information
--- OUTSIDE RECORDS SUMMARY | 2025-02-03 08:30 | XMS_ITS | Encounter Summary ---
Author Organization [facility] Healthcare Address [address] [place] [address] Care Team Providers Care Nurse Receptionist Name Role Phone Louisa Anderson MD Unavailable [phone] Juan Luis Fritz MD Unavailable [phone] Joshua Motley MD Unavailable [phone] Wily Tolbert RN Unavailable [phone] Addie Moore NP Primary Care Provider [phone] Reason for Visit * Auth/Cert (Routine) Specialty Diagnoses / Procedures Referred By Keren t Referred To Contact Referral ID Status Reason Start Date Expiration Date Visits Re quested Visits Authorized [id number] 1 1 Encounter Details Date Type Department Care Team (Latest Contact Info) Description 02/03/2025 9:30 AM CDT Home Care Visit [facility] [address] [address] [address] [place] [address] Wily Mayfield, JOHNSON SN OASIS START OF CARE Social History Tobacco Use Types Packs/Day Years Used Date Smoking Tobacco: Former Cigarettes Q uit: 10/01/2020 Smokeless Tobacco: Never Alcohol Use Standard Drinks/Week Comments Yes 0 (1 standard drink = 0.6 oz pur e alcohol) OASIS D0700: Social Isolation Answer Da te Recorded Frequency of experiencing loneliness or isolatio n Never 02/03/2025 OASIS A1250: Transportation Answer Date Recorded Lack of Transportation (Medical) No 02/03/2025 Lack of Transportation (Non-Medical) No 02/03/2025 Patient Unable or Declines to Respond No 02/03/2025 OASIS B1300: Health Literacy Answer Naif e Recorded Frequency of needing help to read materials from doctor or pharmacy Sometimes 02/03/2025 [facility] Utilities Answer Date Recorded In the past 12 months has th e electric, gas, oil, or water company threatened to shut off services in your home? No 04/20/2024 Social Connection and Isolation Panel Answer Date Recorded In a typical week, how many times do you talk on the phone with family, friends, or neighbors? More than three times a week 04/20/2024 How often do you get togethe r with friends or relatives? More than three times a week 04/20/2024 How often do you attend chur ch or gnosticist services? Never 04/20/2024 Do you belong to any clubs o r organizations such as bahai groups, unions, fraternal or athletic groups, or [...] points, staff should administer the PHQ-9) 0 11/15/2024 Hunger Vital Sign Answer Date Recorded Within [...] any time in the past 12 m [facility], were you homeless or living in a detention (including now)? No 04/20/2024 Personal Safety Answer Date Recorded Getting School Help Needed Denies 04/13 Comments No Sex and Gender Information Value Date Recorded Sex Assigned at Not on file Legal Sex Female 8:21 AM CDT Gender Identity Not on file Sexual Orientation Not on file documented as of this encounter Last Filed Vital Signs Vital Sign Reading Time Taken Comments Blood Pressure 122/50 02/03/2025 10:35 AM CDT Pulse 67 02/03/2025 10:35 AM CDT Temperature 36.4 C (97.6 F) 02/03/2025 10:35 AM CDT Respiratory Rate 18 02/03/2025 10:35 AM CDT Oxygen Saturation 97% 02/03/2025 10:35 AM CDT Inhaled Oxygen Concentration - - Weight - - Height - - Body Mass Index - - documented in this encounter Functional Status * BP Location Answer Date of Assessment Author Right arm 02/13/2025 10:03 AM Hema Tucker MA * BP Location Answer Date of Assessment Author Right arm 02/13/2025 10:03 AM Hema Tucker MA documented as of this encounter Miscellaneous Notes * Home Health/Infusion Wily Grider, JOHNSON - 02/03/2025 9:59 AM CDT SITUATION Focus of Care: CHF Caregivers available: son BACKGROUND Pertinent Medical History/Hospitalizations: Patient is Tues, Thurs, Sat. dialysis. Patient stated she is depressed all of the time. Prior Level of Functioning: min assist Current Living Conditions/Safety Hazards: lives at home with son. Patient has days were she is doing good, has energy, patient stated most of the time she doesnt want to do anything because she is too weak. ASSESSMENT Abnormal assessment findings: none Medication Issues: none Re-hospitalization risk: medium Barriers to care/social drivers: dialysis, weakness RECOMMENDATIONS POC confirmed with Addie Moore NP Plan for my discipline: 2 SNV a week for 1 week, 1 SNV a week for 2. 3 prn Other disciplines ordered/recommended: PT, DEPUTY JUVENILE OFFICER ordered Supply/HME/equipment needs or issues:none Follow ups needed: none * Quality Review - Anabella Tolentino - 02/03/2025 9:28 AM CDT M1700 - Cognitive functioning 1 - Requires prompting (cuing, repetition, reminders) only under stressful or unfamiliar conditions. M1700: Changed from 0 to 1. Per RN [place] patient needs cueing in unfamiliar conditions. According to OASIS guidance if patient is forgetful and needs cueing, repetition and reminders, Code 1. M1810 - Ability to dress upper body 1 - Able to dress upper body without assistance if clothing is laid out or handed to the patient. 2 - Someone must help the patient put on upper body clothing. M1810: Changed from 1 to 2. Per RN [place] patient has bilateral foot pain, needs SUP with ambulation/transfers, has AV fistula for dialysis, dyspnea with minimal exertion, and cognitive impairment. According to OASIS guidance if patient requires standby assistance (a ???electrical mechanical technician?? ) to dress safely or requires verbal cueing/reminders due to physical/cognitive/environmental barriers to complete tasksafely, Code 2. M1820 - Ability to dress lower body 1 - Able to dress lower body without assistance if clothing and shoes are laid out or handed to thepatient. 2 - Someone must help the patient put on undergarments, slacks, socks or nylons, and shoes. M1820: Changed from 1 to 2.. Per SBAR note, Patient presents with decreased LE strength, impaired balance, poor endurance, shortness of breath, limiting ability to safely perform transfers, ambulation, and other functional mobility tasks..According to OASIS guidance if patient requires standby assistance (a ???electrical mechanical technician?? ) to dress safely or requires verbal cueing/reminders due to physical/cognitive/environmental barriers to complete task safely, Code 2. M1845 - Toileting hygiene 1 - Able to manage toileting hygiene and clothing management without assistance if supplies/implements are laid out for the patient. 2 - Someone must help the patient to maintain toileting hygiene and/or adjust clothing. M1845: Changed [id number] 2. Per SBAR note, Patient presents with decreased LE strength, impaired balance, poor endurance, shortness of breath, limiting ability to safely perform transfers, ambulation, and other functional mobility tasks According to OASIS guidance if patient needs help with adjustinglower body clothing due to physical/emotional impairments, Code 2. M1850 - Transferring 1 - Able to transfer with minimal human assistance or with use of an assistive device. 2 - Able to bear weight and pivot during the transfer but unable to transfer self. M1850: Changed from 1 to 2. SOC note indicates patient requires supervision e to transfer. SBAR note indicates Patient presents with decreased LE strength, impaired balance, poor endurance, shortnessof breath, limiting ability to safely perform transfers, ambulation, and other functional mobility tasks According to OASIS guidance if patient does not use assisted device but requires more than minimal human assistance (>25% of verbal cues, stand-by, environmental set up) due to physical/cognitive impairments to complete transfer process safely, Code 2. [id number] - Self-Care - Toileting hygiene 5 - Setup or clean-up assistance 4 - Supervision or touching assistance [id number]: Changed from 05 to Code 04 Supervision. Per SBAR note, Patient presents with decreased LE strength, impaired balance, poor endurance, shortness of breath, limiting ability to safely perform transfers, ambulation, and other functional mobility tasks. OASIS guidance states if patient needs verbal cueing/touching/steadying or contact guard, code 04. M1028 - Active diagnoses - comorbidities and co 1 - PVD or PAD M1028: Change from blank to 1. Patient has an active diagnosis of PVD/PAD including but not limitedto venous insufficiency (I87.2) and/or any codes that start with 170.2-I70.7 and I70.9-or 173 or 187.2 and 187.3. M1400 - When dyspneic 2 - With moderate exertion (for example, while dressing, using commode or bedpan, walking distancesless than 20 feet) 3 - With minimal exertion (for example, while eating, talking, or performing other ADLs) or with agitation M1400: Changed from 2 to 3. PER SOC note- (functional limitations) patient has dyspnea with minimalexertion. According to OASIS if patient who experiences SOB with minimal exertion or is moderately SOB, Code 3. (examples: notably short of breath while eating, grooming, or talking). M1340 - Does this patient have a surgical wound 0 - No 1 - Yes, patient has at least one observable surgical wound M1340: Changed from 1 to 0. [Insert discipline note & patient specific information] According to OASIS guidance patient???s wound is not considered surgical (e.g. open abscess or hematoma, all ostomies, fistula, puncture sites [cardiac catheterization, kyphoplasty, thoracentesis, etc.], PICC line insertion site, Simple I&D, cryosurgery, and any surgical wound contained within the mucous membrane tissue [vaginal, intranasal, eye, rectal, mouth], and chest tube sites). M1342 - Status of most problematic surgical wound ^ - Blank (skip pattern) 3 - Not healing M1342: Changed blank to 3. SOC note indicates patient has dialysis catheter for dialysis infusions.According to OASIS guidance if a patient???s central line (NOT PICC) or dialysis catheter, infusioncatheter, non-coring needle accessing an implanted port, orthopedic pin site, or surgical drain that is present will prevent granulation or healing from happening, Code 3. M2020 - Management of oral medications 1 - Able to take medication(s) at the correct times if: (a) individual dosages are prepared in advance by another person; OR (b) another person develops a drug diary or chart. 3 - Unable to take medication unless administered by another person. M2020: Changed from 1 to 3. SOC note indicates patient requires continuous supervision while ambulating. OASIS guidance states if patient has physical limitations like needing assistance to walk to where medications are stored or get a glass of water to take medications safely, Code 3. Additional Notes [facility] NURSE * Quality Review - Wily Mayfield RN - 02/03/2025 9:28 AM CDT [place] changes reviewed and approved. [facility] NURSE documented in this encounter Plan of Treatment Not on file documented as of this encounter Visit Diagnoses Not on filedocumented in this encounter Home Health Visit - Care Plan Visit Details Visit Type -SN OASIS Start o f Care Discipline -Mcfp Problems Problem Description Start Date Status Goals Interve ntions Pressure Prevention Disciplines: Skilled Disciplines Pressure Prevention 02/03/2025 Active 1 goal linked to scheduled/documen liudmila intervention 1 goal intervention scheduled/documen liudmila in this visit Medications Disciplines: Mcfp Management of home medications 02/03/2025 Active 1 goal linked to scheduled/documen liudmila intervention 2 goal interventions scheduled/documen liudmila in this visit Monitor patient's vital signs every home health visit Disciplines: Skilled Disciplines, SN, PT, OT, CHARTER BOAT CAPTAIN, DAY CARE AIDE Monitor patient's vital signs every home health visit. 02/03/2025 Active 1 goal linked to scheduled/documen liudmila intervention 1 goal intervention scheduled/documen liudmila in this visit Infection Prevention Disciplines: Skilled Disciplines Infection Prevention 02/03/2025 Active 1 goal linked to scheduled/documen liudmila intervention 2 goal interventions scheduled/documen liudmila in this visit Fall Precautions/Safe ty Concerns Disciplines: Skilled Disciplines Fall precautions and general safety 02/03/2025 Active 1 goal linked to scheduled/documen liudmila intervention 1 goal intervention scheduled/documen liudmila in this visit Knowledge Deficit - Other Disease Process and Management Disciplines: Skilled Disciplines Other disease process and management not already specified CHF 02/03/2025 Active 1 goal linked to scheduled/documen liudmila intervention 2 goal interventions scheduled/documen liudmila in this visit Depression Disciplines: Skilled Disciplines Depression 02/03/2025 Active 1 goal linked to scheduled/documen liudmila intervention 3 goal interventions scheduled/documen liudmila in this visit Pain Disciplines: Core Disciplines Alteration in comfort 02/03/2025 Active 1 goal linked to scheduled/documen liudmila intervention 1 goal intervention scheduled/documen luidmila in this visit Knowledge deficit Disciplines: Mcfp Knowledge deficit relating to coronary artery bypass graft 02/03/2025 Active 1 goal linked to scheduled/documen liudmila intervention 3 goal interventions scheduled/documen liudmila in this visit Fluid Retention - CHF Disciplines: Mcfp Retention of fluid 02/03/2025 Active 1 goal linked to scheduled/documen liudmila intervention 5 goal interventions scheduled/documen liudmila in this visit Goals Goal Associated Problem Outcome Goal Met? Visit Notes Prevent development of pressure injuries Description: tank terminal gauger goal: The patient will maintain intact skin and avoid the development of pressure injuries within 03/25/25 Short term goal: The patient/caregiver will understand and adhere to pressure prevention interventions within 02/13/25 Pressure Prevention No Understand and follow medication therapy Description: Patient/Caregiver will verbalize understanding of purpose, side effects, and medication regimen in 4 weeks as evidenced by taking all medications as prescribed and no medication errors. Medications No Measure vital signs during every home health visit during episode of care Description: Home substance abuse clinician to measure vital signs during every home health visit during episode of care. Monitor patient's vital signs every home health visit No Verbalize signs of infection Description: Patient/caregiver will demonstrate knowledge of infection prevention strategies by verbalizing signs and symptoms of infection. Infection Prevention No Demonstrate fall and safety precautions Description: Patient/caregiver maintains safe home environment as evidenced by remaining free from falls, injury due to falls, demonstrating safety precautions, and identifying strategies to reduce falls by 02/13/25 Fall Precautions/Safety Concerns No Understanding of disease process Description: Patient/caregiver will demonstrate understanding of disease process by verbalizing signs and symptoms, preventative measures, and when to report to home care agency or provider. Knowledge Deficit - Other Disease Process and Management No Demonstrate knowledge of depression Description: Patient/caregiver to demonstrate knowledge of depression as evidence by verbalization of signs and symptoms of depression and when to report to physician. Depression No Report that pain has been reduced or controlled Description: Patient/caregiver/family will verbalize satisfaction with the patients level of pain and symptom control. Pain No Demonstrate adequate knowledge of follow-up care Description: Patient/caregiver will have adequate knowledge of follow-up care as evidenced by the ability to describe the condition, risk factors, and required life-style adaptations including compliance with meds, diet, and rehabilitation program by the end of the e pisode of care. Knowledge deficit No Demonstrate compliance with fluid retention interventions Description: Patient will demonstrate knowledge of edema strategies and diet by the end of the episode of care. Fluid Retention - CHF No Interventions Intervention Associated Problem/Goal Status Variance Visit Notes Instruct on Pressure Prevention Description: Instruct patient/caregiver on inspecting the skin regularly for signs of impaired skin integrity, repositioning the patient on an individualized schedule according to the patient's tissue tolerance, skin condition, mobility, medical condition, and treatm ent goals. Avoid vigorous massage and emphasize the importance of increasing activity and mobility. Avoid using donut-shaped devices and foam cutouts for pressure redistribution. Determine if patient is using or needs a pressure reduction surface . Instruct patient/caregiver on using moisture barriers and absorbent pads/briefs as needed, avoiding prolonged skin contact with wet materials, and cleaning and drying skin thoroughly after incontinence episodes. If patient is malnourished instruct pa tient/caregiver on physician ordered diet, increased fluid intake if not contraindicated, and a list of possible protein sources to promote skin integrity. Problem:Pressure Prevention Goal:Prevent development of pressure injuries Performed Instructed patient/caregiver on inspecting the skin regularly for signs of impaired skin integrity, repositioning the patient on an individualized schedule according to the patient's tissue tolerance, skin condition, mobility, medical condition, and santiago tment goals. Avoid vigorous massage and emphasize the importance of increasing activity and mobility. Avoid using donut-shaped devices and foam cutouts for pressure redistribution. Determine if patient is using or needs a pressure reduction surface. Instructed patient/caregiver on using moisture barriers and absorbent pads/briefs as needed, avoiding prolonged skin contact with wet materials, and cleaning and drying skin thoroughly after incontinence episodes. If patient is malnourished instructed pa tient/caregiver on physician ordered diet, increased fluid intake if not contraindicated, and a list of possible protein sources to promote skin integrity. Instruct on Medication Management Description: Assess patient/caregiver ability to demonstrate management of medications, steps to obtain new/refills of medications and identification of new or changed medications. Assess patient/caregiver ability to verbalize accurate dose/route/frequency/boris son for medication, how to evaluate effectiveness of medication, ongoing lab work needed to ensure therapeutic dosing, drug/food interactions, side effects/adverse reactions, contraindications for medications and known drug allergies. Evaluate the effectiveness of current treatment regimen and notify the appropriate healthcare provider for the need for changes in the plan of care. Problem:Medications Goal:Understand and follow medication therapy Performed Caregiver is managing medications and no further education need. Caregiver verbalized dose/frequency/reaso n for medication Instruct on High Risk Medications Description: Instruct patient/caregiver on oral or injectable high-risk medications, including: anticonvulsant, antiretroviral, anticoagulant, antibiotics, chemotherapeutic, hypoglycemic including insulin, immunosuppressant, antipsychotic, and opioids. Problem:Medications Goal:Understand and follow medication therapy Performed Monitor Vital Signs Description: Monitor blood pressure, pulse, oxygen saturation, respirations Problem:Monitor patient's vital signs every home health visit Goal:Measure vital signs during every home health visit during episode of care Performed Educate Patient on Infection Prevention Description: Instruct patient on signs and symptoms of infection IE: fever, odor, change in color, increased amount of drainage, purulent drainage, warmth. Problem:Infection Prevention Goal:Verbalize signs of infection Performed Educate Family on Infection Prevention Description: Instructed family on signs and symptoms of infection IE: fever, odor, change in color, increased amount of drainage, purulent drainage, warmth. Problem:Infection Prevention Goal:Verbalize signs of infection Performed High Fall Risk Precautions Description: Instruct patient/caregiver to use proper lighting in all areas, stand/sit up slowly, use appropriate footwear when walking, use proper assistive devices, and to keep pathways clear of cords and clutter to prevent falls. Remove/secure throw rugs. Educate patient on medications and disease processes that increase fall risk, using corrective lenses as prescribed, placing hard to reach items within reach, what to do in the event of a fall and to report any falls to the home health agency. Problem:Fall Precautions/Safety Concerns Goal:Demonstrate fall and safety precautions Performed Instructed patient/caregiver to use proper lighting in all areas, stand/sit up slowly, use appropriate footwear when walking, use proper assistive devices, keep pathways clear of cords and clutter to prevent falls, what to do in the event of a fall and t o report any falls to the home health agency. Notification of Complications Description: Instruct patient/caregiver when to notify SN/MD of complications Problem:Knowledge Deficit - Other Disease Process and Management Goal:Understanding of disease process Performed Instruct on Disease Process Description: Instruct patient/caregiver on disease process and management CHF Problem:Knowledge Deficit - Other Disease Process and Management Goal:Understanding of disease process Performed Instruct on Depression Description: Instruct patient/caregiver on signs/symptoms of depression. Problem:Depression Goal:Demonstrate knowledge of depression Performed Assess signs/symptoms of Depression Description: Assess signs/symptoms of depression and emotional well-being. Problem:Depression Goal:Demonstrate knowledge of depression Performed Assess depression Description: Assess depression. Problem:Depression Goal:Demonstrate knowledge of depression Performed Instruct on pain management techniques Description: Instruct in pharmacologic and nonpharmacologic pain management techniques. Problem:Pain Goal:Report that pain has been reduced or controlled Performed Instruct on Physical Limitations Description: Instruct patient/caregiver on no lifting, pushing, pulling of more than 5-10lbs. Problem:Knowledge deficit Goal:Demonstrate adequate knowledge of follow-up care Performed Instruct on heart healthy diet Description: Instruct patient/caregiver on heart healthy diet. Problem:Knowledge deficit Goal:Demonstrate adequate knowledge of follow-up care Performed Instruct on daily weighing Description: Instruct patient/caregiver on daily weights, energy conservation, support hose, signs and symptoms of complications, and when to notify Home Care agency and/or physician. Instruct to notify physician/RN if weight gain is 2 pounds or more in 1 day, or 5 p ounds or more in 1 week. Problem:Knowledge deficit Goal:Demonstrate adequate knowledge of follow-up care Performed Measure Edema Description: Measure abdominal girth at umbilicus and if any lower extremity edema exists - measure calf, ankle, and pedal as needed. Problem:Fluid Retention - CHF Goal:Demonstrate compliance with fluid retention interventions Performed Instruct on edema Description: Teach patient to keep edematous extremities elevated above the level of the heart, to avoid crossing of the legs, and on the proper application of LIUDMILA hose. Instruct on diuretic therapy. Problem:Fluid Retention - CHF Goal:Demonstrate compliance with fluid retention interventions Performed Instruct diet Description: Instruct patient/caregiver on low sodium diet. Restrict sodium. Instruct patient/caregiver to reduce sodium by 500 milligrams per day if weight begins to increase, on tips to limit sodium (avoiding foods high in sodium, getting rid of salt shaker, using herbs/spices, using fresh foods, avoiding salt substitutes which may contain potassium, buying foods labeled low-sodium or sodium free), reading food labels, and making changes slowly to give taste buds time to adjust. Problem:Fluid Retention - CHF Goal:Demonstrate compliance with fluid retention interventions Performed Encouraged patient to watch salt intake. Notify physician Description: Instruct patient/caregiver on how to identify abnormal readings and when it is appropriate/necessary to contact physician, or when to call 911. Problem:Fluid Retention - CHF Goal:Demonstrate compliance with fluid retention interventions Performed Instruct daily log Description: SN to develop weight diary for patient to record daily readings. Instruct patient to monitor and record weight on daily log. Notify home care agency/physician if weight gain of 3 pounds in one day or 5 pounds in one week. Problem:Fluid Retention - CHF Goal:Demonstrate compliance with fluid retention interventions Performed Patient stated she used to do the weighing but that she has been loosing so much weight recently she has stopped. Educated patient on reason why she should continue to monitor even though she has been loosing weight. Patient stated understanding. documented in this encounter Care Teams Nurse Receptionist Relationship Specialty Start Date End Date Addie Moore NP [address] [place] [address] PCP - General Family Medicine 09/20/24 Louisa Anderson MD [address] [place] [address] Consulting Physician Cardiovascular Disease 09/09/21 Juan Luis Fritz MD [address] [place] [address] Consulting Physician Nephrology 09/09/21 Joshua Motley MD [address] [place] [address] Referring Physician Nephrology 02/15/22 Wily Tolbert RN [address] [place] [address] [address] [place] [address] [employer] Whe[employer] Axle Inspector 04/30/24 documented as of this encounter
[2025-02-20] VITALS (17 sets, daily range): BP systolic 141–220; BP diastolic 36–60; PULSE 86–104; RESP 16–25; TEMP 36.3–37.1; O2SAT 92–100; BMI 18.3
--- NOTE | ~2025-02-20 | XR_ITS ---
XR lumbar spine 2-3V Indication: fall Comparison: None Findings: Dextroconvex scoliosis. Grade 1 anterolisthesis of L4 on L5. No acute fracture. Moderate loss of disc at L4-5 and L5-S1. Soft tissues unremarkable Impression: No acute abnormality. Reviewed, dictated and finalized at location [facility] Impression: No acute abnormality.
--- NOTE | ~2025-02-20 | XR_ITS ---
EXAMINATION: XR chest 2V, 02/20/2025 8:55 [facility] HISTORY: WEAKNESS COMPARISON: No comparisons available. Technique: 2 views obtained. Findings: Small right basilar infiltrate and effusion. Scattered small infiltrates noted of the right upper and left lower lobes. No pneumothorax. Moderate cardiomegaly. Mediastinal and hilar contours are within normal limits. Bony thorax no acute abnormality. Impression: CHF superimposed probable pneumonia. The findings appear relatively unchanged compared to the previous study 01/26/2025 Reviewed, dictated and finalized at location [facility]. [facility] Impression: CHF superimposed probable pneumonia. The findings appear relatively unchanged c ompared to the previous study 01/26/2025
--- NOTE | 2025-02-20 07:39 | ECG_ITS ---
Test Date: 2025-02-20 07:49:08 Measurements Intervals [place] Rate: 80 P: 75 [place]: 159 QRS: 47 QRSD: 76 T: 69 QT: 394 QTc: 457 Interpretive Statements SINUS RHYTHM POSSIBLE LEFT ATRIAL ENLARGEMENT [-0.1mV P-WAVE IN V1/V2] ST DEPRESSIONS, CONSIDER LATERAL ISCHEMIA Compared to ECG 02/19/2025 16:49:23 SIMILAR TO PREVIOUS Electronically Signed On 02-20-2025 13:18:23 CONTROL SYSTEMS DRAFTING OFFICER by Vaughn Saldaña M.D.
--- NOTE | 2025-02-20 07:51 | ECG_ITS ---
Test Date: 2025-02-20 07:51:05 Measurements Intervals [place] Rate: 80 P: 76 [place]: 154 QRS: 51 QRSD: 82 T: 85 QT: 407 QTc: 472 Interpretive Statements SINUS RHYTHM ST DEPRESSIONS, CONSIDER OF LATERAL ISCHEMIA Compared to ECG 02/20/2025 07:49:08 No significant changes Electronically Signed On 02-20-2025 13:18:40 SCREW MACHINE OPERATOR by Vaughn Saldaña M.D.
[2025-02-20 08:25] LABS: Immature Granulocyte Percent A 0.7 % (0-0.5); Lymphocytes Absolute Auto 0.41 K/mm3 (0.9-3.2); Mean Corpuscular HGB Conc 32.5 g/dl (32-36); Mean Corpuscular Hemoglobin 28.6 pg (26-34); Mean Corpuscular Volume 87.8 fl (80-100); Nucleated Red Blood Cells Absolute Auto 0.000 K/mm3 (0.0-0.012); Nucleated Red Blood Cells Perc 0.0 % (0.0-0.2); Platelet Count Result 129 k/mm3 (150-375); Red Blood Count 1.89 M/mm3 (4.2-5.4); White Blood Count 6.0 K/mm3 (4.5-10.0)
[2025-02-20 08:27] LABS: Hematocrit 16.6 % (37.0-47.0); Hemoglobin 5.4 g/dL (12.0-15.0)
[2025-02-20 08:38] LABS: Alanine Aminotransferase 11 U/L (6-35); Albumin Level 3.4 g/dL (3.5-5.1); Alkaline Phosphatase 84 U/L (38-126); Anion Gap 7 mmol/L (4-12); Aspartate Amino Transferase 24 U/L (14-36); Bilirubin,Total 0.3 mg/dL (0.2-1.3); Blood Urea Nitrogen 52 mg/dL (7-17); Calcium 8.4 mg/dL (8.4-10.2); Carbon Dioxide 28 mmol/L (22-30); Chloride 99 mmol/L (98-107); Estimated Glomerular Filt Rate 12; Glucose 81 mg/dL (65-110); Potassium 4.1 mmol/L (3.4-5.0); Sodium 134 mmol/L (137-145); Total Protein 6.5 g/dL (6.3-8.2)
--- OUTSIDE RECORDS SUMMARY | 2025-02-20 08:49 | XMS_ITS | Clinical Summary ---
Author Organization [facility] [address] Address [address] [place] [address] Care Team Providers Care Passenger Car Conductor Name Role Phone Louisa Anderson MD Unavailable Juan Luis Fritz MD Unavailable [phone] Joshua Motley MD Unavailable [phone] Wily Tolbert RN Unavailable Addie Moore NP Primary Care Provider [phone] Allergies Active Allergy Reactions Criticality Noted Date [...] day as needed (swelling) 04/14/19 24 Active Additional Information Patient not taking.Reported on 02/13/2025 carvediloL (COREG) 25 mg tablet Take 1 tablet (25 mg total) by mouth 2 (two) times a day with meals 11/11/19 24 Active inhalational spacing device spacer Use with albuterol inhaler every 4 hours as needed for shortness of breath 1 each 11/16/19 24 Active albuterol HFA (PROVENTIL HFA,VENTOLIN HFA,PROAIR HFA) 90 mcg/actuation inhaler INHALE 2 PUFFS BY MOUTH EVERY 6 HOURS NEEDED FOR SHORTNESS OF BREATH 8.5 each 1 05/12/19 25 Active lisinopriL (PRINIVIL,ZESTR IL) 40 mg tablet Take 1 tablet (40 mg total) by mouth daily 08/26/19 25 Active NIFEdipine CC 60 mg 24 hr tablet Take 1 tablet (60 mg total) by mouth daily 08/25/19 25 Active atorvastatin (LIPITOR) 80 mg tablet Take 1 tablet (80 mg total) by mouth nightly 90 tablet 3 08/28/19 25 026 Active ticagrelor (BRILINTA) 90 mg tablet Take 1 tablet (90 mg total) by mouth 2 (two) times a day 60 tablet 11 08/28/19 25 Active melatonin tablet TAKE 1 TABLET BY MOUTH EVERY DAY AT BEDTIME NEEDED FOR SLEEP 30 tablet 1 12/12/19 25 Active isosorbide mononitrate ER (IMDUR) 30 mg 24 hr tablet TAKE 1 TABLET BY MOUTH EVERY DAY BEFORE BREAKFAST 90 tablet 1 12/14/19 25 Active folic acid (FOLVITE) 1 mg tablet Take 1 tablet (1 mg total) by mouth 01/28/20 25 Active omeprazole (PriLOSEC) 40 mg capsule TAKE 1 CAPSULE BY MOUTH EVERY DAY BEFORE BREAKFAST 30 capsule 2 02/02/20 25 Active traZODone (DESYREL) 50 mg tablet TAKE 1 TABLET BY MOUTH EVERYDAY AT BEDTIME 30 tablet 2 02/02/20 25 Active losartan (COZAAR) 25 mg tablet Take 25 mg by mouth daily 022 Discontinued traZODone (DESYREL) 50 mg tablet TAKE 1 TABLET BY MOUTH EVERYDAY AT BEDTIME 30 tablet 2 11/10/19 25 025 Discontinued omeprazole (PriLOSEC) 40 mg capsule TAKE 1 CAPSULE BY MOUTH EVERY DAY BEFORE BREAKFAST 30 capsule 2 11/10/19 25 025 Discontinued Active Problems Problem Noted Date Diagnosed Date Other specified anemias 02/13/2025 Assessment & Plan (02/13/2025 5:34 PM CHUTE BUILDER): Given previous history of coronary and peripheral artery stentings and history of heart failure, will need to be cleared by yield improvement engineer and vascular surgery prior to endoscopies will be safe in the setting. Will obtain records from previous upper endoscopies and colonoscopies by Dr. Badillo/ office [facility] Will request laboratory tests from Dr. Motley office as regards to recent CBC, patient declined any repeat tests including Iron studies, CBC or other blood tests Return to office in 2 to 4 weeks CAD (coronary artery disease) 02/13/2025 Assessment & Plan (02/13/2025 5:29 PM CHUTE BUILDER): Given recent new pleural effusion requiring thoracentesis and history of CAD s/p stenting of coronary arteries on Brilinta, recommend cardiology clearance as regarding holding Brilinta prior and immediately post endoscopic procedures in addition to cardiology clearance (hx of CHF). Insomnia 11/15/2024 Assessment & Plan (11/15/2024 2:00 PM CDT): Hospital discharge follow-up 08/15/2024 Assessment & Plan (01/30/2025 2:01 PM CDT): Orders: Ambulatory referral to Home Health; Future Assessment & Plan (08/15/2024 9:29 AM CDT): Doing well today. No further symptoms. We're calling [facility] for ER records. No medication changes. Follow up as scheduled. Medicare annual wellness visit, subsequent 05/02 Assessment & Plan (05/02/2024 9:21 AM CHUTE BUILDER): -Recommended: Healthy diet. Avoiding junk food/fast food. [...] needed Assessment & Plan (05/02/2023 10:59 AM CHUTE BUILDER): Patient Counseling: --Nutrition: Stressed importance of moderation [...] 08/2021 Assessment & Plan (05/02/2024 9:29 AM CHUTE BUILDER): Has albuterol inhaler to use prn. She [...] this month where she ended up in [facility] for 2 days with a COPD exacerbation. She was treated with IV Solu-Medrol and nebulizers. She was given prednisone and Levaquin upon discharge but states that she read side effects and threw away 1 of the prescriptions. I think it was the prednisone but I am not sure. Assessment & Plan (04/14/2023 8:31 PM CHUTE BUILDER): Not currently on any medications. Denies any difficulty with shortness of breath. Not currently a smoker. ESRD on dialysis 02/18/2022 Assessment & Plan (11/15/2024 1:31 PM CDT): Assessment & Plan (05/02/2024 9:26 AM CHUTE BUILDER): Stable. Continues on dialysis 3 times weekly. Doing well today. States she has some bad days, but doing well Assessment & Plan (10/31/2023 10:01 AM CDT): Stable. Continues on dialysis 3 times weekly. I encouraged her to talk to her hospital receiving clerk about the increased swelling in her ankles as well. Assessment & Plan (05/02/2023 11:02 AM CHUTE BUILDER): Continues on dialysis 3 times week. Patient is considering moving to [place]. She is aware she has to set up health care before moving. She is considering moving into assisted living up there. She is currently on a waiting list Assessment & Plan (04/14/2023 8:30 PM CHUTE BUILDER): Currently on dialysis. Dr. Motley. 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 Stable. Blood pressure within [...] October Assessment & Plan (06/05/2023 6:05 PM CHUTE BUILDER): Continue all medications. Start lisinopril 20 mg once daily Assessment & Plan (05/02/2023 11:04 AM CHUTE BUILDER): Blood pressure is improved today and is not hypotensive. Will continue current medication and continue to monitor. Assessment & Plan (04/14/2023 8:25 PM CHUTE BUILDER): Apparently long history of hypertension. ON multiple antihypertensive medications and now on dialysis. However, she is also on entresto. Blood pressure is low today. Asymptomatic. Will try discontinuing nifedipine for the hypotension and keep her on all other medication, which we spend a considerable amount of time on reconciling and discussing. I asked her to also run this change by her hospital receiving clerk. 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 No signs of acute heart failure. Last echo 04/2023 with EF 72% Assessment & Plan (11/16/2023 8:38 PM CDT): I think she had some fluid overload which may have improved with dialysis, and thus her shortness of breath improved. Her hospital receiving clerk also increased her coreg to 25mg bid. [...] for evaluation. I would place referral to [facility] back in April but did not see any follow-up or scheduling for that referral Assessment & Plan (06/05/2023 6:05 PM CHUTE BUILDER): Improved. Discontinue Entresto. Start lisinopril 20 mg once daily. We discussed this with her in detail and why we are starting lisinopril and why it is important to stay on all of her other medications. Assessment & Plan (04/14/2023 8:27 PM CHUTE BUILDER): Reviewed last heart cath and last echo done in 08/2021. Echo 08/30: Conclusions: LIMITED STUDY FOR ASSESSMENT OF LV FUNCTION. Normal left ventricular systolic function with no focal wall motion abnormalities. Mild concentric left ventricular hypertrophy. Reduced left ventricular cavity size. Ejection fraction is measured at 50-60 %. Will order repeat echo and refer to cardiology. Currently on entresto. Peripheral vascular disease 10/15/2020 Assessment & Plan (02/13/2025 5:31 PM CHUTE BUILDER): Will need clearance for vascular surgery as regards to holding Brilinta prior to endoscopic procedures Resolved Problems Problem Noted Date Diagnosed Date Resolved Date Hospital discharge follow-up 03/20/2024 05/02/2024 Assessment & Plan (03/20/2024 7:31 AM CHUTE BUILDER): Medication review done. Patient discharge instructions from [facility] show her still on atorvastatin 80mg and [...] his office , nephrology at [facility] to discuss med rec. Headache 04/27/2023 05/02/2024 Moderate malnutrition 09/03/20212023 Leg edema 05/05/2021 05/02/2024 Recurrent pleural effusion on right 02/11/2021 04/14/2023 Ischemic cardiomyopathy 10/15/2020/05/2023 Assessment & Plan (05/02/2023 11:05 AM CHUTE BUILDER): History of ischeic cardiomyopathy. We had ordered a repeat echocardiography at last office visit. She now has it scheduled at [facility] Cardiovascular stress test abnormal 10/15/2020 05/02/2024 Chronic kidney disease 10/15/202004/14 Encounters Date Type Department Care Team Description 02/14/2025 Orders Only [facility] Medical [facility] [place] [address] Addie Moore NP Chronic combined systolic and diastolic heart failure (HCC) (Primary Dx); Peripheral vascular disease; Coronary artery disease involving poarch coronary artery of poarch heart without angina pectoris 02/14/2025 Telephone [facility] Gastroenterology at [address] [address] Omaira Akbar MD 02/13/2025 10:00 AM CHUTE BUILDER Office Visit [facility] Gastroenterology at [address] [address] Omaira Akbar MD Anemia due to other cause, not classified (Primary Dx); ESRD on dialysis; Chronic combined systolic and diastolic heart failure (HCC); Peripheral vascular disease; Coronary artery disease involving poarch coronary artery of poarch heart without angina pectoris 02/13/2025 Results Follow-Up [facility] Primary Care at [address] [address] Addie Moore NP MRI Brain WO Contrast 02/11/2025 7:34 AM CHUTE BUILDER - 02/11/2025 11:59 PM CHUTE BUILDER Hospital Encounter [address] [address] Confusion Discharge Disposition: Discharge to home or self care 02/08/2025 12:30 PM CDT Home Care Visit [address] [address] [address] [place] [address] Wily Mayfield RN SN HOME VISIT 02/07/2025 Home Care Visit [address] [place] [address] Sanford Knapp, [facility] CASE COMMUNICATION 02/06/2025 1:30 PM CDT Home Care Visit [address] [place] [address] Ingrid Sosa, PT PT INITIAL EVALUATION 02/06/2025 10:00 AM CDT Home Care Visit [address] [place] [address] Sanford Knapp, [facility] SPECIAL EVENTS DIRECTOR INITIAL EVAL 02/05/2025 Home Care Visit [address] [place] [address] Sanford Knapp, FLAT SORTING MACHINE CLERK CASE COMMUNICATION 02/05/2025 Home Care Visit [address] [place] [address] Wily Mayfield, RN CASE COMMUNICATION 02/04/2025 Home Care Visit [address] [place] [address] Sanford Knapp, [facility] CASE COMMUNICATION 02/04/2025 Home Care Visit [address] [place] [address] Sanford Knapp, FLAT SORTING MACHINE CLERK CASE COMMUNICATION 02/03/2025 9:30 AM CDT Home Care Visit [address] [place] [address] Wily Mayfield, RN SN OASIS START OF CARE 02/03/2025 Plan of Care Documentation [address] [place] [address] 01/31/[address] [place] [address] Ariana Isidro RN 01/31/2025 Travel 01/30/2025 1:00 PM CDT Office Visit [facility] Primary Care at [address] [phone] Addie Moore NP Acute blood loss anemia (Primary Dx); Confusion; Weakness; Hospital discharge follow-up 01/29/2025 Telephone [facility] Primary Care at [address] [address] Addie Moore, [employer] LUIS Questions 11/27/2024 Telephone [facility] Primary Care at [address] [address] Addie Moore, [employer] UN[employer] FOOTBALLER 11/26/2024 Telephone [facility] Primary Care at [address] [address] Addie Moore, [employer] FOOTB[employer]ER 11/23/2024 Nurse Triage [facility] Primary Care at [address] [address] Addie Moore NP ESRD on dialysis (Primary Dx); Essential hypertension; Medication management from Last 3 Months Immunizations Immunization Administration Dates Next Due COVID-19 MRNA (MODERNA) .5 M L (50 MCG) VACCINE (12 YEARS AND UP) 01/05/2023 Covaxin Sars-cov-2 Vaccination 01/20/2021,2020,06/18/2020 Influenza, Quadrivalent, Hig h Dose, Preservative Free, Intrr 01/05/2023,12/23/2021 Influenza, Quadrivalent, Rec ombinant, Egg Free, Preservative Free, Intramuscular 01/13/2021 Influenza, Quadrivalent, Spl it, Intramuscular 01/13/2021 Influenza, Quadrivalent, Spl it, Preservative Free, Intramuscular 01/13/2021 Influenza, Trivalent, High D ose, Split, Preservative Free, Intramuscular 12/18/2023 Influenza, Unspecified 02/07/2024,2022,12/23/2021,11/14,11/07/2012 PPD TEST 01/15/2025,11/29/2023,11/16/2022 Pfizer SARS-CoV-2 Monovalent Vaccination (12+ Yrs) PURPLE [...] failure (ARF) COPD (chronic obstructive pulmonary disease) CHF (congestive heart failure) (HCC) Hemodialysis patient [...] materials from doctor or pharmacy Sometimes 02/03/2025 [facility] Utilities Answer Date Recorded In the past 12 months has th e [employer], oil, or water [id number] threatened to shut off services in your [...] How often do you attend chur or buddhism services? Never 04/20/2024 Do you belong to any clubs o r organizations such as mormon groups, unions, fraternal or athletic groups, or [...] any time in the past 12 m [facility], were you homeless or living [...] Sign Reading Time Taken Comments Blood Pressure 146/60 02/13/2025 10:03 AM CHUTE BUILDER Pulse 76 02/13/2025 10:03 AM CHUTE BUILDER Temperature 36.4 C (97.6 F) 02/08/2025 12:22 PM CDT Respiratory Rate 18 02/08/2025 12:22 PM CDT Oxygen Saturation 96% 02/13/2025 10:03 AM CHUTE BUILDER Inhaled Oxygen Concentration - - Weight 39 kg (86 lb) 02/13/2025 10:03 AM CHUTE BUILDER Height 157.5 cm (5' 2) 02/13/2025 10:03 AM CHUTE BUILDER Body Mass Index 15.73 02/13/2025 10:03 AM CHUTE BUILDER Plan of Treatment Health Maintenance Due Date Last Done Comments DTaP/Tdap/Td Vaccine (1 - Tdap) [birth year]01/1957 Zoster Vaccine (1 of 2) 1994 Covid-19 Vaccine ( season) 2024 12/18/2023, 01/05/2023, 01/05/2023, Additional history exists Influenza Vaccine (#1) 2024 , 12/18/2023, 01/05/2023, Additional history exists Fall Risk Assessment 05/02/2025 05/02/2024, 11/16/2023, 10/31/2023, Additional history exists Osteoporosis Screening-Bone Density Scan 05/02/2025 Postponed from 1944 (Patient declined, but will receive in the future) Well Visit 65+ 05/02/2025 05/02/2024, 04/27/2023 Depression Screening 11/15/2025 11/15/2024, 08/15/2024, 05/02/2024, Additional history exists Hepatitis B Screening Completed 09/04/2021 Pneumococcal vaccine 65+ Completed 05/02/2024 Medical Devices Implanted Type Area Soubrette Device Identifier Shelf Expiration Date Model / Serial / Lot [employer] Casselberry Intering 4-7mm 45cm 38cm Radial Support Stretch Line [id number] - [id number] - [id number] Implanted:Qty: 1 on 03/03/2022 by David Drummond MD at [facility] Graft Left: Arm [employer] [id number] 05/11/2026 [id number] / [id number] / Description:AV fistula graft [employer] Synergy Xd Monorail 3mm 12mm 144cm Delivery System 1 Access Port [id number] - [id number] Implanted:Qty: 1 on 09/02/2021 by Claudio Nelson MD at [facility] Stent [employer] Indra [id number] / / [employer] Synergy Xd 3.5mm 48mm System Coronary Stent Everol[employer] [id number] - [id number] Implanted:Qty: 1 on 09/02/2021 by Claudio Nelson MD at [facility] Stent [employer] Indra [id number] / / Description:Mid RCA [employer] Synergy Xd Monorail 3mm 38mm 144cm Delivery System 1 Access Port [id number] - [id number] Implanted:Qty: 1 on 09/02/2021 by Claudio Nelson MD at [facility] Stent [employer] [id number] / / Description:Distal RCA betwe en stents [employer] Synergy Xd Monorail 3.5mm 12mm 144cm Delivery System 1 Access [id number] - [id number] Implanted:Qty: 1 on 09/02/2021 by Claudio Nelson MD at [facility] Stent [employer] Indra [id number] / / Description: Static magnetic field of 3.0 Shell and 1.5 Shell only Maximum spatial gradient magnetic field of 2300 gauss/cm (23 T/m) Maximum Magnetic Resonance system reported, whole body averaged specific absorption rate (BRAYAN) of <=2 W/kg (Normal Operating Mode) Scanner Type: Horizontal, Cylindrical bore RF Excitation: CP (Circular Polarization) 90 RF Transmit/ Receive Coil Type: Integrated Whole-Body Transmit/Receive Coil Scan Duration: Up to 15 minutes of continuous RF (a sequence or [id number] series/ scan without breaks), followed by 5 minutes of cooling. [employer] Vasc[employer] Safesheath D-Pro 15.5fr 24cm Kit Catheter [id number] - [id number] Implanted:Qty: 1 on 09/04/2021 at [facility] [employer] 09/09/2023 [id number] / / [id number] Procedures Procedure Name Priority Date/Time Associated Diagnosis Comments MRI BRAIN WO CONTRAST Schedule Routine, Read Routine (OP Routine) 02/11/2025 8:20 AM CHUTE BUILDER Confusion XR CHEST 1 VIEW Schedule Routine, Read Routine (OP Routine) 01/24/2025 CT CHEST WO CONTRAST Schedule Routine, Read Routine (OP Routine) 01/24/2025 from Last 3 Months Results * MRI Brain WO Contrast (02/11/2025 8:20 AM CHUTE BUILDER) Anatomical Region Laterality Modality Head and Neck N/A Magnetic Resonan ce 02/11/2025 9:42 AM CHUTE BUILDER Impressions 02/11/2025 9:42 AM CHUTE BUILDER 1. No acute infarction. 2. Chronic infarctions, chronic microvascular ischemic-type white matter changes and other findings as above. 3. The right parietal T2/FLAIR hyperintense signal could be additional small chronic infarction. If previous MRI is not available to demonstrate stability then recommend a complete pre and post with MRI to exclude parenchymal edema. 4. Right maxillary sinus is completely opacified. Extension of similar signal towards the right nasal cavity. Please correlate with direct visualization to exclude underlying polypoid mass. 5. Previous imaging studies are not available for comparison. Electronically signed by: Georges Espinoza D.O. Narrative 02/11/2025 9:42 AM CHUTE BUILDER EXAM DESCRIPTION:MRI BRAIN WO CONTRAST REASON FOR STUDY:Confusion, mental status change. Mental status change, unknown cause TECHNIQUE: Multiplanar imaging includes non-contrasted T1, T2, FLAIR, and diffusion with ADC map sequences. Additional sequence(s) sensitive to blood products. Images stored on PACS. COMPARISON:None available FINDINGS: There is no diffusion restriction to suggest acute/recent infarction. The bilateral basal ganglia susceptibility signal will be compatible with mineralization. There is bilateral cerebral and cerebellar parenchymal volume loss. No hydrocephalus. The basilar cisterns are maintained. Right carotid artery and left basal ganglia small chronic infarctions. The right parietal cortical/subcortical T2/FLAIR hyperintense signal (series 6001, image 18) could be additional small chronic infarction in the proper clinical scenario. If previous MRI is not available to demonstrate stability then recommend a short interval repeat complete pre and postcontrast MRI. Elsewhere in the brain the subcortical and periventricular white matter T2/FLAIR hyperintense signal in the bilateral cerebral hemispheres is nonspecific but compatible with chronic microvascular ischemic-type change in a patient of this age. Bilateral cataract eye surgeries. Mucosal thickening in the bilateral ethmoid air cells and left maxillary sinus. Right sphenoid sinus polypoid mucosal thickening. Right maxillary sinus is completely opacified with central relative T2 hypointense, T1 intermediate signal. There is extension of similar signal towards the right nasal cavity (series [id number]). Trace T2 hyperintensities in the bilateral mastoid air cells. Degenerative changes in the imaged upper cervical spine with spinal canal stenosis. Dedicated imaging can be obtained as clinically indicated. Procedure Note Georges Espinoza, DO - 02/11/2025 EXAM DESCRIPTION:MRI BRAIN WO CONTRAST REASON FOR STUDY:Confusion, mental status change. Mental status change, unknown cause TECHNIQUE: Multiplanar imaging includes non-contrasted T1, T2, FLAIR, and diffusion with ADC map sequences. Additional sequence(s) sensitive to blood products. Images stored on PACS. COMPARISON:None available FINDINGS: There is no diffusion restriction to suggest acute/recent infarction. The bilateral basal ganglia susceptibility signal will be compatible with mineralization. There is bilateral cerebral and cerebellar parenchymal volume loss. No hydrocephalus. The basilar cisterns are maintained. Right carotid artery and left basal ganglia small chronic infarctions. The right parietal cortical/subcortical T2/FLAIR hyperintense signal (series 6001, image 18) could be additional small chronic infarction in the proper clinical scenario. If previous MRI is not available to demonstrate stability then recommend a short interval repeat complete pre and postcontrast MRI. Elsewhere in the brain the subcortical and periventricular white matter T2/FLAIR hyperintense signal in the bilateral cerebral hemispheres is nonspecific but compatible with chronic microvascular ischemic-type change in a patient of this age. Bilateral cataract eye surgeries. Mucosal thickening in the bilateral ethmoid air cells and left maxillary sinus. Right sphenoid sinus polypoid mucosal thickening. Right maxillary sinus is completely opacified with central relative T2 hypointense, T1 intermediate signal. There is extension of similar signal towards the right nasal cavity (series 49762). Trace T2 hyperintensities in the bilateral mastoid air cells. Degenerative changes in the imaged upper cervical spine with spinal canal stenosis. Dedicated imaging can be obtained as clinically indicated. IMPRESSION: 1. No acute infarction. 2. Chronic infarctions, chronic microvascular ischemic-type white matter changes and other findings as above. 3. The right parietal T2/FLAIR hyperintense signal could be additional small chronic infarction. If previous MRI is not available to demonstrate stability then recommend a complete pre and post with MRI to exclude parenchymal edema. 4. Right maxillary sinus is completely opacified. Extension of similar signal towards the right nasal cavity. Please correlate with direct visualization to exclude underlying polypoid mass. 5. Previous imaging studies are not available for comparison. Electronically signed by: Georges Espinoza D.O. Addie Moore NP IMG MRI PROCEDURES Final Resu lt * XR Chest 1 View (01/24/2025) Anatomical Region Laterality Modality Body, Chest N/A Radiographic Dara ging Historical Provider IMG XR PROCEDURES Final R esult * CT Chest WO Contrast (01/24/2025) Anatomical Region Laterality Modality Body N/A Computed Tomogra phy Historical Provider MD IMG CT PROCEDURES Final R esult from Last 3 Months Insurance [facility] FEDERAL MEDICARE MEDICARE [facility] FEDERAL [facility] FEDERAL MEDICARE Advance Directives For more information, please contact: [phone] * Full Code (Latest Code Status on File) Date Activated Date Inactivated Comments 05/19/2022 9:36 AM 05/20/2022 5:19 AM * Full Code Date Activated Date Inactivated Comments 08/25/2021 9:12 PM 09/09/2021 6:36 PM Healthcare Agents on File Name Relationship Healthcare Agent [facility] p Communication Al Tiffany Mckeon Health Care Agent Care Teams Passenger Car Conductor Relationship Specialty Start Date End Date Addie Moore NP [address] [facility] [address] [place] [address] PCP - General Family Medicine 09/20/24 Louisa Anderson MD [address] [place] [address] Consulting Physician Cardiovascular Disease 09/09/21 Juan Luis Fritz MD [address] [place] [address] Consulting Physician Nephrology 09/09/21 Joshua Motley MD [address] [place] [address] Referring Physician Nephrology 02/15/22 Wily Tolbert, JOHNSON [address] [place] [address] [address] [place] [address] Reefer Engineer 04/30/24
--- OUTSIDE RECORDS SUMMARY | 2025-02-20 08:50 | XMS_ITS ---
Author Organization [facility] [address] Address [address] [place] [address] Care Team Providers Care Shoe Cutter Name Role Phone Louisa Anderson MD Unavailable Juan Luis Fritz MD Unavailable [phone] Joshua Motley MD Unavailable [phone] Wily Tolbert RN Unavailable [phone] Addie Moore NP Primary Care Provider [phone] Dialysis Access Sites Type Status Location Placement [...] Read Routine (OP Routine) 02/11/2025 8:20 AM MANAGER PROGRAM MANAGEMENT Confusion XR CHEST 1 VIEW Schedule Routine, Read Routine (OP Routine) 01/24/2025 CT CHEST WO CONTRAST Schedule Routine, Read Routine (OP Routine) 01/24/2025 from Last 3 Months Allergies Active Allergy [...] 02/13/2025 Assessment & Plan (02/13/2025 5:34 PM MANAGER PROGRAM MANAGEMENT): Given previous history of coronary and peripheral artery stentings and history of heart failure, will need to be cleared by specialty plant supervisor and vascular surgery prior to endoscopies will be safe in the setting. Will obtain records from previous upper endoscopies and colonoscopies by Dr. Badillo/ [facility] Will request laboratory tests from Dr. Motley office as regards to recent CBC, patient declined any repeat tests including Iron studies, CBC or other blood tests Return to office in 2 to 4 weeks CAD (coronary artery disease) 02/13/2025 Assessment & Plan (02/13/2025 5:29 PM MANAGER PROGRAM MANAGEMENT): Given recent new pleural effusion requiring thoracentesis [...] well today. No further symptoms. We're calling [place] for ER records. No medication changes. Follow up as scheduled. Medicare annual wellness visit, subsequent 05/02 Assessment & Plan (05/02/2024 9:21 AM MANAGER PROGRAM MANAGEMENT): -Recommended: Healthy diet. Avoiding junk food/fast food. [...] needed Assessment & Plan (05/02/2023 10:59 AM MANAGER PROGRAM MANAGEMENT): Patient Counseling: --Nutrition: Stressed importance of moderation [...] 08/2021 Assessment & Plan (05/02/2024 9:29 AM MANAGER PROGRAM MANAGEMENT): Has albuterol inhaler to use prn. She [...] this month where she ended up in [facility] for 2 days with a COPD exacerbation. She was treated with IV Solu-Medrol and nebulizers. She was given prednisone and Levaquin upon discharge but states that she read side effects and threw away 1 of the prescriptions. I think it was the prednisone but I am not sure. Assessment & Plan (04/14/2023 8:31 PM MANAGER PROGRAM MANAGEMENT): Not currently on any medications. Denies any difficulty with shortness of breath. Not currently a smoker. ESRD on dialysis 02/18/2022 Assessment & Plan (11/15/2024 1:31 PM CDT): Assessment & Plan (05/02/2024 9:26 AM MANAGER PROGRAM MANAGEMENT): Stable. Continues on dialysis 3 times weekly. Doing well today. States she has some bad days, but doing well Assessment & Plan (10/31/2023 10:01 AM CDT): Stable. Continues on dialysis 3 times weekly. I encouraged her to talk to her benzene still utility operator about the increased swelling in her ankles as well. Assessment & Plan (05/02/2023 11:02 AM MANAGER PROGRAM MANAGEMENT): Continues on dialysis 3 times week. Patient is considering moving to [place]. She is aware she has to set up health care before moving. She is considering moving into assisted living up there. She is currently on a waiting list Assessment & Plan (04/14/2023 8:30 PM MANAGER PROGRAM MANAGEMENT): Currently on dialysis. Dr. Motley. 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 Stable. Blood pressure within [...] October Assessment & Plan (06/05/2023 6:05 PM MANAGER PROGRAM MANAGEMENT): Continue all medications. Start lisinopril 20 mg once daily Assessment & Plan (05/02/2023 11:04 AM MANAGER PROGRAM MANAGEMENT): Blood pressure is improved today and is not hypotensive. Will continue current medication and continue to monitor. Assessment & Plan (04/14/2023 8:25 PM MANAGER PROGRAM MANAGEMENT): Apparently long history of hypertension. ON multiple antihypertensive medications and now on dialysis. However, she is also on entresto. Blood pressure is low today. Asymptomatic. Will try discontinuing nifedipine for the hypotension and keep her on all other medication, which we spend a considerable amount of time on reconciling and discussing. I asked her to also run this change by her benzene still utility operator. Will be referring to cardiology as well Chronic combined systolic and diastolic heart fa ilure 10/15/2020 Assessment & Plan (05/02/2024 9:28 AM MANAGER PROGRAM MANAGEMENT): Improved. No signs of acute heart failure. Last echo 04/2023 with EF 72% Assessment & Plan (11/16/2023 8:38 PM CDT): I think she had some fluid overload which may have improved with dialysis, and thus her shortness of breath improved. Her benzene still utility operator also increased her coreg to 25mg [...] for evaluation. I would place referral to [facility] back in April but did not see any follow-up or scheduling for that referral Assessment & Plan (06/05/2023 6:05 PM MANAGER PROGRAM MANAGEMENT): Improved. Discontinue Entresto. Start lisinopril 20 mg once daily. We discussed this with her in detail and why we are starting lisinopril and why it is important to stay on all of her other medications. Assessment & Plan (04/14/2023 8:27 PM MANAGER PROGRAM MANAGEMENT): Reviewed last heart cath and last echo [...] 10/15/2020 Assessment & Plan (02/13/2025 5:31 PM MANAGER PROGRAM MANAGEMENT): Will need clearance for vascular surgery as regards to holding Brilinta prior to endoscopic procedures Immunizations Immunization Administration Dates Next Due COVID-19 [...] materials from doctor or pharmacy Sometimes 02/03/2025 [facility] Utilities Answer Date Recorded In the past 12 months has th e [employer], [employer], oil, or water [employer] threatened to shut off services in your [...] week 04/20/2024 How often do you attend [facility] or adventism services? Never 04/20/2024 Do you belong to [...] time in the past 12 m [facility], were you homeless or living in [...] Comments Blood Pressure 146/60 02/13/2025 10:03 AM MANAGER PROGRAM MANAGEMENT Pulse 76 02/13/2025 10:03 AM MANAGER PROGRAM MANAGEMENT Temperature 36.4 C (97.6 F) 02/08/2025 12:22 PM CDT Respiratory Rate 18 02/08/2025 12:22 PM CDT Oxygen Saturation 96% 02/13/2025 10:03 AM MANAGER PROGRAM MANAGEMENT Inhaled Oxygen Concentration - - Weight 39 kg (86 lb) 02/13/2025 10:03 AM MANAGER PROGRAM MANAGEMENT Height 157.5 cm (5' 2) 02/13/2025 10:03 AM MANAGER PROGRAM MANAGEMENT Body Mass Index 15.73 02/13/2025 10:03 AM MANAGER PROGRAM MANAGEMENT Results * MRI Brain WO Contrast (02/11/2025 8:20 AM MANAGER PROGRAM MANAGEMENT) Anatomical Region Laterality Modality Head and Neck N/A Magnetic Resonan ce 02/11/2025 9:42 AM MANAGER PROGRAM MANAGEMENT Impressions 02/11/2025 9:42 AM MANAGER PROGRAM MANAGEMENT 1. No acute infarction. 2. Chronic infarctions, [...] Georges Espinoza D.O. Narrative 02/11/2025 9:42 AM MANAGER PROGRAM MANAGEMENT EXAM DESCRIPTION:MRI BRAIN WO CONTRAST REASON FOR [...] signal towards the right nasal cavity (series 24545). Trace T2 hyperintensities in the bilateral mastoid [...] signal towards the right nasal cavity (series [id number]). Trace T2 hyperintensities in the bilateral mastoid [...] Chest N/A Radiographic Dara ging Historical Provider MD LOWRY XR PROCEDURES Final R esult * CT Chest WO Contrast (01/24/2025) Anatomical Region Laterality Modality Body N/A Computed Tomogra phy Historical Provider IMBelen CT PROCEDURES Final R esult from Last 3 Months
--- OUTSIDE RECORDS SUMMARY | 2025-02-20 08:50 | XMS_ITS | Encounter Summary ---
Author Organization [facility] Healthcare Address [address] [place] [address] Care Team Prov[address] Care Ct Scan Technologist Name Role Phone Louisa Anderson MD Unavailable [phone] Juan Luis Fritz MD Unavailable [phone] Joshua Motley MD Unavailable [phone] Wily Tolbert RN Unavailable [phone] Addie Moore NP Primary Care Provider Reason for Visit * Reason Onset Date Comments LUIS Questions 01/29/2025 Encounter Details Date Type Department Care Team (Late st Contact Info) Description 01/29/2025 Telephone [facility] Primary Care at [address] [address] Addie Mooer NP [address] [place] [address] LUIS Questions Social History Tobacco Use Types Packs/Day Years Used Date Smoking Tobacco: Former Cigarettes Q uit: 10/01/2020 Smokeless Tobacco: Never Alcohol Use Standard Drinks/Week Comments Yes 0 (1 standard drink = 0.6 oz pur e alcohol) [facility] Utilities Answer Date Recorded [...] any clubs o r organizations such as worship groups, unions, fraternal or athletic groups, or [...] in the past 12 m [facility], were you homeless or living in a fci (including now)? No 04/20/2024 Personal Safety Answer Date Recorded Getting School Help Needed Denies 04/13 Comments No Sex and Gender Information Value Date Recorded Sex Assigned at Not on file Legal Sex Female 8:21 AM CDT Gender Identity Not on file Sexual Orientation Not on file documented as of this encounter Functional Status * BP Location Answer Date of Assessment Author Right arm 01/30/2025 1:21 PM CDT Bri Douglas MA * BP Location Answer Date of Assessment Author Right arm 01/30/2025 1:21 PM CDT Bri Douglas MA documented as of this encounter Miscellaneous Notes * Telephone Encounter - Dunia Sheehan MA - 01/29/2025 9:49 AM CDT LUIS Questions (Message from [facility]-Product Tester): Has patient been discharged at time of call? Yes Date Admitted: 01/23/25 Date Discharged: 01/27/25 Facility Admitted To: [facility] Reason for Stay? Patient having difficulty breathing If prescribed new medications, do you have any questions or concerns? no Do you have enough medication to get you to your follow-up appointment? Yes Since being released do you feel better, the same, or worse? Better Date of LUIS Appointment: 01/30/25 Do you have transportation to the appointment? yes Additional Comments: Patient only had 6 pints of blood in her when she arrived at the hospital. Does message need to be routed? Yes-FYI Only documented in this encounter Plan of Treatment Not on file documented as of this encounter Visit Diagnoses Not on filedocumented in this encounter Care Teams Ct Scan Technologist Relationship Specialty Start Date End Date Addie Moore NP [address] [facility] [address] [place] [address] PCP - General Family Medicine 09/20/24 Louisa Anderson MD [address] [place] [address] Consulting Physician Cardiovascular Disease 09/09/21 Juan Luis Fritz MD [address] [place] [address] Consulting Physician Nephrology 09/09/21 Joshua Motley MD [address] [place] [address] Referring Physician Nephrology 02/15/22 Wily Tolbert RN [address] [place] [address] [address] [place] [address] Paint Trimmer Pipe Bowls 04/30/24 documented as of this encounter
--- OUTSIDE RECORDS SUMMARY | 2025-02-20 08:50 | XMS_ITS | Encounter Summary ---
Author Organization [facility] Healthcare Address [address] [place] [address] Care Team Providers Care Collection Administrator Name Role Phone Louisa Anderson MD Unavailable Juan Luis Fritz MD Unavailable [phone] Joshua Motley MD Unavailable [phone] Wily Tolbert RN Unavailable [phone] Addie Moore NP Primary Care Provider Encounter Details Date Type Department Care Team (Late st Contact Info) Description 02/13/2025 Results Follow-Up [facility] Primary Care at [id number] [place] [address] Addie Moore NP [address] [place] [address] [address] [place] [address] MRI Brain WO Contrast Social History Tobacco Use Types Packs/Day Years [...] materials from doctor or pharmacy Sometimes 02/03/2025 [facility] Utilities Answer Date Recorded In the [...] often do you attend chur ch or uatsdin services? Never 04/20/2024 Do you belong to [...] Assessment Author Right arm 02/13/2025 10:03 AM REFERENCE DATA EXPERT Hema Gilbert MA * BP Location Answer Date of Assessment Author Right arm 02/13/2025 10:03 AM REFERENCE DATA EXPERT Hema Gilbert MA documented as of this encounter Miscellaneous Notes * Result Encounter Note - Kerri Grajeda MA - 02/18/2025 2:41 PM CST Called and spoke with the patient she verbally understood the results does not want to do any further testing at this time. I let Addie know that she does not want to proceed with another MRI. RENCE DATA EXPERT documented in this encounter Plan of Treatment Not on file documented as of this encounter Visit Diagnoses Not on filedocumented in this encounter Care Teams Collection Administrator Relationship Specialty Start Date End Date Addie Moore NP [address] [facility] [address] [place] [address] PCP - General Family Medicine 09/20/24 Louisa Anderson MD [address] [place] [address] Consulting Physician Cardiovascular Disease 09/09/21 Juan Luis Fritz MD [address] [place] [address] Consulting Physician Nephrology 09/09/21 Joshua Motley MD [address] [place] [address] Referring Physician Nephrology 02/15/22 Wily Tolbert RN [address] [place] [address] [address] [place] [address] Compensation Specialist 04/30/24 documented as of this encounter
[2025-02-20 08:52] LABS: Troponin I 0.040 ng/mL (0.000-0.034)
--- OUTSIDE RECORDS SUMMARY | 2025-02-20 08:52 | XMS_ITS | Encounter Summary ---
Author Organization [facility] Healthcare Address [address] [place] [address] Care Team Providers Care Treating Plant Supervisor Name Role Phone Louisa Anderson MD Unavailable [phone] Juan Luis Fritz MD Unavailable [phone] Joshua Motley MD Unavailable [phone] Wily Tolbert RN Unavailable [phone] Addie Moore NP Primary Care Provider Reason for Visit * Reason Onset Date Comments Confusion 11/23/2024 Encounter Details Date Type Department Care Team (Late st Contact Info) Description 11/23/2024 Nurse Triage [facility] Primary Care at [address] [address] Addie Moore NP [address] [place] [address] [address] [place] [address] ESRD on dialysis (Primary Dx); Essential hypertension; Medication management Social History Tobacco Use Types Packs/Day Years Used Date Smoking Tobacco: Former Cigarettes Q uit: 10/01/2020 Smokeless Tobacco: Never Alcohol Use Standard Drinks/Week Comments Yes 0 (1 standard drink = 0.6 oz pur e alcohol) [facility] Utilities Answer Date Recorded In the past 12 months has [employer], gas, oil, or water company threatened [...] often do you attend chur ch or mormon services? Never 04/20/2024 Do you belong to [...] time in the past 12 m [facility], were you homeless or living [...] encounter Miscellaneous Notes * Telephone Encounter - Bri Jacobo MA - 11/23/2024 4:29 PM CDT Lab orders in. Scheduled to come in on Tuesday. Let son know that she needs to go to the ER if seemsto get worse. * Telephone Encounter - Veda Swift RN - 11/23/2024 11:29 AM CDT Reason for Conversation Confusion Background Alina Allen son Dhaval Allen (HIPAA, with patient) reports since DIAMOND, increased confusion, forgetfulness, repeating herself. He feels this is a moderate increase since DI[place]. Ask for Al to put patient on phone, too. At first patient stated that she has not felt any different but after some discussion admitted that she has had increased forgetfulness and also that she feels tired all the time, that sheis almost 79 years old and doing the best that she can. Al states that patient has been turning the heat on in the home and patient denies recalling havingdone this. Advised Al to take a piece of tape, put it over the adjustment area on the thermostat and have patient look at it with him. Later if Al notices the tape has been moved, he can show it to the patient so that they both can see it. Outpatient hemodialysis. Patient dialyzes TIW and denies any missed treatments. States that she hasbeen told she is getting good dialysis during monthly labs. Denies SOB/fever/unusual weakness. Al also reports concerns over patient is inability to pay for home healthcare, as it is reportedly not covered by her insurance. Care advice and emotional support given. Patient instructed to call back if symptoms worsen or withany questions and verbalized understanding. No appointments in office today and advised that [facility] should go [place] [facility] or even the ED for evaluation. Patient and son politely declined and asked for an OV with Rosita odor LIP OF SHANK CUTTER either next Tuesday or Tuesday. Tasking to office for discussion with PCP and call back to patient's son Al, please. Disposition See Today or Tomorrow in Office Reason for Disposition Longstanding confusion (e.g., dementia, stroke) and getting worse Protocols Used Confusion - Pvdogsgl-Nhmcd-NV * Telephone Encounter - Veda Swift RN - 11/23/2024 11:27 AM CDT Regarding: Worsening confusion ----- Message from David Recio sent at 11/23/2024 11:17 AM CDT ----- Symptom Based Call Chief Complaint(s): worsening confusion and forgetfulness Duration: since 11/15 ongoing What type of symptom(s) is the patient experiencing? Red Flag. Is the patient concerned they are experiencing a medical emergency requiring an ambulance? No Additional Comments: Patient is also facing difficulty with home health care due to the cost and her insurance not covering. He stated they discussed this during the 11/15 visit but feels its slowly been getting worse. She's changing heat settings in her house and forgetting or not wanting anyone in her home. He denied patient being a harm to herself or others, no violence Does message need to be routed? Yes-Action Needed documented in this encounter Plan of Treatment Scheduled Orders Name Type Priority Associated Diagnoses Orde r Schedule CBC with auto differential Lab Routine ESRD on dialysis (HCC) Essential hypertension Medication management Expected: 11/23/2024, Expires: 11/23/2025 Comprehensive metabolic panel Lab Routine ESRD on dialysis (HCC) Essential hypertension Medication management Expected: 11/23/2024, Expires: 11/23/2025 documented as of this encounter Visit Diagnoses Diagnosis ESRD on dialysis- Primary End stage renal disease Essential hypertension Unspecified essential hypertension Medication management documented in this encounter Care Teams Treating Plant Supervisor Relationship Specialty Start Date End Date Addie Moore NP [address] [facility] [address] [place] [address] PCP - General Family Medicine 09/20/24 Louisa Anderson MD [address] [place] [address] Consulting Physician Cardiovascular Disease 09/09/21 Juan Luis Fritz MD [address] [place] [address] Consulting Physician Nephrology 09/09/21 Joshua Motley MD [address] [place] [address] Referring Physician Nephrology 02/15/22 Wily Tolbert RN [address] [place] [address] [address] [place] [address] Hospital Food Service Worker 04/30/24 documented as of this encounter
--- OUTSIDE RECORDS SUMMARY | 2025-02-20 08:52 | XMS_ITS | Clinical Summary ---
Author Organization [facility] Address [address], [place] [address] Phone Care Team Providers Care Disaster Director Name Role Phone Tricia Trejo MD Primary Care Provider [phone] Allergies Active Allergy Reactions Criticality Noted Date [...] 11:53 AM CDT Height 160 cm (5' 3) 11/24/2020 11:53 AM CDT Body Mass Index 18.07 11/24/2020 11:53 AM CDT Plan of Treatment Health Maintenance Due Date Last Done Comments Pneumococcal PPSV23/PCV13 65 + Years / Low and Medium Risk (1 of 2 - PCV) 1994 Influenza Vaccine (#1) [address] [place] [address] [address] Care Teams Disaster Director Relationship Specialty Start Date End Date Tricia Trejo MD [address] [place] [address] [address] [place] [address] PCP - General Family Medicine 10/14/20
--- OUTSIDE RECORDS SUMMARY | 2025-02-20 08:52 | XMS_ITS | Clinical Summary ---
Author Organization [facility] Address [facility] [place] [address] Care Team Providers Care Kettle Loader Name Role Phone None, Provider MD Primary [...] 10:12 AM CDT Height 157.5 cm (5' 2) 11/02/2019 10:12 AM CDT Body Mass Index 19.48 11/02/2019 10:12 AM CDT Plan of Treatment Health Maintenance Due Date Last Done Comments DTaP, Tdap and Td Vaccines ( 1 - Tdap) 01[birth year]01/1965 Pneumococcal Vaccine: 50+ Ye ars (1 of 1 - PCV) 1994 Zoster Vaccines (1 of 2) 1994 Dexa Scan (General) 2009 RSV Immunization or 60+ Years (1 - 1-dose 75+ series) 01/01/2020 COVID-19 Vaccine (2024-2 6 season) 2024 Influenza Adult (#1) 2025 Hepatitis A Vaccines Aged Out No long er eligible based on patient's age to complete this topic Meningococcal B Vaccine Aged Out No l [...] 2:38 PM 11/03/2019 12:18 PM Care Teams Kettle Loader Relationship Specialty Start Date End Date None, Provider, PCP - General 11/02/19
[2025-02-20] MEDS: SODIUM CHLORIDE 0.9% IV 250 ML 30 ML IV CONT (09:30)
[2025-02-20] MEDS: TUBING, BLOOD SET 1 EACH XX (09:40)
--- NOTE | 2025-02-20 10:06 | PC.NURSE ---
Dhaval Allen, son, updated on patient condition.
--- NOTE | 2025-02-20 10:12 | ECG_ITS ---
Test Date: 2025-02-20 10:12:37 Measurements Intervals [place] Rate: 89 P: 72 NM: 164 QRS: 55 QRSD: 83 T: 87 QT: 388 QTc: 472 Interpretive Statements SINUS RHYTHM Electronically Signed On 02-20-2025 22:28:38 POSTMASTER RELIEF by Teddy Barber D.O
--- NOTE | 2025-02-20 10:19 | ED.WEAKNESS ---
HPI - Weakness General Chief complaint: Weakness Stated complaint: glf, back pain, weak Time Seen by Provider: 02/20/25 07:42 History of Present Illness HPI Narrative: Pt got up this morning to go to [facility] and legs gave out and she fell landing on back. Pt denies LOC. Pt complains of some pain in low back. Pt was seen here last night for weakness and anemia. Pt had Hb of 5.3 but had transfusion set up for today and did not want to be admitted so signed out ama. Pt had some st depression on her lateral leads last night but had no CP or SOB then. Pt is T, Th, Sat dialysis pt and got dialysis yesterday. Pt denies CP or SOB. Related Data Home Medications ?Medication ?Instructions ?Recorded ?Confirmed ?Last Taken ?Type aspirin 81 mg tablet 81 mg PO DAILY 05/10/20 02/20/25 02/18/25 History melatonin 3 mg tablet 3 mg PO HS PRN Sleep 12/08/22 02/20/25 02/18/25 History omeprazole 40 mg capsule,delayed 40 mg PO DAILY 12/08/22 02/20/25 02/18/25 History release oxybutynin chloride 5 mg tablet 5 mg PO HS 12/08/22 02/20/25 02/18/25 History trazodone 50 mg tablet 50 mg PO HS 12/08/22 02/20/25 02/18/25 History ergocalciferol (vitamin D2) 1,250 50,000 unit PO WEEKLY 10/11/23 02/20/25 02/18/25 History mcg (50,000 unit) capsule atorvastatin 80 mg tablet 80 mg PO HS 03/10/24 02/20/25 02/18/25 History lisinopril 40 mg tablet 40 mg PO QPM 08/21/24 02/20/25 02/19/25 History nifedipine 60 mg tablet,extended 60 mg PO Q12H 08/21/24 02/20/25 02/18/25 History release ticagrelor 90 mg tablet 90 mg PO Q12H 02/20/25 02/20/25 02/18/25 History Allergies Allergy/AdvReac Type Severity Reaction Status Date / Time Penicillins Allergy Unknown Unknown,Ham Verified 02/20/25 12:56 h Review of Systems Review of Systems: All systems reviewed & are unremarkable except as noted in HPI and below PMFSH Past Medical History Medical History (Updated 02/20/25 @ 15:53 by Mili Casanova APRN) Anxiety and depression DVT (deep venous thrombosis) COPD with emphysema Anemia in ESRD (end-stage renal disease) LINNETTE (iron deficiency anemia) End-stage renal disease on hemodialysis Tuesday. Dialysis managed by Dr. Joshua Motley Peripheral arterial disease Cardiomyopathy Presumed ischemic with moderately sized moderately severe reversible defect and small mild non reversible infarct on Lexiscan stress on 09/12/2020. Combined systolic and diastolic congestive heart failure Echocardiogram on 09/10/2020 EF of 20 to 25%, grade 1 diastolic dysfunction, reduced RV systolic function. 12/2020 echo EF 40-46% with segmental wall motion abnormalities Hypertension Hypertensive cardiomegaly Hyperparathyroidism due to ESRD on dialysis Hyperlipidemia Gastric AVM Surgical History Surgical History History of tonsillectomy Surgically constructed arteriovenous fistula Left upper arm History of colonoscopy History of colon polyps, internal hemorrhoids, and diverticulosis. History of esophagogastroduodenoscopy History of gastric erosions, gastric polyps, and duodenal AVMs. History of revascularization procedure of lower extremity (10/2019) Bilateral lower extremity stents per Dr. Carrillo. History of vascular surgery (06/12/13) Aorto bi-iliac bypass graft per Dr. Carrillo. Family History Family History Mother Alzheimer disease Father Emphysema of lung Social History Social History Social History: Surrogate medical decision maker: Dhaval Allen, hay. Code status: Full code. Smoking packs per day: 0.5 Smoking cigarettes per day: 10.0 Years smoked: 53 Smoking pack-years: 26.50 Smoking status: Former smoker Tobacco type: cigarettes Second hand tobacco smoke exposure: Yes Smoking end date: 09/20/74 Alcohol intake: former Substance use: never Substance use type: does not use Do You Feel Safe in your Home?: Yes Lack of Transportation: No Lack of Food: Never True Current Housing: I Have Housing Concerned About Future Housing: No Difficulty Paying Gas/Electric Bills: No Difficulty Paying for Meds: No Currently Unemployed: No Education: Bachelor's Degree Difficulty w/ Childcare or Family Care: No Additional living arrangements comments: . Lives with her only son in [place]. Additional occupation/education comments: Retired from the [employer]. Spiritual care concerns: No Exam Const: General: no acute distress Nutritional Appearance: well nourished Orientation/consciousness: patient oriented x3 HENMT: Head: normal to inspection Eyes: Conjunctivae: conjunctival abnormality (pale) Neck: Neck: normal visual inspection Resp: Effort & Inspection: normal respiratory effort Auscultation: clear to auscultation bilaterally Cardio: Rate: regular rate Rhythm: regular rhythm GI: GI Palp: Yes Soft to palpation and No Tenderness to palpation present (GI) Auscultation: normal bowel sounds Back/Spine/Pelvis: Back: no CVA tenderness Other: some mild tenderness to low back Skin: Rashes: no rashes Wounds: no wounds Neuro: General: patient oriented x3, moves all extremities, no meningeal signs and no focal motor deficits Cranial nerves: Yes Nystagmus not present Speech: normal speech Extrem: General: normal to inspection and no clubbing, cyanosis or edema Psych: Mental Status: mental status grossly normal Affect: normal affect Attitude: cooperative Course Vital Signs Vital signs: Vital Signs Temperature 97.6 F 02/20/25 07:54 Pulse Rate 87 02/20/25 07:54 Respiratory Rate 16 02/20/25 07:54 Blood Pressure 141/37 H 02/20/25 07:54 Pulse Oximetry 94 02/20/25 07:54 Oxygen Delivery Room Air 02/20/25 07:54 Temperature 98.6 F 02/20/25 16:50 Pulse Rate 98 02/20/25 16:50 Respiratory Rate 18 02/20/25 16:50 Blood Pressure 216/51 H 02/20/25 16:50 Pulse Oximetry 100 02/20/25 16:50 Oxygen Delivery Room Air 02/20/25 12:54 MDM - Weakness MDM Narrative Medical decision making narrative: Pt denies CP or SOB. initial ekg shows subtle st elevation in anteroseptal leads with st depression in lateral leads. Discussed with Dr Saldaña, said likely due to anemia. Said transfuse and repeat. EKG during transfusion st changes resolved. discussed with Dr Earl and agrees to admit for observation and transfusion Differential Diagnosis Differential diagnosis: Likely acute myocardial infarction, anemia, hypoglycemia, rhabdomyolysis, sepsis, dehydration and other (lumbar fx from fall) Lab Data Attestation: I reviewed the patient's lab results. 02/20/25 08:13 02/20/25 08:13 Labs: Lab Results 02/20/25 Range/Units 08:13 WBC 6.0 (4.5-10.0) K/mm3 RBC 1.89 L (4.2-5.4) M/mm3 Hgb 5.4 L* (12.0-15.0) g/dL Hct 16.6 L* (37.0-47.0) % MCV 87.8 (80-100) fl MCH 28.6 (26-34) pg MCHC 32.5 (32-36) g/dl RDW 18.0 H (11.5-14.5) % Plt Count 129 L (150-375) k/mm3 MPV 8.7 (7.4-10.4) fl Immature Gran % (Auto) 0.7 H (0-0.5) % Neut % (Auto) 83.0 H (45.5-73.1) % Lymph % (Auto) 6.9 L (18.3-44.2) % Grand % (Auto) 7.2 (2.6-8.5) % Eos % (Auto) 2.0 (0-4.4) % Baso % (Auto) 0.2 (0.2-1.2) % Lymph # (Auto) 0.41 L (0.9-3.2) K/mm3 Grand # (Auto) 0.4 (0.1-0.6) K/mm3 Eos # (Auto) 0.1 (0-0.3) K/mm3 Baso # (Auto) 0.0 (0.0-0.1) K/mm3 Abs Immat Gran (auto) 0.04 H (0.00-0.031) K/mm3 Absolute Neuts (auto) 5.0 (1.3-6.7) K/mm3 Absolute Nucleated RBC 0.000 (0.0-0.012) K/mm3 Nucleated RBC % 0.0 (0.0-0.2) % Sodium 134 L (137-145) mmol/L Potassium 4.1 (3.4-5.0) mmol/L Chloride 99 (98-107) mmol/L Carbon Dioxide 28 (22-30) mmol/L Anion Gap 7 (4-12) mmol/L BUN 52 H D (7-17) mg/dL Creatinine 3.54 H (0.7-1.0) mg/dL Estim Creat Clear Calc Not Reportable Estimated GFR 12 L (59 - ) Glucose 81 (65-110) mg/dL Calcium 8.4 (8.4-10.2) mg/dL Total Bilirubin 0.3 (0.2-1.3) mg/dL AST 24 (14-36) U/L ALT 11 (6-35) U/L Alkaline Phosphatase 84 (38-126) U/L Troponin I 0.040 H* (0.000-0.034) ng/mL Total Protein 6.5 (6.3-8.2) g/dL Albumin 3.4 L (3.5-5.1) g/dL Blood Type A Positive Antibody Screen Negative Crossmatch See Detail Critical Care Time Critical Care Time Critical Care Time: Yes Total Critical Care Time: 34 Discharge Plan Discharge Clinical Impression: Anemia, Acute electrocardiography changes, Renal failure Patient Disposition: Still a Patient Condition: Improved
[2025-02-20 11:33] LABS: Add Urine Microscopic? YES; Appearance Urine Clear (Clear); Glucose Urine UA Negative (Negative); Leukocyte Esterase Ur Trace LEU/UL (Negative); Need Manual Microscopic Reviewed; Nitrate Urine Negative (Negative); Non Pathogenic Casts 0-2; Specific Grav Ur 1.014 (1.001-1.035)
--- NOTE | 2025-02-20 12:03 | WPCEDHO ---
ED Hand Off Checklist All vitals saved: IV Site documented: All med administrations documented: Triage Note Triage Note Pt to the ED via [facility] 02/20/25 07:54 from home, with complaints of weakness and ground level fall. Pt states that her lower back hurts. Hx of anemia. Pt gets dialysis. Allergies Penicillins Allergy (Unknown, Verified 02/20/25 11:36) Unknown,Rash Family History (Last Reviewed 01/24/25 @ 01:07 by Keagan Mcfarlane MD) Mother Alzheimer disease Father Emphysema of lung Active Medications including assessments/comments Sodium Chloride (Normal Saline Iv) 250 mls @ 30 mls/hr IV CONT .Q8H20M STA Stop: 02/20/25 16:19 Last Admin: 02/20/25 09:30 Dose: 30 mls/hr Documented By: POPEYE Infusion/Titration Document 02/20/25 09:30 ANT (Rec: 02/20/25 11:00 ANT [id number]) Intake IV Site Right Antecubital Container Volume 250 Waste Amount 0 Dosing Infusion Rate 30 Cumulative Dose Not Applicable Increase/Decrease Started Elapsed Time Elapsed Time ( 0m minutes) Administered/Completed Medications Discontinued Medications IV Miscellaneous Supplies (Tubing, Blood Set) Confirm Administered Dose 1 each XX .STK-MED ONE Stop: 02/20/25 09:39 Last Admin: 02/20/25 09:40 Dose: 1 each Documented By: POPEYE Notes 02/20/25 10:06 Nurse Note by Mireya Mcfadden Tiffany, son, updated on patient condition. Initialized on 02/20/25 10:06 - END OF NOTE Interventions/Assessments IV / Saline Lock, Insert Start: 02/20/25 07:39 Freq: Status: Active Protocol: Document 02/20/25 08:24 ANT (Rec: 02/20/25 08:24 ANT [id number]) IV Assessment Right Antecubital IV Catheter Access Initiated IV Insertion Date 02/20/25 IV Insertion Time 08:24 Catheter Gauge 20 Ultrasound Used for No Placement IV Site Assessment WNL IV Care and WNL Maintenance PA: Cardiovascular Assessment Start: 02/20/25 07:39 Freq: Status: Active Protocol: Document 02/20/25 08:14 ANT (Rec: 02/20/25 08:16 ANT [id number]) Cardiovascular Assessment Cardiovascular None Symptoms Skin Description Normal Color Heart Sounds Normal Jugular Vein None Distention PA: Neurological Assessment Start: 02/20/25 07:39 Freq: Status: Active Protocol: Document 02/20/25 08:14 ANT (Rec: 02/20/25 08:16 ANT [id number]) Neurological Assessment Level of Alert Consciousness Arousable to Verbal Orientation Oriented to Person,Oriented to Place,Oriented to Time Neurological Weakness, General Symptoms Hallucination Type None Unable to Redirect No Behavior Behavior Cooperative Patient Able to Comprehend Comprehension Ability to Maintain Impaired Balance Facial Symmetry Symmetrical Speech Pattern Clear Ability to Swallow Normal Tongue Position Midline Petr Coma Scale Eyes Open Verbal Oriented and Alert Motor Follows Commands Odell Coma Total 15 Score Last Vital Signs Temperature 97.8 F 02/20/25 10:03 Pulse Rate 89 02/20/25 11:15 Respiratory Rate 20 02/20/25 11:15 Pulse Oximetry 95 02/20/25 10:03 Blood Pressure 187/52 H 02/20/25 11:15 Blood Pressure Mean 91 02/20/25 11:15 Oxygen Delivery Room Air 02/20/25 07:54 Weight 40.4 kg 02/20/25 07:54 Last Result - Abnormals Only RBC 1.89 M/mm3 (4.2-5.4) L 02/20/25 08:13 Hgb 5.4 g/dL (12.0-15.0) L* 02/20/25 08:13 Hct 16.6 % (37.0-47.0) L* 02/20/25 08:13 RDW 18.0 % (11.5-14.5) H 02/20/25 08:13 Plt Count 129 k/mm3 (150-375) L 02/20/25 08:13 Immature Gran % (Auto) 0.7 % (0-0.5) H 02/20/25 08:13 Neut % (Auto) 83.0 % (45.5-73.1) H 02/20/25 08:13 Lymph % (Auto) 6.9 % (18.3-44.2) L 02/20/25 08:13 Lymph # (Auto) 0.41 K/mm3 (0.9-3.2) L 02/20/25 08:13 Abs Immat Gran (auto) 0.04 K/mm3 (0.00-0.031) H 02/20/25 08:13 Sodium 134 mmol/L (137-145) L 02/20/25 08:13 BUN 52 mg/dL (7-17) H D 02/20/25 08:13 Creatinine 3.54 mg/dL (0.7-1.0) H 02/20/25 08:13 Estimated GFR 12 (59-) L 02/20/25 08:13 Troponin I 0.040 ng/mL (0.000-0.034) H* 02/20/25 08:13 Albumin 3.4 g/dL (3.5-5.1) L 02/20/25 08:13 Urine Protein 2+ mg/dL (Negative) H 02/20/25 11:14 Leukocyte Esterase Rfl Trace ALMA DELIA/UL (Negative) H 02/20/25 11:14 Crossmatch See Detail 02/20/25 08:13 Most Recent Suicide Severity Rating Suicide Severity Rating NO RISK INDICATED 02/20/25 07:54
--- NOTE | 2025-02-20 12:10 | WPCEDHO ---
ED Hand Off Checklist All vitals saved: IV Site documented: All med administrations documented: Triage Note Triage Note Pt to the ED via [facility] 02/20/25 07:54 from home, with complaints of weakness and ground level fall. Pt states that her lower back hurts. Hx of anemia. Pt gets dialysis. Allergies Penicillins Allergy (Unknown, Verified 02/20/25 11:36) Unknown,Rash Family History (Last Reviewed 01/24/25 @ 01:07 by Keagan Mcfarlane MD) Mother Alzheimer disease Father Emphysema of lung Active Medications including assessments/comments Sodium Chloride (Normal Saline Iv) 250 mls @ 30 mls/hr IV CONT .Q8H20M STA Stop: 02/20/25 16:19 Last Admin: 02/20/25 09:30 Dose: 30 mls/hr Documented By: POPEYE Infusion/Titration Document 02/20/25 09:30 ANT (Rec: 02/20/25 11:00 ANT [id number]) Intake IV Site Right Antecubital Container Volume 250 Waste Amount 0 Dosing Infusion Rate 30 Cumulative Dose Not Applicable Increase/Decrease Started Elapsed Time Elapsed Time ( 0m minutes) Administered/Completed Medications Discontinued Medications IV Miscellaneous Supplies (Tubing, Blood Set) Confirm Administered Dose 1 each XX .STK-MED ONE Stop: 02/20/25 09:39 Last Admin: 02/20/25 09:40 Dose: 1 each Documented By: POPEYE Notes 02/20/25 12:03 ED Hand Off by Rosina Mckeon ED Hand Off Checklist All vitals saved: IV Site documented: All med administrations documented: Triage Note Triage Note Pt to the ED via [facility] 02/20/25 07:54 from home, with complaints of weakness and ground level fall. Pt states that her lower back hurts. Hx of anemia. Pt gets dialysis. Allergies Penicillins Allergy (Unknown, Verified 02/20/25 11:36) Unknown,Rash Family History (Last Reviewed 01/24/25 @ 01:07 by Keagan Mcfarlane MD) Mother Alzheimer disease Father Emphysema of lung Active Medications including assessments/comments Sodium Chloride (Normal Saline Iv) 250 mls @ 30 mls/hr IV CONT .Q8H20M STA Stop: 02/20/25 16:19 Last Admin: 02/20/25 09:30 Dose: 30 mls/hr Documented By: ANT Infusion/Titration Document 02/20/25 09:30 ANT (Rec: 02/20/25 11:00 ANT [id number]) Intake IV Site Right Antecubital Container Volume 250 Waste Amount 0 Dosing Infusion Rate 30 Cumulative Dose Not Applicable Increase/Decrease Started Elapsed Time Elapsed Time ( 0m minutes) Administered/Completed Medications Discontinued Medications IV Miscellaneous Supplies (Tubing, Blood Set) Confirm Administered Dose 1 each XX .STK-MED ONE Stop: 02/20/25 09:39 Last Admin: 02/20/25 09:40 Dose: 1 each Documented By: ANT Notes 02/20/25 10:06 Nurse Note by Mireya Mcfadden, son, updated on patient condition. Initialized on 02/20/25 10:06 - END OF NOTE Interventions/Assessments IV / Saline Lock, Insert Start: 02/20/25 07:39 Freq: Status: Active Protocol: Document 02/20/25 08:24 ANT (Rec: 02/20/25 08:24 ANT [id number]) IV Assessment Right Antecubital IV Catheter Access Initiated IV Insertion Date 02/20/25 IV Insertion Time 08:24 Catheter Gauge 20 Ultrasound Used for No Placement IV Site Assessment WNL IV Care and WNL Maintenance PA: Cardiovascular Assessment Start: 02/20/25 07:39 Freq: Status: Active Protocol: Document 02/20/25 08:14 ANT (Rec: 02/20/25 08:16 ANT [id number]) Cardiovascular Assessment Cardiovascular None Symptoms Skin Description Normal Color Heart Sounds Normal Jugular Vein None Distention PA: Neurological Assessment Start: 02/20/25 07:39 Freq: Status: Active Protocol: Document 02/20/25 08:14 ANT (Rec: 02/20/25 08:16 ANT [id number]) Neurological Assessment Level of Alert Consciousness Arousable to Verbal Orientation Oriented to Person,Oriented to Place,Oriented to Time Neurological Weakness, General Symptoms Hallucination Type None Unable to Redirect No Behavior Behavior Cooperative Patient Able to Comprehend Comprehension Ability to Maintain Impaired Balance Facial Symmetry Symmetrical Speech Pattern Clear Ability to Swallow Normal Tongue Position Midline Petr Coma Scale Eyes Open Verbal Oriented and Alert Motor Follows Commands Petr Coma Total 15 Score Last Vital Signs Temperature 97.8 F 02/20/25 10:03 Pulse Rate 89 02/20/25 11:15 Respiratory Rate 20 02/20/25 11:15 Pulse Oximetry 95 02/20/25 10:03 Blood Pressure 187/52 H 02/20/25 11:15 Blood Pressure Mean 91 02/20/25 11:15 Oxygen Delivery Room Air 02/20/25 07:54 Weight 40.4 kg 02/20/25 07:54 Last Result - Abnormals Only RBC 1.89 M/mm3 (4.2-5.4) L 02/20/25 08:13 Hgb 5.4 g/dL (12.0-15.0) L* 02/20/25 08:13 Hct 16.6 % (37.0-47.0) L* 02/20/25 08:13 RDW 18.0 % (11.5-14.5) H 02/20/25 08:13 Plt Count 129 k/mm3 (150-375) L 02/20/25 08:13 Immature Gran % (Auto) 0.7 % (0-0.5) H 02/20/25 08:13 Neut % (Auto) 83.0 % (45.5-73.1) H 02/20/25 08:13 Lymph % (Auto) 6.9 % (18.3-44.2) L 02/20/25 08:13 Lymph # (Auto) 0.41 K/mm3 (0.9-3.2) L 02/20/25 08:13 Abs Immat Gran (auto) 0.04 K/mm3 (0.00-0.031) H 02/20/25 08:13 Sodium 134 mmol/L (137-145) L 02/20/25 08:13 BUN 52 mg/dL (7-17) H D 02/20/25 08:13 Creatinine 3.54 mg/dL (0.7-1.0) H 02/20/25 08:13 Estimated GFR 12 (59-) L 02/20/25 08:13 Troponin I 0.040 ng/mL (0.000-0.034) H* 02/20/25 08:13 Albumin 3.4 g/dL (3.5-5.1) L 02/20/25 08:13 Urine Protein 2+ mg/dL (Negative) H 02/20/25 11:14 Leukocyte Esterase Rfl Trace ALMA DELIA/UL (Negative) H 02/20/25 11:14 Crossmatch See Detail 02/20/25 08:13 Most Recent Suicide Severity Rating Suicide Severity Rating NO RISK INDICATED 02/20/25 07:54 Initialized on 02/20/25 12:03 - END OF NOTE 02/20/25 10:06 Nurse Note by Mireya Mcfadden Dhaval Allen, son, updated on patient condition. Initialized on 02/20/25 10:06 - END OF NOTE Interventions/Assessments IV / Saline Lock, Insert Start: 02/20/25 07:39 Freq: Status: Active Protocol: Document 02/20/25 08:24 ANT (Rec: 02/20/25 08:24 ANT [id number]) IV Assessment Right Antecubital IV Catheter Access Initiated IV Insertion Date 02/20/25 IV Insertion Time 08:24 Catheter Gauge 20 Ultrasound Used for No Placement IV Site Assessment WNL IV Care and WNL Maintenance PA: Cardiovascular Assessment Start: 02/20/25 07:39 Freq: Status: Active Protocol: Document 02/20/25 08:14 ANT (Rec: 02/20/25 08:16 ANT [id number]) Cardiovascular Assessment Cardiovascular None Symptoms Skin Description Normal Color Heart Sounds Normal Jugular Vein None Distention PA: Neurological Assessment Start: 02/20/25 07:39 Freq: Status: Active Protocol: Document 02/20/25 08:14 ANT (Rec: 02/20/25 08:16 ANT [id number]) Neurological Assessment Level of Alert Consciousness Arousable to Verbal Orientation Oriented to Person,Oriented to Place,Oriented to Time Neurological Weakness, General Symptoms Hallucination Type None Unable to Redirect No Behavior Behavior Cooperative Patient Able to Comprehend Comprehension Ability to Maintain Impaired Balance Facial Symmetry Symmetrical Speech Pattern Clear Ability to Swallow Normal Tongue Position Midline Petr Coma Scale Eyes Open Verbal Oriented and Alert Motor Follows Commands [place] Coma Total 15 Score Last Vital Signs Temperature 97.8 F 02/20/25 10:03 Pulse Rate 89 02/20/25 11:15 Respiratory Rate 20 02/20/25 11:15 Pulse Oximetry 95 02/20/25 10:03 Blood Pressure 187/52 H 02/20/25 11:15 Blood Pressure Mean 91 02/20/25 11:15 Oxygen Delivery Room Air 02/20/25 07:54 Weight 40.4 kg 02/20/25 07:54 Last Result - Abnormals Only RBC 1.89 M/mm3 (4.2-5.4) L 02/20/25 08:13 Hgb 5.4 g/dL (12.0-15.0) L* 02/20/25 08:13 Hct 16.6 % (37.0-47.0) L* 02/20/25 08:13 RDW 18.0 % (11.5-14.5) H 02/20/25 08:13 Plt Count 129 k/mm3 (150-375) L 02/20/25 08:13 Immature Gran % (Auto) 0.7 % (0-0.5) H 02/20/25 08:13 Neut % (Auto) 83.0 % (45.5-73.1) H 02/20/25 08:13 Lymph % (Auto) 6.9 % (18.3-44.2) L 02/20/25 08:13 Lymph # (Auto) 0.41 K/mm3 (0.9-3.2) L 02/20/25 08:13 Abs Immat Gran (auto) 0.04 K/mm3 (0.00-0.031) H 02/20/25 08:13 Sodium 134 mmol/L (137-145) L 02/20/25 08:13 BUN 52 mg/dL (7-17) H D 02/20/25 08:13 Creatinine 3.54 mg/dL (0.7-1.0) H 02/20/25 08:13 Estimated GFR 12 (59-) L 02/20/25 08:13 Troponin I 0.040 ng/mL (0.000-0.034) H* 02/20/25 08:13 Albumin 3.4 g/dL (3.5-5.1) L 02/20/25 08:13 Urine Protein 2+ mg/dL (Negative) H 02/20/25 11:14 Leukocyte Esterase Rfl Trace ALMA DELIA/UL (Negative) H 02/20/25 11:14 Crossmatch See Detail 02/20/25 08:13 Most Recent Suicide Severity Rating Suicide Severity Rating NO RISK INDICATED 02/20/25 07:54
--- NOTE | 2025-02-20 12:34 | ADMGEN ---
This patient, Alina Allen, was admitted to -. Patient/family oriented to hospital policies and general routines including ID bracelet, bed and alarms, visiting hours, pain management, procedures, bathroom and other care routines, personal items, smoking policy, room service/diet, and visiting hours. Information on how to activate the Rapid Response Team has been discussed. Patient/Family are encouraged to report perceived risks to care and to ask questions if they do not understand what they are told or what they should do.
[2025-02-20] MEDS: SODIUM CHLORIDE 0.9% IV 250 ML 30 ML (14:03)
--- NOTE | 2025-02-20 14:48 | PM.IMHP ---
H&P: HPI History of Present Illness Date/Time: 02/20/25 14:48 Chief Complaint: Weakness, Ground Level Fall Narrative: 79 y/o F with PMH of cardiomegaly, hyperparathyroidism, ESRD on HD (//Tue), HLD, chronic anemia secondary to ESRD, COPD, peripheral artery disease, combined systolic/diastolic HFrEF, gastric AVM, and hypertension presents here with generalized weakness a ground level fall. The patient presents here from home via EMS on 02/20 for further evaluation of generalized weakness and low back pain following a ground level fall. HPI change through chart review as the patient is currently a poor historian. She reports she was going to the bathroom this morning when her legs gave out causing a ground level fall. She reports she fell backwards onto her back. No current complaints of pain. She did not hit her head or lose consciousness. After the fall she reports mild low back pain. Per chart review, she was seen yesterday (02/19) for generalized weakness and dizziness post-dialysis. She has a history of anemia secondary to ESRD and was due for a transfusion today (02/20). She was offered admission for a blood transfusion, however the patient elected to leave AMA and receive her transfusion today as scheduled. However, patient is reporting she has been here for 2 days. Then told the bedside nurse she has not taken her home medications for the past 2 days, currently lives at home with her son and manages her own medications. She denies noncompliance with her medications at home at this time. Patient is also denying dark tarry stools, however patient director of career resources noted that the patient had a dark stool earlier this afternoon. Currently on iron supplement. No current complaints of chest pain, shortness a breath, dizziness, nausea, vomiting, diarrhea, cough, URI symptoms. Initial VS at presentation: 97.6? F, HR 87, R 16, 141/37, and 94% on RA. ED workup showed: No leukocytosis, Hgb 5.4 (5.3 and 6.0 on 02/19, 8.4 on 01/27), sodium 134, creatinine 3.54 and GFR 12, initial troponin 0.040 (similar to previous), and UA showed trace leuk Estrace with occasional epithelial cells (likely contaminant). CXR showed CHF superimposed probable pneumonia, however findings relatively unchanged compared to previous study on 01/26. Lumbar XR showed no acute abnormality. Review of Systems Review of Systems: All systems reviewed & are unremarkable except as noted in HPI and below FORMERLY [facility], [facility] Past Medical History Medical History (Updated 02/20/25 @ 15:53 by Mili Casanova APRN) Anxiety and depression DVT (deep venous thrombosis) COPD with emphysema Anemia in ESRD (end-stage renal disease) LINNETTE (iron deficiency anemia) End-stage renal disease on hemodialysis Tuesday. Dialysis managed by Dr. Joshua Motley Peripheral arterial disease Cardiomyopathy Presumed ischemic with moderately sized moderately severe reversible defect and small mild non reversible infarct on Lexiscan stress on 09/12/2020. Combined systolic and diastolic congestive heart failure Echocardiogram on 09/10/2020 EF of 20 to 25%, grade 1 diastolic dysfunction, reduced RV systolic function. 12/2020 echo EF 40-46% with segmental wall motion abnormalities Hypertension Hypertensive cardiomegaly Hyperparathyroidism due to ESRD on dialysis Hyperlipidemia Gastric AVM Surgical History Surgical History History of tonsillectomy Surgically constructed arteriovenous fistula Left upper arm History of colonoscopy History of colon polyps, internal hemorrhoids, and diverticulosis. History of esophagogastroduodenoscopy History of gastric erosions, gastric polyps, and duodenal AVMs. History of revascularization procedure of lower extremity (10/2019) Bilateral lower extremity stents per Dr. Carrillo. History of vascular surgery (06/12/13) Aorto bi-iliac bypass graft per Dr. Carrillo. Family History Family History Mother Alzheimer disease Father Emphysema of lung Social History Social History Social History: Surrogate medical decision maker: Dhaval Allen, hay. Code status: Full code. Smoking packs per day: 0.5 Smoking cigarettes per day: 10.0 Years smoked: 53 Smoking pack-years: 26.50 Smoking status: Former smoker Tobacco type: cigarettes Second hand tobacco smoke exposure: Yes Smoking end date: 09/20/74 Alcohol intake: former Substance use: never Substance use type: does not use Do You Feel Safe in your Home?: Yes Lack of Transportation: No Lack of Food: Never True Current Housing: I Have Housing Concerned About Future Housing: No Difficulty Paying Gas/Electric Bills: No Difficulty Paying for Meds: No Currently Unemployed: No Education: Bachelor's Degree Difficulty w/ Childcare or Family Care: No Additional living arrangements comments: . Lives with her only son in [place]. Additional occupation/education comments: Retired from the [employer]. Spiritual care concerns: No Meds Home Medications and Allergies Home Medications ?Medication ?Instructions ?Recorded ?Confirmed ?Type aspirin 81 mg tablet 81 mg PO DAILY 05/10/20 02/20/25 History isosorbide mononitrate 30 mg 30 mg PO DAILY #30 tabs 09/20/20 02/20/25 Rx tablet,extended release 24 hr melatonin 3 mg tablet 3 mg PO HS PRN Sleep 12/08/22 02/20/25 History omeprazole 40 mg capsule,delayed 40 mg PO DAILY 12/08/22 02/20/25 History release oxybutynin chloride 5 mg tablet 5 mg PO HS 12/08/22 02/20/25 History trazodone 50 mg tablet 50 mg PO HS 12/08/22 02/20/25 History ergocalciferol (vitamin D2) 1,250 50,000 unit PO WEEKLY 10/11/23 02/20/25 History mcg (50,000 unit) capsule atorvastatin 80 mg tablet 80 mg PO HS 03/10/24 02/20/25 History lisinopril 40 mg tablet 40 mg PO QPM 08/21/24 02/20/25 History nifedipine 60 mg tablet,extended 60 mg PO Q12H 08/21/24 02/20/25 History release folic acid 1 mg tablet 1 mg PO DAILY #30 tabs 01/27/25 02/20/25 Rx ticagrelor 90 mg tablet 90 mg PO Q12H 02/20/25 02/20/25 History Allergies Allergy/AdvReac Type Severity Reaction Status Date / Time Penicillins Allergy Unknown Unknown,Ham Verified 02/20/25 12:56 h Vital Signs Vital Signs - 24 hr 02/20/25 07:54 02/20/25 09:43 02/20/25 09:56 Temperature 97.6 F 98.6 F Pulse Rate 87 92 89 Respiratory Rate 16 19 18 Blood Pressure 141/37 H 149/43 H Pulse Oximetry 94 94 94 Oxygen Delivery Room Air 02/20/25 10:03 02/20/25 11:05 02/20/25 11:15 Temperature 97.8 F Pulse Rate 89 89 89 Respiratory Rate 16 25 H 20 Blood Pressure 166/46 H 187/52 H Pulse Oximetry 95 Oxygen Delivery 02/20/25 12:54 02/20/25 13:30 02/20/25 13:50 Temperature 97.3 F L 97.5 F L Pulse Rate 86 88 Respiratory Rate 20 20 Blood Pressure 195/40 H 186/36 H Pulse Oximetry 93 93 Oxygen Delivery Room Air Exam Const: General: comfortable and no acute distress Other: , female, elderly, nontoxic appearance HENMT: Face/Nose/Sinus: Normal nares present Mouth: Yes moist mucous membranes Eyes: General: appearance normal, both eyes and all related structures Sclera: sclerae normal Pupils: Equal, round and reactive pupils present EOM: EOMs intact bilaterally Resp: Effort & Inspection: normal respiratory effort Other: Bilateral crackles more significant at bases, no wheezing. Cardio: Rate: regular rate Rhythm: regular rhythm Other: S1-S2 present without murmur, rub, ectopy GI: Other: Abdomen soft, nondistended, nontender. Normoactive bowel sounds in all quadrants. Skin: General skin exam: normal color and no rashes or lesions noted Wounds: no wounds Neuro: Speech: normal speech Motor exam (neuro): 5/5 motor strength present throughout Sensory Exam: normal sensation Other: A&O x4 Extrem: General: normal to inspection Other: Left upper extremity fistula has +thrill and bruit Psych: Mental Status: mental status grossly normal Affect: normal affect Other: Fair insight and judgment H&P: Results Labs Labs: Short CBC 02/20/25 Range/Units 08:13 WBC 6.0 (4.5-10.0) K/mm3 Hgb 5.4 L* (12.0-15.0) g/dL Hct 16.6 L* (37.0-47.0) % Plt Count 129 L (150-375) k/mm3 BMP 02/20/25 08:13 Sodium 134 L Potassium 4.1 Chloride 99 Carbon Dioxide 28 BUN 52 H D Creatinine 3.54 H Glucose 81 Calcium 8.4 Cardiac Enzymes 02/20/25 Range/Units 08:13 Troponin I 0.040 H* (0.000-0.034) ng/mL Liver Function 02/20/25 Range/Units 08:13 Total Bilirubin 0.3 (0.2-1.3) mg/dL AST 24 (14-36) U/L ALT 11 (6-35) U/L Alkaline Phosphatase 84 (38-126) U/L Albumin 3.4 L (3.5-5.1) g/dL Urine 02/20/25 Range/Units 11:14 Urine Color Yellow (Yellow) Urine Appearance Clear (Clear) Urine pH 8.0 (5.0-9.0) Ur Specific [place] 1.014 (1.001-1.035) Urine Protein 2+ H (Negative) mg/dL Urine Glucose (UA) Negative (Negative) mg/dL Assessment and Plan Assessment and plan (1) Anemia in ESRD (end-stage renal disease): Code(s): N18.6 - End stage renal disease; D63.1 - Anemia in chronic kidney disease Status: Acute Assessment and Plan: Patient has history of chronic anemia secondary to ESRD and iron deficiency anemia. Had scheduled transfusion for today at [facility], 02/20. Seen yesterday on 02/19 for generalized weakness. Found to be anemic at that time, however elected to leave A verses admission for transfusions. Has received 1 transfusion at this time, receiving 2nd transfusion. Denies previous history of requiring transfusions. However, per chart review has received blood transfusions in April of 2020 and January of 2025. Patient also noted to have dark tarry stools, however she denied. Believe she may be on iron supplement, however reviewed home medications and no iron supplement listed. - Hgb with 5.4 upon admission on 02/20 - transfuse if <7 - trend H&H - check iron, TIBC, TSH, ferritin, B12, folic acid. - check stool occult, add pantoprazole while awaiting results (2) Elevated troponin: Code(s): R79.89 - Other specified abnormal findings of blood chemistry Status: Acute Assessment and Plan: Initial troponin 0.040. Will check 3 and 6 hour. Reviewed the EKGs completed in the ED. Did show some ST depression in V3, however most recent EKG shows resolving depressions. Elevated troponin likely related to patient's ESRD/acute on chronic anemia. Appears to be improving with transfusion. No active chest pain. Continue to trend troponins. Add telemetry. (3) Ground-level fall: Code(s): W18.30XA - Fall on same level, unspecified, initial encounter Status: Acute Assessment and Plan: Sustained a ground level fall this morning on 02/20. Reports low back pain post fall. Fall secondary to bilateral lower extremity weakness, likely related to acute on chronic anemia. Lumbar XR showed no acute abnormality, does have dextro convex scoliosis, grade 1 anterolisthesis of L4 on L5, moderate loss of disc at L4-5 and L5-S1. Add fall precautions. (4) Acute on chronic combined systolic and diastolic CHF (congestive heart failure): Code(s): I50.43 - Acute on chronic combined systolic (congestive) and diastolic (congestive) heart failure Status: Acute Assessment and Plan: History of combined systolic and diastolic heart failure with reduced EF. Most recent echo from September of 2024 showed normal systolic function, estimated EF 60 65%, severe LVH, valvular disease. No hypoxia per review of vital signs. No subjective shortness of breath, cough, or URI symptoms. Reviewed CXR compared to CXR completed on 01/26/2025, small right pleural effusion still present, slightly increased. Pulmonary edema generally improved but still present. No appreciable focal consolidation. Patient's volume status managed via dialysis which he receives Tuesdays, , Saturdays. No recent missed treatments. Monitored toleration of transfusions. Nephrology consulted for inpatient HD. (5) ESRD on hemodialysis: Code(s): N18.6 - End stage renal disease; Z99.2 - Dependence on renal dialysis Status: Chronic Assessment and Plan: History of ESRD on HD, Tuesdays//Saturdays. No recent missed treatments. Mild pulmonary edema on CXR, no hypoxia or subjective shortness of breath. Nephrology consulted for inpatient dialysis. Receiving 2 units of PRBC. Monitor electrolytes. (6) COPD (chronic obstructive pulmonary disease): Qualifiers: COPD type: unspecified COPD Qualified Code(s): J44.9 - Chronic obstructive pulmonary disease, unspecified Code(s): J44.9 - Chronic obstructive pulmonary disease, unspecified Status: Chronic Assessment and Plan: History of COPD, currently stable. No wheezing or crackles on exam. No hypoxia. (7) Hypertension: Qualifiers: Hypertension type: secondary to other renal disorders Qualified Code(s): I15.1 - Hypertension secondary to other renal disorders Code(s): I10 - Essential (primary) hypertension Status: Chronic Assessment and Plan: Who reported the bedside RN that she has not taken her home medications for the past 2 days, however she reports compliance with her medications at time of in-patient interview. Hypertensive this afternoon at 203/55. Will resume home antihypertensives including Imdur, lisinopril, nifedipine. Hydralazine p.r.n. for BP greater than 180/90. Monitor. (8) Hyperlipidemia: Qualifiers: Hyperlipidemia type: unspecified Qualified Code(s): E78.5 - Hyperlipidemia, unspecified Code(s): E78.5 - Hyperlipidemia, unspecified Status: Chronic Assessment and Plan: Continue atorvastatin 80 mg daily. Plan Diet: Renal GI Prophylaxis: Pantoprazole DVT Prophylaxis: SCDs IV fluids: None Lines/Tubes: Peripheral IV, left forearm HD fistula Code Status: Full code Quality VTE Prophylaxis VTE prophylaxis: mechanical ordered Hospitalist MIPS Advance Care Plan I have confirmed that the patient's Advanced Care Plan is present, code status is documented, or surrogate decision maker is listed in patient medical record.: Yes Medication Reconciliation I have utilized all available resources to obtain, update and review the patients current medications (includes all prescriptions, OTC, herbals, cannabis, and nutritional supplements).: Yes
[2025-02-20 16:16] LABS: Troponin I 0.030 ng/mL (0.000-0.034)
--- NOTE | 2025-02-20 17:19 | P.CONNP_ITS ---
Assessment and Plan Assessment and plan (1) End stage renal disease: Code(s): N18.6 - End stage renal disease Status: Chronic Assessment and Plan: * HD tomorrow * continue T/T/S dialysis schedule while hospitalized * follow electrolytes, volume status, and clearance (2) Anemia: Qualifiers: Anemia type: unspecified type Qualified Code(s): D64.9 - Anemia, unspecified Code(s): D64.9 - Anemia, unspecified Status: Acute Assessment and Plan: * as noted by admission labs * partly related to ESRD but cannot discount other etiologies given severity * anemia studies ordered * guaiac stools * high dose Epogen with HD * PRBC transfusion per protocol * follow trend of H/H (3) CHF (congestive heart failure): Qualifiers: Heart failure chronicity: acute on chronic Heart failure type: combined systolic and diastolic Qualified Code(s): I50.43 - Acute on chronic combined systolic (congestive) and diastolic (congestive) heart failure Code(s): I50.9 - Heart failure, unspecified Status: Chronic Assessment and Plan: * known history * however, no evidence of exacerbation * last Echo (10/02/24) noted: * left ventricular ejection fraction is visually estimated to be 60 - 65% * severe concentric left ventricular hypertrophy * right ventricle is normal in size and systolic function * no aortic regurgitation * mild mitral regurgitation * mild tricuspid regurgitation * admission CXR noted in comparison to CXR about a month ago... * continue fluid removal with HD as tolerated in an effort to achieve euvolemia * follow volume status (4) Hypertension: Qualifiers: Hypertension type: secondary to other renal disorders Qualified Code(s): I15.1 - Hypertension secondary to other renal disorders Code(s): I10 - Essential (primary) hypertension Status: Chronic Assessment and Plan: * quite elevated at this time * poor BP control at baseline * restart home medications * PRN IV medications if needed * follow trend of hemodynamics (5) Ground-level fall: Code(s): W18.30XA - Fall on same level, unspecified, initial encounter Status: Acute Assessment and Plan: * noted on admission * no acute injury by imaging studies * reportedly secondary to BLE weakness presumably precipitated by anemia * fall precautions * PT/OT as tolerated (6) COPD (chronic obstructive pulmonary disease): Qualifiers: COPD type: unspecified COPD Qualified Code(s): J44.9 - Chronic obstructive pulmonary disease, unspecified Code(s): J44.9 - Chronic obstructive pulmonary disease, unspecified Status: Chronic Assessment and Plan: * known history * no evidence of exacerbation * use nebulizer treatments PRN I will continue to follow the patient with you while she remains hospitalized and make further recommendations as deemed necessary. Thank you for allowing me to participate in the care of this patient. L History of Present Illness Reason for Consult Consult date: 02/20/25 Reason for consult: end stage renal disease Chief Complaint Chief complaint: Anemia History of Present Illness Narrative: The patient is a 79-year-old female with a past medical history as outlined below who presented to [facility] Emergency room for generalized weakness and s/p fall. A great majority of information that I have obtained is from review of the electronic medical record as well as discussion with the physician / nurses involved in the patient's care at is difficult to get a full and complete history from the patient as she is a poor historian. The patient was apparently going to the bathroom this morning when her legs gave out causing a ground level fall. She reports she fell backwards onto her back. No reported head trauma or loss of consciousness. After the fall, she noted some low back pain. Interestingly, she was seen yesterday (02/19) in the ER for generalized weakness and dizziness following her dialysis treatment. ER evaluation at that time demonstrated the patient have significant/severe anemia and was recommended hospital admission for packed red blood cell transfusion and further evaluation but she left AMA. She was subsequently scheduled for an outpatient packed red blood cell transfusion today given her anemia but of course presented to [facility] Emergency Room following the events that occurred earlier this morning. On further questioning, she denies any hematochezia or melena but she is on oral iron supplementation. She gave no other acute complaints with regard to chest pain, shortness of breath, dizziness, lightheadedness, nausea, vomiting, diarrhea, palpitations, fevers, or chills. Given the fall, EMS was called and she was subsequently transported to the emergency room for further assessment. Workup and evaluation emergency room demonstrated the patient be hemodynamically stable and afebrile. Routine blood tests demonstrates no leukocytosis, Hgb 5.4 (5.3 and 6.0 on 02/19), sodium 134, creatinine 3.54, initial troponin 0.040 (similar to previous), and UA showed trace leukocyte esterase with occasional epithelial cells. Her CXR showed CHF superimposed probable pneumonia, however the findings were relatively unchanged compared to previous study on 01/26. Lumbar XR showed no acute abnormality. Given her severe anemia in conjunction with her recent fall, she was subsequently admitted to the hospital for further evaluation therapy. Renal consultation was requested due to her end-stage renal disease. The patient normally dialyzes on a Tuesday, , Tuesday schedule under the care of Dr. Joshua Motley at [facility]. From a dialysis perspective, she usually does fairly well with relative stability in her monthly labs and fluid/volume status although she had ongoing issues and problems with anemia as noted by her recent hospitalizations. Furthermore, her respiratory status is sometimes complicated by her known history of emphysema/COPD in association with development of pleural effusions and mild volume overload. Her last dialysis treatment was yesterday, 02/19/2025. Currently, at the time my evaluation, she does not appear in any acute distress and getting a PRBC transfusion. Review of Systems 2 Review of Systems: As per HPI. [facility] Past Medical History Medical History (Updated 02/23/25 @ 16:57 by Rodolfo Mckeon MD) Melena Acute on chronic anemia Anxiety and depression DVT (deep venous thrombosis) Anemia in ESRD (end-stage renal disease) LINNETTE (iron deficiency anemia) Hypertensive cardiomegaly Hyperparathyroidism due to ESRD on dialysis End-stage renal disease on hemodialysis Tuesday. Dialysis managed by Dr. Joshua Motley Hyperlipidemia COPD with emphysema Peripheral arterial disease Combined systolic and diastolic congestive heart failure Echocardiogram on 09/10/2020 EF of 20 to 25%, grade 1 diastolic dysfunction, reduced RV systolic function. 12/2020 echo EF 40-46% with segmental wall motion abnormalities Gastric AVM Cardiomyopathy Presumed ischemic with moderately sized moderately severe reversible defect and small mild non reversible infarct on Lexiscan stress on 09/12/2020. Hypertension Surgical History Surgical History History of tonsillectomy Surgically constructed arteriovenous fistula Left upper arm History of colonoscopy History of colon polyps, internal hemorrhoids, and diverticulosis. History of esophagogastroduodenoscopy History of gastric erosions, gastric polyps, and duodenal AVMs. History of revascularization procedure of lower extremity (10/2019) Bilateral lower extremity stents per Dr. Carrillo. History of vascular surgery (06/12/13) Aorto bi-iliac bypass graft per Dr. Carrillo. Family History Family History Mother Alzheimer disease Father Emphysema of lung Social History Social History Social History: Surrogate medical decision maker: Dhaval Allen, hay. Code status: Full code. Smoking packs per day: 0.5 Smoking cigarettes per day: 10.0 Years smoked: 53 Smoking pack-years: 26.50 Smoking status: Former smoker Tobacco type: cigarettes Second hand tobacco smoke exposure: Yes Smoking end date: 09/20/74 Alcohol intake: former Substance use: never Substance use type: does not use Do You Feel Safe in your Home?: Yes Lack of Transportation: No Lack of Food: Never True Current Housing: I Have Housing Concerned About Future Housing: No Difficulty Paying Gas/Electric Bills: No Difficulty Paying for Meds: No Currently Unemployed: No Education: Bachelor's Degree Difficulty w/ Childcare or Family Care: No Additional living arrangements comments: . Lives with her only son in [place]. Additional occupation/education comments: Retired from the [employer]. Spiritual care concerns: No Meds Home Medications and Allergies Home Medications ?Medication ?Instructions ?Recorded ?Confirmed ?Type aspirin 81 mg tablet 81 mg PO DAILY 05/10/2002/09 History isosorbide mononitrate 30 mg 30 mg PO DAILY #30 tabs 0 09/20/20 02/20/25 Rx tablet,extended release 24 hr melatonin 3 mg tablet 3 mg PO HS PRN Sleep 3 02/20/25 History omeprazole 40 mg capsule,delayed 40 mg PO DAILY 02/20/25 History release oxybutynin chloride 5 mg tablet 5 mg PO HS 12/08/22 History trazodone 50 mg tablet 50 mg PO HS 12/08/22 5 History ergocalciferol (vitamin D2) 1,250 50,000 unit PO WEEKL Y 10/11/23 02/20/25 History mcg (50,000 unit) capsule atorvastatin 80 mg tablet 80 mg PO HS 03/10/24 History lisinopril 40 mg tablet 40 mg PO QPM 08/21/24 History nifedipine 60 mg tablet,extended 60 mg PO Q12H 5 02/20/25 History release folic acid 1 mg tablet 1 mg PO DAILY #30 tabs 01/2702/20/25 Rx ticagrelor 90 mg tablet 90 mg PO Q12H 02/20/2502/20 History Allergies Allergy/AdvReac Type Severity Reaction Status Date / Time Penicillins Allergy Unknown Unknown,Ham Verified 02/20/25 12:56 h Vital Signs Vital Signs Temp Pulse Resp BP Pulse Ox O2 Del Method 02/20/25 16:19 97.9 F 95 20 216/55 H 92 02/20/25 16:00 94 02/20/25 15:50 98 F 97 20 220/54 H 98 02/20/25 15:24 96 02/20/25 14:50 97.9 F 92 20 203/55 H 95 02/20/25 13:50 97.5 F L 88 20 186/36 H 93 02/20/25 13:30 97.3 F L 86 20 195/40 H 93 02/20/25 12:54 Room Air 02/20/25 11:15 89 20 187/52 H 02/20/25 11:05 89 25 H 02/20/25 10:03 97.8 F 89 16 166/46 H 95 02/20/25 09:56 89 18 94 02/20/25 09:43 98.6 F 92 19 149/43 H 94 02/20/25 07:54 97.6 F 87 16 141/37 H 94 Room Air Exam 2 Narrative: GENERAL APPEARANCE: thin, frail, and elderly female in no acute distress HEENT: normocephalic, atraumatic, normal conjunctiva and sclera, nares patient NECK: no lymphadenopathy, thyromegaly, or JVD MOUTH: normal lips, teeth, and gums CARDIOVASCULAR: RRR, normal S1 and S2, no rub RESPIRATORY: coarse breath sounds noted with bibasilar crackles ABDOMEN: soft, nontender, nondistended, positive bowel sounds present EXTREMITIES: no evidence of cyanosis, clubbing, trace edema NEUROLOGICAL: alert and oriented x 3; CN II - XII intact bilaterally; no focal deficits noted Results Lab Results 02/23/25 05:30 02/23/25 05:30 Lab results: Most recent lab results Calcium 8.4 mg/dL (8.4-10.2) 02/20/25 08:13
[2025-02-20 17:26] LABS: MRSA (PCR) NOT DETECTED (NOT DETECTE)
[2025-02-20 18:55] LABS: Hematocrit 27.2 % (37.0-47.0); Hemoglobin 9.2 g/dL (12.0-15.0)
[2025-02-20 19:07] LABS: Iron 121 ug/dL (37-170)
[2025-02-20 19:16] LABS: Percent Iron Saturation 67 % (20-50)
[2025-02-20 19:25] LABS: Troponin I 0.036 ng/mL (0.000-0.034)
[2025-02-20 19:40] LABS: Thyroid Stimulating Hormone Reflex 2.400 uIU/mL (0.465-4.68)
[2025-02-20 19:43] LABS: Ferritin 265.00 ng/mL (11.1-264)
[2025-02-20 20:34] LABS: Vitamin B12 719.0 pg/mL (239-931)
[2025-02-20] MEDS: TICAGRELOR 90 MG TABLET PO (21:24)
[2025-02-20] MEDS: ATORVASTATIN 40 MG TABLET 80 MG PO (21:25)
[2025-02-20 22:01] LABS: Troponin I 0.055 ng/mL (0.000-0.034)
[2025-02-21] VITALS (29 sets, daily range): BP systolic 91–164; BP diastolic 40–88; PULSE 83–151; RESP 16–28; TEMP 36.1–37; O2SAT 92–100
[2025-02-21] MEDS: ACETAMINOPHEN 325 MG TABLET 650 MG PO ×2 (02:24→20:38)
[2025-02-21 05:37] LABS: Hematocrit 22.0 % (37.0-47.0); Hemoglobin 7.3 g/dL (12.0-15.0); Immature Granulocyte Percent A 1.0 % (0-0.5); Immature Platelet Fraction Pct 1.3 % (0.9-11.2); Lymphocytes Absolute Auto 0.69 K/mm3 (0.9-3.2); Mean Corpuscular HGB Conc 33.2 g/dl (32-36); Mean Corpuscular Hemoglobin 30.2 pg (26-34); Mean Corpuscular Volume 90.9 fl (80-100); Nucleated Red Blood Cells Absolute Auto 0.000 K/mm3 (0.0-0.012); Nucleated Red Blood Cells Perc 0.0 % (0.0-0.2); Platelet Count Result 102 k/mm3 (150-375); Red Blood Count 2.42 M/mm3 (4.2-5.4); White Blood Count 8.0 K/mm3 (4.5-10.0)
[2025-02-21 05:52] LABS: Alanine Aminotransferase 8 U/L (6-35); Albumin Level 2.8 g/dL (3.5-5.1); Alkaline Phosphatase 71 U/L (38-126); Anion Gap 8 mmol/L (4-12); Aspartate Amino Transferase 18 U/L (14-36); Bilirubin,Total 0.7 mg/dL (0.2-1.3); Blood Urea Nitrogen 97 mg/dL (7-17); Calcium 8.2 mg/dL (8.4-10.2); Carbon Dioxide 22 mmol/L (22-30); Chloride 103 mmol/L (98-107); Estimated Glomerular Filt Rate 11; Glucose 75 mg/dL (65-110); Magnesium 1.8 mg/dL (1.6-2.3); Potassium 4.5 mmol/L (3.4-5.0); Sodium 133 mmol/L (137-145); Total Protein 5.3 g/dL (6.3-8.2)
[2025-02-21] MEDS: SODIUM CHLORIDE 0.9% IV 1,000 ML 999 ML IV CONT ×2 (06:52→11:41)
[2025-02-21] MEDS: LIDOCAINE/PRILOCAINE CREAM 2.5-2.5% TUBE 1 EACH TOPICAL (08:08)
--- NOTE | 2025-02-21 08:50 | PM.IMPN ---
Progress Note: A&P Assessment and Plan (1) Anemia in ESRD (end-stage renal disease): Code(s): N18.6 - End stage renal disease; D63.1 - Anemia in chronic kidney disease Status: Acute Assessment and Plan: Patient has history of chronic anemia secondary to ESRD and iron deficiency anemia. Had scheduled transfusion for today at [place]?, 02/20. Seen yesterday on 02/19 for generalized weakness. Found to be anemic at that time, however elected to leave AMA verses admission for transfusions. Has received 1 transfusion at this time, receiving 2nd transfusion. Denies previous history of requiring transfusions. However, per chart review has received blood transfusions in April of 2020 and January of 2025. Patient also noted to have dark tarry stools, however she denied. Believe she may be on iron supplement, however reviewed home medications and no iron supplement listed. - Hgb with 5.4 upon admission on 02/20 - transfuse if <7 - trend H&H - check iron, TIBC, TSH, ferritin, B12, folic acid. - check stool occult, add pantoprazole while awaiting results 02/21: Pt with x2 large melanic BMs during HD, positive occult blood test -Received 2 units of PRBCs on 02/20 TIBC 180, all other labs WDL for pt -Hgb this AM 7.3, repeating H/H after melena episodes= 6.4/18.7 -->Ordered x2 units PRBCs to be transfused. -GI consulted today for suspected bleed, plans for EGD in the AM. -Will continue to transfuse if hgb <7 (2) Elevated troponin: Code(s): R79.89 - Other specified abnormal findings of blood chemistry Status: Acute Assessment and Plan: Initial troponin 0.040. Will check 3 and 6 hour. Reviewed the EKGs completed in the ED. Did show some ST depression in V3, however most recent EKG shows resolving depressions. Elevated troponin likely related to patient's ESRD/acute on chronic anemia. Appears to be improving with transfusion. No active chest pain. Continue to trend troponins. Add telemetry. 02/21: Pt continues to deny CP and SOB. Tele 96bpm today -Continue ASA 81mg daily (3) Ground-level fall: Code(s): W18.30XA - Fall on same level, unspecified, initial encounter Status: Acute Assessment and Plan: Sustained a ground level fall this morning on 02/20. Reports low back pain post fall. Fall secondary to bilateral lower extremity weakness, likely related to acute on chronic anemia. Lumbar XR showed no acute abnormality, does have dextro convex scoliosis, grade 1 anterolisthesis of L4 on L5, moderate loss of disc at L4-5 and L5-S1. Add fall precautions. (4) Acute on chronic combined systolic and diastolic CHF (congestive heart failure): Code(s): I50.43 - Acute on chronic combined systolic (congestive) and diastolic (congestive) heart failure Status: Acute Assessment and Plan: History of combined systolic and diastolic heart failure with reduced EF. Most recent echo from September of 2024 showed normal systolic function, estimated EF 60 65%, severe LVH, valvular disease. No hypoxia per review of vital signs. No subjective shortness of breath, cough, or URI symptoms. Reviewed CXR compared to CXR completed on 01/26/2025, small right pleural effusion still present, slightly increased. Pulmonary edema generally improved but still present. No appreciable focal consolidation. Patient's volume status managed via dialysis which he receives Tuesdays, , Saturdays. No recent missed treatments. Monitored toleration of transfusions. Nephrology consulted for inpatient HD. 02/21: Pt dialyzed today, treatment cut short due to melena episodes, will continue labs and HD schedule as well as CHF sx (5) ESRD on hemodialysis: Code(s): N18.6 - End stage renal disease; Z99.2 - Dependence on renal dialysis Status: Chronic Assessment and Plan: History of ESRD on HD, Tuesdays//Saturdays. No recent missed treatments. Mild pulmonary edema on CXR, no hypoxia or subjective shortness of breath. Nephrology consulted for inpatient dialysis. Receiving 2 units of PRBC. Monitor electrolytes. -See above (6) COPD (chronic obstructive pulmonary disease): Qualifiers: COPD type: unspecified COPD Qualified Code(s): J44.9 - Chronic obstructive pulmonary disease, unspecified Code(s): J44.9 - Chronic obstructive pulmonary disease, unspecified Status: Chronic Assessment and Plan: History of COPD, currently stable. No wheezing or crackles on exam. No hypoxia. (7) Hypertension: Qualifiers: Hypertension type: secondary to other renal disorders Qualified Code(s): I15.1 - Hypertension secondary to other renal disorders Code(s): I10 - Essential (primary) hypertension Status: Chronic Assessment and Plan: Who reported the bedside RN that she has not taken her home medications for the past 2 days, however she reports compliance with her medications at time of in-patient interview. Hypertensive this afternoon at 203/55. Will resume home antihypertensives including Imdur, lisinopril, nifedipine. Hydralazine p.r.n. for BP greater than 180/90. Monitor. 02/21: BP much better on morning read after home meds administered, 145/48, will continue to monitor (8) Hyperlipidemia: Qualifiers: Hyperlipidemia type: unspecified Qualified Code(s): E78.5 - Hyperlipidemia, unspecified Code(s): E78.5 - Hyperlipidemia, unspecified Status: Chronic Assessment and Plan: Continue atorvastatin 80 mg daily. Plan Diet: Renal GI Prophylaxis: Pantoprazole DVT Prophylaxis: SCDs IV fluids: None Lines/Tubes: Peripheral IV, left forearm HD fistula Code Status: Full code Time Spent With Patient Time: 45 Subjective Date/time seen: 02/21/25 1247 Interval history: Pt resting in bed having just returned from HD upon my arrival. She states that she had multiple BMs while getting dialyzed which was affecting her HD so it was stopped early, per nursing, 120 was taken off. Pt denies sx. just states being tired. Endorses taking an iron suppl at home. Review of Systems Review of Systems: All systems reviewed & are unremarkable except as noted in HPI and below Exam Const: General: comfortable and no acute distress Other: , female, elderly, nontoxic appearance HENMT: Face/Nose/Sinus: Normal nares present Mouth: Yes moist mucous membranes Eyes: General: appearance normal, both eyes and all related structures Sclera: sclerae normal Pupils: Equal, round and reactive pupils present EOM: EOMs intact bilaterally Resp: Effort & Inspection: normal respiratory effort Other: Bilateral crackles more significant at bases, no wheezing. Cardio: Rate: regular rate Rhythm: regular rhythm Other: S1-S2 present without murmur, rub, ectopy GI: Other: Abdomen soft, nondistended, no TTP. Normoactive bowel sounds in all quadrants. Skin: General skin exam: normal color and no rashes or lesions noted Wounds: no wounds Neuro: Cranial nerves: Yes Equal, round and reactive pupils present Speech: normal speech Motor exam (neuro): 5/5 motor strength present throughout Sensory Exam: normal sensation Other: A&O x4 Extrem: General: normal to inspection Other: Left upper extremity fistula has +thrill and bruit Psych: Mental Status: mental status grossly normal Affect: normal affect Other: Fair insight and judgment Objective Data Vital Signs Vital Signs: Vital Signs - 24 hr 02/20/25 09:43 02/20/25 09:56 02/20/25 10:03 Temperature 98.6 F 97.8 F Pulse Rate 92 89 89 Respiratory Rate 19 18 16 Blood Pressure 149/43 H 166/46 H Pulse Oximetry 94 94 95 Oxygen Delivery 02/20/25 11:05 02/20/25 11:15 02/20/25 12:54 Temperature Pulse Rate 89 89 Respiratory Rate 25 H 20 Blood Pressure 187/52 H Pulse Oximetry Oxygen Delivery Room Air 02/20/25 13:30 02/20/25 13:50 02/20/25 14:50 Temperature 97.3 F L 97.5 F L 97.9 F Pulse Rate 86 88 92 Respiratory Rate 20 20 20 Blood Pressure 195/40 H 186/36 H 203/55 H Pulse Oximetry 93 93 95 Oxygen Delivery 02/20/25 15:24 02/20/25 15:50 02/20/25 16:00 Temperature 98 F Pulse Rate 96 97 94 Respiratory Rate 20 Blood Pressure 220/54 H Pulse Oximetry 98 Oxygen Delivery 02/20/25 16:19 02/20/25 16:50 02/20/25 20:00 Temperature 97.9 F 98.6 F Pulse Rate 95 98 104 H Respiratory Rate 20 18 18 Blood Pressure 216/55 H 216/51 H Pulse Oximetry 92 100 99 Oxygen Delivery Room Air 02/20/25 20:00 02/20/25 20:35 02/20/25 23:17 Temperature 98.8 F Pulse Rate 102 H 104 H Respiratory Rate 18 Blood Pressure 202/51 H 200/60 H Pulse Oximetry 99 Oxygen Delivery 02/21/25 00:00 02/21/25 04:00 02/21/25 06:00 Temperature 97.1 F L Pulse Rate 103 H 96 93 Respiratory Rate 17 Blood Pressure 145/48 H Pulse Oximetry 100 Oxygen Delivery Intake/Output Intake/Output: Intake & Output 1102/19/25 02/20/25 02/21/25 23:59 23:59 23:59 23:59 Intake Total 1070 540 Balance 1070 540 Meds/Results Medications: Active Medications Generic Name Dose Route Start Last Admin Trade Name Freq PRN Reason Stop Dose Admin Acetaminophen 650 mg 02/21/25 01:42 02/21/25 02:24 Acetaminophen 325 Mg Tablet PO 650 mg Q4H PRN Administration Mild Pain (1-3) or Fever Aspirin 81 mg 02/21/25 09:00 Aspirin 81 Mg Chewable Tablet PO DAILY BR[facility]ON Atorvastatin Calcium 80 mg 02/20/25 21:00 02/20/25 21:25 Atorvastatin 40 Mg Tablet PO 80 mg HS BRANDON Administration Epoetin Nathan-epbx 20,000 units 02/21/25 18:27 Epoetin Nathan-Epbx 20,000 Units/Ml Vial IV PUSH 02/21/25 18:28 ONCE ONE Ergocalciferol 1,250 mcg 02/25/25 09:00 Ergocalciferol (Vitamin D2) 1,250 Mcg (50,000 Units) Capsule PO Mo@0900 [facility] Folic Acid 1 mg 02/21/25 09:00 Folic Acid 1 Mg Tablet PO DAILY [facility] Hydralazine HCl 10 mg 02/20/25 15:31 02/20/25 23:30 Hydralazine Hcl 20 Mg/Ml Vial IV PUSH 10 mg Q8H PRN Administration Blood Pressure - High, >180/90 Albumin Human 50 mls @ 999 mls/hr 02/20/25 17:17 Albutein IVPB 03/22/25 17:16 Q10M PRN HYPOTENSION Isosorbide Mononitrate 30 mg 02/21/25 09:00 Isosorbide Mononitrate 30 Mg Tab.Er.24h PO DAILY [facility] Lidocaine/Prilocaine 1 each 02/21/25 07:55 02/21/25 08:08 Lidocaine/Prilocaine Cream 2.5-2.5% Tube TOPICAL 1 each DAILY PRN Administration dialysis Lisinopril 40 mg 02/20/25 18:00 02/21/25 08:30 Lisinopril 20 Mg Tablet PO Not Given QPM [facility] Melatonin 3 mg 02/20/25 15:40 Melatonin 3 Mg Tablet PO HS PRN Sleep Nifedipine 60 mg 02/20/25 21:00 02/20/25 21:24 Nifedipine 30 Mg Tab.Er.24 PO 60 mg Q12HR [facility] Administration Oxybutynin Chloride 5 mg 02/20/25 21:00 02/20/25 21:25 Oxybutynin Chloride 5 Mg Tablet PO 5 mg HS [facility]ANDON Administration Pantoprazole Sodium 40 mg 02/21/25 09:00 Pantoprazole Sodium Iv 40 Mg Vial IV PUSH QAM [facility] Ticagrelor 90 mg 02/20/25 21:00 02/20/25 21:24 Ticagrelor 90 Mg Tablet PO 90 mg Q12H [facility] Administration Trazodone HCl 50 mg 02/20/25 21:00 02/20/25 21:24 Trazodone Hcl 50 Mg Tablet PO 50 mg HS BRANDON Administration Radiology Results: ITS Impressions Chest X-Ray 02/20/25 09:07 Impression: CHF superimposed probable pneumonia. The findings appear relatively unchanged compared to the previous study 01/26/2025 Lumbar Spine X-Ray 02/20/25 09:08 Impression: No acute abnormality. Labs Labs: Laboratory Results - last 24 hr 02/20/25 02/20/25 02/20/25 08:13 11:14 14:44 WBC RBC Hgb Hct MCV MCH MCHC RDW Plt Count MPV Immature Gran % (Auto) Neut % (Auto) Lymph % (Auto) [place] % (Auto) Eos % (Auto) Baso % (Auto) Lymph # (Auto) [place] # (Auto) Eos # (Auto) Baso # (Auto) Abs Immat Gran (auto) Absolute Neuts (auto) Absolute Nucleated RBC Nucleated RBC % % Immature Plt Fraction Sodium Potassium Chloride Carbon Dioxide Anion Gap BUN Creatinine Estim Creat Clear Calc Estimated GFR Glucose Calcium Phosphorus Magnesium Iron TIBC % Saturation Ferritin Total Bilirubin AST ALT Alkaline Phosphatase Troponin I 0.040 H* Total Protein Albumin Vitamin B12 Folate TSH (Reflex) Urine Color Yellow Urine Appearance Clear Urine pH 8.0 Ur Specific [place] 1.014 Urine Protein 2+ H Urine Glucose (UA) Negative Urine Ketones Negative Ur Blood (Man) Negative Urine Nitrate Negative Urine Bilirubin Negative Urine Urobilinogen 1.0 Add Ur Microanalysis Reviewed Leukocyte Esterase Rfl Trace H Urine RBC 0-2 Urine WBC 0-5 Ur Squamous Epith Cells Occasional Urine Bacteria Rare Urine Casts 0-2 Nasal MRSA (PCR) Not detected Blood Type A Positive Antibody Screen Negative Crossmatch See Detail 02/20/25 02/20/25 02/20/25 15:45 18:40 21:29 WBC RBC Hgb 9.2 L D Hct 27.2 L MCV MCH MCHC RDW Plt Count MPV Immature Gran % (Auto) Neut % (Auto) Lymph % (Auto) [place] % (Auto) Eos % (Auto) Baso % (Auto) Lymph # (Auto) [place] # (Auto) Eos # (Auto) Baso # (Auto) Abs Immat Gran (auto) Absolute Neuts (auto) Absolute Nucleated RBC Nucleated RBC % % Immature Plt Fraction Sodium Potassium Chloride Carbon Dioxide Anion Gap BUN Creatinine Estim Creat Clear Calc Estimated GFR Glucose Calcium Phosphorus Magnesium Iron 121 TIBC 180 L % Saturation 67 H Ferritin 265.00 H Total Bilirubin AST ALT Alkaline Phosphatase Troponin I 0.030 D 0.036 H* 0.055 H* D Total Protein Albumin Vitamin B12 719.0 Folate 3.6 TSH (Reflex) 2.400 Urine Color Urine Appearance Urine pH Ur Specific [place] Urine Protein Urine Glucose (UA) Urine Ketones Ur Blood (Man) Urine Nitrate Urine Bilirubin Urine Urobilinogen Add Ur Microanalysis Leukocyte Esterase Rfl Urine RBC Urine WBC Ur Squamous Epith Cells Urine Bacteria Urine Casts Nasal MRSA (PCR) Blood Type Antibody Screen Crossmatch 02/21/25 05:20 WBC 8.0 RBC 2.42 L Hgb 7.3 L Hct 22.0 L MCV 90.9 MCH 30.2 D MCHC 33.2 RDW 15.2 H Plt Count 102 L MPV 9.4 Immature Gran % (Auto) 1.0 H Neut % (Auto) 80.8 H Lymph % (Auto) 8.6 L [place] % (Auto) 8.3 Eos % (Auto) 1.1 Baso % (Auto) 0.2 Lymph # (Auto) 0.69 L [place] # (Auto) 0.7 H Eos # (Auto) 0.1 Baso # (Auto) 0.0 Abs Immat Gran (auto) 0.08 H Absolute Neuts (auto) 6.5 Absolute Nucleated RBC 0.000 Nucleated RBC % 0.0 % Immature Plt Fraction 1.3 Sodium 133 L Potassium 4.5 Chloride 103 Carbon Dioxide 22 Anion Gap 8 BUN 97 H D Creatinine 4.03 H Estim Creat Clear Calc Not Reportable Estimated GFR 11 L Glucose 75 Calcium 8.2 L Phosphorus 2.7 Magnesium 1.8 Iron TIBC % Saturation Ferritin Total Bilirubin 0.7 AST 18 ALT 8 Alkaline Phosphatase 71 Troponin I Total Protein 5.3 L Albumin 2.8 L Vitamin B12 Folate TSH (Reflex) Urine Color Urine Appearance Urine pH Ur Specific [place] Urine Protein Urine Glucose (UA) Urine Ketones Ur Blood (Man) Urine Nitrate Urine Bilirubin Urine Urobilinogen Add Ur Microanalysis Leukocyte Esterase Rfl Urine RBC Urine WBC Ur Squamous Epith Cells Urine Bacteria Urine Casts Nasal MRSA (PCR) Blood Type Antibody Screen Crossmatch Quality VTE Prophylaxis VTE prophylaxis: mechanical ordered
--- NOTE | 2025-02-21 09:14 | P.CDI_ITS ---
CDI Query Clarification Request BMI: 16.9 Nutritional Diagnostic Statement: Please refer to the comprehensive nutrition assessment for further information. If you agree with diagnosis of Severe protein calorie malnutrition related to ESRD and increased energy needs as evidenced by a significant weight loss of - 12% x 5 months, and NFPE findings for severe subcutaneous fat loss and severe muscle wasting. Please specify severity if known: * Mild * Moderate * Severe * Other/Unknown <Lana Zhu RN - Last Filed: 02/21/25 09:14> BMI: 16.9 Nutritional Diagnostic Statement: Please refer to the comprehensive nutrition assessment for further information. If you agree with diagnosis of Severe protein calorie malnutrition related to ESRD and increased energy needs as evidenced by a significant weight loss of - 12% x 5 months, and NFPE findings for severe subcutaneous fat loss and severe muscle wasting. Please specify severity if known: * Severe <Asuncion Aviles APRN - Last Filed: 02/21/25 14:37>
[2025-02-21] MEDS: EPOETIN ALFA-EPBX 20,000 UNITS/ML VIAL 20000 UNITS IV PUSH (11:40)
--- NOTE | 2025-02-21 12:51 | PM.PNNEP ---
Progress Note: A&P Assessment and Plan (1) End stage renal disease: Code(s): N18.6 - End stage renal disease Status: Chronic Assessment and Plan: HD tomorrow continue T/T/S dialysis schedule while hospitalized follow electrolytes, volume status, and clearance (2) Anemia: Qualifiers: Anemia type: unspecified type Qualified Code(s): D64.9 - Anemia, unspecified Code(s): D64.9 - Anemia, unspecified Status: Acute Assessment and Plan: as noted by admission labs partly related to ESRD but cannot discount other etiologies given severity anemia studies noted - evidence of iron deficiency guaiac stool positive high dose Epogen with HD PRBC transfusion per protocol follow trend of H/H (3) CHF (congestive heart failure): Qualifiers: Heart failure type: combined systolic and diastolic Heart failure chronicity: acute on chronic Qualified Code(s): I50.43 - Acute on chronic combined systolic (congestive) and diastolic (congestive) heart failure Code(s): I50.9 - Heart failure, unspecified Status: Chronic Assessment and Plan: known history however, no evidence of exacerbation last Echo (10/02/24) noted: left ventricular ejection fraction is visually estimated to be 60 - 65% severe concentric left ventricular hypertrophy right ventricle is normal in size and systolic function no aortic regurgitation mild mitral regurgitation mild tricuspid regurgitation admission CXR noted in comparison to CXR about a month ago... continue fluid removal with HD as tolerated in an effort to achieve euvolemia follow volume status (4) Hypertension: Qualifiers: Hypertension type: secondary to other renal disorders Qualified Code(s): I15.1 - Hypertension secondary to other renal disorders Code(s): I10 - Essential (primary) hypertension Status: Chronic Assessment and Plan: quite elevated at this time poor BP control at baseline restart home medications PRN IV medications if needed follow trend of hemodynamics (5) Ground-level fall: Code(s): W18.30XA - Fall on same level, unspecified, initial encounter Status: Acute Assessment and Plan: noted on admission no acute injury by imaging studies reportedly secondary to BLE weakness presumably precipitated by anemia fall precautions PT/OT as tolerated (6) COPD (chronic obstructive pulmonary disease): Qualifiers: COPD type: unspecified COPD Qualified Code(s): J44.9 - Chronic obstructive pulmonary disease, unspecified Code(s): J44.9 - Chronic obstructive pulmonary disease, unspecified Status: Chronic Assessment and Plan: known history no evidence of exacerbation use nebulizer treatments PRN Will continue to follow. Subjective Date/time seen: 02/21/25 09:40 Interval history: Follow-up for end stage renal disease on hemodialysis. Tolerating dialysis treatment at the time of my visit (seen on HD at 9:30am); tolerated PRBC transfusion yesterday with improvement/appropriate incrementation in H/H; no apparent distress voiced when seen. Exam Narrative: General: thin and somewhat frail female in NAD Heart: normal S1 and S2; no rub Lungs: coarse breath sounds; decreased at bases Abdomen: soft, nontender, nondistended, positive bowel sounds Extremities: no cyanosis or clubbing; no edema Skin: warm and dry Objective Data Vital Signs Vital Signs: Vital Signs Temp Pulse Resp BP Pulse Ox O2 Del Method 02/21/25 09:30 93 116/47 L 02/21/25 09:17 93 130/45 L 02/21/25 09:05 98.1 F 91 16 114/45 L 97 02/21/25 08:00 105 H 02/21/25 08:00 Room Air 02/21/25 06:00 97.1 F L 93 17 145/48 H 100 02/21/25 04:00 96 02/21/25 00:00 103 H 02/20/25 23:17 200/60 H 02/20/25 20:35 98.8 F 104 H 18 202/51 H 99 02/20/25 20:00 102 H 02/20/25 20:00 104 H 18 99 Room Air 02/20/25 16:50 98.6 F 98 18 216/51 H 100 02/20/25 16:19 97.9 F 95 20 216/55 H 92 02/20/25 16:00 94 02/20/25 15:50 98 F 97 20 220/54 H 98 02/20/25 15:24 96 02/20/25 14:50 97.9 F 92 20 203/55 H 95 02/20/25 13:50 97.5 F L 88 20 186/36 H 93 02/20/25 13:30 97.3 F L 86 20 195/40 H 93 02/20/25 12:54 Room Air Intake/Output Intake/Output: Intake & Output 02/18/25 02/19/25 02/20/25 02/21/25 23:59 23:59 23:59 23:59 Intake Total 1070 540 Output Total 137 Balance 1070 403 Meds/Results Medications: Active Medications Generic Name Dose Route Start Last Admin Trade Name Freq PRN Reason Stop Dose Admin Acetaminophen 650 mg 02/21/25 01:42 02/21/25 02:24 Acetaminophen 325 Mg Tablet PO 650 mg Q4H PRN Administration Mild Pain (1-3) or Fever Aspirin 81 mg 02/21/25 09:00 Aspirin 81 Mg Chewable Tablet PO DAILY [facility] Atorvastatin Calcium 80 mg 02/20/25 21:00 02/20/25 21:25 Atorvastatin 40 Mg Tablet PO 80 mg HS BRANDON Administration Epoetin Nathan-epbx 20,000 units 02/21/25 18:27 02/21/25 11:40 Epoetin Nathan-Epbx 20,000 Units/Ml Vial IV PUSH 02/21/25 18:28 20,000 units ONCE ONE Administration Ergocalciferol 1,250 mcg 02/25/25 09:00 Ergocalciferol (Vitamin D2) 1,250 Mcg (50,000 Units) Capsule PO Mo@0900 [facility] Folic Acid 1 mg 02/21/25 09:00 Folic Acid 1 Mg Tablet PO DAILY [facility] Hydralazine HCl 10 mg 02/20/25 15:31 02/20/25 23:30 Hydralazine Hcl 20 Mg/Ml Vial IV PUSH 10 mg Q8H PRN Administration Blood Pressure - High, >180/90 Albumin Human 50 mls @ 999 mls/hr 02/20/25 17:17 Albutein IVPB 03/22/25 17:16 Q10M PRN HYPOTENSION Isosorbide Mononitrate 30 mg 02/21/25 09:00 Isosorbide Mononitrate 30 Mg Tab.Er.24h PO DAILY [facility] Lidocaine/Prilocaine 1 each 02/21/25 07:55 02/21/25 08:08 Lidocaine/Prilocaine Cream 2.5-2.5% Tube TOPICAL 1 each DAILY PRN Administration dialysis Lisinopril 40 mg 02/20/25 18:00 02/21/25 08:30 Lisinopril 20 Mg Tablet PO Not Given QPM [facility] Melatonin 3 mg 02/20/25 15:40 Melatonin 3 Mg Tablet PO HS PRN Sleep Nifedipine 60 mg 02/20/25 21:00 02/20/25 21:24 Nifedipine 30 Mg Tab.Er.24 PO 60 mg Q12HR [facility] Administration Oxybutynin Chloride 5 mg 02/20/25 21:00 02/20/25 21:25 Oxybutynin Chloride 5 Mg Tablet PO 5 mg HS BRANDON Administration Pantoprazole Sodium 40 mg 02/21/25 09:00 Pantoprazole Sodium Iv 40 Mg Vial IV PUSH QAM [facility] Ticagrelor 90 mg 02/20/25 21:00 02/20/25 21:24 Ticagrelor 90 Mg Tablet PO 90 mg Q12H [facility] Administration Trazodone HCl 50 mg 02/20/25 21:00 02/20/25 21:24 Trazodone Hcl 50 Mg Tablet PO 50 mg HS BRANDON Administration Radiology Results: ITS Impressions Chest X-Ray 02/20/25 09:07 Impression: CHF superimposed probable pneumonia. The findings appear relatively unchanged compared to the previous study 01/26/2025 Lumbar Spine X-Ray 02/20/25 09:08 Impression: No acute abnormality. Labs Labs: Laboratory Tests 02/21/25 05:20 02/21/25 05:20 Glucose 75 Calcium 8.2 L Phosphorus 2.7 Magnesium 1.8 Total Bilirubin 0.7 AST 18 ALT 8 Alkaline Phosphatase 71 Total Protein 5.3 L Albumin 2.8 L
[2025-02-21 14:18] LABS: IFOB Positive Control Positive; Immunochemical Fecal Occult Bl Positive (N)
--- NOTE | 2025-02-21 14:27 | WPDGICN ---
Assessment and Plan Assessment and plan (1) Acute on chronic anemia: Code(s): D64.9 - Anemia, unspecified Status: Acute Assessment and Plan: she has known anemia but noted drop h/h transfuse to keep hgb above 7 also avm in 2020, will do egd tomorrow- if more avm then will treat with apc (2) ESRD (end stage renal disease) on dialysis: Code(s): N18.6 - End stage renal disease; Z99.2 - Dependence on renal dialysis Status: Acute Assessment and Plan: on dialysis (3) Acute on chronic combined systolic and diastolic CHF (congestive heart failure): Code(s): I50.43 - Acute on chronic combined systolic (congestive) and diastolic (congestive) heart failure Status: Acute (4) Gastric AVM: Code(s): K31.819 - Angiodysplasia of stomach and duodenum without bleeding Status: Acute Assessment and Plan: egd tomorrow to assess if more avm (5) Melena: Code(s): K92.1 - Melena Status: Acute GI Consult Note Consult date/time: 02/21/25 14:27 Reason for consult: acute on chronic anemia HPI: Alina Allen is a 79 year old female with PMH of hyperparathyroidism, ESRD on HD (), chronic anemia secondary to ESRD, COPD, peripheral artery disease, combined systolic/diastolic, gastric/duodenal AVM treated in 2020 with APC, and hypertension presents here with generalized weakness a ground level fall. She came to ER after she fell at home because generalized weakness. She is poor historian and used medical records. She did not hit her head or lose consciousness. She has a history of anemia secondary to ESRD but also 2020 had egd with gastric/duodenal AVM treated with apc, colonoscopy only diverticulosis. Staff reports that she had a dark stool but she is using iron supplement. ED workup showed: No leukocytosis, Hgb 5.4 (5.3 and 6.0 on 02/19, 8.4 on 01/27), sodium 134, creatinine 3.54. CXR showed CHF superimposed probable pneumonia, however findings relatively unchanged compared to previous study on 01/26. Review of Systems Constitutional: Constitutional: Reports fatigue Eyes: Eyes: Denies blurry vision ENT: Reports Normal hearing present Cardiovascular: Cardiovascular: Denies chest pain Respiratory: Respiratory: Denies cough Gastrointestinal: Gastrointestinal: Reports no additional gastrointestinal complaints Genitourinary: Comments: on dialysis Musculoskeletal: Musculoskeletal: Reports back pain Integumentary/Breasts: Skin/Breast: Denies rash Neurologic: Denies Abnormal speech present Psychiatric: Psychiatric: Denies homicidal ideation [facility] Past Medical History Medical History (Updated 02/21/25 @ 14:32 by Jose Rahman MD) Gastric AVM Melena Acute on chronic anemia Anxiety and depression DVT (deep venous thrombosis) COPD with emphysema Anemia in ESRD (end-stage renal disease) LINNETTE (iron deficiency anemia) End-stage renal disease on hemodialysis Tuesday. Dialysis managed by Dr. Joshua Motley Peripheral arterial disease Cardiomyopathy Presumed ischemic with moderately sized moderately severe reversible defect and small mild non reversible infarct on Lexiscan stress on 09/12/2020. Combined systolic and diastolic congestive heart failure Echocardiogram on 09/10/2020 EF of 20 to 25%, grade 1 diastolic dysfunction, reduced RV systolic function. 12/2020 echo EF 40-46% with segmental wall motion abnormalities Hypertension Hypertensive cardiomegaly Hyperparathyroidism due to ESRD on dialysis Hyperlipidemia Surgical History Surgical History History of tonsillectomy Surgically constructed arteriovenous fistula Left upper arm History of colonoscopy History of colon polyps, internal hemorrhoids, and diverticulosis. History of esophagogastroduodenoscopy History of gastric erosions, gastric polyps, and duodenal AVMs. History of revascularization procedure of lower extremity (10/2019) Bilateral lower extremity stents per Dr. Carrillo. History of vascular surgery (06/12/13) Aorto bi-iliac bypass graft per Dr. Carrillo. Family History Family History Mother Alzheimer disease Father Emphysema of lung Social History Social History Social History: Surrogate medical decision maker: hay Lang. Code status: Full code. Smoking packs per day: 0.5 Smoking cigarettes per day: 10.0 Years smoked: 53 Smoking pack-years: 26.50 Smoking status: Former smoker Tobacco type: cigarettes Second hand tobacco smoke exposure: Yes Smoking end date: 09/20/74 Alcohol intake: former Substance use: never Substance use type: does not use Do You Feel Safe in your Home?: Yes Lack of Transportation: No Lack of Food: Never True Current Housing: I Have Housing Concerned About Future Housing: No Difficulty Paying Gas/Electric Bills: No Difficulty Paying for Meds: No Currently Unemployed: No Education: Bachelor's Degree Difficulty w/ Childcare or Family Care: No Additional living arrangements comments: . Lives with her only son in [place]. Additional occupation/education comments: Retired from the [employer]. Spiritual care concerns: No Meds Home Medications and Allergies Home Medications ?Medication ?Instructions ?Recorded ?Confirmed ?Type aspirin 81 mg tablet 81 mg PO DAILY 05/10/20 02/20/25 History isosorbide mononitrate 30 mg 30 mg PO DAILY #30 tabs 09/20/20 02/20/25 Rx tablet,extended release 24 hr melatonin 3 mg tablet 3 mg PO HS PRN Sleep 12/08/22 02/20/25 History omeprazole 40 mg capsule,delayed 40 mg PO DAILY 12/08/22 02/20/25 History release oxybutynin chloride 5 mg tablet 5 mg PO HS 12/08/22 02/20/25 History trazodone 50 mg tablet 50 mg PO HS 12/08/22 02/20/25 History ergocalciferol (vitamin D2) 1,250 50,000 unit PO WEEKLY 10/11/23 02/20/25 History mcg (50,000 unit) capsule atorvastatin 80 mg tablet 80 mg PO HS 03/10/24 02/20/25 History lisinopril 40 mg tablet 40 mg PO QPM 08/21/24 02/20/25 History nifedipine 60 mg tablet,extended 60 mg PO Q12H 08/21/24 02/20/25 History release folic acid 1 mg tablet 1 mg PO DAILY #30 tabs 01/27/25 02/20/25 Rx ticagrelor 90 mg tablet 90 mg PO Q12H 02/20/25 02/20/25 History Allergies Allergy/AdvReac Type Severity Reaction Status Date / Time Penicillins Allergy Unknown Unknown,Ham Verified 02/20/25 12:56 h Vital Signs Vital Signs - 24 hr 02/20/25 14:50 02/20/25 15:24 02/20/25 15:50 Temperature 97.9 F 98 F Pulse Rate 92 96 97 Respiratory Rate 20 20 Blood Pressure 203/55 H 220/54 H Pulse Oximetry 95 98 Oxygen Delivery 02/20/25 16:00 02/20/25 16:19 02/20/25 16:50 Temperature 97.9 F 98.6 F Pulse Rate 94 95 98 Respiratory Rate 20 18 Blood Pressure 216/55 H 216/51 H Pulse Oximetry 92 100 Oxygen Delivery 02/20/25 20:00 02/20/25 20:00 02/20/25 20:35 Temperature 98.8 F Pulse Rate 104 H 102 H 104 H Respiratory Rate 18 18 Blood Pressure 202/51 H Pulse Oximetry 99 99 Oxygen Delivery Room Air 02/20/25 23:17 02/21/25 00:00 02/21/25 04:00 Temperature Pulse Rate 103 H 96 Respiratory Rate Blood Pressure 200/60 H Pulse Oximetry Oxygen Delivery 02/21/25 06:00 02/21/25 08:00 02/21/25 08:00 Temperature 97.1 F L Pulse Rate 93 105 H Respiratory Rate 17 Blood Pressure 145/48 H Pulse Oximetry 100 Oxygen Delivery Room Air 02/21/25 09:05 02/21/25 09:17 02/21/25 09:30 Temperature 98.1 F Pulse Rate 91 93 93 Respiratory Rate 16 Blood Pressure 114/45 L 130/45 L 116/47 L Pulse Oximetry 97 Oxygen Delivery 02/21/25 09:45 02/21/25 10:00 02/21/25 10:15 Temperature Pulse Rate 106 H 99 103 H Respiratory Rate Blood Pressure 101/47 L 101/48 L 91/40 L Pulse Oximetry Oxygen Delivery 02/21/25 10:30 02/21/25 10:45 02/21/25 11:00 Temperature Pulse Rate 104 H 94 93 Respiratory Rate Blood Pressure 136/54 L 113/44 L 119/47 L Pulse Oximetry Oxygen Delivery 02/21/25 11:15 02/21/25 11:30 02/21/25 11:45 Temperature Pulse Rate 89 91 91 Respiratory Rate Blood Pressure 123/44 L 130/41 L 128/44 L Pulse Oximetry Oxygen Delivery 02/21/25 12:00 02/21/25 12:00 02/21/25 12:17 Temperature Pulse Rate 99 93 92 Respiratory Rate Blood Pressure 124/49 L 126/48 L Pulse Oximetry Oxygen Delivery 02/21/25 12:29 Temperature 98.6 F Pulse Rate 92 Respiratory Rate 16 Blood Pressure 143/88 H Pulse Oximetry 98 Oxygen Delivery Exam Const: General: comfortable and no acute distress HENMT: Face/Nose/Sinus: Normal nares present Mouth: Yes moist mucous membranes Eyes: General: appearance normal, both eyes and all related structures Sclera: sclerae normal Pupils: Equal, round and reactive pupils present EOM: EOMs intact bilaterally Neck: Neck: supple Resp: Effort & Inspection: normal respiratory effort Cardio: Rate: regular rate Rhythm: regular rhythm GI: GI Palp: Yes Soft to palpation and No Tenderness to palpation present (GI) Auscultation: normal bowel sounds Skin: General skin exam: normal color and no rashes or lesions noted Neuro: Speech: normal speech Motor exam (neuro): 5/5 motor strength present throughout Other: A&O x4 Extrem: General: normal to inspection Other: Left upper extremity fistula has +thrill and bruit Psych: Mental Status: mental status grossly normal Affect: normal affect Other: Fair insight and judgment Results Labs 02/21/25 05:20 02/21/25 05:20 Labs: Short CBC 02/20/25 02/21/25 Range/Units 18:40 05:20 WBC 8.0 (4.5-10.0) K/mm3 Hgb 9.2 L D 7.3 L (12.0-15.0) g/dL Hct 27.2 L 22.0 L (37.0-47.0) % Plt Count 102 L (150-375) k/mm3 BMP 02/21/25 05:20 Sodium 133 L Potassium 4.5 Chloride 103 Carbon Dioxide 22 BUN 97 H D Creatinine 4.03 H Glucose 75 Calcium 8.2 L Cardiac Enzymes 02/20/25 02/20/25 02/20/25 Range/Units 15:45 18:40 21:29 Troponin I 0.030 D 0.036 H* 0.055 H* D (0.000-0.034) ng/mL Liver Function 02/21/25 Range/Units 05:20 Total Bilirubin 0.7 (0.2-1.3) mg/dL AST 18 (14-36) U/L ALT 8 (6-35) U/L Alkaline Phosphatase 71 (38-126) U/L Albumin 2.8 L (3.5-5.1) g/dL
[2025-02-21] MEDS: ASPIRIN 81 MG CHEWABLE TABLET PO (14:50)
[2025-02-21] MEDS: FOLIC ACID 1 MG TABLET PO (14:51)
[2025-02-21] MEDS: ISOSORBIDE MONONITRATE 30 MG TAB.ER.24H PO (14:51)
[2025-02-21] MEDS: TICAGRELOR 90 MG TABLET PO (14:52)
[2025-02-21] MEDS: PANTOPRAZOLE SODIUM IV 40 MG VIAL IV PUSH (14:52)
[2025-02-21 15:15] LABS: Hematocrit 18.7 % (37.0-47.0); Hemoglobin 6.4 g/dL (12.0-15.0)
[2025-02-21] MEDS: SODIUM CHLORIDE 0.9% IV 250 ML 30 ML IV CONT (16:10)
--- NOTE | 2025-02-21 19:15 | PC.NURSE ---
This RN, Shanti Murillo, has reviewed documentation by ELLIOTT Malhotra, from 02/21/25 [id number] and agree with the findings.
[2025-02-21] MEDS: LIDOCAINE 5% PATCH 1 PATCH TRANSDERM (22:24)
[2025-02-21] MEDS: MELATONIN 3 MG TABLET PO (22:25)
[2025-02-21] MEDS: ATORVASTATIN 40 MG TABLET 80 MG PO (22:25)
[2025-02-22] VITALS (16 sets, daily range): BP systolic 131–163; BP diastolic 41–65; PULSE 65–90; RESP 16–24; TEMP 36.2–37; O2SAT 10–100
[2025-02-22 03:27] LABS: Hematocrit 27.5 % (37.0-47.0); Hemoglobin 9.4 g/dL (12.0-15.0)
[2025-02-22 03:29] LABS: Hematocrit 27.4 % (37.0-47.0); Hemoglobin 9.2 g/dL (12.0-15.0); Immature Granulocyte Percent A 0.5 % (0-0.5); Immature Platelet Fraction Pct 1.8 % (0.9-11.2); Lymphocytes Absolute Auto 0.49 K/mm3 (0.9-3.2); Mean Corpuscular HGB Conc 33.6 g/dl (32-36); Mean Corpuscular Hemoglobin 30.1 pg (26-34); Mean Corpuscular Volume 89.5 fl (80-100); Nucleated Red Blood Cells Absolute Auto 0.000 K/mm3 (0.0-0.012); Nucleated Red Blood Cells Perc 0.0 % (0.0-0.2); Platelet Count Result 95 k/mm3 (150-375); Red Blood Count 3.06 M/mm3 (4.2-5.4); White Blood Count 8.0 K/mm3 (4.5-10.0)
[2025-02-22 03:49] LABS: Alanine Aminotransferase 10 U/L (6-35); Albumin Level 2.7 g/dL (3.5-5.1); Alkaline Phosphatase 81 U/L (38-126); Anion Gap 3 mmol/L (4-12); Aspartate Amino Transferase 20 U/L (14-36); Bilirubin,Total 0.9 mg/dL (0.2-1.3); Blood Urea Nitrogen 45 mg/dL (7-17); Calcium 8.4 mg/dL (8.4-10.2); Carbon Dioxide 26 mmol/L (22-30); Chloride 102 mmol/L (98-107); Estimated Glomerular Filt Rate 21; Glucose 80 mg/dL (65-110); Potassium 4.1 mmol/L (3.4-5.0); Sodium 131 mmol/L (137-145); Total Protein 5.1 g/dL (6.3-8.2)
[2025-02-22 04:18] LABS: Hepatitis B Surface Antigen Negative (Negative)
[2025-02-22 04:35] LABS: Hepatitis B Surface Anti Res Negative
[2025-02-22] MEDS: LIDOCAINE 5% PATCH 1 PATCH TRANSDERM (09:57)
[2025-02-22] MEDS: PANTOPRAZOLE SODIUM IV 40 MG VIAL IV PUSH (09:57)
[2025-02-22] MEDS: SODIUM CHLORIDE 0.9% IV 500 ML 10 ML IV CONT (10:56)
--- NOTE | 2025-02-22 10:59 | WPDANESEPPF ---
Anes - Initial Pre Proc Eval Procedure: Operation Date: 02/22/25 12:30 Proposed Procedures p Esophagogastroduodenoscopy - Jeff Gramajo MD Date/Time: 02/22/25 10:59 Surgeon: Eric Earl DO Pre Op Diagnosis: Anemia Patient Data Age: 79 Gender: F Height: 1.47 m Weight: 44.5 kg Last Vital Signs Temp 37.0 C 02/22/25 10:50 Pulse 72 02/22/25 10:50 Resp 16 02/22/25 10:50 BP 152/47 H 02/22/25 10:50 Pulse Ox 97 02/22/25 10:50 O2 Del Method Room Air 02/22/25 10:50 Allergies Allergy/AdvReac Type Severity Reaction Status Date / Time Penicillins Allergy Unknown Unknown,Ham Verified 02/20/25 12:56 h Home Medications ?Medication ?Instructions ?Recorded ?Confirmed ?Type aspirin 81 mg tablet 81 mg PO DAILY 05/10/20 02/20/25 History isosorbide mononitrate 30 mg 30 mg PO DAILY #30 tabs 09/20/20 02/20/25 Rx tablet,extended release 24 hr melatonin 3 mg tablet 3 mg PO HS PRN Sleep 12/08/22 02/20/25 History omeprazole 40 mg capsule,delayed 40 mg PO DAILY 12/08/22 02/20/25 History release oxybutynin chloride 5 mg tablet 5 mg PO HS 12/08/22 02/20/25 History trazodone 50 mg tablet 50 mg PO HS 12/08/22 02/20/25 History ergocalciferol (vitamin D2) 1,250 50,000 unit PO WEEKLY 10/11/23 02/20/25 History mcg (50,000 unit) capsule atorvastatin 80 mg tablet 80 mg PO HS 03/10/24 02/20/25 History lisinopril 40 mg tablet 40 mg PO QPM 08/21/24 02/20/25 History nifedipine 60 mg tablet,extended 60 mg PO Q12H 08/21/24 02/20/25 History release folic acid 1 mg tablet 1 mg PO DAILY #30 tabs 01/27/25 02/20/25 Rx ticagrelor 90 mg tablet 90 mg PO Q12H 02/20/25 02/20/25 History Laboratory Tests 02/20/25 02/21/25 02/21/25 08:13 12:51 14:40 WBC RBC Hgb 6.4 L* g/dL (12.0-15.0) Hct 18.7 L* % (37.0-47.0) MCV MCH MCHC RDW Plt Count MPV Immature Gran % (Auto) Neut % (Auto) Lymph % (Auto) Carlton % (Auto) Eos % (Auto) Baso % (Auto) Lymph # (Auto) Carlton # (Auto) Eos # (Auto) Baso # (Auto) Abs Immat Gran (auto) Absolute Neuts (auto) Absolute Nucleated RBC Nucleated RBC % % Immature Plt Fraction Sodium Potassium Chloride Carbon Dioxide Anion Gap BUN Creatinine Estim Creat Clear Calc Estimated GFR Glucose Calcium Total Bilirubin AST ALT Alkaline Phosphatase Total Protein Albumin Stl Occult Blood (IFOB) Positive H (N) Hep Bs Antigen Hep Bs Antibody Blood Type A Positive Antibody Screen Negative Crossmatch See Detail 02/22/25 02/22/25 02/22/25 03:22 03:22 03:22 WBC 8.0 K/mm3 (4.5-10.0) RBC 3.06 L M/mm3 (4.2-5.4) Hgb 9.2 L g/dL 9.4 L g/dL (12.0-15.0) (12.0-15.0) Hct 27.4 L % 27.5 L % (37.0-47.0) (37.0-47.0) MCV 89.5 fl (80-100) MCH 30.1 pg (26-34) MCHC 33.6 g/dl (32-36) RDW 14.8 H % (11.5-14.5) Plt Count 95 L k/mm3 (150-375) MPV 9.4 fl (7.4-10.4) Immature Gran % (Auto) 0.5 % (0-0.5) Neut % (Auto) 81.8 H % (45.5-73.1) Lymph % (Auto) 6.1 L % (18.3-44.2) Carlton % (Auto) 8.2 % (2.6-8.5) Eos % (Auto) 3.1 % (0-4.4) Baso % (Auto) 0.3 % (0.2-1.2) Lymph # (Auto) 0.49 L K/mm3 (0.9-3.2) Carlton # (Auto) 0.7 H K/mm3 (0.1-0.6) Eos # (Auto) 0.3 K/mm3 (0-0.3) Baso # (Auto) 0.0 K/mm3 (0.0-0.1) Abs Immat Gran (auto) 0.04 H K/mm3 (0.00-0.031) Absolute Neuts (auto) 6.5 K/mm3 (1.3-6.7) Absolute Nucleated RBC 0.000 K/mm3 (0.0-0.012) Nucleated RBC % 0.0 % (0.0-0.2) % Immature Plt Fraction 1.8 % (0.9-11.2) Sodium 131 L mmol/L (137-145) Potassium 4.1 mmol/L (3.4-5.0) Chloride 102 mmol/L (98-107) Carbon Dioxide 26 mmol/L (22-30) Anion Gap 3 L mmol/L (4-12) BUN 45 H D mg/dL (7-17) Creatinine 2.29 H mg/dL (0.7-1.0) Estim Creat Clear Calc Not Reportable Estimated GFR 21 L (59 - ) Glucose 80 mg/dL (65-110) Calcium 8.4 mg/dL (8.4-10.2) Total Bilirubin 0.9 mg/dL (0.2-1.3) AST 20 U/L (14-36) ALT 10 U/L (6-35) Alkaline Phosphatase 81 U/L (38-126) Total Protein 5.1 L g/dL (6.3-8.2) Albumin 2.7 L g/dL (3.5-5.1) Stl Occult Blood (IFOB) Hep Bs Antigen Negative (Negative) Hep Bs Antibody Negative Blood Type Antibody Screen Crossmatch Patient hx anesthesia problems: none Family hx anesthesia problems: none Results Review: All pre-operative results and documents have been reviewed as part of the pre-operative evaluation. [facility] Past Medical History Medical History (Updated 02/21/25 @ 17:18 by Rodolfo Mckeon MD) Gastric AVM Melena Acute on chronic anemia Anxiety and depression DVT (deep venous thrombosis) COPD with emphysema Anemia in ESRD (end-stage renal disease) LINNETTE (iron deficiency anemia) End-stage renal disease on hemodialysis Tuesday. Dialysis managed by Dr. Joshua Motley Peripheral arterial disease Cardiomyopathy Presumed ischemic with moderately sized moderately severe reversible defect and small mild non reversible infarct on Lexiscan stress on 09/12/2020. Combined systolic and diastolic congestive heart failure Echocardiogram on 09/10/2020 EF of 20 to 25%, grade 1 diastolic dysfunction, reduced RV systolic function. 12/2020 echo EF 40-46% with segmental wall motion abnormalities Hypertension Hypertensive cardiomegaly Hyperparathyroidism due to ESRD on dialysis Hyperlipidemia Surgical History Surgical History History of tonsillectomy Surgically constructed arteriovenous fistula Left upper arm History of colonoscopy History of colon polyps, internal hemorrhoids, and diverticulosis. History of esophagogastroduodenoscopy History of gastric erosions, gastric polyps, and duodenal AVMs. History of revascularization procedure of lower extremity (10/2019) Bilateral lower extremity stents per Dr. Carrillo. History of vascular surgery (06/12/13) Aorto bi-iliac bypass graft per Dr. Carrillo. Family History Family History Mother Alzheimer disease Father Emphysema of lung Social History Social History Social History: Surrogate medical decision maker: hay Lang. Code status: Full code. Smoking packs per day: 0.5 Smoking cigarettes per day: 10.0 Years smoked: 53 Smoking pack-years: 26.50 Smoking status: Former smoker Tobacco type: cigarettes Second hand tobacco smoke exposure: Yes Smoking end date: 09/20/74 Alcohol intake: former Substance use: never Substance use type: does not use Do You Feel Safe in your Home?: Yes Lack of Transportation: No Lack of Food: Never True Current Housing: I Have Housing Concerned About Future Housing: No Difficulty Paying Gas/Electric Bills: No Difficulty Paying for Meds: No Currently Unemployed: No Education: Bachelor's Degree Difficulty w/ Childcare or Family Care: No Additional living arrangements comments: . Lives with her only son in [place]. Additional occupation/education comments: Retired from the [employer]. Spiritual care concerns: No Anes - Eval Final PreProcedure Day of Procedure 02/22/25 10:59 Patient weight: normal Heart: regular rate and rhythm Lungs: clear to auscultation and normal air movement Airway: Mallampati scale class II Neurological: alert and oriented Last oral intake: >/= 8 hours ASA classification: IV Emergent: no Anesthetic plan: proceed Anesthesia type and monitoring: general GIVS and standard monitoring Results Review: All pre-operative results and documents have been reviewed as part of the pre-operative evaluation. Informed Consent: The patient's anesthetic plan and its attendant risks and benefits were discussed with the patient/family/POA. Questions were solicited and answers provided to the satisfaction of the patient/family/POA.
[2025-02-22] MEDS: SIMETHICONE ORAL SUSPENSION 20 MG/0.3 ML 30 ML BOTTLE 1.8 ML PO (11:06)
--- NOTE | 2025-02-22 11:40 | S_PTH ---
PATIENT: Alina Allen LOC: [id number] U#:[id number] AGE/SX: 79/F ROOM: 330 RE02/21/[address]: Asuncion Aviles APRN : 1945 BED: 02 DIS: 02/24/2025 SPEC #: [id number] RECD: 02/22/25 13:20 STATUS: BARTOLO RERadha #: [id number] NABIL: 02/22/25 11:[address]: Jeff Gramajo DEPT: [facility] [place] Surgical RECD BY: Nelida Hoskins ENTERED: 02/22/25 13:21 SP TYPE: Surgical OTHR DR: MD Asuncion Mcelroy APRN Ramakrishna R. Nalluri, DO Edmundo A. Rodriguez-Frias, MD Hollie A. Yoder, DELIVERY RECRUITER Tissues: A - Gastric Biopsy B - Gastric Biopsy Procedures: Hematoxylin and Eosin Stain Gross and Microscopic Level 4
[2025-02-22] MEDS: CYCLOBENZAPRINE HCL 5 MG TABLET PO (12:32)
--- NOTE | 2025-02-22 13:34 | P.PNIM_ITS ---
Progress Note: A&P Assessment and Plan (1) Anemia in ESRD (end-stage renal disease): Code(s): N18.6 - End stage renal disease; D63.1 - Anemia in chronic kidney disease Status: Acute Assessment and Plan: Patient has history of chronic anemia secondary to ESRD and iron deficiency anemia. Had scheduled transfusion for today at [facility]?, 02/20. Seen yesterday on 02/19 for generalized weakness. Found to be anemic at that time, however elected to leave AMA verses admission for transfusions. Has received 1 transfusion at this time, receiving 2nd transfusion. Denies previous history of requiring transfusions. However, per chart review has received blood transfusions in April of 2020 and January of 2025. Patient also noted to have dark tarry stools, however she denied. Believe she may be on iron supplement, however reviewed home medications and no iron supplement listed. - Hgb with 5.4 upon admission on 02/20 - transfuse if <7 - trend H&H - check iron, TIBC, TSH, ferritin, B12, folic acid. - check stool occult, add pantoprazole while awaiting results 02/21: Pt with x2 large melanic BMs during HD, positive occult blood test -Received 2 units of PRBCs on 02/20 TIBC 180, all other labs WDL for pt -Hgb this AM 7.3, repeating H/H after melena episodes= 6.4/18.7 -->Ordered x2 units PRBCs to be transfused. -GI consulted today for suspected bleed, plans for EGD in the AM. -Will continue to transfuse if hgb <7 02/22: Pt with no other melanic BMs. -Hgb 9.4 this AM, will continue to trend labs -EGD performed today with no bleed found -Heme consulted for further recommendations and workup (2) Elevated troponin: Code(s): R79.89 - Other specified abnormal findings of blood chemistry Status: Acute Assessment and Plan: Initial troponin 0.040. Will check 3 and 6 hour. Reviewed the EKGs completed in the ED. Did show some ST depression in V3, however most recent EKG shows resolving depressions. Elevated troponin likely related to patient's ESRD/acute on chronic anemia. Appears to be improving with transfusion. No active chest pain. Continue to trend troponins. Add telemetry. 11/13: Pt continues to deny CP and SOB. Tele 96bpm today -Continue ASA 81mg daily 02/22: Continues to deny CP/SOB or any other sx. (3) Ground-level fall: Code(s): W18.30XA - Fall on same level, unspecified, initial encounter Status: Acute Assessment and Plan: Sustained a ground level fall this morning on 02/20. Reports low back pain post fall. Fall secondary to bilateral lower extremity weakness, likely related to acute on chronic anemia. Lumbar XR showed no acute abnormality, does have dextro convex scoliosis, grade 1 anterolisthesis of L4 on L5, moderate loss of disc at L4-5 and L5-S1. Add fall precautions. 02/22: Pt c/o lower back pain. -Medications limited due to EGD procedure today, Flexeril 5mg PO ordered (4) Acute on chronic combined systolic and diastolic CHF (congestive heart failure): Code(s): I50.43 - Acute on chronic combined systolic (congestive) and diastolic (congestive) heart failure Status: Acute Assessment and Plan: History of combined systolic and diastolic heart failure with reduced EF. Most recent echo from September of 2024 showed normal systolic function, estimated EF 60 65%, severe LVH, valvular disease. No hypoxia per review of vital signs. No subjective shortness of breath, cough, or URI symptoms. Reviewed CXR compared to CXR completed on 01/26/2025, small right pleural effusion still present, slightly increased. Pulmonary edema generally improved but still present. No appreciable focal consolidation. Patient's volume status managed via dialysis which he receives Tuesdays, , Saturdays. No recent missed treatments. Monitored toleration of transfusions. Nephrology consulted for inpatient HD. 02/21: Pt dialyzed today, treatment cut short due to melena episodes, will continue labs and HD schedule as well as CHF sx 02/22: Pt fluid status stable, denies CP.SOB. (5) ESRD on hemodialysis: Code(s): N18.6 - End stage renal disease; Z99.2 - Dependence on renal dialysis Status: Chronic Assessment and Plan: History of ESRD on HD, Tuesdays//Saturdays. No recent missed treatments. Mild pulmonary edema on CXR, no hypoxia or subjective shortness of breath. Nephrology consulted for inpatient dialysis. Receiving 2 units of PRBC. Monitor electrolytes. -See above (6) COPD (chronic obstructive pulmonary disease): Qualifiers: COPD type: unspecified COPD Qualified Code(s): J44.9 - Chronic obstructive pulmonary disease, unspecified Code(s): J44.9 - Chronic obstructive pulmonary disease, unspecified Status: Chronic Assessment and Plan: History of COPD, currently stable. No wheezing or crackles on exam. No hypoxia. (7) Hypertension: Qualifiers: Hypertension type: secondary to other renal disorders Qualified Code(s): I15.1 - Hypertension secondary to other renal disorders Code(s): I10 - Essential (primary) hypertension Status: Chronic Assessment and Plan: Who reported the bedside RN that she has not taken her home medications for the past 2 days, however she reports compliance with her medications at time of in- patient interview. Hypertensive this afternoon at 203/55. Will resume home antihypertensives including Imdur, lisinopril, nifedipine. Hydralazine p.r.n. for BP greater than 180/90. Monitor. 02/21: BP much better on morning read after home meds administered, 145/48, will continue to monitor 02/22: 130's/50's. (8) Hyperlipidemia: Qualifiers: Hyperlipidemia type: unspecified Qualified Code(s): E78.5 - Hyp erlipidemia, unspecified Code(s): E78.5 - Hyperlipidemia, unspecified Status: Chronic Assessment and Plan: Continue atorvastatin 80 mg daily. Plan Diet: Renal GI Prophylaxis: Pantoprazole DVT Prophylaxis: SCDs IV fluids: None Lines/Tubes: Peripheral IV, left forearm HD fistula Code Status: Full code Disposition: Pending heme consult, lab trends Time Spent With Patient Time: 45 Subjective Date/time seen: 02/22/25 1020 Interval history: Pt resting in bed sleeping upon my arrival, she is arousable to voice. Pt reporting lower back pain 8/10 from her fall. Ordered her 5mg Flexeril for this pain. Pt to undergo EGD today to r/o bleed. pt with no other sx or no additional melena episodes. Review of Systems Review of Systems: All systems reviewed & are unremarkable except as noted in HPI and below Exam Const: General: comfortable and no acute distress Other: , female, elderly, nontoxic appearance HENMT: Face/Nose/Sinus: Normal nares present Other: tacky mucous membranes Eyes: General: appearance normal, both eyes and all related structures Sclera: sclerae normal Pupils: Equal, round and reactive pupils present EOM: EOMs intact bilaterally Resp: Effort & Inspection: normal respiratory effort Other: Bilateral crackles more significant at bases, no wheezing. Cardio: Rate: regular rate Rhythm: regular rhythm Other: S1-S2 present without murmur, rub, ectopy GI: Other: Abdomen soft, nondistended, no TTP. Normoactive bowel sounds in all quadrants. Back/Spine/Pelvis: Back: back tenderness (paraspinal bilaterally ttp) Skin: General skin exam: normal color and no rashes or lesions noted Wounds: no wounds Neuro: Cranial nerves: Yes Equal, round and reactive pupils present Speech: normal speech Motor exam (neuro): Normal motor muscle tone present throughout Sensory Exam: normal sensation Other: A&O x4 Extrem: General: normal to inspection Other: Left upper extremity fistula has +thrill and bruit Psych: Mental Status: mental status grossly normal Affect: normal affect Other: Fair insight and judgment Objective Data Vital Signs Vital Signs: Vital Signs - 24 hr 02/21/25 14:00 02/21/25 14:55 02/21/25 16:00 Temperature 97.7 F Pulse Rate 95 92 Respiratory Rate 18 Blood Pressure 125/43 L Pulse Oximetry 97 Oxygen Delivery Room Air Oxygen Flow Rate 02/21/25 16:35 02/21/25 16:50 02/21/25 17:50 Temperature 97.8 F 97.9 F 98.0 F Pulse Rate 151 H 87 92 Respiratory Rate 16 16 18 Blood Pressure 147/44 H 124/44 L 132/48 L Pulse Oximetry 100 100 98 Oxygen Delivery Oxygen Flow Rate 02/21/25 18:50 02/21/25 20:45 02/21/25 20:46 Temperature 98.2 F 98.1 F Pulse Rate 86 89 83 Respiratory Rate 18 28 H Blood Pressure 140/53 L 163/40 H Pulse Oximetry 92 100 Oxygen Delivery Oxygen Flow Rate 02/21/25 23:22 02/21/25 23:40 02/22/25 00:00 Temperature 98.1 F 97.9 F Pulse Rate 87 87 83 Respiratory Rate 24 H 20 Blood Pressure 155/66 H 164/60 H Pulse Oximetry 94 95 Oxygen Delivery Oxygen Flow Rate 02/22/25 00:40 02/22/25 02:05 02/22/25 04:00 Temperature 97.8 F 97.4 F L Pulse Rate 83 83 76 Respiratory Rate 20 20 Blood Pressure 155/52 H 163/52 H Pulse Oximetry 100 100 Oxygen Delivery Oxygen Flow Rate 02/22/25 04:41 02/22/25 08:00 02/22/25 08:01 Temperature 97.2 F L Pulse Rate 79 70 Respiratory Rate 24 H Blood Pressure 151/41 H Pulse Oximetry 100 Oxygen Delivery Room Air Oxygen Flow Rate 02/22/25 10:50 02/22/25 11:45 02/22/25 11:55 Temperature 98.6 F Pulse Rate 72 77 70 Respiratory Rate 16 22 H 18 Blood Pressure 152/47 H 145/58 H 131/52 L Pulse Oximetry 97 98 100 Oxygen Delivery Room Air Nasal Cannula Nasal Cannula Oxygen Flow Rate 4 2 02/22/25 12:05 Temperature Pulse Rate 65 Respiratory Rate 22 H Blood Pressure 132/53 L Pulse Oximetry 100 Oxygen Delivery Room Air Oxygen Flow Rate Intake/Output Intake/Output: Intake & Output 02/19/25 02/20/25 02/21/25 02/22/25 23:59 23:59 23:59 23:59 Intake Total 1070 1610 760.0 Output Total 137 0 Balance 1070 1473 760.0 Meds/Results Medications: Active Medications Generic Name Dose Route Start Last Admin Trade Name Randyq PRN Reason Stop Dose Admin Acetaminophen 650 mg 02/21/25 01:42 02/21/25 20:38 Acetaminophen 325 Mg Tablet PO 650 mg Q4H PRN Administration Mild Pain (1-3) or Fever Aspirin 81 mg 02/21/25 09:00 02/21/25 14:50 Aspirin 81 Mg Chewable Tablet PO 81 mg DAILY BRANDON Administration Atorvastatin Calcium 80 mg 02/20/25 21:00 02/21/25 22:25 Atorvastatin 40 Mg Tablet PO 80 mg HS BRANDON Administration Ergocalciferol 1,250 mcg 02/25/25 09:00 Ergocalciferol (Vitamin D2) 1,250 Mcg (50,000 Units) Capsule PO Mo@0900 BRANDON Folic Acid 1 mg 02/21/25 09:00 02/21/25 14:51 Folic Acid 1 Mg Tablet PO 1 mg DAILY BRANDON Administration Hydralazine HCl 10 mg 02/20/25 15:31 02/20/25 23:30 Hydralazine Hcl 20 Mg/Ml Vial IV PUSH 10 mg Q8H PRN Administration Blood Pressure - High, >180/90 Albumin Human 50 mls @ 999 mls/hr 02/20/25 17:17 Albutein IVPB 03/22/25 17:16 Q10M PRN HYPOTENSION Isosorbide Mononitrate 30 mg 02/21/25 09:00 02/21/25 14:51 Isosorbide Mononitrate 30 Mg Tab.Er.24h PO 30 mg DAILY BRANODN Administration Lidocaine 1 patch 02/21/25 22:10 02/22/25 09:57 Lidocaine 5% Patch TRANSDERM 1 patch DAILY BRANDON Administration Lidocaine/Prilocaine 1 each 02/21/25 07:55 02/21/25 08:08 Lidocaine/Prilocaine Cream 2.5-2.5% Tube TOPICAL 1 each DAILY PRN Administration dialysis Lisinopril 40 mg 02/20/25 18:00 02/21/25 17:13 Lisinopril 20 Mg Tablet PO 40 mg QPM BRANDON Administration Melatonin 3 mg 02/20/25 15:40 02/21/25 22:25 Melatonin 3 Mg Tablet PO 3 mg HS PRN Administration Sleep Nifedipine 60 mg 02/20/25 21:00 02/21/25 22:25 Nifedipine 30 Mg Tab.Er.24 PO 60 mg Q12HR BRANDON Administration Oxybutynin Chloride 5 mg 02/20/25 21:00 02/21/25 22:25 Oxybutynin Chloride 5 Mg Tablet PO 5 mg HS BRANDON Administration Ticagrelor 90 mg 02/20/25 21:00 02/22/25 03:49 Ticagrelor 90 Mg Tablet PO Not Given On Hold: 02/21/25 22:04 Q12H BRANDON Trazodone HCl 50 mg 02/20/25 21:00 02/21/25 22:25 Trazodone Hcl 50 Mg Tablet PO 50 mg HS BRANDON Administration Radiology Results: ITS Impressions Chest X-Ray 02/20/25 09:07 Impression: CHF superimposed probable pneumonia. The findings appear relatively unchanged compared to the previous study 01/26/2025 Lumbar Spine X-Ray 02/20/25 09:08 Impression: No acute abnormality. Labs Labs: Laboratory Results - last 24 hr 11/12/25 11/13/25 11/13/25 08:13 12:51 14:40 WBC RBC Hgb 6.4 L* Hct 18.7 L* MCV MCH MCHC RDW Plt Count MPV Immature Gran % (Auto) Neut % (Auto) Lymph % (Auto) [place] % (Auto) Eos % (Auto) Baso % (Auto) Lymph # (Auto) [place] # (Auto) Eos # (Auto) Baso # (Auto) Abs Immat Gran (auto) Absolute Neuts (auto) Absolute Nucleated RBC Nucleated RBC % % Immature Plt Fraction Sodium Potassium Chloride Carbon Dioxide Anion Gap BUN Creatinine Estim Creat Clear Calc Estimated GFR Glucose Calcium Total Bilirubin AST ALT Alkaline Phosphatase Total Protein Albumin Stl Occult Blood (IFOB) Positive H Hep Bs Antigen Hep Bs Antibody Blood Type A Positive Antibody Screen Negative Crossmatch See Detail 02/22/25 02/22/25 02/22/25 03:22 03:22 03:22 WBC 8.0 RBC 3.06 L Hgb 9.2 L 9.4 L Hct 27.4 L 27.5 L MCV 89.5 MCH 30.1 MCHC 33.6 RDW 14.8 H Plt Count 95 L MPV 9.4 Immature Gran % (Auto) 0.5 Neut % (Auto) 81.8 H Lymph % (Auto) 6.1 L [place] % (Auto) 8.2 Eos % (Auto) 3.1 Baso % (Auto) 0.3 Lymph # (Auto) 0.49 L [place] # (Auto) 0.7 H Eos # (Auto) 0.3 Baso # (Auto) 0.0 Abs Immat Gran (auto) 0.04 H Absolute Neuts (auto) 6.5 Absolute Nucleated RBC 0.000 Nucleated RBC % 0.0 % Immature Plt Fraction 1.8 Sodium 131 L Potassium 4.1 Chloride 102 Carbon Dioxide 26 Anion Gap 3 L BUN 45 H D Creatinine 2.29 H Estim Creat Clear Calc Not Reportable Estimated GFR 21 L Glucose 80 Calcium 8.4 Total Bilirubin 0.9 AST 20 ALT 10 Alkaline Phosphatase 81 Total Protein 5.1 L Albumin 2.7 L Stl Occult Blood (IFOB) Hep Bs Antigen Negative Hep Bs Antibody Negative Blood Type Antibody Screen Crossmatch Quality VTE Prophylaxis VTE prophylaxis: mechanical ordered
--- NOTE | 2025-02-22 13:57 | P.PNGI_ITS ---
Progress Note: A&P Assessment and Plan (1) Anemia: Code(s): D64.9 - Anemia, unspecified Status: Acute Assessment and Plan: The patient presents with refractory, transfusion-dependent anemia, highly s uspected to be associated with her underlying severe chronic renal failure. Upper endoscopy today was non-revealing, as no bleeding source was identified to explain the acute decline in hematocrit. Small bowel AVMs remain a consideration in the differential diagnosis but are beyond the access of routine endoscopy. Recommendation: We strongly recommend obtaining a Hematology consult to develop a proactive strategy. This plan should involve options such as erythropoietin-stimulating agents, IV iron repletion, and a defined transfusion protocol. At this time, we have no further diagnostic or therapeutic interventions related to our specialty to offer for the management of this patient's anemia. We are available for further any new gastrointestinal problems. Subjective Date/time seen: 02/22/25 13:57 Objective Data Vital Signs Vital Signs: Vital Signs - 24 hr 02/21/25 14:00 02/21/25 14:55 02/21/25 16:00 Temperature 97.7 F Pulse Rate 95 92 Respiratory Rate 18 Blood Pressure 125/43 L Pulse Oximetry 97 Oxygen Delivery Room Air Oxygen Flow Rate 02/21/25 16:35 02/21/25 16:50 02/21/25 17:50 Temperature 97.8 F 97.9 F 98.0 F Pulse Rate 151 H 87 92 Respiratory Rate 16 16 18 Blood Pressure 147/44 H 124/44 L 132/48 L Pulse Oximetry 100 100 98 Oxygen Delivery Oxygen Flow Rate 02/21/25 18:50 02/21/25 20:45 02/21/25 20:46 Temperature 98.2 F 98.1 F Pulse Rate 86 89 83 Respiratory Rate 18 28 H Blood Pressure 140/53 L 163/40 H Pulse Oximetry 92 100 Oxygen Delivery Oxygen Flow Rate 02/21/25 23:22 02/21/25 23:40 02/22/25 00:00 Temperature 98.1 F 97.9 F Pulse Rate 87 87 83 Respiratory Rate 24 H 20 Blood Pressure 155/66 H 164/60 H Pulse Oximetry 94 95 Oxygen Delivery Oxygen Flow Rate 02/22/25 00:40 02/22/25 02:05 02/22/25 04:00 Temperature 97.8 F 97.4 F L Pulse Rate 83 83 76 Respiratory Rate 20 20 Blood Pressure 155/52 H 163/52 H Pulse Oximetry 100 100 Oxygen Delivery Oxygen Flow Rate 02/22/25 04:41 02/22/25 08:00 02/22/25 08:01 Temperature 97.2 F L Pulse Rate 79 70 Respiratory Rate 24 H Blood Pressure 151/41 H Pulse Oximetry 100 Oxygen Delivery Room Air Oxygen Flow Rate 02/22/25 10:50 02/22/25 11:45 02/22/25 11:55 Temperature 98.6 F Pulse Rate 72 77 70 Respiratory Rate 16 22 H 18 Blood Pressure 152/47 H 145/58 H 131/52 L Pulse Oximetry 97 98 100 Oxygen Delivery Room Air Nasal Cannula Nasal Cannula Oxygen Flow Rate 4 2 02/22/25 12:00 02/22/25 12:05 Temperature Pulse Rate 83 65 Respiratory Rate 22 H Blood Pressure 132/53 L Pulse Oximetry 100 Oxygen Delivery Room Air Oxygen Flow Rate Intake/Output Intake/Output: Intake & Output 02/19/25 02/20/25 02/21/25 02/22/25 23:59 23:59 23:59 23:59 Intake Total 1070 1610 760.0 Output Total 137 0 Balance 1070 1473 760.0 Meds/Results Medications: Active Medications Generic Name Dose Route Start Last Admin Trade Name Freq PRN Reason Stop Dose Admin Acetaminophen 650 mg 02/21/25 01:42 02/21/25 20:38 Acetaminophen 325 Mg Tablet PO 650 mg Q4H PRN Administration Mild Pain (1-3) or Fever Aspirin 81 mg 02/21/25 09:00 02/21/25 14:50 Aspirin 81 Mg Chewable Tablet PO 81 mg DAILY BRANDON Administration Atorvastatin Calcium 80 mg 02/20/25 21:00 02/21/25 22:25 Atorvastatin 40 Mg Tablet PO 80 mg HS BRANDON Administration Ergocalciferol 1,250 mcg 02/25/25 09:00 Ergocalciferol (Vitamin D2) 1,250 Mcg (50,000 Units) Capsule PO Mo@0900 [facility] Folic Acid 1 mg 02/21/25 09:00 02/21/25 14:51 Folic Acid 1 Mg Tablet PO 1 mg DAILY BRANDON Administration Hydralazine HCl 10 mg 02/20/25 15:31 02/20/25 23:30 Hydralazine Hcl 20 Mg/Ml Vial IV PUSH 10 mg Q8H PRN Administration Blood Pressure - High, >180/90 Albumin Human 50 mls @ 999 mls/hr 02/20/25 17:17 Albutein IVPB 03/22/25 17:16 Q10M PRN HYPOTENSION Isosorbide Mononitrate 30 mg 02/21/25 09:00 02/21/25 14:51 Isosorbide Mononitrate 30 Mg Tab.Er.24h PO 30 mg DAILY BRANDON Administration Lidocaine 1 patch 02/21/25 22:10 02/22/25 09:57 Lidocaine 5% Patch TRANSDERM 1 patch DAILY BRANDON Administration Lidocaine/Prilocaine 1 each 02/21/25 07:55 02/21/25 08:08 Lidocaine/Prilocaine Cream 2.5-2.5% Tube TOPICAL 1 each DAILY PRN Administration dialysis Lisinopril 40 mg 02/20/25 18:00 02/21/25 17:13 Lisinopril 20 Mg Tablet PO 40 mg QPM BRANDON Administration Melatonin 3 mg 02/20/25 15:40 02/21/25 22:25 Melatonin 3 Mg Tablet PO 3 mg HS PRN Administration Sleep Nifedipine 60 mg 02/20/25 21:00 02/21/25 22:25 Nifedipine 30 Mg Tab.Er.24 PO 60 mg Q12HR BRANDON Administration Oxybutynin Chloride 5 mg 02/20/25 21:00 02/21/25 22:25 Oxybutynin Chloride 5 Mg Tablet PO 5 mg HS BRANDON Administration Ticagrelor 90 mg 02/20/25 21:00 02/22/25 03:49 Ticagrelor 90 Mg Tablet PO Not Given On Hold: 02/21/25 22:04 Q12H BRANDON Tramadol HCl 25 mg 02/22/25 13:53 Tramadol Hcl (*Crx) 25 Mg Tablet PO Q6H PRN Pain Rated 6 or Greater Trazodone HCl 50 mg 02/20/25 21:00 02/21/25 22:25 Trazodone Hcl 50 Mg Tablet PO 50 mg HS BRANDON Administration Radiology Results: ITS Impressions Chest X-Ray 02/20/25 09:07 Impression: CHF superimposed probable pneumonia. The findings appear relatively unchanged compared to the previous study 01/26/2025 Lumbar Spine X-Ray 02/20/25 09:08 Impression: No acute abnormality. Labs Labs: Laboratory Results - last 24 hr 02/20/25 02/21/25 02/21/25 08:13 12:51 14:40 WBC RBC Hgb 6.4 L* Hct 18.7 L* MCV MCH MCHC RDW Plt Count MPV Immature Gran % (Auto) Neut % (Auto) Lymph % (Auto) [place] % (Auto) Eos % (Auto) Baso % (Auto) Lymph # (Auto) [place] # (Auto) Eos # (Auto) Baso # (Auto) Abs Immat Gran (auto) Absolute Neuts (auto) Absolute Nucleated RBC Nucleated RBC % % Immature Plt Fraction Sodium Potassium Chloride Carbon Dioxide Anion Gap BUN Creatinine Estim Creat Clear Calc Estimated GFR Glucose Calcium Total Bilirubin AST ALT Alkaline Phosphatase Total Protein Albumin Stl Occult Blood (IFOB) Positive H Hep Bs Antigen Hep Bs Antibody Blood Type A Positive Antibody Screen Negative Crossmatch See Detail 02/22/25 02/22/25 02/22/25 03:22 03:22 03:22 WBC 8.0 RBC 3.06 L Hgb 9.2 L 9.4 L Hct 27.4 L 27.5 L MCV 89.5 MCH 30.1 MCHC 33.6 RDW 14.8 H Plt Count 95 L MPV 9.4 Immature Gran % (Auto) 0.5 Neut % (Auto) 81.8 H Lymph % (Auto) 6.1 L [place] % (Auto) 8.2 Eos % (Auto) 3.1 Baso % (Auto) 0.3 Lymph # (Auto) 0.49 L [place] # (Auto) 0.7 H Eos # (Auto) 0.3 Baso # (Auto) 0.0 Abs Immat Gran (auto) 0.04 H Absolute Neuts (auto) 6.5 Absolute Nucleated RBC 0.000 Nucleated RBC % 0.0 % Immature Plt Fraction 1.8 Sodium 131 L Potassium 4.1 Chloride 102 Carbon Dioxide 26 Anion Gap 3 L BUN 45 H D Creatinine 2.29 H Estim Creat Clear Calc Not Reportable Estimated GFR 21 L Glucose 80 Calcium 8.4 Total Bilirubin 0.9 AST 20 ALT 10 Alkaline Phosphatase 81 Total Protein 5.1 L Albumin 2.7 L Stl Occult Blood (IFOB) Hep Bs Antigen Negative Hep Bs Antibody Negative Blood Type Antibody Screen Crossmatch
--- NOTE | 2025-02-22 14:02 | PCOTNOTE ---
OT evaluation unable to be completed this date. Pt refused to work with therapist despite maximal encouragement and clear expectations. Will continue to follow.
--- NOTE | 2025-02-22 14:11 | P.PNNP_ITS ---
Progress Note: A&P Assessment and Plan (1) End stage renal disease: Code(s): N18.6 - End stage renal disease Status: Chronic Assessment and Plan: * HD tomorrow * continue T/T/S dialysis schedule while hospitalized * follow electrolytes, volume status, and clearance (2) Anemia: Qualifiers: Anemia type: unspecified type Qualified Code(s): D64.9 - Anemia, unspecified Code(s): D64.9 - Anemia, unspecified Status: Acute Assessment and Plan: * as noted by admission labs * partly related to ESRD but cannot discount other etiologies given severity * anemia studies noted - evidence of iron deficiency * guaiac stool positive * seen by Gastroenterology: * s/p EGD (on 02/22) with no significant findings * high dose Epogen with HD * PRBC transfusion per protocol * Hematology consulted * follow trend of H/H (3) CHF (congestive heart failure): Qualifiers: Heart failure type: combined systolic and diastolic Heart failure chronicity: acute on chronic Qualified Code(s): I50.43 - Acute on chronic combined systolic (congestive) and diastolic (congestive) heart failure Code(s): I50.9 - Heart failure, unspecified Status: Chronic Assessment and Plan: * known history * however, no evidence of exacerbation * last Echo (10/02/24) noted: * left ventricular ejection fraction is visually estimated to be 60 - 65% * severe concentric left ventricular hypertrophy * right ventricle is normal in size and systolic function * no aortic regurgitation * mild mitral regurgitation * mild tricuspid regurgitation * admission CXR noted in comparison to CXR about a month ago... * continue fluid removal with HD as tolerated in an effort to achieve euvolemia * follow volume status (4) Hypertension: Qualifiers: Hypertension type: secondary to other renal disorders Qualified Code(s): I15.1 - Hypertension secondary to other renal disorders Code(s): I10 - Essential (primary) hypertension Status: Chronic Assessment and Plan: * better control * poor BP control at baseline * restarted on home medications * PRN IV medications if needed * follow trend of hemodynamics (5) Ground-level fall: Code(s): W18.30XA - Fall on same level, unspecified, initial encounter Status: Acute Assessment and Plan: * noted on admission * no acute injury by imaging studies * reportedly secondary to BLE weakness presumably precipitated by anemia * fall precautions * PT/OT as tolerated (6) COPD (chronic obstructive pulmonary disease): Qualifiers: COPD type: unspecified COPD Qualified Code(s): J44.9 - Chronic obstructive pulmonary disease, unspecified Code(s): J44.9 - Chronic obstructive pulmonary disease, unspecified Status: Chronic Assessment and Plan: * known history * no evidence of exacerbation * use nebulizer treatments PRN Will continue to follow. L Subjective Date/time seen: 02/22/25 14:11 Interval history: Follow-up for end stage renal disease on hemodialysis. Tolerated dialysis treatment yesterday but fluid removal limited due to relative hypotension in association with melanotic stools x 2; hemoccult positive so seen by Gastroenterology yesterday and s/p EGD earlier today with findings noted; H/H better following transfusion of another 2 units of PRBCs yesterday. Exam 2 Narrative: General: thin and somewhat frail female in NAD Heart: normal S1 and S2; no rub Lungs: coarse breath sounds; decreased at bases Abdomen: soft, nontender, nondistended, positive bowel sounds Extremities: no cyanosis or clubbing; no edema Skin: no rash Objective Data Vital Signs Vital Signs: Vital Signs Temp Pulse Resp BP Pulse Ox O2 Del Method O2 Flow Rate 02/22/25 14:00 97.2 F L 65 18 144/65 H 10 L 02/22/25 12:05 65 22 H 132/53 L 100 Room Air 02/22/25 12:00 83 02/22/25 11:55 70 18 131/52 L 100 Nasal Cannula 2 02/22/25 11:45 77 22 H 145/58 H 98 Nasal Cannula 4 02/22/25 10:50 98.6 F 72 16 152/47 H 97 Room Air 02/22/25 08:01 70 02/22/25 08:00 Room Air 02/22/25 04:41 97.2 F L 79 24 H 151/41 H 100 02/22/25 04:00 76 02/22/25 02:05 97.4 F L 83 20 163/52 H 100 02/22/25 00:40 97.8 F 83 20 155/52 H 100 02/22/25 00:00 83 02/21/25 23:40 97.9 F 87 20 164/60 H 95 02/21/25 23:22 98.1 F 87 24 H 155/66 H 94 02/21/25 20:46 98.1 F 83 28 H 163/40 H 100 02/21/25 20:45 89 02/21/25 18:50 98.2 F 86 18 140/53 L 92 Intake/Output Intake/Output: Intake & Output 02/19/25 02/20/25 02/21/25 02/22/25 23:59 23:59 23:59 23:59 Intake Total 1070 1610 1480.0 Output Total 137 0 Balance 1070 1473 1480.0 Meds/Results Medications: Active Medications Generic Name Dose Route Start Last Admin Trade Name Freq PRN Reason Stop Dose Admin Acetaminophen 650 mg 02/21/25 01:42 02/22/25 14:17 Acetaminophen 325 Mg Tablet PO 650 mg Q4H PRN Administration Mild Pain (1-3) or Fever Aspirin 81 mg 02/21/25 09:00 02/22/25 14:20 Aspirin 81 Mg Chewable Tablet PO 81 mg DAILY BRANDON Administration Atorvastatin Calcium 80 mg 02/20/25 21:00 02/21/25 22:25 Atorvastatin 40 Mg Tablet PO 80 mg HS BRANDON Administration Ergocalciferol 1,250 mcg 02/25/25 09:00 Ergocalciferol (Vitamin D2) 1,250 Mcg (50,000 Units) Capsule PO Mo@0900 BRANDON Folic Acid 1 mg 02/21/25 09:00 02/22/25 14:21 Folic Acid 1 Mg Tablet PO 1 mg DAILY BRANDON Administration Hydralazine HCl 10 mg 02/20/25 15:31 02/20/25 23:30 Hydralazine Hcl 20 Mg/Ml Vial IV PUSH 10 mg Q8H PRN Administration Blood Pressure - High, >180/90 Albumin Human 50 mls @ 999 mls/hr 02/20/25 17:17 Albutein IVPB 03/22/25 17:16 Q10M PRN HYPOTENSION Isosorbide Mononitrate 30 mg 02/21/25 09:00 02/22/25 14:21 Isosorbide Mononitrate 30 Mg Tab.Er.24h PO 30 mg DAILY BRANDON Administration Lidocaine 1 patch 02/21/25 22:10 02/22/25 09:57 Lidocaine 5% Patch TRANSDERM 1 patch DAILY BRANDON Administration Lidocaine/Prilocaine 1 each 02/21/25 07:55 02/21/25 08:08 Lidocaine/Prilocaine Cream 2.5-2.5% Tube TOPICAL 1 each DAILY PRN Administration dialysis Lisinopril 40 mg 02/20/25 18:00 02/22/25 17:12 Lisinopril 20 Mg Tablet PO 40 mg QPM BRANDON Administration Melatonin 3 mg 02/20/25 15:40 02/21/25 22:25 Melatonin 3 Mg Tablet PO 3 mg HS PRN Administration Sleep Nifedipine 60 mg 02/20/25 21:00 02/22/25 14:22 Nifedipine 30 Mg Tab.Er.24 PO 60 mg Q12HR BRANDON Administration Oxybutynin Chloride 5 mg 02/20/25 21:00 02/21/25 22:25 Oxybutynin Chloride 5 Mg Tablet PO 5 mg HS BRANDON Administration Ticagrelor 90 mg 02/20/25 21:00 02/22/25 03:49 Ticagrelor 90 Mg Tablet PO Not Given On Hold: 02/21/25 22:04 Q12H BRANDON Tramadol HCl 25 mg 02/22/25 13:53 02/22/25 16:08 Tramadol Hcl (*Crx) 25 Mg Tablet PO 25 mg Q6H PRN Administration Pain Rated 6 or Greater Trazodone HCl 50 mg 02/20/25 21:00 02/21/25 22:25 Trazodone Hcl 50 Mg Tablet PO 50 mg HS BRANDON Administration Radiology Results: ITS Impressions Chest X-Ray 02/20/25 09:07 Impression: CHF superimposed probable pneumonia. The findings appear relatively unchanged compared to the previous study 01/26/2025 Lumbar Spine X-Ray 02/20/25 09:08 Impression: No acute abnormality. Labs Labs: Laboratory Tests 02/22/25 03:22 02/22/25 03:22 Calcium 8.4 Total Bilirubin 0.9 AST 20 ALT 10 Alkaline Phosphatase 81 Total Protein 5.1 L Albumin 2.7 L Hep Bs Antigen Negative Hep Bs Antibody Negative
[2025-02-22] MEDS: ACETAMINOPHEN 325 MG TABLET 650 MG PO (14:17)
[2025-02-22] MEDS: ASPIRIN 81 MG CHEWABLE TABLET PO (14:20)
[2025-02-22] MEDS: FOLIC ACID 1 MG TABLET PO (14:21)
[2025-02-22] MEDS: ISOSORBIDE MONONITRATE 30 MG TAB.ER.24H PO (14:21)
--- NOTE | 2025-02-22 14:52 | PCPTNOTE ---
Pt adamantly refused physical therapy this date and stated I can't do it today. Educated pt on importance of participating in physical therapy to improve strength and endurance and pt continued to refuse. Will continue to follow.
[2025-02-22] MEDS: traMADol HCL (*CRX) 25 MG TABLET PO (16:08)
--- NOTE | 2025-02-22 18:48 | PC.NURSE ---
This RN, Shanti Murillo, has reviewed documentation by ELLIOTT Malhotra, for 02/22/25 [id number] and agree with the findings.
[2025-02-22] MEDS: ATORVASTATIN 40 MG TABLET 80 MG PO (21:46)
[2025-02-23] VITALS (25 sets, daily range): BP systolic 100–156; BP diastolic 39–79; PULSE 72–97; RESP 14–18; TEMP 36.2–38; O2SAT 90–96
[2025-02-23 06:02] LABS: Hematocrit 29.2 % (37.0-47.0); Hemoglobin 9.7 g/dL (12.0-15.0); Immature Granulocyte Percent A 1.0 % (0-0.5); Lymphocytes Absolute Auto 0.66 K/mm3 (0.9-3.2); Mean Corpuscular HGB Conc 33.2 g/dl (32-36); Mean Corpuscular Hemoglobin 30.3 pg (26-34); Mean Corpuscular Volume 91.3 fl (80-100); Nucleated Red Blood Cells Absolute Auto 0.020 K/mm3 (0.0-0.012); Nucleated Red Blood Cells Perc 0.2 % (0.0-0.2); Platelet Count Result 114 k/mm3 (150-375); Red Blood Count 3.20 M/mm3 (4.2-5.4); White Blood Count 12.3 K/mm3 (4.5-10.0)
[2025-02-23 06:26] LABS: Alanine Aminotransferase 10 U/L (6-35); Albumin Level 2.8 g/dL (3.5-5.1); Alkaline Phosphatase 89 U/L (38-126); Anion Gap 6 mmol/L (4-12); Aspartate Amino Transferase 21 U/L (14-36); Bilirubin,Total 0.5 mg/dL (0.2-1.3); Blood Urea Nitrogen 60 mg/dL (7-17); Calcium 8.8 mg/dL (8.4-10.2); Carbon Dioxide 25 mmol/L (22-30); Chloride 102 mmol/L (98-107); Estimated Glomerular Filt Rate 14; Glucose 74 mg/dL (65-110); Potassium 4.5 mmol/L (3.4-5.0); Sodium 133 mmol/L (137-145); Total Protein 5.4 g/dL (6.3-8.2)
[2025-02-23] MEDS: LIDOCAINE/PRILOCAINE CREAM 2.5-2.5% TUBE 1 EACH TOPICAL (08:12)
--- NOTE | 2025-02-23 08:33 | PM.IMPN ---
Progress Note: A&P Assessment and Plan (1) Anemia in ESRD (end-stage renal disease): Code(s): N18.6 - End stage renal disease; D63.1 - Anemia in chronic kidney disease Status: Acute Assessment and Plan: Patient has history of chronic anemia secondary to ESRD and iron deficiency anemia. Had scheduled transfusion for today at [place]?, 02/20. Seen yesterday on 02/19 for generalized weakness. Found to be anemic at that time, however elected to leave AMA verses admission for transfusions. Has received 1 transfusion at this time, receiving 2nd transfusion. Denies previous history of requiring transfusions. However, per chart review has received blood transfusions in April of 2020 and January of 2025. Patient also noted to have dark tarry stools, however she denied. Believe she may be on iron supplement, however reviewed home medications and no iron supplement listed. - Hgb with 5.4 upon admission on 02/20 - transfuse if <7 - trend H&H - check iron, TIBC, TSH, ferritin, B12, folic acid. - check stool occult, add pantoprazole while awaiting results 02/21: Pt with x2 large melanic BMs during HD, positive occult blood test -Received 2 units of PRBCs on 02/20 TIBC 180, all other labs WDL for pt -Hgb this AM 7.3, repeating H/H after melena episodes= 6.4/18.7 -->Ordered x2 units PRBCs to be transfused. -GI consulted today for suspected bleed, plans for EGD in the AM. -Will continue to transfuse if hgb <7 02/22: Pt with no other melenic BMs. -Hgb 9.4 this AM, will continue to trend labs -EGD performed today with no bleed found -Heme consulted for further recommendations and workup 02/23: Pt with no other melenic BMs. Denies abd pain. +Nauseous in HD today, darvin conde ordered -Hgb 9.7 today, continue to trend -Heme consulted for further recommendations and workup, but per neph, pt already receives Epogen and IV iron with dialysis as an outpatient as well as during her acute hospitalizations -->Heme recs/planDraw labs - iron studies, Vitamin B12, folate, retic count, haptoglobin, copper, Melissa (D+I). Possible underlying MDS as well. If iron deficient, can administer Venofer. Review smear to rule out plt clumping. Possible underlying MDS. No indication for BM bx at this time -Pt on Brilinta for PVD and this has been held since her procedure yesterday 02/22, spoke to Dr. Gramajo with GI today and OK to restart today (2) Elevated troponin: Code(s): R79.89 - Other specified abnormal findings of blood chemistry Status: Acute Assessment and Plan: Initial troponin 0.040. Will check 3 and 6 hour. Reviewed the EKGs completed in the ED. Did show some ST depression in V3, however most recent EKG shows resolving depressions. Elevated troponin likely related to patient's ESRD/acute on chronic anemia. Appears to be improving with transfusion. No active chest pain. Continue to trend troponins. Add telemetry. 02/21: Pt continues to deny CP and SOB. Tele 96bpm today -Continue ASA 81mg daily 02/22: Continues to deny CP/SOB or any other sx. (3) Ground-level fall: Code(s): W18.30XA - Fall on same level, unspecified, initial encounter Status: Acute Assessment and Plan: Sustained a ground level fall this morning on 02/20. Reports low back pain post fall. Fall secondary to bilateral lower extremity weakness, likely related to acute on chronic anemia. Lumbar XR showed no acute abnormality, does have dextro convex scoliosis, grade 1 anterolisthesis of L4 on L5, moderate loss of disc at L4-5 and L5-S1. Add fall precautions. 02/22: Pt c/o lower back pain. -Medications limited due to EGD procedure today, Flexeril 5mg PO ordered 02/23: Pt reporting that her back pain is better today -Ordered tramadol PRN yesterday (4) Acute on chronic combined systolic and diastolic CHF (congestive heart failure): Code(s): I50.43 - Acute on chronic combined systolic (congestive) and diastolic (congestive) heart failure Status: Acute Assessment and Plan: History of combined systolic and diastolic heart failure with reduced EF. Most recent echo from September of 2024 showed normal systolic function, estimated EF 60 65%, severe LVH, valvular disease. No hypoxia per review of vital signs. No subjective shortness of breath, cough, or URI symptoms. Reviewed CXR compared to CXR completed on 01/26/2025, small right pleural effusion still present, slightly increased. Pulmonary edema generally improved but still present. No appreciable focal consolidation. Patient's volume status managed via dialysis which he receives Tuesdays, , Saturdays. No recent missed treatments. Monitored toleration of transfusions. Nephrology consulted for inpatient HD. 02/21: Pt dialyzed today, treatment cut short due to melena episodes, will continue labs and HD schedule as well as CHF sx 02/22: Pt fluid status stable, denies CP/SOB. 02/23: HD today (5) ESRD on hemodialysis: Code(s): N18.6 - End stage renal disease; Z99.2 - Dependence on renal dialysis Status: Chronic Assessment and Plan: History of ESRD on HD, Tuesdays//Saturdays. No recent missed treatments. Mild pulmonary edema on CXR, no hypoxia or subjective shortness of breath. Nephrology consulted for inpatient dialysis. Receiving 2 units of PRBC. Monitor electrolytes. -See above (6) COPD (chronic obstructive pulmonary disease): Qualifiers: COPD type: unspecified COPD Qualified Code(s): J44.9 - Chronic obstructive pulmonary disease, unspecified Code(s): J44.9 - Chronic obstructive pulmonary disease, unspecified Status: Chronic Assessment and Plan: History of COPD, currently stable. No wheezing or crackles on exam. No hypoxia. (7) Hypertension: Qualifiers: Hypertension type: secondary to other renal disorders Qualified Code(s): I15.1 - Hypertension secondary to other renal disorders Code(s): I10 - Essential (primary) hypertension Status: Chronic Assessment and Plan: Who reported the bedside RN that she has not taken her home medications for the past 2 days, however she reports compliance with her medications at time of in-patient interview. Hypertensive this afternoon at 203/55. Will resume home antihypertensives including Imdur, lisinopril, nifedipine. Hydralazine p.r.n. for BP greater than 180/90. Monitor. 02/21: BP much better on morning read after home meds administered, 145/48, will continue to monitor 02/22: 130's/50's. Stable. Will continue to assess daily. (8) Hyperlipidemia: Qualifiers: Hyperlipidemia type: unspecified Qualified Code(s): E78.5 - Hyperlipidemia, unspecified Code(s): E78.5 - Hyperlipidemia, unspecified Status: Chronic Assessment and Plan: Continue atorvastatin 80 mg daily. Plan Diet: Renal/low Na diet GI Prophylaxis: Pantoprazole DVT Prophylaxis: SCDs IV fluids: None Lines/Tubes: Peripheral IV, left forearm HD fistula Code Status: Full code Disposition: Pending lab trends, heme labs, OT, and SNF placement Time Spent With Patient Time: 45 Subjective Date/time seen: 02/23/25 Interval history: Pt evaluated during HD. Pt resting in bed upon my arrival. Pt reporting that her back pain is better. Pt denies additional melena episodes. C/o nausea while in HD, Zofran ODT ordered. Review of Systems Review of Systems: All systems reviewed & are unremarkable except as noted in HPI and below Exam Const: General: comfortable and no acute distress Other: , female, elderly, nontoxic appearance HENMT: Face/Nose/Sinus: Normal nares present Mouth: Yes moist mucous membranes Eyes: General: appearance normal, both eyes and all related structures Sclera: sclerae normal Neck: Neck: supple Resp: Effort & Inspection: normal respiratory effort Auscultation: clear to auscultation bilaterally Cardio: Rate: regular rate Rhythm: regular rhythm Other: S1-S2 present without murmur, rub, ectopy GI: Other: Abdomen soft, nondistended, no TTP. Normoactive bowel sounds in all quadrants. Back/Spine/Pelvis: Back: back tenderness (paraspinal bilaterally ttp, more mild today) Skin: General skin exam: normal color and no rashes or lesions noted Wounds: no wounds Neuro: Speech: normal speech Motor exam (neuro): Normal motor muscle tone present throughout Sensory Exam: normal sensation Other: A&O x4 Extrem: General: normal to inspection Other: Left upper extremity fistula has +thrill and bruit Psych: Mental Status: mental status grossly normal Affect: normal affect Other: Fair insight and judgment Objective Data Vital Signs Vital Signs: Vital Signs - 24 hr 02/22/25 10:50 02/22/25 11:45 02/22/25 11:55 Temperature 98.6 F Pulse Rate 72 77 70 Respiratory Rate 16 22 H 18 Blood Pressure 152/47 H 145/58 H 131/52 L Pulse Oximetry 97 98 100 Oxygen Delivery Room Air Nasal Cannula Nasal Cannula Oxygen Flow Rate 4 2 02/22/25 12:00 11/14/25 12:05 02/22/25 14:00 Temperature 97.2 F L Pulse Rate 83 65 65 Respiratory Rate 22 H 18 Blood Pressure 132/53 L 144/65 H Pulse Oximetry 100 10 L Oxygen Delivery Room Air Oxygen Flow Rate 02/22/25 14:25 02/22/25 16:00 02/22/25 20:00 Temperature Pulse Rate 76 83 Respiratory Rate Blood Pressure Pulse Oximetry 100 Oxygen Delivery Room Air Oxygen Flow Rate 02/22/25 20:43 02/23/25 00:00 02/23/25 04:00 Temperature 98.3 F Pulse Rate 90 84 77 Respiratory Rate 18 Blood Pressure 162/46 H Pulse Oximetry 99 Oxygen Delivery Oxygen Flow Rate 02/23/25 04:58 Temperature 97.9 F Pulse Rate 97 Respiratory Rate 18 Blood Pressure 140/39 L Pulse Oximetry 95 Oxygen Delivery Oxygen Flow Rate Intake/Output Intake/Output: Intake & Output 02/20/25 02/21/25 02/22/25 02/23/25 23:59 23:59 23:59 23:59 Intake Total 1070 1610 1480.0 300 Output Total 137 0 Balance 1070 1473 1480.0 300 Meds/Results Medications: Active Medications Generic Name Dose Route Start Last Admin Trade Name Freq PRN Reason Stop Dose Admin Acetaminophen 650 mg 02/21/25 01:42 02/22/25 14:17 Acetaminophen 325 Mg Tablet PO 650 mg Q4H PRN Administration Mild Pain (1-3) or Fever Aspirin 81 mg 02/21/25 09:00 02/22/25 14:20 Aspirin 81 Mg Chewable Tablet PO 81 mg DAILY BRANDON Administration Atorvastatin Calcium 80 mg 02/20/25 21:00 02/22/25 21:46 Atorvastatin 40 Mg Tablet PO 80 mg HS BRANDON Administration Ergocalciferol 1,250 mcg 02/25/25 09:00 Ergocalciferol (Vitamin D2) 1,250 Mcg (50,000 Units) Capsule PO Mo@0900 BRANDON Folic Acid 1 mg 02/21/25 09:00 02/22/25 14:21 Folic Acid 1 Mg Tablet PO 1 mg DAILY BRANDON Administration Hydralazine HCl 10 mg 02/20/25 15:31 02/20/25 23:30 Hydralazine Hcl 20 Mg/Ml Vial IV PUSH 10 mg Q8H PRN Administration Blood Pressure - High, >180/90 Albumin Human 50 mls @ 999 mls/hr 02/20/25 17:17 Albutein IVPB 03/22/25 17:16 Q10M PRN HYPOTENSION Sodium Chloride 1,000 mls @ 999 mls/hr 02/23/25 07:43 Normal Saline Iv IV CONT 02/23/25 08:43 .Q1H1M ONE Isosorbide Mononitrate 30 mg 02/21/25 09:00 02/22/25 14:21 Isosorbide Mononitrate 30 Mg Tab.Er.24h PO 30 mg DAILY BRANDON Administration Lidocaine 1 patch 02/21/25 22:10 02/22/25 09:57 Lidocaine 5% Patch TRANSDERM 1 patch DAILY BRANDON Administration Lidocaine/Prilocaine 1 each 02/21/25 07:55 02/23/25 08:12 Lidocaine/Prilocaine Cream 2.5-2.5% Tube TOPICAL 1 each DAILY PRN Administration dialysis Lisinopril 40 mg 02/20/25 18:00 02/22/25 17:12 Lisinopril 20 Mg Tablet PO 40 mg QPM BRANDON Administration Melatonin 3 mg 02/20/25 15:40 02/21/25 22:25 Melatonin 3 Mg Tablet PO 3 mg HS PRN Administration Sleep Nifedipine 60 mg 02/20/25 21:00 02/22/25 21:47 Nifedipine 30 Mg Tab.Er.24 PO 60 mg Q12HR BRANDON Administration Oxybutynin Chloride 5 mg 02/20/25 21:00 02/22/25 21:46 Oxybutynin Chloride 5 Mg Tablet PO 5 mg HS BRANDON Administration Ticagrelor 90 mg 02/20/25 21:00 02/22/25 03:49 Ticagrelor 90 Mg Tablet PO Not Given On Hold: 02/21/25 22:04 Q12H BRANDON Tramadol HCl 25 mg 02/22/25 13:53 02/22/25 16:08 Tramadol Hcl (*Crx) 25 Mg Tablet PO 25 mg Q6H PRN Administration Pain Rated 6 or Greater Trazodone HCl 50 mg 02/20/25 21:00 02/22/25 21:46 Trazodone Hcl 50 Mg Tablet PO 50 mg HS BRANDON Administration Radiology Results: ITS Impressions Chest X-Ray 02/20/25 09:07 Impression: CHF superimposed probable pneumonia. The findings appear relatively unchanged compared to the previous study 01/26/2025 Lumbar Spine X-Ray 02/20/25 09:08 Impression: No acute abnormality. Labs Labs: Laboratory Results - last 24 hr 02/23/25 05:30 WBC 12.3 H RBC 3.20 L Hgb 9.7 L Hct 29.2 L MCV 91.3 MCH 30.3 MCHC 33.2 RDW 15.6 H Plt Count 114 L MPV 9.6 Immature Gran % (Auto) 1.0 H Neut % (Auto) 83.2 H Lymph % (Auto) 5.4 L [place] % (Auto) 6.6 Eos % (Auto) 3.3 Baso % (Auto) 0.5 Lymph # (Auto) 0.66 L [place] # (Auto) 0.8 H Eos # (Auto) 0.4 H Baso # (Auto) 0.1 Abs Immat Gran (auto) 0.12 H Absolute Neuts (auto) 10.2 H Absolute Nucleated RBC 0.020 H Nucleated RBC % 0.2 Sodium 133 L Potassium 4.5 Chloride 102 Carbon Dioxide 25 Anion Gap 6 BUN 60 H D Creatinine 3.27 H Estim Creat Clear Calc Not Reportable Estimated GFR 14 L Glucose 74 Calcium 8.8 Total Bilirubin 0.5 AST 21 ALT 10 Alkaline Phosphatase 89 Total Protein 5.4 L Albumin 2.8 L Quality VTE Prophylaxis VTE prophylaxis: mechanical ordered
--- NOTE | 2025-02-23 09:16 | WPDONCCN ---
Assessment and Plan Assessment and plan (1) Acute on chronic anemia: Code(s): D64.9 - Anemia, unspecified Status: Acute Assessment and Plan: Multifactorial including CKD. Possible blood loss I suspect she is already receiving epo during dialysis Draw labs - iron studies, Vitamin B12, folate, retic count, haptoglobin, copper, Melissa (D+I). Possible underlying MDS as well. If iron deficient, can administer Venofer GI evaluation planned (2) ESRD (end stage renal disease) on dialysis: Code(s): N18.6 - End stage renal disease; Z99.2 - Dependence on renal dialysis Status: Acute Assessment and Plan: on dialysis (3) Acute on chronic combined systolic and diastolic CHF (congestive heart failure): Code(s): I50.43 - Acute on chronic combined systolic (congestive) and diastolic (congestive) heart failure Status: Acute (4) Gastric AVM: Code(s): K31.819 - Angiodysplasia of stomach and duodenum without bleeding Status: Acute Assessment and Plan: EGD scheduled per GI (5) Melena: Code(s): K92.1 - Melena Status: Acute (6) Thrombocytopenia: Code(s): D69.6 - Thrombocytopenia, unspecified Status: Acute Assessment and Plan: Review smear to rule out plt clumping. Possible underlying MDS No indication for BM bx at this time HPI Data of Consult Date/Time: 02/23/25 09:16 Requesting Physician: Eric Earl DO Primary Care Provider: Addie Moore, BRONZE CHASER Consult Narrative Narrative: Alina Allen is a 79 year old female with chronic anemia secondary to ESRD, on dialysis (last done 02/19/25 as an outpatient), as well as iron deficiency anemia. She is currently receiving dialysis today. She was scheduled for an outpatient transfusion but left the hospital AMA. She came back to the hospital on 02/20/25 and was given 2 units PRBCs. She was found to have dark stools although patient denied this. No oral iron supplementation at this time. The patient reports that she has had iron deficiency her whole life. She has never heard of sickle cell or thalassemia. Per hospital records, she has required transfusions in the past, Apr 2020 and Jan 2025. Labs: (02/20/25): WBC 6.0, Hgb 5.4, Hct 16.6, MCV 87.8, Plt 129 --> tx --> H/H 9.2/27.2 (02/21/25): WBC 8.0, Hgb 7.3, Hct 22.0, Plt 102 --> H/H 6.4/18.8 --> tx (02/22/25): WBC 8.0, Hgb 9.4, Hct 27.5, MCV 90.0, Plt 95 WBC 12.3, Hgb 9.7, Hct 29.2, Plt 114 IMPRESSION/PLAN: 1. Anemia - multifactorial including CKD. Possible blood loss I suspect she is already receiving epo during dialysis Draw labs - iron studies, Vitamin B12, folate, retic count, haptoglobin, copper, Melissa (D+I). Possible underlying MDS as well. If iron deficient, can administer Venofer GI evaluation planned 2. Thrombocytopenia - Review smear to rule out plt clumping. Possible underlying MDS No indication for BM bx at this time Observe 3. Black stools EGD was negative Small bowel follow through planned per GI If patient is discharged, please schedule f/u with Dr. Isaacs Thank you Review of Systems Eyes: Comments: No discharge Respiratory: Comments: No SOB Gastrointestinal: Comments: Denies black stools Genitourinary: Comments: No hematuria PMFSH Past Medical History Medical History (Updated 02/23/25 @ 11:33 by Arlene Echeverria MD) Gastric AVM Melena Acute on chronic anemia Anxiety and depression DVT (deep venous thrombosis) COPD with emphysema Anemia in ESRD (end-stage renal disease) LINNETTE (iron deficiency anemia) End-stage renal disease on hemodialysis Tuesday. Dialysis managed by Dr. Joshua Motley Peripheral arterial disease Cardiomyopathy Presumed ischemic with moderately sized moderately severe reversible defect and small mild non reversible infarct on Lexiscan stress on 09/12/2020. Combined systolic and diastolic congestive heart failure Echocardiogram on 09/10/2020 EF of 20 to 25%, grade 1 diastolic dysfunction, reduced RV systolic function. 12/2020 echo EF 40-46% with segmental wall motion abnormalities Hypertension Hypertensive cardiomegaly Hyperparathyroidism due to ESRD on dialysis Hyperlipidemia Surgical History Surgical History History of tonsillectomy Surgically constructed arteriovenous fistula Left upper arm History of colonoscopy History of colon polyps, internal hemorrhoids, and diverticulosis. History of esophagogastroduodenoscopy History of gastric erosions, gastric polyps, and duodenal AVMs. History of revascularization procedure of lower extremity (10/2019) Bilateral lower extremity stents per Dr. Carrillo. History of vascular surgery (06/12/13) Aorto bi-iliac bypass graft per Dr. Carrillo. Family History Family History Mother Alzheimer disease Father Emphysema of lung Social History Social History Social History: Surrogate medical decision maker: Dhaval Allen, hay. Code status: Full code. Smoking packs per day: 0.5 Smoking cigarettes per day: 10.0 Years smoked: 53 Smoking pack-years: 26.50 Smoking status: Former smoker Tobacco type: cigarettes Second hand tobacco smoke exposure: Yes Smoking end date: 09/20/74 Alcohol intake: former Substance use: never Substance use type: does not use Do You Feel Safe in your Home?: Yes Lack of Transportation: No Lack of Food: Never True Current Housing: I Have Housing Concerned About Future Housing: No Difficulty Paying Gas/Electric Bills: No Difficulty Paying for Meds: No Currently Unemployed: No Education: Bachelor's Degree Difficulty w/ Childcare or Family Care: No Additional living arrangements comments: . Lives with her only son in [place]. Additional occupation/education comments: Retired from the [employer]. Spiritual care concerns: No Meds Home Medications and Allergies Home Medications ?Medication ?Instructions ?Recorded ?Confirmed ?Type aspirin 81 mg tablet 81 mg PO DAILY 05/10/20 02/20/25 History isosorbide mononitrate 30 mg 30 mg PO DAILY #30 tabs 09/20/20 02/20/25 Rx tablet,extended release 24 hr melatonin 3 mg tablet 3 mg PO HS PRN Sleep 12/08/22 02/20/25 History omeprazole 40 mg capsule,delayed 40 mg PO DAILY 12/08/22 02/20/25 History release oxybutynin chloride 5 mg tablet 5 mg PO HS 12/08/22 02/20/25 History trazodone 50 mg tablet 50 mg PO HS 12/08/22 02/20/25 History ergocalciferol (vitamin D2) 1,250 50,000 unit PO WEEKLY 10/11/23 02/20/25 History mcg (50,000 unit) capsule atorvastatin 80 mg tablet 80 mg PO HS 03/10/24 02/20/25 History lisinopril 40 mg tablet 40 mg PO QPM 08/21/24 02/20/25 History nifedipine 60 mg tablet,extended 60 mg PO Q12H 08/21/24 02/20/25 History release folic acid 1 mg tablet 1 mg PO DAILY #30 tabs 01/27/25 02/20/25 Rx ticagrelor 90 mg tablet 90 mg PO Q12H 02/20/25 02/20/25 History Allergies Allergy/AdvReac Type Severity Reaction Status Date / Time Penicillins Allergy Unknown Unknown,Ham Verified 02/20/25 12:56 h Vital Signs Vital Signs - 24 hr 02/22/25 10:50 02/22/25 11:45 02/22/25 11:55 Temperature 37.0 C Pulse Rate 72 77 70 Respiratory Rate 16 22 H 18 Blood Pressure 152/47 H 145/58 H 131/52 L Pulse Oximetry 97 98 100 Oxygen Delivery Room Air Nasal Cannula Nasal Cannula Oxygen Flow Rate 4 2 02/22/25 12:00 02/22/25 12:05 02/22/25 14:00 Temperature 36.2 C L Pulse Rate 83 65 65 Respiratory Rate 22 H 18 Blood Pressure 132/53 L 144/65 H Pulse Oximetry 100 10 L Oxygen Delivery Room Air Oxygen Flow Rate 02/22/25 14:25 02/22/25 16:00 02/22/25 20:00 Temperature Pulse Rate 76 83 Respiratory Rate Blood Pressure Pulse Oximetry 100 Oxygen Delivery Room Air Oxygen Flow Rate 02/22/25 20:43 02/23/25 00:00 02/23/25 04:00 Temperature 36.8 C Pulse Rate 90 84 77 Respiratory Rate 18 Blood Pressure 162/46 H Pulse Oximetry 99 Oxygen Delivery Oxygen Flow Rate 02/23/25 04:58 Temperature 36.6 C Pulse Rate 97 Respiratory Rate 18 Blood Pressure 140/39 L Pulse Oximetry 95 Oxygen Delivery Oxygen Flow Rate Exam Const: Other: Thin elderly female who looks her stated age HENMT: Other: No oral lesions Eyes: Other: Irritated conjunctivae bilaterally. No scleral icterus Resp: Other: Bilateral air entry Cardio: Other: RRR GI: Other: Soft, NT. BS nl. Skin: Other: Dry Neuro: Other: Grossly nonfocal Extrem: Other: No edema. Fistula LUE Results Labs 02/23/25 05:30 02/23/25 05:30 Labs: Short CBC 02/23/25 Range/Units 05:30 WBC 12.3 H (4.5-10.0) K/mm3 Hgb 9.7 L (12.0-15.0) g/dL Hct 29.2 L (37.0-47.0) % Plt Count 114 L (150-375) k/mm3 BMP 02/23/25 05:30 Sodium 133 L Potassium 4.5 Chloride 102 Carbon Dioxide 25 BUN 60 H D Creatinine 3.27 H Glucose 74 Calcium 8.8 Liver Function 02/23/25 Range/Units 05:30 Total Bilirubin 0.5 (0.2-1.3) mg/dL AST 21 (14-36) U/L ALT 10 (6-35) U/L Alkaline Phosphatase 89 (38-126) U/L Albumin 2.8 L (3.5-5.1) g/dL
[2025-02-23] MEDS: EPOETIN ALFA-EPBX 20,000 UNITS/ML VIAL 20000 UNITS IV PUSH (11:09)
[2025-02-23 11:46] LABS: Immature Reticulocyte Fraction 10.2 % (3.0-15.9); Reticulocyte Hemoglobin Conten 29.2 pg (28.2-36.6); Reticulocytes Absolute 0.11 10^6/uL (0.02-0.10)
[2025-02-23 11:52] LABS: Iron 38 ug/dL (37-170)
[2025-02-23 12:01] LABS: Percent Iron Saturation 20 % (20-50)
--- NOTE | 2025-02-23 12:11 | P.PNNP_ITS ---
Progress Note: A&P Assessment and Plan (1) End stage renal disease: Code(s): N18.6 - End stage renal disease Status: Chronic Assessment and Plan: * HD today * continue T/T/S dialysis schedule while hospitalized * follow electrolytes, volume status, and clearance (2) Anemia: Qualifiers: Anemia type: unspecified type Qualified Code(s): D64.9 - Anemia, unspecified Code(s): D64.9 - Anemia, unspecified Status: Acute Assessment and Plan: * as noted by admission labs * partly related to ESRD but cannot discount other etiologies given severity * anemia studies noted - evidence of iron deficiency * guaiac stool positive * seen by Gastroenterology: * s/p EGD (on 02/22) with no significant findings * high dose Epogen with HD * PRBC transfusion per protocol * Hematology recommendations noted * follow trend of H/H (3) CHF (congestive heart failure): Qualifiers: Heart failure type: combined systolic and diastolic Heart failure chronicity: acute on chronic Qualified Code(s): I50.43 - Acute on chronic combined systolic (congestive) and diastolic (congestive) heart failure Code(s): I50.9 - Heart failure, unspecified Status: Chronic Assessment and Plan: * known history * however, no evidence of exacerbation * last Echo (10/02/24) noted: * left ventricular ejection fraction is visually estimated to be 60 - 65% * severe concentric left ventricular hypertrophy * right ventricle is normal in size and systolic function * no aortic regurgitation * mild mitral regurgitation * mild tricuspid regurgitation * admission CXR noted in comparison to CXR about a month ago... * continue fluid removal with HD as tolerated in an effort to achieve euvolemia * follow volume status (4) Hypertension: Qualifiers: Hypertension type: secondary to other renal disorders Qualified Code(s): I15.1 - Hypertension secondary to other renal disorders Code(s): I10 - Essential (primary) hypertension Status: Chronic Assessment and Plan: * better control * poor BP control at baseline * restarted on home medications * PRN IV medications if needed * follow trend of hemodynamics (5) Ground-level fall: Code(s): W18.30XA - Fall on same level, unspecified, initial encounter Status: Acute Assessment and Plan: * noted on admission * no acute injury by imaging studies * reportedly secondary to BLE weakness presumably precipitated by anemia * fall precautions * pain control * PT/OT as tolerated (6) COPD (chronic obstructive pulmonary disease): Qualifiers: COPD type: unspecified COPD Qualified Code(s): J44.9 - Chronic obstructive pulmonary disease, unspecified Code(s): J44.9 - Chronic obstructive pulmonary disease, unspecified Status: Chronic Assessment and Plan: * known history * no evidence of exacerbation * use nebulizer treatments PRN Will continue to follow. L Subjective Date/time seen: 02/23/25 12:11 Interval history: Follow-up for end stage renal disease on hemodialysis. Tolerating hemodialysis treatment at the time of my visit (seen on HD at 12:00pm); H/H relatively stable at this time; s/p EGD yesterday with findings noted; no apparent distress noted other than some mild nausea at this time; no events overnight or earlier this morning. Exam 2 Narrative: General: thin and somewhat frail female in NAD Heart: normal S1 and S2; no rub Lungs: coarse breath sounds; decreased at bases Abdomen: soft, nontender, nondistended, positive bowel sounds Extremities: no cyanosis or clubbing; no edema Skin: no nodules Objective Data Vital Signs Vital Signs: Vital Signs Temp Pulse Resp BP Pulse Ox O2 Del Method 02/23/25 12:00 75 126/50 L 02/23/25 11:45 74 117/48 L 02/23/25 11:30 73 116/50 L 02/23/25 11:15 73 119/43 L 02/23/25 11:00 77 100/43 L 02/23/25 10:45 79 109/48 L 02/23/25 10:30 78 118/79 02/23/25 10:15 75 116/46 L 02/23/25 10:00 74 124/73 02/23/25 09:45 74 119/49 L 02/23/25 09:30 75 126/45 L 02/23/25 09:15 72 124/50 L 02/23/25 09:05 74 125/49 L 02/23/25 08:50 100.4 F H 76 16 135/50 L 90 02/23/25 08:00 86 02/23/25 08:00 Room Air 02/23/25 04:58 97.9 F 97 18 140/39 L 95 02/23/25 04:00 77 02/23/25 00:00 84 02/22/25 20:43 98.3 F 90 18 162/46 H 99 02/22/25 20:00 83 Intake/Output Intake/Output: Intake & Output 02/20/25 02/21/25 02/22/25 02/23/25 23:59 23:59 23:59 23:59 Intake Total 1070 1610 1480.0 420 Output Total 137 0 1650 Balance 1070 1473 1480.0 -1230 Meds/Results Medications: Active Medications Generic Name Dose Route Start Last Admin Trade Name Freq PRN Reason Stop Dose Admin Acetaminophen 650 mg 02/21/25 01:42 02/22/25 14:17 Acetaminophen 325 Mg Tablet PO 650 mg Q4H PRN Administration Mild Pain (1-3) or Fever Aspirin 81 mg 02/21/25 09:00 02/23/25 15:37 Aspirin 81 Mg Chewable Tablet PO 81 mg DAILY BRANDON Administration Atorvastatin Calcium 80 mg 02/20/25 21:00 02/22/25 21:46 Atorvastatin 40 Mg Tablet PO 80 mg HS BRANDON Administration Ergocalciferol 1,250 mcg 02/25/25 09:00 Ergocalciferol (Vitamin D2) 1,250 Mcg (50,000 Units) Capsule PO Mo@0900 BRANDON Folic Acid 1 mg 02/21/25 09:00 02/23/25 15:36 Folic Acid 1 Mg Tablet PO 1 mg DAILY BRANDON Administration Hydralazine HCl 10 mg 02/20/25 15:31 02/20/25 23:30 Hydralazine Hcl 20 Mg/Ml Vial IV PUSH 10 mg Q8H PRN Administration Blood Pressure - High, >180/90 Albumin Human 50 mls @ 999 mls/hr 02/20/25 17:17 Albutein IVPB 03/22/25 17:16 Q10M PRN HYPOTENSION Isosorbide Mononitrate 30 mg 02/21/25 09:00 02/23/25 15:36 Isosorbide Mononitrate 30 Mg Tab.Er.24h PO 30 mg DAILY BRANDON Administration Lidocaine 1 patch 02/21/25 22:10 02/23/25 15:38 Lidocaine 5% Patch TRANSDERM 1 patch DAILY BRANDON Administration Lidocaine/Prilocaine 1 each 02/21/25 07:55 02/23/25 08:12 Lidocaine/Prilocaine Cream 2.5-2.5% Tube TOPICAL 1 each DAILY PRN Administration dialysis Lisinopril 40 mg 02/20/25 18:00 02/22/25 17:12 Lisinopril 20 Mg Tablet PO 40 mg QPM BRANDON Administration Melatonin 3 mg 02/20/25 15:40 02/21/25 22:25 Melatonin 3 Mg Tablet PO 3 mg HS PRN Administration Sleep Nifedipine 60 mg 02/20/25 21:00 02/23/25 15:37 Nifedipine 30 Mg Tab.Er.24 PO 60 mg Q12HR BRANDON Administration Oxybutynin Chloride 5 mg 02/20/25 21:00 02/22/25 21:46 Oxybutynin Chloride 5 Mg Tablet PO 5 mg HS BRANDON Administration Ticagrelor 90 mg 02/20/25 21:00 02/22/25 03:49 Ticagrelor 90 Mg Tablet PO Not Given Q12H BRANDON Tramadol HCl 25 mg 02/22/25 13:53 02/23/25 15:21 Tramadol Hcl (*Crx) 25 Mg Tablet PO 25 mg Q6H PRN Administration Pain Rated 6 or Greater Trazodone HCl 50 mg 02/20/25 21:00 02/22/25 21:46 Trazodone Hcl 50 Mg Tablet PO 50 mg HS BRANDON Administration Radiology Results: ITS Impressions Chest X-Ray 02/20/25 09:07 Impression: CHF superimposed probable pneumonia. The findings appear relatively unchanged compared to the previous study 01/26/2025 Lumbar Spine X-Ray 02/20/25 09:08 Impression: No acute abnormality. Labs Labs: Laboratory Tests 02/23/25 05:30 02/23/25 05:30 Calcium 8.8 Iron 38 TIBC 192 L % Saturation 20 Total Bilirubin 0.5 AST 21 ALT 10 Alkaline Phosphatase 89 Total Protein 5.4 L Albumin 2.8 L Vitamin B12 756.0 Folate 7.5 NEETU, IgG Interpret Neg NEETU, Poly Interpret Negative NEETU, Complement Interp Not Performed Indirect Antiglob Test Negative
[2025-02-23 13:02] LABS: Vitamin B12 756.0 pg/mL (239-931)
[2025-02-23] MEDS: traMADol HCL (*CRX) 25 MG TABLET PO (15:21)
[2025-02-23] MEDS: ISOSORBIDE MONONITRATE 30 MG TAB.ER.24H PO (15:36)
[2025-02-23] MEDS: FOLIC ACID 1 MG TABLET PO (15:36)
[2025-02-23] MEDS: ASPIRIN 81 MG CHEWABLE TABLET PO (15:37)
[2025-02-23] MEDS: LIDOCAINE 5% PATCH 1 PATCH TRANSDERM (15:38)
--- NOTE | 2025-02-23 16:11 | PC.NURSE ---
This RN, Shanti Murillo, has reviewed assessment documentation by Shari Askew, ELLIOTT, and agree with the findings. 02/23/25.
[2025-02-23] MEDS: ATORVASTATIN 40 MG TABLET 80 MG PO (21:13)
[2025-02-23] MEDS: TICAGRELOR 90 MG TABLET PO (21:13)
[2025-02-24] VITALS: PULSE 81
[2025-02-24 04:00] VITALS: PULSE 83
[2025-02-24 04:15] VITALS: BP 150/42; PULSE 77; RESP 15; TEMP 36.4; O2SAT 90
[2025-02-24 06:19] LABS: Hematocrit 33.0 % (37.0-47.0); Hemoglobin 10.9 g/dL (12.0-15.0); Immature Granulocyte Percent A 1.4 % (0-0.5); Lymphocytes Absolute Auto 0.66 K/mm3 (0.9-3.2); Mean Corpuscular HGB Conc 33.0 g/dl (32-36); Mean Corpuscular Hemoglobin 30.0 pg (26-34); Mean Corpuscular Volume 90.9 fl (80-100); Nucleated Red Blood Cells Absolute Auto 0.080 K/mm3 (0.0-0.012); Nucleated Red Blood Cells Perc 0.7 % (0.0-0.2); Platelet Count Result 106 k/mm3 (150-375); Red Blood Count 3.63 M/mm3 (4.2-5.4); White Blood Count 11.8 K/mm3 (4.5-10.0)
[2025-02-24 06:34] LABS: Alanine Aminotransferase 9 U/L (6-35); Albumin Level 3.0 g/dL (3.5-5.1); Alkaline Phosphatase 106 U/L (38-126); Anion Gap 3 mmol/L (4-12); Aspartate Amino Transferase 22 U/L (14-36); Bilirubin,Total 0.6 mg/dL (0.2-1.3); Blood Urea Nitrogen 34 mg/dL (7-17); Calcium 8.1 mg/dL (8.4-10.2); Carbon Dioxide 30 mmol/L (22-30); Chloride 98 mmol/L (98-107); Estimated Glomerular Filt Rate 17; Glucose 81 mg/dL (65-110); Potassium 4.1 mmol/L (3.4-5.0); Sodium 131 mmol/L (137-145); Total Protein 5.9 g/dL (6.3-8.2)
[2025-02-24] MEDS: ISOSORBIDE MONONITRATE 30 MG TAB.ER.24H PO (08:21)
[2025-02-24] MEDS: ASPIRIN 81 MG CHEWABLE TABLET PO (08:21)
[2025-02-24] MEDS: FOLIC ACID 1 MG TABLET PO (08:22)
[2025-02-24] MEDS: TICAGRELOR 90 MG TABLET PO (08:22)
[2025-02-24] MEDS: LIDOCAINE 5% PATCH 1 PATCH TRANSDERM (08:23)
--- NOTE | 2025-02-24 08:39 | PM.IMPN ---
Progress Note: A&P Assessment and Plan (1) Anemia in ESRD (end-stage renal disease): Code(s): N18.6 - End stage renal disease; D63.1 - Anemia in chronic kidney disease Status: Acute Assessment and Plan: Patient has history of chronic anemia secondary to ESRD and iron deficiency anemia. Had scheduled transfusion for today at [facility]?, 02/20. Seen yesterday on 02/19 for generalized weakness. Found to be anemic at that time, however elected to leave AMA verses admission for transfusions. Has received 1 transfusion at this time, receiving 2nd transfusion. Denies previous history of requiring transfusions. However, per chart review has received blood transfusions in April of 2020 and January of 2025. Patient also noted to have dark tarry stools, however she denied. Believe she may be on iron supplement, however reviewed home medications and no iron supplement listed. - Hgb with 5.4 upon admission on 02/20 - transfuse if <7 - trend H&H - check iron, TIBC, TSH, ferritin, B12, folic acid. - check stool occult, add pantoprazole while awaiting results 02/21: Pt with x2 large melanic BMs during HD, positive occult blood test -Received 2 units of PRBCs on 02/20 TIBC 180, all other labs WDL for pt -Hgb this AM 7.3, repeating H/H after melena episodes= 6.4/18.7 -->Ordered x2 units PRBCs to be transfused. -GI consulted today for suspected bleed, plans for EGD in the AM. -Will continue to transfuse if hgb <7 02/22: Pt with no other melenic BMs. -Hgb 9.4 this AM, will continue to trend labs -EGD performed today with no bleed found -Heme consulted for further recommendations and workup 02/23: Pt with no other melenic BMs. Denies abd pain. +Nauseous in HD today, adrvin conde ordered -Hgb 9.7 today, continue to trend -Heme consulted for further recommendations and workup, but per neph, pt already receives Epogen and IV iron with dialysis as an outpatient as well as during her acute hospitalizations -->Heme recs/planDraw labs - iron studies, Vitamin B12, folate, retic count, haptoglobin, copper, Melissa (D+I). Possible underlying MDS as well. If iron deficient, can administer Venofer. Review smear to rule out plt clumping. Possible underlying MDS. No indication for BM bx at this time -Pt on Brilinta for PVD and this has been held since her procedure yesterday 02/22, spoke to Dr. Gramajo with GI today and OK to restart today 02/24: -Hgb 10.9 today, continue to trend (2) Elevated troponin: Code(s): R79.89 - Other specified abnormal findings of blood chemistry Status: Acute Assessment and Plan: Initial troponin 0.040. Will check 3 and 6 hour. Reviewed the EKGs completed in the ED. Did show some ST depression in V3, however most recent EKG shows resolving depressions. Elevated troponin likely related to patient's ESRD/acute on chronic anemia. Appears to be improving with transfusion. No active chest pain. Continue to trend troponins. Add telemetry. 02/21: Pt continues to deny CP and SOB. Tele 96bpm today -Continue ASA 81mg daily 02/22: Continues to deny CP/SOB or any other sx. (3) Ground-level fall: Code(s): W18.30XA - Fall on same level, unspecified, initial encounter Status: Acute Assessment and Plan: Sustained a ground level fall this morning on 02/20. Reports low back pain post fall. Fall secondary to bilateral lower extremity weakness, likely related to acute on chronic anemia. Lumbar XR showed no acute abnormality, does have dextro convex scoliosis, grade 1 anterolisthesis of L4 on L5, moderate loss of disc at L4-5 and L5-S1. Add fall precautions. 02/22: Pt c/o lower back pain. -Medications limited due to EGD procedure today, Flexeril 5mg PO ordered 02/23: Pt reporting that her back pain is better today -Ordered tramadol PRN yesterday (4) Acute on chronic combined systolic and diastolic CHF (congestive heart failure): Code(s): I50.43 - Acute on chronic combined systolic (congestive) and diastolic (congestive) heart failure Status: Acute Assessment and Plan: History of combined systolic and diastolic heart failure with reduced EF. Most recent echo from September of 2024 showed normal systolic function, estimated EF 60 65%, severe LVH, valvular disease. No hypoxia per review of vital signs. No subjective shortness of breath, cough, or URI symptoms. Reviewed CXR compared to CXR completed on 01/26/2025, small right pleural effusion still present, slightly increased. Pulmonary edema generally improved but still present. No appreciable focal consolidation. Patient's volume status managed via dialysis which he receives Tuesdays, , Saturdays. No recent missed treatments. Monitored toleration of transfusions. Nephrology consulted for inpatient HD. 02/21: Pt dialyzed today, treatment cut short due to melena episodes, will continue labs and HD schedule as well as CHF sx 02/22: Pt fluid status stable, denies CP/SOB. 02/23: HD today (5) ESRD on hemodialysis: Code(s): N18.6 - End stage renal disease; Z99.2 - Dependence on renal dialysis Status: Chronic Assessment and Plan: History of ESRD on HD, Tuesdays//Saturdays. No recent missed treatments. Mild pulmonary edema on CXR, no hypoxia or subjective shortness of breath. Nephrology consulted for inpatient dialysis. Receiving 2 units of PRBC. Monitor electrolytes. -See above (6) COPD (chronic obstructive pulmonary disease): Qualifiers: COPD type: unspecified COPD Qualified Code(s): J44.9 - Chronic obstructive pulmonary disease, unspecified Code(s): J44.9 - Chronic obstructive pulmonary disease, unspecified Status: Chronic Assessment and Plan: History of COPD, currently stable. No wheezing or crackles on exam. No hypoxia. (7) Hypertension: Qualifiers: Hypertension type: secondary to other renal disorders Qualified Code(s): I15.1 - Hypertension secondary to other renal disorders Code(s): I10 - Essential (primary) hypertension Status: Chronic Assessment and Plan: Who reported the bedside RN that she has not taken her home medications for the past 2 days, however she reports compliance with her medications at time of in-patient interview. Hypertensive this afternoon at 203/55. Will resume home antihypertensives including Imdur, lisinopril, nifedipine. Hydralazine p.r.n. for BP greater than 180/90. Monitor. 02/21: BP much better on morning read after home meds administered, 145/48, will continue to monitor 02/22: 130's/50's. Stable. Will continue to assess daily. (8) Hyperlipidemia: Qualifiers: Hyperlipidemia type: unspecified Qualified Code(s): E78.5 - Hyperlipidemia, unspecified Code(s): E78.5 - Hyperlipidemia, unspecified Status: Chronic Assessment and Plan: Continue atorvastatin 80 mg daily. Plan Diet: Renal/low Na diet GI Prophylaxis: Pantoprazole DVT Prophylaxis: SCDs IV fluids: None Lines/Tubes: Peripheral IV, left forearm HD fistula Code Status: Full code Disposition: Pending lab trends, heme labs, and SNF placement Time Spent With Patient Time: 45 Subjective Date/time seen: 02/24/25 Interval history: Pt evaluated during HD. Pt resting in bed upon my arrival. Pt reporting that her back pain is better. Pt denies additional melena episodes. C/o nausea while in HD, Zofran ODT ordered. Review of Systems Review of Systems: All systems reviewed & are unremarkable except as noted in HPI and below Exam Const: General: comfortable and no acute distress Other: , female, elderly, nontoxic appearance HENMT: Face/Nose/Sinus: Normal nares present Mouth: Yes moist mucous membranes Eyes: General: appearance normal, both eyes and all related structures Sclera: sclerae normal Neck: Neck: supple Resp: Effort & Inspection: normal respiratory effort Auscultation: clear to auscultation bilaterally Cardio: Rate: regular rate Rhythm: regular rhythm Other: S1-S2 present without murmur, rub, ectopy GI: Other: Abdomen soft, nondistended, no TTP. Normoactive bowel sounds in all quadrants. Back/Spine/Pelvis: Back: back tenderness (paraspinal bilaterally ttp, more mild today) Skin: General skin exam: normal color and no rashes or lesions noted Wounds: no wounds Neuro: Speech: normal speech Motor exam (neuro): Normal motor muscle tone present throughout Sensory Exam: normal sensation Other: A&O x4 Extrem: General: normal to inspection Other: Left upper extremity fistula has +thrill and bruit Psych: Mental Status: mental status grossly normal Affect: normal affect Other: Fair insight and judgment Objective Data Vital Signs Vital Signs: Vital Signs - 24 hr 02/23/25 08:50 02/23/25 09:05 02/23/25 09:15 Temperature 100.4 F H Pulse Rate 76 74 72 Respiratory Rate 16 Blood Pressure 135/50 L 125/49 L 124/50 L Pulse Oximetry 90 Oxygen Delivery 02/23/25 09:30 02/23/25 09:45 02/23/25 10:00 Temperature Pulse Rate 75 74 74 Respiratory Rate Blood Pressure 126/45 L 119/49 L 124/73 Pulse Oximetry Oxygen Delivery 02/23/25 10:15 02/23/25 10:30 02/23/25 10:45 Temperature Pulse Rate 75 78 79 Respiratory Rate Blood Pressure 116/46 L 118/79 109/48 L Pulse Oximetry Oxygen Delivery 02/23/25 11:00 02/23/25 11:15 02/23/25 11:30 Temperature Pulse Rate 77 73 73 Respiratory Rate Blood Pressure 100/43 L 119/43 L 116/50 L Pulse Oximetry Oxygen Delivery 02/23/25 11:45 02/23/25 12:00 02/23/25 12:00 Temperature Pulse Rate 74 75 77 Respiratory Rate Blood Pressure 117/48 L 126/50 L Pulse Oximetry Oxygen Delivery 02/23/25 12:20 02/23/25 12:25 02/23/25 13:20 Temperature 99.7 F H Pulse Rate 73 73 Respiratory Rate 16 Blood Pressure 110/46 L 132/49 L Pulse Oximetry 90 Oxygen Delivery Room Air 02/23/25 14:00 02/23/25 16:00 02/23/25 20:00 Temperature 97.4 F L Pulse Rate 81 82 Respiratory Rate 14 Blood Pressure 156/54 H Pulse Oximetry 96 Oxygen Delivery Room Air 02/23/25 20:00 02/23/25 20:13 02/24/25 00:00 Temperature 98.5 F Pulse Rate 83 82 81 Respiratory Rate 16 Blood Pressure 148/42 H Pulse Oximetry 92 Oxygen Delivery 02/24/25 04:00 02/24/25 04:15 Temperature 97.6 F Pulse Rate 83 77 Respiratory Rate 15 Blood Pressure 150/42 H Pulse Oximetry 90 Oxygen Delivery Intake/Output Intake/Output: Intake & Output 02/21/25 02/22/25 02/23/25 02/24/25 23:59 23:59 23:59 23:59 Intake Total 1610 1480.0 420 120 Output Total 137 0 1650 Balance 1473 1480.0 -1230 120 Meds/Results Medications: Active Medications Generic Name Dose Route Start Last Admin Trade Name Freq PRN Reason Stop Dose Admin Acetaminophen 650 mg 02/21/25 01:42 02/22/25 14:17 Acetaminophen 325 Mg Tablet PO 650 mg Q4H PRN Administration Mild Pain (1-3) or Fever Aspirin 81 mg 02/21/25 09:00 02/24/25 08:21 Aspirin 81 Mg Chewable Tablet PO 81 mg DAILY BRANDON Administration Atorvastatin Calcium 80 mg 02/20/25 21:00 02/23/25 21:13 Atorvastatin 40 Mg Tablet PO 80 mg HS BRANDON Administration Ergocalciferol 1,250 mcg 02/25/25 09:00 Ergocalciferol (Vitamin D2) 1,250 Mcg (50,000 Units) Capsule PO Mo@0900 BRANDON Folic Acid 1 mg 02/21/25 09:00 02/24/25 08:22 Folic Acid 1 Mg Tablet PO 1 mg DAILY BRANDON Administration Hydralazine HCl 10 mg 02/20/25 15:31 02/20/25 23:30 Hydralazine Hcl 20 Mg/Ml Vial IV PUSH 10 mg Q8H PRN Administration Blood Pressure - High, >180/90 Albumin Human 50 mls @ 999 mls/hr 02/20/25 17:17 Albutein IVPB 03/22/25 17:16 Q10M PRN HYPOTENSION Isosorbide Mononitrate 30 mg 02/21/25 09:00 02/24/25 08:21 Isosorbide Mononitrate 30 Mg Tab.Er.24h PO 30 mg DAILY BRANDON Administration Lidocaine 1 patch 02/21/25 22:10 02/24/25 08:23 Lidocaine 5% Patch TRANSDERM 1 patch DAILY BRANDON Administration Lidocaine/Prilocaine 1 each 02/21/25 07:55 02/23/25 08:12 Lidocaine/Prilocaine Cream 2.5-2.5% Tube TOPICAL 1 each DAILY PRN Administration dialysis Lisinopril 40 mg 02/20/25 18:00 02/23/25 18:04 Lisinopril 20 Mg Tablet PO 40 mg QPM BRANDON Administration Melatonin 3 mg 02/20/25 15:40 02/21/25 22:25 Melatonin 3 Mg Tablet PO 3 mg HS PRN Administration Sleep Nifedipine 60 mg 02/20/25 21:00 02/24/25 08:22 Nifedipine 30 Mg Tab.Er.24 PO 60 mg Q12HR BRANDON Administration Oxybutynin Chloride 5 mg 02/20/25 21:00 02/23/25 21:13 Oxybutynin Chloride 5 Mg Tablet PO 5 mg HS BRANDON Administration Ticagrelor 90 mg 02/20/25 21:00 02/24/25 08:22 Ticagrelor 90 Mg Tablet PO 90 mg Q12H BRANDON Administration Tramadol HCl 25 mg 02/22/25 13:53 02/23/25 15:21 Tramadol Hcl (*Crx) 25 Mg Tablet PO 25 mg Q6H PRN Administration Pain Rated 6 or Greater Trazodone HCl 50 mg 02/20/25 21:00 02/23/25 21:13 Trazodone Hcl 50 Mg Tablet PO 50 mg HS BRANDON Administration Radiology Results: ITS Impressions Chest X-Ray 02/20/25 09:07 Impression: CHF superimposed probable pneumonia. The findings appear relatively unchanged compared to the previous study 01/26/2025 Lumbar Spine X-Ray 02/20/25 09:08 Impression: No acute abnormality. Labs Labs: Laboratory Results - last 24 hr 02/22/25 02/23/25 02/24/25 03:21 05:30 05:57 WBC 11.8 H RBC 3.63 L Hgb 10.9 L Hct 33.0 L MCV 90.9 MCH 30.0 MCHC 33.0 RDW 15.6 H Plt Count 106 L MPV 9.1 Immature Gran % (Auto) 1.4 H Neut % (Auto) 82.3 H Lymph % (Auto) 5.6 L Clayton % (Auto) 7.5 Eos % (Auto) 2.6 Baso % (Auto) 0.6 Lymph # (Auto) 0.66 L Clayton # (Auto) 0.9 H Eos # (Auto) 0.3 Baso # (Auto) 0.1 Abs Immat Gran (auto) 0.16 H Absolute Neuts (auto) 9.7 H Absolute Nucleated RBC 0.080 H Nucleated RBC % 0.7 H Absolute Retic 0.11 H Percent Retic 3.57 Immature Retic Fraction 10.2 Retic Hgb Content 29.2 Haptoglobin 100 Sodium 133 L 131 L Potassium 4.5 4.1 Chloride 102 98 Carbon Dioxide 25 30 Anion Gap 6 3 L BUN 60 H D 34 H D Creatinine 3.27 H 2.65 H Estim Creat Clear Calc Not Reportable Estimated GFR 14 L 17 L Glucose 74 81 Calcium 8.8 8.1 L Iron 38 TIBC 192 L % Saturation 20 Total Bilirubin 0.5 0.6 AST 21 22 ALT 10 9 Alkaline Phosphatase 89 106 Total Protein 5.4 L 5.9 L Albumin 2.8 L 3.0 L Vitamin B12 756.0 Folate 7.5 NEETU, IgG Interpret Neg NEETU, Poly Interpret Negative NEETU, Complement Interp Not Performed Indirect Antiglob Test Negative Quality VTE Prophylaxis VTE prophylaxis: mechanical ordered
--- NOTE | 2025-02-24 10:41 | PM.DS ---
DS: Admitting Diagnosis Discharge Date 02/24/2025 Admitting Diagnosis Fall, weakness DS: Discharge Diagnosis Discharge Diagnosis (1) Anemia in ESRD (end-stage renal disease): Code(s): N18.6 - End stage renal disease; D63.1 - Anemia in chronic kidney disease Status: Acute Assessment and Plan: Patient has history of chronic anemia secondary to ESRD and iron deficiency anemia. Had scheduled transfusion for today at [place]?, 02/20. Seen yesterday on 02/19 for generalized weakness. Found to be anemic at that time, however elected to leave AMA verses admission for transfusions. Has received 1 transfusion at this time, receiving 2nd transfusion. Denies previous history of requiring transfusions. However, per chart review has received blood transfusions in April of 2020 and January of 2025. Patient also noted to have dark tarry stools, however she denied. Believe she may be on iron supplement, however reviewed home medications and no iron supplement listed. - Hgb with 5.4 upon admission on 02/20 - transfuse if <7 - trend H&H - check iron, TIBC, TSH, ferritin, B12, folic acid. - check stool occult, add pantoprazole while awaiting results 02/21: Pt with x2 large melanic BMs during HD, positive occult blood test -Received 2 units of PRBCs on 02/20 TIBC 180, all other labs WDL for pt -Hgb this AM 7.3, repeating H/H after melena episodes= 6.4/18.7 -->Ordered x2 units PRBCs to be transfused. -GI consulted today for suspected bleed, plans for EGD in the AM. -Will continue to transfuse if hgb <7 02/22: Pt with no other melenic BMs. -Hgb 9.4 this AM, will continue to trend labs -EGD performed today with no bleed found -Heme consulted for further recommendations and workup 02/23: Pt with no other melenic BMs. Denies abd pain. +Nauseous in HD today, darvin conde ordered -Hgb 9.7 today, continue to trend -Heme consulted for further recommendations and workup, but per neph, pt already receives Epogen and IV iron with dialysis as an outpatient as well as during her acute hospitalizations -->Heme recs/planDraw labs - iron studies, Vitamin B12, folate, retic count, haptoglobin, copper, Melissa (D+I). Possible underlying MDS as well. If iron deficient, can administer Venofer. Review smear to rule out plt clumping. Possible underlying MDS. No indication for BM bx at this time -Pt on Brilinta for PVD and this has been held since her procedure yesterday 02/22, spoke to Dr. Gramajo with GI today and OK to restart today 02/24: Pt with no other melenic BMs. Denies abd pain. -Hgb 10.9 today -Heme labs that have resulted are stable, follow-up with heme outpt (2) Elevated troponin: Code(s): R79.89 - Other specified abnormal findings of blood chemistry Status: Acute Assessment and Plan: Initial troponin 0.040. Will check 3 and 6 hour. Reviewed the EKGs completed in the ED. Did show some ST depression in V3, however most recent EKG shows resolving depressions. Elevated troponin likely related to patient's ESRD/acute on chronic anemia. Appears to be improving with transfusion. No active chest pain. Continue to trend troponins. Add telemetry. 02/21: Pt continues to deny CP and SOB. Tele 96bpm today -Continue ASA 81mg daily 02/22: Continues to deny CP/SOB or any other sx. 02/24: Pt continues to deny CP/SOB. (3) Ground-level fall: Code(s): W18.30XA - Fall on same level, unspecified, initial encounter Status: Acute Assessment and Plan: Sustained a ground level fall this morning on 02/20. Reports low back pain post fall. Fall secondary to bilateral lower extremity weakness, likely related to acute on chronic anemia. Lumbar XR showed no acute abnormality, does have dextro convex scoliosis, grade 1 anterolisthesis of L4 on L5, moderate loss of disc at L4-5 and L5-S1. Add fall precautions. 02/22: Pt c/o lower back pain. -Medications limited due to EGD procedure today, Flexeril 5mg PO ordered 02/23: Pt reporting that her back pain is better today -Ordered tramadol PRN yesterday 02/24: Pt denying pain today. -OT/PT recs for SNF pt declines. Pt to go home with HH. Son, [place], at the bedside today and discussed with pt and CC. (4) Acute on chronic combined systolic and diastolic CHF (congestive heart failure): Code(s): I50.43 - Acute on chronic combined systolic (congestive) and diastolic (congestive) heart failure Status: Acute Assessment and Plan: History of combined systolic and diastolic heart failure with reduced EF. Most recent echo from September of 2024 showed normal systolic function, estimated EF 60 65%, severe LVH, valvular disease. No hypoxia per review of vital signs. No subjective shortness of breath, cough, or URI symptoms. Reviewed CXR compared to CXR completed on 01/26/2025, small right pleural effusion still present, slightly increased. Pulmonary edema generally improved but still present. No appreciable focal consolidation. Patient's volume status managed via dialysis which he receives Tuesdays, , Saturdays. No recent missed treatments. Monitored toleration of transfusions. Nephrology consulted for inpatient HD. 02/21: Pt dialyzed today, treatment cut short due to melena episodes, will continue labs and HD schedule as well as CHF sx 02/22: Pt fluid status stable, denies CP/SOB. 02/23: HD today 02/24: Pt to be discharged today, resume HD schedule of //Tue (5) ESRD on hemodialysis: Code(s): N18.6 - End stage renal disease; Z99.2 - Dependence on renal dialysis Status: Chronic Assessment and Plan: History of ESRD on HD, Tuesdays//Saturdays. No recent missed treatments. Mild pulmonary edema on CXR, no hypoxia or subjective shortness of breath. Nephrology consulted for inpatient dialysis. Receiving 2 units of PRBC. Monitor electrolytes. -See above (6) COPD (chronic obstructive pulmonary disease): Qualifiers: COPD type: unspecified COPD Qualified Code(s): J44.9 - Chronic obstructive pulmonary disease, unspecified Code(s): J44.9 - Chronic obstructive pulmonary disease, unspecified Status: Chronic Assessment and Plan: History of COPD, currently stable. No wheezing or crackles on exam. No hypoxia. (7) Hypertension: Qualifiers: Hypertension type: secondary to other renal disorders Qualified Code(s): I15.1 - Hypertension secondary to other renal disorders Code(s): I10 - Essential (primary) hypertension Status: Chronic Assessment and Plan: Who reported the bedside RN that she has not taken her home medications for the past 2 days, however she reports compliance with her medications at time of in-patient interview. Hypertensive this afternoon at 203/55. Will resume home antihypertensives including Imdur, lisinopril, nifedipine. Hydralazine p.r.n. for BP greater than 180/90. Monitor. 02/21: BP much better on morning read after home meds administered, 145/48, will continue to monitor 02/22: 130's/50's. Stable. Will continue to assess daily. (8) Hyperlipidemia: Qualifiers: Hyperlipidemia type: unspecified Qualified Code(s): E78.5 - Hyperlipidemia, unspecified Code(s): E78.5 - Hyperlipidemia, unspecified Status: Chronic Assessment and Plan: Continue atorvastatin 80 mg daily. Plan Pt discharged today to home today with . DS: Summary Hospital Course Reason for hospitalization: Weakness, fall, melena, anemia Hospital Course: The patient is an 79-year-old female with a complex medical history including end-stage renal disease (ESRD) on hemodialysis, chronic anemia (multifactorial, including iron deficiency and anemia of chronic disease), combined systolic and diastolic heart failure, peripheral arterial disease, COPD, hypertension, hyperlipidemia, and a history of gastric AVMs. She presented to the emergency department with generalized weakness and a ground-level fall after her legs gave out while ambulating to the bathroom. She denied loss of consciousness or head trauma but reported mild low back pain. Notably, she had been seen the previous evening for similar complaints and was found to have severe anemia (Hgb 5.3 g/dL), but declined admission and left against medical advice, planning to return for an outpatient transfusion. On admission, she was hemodynamically stable but profoundly anemic (Hgb 5.4 g/dL). She received two units of PRBCs, with subsequent improvement in hemoglobin. During her hospital stay, she had multiple episodes of melena, confirmed by positive stool occult blood testing, and required additional transfusions x2. GI was consulted and performed an EGD, which did not reveal an active bleeding source; her prior history included gastric and duodenal AVMs treated with APC in 2020. Hematology was also consulted for further evaluation of her transfusion-dependent anemia and thrombocytopenia. Workup included iron studies, vitamin B12, folate, reticulocyte count, haptoglobin, and Melissa testing. Labs were notable for iron deficiency (iron 38, TIBC 192, % sat 20), mild thrombocytopenia, and a negative hemolysis workup. Hematology recommended ongoing MAXINE and IV iron therapy with dialysis, as well as continued transfusion support for Hgb <7, and outpatient follow-up for possible underlying myelodysplastic syndrome (MDS). Her hospital course was further complicated by labile blood pressures, with initial severe hypertension that improved with resumption of her home antihypertensives. She remained euvolemic on her regular hemodialysis schedule (//Tue), with nephrology managing her volume status and electrolytes. Cardiac enzymes were mildly elevated on admission, likely secondary to demand ischemia from severe anemia, with no evidence of acute coronary syndrome on serial EKGs or telemetry. She had some residual back pain after initial management, which was treated with acetaminophen and minimal tramadol, not required rx to go home with; pt back to her functional status returned to baseline. She tolerated hemodialysis and transfusions without complications, and her hemoglobin stabilized to 10.9 g/dL at discharge. Throughout her stay, she remained afebrile and without evidence of infection. She was managed with fall precautions, pain control as needed, and supportive care. Discharge planning included home health services, close outpatient follow-up with hematology and her primary care provider, and instructions to return for any recurrent melena, bleeding, or symptoms of decompensation. At discharge, she was stable, back to her baseline functional status, and able to return home with her son and HH. Status at Discharge Overall status at discharge: patient is back to baseline Time Spent with Patient Time attestation: Total time spent providing and/or coordinating discharge services: 45 Exam Narrative: Pt sitting up in bed today, appearing much better and awake Const: General: comfortable and no acute distress Other: , female, elderly, nontoxic appearance HENMT: Face/Nose/Sinus: Normal nares present Mouth: Yes moist mucous membranes Eyes: General: appearance normal, both eyes and all related structures Sclera: sclerae normal Neck: Neck: supple Resp: Effort & Inspection: normal respiratory effort Auscultation: clear to auscultation bilaterally Cardio: Rate: regular rate Rhythm: regular rhythm Other: S1-S2 present without murmur, rub, ectopy GI: Other: Abdomen soft, nondistended, no TTP. Normoactive bowel sounds in all quadrants. Skin: General skin exam: normal color and no rashes or lesions noted Wounds: no wounds Neuro: Cranial nerves: Yes Equal, round and reactive pupils present Speech: normal speech Motor exam (neuro): Normal motor muscle tone present throughout Sensory Exam: normal sensation Other: A&O x4 Extrem: General: normal to inspection Other: Left upper extremity fistula has +thrill and bruit Psych: Mental Status: mental status grossly normal Affect: normal affect Other: Fair insight and judgment DS: Data Data Completed and Pending Completed studies during hospitalization: Labs, urine, imaging Pending studies at discharge: Pending at discharge 02/22/25 11:40 Surgical [PTH] Routine Labs on day of discharge: Labs from last 24 hours 02/24/25 02/23/25 02/22/25 05:57 05:30 03:21 WBC 11.8 H RBC 3.63 L Hgb 10.9 L Hct 33.0 L MCV 90.9 MCH 30.0 MCHC 33.0 RDW 15.6 H Plt Count 106 L MPV 9.1 Immature Gran % (Auto) 1.4 H Neut % (Auto) 82.3 H Lymph % (Auto) 5.6 L [place] % (Auto) 7.5 Eos % (Auto) 2.6 Baso % (Auto) 0.6 Lymph # (Auto) 0.66 L [place] # (Auto) 0.9 H Eos # (Auto) 0.3 Baso # (Auto) 0.1 Abs Immat Gran (auto) 0.16 H Absolute Neuts (auto) 9.7 H Absolute Nucleated RBC 0.080 H Nucleated RBC % 0.7 H Absolute Retic 0.11 H Percent Retic 3.57 Immature Retic Fraction 10.2 Retic Hgb Content 29.2 Haptoglobin 100 Sodium 131 L 133 L Potassium 4.1 4.5 Chloride 98 102 Carbon Dioxide 30 25 Anion Gap 3 L 6 BUN 34 H D 60 H D Creatinine 2.65 H 3.27 H Estim Creat Clear Calc Not Reportable Estimated GFR 17 L 14 L Glucose 81 74 Calcium 8.1 L 8.8 Iron 38 TIBC 192 L % Saturation 20 Total Bilirubin 0.6 0.5 AST 22 21 ALT 9 10 Alkaline Phosphatase 106 89 Total Protein 5.9 L 5.4 L Albumin 3.0 L 2.8 L Vitamin B12 756.0 Folate 7.5 NEETU, IgG Interpret Neg NEETU, Poly Interpret Negative NEETU, Complement Interp Not Performed Indirect Antiglob Test Negative Discharge Plan Discharge Attending physician on discharge: Davey Earl Consulting providers: Asuncion Aviles; Rodolfo Mckeon; Tyler Isaacs Discharging Clinician: Asuncion Aviles Anticipated Discharge Date/Time: 02/24/25 13:00 Patient Disposition: Home with Home Health Service Activity: as tolerated Diet: renal Discharge Instructions: 1. If you have any additional black or bloody stools or any other falls with injury or head trauma report to the ER immediately. 2. Follow-up with hematology (blood specialists) to look into your low blood levels further. 3. Use caution when moving around to prevent further falls, use assistive devices (walker, cane) if recommended, Avoid strenuous activities until cleared by your provider. Continue to check your blood pressure and blood sugar at home if applicable. Keep your scheduled appts with your primary care provider and any specialist that you may see. Return to the emergency department if you develop sudden shortness of breath, chest pain, a fever of greater than 101.5, or nausea, vomiting, abd pain, or diarrhea that does not go away. Follow-up with your primary care provider within 1-2 weeks, they will want to be updated on your inpatient stay in the hospital. Thank you for [facility] for your healthcare needs. Patient Instructions: Anemia (GEN), Fall Prevention (GEN), Melena (GEN) Patient Language: Luxembourgish Stand Alone Forms: General Discharge Information Follow-up/Referrals: Tyler Isaacs MD [Physician, Hematology] - 4 Weeks Referral Note: Possible bone marrow biopsy Problems: Anemia Moore,MEERA Bates [Primary Care Provider, Unknown] - 2 Weeks Discharge Medications: Continued aspirin 81 mg Tablet 81 mg PO DAILY isosorbide mononitrate 30 mg tablet extended release 24 hr 30 mg PO DAILY Qty: 30 0RF trazodone 50 mg tablet 50 mg PO HS omeprazole 40 mg capsule,delayed release(DR/EC) 40 mg PO DAILY oxybutynin chloride 5 mg tablet 5 mg PO HS melatonin 3 mg tablet 3 mg PO HS PRN (Reason: Sleep) ergocalciferol (vitamin D2) 1,250 mcg (50,000 unit) capsule 50,000 unit PO WEEKLY Rx Instructions: on Tuesday atorvastatin 80 mg tablet 80 mg PO HS lisinopril 40 mg tablet 40 mg PO QPM nifedipine 60 mg tablet extended release 60 mg PO Q12H folic acid 1 mg Tablet 1 mg PO DAILY Qty: 30 0RF ticagrelor 90 mg tablet 90 mg PO Q12H Date of admission: 02/21/25 14:49 Primary Care Provider: Teresa,Addie Flanagan Admitting Provider: Davey Earl Attending physician on admission: Davey Earl Condition: Stable Quality VTE Prophylaxis VTE prophylaxis: mechanical ordered Hospitalist MIPS Heart Failure (Exclusion) Patient has history of Heart Transplant or Left Ventricular Assistive Device?: No IF YES, STOP HERE Heart Failure (Qualifier) Patient has current or prior documentation of LVEF less than or equal to 40%, or mod/servere depressed LVSF?: No IF NO, STOP HERE
--- NOTE | 2025-02-24 11:52 | WPDONCPN ---
Subjective Date/time seen: 02/24/25 11:52 Interval history: Alina Allen is a 79 year old female with chronic anemia secondary to ESRD, on dialysis (last done 02/19/25 as an outpatient), as well as iron deficiency anemia. She is currently receiving dialysis today, 02/23/25. She was scheduled for an outpatient transfusion but left the hospital AMA. She came back to the hospital on 02/20/25 and was given 2 units PRBCs. She was found to have dark stools although patient denied this. No oral iron supplementation at this time. The patient reports that she has had iron deficiency her whole life. She has never heard of sickle cell or thalassemia. Per hospital records, she has required transfusions in the past, Apr 2020 and Jan 2025. Labs: (02/20/25): WBC 6.0, Hgb 5.4, Hct 16.6, MCV 87.8, Plt 129 --> tx --> H/H 9.2/27.2 (02/21/25): WBC 8.0, Hgb 7.3, Hct 22.0, Plt 102 --> H/H 6.4/18.8 --> tx (02/22/25): WBC 8.0, Hgb 9.4, Hct 27.5, MCV 90.0, Plt 95 WBC 12.3, Hgb 9.7, Hct 29.2, Plt 114 EGD (02/22/25): The esophagus was examined and the mucosa was normal with a normal Z-line and no ulcers or masses. A small hiatal hernia was found at the GE junction. Moderate diffuse Chronic superficial gastritis was seen in the fundus, in the body of the stomach, and in the antrum. The gastritis had moderate erythematous, edematous and petechiae changes. No active bleeding, no AVMs, neoplasms or ulcers. Four cold forceps biopsies were taken from the antrum and body. The bulb and second portion of duodenum was normal with no ulcers or masses. No AVMs 02/24/25- Patient sitting up in chair feeling well. She is asking to go home. She reports no fever, chills, SOB or CP. No abdominal pain. She has received a total of 4 units of PRBCs. The patient is already receiving high dose EPO and Fe infusions with her dialysis. Labs: (02/23/25): Fe 38 (L), TIBC 192 (L), ferritin pending, Vitamin B12 756, folate 7.5, retic 3.57, Meilssa (D+I) neg. IMPRESSION/PLAN: 1. Anemia - multifactorial including CKD. Possible blood loss Receiving high dose EPO and Fe infusions at dialysis. Possible underlying MDS or ICUS 2. Thrombocytopenia Observe; same DD. 3. Black stools EGD was negative Small bowel follow through planned per GI If patient is discharged, please schedule f/u with Dr. Shital FLEMING bx might be necessary but discussion will need to be held with patient as well as her caregiver. Thank you Objective Data Vital Signs Vital Signs: Vital Signs - 24 hr 02/23/25 12:00 02/23/25 12:00 02/23/25 12:20 Temperature Pulse Rate 75 77 73 Respiratory Rate Blood Pressure 126/50 L 110/46 L Pulse Oximetry Oxygen Delivery 02/23/25 12:25 02/23/25 13:20 02/23/25 14:00 Temperature 37.6 C H 36.3 C L Pulse Rate 73 81 Respiratory Rate 16 14 Blood Pressure 132/49 L 156/54 H Pulse Oximetry 90 96 Oxygen Delivery Room Air 02/23/25 16:00 02/23/25 20:00 02/23/25 20:00 Temperature Pulse Rate 82 83 Respiratory Rate Blood Pressure Pulse Oximetry Oxygen Delivery Room Air 02/23/25 20:13 02/24/25 00:00 02/24/25 04:00 Temperature 36.9 C Pulse Rate 82 81 83 Respiratory Rate 16 Blood Pressure 148/42 H Pulse Oximetry 92 Oxygen Delivery 02/24/25 04:15 02/24/25 08:00 Temperature 36.4 C Pulse Rate 77 Respiratory Rate 15 Blood Pressure 150/42 H Pulse Oximetry 90 Oxygen Delivery Room Air Intake/Output Intake/Output: Intake & Output 02/21/25 02/22/25 02/23/25 02/24/25 23:59 23:59 23:59 23:59 Intake Total 1610 1480.0 420 356 Output Total 137 0 1650 Balance 1473 1480.0 -1230 356 Meds/Results Medications: Active Medications Generic Name Dose Route Start Last Admin Trade Name Freq PRN Reason Stop Dose Admin Acetaminophen 650 mg 02/21/25 01:42 02/22/25 14:17 Acetaminophen 325 Mg Tablet PO 650 mg Q4H PRN Administration Mild Pain (1-3) or Fever Aspirin 81 mg 02/21/25 09:00 02/24/25 08:21 Aspirin 81 Mg Chewable Tablet PO 81 mg DAILY BRANDON Administration Atorvastatin Calcium 80 mg 02/20/25 21:00 02/23/25 21:13 Atorvastatin 40 Mg Tablet PO 80 mg HS BRANDON Administration Ergocalciferol 1,250 mcg 02/25/25 09:00 Ergocalciferol (Vitamin D2) 1,250 Mcg (50,000 Units) Capsule PO Mo@0900 BRANDON Folic Acid 1 mg 02/21/25 09:00 02/24/25 08:22 Folic Acid 1 Mg Tablet PO 1 mg DAILY BRANDON Administration Hydralazine HCl 10 mg 02/20/25 15:31 02/20/25 23:30 Hydralazine Hcl 20 Mg/Ml Vial IV PUSH 10 mg Q8H PRN Administration Blood Pressure - High, >180/90 Albumin Human 50 mls @ 999 mls/hr 02/20/25 17:17 Albutein IVPB 03/22/25 17:16 Q10M PRN HYPOTENSION Isosorbide Mononitrate 30 mg 02/21/25 09:00 02/24/25 08:21 Isosorbide Mononitrate 30 Mg Tab.Er.24h PO 30 mg DAILY BRANDON Administration Lidocaine 1 patch 02/21/25 22:10 02/24/25 08:23 Lidocaine 5% Patch TRANSDERM 1 patch DAILY BRANDON Administration Lidocaine/Prilocaine 1 each 02/21/25 07:55 02/23/25 08:12 Lidocaine/Prilocaine Cream 2.5-2.5% Tube TOPICAL 1 each DAILY PRN Administration dialysis Lisinopril 40 mg 02/20/25 18:00 02/23/25 18:04 Lisinopril 20 Mg Tablet PO 40 mg QPM BRANDON Administration Melatonin 3 mg 02/20/25 15:40 02/21/25 22:25 Melatonin 3 Mg Tablet PO 3 mg HS PRN Administration Sleep Nifedipine 60 mg 02/20/25 21:00 02/24/25 08:22 Nifedipine 30 Mg Tab.Er.24 PO 60 mg Q12HR BRANDON Administration Oxybutynin Chloride 5 mg 02/20/25 21:00 02/23/25 21:13 Oxybutynin Chloride 5 Mg Tablet PO 5 mg HS BRANDON Administration Ticagrelor 90 mg 02/20/25 21:00 02/24/25 08:22 Ticagrelor 90 Mg Tablet PO 90 mg Q12H BRANDON Administration Tramadol HCl 25 mg 02/22/25 13:53 02/23/25 15:21 Tramadol Hcl (*Crx) 25 Mg Tablet PO 25 mg Q6H PRN Administration Pain Rated 6 or Greater Trazodone HCl 50 mg 02/20/25 21:00 02/23/25 21:13 Trazodone Hcl 50 Mg Tablet PO 50 mg HS BRANDON Administration Radiology Results: ITS Impressions Chest X-Ray 02/20/25 09:07 Impression: CHF superimposed probable pneumonia. The findings appear relatively unchanged compared to the previous study 01/26/2025 Lumbar Spine X-Ray 02/20/25 09:08 Impression: No acute abnormality. Labs Labs: Laboratory Results - last 24 hr 02/22/25 02/23/25 02/24/25 03:21 05:30 05:57 WBC 11.8 H RBC 3.63 L Hgb 10.9 L Hct 33.0 L MCV 90.9 MCH 30.0 MCHC 33.0 RDW 15.6 H Plt Count 106 L MPV 9.1 Immature Gran % (Auto) 1.4 H Neut % (Auto) 82.3 H Lymph % (Auto) 5.6 L [place] % (Auto) 7.5 Eos % (Auto) 2.6 Baso % (Auto) 0.6 Lymph # (Auto) 0.66 L [place] # (Auto) 0.9 H Eos # (Auto) 0.3 Baso # (Auto) 0.1 Abs Immat Gran (auto) 0.16 H Absolute Neuts (auto) 9.7 H Absolute Nucleated RBC 0.080 H Nucleated RBC % 0.7 H Haptoglobin 100 Sodium 131 L Potassium 4.1 Chloride 98 Carbon Dioxide 30 Anion Gap 3 L BUN 34 H D Creatinine 2.65 H Estim Creat Clear Calc Not Reportable Estimated GFR 17 L Glucose 81 Calcium 8.1 L Iron 38 TIBC 192 L % Saturation 20 Total Bilirubin 0.6 AST 22 ALT 9 Alkaline Phosphatase 106 Total Protein 5.9 L Albumin 3.0 L Vitamin B12 756.0 Folate 7.5 NEETU, IgG Interpret Neg NEETU, Poly Interpret Negative NEETU, Complement Interp Not Performed Indirect Antiglob Test Negative
[2025-02-24 12:15] VITALS: BP 153/47
== END 2025-02-24 13:40 | disposition home health service (06) | DRG 811 ==
LOC: ANHED 10:26 → ANH3MEDSUR 12:47
PROVIDERS: Internal Medicine Gastroenterology; Internal Medicine Hematology & Oncology; Internal Medicine Nephrology; Student in an Organized Health Care Education/Training Program; Admitting Provider Student in an Organized Health Care Education/Training Program; Emergency Provider Emergency Medicine; PCP Nurse Practitioner Family
PROC: 0DJ08ZZ Inspection of Upper Intestinal Tract, Via Natural or Artificial Opening Endoscopic (ICD-10-PCS; principal; 2025-02-22 12:30)
DX: D50.0 Iron deficiency anemia secondary to blood loss (chronic) (principal); E43 Unspecified severe protein-calorie malnutrition; N18.6 End stage renal disease; I13.2 Hypertensive heart and chronic kidney disease with heart failure and with stage 5 chronic kidney disease, or end stage renal disease; N25.81 Secondary hyperparathyroidism of renal origin; Z68.1 Body mass index [BMI] 19.9 or less, adult; K92.1 Melena; I50.42 Chronic combined systolic (congestive) and diastolic (congestive) heart failure; D63.1 Anemia in chronic kidney disease; K31.819 Angiodysplasia of stomach and duodenum without bleeding; K44.9 Diaphragmatic hernia without obstruction or gangrene; K29.30 Chronic superficial gastritis without bleeding; F41.8 Other specified anxiety disorders; J44.9 Chronic obstructive pulmonary disease, unspecified; I73.9 Peripheral vascular disease, unspecified; D69.6 Thrombocytopenia, unspecified; R79.89 Other specified abnormal findings of blood chemistry; I25.5 Ischemic cardiomyopathy; E78.5 Hyperlipidemia, unspecified; W18.30XA Fall on same level, unspecified, initial encounter; Z86.718 Personal history of other venous thrombosis and embolism; Z87.891 Personal history of nicotine dependence; Z99.2 Dependence on renal dialysis
CPT/HCPCS: 36415; 36430; 71046; 72100; 80053; 81001; 82274; 82607; 82728; 82746; 83010; 83540; 83550; 83735; 84100; 84443; 84484; 85014; 85018; 85025; 85046; 85055; 86706; 86850; 86880; 86900; 86901; 86923; 87340; 87641; 88305; 93005; 96374; 97110; 97162; 97166; 99283; 99291; A9270; G0257; G0378; J0360; J2003; J2470; J2704; J7030; J7040; J7050; P9016; Q5105